=== PATIENT | male | born 1950 | race Caucasian/White ===

== ENCOUNTER 2020-07-28 11:19 | Outpatient (REF) | payer MEDICARE, MEDICAID, SELFPAY ==
[2020-07-29 11:12] LABS: Free Prostate Spec Ag 1.1 ng/mL; Percent Free Prostate Spec Ag 19 % (calc) (>25); Prostate Specific Ag Total 5.9 ng/mL (< OR = 4.0)
== END 2020-07-28 11:20 | disposition home or self-care (01) ==
LOC: HO.HMGCX 11:19
PROVIDERS: PCP Internal Medicine; Visit Provider Urology
DX: N40.1 Benign prostatic hyperplasia with lower urinary tract symptoms (principal); R35.1 Nocturia; Z87.898 Personal history of other specified conditions; Z12.5 Encounter for screening for malignant neoplasm of prostate
CPT/HCPCS: 84153; 84154

== ENCOUNTER → 2020-08-05 14:20 | Outpatient (BNVA) | payer MEDICARE, MEDICAID, SELFPAY | PROVIDERS: PCP Internal Medicine; Visit Provider Urology | DX: N40.1 Benign prostatic hyperplasia with lower urinary tract symptoms (principal); N13.8 Other obstructive and reflux uropathy; R35.1 Nocturia; R97.20 Elevated prostate specific antigen [PSA]; Z79.899 Other long term (current) drug therapy | CPT/HCPCS: 51798; 81002; 99212 ==

== ENCOUNTER 2020-09-27 15:08 | Outpatient (REF) | payer MEDICARE, MEDICAID, SELFPAY ==
[2020-09-27 17:28] LABS: PSA,Total (Free>4and<10) 2.94 ng/mL (0.00-4.00)
== END 2020-09-27 15:09 | disposition home or self-care (01) ==
LOC: HO.HMGCLDS 15:08
PROVIDERS: PCP Internal Medicine; Visit Provider Urology
DX: N40.1 Benign prostatic hyperplasia with lower urinary tract symptoms (principal); N13.8 Other obstructive and reflux uropathy; Z12.5 Encounter for screening for malignant neoplasm of prostate
CPT/HCPCS: 36415; 84153

== ENCOUNTER → 2020-10-06 13:09 | Outpatient (BNVA) | payer MEDICARE, MEDICAID, SELFPAY | PROVIDERS: PCP Internal Medicine; Visit Provider Urology | DX: R39.15 Urgency of urination (principal); R35.1 Nocturia | CPT/HCPCS: Q3014 ==

== ENCOUNTER → 2020-11-03 10:57 | Outpatient (BNVA) | payer MEDICARE, MEDICAID, SELFPAY | PROVIDERS: PCP Internal Medicine; Visit Provider Urology | DX: Z76.89 Persons encountering health services in other specified circumstances (principal) | CPT/HCPCS: Q3014 ==

== ENCOUNTER 2020-12-23 15:15 | Outpatient (REF) | payer MEDICARE, MEDICAID, SELFPAY ==
--- NOTE | ~2020-12-23 | XR_ITS ---
EXAMINATION: XR CHEST CLINICAL INFORMATION: Shortness of breath. Evaluate for pneumonia. COMPARISON: Chest CT February 2020. X-ray February 2020. TECHNIQUE: 2 views of the chest were obtained. FINDINGS: No significant abnormality is noted involving the heart, lungs, mediastinum, bony thorax or soft tissues. XR/XR chest 2V IMPRESSION: Unremarkable examination.
== END 2020-12-23 15:16 | disposition home or self-care (01) ==
LOC: HO.HMGCX 15:15
PROVIDERS: PCP Internal Medicine; Visit Provider Internal Medicine
DX: R06.02 Shortness of breath (principal)
CPT/HCPCS: 71046

== ENCOUNTER → 2021-05-05 15:31 | Outpatient (BNVA) | payer MEDICARE, MEDICAID, SELFPAY | PROVIDERS: PCP Internal Medicine; Visit Provider Urology | DX: R39.15 Urgency of urination (principal); R35.1 Nocturia; R97.20 Elevated prostate specific antigen [PSA] | CPT/HCPCS: 51798; 99212 ==

== ENCOUNTER → 2021-07-11 15:30 | Outpatient (BNVA) | payer MEDICARE, MEDICAID, SELFPAY | PROVIDERS: PCP Internal Medicine; Visit Provider Urology | DX: N52.9 Male erectile dysfunction, unspecified (principal); R39.15 Urgency of urination; R35.1 Nocturia; N40.1 Benign prostatic hyperplasia with lower urinary tract symptoms; N13.8 Other obstructive and reflux uropathy | CPT/HCPCS: 51798; 99212 ==

== ENCOUNTER 2021-08-14 09:21 | Outpatient (REF) | payer MEDICARE, MEDICAID, SELFPAY ==
--- NOTE | ~2021-08-14 | XR_ITS ---
EXAMINATION: XR CHEST CLINICAL INFORMATION: Fatigue. COMPARISON: Chest 12/23/2020 TECHNIQUE: 2 views of the chest were obtained. FINDINGS: The lungs are well-expanded and clear. The heart size and pulmonary vascularity is normal. No gross bony pneumonitis seen. There is cardiac monitoring hardware overlying the left upper chest Since the last study. XR/XR chest 2V IMPRESSION: No acute cardiopulmonary process seen.
[2021-08-14 11:22] LABS: MANUAL DIFF FLAG NO
[2021-08-14 11:53] LABS: Basophils Absolute Auto 0.1 X10*3/uL (0.0-0.2); Basophils Percent Auto 0.7 % (0-2); Eosinophils Absolute Auto 0.3 X10*3/uL (0.0-0.4); Eosinophils Percent Auto 4.1 % (0-4); Hematocrit 35.7 % (42.0-52.0); Hemoglobin 11.1 g/dl (14.0-18.0); Imm Gran Abs Auto 0.04 X10*3/uL (0.00-0.03); Imm Gran Pct Auto 0.5 % (0.0-0.4); Lymphocytes Absolute Auto 1.6 X10*3/uL (1.2-4.9); Lymphocytes Percent Auto 22.1 % (20-40); Mean Corpuscular HGB Conc 31.1 g/dl (31.0-36.0); Mean Corpuscular Hemoglobin 24.6 pg (27.0-33.0); Mean Platelet Volume 11.8 fL (9.4-12.4); Monocytes Absolute Auto 0.8 X10*3/uL (0.1-1.2); Monocytes Percent Auto 10.4 % (2-11); Neutrophils Absolute Auto 4.5 x10*3/uL (2.0-8.3); Neutrophils Percent Auto 62.2 % (45-73); Platelet Count 325 X10*3/uL (160-400); Red Blood Count 4.52 X10*6/uL (4.60-5.80); Red Cell Distribution Width 15.9 % (11.0-16.0); White Blood Count 7.3 X10*3/uL (4.8-10.8)
[2021-08-14 12:20] LABS: Anion Gap 12 (12-20); Blood Urea Nitrogen 18 mg/dL (9-16); Calcium 9.8 mg/dL (8.4-10.2); Carbon Dioxide 27 mmol/L (22-29); Chloride 104 mmol/L (96-108); Estimated Glomerular Filt Rate 48; Glucose Fasting 170 mg/dL (60-99); Potassium 4.3 mmol/L (3.3-5.1); Sodium 139 mmol/L (135-145)
== END 2021-08-14 09:22 | disposition home or self-care (01) ==
LOC: HO.HMGCLDS 09:21
PROVIDERS: Visit Provider Internal Medicine
DX: I50.9 Heart failure, unspecified (principal); R53.83 Other fatigue; E11.9 Type 2 diabetes mellitus without complications; Z79.4 Long term (current) use of insulin
CPT/HCPCS: 36415; 71046; 80048; 85025

== ENCOUNTER 2021-09-07 11:04 | Outpatient (REF) | payer MEDICARE, MEDICAID, SELFPAY ==
--- NOTE | ~2021-09-07 | XR_ITS ---
EXAMINATION: XR CHEST CLINICAL INFORMATION: Hypoxia COMPARISON: August 14, 2021 and December 23, 2020 TECHNIQUE: 2 views of the chest were obtained. FINDINGS: No significant abnormality is noted involving the heart, lungs, mediastinum, bony thorax or soft tissues. XR/XR chest 2V IMPRESSION: No acute disease.
== END 2021-09-07 11:05 | disposition home or self-care (01) ==
LOC: HO.HMGCX 11:04
PROVIDERS: PCP Internal Medicine; Visit Provider Internal Medicine
DX: R09.02 Hypoxemia (principal)
CPT/HCPCS: 71046

== ENCOUNTER 2021-09-28 15:00 | Outpatient (REF) | payer MEDICARE, MEDICAID, SELFPAY ==
--- NOTE | 2021-09-28 | PFT_ITS ---
INDICATION: COPD. SPIROMETRY: FEV1 to FVC of 81% with an FEV1 of 3.18 L which is 104% predicted, an FVC of 3.91 L, which is 94% predicted. No significant response to bronchodilators noted. Maximum voluntary ventilation 115% predicted. LUNG VOLUMES: Total lung capacity 90% predicted with an expiratory reserve volume of 22% predicted, likely secondary to an elevated BMI. DIFFUSION CAPACITY: DLCO 70% predicted. COMPARISONS: None. INTERPRETATION: No obstructive nor restrictive ventilatory defects identified. No significant response to bronchodilators noted. Normal maximum voluntary ventilation. Lung volumes are within normal limits except for decrease in the ERV secondary to an elevated BMI. In addition to that, the patient does have an isolated mild diffusion impairment. Clinical correlation warranted. MD MANDIE Robb/MODGayle / [id number]
== END 2021-09-28 15:01 | disposition home or self-care (01) ==
LOC: HO.RESP 15:00
PROVIDERS: PCP Internal Medicine; Visit Provider Internal Medicine
DX: J44.9 Chronic obstructive pulmonary disease, unspecified (principal); E11.9 Type 2 diabetes mellitus without complications; Z79.4 Long term (current) use of insulin
CPT/HCPCS: 94060; 94727; 94729

== ENCOUNTER → 2022-01-16 15:51 | Outpatient (BNVA) | payer OTHER, SELFPAY | PROVIDERS: PCP Internal Medicine; Visit Provider Urology | DX: N40.1 Benign prostatic hyperplasia with lower urinary tract symptoms (principal); N13.8 Other obstructive and reflux uropathy; R35.1 Nocturia; R39.15 Urgency of urination; N52.9 Male erectile dysfunction, unspecified | CPT/HCPCS: 51798; 99212 ==

== ENCOUNTER 2022-01-31 15:42 | Outpatient (REF) | payer OTHER, SELFPAY ==
--- NOTE | ~2022-01-31 | XR_ITS ---
EXAMINATION: XR FOOT, LEFT CLINICAL INFORMATION: Attention great toe COMPARISON: None TECHNIQUE: AP, lateral, and oblique views of the left foot. FINDINGS: There is hallux valgus deformity first metatarsophalangeal joint with mild periarticular spurring. No visible acute fracture or bony erosive changes. There is mild first MTP joint soft tissue swelling. Rest of the left foot appears unremarkable. The ankle mortise and subtalar joints are normal. There is a moderate size calcaneal heel enthesophyte. There is extensive vascular calcification present. XR/XR foot LT min 3V IMPRESSION: Hallux valgus deformity first MTP joint with mild soft tissue swelling. There is no bony erosive changes or gas seen in the foot or the great toe to suspect any abscess or osteomyelitis. Small calcaneal heel enthesophyte.
== END 2022-01-31 15:43 | disposition home or self-care (01) ==
LOC: HO.XRAY 15:42
PROVIDERS: PCP Internal Medicine; Visit Provider Internal Medicine
DX: M79.672 Pain in left foot (principal)
CPT/HCPCS: 73630

== ENCOUNTER 2022-03-05 09:44 | Outpatient (REF) | payer MEDICARE, SELFPAY ==
--- NOTE | ~2022-03-05 | XR_ITS ---
EXAMINATION: XR FOOT, LEFT CLINICAL INFORMATION: Left great toe pain and redness. COMPARISON: None TECHNIQUE: AP, lateral, and oblique views of the left foot. An indicator arrow points to the distal aspect of the first digit. FINDINGS: There is a mild hallux valgus deformity. Mild first metatarsophalangeal degenerative joint changes are seen. Mild soft tissue swelling is seen medially. The remainder the digits are intact. The tarsal bones are normally aligned. There is a small plantar calcaneal spur. Moderate to severe atherosclerosis is noted. XR/XR foot LT min 3V IMPRESSION: Mild hallux valgus deformity and and likely associated degenerative changes at the first metatarsophalangeal joint as detailed above. No definitive acute abnormality.
== END 2022-03-05 09:45 | disposition home or self-care (01) ==
LOC: HO.HMGCX 09:44
PROVIDERS: Visit Provider Internal Medicine
DX: M79.672 Pain in left foot (principal); E11.9 Type 2 diabetes mellitus without complications; Z79.4 Long term (current) use of insulin
CPT/HCPCS: 73630

== ENCOUNTER 2022-05-03 14:48 | Outpatient (REF) | payer MEDICARE, MEDICAID, SELFPAY ==
--- NOTE | ~2022-05-03 | XR_ITS ---
EXAMINATION: XR FOOT, LEFT CLINICAL INFORMATION: Evaluate for osteomyelitis, attention great toe COMPARISON: 03/05/2022 TECHNIQUE: AP, lateral, and oblique views of the left foot. 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 Mild soft tissue irregularity along the medial aspect of the interphalangeal joint. No cortical erosion or periosteal reaction to suggest osteomyelitis. No significant change. Large heel spur. Diffuse vascular calcifications. No acute osseous abnormality. XR/XR foot LT min 3V IMPRESSION: Hallux valgus and degenerative findings as described. No radiographic evidence of osteomyelitis.
== END 2022-05-03 14:49 | disposition home or self-care (01) ==
LOC: HO.HMGCX 14:48
PROVIDERS: PCP Internal Medicine; Visit Provider Internal Medicine
DX: M19.072 Primary osteoarthritis, left ankle and foot (principal); M20.12 Hallux valgus (acquired), left foot; M77.32 Calcaneal spur, left foot
CPT/HCPCS: 73630

== ENCOUNTER → 2022-06-12 10:55 | Outpatient (REF) | payer MEDICARE, MEDICAID, SELFPAY ==
--- NOTE | ~2022-06-12 | NM_ITS ---
EXAMINATION: THREE PHASE BONE SCAN CLINICAL INFORMATION: Open wound and pain involving the left great toe. Suspected osteomyelitis.. COMPARISON: Radiographs of the left foot done on 05/03/2022.. TECHNIQUE: Initial rapid sequence images were obtained over both feet during the bolus injection of 37 mCi [id number] MDP. Static images of both feet were then obtained 2.75 hours post injection. FINDINGS: On the initial flow sequences, asymmetric increased flow is identified to the region of the medial aspect of the tip of the left first toe. Subsequent blood pool images shows mild asymmetric persistent radiotracer activity overlying the medial aspect of the tip of the left first toe. Delayed images however shows no definite concordant increased radiotracer activity corresponding to the site of the increased flow and increased blood pool activity along the medial aspect of the tip of the left first toe. The findings are consistent with cellulitis. Incidental note is made of multifocal increased radiotracer activities on the delayed phase sequences seen involving bilateral feet, specifically both the first MTP joints and mid tarsal region, and to a lesser extent both knees, most consistent with degenerative and/or posttraumatic arthritic changes. NM/NM bone 3 phase IMPRESSION: 1. Abnormal study showing features most consistent with cellulitis involving the medial aspect of the tip of the left first toe. 2. Incidental note is made of arthritic changes involving first MTP joint and midtarsal regions of both feet and to a lesser extent both knees.
== END ==
LOC: HO.NUCMED 10:55
PROVIDERS: PCP Internal Medicine; Visit Provider Internal Medicine
DX: M86.9 Osteomyelitis, unspecified (principal)
CPT/HCPCS: 78315; A9503

== ENCOUNTER 2022-06-19 08:00 | Outpatient (RCR) | payer MEDICARE, MEDICAID, SELFPAY | END 2022-07-12 14:07 | disposition home or self-care (01) | LOC: HO.WCC 08:00 | PROVIDERS: PCP Internal Medicine; Visit Provider Physician Assistant | DX: E11.621 Type 2 diabetes mellitus with foot ulcer (principal); L97.522 Non-pressure chronic ulcer of other part of left foot with fat layer exposed; E11.40 Type 2 diabetes mellitus with diabetic neuropathy, unspecified; E11.22 Type 2 diabetes mellitus with diabetic chronic kidney disease; I12.9 Hypertensive chronic kidney disease with stage 1 through stage 4 chronic kidney disease, or unspecified chronic kidney disease; N18.9 Chronic kidney disease, unspecified; L84 Corns and callosities; Z86.73 Personal history of transient ischemic attack (TIA), and cerebral infarction without residual deficits; Z86.19 Personal history of other infectious and parasitic diseases | CPT/HCPCS: 97597; 99212 ==

== ENCOUNTER 2022-06-28 12:05 | Outpatient (REF) | payer MEDICARE, MEDICAID, SELFPAY ==
--- NOTE | ~2022-06-28 | XR_ITS ---
EXAMINATION: XR FINGER, LEFT CLINICAL INFORMATION: Swelling. Pain COMPARISON: None TECHNIQUE: 3 views of the left second digit. FINDINGS: Tiny osseous density seen adjacent to the terminal tuft of the second digit on one view possibly related to the volar soft tissues. It could reflect a tiny splinter or foreign body. I do not see an acute fracture. Please correlate with the mechanism of injury. The remainder of the second digit is intact. Alignment normal. Incidental note is made of a cystic or lucent focus at the base of the third metacarpal 8 mm possibly an enchondroma. XR/XR finger LT min 2V IMPRESSION: Possible splinter or radiopaque foreign body in the volar terminal tuft soft tissues
== END 2022-06-28 12:06 | disposition home or self-care (01) ==
LOC: HO.HMGCX 12:05
PROVIDERS: PCP Internal Medicine; Visit Provider Internal Medicine
DX: M79.645 Pain in left finger(s) (principal); M79.89 Other specified soft tissue disorders; Z91.81 History of falling
CPT/HCPCS: 73140

== ENCOUNTER 2022-07-08 08:36 | Emergency (ER) | payer MEDICARE, MEDICAID, SELFPAY ==
--- NOTE | ~2022-07-08 | CT_ITS ---
EXAMINATION: CT ABDOMEN AND PELVIS WITHOUT CONTRAST CLINICAL INFORMATION: Flank pain and hematuria COMPARISON: None TECHNIQUE: Multidetector volumetric imaging was performed from the superior aspect of the liver through the pubic symphysis. Sagittal and coronal reformatted images were obtained on the technologist's workstation. This CT examination was performed using dose optimization techniques as appropriate, variously including the following: *Automated exposure control *Adjustment of mA and/or kV according to patient size (this includes techniques or standardized protocols for targeted exams where dose is matched to indication/reason for exam; i.e. extremities or head) *Use of iterative reconstruction technique DLP: 858 mGy-cm FINDINGS: LUNG BASES: The visualized lung bases are unremarkable. LIVER, GALLBLADDER, AND BILIARY TREE: Liver is of low attenuation due to hepatic steatosis without intrahepatic masses or ductal dilatation seen The gallbladder is unremarkable with no evidence of radiopaque gallstones, gallbladder wall thickening, or obvious pericholecystic inflammatory changes. There is single punctate calcifications in CBD most likely choledocholithiasis. PANCREAS: Unremarkable. SPLEEN: Unremarkable. ADRENAL GLANDS: Unremarkable. KIDNEYS AND URETERS: There is mild perinephric stranding seen bilaterally without evidence of nephrolithiasis or hydroureteronephrosis. BLADDER: Urinary bladder is not completely distended with thick and irregular wall but no evidence of urolithiasis. GASTROINTESTINAL TRACT: The small and large bowel are unremarkable. The appendix is not seen. Scattered diverticula are seen through the sigmoid colon without evidence of diverticulitis. ABDOMINAL WALL: There is small fat-containing umbilical hernia. LYMPH NODES: Normal. VASCULAR: Unremarkable. PELVIC VISCERA: Unremarkable. OSSEOUS STRUCTURES: Patient is status post L3-L4 posterior fusion CT/CT abdomen pelvis wo IV con IMPRESSION: 1. No evidence of nephrolithiasis. 2. Most likely choledocholithiasis with single punctate stone. 3. Diffusely thickened wall of urinary bladder. 4. Postsurgical changes at the level of L3-L4. 5. Hepatic steatosis Fleischner guidelines were followed.
[2022-07-08 08:41] VITALS: BP 126/79; PULSE 100; RESP 19; TEMP 36.6; O2SAT 98; BMI 33.8
[2022-07-08 09:06] LABS: MANUAL DIFF FLAG NO
[2022-07-08 09:07] LABS: Basophils Absolute Auto 0.1 X10*3/uL (0.0-0.2); Basophils Percent Auto 0.4 % (0-2); Eosinophils Absolute Auto 0.3 X10*3/uL (0.0-0.4); Eosinophils Percent Auto 2.3 % (0-4); Hematocrit 42.3 % (42.0-52.0); Hemoglobin 13.8 g/dl (14.0-18.0); Imm Gran Abs Auto 0.04 X10*3/uL (0.00-0.03); Imm Gran Pct Auto 0.4 % (0.0-0.4); Lymphocytes Absolute Auto 1.4 X10*3/uL (1.2-4.9); Lymphocytes Percent Auto 12.6 % (20-40); Mean Corpuscular HGB Conc 32.6 g/dl (31.0-36.0); Mean Corpuscular Hemoglobin 26.4 pg (27.0-33.0); Mean Platelet Volume 11.5 fL (9.4-12.4); Monocytes Percent Auto 8.3 % (2-11); Neutrophils Absolute Auto 8.7 x10*3/uL (2.0-8.3); Platelet Count 247 X10*3/uL (160-400); Red Blood Count 5.22 X10*6/uL (4.60-5.80); Red Cell Distribution Width 14.7 % (11.0-16.0); White Blood Count 11.4 X10*3/uL (4.8-10.8)
[2022-07-08 09:12] LABS: INTERNATIONAL NORM RATIO 1.1 (0.9-1.1); Prothrombin Time 13.1 SEC (10.0-13.1)
[2022-07-08 09:15] LABS: Appearance Urine Turbid; Color Urine Red; Leukocyte Esterase Urine Moderate (2+) (Negative); Nitrite Urine Positive (Negative); PH 5.5 (5.0-9.0); Specific Gravity - Urine >= 1.030 (1.005-1.025); UMIC TRIGGER UACC YES; Urine Blood Large (3+) (Negative); Urine Ketones Negative (Negative); Urine Protein 300 (3+) mg/dL (Neg-Trace)
[2022-07-08 09:20] LABS: Bacteria Urine 4+ (None Seen); Hyaline Casts Urine 0-2 /LPF (0-2); RBC Urine >20 /HPF (0-2); Squamous Epithelial Cell Urine 0-2 /HPF (0-2); UACC Culture Trigger YES; WBC Urine >50 /HPF (0-5)
[2022-07-08 09:43] LABS: Anion Gap 20 (12-20); Blood Urea Nitrogen 22 mg/dL (9-16); Calcium 9.6 mg/dL (8.4-10.2); Carbon Dioxide 21 mmol/L (22-29); Chloride 102 mmol/L (96-108); Creatinine Clr Calc Pharmacy 50.1; Estimated Glomerular Filt Rate 43; Glucose Random 258 mg/dL (60-115); Potassium 4.5 mmol/L (3.3-5.1); Sodium 138 mmol/L (135-145)
--- NOTE | 2022-07-08 11:58 | ED.MALEGU ---
HPI - Male Genitourinary General Chief complaint: Urogenital-Male Stated complaint: Trouble voiding/Hematuria Time Seen by Provider: 07/08/22 11:56 Source: patient and old records reviewed Mode of arrival: ambulatory Limitations: no limitations History of Present Illness HPI Narrative: 71 yo male with hx of BPH, eliquis on DVT, CVA, HLD, DM, comes in with dysuria and urinary frequency - hematuria x 1 day. He states no recent trauma, this has never happened before. Normal routine recently, no catheterizations. No prior kidney stones. MD Complaint: other (hematuria, urinary frequency.) Onset (ago): day(s) (1) Duration: intermittent Location: penis Severity: mild Quality: burning Relieving factors: none Exacerbating factors: urination Associated symptoms: Reports blood in urine and dysuria Related Data Home Medications Medication Instructions Recorded Confirmed apixaban 5 mg tablet 5 mg PO BID 08/05/20 08/05/20 doxazosin 4 mg tablet 4 mg PO DAILY 08/05/20 08/05/20 ketorolac 0.5 % eye drops drp ophthalmic (eye) 08/05/20 08/05/20 lisinopril 2.5 mg tablet 2.5 mg PO DAILY 08/05/20 08/05/20 metoprolol tartrate 25 mg tablet 25 mg PO BID 08/05/20 08/05/20 pantoprazole 40 mg tablet,delayed 40 mg PO DAILY 08/05/20 08/05/20 release atorvastatin 40 mg tablet 40 mg PO DAILY 10/06/20 metformin 1,000 mg tablet 1,000 mg PO BID 10/06/20 insulin glargine 100 unit/mL (3 30 unit subcut BEDTIME 11/03/20 mL) subcutaneous pen empagliflozin 25 mg tablet 25 mg PO DAILY 05/05/21 (Jardiance) finasteride 5 mg tablet 5 mg PO DAILY 05/05/21 fludrocortisone 0.1 mg tablet mg PO 05/05/21 gabapentin 100 mg capsule mg PO TID PRN 05/05/21 midodrine 5 mg tablet mg PO 05/05/21 magnesium oxide 400 mg (241.3 mg 400 mg PO BID 07/11/21 magnesium) tablet empagliflozin 25 mg tablet 25 mg PO DAILY 01/16/22 (Jardiance) potassium chloride 10 mEq 10 meq PO DAILY 01/16/22 tablet,extended release Previous Rx's Medication Instructions Recorded mirabegron 25 mg tablet,extended 25 mg PO DAILY 30 days #30 tabs 05/05/21 release 24 hr (Myrbetriq) tadalafil 20 mg tablet 10 mg PO .PRN sexual activity 90 07/11/21 days #12 tabs mirabegron 25 mg tablet,extended 25 mg PO DAILY 90 days #90 tabs 01/23/22 release 24 hr (Myrbetriq) cefuroxime axetil 250 mg tablet 250 mg PO BID 10 days #20 tabs 07/08/22 Allergies Allergy/AdvReac Type Severity Reaction Status Date / Time almond [ALMONDS] Allergy Severe THROAT Verified 01/16/22 15:54 CLOSES pecan nut [PECAN] Allergy Severe THROAT Verified 01/16/22 15:54 CLOSES almonds/ pecans Allergy Unknown Unknown Uncoded 05/05/21 15:41 Review of Systems Review of Systems: Constitutional : No Weight loss, No Fever, No Chills ENT/Mouth : No sore throat, No Rhinorrhea Eyes: No Swelling, No Redness Cardiovascular : No Chest Pain, No SOB, NoEdema Respiratory : No Cough, No Sputum, No Wheezing Gastrointestinal : no Nausea, no Vomiting, no Diarrhea, no abdominal Pain, No Hematochezia, No Melena Genitourinary : pos Dysuria, pos Urinary Frequency, pos Hematuria, No Urgency Musculoskeletal : No joint pain, No Myalgias, No Joint Swelling Skin : No Skin Lesions, No rash Neuro : No Weakness, No Numbness, No Dizziness, No Headache Psych : No Anxiety/Panic, No Depression Heme/Lymph: No Bruising, No Lymphadenopathy Endocrine : No Polyuria, No Polydipsia All other systems reviewed and are negative. [facility] Past Medical History Medical History BPH (benign prostatic hyperplasia) CVA (cerebral vascular accident) DVT (deep venous thrombosis) Enlarged prostate without lower urinary tract symptoms (luts) Erectile dysfunction Frequency-urgency syndrome History of elevated PSA Subacute osteomyelitis of right foot Surgical History History of surgery Social History Social History Patient Tobacco Use Status: Tobacco use Unknown Use of substances other than those prescribed or required for medical reasons: No Advance Directives: No Advance Directives Information Provided: Yes Physical Exam Vital Signs: Vital Signs: Last Vital Signs Temp 98 F 07/08/22 08:41 Pulse 67 07/08/22 15:24 Resp 17 07/08/22 15:24 BP 120/54 L 07/08/22 13:42 Pulse Ox 99 07/08/22 15:24 O2 Del Method 07/08/22 13:42 BMI result Body Mass Index 33.8 Appearance: Alert. Oriented X3. No acute distress. Eyes: Pupils equal, round and reactive to light. ENT: Pharynx normal. Neck: Normal inspection. Neck supple. CVS: Normal heart rate and rhythm. Pulses normal. Respiratory: No respiratory distress. Breath sounds normal. Abdomen: Soft and nontender. Skin: Skin warm and dry. Normal skin color. Normal skin turgor. Extremities: No lower extremity edema. L foot in boot Neuro: Oriented X 3. No motor deficit. No sensory deficit. Course Course Course Narrative: not retaining - able to void, I am not suspecting clinical choledocholithiasis but will run by GI - he has normal labs and no RUQ pain ?incidental finding or calcification given no pain needs MRCP tomorrow per Dr. Landa - patient has no pain wants to go home no WBC count normal LFTs will order outpatient MRCP for tomorrow - trying to coordinate with MRI now patient does not want not want to stay, no issues voiding, no clots here, light tea colored urine outpatient MRI form and screening form done - faxed to MRI MDM - Male Genitourinary MDM Narrative Medical decision making narrative: 71 yo male with hx of BPH, eliquis on DVT, CVA, HLD, DM, comes in with dysuria and urinary frequency - hematuria x 1 day at this time will need basic labs, UA, CT scan for stone/mass. IV ceftriaxone for UTI. He has no systemic symptoms. May need irrigation if he is retaining. Lab Data Result diagrams: 07/08/22 09:02 07/08/22 09:02 Labs: Lab Results 07/08/22 07/08/22 07/08/22 Range/Units 09:02 09:02 09:02 WBC 11.4 H (4.8-10.8) X10*3/uL RBC 5.22 (4.60-5.80) X10*6/uL Hgb 13.8 L D (14.0-18.0) g/dl Hct 42.3 (42.0-52.0) % MCV 81.0 (80.0-98.0) fL MCH 26.4 L (27.0-33.0) pg MCHC 32.6 (31.0-36.0) g/dl RDW 14.7 (11.0-16.0) % Plt Count 247 (160-400) X10*3/uL MPV 11.5 (9.4-12.4) fL Immature Gran % (Auto) 0.4 (0.0-0.4) % Neut % (Auto) 76.0 H (45-73) % Lymph % (Auto) 12.6 L (20-40) % Pepin % (Auto) 8.3 (2-11) % Eos % (Auto) 2.3 (0-4) % Baso % (Auto) 0.4 (0-2) % Lymph # (Auto) 1.4 (1.2-4.9) X10*3/uL Pepin # (Auto) 1.0 (0.1-1.2) X10*3/uL Eos # (Auto) 0.3 (0.0-0.4) X10*3/uL Baso # (Auto) 0.1 (0.0-0.2) X10*3/uL Abs Immat Gran (auto) 0.04 H (0.00-0.03) X10*3/uL Absolute Neuts (auto) 8.7 H (2.0-8.3) x10*3/uL Absolute Nucleated RBC 0.000 (0.0-0.012) X10*3/uL Nucleated RBC % (auto) 0.0 (0.0-0.2) /100WBC PT 13.1 (10.0-13.1) SEC INR 1.1 (0.9-1.1) Sodium 138 (135-145) mmol/L Potassium 4.5 (3.3-5.1) mmol/L Chloride 102 (96-108) mmol/L Carbon Dioxide 21 L (22-29) mmol/L Anion Gap 20 (12-20) BUN 22 H (9-16) mg/dL Creatinine 1.60 H (0.5-1.4) mg/dL Estim Creat Clear Calc 50.1 Estimated GFR 43 Random Glucose 258 H (60-115) mg/dL Lactic Acid (0.5-2.0) mmol/L Calcium 9.6 (8.4-10.2) mg/dL Magnesium 1.9 (1.6-2.6) mg/dL Total Bilirubin 0.4 (0.0-1.0) mg/dL Direct Bilirubin 0.2 (0.0-0.5) mg/dL AST 27 (5-37) U/L ALT 36 (0-40) U/L Alkaline Phosphatase 103 (39-117) U/L Total Protein 7.5 (6.5-8.0) g/dL Albumin 4.3 (3.5-5.0) g/dL Urine Color Urine Appearance Urine pH (5.0-9.0) Ur Specific [place] (1.005-1.025) Urine Protein (Neg-Trace) mg/dL Urine Glucose (UA) (Negative) mg/dL Urine Ketones (Negative) mg/dL Urine Blood (Negative) Urine Nitrite (Negative) Ur Leukocyte Esterase (Negative) Urine RBC (0-2) /HPF Urine WBC (0-5) /HPF Ur Squamous Epith Cells (0-2) /HPF Urine Bacteria (None Seen) Hyaline Casts (0-2) /LPF COVID-19 (MANUEL) (Negative) COVID-19 Clin Com 07/08/22 07/08/22 07/08/22 Range/Units 09:02 12:19 15:27 WBC (4.8-10.8) X10*3/uL RBC (4.60-5.80) X10*6/uL Hgb (14.0-18.0) g/dl Hct (42.0-52.0) % MCV (80.0-98.0) fL MCH (27.0-33.0) pg MCHC (31.0-36.0) g/dl RDW (11.0-16.0) % Plt Count (160-400) X10*3/uL MPV (9.4-12.4) fL Immature Gran % (Auto) (0.0-0.4) % Neut % (Auto) (45-73) % Lymph % (Auto) (20-40) % Pepin % (Auto) (2-11) % Eos % (Auto) (0-4) % Baso % (Auto) (0-2) % Lymph # (Auto) (1.2-4.9) X10*3/uL Pepin # (Auto) (0.1-1.2) X10*3/uL Eos # (Auto) (0.0-0.4) X10*3/uL Baso # (Auto) (0.0-0.2) X10*3/uL Abs Immat Gran (auto) (0.00-0.03) X10*3/uL Absolute Neuts (auto) (2.0-8.3) x10*3/uL Absolute Nucleated RBC (0.0-0.012) X10*3/uL Nucleated RBC % (auto) (0.0-0.2) /100WBC PT (10.0-13.1) SEC INR (0.9-1.1) Sodium (135-145) mmol/L Potassium (3.3-5.1) mmol/L Chloride (96-108) mmol/L Carbon Dioxide (22-29) mmol/L Anion Gap (12-20) BUN (9-16) mg/dL Creatinine (0.5-1.4) mg/dL Estim Creat Clear Calc Estimated GFR Random Glucose (60-115) mg/dL Lactic Acid 1.2 (0.5-2.0) mmol/L Calcium (8.4-10.2) mg/dL Magnesium (1.6-2.6) mg/dL Total Bilirubin (0.0-1.0) mg/dL Direct Bilirubin (0.0-0.5) mg/dL AST (5-37) U/L ALT (0-40) U/L Alkaline Phosphatase (39-117) U/L Total Protein (6.5-8.0) g/dL Albumin (3.5-5.0) g/dL Urine Color Red A Urine Appearance Turbid Urine pH 5.5 (5.0-9.0) Ur Specific [place] >= 1.030 H (1.005-1.025) Urine Protein 300 (3+) H (Neg-Trace) mg/dL Urine Glucose (UA) See Note (Negative) mg/dL Urine Ketones Negative (Negative) mg/dL Urine Blood Large (3+) H (Negative) Urine Nitrite Positive H (Negative) Ur Leukocyte Esterase Moderate (2+) H (Negative) Urine RBC >20 H (0-2) /HPF Urine WBC >50 H (0-5) /HPF Ur Squamous Epith Cells 0-2 (0-2) /HPF Urine Bacteria 4+ (None Seen) Hyaline Casts 0-2 (0-2) /LPF COVID-19 (MANUEL) Negative (Negative) COVID-19 Clin Com See Note Discharge Plan Discharge Clinical Impression: Acute UTI Hematuria Qualifiers: Hematuria type: gross Qualified Code(s): R31.0 - Gross hematuria Patient Disposition: Home, Self-Care Additional Instructions: return to ED for any worsening symptoms or concerns hold your eliquis tonight, start antibiotic in the morning you possibly have a small stone in one of the ducts near gallbladder - outpatient MRI ordered for tomorrow expect a call around 9am if you cannot void or bleeding worsens/large clots please come back to the ED Prescriptions: New cefuroxime axetil 250 mg tablet 250 mg PO BID 10 Days Qty: 20 0RF No Action Myrbetriq 25 mg tablet extended release 24 hr 25 mg PO DAILY 90 Days Qty: 90 3RF Eliquis 5 mg tablet 5 mg PO BID metoprolol tartrate 25 mg tablet 25 mg PO BID doxazosin 4 mg tablet 4 mg PO DAILY lisinopril 2.5 mg tablet 2.5 mg PO DAILY pantoprazole 40 mg tablet,delayed release (DR/EC) 40 mg PO DAILY ketorolac 0.5 % drops ophthalmic (eye) Lantus Solostar U-100 Insulin 100 unit/mL (3 mL) insulin pen 30 unit subcut BEDTIME Jardiance 25 mg tablet 25 mg PO DAILY fludrocortisone 0.1 mg tablet PO finasteride 5 mg tablet 5 mg PO DAILY gabapentin 100 mg capsule PO TID PRN midodrine 5 mg tablet PO Myrbetriq 25 mg tablet extended release 24 hr 25 mg PO DAILY 30 Days Qty: 30 1RF magnesium oxide 400 mg (241.3 mg magnesium) tablet 400 mg PO BID tadalafil 20 mg tablet 10 mg PO .PRN 90 Days Qty: 12 0RF metformin 1,000 mg tablet 1,000 mg PO BID atorvastatin 40 mg tablet 40 mg PO DAILY potassium chloride 10 mEq tablet extended release 10 meq PO DAILY Jardiance 25 mg tablet 25 mg PO DAILY Referrals: Wilian Saunders MD [Physician] - 3 days Interventions: ED Discharge Assessment Last Done: 07/08/22 15:46 Discharge Date/Time: 07/08/22 15:47
[2022-07-08 12:08] LABS: Alanine Aminotransferase 36 U/L (0-40); Albumin Level 4.3 g/dL (3.5-5.0); Alkaline Phosphatase 103 U/L (39-117); Aspartate Amino Transferase 27 U/L (5-37); Bilirubin Direct 0.2 mg/dL (0.0-0.5); Bilirubin Total 0.4 mg/dL (0.0-1.0); Magnesium 1.9 mg/dL (1.6-2.6); Total Protein 7.5 g/dL (6.5-8.0)
--- OUTSIDE RECORDS SUMMARY | 2022-07-08 12:26 | XMS_ITS | Encounter Summary ---
:1950 Author Organization Department of [facility] rs Address [address] [place] [id number] Support Name Relationship Address Phone THANIA BERGER Rosmery Unavailable [address] [place] [address] [place] [address] AMELIA BERGER Unavailable [address] [place] [address] Insurance Providers: All historical and current Section Date Range: From patient's date of to the date document was created.This section includes the names of all active insurance providers for the patient. Insurance Type of Plan Start of End of Group Member Insurance Policy P atient's Provider Coverage Name Policy Policy Number ID Provider's Strickland's Relationship Coverage Coverage Telephone Name to Policy Number Strickland AARP INS PRESCRIPT MEDIC Sep 16, PDPIND [id number] [phone] YESSI BERGERZhane PATIENT ION ARE D 2017 [id number] IS MEDICAID MEDICAID [facility] Jul 17, MEDICAI [id number] [phone] DAYAMI BERGER PATIENT EALTH [id number] IS STAND CHRISTOPHER MEDICARE MEDICARE PART Sep 16, PART A [id number] [phone] Rosmery BERGER PATIENT (WNR) (M) A [id number] 00 IS MEDICARE MEDICARE PART Sep 16, PART B [id number] [phone] Rosmery BERGER PATIENT (WNR) (M) B 2010A 00 IS MEDICARE MEDICARE PART Sep 16, PART A [id number] Rosmery BERGER PATIENT (WNR) (M) A 2010 [id number] 2 IS MEDICARE MEDICARE PART Sep 16, PART B [id number] Rosmery BERGER PATIENT (WNR) (M) B 2010 [id number] 2 IS Selected Encounter This section includes the information on record at ME for the Encounter. Date/Time Encounter Type Encounter Reason Provider Source Description Oct 26, 2021 DIABETIC CUSTOM PODIATRY ICD-10-CM E11.9 AMI SHIN 10:00 AM MOLDED SHOE Type 2 diabetes mellitus without complications with Provider Comments: Type 2 Diabetes Mellitus without Complications [facility] Encounter Template Text not used by ME Assessments - Encounter Diagnoses This section includes the primary and secondary diagnoses documented for the Encounter. Date/Time Primary/Secondary Diagnosis Name Provider Source Diagnosis Oct 26, 2021 PRIMARY Type 2 diabetes AMI SHIN [facility] 02:22 PM mellitus without complications Plan of Treatment: Future Appointments (+ 6 months) and Future Tests (+/- 45 days) The Plan of Treatment section includes future care activities for the patient [facility] This section includes future appointments and future orders which are active, pending orscheduled.Future Appointments This section includes appointments that were scheduled to occur 6 months from the date of the Encounter, up to a maximum of 20 appointments. The data comes from all [place] treatment facilities. Appointment Date/Time Appointment Type Appointment Facili ty Name Nov 01, 2021 03:00 PM [facility] Nov 10, 2021 10:00 AM [facility] Nov 13, 2021 09:00 AM [facility] Nov 16, 2021 02:30 PM [facility] Nov 16, 2021 03:00 PM [facility] Dec 21, 2021 03:30 PM [facility] Jan 05, 2022 03:30 PM [facility] January 23, 2022 03:00 PM [facility] Feb 14, 2022 08:00 AM [facility] Mar 06, 2022 03:00 PM [facility] Mar 09, 2022 12:00 PM [facility] Mar 23, 2022 01:30 PM [facility] Mar 26, 2022 04:00 PM [facility] Apr 02, 2022 04:00 PM [facility] Apr 17, 2022 03:15 PM [facility] Lab Results: +/- 30 days of the encounter This section includes the Chemistry and Hematology Lab Results on record with ME for the patient. Radiology Reports and Pathology Reports are provided separately, in subsequent sections.Lab Results This section contains the Chemistry/Hematology Results that were resulted 30 days before or 30 daysafter the date of the Encounter. Date/Time Source Result Type Result - Unit Interpretation Reference Range Comment Nov 16, 2021 [facility] BASIC METABOLIC PANEL Specimen Type: SERUM 02:27 PM [facility] (non-fasting) No comment enter ed. Ordering Provid er: DELMER STALLINGS Report Released Date/Time: Oct 25, 2021 12:46 PM Reporting Lab: [facility] [address] [facility] [address] Performing Lab: [facility] [address] [facility] [address] UREA NITROGEN 27 H 7-25 GLUCOSE 349 H 65-100 SODIUM 135 135-145 POTASSIUM 4.4 3.5-5.0 CHLORIDE 100 100-110 CO2 26 20-30 CREATININE, Serum 1.89 H 0.50-1.40 eGFR (IDMS) 36 L >60 Oct 18, 2021 10:04 AM [facility] PSA Specimen Type: SERUM Comment: *BASIC METABOLIC PANEL (fasting) Not Performed: Oct 18, 2021@10:05 b *BRAKE LINING MAKER Reason: DUP ORDER Ordering Provid er: AMBIKA KNIGHT Report Released Date/Time: May 11, 2021 01:37 PM Reporting Lab: [facility] [address] [facility] [address] Performing Lab: [facility] [address] [facility] [address] PSA 1.68 0.00-4.00 Oct 18, 2021 10:04 AM [facility] TSH Specimen Type: SERUM Comment: *BASIC METABOLIC PANEL (fasting) Not Performed: Oct 18, 2021@10:05 b *BRAKE [employer]ING MAKER Reason: DUP ORDER Ordering Provid er: AMBIKA KNIGHT Report Released Date/Time: May 11, 2021 01:37 PM Reporting Lab: [facility] [address] [facility] [address] Performing Lab: [facility] [address] [facility] [address] TSH 2.37 0.35-5.00 Oct 18, 2021 [facility] PANEL Specimen T ype: BLOOD 10:04 AM [facility] Comment: Testin g performed by NGSP certified Stallings Enzymatic with CV <2%. The Stallings HgA1C assay should not be used to diagnose or monitor diabetes in patients with altered red cell lifespan such a s homozygous hem oglobin variants, Hb SC, HbF>5% and hemolytic anemia. Heterozygous variants do not affect this assay, HbAS, HbAC, HbAD, HbAE, AbA2 Ordering Provid er: DELMER STALLINGS Report Released Date/Time: Jul 24, 2021 04:34 PM Reporting Lab: [facility] [address] [facility] [address] Performing Lab: [facility] [address] [facility] [address] HEMOGLOBIN A1C 9.7 H 4.0-5.6 Oct 18, 2021 10:04 [facility] LIPID PANEL FASTING Specimen Type: SERUM AM [facility] No comment enter ed. Ordering Provid er: DELMER STALLINGS Report Released Date/Time: Jul 24, 2021 04:34 PM Reporting Lab: [facility] [address] [facility] [address] Performing Lab: [facility] [address] [facility] [address] CHOLESTEROL 176 <7-199 TRIGLYCERIDE 179 H 0-150 LDL calculated 108 0-129 CHOL/HDL 5.5 HDL CHOLESTEROL 32 L 40-60 Oct 18, 2021 10:04 [facility] S pecimen Type: SERUM AM [facility] No comment enter ed. Ordering Provid er: MELANIA RAMOS Report Released Date/Time: Jun 28, 2021 09:09 AM Reporting Lab: [facility] [address] [facility] [address] Performing Lab: [facility] [address] [facility] [address] ALBUMIN 4.0 3.5-5.0 Oct 18, 2021 [facility] VITAMIN D (25-[place]) Specimen Type : SERUM 10:04 AM [facility] No comment enter ed. Ordering Provid er: MELANIA RAMOS Report Released Date/Time: Jun 28, 2021 09:09 AM Reporting Lab: [facility] [address] [facility] [address] Performing Lab: [facility] [address] [facility] [address] VITAMIN D (25-[place]) 37 20-50 Oct 18, 2021 [facility] BASIC METABOLIC PANEL Specimen Type: SERUM 10:04 AM [facility] (non-fasting) No comment enter ed. Ordering Provid er: MELANIA RAMOS Report Released Date/Time: Jun 28, 2021 09:09 AM Reporting [facility] [place] [facility] [address] [facility] [address] Performing Lab: [facility] [place] [facility] [address] [facility] [address] UREA NITROGEN 21 7-25 GLUCOSE 302 H 65-100 SODIUM 136 135-145 POTASSIUM 4.7 3.5-5.0 CHLORIDE 103 100-110 CO2 24 20-30 CREATININE, Serum 1.74 H 0.50-1.40 eGFR (IDMS) 39 L >60 Oct 18, 2021 10:[address] [facility] [place] CBC Specimen Type: BLOOD [facility] No comment enter ed. Ordering Provid er: MELANIA RAMOS Report Released Date/Time: Jun 28, 2021 09:09 AM Reporting Lab: [facility] [address] [facility] [address] Performing Lab: [facility] [place] [facility] [address] [facility] [address] WBC 7.69 4.50-11.00 RBC 5.16 4.23-5.66 HGB 12.9 12.8-17 HCT 40.7 39.2-50.4 MCV 78.9 L 82-99 MCHC 31.7 30.8-35.1 PLT 320 140-360 RDW-CV 17.8 H 12.0-16.0 MCH 25.0 L 26.2-32.6 Social History: Smoking Status (Most current) and Tobacco Use (All prior to encounter date) This section includes the most current, and the historical, smoking and tobacco-related health factors from the ME facility where the Encounter took place.Current Smoking Status This section includes the most current smoking, or tobacco-related health factor, from the ME facility where the Encounter took place. Date/Time Current Smoking Status Comment Facility February 03, 2019 10:28 AM VA-TOBACCO NEVER USED [facility] Tobacco Use History This section includes a history of the smoking, or tobacco- related health factors, that were collected on or before the date of the Encounter. The data comes from the ME facility where the Encounter took place. Date/Time Smoking Status/Tobacco Use Comment [facility] Jan 13, 2018 09:49 AM LIFETIME NON-TOBACCO USER [facility] Jan 04, 2017 10:17 AM LIFETIME NON-TOBACCO USER [facility] Dec 23, 2015 08:49 AM LIFETIME NON-TOBACCO USER [facility] Nov 27, 2005 02:55 PM LIFETIME NON-TOBACCO USER [facility] patient reportssmoking only crac zaira pickett January 22, 2003 10:42 AM LIFETIME NON-SMOKER [facility] Aug 18, 2001 01:54 PM LIFETIME NON-TOBACCO USER [facility] pt states he has never smoked May 14, 2001 02:23 PM LIFETIME NON-SMOKER [facility] Encounter Notes: All associated encounter notes This section contains the clinical notes associated to the Encounter. Date/Time Encounter Note(s) Provider Source Oct 26, 2021 02:21 PM PODIATRY NOTE: AMI SHIN [facility] TITLE: PODIATRY NOTE STANDARD TITLE: PODIATRY NOTE DATE OF NOTE: OCT 26, 2021@14:21 ENTRY DATE: OCT 26, 2021@14:21:13 AUTHOR: AMI SHIN EXP COSIGNER: URGENCY: STATUS: COMPLETED S: Pt presents for pickup of new therapeutic shanda es. O: No new foot health issues at this time. A:Type 2 Diabetes Mellitus without Complications P: Dispensed r Comfort [place] Plus 7210 size 9.5 Wide. They were checked for fit by palpating the lengt h, width and height in the toebox area. They were very comfortable and he wore them from the clinic. Pt was Instructed to make a follow up appt. in t he event the shoes do not fit properly-and to bring shoes to that visit. /jamal/ AMI SHIN [employer]IO OFFICER Signed: 10/26/2021 14:22
--- OUTSIDE RECORDS SUMMARY | 2022-07-08 12:26 | XMS_ITS | Encounter Summary ---
:1950 Author Organization Department of [facility] rs Address [address] [place] [id number] Support Name Relationship Address Phone THANIA BERGER [place] [address] AMELIA BERGER Unavailable [address] [place] [address] Insurance Providers: All historical and current Section [...] AARP INS PRESCRIPT MEDIC Sep 16, PDPIND [id number] [phone] YESSI BERGERZhane PATIENT ION ARE D 2017 251 [id number] IS MEDICAID MEDICAID [facility] Jul 17, MEDICAI [id number] YESSI BERGERZhane PATIENT EALTH 2014 D [id number] IS STAND CHRISTOPHER MEDICARE MEDICARE PART Sep 16, PART A [id number] [phone] Rosmery BERGER PATIENT (WNR) (M) A 2010 00 IS MEDICARE MEDICARE PART Sep 16, PART B [id number] [phone] Rosmery BERGER PATIENT (WNR) (M) B 2010 00 IS MEDICARE MEDICARE PART Sep 16, PART B [id number] Rosmery BERGER PATIENT (WNR) (M) B 2010 [id number] 2 IS MEDICARE MEDICARE PART Sep 16, PART A [id number] Rosmery BERGER PATIENT (WNR) (M) A 2010 [id number] 2 IS Selected Encounter This section includes the information on record at [place] for the Encounter. Date/Time Encounter Type Encounter Reason Provider Source Description Nov 01, 2021 Outpatient TELEPHONE/MEDICIN ICD-10-CM I12.9 RICHARDSH IR 03:00 PM Encounter E Hypertensive JOSEPH A chronic kidney disease w stg 1-4/unsp chr kdny with Provider Comments: Hypertensive Chronic Kidney Disease with Stage 1 through Stage 4 Chronic Kidney Disease, or unspecified Chronic Kidney Disease IHE Encounter Template Text not used by [place] Assessments - Encounter Diagnoses This section includes the primary and secondary diagnoses documented for the Encounter. Date/Time Primary/Secondary Diagnosis Name Provider Source Diagnosis Nov 01, 2021 PRIMARY Hypertensive JOVI RAMOS [place] CNT WSTRN 03:00 PM chronic kidney [facility] [place] [facility] disease w stg 1-4/unsp chr kdny Nov 01, 2021 SECONDARY Anemia in chronic JOVI RAMOS [place] CNTL W[facility] 03:00 PM kidney disease [facility] [place] [facility] Nov 01, 2021 [facility] disease, stage 3a [facility] [place] [facility] Nov 01, 2021 [facility]00 PM unspecified [facility] [place] [facility] Nov 01, 2021 SECONDARY Type 2 diabetes JOVI RAMOS [facility] WS TRN 03:00 PM mellitus w [facility] [place] [facility] diabetic chronic kidney disease Plan of Treatment: Future Appointments (+ 6 months) and Future Tests (+/- 45 days) The Plan of Treatment section includes future care activities for the patient from all [place] treatmentfacilities. This section includes future appointments and future orders which are active, pending orscheduled.Future Appointments This section includes appointments that were scheduled to occur 6 months from the date of the Encounter, up to a maximum of 20 appointments. The data comes from all [place] treatment facilities. Appointment Date/Time Appointment Type Appointment Facili ty Name Nov 10, 2021 10:00 AM [facility] [place] Nov 13, 2021 09:00 AM [facility] [place] Nov 16, 2021 02:30 PM [facility] [place] Nov 16, 2021 03:00 PM [facility] [place] Dec 21, 2021 03:30 PM [facility] [place] Jan 05, 2022 03:30 PM AM[facility]ULATORY MEDIC[facility] [place] [place] [facility] January 23, 2022 03:00 PM [facility] Feb 14, 2022 08:00 AM [facility] [place] [facility] Mar 06, 2022 03:00 PM [facility] Mar 09, 2022 12:00 PM [facility] Mar 23, 2022 01:30 PM [facility] Mar 26, 2022 04:00 PM [facility] Apr 02, 2022 04:00 PM [facility] Apr 17, 2022 03:15 PM [facility] Lab Results: +/- 30 days of the encounter This section includes the Chemistry and Hematology Lab Results on record with [place] for the patient. Radiology Reports and Pathology Reports are provided separately, in subsequent sections.Lab Results This section contains the Chemistry/Hematology Results that were resulted 30 days before or 30 daysafter the date of the Encounter. Date/Time Source Result Type Result - Unit Interpretation Reference Range Comment Nov 16, 2021 [facility] BASIC METABOLIC PANEL Specimen Type: SERUM 02:27 PM [facility] (non-fasting) No comment enter ed. 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 PROJECT ENGINEER Reason: DUP ORDER Ordering Provid er: AMBIKA KNIGHT Report Released Date/Time: May 11, 2021 01:37 PM Reporting Lab: [facility] [address] [address] Performing Lab: [facility] [place] [facility] [address] [facility] [address] PSA 1.68 0.00-4.00 Oct 18, 2021 10:04 AM [place] TSH Specimen Type: SERUM Comment: *BASIC METABOLIC PANEL (fasting) Not Performed: Oct 18, 2021@10:05 b *HVAC PROJECT ENGINEER Reason: DUP ORDER Ordering Provid er: AMBIKA KNIGHT Report Released Date/Time: May 11, 2021 01:37 PM Reporting Lab: [facility] [place] [facility] [address] [facility] [address] Performing Lab: [facility] [place] [facility] [address] [facility] [address] TSH 2.37 0.35-5.00 Oct 18, 2021 [facility] HEMOGLOBIN A1C PANEL Specimen T ype: BLOOD 10:04 AM [place] [facility] Comment: Testin g performed by NGSP [...] Jul 24, 2021 04:34 PM Reporting Lab: [facility] [place] [facility] [address] [facility] [address] Performing Lab: [facility] [place] [facility] [address] [facility] [address] HEMOGLOBIN A1C 9.7 H 4.0-5.6 Oct 18, 2021 10:04 [facility] LIPID PANEL FASTING Specimen Type: SERUM AM [place] [facility] No comment enter ed. Ordering Provid er: DELMER STALLINGS Report Released Date/Time: Jul 24, 2021 04:34 PM Reporting Lab: [facility] [place] [facility] [address] [facility] [address] Performing Lab: [facility] [place] [facility] [address] [facility] [address] CHOLESTEROL 176 <7-199 TRIGLYCERIDE 179 H 0-150 LDL calculated 108 0-129 CHOL/HDL 5.5 HDL CHOLESTEROL 32 L 40-60 Oct 18, 2021 10:04 [facility] [place] ALBUMIN S pecimen Type: SERUM AM [facility] No comment enter ed. Ordering Provid er: MELANIA RAMOS Report Released Date/Time: Jun 28, 2021 09:09 AM Reporting Lab: [facility] [place] [facility] [address] [facility] [address] Performing Lab: [facility] [place] [facility] [address] [facility] [address] ALBUMIN 4.0 3.5-5.0 Oct 18, 2021 [facility] BASIC METABOLIC PANEL Specimen Type: SERUM 10:04 AM [place] [facility] (non-fasting) No comment enter ed. Ordering Provid er: MELANIA RAMOS Report Released Date/Time: Jun 28, 2021 09:09 AM Reporting Lab: [facility] [place] [facility] [address] [facility] [address] Performing Lab: [facility] [place] [facility] [address] [facility] [address] UREA NITROGEN 21 7-25 GLUCOSE 302 H 65-100 SODIUM 136 135-145 POTASSIUM 4.7 3.5-5.0 CHLORIDE 103 100-110 CO2 24 20-30 CREATININE, Serum 1.74 H 0.50-1.40 eGFR (IDMS) 39 L >60 Oct 18, 2021 [facility] VITAMIN D (25-[place]) Specimen Type : SERUM 10:04 AM [place] [facility] No comment enter ed. Ordering Provid er: MELANIA RAMOS Report Released Date/Time: Jun 28, 2021 09:09 AM Reporting Lab: [facility] [place] [facility] [address] [facility] [address] Performing Lab: [facility] [place] [facility] [address] [facility] [address] VITAMIN D (25-[place]) 37 20-50 Oct 18, 2021 10:04 AM [facility] [place] CBC Specimen Type: BLOOD [facility] No comment enter ed. Ordering Provid er: MELANIA RAMOS Report Released Date/Time: Jun 28, 2021 09:09 AM Reporting Lab: [facility] [place] [facility] [address] [facility] [address] Performing Lab: [facility] [address] [facility] [address] WBC 7.69 4.50-11.00 RBC 5.16 4.23-5.66 HGB 12.9 12.8-17 HCT 40.7 39.2-50.4 MCV 78.9 L 82-99 MCHC 31.7 30.8-35.1 PLT 320 140-360 RDW-CV 17.8 H 12.0-16.0 MCH 25.0 L 26.2-32.6 Social History: Smoking Status (Most current) and Tobacco Use (All prior to encounter date) This section includes the most current, and the historical, smoking and tobacco-related health factors from the [place] facility where the Encounter took place.Current Smoking Status This section includes the most current smoking, or tobacco-related health factor, from the [place] facility where the Encounter took place. Date/Time Current Smoking Status Comment Facility May 11, 2021 01:18 PM VA-TOBACCO NEVER USED [facility] Encounter Notes: All associated encounter notes This section contains the clinical notes associated to the Encounter. Date/Time Encounter Note(s) Provider Source Nov 01, 2021 08:57 NEPHROLOGY E & M NOTE: [facility]IA RAMOS [facility] LOCAL TITLE: NEPHROLOGY NOTE [place] [facility] STANDARD TITLE: NEPHROLOGY E & M NOTE DATE OF NOTE: NOV 01, 2021@20:57 ENTRY DATE: NOV 01, 2021@20:57:13 AUTHOR: MELANIA RAOMS EXP COSIGNER: URGENCY: STATUS: COMPLETED Nephrology Note Follow-Up Consultation Problem:Chronic Kidney Disease STag e 3 History:71 year old diabetic male with a history of hypertension, perivascular disease(Claudication), hyperlipid, obesity with diabetic retinopathy presenting for c ontinue management of his renal disease. The patient still recovering from a stroke. He reports that for the past month he has had problems with very low blood pressure in the 60- 80/40 range with standing. He says it is manageable while sitting. He says was hospitalized and no one could determine the cause and what treatment m ay be beneficial. He report he has had Covid that did not requre hospitalization. He de nies any other new problems. Medications: Active and Recently Outpatient Medicatio ns (excluding Supplies): Active Outpatient Medications Status 1) ACCU-CHEK GUIDE ME (GLUCOSE) METER USE METER TO TEST ACTIVE BLOOD SUGARS DIRECTED BY PROVIDER 2) INSULIN,ASPART 100UN/ML KELLY FLEXPEN 3ML INJE CT 8 ACTIVE UNITS SUBCUTANEOUSLY EVERY MORNING AND INJECT 9 UNITS ONCE DAILY AT LUNCH AND INJECT 9 UNITS EV IRENE EVENING BEFORE SUPPER 3) INSULIN,GLARGINE 100 UNT/ML 3ML SOLOSTAR INJE CT 55 ACTIVE UNITS SUBCUTANEOUSLY ONCE DAILY FOR DIABETES 4) TADALAFIL 10MG TAB TAKE ONE TABLET BY MOUTH O NCE ACTIVE DAILY NEEDED Active Non-VA Medications Status 1) Non-VA APIXABAN 5MG TAB 5MG BY MOUTH ONCE MEMO LY ACTIVE 2) Non-VA ASPIRIN 81MG EC TAB 81MG BY MOUTH LEONARDA Y ACTIVE 3) Non-VA ATORVASTATIN CALCIUM 80MG TAB 80MG BY MOUTH AT ACTIVE BEDTIME 4) Non-VA DOXAZOSIN MESYLATE 8MG TAB 8 MG BY CAROLYNE TH AT ACTIVE BEDTIME 5) Non-VA FEXOFENADINE HCL 60MG TAB 60MG BY MOUT H ONCE ACTIVE DAILY 6) Non-VA FLUDROCORTISONE ACETATE 0.1MG TAB 0.1M G BY ACTIVE MOUTH TWICE DAILY 7) Non-VA MAGNESIUM OXIDE TAB 400MG BY MOUTH TWI CE DAILY ACTIVE 8) Non-VA METFORMIN HCL 500MG TAB 500MG BY MOUTH ONCE ACTIVE DAILY 9) Non-VA METOPROLOL TARTRATE 25MG TAB 25MG BY M OUTH ACTIVE TWICE DAILY 10) Non-VA MIDODRINE HCL 10MG TAB 10MG BY MOUTH TWICE ACTIVE DAILY 11) Non-VA OTHER CAP/TAB CBD OIL BY MOUTH ONCE D Y ACTIVE 12) Non-VA PANTOPRAZOLE NA 40MG EC TAB 40MG BY M OUTH ACTIVE EVERY MORNING 30 MINUTES BEFORE BREAKFAST 13) Non-VA VALSARTAN 40MG TAB 40MG BY MOUTH ONCE DAILY ACTIVE 14) Non-VA VITAMIN B COMPLEX CAP,ORAL BY MOUTH O N SATURDAY ACTIVE 18 Total Medications Review Of Systems: Assessment and Plans: Areas to address in the evaluation and managemen t of the patient's CKD and to reduce renal disease progression is as fo llows: #1. Chronic Kidney Disease Stage 3a: Review of t he patient's labs from Oct 18, 2021 showed a normal bicarb(27), Potassium(4.7), His creatinine was 1.26 in june has increased to 1.7 4. The increase in his creatinine may have been due to recent episodes of dropping blood pressure fo r the month. The BP drop does not respond to midodrine. The patient GFR was 57 has dropped to 39. there was no recent urine microalb/cr ratio to review. Elicia berrios the patient's GFR has dropped <40, will discuss with Dr. Stallings about the need to consider stopping his Metformin.The patient will return in 4 month s obtaining labs for that visit. #2. Hypertension: the patient for the past month the patient blood pressure reportedly has been 120/60 with sitting and drop ping to the 60-80 range with standing which has made it difficult to mobilize. He presently is on midodrine which he says has not helped. The patien t has been on Valsartan and Metoprolol both of which can cause his blood pressure to drop. Unable to determine what the patient is presently taking. His girlfriend who is a nurse manages his medications and he was not available at this [employer] appt. There has been report of patient's having problems with hypoten roro after having Covid which this patient has had. Will try to obtain an [facility] deb list of his medications. @3. Diabetes: The patient hgbA1c was 9.7. the go al is <7.5. It was 7.4 in June 2021. He is encouraged to continue his i nsulin, metformin,along with dietary adjustments to improve his hgbA1c. The g oal is <7.5. His glucose is presently being controlled w ith insulin which he is encouraged to continure. He should adhere a diabetic diet to help keep his g lucose undercontrol. 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 #4. Hyperlipidemia: The patient's lipid studies this Oct showed a cholesterol of 176, LDL of 1 08 and HDL of 32. He will continue his Atorvastatin and a heart healthy low fat diet. #5. Nutritional state/obesity: the patient's alb umin was 4.0 Oct which is normal. weight was 230 which is higher than ritu red. He is encouraged to exercise and decrease his intake. A heart healty low fat diet may be very beneficial. #6. Anemia: the patient's H/H= 12.9/40.7 p=79 th is Oct. His H/H is normal. #7. CKD-MBD: the patient presently has no histor y of bone pain. His recent labs from oct 2021 showed a VitD of 37, PTH of 93.4 and PO4 of 2.8. will obtain alkaline Phosphatase, calcium and Mag for f/u. This was a 20 minute visit > 50% of which was sp ent in counseling and coordination of care. Medication Reconciliation: Outpatient: Has the patient been taking medications as docu mented in the EMLR? YES: The patient has been taking medications as documented in the EMLR. Essential Medication List for Review used to co mplete this medication reconciliation. INCLUDED IN THIS LIST: Alphabetical list of act joe outpatient prescriptions dispensed from this [facility] (local) an d dispensed from another VA or DoD facility (remote) as well as inpatien t orders (local, pending and active), local clinic medications, locally documented non-VA medications, and local prescriptions that have or been discontinued in the past 90 days. - All changes in medications, including all non -VA/Herbal/OTC medications were entered into CPRS. - If there were any medications the patient shanda uld no longer take, they were discontinued. - The patient/caregiver was instructed to updat e this list, discard old lists, and take this list to the next appointme nt, whether with a VA or non-VA provider. /jamal/ MELANIA RAMOS M.D. [employer] INFORMATION CLERK Signed: 11/08/2021 16:10 Oct 24, 2021 10:54 TELEPHONE ENCOUNTER NOTE: ROCKY MCCAULEY [place] [facility] AM LOCAL TITLE: TELEPHONE NOTE/[facility] STANDARD TITLE: TELEPHONE ENCOUNTER NOTE DATE OF NOTE: OCT 24, 2021@10:54 ENTRY DATE: OCT 24, 2021@10:54:18 AUTHOR: ROCKY MCCAULEY EXP COSIGNER: URGENCY: STATUS: COMPLETED Called and reminded [place] of his Nephrology te l-x visit on 11-01-21 @1500. /jamal/ ROCKY Mccauley LPN LICENSED PRACTICAL NURSE Signed: 10/24/2021 10:54
--- OUTSIDE RECORDS SUMMARY | 2022-07-08 12:26 | XMS_ITS | Continuity of Care Document ---
:1950 Author Organization [facility] Care Team Providers Name Role Phone [facility] Unavailable Unavailable Problems Combined list of problems from Department of Defense and Veterans Affairs facilities. It does not include entries that were removed or entered in error. Problem Status Onset Problem Date of Comments Source Date Type Resolution MRSA SKIN INFECTION Active Condition [place] 009 Allergy to peanuts Active Condition [place] Background diabetic Active Condition [facility] retinopathy [facility] (ICD-9-CM 362.01) [place] [facility] Cataract, Cortical Active Condition V A [facility] (Senile) [facility] [place] [facility] Cataract, PSC/Post Active Condition V A [facility] Subcapsular [facility] [place] [facility] Cerebellar stroke Active Condition May 30 [place] syndrome 2019 Entered By: AMBIKA KNIGHT Comment: 03/2020 d/c summary scanned into [facility] Cervical Active Condition Sep 23 [facility] Radiculopathy 2006 Entered WST RN By: AMBIKA CASTANEDA [facility] Comment: s/p spinal surgery c7-t1. mri 07/21 [facility] Sep 23, 2006 Entered By: AMBIKA KNIGHT Comment: osteophyte complex mild mass effect on left and minimal Sep 23, 2006 Entered By: AMBIKA KNIGHT Comment: mass effect on right. prior surgery site without recurrent Sep 23, 2006 Entered By: AMBIKA KNIGHT Comment: herniation Chronic kidney Active Condition [place] disease Claudication (SNOMED Active Condition [place] 136226637) Cocaine abuse, Active Condition [place] [facility] continuous use Colorectal Cancer Active Condition May 23 S [facility] Screening Results 2010 Entered Documented and By: Reviewed (PV) AMBIKA KNIGHT Comment: colonoscopy 04/26 tics in sigmoid, '15 dr galloway +polyps Computed tomography Active Condition February 09 [place] result abnormal 2017 Entered By: AMBIKA KNIGHT Comment: ct angiogram 12/14/17 negative for PE. R lung nodules. scanned into [facility] Corneal Abrasion Active Condition [facility] (ICD-9-CM 918.1) [facility] [place] [facility] Coronary artery Active Condition [place] disease, s/p CT HCS Cyst, ganglion Active Condition [facility] [place] [facility] Depressive disorder Active Condition [facility] [facility] Depressive Disorder Active Condition [facility] NOS [facility] [place] [facility] Diabetes mellitus Active Condition [place] (SNOMED CT 88754881) Diabetic Active Condition [facility] Neuropathies [facility] [place] [facility] DM Active [facility] Elevated Prostate Active Condition Feb 17, [place] Specific antigen 2012 Entered [psa] By: AMBIKA KNIGHT Comment: prostate biopsy negative 01/26 Essential Active Condition [place] hypertension GERD * (ICD-9-CM Active Condition [place] 530.81) HTN Active Condition [facility] hyperlipidemia [facility] [place] [facility] Hyperlipidemia Active Condition [facility] (SNOM[place] CT 59390080) [facility] [place] [facility] Hypertension (SNOMED Active Condition [facility] 62074610) [facility] [place] [facility] 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[place] of Prostate with Urinary obstruction and other lower Urinar Impotence of organic Active Condition [place] origin (ICD-9-CM 607.84) Low back pain Active Condition Aug 06, [place] 2018 Entered By: AMBIKA KNIGHT Comment: mri ls spine 06/28/19 scanned into [facility] Low Back Pain * Active Condition [place] (ICD-9-CM 724.2) 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 nuclear stress test 05/26 no new ischemia Onychomycosis * Active Condition [facility] (ICD-9-CM 110.1) [facility] [place] [facility] Osteoarthritis Active Condition [place] Overweight Active Condition [place] Overweight (SNOMED Active Condition S [place] 398785769) Postsurgical Active Condition May 09 [facility] Percutaneous 2009 Entered Transluminal By: Coronary Angioplasty BRONWYN KNIGHT Status Comment: rca bare metal stent 04/25.LVgram hypokinesis/ak inesis infero May 09, 2010 Entered By: AMBIKA KNIGHT Comment: lateral region ef 50%. pharm. myocardial scan negative for Jul 09, 2013 Entered By: AMBIKA KNIGHT Comment: significant ischemia 06/28 Postsurgical Status Active Condition Oct 14, [place] of Cataract 2009 Entered Extraction By: AMBIKA KNIGHT Comment: right 09/25 Shoulder Pain Active Condition [facility] [place] [facility] Simple upper Active Condition May 23 [facility] Gastrointestinal 2010 Entered Endoscopy By: AMBIKA KNIGHT Comment: 04/26 inflammation duodenum/ge junction c/w gerd Type II diabetes Active Condition [facility] mellitus UTI Active Condition [facility] [place] [facility] Diagnosis: ICD-10-CM Active Diagnosis [place] L89.90 Pressure ulcer of unspecified site, unspecified stagewith Provider Comments: Pressure Ulcer of unspecified site, unspecified Stage Diagnosis: ICD-10-CM Active Diagnosis [facility] E11.9 Type 2 [facility] diabetes mellitus [place] without HCS complicationswith Provider Comments: Diabetes mellitus ([facility] [id number]) Diagnosis: ICD-10-CM [facility] Chronic kidney [facility] disease, [place] unspecifiedwith HCS Provider Comments: Chronic kidney disease ([facility] [id number]) Diagnosis: ICD-10-CM Active Diagnosis [facility] E11.8 Type 2 [facility]STRN diabetes mellitus [place] with unspecified HCS complicationswith Provider Comments: Type II diabetes mellitus ([facility] [id number]) Diagnosis: ICD-10-CM Active Diagnosis [place] L84 Corns and callositieswith Provider Comments: Corns and callosities Diagnosis: ICD-10-CM Active Diagnosis [place] M79.675 Pain in left toe(s)with Provider Comments: Pain in left Toe(s) Diagnosis: ICD-10-CM Active Diagnosis [place] L02.612 Cutaneous abscess of left footwith Provider Comments: Cutaneous Abscess of left Foot Diagnosis: ICD-10-CM Active Diagnosis [place] S90.412S Abrasion, left great toe, sequelawith Provider Comments: Abrasion, left Great Toe, Sequela Diagnosis: ICD-10-CM Active Diagnosis [place] E11.51 Type 2 diabetes w diabetic peripheral angiopath w/o gangrenewith Provider Comments: Type 2 Diabetes Mellitus with Diabetic Peripheral Angiopathy without Gangrene Diagnosis: ICD-10-CM Active Diagnosis [facility] N18.31 Chronic [facility] kidney disease, [place] stage 3awith HCS Provider Comments: Chronic kidney disease, stage 3a Diagnosis: ICD-10-CM Active Diagnosis [facility] E11.65 Type 2 [facility] diabetes mellitus [place] with HCS hyperglycemiawith Provider Comments: Type 2 diabetes mellitus with hyperglycemia Diagnosis: ICD-10-CM Active Diagnosis MD CNTRL Z51.81 Encounter for WSTRN therapeutic drug [place] level monitoringwith [facility] Provider Comments: Therapeutic Drug Level Monitoring Diagnosis: ICD-10-CM Active Diagnosis [place] I95.1 Orthostatic hypotensionwith Provider Comments: Orthostatic Hypotension Diagnosis: ICD-10-CM Active Diagnosis [place] L60.0 Ingrowing nailwith Provider Comments: Ingrowing Nail Diagnosis: ICD-10-CM Active Diagnosis [facility] I12.9 Hypertensive W STRN chronic kidney [place] disease w stg HCS 1-4/unsp chr kdnywith Provider Comments: Hypertensive Chronic Kidney Disease with Stage 1 through Stage 4 Chronic Kidney Disease, or unspecified Chronic Kidney Disease Diagnosis: ICD-10-CM Active Diagnosis [place] E11.9 Type 2 diabetes mellitus without complicationswith Provider Comments: Type 2 Diabetes Mellitus without Complications Diagnosis: ICD-10-CM Active Diagnosis MD CNTRL I10 Essential [place] (primary) [place] hypertensionwith [facility] Provider Comments: Hypertension ([facility] [id number]) Diagnosis: ICD-10-CM Active Diagnosis [place] N52.8 Other male CBO C erectile dysfunctionwith Provider Comments: Other Male Erectile Dysfunction Diagnosis: ICD-10-CM Active Diagnosis [place] G46.4 Cerebellar stroke syndromewith Provider Comments: Cerebellar stroke syndrome ([facility] [id number]) Diagnosis: ICD-10-CM Active Diagnosis [facility] I12.9 Hypertensive W STRN chronic kidney [place] disease w stg HCS 1-4/unsp chr kdnywith Provider Comments: Diagnosis: ICD-10-CM Active Diagnosis [place] I63.9 Cerebral infarction, unspecifiedwith Provider Comments: Cerebral Infarction, unspecified Diagnosis: ICD-10-CM Active Diagnosis [facility] Z71.89 Other [place] specified [place] counselingwith HCS Provider Comments: Other specified counseling Medications Combined list of outpatient medications from Department of Defense and Veterans Affairs facilities. Medications provided include 1) outpatient medications from the last 15 months, and 2) patient-reported medications. Medication Details Route Status Patient Prescription Prescription Last Ordering Order Source Instructions Expires Number Dispense Provider Date Date ALCOHOL USE 1 TOPICA ACTIVE [place] 09/21/ [facility] PREP PAD PAD LLY ICE 2020 CNTR[facility] TOPICALL [place] Y FOUR [place] TIMES A SETS DAY HCS APIXABAN TAKE ONE ORAL ACTIVE [place]ALL[place],AL 09/21/ VA 5MG TAB TABLET ICE 2020 CNTRL BY MOUTH [place] ONCE [place] DAILY SETS HCS ASPIRIN TAKE ONE ORAL ACTIVE [place],AL 09/02/ [facility] 81MG TAB,EC TABLET ICE 2016 CNTRL BY MOUTH [place] DAILY [place] SETS HCS FERROUS SO4 TAKE ONE ORAL ACTIVE 07/05/2023 [id number] WHITA KER, 325MG TAB TABLET 2 MELANIA A 2021 CNTRL BY MOUTH [place] ONCE [place] DAILY TO SETS SUPPLEME HCS NT IRON FEXOFENADIN TAKE ONE ORAL ACTIVE [place],AL 03/12/ VA E HCL 60MG TABLET ICE 2018 CNTRL TAB BY MOUTH [place] ONCE [place] DAILY SETS HCS FINASTERIDE TAKE ONE ORAL ACTIVE ANTONIA,ANNM 11/13/ [place] 5MG TAB TABLET JAZMIN 2021 IELD BY MOUTH ONCE DAILY GLUCAGON INJECT 1 INTRAM 04/23/2022 [id number] [place] ,AL VA 1MG/JEY INJECTIO USCULA 2 ICE 2021 CNTRL INJ,EMERGEN N R WSTRN CY KIT INTRAMUS [place] CULARLY SETS ONE TIME HCS NEEDED FOR SEVERE LOW BLOOD SUGAR GLUCAGON INJECT 1 INTRAM 05/06/2021 [id number] [place],AL 04/11/ VA 1MG/JEY INJECTIO USCULA ICE 2020 CNTRL INJ,EMERGEN N R WSTRN CY KIT INTRAMUS [place] CULARLY SETS ONE TIME HCS NEEDED INSULIN,ASP INJECT SUBCUT ACTIVE 06/15/2023 [id number] [place] ,AL 06/15/ VA ART,HUMAN 25 UNITS ANEOUS 2 ICE 2021 CNTRL 100U/ML,NOV SUBCUTAN WSTRN OLOG,FLEXPE EOUSLY [place] N,3ML THREE SETS TIMES A HCS DAY INSULIN,ASP INJECT SUBCUT DISCONT 01/24/2023 [id number] LAMONT MADDEN MD ART,HUMAN 25 UNITS ANEOUS INUED 2 2021 CNTRL 100U/ML,NOV SUBCUTAN (EDIT) WSTR N OLOG,FLEXPE EOUSLY [place] N,3ML THREE SETS TIMES A HCS DAY INSULIN,ASP INJECT SUBCUT DISCONT 01/09/2023 [id number] LAMONT MADDEN MD ART,HUMAN 20 UNITS ANEOUS INUED 2 2021 CNTRL 100U/ML,NOV SUBCUTAN (EDIT) WSTR N OLOG,FLEXPE EOUSLY [place] N,3ML THREE SETS TIMES A HCS DAY INSULIN,ASP INJECT SUBCUT DISCONT 12/03/2022 [id number] LAMONT MADDEN MD ART,HUMAN 18 UNITS ANEOUS INUED 2 2021 CNTRL 100U/ML,NOV SUBCUTAN (EDIT) WSTR N OLOG,FLEXPE EOUSLY [place] N,3ML THREE SETS TIMES A HCS DAY INSULIN,ASP INJECT SUBCUT DISCONT 11/24/2022 [id number] LAMONT MADDEN MD ART,HUMAN 11 UNITS ANEOUS INUED 2 2021 CNTRL 100U/ML,NOV SUBCUTAN (EDIT) WSTR N OLOG,FLEXPE EOUSLY [place] N,3ML THREE SETS TIMES A HCS DAY INSULIN,ASP INJECT 8 SUBCUT DISCONT 10/26/2022 [id number] A LAMONT POWERS MD ART,HUMAN UNITS ANEOUS INUED 2 2021 CNTRL 100U/ML,NOV SUBCUTAN (EDIT) WSTR N OLOG,FLEXPE EOUSLY [place] N,3ML EVERY SETS MORNING HCS AND INJECT 9 UNITS ONCE DAILY AT LUNCH AND INJECT 9 UNITS EVERY EVENING BEFORE SUPPER INSULIN,ASP INJECT 7 SUBCUT DISCONT 01/06/2022 [id number] LAMONT HARRIS 01/06/ MD ART,HUMAN UNITS ANEOUS INUED 1 2020 CNTRL 100U/ML,NOV SUBCUTAN (EDIT) WSTR N OLOG,FLEXPE EOUSLY [place] N,3ML EVERY SETS MORNING HCS AND INJECT 5 UNITS ONCE DAILY AT LUNCH AND INJECT 5 UNITS EVERY EVENING BEFORE SUPPER INSULIN,GLA INJECT SUBCUT HOLD 06/15/2023 [id number] [place],AL 0 VA RGINE,HUMAN 75 UNITS ANEOUS ICE 2021 CNTR L 100 UNIT/ML SUBCUTAN WSTRN INJ,SOLOSTA EOUSLY [place] R,3ML ONCE SETS DAILY HCS FOR DIABETES INSULIN,GLA INJECT SUBCUT DISCONT 01/24/2023 [id number] LAMONT MADDEN RGINE,HUMAN 68 UNITS ANEOUS INUED 2 2021 CNTR L 100 UNIT/ML SUBCUTAN (EDIT) WSTR N INJ,SOLOSTA EOUSLY [place] R,3ML ONCE SETS DAILY HCS FOR DIABETES INSULIN,GLA INJECT SUBCUT DISCONT 12/03/2022 [id number] LAMONT MADDEN MD RGINE,HUMAN 60 UNITS ANEOUS INUED 2 2021 CNTR L 100 UNIT/ML SUBCUTAN (EDIT) WSTR N INJ,SOLOSTA EOUSLY [place] R,3ML ONCE SETS DAILY HCS FOR DIABETES INSULIN,GLA INJECT SUBCUT DISCONT 10/26/2022 [id number] LAMONT MADDEN MD RGINE,HUMAN 55 UNITS ANEOUS INUED 2 2021 CNTR L 100 UNIT/ML SUBCUTAN (EDIT) WSTR N INJ,SOLOSTA EOUSLY [place] R,3ML ONCE SETS DAILY HCS FOR DIABETES INSULIN,GLA INJECT SUBCUT DISCONT 01/06/2022 [id number] LAMONT MADDEN VA RGINE,HUMAN 70 UNITS ANEOUS INUED 2 2020 CNTR L 100 UNIT/ML SUBCUTAN (EDIT) WSTR N INJ,SOLOSTA EOUSLY [place] R,3ML ONCE SETS DAILY HCS FOR DIABETES MAGNESIUM TAKE ORAL ACTIVE BRONWYN KNIGHT 05/11/ SPR[facility] NGF OXIDE TAB 400MG BY 2020 IELD MOUTH TWICE DAILY MIDODRINE TAKE ONE ORAL ACTIVE BRONWYN KNIGHT 05/11/ S [place] HCL 10MG TABLET 2020 IELD TAB BY MOUTH TWICE DAILY MIRABEGRON TAKE ONE ORAL ACTIVE ANTONIA,ANNM springF 25MG TAB,SA TABLET 2021 IELD BY MOUTH ONCE DAILY PANTOPRAZOL TAKE ONE ORAL ACTIVE [place],AL 03/17/ VA E NA 40MG TABLET 2019 CNTRL TAB,EC BY MOUTH W[place] EVERY [place] MORNING SETS 30 HCS MINUTES BEFORE BREAKFAS T PANTOPRAZOL TAKE ONE ORAL ACTIVE [place],AL 09/21/ VA E NA 40MG TABLET 2020 CNTRL TAB,EC BY MOUTH WSTR[place] EVERY [place] MORNING SETS 30 HCS MINUTES BEFORE BREAKFAS T SEMAGLUTIDE INJECT SUBCUT ACTIVE 06/15/2023 [id number] [place]ALL[place] ,AL VA 0.5MG/0.375 0.25MG ANEOUS 2 2021 CNTRL ML SUBCUTAN WSTRN INJ,SOLN,PE EOUSLY [place] N,1.5ML ONCE A SETS WEEK FOR HCS 28 DAYS, THEN INJECT 0.5MG ONCE A WEEK SILDENAFIL TAKE ONE ORAL DISCONT 09/02/2021 [id number] ANTONIA ANNM 09/01/ VA CITRATE TABLET INUE 1 2019 CNTRL 100MG TAB BY MOUTH W[place] ONE TIME [place] SETS NEEDED HCS TAKE 1 HOUR PRIOR TO SEXUAL ACTIVITY TADALAFIL TAKE ONE ORAL ACTIVE 06/15/2023 [id number] [place] ,AL 06/15/ [facility] 10MG TAB TABLET 2 2021 CNTRL BY MOUTH W[place] ONCE [place] DAILY SETS NEEDED HCS TADALAFIL TAKE ONE ORAL DISCONT 01/24/2023 [id number] ABBOT T,AL VA 10MG TAB TABLET INUED 2 2021 CNTRL BY MOUTH W[place] ONCE [place] DAILY SETS NEEDED HCS TADALAFIL TAKE ONE ORAL DISCONT 07/23/2022 [id number] Rodríguez KNIGHT NNM springF 10MG TAB TABLET INUED 1 2020 IELD BY MOUTH ONCE DAILY NEEDED VALSARTAN TAKE ONE ORAL ACTIVE STALLINGSAL V A 40MG TAB TABLET ICE 2020 CNTRL BY MOUTH WSTR[place] ONCE [place] DAILY SETS HCS VITAMIN B TAKE BY ORAL ACTIVE BRONWYN KNIGHT 05/11/ [place] COMPLEX MOUTH ON 2020 IELD CAP,ORAL SATURDAY Allergies, Adverse Reactions, Alerts Combined list of allergies from Department of Defense and Veterans Affairs facilities. It does not include entries that were removed or entered in error. Substance Category Reaction Severity Reaction Status Date Comments S ource type Reported GABAPENTIN Propensity Dizziness Propensity active [facility] to adverse to adverse 4 WS TRN reactions reactions [place] to drug to drug ETS HCS (finding) (finding) PEANUTS Propensity Airway Propensity active [facility] to adverse constrictio to adverse 4 [facility] reactions n reactions [place] to to ETS HCS substance substance (finding) (finding) Immunizations Combined list of available immunizations from the Department of Defense and Veterans Affairs facilities. Immunization Series Date Administered Site Reaction Lot CVX Drug St atus Comments Source Given By Number Code Front Office Help TDAP complet [facility] 2021 ed [facility]L [facility] [place] [facility] INFLUENZA, complet [facility] UNSPECIFIED 2021 ed CN TRL FORMULATION WS TRN [place] [facility] [facility] COVID-19 3 complet VA (MODERNA), 2020 ed CNT RL MRNA, LNP-S, W STRN PF, 100 MCG [place] OR 50 MCG SETS DOSE HCS INFLUENZA, complet VA UNSPECIFIED 2020 ed CN TRL FORMULATION WS TRN [place] [facility] PNEUMOCOCCAL complet VA POLYSACCHARID 2020 ed CNTRL E PPV23 [facility] [place] [facility] COVID-19 2 complet MOD; [place] (MODERNA), 2020 ed [id number]; IELD MRNA, LNP-S, 02 PF, 100 1 MCG/0.5 ML DOSE COVID-19 1 complet MOD; [place] (MODERNA), 2020 ed [id number]; IELD MRNA, LNP-S, 02 PF, 100 1 MCG/0.5 ML DOSE INFLUENZA, complet cvs VA SEASONAL, 2019 ed CNTR L INJECTABLE WST RN [place] [facility] [facility] PNEUMOCOCCAL complet [place] CONJUGATE PCV 2018 ed IELD [address], [address] Guy kendall MD , 2017 ed CNTR L INJECTABLE WST RN [place] [facility] ZOSTER 2 complet [facility] NGF RECOMBINANT 2017 ed IE LD ZOSTER 1 complet [facility] NGF RECOMBINANT 2017 ed IE LD INFLUENZA, complet Site: , 2016 ed Left IELD INJECTABLE Deltoid FLU,3 YRS complet Site: [facility] (HISTORICAL) 2015 ed Left I ELD Deltoid ZOSTER LIVE complet 2012 ed IELD FLU,3 YRS complet Site: [place] [facility] (HISTORICAL) 2012 ed Left I ELD Deltoid FLU,3 YRS complet Site: [place] [facility] (HISTORICAL) 2010 ed Left I ELD Deltoid DTAP, complet Site: [place] UNSPECIFIED 2010 ed Left IE LD FORMULATION Deltoid FLU,3 YRS complet V A (HISTORICAL) 2009 ed C NTRL [facility]N [place] [facility] [facility] NOVEL complet [employer] [place] INFLUENZA-H1N 2009 ed IELD 1-09, ALL FORMULATIONS FLU,3 YRS complet Site: [place] [facility] (HISTORICAL) 2008 ed Right I ELD Deltoid FLU,3 YRS complet Site: [place] [facility] (HISTORICAL) 2008 ed Left I ELD Deltoid FLU,3 YRS complet Site: [facility] [facility] (HISTORICAL) 2006 ed Right I ELD Deltoid PNEUMOCOCCAL, 07/15/ PHIL DIAZ M 109 comp let UNSPECIFIED 2006 ed IE LD FORMULATION FLU,3 YRS complet S MARY JANE (HISTORICAL) 2006 ed I ELD FLU,3 YRS 07/07/ DASTGEER,GHUL 88 complet (HISTORICAL) 2002 AM M ed I ELD FLU,3 YRS 08/18/ WINIFRED MENJIVAR 88 complet (HISTORICAL) 2000 G ed I ELD FLU VACCINE complet VA (HISTORICAL) 1999 ed C NTRL [facility] [place] [facility] [facility] PNEUMOCOCCAL, 05/28/ DASTGEER,GHUL 109 com plet [place] UNSPECIFIED 1997 AM M ed IE LD FORMULATION Results Combined list of recent chemistry, hematology and other laboratory results from Department of Defense and Veterans Affairs, ranging from 15 months to all on record, depending upon the facility. Order Results Value Reference Date Interpretation Specimen Commen ts Source Name Range FERRITIN FERRITIN 20.5 20 - 300 06/08 Specimen Type : SERUM [facility] [MASS/VOLUM /2021 No comment e ntered. WSTRN E] IN SERUM Ordering Pr ovider: MELANIA RAMOSCHHUMBLE OR PLASMA Report Releas ed Date/Time: Feb 14, 2022 08:21 AM HCS Reporting Lab: [facility] [place] [facility] [address] [address] Performing Lab: [facility] [place] [facility] [address] [facility] [address] MICROALBU MICROALBUMI 316.8 0 - 29.9 06/08 H Specimen Type: URINE [facility] MIN N/CREATININ /2021 No comment e ntered. WSTRN CREATININ E [MASS Ordering Prov ider: MELANIA RAMOSCHUSE E RATIO RATIO] IN Report Releas ed Date/Time: Feb 14, 2022 08:21 AM [facility] PANEL URINE Reporting Lab: [facility] [place] [facility] [address] [facility] [address] Performing Lab: [facility] [place] [facility] [address] [address] MICROALBU MICROALBUMI 24.7 06/08 Specimen T ype: URINE [facility] MIN N /2021 No comment enter ed. WSTRN CREATININ [MASS/VOLUM Ordering Provider: MELANIA RAMOSCHUSE E RATIO E] IN URINE Report Rele ased Date/Time: Feb 14, 2022 08:21 AM HCS PANEL Reporting Lab: [facility] [place] [facility] [address] [address] Performing Lab: [facility] [place] [facility] [address] [address] MICROALBU CREATININE 77.97 06/08 Specimen Ty pe: URINE [facility] MIN [MASS/VOLUM /2021 No comment e ntered. WSTRN CREATININ E] IN URINE Ordering Provider: MELANIA RAMOSCHUSE E RATIO Report Released Date/Time: Feb 14, 2022 08:21 AM TS HCS PANEL Reporting Lab: MD CNTR [place] [facility] [address] [address] Performing Lab: MD CNTRL [place] [facility] [address] [address] IRON & IRON 381 204 - 475 06/08 Specimen Type: SERUM [facility] TIBC BINDING /2021 No comment enter ed. WSTRN PANEL CAPACITY Ordering Provi tye: MELANIA RAMOS [MASS/VOLUM Report Rele ased Date/Time: Feb 14, 2022 08:21 AM TS HCS E] IN SERUM Reporting L ab: [facility] [place] [facility] OR PLASMA [address] [facility] [address] Performing Lab: MD CNTR [place] [facility] [address] [address] IRON & IRON 64 40 - 160 06/08 Specimen Type: SERUM MD CNTRL TIBC [MASS/VOLUM /2021 No comment e ntered. WSTRN PANEL E] IN SERUM Ordering Pr ovider: MELANIA RAMOSCHHUMBLE OR PLASMA Report Releas ed Date/Time: Feb 14, 2022 08:21 AM TS HCS Reporting [facility] [place] [facility] [address] [address] Performing Lab: MD CNTRL [place] [facility] [address] [address] IRON & IRON/IRON 16.8 20.0 - 06/08 L Specimen Type: SERUM MD CNTRL TIBC BINDING 50.0 /2021 No comment enter ed. WSTRN PANEL CAPACITY.TO Ordering Pr ovider: MELANIA RAMOS RENETTA [MASS Report Releas ed Date/Time: Feb 14, 2022 08:21 AM TS HCS RATIO] IN Reporting Lab : [facility] [place] [facility] SERUM OR [address] [facility] [address] PLASMA Performing Lab: MD CNTRL [place] [facility] [address] [address] BASIC UREA 24 7 - 25 06/08 Specimen Type: S EDIE [facility] METABOLIC NITROGEN /2021 No comment en tered. WSTRN PANEL [MASS/VOLUM Ordering Pr ovider: MELANIA RAMOSUSE (non-fast E] IN SERUM Report Re leased Date/Time: Feb 14, 2022 08:21 AM TS [facility] ing) OR PLASMA Reporting Lab : [facility] [address] [address] Performing Lab: [facility] WSTRN [address] [address] BASIC GLUCOSE 230 65 - 100 0923 H Specimen Type: SERUM [facility] METABOLIC [MASS/VOLUM /2021 No comment entered. WSTRN PANEL E] IN SERUM Ordering Pr ovider: MELANIA RAMOSUSE (non-fast OR PLASMA Report Rele ased Date/Time: Feb 14, 2022 08:21 AM TS [facility] ing) Reporting Lab: [facility] [address] [address] Performing Lab: MD CNTRL TRN [address] [address] BASIC SODIUM 136 135 - 145 06/08 Specimen Type: SERUM [facility] METABOLIC [MOLES/VOLU /2021 No comment entered. WSTRN PANEL ME] IN Ordering Provid er: MELANIA RAMOS (non-fast SERUM OR Report Relea sed Date/Time: Feb 14, 2022 08:21 AM TS [facility] ing) PLASMA Reporting Lab: [facility] TRN [place] [address] Performing Lab: [facility] [address] BASIC POTASSIUM 5.2 3.5 - 5.0 06/08 H Specimen Typ e: SERUM [facility] METABOLIC [MOLES/VOLU /2021 No comment entered. WSTRN PANEL ME] IN Ordering Provid er: MELANIA RAMOS (non-fast SERUM OR Report Relea sed Date/Time: Feb 14, 2022 08:21 AM TS [facility] ing) PLASMA Reporting Lab: MD CN[facility]L WSTRN [facility] [address] [address] Performing Lab: [facility] W[facility] [address] [facility] [address] BASIC CHLORIDE 104 100 - 110 06/08 Specimen Type : SERUM [facility] METABOLIC [MOLES/VOLU /2021 No comment entered. WSTRN PANEL ME] IN Ordering Provid er: MELANIA RAMOS (non-fast SERUM OR Report Relea sed Date/Time: Feb 14, 2022 08:21 AM TS [facility] ing) PLASMA Reporting Lab: [facility] [address] [address] Performing Lab: [facility] W[facility]N [address] [address] BASIC CARBON 23 20 - 30 06/08 Specimen Type: S EDIE [facility] METABOLIC DIOXIDE, /2021 No comment en tered. WSTRN PANEL TOTAL Ordering Provid er: MELANIA RAMOS (non-fast [MOLES/VOLU Report Re leased Date/Time: Feb 14, 2022 08:21 AM TS [facility] ing) ME] IN Reporting Lab: [facility] SERUM OR [address] [place] [address] PLASMA Performing Lab: [facility] [address] [facility] [address] BASIC CREATININE 1.66 0.50 - 0923 H Specimen Type : SERUM [facility] METABOLIC [MASS/VOLUM 1.40 /2021 No comment entered. WSTRN PANEL E] IN SERUM Ordering Pr ovider: MELANIA RAMOS (non-fast OR PLASMA Report Rele ased Date/Time: Feb 14, 2022 08:21 AM TS [facility] ing) Reporting Lab: [facility] [address] [address] Performing Lab: MD CNTR WSTRN [facility] [address] [facility] [address] BASIC GLOMERULAR 44 60 09/23 L Specimen Type : SERUM [facility] METABOLIC FILTRATION /2021 No comment entered. WSTRN PANEL RATE/1.73 Ordering Prov ider: MELANIA RAMOS (non-fast SQ Report Releas ed Date/Time: Feb 14, 2022 08:21 AM TS [facility] ing) Piedad.PREDICTED Reporting L ab: [facility] [VOLUME [address] [facility] [address] RATE/AREA] Performing L ab: MD L[facility]ARL TRN [facility] IN SERUM, [address] [facility] [address] PLASMA OR BLOOD BY CREATININE- BASED FORMULA (CKD-EPI) LIPID CHOLESTEROL 146 7 - 199 06/08 Specimen Typ e: SERUM [place] PANEL [MASS/VOLUM /2021 No comment e ntered. LD FASTING E] IN SERUM Ordering Pr ovider: AMBIKA KNIGHT OR PLASMA Report Rele ed Date/Time: Jun 06, 2022 03:16 PM Reporting Lab: [facility] [address] [facility] [address] Performing Lab: [facility] [address] [facility] [address] LIPID TRIGLYCERID 238 0 - 150 09 H Specimen Typ e: SERUM [place] PANEL E /2021 No comment enter ed. LD FASTING [MASS/VOLUM Ordering Pr ovider: AMBIKA KNIGHT] IN SERUM Report Rele ased Date/Time: Jun 06, 2022 03:16 PM OR PLASMA Reporting Lab : [facility]N [facility] [address] [address] Performing Lab: [facility] [address] [facility] [facility] [address] LIPID CHOLESTEROL 67 0 - 129 06/08 Specimen Typ e: SERUM [place] PANEL IN LDL /2021 No comment enter ed. LD FASTING [MASS/VOLUM Ordering Pr ovider: AMBIKA KNIGHT] IN SERUM Report Rele ased Date/Time: Jun 06, 2022 03:16 PM OR PLASMA Reporting Lab : [facility] BY [address] [address] CALCULATION Performing Lab: [facility] [address] [address] LIPID CHOLESTEROL 4.7 06/08 Specimen Typ e: SERUM [place] PANEL .TOTAL/CHOL /2021 No comment e ntered. LD FASTING ESTEROL IN Ordering Pro vider: AMBIKA KNIGHT HDL [MASS Report Releas ed Date/Time: Jun 06, 2022 03:16 PM RATIO] IN Reporting Lab : [facility] SERUM OR [address] [address] PLASMA Performing Lab: [facility] WSTRN [address] [address] LIPID CHOLESTEROL 31 40 - 60 06/08 L Specimen Typ e: SERUM [place] PANEL IN HDL /2021 No comment enter ed. LD FASTING [MASS/VOLUM Ordering Pr ovider: AMBIKA KNIGHT] IN SERUM Report Rele ased Date/Time: Jun 06, 2022 03:16 PM OR PLASMA Reporting Lab : [facility] WSTRN [address] [address] Performing Lab: [facility] WSTRN [address] [address] HEMOGLOBI HEMOGLOBIN 9.4 4.0 - 5.6 06/08 H Specimen Type: BLOOD [facility] N A1C A1C/HEMOGLO /2021 Comment: Va lues obtained from A1C measurements can vary. For typical A1C assays, a reported value of 7.0 could actually be between 6.72 and 7.28 if measured by a reference method. A reported value of 9 LD PANEL BIN.TOTAL .0 could actua lly be between 8.73 and 9.27. Ref: http://www.ngsp.org/CAPdata.asp IN BLOOD BY Ordering Pr ovider: AMBIKA KNIGHT HPLC Report Released Date/Time: Jun 06, 2022 03:16 PM Reporting Lab: MD CNTRL WSTRN [address] [address] Performing Lab: MD CNTR WSTRN [address] [address] CBC LEUKOCYTES 7.26 4.50 - 06/08 Specimen Type : BLOOD [facility] [#/VOLUME] 11.00 No comment en tered. WSTRN IN BLOOD BY Ordering Pr ovider: MELANIA RAMOS [place] AUTOMATED Report Releas ed Date/Time: Feb 14, 2022 08:21 AM TS [facility] COUNT Reporting Lab: [facility] [place] [facility] [address] [facility] [address] Performing Lab: [facility] [place] [facility] [address] [address] CBC ERYTHROCYTE 5.31 4.23 - 09 Specimen Typ e: BLOOD [facility] S 5.66 /2021 No comment enter ed. WSTRN [#/VOLUME] Ordering Pro vider: MELANIA RAMOS [place] IN BLOOD BY Report Rele ased Date/Time: Feb 14, 2022 08:21 AM TS [facility]CS AUTOMATED Reporting Lab : [facility] [place] [facility] COUNT [address] [facility] [address] Performing Lab: [facility] [place] [facility] [address] [address] CBC HEMOGLOBIN 13.9 12.8 - 17 06/08 Specimen Ty pe: BLOOD [facility] [MASS/VOLUM /2021 No comment e ntered. WSTRN E] IN BLOOD Ordering Pr ovider: MELANIA RAMOS [place] Report Released Date/Time: Feb 14, 2022 08:21 AM TS [facility]CS Reporting Lab: [facility] [place] [facility] [address] [facility] [address] Performing Lab: [facility] [place] [facility] [address] [address] CBC HEMATOCRIT 43.1 39.2 - 06/08 Specimen Type : BLOOD [facility] [VOLUME 50.4 No comment enter ed. WSTRN FRACTION] Ordering Prov ider: MELANIA RAMOS [place] OF BLOOD BY Report Rele ased Date/Time: Feb 14, 2022 08:21 AM TS [facility]CS AUTOMATED Reporting Lab : [facility] [place] [facility] COUNT [address] [facility] [address] Performing Lab: [facility] [place] [facility] [address] [facility] [address] CBC MCV 81.2 82 - 99 / L Specimen Type: B LOOD [facility] [ENTITIC /2021 No comment ente red. WSTRN VOLUME] BY Ordering Pro vider: MELANIA RAMOS [place] AUTOMATED Report Releas ed Date/Time: Feb 14, 2022 08:21 AM TS [facility] COUNT Reporting Lab: [facility] [place] [facility] [address] [facility] [address] Performing Lab: [facility] [place] [facility] [address] [facility] [address] CBC MCHC 32.3 30.8 - 06/08 Specimen Type: B LOOD [facility] [MASS/VOLUM 35.1 /2021 No comment e ntered. WSTRN E] BY Ordering Provid er: MELANIA RAMOSCHUSE AUTOMATED Report Releas ed Date/Time: Feb 14, 2022 08:21 AM TS [facility] COUNT Reporting Lab: [facility] [place] [facility] [address] [address] Performing Lab: [facility] [place] [facility] [address] [facility] [address] CBC PLATELETS 280 140 - 360 06/08 Specimen Typ e: BLOOD [facility] [#/VOLUME] /2021 No comment en tered. WSTRN IN BLOOD BY Ordering Pr ovider: MELANIA RAMOSCHUSE AUTOMATED Report Rele ed Date/Time: Feb 14, 2022 08:21 AM TS [facility] COUNT Reporting Lab: [facility] [place] [facility] [address] [facility] [address] Performing Lab: [facility] [place] [facility] [address] [facility] [address] CBC ERYTHROCYTE 15.5 12.0 - 06/08 Specimen Typ e: BLOOD [facility] DISTRIBUTIO 16.0 No comment e ntered. WSTRN N WIDTH Ordering Provid er: MELANIA RAMOS [RATIO] BY Report Rele sed Date/Time: Feb 14, 2022 08:21 AM TS [facility]CS AUTOMATED Reporting Lab : [facility] [place] [facility] [address] [address] Performing Lab: [facility] [place] [facility] [address] [facility] [address] CBC MCH 26.2 26.2 - 06/08 Specimen Type: B LOOD [facility] [ENTITIC 32.6 /2021 No comment ente red. WSTRN MASS] BY Ordering Provi tye: MELANIA RAMOS [place] AUTOMATED Report Releas ed Date/Time: Feb 14, 2022 08:21 AM TS [facility]CS COUNT Reporting Lab: [facility] [address] [address] Performing Lab: [facility] [address] [facility] [address] BASIC UREA 24 7 - 25 06/08 Specimen Type: S EDIE [place] METABOLIC NITROGEN /2021 No comment en tered. LD PANEL [MASS/VOLUM Ordering Pr ovider: AMBIKA KNIGHT (fasting) E] IN SERUM Report Re leased Date/Time: Jun 06, 2022 03:16 PM OR PLASMA Reporting Lab : [facility]N [facility] [address] [facility] [address] Performing Lab: [facility] WSN [address] [address] BASIC GLUCOSE 230 65 - 100 09/23 H Specimen Type: SERUM [place] METABOLIC [MASS/VOLUM /2021 No comment entered. LD PANEL E] IN SERUM Ordering Pr ovider: AMBIKA KNIGHT (fasting) OR PLASMA Report Rele ased Date/Time: Jun 06, 2022 03:16 PM Reporting Lab: [facility] [address] [facility] [address] Performing Lab: [facility]N [facility] [address] BASIC SODIUM 136 135 - 145 06/08 Specimen Type: SERUM [place] METABOLIC [MOLES/VOLU /2021 No comment entered. LD PANEL ME] IN Ordering Provid er: AMBIKA KNIGHT (fasting) SERUM OR Report Relea sed Date/Time: Jun 06, 2022 03:16 PM PLASMA Reporting Lab: [facility] [address] [address] Performing Lab: [facility] [address] [address] BASIC POTASSIUM 5.2 3.5 - 5.0 09/23 H Specimen Typ e: SERUM [place] METABOLIC [MOLES/VOLU /2021 No comment entered. LD PANEL ME] IN Ordering Provid er: AMBIKA KNIGHT (fasting) SERUM OR Report Relea sed Date/Time: Jun 06, 2022 03:16 PM PLASMA Reporting Lab: [facility] [address] [address] Performing Lab: [facility] [address] [address] BASIC CHLORIDE 104 100 - 110 09/ Specimen Type : SERUM [place] METABOLIC [MOLES/VOLU /2021 No comment entered. LD PANEL ME] IN Ordering Provid er: AMBIKA KNIGHT (fasting) SERUM OR Report Relea sed Date/Time: Jun 06, 2022 03:16 PM PLASMA Reporting Lab: [address] [address] Performing Lab: [address] [address] BASIC CARBON 23 20 - 30 09/23 Specimen Type: S EDIE [place] METABOLIC DIOXIDE, /2021 No comment en tered. LD PANEL TOTAL Ordering Provid er: AMBIKA KNIGHT (fasting) [MOLES/VOLU Report Re leased Date/Time: Jun 06, 2022 03:16 PM ME] IN Reporting Lab: [facility] SERUM OR [address] [place] [address] PLASMA Performing Lab: [address] [address] BASIC CREATININE 1.66 0.50 - 09/23 H Specimen Type : SERUM [place] METABOLIC [MASS/VOLUM 1.40 /2021 No comment entered. LD PANEL E] IN SERUM Ordering Pr ovider: AMBIKA KNIGHT (fasting) OR PLASMA Report Rele ased Date/Time: Jun 06, 2022 03:16 PM Reporting Lab: [address] [address] Performing Lab: [address] [address] BASIC GLOMERULAR 44 60 09/23 L Specimen Type : SERUM [place] METABOLIC FILTRATION /2021 No comment entered. LD PANEL RATE/1.73 Ordering Prov ider: AMBIKA KNIGHT (fasting) SQ Report [facility] ed Date/Time: Jun 06, 2022 03:16 PM M.PREDICTED Reporting L ab: [facility] [place] [facility] [VOLUME [address] [address] RATE/AREA] Performing L ab: [facility] [place] [facility] IN SERUM, [address] [facility] [address] PLASMA OR BLOOD BY CREATININE- BASED FORMULA (CKD-EPI) PO4 PHOSPHATE 3.5 2.5 - 5.0 05/05 Specimen Typ e: SERUM [facility] [MASS/VOLUM /2021 No comment e ntered. WSTRN E] IN SERUM Ordering Pr ovider: MELANIA RAMOS [place] OR PLASMA Report [facility] ed Date/Time: Nov 08, 2021 04:09 PM TS HCS Reporting Lab: [facility] [place] [facility] [address] [facility] [address] Performing Lab: [facility] [place] [facility] [address] [facility] [address] PTH PARATHYRIN. 122.6 10 - 65 05/05 H Specimen Typ e: SERUM [facility] INTACT INTACT /2021 No comment enter ed. WSTRN [MASS/VOLUM Ordering Pr ovider: MELANIA RAMOS [place] E] IN SERUM Report Rele [facility] Date/Time: Nov 08, 2021 04:09 PM TS HCS OR PLASMA Reporting Lab : [facility] [place] [facility] [address] [facility] [address] Performing Lab: [facility] [place] [facility] [address] [facility] [address] Vital Signs Combined list of inpatient and outpatient Vital Signs from Department of Defense and Veterans Affairs, ranging from 12 months to all on record, depending upon the facility. Vital Sign Value Date Comments Source SYSTOLIC BLOOD PRESSURE 129 07/05/2022 [facility] 13:50:15 DIASTOLIC BLOOD PRESSURE 71 07/05/2022 [facility] 13:50:15 PULSE OXIMETRY 99% 07/05/2022 [facility] 13:50:15 WEIGHT 237 07/05/2022 [facility] 13:50:15 BMI 36kg/m2 07/05/2022 [facility] 13:50:15 PULSE 70 07/05/2022 [facility] 13:50:15 RESPIRATION 0 07/05/2022 [facility] 13:50:15 SYSTOLIC BLOOD PRESSURE 120 07/04/2022 [facility] 15:12:01 [facility] [facility] DIASTOLIC BLOOD PRESSURE 66 07/04/2022 [facility] 15:12:01 [place] PULSE OXIMETRY 98% 07/04/2022 [facility] 15:12:01 [place] [facility] WEIGHT 237 07/04/2022 [facility] 15:12:01 [facility] BMI 36kg/m2 07/04/2022 [facility] 15:12:01 [facility] TEMPERATURE 97.7 07/04/2022 [facility] 15:12:01 [facility] PULSE 90 07/04/2022 [facility] 15:12:01 [facility] RESPIRATION 24 07/04/2022 [facility] 15:12:01 [place] [facility] SYSTOLIC BLOOD PRESSURE 126 06/14/2022 [facility] 13:45:25 [facility] [facility] DIASTOLIC BLOOD PRESSURE 72 06/14/2022 [facility] 13:45:25 [facility] PULSE OXIMETRY 97% 06/14/2022 [facility] 13:45:25 [facility] WEIGHT 234.6 06/14/2022 [facility] 13:45:25 [facility] BMI 36kg/m2 06/14/2022 [facility] 13:45:25 [facility] PAIN 5 06/14/2022 [facility] 13:45:25 [facility] HEIGHT 68 06/14/2022 [facility] 13:45:25 [facility] TEMPERATURE 97.2 06/14/2022 [facility] 13:45:25 [facility] PULSE 78 06/14/2022 [facility] 13:45:25 [facility] RESPIRATION 18 06/14/2022 [facility] 13:45:25 [facility] [facility] SYSTOLIC BLOOD PRESSURE 135 05/14/2022 [facility] 14:25:11 DIASTOLIC BLOOD PRESSURE 78 05/14/2022 [facility] 14:25:11 PULSE OXIMETRY 97% 05/14/2022 [facility] 14:25:11 PULSE 82 05/14/2022 [facility] 14:25:11 SYSTOLIC BLOOD PRESSURE 135 04/17/2022 [facility] 15:48:33 DIASTOLIC BLOOD PRESSURE 72 04/17/2022 [facility] 15:48:33 PULSE OXIMETRY 97% 04/17/2022 [facility] 15:48:33 PULSE 74 04/17/2022 [facility] 15:48:33 Encounters Combined list of: 1) Encounters from Department of Veterans Affairs facilities going back up to the last 18 months. 2) Encounters from the Department of [facility] facilities going back up to 280 months. 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< br/>wit h Provide r Comment s: Type II diabete s mellitu s (SCT [id number] 6) Outpatient [id number] 01/17 [id number] [id number] 02/03 [id number] [facility]2020 [facility] [place] PRO 13116-5.63 Diagnos BOY JO 02/07 V A PHONE CALL [id number] is: IZABETH CN TRL 5-10 MIN ICD-10- WSTRN CM [place] Z71.89 SETS Other HCS specifi ed family life counselor ing<br/ >with Provide r Comment s: Other specifi ed family life counselor ing GAIT 06728-7.63 Diagnos RADHA BHATT 02/16 SP RINGF TRAINING [id number] is: Rodríguez KRISTY IELD THERAPY 10 ICD-10- CM I63.9 Cerebra l infarct ion, unspeci fied
with Provide r Comment s: Cerebra l Infarct ion, unspeci fied Outpatient [id number] Diagnos RAMOS,S 02/22 [facility] Encounter [id number] is: JOSE ALBERTO A CN TRL ICD-10- WSTRN CM [place] I12.9 SETS [facility] nsive chronic kidney disease w stg 1-4/uns p chr kdny
with Provide r Comment s: Outpatient [id number] 03/09 [facility] Encounter [id number] [facility] [place] [facility] Outpatient 61680-5.63 03/14 [facility] Encounter [id number] /2021 [facility] 83332-9.63 04/05 [facility] Encounter [id number] /2021 [facility] [place] [facility] OFFICE O/P 65470-3. 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
with Provide r Comment s: Ingrowi ng Nail Outpatient 91415-9.63 04/29 [facility] Encounter [id number] [facility] [place] [facility] OFFICE O/P 76951-2.63 Diagnos LEXIS KNIGHT 05/11 [place]ING[place] EST MOD [id number] is: SHLOMO IELD 30-39 MIN 59 ICD-10- CM G46.4 Cerebel lar stroke syndrom e
w ith Provide r Comment s: Cerebel lar stroke syndrom e (SCT [id number] 00) IMMUNIZATI 68207-5.63 LEXIS KNIGHT 05/11 [facility] ON ADMIN [id number] [facility] [place] [facility] Outpatient 85176-3.63 05/17 [facility] Encounter [id number] [facility] 69644-2.63 06/24 [facility] Encounter [id number] [facility] 20353-0.63 Diagnos RAMOS,S 06/28 [facility] Encounter [id number] is: JOSE ALBERTO CN TRL ICD-10- WSTRN CM [place] I12.9 SETS Hyperte [facility] nsive chronic kidney disease w stg 1-4/uns p chr kdny
with Provide r Comment s: Hyperte nsive Chronic Kidney Disease with Stage 1 through Stage 4 Chronic Kidney Disease , or unspeci fied Chronic Kidney Disease Outpatient 42689-7.63 07/11 [facility] Encounter [id number] [facility] 26045-7.63 07/18 [facility] Encounter [id number] [facility] [place] [facility] OFFICE O/P 98173-7.63 Diagnos ADRIANA SANTOROL 07/19 [place] EST LOW [id number] is: ES IELD 20-29 MIN 64 ICD-10- CM L60.0 Ingrowi ng nail
with Provide r Comment s: Ingrowi ng Nail Outpatient 72394-5.63 07/21 [facility] Encounter [id number] [facility] [place] [address]-8 Diagnos GRICEL BAILEY 07/24 FITCHBU DIG [id number] is: RASHAWN J RG CBOC ASSMT&MGMT 12 ICD-10- 5-10 CM N52.8 Other male erectil e dysfunc tion
with Provide r Comment s: Other Male Erectil e Dysfunc tion OFFICE O/P Diagnos RUTHIE STALLINGS 07/24 [facility] EST MOD [id number] is: CNTRL 30-39 MIN ICD-10- WSTRN CM I10 [place] [facility] (primar y) hyperte nsion<b r/>with Provide r Comment s: Hyperte nsion (SCT [id number] 3) Outpatient [id number] 07/24 [facility] Encounter [id number] /2021 [facility] 45256-6.63 09/05 [facility] Encounter [id number] /2021 [facility] 95365-7.63 09/12 [facility] Encounter [id number] /2021 [facility] Out[facility] 99412-2.63 10/23 [facility] Encounter [id number] [facility] Out[facility] [id number] Diagnos HAYLIE,ALI 10/25 [facility] Encounter [id number] is: CNTRL ICD-10- WSTRN CM [place] E11.8 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 Diagnos EMERSON SHIN 10/26 [place] [id number] is: E L IELD MOLDED 27 ICD-10- SHOE CM E11.9 Type 2 diabete s mellitu 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< br/>wit h Provide r Comment s: Type 2 Diabete s Mellitu s without Complic ations Outpatient 03926-6.63 Diagnos RICHARDS 11/01 [facility] Encounter [id number] is: JOSE ALBERTO CN TRL ICD-10- WSTRN CM [place] I12.9 SETS [facility]te [facility] nsive chronic kidney disease w stg 1-4/uns p chr kdny
with Provide r Comment s: Hyperte nsive Chronic Kidney Disease with Stage 1 through Stage 4 Chronic Kidney Disease , or unspeci fied Chronic Kidney Disease OFFICE O/P 95171-0.63 Diagnos ADRIANA SANTOROL 11/10 [place] EST LOW [id number] is: ES IELD 20-29 MIN 21 ICD-10- CM L60.0 Ingrowi ng nail
with Provide r Comment s: Ingrowi ng Nail OFFICE O/P .63 Diagnos LEXIS KNIGHT 11/13 [place]ING[place] EST MOD [id number] is: SHLOMO IELD 30-39 MIN 95 ICD-10- CM I95.1 Orthost atic hypoten roro
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< br/>wit h Provide r Comment s: Type II diabete s mellitu s (SCT [id number]) [place] [address]-1.63 Diagnos DARVIN MATTHEW 11/24 [facility] [id number] is: ABELA A [facility] ASSMT&MGMT ICD-10- [facility] 5-10 CM [place] Z51.81 SETS [facility] er for therape utic drug level monitor ing<br/ >with Provide r Comment s: Therape utic Drug Level Monitor ing Outpatient [id number] 12/01 [facility] [id number] [facility] HC PRO 93884-2.63 Diagnos ALEC ALEJANDRE 12/01 S PRINGF PHONE CALL [id number] is: N L IELD 5-10 MIN 90 ICD-10- CM 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< br/>wit h Provide r Comment s: 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 Outpatient [id number] Diagnos RUTHIE STALLINGS 12/02 [facility] [id number] is: CE [facility] ICD-10- [facility] [place] E11.8 SETS 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< br/>wit h Provide r Comment s: Type II diabete s mellitu s (SCT [id number] 6) CONT GLUC 75610-5.63 Diagnos ALEC ALEJANDRE 12/21 [facility] MNTR PT [id number] is: N L IELD PROV EQP 91 ICD-10- CM 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< br/>wit h Provide r Comment s: 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 Outpatient 72647-9.63 01/02 [facility] [id number] [facility] [place] 40985-5.63 Diagnos ALEC ALEJANDRE 01/05 V A PHONE CALL [id number] is: N L CNTR L 11-20 MIN ICD-10- [facility] [place] E11.65 SETS 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< br/>wit h Provide r Comment s: 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 Outpatient 06150-2.63 01/22 [facility] [id number] [facility] Out[facility] 22378-2.63 Diagnos STALLINGS,ALI 01/23 [facility] En[facility] [id number] is: CE [facility] ICD-10- [facility] CM [place] E11.8 SETS 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
w ith Provide r Comment s: Type 2 Diabete s Mellitu s with Diabeti c Periphe ral Angiopa thy without Gangren e POSTOP 50362-4.63 Diagnos LAUREN SANTORO 03/09 S PRINGF FOLLOW-UP [id number] is: ES IELD VISIT 38 ICD-10- CM S90.412 S Abrasio n, left great toe, sequela
wi th Provide r Comment s: Abrasio n, left Great Toe, [place] OFFICE O/P 37510-8.63 Diagnos LAUREN SANTORO 03/23 [place]ING[place] EST LOW [id number] is: ES IELD 20-29 MIN 79 ICD-10- CM L02.612 [place] abscess of left foot
with Provide r Comment s: [place] Abscess of left Foot POSTOP 98720-9.63 Diagnos LAUREN SANTORO 03/26 S PRINGF FOLLOW-UP [id number] is: ES IELD VISIT 91 ICD-10- CM L02.612 [place] abscess of left foot
with Provide r Comment s: [place] Abscess of left Foot OFFICE O/P 32006-5.63 Diagnos LAUREN SANTORO 04/02 [place]ING[place] EST LOW [id number] is: ES IELD 20-29 MIN 59 ICD-10- CM L84 [place]s and callosi ties
with Provide r Comment s: Corns and callosi ties OFFICE O/P 65802-6.63 Diagnos DOMINIQUE, 04/17 SPRING[place] EST [id number] is: RONAN IELD MINIMAL 56 ICD-10- PROB CM M79.675 Pain in left toe(s)< br/>wit h Provide r Comment s: Pain in left Toe(s) Outpatient 52785-2.63 04/17 [facility] [id number] [facility] [place] [facility] Outpatient 49497-5.63 04/17 [facility] Encounter [id number] [facility] [place] [facility] Outpatient 92048-8.63 KAI JORDANL 04/19 [facility] Encounter [id number] MARIBELL R [facility] L [facility] [place] [facility] Outpatient 65169-8.63 05/14 [facility] Encounter [id number] [facility] [place] [facility] OFFICE O/P 29437-8.63 Diagnos LEWIS,DA 05/14 SPRING[place] EST SF [id number] is: VID A IELD 10-19 MIN 96 ICD-10- CM L84 [place] and call[place] ties
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
with Provide r Comment s: Chronic kidney disease (SCT [id number]) OFFICE O/P Diagnos VIETCortez,JANEEN 07/04 [place] EST [id number] is: E CNTRL MINIMAL ICD-10- WSTRN PROB CM [place] E11.9 SETS Type 2 HCS diabete s mellitu 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< br/>wit h Provide r Comment s: Diabete s mellitu s (SCT [id number]) OFFICE O/P Diagnos LEXIS KNIGHT 07/05 [facility] EST MOD [id number] is: IELD 30-39 MIN 83 ICD-10- CM L89.90 Pressur e ulcer of unspeci fied site, unspeci fied stage<b r/>with Provide r Comment s: Pressur e Ulcer of unspeci fied site, unspeci fied Stage IMMUNIZATI 75123-8.63 LEXIS KNIGHT 07/05 MD ON ADMIN [id number] [facility] [place] Social History Combined list of available smoking, tobacco, and other social history [facility] [employer] [facility]. Social History Response Date Comment Source Type Tobacco smoking VA-TOBACCO NEVER 07/05/2022 MD CNTRL [facility] status NHIS USED [facility] History of VA-TOBACCO NEVER 05/11/2021 MD CNTRL WS TRN tobacco use USED [facility] History of VA-TOBACCO NEVER 02/03/2019 [place] tobacco use USED History of LIFETIME 01/13/2018 [place] tobacco use NON-TOBACCO USER History of LIFETIME 01/04/2017 [place] tobacco use NON-TOBACCO USER History of LIFETIME 12/23/2015 [place] tobacco use NON-TOBACCO USER History of LIFETIME 11/27/2005 patient reportssmoking [place] tobacco use NON-TOBACCO USER only crack coccaine History of LIFETIME 01/22/2003 [place] tobacco use NON-SMOKER History of LIFETIME 08/18/2001 pt states he has never [place] tobacco use NON-TOBACCO USER smoked History of LIFETIME 05/14/2001 [place] tobacco use NON-SMOKER Plan of Care List of future care activities from Department of [employer] [facility] facilities. Additional future care activities may be listed in the Assessment and Plan section. Date/Time Care Activity Care Activity Detail Facility 09/05/2022 AMBULAT[facility]
--- OUTSIDE RECORDS SUMMARY | 2022-07-08 12:27 | XMS_ITS ---
:1950 Author Organization Department of [facility] rs Address [address] [place] [address] Support Name Relationship Address Phone THANIA BERGER Rosmery [place] [address] CELINEAMELIA Unavailable [address] [place] [address] Insurance Providers: All historical and current Section [...] AARP INS PRESCRIPT MEDIC Sep 16, PDPIND [id number] [phone] YESSI BERGERZhane PATIENT ION ARE D 2017 251 [id number] IS MEDICAID MEDICAID [facility] Jul 17, MEDICAI [id number] [phone] YESSI BERGERZhane PATIENT EALTH 2014 D [id number] IS [place] MEDICARE MEDICARE PART Sep 16, PART A [id number] [phone] Rosmery BERGER PATIENT (WNR) (M) A 2010 00 IS MEDICARE MEDICARE PART Sep 16, PART B [id number] [phone] Rosmery BERGER PATIENT (WNR) (M) B 2010 00 IS MEDICARE MEDICARE PART Sep 16, PART A [id number] Rosmery BERGER PATIENT (WNR) (M) A 2010 XH29 2 IS MEDICARE MEDICARE PART Sep 16, PART B [id number] Rosmery BERGER PATIENT (WNR) (M) B 2010 XH29 2 IS Selected Encounter This section includes the information on record at [place] for the Encounter. Date/Time Encounter Type Encounter Description Reason Provider Source Jul 24, 2021 04:00 Outpatient Encounter GENERAL INTERNAL PM MEDICINE IHE Encounter Template Text not used by [place] Plan of Treatment: Future Appointments (+ 6 months) and Future Tests (+/- 45 days) The Plan of Treatment section includes future care activities for the patient from [facility] [place] [facility] This section includes future appointments and future orders which are active, pending orscheduled.Future Appointments This section includes appointments that were scheduled to occur 6 months from the date of the Encounter, up to a maximum of 20 appointments. The data comes from all [place] treatment [facility]. Appointment Date/Time Appointment Type Appointment Facili ty Name Oct 18, 2021 10:15 AM [facility] Oct 25, 2021 12:[address] [facility] [place] [facility] Oct 26, 2021 10:[address] [facility] [place] [facility] Nov 01, 2021 03:[address] [facility] [place] [facility] Nov 10, 2021 10:00 AM [facility] Nov 13, 2021 09:00 AM [facility] Nov 16, 2021 02:30 PM [facility] Nov 16, 2021 03:00 PM [facility] Dec 21, 2021 03:30 PM [facility] Jan 05, 2022 03:30 [facility] [place] [facility] Vital Signs: All taken on the encounter date This section contains inpatient and outpatient Vital Signs collected on the date of the Encounter. Date/Time Temperature Pulse Blood Respiratory SP02 Pain Height Weight Aleksander dy Source Pressure Rate Mass Index Jul 24 144/88 97 % 0 229.6 35 [place] 2020 03:54 /min mm[Hg] lb [facility] PM [place] [facility] Social History: Smoking Status (Most current) and Tobacco Use (All prior to encounter date) This section includes the most current, and the historical, smoking and tobacco-related health factors from the [place] facility where the Encounter took place.Current Smoking Status This section includes the most current smoking, or tobacco-related health factor, from the [place] facility where the Encounter took place. Date/Time Current Smoking Status Comment Facility May 11, 2021 01:18 PM VA-TOBACCO NEVER USED [facility] C [facility] [place] [facility] Encounter Notes: All associated encounter notes This section contains the clinical notes associated to the Encounter. Date/Time Encounter Note(s) Provider Source Jul 24, 2021 04:00 PM DIABETOLOGY NOTE: LEA CHRISTENSEN [facility] CNT RL [facility]STRN LOCAL TITLE: GLUCOSE PATIENT METER DATA [place] [facility] STANDARD TITLE: DIABETOLOGY NOTE DATE OF NOTE: JUL 24, 2021@16:00 ENTRY DATE: JUL 24, 2021@16:00:58 AUTHOR: LEA CHRISTENSEN EXP COSIGNER: URGENCY: STATUS: COMPLETED Name: vel berger : 1950 ID: [id number] Information from [employer] [facility] [employer] [employer] [facility] on 07/24/2021 Patient Name: vel berger Date Range: 06/25/2021 - 07/24/2021 bG values are displayed in mg/dL # of tests 10 Average 194 SD 97.3 Highest 394 Lowest 72 Avg tests/day 0.3 # HI 0 # LO 0 <80 10.0% 80-130 20.0% >130 70.0% Hypos(<70) 0 Date Range: 06/25/2021 - 07/24/2021 bG values are displayed in mg/dL 00:00- 05:30- 08:00- 11:00- 12:30- 17:00- 18:30 - :30- 05:30 08:00 11:00 12:30 17:00 18:30 21:30 00:00 06/25/2021 72 Mon 06/26/2021 121 07/01/2021 144 07/07/2021 111 07/09/2021 169 07/10/2021 198 07/11/2021 307 394 07/12/2021 239 07/16/2021 181 Date Range: 06/25/2021 - 07/24/2021 bG values are displayed in mg/dL 00:00- 05:30- 08:00- 11:00- 12:30- 17:00- 18:30 - 21:30- 05:30 08:00 11:00 12:30 17:00 18:30 21:30 00:00 # of tests 0 1 4 0 1 1 2 1 Average 0 121 151 0 307 394 219 72 SD 0 30.9 0 0 29 0 Hi/Lo 0 0 0 0 0 0 0 0 Date Range: 06/25/2021 - 07/24/2021 bG values are displayed in mg/dL 06/25/2021 10:37 PM 72 06/26/2021 6:17 AM 121 07/01/2021 10:17 AM 144 07/07/2021 8:49 AM 111 07/09/2021 8:06 AM 169 07/10/2021 7:22 PM 198 07/11/2021 2:18 PM 307 6:12 PM 394 07/12/2021 8:44 PM 239 07/16/2021 9:13 AM 181 End of information from [facility] /jamal/ LEA CHRISTENSEN LPN LICENSED PRACTICAL NURSE Signed: 07/24/2021 16:01
--- OUTSIDE RECORDS SUMMARY | 2022-07-08 12:27 | XMS_ITS | Encounter Summary ---
:1950 Author Organization Department of [facility] rs Address [address] [place] [address] Support Name Relationship Address Phone GONZÁLEZ BERGERSON Rosmery Unavailable [address] [place] [address] [place] [address] AMELIA BERGER Unavailable [address] [place] [address] Insurance Providers: All historical and current Section [...] AARP INS PRESCRIPT MEDIC Sep 16, PDPIND [id number] [phone] YESSI BERGERZhane PATIENT ION ARE D 2017 251 9 IS MEDICAID MEDICAID [facility] Jul 17, MEDICAI [id number] [phone] DAYAMI BERGER PATIENT EALTH 2014 D [id number] IS [place] MEDICARE MEDICARE PART Sep 16, PART A [id number] [phone] Rosmery BERGER PATIENT (WNR) (M) A 2010 00 IS MEDICARE MEDICARE PART Sep 16, PART B [id number] [phone] Rosmery BERGER PATIENT (WNR) (M) B 2010A 00 IS MEDICARE MEDICARE PART Sep 16, PART A [id number] Rosmery BERGER PATIENT (WNR) (M) A 2010 XH29 2 IS MEDICARE MEDICARE PART Sep 16, PART B [id number] Rosmery BERGER PATIENT (WNR) (M) B 2010 XH29 2 IS Selected Encounter This section includes the information on record at [place] for the Encounter. Date/Time Encounter Type Encounter Reason Provider Source Description Jul 24, 2021 OFFICE O/P EST ENDOCRINOLOGY ICD-10-CM I10 DELMER STALLINGS 03:30 PM MOD 30-39 MIN Essential (primary) hypertension with Provider Comments: Hypertension ([facility] [id number]) IHE Encounter Template Text not used by [place] Assessments - Encounter Diagnoses This section includes the primary and secondary diagnoses documented for the Encounter. Date/Time Primary/Secondary Diagnosis Name Provider Source Diagnosis Jul 24, 2021 PRIMARY Essential DELMER STALLINGS [place] CNTRL WSTRN 04:41 PM (primary) [facility] hypertension Jul 24, 2021 SECONDARY Hyperlipidemia, [facility]41 PM unspecified [facility] Jul 24, 2021 SECONDARY Type 2 diabetes [facility] 04:41 PM mellitus without [facility] complications Plan of Treatment: Future Appointments (+ 6 months) and Future Tests (+/- 45 days) The Plan of Treatment section includes future care activities for the patient from all [place] treatmentfacilities. This section includes future appointments and future orders which are active, pending orscheduled.Future Appointments This section includes appointments that were scheduled to occur 6 months from the date of the Encounter, up to a maximum of 20 appointments. The data comes from all [place] treatment facilities. Appointment Date/Time Appointment Type Appointment Facili ty Name Oct 18, 2021 10:15 AM [facility] Oct 25, 2021 12[facility]00 [facility] [place] [facility] Oct 26, 2021 10:00 AM [facility] [place] [facility] Nov 01, 2021 03:00 PM [facility] [place] [facility] Nov 10, 2021 10:00 AM [facility] Nov 13, 2021 09:00 AM [facility] Nov 16, 2021 02:30 PM [facility] Nov 16, 2021 03:00 PM [facility] Dec 21, 2021 03:30 PM [facility] Jan 05, 2022 03:30 PM [facility] [place] [facility] Vital Signs: All taken on the encounter date This section contains inpatient and outpatient Vital Signs collected on the date of the Encounter. Date/Time Temperature Pulse Blood Respiratory SP02 Pain Height Weight Aleksander dy Source Pressure Rate Mass Index Jul 24 144/88 97 % 0 229.6 35 [place] 2020 03:54 /min mm[Hg] lb [facility] PM [place] [facility] Social History: Smoking Status (Most current) and Tobacco Use (All prior to encounter date) This section includes the most current, and the historical, smoking and tobacco-related health factors from the [place] facility where the Encounter took place.Current Smoking Status This section includes the most current smoking, or tobacco-related health factor, from the [place] facility where the Encounter took place. Date/Time Current Smoking Status Comment Facility May 11, 2021 01:18 PM VA-TOBACCO NEVER USED [place] C NTRL [place] [facility] Encounter Notes: All associated encounter notes This section contains the clinical notes associated to the Encounter. 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 Overall doing pretty well. Able to walk a mile to two miles twice a week with rollator, not sitting with thi s. Ne still has a little lightheaded on rising, but thinks that this is i mproving. He is paying close attention. Barriers/s supports for care: Has SO. Son, gdtr, and friend of gdtr live with him. SO generally cooks dinner, son cooks b fast. Lunch is consistent. He feels well informed about CHO. Medications for diabetes: novolog and lant us 55 units daily dinner BG readings: tested only 10 times in 30 days. There is not encough data to base decisions on 06/23/2021 10:18 BLOOD 7.4 H 08/08/2020 14:19 BLOOD 8.8 H 12/10/2019 10:08 BLOOD 7.9 H 09/14/2019 09:26 BLOOD 7.4 H 06/02/2019 11:36 BLOOD 8.2 H Weight trend: gained 13 lbs back to baseline omid t, after hospital stay. Food insecurity no Physical activity: walks with walker and getting stronger. Episodes of hypoglycemia: one recorded Hypoglyce ciara unawareness:no Neuropathy pain: doing well Last eye evaluation: 12/[address] Last nephropathy screen MICROALBUMIN Feb 16, 2021@13:31 URINE mALB/Cr: 62.6 H mg/G 0 - 29.9 FindingsCREATININE-EGFR 06/23/21 10:18 1.26 02/16/21 13:31 1.31 08/08/20 14:19 1.29 Statin therapy: Jun 23 2021 10:18 CHOL 141 mg/dL 0 - 199 TRIG 83 mg/dL 0 - 150 HDL 30 L mg/dL 40 - 60 LDL 94 mg/dL 0 - 129 CAD:PVC On asa: yes emergency kit/glucose tabs: yes, up to date SO a nd Dtr know how to use kit Active problems - Computerized Problem List is t he source for the followin. Cerebellar stroke syndrome 2. Chronic kidney disease 3. Osteoarthritis 4. Computed tomography result abnormal 5. Low back pain 6. Type II diabetes mellitus 7. Essential hypertension 8. Overweight 9. Allergy to peanuts 10. UTI 11. Claudication (SNOMED CT 274562869) 12. Elevated Prostate Specific antigen [psa] 13. Overweight (SNOMED CT 629849271) 14. Low Back Pain * 15. 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 Impotence of organic origin 17. Colorectal Cancer Screening Results Document ed and Reviewed (PV) 18. Simple upper Gastrointestinal Endoscopy 19. Postsurgical Percutaneous Transluminal Coron chet Angioplasty Status 20. Postsurgical Status of Cataract Extraction 21. Diabetes mellitus (SNOMED CT 20518977) 22. MRSA SKIN INFECTION 23. Cocaine abuse, continuous use 24. GERD * 25. Corneal Abrasion 26. Hypertension (SNOMED CT 71922969) 27. Diabetic Neuropathies 28. Onychomycosis * 29. Cataract, PSC/Post Subcapsular 30. Cataract, Cortical (Senile) 31. Background diabetic retinopathy 32. Cyst, ganglion 33. Cervical Radiculopathy 34. Shoulder Pain 35. Hyperlipidemia (SNOMED CT 90301840) 36. Old Myocardial Infarction 37. Depressive Disorder NOS Active Outpatient Medications (including Supplie s): GLUCOSE 4GM CHEW TAB CHEW FOUR TABLETS BY MOUTH ONE TIME ACTIVE NEEDED FOR LOW BLOOD SUGAR INSULIN,ASPART 100UN/ML KELLY FLEXPEN 3ML INJECT 7 UNITS ACTIVE SUBCUTANEOUSLY EVERY MORNING AND INJECT 5 UNITS ONCE DAILY AT LUNCH AND INJECT 5 UNITS EVERY EVENING BEFORE SUPPER INSULIN,GLARGINE 100 UNT/ML 3ML SOLOSTAR INJECT 70 UNITS ACTIVE SUBCUTANEOUSLY ONCE DAILY FOR DIABETES LANCET,SOFTCLIX USE 1 LANCET DIRECTED THREE T IMES A DAY ACTIVE TO TEST BLOOD SUGAR NEEDLE,PEN 32G,4MM USE 1 NEEDLE SUBCUTANEOUSLY F OUR TIMES ACTIVE A DAY FOR USE WITH INSULIN PENS TADALAFIL 10MG TAB TAKE ONE TABLET BY MOUTH ONCE DAILY ACTIVE (S) NEEDED Non-VA ALCOHOL PREP PAD 1 PAD TOPICALLY FOUR TONE ES A DAY ACTIVE Non-VA APIXABAN 5MG TAB 5MG BY MOUTH ONCE DAILY ACTIVE Non-VA ASPIRIN 81MG EC TAB 81MG BY MOUTH DAILY A CTIVE Non-VA ATORVASTATIN CALCIUM 80MG TAB 40MG BY CAROLYNE TH AT ACTIVE BEDTIME Non-VA DOXAZOSIN MESYLATE 8MG TAB 8 MG BY MOUTH AT BEDTIME ACTIVE Non-VA FEXOFENADINE HCL 60MG TAB 60MG BY MOUTH O NCE DAILY ACTIVE Non-VA FLUDROCORTISONE ACETATE 0.1MG TAB 0.1MG B Y MOUTH ACTIVE TWICE DAILY Non-VA INSULIN,ASPART (NOVOLOG) INJ 7UNITS BREAK FAST, ACTIVE 8UNITS LUNCH, 8UNIT DINNER SUBCUTANEOUSLY Non-VA INSULIN,GLARGINE (LANTUS SOLOSTAR PEN) IN J 60UNITS ACTIVE SUBCUTANEOUSLY ONCE DAILY Non-VA MAGNESIUM OXIDE TAB 400MG BY MOUTH TWICE DAILY ACTIVE Non-VA METFORMIN HCL 1000MG TAB 1000MG BY MOUTH TWICE ACTIVE DAILY Non-VA METOPROLOL TARTRATE 25MG TAB 25MG BY MOUT H TWICE ACTIVE DAILY Non-VA MIDODRINE HCL 10MG TAB 10MG BY MOUTH TWIC E DAILY ACTIVE Non-VA OTHER CAP/TAB CBD OIL BY MOUTH ONCE DAILY ACTIVE Non-VA PANTOPRAZOLE NA 40MG EC TAB 40MG BY MOUTH EVERY ACTIVE MORNING 30 MINUTES BEFORE BREAKFAST Non-VA VALSARTAN 40MG TAB 40MG BY MOUTH ONCE MEMO LY ACTIVE Non-VA VITAMIN B COMPLEX CAP,ORAL BY MOUTH ON FR IDAY ACTIVE SHX:SO attends ROS: no cough no fever no SOB PE: affect pleasant appropriate speaking easily in full sentences Feet pulses modest decrease sensory to monofilamentdecreased lesions no Medical Decision Making: Diabetes: TEST TID at rotating times and schedul e nursing visit for meter upload three weeks. Insulin Dose: No change pending further informat ion. Carbohydrate targets 45 gm tid. Blood sugar targets 90-120 premeal and 140-170 after. Hemoglobin A1c Targets 7-7.5 He expresses that he understands and agrees with plan orthostatic hypotension Discussed alternative a pproaches to management with amlodipine. He and SO feel t hat after many med changes, he is doing better than at any time in the past, and do not want to cohen ge medications. Obesity States he knows what to do to lose weigh t not ready to set goal, but expresses sam t weight loss would help with mobility and that this is very important to him. Hyperlipidemia increase atorvastatin to 80 mg da lewis. Team follow up none at this time lab FLP hgba1c microalb bmp next visit. F/u three mos FTF. WHOLE HEALTH MOTIVATIONAL INTERVIEWING The following Motivational Interviewing skills w ere used in this interaction Engaged individual using OARS skills Focused the conversation by exploring ambivalen ce food and drink Medication Reconciliation: Outpatient: Has the patient been taking medications as docu mented in the EMLR? YES: The patient has been taking medications as documented in the EMLR. Essential Medication List for Review used to co mplete this medication reconciliation. INCLUDED IN THIS LIST: Alphabetical list of act joe outpatient prescriptions dispensed from this [facility] (local) an d dispensed from another [place] or DoD facility (remote) as well as [...] whether with a VA or non-VA provider. /keshawn STALLNIGS MD STAFF PHYSICIAN Signed: 07/24/2021 16:41 07/24/2021 ADDENDUM STATUS: COMPLETED He does not have a computer, and does not use [employer]. /keshawn STALLINGS MD STAFF PHYSICIAN Signed: 07/24/2021 16:45
--- OUTSIDE RECORDS SUMMARY | 2022-07-08 12:27 | XMS_ITS | Encounter Summary ---
:1950 Author Organization Department of [facility] rs Address [address] [place] [address] Support Name Relationship Address Phone THANIA BERGER Rosmery Unavailable [address] [place] [address] AMELIA BERGER Unavailable [address] [place] [address] Insurance Providers: All historical and current Section [...] AARP INS PRESCRIPT MEDIC Sep 16, PDPIND [id number] [phone] YESSI BERGERZhane PATIENT ION ARE D 2017 251 [id number] IS MEDICAID MEDICAID [facility] Jul 17, MEDICAI [id number] [id number] DAYAMI BERGER PATIENT EALTH 2014 D [id number] IS STAND CHRISTOPHER MEDICARE MEDICARE PART Sep 16, PART A [id number] [phone] Rosmery BERGER PATIENT (WNR) (M) A 2010 00 IS MEDICARE MEDICARE PART Sep 16, PART B [id number] [phone] Rosmery BERGER PATIENT (WNR) (M) B 2010A 00 IS MEDICARE MEDICARE PART Sep 16, PART A [id number] Rosmery BERGER PATIENT (WNR) (M) A 2010 XH29 2 IS MEDICARE MEDICARE PART Sep 16, PART B [id number] Rosmery BERGER PATIENT (WNR) (M) B 2010 XH29 2 IS Selected Encounter This section includes the information on record at [place] for the Encounter. Date/Time Encounter Type Encounter Description Reason Provider Source Sep 12, 2021 08:15 Outpatient Encounter TELEPHONE TRIAGE AM IHE Encounter Template Text not used by [place] Plan of Treatment: Future Appointments (+ 6 months) and Future Tests (+/- 45 days) The Plan of Treatment section includes future care activities for the [facility] [place] [facility] This section includes future appointments and future orders which are active, pending orscheduled.Future Appointments This section includes appointments that were scheduled to occur 6 months from the date of the Encounter, up to a maximum of 20 appointments. The data comes from all [place] treatment facilities. Appointment Date/Time Appointment Type Appointment Facili ty Name Oct 18, 2021 10:15 AM [facility] Oct 25, 2021 12:00 PM [place] [facility] [facility] Oct 26, 2021 10:00 AM [facility] [place] [place] [facility] Nov 01, 2021 03:00 PM [facility] [place] [facility] Nov 10, 2021 10:00 AM [facility] Nov 13, 2021 09:00 AM [facility] Nov 16, 2021 02:30 PM [facility] Nov 16, 2021 03:00 PM [facility] Dec 21, 2021 03:30 PM [facility] Jan 05, 2022 03:30 PM [facility] [place] [place] [facility] January 23, 2022 03:00 PM [place] [facility] [place] [facility] Feb 14, 2022 08:00 AM [place] [facility] [place] [facility] Mar 06, 2022 03:00 PM [facility] Mar 09, 2022 12:00 PM [facility] Social History: Smoking Status (Most current) and Tobacco Use (All prior to encounter date) This section includes the most current, and the historical, smoking and tobacco-related health factors from the [place] facility where the Encounter took place.Current Smoking Status This section includes the most current smoking, or tobacco-related health factor, from the [place] facility where the Encounter took place. Date/Time Current Smoking Status Comment Facility May 11, 2021 01:18 PM VA-TOBACCO NEVER USED [place] [facility] [place] [facility] Encounter Notes: All associated encounter notes This section contains the clinical notes associated to the Encounter. Date/Time Encounter Note(s) Provider Source Sep 12, 2021 08:15 AM TELEPHONE ENCOUNTER NOTE: ALYSSA DHILLON CNTRL [facility] LOCAL TITLE: VISN 1 CCC ACTION [facility]IRED [facility] ST[facility] TITLE: TELEPHONE ENCOUNTER NOTE DATE OF NOTE: SEP 12, 2021@08:15 ENTRY DATE: SEP 12, 2021@08:16:34 AUTHOR: ALYSSA DHILLON EXP COSIGNER: URGENCY: STATUS: COMPLETED VISN 1 CCC ACTION REQUIRED Has ADDENDA The patient, JESSICA BERGER ([id number]) Phone: called the call center. The following identifiers were used to verify th is patient: DOB. WILKERSON. Contact Type of call: PHARMACY. Caller Response: ADM CALL RESOLVED Caller Area: [facility] Provider Info: [facility] ([id number]) PACT: SO PACT 4 (Focus: Primary Care Only) Primary Care Provider: Ambika Orozco PHONE:[phone] Ginger Farmer: Dorcas Fox Clinical Associate: Joey Mcgrath PHON [phone] Watch Commander: Dorcas Rosales PHONE:[phone] PACT Clinical Pharmacist: Briana Downey Clinical POC: Ginger Farmer Lisa Fox Administrative POC: Watch Commander Dorcas Rosales PHONE:[phone] Author: ALYSSA DHILLON Comments: [place] called to request a new Glucose meter be cause he has lost his. Kindly mail upon approval. Evaluation/Management Code: HC PRO PHONE CALL 5- 10 MIN ([phone]). Starting at: 09/12/2021 @ 8:15:00 AM Ending at: 09/12/2021 @ 8:15:54 AM Length: 0 minutes. Chief Complaint: Not applicable to call. Class Code: Other specified counseling. Patient's Email Address: /keshawn DHILLON [employer] Coordinator Signed: 09/12/2021 08:16 Receipt Acknowledged By: * AWAITING SIGNATURE * DORCAS FOX 09/12/2021 08:30 /jamal/ JOEY MCGRATH LPN LICENSED PRACTICAL NURSE 09/12/2021 ADDENDUM STATUS: COMPLETED Will include PCP for order. /jamal/ JOEY MCGRATH LPN LICENSED PRACTICAL NURSE Signed: 09/12/2021 08:30 Receipt Acknowledged By: * AWAITING SIGNATURE * AMBIKA OROZCO
--- OUTSIDE RECORDS SUMMARY | 2022-07-08 12:27 | XMS_ITS | Encounter Summary ---
:1950 Author Organization Department of [facility] rs Address [address] [place] [address] Support Name Relationship Address Phone THANIA BERGER [place] [address] AMELIA BERGER Unavailable [address] [place] [address] Insurance Providers: All historical and current Section [...] AARP INS PRESCRIPT MEDIC Sep 16, PDPIND [id number] [phone] YESSI BERGERZhane PATIENT ION ARE D 2017 251 9 IS MEDICAID MEDICAID [facility] Jul 17, MEDICAI [id number] [phone] YESSI BERGERZhane PATIENT EALTH 2014 D [id number] 900 IS STAND [place]RISTOPHER MEDICARE MEDICARE PART Sep 16, PART A [id number] [phone] Rosmery BERGER PATIENT (WNR) (M) A 2010 00 IS MEDICARE MEDICARE PART Sep 16, PART B [id number] [phone] Rosmery BERGER PATIENT (WNR) (M) B 2010 00 IS MEDICARE MEDICARE PART Sep 16, PART A [id number] Rosmery BERGER PATIENT (WNR) (M) A 2010 XH29 2 IS MEDICARE MEDICARE PART Sep 16, PART B [id number] Rosmery BERGER PATIENT (WNR) (M) B 2010 XH29 2 IS Selected Encounter This section includes the information on record at [place] for the Encounter. Date/Time Encounter Type Encounter Reason Provider Source Description Oct 25, 2021 Outpatient TELEPHONE/MEDICI ICD-10-CM E11.8 DELMER STALLINGS 12:00 PM Encounter NE Type 2 diabetes mellitus with unspecified complications with Provider Comments: Type II diabetes mellitus ([facility] [id number]) IHE Encounter Template Text not used by [place] Assessments - Encounter Diagnoses This section includes the primary and secondary diagnoses documented for the Encounter. Date/Time Primary/Secondary Diagnosis Name Provider Source Diagnosis Oct 25, 2021 PRIMARY Type 2 diabetes [place] [facility] RN 12:00 PM mellitus with [place] [facility] unspecified complications Oct 25, 2021 SECONDARY Essential [place] [facility] 12:00 PM (primary) [facility] hypertension Oct 25, 2021 SECONDARY Hyperlipidemia, [facility] WST RN 12:00 PM unspecified [facility] Plan of Treatment: Future Appointments (+ 6 months) and Future Tests (+/- 45 days) The Plan of Treatment section includes future care activities for the patient from all [place] treatmentfacilities. This section includes future appointments and future orders which are active, pending orscheduled.Future Appointments This section includes appointments that were scheduled to occur 6 months from the date of the Encounter, up to a maximum of 20 appointments. The data comes from all [place] treatment facilities. Appointment Date/Time Appointment Type Appointment Facili ty Name Oct 26, 2021 10:00 AM [facility] [place] [facility] [place] [facility] Nov 01, 2021 03:00 PM [facility] [place] [place] [facility] Nov 10, 2021 10:00 AM [facility] Nov 13, 2021 09:00 AM AMBULATORY [facility] Nov 16, 2021 02:30 PM [facility] Nov 16, 2021 03:00 PM [facility] Dec 21, 2021 03:30 PM [facility] Jan 05, 2022 03:30 PM [facility]ULATORY [facility] [place] [place] [facility] January 23, 2022 03:00 PM [facility]ULATORY [facility] [place] [place] [facility] Feb 14, 2022 08:00 AM [facility] [place] [place] [facility] Mar 06, 2022 03:00 PM [facility]ORY [facility] Mar 09, 2022 12:00 PM [facility] Mar 23, 2022 01:30 PM [facility] Mar 26, 2022 04:00 PM [facility] Apr 02, 2022 04:00 PM [facility] Apr 17, 2022 03:15 PM [facility] Lab Results: +/- 30 days of the encounter This section includes the Chemistry and Hematology Lab Results on record with [place] for the patient. Radiology Reports and Pathology Reports are provided separately, in subsequent sections.Lab Results This section contains the Chemistry/Hematology Results that were resulted 30 days before or 30 daysafter the date of the Encounter. Date/Time Source Result Type Result - Unit Interpretation Reference Range Comment Nov 16, 2021 [place] [facility] BASIC METABOLIC PANEL Specimen Type: SERUM 02:27 PM [facility] (non-fasting) No comment enter ed. Ordering Provid er: DELMER STALLINGS Report Released Date/Time: Oct 25, 2021 12:46 PM Reporting Lab: [facility] [place] [facility] [address] [facility] [address] Performing Lab: [facility] [place] [facility] [address] [facility] [address] UREA NITROGEN 27 H 7-25 GLUCOSE 349 H 65-100 SODIUM 135 135-145 POTASSIUM 4.4 3.5-5.0 CHLORIDE 100 100-110 CO2 26 20-30 CREATININE, Serum 1.89 H 0.50-1.40 eGFR (IDMS) 36 L >60 Oct 18, 2021 10:04 AM [facility] PSA Specimen Type: SERUM Comment: *BASIC METABOLIC PANEL (fasting) Not Performed: Oct 18, 2021@10:05 b *ICT EDUCATOR Reason: DUP ORDER Ordering Provid er: AMBIKA KNIGHT Report Released Date/Time: May 11, 2021 01:37 PM Reporting Lab: [place] [facility] [place] [facility] [address] [facility] [address] Performing Lab: [facility] [place] [facility] [address] [facility] [address] PSA 1.68 0.00-4.00 Oct 18, 2021 10:04 AM [facility] TSH Specimen Type: SERUM Comment: *BASIC METABOLIC PANEL (fasting) Not Performed: Oct 18, 2021@10:05 b *ICT EDUCATOR Reason: DUP ORDER Ordering Provid er: AMBIKA KNIGHT Report Released Date/Time: May 11, 2021 01:37 PM Reporting Lab: [facility] [place] [facility] [address] [facility] [address] Per[facility]: [facility] [place] [facility] [address] [facility] [address] TSH 2.37 0.35-5.00 Oct 18, [facility] HEM[facility] A[facility]C PAN[facility] Specimen T ype: BLOOD 10:04 AM [place] [facility] Comment: Testin g performed by NGSP certified [...] Jul 24, 2021 04:34 PM Reporting Lab: [facility] [place] [facility] [address] [facility] [address] Performing Lab: [facility] [place] [facility] [address] [facility] [address] HEMOGLOBIN A1C 9.7 H 4.0-5.6 Oct 18, 2021 10:04 [facility] LIPID PANEL FASTING Specimen Type: SERUM [facility] No comment enter ed. Ordering Provid er: DELMER STALLINGS Report Released Date/Time: Jul 24, 2021 04:34 PM Reporting Lab: [facility] [place] [facility] [address] [facility] [address] Performing Lab[facility] [place] [facility] [address] [facility] [address] CHOLESTEROL 176 <7-199 TRIGLYCERIDE 179 H 0-150 LDL calculated 108 0-129 CHOL/HDL 5.5 HDL CHOLESTEROL 32 L 40-60 Oct 18, 2021 10:04 [facility] [place] ALBUMIN S pecimen Type: SERUM AM HCS No comment enter ed. Ordering Provid er: MELANIA VINCENT Report Released Date/Time: Jun 28, 2021 09:09 AM Reporting Lab: [facility] [place] [facility] [address] [facility] [address] Performing Lab: [facility] [place] [facility] [address] [facility] [address] ALBUMIN 4.0 3.5-5.0 Oct 18, 2021 [facility] VITAMIN D (25-[place]) Specimen Type : SERUM 10:04 AM [place] [facility] No comment enter ed. Ordering Provid er: MELANIA VINCENT Report Released Date/Time: Jun 28, 2021 09:09 AM Reporting Lab: [facility] [place] [facility] [address] [facility] [address] Performing Lab: [facility] [place] [facility] [address] [facility] [address] VITAMIN D (25-OH) 37 20-50 Oct 18, 2021 10:04 AM [facility] [place] CBC Specimen Type: BLOOD HCS No comment enter ed. Ordering Provid er: MELANIA VINCENT Report Released Date/Time: Jun 28, 2021 09:09 AM Reporting Lab: [facility] [place] [facility] [address] [facility] [address] Performing Lab: [facility] [place] [facility] [address] [facility] [address] WBC 7.69 4.50-11.00 RBC 5.16 4.23-5.66 HGB 12.9 12.8-17 HCT 40.7 39.2-50.4 MCV 78.9 L 82-99 MCHC 31.7 30.8-35.1 PLT 320 140-360 RDW-CV 17.8 H 12.0-16.0 MCH 25.0 L 26.2-32.6 Oct 18, 2021 [facility] BASIC METABOLIC PANEL Specimen Type: SERUM 10:04 AM [place] [facility] (non-fasting) No comment enter ed. Ordering Provid er: MELANIA VINCENT Report Released Date/Time: Jun 28, 2021 09:09 AM Reporting Lab: [facility] [address] [facility] [address] Performing Lab: [facility] [address] [facility] [address] UREA NITROGEN 21 7-25 GLUCOSE 302 H 65-100 SODIUM 136 135-145 POTASSIUM 4.7 3.5-5.0 CHLORIDE 103 100-110 CO2 24 20-30 CREATININE, Serum 1.74 H 0.50-1.40 eGFR (IDMS) 39 L >60 Social History: Smoking Status (Most current) and Tobacco Use (All prior to encounter date) This section includes the most current, and the historical, smoking and tobacco-related health factors from the [place] facility where the Encounter took place.Current Smoking Status This section includes the most current smoking, or tobacco-related health factor, from the [place] facility where the Encounter took place. Date/Time Current Smoking Status Comment Facility May 11, 2021 01:18 PM VA-TOBACCO NEVER USED [facility] Encounter Notes: All associated encounter notes This section contains the clinical notes associated to the Encounter. Date/Time Encounter Note(s) Provider Source Oct 25, 2021 12:15 PM PHYSICIAN NOTE: DELMER STALLINGS [facility] W STRN LOCAL TITLE: MD [facility] STANDARD TITLE: PHYSICIAN NOTE DATE OF NOTE: OCT 25, 2021@12:15 ENTRY DATE: OCT 25, 2021@12:15:40 AUTHOR: DELMER STALLINGS EXP COSIGNER: URGENCY: STATUS: COMPLETED Due to COVID 19, this visit was conducted as a t elephone encounter. 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 Walks w ith walker. Orthostatic hypotension is not making him dizzy on medicatio n. Barriers/s supports for care: Has SO Son, dtr, g dtr and friend of gdtr Live with him. Family members generally cook two meals a day. Emotional eating due to losses related to back pain and CVA. Fami ly are very supportive. No longer able to get his own groceries. Endorses e ating unhealthy choices. Medications for diabetes: and lantus 55 un its HS. BG readings: F 235 188 190 177 203 215 234 L D H Collection DT Spec HGBA1c 10/18/2021 10:04 BLOOD 9.7 H 06/23/2021 10:18 BLOOD 7.4 H 08/08/2020 14:19 BLOOD 8.8 H 12/10/2019 10:08 BLOOD 7.9 H 09/14/2019 09:26 BLOOD 7.4 H Weight trend: 230 clinic weight in July Food insecurity Pattern of eating throughout the day:three meals Physical activity: very limited by LBP and cva Carbohydrate counting: Episodes of hypoglycemia: Hypoglycemia unawarene ss: Neuropathy pain: no Last eye evaluation:12/[address] or [place] Last nephropathy screen MICROALBUMIN FindingsCREATININE-EGFR 10/18/21 10:04 1.74 H foll owed by Nephrology 06/23/21 10:18 1.26 02/16/21 13:31 1.31 Statin therapy: SERUM Oct 18 Jun 23 Reference 2021 2020 10:04 10:18 CHOL 176 141 mg/dL <7 - 199 TRIG 179 H 83 mg/dL 0 - 150 HDL 32 L 30 L mg/dL 40 - 60 LDL 108 94 mg/dL 0 - 70 CAD:PVD On asa:yes, and apixaban emergency kit/glucose tabs: SO and dtr know how to use glucagon kit Active problems - Computerized Problem List is t he source for the followin. Cerebellar stroke syndrome 2. Chronic kidney disease 3. Osteoarthritis 4. Computed tomography result abnormal 5. Low back pain 6. Type II diabetes mellitus 7. Essential hypertension 8. Overweight 9. Allergy to peanuts 10. UTI 11. Claudication (SNOMED CT 297274681) 12. Elevated Prostate Specific antigen [psa] 13. Overweight (SNOMED CT 439247276) 14. Low Back Pain * 15. 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 Impotence of organic origin 17. Colorectal Cancer Screening Results Document ed and Reviewed (PV) 18. Simple upper Gastrointestinal Endoscopy 19. Postsurgical Percutaneous Transluminal Coron chet Angioplasty Status 20. Postsurgical Status of Cataract Extraction 21. Diabetes mellitus (SNOMED CT 33943249) 22. MRSA SKIN INFECTION 23. Cocaine abuse, continuous use 24. GERD * 25. Corneal Abrasion 26. Hypertension (SNOMED CT 61455944) 27. Diabetic Neuropathies 28. Onychomycosis * 29. Cataract, PSC/Post Subcapsular 30. Cataract, Cortical (Senile) 31. Background diabetic retinopathy 32. Cyst, ganglion 33. Cervical Radiculopathy 34. Shoulder Pain 35. Hyperlipidemia (SNOMED CT 85740045) 36. Old Myocardial Infarction 37. Depressive Disorder NOS Active Outpatient Medications (including Supplie s): ACCU-CHEK GUIDE ME (GLUCOSE) METER USE METER TO TEST BLOOD ACTIVE SUGARS DIRECTED BY PROVIDER INSULIN,ASPART 100UN/ML KELLY FLEXPEN 3ML INJECT 7 [...] ONE TABLET BY MOUTH ONCE DAILY ACTIVE NEEDED Non-VA ALCOHOL PREP PAD 1 PAD TOPICALLY FOUR TONE ES A DAY ACTIVE Non-VA APIXABAN 5MG TAB 5MG BY MOUTH ONCE DAILY ACTIVE Non-VA ASPIRIN 81MG EC TAB 81MG BY MOUTH DAILY A CTIVE Non-VA ATORVASTATIN CALCIUM 80MG TAB 80MG BY CAROLYNE TH AT ACTIVE BEDTIME Non-VA DOXAZOSIN MESYLATE 8MG TAB 8 MG BY MOUTH AT BEDTIME ACTIVE Non-VA FEXOFENADINE HCL 60MG TAB 60MG BY MOUTH O NCE DAILY ACTIVE Non-VA FLUDROCORTISONE ACETATE 0.1MG TAB 0.1MG B Y MOUTH ACTIVE TWICE DAILY Non-VA INSULIN,ASPART (NOVOLOG) INJ 7UNITS BREAK FAST, ACTIVE 8UNITS LUNCH, 8UNIT DINNER SUBCUTANEOUSLY disco ntinued non va Non-VA INSULIN,GLARGINE (LANTUS SOLOSTAR PEN) IN J 60UNITS ACTIVE SUBCUTANEOUSLY ONCE DAILYdiscontinued non va Non-VA MAGNESIUM OXIDE TAB 400MG BY MOUTH [...] CAP,ORAL BY MOUTH ON FR IDAY ACTIVE Glucagon , renewed SHX:as above ROS: no cough no fever no SOB PE: affect pleasant appropriate speaking easily in full sentences Medical Decision Making: Diabetes: Decrease metformin to 500 mg daily. Em pagliflozin would be reasonable, but concerns for dehydration/ARF wit h elevated bg. Insulin Dose: novolog / and lantus 55 units . Rotate times of testing to include predinner and HS. We discussed m otivations for dietary change to havae more energy and feel better with better dm contr ol. He is now interested in exploring a sensor. Carbohydrate targets 45 gm tid Blood sugar targets 130 premeal and 150-180 aft er. Hemoglobin A1c Targets 7.5 chronic renal disease due to diabetes notify Dr. Vincent of decrease in GFR Repeat bmp two weeks Hyperlipidemia reassess, as renal function cowan ing, and we are working towards better bg control Obesity see above, has declined program Team follow up refer dm educator to discuss sens or lab flp bmp hgba1c next visit. Insulin orders updated in cprs 30 min telephone encounter. F/u three mos telex [place] nurse, please assist pt t o make appt for lab Medication Reconciliation: Outpatient: Has the patient been taking medications as docu mented in the EMLR? No: Discrepencies were identified. See below. Essential Medication List for Review used to [...] discontinued in the past 90 days. - Discrepancies were identified, addressed, and discussed with the patient/caregiver at this encounter. - All changes in medications, including all non -VA/Herbal/OTC medications were entered into CPRS. - If there were any medications the patient shanda uld no longer take, they were discontinued. - The patient/caregiver was instructed to updat e this list, discard old lists, and take this list to the next appointme nt, whether with a VA or non-VA provider. /jamal/ DELMER STALLINGS MD STAFF PHYSICIAN Signed: 10/25/2021 12:48 Receipt Acknowledged By: * AWAITING SIGNATURE * LEA CHRISTENSEN * AWAITING SIGNATURE * MELANIA VINCENT
--- OUTSIDE RECORDS SUMMARY | 2022-07-08 12:27 | XMS_ITS | Encounter Summary ---
:1950 Author Organization Department of [facility] rs Address [address] [place] [id number] Support Name Relationship Address Phone THANIA BERGER [place] [address] AMELIA BERGER Unavailable [address] [place] [address] Insurance Providers: All historical and current Section [...] AARP INS PRESCRIPT MEDIC Sep 16, PDPIND [id number] [phone] YESSI BERGERZhane PATIENT ION ARE D 2017 [id number] IS MEDICAID MEDICAID [facility] Jul 17, MEDICAI [id number] [phone] DAYAMI BERGER PATIENT EALTH 2014 D [id number] IS [place] MEDICARE MEDICARE PART Sep 16, PART A [id number] [phone] Rosmery BERGER PATIENT (WNR) (M) A 2010 00 IS MEDICARE MEDICARE PART Sep 16, PART B [id number] [phone] Rosmery BERGER PATIENT (WNR) (M) B 2010 00 IS MEDICARE MEDICARE PART Sep 16, PART A [id number] Rosmery BERGER PATIENT (WNR) (M) A 2010 [id number] 2 IS MEDICARE MEDICARE PART Sep 16, PART B [id number] Rosmery BERGER PATIENT (WNR) (M) B 2010 [id number] 2 IS Selected Encounter This section includes the information on record at [place] for the Encounter. Date/Time Encounter Type Encounter Reason Provider Source Description Jul 24, 2021 [facility] ICD-10-CM N52.8 GRICEL OROZCO ISTI 10:59 AM ASSMT&MGMT 5-10 Other male E J erectile dysfunction with Provider Comments: Other Male Erectile Dysfunction IHE Encounter Template Text not used by [place] Assessments - Encounter Diagnoses This section includes the primary and secondary diagnoses documented for the Encounter. Date/Time Primary/Secondary Diagnosis Name Provider Source Diagnosis Jul 24, 2021 PRIMARY Other male NELA OROZCO CYNTHIA CBO C 11:03 AM erectile E J dysfunction Plan of Treatment: Future Appointments (+ 6 months) and Future Tests (+/- 45 days) The Plan of Treatment section includes future care activities for the patient from all [place] treatmentfacilities. This section includes future appointments and future orders which are active, pending orscheduled.Future Appointments This section includes appointments that were scheduled to occur 6 months from the date of the Encounter, up to a maximum of 20 appointments. The data comes from all [place] treatment facilities. Appointment Date/Time Appointment Type Appointment Facili ty Name Oct 18, 2021 10:15 AM [facility] Oct 25, 2021 [facility] Oct 26, 2021 10:00 AM [facility] Nov 01, 2021 03[facility] Nov 10, 2021 10:00 AM [facility] Nov 13, 2021 09:00 AM [facility] Nov 16, 2021 02:30 PM [facility] Nov 16, 2021 03:00 PM [facility] Dec 21, 2021 03:30 PM [facility] Jan 05, 2022 03:30 PM [facility] Encounter Notes: All associated encounter notes This section contains the clinical notes associated to the Encounter. Date/Time Encounter Note(s) Provider Source Jul 24, 2021 10:59 AM PHARMACY CONSULT: TAMMY OROZCO [facility] LOCAL TITLE: CONSULT REPORT/PRIOR AUTH FACILITY PADR STANDARD TITLE: PHARMACY CONSULT DATE OF NOTE: JUL 24, 2021@10:59 ENTRY DATE: JUL 24, 2021@10:59:46 AUTHOR: TAMMY OROZCO EXP COSIGNER: URGENCY: STATUS: COMPLETED The medical record has been reviewed with regard to this restricted drug request. Medication requested: TADALAFIL 10MG TAB Medication indication: ED Medical history relevant to this request: Pt with erectile dysfunction without adequate r esponse to formulary preferred sildenafil at max recommended doses. Trial alternative PDE5 inhibitor approved. Suggested dosing: -- 10mg at least 30 minutes prior to anticipate d sexual activity as one single dose and not more than once daily. -- Dose may be adjusted based on tolerability; Dosing range: 5-20mg The request is APPROVED FOR PRN USE - A documented therapeutic failure of the prefer red formulary alternative(s) exists /jamal/ Tammy Orozco, PharmD, [facility] Clinical Instrument Repairer Signed: 07/24/2021 11:03
--- OUTSIDE RECORDS SUMMARY | 2022-07-08 12:27 | XMS_ITS ---
:1950 Author Organization Department of [facility] rs Address [address] [place] [id number] Support Name Relationship Address Phone THANIA BERGER Rosmery Unavailable [address] [place] [address] CELINEAMELIA Unavailable [address] [place] [address] Insurance Providers: All historical and current Section [...] AARP INS PRESCRIPT MEDIC Sep 16, PDPIND [id number] [phone] YESSI BERGERZhane PATIENT ION ARE D 2017 [id number] IS MEDICAID MEDICAID [facility] Jul 17, MEDICAI [id number] YESSI BERGERZhane PATIENT EALTH 2014 D [id number] IS [place] MEDICARE MEDICARE PART Sep 16, PART A [id number] [id number] Rosmery BERGER PATIENT (WNR) (M) A 2010 00 IS MEDICARE MEDICARE PART Sep 16, PART B [id number] [phone] Rosmery BERGER PATIENT (WNR) (M) B 2010 00 IS MEDICARE MEDICARE PART Sep 16, PART A [id number] Rosmery BERGER PATIENT (WNR) (M) A 2010 [id number] 2 IS MEDICARE MEDICARE PART Sep 16, PART B [id number] Rosmery BERGER PATIENT (WNR) (M) B 2010 [id number] 2 IS Selected Encounter This section includes the information on record at [place] for the Encounter. Date/Time Encounter Type Encounter Description Reason Provider Source Sep 05, 2021 12:39 Outpatient Encounter PODIATRY PM IHE Encounter Template Text not used by [place] Plan of Treatment: Future Appointments (+ 6 months) and Future Tests (+/- 45 days) The Plan of Treatment section includes future care activities for the [facility] [place] [facility] This section includes future appointments and future orders which are active, pending orscheduled.Future Appointments This section includes appointments that were scheduled to occur 6 months from the date of the Encounter, up to a maximum of 20 appointments. The data comes from all [place] treatment facilities. Appointment Date/Time Appointment Type Appointment Facili ty Name Oct 18, 2021 10:15 AM [facility] Oct 25, 2021 12:00 PM [facility] [place] [facility] [place] [facility] Oct 26, 2021 10:00 AM [facility] [place] [facility] Nov 01, 2021 03:00 PM [facility] [place] [facility] Nov 10, 2021 10:00 AM [facility] Nov 13, 2021 09:00 AM [facility] Nov 16, 2021 02:30 PM [facility] Nov 16, 2021 03:00 PM [facility] Dec 21, 2021 03:30 PM [facility] Jan 05, 2022 03:30 PM [facility] [place] [facility] January 23, 2022 03:00 PM [facility] [place] [facility] Feb 14, 2022 08:00 AM [facility] [place] [facility] [place] [facility] Mar 06, 2022 03:00 PM [facility] Social History: Smoking Status (Most current) and Tobacco Use (All prior to encounter date) This section includes the most current, and the historical, smoking and tobacco-related health factors from the [place] facility where the Encounter took place.Current Smoking Status This section includes the most current smoking, or tobacco-related health factor, from the [place] facility where the Encounter took place. Date/Time Current Smoking Status Comment Facility May 11, 2021 01:18 PM VA-TOBACCO NEVER USED [facility] Encounter Notes: All associated encounter notes This section contains the clinical notes associated to the Encounter. Date/Time Encounter Note(s) Provider Source Sep 05, 2021 12:39 PM TELEPHONE ENCOUNTER NOTE: [facility] TITLE: TELEPHONE NOTE/SPECIALTY CLINIC STANDARD TITLE: TELEPHONE ENCOUNTER NOTE DATE OF NOTE: SEP 05, 2021@12:39 ENTRY DATE: SEP 05, 2021@12:39:22 AUTHOR: VEL SINGH EXP COSIGNER: URGENCY: STATUS: COMPLETED TELEPHONE NOTE/SPECIALTY CLINIC Has ADDENDA patient call reporting not receiving his shoe th at was order for him on 07/19/2021. kindly assist. 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 /jamal/ AMI SHIN HEALTH ASSISTANT BROKER Signed: 09/06/2021 08:14
--- OUTSIDE RECORDS SUMMARY | 2022-07-08 12:28 | XMS_ITS | Encounter Summary ---
:1950 Author Organization Department of [facility] rs Address [address] [place] [id number] Support Name Relationship Address Phone THANIA BERGER Unavailable [address] [place] [address] [place] [address] AMELIA BERGER Unavailable [address] [place] [address] Insurance Providers: All historical and current Section [...] AARP INS PRESCRIPT MEDIC Sep 16, PDPIND [id number] [phone] YESSI BERGERZhane PATIENT ION ARE D 2017 [id number] IS MEDICAID MEDICAID [id number] Jul 17, MEDICAI [id number] [phone] DAYAMI BERGER PATIENT EALTH 2014 D [id number] IS STAND CHRISTOPHER MEDICARE MEDICARE PART Sep 16, PART A [id number] [phone] Rosmery BERGER PATIENT (WNR) (M) A 2010 00 IS MEDICARE MEDICARE PART Sep 16, PART B [id number] [phone] Rosmery BERGER PATIENT (WNR) (M) B 2010A 00 IS MEDICARE MEDICARE PART Sep 16, PART B [id number] [id number] Rosmery BERGER PATIENT (WNR) (M) B 2010 [id number] 2 IS MEDICARE MEDICARE PART Sep 16, PART A [id number] Rosmery BERGER PATIENT (WNR) (M) A 2010 [id number] 2 IS Selected Encounter This section includes the information on record at ME for the Encounter. Date/Time Encounter Type Encounter Reason Provider Source Description Jul 19, 2021 OFFICE O/P EST PODIATRY ICD-10-CM L60.0 GOMEZ SANTORO 03:30 PM LOW 20-29 MIN Ingrowing nail with Provider Comments: Ingrowing Nail IHE Encounter Template Text not used by ME Assessments - Encounter Diagnoses This section includes the primary and secondary diagnoses documented for the Encounter. Date/Time Primary/Secondary Diagnosis Name Provider Source Diagnosis Jul 19, 2021 PRIMARY Ingrowing nail GOMEZ SANTORO 03:51 PM Jul 19, 2021 SECONDARY Pain in left GOMEZ SANTORO RIAZ 03:51 PM toe(s) Jul 19, 2021 SECONDARY Pain in right GOMEZ SANTORO RIAZ 03:51 PM toe(s) Jul 19, 2021 SECONDARY Type 2 diabetes w GOMEZ SANTORO ELD 03:51 PM diabetic peripheral angiopath w/o gangrene Plan of Treatment: Future Appointments (+ 6 months) and Future Tests (+/- 45 days) The Plan of Treatment section includes future care activities for the patient from all [place] treatmentfacilities. This section includes future appointments and future orders which are active, pending orscheduled.Future Appointments This section includes appointments that were scheduled to occur 6 months from the date of the Encounter, up to a maximum of 20 appointments. The data comes from all [place] treatment facilities. Appointment Date/Time Appointment Type Appointment Facili ty Name Jul 24, 2021 03:30 PM [facility] Oct 18, 2021 10:15 AM [facility] Oct 25, 2021 12:00 PM [facility] Oct 26, 2021 10:00 AM [facility] Nov 01[facility] 2021 03:00 PM [facility] [place] [facility] Nov 10, 2021 10:00 AM [facility] Nov 13, 2021 09:00 AM [facility] Nov 16, 2021 02:30 PM [facility] Nov 16, 2021 03:00 PM [facility] Dec 21, 2021 03:30 PM [facility] Jan 05, 2022 03:30 [facility] Lab Results: +/- 30 days of the encounter This section includes the Chemistry and Hematology Lab Results on record with [facility] for the patient. Radiology Reports and Pathology Reports are provided separately, in subsequent sections.Lab Results This section contains the Chemistry/Hematology Results that were resulted 30 days before or 30 daysafter the date of the Encounter. Date/Time Source Result Type Result - Unit Interpretation Reference Range Comment Jun 23, 2021 10:18 AM [facility] [place] PO4 Specimen Type: SERUM [facility] Comment: *BASIC METABOLIC PANEL (non-fasting) Not Performed: Jun 23, 2021@10: *CCIE Reason: dup order Ordering Provid er: MELANIA RAMOS Report Released Date/Time: Jun 12, 2021 01:44 PM Reporting Lab: [facility] [place] [facility] [address] [facility] [address] Performing Lab: [facility] [place] [facility] [address] [facility] [address] PO4 2.8 2.5-5.0 Jun 23, 2021 10:18 [facility] PTH INTACT Specimen Typ e: SERUM AM [place] [facility] Comment: *BASIC METABOLIC PANEL (non-fasting) Not Performed: Jun 23, 2021@10: *CCIE Reason: dup order Ordering Provid er: MELANIA RAMOS Report Released Date/Time: Jun 12, 2021 01:44 PM Reporting Lab: [facility] [place] [facility] [address] [facility] [address] Performing Lab: [facility] [place] [facility] [address] [facility] [address] PTH INTACT 93.4 H 10-65 Jun 23, 2021 10:18 [facility] URIC ACID Specimen Typ e: SERUM AM [place] [facility] Comment: *BASIC METABOLIC PANEL (non-fasting) Not Performed: Jun 23, 2021@10: *CCIE Reason: dup order Ordering Provid er: MELANIA RAMOS Report Released Date/Time: Jun 12, 2021 01:44 PM Reporting Lab: [facility] [place] [facility] [address] [facility] [address] Performing Lab: [facility] [place] [facility] [address] [facility] [address] URIC ACID 2.7 L 3.5-7.2 Jun 23, 2021 [facility] VITAMIN D (25-OH) Specimen Type : SERUM 10:18 AM [place] [facility] Comment: *BASIC METABOLIC PANEL (non-fasting) Not Performed: Jun 23, 2021@10: *CCIE Reason: dup order Ordering Provid er: MELANIA RAMOS Report Released Date/Time: Jun 12, 2021 01:44 PM Reporting Lab: [facility] [place] [facility] [address] [facility] [address] Performing Lab: [facility] [address] [facility] [address] VITAMIN D (25-OH) 37 20-50 Jun 23, 2021 [facility] HEMOGLOB[facility] A1C PANEL Specimen T ype: BLOOD 10:18 AM [facility] Comment: Testin g performed by NGSP [...] Provid er: DELMER STALLINGS Report Released Date/Time: Apr 07, 2021 01:00 PM Reporting Lab: [facility] [address] [facility] [address] Performing Lab: [facility] [address] [facility] [address] HEMOGLOBIN A1C 7.4 H 4.0-5.6 Jun 23, 2021 10:18 [facility] LIPID PANEL FASTING Specimen Type: SERUM [facility] Comment: POTASS IUM result verified Ordering Provid er: DELMER STALLINGS Report Released Date/Time: Apr 07, 2021 01:00 PM Reporting Lab: [facility] [address] [facility] [address] Performing Lab: [facility] [address] [facility] [address] CHOLESTEROL 141 0-199 TRIGLYCERIDE 83 0-150 LDL calculated 94 0-129 CHOL/HDL 4.7 HDL CHOLESTEROL 30 L 40-60 Jun 23, 2021 [facility] BASIC METABOLIC PANEL Specimen Type: SERUM 10:18 AM [facility] (fasting) Comment: XAVI IUM result verified Ordering Provid er: DELMER STALLINGS Report Released Date/Time: Apr 07, 2021 01:00 PM Reporting Lab: [facility] [address] [facility] [address] Performing Lab: [facility] [address] [facility] [address] UREA NITROGEN 15 7-25 GLUCOSE 185 H 65-100 SODIUM 140 135-145 POTASSIUM 3.0 L 3.5-5.0 CHLORIDE 102 100-110 CO2 28 20-30 CREATININE, Serum 1.26 0.50-1.40 eGFR (IDMS) 57 L >60 Social History: Smoking Status (Most [...] 03, 2019 10:28 AM VA-TOBACCO NEVER USED [facility] Tobacco Use History This section includes a history of the smoking, or tobacco- related health factors, that were collected on or before the date of the Encounter. The data comes from the [place] facility where the Encounter took place. Date/Time Smoking Status/Tobacco Use Comment Debbie thao Jan 13, 2018 09:49 AM LIFETIME NON-TOBACCO USER [facility] Jan 04, 2017 10:17 AM LIFETIME NON-TOBACCO USER [facility] Dec 23, 2015 08:49 AM LIFETIME NON-TOBACCO USER [facility] Nov 27, 2005 02:55 PM LIFETIME NON-TOBACCO USER [facility] patient reportssmoking only dafne pickett January 22, 2003 10:42 AM LIFETIME NON-SMOKER [facility] Aug 18, 2001 01:54 PM LIFETIME NON-TOBACCO USER [facility] pt states he has never smoked May 14, 2001 02:23 PM LIFETIME NON-SMOKER [facility] Encounter Notes: All associated encounter notes This section contains the clinical notes associated to the Encounter. Date/Time Encounter Note(s) Provider Source Oct 05, 2021 09:54 AM LETTERS: AMI SHIN LOCAL TITLE: PATIENT LETTER (B) STANDARD TITLE: LETTERS DATE OF NOTE: OCT 05, 2021@09:54 ENTRY DATE: OCT 05, 2021@09:54:18 AUTHOR: AMI SHIN EXP COSIGNER: URGENCY: STATUS: COMPLETED [facility]PARTMENT OF [facility] OCT 05, 2021 JESSICA BERGER [address] [place] [address], [address] Dear JESSICA BERGER, This is a reminder letter that your SHOES are ready for pick at the [facility] located at [address] [place] [address]. You may order picker/assembler your shoes and or orthotics at y our convenience any day, Saturday through Saturday between 8:30am and 3:30pm. You do not need an appointment. BUT WE DO REQUEST THAT YOU CALL BEFORE ARRIVING TO MAKE SURE THE PODIATRY HEALTH OPERATOR [place] LOCATING RADAR IS AVAILABLE ON THAT DAY. Call [phone] ext [phone] for Ami if you have any questions. We hope to see you soon, Podiatry Staff [facility] [address] [id number] Jul 19, 2021 03:29 PM PODIATRY NOTE: GOMEZ SANTORO LOCAL TITLE: PODIATRY NOTE STANDARD TITLE: PODIATRY NOTE DATE OF NOTE: JUL 19, 2021@15:29 ENTRY DATE: JUL 19, 2021@15:29:45 AUTHOR: GOMEZ SANTORO EXP COSIGNER: URGENCY: STATUS: COMPLETED Coronavirus Disease 2019 (COVID-19) Screen The patient reports no COVID-19 diagnosis. The patient reports not waiting for the results of a COVID-19 lab test. The patient reports no fever. The patient reports no new or worsening cough o r shortness of breath. The patient reports no cold or flu-like symptom s. The patient reports no new onset of diarrhea, n ausea or vomiting. The patient reports no new onset of headache, l oss of taste or loss of smell. The patient reports no exposure to someone with COVID-19 within the past 2 weeks. Result: Screen is negative. HAS RECEIVED BOTH COVID VACCINE DOSES AT [facility] *PERFORMED AT CHECK-IN AND REVIEWED BY DR. SANTORO PRIOR TO TREATMENT* LAST SEEN: 04/17/2021 S: Pt. is a 70 yo alert [facility] who is se en for continued evaluation & podiatric care for treatment of painful severely incurvated nails. There has been pain for several weeks which is daily with periods of exacerbation & remission, is of an aching nature and is exacerb ated with shoes & increased activity. Pain level is 2-3/10 prior to treatment & 0/10 after and is somewhat exacerbated due to delay in care due to the COVI D-19 situation. There is no history of trauma. There have been no recent lupis nges in the patient's medical condition or medications upon questioning today. *NOTE: Pt. is at risk of injury with self-care due to the presence of TYP E II DM. *DENIES ANY RECENT CHANGES IN MEDS-SEE RECONCILI ATION OERFORMED THIS DATE BELOW DENIES TOBACCO O: Exam reveals skin color to be WNL, temp is di minished warm to cool proximal to distal, text has areas of dryness pl jed aspect heels bilat. There is absence of hair noted. Nails are incurv ated with mild pain on palpation. Affected nails are as follows: HALLUX BILATERAL. There are MILD hyperkeratosis noted at the following locations: medial 1st MPJ bilateral. There are no other gross LE changes in status no deb this date. PMH: Active problems - Computerized Problem List is t he source for the followin. Cerebellar stroke syndrome 2. Chronic kidney disease 3. Osteoarthritis 4. Computed tomography result abnormal 5. Low back pain 6. Type II diabetes mellitus 7. Essential hypertension 8. Overweight 9. Allergy to peanuts 10. UTI 11. Claudication (SNOMED CT 726715490) 12. Elevated Prostate Specific antigen [psa] 13. Overweight 14. Low Back Pain * 15. 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 Impotence of organic origin 17. Colorectal Cancer Screening Results Document ed and Reviewed (PV) 18. Simple upper Gastrointestinal Endoscopy 19. Postsurgical Percutaneous Transluminal Coron chet Angioplasty Status 20. Postsurgical Status of Cataract Extraction 21. Diabetes mellitus (SNOMED CT 49850059) 22. MRSA SKIN INFECTION 23. Cocaine abuse, continuous use 24. GERD * 25. Corneal Abrasion 26. Hypertension (SNOMED CT 60981884) 27. Diabetic Neuropathies 28. Onychomycosis * 29. Cataract, PSC/Post Subcapsular 30. Cataract, Cortical (Senile) 31. Background diabetic retinopathy 32. Cyst, ganglion 33. Cervical Radiculopathy 34. Shoulder Pain 35. Hyperlipidemia (SNOMED CT 48905147) 36. Old Myocardial Infarction 37. Depressive Disorder NOS *NOTE: REVIEWED ABOVE NOTING NO CHANGES SINCE VISIT:. Cataract, PSC/Post *NOTE: A1c= 7.4 (LAST TAKEN: 06/2021) FS= 150AM RISK= 2 HEIGHT: 68 in [172.7 cm] (08/06/2019 09:26) WEIG HT: 234.5 lb [106.6 kg] (09/17/2019 07:55) VASCULAR: DP/PT pulses absent/non-palpable bilat eral. CFT > 3 sec x 10. There is no edema and there are no varices/superficial noted. NEUROLOGICAL & MUSCULOSKELETAL: Exams are review ed and noted to be unchanged since previous visit/non-contributory to the cc . A: Clinical Impression: Painful onychocryptic na ils as noted above in the presence of PVD/DM. Class findings have been met in a high risk individual and the systemic condition has resulted in circulato ry impairment & areas of desensitization. P: Treatment consists of tri mming/reduction of all nails via manual and electric means with excision of offending nail angel rders & surgical paring/debridement of all hyperkeratosis. Applied ammonium lactate 12% lotion to dry skin. All care rendered without complications & pt. progressing well after podiatric care this date & will be schedule d for periodic care in an attempt to prevent future complications due to the underlying medical cond itions. Tx. By a non- professional could be extremely hazardous to the patient's well-being due to the underlying medical condition. RTC 16 WEEKS *DISCUSSED NEW PROTOCOLS AND SEEN BY [facility] THIS DATE FOR RESCHEDULING TODAY I DISCUSSED THE FINDINGS & P GABBY WITH PATIENT (UNCHANGED SINCE PREVIOUS VISIT) & PATIENT AGREES AND UNDERSTANDS PLAN & NOT IN NEED OF MIRROR H E HAS HOME HEALTH AIDE AND FOOT ARE EXAMINED SEVERAL TIMES A WEEK. Medication Reconciliation: PERFORMED TODAY Outpatient: Has the patient been taking medications [...] whether with a VA or non-VA provider. The following VA and Non-VA medications were rec onciled with the patient: Active Outpatient Medications (including Supplie s): GLUCOSE [...] A DAY FOR USE WITH INSULIN PENS SILDENAFIL CITRATE 100MG TAB TAKE ONE TABLET BY MOUTH ONE ACTIVE TIME NEEDED TAKE 1 HOUR PRIOR TO SEXUAL AC TIVITY Non-VA ALCOHOL PREP PAD 1 PAD TOPICALLY [...] CAP,ORAL BY MOUTH ON FR IDAY ACTIVE Take care of your diabetes. Work with your health care team to keep your blo od sugar within a good range,check your feet every day. Look at your bare feet every day for cu ts; blisters, red spots, and swelling. Use a mirror to check the bottoms of your feet o r ask a family member for help if you have trouble-seeing. Wash your feet every day. Wash your feet in warm, not hot, water every da y Dry your feet well. Be sure to dry between the t oes. Keep the skin soft and smooth. Rub a thin coat of skin lotion over the tops an d bottoms of your feet, but not between your toes. Smooth, corns and calluses gently. Use a pumice stone to-smooth corns and calluses. Wear shoes and socks at all times. Never walk barefoot. .Wear comfortable shoes that fit well and protec t your feet. Feel inside your shoes befo re putting them on each time to make sure the lining is smooth and. there are no objects inside, Protect your feet from hot and cold. Wear shoes at the beach or on hot pavement. Wear socks at night if your feet get cold, Keep the blood flowing to your feet. Put your feet-up when sitting. Wiggle your toes and move your ankles up and down for 5 minutes, 2 or 3 times a day. Don't cross your legs for long periods of time, Don't smoke, Be more active. Plan your physical activity pro gram with your 1 doctor Check with your doctor. Have your doctor check your bare feet and find out whether you are likely to have serious foot problems, Remember that you may not feel the pain of an injury . Call your doctor right away if a cut, sore, bli ster; or bruise on your foot does not begin to heal after one day. Follow your doctor's advice about foot care. Get started now. Begin taking good care of your feet today Set a time every day to check your feet- Complete the 'To Do list on the back of t his page and ... /es/ GOMEZ SANTORO DPM COAL CHEMIST Signed: 07/19/2021 15:52
--- OUTSIDE RECORDS SUMMARY | 2022-07-08 12:28 | XMS_ITS | Encounter Summary ---
:1950 Author Organization Department of [facility] rs Address [address] [place] [address] Support Name Relationship Address Phone THANIA BERGER Unavailable [address] [place] [address] AMELIA BERGER Unavailable [address] [place] [address] Insurance Providers: All historical and current Section [...] AARP INS PRESCRIPT MEDIC Sep 16, PDPIND [id number] [phone] DAYAMI BERGER PATIENT ION ARE D 2017 251 9 IS MEDICAID MEDICAID [facility] Jul 17, MEDICAI [id number] [phone] DAYAMI BERGER PATIENT EALTH 2014 D [id number] IS [place] MEDICARE MEDICARE PART Sep 16, PART A [id number] [phone] Rosmery BERGER PATIENT (WNR) (M) A 2010 00 IS MEDICARE MEDICARE PART Sep 16, PART B [id number] [phone] Rosmery BERGER PATIENT (WNR) (M) B 2010A 00 IS MEDICARE MEDICARE PART Sep 16, PART A [id number] Rosmery BERGER PATIENT (WNR) (M) A 2010 [id number] 2 IS MEDICARE MEDICARE PART Sep 16, PART B [id number] Rosmery BERGER PATIENT (WNR) (M) B 2010 [id number] 2 IS Selected Encounter This section includes the information on record at [place] for the Encounter. Date/Time Encounter Type Encounter Description Reason Provider Source Jul 21, 2021 01:18 Outpatient Encounter ENDOCRINOLOGY PM IHE Encounter Template Text not used by [place] Plan of Treatment: Future Appointments (+ 6 months) and Future Tests (+/- 45 days) The Plan of Treatment section includes future care activities for the patient [facility] [place] [facility] This section includes future appointments and future orders which are active, pending orscheduled.Future Appointments This section includes appointments that were scheduled to occur 6 months from the date of the Encounter, up to a maximum of 20 appointments. The data comes from all [place] treatment facilities. Appointment Date/Time Appointment Type Appointment Facili ty Name Jul 24, 2021 03:30 PM [facility] Oct 18, 2021 10:15 AM [facility] Oct 25, 2021 12:00 PM [facility] Oct 26, 2021 10:00 AM [facility] Nov 01, 2021 03:00 PM [facility] Nov 10, 2021 10:00 AM [facility] Nov 13, 2021 09:00 AM [facility] Nov 16, 2021 02:30 PM [facility] Nov 16, 2021 03:00 PM [facility] Dec 21, 2021 03:30 PM [facility] Jan 05, 2022 03:30 PM [facility] Lab Results: +/- 30 days of the encounter This section includes the Chemistry and Hematology Lab Results on record with [place] for the patient. Radiology Reports and Pathology Reports are provided separately, in subsequent sections.Lab Results This section contains the Chemistry/Hematology Results that were resulted 30 days before or 30 daysafter the date of the Encounter. Date/Time Source Result Type Result - Unit Interpretation Reference Range Comment Jun 23, 2021 10:18 [facility] PTH INTACT Specimen Typ e: SERUM AM [facility] Comment: *BASIC METABOLIC PANEL (non-fasting) Not Performed: Jun 23, 2021@10: *PLASTIC EXTRUDING MACHINE OPERATOR Reason: dup order Ordering Provid er: MELANIA RAMOS Report Released Date/Time: Jun 12, 2021 01:44 PM Reporting Lab: [facility] [place] [facility] [address] [facility] [address] Performing Lab: [facility] [place] [facility] [address] [facility] [address] PTH INTACT 93.4 H 10-65 Jun 23, 2021 10:18 AM [facility] [place] PO4 Specimen Type: [facility] Comment: *BASIC METABOLIC PANEL (non-fasting) Not Performed: Jun 23, 2021@10: *PLASTIC EXTRUDING MACHINE OPERATOR Reason: dup order Ordering Provid er: MELANIA RAMOS Report Released Date/Time: Jun 12, 2021 01:44 PM Reporting Lab: [facility] [place] [facility] [address] [facility] [address] Performing Lab: [facility] [place] [facility] [address] [facility] [address] PO4 2.8 2.5-5.0 Jun 23, 2021 10:18 [facility] URIC ACID Specimen Typ e: SERUM AM [place] [facility] Comment: *BASIC METABOLIC PANEL (non-fasting) Not Performed: Jun 23, 2021@10: *PLASTIC EXTRUDING MACHINE OPERATOR Reason: dup order Ordering Provid er: MELANIA RAMOS Report Released Date/Time: Jun 12, 2021 01:44 PM Reporting Lab: [facility] [place] [facility] [address] [facility] [address] Performing Lab: [facility] [place] [facility] [address] [facility] [address] URIC ACID 2.7 L 3.5-7.2 Jun 23, 2021 [facility] VITAMIN D (25-OH) Specimen Type : SERUM 10:18 AM [place] [facility] Comment: *BASIC METABOLIC PANEL (non-fasting) Not Performed: Jun 23, 2021@10: *PLASTIC EXTRUDING MACHINE OPERATOR Reason: dup order Ordering Provid er: MELANIA RAMOS Report Released Date/Time: Jun 12, 2021 01:44 PM Reporting Lab: [facility] [place] [facility] [address] [facility] [address] Performing Lab: [facility] [place] [facility] [address] [facility] [address] VITAMIN D (25-OH) 37 20-50 Jun 23, 2021 [facility] PAN[facility] Specimen T ype: BLOOD 10:18 AM [facility] Comment: Testin g performed by NGSP [...] Apr 07, 2021 01:00 PM Reporting Lab: [address] [address] Performing Lab: [address] [address] HEMOGLOBIN A1C 7.4 H 4.0-5.6 Jun 23, 2021 [facility] BASIC METABOLIC PANEL Specimen Type: SERUM 10:18 AM [facility] (fasting) Comment: POTASS IUM result verified Ordering Provid er: DELMER STALLINGS Report Released Date/Time: Apr 07, 2021 01:00 PM Reporting Lab: [address] [address] Performing Lab: [address] [address] UREA NITROGEN 15 7-25 GLUCOSE 185 H 65-100 SODIUM 140 135-145 POTASSIUM 3.0 L 3.5-5.0 CHLORIDE 102 100-110 CO2 28 20-30 CREATININE, Serum 1.26 0.50-1.40 eGFR (IDMS) 57 L >60 Jun 23, 2021 10:18 [facility] LIPID PANEL FASTING Specimen Type: SERUM AM [facility] Comment: POTASS IUM result verified Ordering Provid er: DELMER STALLINGS Report Released Date/Time: Apr 07, 2021 01:00 PM Reporting Lab: [address] [address] Performing Lab: [place] [facility] [place] [facility] [address] [facility] [place] [address] CHOLESTEROL 141 0-199 TRIGLYCERIDE 83 0-150 LDL calculated 94 0-129 CHOL/HDL 4.7 HDL CHOLESTEROL 30 L 40-60 Social History: Smoking Status (Most current) and Tobacco Use (All prior to encounter date) This section includes the most current, and the historical, smoking and tobacco-related health factors from the [place] facility where the Encounter took place.Current Smoking Status This section includes the most current smoking, or tobacco-related health factor, from the [place] facility where the Encounter took place. Date/Time Current Smoking Status Comment Facility May 11, 2021 01:18 PM VA-TOBACCO NEVER USED [place] [facility] [place] [facility] Encounter Notes: All associated encounter notes This section contains the clinical notes associated to the Encounter. Date/Time Encounter Note(s) Provider Source Jul 21, 2021 01:18 PM TELEPHONE ENCOUNTER NOTE: TRAY POOLE [place] [facility] [place] LOCAL TITLE: TELEPHONE NOTE/SPECIALTY CLINIC [facility] STANDARD TITLE: TELEPHONE ENCOUNTER NOTE DATE OF NOTE: JUL 21, 2021@13:18 ENTRY DATE: JUL 21, 2021@13:18:11 AUTHOR: TRAY POOLE EXP COSIGNER: URGENCY: STATUS: COMPLETED Spoke to patient and confirmed Endocrine appoint ment on 07/24/2021 at 15:30. /jamal/ TRAY POOLE MACHINIST 2ND SHIFT Signed: 07/21/2021 13:18
--- OUTSIDE RECORDS SUMMARY | 2022-07-08 12:29 | XMS_ITS | Encounter Summary ---
:1950 Author Organization Department of [facility] rs Address [address] [place] [address] Support Name Relationship Address Phone THANIA BERGER Rosmery [place] [address] CELINEAMELIA Unavailable [address] [place] [address] Insurance Providers: All historical and current Section [...] AARP INS PRESCRIPT MEDIC Sep 16, PDPIND [id number] [phone] YESSI BERGERZhane PATIENT ION ARE D 2017 251 9 IS MEDICAID MEDICAID [facility] Jul 17, MEDICAI [id number] [phone] YESSI BERGERZhane PATIENT EALTH 2014 D [id number] [place] MEDICARE MEDICARE PART Sep 16, PART A [id number] [phone] Rosmery BERGER PATIENT (WNR) (M) A 2010 00 IS MEDICARE MEDICARE PART Sep 16, PART B [id number] [phone] Rosmery BERGER PATIENT (WNR) (M) B 2010 00 IS MEDICARE MEDICARE PART Sep 16, PART A [id number] Rosmery BERGER PATIENT (WNR) (M) A 2010 [id number] 2 IS MEDICARE MEDICARE PART Sep 16, PART B [id number] Rosmery BERGER PATIENT (WNR) (M) B 2010 XH29 2 IS Selected Encounter This section includes the information on record at [place] for the Encounter. Date/Time Encounter Type Encounter Description Reason Provider Source Jul 18, 2021 03:54 Outpatient Encounter PODIATRY PM IHE Encounter Template Text not used by [place] Plan of Treatment: Future Appointments (+ 6 months) and Future Tests (+/- 45 days) The Plan of Treatment section includes future care activities for the patient from [facility] [place] [facility]. This section includes future appointments and future orders which are active, pending orscheduled.Future Appointments This section includes appointments that were scheduled to occur 6 months from the date of the Encounter, up to a maximum of 20 appointments. The data comes from all [place] treatment facilities. Appointment Date/Time Appointment Type Appointment Facili ty Name Jul 19, 2021 03:30 PM [facility] Jul 24, 2021 03:30 PM [facility] [place] [facility] Oct 18[facility] 2021 10:15 AM [facility] Oct 25, 2021 12:00 PM [facility] [place] [facility] Oct 26, 2021 10:00 AM [facility] [place] [facility] Nov 01, 2021 03:00 PM [facility] [place] [facility] Nov 10, 2021 10:00 AM [facility] Nov 13, 2021 09:00 AM [facility] Nov 16, 2021 02:30 PM [facility] Nov 16, 2021 03:00 PM [facility] Dec 21, 2021 03:30 PM [facility] Jan 05, 2022 03:30 PM [facility] [place] [facility] Lab Results: +/- 30 days of the encounter This section includes the Chemistry and Hematology Lab Results on record with [place] for the patient. Radiology Reports and Pathology Reports are provided separately, in subsequent sections.Lab Results This section contains the Chemistry/Hematology Results that were resulted 30 days before or 30 daysafter the date of the Encounter. Date/Time Source Result Type Result - Unit Interpretation Reference Range Comment Jun 23, 2021 10:18 AM [facility] [place] PO4 Specimen Type: SERUM [facility] Comment: *BASIC METABOLIC PANEL (non-fasting) Not Performed: Jun 23, 2021@10: *ART DISPLAY MAKER Reason: dup order Ordering Provid er: MELANIA RAMOS Report Released Date/Time: Jun 12, 2021 01:44 PM Reporting Lab: [facility] [place] [facility] [address] [facility] [address] Performing Lab: [facility] [place] [facility] [address] [facility] [address] PO4 2.8 2.5-5.0 Jun 23, 2021 10:18 [facility] PTH INTACT Specimen Typ e: SERUM AM [place] [facility] Comment: *BASIC METABOLIC PANEL (non-fasting) Not Performed: Jun 23, 2021@10: *ART DISPLAY MAKER Reason: dup order Ordering Provid er: MELANIA RAMOS Report Released Date/Time: Jun 12, 2021 01:44 PM Reporting Lab: [facility] [place] [facility] [address] [facility] [address] Performing Lab: [place] [facility] [place] [facility] [address] [facility] [address] PTH INTACT 93.4 H 10-65 Jun 23, 2021 10:18 [facility] URIC ACID Specimen Typ e: SERUM AM [place] [facility] Comment: *BASIC METABOLIC PANEL (non-fasting) Not Performed: Jun 23, 2021@10: *ART DISPLAY MAKER Reason: dup order Ordering Provid er: MELANIA RAMOS Report Released Date/Time: Jun 12, 2021 01:44 PM Reporting Lab: [facility] [place] [facility] [address] [facility] [address] Performing Lab: [facility] [place] [facility] [address] [facility] [address] URIC ACID 2.7 L 3.5-7.2 Jun 23, 2021 [facility] VITAMIN D (25-OH) Specimen Type : SERUM 10:18 AM [place] [facility] Comment: *BASIC METABOLIC PANEL (non-fasting) Not Performed: Jun 23, 2021@10: *ART DISPLAY MAKER Reason: dup order Ordering Provid er: MELANIA RAMOS Report Released Date/Time: Jun 12, 2021 01:44 PM Reporting Lab: [facility] [place] [facility] [address] [facility] [address] Performing Lab: [facility] [place] [facility] [address] [facility] [address] VITAMIN D (25-OH) 37 20-50 Jun 23, 2021 [place] [facility] HEMOGLOBIN A1C PANEL Specimen T ype: BLOOD 10:18 AM [place] [facility] Comment: Testin g performed by NGSP certified [...] Apr 07, 2021 01:00 PM Reporting Lab: [facility] [address] [facility] [address] Performing Lab: [facility] [address] [facility] [address] HEMOGLOBIN A1C 7.4 H 4.0-5.6 Jun 23, 2021 10:18 [facility] Specimen Type: [facility]UM AM [facility] Comment: POTASS IUM result verified Ordering Provid er: DELMER STALLINGS Report Released Date/Time: Apr 07, 2021 01:00 PM Reporting Lab: [facility] [place] [facility] [address] [facility] [address] Performing Lab: [facility] [address] [facility] [address] CHOLESTEROL 141 0-199 TRIGLYCERIDE 83 0-150 LDL calculated 94 0-129 CHOL/HDL 4.7 HDL CHOLESTEROL 30 L 40-60 Jun 23, 2021 [facility] BASIC METABOLIC PANEL Specimen Type: SERUM 10:18 AM [place] [facility] (fasting) Comment: POTASS IUM result verified Ordering Provid er: DELMER STALLINGS Report Released Date/Time: Apr 07, 2021 01:00 PM Reporting Lab: [facility] [address] [facility] [address] Performing Lab: [facility] [address] [facility] [place] [address] UREA NITROGEN 15 7-25 GLUCOSE 185 H 65-100 SODIUM 140 135-145 POTASSIUM 3.0 L 3.5-5.0 CHLORIDE 102 100-110 CO2 28 20-30 CREATININE, Serum 1.26 0.50-1.40 eGFR (IDMS) 57 L >60 Social History: Smoking Status (Most current) and Tobacco Use (All prior to encounter date) This section includes the most current, and the historical, smoking and tobacco-related health factors from the [place] facility where the Encounter took place.Current Smoking Status This section includes the most current smoking, or tobacco-related health factor, from the [place] facility where the Encounter took place. Date/Time Current Smoking Status Comment Facility May 11, 2021 01:18 PM [facility]-TOBACCO NEVER USED [facility] Encounter Notes: All associated encounter notes This section contains the clinical notes associated to the Encounter. Date/Time Encounter Note(s) Provider Source Jul 18, 2021 03:55 PM TELEPHONE ENCOUNTER NOTE: [facility] TITLE: TELEPHONE NOTE/SPECIALTY CLINIC STANDARD TITLE: TELEPHONE ENCOUNTER NOTE DATE OF NOTE: JUL 18, 2021@15:55 ENTRY DATE: JUL 18, 2021@15:55:02 AUTHOR: ROOSEVELT OCONNELL EXP COSIGNER: URGENCY: STATUS: COMPLETED Called pt and LM to confirm PODIATRY appointment on 07/19/2021 at 3:30AM. /jamal/ ROOSEVELT TRUONG Signed: 07/18/2021 15:55
--- OUTSIDE RECORDS SUMMARY | 2022-07-08 12:31 | XMS_ITS | Encounter Summary ---
:1950 Author Organization [facility] of [facility] rs Address [address] [place] [id number] Support Name Relationship Address Phone CELINEGONZÁLEZTHANIA Rosmery Unavailable [address] [place] [address] [place] [address] CELINEAMELIA Unavailable [address] [place] [address] Insurance Providers: All historical and current Section [...] A[employer] INS PRESCRIPT MEDIC Sep 16, PDPIND [id number] [phone] YESSI BERGERZhane PATIENT ION ARE D 2017 [id number] IS MEDICAID MEDICAID [facility] Jul 17, MEDICAI [id number] [id number] DAYAMI BERGER PATIENT EALTH 2014 D [id number] IS STAND [place]RISTOPHER MEDICARE MEDICARE PART Sep 16, PART A [id number] [phone] Rosmery BERGER PATIENT (WNR) (M) A 2010 00 IS MEDICARE MEDICARE PART Sep 16, PART B [id number] [phone] Rosmery BERGER PATIENT (WNR) (M) B 2010 00 IS MEDICARE MEDICARE PART Sep 16, PART A [id number] Rosmery BERGER PATIENT (WNR) (M) A 2010 [id number] 2 IS MEDICARE MEDICARE PART Sep 16, PART B [id number] Rosmery BERGER PATIENT (WNR) (M) B 2010 [id number] 2 IS Selected Encounter This section includes the information on record at [place] for the Encounter. Date/Time Encounter Type Encounter Description Reason Provider Source Nov 13, 2021 09:21 Outpatient Encounter PRIMARY CARE/MEDICINE AM [facility] Encounter Template Text not used by [place] Plan of Treatment: Future Appointments (+ 6 months) and Future Tests (+/- 45 days) The Plan of Treatment section includes [facility] care activities [facility] the [facility] [place] [facility] This section includes future appointments and future orders which are active, pending orscheduled.Future Appointments This section includes appointments that were scheduled to occur 6 months from the date of the Encounter, up to a maximum of 20 appointments. The data comes from all [place] treatment facilities. Appointment Date/Time Appointment Type Appointment Facili ty Name Nov 16, 2021 02:30 PM [facility] Nov 16, 2021 03:00 PM [facility] Dec 21, 2021 03:30 PM [facility] Jan 05, 2022 03:30 PM [facility] January 23[facility] 2022 03:00 PM [facility] Feb 14, 2022 08:[address] [facility] Mar 06, 2022 03:00 PM [facility] Mar 09, 2022 12:00 PM [facility] Mar 23, 2022 01:30 PM [facility] Mar 26, 2022 04:00 PM [facility] Apr 02, 2022 04:00 PM [facility] Apr 17, 2022 03:15 PM [facility] Lab Results: +/- 30 days of the encounter This section includes the Chemistry and Hematology Lab Results on record with [place] for the patient. Radiology Reports and Pathology Reports are provided separately, in subsequent sections.Lab Results This section contains the Chemistry/Hematology Results that were resulted 30 days before or 30 daysafter the date of the Encounter. Date/Time Source Result Type Result - Unit Interpretation Reference Range Comment Nov 16, 2021 [facility] BASIC METABOLIC PANEL Specimen Type: SERUM 02:27 PM [facility] (non-fasting) No comment enter ed. Ordering Provid er: DELMER STALLINGS Report Released Date/Time: Oct 25, 2021 12:46 PM Reporting Lab: [address] [address] Performing Lab: [facility] [address] [facility] [address] UREA NITROGEN 27 H 7-25 GLUCOSE 349 H 65-100 SODIUM 135 135-145 POTASSIUM 4.4 3.5-5.0 CHLORIDE 100 100-110 CO2 26 20-30 CREATININE, Serum 1.89 H 0.50-1.40 eGFR (IDMS) 36 L >60 Oct 18, 2021 10:04 AM [place] PSA Specimen Type: SERUM Comment: *BASIC METABOLIC PANEL (fasting) Not Performed: Oct 18, 2021@10:05 b *LIME TRIMMER Reason: DUP ORDER Ordering Provid er: AMBIKA KNIGHT Report Released Date/Time: May 11, 2021 01:37 PM Reporting Lab: [facility] [address] [facility] [address] Performing Lab: [facility] [address] [facility] [address] PSA 1.68 0.00-4.00 Oct 18, 2021 10:04 AM [place] TSH Specimen Type: SERUM Comment: *BASIC METABOLIC PANEL (fasting) Not Performed: Oct 18, 2021@10:05 b *LIME TRIMMER Reason: DUP ORDER Ordering Provid er: AMBIKA KNIGHT Report Released Date/Time: May 11, 2021 01:37 PM Reporting Lab: [facility] [address] [facility] [address] Performing Lab: [facility] [address] [facility] [address] TSH 2.37 0.35-5.00 Oct 18, 2021 [facility] HEMOGLOBIN A1C PANEL Specimen T ype: BLOOD 10:04 AM [facility] Comment: Testin g performed by NGSP [...] Jul 24, 2021 04:34 PM Reporting Lab: [facility] [address] [facility] [address] Performing Lab: [facility] [address] [facility] [address] HEMOGLOBIN A1C 9.7 H 4.0-5.6 Oct 18, 2021 10:04 [facility] LIPID PANEL FASTING Specimen Type: SERUM AM [place] [facility] No comment enter ed. Ordering Provid er: DELMER STALLINGS Report Released Date/Time: Jul 24, 2021 04:34 PM Reporting Lab: [facility] [address] [facility] [address] Performing Lab: [facility] [address] [facility] [address] CHOLESTEROL 176 <7-199 TRIGLYCERIDE 179 H 0-150 LDL calculated 108 0-129 CHOL/HDL 5.5 HDL CHOLESTEROL 32 L 40-60 Oct 18, 2021 10:04 [facility] [place] ALBUMIN S pecimen Type: SERUM AM [facility] No comment enter ed. Ordering Provid er: MELANIA RAMOS Report Released Date/Time: Jun 28, 2021 09:09 AM Reporting Lab: [facility] [address] [facility] [address] Performing Lab[facility] [place] [facility] [address] [facility] [address] ALBUMIN 4.0 3.5-5.0 Oct 18, 2021 [facility] VITAMIN D (25-[place]) Specimen Type : SERUM 10:04 AM [place] [facility] No comment enter ed. Ordering Provid er: MELANIA RAMOS Report Released Date/Time: Jun 28, 2021 09:09 AM Reporting Lab: [facility] [address] [facility] [address] Performing Lab: [facility] [address] [facility] [address] VITAMIN D (25-[place]) 37 20-50 Oct 18, 2021 [facility] BASIC METABOLIC PANEL Specimen Type: SERUM 10:04 AM [place] [facility] (non-fasting) No comment enter ed. Ordering Provid er: MELANIA RAMOS Report Released Date/Time: Jun 28, 2021 09:09 AM Reporting Lab: [facility] [address] [facility] [address] [place]forming [place]: [facility] [place] [facility] [address] [facility] [address] UREA NITROGEN 21 7-25 GLUCOSE 302 H 65-100 SODIUM 136 135-145 POTASSIUM 4.7 3.5-5.0 CHLORIDE 103 100-110 CO2 24 20-30 CREATININE, Serum 1.74 H 0.50-1.40 eGFR (IDMS) 39 L >60 Oct 18, 2021 10:04 AM [facility] [place] CBC Specimen Type: BLOOD [facility] No comment enter ed. Ordering Provid er: MELANIA RAMOS Report Released Date/Time: Jun 28, 2021 09:09 AM Reporting Lab: [facility] [address] [facility] [address] Performing Lab: [facility] [place] [facility] [address] [facility] [address] WBC 7.69 4.50-11.00 RBC 5.16 4.23-5.66 HGB 12.9 12.8-17 HCT 40.7 39.2-50.4 MCV 78.9 L 82-99 MCHC 31.7 30.8-35.1 PLT 320 140-360 RDW-CV 17.8 H 12.0-16.0 MCH 25.0 L 26.2-32.6 Social History: Smoking Status (Most current) and Tobacco Use (All prior to encounter date) This section includes the most current, and the historical, smoking and tobacco-related health factors from the [place] facility where the Encounter took place.Current Smoking Status This section includes the most current smoking, or tobacco-related health factor, from the [place] facility where the Encounter took place. Date/Time Current Smoking Status Comment Facility May 11, 2021 01:18 PM VA-TOBACCO NEVER USED [place] [facility] [place] [facility] Encounter Notes: All associated encounter notes This section contains the clinical notes associated to the Encounter. Date/Time Encounter Note(s) Provider Source Nov 13, 2021 09:21 AM PREVENTIVE MEDICINE NURSING NOTE: JOEY RODRIGUEZ [facility] TITLE: CLINICAL REMINDERS/NURSING STANDARD TITLE: PREVENTIVE MEDICINE NURSING NOTE DATE OF NOTE: NOV 13, 2021@09:21 ENTRY DATE: NOV 13, 2021@09:21:06 AUTHOR: JOEY RODRIGUEZ EXP COSIGNER: URGENCY: STATUS: COMPLETED and girlfriend here for Blood pressure c heck up after CVA. Advance Directive Screen:+ Communication form g iven at visit. Patient does not have an advanced directive on file. Patient is interested in completing an advanced directive. A blank copy was given to the patient and he/she will return a completed copy. The patient received education about advance di rectives as well as written notification of his/her rights. Homelessness/Food Insecurity Screen: In the past 2 months, have you been living in s table housing that you own, rent, or stay in as part of a household? Y es - Living in stable housing. Are you worried or concerned that in the next 2 months you may NOT have stable housing that you own, rent, or stay in a s part of a household? No - Not worried about housing near future [facility] reports the following: Within the past 12 months, you worried whether your food would run out before you got money to buy more. Never true Within the past 12 months, the food you bought just didn't last and you didn't have money to get more. Never true Relationship Health & Safety Screen: Screening is not completed at this time due to: Another adult is present. Influenza Immunization: The patient has received the seasonal influenza vaccine for the current season at another location. Date: May, Exact date is unknown Location: Outside Healthcare Provider Td / Tdap Immunization: Patient educated on the need for receiving Tdap immunization either at [place] or outside facility. Comment: Discussed need to update. Discussed av ailable here at [place]. COVID-19 Immunization: Moderna COVID-19 Vaccine given previously Patient received a prior dose of the Moderna [place] VID-19 Vaccine. Date: July 11, 2021 Series: Series 3 Location: [facility] /es/ JOEY RODRIGUEZ LPN LICENSED PRACTICAL NURSE Signed: 11/13/2021 09:24
--- OUTSIDE RECORDS SUMMARY | 2022-07-08 12:31 | XMS_ITS | Encounter Summary ---
:1950 Author Organization Department of [facility] rs Address [address] [place] [id number] Support Name Relationship Address Phone THANIA BERGER Rosmery Unavailable [address] [place] [address] [place] [address] AMELIA BERGER Unavailable [address] [place] [address] Insurance Providers: All historical and current Section [...] AARP INS PRESCRIPT MEDIC Sep 16, PDPIND [id number] [phone] YESSI BERGERZhane PATIENT ION ARE D 2017 [id number] IS MEDICAID MEDICAID [facility] Jul 17, MEDICAI [id number] [id number] DAYAMI BERGER PATIENT EALTH 2014 D [id number] IS STAND CHRISTOPHER MEDICARE MEDICARE PART Sep 16, PART A [id number] [phone] Rosmery BERGER PATIENT (WNR) (M) A 2010 00 IS MEDICARE MEDICARE PART Sep 16, PART B [id number] [phone] Rosmery BERGER PATIENT (WNR) (M) B 2010 00 IS MEDICARE MEDICARE PART Sep 16, PART A [id number] Rosmery BERGER PATIENT (WNR) (M) A 2010 [id number] 2 IS MEDICARE MEDICARE PART Sep 16, PART B [id number] Rosmery BERGER PATIENT (WNR) (M) B 2010 [id number] 2 IS Selected Encounter This section includes the information on record at [place] for the Encounter. Date/Time Encounter Type Encounter Reason Provider Source Description Nov 13, 2021 OFFICE O/P EST PRIMARY ICD-10-CM I95.1 AMBIKA KNIGHT 09:00 AM MOD 30-39 MIN CARE/MEDICINE Orthostatic hypotension with Provider Comments: Orthostatic Hypotension IHE Encounter Template Text not used by [place] Assessments - Encounter Diagnoses This section includes the primary and secondary diagnoses documented for the Encounter. Date/Time Primary/Secondary Diagnosis Name Provider Source Diagnosis Nov 14, 2021 PRIMARY Orthostatic AMBIKA KNIGHT [facility] 07:59 AM hypotension Nov 14, 2021 SECONDARY Type 2 diabetes AMBIKA KNIGHT [facility] 07:59 AM mellitus with unspecified complications Plan of Treatment: Future Appointments (+ 6 months) and Future Tests (+/- 45 days) The Plan of Treatment section includes future care activities for the patient from all [place] treatmentfacilities. This section includes future appointments and future orders which are active, pending orscheduled.Future Appointments This section includes appointments that were scheduled to occur 6 months from the date of the Encounter, up to a maximum of 20 appointments. The data comes from all [place] treatment facilities. Appointment Date/Time Appointment Type Appointment Facili ty Name Nov 16, 2021 02:30 PM [facility] Nov 16, 2021 03:00 PM [facility] Dec 21, 2021 03:30 PM [facility] Jan 05, 2022 03:30 PM [facility] January 23, 2022 03:00 PM [facility] Feb 14, 2022 08:00 AM [facility] Mar 06, 2022 03:00 PM [facility] Mar 09, 2022 12:00 PM [facility] Mar 23, 2022 01:30 PM [facility] Mar 26, 2022 04:00 PM [facility] Apr 02, 2022 04:00 PM [facility] Apr 17, 2022 03:15 PM [facility] Lab Results: +/- 30 days of the encounter This section includes the Chemistry and Hematology Lab Results on record with [place] for the patient. Radiology Reports and Pathology Reports are provided separately, in subsequent sections.Lab Results This section contains the Chemistry/Hematology Results that were resulted 30 days before or 30 daysafter the date of the Encounter. Date/Time Source Result Type Result - Unit Interpretation Reference Range Comment Nov 16, 2021 [facility] BASIC METABOLIC PANEL Specimen Type: SERUM 02:27 PM [facility] (non-fasting) No comment enter ed. Ordering Provid er: DELMER STALLINGS Report Released Date/Time: Oct 25, 2021 12:46 PM Reporting Lab: [facility] [address] [facility] [address] Performing Lab: [facility] [address] [facility] [address] UREA NITROGEN 27 H 7-25 GLUCOSE 349 H 65-100 SODIUM 135 135-145 POTASSIUM 4.4 3.5-5.0 CHLORIDE 100 100-110 CO2 26 20-30 CREATININE, Serum 1.89 H 0.50-1.40 eGFR (IDMS) 36 L >60 Oct 18, 2021 10:04 AM [facility] PSA Specimen Type: SERUM Comment: *BASIC METABOLIC PANEL (fasting) Not Performed: Oct 18, 2021@10:05 b *VINYL TOP INSTALLER Reason: DUP ORDER Ordering Provid er: AMBIKA KNIGHT Report Released Date/Time: May 11, 2021 01:37 PM Reporting Lab: [facility] [address] [facility] [address] Performing Lab: [facility] [address] [facility] [address] PSA 1.68 0.00-4.00 Oct 18, 2021 10:04 AM [facility] TSH Specimen Type: SERUM Comment: *BASIC METABOLIC PANEL (fasting) Not Performed: Oct 18, 2021@10:05 b *VINYL TOP INSTALLER Reason: DUP ORDER Ordering Provid er: AMBIKA KNIGHT Report Released Date/Time: May 11, 2021 01:37 PM Reporting Lab: [facility] [address] [facility] [address] Performing Lab: [facility] [address] [facility] [address] TSH 2.37 0.35-5.00 Oct 18, 2021 10:04 [facility] LIPID PANEL FASTING Specimen Type: SERUM AM [place] [facility] No comment enter ed. Ordering Provid er: DELMER STALLINGS Report Released Date/Time: Jul 24, 2021 04:34 PM Reporting Lab[facility] [place] [facility] [address] [facility] [address] Performing Lab: [facility] [place] [facility] [address] [facility] [address] CHOLESTEROL 176 <7-199 TRIGLYCERIDE 179 H 0-150 LDL calculated 108 0-129 CHOL/HDL 5.5 HDL CHOLESTEROL 32 L 40-60 Oct 18, 2021 [facility] A1C PANEL Specimen T ype: BLOOD 10:04 AM [facility] Comment: Testin g performed by NGSP [...] Jul 24, 2021 04:34 PM Reporting Lab: [facility] [place] [facility] [address] [facility] [address] Performing [facility]: [facility] [place] [facility] [address] [facility] [address] HEMOGLOBIN A1C 9.7 H 4.0-5.6 Oct 18, 2021 10:04 [facility] pecimen Type: SERUM AM [facility] No comment enter ed. Ordering Provid er: MELANIA RAMOS Report Released Date/Time: Jun 28, 2021 09:09 AM Reporting Lab: [facility] [place] [facility] [address] [facility] [address] Performing Lab: [facility] [place] [facility] [address] [facility] [address] ALBUMIN 4.0 3.5-5.0 Oct 18, 2021 [facility] VITAMIN D (25-[place]) Specimen Type : SERUM 10:04 AM [facility] No comment enter ed. Ordering Provid er: MELANIA RAMOS Report Released Date/Time: Jun 28, 2021 09:09 AM Reporting Lab: [facility] [address] [facility] [address] Performing Lab: [facility] [address] [facility] [address] [address] VITAMIN D (25-[place]) 37 20-50 Oct 18, 2021 [facility] BASIC METABOLIC PANEL Specimen Type: SERUM 10:04 AM [facility] (non-fasting) No comment enter ed. Ordering Provid er: MELANIA RAMOS Report Released Date/Time: Jun 28, 2021 09:09 AM Reporting Lab: [facility] [address] [facility] [address] Performing Lab: [facility] [place] [facility] [address] [facility] [address] UREA NITROGEN 21 7-25 GLUCOSE 302 H 65-100 SODIUM 136 135-145 POTASSIUM 4.7 3.5-5.0 CHLORIDE 103 100-110 CO2 24 20-30 CREATININE, Serum 1.74 H 0.50-1.40 eGFR (IDMS) 39 L >60 Oct 18, 2021 10:04 AM [facility] [place] CBC Specimen Type: BLOOD [facility] No comment enter ed. Ordering Provid er: MELANIA RAMOS Report Released Date/Time: Jun 28, 2021 09:09 AM Reporting Lab: [facility] [address] [facility] [address] Performing Lab: [facility] [address] [facility] [address] WBC 7.69 4.50-11.00 RBC 5.16 4.23-5.66 HGB 12.9 12.8-17 HCT 40.7 39.2-50.4 MCV 78.9 L 82-99 MCHC 31.7 30.8-35.1 PLT 320 140-360 RDW-CV 17.8 H 12.0-16.0 MCH 25.0 L 26.2-32.6 Vital Signs: All taken on the encounter date This section contains inpatient and outpatient Vital Signs collected on the date of the Encounter. Date/Time Temperature Pulse Blood Respiratory SP02 Pain Height Weight Aleksander dy Source Pressure Rate Mass Index Nov 13, 112/67 2021 09:18 mm[Hg] I[place] AM Nov 13, 97.8 F 73 148/71 20 /min 98 % 228 lb 35 2021 09:18 /min mm[Hg] IELD AM Social History: Smoking Status (Most current) and Tobacco Use (All prior to encounter date) This section includes the most current, and the historical, smoking and tobacco-related health factors from the [place] facility where the Encounter took place.Current Smoking Status This section includes the most current smoking, or tobacco-related health factor, from the [place] facility where the Encounter took place. Date/Time Current Smoking Status Comment Facility February 03, 2019 10:28 AM DE-TOBACCO NEVER USED [facility] Tobacco Use History This section includes a history of the smoking, or tobacco- related health factors, that were collected on or before the date of the Encounter. The data comes from the [place] facility where the Encounter took place. Date/Time Smoking Status/Tobacco Use Comment [facility] Jan 13, 2018 09:49 AM LIFETIME NON-TOBACCO USER [facility] Jan 04, 2017 10:17 AM LIFETIME NON-TOBACCO USER [facility] Dec 23, 2015 08:49 AM LIFETIME NON-TOBACCO USER [facility] Nov 27, 2005 02:55 PM LIFETIME NON-TOBACCO USER [facility] patient reportssmoking only azucenaabimael zaira pickett January 22, 2003 10:42 AM LIFETIME NON-SMOKER [facility] Aug 18, 2001 01:54 PM LIFETIME NON-TOBACCO USER [facility] pt states he has never smoked May 14, 2001 02:23 PM LIFETIME NON-SMOKER [facility] Encounter Notes: All associated encounter notes This section contains the clinical notes associated to the Encounter. Date/Time Encounter Note(s) Provider Source Nov 13, 2021 09:13 AM PHYSICIAN NOTE: AMBIKA KNIGHT LOCAL TITLE: NOTE STANDARD TITLE: PHYSICIAN NOTE DATE OF NOTE: NOV 13, 2021@09:13 ENTRY DATE: NOV 13, 2021@09:14:02 AUTHOR: AMBIKA KNIGHT EXP COSIGNER: URGENCY: STATUS: COMPLETED Blood Pressure: 148/71 Pain: 0 (07/24/2021 15:54) Patient Height: 68 in [172.7 cm] (08/06/2019 09: 26) Patient Weight: 229.6 lb [104.4 kg] (07/24/2021 15:54) Pulse: 73 Respiration: 20 (05/11/2021 13:17) Temperature: 98.3 F [36.8 C] (05/11/2021 13:17) Arrives w/girlfriend who is very pleasant and he lpful CC: orthostatic hypotension History of Present Illness: 1. orthostatic hypotension -started about 2-3mths ago -he was hospitalized for low b/p about a month a go -cause for orthostasis not found -every time he stands the b/p drops -he's mildly symptomatic when this occurs -systolic b/p is usually 80-90 and diastolic 50' s -symptoms/lightheadeeness seems better as the da y progresses -he wears compression stockings -the midodrine doesn't seem to help much Medications were reviewed and reconciled. Active Outpatient Medications (including Supplie s): Active Outpatient Medications Status 1) ACCU-CHEK GUIDE [...] UNITS SUBCUTANEOUSLY ONCE DAILY FOR DIABETES 4) LANCET,SOFTCLIX USE 1 LANCET DIRECTED THRE E TIMES ACTIVE A DAY TO TEST BLOOD SUGAR 5) NEEDLE,PEN 32G,4MM USE 1 NEEDLE SUBCUTANEOUSL Y FOUR ACTIVE TIMES A DAY FOR USE WITH INSULIN PENS 6) TADALAFIL 10MG TAB TAKE ONE TABLET BY MOUTH O NCE ACTIVE DAILY NEEDED Active Non-VA Medications Status 2) Non-VA APIXABAN 5MG TAB 5MG BY MOUTH ONCE MEMO LY ACTIVE 3) Non-VA ASPIRIN 81MG EC TAB 81MG BY MOUTH LEONARDA Y ACTIVE 4) Non-VA ATORVASTATIN CALCIUM 80MG TAB 80MG BY MOUTH AT ACTIVE BEDTIME 7) Non-VA FEXOFENADINE HCL 60MG TAB 60MG BY MOUT H ONCE ACTIVE DAILY 8) Non-VA FINASTERIDE 5MG TAB 5MG BY MOUTH ONCE DAILY ACTIVE 9) Non-VA FUROSEMIDE 20MG TAB 20MG BY MOUTH TWO TIMES A ACTIVE WEEK 10) Non-VA MAGNESIUM OXIDE TAB 400MG BY MOUTH TW ICE DAILY ACTIVE 11) Non-VA METOPROLOL TARTRATE 25MG TAB 25MG BY MOUTH ACTIVE TWICE DAILY 12) Non-VA MIDODRINE HCL 10MG TAB 10MG BY MOUTH TWICE ACTIVE DAILY 13) Non-VA MIRABEGRON PA-F TAB,SA ? BY MOUTH ONCE ACTIVE DAILY 14) Non-VA PANTOPRAZOLE NA 40MG EC TAB 40MG BY M OUTH ACTIVE EVERY MORNING 30 MINUTES BEFORE BREAKFAST 15) Non-VA POTASSIUM CHLORIDE 10MEQ SA TAB 10MEQ BY MOUTH ACTIVE ONCE DAILY 16) Non-VA VALSARTAN 40MG TAB 40MG BY MOUTH ONCE DAILY ACTIVE 17) Non-VA VITAMIN B COMPLEX CAP,ORAL BY MOUTH O N SATURDAY ACTIVE doxazosin 2mg daily Social Hx: SERVICE CONNECTED % - NONE FOUND He stopped all substance abuse @04/2010.+ childre n. Allergies: GABAPENTIN, PEANUTS Physical Exam: pleasant. pt ambulates with jen tance-walker. Alert and oriented X3 Lungs: Clear to auscultation bilaterally. fair a ir movement. Cor: Regular rate and rhythm. No murmur, gallop or rub. Abd: Soft. Nontender. Normal active bowel sounds . No organomegaly. Ext: No cyanosis, clubbing or edema. Neuro: Grossly intact. All labs, diagnostic tests, and medicati on changes were reviewed and discussed with patient. The patient verbalized oscari ng. ASSESSMENT AND PLAN: 1. Diabetes: not optimally controlled w/a1c 11/05 22 of 9.7 -hgba1c in 06/2021 -continue f/u w/endocrine next appt 2. Hypotension: likely due to multifact orial causes: meds, diabetic autonomic dysfunction, etc. -stop doxazosin -check b/p several times a day -cardiology appt in one week 3. 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 renal insufficiency: clinically stable with f/u scheduled w/nephrology Return to clinic 04/2022 without labs no vaccination today PTSD Screening: PC-PTSD-5 A PTSD screening test (PC-PTSD-5) was negative (score=0). Have you ever had any experience that was so fr ightening, horrible or upsetting that, IN THE PAST MONTH, you: Have you ever experienced this kind of event? NO 1. Had nightmares about the event(s) or thought about the event(s) when you did not want to? Response not required due to responses to other questions. 2. Tried hard not to think about the event(s) o r went out of your way to avoid situations that reminded you of the ev ent(s)? Response not required due to responses to other questions. 3. Been constantly on guard, watchful, or easil y startled? Response not required due to responses to other questions. 4. [place] numb or detached from people, activitie s, or your surroundings? Response not required due to responses to other questions. 5. [place] guilty or unable to stop blaming yourse lf or others for the event(s) or any problems the event(s) may have caused? Response not required due to responses to other questions. Medication Reconciliation: Outpatient: Has the patient been taking medications as docu mented in the EM? No: Discrepencies were identified. See below. Essential [...] with a VA or non-VA provider. /jamal/ Ambika Knight M.D. STAFF PHYSICIAN Signed: 11/14/2021 07:59
--- OUTSIDE RECORDS SUMMARY | 2022-07-08 12:31 | XMS_ITS | Encounter Summary ---
:1950 Author Organization Department of [facility] rs Address [address] [place] [address] Support Name Relationship Address Phone THANIA BERGER Rosmeyr Unavailable [address] [place] [address] [place] [address] AMELIA BERGER Unavailable [address] [place] [address] Insurance Providers: All historical and current Section [...] AARP INS PRESCRIPT MEDIC Sep 16, PDPIND [id number] [phone] YESSI BERGERZhane PATIENT ION ARE D 2017 [id number] [facility] Jul 17, MEDICAI [id number] [phone] DAYAMI BERGER PATIENT EALTH 2014 D [id number] 900 IS STAND [place]RISTOPHER MEDICARE MEDICARE PART Sep 16, PART A [id number] [phone] Rosmery BERGER PATIENT (WNR) (M) A 2010 00 IS MEDICARE MEDICARE PART Sep 16, PART B [id number] [phone] Rosmery BERGER PATIENT (WNR) (M) B 2010A 00 IS MEDICARE MEDICARE PART Sep 16, PART B [id number] Rosmery BERGER PATIENT (WNR) (M) B 2010 [id number] 2 IS MEDICARE MEDICARE PART Sep 16, PART A [id number] Rosmery BERGER PATIENT (WNR) (M) A 2010 [id number] 2 IS Selected Encounter This section includes the information on record at [place] for the Encounter. Date/Time Encounter Type Encounter Reason Provider Source Description Nov 10, 2021 OFFICE O/P EST PODIATRY ICD-10-CM L60.0 GOMEZ SANTORO 10:00 AM LOW 20-29 MIN Ingrowing nail with Provider Comments: Ingrowing Nail IHE Encounter Template Text not used by [place] Assessments - Encounter Diagnoses This section includes the primary and secondary diagnoses documented for the Encounter. Date/Time Primary/Secondary Diagnosis Name Provider Source Diagnosis Nov 10, 2021 PRIMARY Ingrowing nail GOMEZ SANTORO [place] 11:00 AM Nov 10, 2021 SECONDARY Type 2 diabetes w GOMEZ S[facility]OROFORMERLY [facility] 11[facility]00 AM diabetic peripheral angiopath w/o gangrene Plan of Treatment: Future Appointments (+ 6 months) and Future Tests (+/- 45 days) The Plan of Treatment section includes future care activities for the patient from all [place] treatmentfacilities. This section includes future appointments and future orders which are active, pending orscheduled.Future Appointments This section includes appointments that were scheduled to occur 6 months from the date of the Encounter, up to a maximum of 20 appointments. The data comes from all [place] treatment facilities. Appointment Date/Time Appointment Type Appointment Facili ty Name Nov 13, 2021 09:00 AM [facility] Nov 16, 2021 02:30 PM [facility] Nov 16, 2021 03:00 PM [facility] Dec 21, 2021 03:30 PM [facility] Jan 05, 2022 03:30 PM [facility] January 23, 2022 03:00 PM [facility] Feb 14, 2022 08:00 AM [facility] Mar 06, 2022 03:00 PM [facility] Mar 09, 2022 12:00 PM [facility] Mar 23, 2022 01:30 PM [facility] Mar 26, 2022 04:00 PM [facility] Apr 02, 2022 04:00 PM [facility] Apr 17, 2022 03:15 PM [facility] Lab Results: +/- 30 days of the encounter This section includes the Chemistry and Hematology Lab Results on record with [place] for the patient. Radiology Reports and Pathology Reports are provided separately, in subsequent sections.Lab Results This section contains the Chemistry/Hematology Results that were resulted 30 days before or 30 daysafter the date of the Encounter. Date/Time Source Result Type Result - Unit Interpretation Reference Range Comment Nov 16, 2021 [place] [facility] BASIC METABOLIC PANEL Specimen Type: SERUM 02:27 PM [place] [facility] (non-fasting) No comment enter ed. Ordering Provid er: DELMER STALLINGS Report Released Date/Time: Oct 25, 2021 12:46 PM Reporting Lab[facility] [place] [facility] [address] [facility] [address] Performing Lab: [facility] [place] [facility] [address] [facility] [address] UREA NITROGEN 27 H 7-25 GLUCOSE 349 H 65-100 SODIUM 135 135-145 POTASSIUM 4.4 3.5-5.0 CHLORIDE 100 100-110 CO2 26 20-30 CREATININE, Serum 1.89 H 0.50-1.40 eGFR (IDMS) 36 L >60 Oct 18, 2021 10:04 AM [place] PSA Specimen Type: SERUM Comment: *BASIC METABOLIC PANEL (fasting) Not Performed: Oct 18, 2021@10:05 b *HEAD TRIMMER Reason: DUP ORDER Ordering Provid er: AMBKIA KNIGHT Report Released Date/Time: May 11, 2021 01:37 PM Reporting Lab: [facility] [place] [facility] [address] [facility] [address] Performing Lab: [facility] [place] [facility] [address] [facility] [address] PSA 1.68 0.00-4.00 Oct 18, 2021 10:04 AM [place] TSH Specimen Type: SERUM Comment: *BASIC METABOLIC PANEL (fasting) Not Performed: Oct 18, 2021@10:05 b *HEAD TRIMMER Reason: DUP ORDER Ordering Provid er: AMBIKA KNIGHT Report Released Date/Time: May 11, 2021 01:37 PM Reporting Lab: [facility] [place] [facility] [address] [facility] [address] Performing Lab: [facility] [place] [facility] [address] [facility] [address] TSH 2.37 0.35-5.00 Oct 18, 2021 10:04 [place] [facility] LIPID PANEL FASTING Specimen Type: SERUM AM [place] [facility] No comment enter ed. Ordering Provid er: DELMER STALLINGS Report Released Date/Time: Jul 24, 2021 04:34 PM Reporting Lab: [facility] WSTRN [place] [facility] [address] [facility] [address] Performing Lab: [facility] [address] [facility] [address] CHOLESTEROL 176 <7-199 TRIGLYCERIDE 179 H 0-150 LDL calculated 108 0-129 CHOL/HDL 5.5 HDL CHOLESTEROL 32 L 40-60 Oct 18, 2021 [place] [facility] HEMOGLOBIN A1C PANEL Specimen T ype: BLOOD 10:04 AM [facility] Comment: Testin g performed by [...] Jul 24, 2021 04:34 PM Reporting Lab: [facility] [address] [facility] [phone] Performing Lab: [facility] [address] [facility] [address] HEMOGLOBIN A1C 9.7 H 4.0-5.6 Oct 18, 2021 10:04 [facility] ALBUMIN S pecimen Type: SERUM AM [facility] No comment enter ed. Ordering Provid er: MELANIA RAMOS Report Released Date/Time: Jun 28, 2021 09:09 AM Reporting Lab: [facility] [place] [facility] [address] [facility] [address] Performing Lab: [facility] [address] [facility] [address] ALBUMIN 4.0 3.5-5.0 Oct 18, 2021 [place] [facility] VITAMIN D (25-[place]) Specimen Type : SERUM 10:04 AM [place] [facility] No comment enter ed. Ordering Provid er: MELANIA RAMOS Report Released Date/Time: Jun 28, 2021 09:09 AM Reporting Lab: [facility] [place] [facility] [address] [facility] [address] Performing Lab: [facility] [place] [facility] [address] [facility] [phone] VITAMIN D (25-[place]) 37 20-50 Oct 18, 2021 [place] [facility] BASIC METABOLIC PANEL Specimen Type: SERUM 10:04 AM [place] [facility] (non-fasting) No comment enter ed. Ordering Provid er: MELANIA RAMOS Report Released Date/Time: Jun 28, 2021 09:09 AM Reporting Lab: [facility] [place] [facility] [address] [facility] [address] Performing Lab: [facility] [place] [facility] [address] [facility] [address] UREA NITROGEN 21 7-25 GLUCOSE 302 H 65-100 SODIUM 136 135-145 POTASSIUM 4.7 3.5-5.0 CHLORIDE 103 100-110 CO2 24 20-30 CREATININE, Serum 1.74 H 0.50-1.40 eGFR (IDMS) 39 L >60 Oct 18, 2021 10:04 AM [place] [facility] [place] CBC Specimen Type: BLOOD HCS No comment enter ed. Ordering Provid er: MELANIA RAMOS Report Released Date/Time: Jun 28, 2021 09:09 AM Reporting Lab: [facility] [place] [facility] [address] [facility] [address] Performing Lab: [place] [facility] [place] [facility] [address] [facility] [address] WBC 7.69 4.50-11.00 RBC 5.16 4.23-5.66 HGB 12.9 12.8-17 HCT 40.7 39.2-50.4 MCV 78.9 L 82-99 MCHC 31.7 30.8-35.1 PLT 320 140-360 RDW-CV 17.8 H 12.0-16.0 MCH 25.0 L 26.2-32.6 Social History: Smoking Status (Most current) and Tobacco Use (All prior to encounter date) This section includes the most current, and the historical, smoking and tobacco-related health factors from the [facility] where the Encounter took place.Current Smoking Status This section includes the most current smoking, or tobacco-related health factor, from the [place] facility where the Encounter took place. Date/Time Current Smoking Status Comment Facility February 03, 2019 10:28 AM VA-TOBACCO NEVER USED [facility] Tobacco Use History This section includes a history of the smoking, or tobacco- related health factors, that were collected on or before the date of the Encounter. The data comes from the [facility] where the Encounter took place. Date/Time Smoking Status/Tobacco Use Comment [facility] Jan 13, 2018 09:49 AM LIFETIME NON-TOBACCO USER [place] Jan 04, 2017 10:17 AM LIFETIME NON-TOBACCO USER [place] Dec 23, 2015 08:49 AM LIFETIME NON-TOBACCO USER [place] Nov 27, 2005 02:55 PM LIFETIME NON-TOBACCO USER [place] patient reportssmoking only crac k coccaine January 22, 2003 10:[address] NON-SMOKER [facility] Aug 18, 2001 01:54 PM LIFETIME NON-TOBACCO USER [place] pt states he has never smoked May 14, 2001 02:23 [address]IME NON-SMOKER [facility] Encounter Notes: All associated encounter notes This section contains the clinical notes associated to the Encounter. Date/Time Encounter Note(s) Provider Source Nov 10, 2021 08:20 AM PODIATRY NOTE: GOMEZ SANTORO LOCAL TITLE: PODIATRY NOTE STANDARD TITLE: PODIATRY NOTE DATE OF NOTE: NOV 10, 2021@08:20 ENTRY DATE: NOV 10, 2021@08:20:41 AUTHOR: GOMEZ SANTORO EXP COSIGNER: URGENCY: STATUS: [...] HAS RECEIVED BOTH COVID VACCINE DOSES AT [facility] *PERFORMED AT CHECK-IN AND REVIEWED BY DR. SANTORO PRIOR TO TREATMENT* LAST SEEN: 07/19/2021 S: Pt. is a 71 yo alert [facility] MALE who is se en for [...] peanuts 10. UTI 11. Claudication (SNOMED CT 484854504) 12. Elevated Prostate Specific antigen [psa] 13. [...] Cataract Extraction 21. Diabetes mellitus (SNOMED CT 25041062) 22. MRSA SKIN INFECTION 23. Cocaine abuse, continuous use 24. GERD * 25. Corneal Abrasion 26. Hypertension (SNOMED CT 41559030) 27. Diabetic Neuropathies 28. Onychomycosis * 29. Cataract, PSC/Post Subcapsular 30. Cataract, Cortical (Senile) 31. Background diabetic retinopathy 32. Cyst, ganglion 33. Cervical Radiculopathy 34. Shoulder Pain 35. Hyperlipidemia (SNOMED CT 08688036) 36. Old Myocardial Infarction 37. Depressive Disorder NOS *NOTE: REVIEWED ABOVE NOTING NO CHANGES SINCE LA ST VISIT:. Cataract, PSC/Post *NOTE: A1c= 9.7 (LAST TAKEN: 10/2021) FS= 230AM RISK= 2 HEIGHT: 68 in [172.7 cm] [...] RTC 16 WEEKS *DISCUSSED NEW PROTOCOLS AND WILL BE CALLED TODA Y FOR RESCHEDULING I DISCUSSED THE FINDINGS & P GABBY WITH PATIENT (UNCHANGED SINCE PREVIOUS VISIT) & PATIENT AGREES AND UNDERSTANDS PLAN & NOT IN N EED OF MIRROR HE HAS HOME HEALTH AIDE AND FOOT ARE EXAMINED SEVERAL TIMES A WEEK. requires wheel chair for t ransportation and is with his son to do snow plowing today as well Medication Reconciliation: PERFORMED TODAY-SEE BELOW Outpatient: Has the patient been taking medications as docu mented in the EMLR? YES: The patient has been taking medications as documented in the EMLR. Essential Medication List for Review used to co mplete this medication reconciliation. INCLUDED IN THIS LIST: Alphabetical list of act joe outpatient prescriptions [facility] ([facility]) an d dispensed from another [place] or [facility] facility (remote) as well as inpatien t [...] patient: Active Outpatient Medications (including Supplie s): ACCU-CHEK GUIDE ME (GLUCOSE) METER USE METER TO TEST BLOOD ACTIVE SUGARS DIRECTED BY PROVIDER INSULIN,ASPART 100UN/ML KELLY FLEXPEN 3ML INJECT 8 UNITS ACTIVE SUBCUTANEOUSLY EVERY MORNING AND INJECT 9 UNITS ONCE DAILY AT LUNCH AND INJECT 9 UNITS EVERY EVENING BEFORE SUPPER INSULIN,GLARGINE 100 UNT/ML 3ML SOLOSTAR INJECT 55 UNITS ACTIVE SUBCUTANEOUSLY ONCE DAILY FOR DIABETES [...] B Y MOUTH ACTIVE TWICE DAILY Non-VA MAGNESIUM OXIDE TAB 400MG BY MOUTH TWICE DAILY ACTIVE Non-VA METFORMIN HCL 500MG TAB 500MG BY MOUTH ON CE DAILY ACTIVE Non-VA METOPROLOL TARTRATE 25MG TAB 25MG BY [...] page and ... /es/ GOMEZ SANTORO DPM ROLL PLUGGER Signed: 11/10/2021 11:01
--- OUTSIDE RECORDS SUMMARY | 2022-07-08 12:32 | XMS_ITS | Encounter Summary ---
:1950 Author Organization Department of [facility] rs Address [address] [place] [address] Support Name Relationship Address Phone CELINE THANIA Rosmery Unavailable [address] [place] [address] AMELIA BERGER Unavailable [address] [place] [address] Insurance Providers: All historical and current Section [...] AARP INS PRESCRIPT MEDIC Sep 16, PDPIND [id number] [phone] CELINE DAYAMI PATIENT ION ARE D 2017 [id number] IS MEDICAID MEDICAID [facility] Jul 17, MEDICAI [id number] [phone] YESSI BERGERZhane PATIENT EALTH 2014 D [id number] 900 IS [place]AND [place] MEDICARE MEDICARE PART Sep 16, PART A [id number] [phone] Rosmery BERGER PATIENT (WNR) (M) A 2010 00 IS MEDICARE MEDICARE PART Sep 16, PART B [id number] [phone] Rosmery BERGER PATIENT (WNR) (M) B 2010 00 IS MEDICARE MEDICARE PART Sep 16, PART B [id number] Rosmery BERGER PATIENT (WNR) (M) B 2010 [id number] 2 IS MEDICARE MEDICARE PART Sep 16, PART A [id number] Rosmery BERGER PATIENT (WNR) (M) A 2010 [id number] 2 IS Selected Encounter This section includes the information on record at [place] for the Encounter. Date/Time Encounter Type Encounter Description Reason Provider Source IHE Encounter Template Text not used by [place]
--- OUTSIDE RECORDS SUMMARY | 2022-07-08 12:32 | XMS_ITS | Encounter Summary ---
:1950 Author Organization Department of [facility] rs Address [address] [place] [address] Support Name Relationship Address Phone THANIA BERGER Rosmery [place] [address] AMELIA BERGER Unavailable [address] [place] [address] Insurance Providers: All historical and current Section Date Range: From patient's date of to the date document was created.This section includes the names of all active insurance providers for the patient. Insurance Type of Plan Start of End of Group Member Insurance Policy P atient's Provider Coverage Name Policy Policy Number ID Provider's Strcikland's Relationship Coverage Coverage Telephone Name to Policy Number Strickland AARP INS PRESCRIPT MEDIC Sep 16, PDPIND [id number] [phone] YESSI BERGERZhane PATIENT ION ARE D 2017 [id number] IS MEDICAID MEDICAID [facility] Jul 17, MEDICAI [id number] [phone] YESSI BERGERZhane PATIENT EALTH 2014 D [id number] IS STAND [place] MEDICARE MEDICARE PART Sep 16, PART A [id number] [phone] Rosmery BERGER PATIENT (WNR) (M) A 2010 00 IS MEDICARE MEDICARE PART Sep 16, PART B [id number] [phone] Rosmery BERGER PATIENT (WNR) (M) B 2010 00 IS MEDICARE MEDICARE PART Sep 16, PART A [id number] Rosmery BERGER PATIENT (WNR) (M) A 2010 [id number] 2 IS MEDICARE MEDICARE PART Sep 16, PART B [id number] Rosmery BERGER PATIENT (WNR) (M) B 2010 [id number] 2 IS Selected Encounter This section includes the information on record at [place] for the Encounter. Date/Time Encounter Type Encounter Reason Provider Source Description Nov 19, 2021 Outpatient TELEPHONE/MEDICI ICD-10-CM E11.8 DELMER STALLINGS 02:15 PM Encounter NE Type 2 diabetes mellitus with unspecified complications with Provider Comments: Type II diabetes mellitus ([facility] [id number]) IHE Encounter Template Text not used by [place] Assessments - Encounter Diagnoses This section includes the primary and secondary diagnoses documented for the Encounter. Date/Time Primary/Secondary Diagnosis Name Provider Source Diagnosis Nov 19, 2021 PRIMARY Type 2 diabetes [facility] WST RN 02:15 PM mellitus with [place] [facility] unspecified complications Nov 19, 2021 SECONDARY Chronic kidney [place] [facility] WSTR N 02:15 PM disease, [facility] [facility] unspecified Nov 19, 2021 SECONDARY Hyperlipidemia, [place] [facility] WST RN 02:15 PM unspecified [place] [facility] Plan of Treatment: Future Appointments (+ 6 months) and Future Tests (+/- 45 days) The Plan of Treatment section includes future care activities for the patient from all [place] treatmentfacilities. This section includes future appointments and future orders which are active, pending orscheduled.Future Appointments This section includes appointments that were scheduled to occur 6 months from the date of the Encounter, up to a maximum of 20 appointments. The data comes from all [place] treatment facilities. Appointment Date/Time Appointment Type Appointment Facili ty Name Dec 21, 2021 03:30 PM [facility] Jan 05, 2022 03:30 PM [facility] January 23, 2022 03:00 PM [facility] Feb 14, 2022 08:00 AM [facility] Mar 06, 2022 03:00 PM [facility] Mar 09, 2022 12:00 PM [facility] Mar 23, 2022 01:30 PM [facility] Mar 26, 2022 04:00 PM [facility] Apr 02, 2022 04:00 PM [facility] Apr 17, 2022 03:15 PM [facility] May 14, 2022 02:15 PM [facility] Active, Pending, and Scheduled Orders This section includes a listing of several types of active, pending, and scheduled orders, including clinic medications orders, diagnostic test orders, procedure orders and consult orders; where the start date of the order is 45 days before the date of the Encounter or 45 days after the date of the Encounter. The data comes from all [place] treatment facilities. Test Date/Time Test Type Test Details Facility Name Dec 30, 2021 12:00 AM Laboratory - Chemistry BASIC METABOLIC [facility] PANEL (non-fasting) [facility] BLOOD (SST-SERUM) SP Dec 30, 2021 12:00 AM Laboratory - Chemistry CBC BLOOD [facility] Order (LAV-BLOOD) [facility] Lab Results: +/- 30 days of the encounter This section includes the Chemistry and Hematology Lab Results on record with [place] for the patient. Radiology Reports and Pathology Reports are provided separately, in subsequent sections.Lab Results This section contains the Chemistry/Hematology Results that were resulted 30 days before or 30 daysafter the date of the Encounter. Date/Time Source Result Type Result - Unit Interpretation Reference Range Comment Nov 16, 2021 [facility] BASIC METABOLIC PANEL Specimen Type: SERUM 02:27 PM [facility] (non-fasting) No comment enter ed. Ordering Provid er: DELMER STALLINGS Report Released Date/Time: Oct 25, 2021 12:46 PM Reporting Lab: [facility] [address] [facility] [address] Performing Lab: [facility] [address] [facility] [address] UREA NITROGEN 27 H 7-25 GLUCOSE 349 H 65-100 SODIUM 135 135-145 POTASSIUM 4.4 3.5-5.0 CHLORIDE 100 100-110 CO2 26 20-30 CREATININE, Serum 1.89 H 0.50-1.40 eGFR (IDMS) 36 L >60 Social History: Smoking Status (Most current) and Tobacco Use (All prior to encounter date) This section includes the most current, and the historical, smoking and tobacco-related health factors from the [place] facility where the Encounter took place.Current Smoking Status This section includes the most current smoking, or tobacco-related health factor, from the [place] facility where the Encounter took place. Date/Time Current Smoking Status Comment Facility May 11, 2021 01:18 PM VA-TOBACCO NEVER USED [facility] Encounter Notes: All associated encounter notes This section contains the clinical notes associated to the Encounter. Date/Time Encounter Note(s) Provider Source Nov 19, 2021 02:15 PM PHYSICIAN NOTE: DELMER STALLINGS CNTRL W STRN LOCAL TITLE: MD BLOSS[facility] POWER [facility] STANDARD TITLE: PHYSICIAN NOTE DATE OF NOTE: NOV 19, 2021@14:15 ENTRY DATE: NOV 19, 2021@14:15:25 AUTHOR: DELMER STALLINGS EXP COSIGNER: URGENCY: STATUS: COMPLETED Dx: Renal insufficiency DM Hyperlipidemia Advised of recent labs. Taking novolog 1 1 units tid and lantus 55 units daily. Decrease atorvastatin to 40 mg daily. Reminded that he cannot take metformin due to his renal function. He expresses understanding and agreement. /jamal/ DELMER STALLINGS MD STAFF PHYSICIAN Signed: 11/19/2021 14:19
--- OUTSIDE RECORDS SUMMARY | 2022-07-08 12:32 | XMS_ITS ---
:1950 Author Organization Department of [facility] rs Address [address] [place] [id number] Support Name Relationship Address Phone CELINEGONZÁLEZTHANIA Rosmery Unavailable [address] [place] [address] [place] [address] CELINE AMELIA Unavailable [address] [place] [address] Insurance Providers: All historical and current Section [...] A[employer] INS PRESCRIPT MEDIC Sep 16, PDPIND [id number] [phone] YESSI BERGERZhane PATIENT ION ARE D 2017 251 [id number] IS MEDICAID MEDICAID [facility] Jul 17, MEDICAI [id number] [phone] DAYAMI BERGER PATIENT EALTH 2014 D [id number] IS [place] MEDICARE MEDICARE PART Sep 16, PART A [id number] [phone] Rosmery BERGER PATIENT (WNR) (M) A 2010 00 IS MEDICARE MEDICARE PART Sep 16, PART B [id number] [phone] Rosmery BERGER PATIENT (WNR) (M) B 2010 00 IS MEDICARE MEDICARE PART Sep 16, PART B [id number] Rosmery BERGER PATIENT (WNR) (M) B 2010 [id number] 2 IS MEDICARE MEDICARE PART Sep 16, PART A [id number] Rosmery BERGER PATIENT (WNR) (M) A 2010 [id number] 2 IS Selected Encounter This section includes the information on record at [place] for the Encounter. Date/Time Encounter Type Encounter Description Reason Provider Source Jul 11, 2021 12:00 Outpatient Encounter EVENT (HISTORICAL) AM I[facility] Encounter Template Text not used by [place] Plan of Treatment: Future Appointments (+ 6 months) and Future Tests (+/- 45 days) The Plan of Treatment section includes future care activities for the [facility] This section includes future appointments and future orders which are active, pending orscheduled.Future Appointments This section includes appointments that were scheduled to occur 6 months from the date of the Encounter, up to a maximum of 20 appointments. The data comes from all [place] treatment facilities. Appointment Date/Time Appointment Type Appointment Facili ty Name Jul 19, 2021 03:30 PM [facility] Jul 24, 2021 03:30 PM [facility] [place] [facility] Oct 18, 2021 10:15 AM [facility] Oct 25, 2021 12:00 [facility] [place] [facility] Oct 26, 2021 10:00 AM [facility] [place] [facility] Nov 01, 2021 03:00 PM [facility] [place] [facility] Nov 10, 2021 10:00 AM [facility] Nov 13, 2021 09:00 AM [facility] Nov 16, 2021 02:30 PM [facility] Nov 16, 2021 03:00 PM [facility] Dec 21, 2021 03:30 PM [facility] Jan 05, 2022 03:30 [facility] Lab Results: +/- 30 days of the encounter This section includes the Chemistry and Hematology Lab Results on record with [place] for the patient. Radiology Reports and Pathology Reports are provided separately, in subsequent sections.Lab Results This section contains the Chemistry/Hematology Results that were resulted 30 days before or 30 daysafter the date of the Encounter. Date/Time Source Result Type Result - Unit Interpretation Reference Range Comment Jun 23, 2021 10:18 [facility] PTH INTACT Specimen Typ e: SERUM AM [place] [facility] Comment: *BASIC METABOLIC PANEL (non-fasting) Not Performed: Jun 23, 2021@10: *HYPERCIL CORE TRANSFORMER ASSEMBLER Reason: dup order Ordering Provid er: MELANIA RAMOS Report Released Date/Time: Jun 12, 2021 01:44 PM Reporting Lab: [facility] [place] [facility] [address] [facility] [address] Performing Lab: [facility] [place] [facility] [address] [facility] [address] PTH INTACT 93.4 H 10-65 Jun 23, 2021 10:18 AM [facility] [place] PO4 Specimen Type: [facility] Comment: *BASIC METABOLIC PANEL (non-fasting) Not Performed: Jun 23, 2021@10: *HYPERCIL CORE TRANSFORMER ASSEMBLER Reason: dup order Ordering Provid er: MELANIA RAMOS Report Released Date/Time: Jun 12, 2021 01:44 PM Reporting Lab: [facility] [place] [facility] [address] [facility] [address] Performing Lab: [facility] [place] [facility] [address] [facility] [address] PO4 2.8 2.5-5.0 Jun 23, 2021 10:18 [facility] URIC ACID Specimen Typ e: [facility]UM [facility] [place] [facility] Comment: *BASIC METABOLIC PANEL (non-fasting) Not Performed: Jun 23, 2021@10: *HYPERCIL CORE TRANSFORMER ASSEMBLER Reason: dup order Ordering Provid er: MELANIA RAMOS Report Released Date/Time: Jun 12, 2021 01:44 PM Reporting Lab: [facility] [place] [facility] [address] [facility] [address] Performing Lab: [facility] [place] [facility] [address] [facility] [address] URIC ACID 2.7 L 3.5-7.2 Jun 23, 2021 [facility] VITAMIN D (25-[place]) Specimen Type : SERUM 10:18 AM [place] [facility] Comment: *BASIC METABOLIC PANEL (non-fasting) Not Performed: Jun 23, 2021@10: *HYPERCIL CORE TRANSFORMER ASSEMBLER Reason: dup order Ordering Provid er: MELANIA RAMOS Report Released Date/Time: Jun 12, 2021 01:44 PM Reporting Lab: [facility] [place] [facility] [address] [facility] [address] Performing Lab: [facility] [place] [facility] [address] [facility] [address] VITAMIN D (25-[place]) 37 20-50 Jun 23, 2021 [facility] HEMOGLOBIN A1C PANEL Specimen T ype: BLOOD 10:18 AM [place] [facility] Comment: Testin g performed by [...] Apr 07, 2021 01:00 PM [facility] [address] [facility] [address] [facility]forming [facility]: [facility] [address] [facility] [address] HEMOGLOBIN A1C 7.4 H 4.0-5.6 Jun 23, 2021 10:18 [facility] LIP[facility] FAST[facility] Specimen Type: [facility] Comment: POTASS IUM result verified Ordering Provid er: DELMER STALLINGS Report Released Date/Time: Apr 07, 2021 01:00 PM Reporting [facility] [place] [facility] [address] [facility] [address] Performing [facility] [address] [facility] [address] CHOLESTEROL 141 0-199 TRIGLYCERIDE 83 0-150 LDL calculated 94 0-129 CHOL/HDL 4.7 HDL CHOLESTEROL 30 L 40-60 Jun 23, 2021 [facility] BASIC METABOLIC PANEL Specimen Type: SERUM 10:18 AM [place] [facility] (fasting) Comment: POTASS IUM result verified Ordering Provid er: DELMER STALLINGS Report Released Date/Time: Apr 07, 2021 01:00 PM Reporting [facility] [address] [facility] [address] Performing Lab: [facility] [address] [place] [address] UREA NITROGEN 15 7-25 GLUCOSE 185 H 65-100 SODIUM 140 135-145 POTASSIUM 3.0 L 3.5-5.0 CHLORIDE 102 100-110 CO2 28 20-30 CREATININE, Serum 1.26 0.50-1.40 eGFR (IDMS) 57 L >60 Immunizations: All administered on the encounter date This section contains immunizations associated to the Encounter. Immunization Series Date Issued Reaction Comments COVID-19 (MODERNA), MRNA, LNP-S, PF, 100 MCG OR 3 Jun 50 MCG DOSE Social History: Smoking Status (Most current) and Tobacco Use (All prior to encounter date) This section includes the most current, and the historical, smoking and tobacco-related health factors from the [place] facility where the Encounter took place.Current Smoking Status This section includes the most current smoking, or tobacco-related health factor, from the [place] facility where the Encounter took place. Date/Time Current Smoking Status Comment Facility May 11, 2021 01:18 PM [facility]-TOBACCO NEVER USED [facility]
--- OUTSIDE RECORDS SUMMARY | 2022-07-08 12:33 | XMS_ITS | Encounter Summary ---
:1950 Author Organization Department of [facility] rs Address [address] [place] [address] Support Name Relationship Address Phone THANIA BERGER Rosmery Unavailable [address] [place] [address] [place] [address] AMELIA BERGER Unavailable [address] [place] [address] Insurance Providers: All historical and current Section [...] AARP INS PRESCRIPT MEDIC Sep 16, PDPIND [id number] [phone] YESSI BERGERZhane PATIENT ION ARE D 2017 [id number] IS MEDICAID MEDICAID [id number] Jul 17, MEDICAI [id number] [phone] DAYAMI BERGER PATIENT EALTH 2014 D [id number] IS 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 Date/Time Encounter Type Encounter Reason Provider Source Description Nov 16, 2021 DIAB MANAGE [facility]N DIAB[facility]ES CLINIC ICD-10-CM E11.65 Deborah ALEJANDRE 03:00 PM PER INDIV Type 2 diabetes mellitus with hyperglycemia with Provider Comments: Type 2 diabetes mellitus with hyperglycemia IHE Encounter Template Text not used by [place] Assessments - Encounter Diagnoses This section includes the primary and secondary diagnoses documented for the Encounter. 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 This section includes future appointments and future orders which are active, pending orscheduled.Future Appointments This section includes appointments that were scheduled to occur 6 months from the date of the Encounter, up to a maximum of 20 appointments. The data comes from all [facility]. Appointment Date/Time Appointment Type Appointment Facili ty Name Dec 21, 2021 03:30 PM [facility] Jan 05, 2022 03:30 PM [facility] January 23, 2022 03:00 PM [facility] Feb 14, 2022 08:00 AM [facility] Mar 06, 2022 03:00 PM [facility] Mar 09, 2022 12:00 PM [facility] Mar 23, 2022 01:30 PM [facility] Mar 26, 2022 04:00 PM [facility] Apr 02, 2022 04:00 PM [facility] Apr 17, 2022 03:15 PM [facility] May 14, 2022 02:15 PM [facility] Active, Pending, and Scheduled Orders This section includes a listing of several types of active, pending, and scheduled orders, including clinic medications orders, diagnostic test orders, procedure orders and consult orders; where the start date of the order is 45 days before the date of the Encounter or 45 days after the date of the Encounter. The data comes from all [facility]. Test Date/Time Test Type Test Details Facility Name Dec 30, 2021 12:00 AM Laboratory - Chemistry BASIC METABOLIC [facility] Order PANEL (non-fasting) [facility] BLOOD (SST-SERUM) SP Dec 30, 2021 12:00 AM Laboratory - Chemistry CBC BLOOD [facility] Order (LAV-BLOOD) SP [facility] Lab Results: +/- 30 days of the encounter This section includes the Chemistry and Hematology Lab Results on record with [place] for the patient. Radiology Reports and Pathology Reports are provided separately, in subsequent sections.Lab Results This section contains the Chemistry/Hematology Results that were resulted 30 days before or 30 daysafter the date of the Encounter. Date/Time Source Result Type Result - Unit Interpretation Reference Range Comment Nov 16, 2021 [facility] BASIC METABOLIC PANEL Specimen Type: SERUM 02:27 PM [facility] (non-fasting) No comment enter ed. Ordering Provid er: DELMER FIELDS Report Released Date/Time: Oct 25, 2021 12:46 PM Reporting Lab: [facility] [place] [address] [facility] [address] Performing Lab: [facility] [place] [address] [facility] [address] UREA NITROGEN 27 H 7-25 GLUCOSE 349 H 65-100 SODIUM 135 135-145 POTASSIUM 4.4 3.5-5.0 CHLORIDE 100 100-110 CO2 26 20-30 CREATININE, Serum 1.89 H 0.50-1.40 eGFR (IDMS) 36 L >60 Oct 18, 2021 10:04 AM [facility] Specimen Type: SERUM Comment: *BASIC METABOLIC PANEL (fasting) Not Performed: Oct 18, 2021@10:05 b *LINK AND LINK KNITTING MACHINE OPERATOR Reason: DUP ORDER Ordering Provid er: AMBIKA KNIGHT Report Released Date/Time: May 11, 2021 01:37 PM Reporting Lab: [facility] [place] [address] [facility] [address] Performing Lab: [facility] [place] [address] [facility] [address] TSH 2.37 0.35-5.00 Oct 18, 2021 10:04 AM [facility] PSA Specimen Type: SERUM Comment: *BASIC METABOLIC PANEL (fasting) Not Performed: Oct 18, 2021@10:05 b *LINK AND LINK KNITTING MACHINE OPERATOR Reason: DUP ORDER Ordering Provid er: AMBIKA KNIGHT Report Released Date/Time: May 11, 2021 01:37 PM Reporting Lab: [facility] [place] [facility] [address] [facility] [address] Performing [facility] [place] [facility] [address] [facility] [address] PSA 1.68 0.00-4.00 Oct 18, 2021 [facility] HEMOGLOBIN A1C PANEL Specimen T ype: BLOOD 10:04 AM [place] [facility] Comment: Testin g performed by NGSP certified Fields Enzymatic with CV <2%. The Fields HgA1C assay should not be used to diagnose or monitor diabetes in patients with altered red cell lifespan such a s homozygous hem oglobin variants, Hb SC, HbF>5% and hemolytic anemia. Heterozygous variants do not affect this assay, HbAS, HbAC, HbAD, HbAE, AbA2 Ordering Provid er: DELMER FIELDS Report Released Date/Time: Jul 24, 2021 04:34 PM Reporting Lab: [facility] [place] [facility] [address] [facility] [address] Performing Lab: [facility] [place] [facility] [address] [facility] [address] HEMOGLOBIN A1C 9.7 H 4.0-5.6 Oct 18, 2021 10:04 [facility] LIPID [facility] FASTING Specimen Type: SERUM AM [facility] No comment enter ed. Ordering Provid er: DELMER FIELDS Report Released Date/Time: Jul 24, 2021 04:34 PM Reporting Lab: [facility] [place] [facility] [address] [facility] [address] Performing Lab[facility] [address] [facility] [address] CHOLESTEROL 176 <7-199 TRIGLYCERIDE 179 H 0-150 LDL calculated 108 0-129 CHOL/HDL 5.5 HDL CHOLESTEROL 32 L 40-60 Oct 18, 2021 10:04 [facility] [place] ALBUMIN S pecimen Type: SERUM AM [facility] No comment enter ed. Ordering Provid er: MELANIA RAMOS Report Released Date/Time: Jun 28, 2021 09:09 AM Reporting Lab: [place] [facility] [place] [facility] [address] [facility] [address] Performing Lab: [facility] [place] [facility] [address] [facility] [address] ALBUMIN 4.0 3.5-5.0 Oct 18, 2021 [facility] VITAMIN D (25-OH) Specimen Type : SERUM 10:04 AM [place] [facility] No comment enter ed. Ordering Provid er: MELANIA RAMOS Report Released Date/Time: Jun 28, 2021 09:09 AM Reporting Lab: [place] [facility] [place] [facility] [address] [facility] [address] Performing Lab: [place] [facility] [place] [facility] [address] [facility] [address] VITAMIN D (25-OH) 37 20-50 Oct 18, 2021 [facility] BASIC METABOLIC PANEL Specimen Type: SERUM 10:04 AM [place] [facility] (non-fasting) No comment enter ed. Ordering Provid er: MELANIA RAMOS Report Released Date/Time: Jun 28, 2021 09:09 AM Reporting Lab: [place] [facility] [place] [facility] [address] [facility] [address] Performing Lab: [place] [facility] [place] [facility] [address] [facility] [address] UREA NITROGEN 21 7-25 GLUCOSE 302 H [...] [facility] [place] [facility] [address] [facility] [address] Performing Lab: [place] [facility] [place] [facility] [address] [facility] [place] [address] WBC 7.69 4.50-11.00 RBC 5.16 4.23-5.66 HGB 12.9 12.8-17 HCT 40.7 39.2-50.4 MCV 78.9 L 82-99 MCHC 31.7 30.8-35.1 PLT 320 140-360 RDW-CV 17.8 H 12.0-16.0 MCH 25.0 L 26.2-32.6 Social History: Smoking Status (Most current) and Tobacco Use (All prior to encounter date) This section includes the most current, and the historical, smoking and tobacco-related health factors from the [place] facility where the Encounter took place.Current Smoking Status This section includes the most current smoking, or tobacco-related health factor, from the [place] facility where the Encounter took place. Date/Time Current Smoking Status Comment Facility February 03, 2019 10:28 AM VA-TOBACCO NEVER USED [facility] Tobacco Use History This section includes a history of the smoking, or tobacco- related health factors, that were collected on or before the date of the Encounter. The data comes from the [place] facility where the Encounter took place. Date/Time Smoking Status/Tobacco Use Comment [facility] Jan 13, 2018 09:49 AM LIFETIME NON-TOBACCO USER [facility] Jan 04, 2017 10:17 AM LIFETIME NON-TOBACCO USER [facility] Dec 23, 2015 08:49 AM LIFETIME NON-TOBACCO USER [facility] Nov 27, 2005 02:55 PM LIFETIME NON-TOBACCO USER [facility] patient reportssmoking only dafne pickett January 22, 2003 10:42 AM LIFETIME NON-SMOKER [facility] Aug 18, 2001 01:54 PM LIFETIME NON-TOBACCO USER [facility] pt states he has never smoked May 14, 2001 02:23 PM LIFETIME NON-SMOKER [facility] Encounter Notes: All associated encounter notes This section contains the clinical notes associated to the Encounter. Date/Time Encounter Note(s) Provider Source Nov 16, 2021 03:00 PM DIABETOLOGY CONSULT: RADHA ALEJANDRE LOCAL TITLE: CONSULT REPORT/DIABETES EDU STANDARD TITLE: DIABETOLOGY CONSULT DATE OF NOTE: NOV 16, 2021@15:00 ENTRY DATE: NOV 22, 2021@09:42:33 AUTHOR: RADHA ALEJANDRE COSIGNER: URGENCY: STATUS: COMPLETED CONSULT REPORT/DIABETES EDU Has ADDENDA DIABETES EDUCATION DOCUMENTATION DIABETES SELF-MANAGEMENT PROGRAM Intake Assessment Demographics: Patient Name: JESSICA BERGER Age: 71 Sex: MALE Race: WHITE MARITAL STATUS - REASON FOR EDUCATION VISIT TODAY: initial education visit for Frederic with type 2 diabetes and is here today to discuss if he is a candidate to wear a glucose s ensor. He is seen in the company of his girlfriend who is a RN. MOST RECENT LABS: HEMOGLOBIN A1C TREND Collection DT Spec HGBA1c 10/18/2021 10:04 BLOOD 9.7 H 06/23/2021 10:18 BLOOD 7.4 H 08/08/2020 14:19 BLOOD 8.8 H 12/10/2019 10:08 BLOOD 7.9 H 09/14/2019 09:26 BLOOD 7.4 H CHEM 7 TREND Collection DT Spec GLUCOSE BUN CREATIN Sodium K+ /Pot CL CO2 11/16/2021 14:27 SERUM 349 H 27 H 1.89 H 135 4.4 100 26 10/18/2021 10:04 SERUM 302 H 21 1.74 H 136 4.7 1 03 24 06/23/2021 10:18 SERUM 185 H 15 1.26 140 3.0 L 1 02 28 02/16/2021 13:31 SERUM 103 H 20 1.31 139 4.3 106 21 08/08/2020 14:19 SERUM 120 H 21 1.29 137 4.7 104 24 LIPID PANEL TREND Collection DT Spec CHOL HDL CHO/HDL LDL-d LDL-c TRIG 10/18/2021 10:04 SERUM 176 32 L 5.5 108 179 H 06/23/2021 10:18 SERUM 141 30 L 4.7 94 83 08/08/2020 14:19 SERUM 125 35 L 3.6 77 63 12/10/2019 10:08 SERUM 136 27 L 5.0 72 185 H 01/30/2019 08:10 SERUM 148 28 L 5.3 83 185 H CREATININE-EGFR 11/16/21 14:27 1.89 H 10/18/21 10:04 1.74 H 06/23/21 10:18 1.26 EGFR - NONE FOUND WEIGHT: 228 lb [103.42 kg] (11/13/2021 09:18) HEIGHT: 68 in [172.7 cm] (08/06/2019 09:26) BMI: 34.7 Source of referral/primary care provider: Inpatient (X) Outpatient Name of Referring Provider: delmer fields MD Living arrangements: Alone Spouse Family (X) Friend girlfriend Support system Possible barriers to learning: Visual Auditory Literacy Language (X) None Diabetes health history: 59 Years old at diagnosis Type of diabetes: Type 1 (X) Type 2 PRE diabetes Allergies: No Allergy Assessment Substance use/abuse: Cigarettes Alcohol Marijuana Other (X) None DIABETIC-RELATED CHRONIC COMPLICATIONS EYES: Retinopathy Maculopathy Glaucoma (X) Cataracts (X) has had surgery Blindness Blurring No concerns Comments: KIDNEYS: Difficulty emptying bladder Urinary tract infection Proteinuria (X) Nephropathy No concerns Comments: FEET/LEGS/SKIN: Dry skin Previous/current ulcer Hard/thick toenails Palpable pulses Pain on walking Charcot joint Pain at rest Gangrene/amputation (X) Tingling/Numbness: Hands (X) Feet No concerns Sees dent remover for regular visits Comments: CARDIOVASCULAR/CEREBROVASCULAR: Pain/palpitations Angina pectoris (X) Myocardial infarction 2006 (X) Hypertension (X) Hyperlipidemia TIA (X) Stroke (CVA) No concerns Comments: OTHER MEDICAL CONCERNS: DIABETES MANAGEMENT Diet In the last 12 months, were there times when the food for you just did not last and there was no money to buy more? No Current Meal Plan: breakfast: ceja,eggs,toast, 8 ounces milk lunch: salad with chicken, water dinner: protein,starch,veggie, water or milk snacks: brownies, sweets Beverages consumed: water, milk Goal weight desired: lbs Exercise/activity: Type: (X)walking biking gym other: Frequency: daily Duration: as tolerated Level: Limitations: No mobility device used DIABETES MEDICATIONS: --novolog pre meals: B/L/D --lantus 55 units at bedtime History of hypoglycemia: denies any Monitoring: [facility] did not bring meter to this appointment. Diabetes related illnesses or hospitalizations i n the past year: ER visits Hospital admissions Ketoacidosis Hyperglycemia Hypoglycemia Comments: none Services utilized during the past year x Clinic visit/primary care provider Nutrition/dietitian x Podiatry x Eye exam x Lab tests Comments: Learning limitations/special education needs:non e Cultural influences: none Health beliefs/attitudes/feelings about diabetes : my sugars are all high Will significant other participate in program? g irlfriend Prior diabetes education: yes ASSESSMENT: Frederic reports his blood sugars have been runni ng high and he has been injecting additional novolog insulin. States janet moseley was over 500 yesterday after he ate brownies. Today he consumed chicken w/salad and inject novolog 9 units pre meals and his 3 hr post meal reading i n my office is 296 mg/dL. He clearly has poor insight regarding his d iabetes and I do concur that wearing a glucose sensor could be most beneficial. His gir meeta who is RN is also willing to help him with thi s. We discussed injecting his novolog pre meals and rotation of sites. We did have a brief discussio n regarding meal planning and how to set up a plate of food. He verbalized und erstanding to increase his novolog dose at this time. We also discu ssed the importance of consuming water with a goal of at least 60 ounces per day to ass ist with lowering his blood sugars. Education plan/goals/objectives: Healthy Eating Being Active Taking Medication Monitoring Reducing Risks TEACHING MATERIALS GIVEN: CARB COUNTING AND MEAL PLANNING DIABETES MEAL PLANNING:PLAN YOUR PLATE HANDOUT INSTRUCTIONS GIVEN TO : --increase novolog pre meals: B/L/D 11 TID --lantus 55 units at bedtime --increase water intake to at least 60 ounces pe r day --limit carbs on plate of food to 1/4 of plate o r less than 1 cup portion --opt for lean proteins and more non starchy veg gies --will request [facility] in [place] [facility] SELF-CARE AREAS DURING VISIT Individual engaged in activity related to the fo llowing areas during interaction: Food and drink Patient/Family Verbalized Understanding FUTURE APPOINTMENTS: 01/02/2022 13:30 CWM/NO/NEPHROLOGY/PROV 01/23/2022 15:00 NHM/ENDOCRINE TELE 03/06/2022 15:00 CWM/SO/PODIATRY/MAUDE DM type is : type 2 diabetes with hyperglycemia req insulin Length of Visit: 60 minutes /jamal/ RADHA ALEJANDRE PUBLICITY DIRECTOR CDE REGISTERED NURSE Signed: 11/23/2021 09:01 Receipt Acknowledged By: 11/23/2021 11:54 /jamal/ Ambika Knight M.D. STAFF PHYSICIAN 11/23/2021 ADDENDUM STATUS: COMPLETED Dr.fields, I do agree, Frederic is a candidate to wear a Shellie re 2 sensor. /jamal/ RADHA ALEJANDRE PUBLICITY DIRECTOR CDE REGISTERED NURSE Signed: 11/23/2021 09:01 Receipt Acknowledged By: 11/25/2021 04:50 /keshawn FIELDS MD STAFF PHYSICIAN 11/25/2021 ADDENDUM STATUS: COMPLETED Sensors and reader ordered. /keshawn FIELDS MD STAFF PHYSICIAN Signed: 11/25/2021 14:23 Receipt Acknowledged By: * AWAITING SIGNATURE * RADHA ALEJANDRE
--- OUTSIDE RECORDS SUMMARY | 2022-07-08 12:34 | XMS_ITS | Encounter Summary ---
:1950 Author Organization Department of [facility] rs Address [address] [place] [address] Support Name Relationship Address Phone THANIA BERGER Unavailable [address] [place] [address] AMELIA BERGER Unavailable [address] [place] [address] Insurance Providers: All historical and current Section [...] AARP INS PRESCRIPT MEDIC Sep 16, PDPIND [id number] [phone] YESSI BERGERZhane PATIENT ION ARE D 2017 [id number] 9 IS MEDICAID MEDICAID [facility] Jul 17, MEDICAI [id number] [phone] DAYAMI BERGER PATIENT EALTH 2014 D [id number] IS STAND CHRISTOPHER MEDICARE MEDICARE PART Sep 16, PART A [id number] [phone] Rosmery BERGER PATIENT (WNR) (M) A 2010 00 IS MEDICARE MEDICARE PART Sep 16, PART B [id number] [phone] Rosmery BERGER PATIENT (WNR) (M) B 2010A 00 IS MEDICARE MEDICARE PART Sep 16, PART A [id number] Rosmery BERGER PATIENT (WNR) (M) A 2010 XH29 2 IS MEDICARE MEDICARE PART Sep 16, PART B [id number] Rosmery BERGER PATIENT (WNR) (M) B 2010 XH29 2 IS Selected Encounter This section includes the information on record at [place] for the Encounter. Date/Time Encounter Type Encounter Description Reason Provider Source Dec 01, 2021 02:32 Outpatient Encounter ENDOCRINOLOGY PM IHE Encounter Template Text not used by [place] Plan of Treatment: Future Appointments (+ 6 months) and Future Tests (+/- 45 days) The Plan of Treatment section includes future care activities for the patient from all [place] [facility] This section includes future appointments and future orders which are active, pending orscheduled.Future Appointments This section includes appointments that were scheduled to occur 6 months from the date of the Encounter, up to a maximum of 20 appointments. The data comes from all [facility]. Appointment Date/Time Appointment Type Appointment Facili ty Name Dec 21, 2021 03:30 PM [facility] Jan 05, 2022 03:30 PM [facility] January 23, 2022 03:00 PM [facility] Feb 14, 2022 08:00 AM [facility] Mar 06, 2022 03:00 PM [facility] Mar 09, 2022 12:00 PM [facility] Mar 23, 2022 01:30 PM [facility] Mar 26, 2022 04:00 PM [facility] Apr 02, 2022 04:00 PM [facility] Apr 17, 2022 03:15 PM [facility] May 14, 2022 02:15 PM [facility] Active, Pending, and Scheduled Orders This section includes a listing of several types of active, pending, and scheduled orders, including clinic medications orders, diagnostic test orders, procedure orders and consult orders; where the start date of the order is 45 days before the date of the Encounter or 45 days after the date of the Encounter. The data comes from all [facility]. Test Date/Time Test Type Test Details Facility Name Dec 30, 2021 12:00 AM Laboratory - Chemistry CBC BLOOD [facility] Order (LAV-BLOOD) SP [facility] Dec 30, 2021 12:00 AM Laboratory - Chemistry BASIC METABOLIC [facility] Order PANEL (non-fasting) [facility] BLOOD (SST-SERUM) SP Lab Results: +/- 30 days of the encounter This section includes the Chemistry and Hematology Lab Results on record with [place] for the patient. Radiology Reports and Pathology Reports are provided separately, in subsequent sections.Lab Results This section contains the Chemistry/Hematology Results that were resulted 30 days before or 30 daysafter the date of the Encounter. Date/Time Source Result Type Result - Unit Interpretation Reference Range Comment [facility] Specimen Type: SERUM 02:27 PM [facility] (non-fasting) No comment enter ed. Ordering Provid er: DELMER STALLINGS Report Released Date/Time: Oct 25, 2021 12:46 PM Reporting Lab: [facility] [address] [facility] [address] Performing Lab: [facility] [address] [facility] [address] UREA NITROGEN 27 H 7-25 GLUCOSE 349 H 65-100 SODIUM 135 135-145 POTASSIUM 4.4 3.5-5.0 CHLORIDE 100 100-110 CO2 26 20-30 CREATININE, Serum 1.89 H 0.50-1.40 eGFR (IDMS) 36 L >60 Social History: Smoking Status (Most current) and Tobacco Use (All prior to encounter date) This section includes the most current, and the historical, smoking and tobacco-related health factors from the [place] facility where the Encounter took place.Current Smoking Status This section includes the most current smoking, or tobacco-related health factor, from the [place] facility where the Encounter took place. Date/Time Current Smoking Status Comment Facility May 11, 2021 01:18 PM VA-TOBACCO NEVER USED [facility] Encounter Notes: All associated encounter notes This section contains the clinical notes associated to the Encounter. Date/Time Encounter Note(s) Provider Source Dec 01, 2021 02:32 PM TELEPHONE ENCOUNTER NOTE: SOFIA PRESTON [facility] LOCAL TITLE: TELEPHONE NOTE/SPECIALTY CLINIC [facility] STANDARD TITLE: TELEPHONE ENCOUNTER NOTE DATE OF NOTE: DEC 01, 2021@14:32 ENTRY DATE: DEC 01, 2021@14:32:20 AUTHOR: SOFIA PRESTON EXP COSIGNER: URGENCY: STATUS: COMPLETED vet called in requsting a call back from [facility], did not detail what about, they requested a call back on [phone] /es/ SOFIA PRESTON Signed: 12/01/2021 14:33 Receipt Acknowledged By: * AWAITING SIGNATURE * DELMER STALLINGS
--- OUTSIDE RECORDS SUMMARY | 2022-07-08 12:34 | XMS_ITS | Encounter Summary ---
:1950 Author Organization Department of [facility] rs Address [address] [place] [id number] Support Name Relationship Address Phone THANIA BERGER Rosmery Unavailable [address] [place] [address] [place] [address] AMELIA BERGER Unavailable [address] [place] [address] Insurance Providers: All historical and current Section [...] AARP INS PRESCRIPT MEDIC Sep 16, PDPIND [id number] [phone] CELINE DAYAMI PATIENT ION ARE D 2017 [id number] IS MEDICAID MEDICAID [facility] Jul 17, MEDICAI [id number] [phone] CELINE DAYAMI PATIENT EALTH 2014 D [id number] IS [place] MEDICARE MEDICARE PART Sep 16, PART A [id number] [phone] Rosmery BERGER PATIENT (WNR) (M) A 2010A 00 IS MEDICARE MEDICARE PART Sep 16, PART B [id number] [phone] Rosmery BERGER PATIENT (WNR) (M) B 2010A 00 IS MEDICARE MEDICARE PART Sep 16, PART B [id number] Rosmery BERGER PATIENT (WNR) (M) B 2010 XH29 2 IS MEDICARE MEDICARE PART Sep 16, PART A [id number] Rosmery BERGER PATIENT (WNR) (M) A 2010 [id number] 2 IS Selected Encounter This section includes the information on record at [place] for the Encounter. Date/Time Encounter Type Encounter Reason Provider Source Description Dec 01, 2021 PRO PHONE TELEPHONE PRIMARY ICD-10-CM E11.65 TYRESE ALEJANDRE 03:24 PM CALL 5-10 MIN CARE Type 2 diabetes mellitus with hyperglycemia with Provider Comments: Type 2 diabetes mellitus with hyperglycemia IHE Encounter Template Text not used by [place] Assessments - Encounter Diagnoses This section includes the primary and secondary diagnoses documented for the Encounter. Date/Time Primary/Secondary Diagnosis Name Provider Source Diagnosis Dec 01, 2021 PRIMARY Type 2 diabetes RADHA ALEJANDRE [facility] 03:24 PM mellitus with hyperglycemia Dec 01, 2021 [facility] RADHA ALEJANDRE [facility] IELD 03:24 PM use of insulin Plan of Treatment: Future Appointments (+ 6 months) and Future Tests (+/- 45 days) The Plan of Treatment section includes future care activities for the patient from all [place] [facility]. This section includes future appointments and future orders which are active, pending orscheduled.Future Appointments This section includes appointments that were scheduled to occur 6 months from the date of the Encounter, up to a maximum of 20 appointments. The data comes from all [place] treatment [facility]. Appointment Date/Time Appointment Type Appointment Facili ty Name Dec 21, 2021 03:30 PM [facility] Jan 05, 2022 03:30 PM [facility] January 23, 2022 03:00 PM [facility] Feb 14[facility] 2022 08:00 AM [facility] Mar 06, 2022 03:00 PM [facility] Mar 09, 2022 12:00 PM [facility] Mar 23, 2022 01:30 PM [facility] Mar 26, 2022 04:00 PM [facility] Apr 02, 2022 04:00 PM [facility] Apr 17, 2022 03:15 PM [facility] May 14, 2022 02:15 PM [facility] Active, Pending, and Scheduled Orders This section includes a listing of several types of active, pending, and scheduled orders, including clinic medications orders, diagnostic test orders, procedure orders and consult orders; where the start date of the order is 45 days before the date of the Encounter or 45 days after the date of the Encounter. The data comes from all [facility] treatment facilities. Test Date/Time Test Type Test Details Facility Name Dec 30, 2021 12:00 AM Laboratory - Chemistry BASIC METABOLIC [facility] Order PANEL (non-fasting) [facility] BLOOD (SST-SERUM) SP Dec 30, 2021 12:00 AM Laboratory - Chemistry CBC BLOOD [facility] Order (LAV-BLOOD) SP [facility] Lab Results: +/- 30 days of the encounter This section includes the Chemistry and Hematology Lab Results on record with [place] for the patient. Radiology Reports and Pathology Reports are provided separately, in subsequent sections.Lab Results This section contains the Chemistry/Hematology Results that were resulted 30 days before or 30 daysafter the date of the Encounter. Date/Time Source Result Type Result - Unit Interpretation Reference Range Comment Nov 16, 2021 [facility] BASIC METABOLIC PANEL Specimen Type: SERUM 02:27 PM [facility] (non-fasting) No comment enter ed. Ordering Provid er: DELMER STALLINGS Report Released Date/Time: Oct 25, 2021 12:46 PM Reporting Lab: [facility] [address] [id number] Performing Lab: [facility] [address] [facility] [id number] UREA NITROGEN 27 H 7-25 GLUCOSE 349 H 65-100 SODIUM 135 135-145 POTASSIUM 4.4 3.5-5.0 CHLORIDE 100 100-110 CO2 26 20-30 CREATININE, Serum 1.89 H 0.50-1.40 eGFR (IDMS) 36 L >60 Social History: Smoking Status (Most current) and Tobacco Use (All prior to encounter date) This section includes the most current, and the historical, smoking and tobacco-related health factors from the [place] facility where the Encounter took place.Current Smoking Status This section includes the most current smoking, or tobacco-related health factor, from the [place] facility where the Encounter took place. Date/Time Current Smoking Status Comment Facility February 03, 2019 10:28 AM [place]-TOBACCO NEVER USED [facility] Tobacco Use History This section includes a history of the smoking, or tobacco- related health factors, that were collected on or before the date of the Encounter. The data comes from the [place] facility where the Encounter took place. Date/Time Smoking Status/Tobacco Use Comment [facility] Jan 13, 2018 09:49 AM LIFETIME NON-TOBACCO USER [facility] Jan 04, 2017 10:17 AM LIFETIME NON-TOBACCO USER [facility] Dec 23, 2015 08:49 AM LIFETIME NON-TOBACCO USER [facility] Nov 27, 2005 02:55 PM LIFETIME NON-TOBACCO USER [facility] patient reportssmoking only dafne pickett January 22, 2003 10:42 AM LIFETIME NON-SMOKER [facility] Aug 18, 2001 01:54 PM LIFETIME NON-TOBACCO USER [facility] pt states he has never smoked May 14, 2001 02:23 PM LIFETIME NON-SMOKER [facility] Encounter Notes: All associated encounter notes This section contains the clinical notes associated to the Encounter. Date/Time Encounter Note(s) Provider Source Dec 01, 2021 03:24 PM DIABETOLOGY TELEPHONE ENCOUNTER NOTE: RADHA CLINTON [facility] LOCAL TITLE: DIABETES EDU TELEPHONE NOTE STANDARD TITLE: DIABETOLOGY TELEPHONE ENCOUNTER NOTE DATE OF NOTE: DEC 01, 2021@15:24 ENTRY DATE: DEC 01, 2021@15:24:56 AUTHOR: RADHA ALEJANDRE EXP COSIGNER: URGENCY: STATUS: COMPLETED called [place] to set up tra ining for Sidra 2 and he tells me that he is waiting for a callback from regarding elevated blood sugars he has had for several weeks since stopping his metformin. He reports all readings are over 300. He has self increase his nov olog dose from 11 to 14 units TID and continues with lantus 55 units PM. Appt made for sidra 2 training. Advised per protocol to increase novolog pre meals to 16 units TID and to increase lantus to 60 units at HS. He verbalized understanding time spent 6 minutes reason: type 2 diabetes /es/ RADHA ALEJANDRE, ENGINEER INTERN CDE REGISTERED NURSE Signed: 12/01/2021 15:27 Receipt Acknowledged By: * AWAITING SIGNATURE * DELMER STALLINGS
--- OUTSIDE RECORDS SUMMARY | 2022-07-08 12:34 | XMS_ITS ---
:1950 Author Organization Department of [facility] rs Address [address] [place] [address] Support Name Relationship Address Phone THANIA BERGER Rosmery Unavailable [address] [place] [address] AMELIA BERGER Unavailable [address] [place] [address] Insurance Providers: All historical and current Section [...] AARP INS PRESCRIPT MEDIC Sep 16, PDPIND [id number] [phone] YESSI BERGERZhane PATIENT ION ARE D 2017 [id number] IS MEDICAID MEDICAID [facility] Jul 17, MEDICAI [id number] [phone] DAYAMI BERGER PATIENT EALTH 2014 D [id number] IS [place] [place] MEDICARE MEDICARE PART Sep 16, PART A [id number] [phone] Rosmery BERGER PATIENT (WNR) (M) A 2010 00 IS MEDICARE MEDICARE PART Sep 16, PART B [id number] [phone] Rosmery BERGER PATIENT (WNR) (M) B 2010A 00 IS MEDICARE MEDICARE PART Sep 16, PART B [id number] Rosmery BERGER PATIENT (WNR) (M) B 2010 [id number] 2 IS MEDICARE MEDICARE PART Sep 16, PART A [id number] Rosmery BERGER PATIENT (WNR) (M) A 2010 [id number] 2 IS Selected Encounter This section includes the information on record at [place] for the Encounter. Date/Time Encounter Type Encounter Reason Provider Source Description Nov 24, 2021 [facility] ICD-10-CM Z51.81 Dm MATTHEW 08:35 AM ASSMT&MGMT 5-10 Encounter for A A therapeutic drug level monitoring with Provider Comments: Therapeutic Drug Level Monitoring IHE Encounter Template Text not used by [place] Assessments - Encounter Diagnoses This section includes the primary and secondary diagnoses documented for the Encounter. Date/Time Primary/Secondary Diagnosis Name Provider Source Diagnosis Nov 24, 2021 PRIMARY Encounter for PAMELA MATTHEW [facility] WST RN 08:36 AM therapeutic drug A A [facility] level monitoring Plan of Treatment: Future Appointments (+ 6 months) and Future Tests (+/- 45 days) The Plan of Treatment section includes future care activities for the patient from [facility] [place] [facility]. This section includes future appointments and future orders which are active, pending orscheduled.Future Appointments This section includes appointments that were scheduled to occur 6 months from the date of the Encounter, up to a maximum of 20 appointments. The data comes from all [facility]. Appointment Date/Time Appointment Type Appointment Facili ty Name Dec 21, 2021 03:30 PM [facility] Jan 05, 2022 03:30 PM [facility] January 23, 2022 03:00 PM [facility] [place] [facility] Feb 14, 2022 08:00 AM [facility] [place] [facility] Mar 06, 2022 03:00 PM [facility] Mar 09, 2022 12:00 PM [facility] Mar 23, 2022 01:30 PM [facility] Mar 26, 2022 04:00 PM [facility] Apr 02, 2022 04:00 PM [facility] Apr 17, 2022 03:15 PM [facility] May 14, 2022 02:15 PM [facility] Active, Pending, and Scheduled Orders This section [...] 12:00 AM Laboratory - Chemistry CBC BLOOD [facility] Order (LAV[facility]BLOOD) [facility] Dec 30, 2021 12:00 AM Laboratory - Chemistry [facility] Order PANEL (non-fasting) [facility] BLOOD (SST-SERUM) SP Lab Results: +/- 30 days of the encounter This section includes the Chemistry and Hematology Lab Results on record with [place] for the patient. Radiology Reports and Pathology Reports are provided separately, in subsequent sections.Lab Results This section contains the Chemistry/Hematology Results that were resulted 30 days before or 30 daysafter the date of the Encounter. Date/Time Source Result Type Result - Unit Interpretation Reference Range Comment Nov 16, 2021 [facility] BASIC METABOLIC PANEL Specimen Type: SERUM 02:27 PM [facility] (non-fasting) No comment enter ed. Ordering Provid er: DELMER STALLINGS Report Released Date/Time: Oct 25, 2021 12:46 PM Reporting Lab: [facility] [address] [address] Performing Lab: [facility] [address] [address] UREA NITROGEN 27 H 7-25 GLUCOSE 349 [...] 11, 2021 01:18 PM [place]-TO[place] NEVER USED [facility] Encounter Notes: All associated encounter notes This section contains the clinical notes associated to the Encounter. Date/Time Encounter Note(s) Provider Source Nov 24, 2021 08:35 MEDICATION MGT CONSULT: ROB MATTHEW [facility] TITLE: CONSULT REPORT/NON FORMULARY PADR [facility] STANDARD TITLE: MEDICATION MGT CONSULT DATE OF NOTE: NOV 24, 2021@08:35 ENTRY DATE: NOV 24, 2021@08:35:39 AUTHOR: ROB MATTHEW COSIGNER: URGENCY: STATUS: COMPLETED CONSULT REPORT/NON FORMULARY PADR Has ADDEN DA The medical record has been reviewed with regard to this restricted drug request. Medication requested: GLUCOSE SENSOR FREESTYLE ANTOINE 2 Medication indication: DM Medical history relevant to this request: Pt has been seen by DM education on 11/16/21: He clearly has poor insight regarding his diabetes and I do concur that wearing a glucose sensor could be most beneficial. His aleah washingtonlfriend who is RN is also willing to help him with this. Pt's current DM regimen: --novolog pre meals: B/L/D --lantus 55 units at bedtime most recent A1C: 9.7% 10/18/21 All the following criteria must be met: [X ]One of the following: -Type 1 diabetes, otherwise a candidate for use of real time CGM with alerts such as Dexcom, but has refused use -Type 2 diabetes on MDI regimen with basal-bolu s insulin OR on an insulin pump [X ] Documentation of need to perform blood gluc ose testing at least 4 times daily AND at least one of the following: [X ]Difficulty achieving glycemic targets due t o wide fluctuations in glycemic control despite continued attempts [ X]Labile glucose control with ongoing frequen t insulin adjustments requiring CGM data [ ]Documented limitation to perform minimum juliann quency of blood glucose testing (i.e. based on clinical judgement, to i nclude but not limited to those with cognitive impairment, vis ual impairment, fear of needles, Raynauds, significant neuropathy) [ ]Patient refuses self-monitoring blood glucos e (SMBG) despite repeated education and/or does not monitor ofte n enough to allow for meaningful insulin dosing recommendations t o be made [X ] Followed by [facility] diabetes management t eam (diabetes education, pharmacy, or endocrine). If followed by a Non-V A child care centre director must maintain annual follow-up with a diabetes manag ement team provider to maintain supplies [X ] Demonstrated adherence to appointments, ana atment recommendations, and SMBG recommendations Criteria for Ongoing Use - Adherence to appointments and treatment recomm endations if indicated - Improved glycemic control (by at least one bobby sure): o A1c (or average glucose if A1c is considered unreliable) o Less glycemic variability - Consider discontinuation for patients who are lost to follow-up with the diabetes management team or no longer have ongoi ng indications for CGM use - Evaluate appropriateness of continued use ligia ally at minimum The request is approved - A documented therapeutic failure of the prefer red formulary alternative(s) exists - No formulary-preferred alternative /jamal/ ROB MATTHEW CLINICAL DUMPCART DRIVER Signed: 11/24/2021 08:39 11/30/2021 ADDENDUM STATUS: COMPLETED [employer] ready for pick up man /jamal/ DELMER STALLINGS MD STAFF PHYSICIAN Signed: 11/30/2021 20:00 Receipt Acknowledged By: * AWAITING SIGNATURE * RADHA ALEJANDRE
--- OUTSIDE RECORDS SUMMARY | 2022-07-08 12:35 | XMS_ITS | Encounter Summary ---
:1950 Author Organization Department of [facility] rs Address [address] [place] [address] Support Name Relationship Address Phone THANIA BERGER Rosmery Unavailable [address] [place] [address] [place] [address] AMELIA BERGER Unavailable [address] [place] [address] Insurance Providers: All historical and current Section [...] AARP INS PRESCRIPT MEDIC Sep 16, PDPIND [id number] [phone] YESSI BERGERZhane PATIENT ION ARE D 2017 [id number] IS MEDICAID MEDICAID [facility] Jul 17, MEDICAI [id number] DAYAMI BERGER PATIENT EALTH 2014 D [id number] IS STAND CHRISTOPHER MEDICARE MEDICARE PART Sep 16, PART A [id number] [phone] Rosmery BERGER PATIENT (WNR) (M) A 2010A 00 IS MEDICARE MEDICARE PART Sep 16, PART B [id number] [phone] Rosmery BERGER PATIENT (WNR) (M) B 2010A 00 IS MEDICARE MEDICARE PART Sep 16, PART A [id number] Rosmery BERGER PATIENT (WNR) (M) A 2010 XH29 2 IS MEDICARE MEDICARE PART Sep 16, PART B [id number] Rosmery BERGER PATIENT (WNR) (M) B 2010 XH29 2 IS Selected Encounter This section includes the information on record at [place] for the Encounter. Date/Time Encounter Type Encounter Reason Provider Source Description Dec 21, 2021 CONT GLUC [facility]TR DIABETES CLINIC ICD-10-CM E11.65 TYRESE ALEJANDRE 03:30 PM PT PROV EQP Type 2 diabetes mellitus with hyperglycemia with Provider Comments: Type 2 diabetes mellitus with hyperglycemia IHE Encounter Template Text not used by [place] Assessments - Encounter Diagnoses This section includes the primary and secondary diagnoses documented for the Encounter. Date/Time Primary/Secondary Diagnosis Name Provider Source Diagnosis Dec 22, 2021 PRIMARY Type 2 diabetes RADHA ALEJANDRE [place] 10:28 AM mellitus with hyperglycemia Plan of Treatment: Future Appointments (+ 6 months) and Future Tests (+/- 45 days) The Plan of Treatment section includes future care activities for the patient from all [place] [facility] This section includes future appointments and future orders which are active, pending orscheduled.Future Appointments This section includes appointments that were scheduled to occur 6 months from the date of the Encounter, up to a maximum of 20 appointments. The data comes from all [facility]. Appointment Date/Time Appointment Type Appointment Facili ty Name Jan 05, [facility]22 03[facility] January 23, 2022 03:00 PM [facility] Feb 14, 2022 08:00 AM [facility] Mar 06, 2022 03:00 PM [facility] Mar 09, 2022 12:00 PM [facility] Mar 23, 2022 01:30 PM [facility] Mar 26, 2022 04:00 PM [facility] Apr 02, 2022 04:00 PM [facility] Apr 17, 2022 03:15 PM [facility] May 14, 2022 02:15 PM [facility] Jun 14, 2022 01:30 PM [facility] Active, Pending, and Scheduled Orders This section includes a listing of several types of active, pending, and scheduled orders, including clinic medications orders, diagnostic test orders, procedure orders and consult orders; where the start date of the order is 45 days before the date of the Encounter or 45 days after the date of the Encounter. The data comes from all [facility]. Test Date/Time Test Type Test Details Facility Name Dec 30, 2021 12:00 AM Laboratory - Chemistry [facility] PAN[facility] (non-fasting) [facility] BLOOD (SST-SERUM) SP Dec 30, 2021 12:00 AM Laboratory - Chemistry CBC BLOOD [facility] Order (LAV-BLOOD) SP [facility] Lab Results: +/- 30 days [...] Result - Unit Interpretation Reference Range Comment January 18, 2022 07:58 [facility] PTH INTACT Specimen Typ e: SERUM AM [place] [facility] No comment enter ed. Ordering Provid er: MELANIA RAMOS Report Released Date/Time: Nov 08, 2021 04:09 PM Reporting Lab: [facility] [place] [facility] [address] [facility] [address] Performing Lab: [facility] [place] [facility] [address] [facility] [address] PTH INTACT 122.6 H 10-65 January 18, 2022 07:58 [facility] MAGNESIUM Specimen Typ e: SERUM AM [place] [facility] No comment enter ed. Ordering Provid er: MELANIA RAMOS Report Released Date/Time: Nov 08, 2021 04:09 PM Reporting Lab: [facility] [place] [facility] [address] [facility] [address] Performing Lab: [facility] [place] [facility] [address] [facility] [address] MAGNESIUM 2.0 1.6-2.6 January 18, 2022 07:58 [facility] [place] CALCIUM S pecimen Type: SERUM AM [facility] No comment enter ed. Ordering Provid er: MELANIA RAMOS Report Released Date/Time: Nov 08, 2021 04:09 PM Reporting Lab: [facility] [place] [facility] [address] [facility] [address] Performing Lab: [facility] [place] [facility] [address] [facility] [address] CALCIUM 9.9 8.5-10.2 January 18, 2022 07:58 AM [facility] [place] PO4 Specimen Type: [facility]UM [facility] No comment enter ed. Ordering Provid er: MELANIA RAMOS Report Released Date/Time: Nov 08, 2021 04:09 PM Reporting Lab: [facility] [place] [facility] [address] [facility] [address] Performing Lab: [facility] [place] [facility] [address] [facility] [address] PO4 3.5 2.5-5.0 January 18, 2022 [facility] ALKALINE PHOSPHATASE Specimen T ype: SERUM 07:58 AM [place] [facility] No comment enter ed. Ordering Provid er: MELANIA RAMOS Report Released Date/Time: Nov 08, 2021 04:09 PM Reporting Lab: [facility] [place] [facility] [address] [facility] [address] Performing Lab: [facility] [place] [facility] [address] [facility] [address] ALKALINE PHOSPHATASE 83 40-150 January 18, 2022 [facility] BASIC METABOLIC PANEL Specimen Type: SERUM 07:58 AM [place] [facility] (non-fasting) No comment enter ed. Ordering Provid er: MELANIA RAMOS Report Released Date/Time: Nov 08, 2021 04:09 PM Reporting Lab: [facility] [place] [facility] [address] [facility] [address] Performing Lab: [facility] [place] [facility] [address] [facility] [address] UREA NITROGEN 22 7-25 GLUCOSE 203 H 65-100 SODIUM 138 135-145 POTASSIUM 4.4 3.5-5.0 CHLORIDE 106 100-110 CO2 25 20-30 CREATININE, Serum 1.68 H 0.50-1.40 eGFR(CKD-EPI 2020) 43 L >60 January 18, 2022 [facility] HEMOGLOBIN A1C PANEL Specimen T ype: BLOOD 07:58 AM [place] [facility] Comment: Testin g performed by [...] Provid er: DELMER STALLINGS Report Released Date/Time: Dec 29, 2021 01:34 PM Reporting Lab: [facility] [place] [facility] [address] [facility] [address] Performing Lab: [facility] [place] [facility] [address] [facility] [address] HEMOGLOBIN A1C 10.5 H 4.0-5.6 January 18, 2022 [facility] MICROALBUMIN CREATININE Specime n Type: URINE 07:58 AM [place] [facility] RATIO PANEL No comment enter ed. Ordering Provid er: DELMER STALLINGS Report Released Date/Time: Dec 29, 2021 01:34 PM Reporting Lab: [facility] [place] [facility] [address] [facility] [address] Performing Lab: [facility] [place] [facility] [address] [facility] [address] MICROALBUMIN/CREATININE RATIO 308.5 H 0-29.9 MICROALBUMIN,QUANTITATIVE 20.7 RR U NAVAIL CREATININE URINE 67.10 January 18, 2022 07:58 [facility] LIPID PANEL FASTING Specimen Type: SERUM AM [place] [facility] No comment enter ed. Ordering Provid er: DELMER STALLINGS Report Released Date/Time: Dec 29, 2021 01:34 PM Reporting Lab: [facility] [place] [facility] [address] [facility] [address] Performing Lab: [facility] [place] [facility] [address] [facility] [address] CHOLESTEROL 192 <7-199 TRIGLYCERIDE 180 H 0-150 LDL calculated 118 0-129 CHOL/HDL 5.1 HDL CHOLESTEROL 38 L 40-60 January 18, 2022 [facility] BASIC METABOLIC PANEL Specimen Type: SERUM 07:58 AM [place] [facility] (fasting) No comment enter ed. Ordering Provid er: STALLINGS,DELMER Report Released Date/Time: Dec 29, 2021 01:34 PM Reporting Lab: [facility] [address] [facility] [address] Performing Lab: [facility] [address] [facility] [address] UREA NITROGEN 22 7-25 GLUCOSE 207 H 65-100 SODIUM 138 135-145 POTASSIUM 4.5 3.5-5.0 CHLORIDE 105 100-110 CO2 27 20-30 CREATININE, Serum 1.73 H 0.50-1.40 eGFR(CKD-EPI 2020) 42 L >60 Social History: Smoking Status (Most [...] Comment Facility February 03, 2019 10:28 AM GA-TOBACCO NEVER USED [facility] Tobacco Use History This section includes a history of the smoking, or tobacco- related health factors, that were collected on or before the date of the Encounter. The data comes from the [place] facility where the Encounter took place. Date/Time Smoking Status/Tobacco Use Comment Debbie thao Jan 13, 2018 09:49 AM LIFETIME NON-TOBACCO USER [place] Jan 04, 2017 10:17 AM LIFETIME NON-TOBACCO USER [place] Dec 23, 2015 08:49 AM LIFETIME NON-TOBACCO USER [place] Nov 27, 2005 02:55 PM LIFETIME NON-TOBACCO USER [place] patient reportssmoking only dafne pickett January 22, 2003 10:42 AM LIFETIME NON-SMOKER [facility] Aug 18, 2001 01:54 PM LIFETIME NON-TOBACCO USER [place] pt states he has never smoked May 14, 2001 02:23 PM LIFETIME NON-SMOKER [facility] Encounter Notes: All associated encounter notes This section contains the clinical notes associated to the Encounter. Date/Time Encounter Note(s) Provider Source Dec 21, 2021 03:30 PM DIABETOLOGY EDUCATION NOTE: RADHA ALEJANDRE [place] LOCAL TITLE: DIABETES EDU FOLLOW UP STANDARD TITLE: DIABETOLOGY EDUCATION NOTE DATE OF NOTE: DEC 21, 2021@15:30 ENTRY DATE: DEC 22, 2021@10:21:23 AUTHOR: RADHA ALEJANDRE EXP COSIGNER: URGENCY: STATUS: COMPLETED DIABETES EDU FOLLOW UP Has ADDENDA Demographics: Patient Name: JESSICA BERGER : Aug Age: 71 Sex: MALE Race: WHITE REASON FOR VISIT: follow up for [facility] with type 2 diabetes and i s being seen today in the company of his to learn how to wear and use a Sidra 2 sensor. MOST RECENT LABS: HEMOGLOBIN A1C TREND Collection [...] 148 28 L 5.3 83 185 H WEIGHT: 228 lb [103.42 kg] (11/13/2021 09:18) HEIGHT: 68 in [172.7 cm] (08/06/2019 09:26) BMI: 34.7 CURRENT DIABETES MEDICATIONS: --novolog 16 units TID --lantus 60 units at bedtime Freestyle Sidra 2 14 day sensor training The following items were covered during this tra inin.Setting up the reader including target range o f 70 to 180 2.Applying the sensor. CODE: G02 SN: [id number] EXP.DATE: 06/15/22 3.Set up alarms: Low @ 70 High @ OFF 4.Sensor placed on back of RIGHT UPPER ARM 5.Starting the 14 day sensor 6.Checking/scanning/must scan at least once ever y 8 hours- recommendation to scan 10-15 x daily 7.Reviewing the history on the reader ASSESSMENT: reports that he continues to have elevat ed blood glucose levels. He reports all except one in the past week are over 200. Today his FBG was 220 mg/dL. He did not bring his meter and did not fo llow previous instructions to increase novolog to 18 per 's note. His had to assist him today with placement of the sensor and she did a great job. They had many wonderful questions and both are excited to be abl e to use this device. They do not have computer access and his phone does have the Cureeo olvin available. They wanted to wait on trying to use an olvin for now. His phone has a large cover on it which may prevent him from being successful in checkin g his glucose readings. given the following instructions: --Call [facility] dedicated phone number if sensor falls off before 14 days for replacement of sensor of if sensor has to be removed for a MRI, CT, xray, diathermy, or if reader has error messages or any other operating concerns regarding using the sensor * [facility] Dedicated Hotline toll free number is: (341-AN-FKBAT) *The business hours of the hotline will be: 8 am - 8 pm EST, every day including weekends, e xcluding holidays --increase novolog to 18 units TID --increase lantus to 66 units at bedtime(10% per protocol) --follow up scheduled in two weeks via phone FOLLOW UP APPTS: 01/03/2022 08:30 CWM/NO/NEPHROLOGY TEL-X 01/23/2022 15:00 NHM/ENDOCRINE TELE 03/06/2022 15:00 CWM/SO/PODIATRY/MAUDE DM type is : Type II Diabetes with hyperglycemia req insulin/sensor Length of Visit: 30 minutes /jamal/ RADHA ALEJANDRE RN BSN CDE REGISTERED NURSE Signed: 12/22/2021 10:29 12/22/2021 ADDENDUM STATUS: COMPLETED , please place order for Sidra 2 sensors for this . /jamal/ RADHA ALEJANDRE RN BSN CDE REGISTERED NURSE Signed: 12/22/2021 10:29 Receipt Acknowledged By: * AWAITING SIGNATURE * DELMER STALLINGS
--- OUTSIDE RECORDS SUMMARY | 2022-07-08 12:35 | XMS_ITS ---
:1950 Author Organization Department of [facility] rs Address [address] [place] [address] Support Name Relationship Address Phone THANIA BERGER Unavailable [address] [place] [address] [place] [address] AMELIA BERGER Unavailable [address] [place] [address] Insurance Providers: All historical and current Section [...] AARP INS PRESCRIPT MEDIC Sep 16, PDPIND [id number] [phone] DAYAMI BERGER PATIENT ION ARE D 2017 [id number] IS MEDICAID MEDICAID [facility] Jul 17, MEDICAI [id number] [phone] DAYAMI BERGER PATIENT EALTH 2014 D [id number] 900 IS STAND CHRISTOPHER MEDICARE MEDICARE PART Sep 16, PART A [id number] [phone] Rosmery BERGER PATIENT (WNR) (M) A 2010 00 IS MEDICARE MEDICARE PART Sep 16, PART B [id number] [phone] Rosmery BERGER PATIENT (WNR) (M) B 2010 00 IS MEDICARE MEDICARE PART Sep 16, PART A [id number] Rosmery BERGER PATIENT (WNR) (M) A 2010 XH29 2 IS MEDICARE MEDICARE PART Sep 16, PART B [id number] Rosmery BERGER PATIENT (WNR) (M) B 2010 XH29 2 IS Selected Encounter This section includes the information on record at [place] for the Encounter. Date/Time Encounter Type Encounter Description Reason Provider Source Jan 02, 2022 01:30 Outpatient Encounter RENAL/NEPHROL(EXCEPT PM DIALYSIS) IHE Encounter Template Text not used by [place] Plan of Treatment: Future Appointments (+ 6 months) and Future Tests (+/- 45 days) The Plan of Treatment section includes future care activities for the patient from all [place] [facility]. This section includes future appointments and future orders which are active, pending orscheduled.Future Appointments This section includes appointments that were scheduled to occur 6 months from the date of the Encounter, up to a maximum of 20 appointments. The data comes from all [place] treatment [facility]. Appointment Date/Time Appointment Type Appointment Facili ty Name Jan 05, 2022 03:30 PM [facility] January 23, 2022 03:00 PM [facility] Feb 14[facility] 2022 08:00 AM [facility] Mar 06, 2022 03:00 PM [facility] Mar 09, 2022 12:00 PM [facility] Mar 23, 2022 01:30 PM [facility] Mar 26, 2022 04:00 PM [facility] Apr 02, 2022 04:00 PM [facility] Apr 17, 2022 03:15 PM [facility] May 14, 2022 02:15 PM [facility] Jun 14, 2022 01:30 PM [facility] Jul 04, 2022 03:00 PM [facility] Jul 04, 2022 03:15 PM [facility] Active, Pending, and Scheduled Orders This section includes a listing of several types of active, pending, and scheduled orders, including clinic medications orders, diagnostic test orders, procedure orders and consult orders; where the start date of the order is 45 days before the date of the Encounter or 45 days after the date of the Encounter. The data comes from all [place] treatment [facility]. Test Date/Time Test Type Test Details Facility Name Dec 30, 2021 12:00 Laboratory - BASIC METABOLIC PANEL [facility] Chemistry Order (non-fasting) BLOOD [place] [facility] (SST-SERUM) SP Dec 30, 2021 12:00 Laboratory - CBC BLOOD (LAV-BLOOD) [facility] AM Chemistry Order SP [place] [facility] February 05, 2022 12:00 Laboratory - MICROALBUMIN CREATININE [facility] AM Chemistry Order RATIO PANEL URINE [place] [facility] (RANDOM) SP Lab Results: +/- 30 days of [...] Reference Range Comment January 18, 2022 07:58 AM [facility] [place] PO4 Specimen Type: SERUM [facility] No comment enter ed. Ordering Provid er: MELANIA RAMOS Report Released Date/Time: Nov 08, 2021 04:09 PM Reporting Lab: [facility] [place] [facility] [address] [facility] [address] Performing Lab: [facility] [place] [facility] [address] [facility] [address] PO4 3.5 2.5-5.0 January 18, 2022 07:58 [facility] PTH INTACT Specimen Typ e: SERUM AM [place] [facility] No comment enter ed. Ordering Provid er: MELANIA RAMOS Report Released Date/Time: Nov 08, 2021 04:09 PM Reporting Lab: [facility] [place] [facility] [address] [facility] [address] Performing Lab: [facility] [place] [facility] [address] [facility] [address] PTH INTACT 122.6 H 10-65 January 18, 2022 07:58 [facility] MAGNESIUM Specimen Typ e: SERUM AM [place] [facility] No comment enter ed. Ordering Provid er: MELANIA RAMOS Report Released Date/Time: Nov 08, 2021 04:09 PM Reporting Lab: [facility] [place] [facility] [address] [facility] [address] Performing Lab: [facility] [place] [facility] [address] [facility] [address] MAGNESIUM 2.0 1.6-2.6 January 18, 2022 07:58 [facility] [place] CALCIUM S pecimen Type: SERUM AM [facility] No comment enter ed. Ordering Provid er: MELANIA RAMOS Report Released Date/Time: Nov 08, 2021 04:09 PM Reporting Lab: [facility] [place] [facility] [address] [facility] [address] Performing Lab: [facility] [place] [facility] [address] [facility] [address] CALCIUM 9.9 8.5-10.2 January 18, 2022 [facility] ALKALINE PHOSPHATASE Specimen T ype: SERUM 07:58 AM [place] [facility] No comment enter ed. Ordering Provid er: MELANIA RAMOS Report Released Date/Time: Nov 08, 2021 04:09 PM Reporting Lab: [facility] [place] [facility] [address] [facility] [address] Performing Lab: [facility] [place] [facility] [address] [facility] [address] ALKALINE PHOSPHATASE 83 40-150 January 18, 2022 [facility] BASIC METABOLIC PANEL Specimen Type: SERUM 07:58 AM [place] [facility] (non-fasting) No comment enter ed. Ordering Provid er: MELANIA RAMOS Report Released Date/Time: Nov 08, 2021 04:09 PM Reporting Lab: [facility] [place] [facility] [address] [facility] [address] Performing Lab: [facility] [place] [facility] [address] [facility] [address] UREA NITROGEN 22 7-25 GLUCOSE 203 H 65-100 SODIUM 138 135-145 POTASSIUM 4.4 3.5-5.0 CHLORIDE 106 100-110 CO2 25 20-30 CREATININE, Serum 1.68 H 0.50-1.40 eGFR(CKD-EPI 2020) 43 L >60 January 18, 2022 [facility] HEMOGLOBIN A1C PANEL Specimen T ype: BLOOD 07:58 AM [place] [facility] Comment: Testin g performed by [...] Dec 29, 2021 01:34 PM Reporting Lab: [facility] [place] [facility] [address] [facility] [address] Performing Lab: [facility] [place] [facility] [address] [facility] [address] HEMOGLOBIN A1C 10.5 H 4.0-5.6 January 18, 2022 [facility] MICROALBUMIN CREATININE Specime n Type: URINE 07:58 AM [place] [facility] RATIO PANEL No comment enter ed. Ordering Provid er: DELMER STALLINGS Report Released Date/Time: Dec 29, 2021 01:34 PM Reporting Lab: [facility] [place] [facility] [address] [facility] [address] Performing Lab[facility] [place] [facility] [address] [facility] [address] MICROALBUMIN/CREATININE RATIO 308.5 H 0-29.9 MICROALBUMIN,QUANTITATIVE 20.7 RR U NAVAIL CREATININE URINE 67.10 January 18, 2022 07:58 [facility] LIPID PANEL FASTING Specimen Type: SERUM AM [place] [facility] No comment enter ed. Ordering Provid er: DELMER STALLINGS Report Released Date/Time: Dec 29, 2021 01:34 PM Reporting Lab: [facility] [place] [facility] [address] [facility] [address] Performing Lab: [facility] [place] [facility] [address] [facility] [address] CHOLESTEROL 192 <7-199 TRIGLYCERIDE 180 H 0-150 LDL calculated 118 0-129 CHOL/HDL 5.1 HDL CHOLESTEROL 38 L 40-60 January 18, 2022 [facility] BASIC METABOLIC PANEL Specimen Type: SERUM 07:58 AM [place] [facility] (fasting) No comment enter ed. Ordering Provid er: DELMER STALLINGS Report Released Date/Time: Dec 29, 2021 01:34 PM Reporting Lab: [facility] [place] [facility] [address] [facility] [address] Performing Lab: [facility] [address] [facility] [address] UREA NITROGEN 22 7-25 GLUCOSE 207 H [...] 11, 2021 01:18 PM VA-TOBACCO NEVER [facility] [place] [facility] Encounter Notes: All associated encounter notes This section contains the clinical notes associated to the Encounter. Date/Time Encounter Note(s) Provider Source Dec 18, 2021 10:02 AM TELEPHONE ENCOUNTER NOTE: ROCKY MCCAULEY [facility] LOC[facility] TITLE: TELEPHONE NOTE/SPECIALTY CLINIC [facility] STANDARD TITLE: TELEPHONE ENCOUNTER NOTE DATE OF NOTE: DEC 18, 2021@10:02 ENTRY DATE: DEC 18, 2021@10:02:51 AUTHOR: ROCKY MCCAULEY EXP COSIGNER: URGENCY: STATUS: COMPLETED TELEPHONE NOTE/SPECIALTY CLINIC Has ADDENDA Called to remind of his Nephrology visit on 01-02-22 @1330. He states that he cannot make that time frame. Please call and reschedule [facility]. Thank-you. /jamal/ ROCKY Mccauley LPN LICENSED PRACTICAL NURSE Signed: 12/18/2021 10:04 Receipt Acknowledged By: 12/18/2021 16:22 /jamal/ NASEEM [employer] 12/20/2021 08:37 /jamal/ GARIMA SNOW 12/18/2021 ADDENDUM STATUS: COMPLETED cx appt. /jamal/ NASEEM SM[employer] Signed: 12/18/2021 14:37 12/18/2021 ADDENDUM STATUS: COMPLETED left a message to call back [phone] ext [phone] opt 3 to reschedule nephrology appt. /jamal/ NASEEM SM[employer] Signed: 12/18/2021 16:21 12/20/2021 ADDENDUM STATUS: COMPLETED pt rescheduled 01/03/22 tele-x /jamal/ GARIMA SNOW Signed: 12/20/2021 08:38 Receipt Acknowledged By: 12/20/2021 08:43 /es/ ROCKY Mccauley LPN LICENSED PRACTICAL NURSE
--- OUTSIDE RECORDS SUMMARY | 2022-07-08 12:35 | XMS_ITS | Encounter Summary ---
:1950 Author Organization Department of [facility] rs Address [address] [place] [address] Support Name Relationship Address Phone THANIA BERGER Rosmery [place]available [place] [address] AMELIA BERGER Unavailable [address] [place] [address] Insurance Providers: All historical and current Section [...] AARP INS PRESCRIPT MEDIC Sep 16, PDPIND [id number] [phone] YESSI BERGERZhane PATIENT ION ARE D 2017 251 [id number] IS MEDICAID MEDICAID [id number] Jul 17, MEDICAI [id number] [phone] YESSI BERGERZhane PATIENT EALTH 2014 D [id number] IS [place] MEDICARE MEDICARE PART Sep 16, PART A [id number] [phone] Rosmery BERGER PATIENT (WNR) (M) A 2010 00 IS MEDICARE MEDICARE PART Sep 16, PART B [id number] [phone] Rosmery BERGER PATIENT (WNR) (M) B 2010 00 IS MEDICARE MEDICARE PART Sep 16, PART A [id number] Rosmery BERGER PATIENT (WNR) (M) A 2010 XH29 2 IS MEDICARE MEDICARE PART Sep 16, PART B [id number] Rosmery BERGER PATIENT (WNR) (M) B 2010 XH29 2 IS Selected Encounter This section includes the information on record at [place] for the Encounter. Date/Time Encounter Type Encounter Reason Provider Source Description Dec 02, 2021 Outpatient TELEPHONE/MEDICI ICD-10-CM E11.8 DELMER STALLINGS 12:54 PM Encounter NE Type 2 diabetes mellitus with unspecified complications with Provider Comments: Type II diabetes mellitus ([facility] [id number]) IHE Encounter Template Text not used by [place] Assessments - Encounter Diagnoses This section includes the primary and secondary diagnoses documented for the Encounter. Date/Time Primary/Secondary Diagnosis Name Provider Source Diagnosis Dec 02, 2021 PRIMARY Type 2 diabetes DELMER STALLINGS [facility] WST RN 12:54 PM mellitus with [place] unspecified complications Plan of Treatment: Future Appointments (+ 6 months) and Future Tests (+/- 45 days) The Plan of Treatment section includes future care activities for the patient from [facility] This section includes future appointments and future orders which are active, pending orscheduled.Future Appointments This section includes appointments that were scheduled to occur 6 months from the date of the Encounter, up to a maximum of 20 appointments. The data comes from all [place] treatment [facility]. Appointment Date/Time Appointment Type Appointment Facili ty Name Dec 21, 2021 03:[address] [facility] Jan 05, 2022 03:30 PM [facility] January 23, 2022 03:00 PM [facility] [place] [place] [facility] Feb 14, 2022 08:00 [facility] [place] [facility] Mar 06, 2022 03:[address] [facility] Mar 09, 2022 12:[address] [facility] Mar 23, 2022 01:[address] [facility] Mar 26, 2022 04:[address] [facility] Apr 02, 2022 04:[address] [facility] Apr 17, 2022 03:[address] [facility] May 14, 2022 02:[address] [facility] Active, Pending, and Scheduled Orders This section includes a listing of several types of active, pending, and scheduled orders, including clinic medications orders, diagnostic test orders, procedure orders and consult orders; where the start date of the order is 45 days before the date of the Encounter or 45 days after the date of the Encounter. The data comes from all [facility]. Test Date/Time Test Type Test Details Facility Name Dec 30, 2021 12:00 AM Laboratory - Chemistry [facility]IC METABOLIC [facility] Order PANEL (non-fasting) [facility] BLOOD (SST-SERUM) SP Dec 30, 2021 12:00 AM Laboratory - [facility] ([facility]V-[facility]) SP [facility] Lab Results: +/- 30 days of the encounter This section includes the Chemistry and Hematology Lab Results on record with ND for the patient. Radiology Reports and Pathology Reports are provided separately, in subsequent sections.Lab Results This section contains the Chemistry/Hematology Results that were resulted 30 days before or 30 daysafter the date of the Encounter. Date/Time Source Result Type Result - Unit Interpretation Reference Range Comment Nov 16, 2021 [facility] BASIC METABOLIC PANEL Specimen Type: SERUM 02:27 PM [facility] (non-fasting) No comment enter ed. Ordering Provid er: DELMER STALLINGS Report Released Date/Time: Oct 25, 2021 12:46 PM Reporting Lab: [facility] [address] [facility] [address] Performing Lab: [facility] [address] [facility] [address] UREA NITROGEN 27 H 7-25 GLUCOSE 349 H 65-100 SODIUM 135 135-145 POTASSIUM 4.4 3.5-5.0 CHLORIDE 100 100-110 CO2 26 20-30 CREATININE, Serum 1.89 H 0.50-1.40 eGFR (IDMS) 36 L >60 Social History: Smoking Status (Most current) and Tobacco Use (All prior to encounter date) This section includes the most current, and the historical, smoking and tobacco-related health factors from the [place] facility where the Encounter took place.Current Smoking Status This section includes the most current smoking, or tobacco-related health factor, from the [place] facility where the Encounter took place. Date/Time Current Smoking Status Comment Facility May 11, 2021 01:18 PM VA-TOBACCO NEVER USED [facility] Encounter Notes: All associated encounter notes This section contains the clinical notes associated to the Encounter. Date/Time Encounter Note(s) Provider Source Dec 02, 2021 12:54 PM PHYSICIAN NOTE: [facility]PRISE[facility] LOCAL TITLE: MD BLOSSOM Toro [facility] STANDARD TITLE: PHYSICIAN NOTE DATE OF NOTE: DEC 02, 2021@12:54 ENTRY DATE: DEC 02, 2021@12:54:37 AUTHOR: DELMER STALLINGS COSIGNER: URGENCY: STATUS: COMPLETED Dx DM 2 Pt's bg have not been under 200 since metformin stopped. Yesterday, DM educator increased lantus to 60 u nits and novolog to 16 units TID. FBG today 208. BG before lunch 278. If bg r emain elevated, increase novolog to 18 units TID. Reminded of role of CHO consistency to avoid hypoglycemia. Let me know if bg remain elevated. Used CCHT in the past. He prefers to see how he does after adjustments bef ore agreeing to restart CCHT. 8 min telephone encounter. /jamal/ DELMER STALLINGS MD STAFF PHYSICIAN Signed: 12/02/2021 13:02
--- OUTSIDE RECORDS SUMMARY | 2022-07-08 12:36 | XMS_ITS ---
:1950 Author Organization Department of [facility] rs Address [address] [place] [address] Support Name Relationship Address Phone THANIA BERGER [place]mery [place] [address] AMELIA BERGER Unavailable [address] [place] [address] Insurance Providers: All historical and current Section [...] AARP INS PRESCRIPT MEDIC Sep 16, PDPIND [id number] [phone] YESSI BERGERZhane PATIENT ION ARE D 2017 [address] [facility] Jul 17, MEDICAI [id number] [phone] YESSI BERGERZhane PATIENT EALTH 2014 D [id number] [place] MEDICARE MEDICARE PART Sep 16, PART A [id number] [phone] Rosmery BERGER PATIENT (WNR) (M) A 2010 00 IS MEDICARE MEDICARE PART Sep 16, PART B [id number] [phone] Rosmery BERGER PATIENT (WNR) (M) B 2010 00 IS MEDICARE MEDICARE PART Sep 16, PART A [id number] Rosmery BERGER PATIENT (WNR) (M) A 2010 XH29 2 IS MEDICARE MEDICARE PART Sep 16, PART B [id number] Rosmery BERGER PATIENT (WNR) (M) B 2010 XH29 2 IS Selected Encounter This section includes the information on record at [place] for the Encounter. Date/Time Encounter Type Encounter Reason Provider Source Description Jan 05, 2022 HC PRO PHONE TELEPHONE/MEDICIN ICD-10-CM E11.65 TYRESE ALEJANDRE 03:30 PM CALL 11-20 MIN E Type 2 diabetes mellitus with hyperglycemia with Provider Comments: Type 2 diabetes mellitus with hyperglycemia IHE Encounter Template Text not used by [place] Assessments - Encounter Diagnoses This section includes the primary and secondary diagnoses documented for the Encounter. Date/Time Primary/Secondary Diagnosis Name Provider Source Diagnosis Jan 05, 2022 PRIMARY Type 2 diabetes RADHA ALEJANDRE [facility] WS TRN 03:30 PM mellitus with [place] [facility] hyperglycemia Jan 05, 2022 SECONDARY intermediate RADHA ALEJANDRE [facility] WSTRN 03:30 PM (current) use of [place] [facility] insulin Plan of Treatment: Future Appointments (+ 6 months) and Future Tests (+/- 45 days) The Plan of Treatment section includes future care activities for the patient from all [place] treatmentfacilities. This section includes future appointments and future orders which are active, pending orscheduled.Future Appointments This section includes appointments that were scheduled to occur 6 months from the date of the Encounter, up to a maximum of 20 appointments. The data comes from all [place] treatment facilities. Appointment Date/Time Appointment Type Appointment Facili ty Name January 23, 2022 03:00 PM [facility] Feb 14, 2022 08:00 AM [facility] Mar 06, 2022 03:00 PM [facility] Mar 09, 2022 12:00 PM [facility] Mar 23, 2022 01:30 PM [facility] Mar 26, 2022 04:00 PM [facility]ORY [facility] Apr 02, 2022 04:00 PM [facility] Apr 17, 2022 03:15 PM [facility]ORY [facility] May 14, 2022 02:15 PM [facility] Jun 14, 2022 01:30 PM [facility]UL[facility]ORY [facility] [place] [facility] Jul 04, 2022 03:00 PM [facility] [place] [facility] Jul 04, 2022 03:15 PM [facility] Jul 05, 2022 01:30 PM AMBULATORY - [facility] Active, Pending, and Scheduled Orders This section includes a listing of several types of active, pending, and scheduled orders, including clinic medications orders, diagnostic test orders, procedure orders and consult orders; where the start date of the order is 45 days before the date of the Encounter or 45 days after the date of the Encounter. The data comes from all [place] treatment facilities. Test Date/Time Test Type Test Details Facility Name Dec 30, 2021 12:00 Laboratory - CBC BLOOD (LAV-BLOOD) [facility] AM Chemistry Order SP [facility] Dec 30, 2021 12:00 Laboratory - BASIC METABOLIC PANEL [facility] Chemistry Order (non-fasting) BLOOD [facility] (SST-SERUM) SP February 05, 2022 12:00 Laboratory - MICROALBUMIN CREATININE [facility] AM Chemistry Order RATIO PANEL URINE [place] [facility] (RANDOM) SP Lab Results: +/- 30 days of the encounter This section includes the Chemistry and Hematology Lab Results on record with [place] for the patient. Radiology Reports and Pathology [...] [facility] [facility] [address] [facility] [address] Performing Lab: [facility] [facility] [address] [facility] [address] PO4 3.5 2.5-5.0 January 18, 2022 07:58 [facility] PTH INTACT Specimen Typ e: SERUM AM [facility] [facility] No comment enter ed. Ordering Provid er: MELANIA RAMOS Report Released Date/Time: Nov 08, 2021 04:09 PM Reporting Lab: [facility] [place] [facility] [address] [facility] [address] Performing Lab: [facility] [place] [facility] [address] [facility] [address] PTH INTACT 122.6 H 10-65 January 18, 2022 07:58 [facility] MAGNESIUM Specimen Typ e: SERUM AM [facility] [facility] No comment enter ed. Ordering Provid er: MELANIA RAMOS Report Released Date/Time: Nov 08, 2021 04:09 PM Reporting Lab: [facility] [place] [facility] [address] [facility] [address] Performing Lab: [facility] [place] [facility] [address] [facility] [address] MAGNESIUM 2.0 1.6-2.6 January 18, 2022 07:58 [facility] [place] CALCIUM S pecimen Type: SERUM AM [facility] No comment enter ed. Ordering Provid er: MELANIA RAMOS Report Released Date/Time: Nov 08, 2021 04:09 PM Reporting Lab: [facility] [place] [facility] [address] [facility] [address] Performing Lab: [facility] [place] [facility] [address] [facility] [address] CALCIUM 9.9 8.5-10.2 January 18, 2022 [facility] ALKALINE PHOSPHATASE Specimen T ype: SERUM 07:58 AM [facility] [facility] No comment enter ed. Ordering Provid er: MELANIA RAMOS Report Released Date/Time: Nov 08, 2021 04:09 PM Reporting Lab: [facility] [place] [facility] [address] [facility] [address] Performing Lab: [facility] [place] [facility] [address] [facility] [address] ALKALINE PHOSPHATASE 83 40-150 January 18, 2022 [facility] BASIC METABOLIC PANEL Specimen Type: SERUM 07:58 AM [place] [facility] (non-fasting) No comment enter ed. Ordering Provid er: MELANIA RAMOS Report Released Date/Time: Nov 08, 2021 04:09 PM Reporting Lab: [facility] [place] [facility] [address] [facility] [address] Performing Lab: [facility] [place] [facility] [address] [facility] [address] UREA NITROGEN 22 7-25 GLUCOSE 203 H 65-100 SODIUM 138 135-145 POTASSIUM 4.4 3.5-5.0 CHLORIDE 106 100-110 CO2 25 20-30 CREATININE, Serum 1.68 H 0.50-1.40 eGFR(CKD-EPI 2020) 43 L >60 January 18, 2022 [facility] HEMOGLOBIN A1C PANEL Specimen T ype: BLOOD 07:58 AM [place] [facility] Comment: Testin g performed by NGSP certified [...] Dec 29, 2021 01:34 PM Reporting Lab: [facility] [place] [facility] [address] [facility] [address] Performing Lab: [facility] [place] [facility] [address] [facility] [address] HEMOGLOBIN A1C 10.5 H 4.0-5.6 January 18, 2022 [facility] MICROALBUMIN CREATININE Specime n Type: URINE 07:58 AM [place] [facility] RATIO PANEL No comment enter ed. Ordering Provid er: DELMER STALLINGS Report Released Date/Time: Dec 29, 2021 01:34 PM Reporting Lab: [facility] [place] [facility] [address] [facility] [address] Performing Lab: [facility] [place] [facility] [address] [facility] [address] MICROALBUMIN/CREATININE RATIO 308.5 H 0-29.9 MICROALBUMIN,QUANTITATIVE 20.7 RR U NAVAIL CREATININE URINE 67.10 January 18, 2022 07:58 [facility] LIPID PANEL FASTING Specimen Type: SERUM AM [place] [facility] No comment enter ed. Ordering Provid er: DELMER STALLINGS Report Released Date/Time: Dec 29, 2021 01:34 PM Reporting Lab: [facility] [place] [facility] [address] [facility] [address] Performing Lab: [facility] [place] [facility] [address] [facility] [address] CHOLESTEROL 192 <7-199 TRIGLYCERIDE 180 H 0-150 LDL calculated 118 0-129 CHOL/HDL 5.1 HDL CHOLESTEROL 38 L 40-60 January 18, 2022 [facility] BASIC METABOLIC PANEL Specimen Type: SERUM 07:58 AM [place] [facility] (fasting) No comment enter ed. Ordering Provid er: DELMER STALLINGS Report Released Date/Time: Dec 29, 2021 01:34 PM Reporting Lab: [facility] [place] [facility] [address] [facility] [address] Performing Lab: [facility] [place] [facility] [address] [facility] [address] UREA NITROGEN 22 7-25 GLUCOSE 207 H 65-100 SODIUM 138 135-145 POTASSIUM 4.5 3.5-5.0 CHLORIDE 105 100-110 CO2 27 20-30 CREATININE, Serum 1.73 H 0.50-1.40 eGFR(CKD-EPI 2020) 42 L >60 Social History: Smoking Status (Most current) and Tobacco Use (All prior to encounter date) This section includes the most current, and the historical, smoking and tobacco-related health factors from the [place] facility where the Encounter took place.Current Smoking Status This section includes the most current smoking, or tobacco-related health factor, from the [place] facility where the Encounter took place. Date/Time Current Smoking Status Comment Facility May 11, 2021 01:18 PM VA-TOBACCO NEVER USED [facility] Encounter Notes: All associated encounter notes This section contains the clinical notes associated to the Encounter. Date/Time Encounter Note(s) Provider Source Jan 05, 2022 03:30 PM DIABETOLOGY TELEPHONE ENCOUNTER NOTE: RADHA CLINTON [facility] LOCAL TITLE: DIABETES EDU TELEPHONE NOTE [place] [facility] STANDARD TITLE: DIABETOLOGY TELEPHONE ENCOUNTER NOTE DATE OF NOTE: JAN 05, 2022@15:30 ENTRY DATE: JAN 05, 2022@15:58:54 AUTHOR: RADHA ALEJANDRE EXP COSIGNER: URGENCY: STATUS: COMPLETED DIABETES EDU TELEPHONE NOTE Has ADDENDA SENSOR FOLLOW UP DIABETES EDUCATION VISIT Demographics: Patient Name: JESSICA BERGER : Aug Age: 71 Sex: MALE Race: WHITE Due to COVID-19 precautions this visit has bee n converted to a telephone encounter. REASON FOR VISIT: follow up call to [place] with type 2 diabetes w ho started wearing a antoine 2 sensor two weeks ago. He reports I love it . MOST RECENT LABS: HEMOGLOBIN A1C TREND Collection [...] in [172.7 cm] (08/06/2019 09:26) BMI: 34.7 BLOOD GLUCOSE MONITORING INFORMATION OBTAINED FROM ANTOINE 2 SENSOR 7 DAY AVERAGE = 242 12am-6am 267 6am-12pm 247 12pm-6pm 198 6pm-12am 249 7 DAY TIME IN TARGET 84% ABOVE TARGET 16% IN TARGET 0% BELOW TARGET TOTAL 7 DAY LOW GLUCOSE EVENTS = 0 14 DAY TOTAL SENSOR USAGE SENSOR USAGE 95% SCANS PER DAY 15 DIABETES MEDICATIONS: --novolog 20 units TID pre meals --lantus 66 units at bedtime HYPOGLYCEMIA CAUSES/SYMPTOMS reports understanding TREATMENT/PREVENTION reports understanding HYPERGLYCEMIA CAUSES/SYMPTOMS reports understanding TREATMENT/PREVENTION reports understanding ASSESSMENT: [place] reports being extrem faiza happy with wearing a antoine sensor and is doing a great job of checking his glucose readin gs. However, he continues to have high glucose readings and is aski ng about an insulin adjustment today which was given to him at 10% as per protocol. He now re ports he is consuming water throughout the day and watching his portions better. STRATEGIES FOR BEHAVIOR CHANGE --increase novolog to 22 units TID pre meals --increase lantus to 72 units at bedtime --continue to have water as main beverage -continue to exercise daily as tolerated --next follow up with Dr.Abb freire-- [place] is unable to upload sensor from home. WHOLE HEALTH SELF-CARE AREAS DURING VISIT Individual engaged in activity related to the fo llowing areas during interaction: Moving the body Food and drink FOLLOW UP APPTS: 01/23/2022 15:00 NHM/ENDOCRINE TELE 02/14/2022 08:00 CWM/NO/NEPHROLOGY TEL-X 03/06/2022 15:00 CWM/SO/PODIATRY/MAUDE DM type is : Type II Diabetes with hyperglycemia req insulin Length of Visit: 11 minutes /jamal/ RADHA ALEJANDRE RN BSN CDE REGISTERED NURSE Signed: 01/08/2022 08:21 Receipt Acknowledged By: * AWAITING SIGNATURE * AMBIKA KNIGHT 01/08/2022 ADDENDUM STATUS: COMPLETED , insulin doses will need to be updated in CPRS /jamal/ RADHA ALEJANDRE RN BSN CDE REGISTERED NURSE Signed: 01/08/2022 08:22 Receipt Acknowledged By: * AWAITING SIGNATURE * DELMER STALLINGS
--- OUTSIDE RECORDS SUMMARY | 2022-07-08 12:36 | XMS_ITS ---
:1950 Author Organization [facility] rs Address [address] [place] [address] Support Name Relationship Address Phone THANIA BERGER Unavailable [address] [place] [address] [place] [address] CELINEAMELIA Unavailable [address] [place] [address] Insurance Providers: All historical and current Section [...] AARP INS PRESCRIPT MEDIC Sep 16, PDPIND [id number] [phone] CELINE DAYAMI PATIENT ION ARE D 2017 [id number] IS MEDICAID MEDICAID [facility] Jul 17, MEDICAI [id number] DAYAMI BERGER PATIENT EALTH 2014 D [id number] 900 IS STAND CHRISTOPHER MEDICARE MEDICARE PART Sep 16, PART A [id number] [phone] Rosmery BERGER PATIENT (WNR) (M) A 2010 00 IS MEDICARE MEDICARE PART Sep 16, PART B [id number] [phone] Rosmery BERGER PATIENT (WNR) (M) B 2010A 00 IS MEDICARE MEDICARE PART Sep 16, PART A [id number] Rosmery BERGER PATIENT (WNR) (M) A 2010 XH29 2 IS MEDICARE MEDICARE PART Sep 16, PART B [id number] Rosmery BERGER PATIENT (WNR) (M) B 2010 XH29 2 IS Selected Encounter This section includes the information on record at [place] for the Encounter. Date/Time Encounter Type Encounter Description Reason Provider Source January 22, 2022 08:53 Outpatient Encounter ADMIN PAT ACTIVTIES AM (MASNONCT) IHE Encounter Template Text not used by [place] Plan of Treatment: Future Appointments (+ 6 months) and Future Tests (+/- 45 days) The Plan of Treatment section includes future care activities for the patient [facility] [place] [facility] This section includes future appointments and future orders which are active, pending orscheduled.Future Appointments This section includes appointments that were scheduled to occur 6 months from the date of the Encounter, up to a maximum of 20 appointments. The data comes from all [place] treatment [facility]. Appointment Date/Time Appointment Type Appointment Facili ty Name January 23, 2022 03:00 PM [facility] Feb 14, 2022 08:00 AM [facility] Mar 06, 2022 03:00 PM [facility] Mar 09, 2022 12:00 PM [facility] Mar 23, 2022 01:30 PM [facility] Mar 26, 2022 04:00 PM [facility] Apr 02, 2022 04:00 PM [facility] Apr 17, 2022 03:15 PM [facility] May 14, 2022 02:15 PM [facility] Jun 14, 2022 01:30 PM [facility] Jul 04, 2022 03:00 PM [facility] Jul 04, 2022 03:15 PM [facility] Jul 05, 2022 01:30 PM [facility] Active, Pending, and Scheduled Orders This section includes a listing of several types of active, pending, and scheduled orders, including clinic medications orders, diagnostic test orders, procedure orders and consult orders; where the start date of the order is 45 days before the date of the Encounter or 45 days after the date of the Encounter. The data comes from all [facility]. Test Date/Time Test Type Test Details Facility Name Dec 30, 2021 12:00 Laboratory - BASIC METABOLIC PANEL [facility] Chemistry Order (non-fasting) BLOOD [place] [facility] [...] and Hematology Lab Results on record with [place] for the patient. Radiology Reports and Pathology Reports are provided separately, in subsequent sections.Lab Results This section contains the Chemistry/Hematology Results that were resulted 30 days before or 30 daysafter the date of the Encounter. Date/Time Source Result Type Result - Unit Interpretation Reference Range Comment January 18, 2022 07:58 [facility] PTH INTACT Specimen Typ e: SERUM AM [facility] [facility] No comment enter ed. Ordering Provid er: MELANIA RAMOS Report Released Date/Time: Nov 08, 2021 04:09 PM Reporting Lab: [facility] [place] [facility] [address] [facility] [address] Performing Lab: [facility] [place] [facility] [address] [facility] [address] PTH INTACT 122.6 H 10-65 January 18, 2022 07:58 AM [facility] [place] PO4 Specimen Type: SERUM [facility] No comment enter ed. Ordering Provid er: MELANIA RAMOS Report Released Date/Time: Nov 08, 2021 04:09 PM Reporting Lab: [facility] [place] [facility] [address] [facility] [address] Performing Lab: [facility] [place] [facility] [address] [facility] [address] PO4 3.5 2.5-5.0 January 18, 2022 07:58 [facility] MAGNESIUM Specimen Typ e: SERUM AM [place] [facility] No comment enter ed. Ordering Provid er: MELANIA RAMOS Report Released Date/Time: Nov 08, 2021 04:09 PM Reporting Lab: [facility] [place] [facility] [address] [facility] [address] Performing Lab: [facility] [place] [facility] [address] [facility] [address] MAGNESIUM 2.0 1.6-2.6 January 18, 2022 [facility] ALKALINE PHOSPHATASE Specimen T ype: SERUM 07:58 AM [place] [facility] No comment enter ed. Ordering Provid er: MELANIA RAMOS Report Released Date/Time: Nov 08, 2021 04:09 PM Reporting Lab: [facility] [place] [facility] [address] [facility] [address] Performing Lab: [facility] [place] [facility] [address] [facility] [address] ALKALINE PHOSPHATASE 83 40-150 January 18, 2022 07:58 [facility] [place] CALCIUM S pecimen Type: SERUM AM HCS No comment enter ed. Ordering Provid er: MELANIA RAMOS Report Released Date/Time: Nov 08, 2021 04:09 PM Reporting Lab: [facility] [place] [facility] [address] [facility] [address] Performing Lab: [place] [facility] [place] [facility] [address] [facility] [address] CALCIUM 9.9 8.5-10.2 January 18, 2022 [facility] BASIC METABOLIC PANEL Specimen Type: SERUM 07:58 AM [place] [facility] (non-fasting) No comment enter ed. Ordering Provid er: MELANIA RAMOS Report Released Date/Time: Nov 08, 2021 04:09 PM Reporting Lab: [facility] [place] [facility] [address] [facility] [address] Performing Lab: [facility] [place] [facility] [address] [facility] [address] UREA NITROGEN 22 7-25 GLUCOSE 203 H 65-100 SODIUM 138 135-145 POTASSIUM 4.4 3.5-5.0 CHLORIDE 106 100-110 CO2 25 20-30 CREATININE, Serum 1.68 H 0.50-1.40 eGFR(CKD-EPI 2020) 43 L >60 January 18, 2022 [facility] HEMOGLOBIN A1C PANEL Specimen T ype: BLOOD 07:58 AM [facility] [facility] Comment: Testin g performed by NGSP certified [...] Dec 29, 2021 01:34 PM Reporting Lab: [facility] [place] [facility] [address] [facility] [address] Performing Lab: [facility] [place] [facility] [address] [facility] [address] HEMOGLOBIN A1C 10.5 H 4.0-5.6 January 18, 2022 [facility] MICROALBUMIN CREATININE Specime n Type: URINE 07:58 AM [place] [facility] RATIO PANEL No comment enter ed. Ordering Provid er: DELMER STALLINGS Report Released Date/Time: Dec 29, 2021 01:34 PM Reporting Lab: [facility] [place] [facility] [address] [facility] [address] Performing Lab: [facility]N [place] [facility] [address] [facility] [address] MICROALBUMIN/CREATININE RATIO 308.5 H 0-29.9 MICROALBUMIN,QUANTITATIVE 20.7 RR U NAVAIL CREATININE URINE 67.10 January 18, 2022 07:58 [facility] LIPID PANEL FASTING Specimen Type: SERUM AM [place] [facility] No comment enter ed. Ordering Provid er: DELMER STALLINGS Report Released Date/Time: Dec 29, 2021 01:34 PM Reporting Lab: [facility] [place] [facility] [address] [facility] [address] Performing Lab: [facility] [place] [facility] [address] [facility] [address] CHOLESTEROL 192 <7-199 TRIGLYCERIDE 180 H 0-150 LDL calculated 118 0-129 CHOL/HDL 5.1 HDL CHOLESTEROL 38 L 40-60 January 18, 2022 [place] [facility] BASIC METABOLIC PANEL Specimen Type: SERUM 07:58 AM [place] [facility] (fasting) No comment enter ed. Ordering Provid er: HAYLIEDELMER Report Released Date/Time: Dec 29, 2021 01:34 PM Reporting Lab: [place] [facility] [place] [facility] [address] [facility] [address] Performing Lab: [place] [facility] [place] [facility] [address] [facility] [address] UREA NITROGEN 22 7-25 GLUCOSE 207 H 65-100 SODIUM 138 135-145 POTASSIUM 4.5 3.5-5.0 CHLORIDE 105 100-110 CO2 27 20-30 CREATININE, Serum 1.73 H 0.50-1.40 eGFR(CKD-EPI 2020) 42 L >60 Social History: Smoking Status (Most current) and Tobacco Use (All prior to encounter date) This section includes the most current, and the historical, smoking and tobacco-related health factors from the [place] facility where the Encounter took place.Current Smoking Status This section includes the most current smoking, or tobacco-related health factor, from the [place] facility where the Encounter took place. Date/Time Current Smoking Status Comment Facility May 11, 2021 01:18 PM VA-TOBACCO NEVER USED [place] C NTRL [facility]STRN [place] [facility] Encounter Notes: All associated encounter notes This section contains the clinical notes associated to the Encounter. Date/Time Encounter Note(s) Provider Source January 22, 2022 08:53 TELEPHONE ENCOUNTER NOTE: LAZARO DEAL CNTRL WSTRN [facility] TITLE: VISN 1 CCC MED RENEWAL [place] [facility] STANDARD TITLE: TELEPHONE ENCOUNTER NOTE DATE OF NOTE: JANUARY 22, 2022@08:53:20 ENTRY DATE: JANUARY 22, 2022@08:55:50 AUTHOR: LAZARO DEAL EXP COSIGNER: URGENCY: STATUS: COMPLETED The patient, JESSICA BERGER ([id number]) Phone: called the call center. Contact Type of call: PHARMACY. Caller Response: ADM CALL RESOLVED Caller Area: [facility] Provider Info: [facility] ([id number]) PACT: SO PACT 4 (Focus: Primary Care Only) Primary Care Provider: AMBIKA KNIGHT PHONE:[phone] Crane Chaser: RONAN FOX Clinical Associate: JOEY RODRIGUEZ PHON E:[phone] Sizer Machine: RONAN STEVENS PHONE:[phone] Clinical POC: Crane Chaser LIBRADO FOX Administrative POC: Sizer Machine RONAN STEVENS PHONE:[phone] Author: LAAZRO DEAL Comments: Please renew and send via mail INSULIN/GLARGINE Evaluation/Management Code: HC PRO PHONE CALL 5- 10 MIN ([phone]). Starting at: 01/22/2022 @ 8:53:20 AM Ending at: 01/22/2022 @ 8:54:29 AM Length: 1 minutes. Chief Complaint: Not applicable to call. Class Code: Other specified counseling. Patient's Email Address: /jamal/ LAZARO dai 1 AMSA Signed: 01/22/2022 08:55 Receipt Acknowledged By: * AWAITING SIGNATURE * AMBIKA KNIGHT * AWAITING SIGNATURE * RONAN FOX
--- OUTSIDE RECORDS SUMMARY | 2022-07-08 12:36 | XMS_ITS | Encounter Summary ---
:1950 Author Organization [facility] rs Address [address] [place] [address] Support Name Relationship Address Phone CELINE THANIA Botello Unavailable [address] [place] [address] AMELIA BERGER Unavailable [address] [place] [address] Insurance Providers: All historical and current Section [...] AARP INS PRESCRIPT MEDIC Sep 16, PDPIND [id number] [phone] YESSI BERGERZhane PATIENT ION ARE D 2017 [id number] IS MEDICAID MEDICAID [facility] Jul 17, MEDICAI [id number] DAYAMI BERGER PATIENT EALTH 2014 D [id number] 900 IS STAND [place]RISTOPHER MEDICARE MEDICARE PART Sep 16, PART A [id number] [phone] Rosmery BERGER PATIENT (WNR) (M) A 2010A 00 IS MEDICARE MEDICARE PART Sep 16, PART B [id number] [phone] Rosmery BERGER PATIENT (WNR) (M) B 2010 00 IS MEDICARE MEDICARE PART Sep 16, PART A [id number] Rosmery BERGER PATIENT (WNR) (M) A 2010 XH29 2 IS MEDICARE MEDICARE PART Sep 16, PART B [id number] Rosmery BERGER PATIENT (WNR) (M) B 2010 [id number] 2 IS Selected Encounter This section includes the information on record at [place] for the Encounter. Date/Time Encounter Type Encounter Description Reason Provider Source IHE Encounter Template Text not used by [place]
--- OUTSIDE RECORDS SUMMARY | 2022-07-08 12:37 | XMS_ITS | Encounter Summary ---
:1950 Author Organization [facility] of [facility] rs Address [address] [place] [address] Support Name Relationship Address Phone THANIA BERGER Unavailable [address] [place] [address] [place] [address] AMELIA BERGER Unavailable [address] [place] [address] Insurance Providers: All historical and current Section [...] AARP INS PRESCRIPT MEDIC Sep 16, PDPIND [id number] [phone] YESSI BERGERZhane PATIENT ION ARE D 2017 [id number] IS MEDICAID MEDICAID [facility] Jul 17, MEDICAI [id number] DAYAMI BERGER PATIENT EALTH 2014 D [id number] 900 IS STAND [place]HER MEDICARE MEDICARE PART Sep 16, PART A [id number] [phone] Rosmery BERGER PATIENT (WNR) (M) A 2010 00 IS MEDICARE MEDICARE PART Sep 16, PART B [id number] [phone] Rosmery BERGER PATIENT (WNR) (M) B 2010A 00 IS MEDICARE MEDICARE PART Sep 16, PART A [id number] Rosmery BERGER PATIENT (WNR) (M) A 2010 XH29 2 IS MEDICARE MEDICARE PART Sep 16, PART B [id number] Rosmery BERGER PATIENT (WNR) (M) B 2010 XH29 2 IS Selected Encounter This section includes the information on record at [place] for the Encounter. Date/Time Encounter Type Encounter Reason Provider Source Description January 26, 2022 [facility] ICD-10-CM E11.9 ISABEL OCAMPO IST 07:31 AM ASSMT&MGMT 5-10 Type 2 diabetes INE F mellitus without complications with Provider Comments: Diabetes mellitus ([facility] [id number]) IHE Encounter Template Text not used by [place] Assessments - Encounter Diagnoses This section includes the primary and secondary diagnoses documented for the Encounter. Date/Time Primary/Secondary Diagnosis Name Provider Source Diagnosis January 26, 2022 PRIMARY Type 2 diabetes [facility] 07:33 AM mellitus without [facility] (631 GE) complications Plan of Treatment: Future Appointments (+ 6 months) and Future Tests (+/- 45 days) The Plan of Treatment section includes future care activities for the patient from all [place] treatmentfacilities. This section includes future appointments and future orders which are active, pending orscheduled.Future Appointments This section includes appointments that were scheduled to occur 6 months from the date of the Encounter, up to a maximum of 20 appointments. The data comes from all [place] treatment facilities. Appointment Date/Time Appointment Type Appointment Facili ty Name Feb 14, 2022 08:00 AM [facility] Mar 06, 2022 03:00 PM [facility] Mar 09, 2022 12:00 PM [facility] Mar 23, 2022 01:30 PM [facility] Mar 26, 2022 04:00 PM [facility] Apr 02, 2022 04:00 PM [facility] Apr 17, 2022 03:15 PM [facility] May 14, 2022 02:15 PM [facility] Jun 14, 2022 01:30 PM [facility] Jul 04[facility] 2022 03:00 PM [facility] Jul 04, 2022 03:15 PM [facility] Jul 05, 2022 01:30 PM [facility] Active, Pending, and Scheduled Orders This section includes a listing of several types of active, pending, and scheduled orders, including clinic medications orders, diagnostic test orders, procedure orders and consult orders; where the start date of the order is 45 days before the date of the Encounter or 45 days after the date of the Encounter. The data comes from all [place] treatment facilities. Test Date/Time Test Type Test [...] CNTRL [facility]N [place] [facility] [address] [facility] [address] Performing Lab: [facility] [place] [facility] [address] [facility] [address] PO4 3.5 2.5-5.0 January 18, 2022 07:58 [facility] PTH INTACT Specimen Typ e: SERUM AM [place] [facility] No comment enter ed. Ordering Provid er: MELANIA RAMOS Report Released Date/Time: Nov 08, 2021 04:09 PM Reporting Lab: [facility] [place] [facility] [address] [facility] [address] Performing Lab: [facility] [place] [facility] [address] [facility] [address] PTH INTACT 122.6 H 10-65 January 18, 2022 07:58 [facility] MAGNESIUM Specimen Typ e: SERUM AM [place] [facility] No comment enter ed. Ordering Provid er: MELANIA RAMOS Report Released Date/Time: Nov 08, 2021 04:09 PM Reporting Lab: [facility] [place] [facility] [address] [facility] [address] Performing Lab: [facility] [place] [facility] [address] [facility] [address] MAGNESIUM 2.0 1.6-2.6 January 18, 2022 07:58 [facility] [place] CALCIUM S pecimen Type: SERUM AM [facility] No comment enter ed. Ordering Provid er: MELANIA RAMOS Report Released Date/Time: Nov 08, 2021 04:09 PM Reporting Lab: [facility] [place] [facility] [address] [facility] [address] Performing Lab: [facility] [place] [facility] [address] [facility] [address] CALCIUM 9.9 8.5-10.2 January 18, 2022 [facility] ALKALINE PHOSPHATASE Specimen T ype: SERUM 07:58 AM [place] [facility] No comment enter ed. Ordering Provid er: MELANIA RAMOS Report Released Date/Time: Nov 08, 2021 04:09 PM Reporting Lab: [facility] [place] [facility] [address] [facility] [address] Performing Lab: [facility] [place] [facility] [address] [facility] [address] ALKALINE PHOSPHATASE 83 40-150 January 18, 2022 [facility] BASIC METABOLIC PANEL Specimen Type: SERUM 07:58 AM [place] [facility] (non-fasting) No comment enter ed. Ordering Provid er: MELANIA RAMOS Report Released Date/Time: Nov 08, 2021 04:09 PM Reporting Lab: [facility] [place] [facility] [address] [facility] [address] Performing Lab: [facility] [place] [facility] [address] [facility] [address] UREA NITROGEN 22 7-25 GLUCOSE 203 H 65-100 SODIUM 138 135-145 POTASSIUM 4.4 3.5-5.0 CHLORIDE 106 100-110 CO2 25 20-30 CREATININE, Serum 1.68 H 0.50-1.40 eGFR(CKD-EPI 2020) 43 L >60 January 18, 2022 [place] [facility] HEMOGLOBIN A1C PANEL Specimen T ype: BLOOD 07:58 AM [place] [facility] Comment: Testin g performed by NGSP [...] Dec 29, 2021 01:34 PM Reporting Lab: [facility]STRN [place] [facility] [address] [facility] [address] Performing Lab: [facility] [place] [facility] [address] [facility] [address] HEMOGLOBIN A1C 10.5 H 4.0-5.6 January 18, 2022 07:58 [facility] WSTRN LIPID PANEL FASTING Specimen Type: SERUM AM [place] [facility] No comment enter ed. Ordering Provid er: DELMER STALLINGS Report Released Date/Time: Dec 29, 2021 01:34 PM Reporting Lab: [facility]STRN [place] [facility] [address] [facility] [address] Performing Lab: [facility] [place] [facility] [address] [facility] [address] CHOLESTEROL 192 <7-199 TRIGLYCERIDE 180 H 0-150 LDL calculated 118 0-129 CHOL/HDL 5.1 HDL CHOLESTEROL 38 L 40-60 January 18, 2022 [place] [facility] MICROALBUMIN CREATININE Specime n Type: URINE 07:58 AM [place] [facility] RATIO PANEL No comment enter ed. Ordering Provid er: DELMER STALLINGS Report Released Date/Time: Dec 29, 2021 01:34 PM Reporting Lab: [facility]STRN [place] [facility] [address] [facility] [address] Performing [facility] [place] [facility] [address] [facility] [address] MICROALBUMIN/CREATININE RATIO 308.5 H 0-29.9 MICROALBUMIN,QUANTITATIVE 20.7 RR U NAVAIL CREATININE URINE 67.10 January 18, 2022 [facility] BASIC METABOLIC PANEL Specimen Type: SERUM 07:58 AM [facility] (fasting) No comment enter ed. Ordering Provid er: DELMER STALLINGS Report Released Date/Time: Dec 29, 2021 01:34 PM Reporting Lab: [facility] [address] [facility] [address] Performing Lab: [facility] [address] [facility] [address] UREA NITROGEN 22 7-25 GLUCOSE 207 H 65-100 SODIUM 138 135-145 POTASSIUM 4.5 3.5-5.0 CHLORIDE 105 100-110 CO2 27 20-30 CREATININE, Serum 1.73 H 0.50-1.40 eGFR(CKD-EPI 2020) 42 L >60 Encounter Notes: All associated encounter notes This section contains the clinical notes associated to the Encounter. Date/Time Encounter Note(s) Provider Source January 26, 2022 07:31 AM MEDICATION MGT CONSULT: DALE OCAMPO [facility] LOCAL TITLE: CONSULT REPORT/NON FORMULARY PADR ([id number]) STANDARD TITLE: MEDICATION MGT CONSULT DATE OF NOTE: JANUARY 26, 2022@07:31 ENTRY DATE: JANUARY 26, 2022@07:31:46 AUTHOR: DALE OCAMPO EXP COSIGNER: URGENCY: STATUS: COMPLETED The medical record has been reviewed with regard to this restricted drug request. Medication requested: SKIN BARRIER WIPE TORBOT SKIN TAC Medication indication: DM Medical history relevant to this request: Patient approved for Buz, reporting se nsor fell off despite being counseled on proper application. The request is approved - No formulary-preferred alternative Time Spent: 5 min /jamal/ DALE OCAMPO, KhadijahD, [facility] Clinical Gospel Worker Signed: 01/26/2022 07:33
--- OUTSIDE RECORDS SUMMARY | 2022-07-08 12:37 | XMS_ITS | Encounter Summary ---
:1950 Author Organization Department of [facility] rs Address [address] [place] [address] Support Name Relationship Address Phone THANIA BERGER Rosmery [place] [address] CELINEAMELIA Unavailable [address] [place] [address] Insurance Providers: All historical and current Section [...] AARP INS PRESCRIPT MEDIC Sep 16, PDPIND [id number] [phone] YESSI BERGERZhane PATIENT ION ARE D 2017 251 [id number] IS MEDICAID MEDICAID [facility] Jul 17, MEDICAI [id number] [phone] YESSI BERGERZhane PATIENT EALTH 2014 D [id number] IS STAND [place]RISTOPHER MEDICARE MEDICARE PART Sep 16, PART A [id number] [phone] Rosmery BERGER PATIENT (WNR) (M) A 2010 00 IS MEDICARE MEDICARE PART Sep 16, PART B [id number] [phone] Rosmery BERGER PATIENT (WNR) (M) B 2010A 00 IS MEDICARE MEDICARE PART Sep 16, PART B [id number] Rosmery BERGER PATIENT (WNR) (M) B 2010 [id number] 2 IS MEDICARE MEDICARE PART Sep 16, PART A [id number] Rosmery BERGER PATIENT (WNR) (M) A 2010 [id number] 2 IS Selected Encounter This section includes the information on record at [place] for the Encounter. Date/Time Encounter Type Encounter Reason Provider Source Description January 23, 2022 Outpatient TELEPHONE/MEDICI ICD-10-CM E11.8 DELMER STALLINGS 03:00 PM Encounter NE Type 2 diabetes mellitus with unspecified complications with Provider Comments: Type II diabetes mellitus ([facility] [id number]) IHE Encounter Template Text not used by [place] Assessments - Encounter Diagnoses This section includes the primary and secondary diagnoses documented for the Encounter. Date/Time Primary/Secondary Diagnosis Name Provider Source Diagnosis January 23, 2022 PRIMARY Type 2 diabetes [facility] [place] [facility] W[facility] RN 03:00 PM mellitus with [facility] unspecified complications January 23, 2022 SECONDARY Chronic kidney [facility] PM disease, [facility] unspecified January 23, 2022 SECONDARY Essential [facility] 03:00 PM (primary) [facility] hypertension January 23, 2022 SECONDARY Hyperlipidemia, [facility] 03:00 PM unspecified [facility] January 23, 2022 SECOND[facility] PM [facility] Plan of Treatment: Future Appointments (+ 6 months) and Future Tests (+/- 45 days) The Plan of Treatment section includes future care activities for the patient from all [place] treatmentforks community hospitalities. This section includes future appointments and future orders which are active, pending orscheduled.Future Appointments This section includes appointments that were scheduled to occur 6 months from the date of the Encounter, up to a maximum of 20 appointments. The data comes from all [place] treatment facilities. Appointment Date/Time Appointment Type Appointment Facili ty Name Feb 14, 2022 08:00 AM [facility] [place] [facility] Mar 06, 2022 03:00 PM [facility] Mar 09, 2022 12:00 PM [facility] Mar 23, 2022 01:30 PM [facility] Mar 26, 2022 04:00 PM [facility] Apr 02, 2022 04:00 PM [facility] Apr 17, 2022 03:15 PM [facility] May 14, 2022 02:15 PM [facility] Jun 14, 2022 01:30 PM [facility] [place] [place] [facility] Jul 04, 2022 03:00 PM AMBULATORY - MEDICINE [place] [facility] [place] [place] [facility] Jul 04, 2022 03:15 PM AMBULATORY - MEDICINE [place] [facility] [place] [facility] Jul 05, 2022 01:30 PM AMBULATORY - MEDICINE [place] Active, Pending, and Scheduled Orders This section includes a listing of several types of active, pending, and scheduled orders, including clinic medications orders, diagnostic test orders, procedure orders and consult orders; where the start date of the order is 45 days before the date of the Encounter or 45 days after the date of the Encounter. The data comes from all [place] treatment facilities. Test Date/Time Test Type Test Details Facility Name Dec 30, 2021 12:00 Laboratory - BASIC METABOLIC PANEL [place] CNTR L WSTRN AM Chemistry Order (non-fasting) BLOOD [facility] (SST-SERUM) SP Dec 30, 2021 12:00 Laboratory - CBC BLOOD (LAV-BLOOD) [place] [facility] L [facility] AM Chemistry Order SP [facility] February 05, 2022 12:00 Laboratory - MICROALBUMIN CREATININE [place] CN TRL WSTR[facility] AM Chemistry Order [facility]IO [facility]EL [facility] ([facility] SP Lab Results: +/- 30 days of the encounter This section includes the Chemistry and Hematology Lab Results on record with [place] for the patient. Radiology Reports and Pathology Reports are provided separately, in subsequent sections.Lab Results This section contains the Chemistry/Hematology Results that were resulted 30 days before or 30 daysafter the date of the Encounter. Date/Time Source Result Type Result - Unit Interpretation Reference Range Comment January 18, 2022 07:58 AM [place] [facility] [place] PO4 Specimen Type: [facility] No comment enter ed. Ordering Provid er: MELANIA RAMOS Report Released Date/Time: Nov 08, 2021 04:09 PM Reporting Lab: [facility] [place] [facility] [address] [facility] [address] Performing Lab: [facility] [place] [facility] [address] [facility] [address] PO4 3.5 2.5-5.0 January 18, 2022 07:58 [facility] PTH INTACT Specimen Typ e: SERUM AM [place] [facility] No comment enter ed. Ordering Provid er: MELANIA RAMOS Report Released Date/Time: Nov 08, 2021 04:09 PM Reporting Lab: [facility] [place] [facility] [address] [facility] [address] Performing Lab: [facility] [place] [facility] [address] [facility] [address] PTH INTACT 122.6 H 10-65 January 18, 2022 07:58 [facility] [place] CALCIUM S pecimen Type: SERUM AM HCS No comment enter ed. Ordering Provid er: MELANIA RAMOS Report Released Date/Time: Nov 08, 2021 04:09 PM Reporting Lab: [facility] [place] [facility] [address] [facility] [address] Performing Lab: [facility] [place] [facility] [address] [facility] [address] CALCIUM 9.9 8.5-10.2 January 18, 2022 07:58 [facility] MAGNESIUM Specimen Typ e: SERUM AM [facility] No comment enter ed. Ordering Provid er: MELANIA RAMOS Report Released Date/Time: Nov 08, 2021 04:09 PM Reporting Lab: [facility] [place] [facility] [address] [facility] [address] Performing Lab: [facility] [place] [facility] [address] [facility] [address] MAGNESIUM 2.0 1.6-2.6 January 18, 2022 [facility] ALKALINE PHOSPHATASE Specimen T ype: SERUM 07:58 AM [place] [facility] No comment enter ed. Ordering Provid er: MELANIA RAMOS Report Released Date/Time: Nov 08, 2021 04:09 PM Reporting Lab: [facility] [place] [facility] [address] [facility] [address] Performing Lab: [facility] [place] [facility] [address] [facility] [address] ALKALINE PHOSPHATASE 83 40-150 January 18, 2022 [facility] BASIC METABOLIC PANEL Specimen Type: SERUM 07:58 AM [facility] (non-fasting) No comment enter ed. Ordering Provid er: MELANIA RAMOS Report Released Date/Time: Nov 08, 2021 04:09 PM Reporting Lab: [facility] [place] [facility] [address] [facility] [address] Performing Lab: [facility] [place] [facility] [address] [facility] [address] UREA NITROGEN 22 7-25 GLUCOSE 203 H 65-100 SODIUM 138 135-145 POTASSIUM 4.4 3.5-5.0 CHLORIDE 106 100-110 CO2 25 20-30 CREATININE, Serum 1.68 H 0.50-1.40 eGFR(CKD-EPI 2020) 43 L >60 January 18, 2022 [facility] A1C PANEL Specimen T ype: BLOOD 07:58 AM [place] [facility] Comment: Testin g performed by NGSP certified [...] Dec 29, 2021 01:34 PM Reporting Lab: [facility] [place] [facility] [address] [facility] [address] Performing Lab: [facility] [place] [facility] [address] [facility] [address] HEMOGLOBIN A1C 10.5 H 4.0-5.6 January 18, 2022 [facility] W[facility]N MICROALBUMIN CREATININE Specime n Type: URINE 07:58 AM [place] [facility] RATIO PANEL No comment enter ed. Ordering Provid er: DELMER STALLINGS Report Released Date/Time: Dec 29, 2021 01:34 PM Reporting Lab: [facility] [place] [facility] [address] [facility] [address] Performing Lab: [facility] [place] [facility] [address] [facility] [address] MICROALBUMIN/CREATININE RATIO 308.5 H 0-29.9 MICROALBUMIN,QUANTITATIVE 20.7 RR U NAVAIL CREATININE URINE 67.10 January 18, 2022 07:58 [facility] LIPID PANEL FASTING Specimen Type: SERUM AM [facility] No comment enter ed. Ordering Provid er: DELMER STALLINGS Report Released Date/Time: Dec 29, 2021 01:34 PM Reporting Lab: [place] [facility] [place] [facility] [address] [facility] [address] Performing Lab: [place] [facility] [place] [facility] [address] [facility] [address] CHOLESTEROL 192 <7-199 TRIGLYCERIDE 180 H 0-150 LDL calculated 118 0-129 CHOL/HDL 5.1 HDL CHOLESTEROL 38 L 40-60 January 18, 2022 [facility] BASIC METABOLIC PANEL Specimen Type: SERUM 07:58 AM [facility] (fasting) No comment enter ed. Ordering Provid er: DELMER STALLINGS Report Released Date/Time: Dec 29, 2021 01:34 PM Reporting Lab: [facility] [place] [facility] [address] [facility] [address] Performing Lab: [facility] [place] [facility] [address] [facility] [address] UREA NITROGEN 22 7-25 GLUCOSE 207 H [...] NEVER USED [place] C NTRL [facility] [facility] Encounter Notes: All associated encounter notes This section contains the clinical notes associated to the Encounter. Date/Time Encounter Note(s) Provider Source January 23, 2022 03:03 PM PHYSICIAN NOTE: DELMER STALLINGS [place] CN[facility] W STRN LOCAL TITLE: MD BLOSSOM Toro [facility] STANDARD TITLE: PHYSICIAN NOTE DATE OF NOTE: JANUARY 23, 2022@15:03 ENTRY DATE: JANUARY 23, 2022@15:03:47 AUTHOR: DELMER STALLINGS COSIGNER: URGENCY: STATUS: COMPLETED NOTE Has ADDENDA STATUS: UNSIGNED Due to COVID 19, this visit was conducted as a t elephone encounter. CC: Diabetes type 2 with chronic renal disease, HTN, Hyperlipidemia, Obesity HPI: Feels well, loves sensors. One fell off. Recently started using freestyle antoine 2 sensor s. Recent bg elevations. Insulin dose recently inc reased. Son, gdtr, and great gdtr and friend of gdtr li ve with him. Memory change is a barrier. So joins v isit. Medications for diabetes: lantus 72 units daily and novolog 22 units tid. BG They do not upload reader Average 242 7 days MN to 6AM 219 6AM to noon 218 noon to 6PM 221 6 PM to MN 234 TIR above 74% in range 26% below 0% Daily patterns Widest variability are late at ni ght Collection DT Spec HGBA1c 01/18/2022 07:58 BLOOD 10.5 H 10/18/2021 10:04 BLOOD 9.7 H 06/23/2021 10:18 BLOOD 7.4 H 08/08/2020 14:19 BLOOD 8.8 H 12/10/2019 10:08 BLOOD 7.9 H Weight trend: fluctuations, but fairly steady ov er time. Food insecurity no Pattern of eating throughout the day: three and often snacks HS. Physical activity: a little walking, but fatigue d if he does this. Carbohydrate counting: Not counting, has cho est imation sheet Episodes of hypoglycemia: no Hypoglycemia unawar eness: Neuropathy pain: rare mild discomfort Last eye evaluation: Non [facility] every six months, ab out three mos ago Last nephropathy screen MICROALBUMIN January 18, 2022@07:58 URINE mALB/Cr: 308.5 H mg/G 0 - 29.9 FindingsCREATININE-EGFR 01/18/22 07:58 1.68 H foll owed by Nephrology 01/18/22 07:58 1.73 H 11/16/21 14:27 1.89 H Statin therapy: SERUM May 05 Feb 02 Reference 2021 2021 07:58 10:04 CHOL 192 176 mg/dL <7 - 199 TRIG 180 H 179 H mg/dL 0 - 150 HDL 38 L 32 L mg/dL 40 - 60 LDL 118 108 mg/dL 0- 70 CAD: yes On asa: yes and apixaban emergency kit/glucose tabs: glucagon , re newed, and SO knows how to use kit Active problems - Computerized Problem List is t he source for the followin. Cerebellar stroke syndrome 2. Chronic kidney disease 3. Osteoarthritis 4. Computed tomography result abnormal 5. Low back pain 6. Type II diabetes mellitus 7. Essential hypertension 8. Overweight 9. Allergy to peanuts 10. UTI 11. Claudication (SNOMED CT 169965000) 12. Elevated Prostate Specific antigen [psa] 13. Overweight (SNOMED CT 442520262) 14. Low Back Pain * 15. 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 Impotence of organic origin 17. Colorectal Cancer Screening Results Document ed and Reviewed (PV) 18. Simple upper Gastrointestinal Endoscopy 19. Postsurgical Percutaneous Transluminal Coron chet Angioplasty Status 20. Postsurgical Status of Cataract Extraction 21. Diabetes mellitus (SNOMED CT 96033401) 22. MRSA SKIN INFECTION 23. Cocaine abuse, continuous use 24. GERD * 25. Corneal Abrasion 26. Hypertension (SNOMED CT 12021159) 27. Diabetic Neuropathies 28. Onychomycosis * 29. Cataract, PSC/Post Subcapsular 30. Cataract, Cortical (Senile) 31. Background diabetic retinopathy 32. Cyst, ganglion 33. Cervical Radiculopathy 34. Shoulder Pain 35. Hyperlipidemia (SNOMED CT 78491515) 36. Old Myocardial Infarction 37. Depressive Disorder NOS Active Outpatient Medications (including Supplie s): GLUCOSE SENSOR FREESTYLE ANTOINE 2 USE 1 SENSOR DIRECTED ACTIVE EVERY 14 DAYS INSULIN,ASPART 100UN/ML KELLY FLEXPEN 3ML INJECT 20 UNITS ACTIVE (S) SUBCUTANEOUSLY THREE TIMES A DAY INSULIN,GLARGINE 100 UNT/ML 3ML SOLOSTAR INJECT 60 UNITS ACTIVE (S) SUBCUTANEOUSLY ONCE DAILY FOR DIABETES LANCET,SOFTCLIX USE [...] A CTIVE Non-VA ATORVASTATIN CALCIUM 80MG TAB 40 MG BY MO UTH AT ACTIVE BEDTIME Non-VA DOXAZOSIN MESYLATE 2MG TAB 2MG BY MOUTH O NCE DAILY ACTIVE Non-VA DOXAZOSIN MESYLATE 8MG TAB 8 MG BY MOUTH AT BEDTIME ACTIVE Non-VA FEXOFENADINE HCL 60MG TAB 60MG BY MOUTH O NCE DAILY ACTIVE Non-VA FINASTERIDE 5MG TAB 5MG BY MOUTH ONCE MEMO LY ACTIVE Non-VA FUROSEMIDE 20MG TAB 20MG BY MOUTH TWO TONE ES A WEEK ACTIVEverified Non-VA MAGNESIUM OXIDE TAB 400MG BY MOUTH TWICE DAILY ACTIVE Non-VA METOPROLOL TARTRATE 25MG TAB 25MG BY MOUT H TWICE ACTIVE Non-VA MIDODRINE HCL 10MG TAB 10MG BY MOUTH TWIC E DAILY ACTIVE taking 10 mg am and pm, and 5 mg noon Non-VA MIRABEGRON PA-F TAB,SA ? BY MOUTH ONC E DAILY ACTIVE Non-VA PANTOPRAZOLE NA 40MG EC TAB 40MG BY MOUTH EVERY ACTIVE MORNING 30 MINUTES BEFORE BREAKFAST Non-VA POTASSIUM CHLORIDE 10MEQ SA TAB 10MEQ BY MOUTH ONCE ACTIVE DAILY Non-VA VALSARTAN 40MG TAB 40MG BY MOUTH ONCE MEMO LY ACTIVE Non-VA VITAMIN B COMPLEX CAP,ORAL BY MOUTH ON FR IDAY ACTIVE glucagon Vitamin D 1000 units daily SHX: as above ROS: No cough or fever no DALTON PE: affect pleasant appropriate speaking easily in full sentences Medical Decision Making: Diabetes: given fax number so that eye clinic ca n fax report. Discussed that we could consider Ozempic if no DR. Insulin Dose: lantus 68 units daily and novolog 25 units tid. Call if bg remain elevated. Carbohydrate targets 15 gm CHO TID Blood sugar targets 130 premeal and 150-180 aft er meals Hemoglobin A1c Targets 7.5 Obesity He has declined MOVE programs. Due to so me memory loss, it is difficult for him to make dietary changes. ED renewed tadalafil. Reminded of serious/potent ially fatal med interaction Does not have NTG. Hypertension 110/65 Hyperlipidemia Not at goal on high intensity sta tin. Advised change to rosuvastatin, due to renal disease. He agrees. SX nurse, please call rosuvastatin 40 mg daily s cript to [facility] follow up none at this time lab BMP hgba1c next visit Insulin orders updated in cprs F/u three mos Offered FTF or CVT appt. He prefer s CVT Home Telehealth (CCHT) Referral: Patient not a candidate for CCHT Program at thi s time. Reason: sensor Medication Reconciliation: Outpatient: Has the patient been taking medications as docu mented in the EMLR? No: Discrepencies were identified. See below. Essential Medication List for Review used to co mplete this medication reconciliation. INCLUDED IN THIS LIST: Alphabetical list of act joe outpatient prescriptions dispensed from this [facility] (local) an d dispensed from another [place] or [facility] facility (remote) as well as inpatien t [...] with a VA or non-VA provider. /keshawn STALLINGS MD STAFF PHYSICIAN Signed: 01/26/2022 13:41 01/26/2022 ADDENDUM STATUS: COMPLETED 30 min telephone encounter. /keshawn STALLINGS MD STAFF PHYSICIAN Signed: 01/26/2022 13:43 01/30/2022 ADDENDUM STATUS: COMPLETED Eye clinic report received. Mild NPDR OU . Spoke with patient. TC to eye clinic Dr. Sánchez [phone]. Requested note based on this exam as to whether he would agree with treatment with Ozempic. /keshawn STALLINGS MD STAFF PHYSICIAN Signed: 01/30/2022 10:17
--- OUTSIDE RECORDS SUMMARY | 2022-07-08 12:37 | XMS_ITS | Encounter Summary ---
:1950 Author Organization Department of [facility] rs Address [address] [place] [address] Support Name Relationship Address Phone CELINE THANIA Botello Unavailable [address] [place] [address] AMELIA BERGER Unavailable [address] [place] [address] Insurance Providers: All historical and current Section [...] AARP INS PRESCRIPT MEDIC Sep 16, PDPIND [id number] [phone] YESSI BERGERZhane PATIENT ION ARE D 2017 [id number] IS MEDICAID MEDICAID [facility] Jul 17, MEDICAI [id number] [phone] DAYAMI BERGER PATIENT EALTH 2014 D [id number] IS STAND [place]RISTOPHER MEDICARE MEDICARE PART Sep 16, PART A [id number] [phone] Rosmery BERGER PATIENT (WNR) (M) A 2010A 00 IS MEDICARE MEDICARE PART Sep 16, PART B [id number] [phone] Rosmery BERGER PATIENT (WNR) (M) B 2010 00 IS MEDICARE MEDICARE PART Sep 16, PART A [id number] Rosmery BERGER PATIENT (WNR) (M) A 2010 [id number] 2 IS MEDICARE MEDICARE PART Sep 16, PART B [id number] [id number] Rosmery BERGER PATIENT (WNR) (M) B 2010 [id number] 2 IS Selected Encounter This section includes the information on record at [place] for the Encounter. Date/Time Encounter Type Encounter Description Reason Provider Source IHE Encounter Template Text not used by [place]
--- OUTSIDE RECORDS SUMMARY | 2022-07-08 12:38 | XMS_ITS | Encounter Summary ---
:1950 Author Organization Department of [facility] rs Address [address] [place] [address] Support Name Relationship Address Phone CELINEGONZÁLEZTHANIA Rosmery Unavailable [address] [place] [address] [place] [address] CELINEAMELIA Unavailable [address] [place] [address] Insurance Providers: All historical and current Section [...] AARP INS PRESCRIPT MEDIC Sep 16, PDPIND [id number] [phone] YESSI BERGERZhane PATIENT ION ARE D 2017 251 [id number] IS MEDICAID MEDICAID [facility] Jul 17, MEDICAI [id number] DAYAMI BERGER PATIENT EALTH 2014 D [id number] IS STAND CHRISTOPHER MEDICARE MEDICARE PART Sep 16, PART A [id number] [phone] Rosmery BERGER PATIENT (WNR) (M) A 2010 00 IS MEDICARE MEDICARE PART Sep 16, PART B [id number] [phone] Rosmery BERGER PATIENT (WNR) (M) B 2010 00 IS MEDICARE MEDICARE PART Sep 16, PART A [id number] Rosmery BERGER PATIENT (WNR) (M) A 2010 XH29 2 IS MEDICARE MEDICARE PART Sep 16, PART B [id number] Rosmery BERGER PATIENT (WNR) (M) B 2010 XH29 2 IS Selected Encounter This section includes the information on record at [place] for the Encounter. Date/Time Encounter Type Encounter Description Reason Provider Source Oct 23, 2021 12:00 Outpatient Encounter EVENT (HISTORICAL) AM IHE Encounter Template Text not used by [place] Plan of Treatment: Future Appointments (+ 6 months) and Future Tests (+/- 45 days) The Plan of Treatment section includes future care activities for the patient from all [place] [facility]. This section includes future appointments and future orders which are active, pending orscheduled.Future Appointments This section includes appointments that were scheduled to occur 6 months from the date of the Encounter, up to a maximum of 20 appointments. The data comes from all [place] treatment facilities. Appointment Date/Time Appointment Type Appointment Facili ty Name Oct 25, 2021 12:00 PM [facility] [place] [place] [facility] Oct 26, 2021 10:00 AM [facility] [place] [facility] Nov 01, 2021 03:00 PM [facility] Nov 10, 2021 10:00 AM [facility] Nov 13, 2021 09:00 AM [facility] Nov 16, 2021 02:30 PM [facility] Nov 16, 2021 03:00 PM [facility] Dec 21, 2021 03:30 PM [facility] Jan 05, 2022 03:30 PM [facility] [place] [facility] January 23, 2022 03:00 PM [facility] [place] [place] [facility] Feb 14, 2022 08:00 AM [facility] [place] [facility] Mar 06, 2022 03:00 PM [facility] Mar 09, 2022 12:00 PM [facility] Mar 23, 2022 01:30 PM [facility] Mar 26, 2022 04:00 PM [facility] Apr 02, 2022 04:00 PM [facility] Apr 17, 2022 03:15 PM [facility] Lab Results: +/- 30 [...] Interpretation Reference Range Comment Nov 16, 2021 [facility] BASIC METABOLIC PANEL Specimen Type: SERUM 02:27 PM [place] [facility] (non-fasting) No comment enter ed. Ordering Provid er: DELMER STALLINGS Report Released Date/Time: Oct 25, 2021 12:46 PM Reporting Lab: [place] [facility] [place] [facility] [address] [facility] [address] Performing Lab: [place] [facility] [place] [facility] [address] [facility] [address] UREA NITROGEN 27 H 7-25 GLUCOSE 349 H 65-100 SODIUM 135 135-145 POTASSIUM 4.4 3.5-5.0 CHLORIDE 100 100-110 CO2 26 20-30 CREATININE, Serum 1.89 H 0.50-1.40 eGFR (IDMS) 36 L >60 Oct 18, 2021 10:04 AM [place] PSA Specimen Type: SERUM Comment: *BASIC METABOLIC PANEL (fasting) Not Performed: Oct 18, 2021@10:05 b *RIBBON CLEANER Reason: DUP ORDER Ordering Provid er: AMBIKA KNIGHT Report Released Date/Time: May 11, 2021 01:37 PM Reporting Lab: [place] [facility] [place] [facility] [address] [facility] [address] Performing Lab: [place] [facility] [place] [facility] [address] [facility] [address] PSA 1.68 0.00-4.00 Oct 18, 2021 10:04 AM [place] TSH Specimen Type: SERUM Comment: *BASIC METABOLIC PANEL (fasting) Not Performed: Oct 18, 2021@10:05 b *RIBBON CLEANER Reason: DUP ORDER Ordering Provid er: AMBIKA KNIGHT Report Released Date/Time: May 11, 2021 01:37 PM Reporting Lab: [place] [facility] [place] [facility] [address] [facility] [address] Performing Lab: [place] [facility] [place] [facility] [address] [facility] [address] TSH 2.37 0.35-5.00 Oct 18, 2021 [place] [facility] HEMOGLOBIN A1C PANEL Specimen T ype: BLOOD 10:04 AM [facility] Comment: Testin g performed by [...] Jul 24, 2021 04:34 PM Reporting Lab: [facility] [place] [facility] [address] [facility] [address] Performing Lab: [facility] [address] [facility] [address] HEMOGLOBIN A1C 9.7 H 4.0-5.6 Oct 18, 2021 10:04 [facility] LIPID PANEL FASTING Specimen Type: SERUM AM [facility] No comment enter ed. Ordering Provid er: DELMER STALLINGS Report Released Date/Time: Jul 24, 2021 04:34 PM Reporting Lab: [facility] [place] [facility] [address] [facility] [address] Performing Lab: [facility] [address] [facility] [address] CHOLESTEROL 176 <7-199 TRIGLYCERIDE 179 H 0-150 LDL calculated 108 0-129 CHOL/HDL 5.5 HDL CHOLESTEROL 32 L 40-60 Oct 18, 2021 10:04 [facility] ALBUMIN S pecimen Type: SERUM AM [facility] No comment enter ed. Ordering Provid er: MELANIA RAMOS Report Released Date/Time: Jun 28, 2021 09:09 AM Reporting Lab: [facility] [place] [facility] [address] [facility] [address] Performing Lab: [facility] [address] [facility] [address] ALBUMIN 4.0 3.5-5.0 Oct 18, 2021 [facility] VITAMIN D (25-[place]) Specimen Type : SERUM 10:04 AM [place] [facility] No comment enter ed. Ordering Provid er: MELANIA RAMOS Report Released Date/Time: Jun 28, 2021 09:09 AM Reporting Lab: [place] [facility] [place] [facility] [address] [facility] [address] Performing Lab: [place] [facility] [place] [facility] [address] [facility] [address] VITAMIN D (25-[place]) 37 20-50 Oct 18, 2021 10:04 AM [facility] [place] CBC Specimen Type: BLOOD HCS No comment enter ed. Ordering Provid er: MELANIA RAMOS Report Released Date/Time: Jun 28, 2021 09:09 AM Reporting Lab: [place] [facility] [place] [facility] [address] [facility] [address] Performing Lab: [place] [facility] [place] [facility] [address] [facility] [address] WBC 7.69 4.50-11.00 RBC 5.16 4.23-5.66 HGB [...] Lab: [facility] [place] [facility] [address] [facility] [address] Performing Lab: [place] [facility] [place] [facility] [address] [facility] [address] UREA NITROGEN 21 7-25 GLUCOSE 302 H [...] VA-TOBACCO NEVER USED [place] C NTRL WSTRN [facility] Encounter Notes: All associated encounter notes This section contains the clinical notes associated to the Encounter. Date/Time Encounter Note(s) Provider Source Oct 23, 2021 12:00 AM NONVA NOTE: [place] [facility] STRN LOCAL TITLE: NON-VA OUTPATIENT NOTES [facility] STANDARD TITLE: NONVA NOTE DATE OF NOTE: OCT 23, 2021 ENTRY DATE: FEBRUARY 07 022@16:11:45 AUTHOR: JAYJAY VALENTE EXP COSIGNER: URGENCY: STATUS: COMPLETED VistA Imaging - Scanned Document SCANNED DOCUMENT SIGNATURE NOT REQUIRED Electronically Filed: 02/07/2022 by: JAYJAY VALENTE LPN LICENSED PRACTICAL NURSE
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
--- OUTSIDE RECORDS SUMMARY | 2022-07-08 12:39 | XMS_ITS | Encounter Summary ---
:1950 Author Organization Department of [facility] rs Address [address] [place] [id number] Support Name Relationship Address Phone THANIA BERGER Rosmery Unavailable [address] [place] [address] [place] [address] AMELIA BERGER Unavailable [address] [place] [address] Insurance Providers: All historical and current Section [...] AARP INS PRESCRIPT MEDIC Sep 16, PDPIND [id number] [phone] YESSI BERGERZhane PATIENT ION ARE D 2017 [id number] IS MEDICAID MEDICAID [facility] Jul 17, MEDICAI [id number] [phone] DAYAMI BERGER PATIENT EALTH 2014 D [id number] IS [address] [place] MEDICARE MEDICARE PART Sep 16, PART A [id number] [phone] Rosmery BERGER PATIENT (WNR) (M) A 2010 00 IS MEDICARE MEDICARE PART Sep 16, PART B [id number] [phone] Rosmery BERGER PATIENT (WNR) (M) B 2010A 00 IS MEDICARE MEDICARE PART Sep 16, PART B [id number] Rosmery BERGER PATIENT (WNR) (M) B 2010 [id number] 2 IS MEDICARE MEDICARE PART Sep 16, PART A [id number] Rosmery BERGER PATIENT (WNR) (M) A 2010 [id number] 2 IS Selected Encounter This section includes the information on record at [place] for the Encounter. Date/Time Encounter Type Encounter Reason Provider Source Description Mar 23, 2022 OFFICE O/P EST PODIATRY ICD-10-CM GOMEZ SANTORO 01:30 PM LOW 20-29 MIN L02.612 Cutaneous abscess of left foot with Provider Comments: Cutaneous Abscess of left Foot IHE Encounter Template Text not used by [place] Assessments - Encounter Diagnoses This section includes the primary and secondary diagnoses documented for the Encounter. Date/Time Primary/Secondary Diagnosis Name Provider Source Diagnosis Mar 23, 2022 PRIMARY Cutaneous abscess GOMEZ SANTORO ELD 02:35 PM of left foot Mar 23, 2022 SECONDARY Type 2 diabetes w GOMEZ SANTORO ELD 02:35 PM diabetic peripheral angiopath w/o gangrene Plan of Treatment: Future Appointments (+ 6 months) and Future Tests (+/- 45 days) The Plan of Treatment section includes future care activities for the patient from [facility] [place] [facility] This section includes future appointments and future orders which are active, pending orscheduled.Future Appointments This section includes appointments that were scheduled to occur 6 months from the date of the Encounter, up to a maximum of 20 appointments. The data comes from all [facility]. Appointment Date/Time Appointment Type Appointment Facili ty Name Mar 26, 2022 04:00 PM [facility] Apr 02, 2022 04:00 PM [facility] Apr 17, 2022 03:15 PM [facility] May 14, 2022 02:15 PM [facility] Jun 14, 2022 01:30 PM [facility] Jul 04, 2022 03:00 PM [facility] Jul 04, 2022 03:15 PM [facility] Jul 05, 2022 01:30 PM [facility] Sep 05, 2022 03:30 PM [facility] Active, Pending, and Scheduled Orders This section includes a listing of several types of active, pending, and scheduled orders, including clinic medications orders, diagnostic test orders, procedure orders and consult orders; where the start date of the order is 45 days before the date of the Encounter or 45 days after the date of the Encounter. The data comes from all [facility]. Test Date/Time Test Type Test Details Facility Name Apr 28, 2022 12:00 Laboratory - LIPID PANEL FASTING [facility] AM Chemistry Order BLOOD (SST-SERUM) [facility] Apr 28, 2022 12:00 Laboratory - MICROALBUMIN CREATININE [facility] AM Chemistry Order RATIO PANEL URINE [facility] (RANDOM) SP Apr 28, 2022 12:00 Laboratory - BASIC METABOLIC PANEL [facility] AM Chemistry Order (fasting) BLOOD [facility] (SST-SERUM) SP Apr 28, 2022 12:00 Laboratory - HEMOGLOBIN A1C PANEL [facility] AM Chemistry Order BLOOD (LAV-BLOOD) [facility] Social History: Smoking Status (Most current) and Tobacco Use (All prior to encounter date) This section includes the most current, and the historical, smoking and tobacco-related health factors from the [place] facility where the Encounter took place.Current Smoking Status This section includes the most current smoking, or tobacco-related health factor, from the [place] facility where the Encounter took place. Date/Time Current Smoking Status Comment Facility February 03, 2019 10:28 AM [place]-TOBACCO NEVER USED [facility] Tobacco Use History This section includes a history of the smoking, or tobacco- related health factors, that were collected on or before the date of the Encounter. The data comes from the [place] facility where the Encounter took place. Date/Time Smoking Status/Tobacco Use Comment [facility] Jan 13, 2018 09:49 AM LIFETIME NON-TOBACCO USER [place] Jan 04, 2017 10:17 AM LIFETIME NON-TOBACCO USER [place] Dec 23, 2015 08:49 AM LIFETIME NON-TOBACCO USER [place] Nov 27, 2005 02:55 PM LIFETIME NON-TOBACCO USER [place] patient reportssmoking only dafne pickett January 22, 2003 10:42 [address]IME NON-SMOKER [facility] Aug 18, 2001 01:54 PM LIFETIME NON-TOBACCO USER [place] pt states he has never smoked May 14, 2001 02:[address] NON-[facility]MO[facility] Encounter Notes: All associated encounter notes This section contains the clinical notes associated to the Encounter. Date/Time Encounter Note(s) Provider Source Mar 23, 2022 01:58 PM PODIATRY NOTE: GOMEZ SANTORO LOCAL TITLE: PODIATRY NOTE STANDARD TITLE: PODIATRY NOTE DATE OF NOTE: MAR 23, 2022@13:58 ENTRY DATE: MAR 23, 2022@13:58:28 AUTHOR: GOMEZ SANTORO EXP COSIGNER: URGENCY: STATUS: [...] negative. HAS RECEIVED BOTH COVID VACCINE DOSES + BOOSTER AT [facility] *PERFORMED AT CHECK-IN AND REVIEWED BY DR. SANTORO PRIOR TO TREATMENT* LAST SEEN: 03/09/2022 S: Pt. is a 71 yo alert WDWN [facility] MALE who is se en for EMERGENCY continued evaluation & podiatric care for treatment of an abscess medial plantar left hallux HE INDICATES A WHITE RING AROUND THE A NABILA WELL INCREASING DISCOMFORT. There is no history of trauma. There have been no recent changes in the patient's medical condition or medication s upon questioning today. *NOTE: Pt. is at risk of injury with self-care d ue to the presence of TYPE II DM. *DENIES ANY RECENT CHANGES IN MEDS-SEE RECONCILI ATION OERFORMED THIS DATE BELOW DENIES TOBACCO HE RELATES THAT HE HAS ONE MORE DOSE OF ANTIBI OTIC TONIGHT & I RECOMMENDED THAT HE CONTACT HIS PCP ON EO F OR AN ADDITIONAL WEEK'S RENEWAL AND EPOSSIBILITY OF HIS EVALUATION FOR REFERRAL TO [facility] HE HAS HAD HYPERBARIC OXYGEN IN THE PAST FOR OTHER PROBLEM. O: Exam reveals skin color to be WNL, temp is dimin ished warm to cool proximal to distal, text [...] List is t he source for the following: *NOTE: REVIEWED ABOVE NOTING NO CHANGES SINCE LA ST VISIT:. Cataract, PSC/Post *NOTE: SEE PROBLEM LIST TEMPLATE FOR COMPLETE LIST NEEDED. *NOTE: A1c=10.5 (LAST TAKEN: 01/2022) FS= 230AM RISK= 2 HEIGHT: 68 in [172.7 cm] (08/06/2019 09:26) WEIG HT: 234.5 lb [106.6 kg] (09/17/2019 07:55) VASCULAR: DP & PT pulses absent non-palpable nancy ateral. CFT > 3 sec x 10. There is no edema and there are no varices noted . NEUROLOGICAL & MUSCULOSKELETAL: Exams are DEFERR ED BEING non-contributory to the cc . A: Clinical Impression: LESIONPLANTAR MEDIAL LEF T HALLUX HAS RECURRED in the presence of PVD & DM. Class findings have been met in a high risk individual and the systemic condition has resulted in circulato ry impairment & areas of desensitization. P: Treatment consists of I&D OF THE ABSCESS NOTI NG MILD PURULENT EXUDATE AND SEPARATION OF SUPERFICIAL HYPERKERATOSIS WITH A RESIDUAL OPEN LESION THAT IS 1COM IN DIAMETER AND DEEP TO THE DERMIS. SUPERFI CIAL HYPERKERATOSIS WAS DEBRIDED WITH A STERILE SCAL PEL AND TISSUE NIPPER & THE APPLICATION OF POMOGRON , A FOAM APERTURE AND DSD WERE APPLIED AND WAS I NSTRUCTED TO RESUME WITH THE EVAPORATING DRESSING AND I ALSO DISPENSE D A POST OP FLAT SHOE IN AN ATTEMPT TO KEEP PRESSURE OF TH ELEFT HALLUX AND HE WAS WALKING SUCCESSFULLY WITH THE AIDE OF HIS WHILE LEAVING THE CLINIC. Tx. By a n on-professional could be extremely hazardous to the patient's well-being due to the underlying medical condition. RTC 16 WEEKS FOR REGULAR PODIATRIC CARE & 3 DAYS FOR REASSESSMENT OF THE ABSCESS LEFT HALLUX * I DISCUSSED THE FINDINGS & PLAN WITH PATIENT (UN CHANGED SINCE PREVIOUS VISIT) & PATIENT AGREES AND UNDERSTANDS PLAN & NOT IN NEED OF MIRROR HE HAS HOME HEALTH AIDE AND FOOT ARE EXAMINED SEVERAL TIMES A WEEK. Medication Reconciliation: NOT REQUIRED JUST PERFORMED 10 DAYS AGO /jamal/ GOMEZ SANTORO DPM HOMICIDE SQUAD CAPTAIN Signed: 03/23/2022 14:35
--- OUTSIDE RECORDS SUMMARY | 2022-07-08 12:39 | XMS_ITS | Encounter Summary ---
:1950 Author Organization Department of [facility] rs Address [address] [place] [id number] Support Name Relationship Address Phone THANIA BERGER Rosmery Unavailable [address] [place] [address] [place] [address] AMELIA BERGER Unavailable [address] [place] [address] Insurance Providers: All historical and current Section [...] AARP INS PRESCRIPT MEDIC Sep 16, PDPIND [id number] [phone] YESSI BERGERZhane PATIENT ION ARE D 2017 [id number] 9 IS MEDICAID MEDICAID [facility] Jul 17, MEDICAI [id number] [phone] YESSI BERGERZhane PATIENT EALTH 2014 D [id number] IS [place] [place] MEDICARE MEDICARE PART Sep 16, PART A [id number] [phone] Rosmery BERGER PATIENT (WNR) (M) A 2010A 00 IS MEDICARE MEDICARE PART Sep 16, PART B [id number] [phone] Rosmery BERGER PATIENT (WNR) (M) B 2010A 00 IS MEDICARE MEDICARE PART Sep 16, PART B [id number] [id number] Rosmery BERGER PATIENT (WNR) (M) B 2010 [id number] 2 IS MEDICARE MEDICARE PART Sep 16, PART A [id number] [id number] Rosmery BERGER PATIENT (WNR) (M) A 2010 [id number] 2 IS Selected Encounter This section includes the information on record at [place] for the Encounter. Date/Time Encounter Type Encounter Reason Provider Source Description Mar 09, 2022 POSTOP FOLLOW-UP PODIATRY ICD-10-CM GOMEZ SANTORO 12:00 PM VISIT S90.412S Abrasion, left great toe, sequela with Provider Comments: Abrasion, left Great Toe, Sequela IHE Encounter Template Text not used by [place] Assessments - Encounter Diagnoses This section includes the primary and secondary diagnoses documented for the Encounter. Date/Time Primary/Secondary Diagnosis Name Provider Source Diagnosis Mar 09, 2022 PRIMARY Abrasion, GOMEZ Caruso [place] 01:30 PM great toe, sequela Mar 09, 2022 SECONDARY Type 2 diabetes w GOMEZ SANTORO ELD 01:30 PM diabetic peripheral angiopath w/o gangrene Plan of Treatment: Future Appointments (+ 6 months) and Future Tests (+/- 45 days) The Plan of Treatment section includes future care activities for the [facility] This section includes future appointments and future orders which are active, pending orscheduled.Future Appointments This section includes appointments that were scheduled to occur 6 months from the date of the Encounter, up to a maximum of 20 appointments. The data comes from all [place] treatment [facility]. Appointment Date/Time Appointment Type Appointment Facili ty Name Mar 23, 2022 01:30 PM [facility] Mar 26, 2022 04:00 PM [facility] Apr 02, 2022 04:00 PM [facility] Apr 17, 2022 03:15 PM [facility] May 14, 2022 02:15 PM [facility] Jun 14, 2022 01:30 PM [facility] Jul 04, 2022 03:00 PM [facility] Jul 04, 2022 03:15 PM [facility] Jul 05, 2022 01:30 PM [facility] Sep 05, 2022 03:30 PM [facility] Active, Pending, and Scheduled Orders This section includes a listing of several types of active, pending, and scheduled orders, including clinic medications orders, diagnostic test orders, procedure orders and consult orders; where the start date of the order is 45 days before the date of the Encounter or 45 days after the date of the Encounter. The data comes from all [place] treatment facilities. Test Date/Time Test Type Test Details Facility Name February 05, 2022 12:00 Laboratory - MICROALBUMIN CREATININE [facility] AM Chemistry Order RATIO PANEL URINE [facility] (RANDOM) SP Social History: Smoking Status (Most current) and Tobacco Use (All prior to encounter date) This section includes the most current, and the historical, smoking and tobacco-related health factors from the [facility] where the Encounter took place.Current Smoking Status This section includes the most current smoking, or tobacco-related health factor, from the [place] facility where the Encounter took place. Date/Time Current Smoking Status Comment Facility February 03, 2019 10:28 AM [place]-TOBACCO NEVER USED [facility] Tobacco Use History This section includes a history of the smoking, or tobacco- related health factors, that were collected on or before the date of the Encounter. The data comes from the [facility] where the Encounter took place. Date/Time Smoking Status/Tobacco Use Comment [facility] Jan 13, 2018 09:49 AM LIFETIME NON-TOBACCO USER [place] Jan 04, 2017 10:17 AM LIFETIME NON-TOBACCO USER [place] Dec 23, 2015 08:49 AM LIFETIME NON-TOBACCO USER [place] Nov 27, 2005 02:55 PM LIFETIME NON-TOBACCO USER [place] patient reportssmoking only crac zaira pickett January 22, 2003 10:42 AM LIFETIME NON-SMOKER [facility] Aug 18, 2001 01:54 PM LIFETIME NON-TOBACCO USER [place] pt states he has never smoked May 14, 2001 02:23 PM LIFETIME NON-SMOKER [facility] Encounter Notes: All associated encounter notes This section contains the clinical notes associated to the Encounter. Date/Time Encounter Note(s) Provider Source Mar 09, 2022 01:23 PM PODIATRY NOTE: GOMEZ SANTORO [facility] TITLE: PODIATRY NOTE STANDARD TITLE: PODIATRY NOTE DATE OF NOTE: MAR 09, 2022@13:23 ENTRY DATE: MAR 09, 2022@13:23:53 AUTHOR: GOMEZ SANTORO EXP COSIGNER: URGENCY: STATUS: [...] BOTH COVID VACCINE DOSES + BOOSTER AT [facility] *PERFORMED AT CHECK-IN AND REVIEWED BY DR. SANTORO PRIOR TO TREATMENT* LAST SEEN: 03/07/2022 S: Pt. is a 71 yo alert WDWN [facility] MALE who is se en for continued evaluation & podiatric care for treatment of an abscess media l plantar left hallux and a small blister dorsum left hallux. There is no hi story of trauma. There have been no recent changes in the patient's medical condition or medications upon questioning today. *NOTE: Pt. is at risk of inju ry with self-care due to the presence of TYPE II DM. *DENIES ANY RECENT CHANGES IN MEDS-SEE RECONCILI ATION OERFORMED THIS DATE BELOW DENIES TOBACCO O: UPON REMOVAL OF THE DRESSING I APPLIED 3 DAYS AGO I NOTED CLOSURE OF THE ABSCESS AND A NORMAL AREA DORSUM LEFT HALLUX [facility] THAT WAS ADVISED. Exam reveals skin color to be WNL, [...] REVIEWED ABOVE NOTING NO CHANGES SINCE LA VISIT:. Cataract, PSC/Post *NOTE: SEE PROBLEM LIST [...] to the cc . A: Clinical Impression: RESOLVED LESIONS LEFT SINGH LLUX in the presence of PVD & DM. Class findings have been met in a high risk individual and the systemic condition has resulted in circulatory impairment & areas of desensitization. P: Treatment consists of THE APPLICATION OF BACI TRACIN AND A BANDAID TO BOTH AREAS OF TH ELEFT HALLUX AND THEY ARE TO BE DIANNE FREDY AT BEDTIME AND W/C IF IN NEED OF ADDITIONAL ATTENTION ON SATURDAY. HE NO LO NGER NEEDS TO APPLY EVAPORATING DRESSING. Tx. By a non-professional could be extremely hazardous to the patient's well-being due to the underlyin g medical condition. RTC 16 WEEKS FOR REGULAR PODIATROC CARE *REVIEWED HOME FOOT CARE FEET ARE IN EXCELLENT CONDITION AND I PROVIDED HIM WITH WRITTEN RECOMMENDATIONS FOR FOOT CARE TO BE REVIEWED AT HOME (FOOT CARE TIPS). I DISCUSSED THE FINDINGS & PLAN WITH PATIENT (UN CHANGED SINCE PREVIOUS VISIT) & PATIENT AGREES AND UNDERSTANDS PLAN & NOT IN NEED OF MIRROR HE HAS HOME HEALTH AIDE AND FOOT ARE EXAMINED SEVERAL TIMES A WEEK. Medication Reconciliation: NOT REQUIRED JUST PERFORMED 3 DAYS AGO /jamal/ GOMEZ SANTORO DPM MANAGER SAFE Signed: 03/09/2022 13:30
--- OUTSIDE RECORDS SUMMARY | 2022-07-08 12:39 | XMS_ITS | Encounter Summary ---
:1950 Author Organization Department of [facility] rs Address [address] [place] [id number] Support Name Relationship Address Phone THANIA BERGER Unavailable [address] [place] [address] [place] [address] AMELIA BERGER Unavailable [address] [place] [address] Insurance Providers: All historical and current Section [...] AARP INS PRESCRIPT MEDIC Sep 16, PDPIND [id number] [phone] YESSI BERGERZhane PATIENT ION ARE D 2017 [id number] IS MEDICAID MEDICAID [facility] Jul 17, MEDICAI [id number] [phone] DAYAMI BERGER PATIENT EALTH 2014 D [id number] IS [place] MEDICARE MEDICARE PART Sep 16, PART A [id number] [phone] Rosmery BERGER PATIENT (WNR) (M) A 2010 00 IS MEDICARE MEDICARE PART Sep 16, PART B [id number] [phone] Rosmery BERGER PATIENT (WNR) (M) B 2010A 00 IS MEDICARE MEDICARE PART Sep 16, PART A [id number] Rosmery BERGER PATIENT (WNR) (M) A 2010 [id number] 2 IS MEDICARE MEDICARE PART Sep 16, PART B [id number] Rosmery BERGER PATIENT (WNR) (M) B 2010 [id number] 2 IS Selected Encounter This section includes the information on record at PA for the Encounter. Date/Time Encounter Type Encounter Reason Provider Source Description Mar 06, 2022 OFFICE O/P EST PODIATRY ICD-10-CM E11.51 GOMEZ SANTORO 03:00 PM LOW 20-29 MIN Type 2 diabetes w diabetic peripheral angiopath w/o gangrene with Provider Comments: Type 2 Diabetes Mellitus with Diabetic Peripheral Angiopathy without Gangrene IHE Encounter Template Text not used by PA Assessments - Encounter Diagnoses This section includes the primary and secondary diagnoses documented for the Encounter. Date/Time Primary/Secondary Diagnosis Name Provider Source Diagnosis Apr 27, 2022 PRIMARY Type 2 diabetes w GOMEZ SANTORO ELD 10:37 AM diabetic peripheral angiopath w/o gangrene Apr 27, 2022 SECONDARY Cellulitis of left GOMEZ SANTORO IELD 10:37 AM toe Apr 27, 2022 SECONDARY Epidermal GOMEZ SANTORO 10:37 AM thickening, unspecified Apr 27, 2022 SECONDARY Ingrowing nail GOMEZ SANTORO 10:37 AM Plan of Treatment: Future Appointments (+ 6 months) and Future Tests (+/- 45 days) The Plan of Treatment section includes future care activities for the patient from all [facility] This section includes future appointments and future orders which are active, pending orscheduled.Future Appointments This section includes appointments that were scheduled to occur 6 months from the date of the Encounter, up to a maximum of 20 appointments. The data comes from all PA treatment facilities. Appointment Date/Time Appointment Type Appointment Facili ty Name Mar 09, 2022 12:[address] [facility] Mar 23, 2022 01:[address] [facility] Mar 26, 2022 04:[address] [facility] Apr 02, 2022 04:[address] [facility] Apr 17, 2022 03:[address] [facility] May 14, 2022 02:[address] [facility] Jun 14, 2022 01:30 PM [facility] Jul 04, 2022 03:00 PM [facility] Jul 04, 2022 03:15 PM [facility] Jul 05, 2022 01:[address] [facility] Sep 05, 2022 03:[address] [facility] Active, Pending, and Scheduled Orders This section includes a listing of several types of active, pending, and scheduled orders, including clinic medications orders, diagnostic test orders, procedure orders and consult orders; where the start date of the order is 45 days before the date of the Encounter or 45 days after the date of the Encounter. The data comes from all PA treatment facilities. Test Date/Time Test Type Test Details Facility Name February 05, 2022 12:00 Laboratory - MICROALBUMIN CREATININE [facility] CN TRL [facility] AM Chemistry Order RATIO PANEL URINE [facility] ([facility]) SP Social History: Smoking Status (Most current) and Tobacco Use (All prior to encounter date) This section includes the most current, and the historical, smoking and tobacco-related health factors from the PA facility where the Encounter took place.Current Smoking Status This section includes the most current smoking, or tobacco-related health factor, from the PA facility where the Encounter took place. Date/Time Current Smoking Status Comment Facility February 03, 2019 10:28 AM VA-TOBACCO NEVER USED [facility] Tobacco Use History This section includes a history of the smoking, or tobacco- related health factors, that were collected on or before the date of the Encounter. The data comes from the PA facility where the Encounter took place. Date/Time Smoking Status/Tobacco Use Comment [facility] Jan 13, 2018 09:49 AM LIFETIME NON-TOBACCO USER [place] Jan 04, 2017 10:17 AM LIFETIME NON-TOBACCO USER [facility] Dec 23, 2015 08:49 AM LIFETIME NON-TOBACCO USER [facility] Nov 27, 2005 02:55 PM LIFETIME NON-TOBACCO USER [facility] patient reportssmoking only crac zaira pickett January 22, 2003 10:42 AM LIFETIME NON-SMOKER [facility] Aug 18, 2001 01:54 PM LIFETIME NON-TOBACCO USER [place] pt states he has never smoked May 14, 2001 02:23 PM LIFETIME NON-SMOKER [facility] Encounter Notes: All associated encounter notes This section contains the clinical notes associated to the Encounter. Date/Time Encounter Note(s) Provider Source Mar 06, 2022 01:25 PM PODIATRY NOTE: GOMEZ SANTORO LOCAL TITLE: PODIATRY NOTE STANDARD TITLE: PODIATRY NOTE DATE OF NOTE: MAR 06, 2022@13:25 ENTRY DATE: MAR 06, 2022@13:25:05 AUTHOR: GOMEZ SANTORO EXP COSIGNER: URGENCY: STATUS: COMPLETED PODIATRY NOTE Has ADDENDA Coronavirus Disease 2019 (COVID-19) Screen The patient [...] BOTH COVID VACCINE DOSES + BOOSTER AT [facility] *PERFORMED AT CHECK-IN AND REVIEWED BY DR. SANTORO PRIOR TO TREATMENT* LAST SEEN: 11/10/2021 S: Pt. is a 71 yo alert [...] NO CHANGES SINCE VISIT:. Cataract, PSC/Post *NOTE: SEE PROBLEM LIST [...] and noted to be unchanged since previous visit & non-contributory to the cc . *NOTE: YEARLY COMPLETE LE EXAM PERFORMED TODAY-S EE BELOW A: Clinical Impression: Painful onychocryptic na ils as noted above in the presence of PVD & DM. Class findings have been met in a high risk individual and the systemic condition has resulted in circulato ry impairment & areas of desensitization. P: Treatment consists of trimming & reduction of all nails via manual and electric means with excision of offending nail b orders & surgical paring & debridement of all hyperkeratosis UTILIZING A ST ERILE # 10 SCALPEL. Applied ammonium lactate 12% lotion to dry skin. All care rendered without complications & pt. progressing well after podiatric care this date & will be scheduled for periodic care in an attempt to prevent future co mplications due to the underlying medical conditions. Tx. By a non-prof essional could be extremely hazardous to the patient's well-being du e to the underlying medical condition. RTC 16 WEEKS *REVIEWED HOME FOOT CARE FEET ARE IN EXCELLENT CONDITION AND I PROVIDED HIM WITH WRITTEN RECOMMENDATIONS FOR FOOT CARE TO BE REVIEWED AT HOME (FOOT CARE TIPS). *DISCUSSED NEW PROTOCOLS AND CALLED [facility] TODAY FOR RESCHEDULING I DISCUSSED THE FINDINGS & P GABBY WITH PATIENT (UNCHANGED SINCE PREVIOUS VISIT) & PATIENT AGREES AND UNDERSTANDS PLAN & NOT IN N EED OF MIRROR HE HAS HOME HEALTH AIDE AND FOOT ARE EXAMINED SEVERAL TIMES A WEEK. Medication Reconciliation: PERFORMED TODAY-SEE BELOW Outpatient: Has [...] patient: Active Outpatient Medications (including Supplie s): *NOTE: REVIEWED CURRENT MEDS NOTING NO RECEMT CHANGES-SEE MEDS RECONCILIATION TEMPLATE FOR COMPLETE LIST NEEDED. /jamal/ GOMEZ SANTORO DPM PATIENT RELATIONS LIAISON Signed: 03/06/2022 13:56 03/06/2022 ADDENDUM STATUS: COMPLETED *NOTE: DURING TREATMENT WAS CONCERNED WITH HOME CARE INSTRUCTIONS AND INADVERTENTLY SIGNED TOPDAY'S NOTE PRIOR TO THIS ADDENDUM: NOYE: ADDITIONAL DIAGNOSIS WS AN ABSCEE WITH PUR ULENT EXUDATE NOTED MEDIALPLANTAR LET HALLUX. HE STATED THAT HE WAS SEEN FOR RADIOGRAPHS AT ER AND THEY INFORMED HIM OF NO INFECTION PROBABLY IND ICATING NO OSTEOMYELITIS BUT THERE IS A PURULENT EXUDATE NOTED UPON I&D TODAY . HE WAS PLACED MAXIMO ORAL ANTIBIOTIC 4X A DAY FOR 1 WEEK ADDITIONAL CARE CONSISTED OF THE APPLICATION OF A FOAM APERTURE, BACITRACIN MEDIALLY AND XEROFORM FOR DORSUM LEFT HALLUX DUE TO BLISTER TO HOME APPLIED DRESSING AND RESULTANT BLIST ER. I ALSO PROVIDED INSTRUCTIONS FOR AN EVAPORATING DRESSING 4-5X DAILY AND MAY SHOWER BUT MUST DRY IMMEDIATELY AND RESUME SOAKS WHEN DRY. (SEE BELOW FOR INSTRUCTIONS). THEY DISCUSSED GOING TO WOUND CARE AND I SUGGESTED THAT IF THEY ARE MORE COMFORTABLE THERE THAT I HAVE NOOBJECTION BUT SHOULD BE SEEN BEFORE SATURDAY. THEY PREFER TO BE SEEN BY ME AND WILL BE SEENAS AN OVERBOOK ON SATURDAY AT [facility] AND WILL THEN DETERMINE WHETHER OR NOT WOUND CARE IS REQUIRED. ALSO DEBRIDED NAILS 1-2-3-4-5 MARVA LEMUS FOR HIS REGULAR CARE APPOINTMENT /es/ GOMEZ SANTORO DPM PATIENT RELATIONS LIAISON Signed: 03/06/2022 16:30
--- OUTSIDE RECORDS SUMMARY | 2022-07-08 12:40 | XMS_ITS | Encounter Summary ---
:1950 Author Organization Department of [facility] rs Address [address] [place] [id number] Support Name Relationship Address Phone THANIA BERGER Rosmery Unavailable [address] [place] [address] [place] [address] AMELIA BERGER Unavailable [address] [place] [address] Insurance Providers: All historical and current Section [...] AARP INS PRESCRIPT MEDIC Sep 16, PDPIND [id number] [phone] YESSI BERGERZhane PATIENT ION ARE D 2017 251 9 IS MEDICAID MEDICAID [facility] Jul 17, MEDICAI [id number] [phone] YESSI BERGERZhane PATIENT EALTH 2014 D [id number] IS [place] MEDICARE MEDICARE PART Sep 16, PART A [id number] [phone] Rosmery BERGER PATIENT (WNR) (M) A 2010A 00 IS MEDICARE MEDICARE PART Sep 16, PART B [id number] [phone] Rosmery BERGER PATIENT (WNR) (M) B 2010A 00 IS MEDICARE MEDICARE PART Sep 16, PART B [id number] Rosmery BERGER PATIENT (WNR) (M) B 2010 [id number] 2 IS MEDICARE MEDICARE PART Sep 16, PART A [id number] Rosmery BERGER PATIENT (WNR) (M) A 2010 [id number] 2 IS Selected Encounter This section includes the information on record at [place] for the Encounter. Date/Time Encounter Type Encounter Reason Provider Source Description Mar 26, 2022 POSTOP FOLLOW-UP PODIATRY ICD-10-CM GOMEZ SANTORO 04:00 PM VISIT L02.612 Cutaneous abscess of left foot with Provider Comments: Cutaneous Abscess of left Foot IHE Encounter Template Text not used by [place] Assessments - Encounter Diagnoses This section includes the primary and secondary diagnoses documented for the Encounter. Date/Time Primary/Secondary Diagnosis Name Provider Source Diagnosis Mar 26, 2022 PRIMARY Cutaneous GOMEZ SANTORO [place] 04:15 PM abscess of left foot Plan of Treatment: Future Appointments (+ 6 months) and Future Tests (+/- 45 days) The Plan of Treatment section includes future care activities for the patient from all [place] [facility]. This section includes future appointments and future orders which are active, pending orscheduled.Future Appointments This section includes appointments that were scheduled to occur 6 months from the date of the Encounter, up to a maximum of 20 appointments. The data comes from all [facility]. Appointment Date/Time Appointment Type Appointment Facili ty Name Apr 02, 2022 04:00 PM [facility] Apr 17, 2022 03:15 PM [facility] May 14, 2022 02:15 PM [facility] Jun 14, 2022 01:30 PM [facility] Jul 04, 2022 03:00 PM [facility] Jul 04, 2022 03:[address] [facility] MEDICINE [facility] Jul 05, 2022 01:30 PM [facility] Sep 05, 2022 03:30 PM [facility] Active, Pending, and Scheduled Orders This section includes a listing of several types of active, pending, and scheduled orders, including clinic medications orders, diagnostic test orders, procedure orders and consult orders; where the start date of the order is 45 days before the date of the Encounter or 45 days after the date of the Encounter. The data comes from all [facility]. Test Date/Time Test Type Test Details Facility Name Apr 28, 2022 12:00 Laboratory - [facility]IPID [facility]EL [facility] Chemistry Order BLOOD (SST-SERUM) SP [facility] Apr 28, 2022 12:00 Laboratory - BASIC METABOLIC PANEL [facility] AM Chemistry Order (fasting) BLOOD [facility] (SST-SERUM) SP Apr 28, 2022 12:00 Laboratory - MICROALBUMIN CREATININE [facility] CN TRL [facility] AM Chemistry Order RATIO PANEL URINE [facility] ([facility]) Apr 28, 2022 12:00 Laboratory - HEMOGLOBIN A1C PANEL [facility] CNTRL [facility] AM Chemistry Order BLOOD (LAV-BLOOD) [...] Comment Facility February 03, 2019 10:28 AM [place]-TOBACCO NEVER USED [facility] Tobacco Use History This section includes a history of the smoking, or tobacco- related health factors, that were collected on or before the date of the Encounter. The data comes from the [facility] where the Encounter took place. Date/Time Smoking Status/Tobacco Use Comment [facility] Jan 13, 2018 09:49 AM LIFETIME NON-TOBACCO USER [place] Jan 04, 2017 10:17 AM LIFETIME NON-TOBACCO USER [place] Dec 23, 2015 08:49 AM LIFETIME NON-TOBACCO USER [place] Nov 27, 2005 02:55 PM LIFETIME NON-TOBACCO USER [place] patient reportssmoking only dafne pickett January 22, 2003 10:42 AM LIFETIME NON-SMOKER [facility] Aug 18, 2001 01:54 PM LIFETIME NON-TOBACCO USER [place] pt states he has never smoked May 14, 2001 02:23 PM LIFETIME NON-SMOKER [facility] Encounter Notes: All associated encounter notes This section contains the clinical notes associated to the Encounter. Date/Time Encounter Note(s) Provider Source Mar 26, 2022 03:48 PM PODIATRY NOTE: GOMEZ SANTORO LOCAL TITLE: PODIATRY NOTE STANDARD TITLE: PODIATRY NOTE DATE OF NOTE: MAR 26, 2022@15:48 ENTRY DATE: MAR 26, 2022@15:48:06 AUTHOR: GOMEZ SANTORO EXP COSIGNER: URGENCY: STATUS: [...] BOTH COVID VACCINE DOSES + BOOSTER AT [facility] *PERFORMED AT CHECK-IN AND REVIEWED BY DR. SANTORO PRIOR TO TREATMENT* LAST SEEN: 03/09/2022 S: Pt. is a 71 yo alert WDWN CAUC MALE who is se en for EMERGENCY continued evaluation & podiatric care for treatment of an abscess medial plantar left hallux HE WAS SEEN 3 DAYS AGO AND IS IN NEED OF REASSESSMENT. There is no history of trauma. There have been no recent lupis nges in the patient's medical condition or medications upon questioning today. *NOTE: Pt. is at risk of injury with self-care due to the presence of TYP E II DM. *DENIES ANY RECENT CHANGES IN MEDS-SEE RECONCILI ATION OERFORMED THIS DATE BELOW DENIES TOBACCO HE RELATES THAT HE WAS ABLE TO CONTACT OUTSIDE MD WHO RENEWED HIS ORAL ANTIBIOTICS AND IS TAKING 4 DAILY AT PRESENT. O: UPON REMOVAL OF THE DRESSING LEFT HALLUX I NOTED THE WOUND TO BE CLOSED WITH NO RUBOR, EXUDATE, OR PAIN MEDIAL LEFT HALLUX. E xam reveals skin color to be WNL, temp is diminished warm to cool proximal to distal, text has areas of dryness plantar aspect heels bilat. There is abs ence of hair noted. Nails are incurvated with mild pain on palpation. There are no other gross LE changes [...] HT: 234.5 lb [106.6 kg] (09/17/2019 07:55) COMPLETE LE EXAM NOT REQUIRED AT THIS TIME THERE ARE NO CHNAGES IN 3 DAYS. A: Clinical Impression: RESOLVED OR STIL L RESOLVING LESION PLANTAR MEDIAL LEFT HALLUX THAT HAS RECURRED in the presence of PVD & DM. Class findings have been met in a high risk individual and the systemic c ondition has resulted in circulatory impairment & areas of desensitization. P: Treatment consists of THE APPLICATION OF BACI TRACIN & A BANDAID TO BE WORN DURING THE DAY AND LEFT OPEN AT NIGHT. I ALSO DI SPENSED TUBEFOMA ANAD HE IS TO CONTINUE WITH THE WALKING BOOT TO AVOID EXCES SIVE PRESSURE. THEY AR E[facility] NEXT WEEKEND ANAD WILL BESEEN IN1 WEEK AT 4 PM FOR REASSESSMENT.Tx. By a non-professional could be extremely hazardous to the patient's well-being due to the underlying medical condition. RTC 16 WEEKS FOR REGULAR PODIATRIC CARE & 3 DAYS FOR REASSESSMENT OF THE ABSCESS LE FT HALLUX * I DISCUSSED THE FINDINGS & PLAN WITH PATIENT (UN CHANGED SINCE PREVIOUS VISIT) & PATIENT AGREES AND UNDERSTANDS PLAN & NOT IN NEED OF MIRROR HE HAS HOME HEALTH AIDE AND FOOT ARE EXAMINED SEVERAL TIMES A WEEK. Medication Reconciliation: NOT REQUIRED JUST PERFORMED 13 DAYS AGO /jamal/ GOMEZ SANTORO DPM WAGON WASHER Signed: 03/26/2022 16:15
--- OUTSIDE RECORDS SUMMARY | 2022-07-08 12:40 | XMS_ITS | Encounter Summary ---
:1950 Author Organization Department of [facility] rs Address [address] [place] [id number] Support Name Relationship Address Phone CELINEGONZÁLEZTHANIA Rosmery Unavailable [address] [place] [address] [place] [address] CELINE AMELIA Unavailable [address] [place] [address] Insurance Providers: All historical and current Section [...] AARP INS PRESCRIPT MEDIC Sep 16, PDPIND [id number] [phone] YESSI BERGERZhane PATIENT ION ARE D 2017 [id number] IS MEDICAID MEDICAID [facility] Jul 17, MEDICAI [id number] [phone] DAYAMI BERGER PATIENT EALTH 2014 D [id number] IS STAND [place]RISTOPHER MEDICARE MEDICARE PART Sep 16, PART A [id number] [phone] Rosmery BERGER PATIENT (WNR) (M) A 2010 00 IS MEDICARE MEDICARE PART Sep 16, PART B [id number] [phone] Rosmery BERGER PATIENT (WNR) (M) B 2010 00 IS MEDICARE MEDICARE PART Sep 16, PART A [id number] Rosmery BERGER PATIENT (WNR) (M) A 2010 XH29 2 IS MEDICARE MEDICARE PART Sep 16, PART B [id number] Rosmery BERGER PATIENT (WNR) (M) B 2010 XH29 2 IS Selected Encounter This section includes the information on record at [place] for the Encounter. Date/Time Encounter Type Encounter Description Reason Provider Source February 06, 2022 12:00 Outpatient Encounter EVENT (HISTORICAL) AM IHE Encounter Template Text not used by [place] Plan of Treatment: Future Appointments (+ 6 months) and Future Tests (+/- 45 days) The Plan of Treatment section includes future care activities for the patient from all [place] [facility]. This section includes future appointments and future orders which are active, pending orscheduled.Future Appointments This section includes appointments that were scheduled to occur 6 months from the date of the Encounter, up to a maximum of 20 appointments. The data comes from all [facility]. Appointment Date/Time Appointment Type Appointment Facili ty Name Feb 14, 2022 08:00 AM [facility] MEDICINE [facility] Mar 06, 2022 03:00 PM [facility] Mar 09, 2022 12:00 PM [facility] Mar 23, 2022 01:30 PM [facility] Mar 26, 2022 04:00 PM [facility] Apr 02, 2022 04:00 PM [facility] Apr 17, 2022 03:15 PM [facility] May 14, 2022 02:15 PM [facility] Jun 14, 2022 01:30 PM [facility] Jul 04, 2022 03:00 PM [facility] Jul 04, 2022 03:15 PM [facility] Jul 05, 2022 01:30 PM [facility] Active, Pending, and Scheduled Orders [...] from all [facility]. Test Date/Time Test Type Test Details Facility Name Dec 30, 2021 12:00 Laboratory - BASIC METABOLIC PANEL [facility] AM Chemistry Order (non-fasting) BLOOD [facility] (SST-SERUM) Dec 30, 2021 12:00 Laboratory - CBC BLOOD (LAV-BLOOD) [facility] AM Chemistry Order SP [facility] February [...] HCS [address] [facility] [address] Performing Lab: [facility] [place] [facility] [address] [facility] [address] MAGNESIUM 2.0 1.6-2.6 January 18, 2022 07:58 [facility] PTH INTACT Specimen Typ e: SERUM AM [facility] No comment enter ed. Ordering Provid er: MELANIA RAMOS Report Released Date/Time: Nov 08, 2021 04:09 PM Reporting Lab: [facility] [place] [facility] [address] [facility] [address] Performing Lab: [facility] [place] [facility] [address] [facility] [id number] PTH INTACT 122.6 H 10-65 January 18, 2022 07:58 [facility] [place] CALCIUM S pecimen Type: SERUM AM HCS No comment enter ed. Ordering Provid er: MELANIA RAMOS Report Released Date/Time: Nov 08, 2021 04:09 PM Reporting Lab: [facility] [place] [facility] [address] [facility] [address] Performing Lab: [facility] [place] [facility] [address] [facility] [address] CALCIUM 9.9 8.5-10.2 January 18, 2022 07:58 AM [facility] [place] PO4 Specimen Type: SERUM HCS No comment enter ed. Ordering Provid er: MELANIA RAMOS Report Released Date/Time: Nov 08, 2021 04:09 PM Reporting Lab: [facility] [place] [facility] [address] [facility] [address] Performing Lab: [facility] [place] [facility] [address] [facility] [address] PO4 3.5 2.5-5.0 January 18, 2022 [facility] ALKALINE PHOSPHATASE Specimen T ype: SERUM 07:58 AM [facility] No comment enter ed. Ordering Provid er: MELANIA RAMOS Report Released Date/Time: Nov 08, 2021 04:09 PM Reporting Lab: [facility] [place] [facility] [address] [facility] [address] Performing Lab: [facility] [place] [facility] [address] [facility] [address] ALKALINE PHOSPHATASE 83 40-150 January 18, 2022 [facility] BASIC METABOLIC PANEL Specimen Type: SERUM 07:58 AM [facility] (non-fasting) No comment enter ed. Ordering Provid er: MELANIA RAMOS Report Released Date/Time: Nov 08, 2021 04:09 PM Reporting Lab: [facility] [place] [facility] [address] [facility] [address] Performing Lab: [facility] [place] [facility] [address] [facility] [address] UREA NITROGEN 22 7-25 GLUCOSE 203 H [...] Dec 29, 2021 01:34 PM Reporting Lab: [facility] [place] [facility] [address] [facility] [address] [facility]: [facility] [place] [facility] [address] [facility] [address] HEMOGLOBIN A1C 10.5 H 4.0-5.6 January 18, 2022 [facility] MICROALBUMIN CREATININE Specime n Type: URINE 07:58 AM [facility] RATIO PANEL No comment enter ed. Ordering Provid er: DELMER STALLINGS Report Released Date/Time: Dec 29, 2021 01:34 PM Reporting [facility] [place] [facility] [address] [facility] [address] Per[facility]: [facility] [place] [facility] [address] [facility] [address] MICROALBUMIN/CREATININE RATIO 308.5 H 0-29.9 MICROALBUMIN,QUANTITATIVE 20.7 RR U NAVAIL CREATININE URINE 67.10 January 18, 2022 07:58 [facility] LIPID PANEL FASTING Specimen Type: SERUM AM [facility] No comment enter ed. Ordering Provid er: DELMER STALLINGS Report Released Date/Time: Dec 29, 2021 01:34 PM Reporting [facility] [place] [facility] [address] [facility] [address] Performing Lab: [facility] [place] [facility] [address] [facility] [address] CHOLESTEROL 192 <7-199 TRIGLYCERIDE 180 H 0-150 LDL calculated 118 0-129 CHOL/HDL 5.1 HDL CHOLESTEROL 38 L 40-60 January 18, 2022 [facility] BASIC METABOLIC PANEL Specimen Type: SERUM 07:58 AM [facility] [facility] (fasting) No comment enter ed. Ordering Provid er: DELMER STALLINGS Report Released Date/Time: Dec 29, 2021 01:34 PM Reporting Lab: [place] [facility] [facility] [address] [facility] [address] Performing Lab: [place] [facility] [address] [facility] [address] UREA NITROGEN 22 7-25 GLUCOSE 207 H 65-100 SODIUM 138 135-145 POTASSIUM 4.5 3.5-5.0 CHLORIDE 105 100-110 CO2 27 20-30 CREATININE, Serum 1.73 H 0.50-1.40 eGFR(CKD-EPI 2020) 42 L >60 Social History: Smoking Status (Most current) and Tobacco Use (All prior to encounter date) This section includes the most current, and the historical, smoking and tobacco-related health factors from the [place] facility where the Encounter took place.Current Smoking Status This section includes the most current smoking, or tobacco-related health factor, from the [place] facility where the Encounter took place. Date/Time Current Smoking Status Comment Facility May 11, 2021 01:18 PM VA-TOBACCO NEVER USED [facility] NTRL [facility] Encounter Notes: All associated encounter notes This section contains the clinical notes associated to the Encounter. Date/Time Encounter Note(s) Provider Source February 06, 2022 12:00 AM NONVA NOTE: [facility] LOCAL TITLE: NON-VA OUTPATIENT NOTES [facility] STANDARD TITLE: NONVA NOTE DATE OF NOTE: FEBRUARY 06, 2022 ENTRY DATE: APR 02 022@10:13:23 AUTHOR: VIANEY OTOOLE COSIGNER: URGENCY: STATUS: COMPLETED VistA Imaging - Scanned Document SCANNED DOCUMENT SIGNATURE NOT REQUIRED Electronically Filed: 04/02/2022 by: ENA OTOOLE Parachute Cushion Installer
[2022-07-08 12:41] LABS: Lactic Acid 1.2 mmol/L (0.5-2.0)
--- OUTSIDE RECORDS SUMMARY | 2022-07-08 12:41 | XMS_ITS | Encounter Summary ---
:1950 Author Organization Department of [facility] rs Address [address] [place] [address] Support Name Relationship Address Phone THANIA BERGER Unavailable [address] [place] [address] [place] [address] AMELIA BERGER Unavailable [address] [place] [address] Insurance Providers: All historical and current Section [...] AARP INS PRESCRIPT MEDIC Sep 16, PDPIND [id number] [phone] YESSI BERGERZhane PATIENT ION ARE D 2017 251 9 IS MEDICAID MEDICAID [facility] Jul 17, MEDICAI [id number] [phone] DAYAMI BERGER PATIENT EALTH 2014 D [id number] 900 IS STAND [place]RISTOPHER MEDICARE MEDICARE PART Sep 16, PART A [id number] [phone] Rosmery BERGER PATIENT (WNR) (M) A 2010 00 IS MEDICARE MEDICARE PART Sep 16, PART B [id number] [phone] Rosmery BERGER PATIENT (WNR) (M) B 2010A 00 IS MEDICARE MEDICARE PART Sep 16, PART A [id number] Rosmery BERGER PATIENT (WNR) (M) A 2010 XH29 2 IS MEDICARE MEDICARE PART Sep 16, PART B [id number] [id number] Rosmery BERGER PATIENT (WNR) (M) B 2010 XH29 2 IS Selected Encounter This section includes the information on record at [place] for the Encounter. Date/Time Encounter Type Encounter Reason Provider Source Description Apr 02, 2022 OFFICE O/P EST PODIATRY ICD-10-CM L84 GOMEZ SANTORO 04:00 PM LOW 20-29 MIN Corns and callosities with Provider Comments: Corns and callosities IHE Encounter Template Text not used by [place] Assessments - Encounter Diagnoses This section includes the primary and secondary diagnoses documented for the Encounter. Date/Time Primary/Secondary Diagnosis Name Provider Source Diagnosis Apr 02, 2022 PRIMARY Enmanuel and GOMEZ SANTORO LEJUNIOR 04:22 PM callosities Apr 02, 2022 SECONDARY Type 2 diabetes w GOMEZ SANTORO ELD 04:22 PM diabetic peripheral angiopath w/o gangrene Plan of Treatment: Future Appointments (+ 6 months) and Future Tests (+/- 45 days) The Plan of Treatment section includes future care activities for the patient from all [place] [facility] This section includes future appointments and future orders which are active, pending orscheduled.Future Appointments This section includes appointments that were scheduled to occur 6 months from the date of the Encounter, up to a maximum of 20 appointments. The data comes from all [place] [facility]. Appointment Date/Time Appointment Type Appointment Facili ty Name Apr 17, 2022 03:15 PM [facility] May 14, 2022 02:15 PM [facility] Jun 14, 2022 01:30 PM [facility] Jul 04, 2022 03[facility] Jul 04, 2022 03:15 [facility] Jul 05, 2022 01:30 PM [facility] Sep 05, 2022 03:30 PM [facility] Oct 03, 2022 03:00 PM [facility] Active, Pending, and Scheduled Orders This section includes a listing of several types of active, pending, and scheduled orders, including clinic medications orders, diagnostic test orders, procedure orders and consult orders; where the start date of the order is 45 days before the date of the Encounter or 45 days after the date of the Encounter. The data comes from all [place] treatment [facility]. Test Date/Time Test Type Test Details Facility Name Apr 28, 2022 12:00 Laboratory - LIPID PANEL FASTING [facility] AM Chemistry Order BLOOD (SST-SERUM) [facility] Apr 28, 2022 12:00 Laboratory - MICROALBUMIN CREATININE [facility] AM Chemistry Order RATIO PANEL URINE [facility] [facility] (RANDOM) SP Apr 28, 2022 12:00 Laboratory - BASIC METABOLIC PANEL [facility] AM Chemistry Order (fasting) BLOOD [facility] (SST-SERUM) SP Apr 28, 2022 12:00 Laboratory - HEMOGLOBIN A1C PANEL [facility] AM Chemistry Order BLOOD (LAV-BLOOD) [facility] Social History: Smoking Status (Most current) and Tobacco Use (All prior to encounter date) This section includes the most current, and the historical, smoking and tobacco-related health factors from the [place] facility where the Encounter took place.Current Smoking Status This section includes the most current smoking, or tobacco-related health factor, from the [place] facility where the Encounter took place. Date/Time Current Smoking Status Comment Facility February 03, 2019 10:28 AM [place]-TOBACCO NEVER USED [facility] Tobacco Use History This section includes a history of the smoking, or tobacco- related health factors, that were collected on or before the date of the Encounter. The data comes from the [place] facility where the Encounter took place. Date/Time Smoking Status/Tobacco Use Comment [facility] Jan 13, 2018 09:49 AM LIFETIME NON-TOBACCO USER [facility] Jan 04, 2017 10:17 AM LIFETIME NON-TOBACCO USER [facility] Dec 23, 2015 08:49 AM LIFETIME NON-TOBACCO USER [facility] Nov 27, 2005 02:55 PM LIFETIME NON-TOBACCO USER [facility] patient reportssmoking only dafne pickett January 22, 2003 10:42 AM LIFETIME NON-SMOKER [facility] Aug 18, 2001 01:54 PM LIFETIME NON-TOBACCO USER LEJUNIOR pt states he has never smoked May 14, 2001 02:23 PM LIFETIME NON-SMOKER [facility] Encounter Notes: All associated encounter notes This section contains the clinical notes associated to the Encounter. Date/Time Encounter Note(s) Provider Source Apr 02, 2022 04:16 PM PODIATRY NOTE: GOMEZ SANTORO LOCAL TITLE: PODIATRY NOTE STANDARD TITLE: PODIATRY NOTE DATE OF NOTE: APR 02, 2022@16:16 ENTRY DATE: APR 02, 2022@16:16:54 AUTHOR: GOMEZ SANTORO EXP COSIGNER: URGENCY: STATUS: [...] BOTH COVID VACCINE DOSES + BOOSTER AT [facility] *PERFORMED AT CHECK-IN AND REVIEWED BY DR. SANTORO PRIOR TO TREATMENT* LAST SEEN: 03/26/2022 S: Pt. is a 71 yo alert WDWN CAUC MALE who is se en for EMERGENCY continued evaluation & podiatric care for treatment of an abscess medial plantar left hallux HE WAS SEEN 7 DAYS AGO AND IS IN NEED OF [...] CLOSED WITH NO RUBOR, EXUDATE, OR PAIN M EDIAL LEFT HALLUX AND SUFFICIENT SUPERFICIAL TISSUE TO REMAIN CLOSED. HE HAS BEEN UTILIZNG THE POST- OP WALKING SHOE & TUBEFOAM WELL. Exam reveals skin color to be WNL, temp is diminished warm to cool proximal to distal, text has areas of dryness plantar aspect heels bilat. There is absence of hair noted. Nails are incurvated w ith mild pain on palpation. There are no [...] THIS TIME THERE ARE NO CHNAGES IN 7 DAYS. A: Clinical Impression: RESOLVED LESION PLANTAR MEDIAL LEFT HALLUX THAT HAS RECURRED in the presence of PVD & DM. Class find ings have been met in a high risk individual and the systemic condition has r esulted in circulatory impairment & areas of desensitization. P: Treatment consists of MIL D DEBRIDEMENT OF THE SUPERFICIAL HYPERKERATOSIS AND NOTING MORE NORMAL SKIN WITH NO EVIDENCE OF ABSCESS OR OPEN LESION AT THIS TIME. Tx. By a non-professional could be extremely haz ardous to the patient's well- being due to the underlying medical condition. R TC 16 WEEKS FOR REGULAR PODIATRIC CARE & W/C I FIN NEED OF URGENT CARE P RIOR TO NEXT REGULAR VISIT, I HAVE SUGGESTED THAT HE CONTINUE TO MINIMIZE WEIG HT BEARIUNG, TO CONTINUE WITH THE POST-OP SHYANN AND DISPENSED ADDITIONAL TUBEFOA M AND DISPLAYED HOW TO CUT IN ORDER TO PROVIDE MAXIMUM COMFORT AT THE SITE. * I DISCUSSED THE FINDINGS & PLAN WITH PATIENT (UN CHANGED SINCE PREVIOUS VISIT) & PATIENT AGREES AND UNDERSTANDS PLAN & NOT IN NEED OF MIRROR HE HAS HOME HEALTH AIDE AND FOOT ARE EXAMINED SEVERAL TIMES A WEEK. Medication Reconciliation: NOT REQUIRED JUST PERFORMED 13 DAYS AGO /jamal/ GOMEZ SANTORO DPM JUNIOR ACCOUNT MANAGER Signed: 04/02/2022 16:22
--- OUTSIDE RECORDS SUMMARY | 2022-07-08 12:41 | XMS_ITS ---
:1950 Author Organization Department of [facility] rs Address [address] [place] [address] Support Name Relationship Address Phone CELINEGONZÁLEZTHANIA Rosmery Unavailable [address] [place] [address] [place] [address] CELINEAMELIA Unavailable [address] [place] [address] Insurance Providers: All historical and current Section [...] AARP INS PRESCRIPT MEDIC Sep 16, PDPIND [id number] [phone] YESSI BERGERZhane PATIENT ION ARE D 2017 [id number] 9 IS MEDICAID MEDICAID [facility] Jul 17, MEDICAI [id number] [phone] DAYAMI BERGER PATIENT EALTH 2014 D [id number] IS STAND [place]RISTOPHER MEDICARE MEDICARE PART Sep 16, PART A [id number] [phone] Rosmery BERGER PATIENT (WNR) (M) A 2010 00 IS MEDICARE MEDICARE PART Sep 16, PART B [id number] [phone] Rosmery BERGER PATIENT (WNR) (M) B 2010 00 IS MEDICARE MEDICARE PART Sep 16, PART A [id number] Rosmery BERGER PATIENT (WNR) (M) A 2010 XH29 2 IS MEDICARE MEDICARE PART Sep 16, PART B [id number] Rosmery BERGER PATIENT (WNR) (M) B 2010 XH29 2 IS Selected Encounter This section includes the information on record at [place] for the Encounter. Date/Time Encounter Type Encounter Description Reason Provider Source Apr 17, 2022 03:18 Outpatient Encounter PRIMARY CARE/MEDICINE PM IHE Encounter Template Text not used by [place] Plan of Treatment: Future Appointments (+ 6 months) and Future Tests (+/- 45 days) The Plan of Treatment section includes future care activities for the patient from all [place] [facility]. This section includes future appointments and future orders which are active, pending orscheduled.Future Appointments This section includes appointments that were scheduled to occur 6 months from the date of the Encounter, up to a maximum of 20 appointments. The data comes from all [facility]. Appointment Date/Time Appointment Type Appointment Facili ty Name May 14, 2022 02:15 PM AMBULATORY [facility] Jun 14, 2022 01:30 PM [facility] Jul 04, 2022 03:00 PM [facility] Jul 04, 2022 03:15 PM [facility] Jul 05, 2022 01:30 PM [facility] Sep 05, 2022 03:30 PM [facility] Oct 03, 2022 03:00 PM [facility] Oct 10, 2022 03:00 PM [facility] Active, Pending, and Scheduled Orders This section includes a listing of several types of active, pending, and scheduled orders, including clinic medications orders, diagnostic test orders, procedure orders and consult orders; where the start date of the order is 45 days before the date of the Encounter or 45 days after the date of the Encounter. The data comes from all [facility]. Test Date/Time Test Type Test Details Facility Name Apr 28, 2022 12:00 Laboratory - LIPID PANEL FASTING [place] [facility] AM Chemistry Order BLOOD (SST-SERUM) [place] [facility] Apr 28, 2022 12:00 Laboratory - MICROALBUMIN CREATININE [facility] TRL [facility] AM Chemistry Order RATIO PANEL URINE [place] S (RANDOM) SP Apr 28, 2022 12:00 Laboratory - BASIC METABOLIC PANEL [place] [facility] AM Chemistry Order (fasting) BLOOD [facility] (SST-SERUM) Apr 28, 2022 12:00 Laboratory - HEMOGLOBIN A1C PANEL [place] [facility] AM Chemistry Order BLOOD (LAV-BLOOD) [place] [facility] Social History: Smoking Status (Most [...] NEVER USED [facility] [place] [facility] Encounter Notes: All associated encounter notes This section contains the clinical notes associated to the Encounter. Date/Time Encounter Note(s) Provider Source Apr 17, 2022 03:18 PM PRIMARY CARE NOTE: RIGOBERTO PANTOJA LOCAL TITLE: WALK-IN NOTE PRIMARY CARE (T) STANDARD TITLE: PRIMARY CARE NOTE DATE OF NOTE: APR 17, 2022@15:18 ENTRY DATE: APR 17, 2022@15:18:32 AUTHOR: RIGOBERTO PANTOJA EXP COSIGNER: URGENCY: STATUS: COMPLETED <====Click to Start Advanced Medical Support presents to the Primary Care clinic with the following request: [ ]Medication Renewal/Refill [ ]Consultation with Team RN [ ]Symptoms [ X ]Other exam for toe on left foot The [facility] states they are: [ X ]Waiting [ ]Not Waiting Yes Walk in visit scheduled with PACT Nurse [ X ] At this encounter the [facility]'s demographi cs were verified. [ X ] At this encounter the 's Insurance information was verified. [ X ] At this encounter the below scheduled visi ts for the were discussed and appointment reminder card wa s offered. 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 Let Pact rn and sick rn know. /jamal/ RIGOBERTO TRUONG Signed: 04/17/2022 15:20 Receipt Acknowledged By: * AWAITING SIGNATURE * JOSÉ HARRISON * AWAITING SIGNATURE * RONAN FOX
--- OUTSIDE RECORDS SUMMARY | 2022-07-08 12:42 | XMS_ITS | Encounter Summary ---
:1950 Author Organization Department of [facility] rs Address [address] [place] [address] Support Name Relationship Address Phone THANIA BERGER Rosmery Unavailable [address] [place] [address] [place] [address] AMELIA BERGER Unavailable [address] [place] [address] Insurance Providers: All historical and current Section [...] AARP INS PRESCRIPT MEDIC Sep 16, PDPIND [id number] [phone] CELINE DAYAMI PATIENT ION ARE D 2017 [id number] IS MEDICAID MEDICAID [facility] Jul 17, MEDICAI [id number] [phone] CELINE DAYAMI PATIENT EALTH 2014 D [id number] IS STAND [place]RISTOPHER MEDICARE MEDICARE PART Sep 16, PART A [id number] [phone] Rosmery BERGER PATIENT (WNR) (M) A 2010 00 IS MEDICARE MEDICARE PART Sep 16, PART B [id number] [phone] Rosmery BERGER PATIENT (WNR) (M) B 2010 00 IS MEDICARE MEDICARE PART Sep 16, PART A [id number] Rosmery BERGER PATIENT (WNR) (M) A 2010 [id number] 2 IS MEDICARE MEDICARE PART Sep 16, PART B [id number] Rosmery BERGER PATIENT (WNR) (M) B 2010 [id number] 2 IS Selected Encounter This section includes the information on record at [place] for the Encounter. Date/Time Encounter Type Encounter Reason Provider Source Description Apr 17, 2022 OFFICE O/P EST PRIMARY ICD-10-CM BIGG FOX 03:15 PM MINIMAL [facility]/MEDICINE M79.675 Pain WONG in left toe(s) with Provider Comments: Pain in left Toe(s) IHE Encounter Template Text not used by [place] Assessments - Encounter Diagnoses This section includes the primary and secondary diagnoses documented for the Encounter. Date/Time Primary/Secondary Diagnosis Name Provider Source Diagnosis Apr 19, 2022 PRIMARY Pain in left LISA FOX [place] 03:01 PM toe(s) LLE Plan of Treatment: Future Appointments (+ 6 months) and Future Tests (+/- 45 days) The Plan of Treatment section includes future care activities for the patient from all [place] [facility]. This section includes future appointments and future orders which are active, pending orscheduled.Future Appointments This section includes appointments that were scheduled to occur 6 months from the date of the Encounter, up to a maximum of 20 appointments. The data comes from all [facility]. Appointment Date/Time Appointment Type Appointment Facili ty Name May 14, 2022 02:15 PM [facility] MEDICINE [place] Jun 14, 2022 01:30 PM AMBULATORY MEDICINE [facility] Jul 04, 2022 03:00 PM AMBULATORY MEDICINE [facility] Jul 04, 2022 03:15 PM AMBULATORY MEDICINE [facility] Jul 05, 2022 01:30 PM [facility] Sep 05, 2022 03:30 PM [facility] Oct 03, 2022 03:00 PM [facility] Oct 10, 2022 03:00 PM AMBULATORY MEDICINE [facility] Active, Pending, and Scheduled Orders This section includes a listing of several types of active, pending, and scheduled orders, including clinic medications orders, diagnostic test orders, procedure orders and consult orders; where the start date of the order is 45 days before the date of the Encounter or 45 days after the date of the Encounter. The data comes from all [facility]. Test Date/Time Test Type Test Details Facility Name Apr 28, 2022 12:00 Laboratory - LIPID PANEL [facility] Chemistry Order BLOOD (SST-SERUM) [facility] Apr 28, 2022 12:00 Laboratory - MICROALBUMIN CREATININE [place] [facility] TRL [facility] AM Chemistry Order RATIO PANEL URINE [place] [facility] S (RANDOM) SP Apr 28, 2022 12:00 Laboratory - BASIC METABOLIC PANEL [place] [facility] L [facility] AM Chemistry Order (fasting) BLOOD [place] [facility] (SST-SERUM) SP Apr 28, 2022 12:00 Laboratory - HEMOGLOBIN A1C PANEL [place] [facility]L [facility] AM Chemistry Order BLOOD (LAV-BLOOD) [facility] [place] Vital Signs: All taken on the encounter date This section contains inpatient and outpatient Vital Signs collected on the date of the Encounter. Date/Time Temperature Pulse Blood Respiratory SP02 Pain Height Weight Aleksander dy Source Pressure Rate Mass Index Apr 17 135/72 97 % [facility] 2021 03:48 /min mm[Hg] IELD PM Social History: Smoking Status (Most current) and Tobacco Use (All prior to encounter date) This section includes the most current, and the historical, smoking and tobacco-related health factors from the [place] facility where the Encounter took place.Current Smoking Status This section includes the most current smoking, or tobacco-related health factor, from the [place] facility where the Encounter took place. Date/Time Current Smoking Status Comment Facility February 03, 2019 10:28 AM [place]-TOBACCO NEVER USED [facility] Tobacco Use History This section includes a history of the smoking, or tobacco- related health factors, that were collected on or before the date of the Encounter. The data comes from the [place] facility where the Encounter took place. Date/Time Smoking Status/Tobacco Use Comment [facility] fidelia Jan 13, 2018 09:49 AM LIFETIME NON-TOBACCO USER [place] Jan 04, 2017 10:17 AM LIFETIME NON-TOBACCO USER [place] Dec 23, 2015 08:49 AM LIFETIME NON-TOBACCO USER [place] Nov 27, 2005 02:55 PM LIFETIME NON-TOBACCO USER [place] patient reportssmoking only dafne pickett January 22, 2003 10:42 AM LIFETIME NON-SMOKER [facility] Aug 18, 2001 01:54 PM LIFETIME NON-TOBACCO USER [place] pt states he has never smoked May 14, 2001 02:23 PM LIFETIME NON-SMOKER [facility] Encounter Notes: All associated encounter notes This section contains the clinical notes associated to the Encounter. Date/Time Encounter Note(s) Provider Source Apr 17, 2022 03:15 PM PRIMARY CARE NOTE: RONAN FOX [facility] LOCAL TITLE: WALK-IN NOTE PRIMARY CARE (T) STANDARD TITLE: PRIMARY CARE NOTE DATE OF NOTE: APR 17, 2022@15:15 ENTRY DATE: APR 19, 2022@14:55:27 AUTHOR: RONAN FOX EXP COSIGNER: URGENCY: STATUS: COMPLETED <====Click to Start Nurse Data: 71year old MALE [place] reports to Primary Care clinic for Walk-In visit. 's PCP is AMBIKA KNIGHT, last visit with PCP was , next visit scheduled for . Today Vet walks in to clinic with complaint of l eft toe pain. Last recorded Vital Signs are: Temperature:97.8 F [36.6 C] (11/13/2021 09:18) Pulse:73 (11/13/2021 09:18) Blood Pressure:112/67 (11/13/2021 09:18) Respiration:20 (11/13/2021 09:18) Pain:0 (07/24/2021 15:54) Vet reports current allergies are:Remote Allergy Data No Remote Allergy/ADR Data available for this pa tient Current Medications from Active Med list include : Active Outpatient Medications (including Supplie s): Active Outpatient Medications Status 1) GLUCAGON 1MG/JEY INJ EMERGENCY KIT INJECT 1 I NJECTION ACTIVE INTRAMUSCULARLY ONE TIME NEEDED FOR SEVERE L OW BLOOD SUGAR 2) GLUCOSE SENSOR FREESTYLE ANTOINE 2 USE 1 SENSOR ACTIVE DIRECTED EVERY 14 DAYS 3) INSULIN,ASPART 100UN/ML KELLY FLEXPEN 3ML INJE CT 25 ACTIVE UNITS SUBCUTANEOUSLY THREE TIMES A DAY 4) INSULIN,GLARGINE 100 UNT/ML 3ML SOLOSTAR INJE CT 68 ACTIVE UNITS SUBCUTANEOUSLY ONCE DAILY FOR DIABETES 5) SKIN BARRIER WIPE TORBOT SKIN TAC USE 1 WIPE ACTIVE TOPICALLY EVERY 14 DAYS 6) TADALAFIL 10MG TAB TAKE ONE TABLET BY MOUTH O NCE ACTIVE DAILY NEEDED Active Non-VA Medications Status 1) Non-VA ALCOHOL PREP PAD 1 PAD TOPICALLY FOUR TIMES A ACTIVE DAY 2) Non-VA APIXABAN 5MG TAB 5MG BY MOUTH ONCE MEMO LY ACTIVE 3) Non-VA ASPIRIN 81MG EC TAB 81MG BY MOUTH LEONARDA Y ACTIVE 4) Non-VA ATORVASTATIN CALCIUM 80MG TAB 40 MG BY MOUTH ACTIVE AT BEDTIME 5) Non-VA DOXAZOSIN MESYLATE 2MG TAB 2MG BY MOUT H ONCE ACTIVE DAILY 6) Non-VA DOXAZOSIN MESYLATE 8MG TAB 8 MG BY CAROLYNE TH AT ACTIVE BEDTIME 7) Non-VA FEXOFENADINE HCL [...] CAP,ORAL BY MOUTH O N SATURDAY ACTIVE 23 Total Medications Action: comes in because he has a callous on his left big toe. [place] states it had been infected a while back and had to bi e abx. Toe does not look infected, no redness or warth felt when palpated . [place] stated it did not hurt at that moment but has sometimes felt it t o be painful . Podiatry [facility] will be alerted to call 's gf phone for possible schedule to have callous filed down by Podiatry provider. Reminders Advance Directive Screen Dec 11 Suicide Screen May 11 BMI>30/>24.99 High Risk Dec 16 Statin Use CVD/DM DUE NOW DM/PVD/ESRD Foot Exam Jan 04 Depression Screening May 11 Home Telehealth (CCHT) Referral January 23 Relationship Health & Safety Screen Aug 06 Tobacco Use Screening May 11 Medication Reconciliation DUE NOW Td / Tdap Immunization Mar 02 Alcohol Use Screen (AUDIT-C) May 11 COVID-19 Immunization Nov 11 Response: /es/ RONAN FOX RN REGISTERED NURSE Signed: 04/19/2022 15:01 Receipt Acknowledged By: * AWAITING SIGNATURE * FAIZA SAUCEDO
--- OUTSIDE RECORDS SUMMARY | 2022-07-08 12:42 | XMS_ITS | Encounter Summary ---
:1950 Author Organization Department of [facility] rs Address [address] [place] [address] Support Name Relationship Address Phone THANIA BERGER Rosmery Unavailable [address] [place] [address] AMELIA BERGER Unavailable [address] [place] [address] Insurance Providers: All historical and current Section [...] AARP INS PRESCRIPT MEDIC Sep 16, PDPIND [id number] [phone] YESSI BERGERZhane PATIENT ION ARE D 2017 [id number] IS MEDICAID MEDICAID [facility] Jul 17, MEDICAI [id number] [phone] DAYAMI BERGER PATIENT EALTH 2014 D [id number] IS STAND [place]RISTOPHER MEDICARE MEDICARE PART Sep 16, PART A [id number] [phone] Rosmery BERGER PATIENT (WNR) (M) A 2010 00 IS MEDICARE MEDICARE PART Sep 16, PART B [id number] [phone] Rosmery BERGER PATIENT (WNR) (M) B 2010A 00 IS MEDICARE MEDICARE PART Sep 16, PART B [id number] Rosmery BERGER PATIENT (WNR) (M) B 2010 XH29 2 IS MEDICARE MEDICARE PART Sep 16, PART A [id number] Rosmery BERGER PATIENT (WNR) (M) A 2010 [id number] 2 IS Selected Encounter This section includes the information on record at [place] for the Encounter. Date/Time Encounter Type Encounter Reason Provider Source Description Apr 19, 2022 02:37 Outpatient TELEPHONE TRIAGE GABRIEL JORDANN Steven PM Encounter IHE Encounter Template Text not used by [place] Plan of Treatment: Future Appointments (+ 6 months) and Future Tests (+/- 45 days) The Plan of Treatment section includes future care activities for the patient from all [place] [facility]. This section includes future appointments and future orders which are active, pending orscheduled.Future Appointments This section includes appointments that were scheduled to occur 6 months from the date of the Encounter, up to a maximum of 20 appointments. The data comes from all [facility]. Appointment Date/Time Appointment Type Appointment Facili ty Name May 14, 2022 02:15 PM AMBULATORY [facility] Jun 14, 2022 01:30 PM [facility] Jul 04, 2022 03:00 PM [facility] [place] [facility] Jul 04, 2022 03:15 PM [facility] [place] [facility] Jul 05, 2022 01:30 PM [facility] Sep 05, 2022 03:30 PM [facility] Oct 03, 2022 03:00 PM [facility] [place] [facility] Oct 10, 2022 03:00 PM [facility] Active, Pending, and Scheduled Orders This section includes a listing of several types of active, pending, and scheduled orders, including clinic medications orders, diagnostic test orders, procedure orders and consult orders; where the start date of the order is 45 days before the date of the Encounter or 45 days after the date of the Encounter. The data comes from all [facility]. Test Date/Time Test Type Test Details Facility Name Apr 28, 2022 12:00 Laboratory - LIPID PANEL FASTING [place] CN[facility]L [facility] AM Chemistry Order BLOOD (SST-SERUM) [facility] Apr 28, 2022 12:00 Laboratory - MICROALBUMIN CREATININE [facility] TRL WSTR[facility] AM Chemistry Order RATIO PANEL URINE [place] [facility] S (RANDOM) SP Apr 28, 2022 12:00 Laboratory - BASIC METABOLIC PANEL [place] CNTR L [facility] AM Chemistry Order (fasting) BLOOD [facility] [facility] (SST-SERUM) SP Apr 28, 2022 12:00 Laboratory - HEMOGLOBIN A1C PANEL [place] [facility]L [facility] AM Chemistry Order BLOOD (LAV-BLOOD) [facility] Social History: Smoking Status (Most current) and Tobacco Use (All prior to encounter date) This section includes the most current, and the historical, smoking and tobacco-related health factors from the [place] facility where the Encounter took place.Current Smoking Status This section includes the most current smoking, or tobacco-related health factor, from the [place] facility where the Encounter took place. Date/Time Current Smoking Status Comment Facility May 11, 2021 01:18 PM VA-TOBACCO NEVER USED [place] C NTRL [facility]STR[facility] Encounter Notes: All associated encounter notes This section contains the clinical notes associated to the Encounter. Date/Time Encounter Note(s) Provider Source Apr 19, 2022 02:37 PM RN PROGRESS NOTE: RYNE JORDAN [place] CNTR L [facility] LOCAL TITLE: CCC: CLINICAL TRIAGE [facility] STANDARD TITLE: RN PROGRESS NOTE DATE OF NOTE: APR 19, 2022@14:37:40 ENTRY DATE: APR 19, 2022@14:37:40 AUTHOR: RYNE JORDAN EXP COSIGNER: URGENCY: STATUS: COMPLETED CCC: CLINICAL TRIAGE Has ADDENDA Patient Demographics Patient Name: JESSICA BERGER Patient Primary [address]: [address] [place] [address] <>[place], [place] [address] Patient Primary Phone: [phone] Patient : 1950 SSN: [id number] Patient Age: 71 Caller Relationship: Caregiver Caller Name: Joycelyn Emergency Contactx: AMELIA BERGER Emergency Contact Phonex: Triage Summary Nurse Summary: Pts GF/caregiver, Joycelyn (no auth on file) called today saying she's waiting for a call lawson k from Podiatry regarding the wound on the pts left foot. Joycelyn says the pt was seen in [place] at the [facility] on 04/17/22 and was told the toe isn't infected. Joycelyn says the pt says the pain in the toe is getting worse and they are really hoping to get in to see Podiatry before the weekend. Joycelyn denies any n/v/d/feve rs and says she's hoping to get in with Podiatry so the pts symptoms don't progress to that point. [facility] RN was not able to see the [place] note from . Forwarding to the PACT for review and f/u and al erting PACT RN via Teams. Joycelyn can be reached at [phone] Summary of Actions Other course(s) of action Generated msg to PACT/Provider Provided guidance for worsening symptoms: *Johns r/Patient* advised to call facilities [place] Clinical Contact Center or seek [facility] medical attention for new or worsening symptoms Clinical Contact Center Codes Clinic/Location: V1 CWM PHONE [facility] RN /es/ RYNE JORDAN CALL CENTER REGISTERED NURSE Signed: 04/19/2022 14:37 Receipt Acknowledged By: 04/19/2022 15:33 /es/ JOEY RODRIGUEZ LPN LICENSED PRACTICAL NURSE 04/19/2022 14:54 /jamal/ RONAN FOX RN REGISTERED NURSE * AWAITING SIGNATURE * ROOSEVELT OCONNELL 04/19/2022 ADDENDUM STATUS: COMPLETED Podiatry [facility] to call and his GF to info rm them of availability. /jamal/ RONAN FOX RN REGISTERED NURSE Signed: 04/19/2022 14:53 04/19/2022 ADDENDUM STATUS: COMPLETED Called and spoke to 's girlfriend, Joycelyn . Forwarded Podiatry's recommendation of soaking foot in warm water for several minutes to soften callous then using a pumice stone to gently scrub the callous to remove it. Can be done a few times over several days. Urged gir hernánriend to make sure not to scrub vigorously. Joycelyn understands information . /jamal/ RONAN FOX RN REGISTERED NURSE Signed: 04/19/2022 15:47 04/19/2022 ADDENDUM STATUS: COMPLETED Joycelyn was advised the next availability for a P odiatry appt is in August. /jamal/ RONAN FOX RN REGISTERED NURSE Signed: 04/19/2022 15:48
--- OUTSIDE RECORDS SUMMARY | 2022-07-08 12:42 | XMS_ITS ---
:1950 Author Organization Department of [facility] rs Address [address] [place] [address] Support Name Relationship Address Phone CELINEGONZÁLEZTHANIA Rosmery Unavailable [address] [place] [address] [place] [address] CELINEAMELIA Unavailable [address] [place] [address] Insurance Providers: All historical and current Section [...] AARP INS PRESCRIPT MEDIC Sep 16, PDPIND [id number] [phone] YESSI BERGERZhane PATIENT ION ARE D 2017 [id number] IS MEDICAID MEDICAID [facility] Jul 17, MEDICAI [id number] [phone] DAYAMI BERGER PATIENT EALTH 2014 D [id number] IS STAND [place]RISTOPHER MEDICARE MEDICARE PART Sep 16, PART A [id number] [phone] Rosmery BERGER PATIENT (WNR) (M) A 2010 00 IS MEDICARE MEDICARE PART Sep 16, PART B [id number] [phone] Rosmery BERGER PATIENT (WNR) (M) B 2010 00 IS MEDICARE MEDICARE PART Sep 16, PART A [id number] Rosmery BERGER PATIENT (WNR) (M) A 2010 XH29 2 IS MEDICARE MEDICARE PART Sep 16, PART B [id number] Rosmery BERGER PATIENT (WNR) (M) B 2010 [id number] 2 IS Selected Encounter This section includes the information on record at [place] for the Encounter. Date/Time Encounter Type Encounter Description Reason Provider Source Apr 17, 2022 04:00 Outpatient Encounter PRIMARY CARE/MEDICINE PM IHE Encounter Template Text not used by [place] Plan of Treatment: Future Appointments (+ 6 months) and Future Tests (+/- 45 days) The Plan of Treatment section includes future care activities for the patient from all [place] [facility]. This section includes future appointments and future orders which are active, pending orscheduled.Future Appointments This section includes appointments that were scheduled to occur 6 months from the date of the Encounter, up to a maximum of 20 appointments. The data comes from all [facility]. Appointment Date/Time Appointment Type Appointment Facili ty Name May 14, 2022 02:15 PM AMBULATORY [facility] Jun 14, 2022 01:30 PM [facility] Jul 04, 2022 03:00 PM [facility] Jul 04, 2022 03:15 PM [facility] Jul 05, 2022 01:30 PM [facility] Sep 05, 2022 03:30 PM [facility] Oct 03, 2022 03:00 PM [facility] Oct 10, 2022 03:00 PM [facility] Active, Pending, and Scheduled Orders This section includes a listing of several types of active, pending, and scheduled orders, including clinic medications orders, diagnostic test orders, procedure orders and consult orders; where the start date of the order is 45 days before the date of the Encounter or 45 days after the date of the Encounter. The data comes from all [facility]. Test Date/Time Test Type Test Details Facility Name Apr 28, 2022 12:00 Laboratory - LIPID PANEL FASTING [place] CN[facility]L [facility] AM Chemistry Order BLOOD (SST-SERUM) [place] [facility] Apr 28, 2022 12:00 Laboratory - MICROALBUMIN CREATININE [facility] TRL WSTRN AM Chemistry Order RATIO PANEL URINE [place] S (RANDOM) SP Apr 28, 2022 12:00 Laboratory - BASIC METABOLIC PANEL [place] CN[facility] L [facility] AM Chemistry Order (fasting) [facility]LOOD [place] [facility] (SST-SERUM) Apr 28, 2022 12:00 Laboratory - HEMOGLOBIN A1C PANEL [place] [facility]L [facility] AM Chemistry Order BLOOD (LAV-BLOOD) [facility] [place] [facility] Social History: Smoking Status (Most current) and Tobacco Use (All prior to encounter date) This section includes the most current, and the historical, smoking and tobacco-related health factors from the [place] facility where the Encounter took place.Current Smoking Status This section includes the most current smoking, or tobacco-related health factor, from the [place] facility where the Encounter took place. Date/Time Current Smoking Status Comment Facility May 11, 2021 01:18 PM VA-TOBACCO NEVER USED [place] C NTRL [place] [facility] Encounter Notes: All associated encounter notes This section contains the clinical notes associated to the Encounter. Date/Time Encounter Note(s) Provider Source Apr 17, 2022 04:00 PM ADMINISTRATIVE NOTE: RONAN FOX [facility] TITLE: ADMINISTRATIVE NOTE STANDARD TITLE: ADMINISTRATIVE NOTE DATE OF NOTE: APR 17, 2022@16:00 ENTRY DATE: APR 17, 2022@16:00:32 AUTHOR: RONAN FOX EXP COSIGNER: URGENCY: STATUS: COMPLETED would like to make an appt with Podiatry . Best number to call is . /jamal/ RONAN FOX RN REGISTERED NURSE Signed: 04/17/2022 16:01 Receipt Acknowledged By: * AWAITING SIGNATURE * ROOSEVELT OCONNELL
--- OUTSIDE RECORDS SUMMARY | 2022-07-08 12:43 | XMS_ITS ---
:1950 Author Organization Department of [facility] rs Address [address] [place] [id number] Support Name Relationship Address Phone GONZÁLEZ BERGERSON Rosmery Unavailable [address] [place] [address] [place] [address] AMELIA BERGER Unavailable [address] [place] [address] Insurance Providers: All historical and current Section Date Range: From patient's date of to the date document was created.This section includes the names of all active insurance providers for the patient. Insurance Type of Plan Start of End of Group Member Insurance Policy P atient's Provider Coverage Name Policy Policy Number ID Provider's Strickland's Relationship Coverage Coverage Telephone Name to Policy Number Strikcland AARP INS PRESCRIPT MEDIC Sep 16, PDPIND [id number] [phone] YESSI BERGERZhane PATIENT ION ARE D 2017 [id number] IS MEDICAID MEDICAID [facility] Jul 17, MEDICAI [id number] [id number] DAYAMI BERGER PATIENT EALTH 2014 [id number] IS STAND CHRISTOPHER MEDICARE MEDICARE PART Sep 16, PART A [id number] Rosmery BERGER PATIENT (WNR) (M) A 2010 00 IS MEDICARE MEDICARE PART Sep 16, PART B [id number] Rosmery BERGER PATIENT (WNR) (M) B 2010A 00 IS MEDICARE MEDICARE PART Sep 16, PART A [id number] Rosmery BERGER PATIENT (WNR) (M) A 2010 [id number] 2 IS MEDICARE MEDICARE PART Sep 16, PART B [id number] Rosmery BERGER PATIENT (WNR) (M) B 2010 [id number] 2 IS Selected Encounter This section includes the information on record at [place] for the Encounter. Date/Time Encounter Type Encounter Reason Provider Source Description Jun 14, 2022 OFFICE O/P EST ENDOCRINOLOGY ICD-10-CM E11.8 AMIRA STALLINGS 01:30 PM MOD 30-39 MIN Type 2 diabetes mellitus with unspecified complications with Provider Comments: Type II diabetes mellitus ([facility] [id number]) IHE Encounter Template Text not used by [place] Assessments - Encounter Diagnoses This section includes the primary and secondary diagnoses documented for the Encounter. Date/Time Primary/Secondary Diagnosis Name Provider Source Diagnosis Jun 14, 2022 PRIMARY Type 2 diabetes DELMER STALLINGS [place] [facility] WST RN 07:34 PM mellitus with [facility] unspecified complications Jun 14, 2022 SECONDARY Chronic kidney DELMER STALLINGS [place] [facility]STR N 07:34 PM disease, [facility] unspecified Jun 14, 2022 SECONDARY Essential DELMER STALLINGS [place] [facility] 07:34 PM (primary) [facility] hypertension Jun 14, 2022 SECONDARY Hyperlipidemia, STALLINGSDELMER [place] [facility] WST RN 07:34 PM unspecified [place] [facility] Plan of Treatment: Future Appointments (+ 6 months) and Future Tests (+/- 45 days) The Plan of Treatment section includes future care activities for the patient from all [place] treatmentfacilities. This section includes future appointments and future orders which are active, pending orscheduled.Future Appointments This section includes appointments that were scheduled to occur 6 months from the date of the Encounter, up to a maximum of 20 appointments. The data comes from all [place] treatment facilities. Appointment Date/Time Appointment Type Appointment Facili ty Name Jul 04, 2022 03:00 PM [facility] [place] [facility] [place] [facility] Jul 04, 2022 03:15 PM [facility] [place] [facility] Jul 05, 2022 01:30 PM [facility] [place] Sep 05, 2022 03:30 PM [facility] Oct 03, 2022 03:00 PM AMBULATORY [facility] [place] [facility] Oct 10, 2022 03:00 PM [facility] [place] [facility] Dec 06, 2022 03:30 PM [facility] Lab Results: +/- 30 days of [...] - Unit Interpretation Reference Range Comment Jun 08, 2022 07:39 [facility] [place] FERRITIN S pecimen Type: SERUM AM HCS No comment enter ed. Ordering Provid er: MELANIA VINCENT Report Released Date/Time: Feb 14, 2022 08:21 AM Reporting Lab: [place] [facility] [place] [facility] [address] [facility] [address] Performing Lab: [place] [facility] [place] [facility] [address] [facility] [address] FERRITIN 20.5 20-300 Jun 08, 2022 [facility] MICROALBUMIN Specimen Type: URINE 07:39 AM [place] [facility] CREATININE RATIO PANEL No commen t entered. Ordering Provid er: MELANIA VINCENT Report Released Date/Time: Feb 14, 2022 08:21 AM Reporting Lab: [place] [facility] [place] [facility] [address] [facility] [address] Performing Lab: [place] [facility] [place] [facility] [address] [facility] [address] MICROALBUMIN/CREATININE RATIO 316.8 H 0-29.9 MICROALBUMIN,QUANTITATIVE 24.7 RR U NAVAIL CREATININE URINE 77.97 Jun 08, 2022 [facility] IRON & TIBC PANEL Specimen Type : SERUM 07:39 AM [facility] [facility] No comment enter ed. Ordering Provid er: MELANIA VINCENT Report Released Date/Time: Feb 14, 2022 08:21 AM Reporting Lab: [facility] [place] [facility] [address] [facility] [address] Performing Lab: [facility] [place] [facility] [address] [facility] [address] TIBC 381 204-475 IRON 64 40-160 Transferrin Saturation 16.8 L 20.0-50 .0 Jun 08, 2022 07:39 AM [place] LIPID PANEL FASTING Speci men Type: SERUM No comment enter ed. Ordering Provid er: AMBIKA KNIGHT Report Released Date/Time: Jun 06, 2022 03:16 PM Reporting Lab: [place] [facility] [place] [facility] [address] [facility] [address] Performing Lab: [facility] [place] [facility] [address] [facility] [address] CHOLESTEROL 146 <7-199 TRIGLYCERIDE 238 H 0-150 LDL calculated 67 0-129 CHOL/HDL 4.7 HDL CHOLESTEROL 31 L 40-60 Jun 08, 2022 [place] HEMOGLOBIN A1C Specimen Type: BLOOD 07:39 AM PANEL Comment: Values obtained from A1C measurements can vary. For typical A1C assays, a reported value of 7.0 could actually be between 6.72 and 7.28 if measured by a reference method. A reported value of 9 .0 could actuall y be between 8.73 and 9.27. Ref: http://www.ngsp.org/CAPdata.asp Ordering Provid er: AMBIKA KNIGHT Report Released Date/Time: Jun 06, 2022 03:16 PM Reporting Lab: [facility] [place] [facility] [address] [facility] [address] Performing Lab: [facility] [place] [facility] [address] [facility] [address] HEMOGLOBIN A1C 9.4 H 4.0-5.6 Jun 08, 2022 07:39 AM [place] [facility] [place] CBC Specimen Type: BLOOD HCS No comment enter ed. Ordering Provid er: MELANIA VINCENT Report Released Date/Time: Feb 14, 2022 08:21 AM Reporting Lab: [place] [facility] [place] [facility] [address] [facility] [address] Performing Lab: [place] [facility] [place] [facility] [address] [facility] [address] WBC 7.26 4.50-11.00 RBC 5.31 4.23-5.66 HGB 13.9 12.8-17 HCT 43.1 39.2-50.4 MCV 81.2 L 82-99 MCHC 32.3 30.8-35.1 PLT 280 140-360 RDW-CV 15.5 12.0-16.0 MCH 26.2 26.2-32.6 Jun 08, 2022 07:39 AM [place] BASIC METABOLIC PANEL Spe cimen Type: SERUM (fasting) No comment enter ed. Ordering Provid er: AMBIKA KNIGHT Report Released Date/Time: Jun 06, 2022 03:16 PM Reporting Lab: [facility] [place] [facility] [address] [facility] [address] Performing Lab: [facility] [place] [facility] [address] [facility] [address] UREA NITROGEN 24 7-25 GLUCOSE 230 H 65-100 SODIUM 136 135-145 POTASSIUM 5.2 H 3.5-5.0 CHLORIDE 104 100-110 CO2 23 20-30 CREATININE, Serum 1.66 H 0.50-1.40 eGFR(CKD-EPI 2020) 44 L >60 Jun 08, 2022 [facility]N BASIC METABOLIC PANEL Specimen Type: SERUM 07:39 AM [place] [facility] (non-fasting) No comment enter ed. Ordering Provid er: MELANIA VINCENT Report Released Date/Time: Feb 14, 2022 08:21 AM Reporting Lab: [facility] [place] [facility] [address] [facility] [address] Performing Lab: [facility] [place] [facility] [address] [facility] [address] UREA NITROGEN 24 7-25 GLUCOSE 230 H 65-100 SODIUM 136 135-145 POTASSIUM 5.2 H 3.5-5.0 CHLORIDE 104 100-110 CO2 23 20-30 CREATININE, Serum 1.66 H 0.50-1.40 eGFR(CKD-EPI 2020) 44 L >60 Vital Signs: All taken on the encounter date This section contains inpatient and outpatient Vital Signs collected on the date of the Encounter. Date/Time Temperature Pulse Blood Respiratory SP02 Pain Height Weight Aleksander dy Source Pressure Rate Mass Index Jun 14, 97.2 F 78 126/72 18 /min 97 % 5 68 in 234.6 36 2021 01:45 /min mm[Hg] lb CNTRL PM [facility] [place] [facility] [facility] Social History: Smoking Status (Most current) [...] NEVER USED [facility] [place] [facility] Encounter Notes: All associated encounter notes This section contains the clinical notes associated to the Encounter. Date/Time Encounter Note(s) Provider Source Jun 14, 2022 07:24 AM PHYSICIAN NOTE: DELMER STALLINGS CNTRL W STRN LOCAL TITLE: NOTE SHARITACHUSERyan S [facility] STANDARD TITLE: PHYSICIAN NOTE DATE OF NOTE: JUN 14, 2022@07:24 ENTRY DATE: JUN 14, 2022@07:24:42 AUTHOR: DELMER STALLINGS EXP COSIGNER: URGENCY: STATUS: COMPLETED CC: Diabetes Type 2 with renal insufficiency, HT N, Hyperlipidemia, Obesity HPI: He has a L great toe callous with an open area. Will be seeing wound center at [facility]. Wearing antoine 2 sensors. Date on reader is Pogoseatect. Upload is from today. I have received a note from his retinal special ist (in [place] [facility]), confirming agreement with us ing Ozempic. No pancreatitis. No familyl hx thyroid CA. All endocrine labs were reviewed with the tyson rey. Barriers/s supports for care: He has a S O. Son, DTR, GDTR, Friend of GDTR, and GGDTR live with pt.m Some memory loss. H e endorses eating sweets. Taking three meals a day He states that he would like to lose weight so that he would have less back pain and to be able to heal his food. Medications for diabetes: lantus 69 units daily and novolog 25 units TID. BG readings: Please see CGM report Collection DT Spec HGBA1c 06/08/2022 07:39 BLOOD 9.4 H 01/18/2022 07:58 BLOOD 10.5 H 10/18/2021 10:04 BLOOD 9.7 H 06/23/2021 10:18 BLOOD 7.4 H 08/08/2020 14:19 BLOOD 8.8 H Weight trend: up from last visit. Food insecurity no Physical activity: walks with walker Carbohydrate counting: feels adequately informed . Episodes of hypoglycemia: no Hypoglycemia unawar eness: Neuropathy pain: minimal Last eye evaluation: Mild NPDR, followed by reti nal specialist. Last nephropathy screen MICROALBUMIN Jun 08, 2022@07:39 URINE mALB/Cr: 316.8 H mg/G 0 - 29.9 FindingsCREATININE-EGFR 06/08/22 07:39 1.66 H F/u by Dr. Vincent 01/18/22 07:58 1.68 H 01/18/22 07:58 1.73 H Statin therapy: Jun 08 2022 07:39 CHOL 146 mg/dL <7 - 199 TRIG 238 H mg/dL 0 - 150 HDL 31 L mg/dL 40 - 60 LDL 67 mg/dL 0 - 55 CAD: Yes, and PVD On asa: yes, and apixaban emergency kit/glucose tabs: Has glucagon kit, SO knows how to use this. Active problems - Computerized Problem List is t he source for the followin. Cerebellar stroke syndrome 2. Chronic kidney disease 3. Osteoarthritis 4. Computed tomography result abnormal 5. Low back pain 6. Type II diabetes mellitus 7. Essential hypertension 8. Overweight 9. Allergy to peanuts 10. UTI 11. Claudication (SNOMED CT 114375680) 12. Elevated Prostate Specific antigen [psa] 13. Overweight (SNOMED CT 862306582) 14. Low Back Pain * 15. 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 Impotence of organic origin 17. Colorectal Cancer Screening Results Document ed and Reviewed (PV) 18. Simple upper Gastrointestinal Endoscopy 19. Postsurgical Percutaneous Transluminal Coron chet Angioplasty Status 20. Postsurgical Status of Cataract Extraction 21. Diabetes mellitus (SNOMED CT 73198409) 22. MRSA SKIN INFECTION 23. Cocaine abuse, continuous use 24. GERD * 25. Corneal Abrasion 26. Hypertension (SNOMED CT 15824293) 27. Diabetic Neuropathies 28. Onychomycosis * 29. Cataract, PSC/Post Subcapsular 30. Cataract, Cortical (Senile) 31. Background diabetic retinopathy 32. Cyst, ganglion 33. Cervical Radiculopathy 34. Shoulder Pain 35. Hyperlipidemia (SNOMED CT 22233230) 36. Old Myocardial Infarction 37. Depressive Disorder NOS Active Outpatient Medications (including Supplie s): GLUCOSE SENSOR FREESTYLE ANTOINE 2 USE 1 SENSOR DIRECTED ACTIVE EVERY 14 DAYS INSULIN,ASPART 100UN/ML KELLY FLEXPEN 3ML INJECT 25 UNITS ACTIVE SUBCUTANEOUSLY THREE TIMES A DAY INSULIN,GLARGINE 100 UNT/ML 3ML SOLOSTAR INJECT 68 UNITS ACTIVE SUBCUTANEOUSLY ONCE DAILY FOR DIABETES SKIN BARRIER WIPE TORBOT SKIN TAC USE 1 WIPE TOP ICALLY ACTIVE EVERY 14 DAYS TADALAFIL 10MG TAB TAKE ONE TABLET BY MOUTH ONCE DAILY ACTIVE NEEDED Non-VA ALCOHOL PREP PAD 1 PAD TOPICALLY FOUR TONE ES A DAY ACTIVE Non-VA APIXABAN 5MG TAB 5MG BY MOUTH ONCE DAILY ACTIVE Non-VA ASPIRIN 81MG EC TAB 81MG BY MOUTH DAILY A CTIVE Non-VA ATORVASTATIN CALCIUM 80MG TAB 40 MG BY MO UTH AT ACTIVE discontinued BEDTIME Non-VA DOXAZOSIN MESYLATE 2MG TAB 2MG BY MOUTH O NCE DAILY ACTIVE discontinued Non-VA DOXAZOSIN MESYLATE 8MG TAB 8 MG B Y MOUTH AT BEDTIME ACTIVE discontinued Non-VA FEXOFENADINE HCL 60MG TAB 60MG BY MOUTH O NCE DAILY ACTIVE Non-VA FINASTERIDE 5MG TAB 5MG BY MOUTH ONCE MEMO LY ACTIVE Non-VA FUROSEMIDE 20MG TAB 20MG BY MOUTH TWO TONE ES A WEEK ACTIVE discontinued Non-VA MAGNESIUM OXIDE TAB 400MG BY MOUTH TWICE DAILY ACTIVE Non-VA METOPROLOL TARTRATE 25MG TAB 25MG BY MOUT H TWICE ACTIVE DAILY Non-VA MIDODRINE HCL 10MG TAB 10MG BY MOUTH TWIC E DAILY ACTIVE Non-VA MIRABEGRON PA-F TAB,SA ? BY MOUTH ONC E DAILY ACTIVE Non-VA PANTOPRAZOLE NA 40MG EC TAB 40MG BY MOUTH EVERY ACTIVE MORNING 30 MINUTES BEFORE BREAKFAST Non-VA POTASSIUM CHLORIDE 10MEQ SA TAB 10MEQ BY MOUTH ONCE ACTIVE discontinued DAILY Non-VA VALSARTAN 40MG TAB 40MG BY MOUTH ONCE MEMO LY ACTIVE discontinued Non-VA VITAMIN B COMPLEX CAP,ORAL BY MOUTH ON FR IDAY ACTIVE Rosuvastatin 40 mg daily. Keflex 500 mg qid for 10 days SHX: as above ROS: no cough or fever PE: affect pleasant appropriate speaking easily in full sentences Feet pulses marked decrease sensory to monofilament marked decrease lesions L great toe callous with open area. Medical Decision Making: Diabetes: Defer empagliflozin due to elevated bg and risk of dehydration Insulin Dose: lantus 75 units daily and novlog 2 5 units TID. Carbohydrate targets 45 gm tid Blood sugar targets 130 premeal and 150-180 aft er Hemoglobin A1c Targets Obesity He reports that it feels 7/10 important to him to lose weight. Confidence in achieving 5-10 lb weight loss in s ix mos is 7/10, because he is already making some changes. Hypertension well controlled Hyperlipidemia LDL <70, but not at a goal of < 55, which would be ideal in this patient with diabetes and peripheral vascular di sease. Improved glycemic control would likely markedly improve lipid prof ile. Team follow up none desired at this time lab bmp hgba1c next visit Insulin orders updated in cprs Copy of med list not desired by pt F/u three mos FTF [employer] MOTIVATIONAL INTERVIEWING The following Motivational Interviewing skills w ere used in this interaction Engaged individual using OARS skills Focused the conversation by exploring ambivalen ce Strengthened and reinforced change talk Food and drink DM/PVD/ESRD Foot Exam: Diabetic/Peripheral Vascular Disease Foot Exam: Patient had a complete visual examination of th e feet at this encounter. Result of Exam: Abnormal Patient's feet were examined for presence of do rsalis pedis and posterior tibial pulses. Results of Exam: Severely Diminished/Absent Patient had a monofilament examination of sensa tion in feet at this encounter. Results of Exam: Severely Diminished/Absent The patient's foot risk was calculated, and the patient was educated on proper footwear and foot care. Please calculate the patient's Foot Risk Score (FRS) - 1 Required: (RATE the foot with the HIGHEST risk!) 3 = HIGH RISK [facility] Home Telehealth (CCHT) Referral: Patient declines participation in CCHT Program at this time. Previously declined Medication Reconciliation: Outpatient: Has the patient been [...] whether with a VA or non-VA provider. Allergies/ADRs (Tool #5) FACILITY ALLERGY/ADR -------- [facility] [place] [facility] GABAPENTIN [facility] [place] [facility] NO KNOWN ALLERGIES Med Recon NoGlossary (Tool #1) INCLUDED IN THIS LIST: Alphabetical list of act joe outpatient prescriptions dispensed from this VA (local) an d dispensed from another VA or DoD facility (remote) as well as inpatien t orders (local pending and active), local clinic medications, locally docu mented non-VA medications, and local prescriptions that have or be en discontinued in the past 90 days. Non-VA Meds Last Documented On: Nov 19, 2021 NOTE The display of VA prescriptions disp ensed from another VA or DoD facility (remote) is limited to active outp atient prescription entries matched to National Drug File at the [facility] site and may not include some items such as investigational drugs, compo unds, etc. NOT INCLUDED IN THIS LIST: Medications self-ent ered by the patient into personal health records (i.e. [facility]) ar e NOT included in this list. Non-VA medications documented outside [facility], remote inpatient orders (regardless of status) and remote clinic medications are NOT included in this list. The patient and provider must always discuss medications the patient is taking, regardless o f where the medication was dispensed or obtained. Non-VA APIXABAN 5MG TAB TAKE ONE TABLET BY MOUTH ONCE DAILY Non-VA ASPIRIN 81MG EC TAB TAKE ONE TABLET BY MOUTH DAILY Non-VA FEXOFENADINE HCL 60MG TAB TAKE ONE TABLET BY MOUTH ONCE DAILY Non-VA FINASTERIDE 5MG TAB TAKE ONE TABLET BY MOUTH ONCE DAILY OUTPT GLUCAGON 1MG/JEY INJ EMERGENCY KIT (Statu s = ) INJECT 1 INJECTION INTRAMUSCULARLY ONE TIME NEEDED FOR SEVERE LOW BLOOD SUGAR Rx# [id number] Last Released: 01/26/22 Qty/Days Sup ply: Rx Expiration Date: 04/23/22 Refills Remainin OUTPT INSULIN,ASPART (NOVOLOG PEN) INJ (Status = Pending) INJECT 25 UNITS 100UNIT/ML SUBCUTANEOUSLY THREE TIMES A DAY Login Date: 06/14/22 Qty/Days Supply: Refills Ordered: 2 OUTPT INSULIN,ASPART 100UN/ML KELLY FLEXPEN 3ML (Status = Discontinued) INJECT 25 UNITS SUBCUTANEOUSLY THREE TIMES A DA Y Rx# [id number] Last Released: 01/25/22 Qty/Days Sup ply: Rx Expiration Date: 01/24/23 Refills Remainin OUTPT INSULIN,GLARGINE 100 UNT/ML 3ML SOLOSTAR (Status = Discontinued) INJECT 68 UNITS SUBCUTANEOUSLY ONCE DAILY FOR D IABETES Rx# [id number] Last Released: 01/25/22 Qty/Days Sup ply: Rx Expiration Date: 01/24/23 Refills Remainin OUTPT INSULIN,GLARGINE 100 UNT/ML 3ML SOLOSTAR (Status = Pending) INJECT 75 UNITS SUBCUTANEOUSLY ONCE DAILY FOR D IABETES please hold until requested Login Date: 06/14/22 Qty/Days Supply: Refills Ordered: 3 Non-VA MAGNESIUM OXIDE TAB TAKE 400MG BY MOUTH TWICE DAILY Non-VA METOPROLOL TARTRATE 25MG TAB TAKE ONE TABLET BY MOUTH TWICE DAILY Non-VA MIDODRINE HCL 10MG TAB TAKE ONE TABLET BY MOUTH TWICE DAILY Non-VA MIRABEGRON PA-F TAB,SA TAKE ? BY MOUTH ONCE DAILY Non-VA PANTOPRAZOLE NA 40MG EC TAB TAKE ONE TABLET BY MOUTH EVERY MORNING 30 MINUT ES BEFORE BREAKFAST Non-VA PANTOPRAZOLE NA 40MG EC TAB TAKE ONE TABLET BY MOUTH EVERY MORNING 30 MINUT ES BEFORE BREAKFAST OUTPT SEMAGLUTIDE 0.5MG/0.375ML INJ PEN 1.5ML ( Status = Pending) INJECT 0.25MG SUBCUTANEOUSLY ONCE A WEEK FOR 28 DAYS THEN INJECT 0.5MG SUBCUTANEOUSLY ONCE A WEEK SC nurs e will pharmacy picking tech Login Date: 06/14/22 Qty/Days Supply: Refills Ordered: 0 OUTPT TADALAFIL 10MG TAB (Status = Active) TAKE ONE TABLET BY MOUTH ONCE DAILY NEEDED Rx# [id number] Last Released: 01/25/22 Qty/Days Mcconnell pply: 01/13 Rx Expiration Date: 01/24/23 Refills Remainin OUTPT TADALAFIL 10MG TAB (Status = Pending) TAKE ONE TABLET BY MOUTH ONCE DAILY NEEDED Renewed from Rx# [id number] Qty/Days Supply: 01/13 Login Date: 06/14/22 Refills Ordered: 5 Non-VA VALSARTAN 40MG TAB TAKE ONE TABLET BY MOUTH ONCE DAILY Non-VA VITAMIN B COMPLEX CAP,ORAL TAKE BY MOUTH ON SATURDAY SUPPLIES Non-VA ALCOHOL PREP PAD USE 1 PAD TOPICALLY FOUR TIMES A DAY OUTPT GLUCOSE SENSOR FREESTYLE ANTOINE 2 (Status = Active) USE 1 SENSOR DIRECTED EVERY 14 DAYS Rx# [id number] Last Released: 06/02/22 Qty/Days Sup ply: 11/13 Rx Expiration Date: 01/24/23 Refills Remainin OUTPT GLUCOSE SENSOR FREESTYLE ANTOINE 2 (Status = Pending) USE 1 SENSOR DIRECTED EVERY 14 DAYS Renewed from Rx# [id number] Qty/Days Supply: 11/13 Login Date: 06/14/22 Refills Ordered: 11 OUTPT LANCET,SOFTCLIX (Status = ) USE 1 LANCET DIRECTED THREE TIMES A DAY TO T EST BLOOD SUGAR Rx# [id number] Last Released: 04/10/21 Qty/Days Mcconnell pply: 300/90 Rx Expiration Date: 04/07/22 Refills Remainin OUTPT NEEDLE,PEN 32G,4MM (Status = ) USE 1 NEEDLE SUBCUTANEOUSLY FOUR TIMES A DAY FO R USE WITH INSULIN PENS Rx# [id number] Last Released: 04/11/21 Qty/Days Mcconnell pply: 400/90 Rx Expiration Date: 04/07/22 Refills Remainin OUTPT NEEDLE,PEN 32G,4MM (Status = Pending) USE 1 NEEDLE SUBCUTANEOUSLY EVERY 7 DAYS FOR US E WITH PEN DEVICE SC nurse will pharmacy picking tech Login Date: 06/14/22 Qty/Days Supply: 100/90 Refills Ordered: 0 OUTPT SKIN BARRIER WIPE TORBOT SKIN TAC (Status = Active) USE 1 WIPE TOPICALLY EVERY 14 DAYS Rx# [id number] Last Released: 01/30/22 Qty/Days Sup ply: 50/90 Rx Expiration Date: 01/27/23 Refills Remainin /jamal/ DELMER STALLINGS MD STAFF PHYSICIAN Signed: 06/14/2022 19:34
--- OUTSIDE RECORDS SUMMARY | 2022-07-08 12:43 | XMS_ITS ---
:1950 Author Organization Department of [facility] rs Address [address] [place] [id number] Support Name Relationship Address Phone THANIA BERGER Rosmery [place] [address] AMELIA BERGER Unavailable [address] [place] [address] Insurance Providers: All historical and current Section [...] AARP INS PRESCRIPT MEDIC Sep 16, PDPIND [id number] [phone] YESSI BERGERZhane PATIENT ION ARE D 2017 251 [id number] IS MEDICAID MEDICAID [facility] Jul 17, MEDICAI [id number] [phone] YESSI BERGERZhane PATIENT EALTH 2014 D [id number] IS [place] MEDICARE MEDICARE PART Sep 16, PART A [id number] [phone] Rosmery BERGER PATIENT (WNR) (M) A 2010 00 IS MEDICARE MEDICARE PART Sep 16, PART B [id number] [phone] Rosmery BERGER PATIENT (WNR) (M) B 2010 00 IS MEDICARE MEDICARE PART Sep 16, PART A [id number] Rosmery BERGER PATIENT (WNR) (M) A 2010 XH29 2 IS MEDICARE MEDICARE PART Sep 16, PART B [id number] Rosmery BERGER PATIENT (WNR) (M) B 2010 XH29 2 IS Selected Encounter This section includes the information on record at [place] for the Encounter. Date/Time Encounter Type Encounter Description Reason Provider Source Jun 14, 2022 01:53 Outpatient Encounter GENERAL INTERNAL PM MEDICINE IHE Encounter Template Text not used by [place] Plan of Treatment: Future Appointments (+ 6 months) and Future Tests (+/- 45 days) The Plan of Treatment section includes future care activities for the patient from all [place] treatmentfacritical access hospitalities. This section includes future appointments and future orders which are active, pending orscheduled.Future Appointments This section includes appointments that were scheduled to occur 6 months from the date of the Encounter, up to a maximum of 20 appointments. The data comes from all [place] treatment facilities. Appointment Date/Time Appointment Type Appointment Facili ty Name Jul 04, 2022 03:00 PM AMBULATORY - MEDICINE [place] [facility] [place] [facility] Jul 04, 2022 03:15 PM AMBULATORY MEDICINE [place] [facility] [place] [facility] Jul 05, 2022 01:30 PM AMBULATORY MEDICINE [place] Sep 05, 2022 03:30 PM AMBULATORY [facility] Oct 03, 2022 03:00 PM AMBULATORY MEDICINE [place] [facility] [place] [facility] Oct 10, 2022 03:00 PM AMBULATORY - MEDICINE [place] [facility] [place] [facility] Dec 06, 2022 03:30 PM AMBULATORY - MEDICINE [place] [facility] [place] [facility] Lab Results: +/- 30 days of the encounter This section includes the Chemistry and Hematology Lab Results on record with [place] for the patient. Radiology Reports and Pathology Reports are provided separately, in subsequent sections.Lab Results This section contains the Chemistry/Hematology Results that were resulted 30 days before or 30 daysafter the date of the Encounter. Date/Time Source Result Type Result - Unit Interpretation Reference Range Comment Jun 08, 2022 07:39 [place] [facility] [place] FERR[place] S pecimen Type: SERUM AM [facility] No comment enter ed. Ordering Provid er: MELANIA RAMOS Report Released Date/Time: Feb 14, 2022 08:21 AM Reporting Lab: [place] [facility] [place] [facility] [address] [facility] [address] Performing Lab: [facility] [place] [facility] [address] [facility] [address] FERRITIN 20.5 20-300 Jun 08, 2022 [place] [facility] IRON & TIBC PANEL Specimen Type : SERUM 07:39 AM [place] [facility] No comment enter ed. Ordering Provid er: MELANIA RAMOS Report Released Date/Time: Feb 14, 2022 08:21 AM Reporting Lab: [facility] [place] [facility] [address] [facility] [address] Performing Lab: [facility] [place] [facility] [address] [facility] [address] TIBC 381 204-475 IRON 64 40-160 Transferrin Saturation 16.8 L 20.0-50 .0 Jun 08, 2022 [facility] MICROALBUMIN Specimen Type: URINE 07:39 AM [place] [facility] CREATININE RATIO PANEL No commen t entered. Ordering Provid er: MELANIA RAMOS Report Released Date/Time: Feb 14, 2022 08:21 AM Reporting Lab: [facility] [place] [facility] [address] [facility] [address] Performing Lab: [place] [facility] [place] [facility] [address] [facility] [address] MICROALBUMIN/CREATININE RATIO 316.8 H 0-29.9 MICROALBUMIN,QUANTITATIVE 24.7 RR U NAVAIL CREATININE URINE 77.97 Jun 08, 2022 [place] HEMOGLOBIN A1C Specimen Type: BLOOD 07:39 AM [...] Jun 06, 2022 03:16 PM Reporting Lab: [facility] [place] [facility] [address] [facility] [address] Performing Lab: [facility] [place] [facility] [address] [facility] [address] HEMOGLOBIN A1C 9.4 H 4.0-5.6 Jun 08, 2022 [facility] BASIC METABOLIC PANEL Specimen Type: SERUM 07:39 AM [place] [facility] (non-fasting) No comment enter ed. Ordering Provid er: MELANIA RAMOS Report Released Date/Time: Feb 14, 2022 08:21 AM Reporting Lab: [place] [facility] [place] [facility] [address] [facility] [address] Performing Lab: [facility] [place] [facility] [address] [facility] [address] UREA NITROGEN 24 7-25 GLUCOSE 230 H 65-100 SODIUM 136 135-145 POTASSIUM 5.2 H 3.5-5.0 CHLORIDE 104 100-110 CO2 23 20-30 CREATININE, Serum 1.66 H 0.50-1.40 eGFR(CKD-EPI 2020) 44 L >60 Jun 08, 2022 07:39 AM [place] LIPID PANEL FASTING Speci men Type: SERUM No comment enter ed. Ordering Provid er: AMBIKA KNIGHT Report Released Date/Time: Jun 06, 2022 03:16 PM Reporting Lab: [place] [facility] [place] [facility] [address] [facility] [address] Performing Lab: [place] [facility] [place] [facility] [address] [facility] [address] CHOLESTEROL 146 <7-199 TRIGLYCERIDE 238 H 0-150 LDL calculated 67 0-129 CHOL/HDL 4.7 HDL CHOLESTEROL 31 L 40-60 Jun 08, 2022 07:39 AM [place] [facility] [place] CBC Specimen Type: BLOOD HCS No comment enter ed. Ordering Provid er: MELANIA RAMOS Report Released Date/Time: Feb 14, 2022 08:21 AM Reporting Lab: [facility] [place] [facility] [address] [facility] [address] Performing Lab: [place] [facility] [place] [facility] [address] [facility] [address] WBC 7.26 4.50-11.00 RBC 5.31 4.23-5.66 HGB 13.9 12.8-17 HCT 43.1 39.2-50.4 MCV 81.2 L 82-99 MCHC 32.3 30.8-35.1 PLT 280 140-360 RDW-CV 15.5 12.0-16.0 MCH 26.2 26.2-32.6 Jun 08, 2022 07:39 AM [place] BASIC METABOLIC PANEL Spe cimen Type: SERUM (fasting) No comment enter ed. Ordering Provid er: AMBIKA KNIGHT Report Released Date/Time: Jun 06, 2022 03:16 PM Reporting Lab: [facility] [address] [facility] [address] Performing Lab: [facility] [address] [facility] [address] UREA NITROGEN 24 7-25 GLUCOSE 230 H [...] 97 % 5 68 in 234.6 36 [place] 2021 01:45 /min mm[Hg] lb [facility] PM [facility] Social History: Smoking Status (Most current) and Tobacco Use (All prior to encounter date) This section includes the most current, and the historical, smoking and tobacco-related health factors from the [place] facility where the Encounter took place.Current Smoking Status This section includes the most current smoking, or tobacco-related health factor, from the [place] facility where the Encounter took place. Date/Time Current Smoking Status Comment Facility May 11, 2021 01:18 PM WA-TOBACCO NEVER USED [place] C NTRL WSN [facility] Encounter Notes: All associated encounter notes This section contains the clinical notes associated to the Encounter. Date/Time Encounter Note(s) Provider Source Jun 14, 2022 01:53 PM DIABETOLOGY NOTE: STONE CASTRO [place] [facility] LOCAL TITLE: INSULIN PUMP/CGM DOWNLOAD (T) [facility] STANDARD TITLE: DIABETOLOGY NOTE DATE OF NOTE: JUN 14, 2022@13:53 ENTRY DATE: JUN 14, 2022@13:53:52 AUTHOR: STONE CASTRO EXP COSIGNER: URGENCY: STATUS: COMPLETED Please select: Personal Continuous Glucose Monitor Date of Documentation:May Please see attached scanned document in [facility]. liat 2 Dx: Type 2 diabetes Date on reader was wrong, [place] nurse updated date and time /es/ STONE CASTRO RN Signed: 06/14/2022 13:55
--- OUTSIDE RECORDS SUMMARY | 2022-07-08 12:43 | XMS_ITS ---
:1950 Author Organization Department of [facility] rs Address [address] [place] [address] Support Name Relationship Address Phone CELINE THANIA Rosmery Unavailable [address] [place] [address] [place] [address] CELINEAMELIA Unavailable [address] [place] [address] Insurance Providers: All historical and current Section [...] AARP INS PRESCRIPT MEDIC Sep 16, PDPIND [id number] [phone] YESSI BERGERZhane PATIENT ION ARE D 2017 [id number] IS MEDICAID MEDICAID [facility] Jul 17, MEDICAI [id number] [phone] DAYAMI BERGER PATIENT EALTH 2014 D [id number] 900 IS [place] MEDICARE MEDICARE PART Sep 16, PART A [id number] [phone] Rosmery BERGER PATIENT (WNR) (M) A 2010 00 IS MEDICARE MEDICARE PART Sep 16, PART B [id number] [phone] Rosmery BERGER PATIENT (WNR) (M) B 2010 00 IS MEDICARE MEDICARE PART Sep 16, PART A [id number] Rosmery BERGER PATIENT (WNR) (M) A 2010 XH29 2 IS MEDICARE MEDICARE PART Sep 16, PART B [id number] Rosmery BERGER PATIENT (WNR) (M) B 2010 XH29 2 IS Selected Encounter This section includes the information on record at [place] for the Encounter. Date/Time Encounter Type Encounter Description Reason Provider Source May 14, 2022 01:58 Outpatient Encounter PRIMARY CARE/MEDICINE PM IHE Encounter Template Text not used by [place] Plan of Treatment: Future Appointments (+ 6 months) and Future Tests (+/- 45 days) The Plan of Treatment section includes future care activities for the patient from all [place] [facility]. This section includes future appointments and future orders which are active, pending orscheduled.Future Appointments This section includes appointments that were scheduled to occur 6 months from the date of the Encounter, up to a maximum of 20 appointments. The data comes from all [facility]. Appointment Date/Time Appointment Type Appointment Facili ty Name Jun 14, 2022 01:30 PM AMBULATORY MEDICINE [place] [facility] Jul 04, 2022 03:00 [facility] Jul 04, 2022 03:15 PM [facility] Jul 05, 2022 01:30 PM [facility] Sep 05, 2022 03:30 PM AMBULATORY [facility] Oct 03, 2022 03:00 PM [facility] [place] [facility] Oct 10, 2022 03:00 PM [facility] Active, Pending, and Scheduled Orders This section includes a listing of several types of active, pending, and scheduled orders, including clinic medications orders, diagnostic test orders, procedure orders and consult orders; where the start date of the order is 45 days before the date of the Encounter or 45 days after the date of the Encounter. The data comes from all [facility]. Test Date/Time Test Type Test Details Facility Name Apr 28, 2022 12:00 Laboratory - LIPID PANEL FASTING [place] CN[facility]L [facility] AM Chemistry Order BLOOD (SST-SERUM) SP [place] [facility] Apr 28, 2022 12:00 Laboratory - MICROALBUMIN CREATININE [place] CN TRL W[facility] AM Chemistry Order RATIO PANEL URINE [place] [facility] (RANDOM) SP Apr 28, 2022 12:00 Laboratory - BASIC METABOLIC PANEL [place] CNTR L W[facility] AM Chemistry Order (fasting) BLOOD [place] [facility] (SST-SERUM) Apr 28, 2022 12:00 Laboratory - HEMOGLOBIN A1C PANEL [place] [facility] AM Chemistry Order BLOOD (LAV-BLOOD) [place] [facility] Lab Results: +/- 30 days [...] Feb 14, 2022 08:21 AM Reporting Lab: [place] [facility] [place] [facility] [address] [address] Performing Lab: [place] [facility] [place] [facility] [address] [address] FERRITIN 20.5 20-300 Jun 08, 2022 [place] [facility] IRON & TIBC PANEL Specimen Type : SERUM 07:39 AM [place] [facility] No comment enter ed. Ordering Provid er: MELANIA RAMOS Report Released Date/Time: Feb 14, 2022 08:21 AM Reporting Lab: [place] [facility] [place] [facility] [address] [address] Performing Lab: [place] [facility] [facility] [address] [address] TIBC 381 204-475 IRON 64 40-160 Transferrin Saturation 16.8 L 20.0-50 .0 Jun 08, 2022 [place] [facility] MICROALBUMIN Specimen Type: URINE 07:39 AM [facility] CREATININE RATIO PANEL No commen t entered. Ordering Provid er: MELANIA RAMOS Report Released Date/Time: Feb 14, 2022 08:21 AM Reporting Lab: [place] [facility] [place] [facility] [address] [address] Performing Lab: [place] [facility] [facility] [address] [address] MICROALBUMIN/CREATININE RATIO 316.8 H 0-29.9 MICROALBUMIN,QUANTITATIVE 24.7 RR U NAVAIL CREATININE URINE 77.97 Jun 08, 2022 [facility] WSTRN BASIC METABOLIC PANEL Specimen Type: SERUM 07:39 AM [place] [facility] (non-fasting) No comment enter ed. Ordering Provid er: MELANIA RAMOS Report Released Date/Time: Feb 14, 2022 08:21 AM Reporting Lab: [facility] [place] [facility] [address] [address] Performing Lab: [facility] [place] [facility] [address] [address] UREA NITROGEN 24 7-25 GLUCOSE 230 H 65-100 SODIUM 136 135-145 POTASSIUM 5.2 H 3.5-5.0 CHLORIDE 104 100-110 CO2 23 20-30 CREATININE, Serum 1.66 H 0.50-1.40 eGFR(CKD-EPI 2020) 44 L >60 Jun 08, 2022 [place] HEMOGLOBIN A1C Specimen Type: BLOOD 07:39 AM [...] Jun 06, 2022 03:16 PM Reporting Lab: [facility] [place] [facility] [address] [address] Performing Lab: [facility] [place] [facility] [address] [address] HEMOGLOBIN A1C 9.4 H 4.0-5.6 Jun 08, 2022 07:39 AM [place] LIPID PANEL FASTING Speci men Type: SERUM No comment enter ed. Ordering Provid er: AMBIKA KNIGHT Report Released Date/Time: Jun 06, 2022 03:16 PM Reporting Lab: [facility] [place] [facility] [address] [address] Performing Lab: [facility] [place] [facility] [address] [address] CHOLESTEROL 146 <7-199 TRIGLYCERIDE 238 H 0-150 LDL calculated 67 0-129 CHOL/HDL 4.7 HDL CHOLESTEROL 31 L 40-60 Jun 08, 2022 07:39 AM [facility] CBC Specimen Type: BLOOD HCS No comment enter ed. Ordering Provid er: MELANIA RAMOS Report Released Date/Time: Feb 14, 2022 08:21 AM Reporting Lab: [facility] [address] [address] Performing Lab: [facility] [address] [address] WBC 7.26 4.50-11.00 RBC 5.31 4.23-5.66 HGB 13.9 12.8-17 HCT 43.1 39.2-50.4 MCV 81.2 L 82-99 MCHC 32.3 30.8-35.1 PLT 280 140-360 RDW-CV 15.5 12.0-16.0 MCH 26.2 26.2-32.6 Jun 08, 2022 07:39 AM [place] BASIC METABOLIC PANEL Spe cimen Type: SERUM (fasting) No comment enter ed. Ordering Provid er: AMBIKA KNIGHT Report Released Date/Time: Jun 06, 2022 03:16 PM Reporting Lab: [facility] [address] [address] Performing Lab: [facility] [address] [address] UREA NITROGEN 24 7-25 GLUCOSE 230 H 65-100 SODIUM 136 135-145 POTASSIUM 5.2 H 3.5-5.0 CHLORIDE 104 100-110 CO2 23 20-30 CREATININE, Serum 1.66 H 0.50-1.40 eGFR(CKD-EPI 2020) 44 L >60 Social History: Smoking Status (Most [...] NEVER USED [facility] [place] [facility] Encounter Notes: All associated encounter notes This section contains the clinical notes associated to the Encounter. Date/Time Encounter Note(s) Provider Source May 14, 2022 01:58 PM PRIMARY CARE NOTE: ODIN MORLEY [place] LOCAL TITLE: WALK-IN NOTE PRIMARY CARE (T) STANDARD TITLE: PRIMARY CARE NOTE DATE OF NOTE: MAY 14, 2022@13:58 ENTRY DATE: MAY 14, 2022@13:58:31 AUTHOR: ODIN MORLEY EXP COSIGNER: URGENCY: STATUS: COMPLETED <====Click to Start Advanced Medical Support Champlin presents to the Primary Care clinic with the following request: [ ]Medication Renewal/Refill [ ]Consultation with Team RN [ X ]Symptoms [ ]Other The states they are: [ X ]Waiting [ ]Not Waiting Yes Walk in visit scheduled with PACT Nurse [ X ] At this encounter the 's demographi cs were verified. [ X ] At this encounter the Champlin's Insurance information was verified. [ X ] At this encounter the below scheduled visi ts for the were discussed and appointment reminder card wa s offered. Future appointments: 06/14/2022 13:30 NHM/ENDOCR INE 07/04/2022 08:00 CWM/NO/NEPHROLOGY TEL-X 09/05/2022 15:30 CWM/SO/PODIATRY/MAUDE 12/06/2022 15:30 CWM/NO/OPTOMETRY/IVANNA Vet would like to be seen fo r his left big toe, has a wound he would like looked at. /jamal/ ODIN MORLEY [employer] Signed: 05/14/2022 13:59 Receipt Acknowledged By: * AWAITING SIGNATURE * FAIZA SAUCEDO * AWAITING SIGNATURE * SABRA VAUGHN * AWAITING SIGNATURE * RONAN FOX
--- OUTSIDE RECORDS SUMMARY | 2022-07-08 12:43 | XMS_ITS | Encounter Summary ---
:1950 Author Organization [facility] rs Address [address] [place] [id number] Support Name Relationship Address Phone THANIA BERGER Unavailable [address] [place] [address] [place] [address] AMELIA BERGER Unavailable [address] [place] [address] Insurance Providers: All historical and current Section [...] AARP INS PRESCRIPT MEDIC Sep 16, PDPIND [id number] [phone] YESSI BERGERZhane PATIENT ION ARE D 2017 [id number] IS MEDICAID MEDICAID [facility] Jul 17, MEDICAI [id number] [phone] DAYAMI BERGER PATIENT EALTH 2014 D [id number] IS STAND CHRISTOPHER MEDICARE MEDICARE PART Sep 16, PART A [id number] [phone] Rosmery BERGER PATIENT (WNR) (M) A 2010 00 IS MEDICARE MEDICARE PART Sep 16, PART B [id number] [phone] Rosmery BERGER PATIENT (WNR) (M) B 2010A 00 IS MEDICARE MEDICARE PART Sep 16, PART A [id number] Rosmery BERGER PATIENT (WNR) (M) A 2010 XH29 2 IS MEDICARE MEDICARE PART Sep 16, PART B [id number] Rosmery BERGER PATIENT (WNR) (M) B 2010 XH29 2 IS Selected Encounter This section includes the information on record at [place] for the Encounter. Date/Time Encounter Type Encounter Reason Provider Source Description May 14, 2022 OFFICE O/P EST PRIMARY ICD-10-CM L84 FAIZA SAUCEDO 02:15 PM SF 10-19 MIN CARE/MEDICINE Hawk pickard with Provider Comments: Marcin IHE Encounter Template Text not used by [place] Assessments - Encounter Diagnoses This section includes the primary and secondary diagnoses documented for the Encounter. Date/Time Primary/Secondary Diagnosis Name Provider Source Diagnosis May 15, 2022 PRIMARY FAIZA Nascimento [place] 08:48 AM callosities Plan of Treatment: Future Appointments (+ 6 months) and Future Tests (+/- 45 days) The Plan of Treatment section includes future care activities for the patient [facility] [place] [facility] This section includes future appointments and future orders which are active, pending orscheduled.Future Appointments This section includes appointments that were scheduled to occur 6 months from the date of the Encounter, up to a maximum of 20 appointments. The data comes from all [facility]. Appointment Date/Time Appointment Type Appointment Facili ty Name Jun 14, 2022 01:30 PM AMBULATORY - MEDICINE [facility] Jul 04, 2022 03:00 PM [facility]ORY [facility] Jul 04, 2022 03:15 PM [facility] Jul 05, 2022 01:30 PM [facility] Sep 05, 2022 03:30 PM [facility] Oct 03, 2022 03:00 PM [facility] Oct 10, 2022 03:00 PM [facility] Active, Pending, and Scheduled Orders This section includes a listing of several types of active, pending, and scheduled orders, including clinic medications orders, diagnostic test orders, procedure orders and consult orders; where the start date of the order is 45 days before the date of the Encounter or 45 days after the date of the Encounter. The data comes from all [facility]. Test Date/Time Test Type Test Details Facility Name Apr 28, 2022 12:00 Laboratory - LIPID PANEL FASTING [facility] AM Chemistry Order BLOOD (SST-SERUM) SP [facility] Apr 28, 2022 12:00 Laboratory - MICROALBUMIN CREATININE [facility] AM Chemistry Order RATIO PANEL URINE [place] [facility] (RANDOM) SP Apr 28, 2022 12:00 Laboratory - HEMOGLOBIN A1C PANEL [facility] AM Chemistry Order BLOOD (LAV-BLOOD) SP [facility] Apr 28, 2022 12:00 Laboratory - BASIC METABOLIC PANEL [facility] L [facility] AM Chemistry [facility] (fasting[facility] (SST-[facility]ERUM[facility] SP Lab Results: +/- 30 days [...] Reference Range Comment Jun 08, 2022 07:39 [facility] [place] FERRITIN S pecimen Type: SERUM AM H[facility] No comment enter ed. Ordering Provid er: MELANIA RAMOS Report Released Date/Time: Feb 14, 2022 08:21 AM Reporting Lab: [facility] [place] [facility] [address] [facility] [address] Performing Lab: [facility] [place] [facility] [address] [facility] [address] FERRITIN 20.5 20-300 Jun 08, 2022 [facility] IRON & TIBC PANEL Specimen Type : SERUM 07:39 AM [place] [facility] No comment enter ed. Ordering Provid er: MELANIA RAMOS Report Released Date/Time: Feb 14, 2022 08:21 AM Reporting Lab: [facility] [place] [facility] [address] [facility] [address] Performing Lab: [facility] [place] [facility] [address] [facility] [address] TIBC 381 204-475 IRON 64 40-160 Transferrin Saturation 16.8 L 20.0-50 .0 Jun 08, 2022 [facility] MICROALBUMIN Specimen Type: URINE 07:39 AM [facility] CREATININE RATIO PANEL No commen t entered. Ordering Provid er: MELANIA RAMOS Report Released Date/Time: Feb 14, 2022 08:21 AM Reporting Lab: [facility] [place] [facility] [address] [facility] [address] Performing Lab: [facility] [place] [facility] [address] [facility] [address] MICROALBUMIN/CREATININE RATIO 316.8 H 0-29.9 MICROALBUMIN,QUANTITATIVE 24.7 RR U NAVAIL CREATININE URINE 77.97 Jun 08, 2022 07:39 AM [place] LIPID PANEL FASTING Speci men Type: SERUM No comment enter ed. Ordering Provid er: AMBIKA KNIGHT Report Released Date/Time: Jun 06, 2022 03:16 PM Reporting Lab[facility] [place] [facility] [address] [facility] [address] Performing Lab: [facility] [place] [facility] [address] [facility] [address] CHOLESTEROL 146 <7-199 TRIGLYCERIDE 238 H 0-150 LDL calculated 67 0-129 CHOL/HDL 4.7 HDL CHOLESTEROL 31 L 40-60 Jun 08, 2022 [place] HEMOGLOBIN A1C Specimen Type: BLOOD 07:39 AM [...] 06, 2022 03:16 PM Reporting Lab: [facility] [place] [facility] [address] [facility] [address] Performing Lab: [facility] [place] [facility] [address] [facility] [address] HEMOGLOBIN A1C 9.4 H 4.0-5.6 Jun 08, 2022 [facility] BASIC METABOLIC PANEL Specimen Type: SERUM 07:39 AM [place] [facility] (non-fasting) No comment enter ed. Ordering Provid er: MELANIA RAMOS Report Released Date/Time: Feb 14, 2022 08:21 AM Reporting Lab: [facility] [place] [facility] [address] [facility] [address] Performing Lab: [facility] [place] [facility] [address] [facility] [address] UREA NITROGEN 24 7-25 GLUCOSE 230 H 65-100 SODIUM 136 135-145 POTASSIUM 5.2 H 3.5-5.0 CHLORIDE 104 100-110 CO2 23 20-30 CREATININE, Serum 1.66 H 0.50-1.40 eGFR(CKD-EPI 2020) 44 L >60 Jun 08, 2022 07:39 AM [facility] [place] CBC Specimen Type: BLOOD HCS No comment enter ed. Ordering Provid er: MELANIA RAMOS Report Released Date/Time: Feb 14, 2022 08:21 AM Reporting Lab: [facility] [place] [facility] [address] [facility] [address] Performing Lab: [facility] [place] [facility] [address] [facility] [address] WBC 7.26 4.50-11.00 RBC 5.31 4.23-5.66 HGB 13.9 12.8-17 HCT 43.1 39.2-50.4 MCV 81.2 L 82-99 MCHC 32.3 30.8-35.1 PLT 280 140-360 RDW-CV 15.5 12.0-16.0 MCH 26.2 26.2-32.6 Jun 08, 2022 07:39 AM [place] BASIC METABOLIC PANEL Spe cimen Type: SERUM (fasting) No comment enter ed. Ordering Provid er: AMBIKA KNIGHT Report Released Date/Time: Jun 06, 2022 03:16 PM Reporting Lab: [facility] [place] [facility] [address] [facility] [address] Performing Lab: [place] [facility] [place] [facility] [address] [facility] [address] UREA NITROGEN 24 7-25 GLUCOSE 230 H [...] Aleksander dy Source Pressure Rate Mass Index May 14 135/78 97 % 2021 02:25 /min mm[Hg] IELD PM Social History: Smoking [...] 03, 2019 10:28 AM [place]-TOBACCO NEVER USED [facility] Tobacco Use History This section includes a history of the smoking, or tobacco- related health factors, that were collected on or before the date of the Encounter. The data comes from the [facility] where the Encounter took place. Date/Time Smoking Status/Tobacco Use Comment [facility] Jan 13, 2018 09:49 AM LIFETIME NON-TOBACCO USER [place] Jan 04, 2017 10:17 AM LIFETIME NON-TOBACCO USER [place] Dec 23, 2015 08:49 AM LIFETIME NON-TOBACCO USER [place] Nov 27, 2005 02:55 PM LIFETIME NON-TOBACCO USER [place] patient reportssmoking only dafne pickett January 22, 2003 10:42 AM LIFETIME NON-SMOKER [facility] Aug 18, 2001 01:54 PM LIFETIME NON-TOBACCO USER [place] pt states he has never smoked May 14, 2001 02:23 PM LIFETIME NON-SMOKER [facility] Encounter Notes: All associated encounter notes This section contains the clinical notes associated to the Encounter. Date/Time Encounter Note(s) Provider Source May 15, 2022 08:43 AM NURSE PRACTITIONER NOTE: FAIZA SAUCEDOMEHRDAD LOCAL TITLE: NURSE PRACTIONER/SICK VISIT STANDARD TITLE: NURSE PRACTITIONER NOTE DATE OF NOTE: MAY 15, 2022@08:43 ENTRY DATE: MAY 15, 2022@08:43:19 AUTHOR: FAIZA SAUCEDO COSIGNER: URGENCY: STATUS: COMPLETED SICK CALL VISIT JESSICA BERGER, is a 71 yo WHITE MALE Phelan who presents at [facility] sick call with: Callus on left great toe. He is concerned about infection. No fevers or chills. No pain. Callus has been there for some time. He recently saw podiatry who advised soaking of the foot and use of a pumice stone. The patient reports soaking his foot one time and us e of the pumice stone afterwards but the callus remains. On exam, there is a large callus noted o n the lateral aspect of the left great toe. It is very dry and hard with a surrounding area of induration. There is also a small dried blood blister noted. No eryth ruthie, swelling, tenderness. [facility] PCP: AMBIKA KNIGHT VITAL SIGNS: Temperature 97.8 F [36.6 C] (11/13/2021 09:18) Blood Pressure 135/78 (05/14/2022 14:25) Pulse 82 (05/14/2022 14:25) Respiration 20 (11/13/2021 09:18) Pain 0 (07/24/2021 15:54) BMI BMI: 34.7 Weight 228 lb [103.42 kg] (11/13/2021 09:18) Pulse Oximetry 97% (05/14/2022 14:25) Review of Systems: A 10 point review of systems is negative except as noted in the HPI. EXAMINATION General: Well-appearing in no obvious di stress; accompanies. Mental Status: Alert and oriented x4. Head: Normocephalic. Neuro: CN II through XII grossly intact. Normal speech. Normal gait. Integument: Callus left great toe without eviden ce of infection as noted in HPI. Skin is warm and dry; fair turgor. Psych: Normal mood and affect. Normal judgment. ASSESSMENT/PLAN Callus left great toe: No evidence of infection. I took a scalpel and shaved off the upper portion of the callus. Tolerated w ell. Advised the patient to soak the foot and use pumice stone gently afterw ards daily. They voiced understanding of instructions. >> MEDICATIONS Reviewed with >> CLINICAL REMINDERS NOT ADDRESSED d/t SICK FLO L Defer to PCP/PACT Team FOLLOW UP: RTC Below & sooner PRN UPCOMING APPOINTMENTS: 06/12/2022 14:00 CWM/SO/PACT 4 06/14/2022 13:30 NHM/ENDOCRINE 07/04/2022 08:00 CWM/NO/NEPHROLOGY TEL-X 09/05/2022 15:30 CWM/SO/PODIATRY/ROSS 12/06/2022 15:30 CWM/NO/OPTOMETRY/MERHAR 17 minutes spent in patient evaluation, data rev iew, patient education, and care coordination. /jamal/ FAIZA SAUCEDO NP NURSE PRACTITIONER Signed: 05/15/2022 08:48
--- OUTSIDE RECORDS SUMMARY | 2022-07-08 12:44 | XMS_ITS ---
:1950 Author Organization [facility] of [facility] rs Address [address] [place] [address] Support Name Relationship Address Phone THANIA CHRISTIANSON Unavailable [address] [place] [address] AMELIA CHRISTIANSON Unavailable [address] [place] [address] Insurance Providers: All historical and current Section [...] AARP INS PRESCRIPT MEDIC Sep 16, PDPIND [id number] [phone] DAYAMI CHRISTIANSON PATIENT ION ARE D 2017 [id number] IS MEDICAID MEDICAID [facility] Jul 17, MEDICAI [id number] [phone] DAYAMI CHRISTIANSON PATIENT EALTH 2014 D [id number] IS STAND CHRISTOPHER MEDICARE MEDICARE PART Sep 16, PART A [id number] [phone] Rosmery CHRISTIANSON PATIENT (WNR) (M) A 2010 00 IS MEDICARE MEDICARE PART Sep 16, PART B [id number] [phone] Rosmery CHRISTIANSON PATIENT (WNR) (M) B 2010A 00 IS MEDICARE MEDICARE PART Sep 16, PART B [id number] Rosmery CHRISTIANSON PATIENT (WNR) (M) B 2010 XH29 2 IS MEDICARE MEDICARE PART Sep 16, PART A [id number] Rosmery CHRISTIANSON PATIENT (WNR) (M) A 2010 [id number] 2 IS Selected Encounter This section includes the information on record at [place] for the Encounter. Date/Time Encounter Type Encounter Reason Provider Source Description Jun 19, 2022 CONT GLUC [facility]TR ENDOCRINOLOGY ICD-10-CM E11.8 AMIRA STALLINGS E 08:23 AM ANALYSIS I&R Type 2 diabetes mellitus with unspecified complications with Provider Comments: Type II diabetes mellitus ([facility] [id number]) IHE Encounter Template Text not used by [place] Assessments - Encounter Diagnoses This section includes the primary and secondary diagnoses documented for the Encounter. Date/Time Primary/Secondary Diagnosis Name Provider Source Diagnosis Jun 19, 2022 PRIMARY Type 2 diabetes DELMER STALLINGS [facility] WST RN 08:30 AM mellitus with [place] [facility] unspecified complications Plan [...] Name Jul 04, 2022 03:00 PM [facility] Jul 04, 2022 03:15 PM [facility] Jul 05, 2022 01:30 PM [facility] Sep 05, 2022 03:30 PM [facility] Oct 03, 2022 03:00 PM [facility] Oct 10, 2022 03:00 PM [facility] Dec 06, 2022 03:30 PM [facility] Lab Results: +/- 30 days of the encounter This section includes the Chemistry and Hematology Lab Results on record with [place] for the patient. Radiology Reports and Pathology Reports are provided separately, in subsequent sections.Lab Results This section contains the Chemistry/Hematology Results that were resulted 30 days before or 30 daysafter the date of the Encounter. Date/Time Source Result Type Result - Unit Interpretation Reference Range Comment Jun 08, 2022 [facility] IRON & TIBC PANEL Specimen Type : SERUM 07:39 AM [facility] No comment enter ed. Ordering Provid er: MELANIA RAMOS Report Released Date/Time: Feb 14, 2022 08:21 AM Reporting Lab: [facility] [place] [facility] [address] [facility] [address] Performing Lab: [facility] [place] [facility] [address] [facility] [address] TIBC 381 204-475 IRON 64 40-160 Transferrin Saturation 16.8 L 20.0-50 .0 Jun 08, 2022 07:39 [facility] [place] FERRITIN S pecimen Type: SERUM AM HCS No comment enter ed. Ordering Provid er: MELANIA RAMOS Report Released Date/Time: Feb 14, 2022 08:21 AM Reporting Lab: [facility] [place] [facility] [address] [facility] [address] Performing Lab: [facility] [place] [facility] [address] [facility] [address] FERRITIN 20.5 20-300 Jun 08, 2022 [facility] MICROALBUMIN Specimen Type: URINE 07:39 AM [place] [facility] CREATININE RATIO PANEL No commen t entered. Ordering Provid er: MELANIA RAMOS Report Released Date/Time: Feb 14, 2022 08:21 AM Reporting Lab: [facility] [place] [facility] [address] [facility] [address] Performing Lab: [facility] [place] [facility] [address] [facility] [address] MICROALBUMIN/CREATININE RATIO 316.8 H 0-29.9 MICROALBUMIN,QUANTITATIVE 24.7 RR U NAVAIL CREATININE URINE 77.97 Jun 08, 2022 [facility] BASIC METABOLIC PANEL Specimen Type: SERUM 07:39 AM [place] [facility] (non-fasting) No comment enter ed. Ordering Provid er: MELANIA RAMOS Report Released Date/Time: Feb 14, 2022 08:21 AM Reporting Lab: [facility] [place] [facility] [address] [facility] [address] Performing Lab: [facility] [place] [facility] [address] [facility] [address] UREA NITROGEN 24 7-25 GLUCOSE 230 H 65-100 SODIUM 136 135-145 POTASSIUM 5.2 H 3.5-5.0 CHLORIDE 104 100-110 CO2 23 20-30 CREATININE, Serum 1.66 H 0.50-1.40 eGFR(CKD-EPI 2020) 44 L >60 Jun 08, 2022 07:39 AM [place] LIPID PANEL FASTING Speci men Type: SERUM No comment enter ed. Ordering Provid er: AMBIKA KNIGHT Report Released Date/Time: Jun 06, 2022 03:16 PM Reporting Lab: [place] [facility] [place] [facility] [address] [facility] [address] Performing Lab: [facility] [place] [facility] [address] [facility] [address] CHOLESTEROL 146 <7-199 TRIGLYCERIDE 238 H 0-150 LDL calculated 67 0-129 CHOL/HDL 4.7 HDL CHOLESTEROL 31 L 40-60 Jun 08, 2022 [place] HEMOGLOBIN A1C Specimen Type: BLOOD 07:39 AM [...] Jun 06, 2022 03:16 PM Reporting Lab: [facility] [place] [facility] [address] [facility] [address] Performing Lab: [facility] [place] [facility] [address] [facility] [address] HEMOGLOBIN A1C 9.4 H 4.0-5.6 Jun 08, 2022 07:39 AM [facility] [place] CBC Specimen Type: BLOOD HCS No comment enter ed. Ordering Provid er: MELANIA RAMOS Report Released Date/Time: Feb 14, 2022 08:21 AM Reporting Lab: [place] [facility] [facility] [address] [facility] [address] Performing Lab: [place] [facility] [place] [facility] [address] [facility] [address] WBC 7.26 4.50-11.00 RBC 5.31 4.23-5.66 HGB 13.9 12.8-17 HCT 43.1 39.2-50.4 MCV 81.2 L 82-99 MCHC 32.3 30.8-35.1 PLT 280 140-360 RDW-CV 15.5 12.0-16.0 MCH 26.2 26.2-32.6 Jun 08, 2022 07:39 AM [place] BASIC METABOLIC PANEL Spe cimen Type: SERUM (fasting) No comment enter ed. Ordering Provid er: AMBIKA KNIGHT Report Released Date/Time: Jun 06, 2022 03:16 PM Reporting Lab: [address] [address] Performing Lab: [facility] [address] [address] UREA NITROGEN 24 7-25 GLUCOSE 230 H 65-100 SODIUM 136 135-145 POTASSIUM 5.2 H 3.5-5.0 CHLORIDE 104 100-110 CO2 23 20-30 CREATININE, Serum 1.66 H 0.50-1.40 eGFR(CKD-EPI 2020) 44 L >60 Social History: Smoking Status (Most current) and Tobacco Use (All prior to encounter date) This section includes the most current, and the historical, smoking and tobacco-related health factors from the [place] facility where the Encounter took place.Current Smoking Status This section includes the most current smoking, or tobacco-related health factor, from the [place] facility where the Encounter took place. Date/Time Current Smoking Status Comment Facility May 11, 2021 01:18 PM VA-TOBACCO NEVER USED [place] C NTRL [facility] Encounter Notes: All associated encounter notes This section contains the clinical notes associated to the Encounter. Date/Time Encounter Note(s) Provider Source Jun 19, 2022 08:23 AM PHYSICIAN NOTE: DELMER STALLINGS CNTRL W [facility] LOCAL TITLE: MD [facility] STANDARD TITLE: PHYSICIAN NOTE DATE OF NOTE: JUN 19, 2022@08:23 ENTRY DATE: JUN 19, 2022@08:23:47 AUTHOR: DELMER STALLINGS EXP COSIGNER: URGENCY: STATUS: COMPLETED Dx:DM 2 Pt Name : Kirby Christianson Pt : 1950 MR# [id number] Indication for device placement Date placed: May 03 2022 Date removed (date to which the CPT code is link ed): May 16 2022 Date/time reset on reader Name of device placed: Freestyle liat 2 sensors date of printout of data: Date of interpretation: Jun 14 2022 Analysis of data (72 hours or more of monitoring required): Capture 55% Average 215 GMI 8.5% %CV 26.55 Very high 24% High 49% in range 27% low 0% very low 0% MN 192, 4AM 215, 8AM 240, noon 214, 4PM 201, 8PM 219 Variability moderate MN to n oon, and somewhat larger in the afternoon, moderate later evening. Some wide excursions, particularl y high late in the evening. Interpretation of data He would likely benefit from an increase in jim tus insulin. CPT code for interpretation [id number] /es/ DELMER STALLINGS MD STAFF PHYSICIAN Signed: 06/19/2022 08:30
--- OUTSIDE RECORDS SUMMARY | 2022-07-08 12:45 | XMS_ITS | Encounter Summary ---
:1950 Author Organization [facility] rs Address [address] [place] [id number] Support Name Relationship Address Phone THANIA BERGER Unavailable [address] [place] [address] [place] [address] CELINEAMELIA Unavailable [address] [place] [address] Insurance Providers: All historical and current Section [...] A[employer] INS PRESCRIPT MEDIC Sep 16, PDPIND [id number] [phone] DAYAMI BERGER PATIENT ION ARE D 2017 [id number] IS MEDICAID MEDICAID [facility] Jul 17, MEDICAI [id number] [id number] DAYAMI BERGER PATIENT EALTH 2014 D [id number] IS [place] MEDICARE MEDICARE PART Sep 16, PART A [id number] [phone] Rosmery BERGER PATIENT (WNR) (M) A 2010 00 IS MEDICARE MEDICARE PART Sep 16, PART B [id number] [phone] Rosmery BERGER PATIENT (WNR) (M) B 2010 00 IS MEDICARE MEDICARE PART Sep 16, PART B [id number] Rosmery BERGER PATIENT (WNR) (M) B 2010 [id number] 2 IS MEDICARE MEDICARE PART Sep 16, PART A [id number] Rosmery BERGER PATIENT (WNR) (M) A 2010 [id number] 2 IS Selected Encounter This section includes the information on record at [place] for the Encounter. Date/Time Encounter Type Encounter Reason Provider Source Description Jul 04, 2022 OFFICE O/P EST GENERAL INTERNAL ICD-10-CM E11.9 MILEY CASTRO 03:15 PM [facility] MEDICINE Type 2 diabetes mellitus without complications with Provider Comments: Diabetes mellitus ([facility] [id number]) IHE Encounter Template Text not used by [place] Assessments - Encounter Diagnoses This section includes the primary and secondary diagnoses documented for the Encounter. Date/Time Primary/Secondary Diagnosis Name Provider Source Diagnosis Jul 04, 2022 PRIMARY Type [address] [facility] TRN 03:44 PM mellitus without [facility] complications Plan of Treatment: Future Appointments (+ 6 months) and Future Tests (+/- 45 days) The Plan of Treatment section includes future care activities for the patient from all [place] treatmentfacilities. This section includes future appointments and future orders which are active, pending orscheduled.Future Appointments This section includes appointments that were scheduled to occur 6 months from the date of the Encounter, up to a maximum of 20 appointments. The data comes from all [place] treatment facilities. Appointment Date/Time Appointment Type Appointment Facili ty Name Jul 05, 2022 01:30 PM AM[facility]UL[facility]ORY [facility] Sep 05, 2022 03:30 PM [facility] Oct 03, 2022 03:00 PM [facility] Oct 10, 2022 03:00 PM AMBULATORY MEDICINE [facility] Dec 06, 2022 03:[address] [facility] Lab Results: +/- 30 days of [...] Range Comment Jun 08, 2022 07:39 [place] [facility] [place] FERRITIN S pecimen Type: SERUM AM [facility] No comment enter ed. Ordering Provid er: MELANIA RAMOS Report Released Date/Time: Feb 14, 2022 08:21 AM Reporting [facility]: [facility] [address] [address] Performing Lab: [facility] [place] [facility] [address] [facility] [address] FERRITIN 20.5 20-300 Jun 08, 2022 [facility] IRON & TIBC PANEL Specimen Type : SERUM 07:39 AM [place] [facility] No comment enter ed. Ordering Provid er: MELANIA RAMOS Report Released Date/Time: Feb 14, 2022 08:21 AM Reporting Lab: [facility] [address] [facility] [address] Performing Lab: [facility] [address] [facility] [address] TIBC 381 204-475 IRON 64 40-160 Transferrin Saturation 16.8 L 20.0-50 .0 Jun 08, 2022 [facility] MICROALBUMIN Specimen Type: URINE 07:39 [facility] CREATININE RATIO PANEL No commen t entered. Ordering Provid er: MELANIA RAMOS Report Released Date/Time: Feb 14, 2022 08:21 AM Reporting Lab: [facility] [address] [facility] [address] Performing Lab: [place] [facility] [address] [facility] [address] MICROALBUMIN/CREATININE RATIO 316.8 H 0-29.9 MICROALBUMIN,QUANTITATIVE 24.7 RR U NAVAIL CREATININE URINE 77.97 Jun 08, 2022 [facility] HEMOGLOBIN A1C Specimen Type: BLOOD 07:39 AM [...] [facility] [address] [facility] [address] Performing Lab: [facility] [address] [facility] [address] HEMOGLOBIN A1C 9.4 H 4.0-5.6 Jun 08, 2022 [place] [facility] BASIC METABOLIC PANEL Specimen Type: SERUM 07:39 AM [facility] (non-fasting) No comment enter ed. Ordering Provid er: MELANIA RAMOS Report Released Date/Time: Feb 14, 2022 08:21 AM Reporting Lab: [place] [facility] [address] [facility] [address] Performing Lab: [place] [facility] [place] [facility] [address] [facility] [address] UREA NITROGEN 24 7-25 GLUCOSE 230 H 65-100 SODIUM 136 135-145 POTASSIUM 5.2 H 3.5-5.0 CHLORIDE 104 100-110 CO2 23 20-30 CREATININE, Serum 1.66 H 0.50-1.40 eGFR(CKD-EPI 2020) 44 L >60 Jun 08, 2022 07:39 AM [facility] [place] CBC Specimen Type: BLOOD HCS No comment enter ed. Ordering Provid er: MELANIA RAMOS Report Released Date/Time: Feb 14, 2022 08:21 AM Reporting Lab: [place] [facility] [place] [facility] [address] [facility] [address] Performing Lab: [place] [facility] [place] [facility] [address] [facility] [address] WBC 7.26 4.50-11.00 RBC 5.31 4.23-5.66 HGB 13.9 12.8-17 HCT 43.1 39.2-50.4 MCV 81.2 L 82-99 MCHC 32.3 30.8-35.1 PLT 280 140-360 RDW-CV 15.5 12.0-16.0 MCH 26.2 26.2-32.6 Jun 08, 2022 07:39 AM [facility] LIPID PANEL FASTING Speci men Type: SERUM No comment enter ed. Ordering Provid er: AMBIKA KNIGHT Report Released Date/Time: Jun 06, 2022 03:16 PM Reporting Lab: [place] [facility] [place] [facility] [address] [facility] [address] Performing Lab: [place] [facility] [address] [facility] [address] CHOLESTEROL 146 <7-199 TRIGLYCERIDE 238 H 0-150 LDL calculated 67 0-129 CHOL/HDL 4.7 HDL CHOLESTEROL 31 L 40-60 Jun 08, 2022 07:39 AM [facility] BASIC METABOLIC PANEL Spe cimen Type: SERUM (fasting) No comment enter ed. Ordering Provid er: AMBIKA KNIGHT Report Released Date/Time: Jun 06, 2022 03:16 PM Reporting Lab[facility] [address] [facility] [address] Performing Lab: [facility] [address] [facility] [address] UREA NITROGEN 24 7-25 GLUCOSE 230 H [...] dy Source Pressure Rate Mass Index Jul 04, 97.7 F 90 120/66 24 /min 98 % 237 lb 36 [place] 2021 03:12 /min mm[Hg] [facility] Social History: Smoking Status (Most current) [...] 11, 2021 01:18 PM VA-TOBACCO NEVER USED [place] [facility] Encounter Notes: All associated encounter notes This section contains the clinical notes associated to the Encounter. Date/Time Encounter Note(s) Provider Source Jul 04, 2022 03:38 PM NURSING OUTPATIENT NOTE[facility]: NURSING/SPECIALTY CLINIC NOTE [facility] STANDARD TITLE: NURSING OUTPATIENT NOTE DATE OF NOTE: JUL 04, 2022@15:38 ENTRY DATE: JUL 04, 2022@15:38:17 AUTHOR: STONE CASTRO EXP COSIGNER: URGENCY: STATUS: COMPLETED Patient visit with spouse on education for Ozemp ic injections. Demonstration given and return demonstration given by spouse. Both patient and spouse understand the process and the reason behind him taking Ozempic. Patient sent home with Ozempic injection schedule for the nex t 6 weeks for initial start. Spouse injected 0.25mg of O zempic SQ to abdomen. Pt. tolerated procedure well. /es/ STONE CASTRO RN Signed: 07/04/2022 15:49
--- OUTSIDE RECORDS SUMMARY | 2022-07-08 12:45 | XMS_ITS | Encounter Summary ---
:1950 Author Organization Department of [facility] rs Address [address] [place] [id number] Support Name Relationship Address Phone THANIA BERGER Unavailable [address] [place] [address] [place] [address] AMELIA BERGER Unavailable [address] [place] [address] Insurance Providers: All historical and current Section [...] AARP INS PRESCRIPT MEDIC Sep 16, PDPIND [id number] [phone] YESSI BERGERZhane PATIENT ION ARE D 2017 [address] [facility] Jul 17, MEDICAI [id number] [id number] DAYAMI BERGER PATIENT EALTH 2014 D [id number] IS STAND CHRISTOPHER MEDICARE MEDICARE PART Sep 16, PART A [id number] [phone] Rosmery BERGER PATIENT (WNR) (M) A 2010 00 IS MEDICARE MEDICARE PART Sep 16, PART B [id number] [phone] Rosmery BERGER PATIENT (WNR) (M) B 2010A 00 IS MEDICARE MEDICARE PART Sep 16, PART A [id number] Rosmery BERGER PATIENT (WNR) (M) A 2010 XH29 2 IS MEDICARE MEDICARE PART Sep 16, PART B [id number] Rosmery BERGER PATIENT (WNR) (M) B 2010 [id number] 2 IS Selected Encounter This section includes the information on record at [place] for the Encounter. Date/Time Encounter Type Encounter Reason Provider Source Description Jul 05, 2022 OFFICE O/P EST PRIMARY ICD-10-CM L89.90 AMBIKA KNIGHT 01:30 PM MOD 30-39 MIN CARE/MEDICINE Pressure ulcer of unspecified site, unspecified stage with Provider Comments: Pressure Ulcer of unspecified site, unspecified Stage IHE Encounter Template Text not used by [facility] Assessments - Encounter Diagnoses This section includes the primary and secondary diagnoses documented for the Encounter. Date/Time Primary/Secondary Diagnosis Name Provider Source Diagnosis Jul 05, 2022 PRIMARY Pressure ulcer of AMBIKA KNIGHT 02:17 PM unspecified site, unspecified stage Jul 05, 2022 SECONDARY Cerebellar stroke AMBIKA KNIGHT 02:17 PM syndrome Jul 05, 2022 SECONDARY Type 2 diabetes AMBIKA KNIGHTFIELD 02:17 PM mellitus with unspecified complications Plan of Treatment: Future Appointments (+ 6 months) and Future Tests (+/- 45 days) The Plan of Treatment section includes future care activities for the patient from all [place] treatmentfacilities. This section includes future appointments and future orders which are active, pending orscheduled.Future Appointments This section includes appointments that were scheduled to occur 6 months from the date of the Encounter, up to a maximum of 20 appointments. The data comes from all [place] treatment facilities. Appointment Date/Time Appointment Type Appointment Facili ty Name Sep 05, 2022 03:30 PM [facility] - [facility] [place] Oct 03, 2022 03:00 PM [facility] Oct 10, 2022 03:00 PM [facility] Dec 06, 2022 03:30 PM AMBULATORY MEDICINE [facility] Lab Results: +/- 30 days [...] Reference Range Comment Jun 08, 2022 07:39 [facility] [place] FERRITIN S pecimen Type: SERUM AM [facility] No comment enter ed. Ordering Provid er: RAMOS,MELANIA A Report Released Date/Time: Feb 14, 2022 08:21 AM Reporting Lab: [facility] [place] [facility] [address] [facility] [address] Performing Lab: [facility] [place] [facility] [address] [facility] [address] FERRITIN 20.5 20-300 Jun 08, 2022 [facility] IRON & TIBC PANEL Specimen Type : SERUM 07:39 AM [place] [facility] No comment enter ed. Ordering Provid er: MELANIA RAMOS Report Released Date/Time: Feb 14, 2022 08:21 AM Reporting Lab: [facility] [place] [facility] [address] [facility] [address] Performing Lab: [facility] [place] [facility] [address] [facility] [address] TIBC 381 204-475 IRON 64 40-160 Transferrin Saturation 16.8 L 20.0-50 .0 Jun 08, 2022 [facility] MICROALBUMIN Specimen Type: URINE 07:39 AM [facility] CREATININE RATIO PANEL No commen t entered. Ordering Provid er: MELANIA RAMOS Report Released Date/Time: Feb 14, 2022 08:21 AM Reporting Lab: [facility] [place] [facility] [address] [facility] [address] Performing Lab: [facility] [place] [facility] [address] [facility] [address] MICROALBUMIN/CREATININE RATIO 316.8 H 0-29.9 MICROALBUMIN,QUANTITATIVE 24.7 RR U NAVAIL CREATININE URINE 77.97 Jun 08, 2022 [facility] HEMOGLOBIN A1C Specimen Type: BLOOD 07:39 AM [...] Jun 06, 2022 03:16 PM Reporting Lab: [facility] [place] [facility] [address] [facility] [address] Performing Lab: [facility] [place] [facility] [address] [facility] [address] HEMOGLOBIN A1C 9.4 H 4.0-5.6 Jun 08, 2022 [facility] BASIC METABOLIC PANEL Specimen Type: SERUM 07:39 AM [place] [facility] (non-fasting) No comment enter ed. Ordering Provid er: MELANIA RAMOS Report Released Date/Time: Feb 14, 2022 08:21 AM Reporting Lab: [facility] [place] [facility] [address] [facility] [address] Performing Lab: [facility] [place] [facility] [address] [facility] [address] UREA NITROGEN 24 7-25 GLUCOSE 230 H [...] Feb 14, 2022 08:21 AM Reporting Lab: [facility] [place] [facility] [address] [facility] [address] Performing Lab: [facility] [place] [facility] [address] [facility] [address] WBC 7.26 4.50-11.00 RBC 5.31 4.23-5.66 HGB 13.9 12.8-17 HCT 43.1 39.2-50.4 MCV 81.2 L 82-99 MCHC 32.3 30.8-35.1 PLT 280 140-360 RDW-CV 15.5 12.0-16.0 MCH 26.2 26.2-32.6 Jun 08, 2022 07:39 AM [facility] LIPID PANEL FASTING Speci men Type: SERUM No comment enter ed. Ordering Provid er: AMBIKA KNIGHT Report Released Date/Time: Jun 06, 2022 03:16 PM Reporting Lab: [facility] [address] [facility] [address] Performing Lab: [address] [address] CHOLESTEROL 146 <7-199 TRIGLYCERIDE 238 H 0-150 LDL calculated 67 0-129 CHOL/HDL 4.7 HDL CHOLESTEROL 31 L 40-60 Jun 08, 2022 07:39 AM [facility] BASIC METABOLIC PANEL Spe cimen Type: SERUM (fasting) No comment enter ed. Ordering Provid er: AMBIKA KNIGHT Report Released Date/Time: Jun 06, 2022 03:16 PM Reporting Lab: [address] [address] Performing Lab: [address] [address] UREA NITROGEN 24 7-25 GLUCOSE 230 H [...] dy Source Pressure Rate Mass Index Jul 05 129/71 0 /min 99 % 237 lb 36 2021 01:50 /min mm[Hg] IELD PM Social History: Smoking [...] Comment Facility February 03, 2019 10:28 AM [place]-TOBACCO NEVER USED [facility] Tobacco Use History This section includes a history of the smoking, or tobacco- related health factors, that were collected on or before the date of the Encounter. The data comes from the [place] facility where the Encounter took place. Date/Time Smoking Status/Tobacco Use Comment [facility] Jan 13, 2018 09:49 AM LIFETIME NON-TOBACCO USER [facility] Jan 04, 2017 10:17 AM LIFETIME NON-TOBACCO USER [facility] Dec 23, 2015 08:49 AM LIFETIME NON-TOBACCO USER [facility] Nov 27, 2005 02:55 PM LIFETIME NON-TOBACCO USER [facility] patient reportssmoking only crac zaira pickett January 22, 2003 10:42 AM LIFETIME NON-SMOKER [facility] Aug 18, 2001 01:54 PM LIFETIME NON-TOBACCO USER [facility] pt states he has never smoked May 14, 2001 02:23 PM LIFETIME NON-SMOKER [facility] Encounter Notes: All associated encounter notes This section contains the clinical notes associated to the Encounter. Date/Time Encounter Note(s) Provider Source Jul 05, 2022 01:48 PM PHYSICIAN NOTE: AMBIKA KNIGHT LOCAL TITLE: MD NOTE STANDARD TITLE: PHYSICIAN NOTE DATE OF NOTE: JUL 05, 2022@13:48 ENTRY DATE: JUL 05, 2022@13:49:01 AUTHOR: AMBIKA KNIGHT EXP COSIGNER: URGENCY: STATUS: COMPLETED Blood Pressure: 129/71 Pain: 5 (06/14/2022 13:45) Patient Height: 68 in [172.7 cm] (06/14/2022 13: 45) Patient Weight: 237 lb [107.50 kg] (07/04/2022 1 5:12) Pulse: 90 (07/04/2022 15:12) Respiration: 24 (07/04/2022 15:12) Temperature: 97.7 F [36.5 C] (07/04/2022 15:12) Pt arrives with girlfriend who is pleasant and h elpful CC: diabetic/pressure ulcer History of Present Illness: 1. left great wound -improving w/wound care -he went to wound care for two weeks -the wound started drainage a scant about today Medications were reviewed and reconciled. Active Outpatient Medications (including Supplie s): Active Outpatient Medications Status 1) FERROUS SULFATE 325MG TAB TAKE ONE TABLET BY MOUTH ACTIVE (S) ONCE DAILY TO SUPPLEMENT IRON 2) 3) INSULIN,ASPART 100UN/ML KELLY FLEXPEN 3ML INJE CT 25 ACTIVE UNITS SUBCUTANEOUSLY THREE TIMES A DAY 4) INSULIN,GLARGINE 100 UNT/ML 3ML SOLOSTAR INJE CT 75 HOLD UNITS SUBCUTANEOUSLY ONCE DAILY FOR DIABETES 5) NEEDLE,PEN 32G,4MM USE 1 NEEDLE SUBCUTANEOUSL Y EVERY ACTIVE 7 DAYS FOR USE WITH PEN DEVICE 6) SEMAGLUTIDE 0.5MG/0.375ML INJ PEN 1.5ML INJEC T 0.25MG ACTIVE SUBCUTANEOUSLY ONCE A WEEK FOR 28 DAYS, THEN IN JECT 0.5MG ONCE A WEEK 8) TADALAFIL 10MG TAB TAKE ONE TABLET BY MOUTH O NCE ACTIVE DAILY NEEDED Active Non-VA Medications Status 1) Non-VA ALCOHOL PREP PAD 1 PAD TOPICALLY FOUR TIMES A ACTIVE DAY 2) Non-VA APIXABAN 5MG TAB 5MG BY MOUTH ONCE MEMO LY ACTIVE 3) Non-VA ASPIRIN 81MG EC TAB 81MG BY MOUTH LEONARDA Y ACTIVE 4) Non-VA FEXOFENADINE HCL 60MG TAB 60MG BY MOUT H ONCE ACTIVE DAILY 5) Non-VA FINASTERIDE 5MG TAB 5MG BY MOUTH ONCE DAILY ACTIVE 6) Non-VA MAGNESIUM OXIDE TAB 400MG BY MOUTH TWI CE DAILY ACTIVE 7) Non-VA METOPROLOL TARTRATE 12.5MG TAB G BY MO UTH ACTIVE TWICE DAILY 8) Non-VA MIDODRINE HCL 10MG TAB 10MG BY MOUTH T WICE ACTIVE DAILY 9) Non-VA MIRABEGRON PA-F TAB,SA 25 BY MOUTH ONCE ACTIVE DAILY 10) Non-VA PANTOPRAZOLE NA 40MG EC TAB 40MG BY M OUTH ACTIVE EVERY MORNING 30 MINUTES BEFORE BREAKFAST 12) Non-VA VITAMIN B COMPLEX CAP,ORAL BY MOUTH O N SATURDAY ACTIVE rosuvastatin 40mg daily Review of Systems: chest pain no dyspnea no hematuria no hematochezia no Social Hx: SERVICE CONNECTED % - NONE FOUND he has a girlfriend. He stopped all substance ab use @04/2010.+ children and grandchildren. Allergies: GABAPENTIN, PEANUTS Physical Exam: pleasant. pt ambulates with jen tance-cane. Alert and oriented X3 HEENT: No cervical adenopathy or thyromegaly. Lungs: Clear to auscultation bilaterally. Good a ir movement. Cor: Regular rate and rhythm. No murmur, gallop or rub. Abd: Soft. Nontender. Normal active bowel sounds . No organomegaly. plantar surface of left great toe w/calloused sh allow ulcer. area of denuded blister distal to ulcer w/dried clear yellowish exudate on bandage Neuro: +ataxic gait. +dysarthria All labs, diagnostic tests, and medicati on changes were reviewed and discussed with patient. The patient verbalized oscari priscilla. ASSESSMENT AND PLAN: 1. Diabetes: not optimally controlled but impro ving down to 9.4 from >10 6 +months ago -continue f/u w/endocrine next appt 2. Hypotension: resolved when stopped doxazosin last visit 3. 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 renal insufficiency: clinically stable with f/u scheduled w/nephrology 5. chronic wound: he was d/ c'ed from wound care. he has f/u w/podiatry 08/2022 Return to clinic 01/2023 without labs Depression Screening: Perform PHQ-2 A PHQ-2 screen was performed. The score was 0 w hich is a negative screen for depression. Over the past two weeks, how often have you bee n bothered by the following problems? 1. Little interest or pleasure in doing things Not at all 2. Feeling down, depressed, or hopeless Not at all Suicide Screen: C-SSRS Screening [place]-Suicide Severity Rating Scale (C-SSRS Screener) 1. Over the past month, have you wished you wer e or wished you could go to sleep and not wake up? No 2. Over the past month, have you had any actual thoughts of killing yourself? No 3. Over the past month, have you been thinking about how you might do this? Response not required due to responses to other questions. 4. Over the past month, have you had these thou ghts and had some intention of acting on them? Response not required due to responses to other questions. 5. Over the past month, have you started to wor k out or worked out the details of how to kill yourself? Response not required due to responses to other questions. 6. If yes, at any time in the past month did yo u intend to carry out this plan? Response not required due to responses to other questions. 7. In your lifetime, have you ever done anythin g, started to do anything, or prepared to do anything to end you r life (for example, collected pills, obtained a gun, gave away valu jeancarlos, went to the roof but didn't jump)? No 8. If YES, was this within the past 3 months? Response not required due to responses to other questions. Medication Reconciliation: Outpatient: Has the patient been taking medications as docu mented in the EMLR? No: Discrepencies were identified. See below. Essential Medication List for Review used to co mplete this medication reconciliation. INCLUDED IN THIS LIST: Alphabetical list of act joe outpatient prescriptions dispensed from this [place] (local) an d dispensed from another [place] or [facility] facility (remote) as well as inpatien [...] provider. Allergies/ADRs (Tool #5) FACILITY ALLERGY/ADR -------- [facility] [place] [facility] GABAPENTIN [facility] [place] [facility] NO KNOWN ALLERGIES Med Recon NoGlossary (Tool #1) INCLUDED IN THIS LIST: Alphabetical list of act joe outpatient prescriptions dispensed from this [place] (local) an d dispensed from another [place] or [facility] facility (remote) as well as inpatien t orders (local pending and active), local clinic medications, locally docu mented non-VA medications, and local prescriptions that have or be en discontinued in the past 90 days. Non-VA Meds Last Documented On: Jul 05, 2022 NOTE The display of VA prescriptions disp ensed from another [place] or [facility] facility (remote) is limited to active outp atient prescription entries matched to National Drug File at the [facility] and may not include some items such as investigational drugs, compo unds, etc. NOT INCLUDED IN THIS LIST: Medications self-ent ered by the patient into personal health records (i.e. Selleration) ar e NOT included in this list. Non-VA medications documented outside [facility], remote inpatient orders (regardless of status) and remote clinic medications are NOT included in this list. The patient and provider must always discuss medications the patient is taking, regardless o f where the medication was dispensed or obtained. Non-VA APIXABAN 5MG TAB TAKE ONE TABLET BY MOUTH ONCE DAILY Non-VA ASPIRIN 81MG EC TAB TAKE ONE TABLET BY MOUTH DAILY OUTPT FERROUS SULFATE 325MG TAB (Status = Activ e/Suspended) TAKE ONE TABLET BY MOUTH ONCE DAILY TO SUPPLEME NT IRON Rx# [id number] Last Released: / Supply: Rx Expiration Date: 07/05/23 Refills Remainin Non-VA FEXOFENADINE HCL 60MG TAB TAKE ONE TABLET BY MOUTH ONCE DAILY Non-VA FINASTERIDE 5MG TAB TAKE ONE TABLET BY MOUTH ONCE DAILY OUTPT GLUCAGON 1MG/JEY INJ EMERGENCY KIT (Statu s = ) INJECT 1 INJECTION INTRAMUSCULARLY ONE TIME NEEDED FOR SEVERE LOW BLOOD SUGAR Rx# [id number] Last Released: 01/26/22 Qty/Days Sup ply: Rx Expiration Date: 04/23/22 Refills Remainin OUTPT INSULIN,ASPART 100UN/ML KELLY FLEXPEN 3ML (Status = Discontinued) INJECT 25 UNITS SUBCUTANEOUSLY THREE TIMES A DA Y Rx# [id number] Last Released: 01/25/22 Qty/Days Sup ply: Rx Expiration Date: 01/24/23 Refills Remainin OUTPT INSULIN,ASPART 100UN/ML KELLY FLEXPEN 3ML (Status = Active) INJECT 25 UNITS SUBCUTANEOUSLY THREE TIMES A DA Y Rx# [id number] Last Released: 06/18/22 Qty/Days Sup ply: Rx Expiration Date: 06/15/23 Refills Remainin OUTPT INSULIN,GLARGINE 100 UNT/ML 3ML SOLOSTAR (Status = Discontinued) INJECT 68 UNITS SUBCUTANEOUSLY ONCE DAILY FOR D IABETES Rx# [id number] Last Released: 01/25/22 Qty/Days Sup ply: Rx Expiration Date: 01/24/23 Refills Remainin OUTPT INSULIN,GLARGINE 100 UNT/ML 3ML SOLOSTAR (Status = On Hold) INJECT 75 UNITS SUBCUTANEOUSLY ONCE DAILY FOR D IABETES Rx# [id number] Last Released: Qt Supply: Rx Expiration Date: 06/15/23 Refills Remainin Non-VA MAGNESIUM OXIDE TAB TAKE 400MG BY MOUTH TWICE DAILY Non-VA MIDODRINE HCL 10MG TAB TAKE ONE TABLET BY MOUTH TWICE DAILY Non-VA MIRABEGRON 25MG SA TAB TAKE ONE TABLET BY MOUTH ONCE DAILY Non-VA PANTOPRAZOLE NA 40MG EC TAB TAKE ONE TABLET BY MOUTH EVERY MORNING 30 MINUT ES BEFORE BREAKFAST Non-VA PANTOPRAZOLE NA 40MG EC TAB TAKE ONE TABLET BY MOUTH EVERY MORNING 30 MINUT ES BEFORE BREAKFAST OUTPT SEMAGLUTIDE 0.5MG/0.375ML INJ PEN 1.5ML ( Status = Active) INJECT 0.25MG SUBCUTANEOUSLY ONCE A WEEK FOR 28 DAYS, THEN INJECT 0.5MG ONCE A WEEK Rx# [id number] Last Released: 07/02/22 Qty/Days Mcconnell pply: 10/13 Rx Expiration Date: 06/15/23 Refills Remainin OUTPT TADALAFIL 10MG TAB (Status = Discontinued ) TAKE ONE TABLET BY MOUTH ONCE DAILY NEEDED Rx# [id number] Last Released: 01/25/22 Qty/Days Mcconnell pply: 01/13 Rx Expiration Date: 01/24/23 Refills Remainin OUTPT TADALAFIL 10MG TAB (Status = Active) TAKE ONE TABLET BY MOUTH ONCE DAILY NEEDED Rx# [id number] Last Released: 06/16/22 Qty/Days Mcconnell pply: 01/13 Rx Expiration Date: 06/15/23 Refills Remainin Non-VA VALSARTAN 40MG TAB TAKE ONE TABLET BY MOUTH ONCE DAILY Non-VA VITAMIN B COMPLEX CAP,ORAL TAKE BY MOUTH ON SATURDAY SUPPLIES Non-VA ALCOHOL PREP PAD USE 1 PAD TOPICALLY FOUR TIMES A DAY OUTPT GLUCOSE SENSOR FREESTYLE ANTOINE 2 (Status = Discontinued) USE 1 SENSOR DIRECTED EVERY 14 DAYS Rx# [id number] Last Released: 06/16/22 Qty/Days Sup ply: 11/13 Rx Expiration Date: 01/24/23 Refills Remainin OUTPT GLUCOSE SENSOR FREESTYLE ANTOINE 2 (Status = Active/Suspended) USE 1 SENSOR DIRECTED EVERY 14 DAYS Rx# [id number] Last Released: 06/27/22 Qty/Days S upply: 11/13 Rx Expiration Date: 06/15/23 Refills Remainin OUTPT LANCET,SOFTCLIX (Status = ) USE 1 LANCET DIRECTED THREE TIMES A DAY TO T EST BLOOD SUGAR Rx# [id number] Last Released: 04/10/21 Qty/Days Mcconnell pply: / Rx Expiration Date: 04/07/22 Refills Remainin OUTPT NEEDLE,PEN 32G,4MM (Status = ) USE 1 NEEDLE SUBCUTANEOUSLY FOUR TIMES A DAY FO R USE WITH INSULIN PENS Rx# [id number] Last Released: 04/11/21 Qty/Days Mcconnell pply: 400/90 Rx Expiration Date: 04/07/22 Refills Remainin OUTPT NEEDLE,PEN 32G,4MM (Status = Active) USE 1 NEEDLE SUBCUTANEOUSLY EVERY 7 DAYS FOR US E WITH PEN DEVICE Rx# [id number] Last Released: 07/02/22 Qty/Days Mcconnell pply: 100/90 Rx Expiration Date: 09/12/22 Refills Remainin OUTPT SKIN BARRIER WIPE TORBOT SKIN TAC (Status = Active) USE 1 WIPE TOPICALLY EVERY 14 DAYS Rx# [id number] Last Released: 01/30/22 Qty/Days Sup ply: 50/90 Rx Expiration Date: 01/27/23 Refills Remainin /jamal/ Ambika Knight M.D. STAFF PHYSICIAN Signed: 07/05/2022 14:17
--- OUTSIDE RECORDS SUMMARY | 2022-07-08 12:45 | XMS_ITS ---
:1950 Author Organization Department of [facility] rs Address [address] [place] [id number] Support Name Relationship Address Phone GONZÁLEZ BERGERSON Rosmery Unavailable [address] [place] [address] [place] [address] CELINEAMELIA Unavailable [address] [place] [address] Insurance Providers: All historical and current Section [...] AARP INS PRESCRIPT MEDIC Sep 16, PDPIND [id number] [phone] YESSI BERGERZhane PATIENT ION ARE D 2017 [id number] IS MEDICAID MEDICAID [facility] Jul 17, MEDICAI [id number] [id number] DAYAMI BERGER PATIENT EALTH 2014 D [id number] IS STAND CHRISTOPHER MEDICARE MEDICARE PART Sep 16, PART A [id number] [phone] Rosmery BERGER PATIENT (WNR) (M) A 2010 00 IS MEDICARE MEDICARE PART Sep 16, PART B [id number] [phone] Rosmery BERGER PATIENT (WNR) (M) B [id number] 00 IS MEDICARE MEDICARE PART Sep 16, PART A [id number] Rosmery BERGER PATIENT (WNR) (M) A 2010 [id number] 2 IS MEDICARE MEDICARE PART Sep 16, PART B [id number] Rosmery BERGER PATIENT (WNR) (M) B 2010 [id number] 2 IS Selected Encounter This section includes the information on record at DC for the Encounter. Date/Time Encounter Type Encounter Reason Provider Source Description Jul 04, 2022 OFFICE O/P EST RENAL/NEPHROL(EXC ICD-10-CM N18.9 LISA VELARDE 03:00 PM HI 40-54 MIN EPT DIALYSIS) Chronic kidney EY A disease, unspecified with Provider Comments: Chronic kidney disease ([facility] [id number]) IHE Encounter Template Text not used by DC Assessments - Encounter Diagnoses This section includes the primary and secondary diagnoses documented for the Encounter. Date/Time Primary/Secondary Diagnosis Name Provider Source Diagnosis Jul 04, 2022 PRIMARY [facility]36 PM disease, [facility] unspecified Jul 04, 2022 SECONDARY Essential [facility] PM (primary) [facility] hypertension Jul 04, 2022 SECONDARY Hyperlipidemia, [facility] TRN 03:36 PM unspecified [facility] Jul 04, 2022 SECONDARY Overweight [facility] 03:36 PM [facility] Jul 04, 2022 SECONDARY Type 2 diabetes [facility] 03:36 PM mellitus with [facility] unspecified complications Plan of Treatment: Future Appointments (+ 6 months) and Future Tests (+/- 45 days) The Plan of Treatment section includes future care activities for the patient from all DC treatmentfacilities. This section includes future appointments and future orders which are active, pending orscheduled.Future Appointments This section includes appointments that were scheduled to occur 6 months from the date of the Encounter, up to a maximum of 20 appointments. The data comes from all DC treatment facilities. Appointment Date/Time Appointment Type Appointment Facili ty Name Jul 05, 2022 01:30 PM AMBULATORY - [facility]ICINE [facility] Sep 05, 2022 03:30 PM [facility]ULATORY MEDICINE [facility] Oct 03, 2022 03:00 PM AMBULATORY MEDICINE [facility] Oct 10, 2022 03:00 PM AMBULATORY MEDICINE [facility] Dec 06, 2022 03:30 PM [facility] Lab Results: +/- 30 days of [...] Feb 14, 2022 08:21 AM Reporting Lab: [facility] [address] [facility] [address] Performing Lab: [facility] [address] [facility] [address] FERRITIN 20.5 20-300 Jun 08, 2022 [facility] IRON & TIBC PANEL Specimen Type : SERUM 07:39 AM [facility] No comment enter ed. Ordering Provid er: MELANIA RAMOS Report Released Date/Time: Feb 14, 2022 08:21 AM Reporting Lab: [facility] [address] [facility] [address] Performing Lab: [facility] [address] [facility] [address] TIBC 381 204-475 IRON 64 40-160 Transferrin Saturation 16.8 L 20.0-50 .0 Jun 08, 2022 [facility] MICROALBUMIN Specimen Type: URINE 07:39 AM [facility] CREATININE RATIO PANEL No commen t entered. Ordering Provid er: MELANIA RAMOS Report Released Date/Time: Feb 14, 2022 08:21 AM Reporting Lab: [facility] [address] [facility] [address] Performing Lab: [facility] [address] [facility] [address] MICROALBUMIN/CREATININE RATIO 316.8 H 0-29.9 MICROALBUMIN,QUANTITATIVE 24.7 RR U [facility] CREATININE URINE 77.97 Jun 08, 2022 [facility] BASIC METABOLIC PANEL Specimen Type: [facility] 07:39 [facility] (non-fasting[facility] No comment enter ed. Ordering Provid er: MELANIA RAMOS Report Released Date/Time: Feb 14, 2022 08:21 AM Reporting Lab: [facility] [place] [facility] [address] [facility] [address] Per[facility] [address] [facility] [address] UREA NITROGEN 24 7-25 GLUCOSE 230 H 65-100 SODIUM 136 135-145 POTASSIUM 5.2 H 3.5-5.0 CHLORIDE 104 100-110 CO2 23 20-30 CREATININE, Serum 1.66 H 0.50-1.40 eGFR(CKD-EPI 2020) 44 L >60 Jun 08, 2022 [facility] HEMOGLOBIN A1C Specimen Type: BLOOD 07:39 AM [...] Jun 06, 2022 03:16 PM Reporting Lab: [facility] [address] [facility] [address] Performing Lab: [facility] [address] [facility] [address] HEMOGLOBIN A1C 9.4 H 4.0-5.6 Jun 08, 2022 07:39 AM [facility] LIPID PANEL FASTING Speci men Type: SERUM No comment enter ed. Ordering Provid er: AMBIKA KNIGHT Report Released Date/Time: Jun 06, 2022 03:16 PM Reporting Lab: [facility] [address] [facility] [address] Performing Lab[facility] [address] [facility] [address] CHOLESTEROL 146 <7-199 TRIGLYCERIDE 238 H 0-150 LDL calculated 67 0-129 CHOL/HDL 4.7 HDL CHOLESTEROL 31 L 40-60 Jun 08, 2022 07:39 AM [facility] [place] CBC Specimen Type: BLOOD HCS No comment enter ed. Ordering Provid er: MELANIA RAMOS Report Released Date/Time: Feb 14, 2022 08:21 AM Reporting Lab: [facility] [place] [facility] [address] [facility] [address] Performing Lab: [facility] [address] [facility] [address] WBC 7.26 4.50-11.00 RBC 5.31 4.23-5.66 HGB 13.9 12.8-17 HCT 43.1 39.2-50.4 MCV 81.2 L 82-99 MCHC 32.3 30.8-35.1 PLT 280 140-360 RDW-CV 15.5 12.0-16.0 MCH 26.2 26.2-32.6 Jun 08, 2022 07:39 AM [facility] BASIC METABOLIC PANEL Spe cimen Type: SERUM (fasting) No comment enter ed. Ordering Provid er: AMBIKA KNIGHT Report Released Date/Time: Jun 06, 2022 03:16 PM Reporting Lab: [facility] [place] [facility] [address] [facility] [address] Performing Lab: [facility] [place] [facility] [address] [facility] [address] UREA NITROGEN 24 7-25 GLUCOSE 230 H [...] 24 /min 98 % 237 lb 36 DC 2021 03:12 /min mm[Hg] [facility] PM [facility] Social History: Smoking Status (Most [...] [facility] USED [facility] [place] [facility] Encounter Notes: All associated encounter notes This section contains the clinical notes associated to the Encounter. Date/Time Encounter Note(s) Provider Source Jul 04, 2022 11:47 NEPHROLOGY E & M NOTE: MELANIA RAMOS [facility] AM LOCAL TITLE: NEPHROLOGY NOTE [facility] [facility] STANDARD TITLE: NEPHROLOGY E & M NOTE DATE OF NOTE: JUL 04, 2022@11:47 ENTRY DATE: JUL 04, 2022@11:47:55 AUTHOR: MELANIA RAMOS EXP COSIGNER: URGENCY: STATUS: COMPLETED Nephrology Note [...] the adjustment of h is diabetes meds. He is scheduled to start a new hypo-glycemic med today . Medications: Active and Recently Outpatient Medicatio ns (excluding Supplies): Active Outpatient Medications Status 1) INSULIN,ASPART 100UN/ML KELLY FLEXPEN 3ML INJE CT 25 ACTIVE UNITS SUBCUTANEOUSLY THREE TIMES A DAY 2) INSULIN,GLARGINE 100 UNT/ML 3ML SOLOSTAR INJE CT 75 HOLD UNITS SUBCUTANEOUSLY ONCE DAILY FOR DIABETES 3) SEMAGLUTIDE 0.5MG/0.375ML INJ PEN 1.5ML INJEC T 0.25MG ACTIVE SUBCUTANEOUSLY ONCE A WEEK FOR 28 DAYS, THEN IN JECT 0.5MG ONCE A WEEK 4) TADALAFIL 10MG TAB TAKE ONE TABLET BY MOUTH O NCE ACTIVE DAILY NEEDED Active Non-VA Medications Status 1) Non-VA APIXABAN 5MG TAB 5MG BY MOUTH ONCE MEMO LY ACTIVE 2) Non-VA ASPIRIN 81MG EC TAB 81MG BY MOUTH LEONARDA Y ACTIVE 3) Non-VA FEXOFENADINE HCL 60MG TAB 60MG BY MOUT H ONCE ACTIVE DAILY 4) Non-VA FINASTERIDE 5MG TAB 5MG BY MOUTH ONCE DAILY ACTIVE 5) Non-VA MAGNESIUM OXIDE TAB 400MG BY MOUTH TWI CE DAILY ACTIVE 6) Non-VA METOPROLOL TARTRATE 25MG TAB 25MG BY M [facility] ACTIVE TWICE DAILY 7) Non-VA MIDODRINE HCL 10MG TAB 10MG BY MOUTH T WICE ACTIVE DAILY 8) Non-VA MIRABEGRON PA-F TAB,SA ? BY MOUTH ONCE ACTIVE DAILY 9) Non-VA PANTOPRAZOLE NA 40MG EC TAB 40MG BY MO UTH ACTIVE EVERY MORNING 30 MINUTES BEFORE BREAKFAST 10) Non-VA VALSARTAN 40MG TAB 40MG BY MOUTH ONCE DAILY ACTIVE 11) Non-VA VITAMIN B COMPLEX CAP,ORAL BY MOUTH O N SATURDAY ACTIVE 15 Total Medications Vital Signs: As above General:Obese male alert, cooperative in NAD HEENT: NECK:supple; no JVD LUNGS:few rales on the post right lung field; no wheezing noted. Heart:RRR; no murmur/gallop ABD:Increased abdominal girth; +BS; soft; Ext:no lower leg edema; SKIN: Assessment and Plans: Areas to address in the evaluation and managemen t of the patient's CKD and to reduce renal disease progression is as fo [place]: #1. Chronic Kidney Disease S tage 3a: Review of the patient's labs from Jun 08, 2022 showed a normal bicarb( 23), Potassium(5.2), His creatinine was 1.74 has now dropped to 1.66. Because of his low GFR, the pat jazz's Metformin has been stopped. The patient's urine microalb/cr ratio w as 63 in February, 308 in January and 317 now. He will be starting new hypoglycemic ag ent which may inpact his proteinuria. Will reassess on return. The patien t will return in 3 months obtaining labs for that visit. #2. Hypotension: The patient blood press ure reportedly has been staying in the 120/60 range since taking midodrine and Metropro lol. today it was 120/66. THe patient's blood pressure is much better. @3. Diabetes: The patient hg bA1c was 9.4. The goal is <7.5. He is encouraged to continue his insulin along with dietary adjustments to improve his hgbA1c. His glucose is presently being controlled with insul in which he is encouraged to continure. The patient is to start Ozempic today for better glucose control. He should adhere a diabetic diet to help keep his glucose under better control. 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 #4. Hyperlipidemia: The patient's lipid studies this may showed a cholesterol of 146, and HDL of 31. He will dena nue his Atorvastatin and a heart healthy low fat diet. #5. Nutritional state/obesity: the patient's alb umin was 4.0 Oct which is normal. weight was 237= which is higher than john ired. He is encouraged to exercise and decrease his intake. A heart health y low fat diet may be very beneficial. #6. Anemia: the patient's H/ H= 13.9/43.1 p=81 this may. His H/H is normal. His H/H is normal but his mcv is low which might sug gest iron stores are low. His iron profile showed an iron of 64, jj tin of 20.5, TSAT of 16.8 aand TIBC of 381. Will start FESO4 325mg/day #7. CKD-MBD: the patient presently has no [...] VA (local) an d dispensed from another DC or DoD facility (remote) as well as [...] or non-VA provider. /jamal/ MELANIA RAMOS M.D. CV TECH DUMBWAITER OPERATOR Signed: 07/04/2022 15:36
--- OUTSIDE RECORDS SUMMARY | 2022-07-08 12:46 | XMS_ITS | Continuity of Care Document ---
:1950 Author Organization [facility] Address [address] [place] [address]- Care Team Providers Name Role Phone Arleth COLLINS, Manan Radford Primary Care Physician Encounter [facility] Date(s): 02/21/20 - 04/01/[address] [address]- [facility] Attending Physician: Jessica Tom MD Referring Physician: Jessica Tom MD Allergies, Adverse Reactions, Alerts Substance Reaction Severity Status Nuts Active Immunizations Given and Recorded Vaccine Date Status Refusal Reason pneumococcal 23-valent vaccine 05/08/10 Given Medications aspirin 325 mg oral delayed release tablet 650 mg, By Mouth, 3 times a day, Refills 0, Maintenance, 03/01/20 15:39:00 EDT Start Date: 03/01/20 Stop Date: 03/08/20 Status: Orderedcolchicine 0.6 mg oral tablet 0.6 mg, 1, tablet, By Mouth, 2 times a day, # 14 tablet, Refills 0, Tot. Refills 0, Maintenance, 03/01/20 15:40:00 EDT, Route to Pharmacy Electronically, [facility], 174, cm, 03/01/20 12:20:00 EDT, Height, 104.5, kg, 02/29/20 23:31:00 ED... Start Date: 03/01/20 Status: Orderedinsulin glargine 100 u/ml subcutaneous solution 0.3 mL = 30 units, Subcutaneous Injection, Daily at bedtime, 0 Refills, Maintenance, Injection Start Date: 07/07/13 Status: Orderedinsulin lispro 100 u/ml subcutaneous injection 2-10 units, Subcutaneous Injection, 3 times a day with meals and bedtime, << Sliding Scale Comments >> 150 - 199 2 units Call if less than 100 200 - 249 4 units 250 - 299 6 units 300 - 349 8 units 350 - 399 10 units Call if greater t... Start Date: 07/07/13 Status: OrderedmetFORMIN 500 mg oral tablet 2 tablet = 1,000 mg, By Mouth, 2 times a day, 0 Refills, Maintenance, 02/20/19 7:47:21 EDT Start Date: 02/20/19 Status: OrderedMetoprolol Tartrate 25 mg oral tablet 1 tablet = 25 mg, By Mouth, 2 times a day, # 180 tablet, 0 Refills, Maintenance, Tablet Start Date: 05/07/12 Status: Orderedpantoprazole 40 mg oral delayed release tablet = 40 mg, By Mouth, Every 12 hours, Protonix 40 mg twice daily for 1 week then Protonix 40 mg daily.,# 60 tablet, 0 Refills, Maintenance, 03/01/20 15:41:00 EDT, EC Tablet, 174, cm, 03/01/20 12:20:00 EDT, Height, 104.5, kg, 02/29/20 23:31:00 EDT, Dry W... Start Date: 03/01/20 Status: OrderedSildenafil See Instructions, PRN Other, 100 mg, 0 Refills, Maintenance, 02/20/19 7:51:53 EDT Start Date: 02/20/19 Status: Orderedsimvastatin 80 mg oral tablet 1 tablet = 80 mg, By Mouth, Daily at bedtime, # 30 tablet, 0 Refills, Maintenance, Tablet Start Date: 07/07/13 Status: Orderedterazosin 5 mg oral capsule 5 mg, 1, capsule, By Mouth, Daily at bedtime, Refills 0, Maintenance, 02/20/19 7:49:53 EDT Start Date: 02/20/19 Status: Ordered Problem List Condition Effective Dates Status Health Status Informant Acute Myocardial Infarction(Confirmed) 05/08/10 Active Social History Social History Type Response Smoking Status Never (less than 100 in life time) entered on: 01/26/20 Sex
--- OUTSIDE RECORDS SUMMARY | 2022-07-08 12:46 | XMS_ITS ---
:1950 Author Organization Department of [facility] rs Address [address] [place] [id number] Support Name Relationship Address Phone CELINE THANIA Rosmery Unavailable [address] [place] [address] [place] [address] CELINEAMELIA Unavailable [address] [place] [address] Insurance Providers: All historical and current Section [...] AARP INS PRESCRIPT MEDIC Sep 16, PDPIND [id number] [phone] YESSI BERGERZhane PATIENT ION ARE D 2017 [id number] IS MEDICAID MEDICAID [facility] Jul 17, MEDICAI [id number] [id number] DAYAMI BERGER PATIENT EALTH 2014 D [id number] IS STAND CHRISTOPHER MEDICARE MEDICARE PART Sep 16, PART A [id number] [phone] Rosmery BERGER PATIENT (WNR) (M) A 2010 00 IS MEDICARE MEDICARE PART Sep 16, PART B [id number] [phone] Rosmery BERGER PATIENT (WNR) (M) B 2010 00 IS MEDICARE MEDICARE PART Sep 16, PART A [id number] Rosmery BERGER PATIENT (WNR) (M) A 2010 [id number] 2 IS MEDICARE MEDICARE PART Sep 16, PART B [id number] Rosmery BERGER PATIENT (WNR) (M) B 2010 [id number] 2 IS Selected Encounter This section includes the information on record at [place] for the Encounter. Date/Time Encounter Type Encounter Reason Provider Source Description Jul 05, 2022 01:51 IMMUNIZATION ADMIN PRIMARY BRONWYN KNIGHT PM CARE/MEDICINE IHE Encounter Template Text not used by [place] Plan of Treatment: Future Appointments (+ 6 months) and Future Tests (+/- 45 days) The Plan of Treatment section includes future care activities for the patient from all [place] treatmentfacilities. This section includes future appointments and future orders which are active, pending orscheduled.Future Appointments This section includes appointments that were scheduled to occur 6 months from the date of the Encounter, up to a maximum of 20 appointments. The data comes from all [place] treatment facilities. Appointment Date/Time Appointment Type Appointment Facili ty Name Sep 05, 2022 03:30 PM AMBULATORY MEDICINE [facility] Oct 03, 2022 03:00 PM [facility]ULATORY MEDICINE [facility] [place] [facility] Oct 10, 2022 03:00 PM [facility]UL[facility] MED[facility]INE [facility] [place] [facility] Dec 06, 2022 03:30 PM [facility] Lab Results: +/- 30 days of the encounter This section includes the Chemistry and Hematology Lab Results on record with [facility] for the patient. Radiology Reports and Pathology Reports are provided separately, in subsequent sections.Lab Results This section contains the Chemistry/Hematology Results that were resulted 30 days before or 30 daysafter the date of the Encounter. Date/Time Source Result Type Result - Unit Interpretation Reference Range Comment Jun 08, 2022 07:39 [facility] [place] FERRITIN S pecimen Type: SERUM AM H[facility] No comment enter ed. Ordering Provid er: MELANIA RAMOS Report Released Date/Time: Feb 14, 2022 08:21 AM Reporting Lab: [facility] [place] [facility] [address] [facility] [address] Performing Lab: [facility] [place] [facility] [address] [facility] [address] FERRITIN 20.5 20-300 Jun 08, 2022 [facility] IRON & TIBC PANEL Specimen Type : SERUM 07:39 AM [place] [facility] No comment enter ed. Ordering Provid er: MELANIA RAMOS Report Released Date/Time: Feb 14, 2022 08:21 AM Reporting Lab: [facility] [place] [facility] [address] [facility] [address] Performing Lab: [facility] [place] [facility] [address] [facility] [address] TIBC 381 204-475 IRON 64 40-160 Transferrin Saturation 16.8 L 20.0-50 .0 Jun 08, 2022 [facility] MICROALBUMIN Specimen Type: URINE 07:39 AM [facility] CREATININE RATIO PANEL No commen t entered. Ordering Provid er: MELANIA RAMOS Report Released Date/Time: Feb 14, 2022 08:21 AM Reporting Lab: [facility] [place] [facility] [address] [facility] [address] Performing [facility] [address] [facility] [address] MICROALBUMIN/CREATININE RATIO 316.8 H 0-29.9 MICROALBUMIN,QUANTITATIVE 24.7 RR U NAVAIL CREATININE URINE 77.97 Jun 08, 2022 07:39 AM [place] [facility] LIPID PANEL FASTING Speci men Type: SERUM No comment enter ed. Ordering Provid er: AMBIKA KNIGHT Report Released Date/Time: Jun 06, 2022 03:16 PM Reporting Lab: [facility] [place] [facility] [address] [facility] [address] Performing Lab: [facility] [address] [facility] [address] CHOLESTEROL 146 <7-199 TRIGLYCERIDE 238 H 0-150 LDL calculated 67 0-129 CHOL/HDL 4.7 HDL CHOLESTEROL 31 L 40-60 Jun 08, 2022 [facility] HEMOGLOBIN A1C Specimen Type: BLOOD 07:39 AM [...] Jun 06, 2022 03:16 PM Reporting Lab: [facility] [place] [facility] [address] [facility] [address] Performing Lab: [facility] [place] [facility] [address] [facility] [address] HEMOGLOBIN A1C 9.4 H 4.0-5.6 Jun 08, 2022 07:39 AM [facility] [place] CBC Specimen Type: BLOOD HCS No comment enter ed. Ordering Provid er: MELANIA RAMOS Report Released Date/Time: Feb 14, 2022 08:21 AM Reporting Lab: [facility] [place] [facility] [address] [facility] [address] Performing Lab: [facility] [place] [facility] [address] [facility] [address] WBC 7.26 4.50-11.00 RBC 5.31 4.23-5.66 HGB 13.9 12.8-17 HCT 43.1 39.2-50.4 MCV 81.2 L 82-99 MCHC 32.3 30.8-35.1 PLT 280 140-360 RDW-CV 15.5 12.0-16.0 MCH 26.2 26.2-32.6 Jun 08, 2022 [facility] BASIC METABOLIC PANEL Specimen Type: SERUM 07:39 AM [place] [facility] (non-fasting) No comment enter ed. Ordering Provid er: MELANIA RAMOS Report Released Date/Time: Feb 14, 2022 08:21 AM Reporting Lab: [facility] [place] [facility] [address] [facility] [address] Performing Lab: [facility] [place] [facility] [address] [facility] [address] UREA NITROGEN 24 7-25 GLUCOSE 230 H 65-100 SODIUM 136 135-145 POTASSIUM 5.2 H 3.5-5.0 CHLORIDE 104 100-110 CO2 23 20-30 CREATININE, Serum 1.66 H 0.50-1.40 eGFR(CKD-EPI 2020) 44 L >60 Jun 08, 2022 07:39 AM [place] [facility] BASIC METABOLIC PANEL Spe cimen Type: SERUM (fasting) No comment enter ed. Ordering Provid er: AMBIKA KNIGHT Report Released Date/Time: Jun 06, 2022 03:16 PM Reporting Lab: [facility] [address] [facility] [address] Performing Lab: [facility] [address] [facility] [address] UREA NITROGEN 24 7-25 GLUCOSE 230 H 65-100 SODIUM 136 135-145 POTASSIUM 5.2 H 3.5-5.0 CHLORIDE 104 100-110 CO2 23 20-30 CREATININE, Serum 1.66 H 0.50-1.40 eGFR(CKD-EPI 2020) 44 L >60 Immunizations: All administered on the encounter date This section contains immunizations associated to the Encounter. Immunization Series Date Issued Reaction Comments TDAP Jul 05, 2022 Social History: Smoking Status (Most current) and Tobacco Use (All prior to encounter date) This section includes the most current, and the historical, smoking and tobacco-related health factors from the [place] facility where the Encounter took place.Current Smoking Status This section includes the most current smoking, or tobacco-related health factor, from the [place] facility where the Encounter took place. Date/Time Current Smoking Status Comment Facility Jul 05, 2022 01:51 PM VA-TOBACCO NEVER USED [facility] Tobacco Use History This section includes a history of the smoking, or tobacco- related health factors, that were collected on or before the date of the Encounter. The data comes from the [place] facility where the Encounter took place. Date/Time Smoking Status/Tobacco Use Comment [facility] May 11, 2021 01:18 PM VA-TOBACCO NEVER USED [facility] Encounter Notes: All associated encounter notes This section contains the clinical notes associated to the Encounter. Date/Time Encounter Note(s) Provider Source Jul 05, 2022 01:51 PM PREVENTIVE MEDICINE NURSING NOTE: JOEY RODRIGUEZ [facility] TITLE: CLINICAL REMINDERS/NURSING STANDARD TITLE: PREVENTIVE MEDICINE NURSING NOTE DATE OF NOTE: JUL 05, 2022@13:51 ENTRY DATE: JUL 05, 2022@13:51:14 AUTHOR: JOEY RODRIGUEZ EXP COSIGNER: URGENCY: STATUS: COMPLETED CLINICAL REMINDERS/NURSING Has ADDENDA here for 6 month DM check up after labs. Advance Directive Screen: Patient has an up-to-date Advance Directive at an outside, non-ny facility and was asked to forward a copy to his /her clinician. Comment: Given + communication form both with i nstructions. Relationship Health & Safety Screen: Screening is not completed at this time due to: Another adult is present. Tobacco Use Screening: The patient has never used tobacco. Influenza Immunization: The patient has received the seasonal influenza vaccine for the current season at another location. Date: July 02, 2022 Location: Outside Healthcare Provider Alcohol Use Screen (AUDIT-C): Alcohol Screen: SCREEN FOR ALCOHOL (AUDIT-C) An alcohol screening test (AUDIT-C) was negativ e (score=0). 1. How often did you have a drink containing al cohol in the past year? Never 2. How many drinks containing alcohol did you h ave on a typical day when you were drinking in the past year? Response not required due to responses to other questions. 3. How often did you have six or more drinks on one occasion in the past year? Response not required due to responses to other questions. COVID-19 Immunization Booster: Patient educated on the need for receiving COVID-19 (SARS-CoV-2) booster either at [facility] or [facility] facility. Comment: Made aware available here at [place] by olvin ointment. /keshawn RODRIGUEZ LPN LICENSED PRACTICAL NURSE Signed: 07/05/2022 13:54 07/05/2022 ADDENDUM STATUS: COMPLETED VIS dicussed and given for review re: Tdap. /keshawn RODRIGUEZ LPN LICENSED PRACTICAL NURSE Signed: 07/05/2022 13:55 07/05/2022 ADDENDUM STATUS: COMPLETED Td / Tdap Immunization: The patient received Tetanus/Diphtheria/Pertuss is (Tdap) 0.5ml IM today in Left Deltoid. Pulmonary Function Technologist: Accord Lot # and Expiration Date: 34FR4(E)06/08/24 Administered by protocol/policy Complications: None The Tetanus, Diphtheria/Pertussis Vaccine (Tdap ) Immunization Sheet (VIS) was given to the patient today. VIS version date Apr. /keshawn RODRIGUEZ LPN LICENSED PRACTICAL NURSE Signed: 07/05/2022 14:46
--- OUTSIDE RECORDS SUMMARY | 2022-07-08 12:46 | XMS_ITS | Continuity of Care Document ---
:1950 Author Organization [facility] Address [address] [place] [address]- Care Team Providers Name Role Phone Arleth COLLINS, Manan Radford Primary Care Physician Encounter [facility] Date(s): 01/09/21 - 01/13/[address] [address] Discharge Disposition: Disch/Trans to IP Rehab or unit w/in Hos Attending Physician: Christal Fuentes MD Admitting Physician: Kirby Tom MD Referring Physician: Kirby Tom MD Allergies, Adverse Reactions, Alerts Substance Reaction Severity Status Nuts almonds and pecans; throat closes Severe Active Immunizations Given and Recorded Vaccine Date Status Refusal Reason pneumococcal 23-valent vaccine 05/08/10 Given Medications acetaminophen 325 mg oral tablet 650 mg, 2, tablet, By Mouth, Every 4 hours, not to exceed 4000 mg/day, Refills 0, Maintenance, 01/09/21 14:07:00 EDT, Partial fill upon patient request if the prescription is for a schedule II opioid drug. Start Date: 01/09/21 Status: Orderedaspirin 81 mg oral delayed release tablet 81 mg, By Mouth, Daily, Refills 0, Maintenance, 01/13/21 11:31:00 EDT, Partial fill upon patient request if the prescription is for a schedule II opioid drug. Start Date: 01/13/21 Status: Orderedatorvastatin 40 mg oral tablet 1 tablet = 40 mg, By Mouth, Daily, 0 Refills, Maintenance, 04/13/20 16:46:00 EDT, Tablet Start Date: 04/13/20 Status: Orderedbisacodyl 10 mg rectal suppository 1 supp = 10 mg, Rectally, Daily, PRN Constipation, 0 Refills, Maintenance, 04/25/20 8:25:00 EDT, Suppository Start Date: 04/25/20 Status: OrderedDocusate/Senna Tablet 1 tablet, By Mouth, Daily at bedtime, 0 Refills, Maintenance, 04/25/20 8:25:00 EDT, Tablet Start Date: 04/25/20 Status: OrderedEliquis 5 mg oral tablet 1 tablet = 5 mg, By Mouth, 2 times a day, Start from 01/16/2021, # 60 tablet, 0 Refills, Maintenance, 01/16/21 11:58:00 EDT, Tablet, Partial fill upon patient request if the prescription is for a schedule II opioid drug. Start Date: 01/16/21 Stop Date: 02/15/21 Status: OrderedFlomax 0.4 mg oral capsule 0.4 mg, 1, capsule, By Mouth, Daily, Refills 0, Maintenance, 01/13/21 11:31:00 EDT, Partial fill upon patient request if the prescription is for a schedule II opioid drug. Start Date: 01/13/21 Status: Orderedgabapentin 100 mg oral capsule 100 mg, 1, capsule, By Mouth, 3 times a day, PRN, Maintenance, Pain , Moderate, 12/30/20 14:57:00 EDT Start Date: 12/30/20 Status: OrderedInsulin Lispro 2-10 units, Subcutaneous Injection, 3 times a day before meals, << Sliding Scale Comments >> 150 - 199 2 units Call if less than 100 200 - 249 4 units 250 - 299 6 units 300 - 349 8 units 350 - 399 10 units Call if greater than 400 <... Start Date: 01/13/21 Status: OrderedLantus Inj 0.6 mL = 60 units, Subcutaneous Injection, Daily at bedtime, 0 Refills, Maintenance, 01/13/21 11:31:00 EDT, Injection, Partial fill upon patient request if the prescription is for a schedule II opioid drug. Start Date: 01/13/21 Status: Orderedmagnesium oxide 400 mg (240 mg elemental magnesium) oral tablet 1 tablet = 400 mg, By Mouth, Daily in AM, 0 Refills, Maintenance, 04/13/20 16:45:00 EDT, Tablet Start Date: 04/13/20 Status: OrderedmetFORMIN 1000 mg oral tablet 1 tablet = 1,000 mg, By Mouth, 2 times a day, 0 Refills, Maintenance, 04/18/20 14:15:00 EDT, Tablet Start Date: 04/18/20 Status: OrderedMetoprolol Tartrate 25 mg oral tablet 0.5 tablet = 12.5 mg, By Mouth, 2 times a day, 0 Refills, Maintenance, 05/07/12 11:13:26 EDT, Tablet Start Date: 05/07/12 Status: OrderedoxyCODONE 5 mg oral tablet 5 mg, Tablet, By Mouth, Every 4 hours, pain scale 1-5, Hold for: sedation and/or hypotension, PRN for Pain , Moderate, Routine, 01/09/21 11:14:00 EDT Start Date: 01/09/21 Stop Date: 01/13/21 Status: DiscontinuedoxyCODONE 5 mg oral tablet 10 mg, 2, tablet, By Mouth, Every 4 hours, PRN, for 3 days, # 18 tablet, Refills 0, Tot. Refills 0, Acute 01/16/21 11:32:00 EDT, for pain, 01/13/21 11:32:00 EDT, Print Requisition, Partial fill upon patient request if the prescription is for a schedul... Start Date: 01/13/21 Stop Date: 01/16/21 Status: Orderedpantoprazole 40 mg oral delayed release tablet 1 tablet = 40 mg, By Mouth, Daily in AM, Maintenance, 12/30/20 14:33:00 EDT Start Date: 12/30/20 Status: Orderedterazosin 5 mg oral capsule 5 mg, 1, capsule, By Mouth, Daily at bedtime, Refills 0, Maintenance, 04/25/20 8:25:00 EDT Start Date: 04/25/20 Status: OrderedtiZANidine 4 mg oral tablet 2 mg, 0.5, tablet, By Mouth, 3 times a day, PRN, not to exceed 3 doses/day, # 6 tablet, Refills 0, Tot. Refills 0, Maintenance, Spasm, 01/13/21 11:33:00 EDT, Print Requisition, Partial fill upon patient request if the prescription is for a schedule II... Start Date: 01/13/21 Stop Date: 01/17/21 Status: OrderedVit B Complex Tablet 1 tablet, By Mouth, Daily in AM, Maintenance, 12/30/20 14:36:00 EDT Start Date: 12/30/20 Status: OrderedVitamin D3 1000 intl units oral capsule 1 capsule = 1,000 International_Units, By Mouth, Daily in AM, Maintenance, 12/30/20 14:35:00 EDT Start Date: 12/30/20 Status: Ordered Problem List Condition Effective Dates Status Health Status Informant Acute Myocardial Infarction(Confirmed) 05/08/10 Active Results Radiology Reports Exam Date Time Procedure Performing Provider Status 01/09/21 9:17 AM C-Arm > 1 Hour Maria Isabel Pompa; Auth (Verified) Notes:(C-Arm > 1 Hour) Reason For Exam: TLIF L3-L4 for spondylolisthesis; tt 1hr 10min ft 40sec 6 images saved and dose summaryRESULT: C-Arm > 1 Hour Lumbar Spine 2 or 3 Views, C-Arm > 1 Hour INDICATION: TLIF L3-L4 for spondylolisthesis COMPARISONS: None TECHNIQUE: Fluoroscopy support was provided. There was no radiologist in attendance. Fluoroscopy time: 40.3 seconds Technologist time: 1 hour 10 minutes Exposure: 30.5 mGy FINDINGS: 6 images were submitted showing TLIF at L3-L4. Please refer to operative note for full details. IMPRESSION: See above. WSN: [id number] Ordering Physician: Kirby Tom Dictated By: Mustapha Ochoa MD Dictated Date/Time: 01/09/21 9:19 am Reviewed By: Mustapha Ochoa MD Signed By: Mustapha Ochoa MD Signed Date/Time: 01/09/21 9:19 am Transcribed By: MARJORIE Transcribed Date/Time: 01/09/21 9:18 am Exam Date Time Procedure Performing Provider Status 01/09/21 9:17 AM Lumbar Spine 2 or 3 Views Maria Isabel Pompa; Auth (Verified) Notes:(Lumbar Spine 2 or 3 Views) Reason For Exam: TLIF L3-L4 for spondylolisthesis; tt 1hr 10min ft 40sec6 images saved and dose summaryRESULT: Lumbar Spine 2 or 3 Views Lumbar Spine 2 or 3 Views, C-Arm > 1 Hour INDICATION: TLIF L3-L4 for spondylolisthesis COMPARISONS: None TECHNIQUE: Fluoroscopy support was provided. There was no radiologist in attendance. Fluoroscopy time: 40.3 seconds Technologist time: 1 hour 10 minutes Exposure: 30.5 mGy FINDINGS: 6 images were submitted showing TLIF at L3-L4. Please refer to operative note for full details. IMPRESSION: See above. WSN: [id number] Ordering Physician: Kirby Tom Dictated By: Mustapha Ochoa MD Dictated Date/Time: 01/09/21 9:19 am Reviewed By: Mustapha Ochoa MD Signed By: Mustapha Ochoa MD Signed Date/Time: 01/09/21 9:19 am Transcribed By: MARJORIE Transcribed Date/Time: 01/09/21 9:18 am Vital Signs Most recent to oldest 1 2 3 [Reference Range]: Height 172.7 cm 172.7 cm 172.7 cm (01/13/21 11:44 AM) (01/13/21 7:50 AM) (01/12/21 11 :01 PM) Weight 100 kg 100 kg (01/09/21 6:06 AM) (12/30/20 3:54 PM) Oxygen Saturation [94-100 95 % 97 % 94 % %] (01/13/21 11:44 AM) (01/13/21 7:50 AM) (01/12/21 11 :01 PM) Pulse Rate [55-90 bpm] 83 bpm 71 bpm 76 bpm (01/13/21 11:44 AM) (01/13/21 7:50 AM) (01/12/21 11 :01 PM) Body Mass Index 33.53 33.53 [18.5-24.99] *>HHI* *>HHI* (01/09/21 6:06 AM) (12/30/20 3:54 PM) Blood Pressure 146/84 mm Hg 137/75 mm Hg 138/83 mm Hg [90-138/55-84 mm Hg] *H* (01/13/21 7:50 AM) (01/12/21 11:01 PM) (01/13/21 11:44 AM) Respiratory Rate [16-30 18 br/min 18 br/min 18 br/mi n br/min] (01/13/21 12:23 PM) (01/13/21 11:44 AM) (01/13/21 8 :18 AM) Temperature [96.8-100.4 97.6 DegF 97.1 DegF 97.0 Deg F DegF] (01/13/21 11:44 AM) (01/13/21 7:50 AM) (01/12/21 11 :01 PM) Liters per Minute 2 L/min 2 L/min 2 L/min (01/09/21 4:30 PM) (01/09/21 12:30 PM) (01/09/21 11 :00 AM) Mode of Delivery (Oxygen) Room air Room air Room a ir (01/13/21 11:44 AM) (01/13/21 7:50 AM) (01/12/21 11 :01 PM) Blood pressure sites Arm, right Arm, left Arm, left (01/13/21 11:44 AM) (01/13/21 7:50 AM) (01/12/21 11 :01 PM) Temperature Route Temporal Rectal Temporal (01/13/21 11:44 AM) (01/13/21 7:50 AM) (01/12/21 11 :01 PM) Dry Weight 103.7 kg 100 kg (01/09/21 6:06 AM) (12/30/20 3:54 PM) Weight Obtained Via Patient/family stated (12/30/20 3:54 PM) Dry Weight Obtained Via Standing scale Patient/family stated (01/09/21 6:06 AM) (12/30/20 3:54 PM) Social History Social History Type Response Smoking Status Never (less than 100 in life time) entered on: 01/26/20 Sex Male
--- OUTSIDE RECORDS SUMMARY | 2022-07-08 12:46 | XMS_ITS ---
:1950 Author Organization Department of [facility] rs Address [address] [place] [address] Support Name Relationship Address Phone CELINE THANIA Rosmery Unavailable [address] [place] [address] [place] [address] CELINEAMELIA Unavailable [address] [place] [address] Insurance Providers: All historical and current Section [...] AARP INS PRESCRIPT MEDIC Sep 16, PDPIND [id number] [phone] YESSI BERGERZhane PATIENT ION ARE D 2017 [id number] IS MEDICAID MEDICAID [facility] Jul 17, MEDICAI [id number] [id number] DAYAMI BERGER PATIENT EALTH 2014 D [id number] IS STAND CHRISTOPHER MEDICARE MEDICARE PART Sep 16, PART A [id number] [phone] Rosmery BERGER PATIENT (WNR) (M) A 2010 00 IS MEDICARE MEDICARE PART Sep 16, PART B [id number] [phone] Rosmery BERGER PATIENT (WNR) (M) B 2010 00 IS MEDICARE MEDICARE PART Sep 16, PART A [id number] Rosmery BERGER PATIENT (WNR) (M) A 2010 XH29 2 IS MEDICARE MEDICARE PART Sep 16, PART B [id number] Rosmery BERGER PATIENT (WNR) (M) B 2010 XH29 2 IS Selected Encounter This section includes the information on record at [place] for the Encounter. Date/Time Encounter Type Encounter Description Reason Provider Source Jul 02, 2022 12:00 Outpatient Encounter EVENT (HISTORICAL) AM [facility] Encounter Template Text not used by [facility] Plan of Treatment: Future Appointments (+ 6 months) and Future Tests (+/- 45 days) The Plan of Treatment section includes future care activities for the [facility] [place] [facility]. This section includes future appointments and future orders which are active, pending orscheduled.Future Appointments This section includes appointments that were scheduled to occur 6 months from the date of the Encounter, up to a maximum of 20 appointments. The data comes from all [place] treatment facilities. Appointment Date/Time Appointment Type Appointment Facili ty Name Jul 04, 2022 03:00 PM AMBULATORY [place] [facility] [place] [facility] Jul 04, 2022 03:15 PM [facility]UL[facility] [place] [facility] [facility] [place] [facility] Jul 05, 2022 01:30 PM AMBULATORY - MEDICINE [place] Sep 05, 2022 03:30 PM AMBULATORY [facility] Oct 03, 2022 03:00 PM [facility]BULATORY - [facility]IC[facility] [place] [facility] [place] [facility] Oct 10, 2022 03:00 PM [facility]UL[facility] [place] [facility] [facility] [place] [facility] Dec 06, 2022 03:30 PM [facility]BULATORY - [place]IC[place] [facility] [place] [facility] Lab Results: +/- 30 days of the [...] Reference Range Comment Jun 08, 2022 07:39 [place] [facility] [place] FERR[place]IN S pecimen Type: SERUM AM HCS No comment enter ed. Ordering Provid er: MELANIA RAMOS Report Released Date/Time: Feb 14, 2022 08:21 AM Reporting Lab: [place] [facility] [place] [facility] [address] [address] Performing Lab: [facility] [place] [facility] [address] [address] FERRITIN 20.5 20-300 Jun 08, 2022 [facility] IRON & TIBC PANEL Specimen Type : SERUM 07:39 AM [place] [facility] No comment enter ed. Ordering Provid er: MELANIA RAMOS Report Released Date/Time: Feb 14, 2022 08:21 AM Reporting Lab: [facility] [place] [facility] [address] [address] Performing Lab: [facility] [place] [facility] [address] [address] TIBC 381 204-475 IRON 64 40-160 Transferrin Saturation 16.8 L 20.0-50 .0 Jun 08, 2022 [facility] MICROALBUMIN Specimen Type: URINE 07:39 AM [place] [facility] CREATININE RATIO PANEL No commen t entered. Ordering Provid er: MELANIA RAMOS Report Released Date/Time: Feb 14, 2022 08:21 AM Reporting Lab: [facility] [place] [facility] [address] [address] Performing Lab: [facility] [place] [facility] [address] [address] MICROALBUMIN/CREATININE RATIO 316.8 H 0-29.9 MICROALBUMIN,QUANTITATIVE 24.7 RR U NAVAIL CREATININE URINE 77.97 Jun 08, 2022 [place] HEMOGLOBIN A1C Specimen Type: BLOOD 07:39 AM [...] Jun 06, 2022 03:16 PM Reporting Lab: [facility] [place] [facility] [address] [address] Performing Lab: [facility] [place] [facility] [address] [address] HEMOGLOBIN A1C 9.4 H 4.0-5.6 Jun 08, 2022 [facility] BASIC METABOLIC PANEL Specimen Type: SERUM 07:39 AM [place] [facility] (non-fasting) No comment enter ed. Ordering Provid er: MELANIA RAMOS Report Released Date/Time: Feb 14, 2022 08:21 AM Reporting Lab: [facility] [place] [facility] [address] [address] Performing Lab: [place] [facility] [place] [facility] [address] [address] UREA NITROGEN 24 7-25 GLUCOSE 230 H [...] AM Reporting Lab: [facility] [place] [facility] [address] [address] Performing Lab: [facility] [place] [facility] [address] [address] WBC 7.26 4.50-11.00 RBC 5.31 4.23-5.66 HGB 13.9 12.8-17 HCT 43.1 39.2-50.4 MCV 81.2 L 82-99 MCHC 32.3 30.8-35.1 PLT 280 140-360 RDW-CV 15.5 12.0-16.0 MCH 26.2 26.2-32.6 Jun 08, 2022 07:39 AM [place] BASIC METABOLIC PANEL Spe cimen Type: SERUM (fasting) No comment enter ed. Ordering Provid er: AMBIKA KNIGHT Report Released Date/Time: Jun 06, 2022 03:16 PM Reporting Lab: [facility] [place] [facility] [address] [address] Performing Lab: [facility] [place] [facility] [address] [address] UREA NITROGEN 24 7-25 GLUCOSE 230 H 65-100 SODIUM 136 135-145 POTASSIUM 5.2 H 3.5-5.0 CHLORIDE 104 100-110 CO2 23 20-30 CREATININE, Serum 1.66 H 0.50-1.40 eGFR(CKD-EPI 2020) 44 L >60 Jun 08, 2022 07:39 AM [place] LIPID PANEL FASTING Speci men Type: SERUM No comment enter ed. Ordering Provid er: AMBIKA KNIGHT Report Released Date/Time: Jun 06, 2022 03:16 PM Reporting Lab: [facility] [address] [address] Performing Lab: [facility] [address] [address] CHOLESTEROL 146 <7-199 TRIGLYCERIDE 238 H 0-150 LDL calculated 67 0-129 CHOL/HDL 4.7 HDL CHOLESTEROL 31 L 40-60 Immunizations: All administered on the encounter date This section contains immunizations associated to the Encounter. Immunization Series Date Issued Reaction Comments INFLUENZA, UNSPECIFIED FORMULATION Jul 02, 2022 Social History: Smoking Status (Most current) [...] 11, 2021 01:18 PM VA-TOBACCO NEVER USED [facility]
--- OUTSIDE RECORDS SUMMARY | 2022-07-08 12:46 | XMS_ITS | Continuity of Care Document ---
:1950 Author Organization [facility] Address [address] [place] [address]- Care Team Providers Name Role Phone Arleth COLLINS, Manan Radford Primary Care Physician Encounter [facility] Date(s): 06/02/20 - 07/02/20 [facility] [address] [address]- [facility] Attending Physician: Kuldeep Guo Admitting Physician: Kuldeep Guo Referring Physician: AdmKuldeep enriquez Allergies, Adverse Reactions, Alerts Substance Reaction Severity Status Nuts Active Immunizations Given and Recorded Vaccine Date Status Refusal Reason pneumococcal 23-valent vaccine 05/08/10 Given Medications apixaban 5 mg oral tablet 1 tablet = 5 mg, By Mouth, 2 times a day, # 180 tablet, 1 Refills, Maintenance, 04/21/20 10:40:00 EDT, Tablet, [facility] 3, 172.72, cm, 04/21/20 7:47:00 EDT, Height, 102.2, kg, 04/15/20 13:50:00 EDT, Dry Weight Start Date: 04/21/20 Status: Orderedaspirin 81 mg oral delayed release tablet 81 mg, By Mouth, Daily, Refills 0, Maintenance, 04/25/20 8:25:00 EDT Start Date: 04/25/20 Status: Orderedatorvastatin 40 mg oral tablet 1 tablet = 40 mg, By Mouth, Daily, # 30 tablet, 0 Refills, Maintenance, 04/13/20 16:46:00 EDT, Tablet Start Date: 04/13/20 Status: OrderedBenadryl Tablet = 25 mg, By Mouth, Every 4 hours, PRN Itch, 0 Refills, Maintenance, 04/25/20 8:25:00 EDT, Tablet Start Date: 04/25/20 Status: Orderedbisacodyl 10 mg rectal suppository 1 supp = 10 mg, Rectally, Daily, PRN Constipation, 0 Refills, Maintenance, 04/25/20 8:25:00 EDT, Suppository Start Date: 04/25/20 Status: Orderedcolchicine 0.6 mg oral tablet 0.6 mg, 1, tablet, By Mouth, 2 times a day, Refills 0, Maintenance, 04/21/20 10:41:00 EDT Start Date: 04/21/20 Stop Date: 05/31/20 Status: Orderedcyclobenzaprine 10 mg oral tablet 10 mg, 1, tablet, By Mouth, 3 times a day, PRN, # 30 tablet, Refills 0, Maintenance, for spasm, 04/13/20 16:46:00 EDT Start Date: 04/13/20 Status: OrderedDocusate/Senna Tablet 2 tablet, By Mouth, Daily in AM, 0 Refills, Maintenance, 04/25/20 8:25:00 EDT, Tablet Start Date: 04/25/20 Status: Orderedinsulin glargine 100 u/ml subcutaneous solution = 55 units, Subcutaneous Injection, Daily, # 4.5 mL, 0 Refills, Maintenance, 04/21/20 10:33:00 EDT, Solution Start Date: 04/21/20 Status: Orderedinsulin lispro 100 u/ml subcutaneous injection = 14 units, Subcutaneous Injection, 3 times a day with meals, # 10 mL, 0 Refills, Maintenance, 04/21/20 10:33:00 EDT, Solution Start Date: 04/21/20 Status: Orderedmagnesium oxide 400 mg (240 mg elemental magnesium) oral tablet 1 tablet = 400 mg, By Mouth, Daily, # 100 tablet, 0 Refills, Maintenance, 04/13/20 16:45:00 EDT, Tablet Start Date: 04/13/20 Status: Orderedmeclizine 12.5 mg oral tablet 1 tablet = 12.5 mg, By Mouth, 3 times a day, PRN Dizziness, 0 Refills, Maintenance, 04/25/20 8:25:00EDT, Tablet Start Date: 04/25/20 Status: OrderedmetFORMIN 1000 mg oral tablet 1 tablet = 1,000 mg, By Mouth, 2 times a day, # 180 tablet, 0 Refills, Maintenance, 04/18/20 14:15:00 EDT, Tablet Start Date: 04/18/20 Status: OrderedMetoprolol Tartrate 25 mg oral tablet 1 tablet = 25 mg, By Mouth, 2 times a day, # 180 tablet, 0 Refills, Maintenance, Tablet Start Date: 05/07/12 Status: OrderedMilk of Magnesia Liquid 30 mL, By Mouth, 2 times a day, PRN Constipation, 0 Refills, Maintenance, 04/25/20 8:25:00 EDT, Suspension Start Date: 04/25/20 Status: OrderedMiraLax Powder 1 pack/packet = 17 Gm, By Mouth, Daily, 0 Refills, Maintenance, 04/25/20 8:25:00 EDT, Powder Start Date: 04/25/20 Status: Orderedpantoprazole 40 mg oral delayed release tablet = 40 mg, By Mouth, Every 12 hours, Protonix 40 mg twice daily for 1 week then Protonix 40 mg daily.,# 60 tablet, 0 Refills, Maintenance, 03/01/20 15:41:00 EDT, EC Tablet, 174, cm, 03/01/20 12:20:00 EDT, Height, 104.5, kg, 02/29/20 23:31:00 EDT, Dry W... Start Date: 03/01/20 Status: Orderedterazosin 5 mg oral capsule 5 mg, 1, capsule, By Mouth, Daily at bedtime, Refills 0, Maintenance, 04/25/20 8:25:00 EDT Start Date: 04/25/20 Status: OrderedTums 500 mg oral tablet, chewable 500 mg, 1, tablet, Chew, Every 4 hours, PRN, Refills 0, Maintenance, Dyspepsia, 04/25/20 8:25:00 EDT Start Date: 04/25/20 Status: OrderedTylenol 325 mg oral tablet 975 mg, 3, tablet, By Mouth, 3 times a day, PRN, # 270 tablet, Refills 1, Tot. Refills 1, Maintenance, Pain , Moderate, 04/21/20 10:40:00 EDT, Route to Pharmacy Electronically, [facility] 3, 172.72, cm, 04/21/20 7:47:00 EDT, Height, 102.2,... Start Date: 04/21/20 Status: OrderedVentolin HFA 108 mcg/inh inhalation aerosol with adapter 2 puffs, Inhalation, Every 4 hours, PRN for wheezing, # 8 Gm, 0 Refills, Maintenance, 04/13/20 16:45:00 EDT, Aerosol Start Date: 04/13/20 Status: OrderedVictoza 18 mg/3 mL subcutaneous solution = 1.8 mg, Subcutaneous Injection, Daily, # 9 mL, 0 Refills, Maintenance, 04/19/20 11:25:00 EDT, Solution Start Date: 04/19/20 Status: OrderedJude Dx:I63.50 Jude Dx:I63.50, See Instructions, # 1 each, Refills 0, Tot. Refills 0, Maintenance, Jude Dx:I63.50, 04/21/20 10:31:00 EDT, Supply Start Date: 04/21/20 Status: Ordered Problem List Condition Effective Dates Status Health Status Informant Acute Myocardial Infarction(Confirmed) 05/08/10 Active Social History Social History Type Response Smoking Status Never (less than 100 in life time) entered on: 01/26/20 Sex Male
--- OUTSIDE RECORDS SUMMARY | 2022-07-08 12:46 | XMS_ITS | Continuity of Care Document ---
:1950 Author Organization [address], [address] [place] [address]- Care Team Providers Name Role Phone Arleth COLLINS, Manan Radford Primary Care Physician Encounter [facility] Date(s): 01/26/20 - 02/02/[address], [address] [place] [address]- [facility] Attending Physician: Kirby Tom MD Referring Physician: Sofy CALDWELL, Eliecer Estrada Allergies, Adverse Reactions, Alerts Substance Reaction Severity Status Nuts Active Immunizations Given and Recorded Vaccine Date Status Refusal Reason pneumococcal 23-valent vaccine 05/08/10 Given Medications aspirin 81 mg oral tablet 1 tablet, By Mouth, Daily, # 30 tablet, 0 Refills, Maintenance, Tablet Start Date: 05/07/10 Status: OrderedIbuprofen See Instructions, 800 mg By Mouth, Refills 0, Maintenance, 02/20/19 7:50:41 EDT, Instructions Replace Required Details Start Date: 02/20/19 Status: Orderedinsulin glargine 100 u/ml subcutaneous solution [...] if greater t... Start Date: 07/07/13 Status: Orderedlisinopril 2.5 mg oral tablet 2.5 mg, 1, tablet, By Mouth, Daily, Refills 0, Maintenance, 02/20/19 7:49:00 EDT Start Date: 02/20/19 Status: OrderedmetFORMIN 500 mg oral tablet 2 tablet = 1,000 mg, By Mouth, 2 times a day, 0 Refills, Maintenance, 02/20/19 7:47:21 EDT Start Date: 02/20/19 Status: OrderedMetoprolol Tartrate 25 mg oral tablet 1 tablet = 25 mg, By Mouth, 2 times a day, # 180 tablet, 0 Refills, Maintenance, Tablet Start Date: 05/07/12 Status: Orderedomeprazole 20 mg oral enteric coated capsule 1 capsule = 20 mg, By Mouth, Daily, before a meal, # 30 capsule, 0 Refills, Maintenance, EC Tablet Start Date: 07/07/13 Stop Date: 08/06/13 Status: OrderedSildenafil See Instructions, PRN Other, 100 [...] Status Informant Acute Myocardial Infarction(Confirmed) 05/08/10 Active Vital Signs Most recent to oldest [Reference Range]: 1 Height 172.72 cm (01/26/20 10:52 AM) Weight 106.4 kg (01/26/20 10:52 AM) Pulse Rate [55-90 bpm] 68 bpm (01/26/20 10:52 AM) Body Mass Index [18.5-24.99] 35.67 *>HHI* (01/26/20 10:52 AM) Social History Social History Type Response Smoking Status Never (less than 100 in life time) entered on: 01/26/20 Sex
--- OUTSIDE RECORDS SUMMARY | 2022-07-08 12:46 | XMS_ITS | Continuity of Care Document ---
:1950 Author Organization [facility] Address [address] [facility], 3rd Floor, [address] [place] [address]- Care Team Providers Name Role Phone Arleth COLLINS, Manan Radford Primary Care Physician Encounter [facility] Date(s): 02/03/21 - 03/05/21 [facility] [address] [facility], [address] [facility], [address] [place] [address] Attending Physician: Kuldeep Guo Admitting Physician: Kuldeep Guo Referring Physician: AdmtrKuldeep Allergies, Adverse Reactions, Alerts Substance Reaction Severity [...] Maintenance, 04/25/20 8:25:00 EDT, Suppository Start Date: 8/10/20 Status: OrderedDocusate/Senna Tablet 1 tablet, By Mouth, Daily at bedtime, 0 Refills, Maintenance, 04/25/20 8:25:00 EDT, Tablet Start Date: 04/25/20 Status: Ordereddoxazosin 8 mg oral tablet 1 tablet = 8 mg, By Mouth, Daily, # 30 tablet, 0 Refills, Maintenance, 02/25/21 11:40:00 EDT, Tablet, Partial fill upon patient request if the prescription is for a schedule II opioid drug. Start Date: 02/25/21 Status: OrderedEliquis 5 mg oral tablet 1 tablet = 5 mg, By Mouth, 2 times a day, Start from 01/16/2021, # 60 tablet, 0 Refills, Maintenance, 01/16/21 11:58:00 EDT, Tablet, Partial fill upon patient request if the prescription is for a schedule II opioid drug. Start Date: 01/16/21 Stop Date: 02/15/21 Status: Orderedfinasteride 5 mg oral tablet 1 tablet = 5 mg, By Mouth, Daily, # 30 tablet, 0 Refills, Maintenance, 02/25/21 11:40:00 EDT, Tablet, Partial fill upon patient request if the prescription is for a schedule II opioid drug. Start Date: 02/25/21 Status: Orderedgabapentin 100 mg oral capsule 100 [...] than 400 <... Start Date: 01/13/21 Status: OrderedJardiance 25 mg oral tablet 1 tablet = 25 mg, By Mouth, Daily in AM, # 30 tablet, 0 Refills, Maintenance, 02/25/21 11:39:00 EDT,Tablet, Partial fill upon patient request if the prescription is for a schedule II opioid drug. 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
--- OUTSIDE RECORDS SUMMARY | 2022-07-08 12:47 | XMS_ITS | Continuity of Care Document ---
:1950 Author Organization [facility] Address Unavailable , Care Team Providers Name Role Phone Arleth COLLINS, Manan Radford Primary Care Physician Encounter [facility] R [id number] Date(s): 04/27/21 - 05/04/21 [facility] Attending Physician: Ayala COLLINS, Tyson Referring Physician: Manan Reinoso MD Allergies, Adverse Reactions, Alerts Substance Reaction [...] 16:46:00 EDT, Tablet Start Date: 04/13/20 Status: Ordereddoxazosin 8 mg oral tablet 1 [...] II opioid drug. Start Date: 01/13/21 Status: OrderedmetFORMIN 1000 mg oral tablet 1 tablet = 1,000 mg, By Mouth, 2 times a day, 0 Refills, Maintenance, 04/18/20 14:15:00 EDT, Tablet Start Date: 04/18/20 Status: OrderedMetoprolol Tartrate 25 mg oral tablet 0.5 tablet = 12.5 mg, By Mouth, 2 times a day, 0 Refills, Maintenance, 05/07/12 11:13:26 EDT, Tablet Start Date: 05/07/12 Status: Orderedmidodrine 5 mg oral tablet 5 mg, 1, tablet, By Mouth, 3 times a day, # 90 tablet, Refills 0, Tot. Refills 0, Maintenance, 03/07/21 15:30:00 EDT, Route to Pharmacy Electronically, [facility], Partial fill upon patient request if the prescription is for a schedule I... Start Date: 03/07/21 Stop Date: 04/06/21 Status: Orderedpantoprazole 40 mg oral delayed release tablet 1 tablet = 40 mg, By Mouth, Daily in AM, Maintenance, 12/30/20 14:33:00 EDT Start Date: 12/30/20 Status: OrderedVit B Complex Tablet 1 tablet, [...]
--- OUTSIDE RECORDS SUMMARY | 2022-07-08 12:47 | XMS_ITS | Continuity of Care Document ---
:1950 Author Organization [facility] Address [address] [place] [address]- Care Team Providers Name Role Phone Arleth COLLINS, Manan Radford Primary Care Physician Encounter [facility] Date(s): 03/12/20 - 05/27/[address] [address]- [facility] Attending Physician: Kiryb Tom MD Referring Physician: Kirby Tom MD Allergies, Adverse Reactions, Alerts Substance Reaction Severity Status Nuts Active Immunizations Given and Recorded Vaccine Date Status Refusal Reason pneumococcal 23-valent vaccine 05/08/10 Given Medications apixaban 5 mg oral tablet 1 tablet = 5 mg, By Mouth, 2 times a day, # 180 tablet, 1 Refills, Maintenance, 04/21/20 10:40:00 EDT, Tablet, [facility], 172.72, cm, 04/21/20 7:47:00 EDT, Height, [...] 04/21/20 10:40:00 EDT, Route to Pharmacy Electronically, [facility] 3, 172.72, cm, 04/21/20 7:47:00 EDT, Height, [...]
--- OUTSIDE RECORDS SUMMARY | 2022-07-08 12:47 | XMS_ITS | Continuity of Care Document ---
:1950 Author Organization [facility] Address [address], [address], [address] [place] [address]- Care Team Providers Name Role Phone Arleth COLLINS, Manan Radford Primary Care Physician Encounter [facility] Date(s): 02/03/21 - 02/10/21 [facility] [address], [address], [address] [place] [id number] Attending Physician: Tyson Cai MD Allergies, Adverse Reactions, Alerts Substance Reaction [...] II opioid drug. Start Date: 01/09/21 Status: Orderedacetaminophen-HYDROcodone 325 mg-5 mg oral tablet 1 tablet, By Mouth, Every 6 hours, PRN for pain, for 7 days, # 28 tablet, 0 Refills, Acute 02/14/21 12:53:00 EDT, 02/07/21 12:53:00 EDT, Tablet, [id number], Partial fill upon patient request ifthe prescription is for a schedule II opioid drug... Start Date: 02/07/21 Stop Date: 02/14/21 Status: Orderedaspirin 81 mg oral delayed release [...]
--- OUTSIDE RECORDS SUMMARY | 2022-07-08 12:47 | XMS_ITS | Continuity of Care Document ---
:1950 Author Organization [facility] Address [address] [place] [address]- Care Team Providers Name Role Phone Arleth COLLINS, Manan Radford Primary Care Physician [place] [facility] [place] - 03/10/[address] [address] Encounter Diagnosis Acute hypotension (Final) - 03/09/20 Acute chest pain (Final) - 03/09/20 Discharge Disposition: A-D/C Home Attending Physician: Rosendo Yousif MD Admitting Physician: Rosendo Yousif MD Referring Physician: Not on Staff, Referring MD Allergies, Adverse Reactions, Alerts Substance Reaction [...] 03/01/20 15:40:00 EDT, Route to Pharmacy Electronically, [facility], 174, cm, 03/01/20 12:20:00 EDT, [...] if greater t... Start Date: 07/07/13 Status: Orderedmagnesium oxide 400 mg oral tablet 1 tablet = 400 mg, By Mouth, Daily, for 14 days, # 14 tablet, 0 Refills, Acute 03/24/20 10:53:00 EDT, 03/10/20 10:53:00 EDT, Tablet, [facility], 173, cm, 03/10/20 7:36:00 EDT, Height, 102.5, kg, 03/10/20 4:10:00 EDT, Dry Weight Start Date: 03/10/20 Stop Date: 03/24/20 Status: OrderedmetFORMIN 500 mg oral tablet 2 [...] Active Vital Signs Most recent to oldest 1 2 3 [Reference Range]: Height 173 cm 173 cm (03/10/20 7:36 AM) (03/10/20 4:10 AM) Weight 102.5 kg 102.5 kg (03/10/20 6:41 AM) (03/10/20 4:10 AM) Oxygen Saturation [94-100 %] 95 % 98 % 95 % (03/10/20 7:36 AM) (03/10/20 4:10 AM) (03/10/20 2:3 2 AM) Pulse Rate [55-90 bpm] 76 bpm 80 bpm 78 bpm (03/10/20 7:36 AM) (03/10/20 4:10 AM) (03/10/20 2:3 2 AM) Body Mass Index [18.5-24.99] 34.25 *>HHI* (03/10/20 4:10 AM) Blood Pressure [90-138/55-84 mm 126/64 mm Hg 140/66 mm Hg 115/50 mm Hg Hg] (03/10/20 7:36 AM) *H* (03/10/20 3:13 AM) (03/10/20 4:10 AM) Respiratory Rate [16-30 br/min] 18 br/min 20 br/min 20 br/min (03/10/20 7:36 AM) (03/10/20 4:10 AM) (03/10/20 2:3 2 AM) Temperature [96.8-100.4 DegF] 97.8 DegF 97.6 DegF 97 .6 DegF (03/10/20 7:36 AM) (03/10/20 4:10 AM) (03/10/20 2:3 2 AM) Mode of Delivery (Oxygen) Room air Room air Room a ir (03/10/20 7:36 AM) (03/10/20 4:10 AM) (6/25/20 2:3 2 AM) Blood pressure sites Arm, left Arm, right Arm, right (03/10/20 7:36 AM) (03/10/20 4:10 AM) (03/10/20 2:3 2 AM) Temperature Route Temporal Temporal Oral (03/10/20 7:36 AM) (03/10/20 4:10 AM) (03/10/20 2:3 2 AM) Dry Weight 102.5 kg (03/10/20 4:10 AM) Weight Obtained Via Bed scale (03/10/20 6:41 AM) Social History Social History Type Response Smoking Status Never (less than 100 in life time) entered on: 01/26/20 Sex
--- OUTSIDE RECORDS SUMMARY | 2022-07-08 12:47 | XMS_ITS | Continuity of Care Document ---
:1950 Author Organization [address], [address] [place] [address]- Care Team Providers Name Role Phone Arleth COLLINS, Manan Radford Primary Care Physician [place] [facility] [place] 02/19/20 - 05/05/[address], [address] [place] [address]- [facility] Attending Physician: Kirby Tom MD Allergies, Adverse Reactions, Alerts Substance Reaction Severity Status Nuts Active Immunizations Given and Recorded Vaccine Date Status Refusal Reason pneumococcal 23-valent vaccine 05/08/10 Given Medications apixaban 5 mg oral tablet 1 tablet = 5 mg, By Mouth, 2 times a day, # 180 tablet, 1 Refills, Maintenance, 04/21/20 10:40:00 EDT, Tablet, [facility], 172.72, cm, 04/21/20 7:47:00 EDT, [...] 04/21/20 10:40:00 EDT, Route to Pharmacy Electronically, [facility], 172.72, cm, 04/21/20 7:47:00 EDT, [...]
--- OUTSIDE RECORDS SUMMARY | 2022-07-08 12:47 | XMS_ITS | Continuity of Care Document ---
:1950 Author Organization [facility] Address Unavailable , Care Team Providers Name Role Phone Arleth COLLINS, Manan Radford Primary Care Physician En[place] [facility] [place](s[place] 10/27/21 - 11/26/21 [facility] Attending Physician: Kuldeep Guo Admitting Physician: Kuldeep Guo Referring Physician: Kuldeep Guo Allergies, Adverse Reactions, Alerts Substance Reaction Severity [...] II opioid drug. Start Date: 01/13/21 Status: OrderedLidoderm 5% film 1 patch, Topically, Daily, PRN severe back pain, remove patches after 12 hours, # 30 patch, 0 Refills, Maintenance, 10/27/21 9:43:00 EST, [id number], Partial fill upon patient request if the prescription is for a schedule II opioid drug., 1 pa... Start Date: 10/27/21 Stop Date: 11/26/21 Status: OrderedmetFORMIN 1000 mg oral tablet 1 [...] 03/07/21 15:30:00 EDT, Route to Pharmacy Electronically, [facility], Partial fill upon patient request if [...]
--- OUTSIDE RECORDS SUMMARY | 2022-07-08 12:47 | XMS_ITS | Continuity of Care Document ---
:1950 Author Organization [address], [address] [place] [address]- Care Team Providers Name Role Phone Manan Reinoso MD Primary Care Physician [place] [facility] [place] 02/07/21 - 02/14/[address], [address] [place], [place] [address] Attending Physician: Jessica Tom MD Referring Physician: Manan Reinoso MD Allergies, Adverse [...]
--- OUTSIDE RECORDS SUMMARY | 2022-07-08 12:47 | XMS_ITS | Continuity of Care Document ---
:1950 Author Organization [facility] Address [address] [facility], 3rd Floor, [address] [place] [address]- Care Team Providers Name Role Phone Arleth COLLINS, Manan Radford Primary Care Physician En[place] [facility] [place] Date(s): 09/22/20 - 09/29/20 [facility] [address] [facility], 3rd Floor, [address] [place] [address] Attending Physician: Tyson Cai MD Allergies, Adverse Reactions, Alerts Substance Reaction Severity Status Nuts Active Immunizations Given and Recorded Vaccine Date Status Refusal Reason pneumococcal 23-valent vaccine 05/08/10 Given Medications apixaban 5 mg oral tablet 1 tablet = 5 mg, By Mouth, 2 times a day, # 180 tablet, 1 Refills, Maintenance, 04/21/20 10:40:00 EDT, Tablet, [facility], 172.72, cm, 04/21/20 7:47:00 [...] 04/21/20 10:40:00 EDT, Route to Pharmacy Electronically, [facility], 172.72, cm, 04/21/20 7:47:00 [...]
--- OUTSIDE RECORDS SUMMARY | 2022-07-08 12:47 | XMS_ITS | Continuity of Care Document ---
:1950 Author Organization [facility] Address [address] [facility], 3rd Floor, [address] [place] [address]- Care Team Providers Name Role Phone Arleth COLLINS, Manan Radford Primary Care Physician En[place] [facility] [place](s): 09/22/20 - 10/22/20 [facility] [address] [place] [address], [address] [facility], [address] [place] [address] Attending Physician: Kuldeep Guo Admitting Physician: Kuldeep Guo Referring Physician: AdmtrKuldeep Allergies, Adverse Reactions, Alerts Substance Reaction Severity Status Nuts Active Immunizations Given and Recorded Vaccine Date Status Refusal Reason pneumococcal 23-valent vaccine 05/08/10 Given Medications apixaban 5 mg oral tablet 1 tablet = 5 mg, By Mouth, 2 times a day, # 180 tablet, 1 Refills, Maintenance, 04/21/20 10:40:00 EDT, Tablet, [facility], 172.72, cm, 04/21/20 7:47:00 [...] 04/21/20 10:40:00 EDT, Route to Pharmacy Electronically, [facility], 172.72, cm, 04/21/20 7:47:00 EDT, Height, [...]
--- OUTSIDE RECORDS SUMMARY | 2022-07-08 12:47 | XMS_ITS | Continuity of Care Document ---
:1950 Author Organization [facility] Address Unavailable , Care Team Providers Name Role Phone Arleth COLLINS, Manan Radford Primary Care Physician Encounter [facility] [place] Date(s): 10/27/21 - 11/03/21 [facility] Attending Physician: Ayala COLLINS, Tyson Referring [...] patch, 0 Refills, Maintenance, 10/27/21 9:43:00 EST, [id number], Partial fill upon patient request if the [...] 03/07/21 15:30:00 EDT, Route to Pharmacy Electronically, [facility], Partial fill upon patient request if [...]
--- OUTSIDE RECORDS SUMMARY | 2022-07-08 12:47 | XMS_ITS | Continuity of Care Document ---
:1950 Author Organization [address], [address] [place] [address]- Care Team Providers Name Role Phone Arleth COLLINS, Manan Radford Primary Care Physician [place] [facility] [place] - 03/22/[address], [address] [place], [place] [email or web address] Allergies, Adverse Reactions, Alerts Substance Reaction Severity [...] II opioid drug. Start Date: 02/25/21 Status: Orderedfludrocortisone 0.1 mg oral tablet 1 tablet = 0.1 mg, By Mouth, Daily, for 30 days, # 30 tablet, 0 Refills, Acute 04/06/21 15:32:00 EDT, 03/07/21 15:32:00 EDT, Tablet, [facility], Partial fill upon patient request if the prescription is for a schedule II opioid drug., 172... Start Date: 03/07/21 Stop Date: 04/06/21 Status: Orderedgabapentin 100 mg oral capsule 100 [...] 03/07/21 15:30:00 EDT, Route to Pharmacy Electronically, [facility], Partial fill upon patient request if [...]
--- OUTSIDE RECORDS SUMMARY | 2022-07-08 12:47 | XMS_ITS | Continuity of Care Document ---
:1950 Author Organization [facility] Address [address] [place] [address]- Care Team Providers Name Role Phone Arleth COLLINS, Manan Radford Primary Care Physician Encounter [facility] [place] Date(s): 02/25/21 - 03/07/[address] [address] Encounter Diagnosis Near syncope (Final) - 02/25/21 Discharge Disposition: A-Transfer VNA/Home Health Attending Physician: Vimal Garcia MD Admitting Physician: Agapito Swartz MD Referring Physician: Not on Staff, Referring [...] 04/06/21 15:32:00 EDT, 03/07/21 15:32:00 EDT, Tablet, [facility], Partial fill upon [...] Orderedmidodrine 5 mg oral tablet 5 mg, Tablet, By Mouth, 03/07/21 16:00:00 EDT Start Date: 03/07/21 Stop Date: 03/07/21 Status: Completedmidodrine 5 mg oral tablet 5 mg, 1, tablet, By Mouth, 3 times a day, # 90 tablet, Refills 0, Tot. Refills 0, Maintenance, 03/07/21 15:30:00 EDT, Route to Pharmacy Electronically, [facility], Partial fill upon patient request if the prescription is for a schedule I... Start Date: 03/07/21 Stop Date: 04/06/21 Status: Orderedmidodrine 5 mg oral tablet 5 mg, Tablet, By Mouth, 03/07/21 12:00:00 EDT Start Date: 03/07/21 Stop Date: 03/07/21 Status: Completedpantoprazole 40 mg oral delayed release tablet 1 [...] Active cerebellar artery(Confirmed) Coronary artery disease(Confirmed) Active Procedures Procedure Date Related Diagnosis Body Site Status Decompression of lumbar spine[address] Tom Vital Signs Most recent to oldest 1 2 3 [Reference Range]: Weight 93.3 kg 93.9 kg 94.7 kg (03/06/21 5:45 AM) (03/05/21 5:14 AM) (03/04/21 6:0 5 AM) Oxygen Saturation [94-100 %] 99 % 98 % 100 % (03/07/21 5:27 PM) (03/07/21 11:00 AM) (03/07/21 6: 19 AM) Pulse Rate [55-90 bpm] 88 bpm 85 bpm 88 bpm (03/07/21 6:02 PM) (03/07/21 5:27 PM) (03/07/21 12: 20 PM) Blood Pressure [90-138/55-84 154/94 mm Hg 173/89 mm Hg 154 /87 mm Hg mm Hg] *H* *H* *H* (03/07/21 6:02 PM) (03/07/21 5:27 PM) (03/07/21 12: 20 PM) Respiratory Rate [16-30 18 br/min 18 br/min 20 br/mi n br/min] (03/07/21 5:27 PM) (03/07/21 11:00 AM) (03/07/21 6: 19 AM) Temperature [96.8-100.4 DegF] 98.3 DegF 97.5 DegF 97 .5 DegF (03/07/21 5:27 PM) (03/07/21 11:00 AM) (03/07/21 6: 19 AM) Mode of Delivery (Oxygen) Room air Room air Room a ir (03/07/21 5:27 PM) (03/07/21 11:00 AM) (03/07/21 6: 19 AM) Blood pressure sites Arm, right Arm, right Arm, left (03/07/21 5:27 PM) (03/07/21 11:00 AM) (03/07/21 6: 19 AM) Temperature Route Oral Oral Oral (03/07/21 5:27 PM) (03/07/21 11:00 AM) (03/07/21 6: 19 AM) Weight Obtained Via Bed scale Bed scale Bed scale (03/06/21 5:45 AM) (03/05/21 5:14 AM) (03/04/21 6:0 5 AM) Social History Social History Type Response Smoking Status Never (less than 100 in life time) entered on: 02/25/21 Sex
--- OUTSIDE RECORDS SUMMARY | 2022-07-08 12:47 | XMS_ITS | Continuity of Care Document ---
:1950 Author Organization [facility] Address [address] [place] [address]- Care Team Providers Name Role Phone Arleth COLLINS, Manan Rdaford Primary Care Physician Encounter [facility] [place] Date(s): 02/29/20 - 03/01/[address] [address]- [facility] Encounter Diagnosis Precordial chest pain (Final) - 02/29/20 Discharge Disposition: A-D/C Home Attending Physician: Chris COLLINS, Ariela Herbert Admitting Physician: Isidro COLLINS, Hyun Arreguin Referring Physician: Not on Staff, Referring MD [...] 03/01/20 15:40:00 EDT, Route to Pharmacy Electronically, [facility], 174, cm, 03/01/20 12:20:00 EDT, Height, 104.5, kg, 02/29/20 23:31:00 ED... Start Date: 03/01/20 Status: Ordereddoxycycline hyclate 100 mg oral tablet = 100 mg, By Mouth, Every 12 hours, for 7 days, # 14 tablet, 0 Refills, Acute 03/08/20 15:40:00 EDT,03/01/20 15:40:00 EDT, Tablet, [facility], 174, cm, 03/01/20 12:20:00 EDT, Height, 104.5, kg, 02/29/20 23:31:00 EDT, Dry Weight Start Date: 03/01/20 Stop Date: 03/08/20 Status: Orderedinsulin glargine 100 u/ml subcutaneous solution [...] = 400 mg, By Mouth, Daily, # 30 tablet, 0 Refills, Acute 03/31/20 12:00:00 EDT, 03/01/20 15:41:00 EDT, Tablet, [facility], 174, cm, 03/01/20 12:20:00 EDT, Height, 104.5, kg, 02/29/20 23:31:00 EDT, Dry Weight Start Date: 03/01/20 Stop Date: 03/31/20 Status: OrderedmetFORMIN 500 mg oral tablet 2 [...] Exam Date Time Procedure Performing Provider Status 02/29/20 7:32 PM Chest Portable Naomi Triana; Auth (Verified) Notes:(Chest Portable) Reason For Exam: Chest Pain;Other:RESULT: Chest Portable Chest Portable INDICATION: Refer to EMR; Reason: Other:; Chest Pain; Clinical Question(s): CHF; Hx of Present Illness: CP and SOB at started at 4:30am. Went to [place] [facility] and sent home. Still having chest pain and SOB; Other Objective Findings: A+Ox3. Increased work of breathing. Midsternal chest pain and SOB non productive cough. COMPARISON: 07/05/2013. FINDINGS: LINES AND TUBES: None. LUNGS AND PLEURA: There are low lung volumes. There is mild increased opacity in the bases and fullness of the centralvasculature probably related to low lung volumes. There is no confluent opacity or jair edema. No effusion or pneumothorax. HEART, MEDIASTINUM AND ISABELLE: Normal. BONES AND SOFT TISSUES: No acute abnormality. IMPRESSION: Low lung volumes. No definite consolidation or edema. WSN: [id number] Ordering Physician: Shahnaz Wick Dictated By: Diana Tucker MD Dictated Date/Time: 02/29/20 7:40 pm Reviewed By: Diana Tucker MD Signed By: Diana Tucker MD Signed Date/Time: 02/29/20 7:40 pm Transcribed By: MARJORIE Transcribed Date/Time: 02/29/20 7:39 pm Vital Signs Most recent to oldest 1 2 3 [Reference Range]: Height 174 cm 174 cm 174 cm (03/01/20 12:20 PM) (03/01/20 8:21 AM) (03/01/20 4: 05 AM) Weight 104.5 kg 106.3 kg (02/29/20 11:31 PM) (02/29/20 11:22 PM) Oxygen Saturation [94-100 %] 97 % 95 % 95 % (03/01/20 12:20 PM) (03/01/20 8:21 AM) (03/01/20 4: 05 AM) Pulse Rate [55-90 bpm] 85 bpm 82 bpm 98 bpm (03/01/20 12:20 PM) (03/01/20 9:59 AM) *H* (03/01/20 8:21 AM ) Body Mass Index [18.5-24.99] 34.52 *>HHI* (02/29/20 11:31 PM) Blood Pressure [90-138/55-84 117/64 mm Hg 122/52 mm Hg 122 /52 mm Hg mm Hg] (03/01/20 12:20 PM) (03/01/20 9:59 AM) (03/01/20 9: 59 AM) Respiratory Rate [16-30 18 br/min 25 br/min 18 br/mi n br/min] (03/01/20 2:48 PM) (03/01/20 12:20 PM) (03/01/20 11 :53 AM) Temperature [96.8-100.4 98.0 DegF 98.7 DegF 98.8 Deg F DegF] (03/01/20 12:20 PM) (03/01/20 8:21 AM) (03/01/20 4: 05 AM) Mode of Delivery (Oxygen) Room air Room air Room a ir (03/01/20 12:20 PM) (03/01/20 8:21 AM) (03/01/20 4: 05 AM) Blood pressure sites Arm, right Arm, right Arm, right (03/01/20 12:20 PM) (03/01/20 8:21 AM) (03/01/20 4: 05 AM) Temperature Route Oral Oral Oral (03/01/20 12:20 PM) (03/01/20 8:21 AM) (03/01/20 4: 05 AM) Dry Weight 104.5 kg (02/29/20 11:31 PM) Weight Obtained Via Bed scale (02/29/20 11:22 PM) Social History Social History Type Response Smoking Status Never (less than 100 in life time) entered on: 01/26/20 Sex
--- OUTSIDE RECORDS SUMMARY | 2022-07-08 12:47 | XMS_ITS | Continuity of Care Document ---
:1950 Author Organization [facility] Address [address] [facility], 3rd Floor, [address] [place] [address]- Care Team Providers Name Role Phone Arleth COLLINS, Manan Radford Primary Care Physician Encounter [facility] Date(s): 01/18/21 - 02/17/21 [facility] [address], [address] Floor, [address] [place] [address] Allergies, Adverse Reactions, Alerts Substance Reaction Severity [...]
--- OUTSIDE RECORDS SUMMARY | 2022-07-08 12:47 | XMS_ITS | Continuity of Care Document ---
:1950 Author Organization [facility] Address [address] [place] [address], [address] [place] [address]- Care Team Providers Name Role Phone Arleth COLLINS, Manan Radford Primary Care Physician Encounter [facility] [place] Date(s): 05/09/21 - 05/16/[address], [address] [place], [place] [address] Attending Physician: Not on Staff, Attending MD Allergies, Adverse Reactions, Alerts Substance Reaction [...] 03/07/21 15:30:00 EDT, Route to Pharmacy Electronically, [facility], Partial fill upon patient request if [...] Active cerebellar artery(Confirmed) Coronary artery disease(Confirmed) Active Vital Signs Most recent to oldest [Reference Range]: 1 Height 172.7 cm (05/09/21 3:18 PM) Weight 93.3 kg (05/09/21 3:18 PM) Body Mass Index [18.5-24.99] 31.28 *>HHI* (05/09/21 3:18 PM) Social History Social History Type Response Smoking Status Never (less than 100 in life time) entered on: 02/25/21 Sex
--- OUTSIDE RECORDS SUMMARY | 2022-07-08 12:47 | XMS_ITS | Continuity of Care Document ---
:1950 Author Organization [facility] Address Unavailable , Care Team Providers Name Role Phone Arleth COLLINS, Manan Radford Primary Care Physician En[place] [facility] [place] Date(s): 04/27/21 - 05/27/21 [facility] Attending Physician: Kuldeep Guo [...] 03/07/21 15:30:00 EDT, Route to Pharmacy Electronically, [facility], Partial fill upon patient request if [...]
--- OUTSIDE RECORDS SUMMARY | 2022-07-08 12:47 | XMS_ITS | Continuity of Care Document ---
:1950 Author Organization [facility] Address [address] [place] [address]- Care Team Providers Name Role Phone Arleth COLLINS, Manan Radford Primary Care Physician En[place] [facility] [place] Date(s): 06/02/20 - 09/21/20 [facility] [address] [address] Discharge Disposition: A-D/C Home Attending Physician: Lance COLLINS(Hem/Onc), Lorenzo Jaimes Admitting Physician: Lance COLLINS(Hem/Onc), Lorenzo Jaimes Referring Physician: Tyson Cai MD Allergies, Adverse Reactions, [...] Route to Pharmacy Electronically, [facility], 172.72, cm, 08/06/20 7:47:00 EDT, Height, 102.2,... Start Date: 04/21/20 [...] 11:25:00 EDT, Solution Start Date: 04/19/20 Status: OrderedWalker Dx:I63.50 Walker Dx:I63.50, See Instructions, # 1 each, Refills 0, Tot. Refills 0, Maintenance, Walker Dx:I63.50, 04/21/20 10:31:00 EDT, Supply Start Date: 04/21/20 Status: Ordered Problem List Condition Effective Dates Status Health Status Informant Acute Myocardial Infarction(Confirmed) 05/08/10 Active Vital Signs Most recent to oldest [Reference Range]: 1 Height 170.2 cm (07/22/20 12:09 PM) Weight 97.6 kg (07/22/20 12:09 PM) Pulse Rate [55-90 bpm] 80 bpm (07/22/20 12:09 PM) Body Mass Index [18.5-24.99] 33.69 *>HHI* (07/22/20 12:09 PM) Blood Pressure [90-138/55-84 mm Hg] 123/72 mm Hg (07/22/20 12:09 PM) Temperature [96.8-100.4 DegF] 98.2 DegF (07/22/20 12:09 PM) Blood pressure sites Arm, right (07/22/20 12:09 PM) Temperature Route Oral (07/22/20 12:09 PM) Dry Weight 97.6 kg (07/22/20 12:09 PM) Weight Obtained Via Standing scale (07/22/20 12:09 PM) Dry Weight Obtained Via Standing scale (07/22/20 12:09 PM) Social History Social History Type Response Smoking Status Never (less than 100 in life time) entered on: 01/26/20 Sex Male
--- OUTSIDE RECORDS SUMMARY | 2022-07-08 12:47 | XMS_ITS | Continuity of Care Document ---
:1950 Author Organization [facility] Address [address] [place] [address]- Care Team Providers Name Role Phone Arleth COLLINS, Manan Radford Primary Care Physician Encounter [facility] [place] Date(s): 04/20/20 - 05/20/[address] [address]- [facility] Attending Physician: Not on Staff, Attending MD Admitting Physician: Not on Staff, Admitting MD Referring Physician: Not on Staff, Referring MD Allergies, Adverse Reactions, Alerts Substance Reaction Severity Status Nuts Active Immunizations Given and Recorded Vaccine Date Status Refusal Reason pneumococcal 23-valent vaccine 05/08/10 Given Medications apixaban 5 mg oral tablet 1 tablet = 5 mg, By Mouth, 2 times a day, # 180 tablet, 1 Refills, Maintenance, 04/21/20 10:40:00 EDT, Tablet, [facility], 172.72, cm, 04/21/20 7:47:00 [...] 04/21/20 10:40:00 EDT, Route to Pharmacy Electronically, [facility], 172.72, cm, [...]
--- OUTSIDE RECORDS SUMMARY | 2022-07-08 12:47 | XMS_ITS | Continuity of Care Document ---
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/13/20 Acute severe vertigo (Final) - 04/13/20 Discharge Disposition: Disch/Trans to IP Rehab or unit w/in Hos Attending Physician: Son Sam MD Admitting Physician: Janny Purcell MD Referring Physician: Not on Staff, Referring MD Allergies, Adverse Reactions, Alerts Substance Reaction Severity Status Nuts Active Immunizations Given and Recorded Vaccine Date Status Refusal Reason pneumococcal 23-valent vaccine 05/08/10 Given Medications apixaban 5 mg oral tablet 1 tablet = 5 mg, By Mouth, 2 times a day, # 180 tablet, 1 Refills, Maintenance, 04/21/20 10:40:00 EDT, Tablet, [facility], 172.72, cm, 04/21/20 7:47:00 [...] 04/21/20 10:40:00 EDT, Route to Pharmacy Electronically, [facility], 172.72, cm, 04/21/20 7:47:00 EDT, Height, [...] Exam Date Time Procedure Performing Provider Status 04/13/20 11:25 AM Chest Portable Molly De La Cruz (Verif ied) Notes:(Chest Portable) Reason For Exam: Shortness of BreathRESULT: Chest Portable Chest Portable INDICATION: Shortness of Breath. COMPARISON: February 29, 2020 FINDINGS: LINES AND TUBES: None. LUNGS AND PLEURA: Lung volumes remain low. Atelectasis at the left lateral lung base. No confluent pulmonary opacities. No definite effusion. No pneumothorax. HEART, MEDIASTINUM AND ISABELLE: Heart is normal in size. Normal mediastinal and hilar contour. BONES AND SOFT TISSUES: No acute abnormality. IMPRESSION: Low lung volumes. No definite acute abnormality. WSN: [id number] Ordering Physician: Candis Varela Dictated By: Lawrence Nunez MD Dictated Date/Time: 04/13/20 11:44 a Reviewed By: Lawrence Nunez MD Signed By: Lawrence Nunez MD Signed Date/Time: 04/13/20 11:44 am Transcribed By: MARJORIE Transcribed Date/Time: 04/13/20 11:38 am Vital Signs Most recent to oldest 1 2 3 [Reference Range]: Height 172.72 cm 172.72 cm 172.72 cm (04/25/20 1:03 AM) (04/24/20 8:55 PM) (04/24/20 4:39 AM) Weight 102.2 kg 102.2 kg (04/15/20 2:14 PM) (04/15/20 1:40 PM) Oxygen Saturation [94-100 98 % 97 % 100 % %] (04/25/20 8:00 AM) (04/25/20 1:03 AM) (04/24/20 8:55 PM) Pulse Rate [55-90 bpm] 74 bpm 74 bpm 70 bpm (04/25/20 8:17 AM) (04/25/20 8:00 AM) (04/25/20 1:0 3 AM) Body Mass Index 34.26 [18.5-24.99] *>HHI* (04/15/20 1:40 PM) Blood Pressure 122/62 mm Hg 122/62 mm Hg 128/67 mm Hg [90-138/55-84 mm Hg] (04/25/20 8:17 AM) (04/25/20 8:00 AM) ( 0 1:03 AM) Respiratory Rate [16-30 17 br/min 20 br/min 18 br/mi n br/min] (04/25/20 8:00 AM) (04/25/20 1:03 AM) (04/24/20 10:3 0 PM) Temperature [96.8-100.4 97.7 DegF 97.9 DegF 98.8 Deg F DegF] (04/25/20 8:00 AM) (04/25/20 1:03 AM) (04/24/20 8:55 PM) Liters per Minute 0 L/min 0 L/min 0 L/min (04/24/20 4:02 PM) (04/24/20 11:10 AM) (04/24/20 8:17 AM) Mode of Delivery (Oxygen) Room air Room air Room a ir (04/25/20 8:00 AM) (04/25/20 1:03 AM) (04/24/20 8:55 PM) Blood pressure sites Arm, right Arm, right Arm, right (04/25/20 8:00 AM) (04/25/20 1:03 AM) (04/24/20 8:55 PM) Temperature Route Oral Oral Oral (04/25/20 8:00 AM) (04/25/20 1:03 AM) (04/24/20 8:55 PM) Dry Weight 102.2 kg (04/15/20 1:40 PM) Weight Obtained Via Bed scale Bed scale (04/15/20 2:14 PM) (04/15/20 1:40 PM) Mobility assistance Independent Partial assistance, Ambulate , assist of 1 (04/18/20 8:00 AM) Transfer, assist of 1, (04/17/20 4:00 PM) Ambulate, assist of 1 (04/17/20 7:50 PM) Social History Social History Type Response Smoking Status Never (less than 100 in life time) entered on: 01/26/20 Sex Male
--- OUTSIDE RECORDS SUMMARY | 2022-07-08 12:47 | XMS_ITS | Continuity of Care Document ---
:1950 Author Organization [facility] Address [address], 3rd Floor, [address] [place] [address]- Care Team Providers Name Role Phone Arleth COLLINS, Manan Radford Primary Care Physician [place] [facility] [place] 06[place]/20 [facility] [address], [address] Floor, [address] [place] [address]- [facility] Attending Physician: Kuldeep Guo Admitting Physician: Kuldeep Guo Referring Physician: AdmtrKuldeep Allergies, Adverse Reactions, Alerts Substance Reaction Severity Status Nuts Active Immunizations Given and Recorded Vaccine Date Status Refusal Reason pneumococcal 23-valent vaccine 05/08/10 Given Medications apixaban 5 mg oral tablet 1 tablet = 5 mg, By Mouth, 2 times a day, # 180 tablet, 1 Refills, Maintenance, 04/21/20 10:40:00 EDT, Tablet, [facility], 172.72, cm, 04/21/20 [...] 04/21/20 10:40:00 EDT, Route to Pharmacy Electronically, [facility], 172.72, cm, 04/21/20 7:47:00 EDT, Height, [...]
--- OUTSIDE RECORDS SUMMARY | 2022-07-08 12:47 | XMS_ITS | Continuity of Care Document ---
:1950 Author Organization [address], [address] [place] [address]- Care Team Providers Name Role Phone Arleth COLLINS, Manan Radford Primary Care Physician [place] [facility] [place](s): 11/15/20 - 12/15/[address], [address] [place], [place] [address] Allergies, Adverse Reactions, Alerts Substance Reaction Severity Status Nuts Active Immunizations Given and Recorded Vaccine Date Status Refusal Reason pneumococcal 23-valent vaccine 05/08/10 Given Medications apixaban 5 mg oral tablet 1 tablet = 5 mg, By Mouth, 2 times a day, # 180 tablet, 1 Refills, Maintenance, 04/21/20 10:40:00 EDT, Tablet, [facility], 172.72, cm, 04/21/20 7:47:00 EDT, [...] 04/21/20 10:40:00 EDT, Route to Pharmacy Electronically, [facility], 172.72, cm, 04/21/20 7:47:00 EDT, [...]
--- OUTSIDE RECORDS SUMMARY | 2022-07-08 12:47 | XMS_ITS | Continuity of Care Document ---
:1950 Author Organization [facility] Address [address] [place] [address], [address] [place] [address]- Care Team Providers Name Role Phone Arleth COLLINS, Manan Radford Primary Care Physician [place] [facility] [place] 05/09/21 - 06/08/[address], [address] [place], [place] [address] Attending Physician: Kuldeep Guo Admitting Physician: AdmKuldeep enriquez Referring Physician: Admtr, Ar8 Allergies, Adverse Reactions, Alerts Substance Reaction Severity [...] 03/07/21 15:30:00 EDT, Route to Pharmacy Electronically, [facility], Partial fill upon patient request [...]
[2022-07-08] MEDS: 0.9 % Sodium Chloride 500 ML IV (13:37)
[2022-07-08] MEDS: cefTRIAXone sodium 1 GM in 0.9 % Sodium Chloride 50 ML IV (13:37)
[2022-07-08] MEDS: Lidocaine HCl 2 % Urojet 10 ML JEL.PF.APP TOPICAL (13:38)
[2022-07-08 13:42] VITALS: BP 120/54; PULSE 67; RESP 18; O2SAT 98
--- NOTE | 2022-07-08 13:43 | PC.NURSE ---
Pt voiding blood, states difficulty with voiding. No pain when not voiding, appears comfortable. Speaking full sentences. ABX started and fluids infusing. Awaiting CT scan results. Urojet at bedside in prep for use if needed
[2022-07-08 15:24] VITALS: PULSE 67; RESP 17; O2SAT 99
[2022-07-08 15:51] LABS: COVID-19 Test Negative (Negative); IDNOW Serial# 16C4AD1C
== END 2022-07-08 15:47 | disposition home or self-care (01) ==
PROVIDERS: Emergency Provider Emergency Medicine; PCP Internal Medicine
DX: N39.0 Urinary tract infection, site not specified (principal); R31.0 Gross hematuria; R30.0 Dysuria; R35.0 Frequency of micturition; R10.9 Unspecified abdominal pain; Z20.822 Contact with and (suspected) exposure to COVID-19; Z79.899 Other long term (current) drug therapy
CPT/HCPCS: 36415; 51702; 74176; 80048; 80076; 81001; 83605; 83735; 85025; 85610; 87040; 87086; 87088; 87186; 87635; 96374; 99284; J0696

== ENCOUNTER 2022-07-09 14:16 | Outpatient (REF) | payer MEDICARE, MEDICAID, SELFPAY ==
--- NOTE | ~2022-07-09 | MR_ITS ---
EXAMINATION: MR ABDOMEN WITHOUT CONTRAST CLINICAL INFORMATION: Abdominal pain. Questionable choledocholithiasis on a prior CT from 07/08/2022. COMPARISON: CT abdomen/pelvis 07/08/2022. TECHNIQUE: MR abdomen is performed without gadolinium contrast. 3-D MRCP images were obtained. FINDINGS: LUNG BASES: The visualized lung bases are unremarkable. LIVER, GALLBLADDER, AND BILIARY TREE: There is signal loss in the opposed phase dual-echo images suggesting the presence of hepatic steatosis. The liver is otherwise normal in size and shape. No focal liver lesions are noted in this limited noncontrast examination. Normal appearance of the gallbladder. No biliary duct dilatation, the common bile duct measures 0.4 cm in diameter. No evidence of choledocholithiasis on MRI. PANCREAS: The proximal main pancreatic duct at the level of the head is mildly dilated measuring up to 0.5 cm in diameter. The remainder of the pancreatic duct is normal in caliber. No discrete focal pancreatic lesions are noted in this limited noncontrast examination. SPLEEN: Unremarkable. ADRENAL GLANDS: Unremarkable. KIDNEYS AND URETERS: There is a 1.1 cm simple T2 bright cyst in the upper right kidney. No hydronephrosis. Mild fairly symmetric bilateral perinephric fat stranding. GASTROINTESTINAL TRACT: No bowel obstruction. No ascites or fluid collection. ABDOMINAL WALL: No significant hernia is appreciated. LYMPH NODES: No lymphadenopathy by size criteria. VASCULAR: Limited noncontrast examination. The abdominal aorta is normal in caliber. OSSEOUS STRUCTURES: Marrow signal normal. Susceptibility artifacts from posterior instrumentation at L3-L4. MR/MR abdomen wo con IMPRESSION: 1. No biliary duct dilatation. No evidence of choledocholithiasis. 2. Nonspecific mild dilatation of the proximal main pancreatic duct. Further evaluation with ERCP could be obtained if clinically deemed appropriate. 3. Hepatic steatosis.
== END 2022-07-09 14:17 | disposition home or self-care (01) ==
LOC: HO.MRI 14:16
PROVIDERS: PCP Internal Medicine; Visit Provider Internal Medicine
DX: R10.9 Unspecified abdominal pain (principal)
CPT/HCPCS: 74181

== ENCOUNTER 2022-07-18 15:24 | Outpatient (RCR) | payer MEDICARE, MEDICAID, SELFPAY ==
--- NOTE | ~2022-07-18 | XR_ITS ---
EXAMINATION: XR FOOT, LEFT CLINICAL INFORMATION: Chronic ulcer COMPARISON: 05/03/2022 TECHNIQUE: 3 views of the left foot. FINDINGS: There is soft tissue irregularity/ulceration distal, medial to the distal phalanx of the great toe. The underlying phalanx is intact. No erosions or periostitis. Bones have normal alignment. There are osteophytes of the mildly degenerated great toe metatarsophalangeal joint. 25 degrees of hallux valgus. Plantar calcaneal enthesophyte is present. Peripheral vessels are calcified. XR/XR foot LT min 3V IMPRESSION: * Soft tissue irregularity/ulceration of the great toe. No radiographic evidence of osteomyelitis. 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 * Peripheral vascular disease.
[2022-07-18 15:36] LABS: MANUAL DIFF FLAG NO
[2022-07-18 15:43] LABS: Basophils Absolute Auto 0.1 X10*3/uL (0.0-0.2); Basophils Percent Auto 0.7 % (0-2); Eosinophils Absolute Auto 0.3 X10*3/uL (0.0-0.4); Hemoglobin 13.3 g/dl (14.0-18.0); Imm Gran Abs Auto 0.02 X10*3/uL (0.00-0.03); Imm Gran Pct Auto 0.2 % (0.0-0.4); Lymphocytes Absolute Auto 2.3 X10*3/uL (1.2-4.9); Lymphocytes Percent Auto 28.5 % (20-40); Mean Corpuscular HGB Conc 32.4 g/dl (31.0-36.0); Mean Corpuscular Hemoglobin 26.5 pg (27.0-33.0); Mean Corpuscular Volume 81.8 fL (80.0-98.0); Mean Platelet Volume 11.3 fL (9.4-12.4); Monocytes Absolute Auto 0.9 X10*3/uL (0.1-1.2); Monocytes Percent Auto 11.1 % (2-11); Neutrophils Absolute Auto 4.5 x10*3/uL (2.0-8.3); Neutrophils Percent Auto 55.5 % (45-73); Platelet Count 291 X10*3/uL (160-400); Red Blood Count 5.01 X10*6/uL (4.60-5.80); White Blood Count 8.2 X10*3/uL (4.8-10.8)
[2022-07-18 16:00] LABS: Estimated Average Glucose 212 mg/dL
[2022-07-18 16:12] LABS: Anion Gap 13 (12-20); Blood Urea Nitrogen 23 mg/dL (9-16); C Reactive Protein 0.23 mg/dL (< or = 0.50); Calcium 9.6 mg/dL (8.4-10.2); Carbon Dioxide 25 mmol/L (22-29); Chloride 106 mmol/L (96-108); Estimated Glomerular Filt Rate 31; Glucose Random 151 mg/dL (60-115); Potassium 4.7 mmol/L (3.3-5.1); Sodium 139 mmol/L (135-145)
[2022-07-18 16:37] LABS: Erythrocyte Sedimentation Rate 12 MM/HR (0-15)
== END 2022-07-25 13:30 | disposition home or self-care (01) ==
LOC: HO.WCC 15:24
PROVIDERS: PCP Internal Medicine; Visit Provider Physician Assistant
DX: E11.621 Type 2 diabetes mellitus with foot ulcer (principal); L97.521 Non-pressure chronic ulcer of other part of left foot limited to breakdown of skin; L84 Corns and callosities; I12.9 Hypertensive chronic kidney disease with stage 1 through stage 4 chronic kidney disease, or unspecified chronic kidney disease; N18.9 Chronic kidney disease, unspecified; I25.10 Atherosclerotic heart disease of native coronary artery without angina pectoris; I25.2 Old myocardial infarction; Z86.73 Personal history of transient ischemic attack (TIA), and cerebral infarction without residual deficits; Z79.899 Other long term (current) drug therapy; Z79.52 Long term (current) use of systemic steroids
CPT/HCPCS: 11042; 36415; 73630; 80048; 83036; 84134; 85025; 85652; 86140; 99212

== ENCOUNTER → 2022-07-24 15:38 | Outpatient (BNVA) | payer MEDICARE, SELFPAY | PROVIDERS: PCP Internal Medicine; Visit Provider Urology | DX: R39.15 Urgency of urination (principal); R35.1 Nocturia; R31.0 Gross hematuria | CPT/HCPCS: 51798; 99212 ==

== ENCOUNTER 2022-08-22 14:42 | Outpatient (RCR) | payer MEDICARE, MEDICAID, SELFPAY | END 2022-09-04 11:52 | disposition home or self-care (01) | LOC: HO.WCC 14:42 | PROVIDERS: PCP Internal Medicine; Visit Provider Surgery | DX: E11.621 Type 2 diabetes mellitus with foot ulcer (principal); L97.522 Non-pressure chronic ulcer of other part of left foot with fat layer exposed; E11.42 Type 2 diabetes mellitus with diabetic polyneuropathy; E11.22 Type 2 diabetes mellitus with diabetic chronic kidney disease; I12.9 Hypertensive chronic kidney disease with stage 1 through stage 4 chronic kidney disease, or unspecified chronic kidney disease; N18.9 Chronic kidney disease, unspecified; L84 Corns and callosities; Z86.19 Personal history of other infectious and parasitic diseases | CPT/HCPCS: 11042; 99212 ==

== ENCOUNTER 2022-08-25 08:13 | Emergency (ER) | payer OTHER, MEDICARE, SELFPAY ==
--- NOTE | ~2022-08-25 | MR_ITS ---
EXAMINATION: MR BRAIN WITHOUT CONTRAST CLINICAL INFORMATION: L eye floaters/blurry vision COMPARISON: Same day CT head without contrast TECHNIQUE: Multiplanar multisequence MR imaging of the brain was obtained without intravenous contrast. FINDINGS: There is no acute infarct on diffusion-weighted imaging. There is no intracranial hemorrhage on iron-sensitive imaging. No extra-axial collection or mass effect/herniation. Scattered periventricular and deep white matter T2 FLAIR hyperintensities consistent with mild underlying microangiopathy. There are multiple chronic infarcts involving the bilateral cerebellar hemispheres, largest involving the inferior left cerebellum. There is associated gliosis of the deep cerebellar white matter, ex vacuo dilatation of the fourth ventricle, and atrophy of the meli and cerebellar peduncles. Chronic infarct involving the medial left occipital lobe. No hydrocephalus. Mild supratentorial volume loss with commensurate sulcal and ventricular prominence. The major flow voids at the skull base are preserved. The cerebellar tonsils are normally positioned. The craniocervical junction is normal. Facet arthropathy of the upper cervical spine. Marrow signal is within normal limits. The visualized soft tissues are without significant abnormality. Right mastoid effusion and small left mastoid fluid. MR/MR head/brain wo con IMPRESSION: 1. No acute intracranial abnormality. 2. Chronic infarcts involving the left occipital lobe and left greater than right cerebellar hemispheres
--- NOTE | ~2022-08-25 | CT_ITS ---
EXAMINATION: CT HEAD WITHOUT CONTRAST CLINICAL INFORMATION: Blurry vision. Floaters. COMPARISON: None TECHNIQUE: Contiguous axial imaging was performed from the skull base to vertex without intravenous administration of contrast. This CT examination was performed using dose optimization techniques as appropriate, variously including the following: *Automated exposure control *Adjustment of mA and/or kV according to patient size (this includes techniques or standardized protocols for targeted exams where dose is matched to indication/reason for exam; i.e. extremities or head) *Use of iterative reconstruction technique DLP: 759 mGy-cm FINDINGS: There is no evidence of an extra-axial collection. There is no evidence of intra-axial or extra-axial hemorrhage. There are prominent extra-axial CSF spaces in the posterior fossa, left greater than right. The ventricles and extra-axial CSF spaces are otherwise appropriate. There are bilateral cerebellar infarcts, left greater than right. No previous exams are available for comparison however these appear old. There is is low-attenuation in the left occipital lobe suggestive of infarct as well. This is of uncertain age. There is nonspecific periventricular white matter disease. Review of bone windows is normal. No skull fracture. Visualized paranasal sinuses, mastoid air cells and middle ears are clear. CT/CT head/brain wo IV con IMPRESSION: Bilateral cerebellar infarcts, left greater than right and left occipital infarct. Findings could be better evaluated with MRI if clinically indicated.
[2022-08-25 08:17] VITALS: BP 169/89; PULSE 72; RESP 18; TEMP 36.6; O2SAT 98; BMI 34.9
--- OUTSIDE RECORDS SUMMARY | 2022-08-25 08:27 | XMS_ITS | Encounter Summary ---
:1950 Author Organization [facility] Address [address] [place] [address] Support Name Relationship Address Phone THANIA BERGER Rosmery [place] [address] AMELIA BERGER Unavailable [address] [place] [address] Insurance Providers: All historical and current Section [...] A[employer] INS PRESCRIPT MEDIC Sep 16, PDPIND [id number] [phone] YESSI BERGERZhane PATIENT ION ARE D 2017 [id number] IS MEDICAID MEDICAID [facility] Jul 17, MEDICAI [id number] YESSI BERGERZhane PATIENT EALTH 2014 D [id number] IS STAND CHRISTOPHER MEDICARE MEDICARE PART Sep 16, PART A [id number] [phone] Rosmery BERGER PATIENT (WNR) (M) A 2010 00 IS MEDICARE MEDICARE PART Sep 16, PART B [id number] [phone] Rosmery BERGER PATIENT (WNR) (M) B 2010 00 IS MEDICARE MEDICARE PART Sep 16, PART B [id number] Rosmery BERGER PATIENT (WNR) (M) B 2010 [id number] IS MEDICARE MEDICARE PART Sep 16, PART A [id number] Rosmery BERGER PATIENT (WNR) (M) A 2010 [...] Encounter Template Text not used by [place] Assessments - Encounter Diagnoses This section includes the primary and secondary diagnoses documented for the Encounter. Date/Time Primary/Secondary Diagnosis Name Provider Source Diagnosis Nov 01, 2021 PRIMARY Hypertensive JOVI RAMOS [place] CNT WSTRN 03:00 PM chronic kidney [facility] [place] [facility] disease w stg 1-4/unsp chr kdny Nov 01, 2021 SECONDARY Anemia in chronic JOVI RAMOS [place] CNTL W[place] 03:00 PM kidney disease [facility] [place] [facility] Nov 01, 2021 [facility]OND[facility]00 PM disease, stage 3a [facility] [place] [facility] Nov 01, 2021 [facility]OND[facility]00 PM unspecified [facility] [place] [facility] Nov 01, 2021 SECONDARY Type 2 diabetes JOVI RAMOS [facility] WS TRN 03:00 PM mellitus w [facility] [place] [facility] diabetic chronic kidney disease Plan of Treatment: Future Appointments (+ 6 months) and Future Tests (+/- 45 days) The Plan of Treatment section includes future care activities for the patient from all [place] treatmentfacilities. This section includes future appointments and future orders which are active, pending orscheduled.Future Appointments This section includes appointments that were scheduled to occur 6 months from the date of the Encounter, up to a maximum of 20 appointments. The data comes from all [place] treatment facilities. Appointment Date/Time Appointment Type Appointment Facili ty Name Nov 10, 2021 10:00 AM [facility] - [facility] Nov 13, 2021 09:00 AM [facility] - [facility] Nov 16, 2021 02:30 PM [facility] - [facility] Nov 16, 2021 03:00 PM [facility] Dec 21, 2021 03:30 PM [facility] - [facility] Jan 05, 2022 03:30 PM [facility]ORY MEDICINE [facility] [place] [place] [facility] January 23, 2022 03:00 PM [facility] Feb 14, 2022 08:00 AM [facility] Mar 06, 2022 03:00 PM [facility] Mar 09, 2022 12:00 PM [facility] Mar 23, 2022 01:30 PM [facility] Mar 26, 2022 04:00 PM [facility] Apr 02, 2022 04:00 PM [facility] Apr 17, 2022 03:15 PM [facility] Lab Results: +/- 30 days of the encounter This section includes the Chemistry and Hematology Lab Results on record with [place] for the patient. Radiology Reports and Pathology Reports are provided separately, in subsequent sections.Lab Results This section contains the Chemistry/Hematology Results that were resulted 30 days before or 30 daysafter the date of the Encounter. Date/Time Source Result Type Result - Unit Interpretation Reference Range Comment Nov 16, 2021 [facility] BASIC METABOLIC PANEL Specimen Type: SERUM 02:27 PM [facility] (non-fasting) No comment enter ed. Ordering Provid er: DELMER STALLINGS Report Released Date/Time: Oct 25, 2021 12:46 PM Reporting Lab: [facility] [address] Performing Lab: [facility] [address] UREA NITROGEN 27 H 7-25 GLUCOSE 349 H 65-100 SODIUM 135 135-145 POTASSIUM 4.4 3.5-5.0 CHLORIDE 100 100-110 CO2 26 20-30 CREATININE, Serum 1.89 H 0.50-1.40 eGFR (IDMS) 36 L >60 Oct 18, 2021 10:04 AM [facility] PSA Specimen Type: SERUM Comment: *BASIC METABOLIC PANEL (fasting) Not Performed: Oct 18, 2021@10:05 b *CONTINUOUS STILL OPERATOR Reason: DUP ORDER Ordering Provid er: AMBIKA KNIGHT Report Released Date/Time: May 11, 2021 01:37 PM Reporting [facility] [address] [address] Performing Lab: [facility] [place] [facility] [address] [facility] [address] PSA 1.68 0.00-4.00 Oct 18, 2021 10:04 AM [facility] TSH Specimen Type: SERUM Comment: *BASIC METABOLIC PANEL (fasting) Not Performed: Oct 18, 2021@10:05 b *CONTINUOUS STILL OPERATOR Reason: DUP ORDER Ordering Provid er: AMBIKA KNIGHT Report Released Date/Time: May 11, 2021 01:37 PM Reporting Lab: [facility] [place] [facility] [address] [facility] [address] Performing Lab: [facility] [address] [facility] [address] TSH 2.37 0.35-5.00 Oct 18, 2021 10:04 [facility] LIPID PANEL FASTING Specimen Type: SERUM AM [facility] No comment enter ed. Ordering Provid er: DELMER STALLINGS Report Released Date/Time: Jul 24, 2021 04:34 PM Reporting Lab: [facility] [address] [facility] [address] Performing Lab: [facility] [address] [facility] [address] CHOLESTEROL 176 <7-199 TRIGLYCERIDE 179 H 0-150 LDL calculated 108 0-129 CHOL/HDL 5.5 HDL CHOLESTEROL 32 L 40-60 Oct 18, 2021 [facility] HEMO[facility] A1C PANEL Specimen T ype: BLOOD 10:04 AM [facility] Comment: Testin g performed by NGSP [...] Jul 24, 2021 04:34 PM Reporting Lab: [facility] [place] [facility] [address] [facility] [address] Performing Lab: [facility] [place] [facility] [address] [facility] [address] HEMOGLOBIN A1C 9.7 H 4.0-5.6 Oct 18, 2021 10:04 [facility] [place] ALBUMIN S pecimen Type: SERUM AM [facility] No comment enter ed. Ordering Provid er: MELANIA RAMOS Report Released Date/Time: Jun 28, 2021 09:09 AM Reporting Lab: [facility] [place] [facility] [address] [address] Performing Lab: [facility] [place] [facility] [address] [facility] [address] ALBUMIN 4.0 3.5-5.0 Oct 18, 2021 [facility] VITAMIN D (25-[place]) Specimen Type : SERUM 10:04 AM [place] [facility] No comment enter ed. Ordering Provid er: MELANIA RAMOS Report Released Date/Time: Jun 28, 2021 09:09 AM Reporting Lab: [facility] [place] [facility] [address] [facility] [address] Performing Lab: [facility] [place] [facility] [address] [address] VITAMIN D (25-[place]) 37 20-50 Oct 18, 2021 [facility] BASIC METABOLIC PANEL Specimen Type: SERUM 10:04 AM [place] [facility] (non-fasting) No comment enter ed. Ordering Provid er: MELANIA RAMOS Report Released Date/Time: Jun 28, 2021 09:09 AM Reporting Lab: [facility] [place] [facility] [address] [facility] [address] Performing Lab: [facility] [place] [facility] [address] [address] UREA NITROGEN 21 7-25 GLUCOSE 302 H 65-100 SODIUM 136 135-145 POTASSIUM 4.7 3.5-5.0 CHLORIDE 103 100-110 CO2 24 20-30 CREATININE, Serum 1.74 H 0.50-1.40 eGFR (IDMS) 39 L >60 Oct 18, 2021 10:04 AM [facility] [place] CBC Specimen Type: BLOOD [facility] No comment enter ed. Ordering Provid er: MELANIA RAMOS Report Released Date/Time: Jun 28, 2021 09:09 AM Reporting Lab: [facility] [place] [facility] [address] [facility] [address] Performing Lab: [facility]N [facility] [address] [facility] [address] WBC 7.69 4.50-11.00 RBC 5.16 4.23-5.66 HGB [...] 11, 2021 01:18 PM VA-TOBACCO NEVER USED [facility] NTRL TRN [facility] Encounter Notes: All associated encounter notes This section contains the clinical notes associated to the Encounter. Date/Time Encounter Note(s) Provider Source Nov 01, 2021 08:57 NEPHROLOGY E & M NOTE: MELANIA RAMOS [facility] LOCAL TITLE: NEPHROLOGY NOTE [place] [facility] STANDARD TITLE: NEPHROLOGY E & M NOTE DATE OF NOTE: NOV 01, 2021@20:57 ENTRY DATE: NOV 01, 2021@20:57:13 AUTHOR: MELANIA RAMOS EXP COSIGNER: URGENCY: STATUS: [...] and he was not available at this [facility] appt. There has been report of patient's having problems with hypoten roro after having Covid which this patient has had. Will try to obtain an [facility] deb list of his medications. @3. Diabetes: [...] His diabetes is being managed but his faculty support coordinator. #4. Hyperlipidemia: The patient's lipid studies this [...] or non-VA provider. /jamal/ MELANIA RAMOS M.D. GOVERNOR ASSEMBLER MAIL HANDLER ASSISTANT Signed: 11/08/2021 16:10 Oct 24, 2021 10:54 TELEPHONE ENCOUNTER NOTE: ROCKY MCCAULEY [place] CN[facility] W[place] AM LOCAL TITLE: TELEPHONE NOTE/SPECIALTY CLINIC [facility] STANDARD TITLE: TELEPHONE ENCOUNTER NOTE DATE OF NOTE: OCT 24, 2021@10:54 ENTRY DATE: OCT 24, 2021@10:54:18 AUTHOR: ROCKY MCCAULEY EXP COSIGNER: URGENCY: STATUS: COMPLETED Called and reminded [place] of his Nephrology te l-x visit on 11-01-21 @1500. /jamal/ ROCKY Mccauley LPN LICENSED PRACTICAL NURSE Signed: 10/24/2021 10:54
--- OUTSIDE RECORDS SUMMARY | 2022-08-25 08:27 | XMS_ITS | Continuity of Care Document ---
:1950 Author Organization [facility] Care Team Providers Name Role Phone [facility] Unavailable Unavailable Problems Combined list of problems from Department of Defense and Veterans Affairs facilities. It does not include entries that were removed or entered in error. Problem Status Onset Problem Date of Comments Source Date Type Resolution MRSA SKIN INFECTION Active Condition [place] 009 Allergy to peanuts Active Condition S [...] KNIGHT Comment: 03/2020 d/c summary scanned into [employer] imaging Cervical Active Condition Sep 23 [facility] Radiculopathy 2006 Entered WST RN By: AMBIKA CASTANEDA [facility] Comment: s/p spinal surgery c7-t1. mri 07/21 [...] [place] disease Claudication (SNOMED Active Condition [place] 521873489) Cocaine abuse, Active Condition [facility] continuous use Colorectal Cancer Active Condition May 23 S [facility] Screening Results 2010 Entered Documented and By: Reviewed (PV) AMBIKA KNIGHT Comment: colonoscopy 04/26 tics in sigmoid, '15 dr galloway +polyps Computed tomography Active Condition February 09 [place] result abnormal 2017 Entered By: AMBIKA KNIGHT Comment: ct angiogram 12/14/17 negative for PE. R lung nodules. scanned into vista imaging Corneal Abrasion Active Condition [facility] (ICD-9-CM 918.1) [facility] [place] [facility] Coronary artery Active Condition [place] disease, [place]p [place] [facility] Cyst, ganglion Active Condition [facility] [place] [facility] Depressive disorder Active Condition [facility] Depressive Disorder Active Condition [facility] NOS [facility] [place] [facility] Diabetes mellitus Active Condition [place] (SNOMED CT 83658917) Diabetic Active Condition [facility] Neuropathies [facility] [place] [facility] DM Active [facility] Elevated Prostate Active Condition Feb 17, [place] Specific antigen 2012 Entered [psa] By: AMBIKA KNIGHT Comment: prostate biopsy negative 01/26 Erectile dysfunction Active Condition [facility] [place] [facility] Essential Active Condition [place] hypertension GERD * (ICD-9-CM Active Condition [place] 530.81) HTN Active Condition [facility] hyperlipidemia [place] [facility] Hyperlipidemia Active Condition [facility] (SNOMED CT 03346626) [facility] [place] [facility] Hypertension (SNOMED Active Condition [facility] 07018313) [facility] [place] [facility] 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[place] of Prostate with Urinary obstruction and other lower Urinar Impotence of organic Active Condition [place] origin (ICD-9-CM 607.84) Low back pain Active Condition Aug 06, [place] 2018 Entered By: AMBIKA KNIGHT Comment: mri ls spine 06/28/19 scanned into vista imaging Low Back Pain * Active Condition [place] (ICD-9-CM 724.2) 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 nuclear stress test 05/26 no new ischemia Onychomycosis * Active Condition [facility] (ICD-9-CM 110.1) [facility] [place] [facility] Osteoarthritis Active Condition [place] Overweight Active Condition [place] Overweight (SNOMED Active Condition S [facility] CT 056495805) Postsurgical Active Condition May 09 [facility] Percutaneous 2009 Entered Transluminal By: Coronary Angioplasty BRONWYN KNIGHT Status Comment: rca bare metal stent 04/25.LVgram hypokinesis/ak inesis infero May 09, 2010 Entered By: AMBIKA KNIGHT Comment: lateral region ef 50%. pharm. myocardial scan negative for Jul 09, 2013 Entered By: AMBIKA KNIGHT Comment: significant ischemia 06/28 Postsurgical Status Active Condition Oct 14, [place] of Cataract 2009 Entered Extraction By: AMBIKA KNIGHT Comment: right 09/25 Shoulder Pain Active Condition [facility] [place] [facility] Simple upper Active Condition May 23, [facility] Gastrointestinal 2010 Entered Endoscopy By: AMBIKA KNIGHT Comment: 04/26 inflammation duodenum/ge junction c/w gerd Type II diabetes Active Condition [facility] [place] mellitus UTI Active Condition [facility] [place] [facility] Diagnosis: ICD-10-CM Active Diagnosis [facility] E11.9 Type 2 WSTRN diabetes mellitus [place] without HCS complicationswith Provider Comments: Diabetes mellitus ([facility] [id number]) Diagnosis: ICD-10-CM Active Diagnosis [facility] N52.9 Male erectile [place] dysfunction, [place] unspecifiedwith HCS Provider Comments: Erectile dysfunction (SNOMED CT 500926525) Diagnosis: ICD-10-CM Active Diagnosis [place] L89.90 Pressure ulcer of unspecified site, unspecified stagewith Provider Comments: Pressure Ulcer of unspecified site, unspecified Stage Diagnosis: ICD-10-CM Active Diagnosis [facility] N18.31 Chronic [place]N kidney disease, [place] stage 3awith HCS Provider Comments: Chronic kidney disease, stage 3a Diagnosis: ICD-10-CM Active Diagnosis [facility] E11.8 Type 2 WSTRN diabetes mellitus [place] with unspecified HCS complicationswith Provider Comments: Type II diabetes mellitus ([facility] [id number]) Diagnosis: ICD-10-CM Active Diagnosis [place] L84 Corns and callositieswith Provider Comments: Corns and callosities Diagnosis: ICD-10-CM Active Diagnosis [place] M79.675 Pain in left toe(s)with Provider Comments: Pain in left Toe(s) Diagnosis: ICD-10-CM Active Diagnosis [place] L02.612 Cutaneous abscess of left footwith Provider Comments: Cutaneous Abscess of left Foot Diagnosis: ICD-10-CM Active Diagnosis [place] S90.412S Abrasion, left great toe, sequelawith Provider Comments: Abrasion, left Great Toe, [place]ela Diagnosis: ICD-10-CM Active Diagnosis [place] E11.51 Type 2 diabetes w diabetic peripheral angiopath w/o gangrenewith Provider Comments: Type 2 Diabetes Mellitus with Diabetic Peripheral Angiopathy without Gangrene Diagnosis: ICD-10-CM Active Diagnosis [facility] E11.65 Type 2 WSTRN diabetes mellitus [place] with HCS hyperglycemiawith Provider Comments: Type 2 diabetes mellitus with hyperglycemia Diagnosis: ICD-10-CM Active Diagnosis [facility] Z51.81 Encounter for WSTRN therapeutic drug [place] level monitoringwith [facility] Provider Comments: Therapeutic Drug Level Monitoring Diagnosis: ICD-10-CM Active Diagnosis [place] I95.1 Orthostatic hypotensionwith Provider Comments: Orthostatic Hypotension Diagnosis: ICD-10-CM Active Diagnosis [place] L60.0 Ingrowing nailwith Provider Comments: Ingrowing Nail Diagnosis: ICD-10-CM [facility] I12.9 Hypertensive W STRN chronic kidney [place] disease w stg HCS 1-4/unsp chr kdnywith Provider Comments: Hypertensive Chronic Kidney Disease with Stage 1 through Stage 4 Chronic Kidney Disease, or unspecified Chronic Kidney Disease Diagnosis: ICD-10-CM Active Diagnosis [place] E11.9 Type 2 diabetes mellitus without complicationswith Provider Comments: Type 2 Diabetes Mellitus without Complications Diagnosis: ICD-10-CM Active Diagnosis [facility] I10 Essential W[facility] (primary) [place] hypertensionwith [facility] Provider Comments: Hypertension ([facility] [id number]) Diagnosis: ICD-10-CM Active Diagnosis [place] N52.8 Other male CBO C erectile dysfunctionwith Provider Comments: Other Male Erectile Dysfunction Diagnosis: ICD-10-CM Active Diagnosis [place] G46.4 Cerebellar stroke syndromewith Provider Comments: Cerebellar stroke syndrome ([facility] [id number]) Medications Combined list of outpatient medications from Department of Defense and Veterans Affairs facilities. Medications provided include 1) outpatient medications from the last 15 months, and 2) patient-reported medications. Medication Details Route Status Patient Prescription Prescription Last Ordering Order Source Instructions Expires Number Dispense Provider Date Date ALCOHOL USE 1 TOPICA ACTIVE LAMONT STALLINGS VA PREP PAD PAD LLY 2020 CNTRL TOPICALL WSTRN Y FOUR [place] TIMES A SETS DAY HCS APIXABAN TAKE ONE ORAL ACTIVE [place],AL VA 5MG TAB TABLET ICE 2020 CNTRL BY MOUTH WSTRN ONCE [place] DAILY SETS HCS ASPIRIN TAKE ONE ORAL ACTIVE [place],AL 81MG TAB,EC TABLET 2016 CNTRL BY MOUTH [place] DAILY [place] HCS DULAGLUTIDE INJECT SUBCUT ACTIVE 08/17/2023 [id number] STALL[place] ,AL VA 0.75MG/0.5M 0.75MG ANEOUS 2 2021 CNTRL L SUBCUTAN WSTRN INJ,SOLN,PE EOUSLY [place] ONCE A SETS WEEK HCS FERROUS SO4 TAKE ONE ORAL ACTIVE 07/05/2023 [id number] WHITA KER, 325MG TAB TABLET 2 MELANIA A 2021 CNTRL BY MOUTH WSTR[place] ONCE [place] DAILY TO SETS SUPPLEME HCS NT IRON FEXOFENADIN TAKE ONE ORAL ACTIVE [place],AL VA E HCL 60MG TABLET 2018 CNTRL TAB BY MOUTH WSTRN ONCE [place] DAILY SETS HCS FINASTERIDE TAKE ONE ORAL ACTIVE BRONWYN KNIGHT springF 5MG TAB TABLET JAZMIN 2021 IELD BY MOUTH ONCE DAILY GLUCAGON INJECT 1 INTRAM 04/23/2022 [id number] [place] ,AL VA 1MG/JEY INJECTIO USCULA 2 2021 CNTRL INJ,EMERGEN N R WSTRN CY KIT INTRAMUS [place] CULARLY SETS ONE TIME HCS NEEDED FOR SEVERE LOW BLOOD SUGAR INSULIN,ASP INJECT SUBCUT ACTIVE 06/15/2023 [id number] [place] ,AL VA ART,HUMAN 25 UNITS ANEOUS 2 2021 CNTRL 100U/ML,NOV SUBCUTAN WSTRN OLOG,FLEXPE EOUSLY [place] N,3ML THREE SETS TIMES A HCS DAY INSULIN,ASP INJECT SUBCUT DISCONT 01/24/2023 [id number] ABB DAGMAR,AL VA ART,HUMAN 25 UNITS ANEOUS INUED 2 2021 CNTRL 100U/ML,NOV SUBCUTAN (EDIT) WSTR N OLOG,FLEXPE EOUSLY [place] N,3ML THREE SETS TIMES A HCS DAY INSULIN,ASP INJECT SUBCUT DISCONT 01/09/2023 [id number] ABB LAMONT LEAVITT 03/25/ MS ART,HUMAN 20 UNITS ANEOUS INUED 2 2021 CNTRL 100U/ML,NOV SUBCUTAN (EDIT) WSTR N OLOG,FLEXPE EOUSLY [place],3ML THREE SETS TIMES A HCS DAY INSULIN,ASP INJECT SUBCUT DISCONT 12/03/2022 [id number] ABB LAMONT LEAVITT 12/29/ MS ART,HUMAN 18 UNITS ANEOUS INUED 2 2021 CNTRL 100U/ML,NOV SUBCUTAN (EDIT) WSTR N OLOG,FLEXPE EOUSLY [place],3ML THREE SETS TIMES A HCS DAY INSULIN,ASP INJECT SUBCUT DISCONT 11/24/2022 [id number] ABB LAMONT LEAVITT 01/14/ MS ART,HUMAN 11 UNITS ANEOUS INUED 2 2021 CNTRL 100U/ML,NOV SUBCUTAN (EDIT) WSTR N OLOG,FLEXPE EOUSLY [place],3ML THREE SETS TIMES A HCS DAY INSULIN,ASP INJECT 8 SUBCUT DISCONT 10/26/2022 [id number] A BBDAGMAR,AL 10/25/ MS ART,HUMAN UNITS ANEOUS INUED 2 2021 CNTRL 100U/ML,NOV SUBCUTAN (EDIT) WSTR N OLOG,FLEXPE EOUSLY [place],3ML EVERY SETS MORNING HCS AND INJECT 9 UNITS ONCE DAILY AT LUNCH AND INJECT 9 UNITS EVERY EVENING BEFORE SUPPER INSULIN,ASP INJECT 7 SUBCUT DISCONT 01/06/2022 [id number] A BBOTT,AL 01/06/ MS ART,HUMAN UNITS ANEOUS INUED 1 2020 CNTRL 100U/ML,NOV SUBCUTAN (EDIT) WSTR N OLOG,FLEXPE EOUSLY [place],3ML EVERY SETS MORNING HCS AND INJECT 5 UNITS ONCE DAILY AT LUNCH AND INJECT 5 UNITS EVERY EVENING BEFORE SUPPER INSULIN,GLA INJECT SUBCUT HOLD 06/15/2023 [id number] [place]ALL[place],AL 0 06/15/ VA RGINE,HUMAN 75 UNITS ANEOUS 2021 CNTR L 100 UNIT/ML SUBCUTAN WSTRN INJ,SOLOSTA EOUSLY [place] R,3ML ONCE SETS DAILY HCS FOR DIABETES INSULIN,GLA INJECT SUBCUT DISCONT 01/24/2023 [id number] LAMONT MADDEN VA RGINE,HUMAN 68 UNITS ANEOUS INUED 2 2021 CNTR L 100 UNIT/ML SUBCUTAN (EDIT) WSTR N INJ,SOLOSTA EOUSLY [place],3ML ONCE SETS DAILY HCS FOR DIABETES INSULIN,GLA INJECT SUBCUT DISCONT 12/03/2022 [id number] LAMONT MADDEN 12/29/ VA RGINE,HUMAN 60 UNITS ANEOUS INUED 2 2021 CNTR L 100 UNIT/ML SUBCUTAN (EDIT) WSTR N INJ,SOLOSTA EOUSLY [place],3ML ONCE SETS DAILY HCS FOR DIABETES INSULIN,GLA INJECT SUBCUT DISCONT 10/26/2022 [id number] LAMONT MADDEN VA RGINE,HUMAN 55 UNITS ANEOUS INUED 2 2021 CNTR L 100 UNIT/ML SUBCUTAN (EDIT) WSTR N INJ,SOLOSTA EOUSLY [place],3ML ONCE SETS DAILY HCS FOR DIABETES INSULIN,GLA INJECT SUBCUT DISCONT 01/06/2022 [id number] LAMONT MADDEN 01/06/ VA RGINE,HUMAN 70 UNITS ANEOUS INUED 2 [...] TWICE DAILY MIRABEGRON TAKE ONE ORAL ACTIVE BRONWYN KNIGHT 07/05/ [place] 25MG TAB,SA TABLET 2021 IELD BY MOUTH [...] MINUTES BEFORE BREAKFAS T SEMAGLUTIDE INJECT SUBCUT DISCONT 06/15/2023 [id number] ABB DAGMAR,AL 07/02/ VA 0.5MG/0.375 0.25MG ANEOUS INUED 2 2021 CNTRL ML SUBCUTAN WSTRN INJ,SOLN,PE EOUSLY [place],1.5ML ONCE A SETS WEEK FOR HCS 28 DAYS, THEN INJECT 0.5MG ONCE A WEEK SILDENAFIL TAKE ONE ORAL DISCONT 09/02/2021 [id number] BRONWYN KNIGHT 09/01/ VA CITRATE TABLET INUE 1 2019 CNTRL 100MG TAB BY MOUTH WSTRN ONE TIME [place]S NEEDED HCS TAKE 1 HOUR PRIOR TO SEXUAL ACTIVITY TADALAFIL TAKE ONE ORAL ACTIVE 07/31/2023 [id number] [place], AL 07/31/ VA 10MG TAB TABLET 2 2021 CNTRL BY MOUTH WSTRN ONE TIME [place] NEEDED HCS FOR SEXUAL ACTIVITY TADALAFIL TAKE ONE ORAL DISCONT 07/14/2023 [id number] ABBOT T,AL VA 10MG TAB TABLET INUED 2 2021 CNTRL BY MOUTH (EDIT) WSTRN ONCE [place] DAILY SETS NEEDED HCS TADALAFIL TAKE ONE ORAL DISCONT 06/15/2023 [id number] ABBOT T,AL 06/15/ VA 10MG TAB TABLET INUED 2 2021 CNTRL BY MOUTH WSTRN ONCE [place] DAILY SETS NEEDED HCS TADALAFIL TAKE ONE ORAL DISCONT 01/24/2023 [id number] ABBOT T,AL VA 10MG TAB TABLET INUED 2 2021 CNTRL BY MOUTH WSTR[place] ONCE [place] DAILY SETS NEEDED HCS TADALAFIL TAKE ONE ORAL DISCONT 07/23/2022 [id number] ANTONIA,A NNM springF 10MG TAB TABLET INUED 1 2020 IELD BY MOUTH ONCE DAILY NEEDED VALSARTAN TAKE ONE ORAL ACTIVE [place]ALL[place],AL A 40MG TAB TABLET ICE 2020 CNTRL [...] atus Comments Source Given By 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 Guy kendall VA SEASONAL, 2017 ed CNTR L INJECTABLE WST RN [place] [facility] ZOSTER 2 complet SPRI NGF RECOMBINANT 2017 ed IE LD ZOSTER 1 complet SPRI NGF RECOMBINANT 2017 ed IE LD INFLUENZA, complet Site: [facility], 2016 ed Left IELD INJECTABLE Deltoid FLU,3 YRS complet Site: [facility] (HISTORICAL) 2015 ed Left I ELD Deltoid ZOSTER LIVE complet 2012 ed IELD FLU,3 YRS complet Site: [place] (HISTORICAL) 2012 ed Left I ELD Deltoid FLU,3 YRS complet Site: S MARY J[place] (HISTORICAL) 2010 ed Left I ELD Deltoid DTAP, complet Site: [place] UNSPECIFIED 2010 ed Left IE LD FORMULATION Deltoid FLU,3 YRS complet V A (HISTORICAL) 2009 ed C NTRL [facility] [place] [facility] NOVEL complet [employer] SP [place] INFLUENZA-H1N 2009 ed IELD 1-09, ALL FORMULATIONS FLU,3 YRS complet Site: S [place] (HISTORICAL) 2008 ed Right I ELD Deltoid FLU,3 YRS complet Site: S [place] (HISTORICAL) 2008 ed Left I ELD Deltoid FLU,3 YRS complet Site: [place] [facility] (HISTORICAL) 2006 ed Right I ELD [place] PNEUMOCOCCAL, 07/15/ PHIL DIAZ 109 comp let UNSPECIFIED 2006 ed IE LD FORMULATION FLU,3 YRS complet S MARY JANE (HISTORICAL) 2006 ed I ELD FLU,3 YRS 07/07/ EPHRAIM NINA 88 complet [place] (HISTORICAL) 2002 AM M ed I ELD FLU,3 YRS 08/18/ WINIFRED MENJIVAR 88 complet [place] (HISTORICAL) 2000 G ed I ELD FLU VACCINE complet VA (HISTORICAL) 1999 ed C NTRL [facility] [place] [facility] PNEUMOCOCCAL, 05/28/ EPHRAIM NINA 109 com plet UNSPECIFIED 1996 AM M ed IE LD FORMULATION Results [...] 2022 08:21 AM TS HCS Reporting Lab: [place] [facility] [place] [facility] [address] [facility] [facility] [address] Performing Lab: [facility] [place] [facility] [address] [facility] [address] IRON & IRON 381 204 - 475 06/08 Specimen Type: SERUM [place] CNTRL TIBC /2021 No comment enter ed. WSTRN PANEL CAPACITY Ordering Provi tye: MELANIA RAMOSUSE [MASS/VOLUM Report Rele ased Date/Time: Feb 14, 2022 08:21 AM TS HCS E] IN SERUM Reporting L ab: [facility] [place] [facility] OR PLASMA [address] [facility] [address] Performing Lab: [facility] [place] [facility] [address] [facility] [address] IRON & IRON 64 40 - 160 06/08 Specimen Type: SERUM [facility] TIBC [MASS/VOLUM /2021 No comment e ntered. WSTRN PANEL E] IN SERUM Ordering Pr ovider: MELANIA RAMOSCHUSE OR PLASMA Report Releas ed Date/Time: Feb 14, 2022 08:21 AM TS HCS Reporting Lab: [facility] [place] [facility] [address] [facility] [address] Performing Lab: [facility] [place] [facility] [address] [facility] [address] IRON & IRON/IRON 16.8 20.0 - 09/ L Specimen Type: SERUM [facility] TIBC BINDING 50.0 /2021 No comment enter ed. WSTRN PANEL CAPACITY.TO Ordering Pr ovider: MELANIA RAMOS RENETTA [MASS Report Rele ed Date/Time: Feb 14, 2022 08:21 AM TS HCS RATIO] IN Reporting Lab : [facility] [place] [facility] SERUM OR [address] [facility] [address] PLASMA Performing Lab: [facility] [place] [facility] [address] [facility] [address] MICROALBU MICROALBUMI 316.8 0 - 29.9 06/08 H Specimen Type: URINE [facility] MIN N/CREATININ /2021 No comment e ntered. WSTRN CREATININ E [MASS Ordering Prov ider: MELANIA RAMOS E RATIO RATIO] IN Report [facility] ed Date/Time: Feb 14, 2022 08:21 AM TS HCS PANEL URINE Reporting Lab: [facility] [place] [facility] [address] [facility] [address] Performing Lab: [place] [facility] [place] [facility] [address] [facility] [address] MICROALBU MICROALBUMI 24.7 06/08 Specimen T ype: URINE [facility] MIN N /2021 No comment enter ed. WSTRN CREATININ [MASS/VOLUM Ordering Provider: MELANIA RAMOS RATIO E] IN URINE Report Rele ased Date/Time: Feb 14, 2022 08:21 AM TS HCS PANEL Reporting Lab: [facility] [place] [facility] [address] [facility] [address] Performing Lab: [facility] [place] [facility] [address] [facility] [address] MICROALBU CREATININE 77.97 06/08 Specimen Ty pe: URINE [facility] MIN [MASS/VOLUM /2021 No comment e ntered. WSTRN CREATININ E] IN URINE Ordering Provider: MELANIA RAMOS E RATIO Report Released Date/Time: Feb 14, 2022 08:21 AM TS HCS PANEL Reporting Lab: [facility] [place] [facility] [address] [facility] [address] Performing Lab: [address] [address] LIPID CHOLESTEROL 146 7 - 199 06/08 Specimen Typ e: SERUM [place] PANEL [MASS/VOLUM /2021 No comment e ntered. LD FASTING E] IN SERUM Ordering Pr ovider: AMBIKA KNIGHT OR PLASMA Report Releas ed Date/Time: Jun 06, 2022 03:16 PM Reporting Lab: [facility] [address] [facility] [facility] [address] Performing Lab: [address] [address] LIPID TRIGLYCERID 238 0 - 150 06/08 H Specimen Typ e: SERUM [place] PANEL E /2021 No comment enter ed. LD FASTING [MASS/VOLUM Ordering Pr ovider: AMBIKA KNIGHT] IN SERUM Report Rele ased Date/Time: Jun 06, 2022 03:16 PM OR PLASMA Reporting Lab : [address] [address] Performing Lab: [address] [address] LIPID CHOLESTEROL 67 0 - 129 06/08 Specimen Typ e: SERUM [place] PANEL IN LDL /2021 No comment enter ed. LD FASTING [MASS/VOLUM Ordering Pr ovider: AMBIKA KNIGHT E] IN SERUM Report Rele ased Date/Time: Jun 06, 2022 03:16 PM OR PLASMA Reporting Lab : [facility] BY [address] [place] [phone] CALCULATION Performing Lab: [address] [address] LIPID CHOLESTEROL 4.7 06/08 Specimen Typ e: SERUM [place] PANEL .TOTAL/CHOL /2021 No comment e ntered. LD FASTING ESTEROL IN Ordering Pro vider: AMBIKA KNIGHT HDL [MASS Report Releas ed Date/Time: Jun 06, 2022 03:16 PM RATIO] IN Reporting Lab : [facility] SERUM OR [address] [facility] [address] PLASMA Performing Lab: [facility] WSTRN [facility] [address] [facility] [address] LIPID CHOLESTEROL 31 40 - 60 09/23 L Specimen Typ e: SERUM [place] PANEL IN HDL /2021 No comment enter ed. LD FASTING [MASS/VOLUM Ordering Pr ovider: AMBIKA KNIGHT] IN SERUM Report Rele ased Date/Time: Jun 06, 2022 03:16 PM OR PLASMA Reporting Lab : [facility] WSTRN [facility] [address] [facility] [address] Performing Lab: [facility] [address] [address] BASIC UREA 24 7 - 25 06/08 Specimen Type: S [facility]OGEN /2021 No comment en tered. WSTRN PANEL [MASS/VOLUM Ordering Pr ovider: MELANIA RAMOS (non-fast E] IN SERUM Report Re leased Date/Time: Feb 14, 2022 08:21 AM [facility] ing) OR PLASMA Reporting Lab : [facility] [address] [facility] [address] Performing Lab: [facility] [address] [address] BASIC GLUCOSE 230 65 - 100 09/ H Specimen Type: [facility]UM [facility] [MASS/VOLUM /2021 No comment entered. WSTRN PANEL E] IN SERUM Ordering Pr ovider: MELANIA RAMOS (non-fast OR PLASMA Report Rele ased Date/Time: Feb 14, 2022 08:21 AM [facility] ing) Reporting Lab: [facility] WSTRN [facility] [address] [facility] [address] Performing Lab: [facility] [address] [address] BASIC SODIUM 136 135 - 145 06/08 Specimen Type: SERUM [facility] [MOLES/VOLU /2021 No comment entered. WSTRN PANEL ME] IN Ordering Provid er: MELANIA RAMOS (non-fast SERUM OR Report Relea sed Date/Time: Feb 14, 2022 08:21 AM TS [facility] ing) PLASMA Reporting Lab: [facility] [address] [facility] [address] Performing Lab: [facility] [address] BASIC POTASSIUM 5.2 3.5 - 5.0 09/23 H Specimen Typ e: SERUM [facility] METABOLIC [MOLES/VOLU /2021 No comment entered. WSTRN PANEL ME] IN Ordering Provid er: MELANIA RAMOS (non-fast SERUM OR Report Relea sed Date/Time: Feb 14, 2022 08:21 AM TS [facility] ing) PLASMA Reporting Lab: [facility] [place] [address] [address] Performing Lab: [facility]N [facility] [address] BASIC CHLORIDE 104 100 - 110 06/08 Specimen Type : SERUM [facility] METABOLIC [MOLES/VOLU /2021 No comment entered. WSTRN PANEL ME] IN Ordering Provid er: MELANIA RAMOS SHARITAJW (non-fast SERUM OR Report Relea sed Date/Time: Feb 14, 2022 08:21 AM TS [facility] ing) PLASMA Reporting Lab: MS CNTRL TRN [address] [address] Performing Lab: [facility] CN[facility] TRN [address] [address] BASIC CARBON 23 20 - 30 06/08 Specimen Type: S EDIE [facility] METABOLIC DIOXIDE, /2021 No comment en tered. WSTRN PANEL TOTAL Ordering Provid er: MELANIA RAMOS (non-fast [MOLES/VOLU Report Re leased Date/Time: Feb 14, 2022 08:21 AM TS [facility] ing) ME] IN Reporting Lab: [facility] SERUM OR [address] [place] [address] PLASMA Performing Lab: MS CNTRL TRN [address] [address] BASIC CREATININE 1.66 0.50 - 09/23 H Specimen Type : SERUM [facility] METABOLIC [MASS/VOLUM 1.40 /2021 No comment entered. WSTRN PANEL E] IN SERUM Ordering Pr ovider: MELANIA RAMOS (non-fast OR PLASMA Report Rele ased Date/Time: Feb 14, 2022 08:21 AM [facility] ing) Reporting Lab: [place] [facility] [place] [facility] [address] [facility] [phone] Performing Lab: [facility] [place] [facility] [address] [facility] [address] BASIC GLOMERULAR 44 60 06/08 L Specimen Type : [facility] /2021 No comment entered. WSTRN PANEL RATE/1.73 Ordering Prov ider: MELANIA RAMOS (non-fast SQ Report Releas ed Date/Time: Feb 14, 2022 08:21 AM TS [facility] ing) [place] Reporting L ab: [facility] [VOLUME [address] [facility] [address] RATE/AREA] Performing L ab: [facility] [place] [facility] [place], [address] [facility] [address] PLASMA OR BLOOD BY CREATININE- BASED FORMULA (CKD-EPI) HEMOGLOBI HEMOGLOBIN 9.4 4.0 - 5.6 06/08 H Specimen Type: BLOOD [place] N A1C A1C/HEMOGLO /2021 Comment: Va lues [...] Jun 06, 2022 03:16 PM Reporting Lab: [facility] [place] [facility] [address] [facility] [address] Performing Lab: [facility]ENTERTRN [facility]ITALUSE[facility] [address] [facility] [address] CBC LEUKOCYTES 7.26 4.50 - 06/08 Specimen Type : BLOOD [facility] [#/VOLUME] 11.00 No comment en tered. WSTRN IN BLOOD BY Ordering Pr ovider: MELANIA RAMOS AUTOMATED Report Releas ed Date/Time: Feb 14, 2022 08:21 AM TS [facility]CS COUNT Reporting Lab: [facility] [place] [facility] [address] [facility] [address] Performing Lab: [facility] [place] [facility] [address] [facility] [address] CBC ERYTHROCYTE 5.31 4.23 - 06/08 Specimen Typ e: BLOOD [facility] S 5.66 No comment enter ed. WSTRN [#/VOLUME] Ordering Pro vider: MELANIA RAMOSCHUSE IN BLOOD BY Report Rele ased Date/Time: Feb 14, 2022 08:21 AM TS HCS AUTOMATED Reporting Lab : [facility] [place] [facility] COUNT [address] [facility] [address] Performing Lab: [facility] [place] [facility] [address] [facility] [address] CBC HEMOGLOBIN 13.9 12.8 - 17 06/08 Specimen Ty pe: BLOOD [facility] [MASS/VOLUM /2021 No comment e ntered. WSTRN E] IN BLOOD Ordering Pr ovider: MELANIA RAMOS Report Released Date/Time: Feb 14, 2022 08:21 AM TS HCS Reporting Lab: [facility] [place] [facility] [address] [facility] [address] Performing Lab: [facility] [place] [facility] [address] [facility] [address] CBC HEMATOCRIT 43.1 39.2 - 06/08 Specimen Type : BLOOD [facility] [VOLUME 50.4 /2021 No comment enter ed. WSTRN FRACTION] Ordering Prov ider: MELANIA RAMOSCHUSE OF BLOOD BY Report Rele ased Date/Time: Feb 14, 2022 08:21 AM TS HCS AUTOMATED Reporting Lab : [facility] [place] [facility] COUNT [address] [facility] [address] Performing Lab: [facility] [place] [facility] [address] [facility] [address] CBC MCV 81.2 82 - 99 06/08 L Specimen Type: B LOOD [facility] [ENTITIC /2021 No comment ente red. WSTRN VOLUME] BY Ordering Pro vider: MELANIA RAMOSCHUSE AUTOMATED Report Rele ed Date/Time: Feb 14, 2022 08:21 AM TS HCS COUNT Reporting Lab: [facility] [place] [facility] [address] [facility] [address] Performing Lab: [facility] [place] [facility] [address] [facility] [address] CBC MCHC 32.3 30.8 - 06/08 Specimen Type: B LOOD [facility] [MASS/VOLUM 35.1 No comment e ntered. WSTRN E] BY Ordering Provid er: MELANIA RAMOSCHHUMBLE AUTOMATED Report Rele ed Date/Time: Feb 14, 2022 08:21 AM TS HCS COUNT Reporting Lab: [facility] [place] [facility] [address] [facility] [address] Performing Lab: [facility] [place] [facility] [address] [facility] [address] CBC PLATELETS 280 140 - 360 06/08 Specimen Typ e: BLOOD [facility] [#/VOLUME] /2021 No comment en tered. WSTRN IN BLOOD BY Ordering Pr ovider: MELANIA RAMOSCHHUMBLE AUTOMATED Report Rele ed Date/Time: Feb 14, 2022 08:21 AM TS HCS COUNT Reporting Lab: [facility] [place] [facility] [address] [facility] [address] Performing Lab: [facility] [place] [facility] [address] [facility] [address] CBC ERYTHROCYTE 15.5 12.0 - 06/08 Specimen Typ e: BLOOD [facility] DISTRIBUTIO 16.0 No comment e ntered. WSTRN N WIDTH Ordering Provid er: MELANIA RAMOS [RATIO] BY Report Relea sed Date/Time: Feb 14, 2022 08:21 AM TS HCS AUTOMATED Reporting Lab : [facility] [place] [facility] COUNT [address] [facility] [address] Performing Lab: [facility] [place] [facility] [address] [facility] [address] CBC MCH 26.2 26.2 - 06/08 Specimen Type: B LOOD [facility] [ENTITIC 32.6 No comment ente red. WSTRN MASS] BY Ordering Provi tye: MELANIA RAMOS [place] AUTOMATED Report Releas ed Date/Time: Feb 14, 2022 08:21 AM TS HCS COUNT Reporting Lab: [facility] [place] [facility] [address] [facility] [address] Performing Lab: [facility] [place] [facility] [address] [facility] [address] BASIC UREA 24 7 - 25 06/08 Specimen Type: S EDIE [place] METABOLIC NITROGEN /2021 No comment en tered. LD PANEL [MASS/VOLUM Ordering Pr ovider: AMBIKA KNIGHT (fasting) Casa] IN SERUM Report Re leased Date/Time: Jun 06, 2022 03:16 PM OR PLASMA Reporting Lab : [facility] [place] [facility] [address] [facility] [address] Performing Lab: [facility] [place] [facility] [address] [facility] [address] BASIC GLUCOSE 230 65 - 100 06/08 H Specimen Type: SERUM [place] METABOLIC [MASS/VOLUM /2021 No comment entered. LD PANEL E] IN SERUM Ordering Pr ovider: AMBIKA KNIGHT (fasting) OR PLASMA Report Rele ased Date/Time: Jun 06, 2022 03:16 PM Reporting Lab: [facility] [place] [facility] [address] [facility] [address] Performing Lab: [facility] [place] [facility] [address] [facility] [address] BASIC SODIUM 136 135 - 145 06/08 Specimen Type: SERUM [place] METABOLIC [MOLES/VOLU /2021 No comment entered. LD PANEL ME] IN Ordering Provid er: AMBIKA KNIGHT (fasting) SERUM OR Report Relea sed Date/Time: Jun 06, 2022 03:16 PM PLASMA Reporting Lab: [facility] [place] [facility] [address] [facility] [address] Performing Lab: [facility] [address] [facility] [address] BASIC POTASSIUM 5.2 3.5 - 5.0 09/ H Specimen Typ e: SERUM [place] METABOLIC [MOLES/VOLU /2021 No comment entered. LD PANEL ME] IN Ordering Provid er: AMBIKA KNIGHT (fasting) SERUM OR Report Relea sed Date/Time: Jun 06, 2022 03:16 PM PLASMA Reporting Lab: [facility] [address] [facility] [address] Performing Lab: [facility] [address] [facility] [address] BASIC CHLORIDE 104 100 - 110 06/08 Specimen Type : SERUM [place] METABOLIC [MOLES/VOLU /2021 No comment entered. LD PANEL ME] IN Ordering Provid er: AMBIKA KNIGHT (fasting) SERUM OR Report Relea sed Date/Time: Jun 06, 2022 03:16 PM PLASMA Reporting Lab: [facility] [address] [facility] [address] Performing Lab: [facility] [address] [facility] [address] BASIC CARBON 23 20 - 30 06/08 Specimen Type: S EDIE [place] METABOLIC DIOXIDE, No comment en tered. LD PANEL TOTAL Ordering Provid er: AMBIKA KNIGHT (fasting) [MOLES/VOLU Report Re leased Date/Time: Jun 06, 2022 03:16 PM ME] IN Reporting Lab: [facility] SERUM OR [address] [facility] [address] PLASMA Performing Lab: [facility] [address] [facility] [address] BASIC CREATININE 1.66 0.50 - 09 H Specimen Type : SERUM [place] METABOLIC [MASS/VOLUM 1.40 No comment entered. LD PANEL E] IN SERUM Ordering Pr ovider: AMBIKA KNIGHT (fasting) OR PLASMA Report Rele ased Date/Time: Jun 06, 2022 03:16 PM Reporting Lab: [address] [place] [place] [address] Performing Lab: [facility] [place] [facility] [address] [facility] [address] BASIC GLOMERULAR 44 60 06/08 L Specimen Type : SERUM [place] METABOLIC FILTRATION /2021 No comment entered. LD PANEL RATE/1.73 Ordering Prov ider: AMBIKA KNIGHT (fasting) SQ Report Releas ed Date/Time: Jun 06, 2022 03:16 PM M.PREDICTED Reporting L ab: [facility] [place] [facility] [VOLUME [address] [facility] [address] RATE/AREA] Performing L ab: [facility] [place] [facility] [place], [address] [facility] [address] PLASMA OR BLOOD BY CREATININE- BASED FORMULA (CKD-EPI) PO4 PHOSPHATE 3.5 2.5 - 5.0 05/05 Specimen Typ e: SERUM [facility] [MASS/VOLUM /2021 No comment e ntered. WSTRN E] IN SERUM Ordering Pr ovider: MELANIA RAMOS [place] OR PLASMA Report Releas ed Date/Time: Nov 08, 2021 04:09 PM TS HCS Reporting Lab: [facility] [place] [facility] [address] [facility] [address] Performing Lab: [facility] [place] [facility] [address] [facility] [address] PTH PARATHYRIN. 122.6 10 - 65 05/05 H Specimen Typ e: SERUM [facility] INTACT INTACT /2021 No comment enter ed. WSTRN [MASS/VOLUM Ordering Pr ovider: MELANIA RAMOS [place] E] IN SERUM Report Rele ased Date/Time: Nov 08, 2021 04:09 PM TS HCS OR PLASMA Reporting Lab : [facility] [place] [facility] [address] [facility] [address] Performing Lab: [facility] [place] [facility] [address] [facility] [address] Vital Signs Combined list of inpatient and outpatient Vital Signs from Department of Defense and Veterans Affairs, ranging from 12 months to all on record, depending upon the facility. Vital Sign Value Date Comments Source SYSTOLIC BLOOD PRESSURE 129 07/05/2022 [facility] 13:50:15 DIASTOLIC BLOOD PRESSURE 71 07/05/2022 [facility] 13:50:15 PULSE OXIMETRY 99% 07/05/2022 [facility] 13:50:15 WEIGHT 237 07/05/2022 [facility] 13:50:15 BMI 36kg/m2 07/05/2022 [facility] 13:50:15 PULSE 70 07/05/2022 [facility] 13:50:15 RESPIRATION 0 07/05/2022 [facility] 13:50:15 SYSTOLIC BLOOD PRESSURE 120 07/04/2022 [facility] [...] [facility] 13:45:25 [place] [facility] RESPIRATION 18 06/14/2022 [facility]45:[facility] [place] [facility] SYSTOLIC BLOOD PRESSURE 135 05/14/2022 [facility] 14:25:11 DIASTOLIC BLOOD PRESSURE 78 05/14/2022 [facility] 14:25:11 PULSE OXIMETRY 97% 05/14/2022 [facility] 14:25:11 PULSE 82 05/14/2022 [facility] 14:25:11 SYSTOLIC BLOOD PRESSURE 135 04/17/2022 [facility] 15:48:33 DIASTOLIC BLOOD PRESSURE 72 04/17/2022 [facility] 15:48:33 PULSE OXIMETRY 97% 04/17/2022 [facility] 15:48:33 PULSE 74 04/17/2022 [facility] 15:48:33 Encounters Combined list of: 1) Encounters from Department of Veterans Affairs facilities going back up to the last 18 months. 2) Encounters from the Department of Defense facilities going back up to 280 months. 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
with Provide r Comment s: Ingrowi ng Nail Outpatient 69930-9.63 04/29 [facility] Encounter [id number] [facility] [place] [facility] OFFICE O/P 43400-2.63 Diagnos LEXIS KNIGHT 05/11 [place] EST MOD [id number] is: SHLOMO IELD 30-39 MIN 59 ICD-10- CM G46.4 Cerebel lar stroke syndrom e
w ith Provide r Comment s: Cerebel lar stroke syndrom e (SCT [id number] 00) IMMUNIZATI 96536-2.63 [place] KNIGHT 05/11 [facility] ON ADMIN [id number] SH[place]O [facility] [facility] Outpatient 90808-0.63 05/17 [facility] Encounter [id number] [facility] [place] [facility] [facility] Out[facility] 77962-8.63 06/24 [facility] Encounter [id number] [facility] [place] [facility] [facility] Out[facility] 67524-5.63 Diagnos RAMOS,S 06/28 [facility] Encounter [id number] is: JOSE ALBERTO CN TRL ICD-10- WSTRN CM [place] I12.9 SETS Hyperte HCS nsive chronic kidney disease w stg 1-4/uns p chr kdny
with Provide r Comment s: Hyperte nsive Chronic Kidney Disease with Stage 1 through Stage 4 Chronic Kidney Disease , or unspeci fied Chronic Kidney Disease Outpatient 99990-4.63 07/11 [facility] Encounter [id number] [facility] [place] [facility] [facility] Out[facility] 26795-5.63 07/18 [facility] Encounter [id number] /2021 [facility] [place] [facility] [facility] OFFICE O/P 03953-3.63 Diagnos LAUREN SANTORO 07/19 [place] EST LOW [id number].[id number] is: ES F IELD 20-29 MIN 64 ICD-10- CM L60.0 Ingrowi ng nail
with Provide r Comment s: Ingrowi ng Nail Outpatient 46666-2.63 07/21 [facility] Encounter [id number] [facility] [address]-1.63 Diagnos GRICEL BAILEY 07/24 [place] DIG [id number] is: ISLV J RG CBOC ASSMT&MGMT 12 ICD-10- 5-10 CM N52.8 Other male erectil e dysfunc tion
with Provide r Comment s: Other Male Erectil e Dysfunc tion OFFICE O/P 89566-0.63 Diagnos RUTHIE STALLINGS 07/24 [facility] EST MOD [id number] is: CE CNTRL 30-39 MIN ICD-10- WSTRN CM I10 [place] Essenti SETS al HCS (primar y) hyperte nsion<b r/>with Provide r Comment s: Hyperte nsion (SCT [id number] 3) Outpatient 66890-3.63 07/24 [facility] Encounter [id number] /2021 [facility] [place] [facility] [facility] Out[facility] 36290-1.63 09/05 [facility] Encounter [id number] /2021 [facility] [place] [facility] [facility] Outpatient 45357-3.63 09/12 [facility] Encounter [id number] /2021 [facility] [place] [facility] [facility] Outpatient 05429-8.63 10/23 [facility] Encounter [id number] [facility] [place] [facility] Outpatient 86776-2.63 Diagnos RUTHIE STALLINGS 10/25 [facility] Encounter [id number] is: CE CNTRL ICD-10- WSTRN CM [place] E11.8 SETS 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
with Provide r Comment s: Hyperte nsive Chronic Kidney Disease with Stage 1 through Stage 4 Chronic Kidney Disease , or unspeci fied Chronic Kidney Disease OFFICE O/P 31238-463 Diagnos LAUREN SANTORO 11/10 [place] EST LOW [id number].[id number] is: ES IELD 20-29 MIN 21 ICD-10- CM L60.0 Ingrowi ng nail
with Provide r Comment s: Ingrowi ng Nail OFFICE O/P 63 Diagnos LEXIS KNIGHT 11/13 [place] EST MOD [id number] is: SHL[place] IELD 30-39 MIN 95 ICD-10- CM I95.1 Orthost atic hypoten roro
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< br/>wit h Provide r Comment s: Type II diabete s mellitu s (SCT [id number] 6) [place] [address]-8.63 Diagnos DARVIN MATTHEW 11/24 [facility] DIG [id number] is: ABELA CNTRL ASSMT&MGMT ICD-10- WSTRN 5-10 CM [place] Z51.81 SETS Encount HCS er for therape utic drug level monitor ing<br/ >with Provide r Comment s: Therape utic Drug Level Monitor ing Outpatient 27130-7.63 12/01 [facility] Encounter [id number] /2022 [facility] [place] [facility] HC PRO 98260-9.63 Diagnos ALEC ALEJANDRE 12/01 S PRINGF PHONE CALL [id number].[id number] is: N L IELD 5-10 MIN 90 ICD-10- CM 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< br/>wit h Provide r Comment s: 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 Outpatient 14782-8.63 Diagnos RUTHIE STALLINGS 12/02 [facility] Encounter [id number] is: CNTRL ICD-10- WSTRN CM [place] E11.8 SETS 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< br/>wit h Provide r Comment s: Type II diabete s mellitu s (SCT [id number] 6) CONT GLUC 70012-5.63 Diagnos ALEC ALEJANDRE 12/21 SPR[place] MNTR PT [id number].[id number] is: N L IELD PROV EQP 91 ICD-10- CM 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< br/>wit h Provide r Comment s: 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 Outpatient 84301-4.63 01/02 [facility] Encounter [id number] [facility] [place] [facility] HC PRO 08704-2.63 Diagnos АННА ALEJANDREE 01/05 V A PHONE CALL [id number] is: N L CNTR L 11-20 MIN ICD-10- WSTRN CM [place] E11.65 SETS 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< br/>wit h Provide r Comment s: 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 Outpatient 06222-6.63 01/22 [facility] Encounter [id number] /2022 [facility] [place] [facility] [facility] Outpatient 64250-7.63 Diagnos RUTHIE STALLINGS 01/23 [facility] Encounter [id number] is: CE CNTRL ICD-10- WSTRN CM [place] E11.8 SETS 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
w ith Provide r Comment s: Type 2 Diabete s Mellitu s with Diabeti c Periphe ral Angiopa thy without Gangren e POSTOP 86025-0.63 Diagnos LAUREN SANTORO 03/09 S PRINGF FOLLOW-UP 1BY.[id number] is: IELD VISIT 38 ICD-10- CM S90.412 S Abrasio n, left great toe, sequela
wi th Provide r Comment s: Abrasio n, left Great Toe, Sequela OFFICE O/P 88378-8.63 Diagnos MAUDELAUREN 03/23 [place] EST LOW 1BY.[id number] is: IELD 20-29 MIN 79 ICD-10- CM L02.612 [place] abscess of left foot
with Provide r Comment s: [place] Abscess of left Foot POSTOP 11000-6.63 Diagnos LAUREN SANTORO 03/26 S PRINGF FOLLOW-UP [id number].[id number] is: IELD VISIT 91 ICD-10- CM L02.612 [place] abscess of left foot
with Provide r Comment s: [place] Abscess of left Foot OFFICE O/P 64339-2.63 Diagnos MAUDELAUREN 04/02 [place] EST LOW 1BY.[id number] is: IELD 20-29 MIN 59 ICD-10- CM L84 Corns and callosi ties
with Provide r Comment s: Corns and callosi ties OFFICE O/P 88449-8.63 Diagnos DOMINIQUE, 04/17 [place] EST [id number].[id number] is: RONAN IELD MINIMAL 56 ICD-10- PROB CM M79.675 Pain in left toe(s)< br/>wit h Provide r Comment s: Pain in left Toe(s) Outpatient 85139-9.63 04/17 [facility] Encounter [id number] /2022 [facility] [place] [facility] Out[place] 90491-9.63 04/17 [facility] Encounter [id number] [facility] [place] [facility] [facility] Outpatient 33337-6.63 NIKKINUNU 04/19 [facility] Encounter [id number] MARIBELL R [facility] [place] [facility] [facility] Outpatient 71916-2.63 05/14 [facility] Encounter [id number] [facility] [place] [facility] [facility] OFFICE O/P 87187-1.63 Diagnos SAUCEDO,DA 05/14 [facility] EST SF [id number].[id number] is: VID IELD 10- MIN 96 ICD-10- CM L84 Corns and callosi ties
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
with Provide r Comment s: Chronic kidney disease , stage 3a OFFICE O/P Diagnos ABIGAILSUNI ToroN 07/04 [facility] EST [id number] is: E CNTRL MINIMAL ICD-10- WSTRN PROB CM [place] E11.9 SETS Type 2 HCS diabete s mellitu 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< br/>wit h Provide r Comment s: Diabete s mellitu s (SCT [id number] 9) OFFICE O/P Diagnos LEXIS KNIGHT 07/05 SPR[place] EST MOD 1BY.[id number] is: SHLOMO IELD 30-39 MIN 83 ICD-10- CM L89.90 Pressur e ulcer of unspeci fied site, unspeci fied stage<b r/>with Provide r Comment s: Pressur e Ulcer of unspeci fied site, unspeci fied Stage IMMUNIZATI LEXIS KNIGHT 07/05 [facility] [id number] [facility] [id number] 07/13 [id number] /2022 [facility] [id number] Diagnos RUTHIE STALLINGS 07/13 [facility] Encounter [id number] is: [facility] ICD-10- [facility] CM [facility] N52.9 [facility] erectil e dysfunc tion, unspeci fied
with Provide r Comment s: Erectil e dysfunc tion (SNOMED CT [id number] 02) Outpatient [id number] 07/30 [facility] [id number] [facility] [place] [address]-4.63 Diagnos DAMARIS,CHR 08/08 [facility] [id number] is: ISTINE ER [facility] ASSMT&MGMT 75 ICD-10- CLINIC 5-10 CM (631GE) E11.9 Type 2 diabete s mellitu 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< br/>wit h Provide r Comment s: Diabete s mellitu s (SCT [id number]) [place] [address]-3.63 Diagnos TIKER 08/13 [facility] DIG [id number] is: RY [facility] ASSMT&MGMT ICD-10- [facility]N 5-10 CM [place] E11.9 SETS Type 2 HCS diabete s mellitu 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< br/>wit h Provide r Comment s: Diabete s mellitu s (SCT [id number]) Outpatient [id number] 08/16 [facility] [id number] /2022 [facility] Social History Combined list of available smoking, tobacco, and other social history from [facility]. Social History Response Date Comment Source Type Tobacco smoking VA-TOBACCO NEVER 07/05/2022 [facility] status [facility] History of VA-TOBACCO NEVER 05/11/2021 [facility] tobacco use [facility] [place] [facility] History of VA-TOBACCO NEVER 02/03/2019 [facility] tobacco use USED History of LIFETIME 01/13/2018 [facility] tobacco use NON-TOBACCO USER History of LIFETIME 01/04/2017 [facility] tobacco use NON-TOBACCO USER History of LIFETIME 12/23/2015 [facility] tobacco use NON-TOBACCO USER History of LIFETIME 11/27/2005 patient reportssmoking [place] tobacco use NON-TOBACCO USER only crack coccaine History of LIFETIME 01/22/2003 [facility] tobacco use NON-SMOKER History of LIFETIME 08/18/2001 pt states he has never [place] tobacco use NON-TOBACCO USER smoked History of LIFETIME 05/14/2001 [facility] tobacco use NON-SMOKER Plan of Care List of future care activities from [facility] facilities. Additional future care activities may be listed in the Assessment and Plan section. Date/Time Care Activity Care Activity Detail Facility 09/05/2022 AMBULATORY - MEDICINE AMBULATORY - MEDICINE [facility]
--- OUTSIDE RECORDS SUMMARY | 2022-08-25 08:28 | XMS_ITS | Encounter Summary ---
:1950 Author Organization Department of [facility] rs Address [address] [place] [address] Support Name Relationship Address Phone THANIA BERGER Rosmery Unavailable [address] [place] [address] [place] [address] AMELIA BERGER Unavailable [address] [place] [address] Insurance Providers: All historical and current Section [...] AARP INS PRESCRIPT MEDIC Sep 16, PDPIND [id number] [phone] YESSI BERGERZhane PATIENT ION ARE D 2017 251 [id number] IS MEDICAID MEDICAID [facility] Jul 17, MEDICAI [id number] [id number] DAYAMI BERGER PATIENT EALTH 2014 D [id number] IS STAND CHRISTOPHER MEDICARE MEDICARE PART Sep 16, PART A [id number] [phone] Rosmery BERGER PATIENT (WNR) (M) A 2010A 00 IS MEDICARE MEDICARE PART Sep 16, PART B [id number] [phone] Rosmery BERGER PATIENT (WNR) (M) B 2010A 00 IS MEDICARE MEDICARE PART Sep 16, PART A [id number] Rosmery BERGER PATIENT (WNR) (M) A 2010 XH29 2 IS MEDICARE MEDICARE PART Sep 16, PART B [id number] Rosmery BERGER PATIENT (WNR) (M) B 2010 XH29 2 IS Selected Encounter This section includes the information on record at NH for the Encounter. Date/Time Encounter Type Encounter Reason Provider Source Description Oct 26, 2021 DIABETIC CUSTOM PODIATRY ICD-10-CM E11.9 AMI SHIN 10:00 AM MOLDED SHOE Type 2 diabetes mellitus without complications with Provider Comments: Type 2 Diabetes Mellitus without Complications [facility] Encounter Template Text not used by NH Assessments - Encounter Diagnoses This section includes the primary and secondary diagnoses documented for the Encounter. Date/Time Primary/Secondary Diagnosis Name Provider Source Diagnosis Oct 26, 2021 PRIMARY Type 2 diabetes AMI SHIN [place] 02:22 PM mellitus without complications Plan of Treatment: Future Appointments (+ 6 months) and Future Tests (+/- 45 days) The Plan of Treatment section includes future care activities for the patient [facility]. This section includes future appointments and future orders which are active, pending orscheduled.Future Appointments This section includes appointments that were scheduled to occur 6 months from the date of the Encounter, up to a maximum of 20 appointments. The data comes from all NH treatment facilities. Appointment Date/Time Appointment Type Appointment Facili ty Name Nov 01, 2021 03:00 PM [facility] Nov 10, 2021 10:00 AM [facility] Nov 13, 2021 09:00 AM [facility] Nov 16, 2021 02:30 PM [facility] Nov 16, 2021 03:00 PM [facility] Dec 21, 2021 03:30 PM [facility] Jan 05, 2022 03:30 PM [facility] January 23, 2022 03:00 PM [facility] Feb 14, 2022 08:00 AM [facility] Mar 06, 2022 03:00 PM [facility] Mar 09, 2022 12:00 PM [facility] Mar 23, 2022 01:30 PM [facility] Mar 26, 2022 04:00 PM [facility] Apr 02, 2022 04:00 PM [facility] Apr 17, 2022 03:15 PM [facility] Lab Results: +/- 30 days of the encounter This section includes the Chemistry and Hematology Lab Results on record with NH for the patient. Radiology Reports and Pathology Reports are provided separately, in subsequent sections.Lab Results This section contains the Chemistry/Hematology Results that were resulted 30 days before or 30 daysafter the date of the Encounter. Date/Time Source Result Type Result - Unit Interpretation Reference Range Comment Nov 16, 2021 [facility] BASIC METABOLIC PANEL Specimen Type: SERUM 02:27 PM [place] [facility] (non-fasting) No comment enter ed. Ordering Provid er: DELMER STALLINGS Report Released Date/Time: Oct 25, 2021 12:46 PM Reporting Lab: [facility] [place] [facility] [address] [facility] [address] Performing Lab: [facility] [place] [facility] [address] [facility] [address] UREA NITROGEN 27 H 7-25 GLUCOSE 349 H 65-100 SODIUM 135 135-145 POTASSIUM 4.4 3.5-5.0 CHLORIDE 100 100-110 CO2 26 20-30 CREATININE, Serum 1.89 H 0.50-1.40 eGFR (IDMS) 36 L >60 Oct 18, 2021 10:04 AM [place] PSA Specimen Type: SERUM Comment: *BASIC METABOLIC PANEL (fasting) Not Performed: Oct 18, 2021@10:05 b *ADVENTURE EDUCATION TEACHER Reason: DUP ORDER Ordering Provid er: AMBIKA KNIGHT Report Released Date/Time: May 11, 2021 01:37 PM Reporting Lab: [facility] [place] [facility] [address] [facility] [address] Performing Lab: [facility] [place] [facility] [address] [facility] [address] PSA 1.68 0.00-4.00 Oct 18, 2021 10:04 AM [place] TSH Specimen Type: SERUM Comment: *BASIC METABOLIC PANEL (fasting) Not Performed: Oct 18, 2021@10:05 b *ADVENTURE EDUCATION TEACHER Reason: DUP ORDER Ordering Provid er: AMBIKA KNIGHT Report Released Date/Time: May 11, 2021 01:37 PM Reporting Lab: [facility] [place] [facility] [address] [facility] [address] Performing Lab: [facility] [place] [facility] [address] [facility] [address] TSH 2.37 0.35-5.00 Oct 18, 2021 [facility] PANEL Specimen T ype: BLOOD 10:04 AM [facility] Comment: Testin g performed by NGSP [...] Jul 24, 2021 04:34 PM Reporting Lab[facility] [address] [facility] [address] Performing Lab: [facility] [address] [facility] [address] HEMOGLOBIN A1C 9.7 H 4.0-5.6 Oct 18, 2021 10:04 [facility] LIPID PANEL FASTING Specimen Type: SERUM AM [facility] No comment enter ed. Ordering Provid er: DELMER STALLINGS Report Released Date/Time: Jul 24, 2021 04:34 PM Reporting [facility]: [facility] [address] [facility] [address] Performing Lab: [facility] [address] [facility] [address] CHOLESTEROL 176 <7-199 TRIGLYCERIDE 179 H 0-150 LDL calculated 108 0-129 CHOL/HDL 5.5 HDL CHOLESTEROL 32 L 40-60 Oct 18, 2021 10:04 [facility] pecimen Type: SERUM AM [facility] No comment enter ed. Ordering Provid er: MELANIA RAMOS Report Released Date/Time: Jun 28, 2021 09:09 AM Reporting Lab: [facility] [address] [facility] [address] Performing Lab: [facility] [address] [facility] [address] ALBUMIN 4.0 3.5-5.0 Oct 18, 2021 [facility] VITAMIN D (25-[place]) Specimen Type : SERUM 10:04 AM [place] [facility] No comment enter ed. Ordering Provid er: MELANIA RAMOS Report Released Date/Time: Jun 28, 2021 09:09 AM Reporting Lab: [facility] [place] [facility] [address] [facility] [address] Performing Lab: [facility] [place] [facility] [address] [facility] [address] VITAMIN D (25-OH) 37 20-50 Oct 18, 2021 [facility] BASIC METABOLIC PANEL Specimen Type: SERUM 10:04 AM [place] [facility] (non-fasting) No comment enter ed. Ordering Provid er: MELANIA RAMOS Report Released Date/Time: Jun 28, 2021 09:09 AM Reporting Lab: [facility] [place] [facility] [address] [facility] [address] Performing Lab: [facility] [place] [facility] [address] [facility] [address] UREA NITROGEN 21 7-25 GLUCOSE 302 H 65-100 SODIUM 136 135-145 POTASSIUM 4.7 3.5-5.0 CHLORIDE 103 100-110 CO2 24 20-30 CREATININE, Serum 1.74 H 0.50-1.40 eGFR (IDMS) 39 L >60 Oct 18, 2021 10:04 AM [facility] [place] CBC Specimen Type: BLOOD HCS No comment enter ed. Ordering Provid er: MELANIA RAMOS Report Released Date/Time: Jun 28, 2021 09:09 AM Reporting Lab: [facility] [place] [facility] [address] [facility] [address] Performing Lab: [facility] [place] [facility] [address] [facility] [address] WBC 7.69 4.50-11.00 RBC 5.16 4.23-5.66 HGB 12.9 12.8-17 HCT 40.7 39.2-50.4 MCV 78.9 L 82-99 MCHC 31.7 30.8-35.1 PLT 320 140-360 RDW-CV 17.8 H 12.0-16.0 MCH 25.0 L 26.2-32.6 Social History: Smoking Status (Most current) and Tobacco Use (All prior to encounter date) This section includes the most current, and the historical, smoking and tobacco-related health factors from the NH facility where the Encounter took place.Current Smoking Status This section includes the most current smoking, or tobacco-related health factor, from the NH facility where the Encounter took place. Date/Time Current Smoking Status Comment Facility February 03, 2019 10:28 AM VA-TOBACCO NEVER USED [facility] Tobacco Use History This section includes a history of the smoking, or tobacco- related health factors, that were collected on or before the date of the Encounter. The data comes from the [place] facility where the Encounter took place. Date/Time Smoking Status/Tobacco Use Comment [facility] Jan 13, 2018 09:49 AM LIFETIME NON-TOBACCO USER [place] Jan 04, 2017 10:17 AM LIFETIME NON-TOBACCO USER [place] Dec 23, 2015 08:49 AM LIFETIME NON-TOBACCO USER [place] Nov 27, 2005 02:55 PM LIFETIME NON-TOBACCO USER [place] patient reportssmoking only crac zaira pickett January 22, 2003 10:42 AM LIFETIME NON-SMOKER [facility] Aug 18, 2001 01:54 PM LIFETIME NON-TOBACCO USER [place] pt states he has never smoked May 14, 2001 02:23 PM LIFETIME NON-SMOKER [facility] Encounter Notes: All associated encounter notes This section contains the clinical notes associated to the Encounter. Date/Time Encounter Note(s) Provider Source Oct 26, 2021 02:21 PM PODIATRY NOTE: AMI SHIN [facility] TITLE: PODIATRY NOTE STANDARD TITLE: PODIATRY NOTE DATE OF NOTE: OCT 26, 2021@14:21 ENTRY DATE: OCT 26, 2021@14:21:13 AUTHOR: AMI SHIN EXP COSIGNER: URGENCY: STATUS: COMPLETED S: Pt presents for pickup of new therapeutic shanda es. O: No new foot health issues at this time. A:Type 2 Diabetes Mellitus without Complications P: Dispensed r Comfort [place] Plus 7210 size 9.5 Wide. They were checked for fit by palpating the lengt h, width and height in the toebox area. They were very comfortable and he wore them from the clinic. Pt was Instructed to make a follow up appt. in t he event the shoes do not fit properly-and to bring shoes to that visit. /jamal/ AMI SHIN [employer] Signed: 10/26/2021 14:22
--- OUTSIDE RECORDS SUMMARY | 2022-08-25 08:28 | XMS_ITS | Encounter Summary ---
:1950 Author Organization Department of [facility] rs Address [address] [place] [address] Support Name Relationship Address Phone THANIA BERGER Rosmery Unavailable [address] [place] [address] AMELIA BERGER Unavailable [address] [place] [address] Insurance Providers: All historical and current Section [...] AARP INS PRESCRIPT MEDIC Sep 16, PDPIND [id number] [phone] YESSI BERGERZhane PATIENT ION ARE D 2017 251 9 IS MEDICAID MEDICAID [facility] Jul 17, MEDICAI [id number] [phone] DAYAMI BERGER PATIENT EALTH 2014 D [id number] 900 IS STAND [place]RISTOPHER MEDICARE MEDICARE PART Sep 16, PART A [id number] [phone] Rosmery BERGER PATIENT (WNR) (M) A 2010 00 IS MEDICARE MEDICARE PART Sep 16, PART B [id number] [phone] Rosmery BEGRER PATIENT (WNR) (M) B 2010A 00 IS MEDICARE MEDICARE PART Sep 16, PART A [id number] Rosmery BERGER PATIENT (WNR) (M) A 2010 [id number] 2 IS MEDICARE MEDICARE PART Sep 16, PART B [id number] Rosmery BERGER PATIENT (WNR) (M) B 2010 [...] activities for the patient from all [place] [facility]. This section includes future appointments and future orders which are active, pending orscheduled.Future Appointments This section includes appointments that were scheduled to occur 6 months from the date of the Encounter, up to a maximum of 20 appointments. The data comes from all [place] treatment facilities. Appointment Date/Time Appointment Type Appointment Facili ty Name Oct 18, 2021 10:15 AM [facility] Oct 25, 2021 12:00 PM [facility]IC[facility] [place] [facility] [place] [facility] Oct 26, 2021 10:00 AM [facility] [place] [facility] Nov 01, 2021 03:00 PM [facility] [place] [facility] Nov 10, 2021 10:00 AM [facility] Nov 13, 2021 09:00 AM [facility] Nov 16, 2021 02:30 PM [facility] Nov 16, 2021 03:00 PM [facility] Dec 21, 2021 03:30 PM [facility] Jan 05, 2022 03:30 PM [facility] [place] [facility] January 23, 2022 03:00 PM [facility]ATORY MEDICINE [place] [facility] [place] [facility] Feb 14, 2022 08:00 AM [facility]UL[facility]ORY MEDICINE [place] [facility] [place] [facility] Mar 06, 2022 03:00 PM [facility] Mar 09, 2022 12:00 PM [facility] Social History: Smoking Status (Most current) [...] 11, 2021 01:18 PM VA-TOBACCO NEVER USED [facility] [place] [facility] Encounter Notes: All associated encounter notes This section contains the clinical notes associated to the Encounter. Date/Time Encounter Note(s) Provider Source Sep 12, 2021 08:15 AM TELEPHONE ENCOUNTER NOTE: ALYSSA DHILLON [facility] LOCAL TITLE: VISN 1 CCC ACTION REQUIRED [facility] STANDARD TITLE: TELEPHONE ENCOUNTER NOTE DATE OF NOTE: SEP 12, 2021@08:15 ENTRY DATE: SEP 12, 2021@08:16:34 AUTHOR: ALYSSA DHILLON EXP COSIGNER: URGENCY: STATUS: COMPLETED VISN 1 CCC ACTION REQUIRED Has ADDENDA The patient, JESSICA BERGER ([id number]) Phone: called the call center. The following identifiers were used to verify th is patient: DOB. WILKERSON. Contact Type of call: PHARMACY. Caller Response: ADM CALL RESOLVED Caller Area: [facility] Provider Info: [facility] ([id number]) PACT: SO PACT 4 (Focus: Primary Care Only) Primary Care Provider: Ambika Orozco PHONE:[phone] Marine Electronics Technician: Dorcas Fox Clinical Associate: Joey Mcgrath PHON [phone] Bilingual Trainer: Dorcas Rosales PHONE:[phone] PACT Clinical Pharmacist: Briana Downey Clinical POC: Marine Electronics Technician Lisa Fox Administrative POC: Bilingual Trainer Dorcas Rosales PHONE:[phone] Author: ALYSSA DHILLON Comments: Hollis called to request a new Glucose meter be cause he has lost his. Kindly mail upon approval. Evaluation/Management Code: HC PRO PHONE CALL 5- 10 MIN ([id number]). Starting at: 09/12/2021 @ 8:15:00 AM Ending at: 09/12/2021 @ 8:15:54 AM Length: 0 minutes. Chief Complaint: Not applicable to call. Class Code: Other specified counseling. Patient's Email Address: /keshawn DHILLON Advanced Recycling Operator Signed: 09/12/2021 08:16 Receipt Acknowledged By: * AWAITING SIGNATURE * DORCAS FOX 09/12/2021 08:30 /jamal/ JOEY MCGRATH LPN LICENSED PRACTICAL NURSE 09/12/2021 ADDENDUM STATUS: COMPLETED Will include PCP for order. /jamal/ JOEY MCGRATH LPN LICENSED PRACTICAL NURSE Signed: 09/12/2021 08:30 Receipt Acknowledged By: * AWAITING SIGNATURE * AMBIKA OROZCO
--- OUTSIDE RECORDS SUMMARY | 2022-08-25 08:28 | XMS_ITS | Encounter Summary ---
:1950 Author Organization Department of [facility] rs Address [address] [place] [address] Support Name Relationship Address Phone THANIA BERGER [place] [address] CELINEAMELIA Unavailable [address] [place] [address] Insurance Providers: All historical and current Section [...] AARP INS PRESCRIPT MEDIC Sep 16, PDPIND [id number] [phone] CELINE DAAYMI PATIENT ION ARE D 2017 251 9 IS MEDICAID MEDICAID [facility] Jul 17, MEDICAI [id number] [phone] YESSI BERGERZhane PATIENT EALTH 2014 D [id number] 900 IS STAND CHRISTOPHER MEDICARE MEDICARE PART Sep 16, PART A [id number] [phone] Rosmery BERGER PATIENT (WNR) (M) A 2010 00 IS MEDICARE MEDICARE PART Sep 16, PART B [id number] [phone] Rosmery BERGER PATIENT (WNR) (M) B 2010 00 IS MEDICARE MEDICARE PART Sep 16, PART B [id number] Rosmery BERGER PATIENT (WNR) (M) B 2010 XH29 2 IS MEDICARE MEDICARE PART Sep 16, PART A [id number] Rosmery BERGER PATIENT (WNR) (M) A 2010 XH29 2 IS Selected Encounter This section includes the information on record at [place] for the Encounter. Date/Time Encounter Type Encounter Reason Provider Source Description Oct 25, 2021 Outpatient TELEPHONE/MEDICI ICD-10-CM E11.8 DELMER STALLINGS 12:00 PM Encounter NE Type 2 diabetes mellitus with unspecified complications with Provider Comments: Type II diabetes mellitus ([facility] [id number]) IHE Encounter Template Text not used by [place] Assessments - Encounter Diagnoses This section includes the primary and secondary diagnoses documented for the Encounter. Date/Time Primary/Secondary Diagnosis Name Provider Source Diagnosis Oct 25, 2021 PRIMARY Type 2 diabetes [place] [facility] RN 12:00 PM mellitus with [facility] [facility] unspecified complications Oct 25, 2021 SECONDARY Essential [place] [facility] 12:00 PM (primary) [facility] hypertension Oct 25, 2021 SECONDARY Hyperlipidemia, [facility] WST RN 12:00 PM unspecified [facility] Plan of Treatment: Future Appointments (+ 6 months) and Future Tests (+/- 45 days) The Plan of Treatment section includes future care activities for the patient from all [place] treatmentfacilities. This section includes future appointments and future orders which are active, pending orscheduled.Future Appointments This section includes appointments that were scheduled to occur 6 months from the date of the Encounter, up to a maximum of 20 appointments. The data comes from all [place] treatment facilities. Appointment Date/Time Appointment Type Appointment Facili ty Name Oct 26, 2021 10:00 AM [facility] [place] [facility] [facility] Nov 01, 2021 03:00 PM [facility] [place] [facility] Nov 10, 2021 10:00 AM [facility] Nov 13, 2021 09:00 AM AM[facility]ULATORY [facility] Nov 16, 2021 02:30 PM [facility] Nov 16, 2021 03:00 PM [facility] Dec 21, 2021 03:30 PM [facility] Jan 05, 2022 03:30 PM AMBULATORY [facility] [place] [place] [facility] January 23, 2022 03:00 PM AMBULATORY [facility] [place] [place] [facility] Feb 14, 2022 08:00 AM [facility] [place] [facility] Mar 06, 2022 03:00 PM AMBULATORY - MEDICINE [facility] Mar 09, 2022 12:00 PM [facility] Mar 23, 2022 01:30 PM [facility] Mar 26, 2022 04:00 PM [facility] Apr 02, 2022 04:00 PM [facility] Apr 17, 2022 03:15 PM [facility] Lab Results: +/- 30 days of the encounter This section includes the Chemistry and Hematology Lab Results on record with [place] for the patient. Radiology Reports and Pathology Reports are provided separately, in subsequent sections.Lab Results This section contains the Chemistry/Hematology Results that were resulted 30 days before or 30 daysafter the date of the Encounter. Date/Time Source Result Type Result - Unit Interpretation Reference Range Comment Nov 16, 2021 [place] [facility] [facility] BASIC METABOLIC PANEL Specimen Type: SERUM 02:27 PM [facility] (non-fasting) No comment enter ed. Ordering Provid er: DELMER STALLINGS Report Released Date/Time: Oct 25, 2021 12:46 PM Reporting [facility] [place] [facility] [address] [facility] [address] Performing Lab: [facility] [place] [facility] [address] [facility] [address] UREA NITROGEN 27 H 7-25 GLUCOSE 349 H 65-100 SODIUM 135 135-145 POTASSIUM 4.4 3.5-5.0 CHLORIDE 100 100-110 CO2 26 20-30 CREATININE, Serum 1.89 H 0.50-1.40 eGFR (IDMS) 36 L >60 Oct 18, 2021 10:04 AM [facility] PSA Specimen Type: SERUM Comment: *BASIC METABOLIC PANEL (fasting) Not Performed: Oct 18, 2021@10:05 b *STREET LIGHT SERVICER Reason: DUP ORDER Ordering Provid er: AMBIKA KNIGHT Report Released Date/Time: May 11, 2021 01:37 PM Reporting Lab: [place] [facility] [place] [facility] [address] [facility] [address] Performing Lab: [facility]N [place] [facility] [address] [facility] [address] PSA 1.68 0.00-4.00 Oct 18, 2021 10:04 AM [facility] TSH Specimen Type: SERUM Comment: *BASIC METABOLIC PANEL (fasting) Not Performed: Oct 18, 2021@10:05 b *STREET LIGHT SERVICER Reason: DUP ORDER Ordering Provid er: AMBIKA KNIGHT Report Released Date/Time: May 11, 2021 01:37 PM Reporting Lab: [facility] [place] [facility] [address] [facility] [address] [facility] [place] [facility] [address] [facility] [address] TSH 2.37 0.35-5.00 Oct 18, 2021 [facility] HEMOGLOBIN A1C PANEL Specimen T ype: BLOOD 10:04 AM [place] [facility] Comment: Testin g performed by [...] Jul 24, 2021 04:34 PM Reporting Lab: [facility] [place] [facility] [address] [facility] [address] Per[facility]: [facility] [place] [facility] [address] [facility] [address] HEMOGLOBIN A1C 9.7 H 4.0-5.6 Oct 18, 2021 10:04 [facility] LIPID [facility]EL FASTING Specimen Type: SERUM AM [facility] No comment enter ed. Ordering Provid er: DELMER STALLINGS Report Released Date/Time: Jul 24, 2021 04:34 PM Reporting Lab: [facility] [place] [facility] [address] [facility] [address] Performing Lab: [facility] [place] [facility] [address] [facility] [address] CHOLESTEROL 176 <7-199 TRIGLYCERIDE 179 H 0-150 LDL calculated 108 0-129 CHOL/HDL 5.5 HDL CHOLESTEROL 32 L 40-60 Oct 18, 2021 10:04 [facility] [place] ALBUMIN S pecimen Type: SERUM AM HCS No comment enter ed. Ordering Provid er: MELANIA VINCENT Report Released Date/Time: Jun 28, 2021 09:09 AM Reporting Lab: [facility] [place] [facility] [address] [facility] [address] Performing Lab: [facility] [place] [facility] [address] [facility] [address] ALBUMIN 4.0 3.5-5.0 Oct 18, 2021 [facility] VITAMIN D (25-[place]) Specimen Type : SERUM 10:04 AM [place] [facility] No comment enter ed. Ordering Provid er: MELANIA VINCENT Report Released Date/Time: Jun 28, 2021 09:09 AM Reporting Lab: [facility] [place] [facility] [address] [facility] [address] Performing Lab: [place] [facility] [place] [facility] [address] [facility] [address] VITAMIN D (25-[place]) 37 20-50 Oct 18, 2021 [facility] BASIC METABOLIC PANEL Specimen Type: SERUM 10:04 AM [place] [facility] (non-fasting) No comment enter ed. Ordering Provid er: MELANIA VINCENT Report Released Date/Time: Jun 28, 2021 09:09 AM Reporting Lab: [facility] [place] [facility] [address] [facility] [address] Performing Lab: [place] [facility] [place] [facility] [address] [facility] [address] UREA NITROGEN 21 7-25 GLUCOSE 302 H [...] W[facility]N [place] [facility] [address] [facility] [address] Performing Lab: [place] [facility] [place] [facility] [address] [place] [address] WBC 7.69 4.50-11.00 RBC 5.16 4.23-5.66 HGB 12.9 12.8-17 HCT 40.7 39.2-50.4 MCV 78.9 L 82-99 MCHC 31.7 30.8-35.1 PLT 320 140-360 RDW-CV 17.8 H 12.0-16.0 MCH 25.0 L 26.2-32.6 Social History: Smoking Status (Most current) and Tobacco Use (All prior to encounter date) This section includes the most current, and the historical, smoking and tobacco-related health factors from the [place] facility where the Encounter took place.Current Smoking Status This section includes the most current smoking, or tobacco-related health factor, from the [place] facility where the Encounter took place. Date/Time Current Smoking Status Comment Facility May 11, 2021 01:18 PM [facility]CO [facility] Encounter Notes: All associated encounter notes This section contains the clinical notes associated to the Encounter. Date/Time Encounter Note(s) Provider Source Oct 25, 2021 12:15 PM PHYSICIAN NOTE: DELMER STALLINGS [facility] W STRN LOCAL TITLE: MD [facility] STANDARD TITLE: PHYSICIAN NOTE DATE OF [...] peanuts 10. UTI 11. Claudication (SNOMED CT 248633802) 12. Elevated Prostate Specific antigen [psa] 13. Overweight (SNOMED CT 991564207) 14. Low Back Pain * 15. 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 Impotence of organic origin 17. Colorectal Cancer Screening Results Document ed and Reviewed (PV) 18. Simple upper Gastrointestinal Endoscopy 19. Postsurgical Percutaneous Transluminal Coron chet Angioplasty Status 20. Postsurgical Status of Cataract Extraction 21. Diabetes mellitus (SNOMED CT 08067824) 22. MRSA SKIN INFECTION 23. Cocaine abuse, continuous use 24. GERD * 25. Corneal Abrasion 26. Hypertension (SNOMED CT 09528129) 27. Diabetic Neuropathies 28. Onychomycosis * 29. Cataract, PSC/Post Subcapsular 30. Cataract, Cortical (Senile) 31. Background diabetic retinopathy 32. Cyst, ganglion 33. Cervical Radiculopathy 34. Shoulder Pain 35. Hyperlipidemia (SNOMED CT 59017668) 36. Old Myocardial Infarction 37. Depressive Disorder [...]
--- OUTSIDE RECORDS SUMMARY | 2022-08-25 08:28 | XMS_ITS ---
:1950 Author Organization Department of [facility] rs Address [address] [place] [address] Support Name Relationship Address Phone THANIA BERGER Rosmery Unavailable [address] [place] [address] CELINEAMELIA Unavailable [address] [place] [address] Insurance Providers: All historical and current Section [...] AARP INS PRESCRIPT MEDIC Sep 16, PDPIND [id number] [phone] YESSI BERGERZhane PATIENT ION ARE D 2017 251 [id number] IS MEDICAID MEDICAID [facility] Jul 17, MEDICAI [id number] YESSI BERGERZhane PATIENT EALTH 2014 D [id number] 900 IS STAND [place]RISTOPHER MEDICARE MEDICARE PART Sep 16, PART A [id number] [phone] Rosmery BERGER PATIENT (WNR) (M) A 2010 00 IS MEDICARE MEDICARE PART Sep 16, PART B [id number] [phone] Rosmery BERGER PATIENT (WNR) (M) B 2010 00 IS MEDICARE MEDICARE PART Sep 16, PART A [id number] Rosmery BERGER PATIENT (WNR) (M) A 2010 [id number] 2 IS MEDICARE MEDICARE PART Sep 16, PART B [id number] Rosmery BERGER PATIENT (WNR) (M) B 2010 [...] activities for the patient from all [place] [facility]. This section includes future appointments and future orders which are active, pending orscheduled.Future Appointments This section includes appointments that were scheduled to occur 6 months from the date of the Encounter, up to a maximum of 20 appointments. The data comes from all [place] treatment facilities. Appointment Date/Time Appointment Type Appointment Facili ty Name Oct 18, 2021 10:15 AM [facility] Oct 25, 2021 12:00 PM [facility] [place] [facility] Oct 26, 2021 10:00 AM [facility] [place] [place] [facility] Nov 01, 2021 03:00 PM [facility] [place] [facility] Nov 10, 2021 10:00 AM [facility] Nov 13, 2021 09:00 AM [facility] Nov 16, 2021 02:30 PM [facility] Nov 16, 2021 03:00 PM [facility] Dec 21, 2021 03:30 PM [facility] Jan 05, 2022 03:30 PM [facility] [place] [facility] January 23, 2022 03:00 PM [facility] [place] [facility] Feb 14, 2022 08:00 AM AM[place]UL[place] [facility] [facility] Mar 06, 2022 03:00 PM [facility] Social History: Smoking Status (Most current) and [...] 11, 2021 01:18 PM [facility]-TOBACCO NEVER US[facility] Encounter Notes: All associated encounter notes This section contains the clinical notes associated to the Encounter. Date/Time Encounter Note(s) Provider Source Sep 05, 2021 12:39 PM TELEPHONE ENCOUNTER NOTE: VEL SINGH [facility] TITLE: TELEPHONE NOTE/SPECIALTY CLINIC STANDARD TITLE: TELEPHONE ENCOUNTER NOTE DATE OF NOTE: SEP 05, 2021@12:39 ENTRY DATE: SEP 05, 2021@12:39:22 AUTHOR: VEL SINGH EXP COSIGNER: URGENCY: STATUS: COMPLETED TELEPHONE NOTE/SPECIALTY CLINIC Has ADDENDA patient call reporting not receiving his shoe th at was order for him on 07/19/2021. kindly assist. 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 /jamal/ [facility]M LABORATORY TECHNICIAN Signed: 09/06/2021 08:14
--- NOTE | 2022-08-25 08:29 | ED.EYEPROB ---
HPI - Eye Problem General Chief complaint: Eye Problems Stated complaint: l eye floaters Time Seen by Provider: 08/25/22 08:25 Source: patient Mode of arrival: ambulatory History of Present Illness HPI Narrative: 71-year-old male with a past medical history of BPH, CVA with residual right-sided deficits, DVT, osteomyelitis, on Eliquis, presenting to the ED complaining of left eye floaters and blurry vision since 21:00 last night. Admits to recent eye procedure 3 months ago, has follow-up on Saturday, with history of eye hemorrhage. States symptoms began suddenly while watching a band. Denies associated symptoms including pain, headache, nausea/vomiting, vision loss, head injury/trauma. Admits to taking his Eliquis today chief complaint: vision change Onset (ago): day(s) Related Data Home Medications Medication Instructions Recorded Confirmed apixaban 5 mg tablet 5 mg PO BID 08/05/20 08/05/20 ketorolac 0.5 % eye drops drp ophthalmic (eye) 08/05/20 08/05/20 lisinopril 2.5 mg tablet 2.5 mg PO DAILY 08/05/20 08/05/20 metoprolol tartrate 25 mg tablet 25 mg PO BID 08/05/20 08/05/20 pantoprazole 40 mg tablet,delayed 40 mg PO DAILY 08/05/20 08/05/20 release atorvastatin 40 mg tablet 40 mg PO DAILY 10/06/20 metformin 1,000 mg tablet 1,000 mg PO BID 10/06/20 insulin glargine 100 unit/mL (3 30 unit subcut BEDTIME 11/03/20 mL) subcutaneous pen empagliflozin 25 mg tablet 25 mg PO DAILY 05/05/21 (Jardiance) fludrocortisone 0.1 mg tablet mg PO 05/05/21 gabapentin 100 mg capsule mg PO TID PRN 05/05/21 midodrine 5 mg tablet mg PO 05/05/21 magnesium oxide 400 mg (241.3 mg 400 mg PO BID 07/11/21 magnesium) tablet empagliflozin 25 mg tablet 25 mg PO DAILY 01/16/22 (Jardiance) potassium chloride 10 mEq 10 meq PO DAILY 01/16/22 tablet,extended release Previous Rx's Medication Instructions Recorded tadalafil 20 mg tablet 10 mg PO .PRN sexual activity 90 07/11/21 days #12 tabs cefuroxime axetil 250 mg tablet 250 mg PO BID 10 days #20 tabs 07/08/22 sulfamethoxazole 800 1 tab PO Q12H 10 days #20 tabs 07/12/22 mg-trimethoprim 160 mg tablet (Bactrim DS) finasteride 5 mg tablet 5 mg PO DAILY 90 days #90 tabs 07/24/22 tadalafil 5 mg tablet 5 mg PO DAILY sexual activity 90 07/24/22 days #90 tabs Allergies Allergy/AdvReac Type Severity Reaction Status Date / Time almond [ALMONDS] Allergy Severe THROAT Verified 07/24/22 15:45 CLOSES pecan nut [PECAN] Allergy Severe THROAT Verified 07/24/22 15:45 CLOSES almonds/ pecans Allergy Unknown Unknown Uncoded 07/23/22 10:58 Review of Systems Review of Systems: Constitutional: No Fever, No Chills, No Night Sweats, No Fatigue, No Malaise ENT/Mouth: No Ear Pain, No Nasal Congestion, No Sinus Pain, No Hoarseness, No sore throat, No Rhinorrhea, No Swallowing Difficulty Eyes: No Eye Pain, No Swelling, No Redness, No Foreign Body, No Discharge, + Vision Changes, +floaters Cardiovascular: No Chest Pain, No SOB, No Edema, No Palpitations Respiratory: No Cough, No Sputum, No Dyspnea Gastrointestinal: No Nausea, No Vomiting, No Abdominal pain Genitourinary: No Dysuria, No Urinary Frequency, No Hematuria, No Flank Pain Musculoskeletal: No joint pain, No Myalgias, No Joint Swelling Skin: No Skin Lesions, No rash Neuro: No Weakness, No Dizziness, No Headache Yes all other systems are reviewed and are negative Constitutional: Constitutional: Reports as per [facility] Past Medical History Attestation statement: The following information was validated with the patient. Medical History BPH (benign prostatic hyperplasia) CVA (cerebral vascular accident) DVT (deep venous thrombosis) Enlarged prostate without lower urinary tract symptoms (luts) Erectile dysfunction Frequency-urgency syndrome History of elevated PSA Subacute osteomyelitis of right foot Surgical History History of surgery Social History Social History Patient Tobacco Use Status: Tobacco use Unknown Advance Directives: No Advance Directives Information Provided: Yes Physical Exam Vital Signs: Vital Signs: Last Vital Signs Temp 97.8 F 08/25/22 08:17 Pulse 72 08/25/22 08:17 Resp 18 08/25/22 08:17 BP 169/89 H 08/25/22 08:17 Pulse Ox 98 08/25/22 08:17 O2 Del Method 08/25/22 08:17 BMI result Body Mass Index 34.9 Const: General: cooperative and no acute distress Orientation/consciousness: patient oriented x3 Limitations: no limitations HEENT: Head: Yes normal to inspection and Yes atraumatic Ears: hearing grossly normal bilaterally General nose exam: Normal external nose present Face and sinus: Yes normal facial exam Eyes: Other: +L eye blurry vision, can make out colors/silhouette's General: appearance normal, both eyes and all related structures Periorbital: periorbital findings normal Eyelids: Yes eyelids normal Corneas: corneas normal Pupils: Equal, round and reactive pupils present EOM: EOMs intact bilaterally and no movement deficit Direct Ophthalmoscopy: normal light reflex Neck: Neck: Yes normal visual inspection and Yes no meningeal signs Resp: Effort & Inspection: normal respiratory effort and no respiratory distress Auscultation: clear to auscultation bilaterally Cardio: Rate: regular rate Heart sounds: S1 normal heart sound present and S2 normal heart sound present Skin: Rashes: no rashes Wounds: no wounds Neuro: Other: Baseline right-sided residual deficits and slurred speech. Baseline ambulates with walker General: patient oriented x3, tone normal, moves all extremities, no meningeal signs, no focal motor deficits and CN's II-XI intact bilaterally Cranial nerves: Yes Equal, round and reactive pupils present Extrem: General: Yes normal to inspection Course Course Course Narrative: -09--spoke with Dr. Birmingham, patient's retinal specialist reported patient has peripheral diabetic retinopathy with hemorrhage, instructed me to have patient call the office on Saturday to schedule follow-up appointment next week. Patient already has appointment on Saturday--CT head/brain wo IV con IMPRESSION: Bilateral cerebellar infarcts, left greater than right and left occipital infarct. Findings could be better evaluated with MRI if clinically indicated. >> clarified with radiologist Dr. Jb cerebellar infarcts appear old, occipital infarct does not appear acute either, however ? Subacute on chronic, no available priors to compare. Patient admits his most recent stroke was in December, seen at [facility], will request records. Has had 4 prior CVAs in the past -received records from [facility] neuro tele health visit, noted old cerebellar infarcts, no documentation of occipital infarct. Still suspect subacute, case discussed with Dr. Baig will obtain brain MRI for further evaluation MR head/brain wo con IMPRESSION: 1.? No acute intracranial abnormality. ? 2.? Chronic infarcts involving the left occipital lobe and left greater than right cerebellar hemispheres ? >> results discussed with patient. Stressed importance of close follow-up with Ophthalmology on Saturday as scheduled Medical Decision Making Medical Decision Making MDM Narrative: 71-year-old male with a past medical history of BPH, CVA with residual right-sided deficits, DVT, osteomyelitis, on Eliquis, presenting to the ED complaining of left eye floaters and blurry vision since 21:00 last night. On exam vital signs stable, in the ED, left eye a with notable blurry vision. No other focal deficits. Concern for posterior eye hemorrhage vs retinal detachment vs uveitis Plan: Labs, head CT, consult Dr. Birmingham Differential Diagnoses: Differential diagnosis Lab Attestation: I reviewed the patient's lab results. Discharge Plan Discharge Clinical Impression: Floaters, Blurred vision Patient Disposition: Home, Self-Care Instructions: Blurred Vision (ED), Visual Floaters (ED) Additional Instructions: Your blood work is reassuring. Your MRI shows old infarcts, nothing new. We spoke with your clinical associate, you need to follow-up on Saturday for very close follow-up If symptoms persist or worsen, you have persistent or worsening vision changes, headache, weakness please return to the emergency department Prescriptions: No Action cefuroxime axetil 250 mg tablet 250 mg PO BID 10 Days Qty: 20 0RF sulfamethoxazole-trimethoprim [Bactrim DS] 800-160 mg tablet 1 tab PO Q12H 10 Days Qty: 20 0RF Eliquis 5 mg tablet 5 mg PO BID metoprolol tartrate 25 mg tablet 25 mg PO BID lisinopril 2.5 mg tablet 2.5 mg PO DAILY pantoprazole 40 mg tablet,delayed release (DR/EC) 40 mg PO DAILY ketorolac 0.5 % drops ophthalmic (eye) Lantus Solostar U-100 Insulin 100 unit/mL (3 mL) insulin pen 30 unit subcut BEDTIME Jardiance 25 mg tablet 25 mg PO DAILY fludrocortisone 0.1 mg tablet PO gabapentin 100 mg capsule PO TID PRN midodrine 5 mg tablet PO finasteride 5 mg tablet 5 mg PO DAILY 90 Days Qty: 90 1RF magnesium oxide 400 mg (241.3 mg magnesium) tablet 400 mg PO BID tadalafil 20 mg tablet 10 mg PO .PRN 90 Days Qty: 12 0RF metformin 1,000 mg tablet 1,000 mg PO BID atorvastatin 40 mg tablet 40 mg PO DAILY tadalafil 5 mg tablet 5 mg PO DAILY 90 Days Qty: 90 1RF potassium chloride 10 mEq tablet extended release 10 meq PO DAILY Jardiance 25 mg tablet 25 mg PO DAILY Referrals: Manan Reinoso MD [Primary Care Provider] - Interventions: ED Discharge Assessment Last Done: 08/25/22 13:50 Discharge Date/Time: 08/25/22 13:51
--- OUTSIDE RECORDS SUMMARY | 2022-08-25 08:29 | XMS_ITS | Encounter Summary ---
:1950 Author Organization Department of [facility] rs Address [address] [place] [address] Support Name Relationship Address Phone CELINEGONZÁLEZTHANIA Rosmery Unavailable [address] [place] [address] [place] [address] CELINEAMELIA Unavailable [address] [place] [address] Insurance Providers: All historical and current Section [...] AARP INS PRESCRIPT MEDIC Sep 16, PDPIND [id number] [phone] YESSI BERGERZhane PATIENT ION ARE D 2017 251 9 IS MEDICAID MEDICAID [facility] Jul 17, MEDICAI [id number] DAYAMI BERGER PATIENT EALTH 2014 D [id number] 900 IS STAND [place]RISTOPHER MEDICARE MEDICARE PART Sep 16, PART A [id number] [phone] Rosmery BERGER PATIENT (WNR) (M) A 2010 00 IS MEDICARE MEDICARE PART Sep 16, PART B [id number] [phone] Rosmery BERGER PATIENT (WNR) (M) B 2010 00 IS MEDICARE MEDICARE PART Sep 16, PART A [id number] Rosmery BERGER PATIENT (WNR) (M) A 2010 XH29 2 IS MEDICARE MEDICARE PART Sep 16, PART B [id number] Rosmery BERGER PATIENT (WNR) (M) B 2010 XH29 2 IS Selected Encounter This section includes the information on record [place] for the Encounter. Date/Time Encounter Type Encounter Description Reason Provider Source Nov 13, 2021 09:21 Outpatient Encounter PRIMARY CARE/MEDICINE AM IHE Encounter Template Text not used by [place] Plan of Treatment: Future Appointments (+ 6 months) and Future Tests (+/- 45 days) The Plan of Treatment section includes future care activities for the patient from [facility] [place] [facility] This section includes future appointments and future orders which are active, pending orscheduled.Future Appointments This section includes appointments that were scheduled to occur 6 months from the date of the Encounter, up to a maximum of 20 appointments. The data comes from all [place] treatment facilities. Appointment Date/Time Appointment Type Appointment Facili ty Name Nov 16, 2021 02:30 PM [facility] Nov 16, 2021 03:00 PM [facility] Dec 21, 2021 03:30 PM [facility] Jan 05, 2022 03:30 PM [facility] January 23, 2022 03:00 PM [facility] Feb 14, 2022 08:[address] [facility] Mar 06, 2022 03:00 PM [facility] Mar 09, 2022 12:00 PM [facility] Mar 23, 2022 01:30 PM [facility] Mar 26, 2022 04:00 PM [facility] Apr 02, 2022 04:00 PM [facility] Apr 17, 2022 03:15 PM [facility] Lab Results: +/- 30 days of the encounter This section includes the Chemistry and Hematology Lab Results on record with [place] for the patient. Radiology Reports and Pathology Reports are provided separately, in subsequent sections.Lab Results This section contains the Chemistry/Hematology Results that were resulted 30 days before or 30 daysafter the date of the Encounter. Date/Time Source Result Type Result - Unit Interpretation Reference Range Comment Nov 16, 2021 [facility] BASIC METABOLIC PANEL Specimen Type: SERUM 02:27 PM [facility] (non-fasting) No comment enter ed. Ordering Provid er: DELMER STALLINGS Report Released Date/Time: Oct 25, 2021 12:46 PM Reporting Lab: [address] [address] Performing Lab: [facility] [address] [facility] [address] UREA NITROGEN 27 H 7-25 GLUCOSE 349 H 65-100 SODIUM 135 135-145 POTASSIUM 4.4 3.5-5.0 CHLORIDE 100 100-110 CO2 26 20-30 CREATININE, Serum 1.89 H 0.50-1.40 eGFR (IDMS) 36 L >60 Oct 18, 2021 10:04 AM [place] PSA Specimen Type: SERUM Comment: *BASIC METABOLIC PANEL (fasting) Not Performed: Oct 18, 2021@10:05 b *DIRECTOR OF COMPLIANCE Reason: DUP ORDER Ordering Provid er: AMBIKA KNIGHT Report Released Date/Time: May 11, 2021 01:37 PM Reporting Lab: [facility] [address] [facility] [address] Performing Lab: [facility] [address] [facility] [address] PSA 1.68 0.00-4.00 Oct 18, 2021 10:04 AM [place] TSH Specimen Type: SERUM Comment: *BASIC METABOLIC PANEL (fasting) Not Performed: Oct 18, 2021@10:05 b *DIRECTOR OF COMPLIANCE Reason: DUP ORDER Ordering Provid er: AMBIKA KNIGHT Report Released Date/Time: May 11, 2021 01:37 PM Reporting Lab: [facility] [address] [facility] [address] Performing Lab: [facility] [address] [facility] [address] TSH 2.37 0.35-5.00 Oct 18, 2021 [facility] HEMOGLOBIN A1C PANEL Specimen T ype: BLOOD 10:04 AM [facility] Comment: Testin g performed by NGSP [...] [facility] [place] [facility] [address] [facility] [address] Performing Lab: [facility] [place] [facility] [address] [facility] [address] HEMOGLOBIN A1C 9.7 H 4.0-5.6 Oct 18, 2021 10:04 [facility] LIPID PANEL FASTING Specimen Type: SERUM AM [place] [facility] No comment enter ed. Ordering Provid er: DELMER STALLINGS Report Released Date/Time: Jul 24, 2021 04:34 PM Reporting Lab: [facility] [place] [facility] [address] [facility] [address] Performing Lab: [facility] [place] [facility] [address] [facility] [address] CHOLESTEROL 176 <7-199 TRIGLYCERIDE 179 H 0-150 LDL calculated 108 0-129 CHOL/HDL 5.5 HDL CHOLESTEROL 32 L 40-60 Oct 18, 2021 10:04 [facility] [place] ALBUMIN S pecimen Type: SERUM AM HCS No comment enter ed. Ordering Provid er: MELANIA RAMOS Report Released Date/Time: Jun 28, 2021 09:09 AM Reporting Lab: [facility] [place] [facility] [address] [facility] [address] Performing Lab: [facility] [place] [facility] [address] [facility] [address] ALBUMIN 4.0 3.5-5.0 Oct 18, 2021 [facility] VITAMIN D (25-[place]) Specimen Type : SERUM 10:04 AM [place] [facility] No comment enter ed. Ordering Provid er: MELANIA RAMOS Report Released Date/Time: Jun 28, 2021 09:09 AM Reporting Lab: [facility] [place] [facility] [address] [facility] [address] Performing Lab: [facility] [place] [facility] [address] [facility] [address] VITAMIN D (25-[place]) 37 20-50 Oct 18, 2021 10:04 AM [facility] [place] CBC Specimen Type: BLOOD HCS No comment enter ed. Ordering Provid er: MELANIA RAMOS Report Released Date/Time: Jun 28, 2021 09:09 AM Reporting Lab: [place] [facility] [place] [facility] [address] [facility] [address] Performing Lab: [place] [facility] [place] [facility] [address] [facility] [address] WBC 7.69 4.50-11.00 RBC 5.16 4.23-5.66 HGB 12.9 12.8-17 HCT 40.7 39.2-50.4 MCV 78.9 L 82-99 MCHC 31.7 30.8-35.1 PLT 320 140-360 RDW-CV 17.8 H 12.0-16.0 MCH 25.0 L 26.2-32.6 Oct 18, 2021 [place] [facility] BASIC METABOLIC PANEL Specimen Type: SERUM 10:04 AM [place] [facility] (non-fasting) No comment enter ed. Ordering Provid er: MELANIA RAMOS Report Released Date/Time: Jun 28, 2021 09:09 AM Reporting Lab: [place] [facility] [place] [facility] [address] [facility] [address] Performing Lab: [place] [facility] [place] [facility] [address] [facility] [address] UREA NITROGEN 21 7-25 GLUCOSE 302 H 65-100 SODIUM 136 135-145 POTASSIUM 4.7 3.5-5.0 CHLORIDE 103 100-110 CO2 24 20-30 CREATININE, Serum 1.74 H 0.50-1.40 eGFR (IDMS) 39 L >60 Social History: Smoking Status (Most current) and Tobacco Use (All prior to encounter date) This section includes the most current, and the historical, smoking and tobacco-related health factors from the [place] facility where the Encounter took place.Current Smoking Status This section includes the most current smoking, or tobacco-related health factor, from the [place] facility where the Encounter took place. Date/Time Current Smoking Status Comment Facility May 11, 2021 01:18 PM VA-TOBACCO NEVER USED [facility] NTRL [facility] [place] [facility] Encounter Notes: All associated encounter notes This section contains the clinical notes associated to the Encounter. Date/Time Encounter Note(s) Provider Source Nov 13, 2021 09:21 AM PREVENT[facility] MEDICINE NURSING NOTE: JOEY RODRIGUEZ [facility] TITLE: CLINICAL REMINDERS/NURSING STANDARD TITLE: PREVENTIVE MEDICINE [...] Not worried about housing near future [facility] [place] reports the following: Within the past 12 [...] need for receiving Tdap immunization either at [place] or outside facility. Comment: Discussed need to update. Discussed av ailable here at [place]. COVID-19 Immunization: Moderna COVID-19 Vaccine given previously Patient received a prior dose of the Moderna [place] VID-19 Vaccine. Date: July 11, 2021 Series: Series 3 Location: [facility] #50 /es/ JOEY RODRIGUEZ LPN LICENSED PRACTICAL NURSE Signed: 11/13/2021 09:24
--- OUTSIDE RECORDS SUMMARY | 2022-08-25 08:29 | XMS_ITS | Encounter Summary ---
:1950 Author Organization Department of [facility] rs Address [address] [place] [address] Support Name Relationship Address Phone CELINE THANIA Rosmery Unavailable [address] [place] [address] AMELIA BERGER Unavailable [address] [place] [address] Insurance Providers: All historical and current Section [...] AARP INS PRESCRIPT MEDIC Sep 16, PDPIND [id number] [phone] YESSI BERGERZhane PATIENT ION ARE D 2017 [id number] IS MEDICAID MEDICAID [facility] Jul 17, MEDICAI [id number] [phone] DAYAMI BERGER PATIENT EALTH 2014 D [id number] IS [place] MEDICARE MEDICARE PART Sep 16, PART A [id number] [phone] Rosmery BERGER PATIENT (WNR) (M) A 2010A 00 IS MEDICARE MEDICARE PART Sep 16, PART B [id number] [phone] Rosmery BERGER PATIENT (WNR) (M) B 2010 00 IS MEDICARE MEDICARE PART Sep 16, PART A [id number] Rosmery BERGER PATIENT (WNR) (M) A 2010 XH29 2 IS MEDICARE MEDICARE PART Sep 16, PART B [id number] Rosmery BERGER PATIENT (WNR) (M) B 2010 [id number] 2 IS Selected Encounter This section includes the information on record at OR for the Encounter. Date/Time Encounter Type Encounter Description Reason Provider Source IHE Encounter Template Text not used by [place]
--- OUTSIDE RECORDS SUMMARY | 2022-08-25 08:29 | XMS_ITS | Encounter Summary ---
:1950 Author Organization Department of [facility] rs Address [address] [place] [address] Support Name Relationship Address Phone THANIA BERGER Rosmery Unavailable [address] [place] [address] [place] [address] AMELIA BERGER Unavailable [address] [place] [address] Insurance Providers: All historical and current Section Date Range: From patient's date of to the date document was created.This section includes the names of all active insurance providers for the patient. Insurance Type of Plan Start of End of Group Member Insurance Policy P atient's Provider Coverage Name Policy Policy Number ID Provider's Strickalnd's Relationship Coverage Coverage Telephone Name to Policy Number Strickland AARP INS PRESCRIPT MEDIC Sep 16, PDPIND [id number] [phone] YESSI BERGERZhane PATIENT ION ARE D 2017 [id number] IS MEDICAID MEDICAID [facility] Jul 17, MEDICAI [id number] [phone] DAYAMI BERGER PATIENT EALTH 2014 D [id number] IS [place] MEDICARE MEDICARE PART Sep 16, PART A [id number] [phone] Rosmery BERGER PATIENT (WNR) (M) A 2010 00 IS MEDICARE MEDICARE PART Sep 16, PART B [id number] [phone] Rosmery BERGER PATIENT (WNR) (M) B 2010A 00 IS MEDICARE MEDICARE PART Sep 16, PART A [id number] Rosmery BERGER PATIENT (WNR) (M) A 2010 [id number] 2 IS MEDICARE MEDICARE PART Sep 16, PART B [id number] Rosmery BERGER PATIENT (WNR) (M) B 2010 [id number] 2 IS Selected Encounter This section includes the information on record at [place] for the Encounter. Date/Time Encounter Type Encounter Reason Provider Source Description Nov 10, 2021 OFFICE O/P EST PODIATRY ICD-10-CM L60.0 GOMEZ SANTORO 10:00 AM LOW 20-29 MIN Ingrowing nail with Provider Comments: Ingrowing Nail IHE Encounter Template Text not used by [place] Assessments - Encounter Diagnoses This section includes the primary and secondary diagnoses documented for the Encounter. Date/Time Primary/Secondary Diagnosis Name Provider Source Diagnosis Nov 10, 2021 PRIMARY Ingrowing nail GOMEZ SANTORO [facility] 11:00 AM Nov 10, 2021 SECONDARY Type 2 [facility] diabetic peripheral angiopath w/o gangrene Plan of Treatment: Future Appointments (+ 6 months) and Future Tests (+/- 45 days) The Plan of Treatment section includes future care activities for the patient from all [place] treatmentfacilities. This section includes future appointments and future orders which are active, pending orscheduled.Future Appointments This section includes appointments that were scheduled to occur 6 months from the date of the Encounter, up to a maximum of 20 appointments. The data comes from all [place] treatment facilities. Appointment Date/Time Appointment Type Appointment Facili ty Name Nov 13, 2021 09:00 AM [facility] Nov 16, 2021 02:30 PM [facility] Nov 16, 2021 03:00 PM [facility] Dec 21, 2021 03:30 PM [facility] Jan 05, 2022 03:30 PM [facility] January 23, 2022 03:00 PM [facility] Feb 14, 2022 08:00 AM [facility] Mar 06, 2022 03:00 PM [facility] Mar 09, 2022 12:00 PM [facility] Mar 23, 2022 01:30 PM [facility] Mar 26, 2022 04:00 PM [facility] Apr 02, 2022 04:00 PM [facility] Apr 17, 2022 03:15 PM [facility] Lab Results: +/- 30 days of the encounter This section includes the Chemistry and Hematology Lab Results on record with [place] for the patient. Radiology Reports and Pathology Reports are provided separately, in subsequent sections.Lab Results This section contains the Chemistry/Hematology Results that were resulted 30 days before or 30 daysafter the date of the Encounter. Date/Time Source Result Type Result - Unit Interpretation Reference Range Comment Nov 16, 2021 [place] [facility] BASIC METABOLIC PANEL Specimen Type: SERUM 02:27 PM [place] [facility] (non-fasting) No comment enter ed. Ordering Provid er: DELMER STALLINGS Report Released Date/Time: Oct 25, 2021 12:46 PM Reporting [facility] [place] [facility] [address] [address] Performing Lab: [facility] [place] [facility] [address] [address] UREA NITROGEN 27 H 7-25 GLUCOSE 349 H 65-100 SODIUM 135 135-145 POTASSIUM 4.4 3.5-5.0 CHLORIDE 100 100-110 CO2 26 20-30 CREATININE, Serum 1.89 H 0.50-1.40 eGFR (IDMS) 36 L >60 Oct 18, 2021 10:04 AM [facility] PSA Specimen Type: SERUM Comment: *BASIC METABOLIC PANEL (fasting) Not Performed: Oct 18, 2021@10:05 b *TENANT COORDINATOR Reason: DUP ORDER Ordering Provid er: AMBIKA KNIGHT Report Released Date/Time: May 11, 2021 01:37 PM Reporting Lab: [facility] [place] [facility] [address] [address] Performing Lab: [facility] [place] [facility] [address] [address] PSA 1.68 0.00-4.00 Oct 18, 2021 10:04 AM [facility] TSH Specimen Type: SERUM Comment: *BASIC METABOLIC PANEL (fasting) Not Performed: Oct 18, 2021@10:05 b *TENANT COORDINATOR Reason: DUP ORDER Ordering Provid er: AMBIKA KNIGHT Report Released Date/Time: May 11, 2021 01:37 PM Reporting Lab: [facility] [place] [facility] [address] [address] Performing Lab: [facility] [place] [facility] [address] [address] TSH 2.37 0.35-5.00 Oct 18, 2021 10:04 [place] [facility] LIPID PANEL FASTING Specimen Type: SERUM AM [place] [facility] No comment enter ed. Ordering Provid er: DELMER STALLINGS Report Released Date/Time: Jul 24, 2021 04:34 PM Reporting Lab: [facility] [place] [facility] [address] [address] Performing Lab: [facility] [address] [address] CHOLESTEROL 176 <7-199 TRIGLYCERIDE 179 H 0-150 LDL calculated 108 0-129 CHOL/HDL 5.5 HDL CHOLESTEROL 32 L 40-60 Oct 18, 2021 [place] [facility] HEMOGLOBIN A1C PANEL Specimen T ype: BLOOD 10:04 AM [facility] Comment: Testin g performed by NGSP [...] Jul 24, 2021 04:34 PM Reporting Lab: [facility] [address] [address] Performing Lab: [facility] [address] [address] HEMOGLOBIN A1C 9.7 H 4.0-5.6 Oct 18, 2021 10:04 [facility] ALBUMIN S pecimen Type: SERUM AM [facility] No comment enter ed. Ordering Provid er: MELANIA RAMOS Report Released Date/Time: Jun 28, 2021 09:09 AM Reporting Lab: [facility] [place] [facility] [address] [address] Performing Lab: [facility] [address] [address] ALBUMIN 4.0 3.5-5.0 Oct 18, 2021 [place] [facility] VITAMIN D (25-[place]) Specimen Type : SERUM 10:04 AM [place] [facility] No comment enter ed. Ordering Provid er: MELANIA RAMOS Report Released Date/Time: Jun 28, 2021 09:09 AM Reporting Lab: [facility] [place] [facility] [address] [address] Performing Lab: [facility] [place] [facility] [address] [address] VITAMIN D (25-[place]) 37 20-50 Oct 18, 2021 [place] [facility] BASIC METABOLIC PANEL Specimen Type: SERUM 10:04 AM [place] [facility] (non-fasting) No comment enter ed. Ordering Provid er: MELANIA RAMOS Report Released Date/Time: Jun 28, 2021 09:09 AM Reporting Lab: [facility] [place] [facility] [address] [address] Performing Lab: [facility] [place] [facility] [address] [address] UREA NITROGEN 21 7-25 GLUCOSE 302 H 65-100 SODIUM 136 135-145 POTASSIUM 4.7 3.5-5.0 CHLORIDE 103 100-110 CO2 24 20-30 CREATININE, Serum 1.74 H 0.50-1.40 eGFR (IDMS) 39 L >60 Oct 18, 2021 10:04 AM [place] [facility] CBC Specimen Type: BLOOD [facility] No comment enter ed. Ordering Provid er: MELANIA RAMOS Report Released Date/Time: Jun 28, 2021 09:09 AM Reporting Lab: [facility] [place] [facility] [address] [address] Performing Lab: [place] [facility] [place] [facility] [address] [address] WBC 7.69 4.50-11.00 RBC 5.16 4.23-5.66 HGB 12.9 12.8-17 HCT 40.7 39.2-50.4 MCV 78.9 L 82-99 MCHC 31.7 30.8-35.1 PLT 320 140-360 RDW-CV 17.8 H 12.0-16.0 MCH 25.0 L 26.2-32.6 Social History: Smoking Status (Most current) and Tobacco Use (All prior to encounter date) This section includes the most current, and the historical, smoking and tobacco-related health factors from the [facility] where the Encounter took place.Current Smoking Status This section includes the most current smoking, or tobacco-related health factor, from the [place] facility where the Encounter took place. Date/Time Current Smoking Status Comment Facility February 03, 2019 10:28 AM [place]-TOBACCO NEVER USED [facility] Tobacco Use History This section includes a history of the smoking, or tobacco- related health factors, that were collected on or before the date of the Encounter. The data comes from the [facility] where the Encounter took place. Date/Time Smoking Status/Tobacco Use Comment [facility] Jan 13, 2018 09:49 AM LIFETIME NON-TOBACCO USER [facility] Jan 04, 2017 10:17 AM LIFETIME NON-TOBACCO USER [facility] Dec 23, 2015 08:49 AM LIFETIME NON-TOBACCO USER [facility] Nov 27, 2005 02:55 PM LIFETIME NON-TOBACCO USER [facility] patient reportssmoking only crac k coccaine January 22, 2003 10:42 AM LIFETIME NON-SMOKER [facility] Aug 18, 2001 01:54 PM LIFETIME NON-TOBACCO USER [facility] pt states he has never smoked May [...] HAS RECEIVED BOTH COVID VACCINE DOSES AT [facility] *PERFORMED AT CHECK-IN AND REVIEWED BY DR. SANTORO PRIOR TO TREATMENT* LAST SEEN: 07/19/2021 S: Pt. is a 71 yo alert WDWN [facility] MALE who is se en for [...] peanuts 10. UTI 11. Claudication (SNOMED CT 546781166) 12. Elevated Prostate Specific antigen [psa] 13. [...] Cataract Extraction 21. Diabetes mellitus (SNOMED CT 42335869) 22. MRSA SKIN INFECTION 23. Cocaine abuse, continuous use 24. GERD * 25. Corneal Abrasion 26. Hypertension (SNOMED CT 29299419) 27. Diabetic Neuropathies 28. Onychomycosis * 29. Cataract, PSC/Post Subcapsular 30. Cataract, Cortical (Senile) 31. Background diabetic retinopathy 32. Cyst, ganglion 33. Cervical Radiculopathy 34. Shoulder Pain 35. Hyperlipidemia (SNOMED CT 12295351) 36. Old Myocardial Infarction 37. Depressive Disorder [...] [facility] (local) an d dispensed from another [place] or [facility] facility (remote) as well as inpatien t [...] page and ... /es/ GOMEZ SANTORO DPM HOSPICE OFFICE COORDINATOR Signed: 11/10/2021 11:01
--- OUTSIDE RECORDS SUMMARY | 2022-08-25 08:29 | XMS_ITS | Encounter Summary ---
:1950 Author Organization Department of [facility] rs Address [address] [place] [address] Support Name Relationship Address Phone THANIA BERGER Rosmery Unavailable [address] [place] [address] [place] [address] AMELIA BERGER Unavailable [address] [place] [address] Insurance Providers: All historical and current Section [...] AARP INS PRESCRIPT MEDIC Sep 16, PDPIND [id number] [phone] YESSI BERGERZhane PATIENT ION ARE D 2017 [id number] IS MEDICAID MEDICAID [facility] Jul 17, MEDICAI [id number] [phone] DAYAMI BERGER PATIENT EALTH 2014 D [id number] 900 IS [place] MEDICARE MEDICARE PART Sep 16, PART A [id number] [id number] Rosmery BERGER PATIENT (WNR) (M) A 2010 00 IS MEDICARE MEDICARE PART Sep 16, PART B [id number] [phone] Rosmery BERGER PATIENT (WNR) (M) B 2010 00 IS MEDICARE MEDICARE PART Sep 16, PART A [id number] Rosmery BERGER PATIENT (WNR) (M) A 2010 [id number] 2 IS MEDICARE MEDICARE PART Sep 16, PART B [id number] Rosmery BERGER PATIENT (WNR) (M) B 2010 [...] Nov 14, 2021 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:59 AM hypotension Nov 14, 2021 SECONDARY Type 2 diabetes AMBIKA KNIGHT [place] 07:59 AM mellitus with unspecified complications Plan [...] ty Name Nov 16, 2021 02:30 PM [facility] Nov 16, 2021 03:00 PM [facility] Dec 21, 2021 03:30 PM [facility] Jan 05, 2022 03:30 PM [facility] January 23, 2022 03:00 PM [facility] Feb 14, 2022 08:00 AM [facility] Mar 06, 2022 03:00 PM [facility] Mar 09, 2022 12:00 PM [facility] Mar 23, 2022 01:30 PM [facility] Mar 26, 2022 04:00 PM [facility] Apr 02, 2022 04:00 PM [facility] Apr 17, 2022 03:15 PM [facility] Lab Results: +/- 30 [...] [place] [facility] [place] [facility] [address] [facility] [address] Performing Lab: [facility] [place] [facility] [address] [facility] [address] UREA NITROGEN 27 H 7-25 GLUCOSE 349 H 65-100 SODIUM 135 135-145 POTASSIUM 4.4 3.5-5.0 CHLORIDE 100 100-110 CO2 26 20-30 CREATININE, Serum 1.89 H 0.50-1.40 eGFR (IDMS) 36 L >60 Oct 18, 2021 10:04 AM [place] PSA Specimen Type: SERUM Comment: *BASIC METABOLIC PANEL (fasting) Not Performed: Oct 18, 2021@10:05 b *CITY DRIVER Reason: DUP ORDER Ordering Provid er: AMBIKA KNIGHT Report Released Date/Time: May 11, 2021 01:37 PM Reporting Lab: [facility] [place] [facility] [address] [facility] [address] Performing Lab: [facility] [place] [facility] [address] [facility] [address] PSA 1.68 0.00-4.00 Oct 18, 2021 10:04 AM [place] TSH Specimen Type: SERUM Comment: *BASIC METABOLIC PANEL (fasting) Not Performed: Oct 18, 2021@10:05 b *CITY DRIVER Reason: DUP ORDER Ordering Provid er: AMBIKA KNIGHT Report Released Date/Time: May 11, 2021 01:37 PM Reporting Lab: [facility] [place] [facility] [address] [facility] [address] Performing Lab: [facility] [place] [facility] [address] [facility] [address] TSH 2.37 0.35-5.00 Oct 18, 2021 10:04 [place] [facility] LIPID PANEL FASTING Specimen Type: SERUM AM [place] [facility] No comment enter ed. Ordering Provid er: DELMER STALLINGS Report Released Date/Time: Jul 24, 2021 04:34 PM Reporting Lab[facility] [place] [facility] [address] [facility] [address] Performing Lab: [facility] [place] [facility] [address] [facility] [address] CHOLESTEROL 176 <7-199 TRIGLYCERIDE 179 H 0-150 LDL calculated 108 0-129 CHOL/HDL 5.5 HDL CHOLESTEROL 32 L 40-60 Oct 18, 2021 [facility] HEMOGLOBIN A1C PANEL Specimen T ype: BLOOD 10:04 AM [facility] Comment: Testin g performed by [...] Jul 24, 2021 04:34 PM Reporting Lab: [facility] [place] [facility] [address] [facility] [address] Performing Lab: [facility] [place] [facility] [address] [facility] [address] HEMOGLOBIN A1C 9.7 H 4.0-5.6 Oct 18, 2021 10:04 [facility] ALBUMIN S pecimen Type: SERUM AM [facility] No comment enter ed. Ordering Provid er: MELANIA RAMOS Report Released Date/Time: Jun 28, 2021 09:09 AM Reporting Lab: [facility] [place] [facility] [address] [facility] [address] Performing Lab: [facility] [place] [facility] [address] [facility] [address] ALBUMIN 4.0 3.5-5.0 Oct 18, 2021 [facility] VITAMIN D (25-[place]) Specimen Type : SERUM 10:04 AM [place] [facility] No comment enter ed. Ordering Provid er: MELANIA RAMOS Report Released Date/Time: Jun 28, 2021 09:09 AM Reporting Lab: [facility] [place] [facility] [address] [facility] [address] Performing Lab: [facility] [place] [facility] [address] [facility] [address] VITAMIN D (25-[place]) 37 20-50 Oct 18, 2021 [facility] BASIC METABOLIC PANEL Specimen Type: SERUM 10:04 AM [place] [facility] (non-fasting) No comment enter ed. Ordering Provid er: MELANIA RAMOS Report Released Date/Time: Jun 28, 2021 09:09 AM Reporting Lab: [facility] [place] [facility] [address] [facility] [address] Performing Lab: [facility] [place] [facility] [address] [facility] [address] UREA NITROGEN 21 7-25 GLUCOSE 302 H [...] [facility] [place] [facility] [address] [facility] [address] Performing Lab: [facility] [place] [facility] [address] [facility] [address] WBC 7.69 4.50-11.00 RBC 5.16 4.23-5.66 HGB [...] Comment Facility February 03, 2019 10:28 AM [place]-TOBACCO NEVER USED [facility] Tobacco Use History This section includes a history of the smoking, or tobacco- related health factors, that were collected on or before the date of the Encounter. The data comes from the [place] facility where the Encounter took place. Date/Time Smoking Status/Tobacco Use Comment [facility] Jan 13, 2018 09:49 AM LIFETIME NON-TOBACCO USER [place] Jan 04, 2017 10:17 AM LIFETIME NON-TOBACCO USER [place] Dec 23, 2015 08:49 AM LIFETIME NON-TOBACCO USER [place] Nov 27, 2005 02:55 PM LIFETIME NON-TOBACCO USER [place] patient reportssmoking only azucenaabimael zaira pickett January 22, 2003 10:42 AM LIFETIME NON-SMOKER [facility] Aug 18, 2001 01:54 PM LIFETIME NON-TOBACCO USER [place] pt states he has never smoked May [...] due to responses to other questions. 4. Wayan numb or detached from people, activitie s, or your surroundings? Response not required due to responses to other questions. 5. Wayan guilty or unable to stop blaming yourse [...]
--- OUTSIDE RECORDS SUMMARY | 2022-08-25 08:30 | XMS_ITS | Encounter Summary ---
:1950 Author Organization Department of [facility] rs Address [address] [place] [id number] Support Name Relationship Address Phone THANIA BERGER Rosmery [place] [address] AMELIA BERGER Unavailable [address] [place] [address] Insurance Providers: All historical and current Section [...] AARP INS PRESCRIPT MEDIC Sep 16, PDPIND [id number] [phone] YESSI BERGERZhane PATIENT ION ARE D 2017 [id number] IS MEDICAID MEDICAID [id number] Jul 17, MEDICAI [id number] [phone] YESSI BERGERZhane PATIENT EALTH 2014 D [id number] IS STAND CHRISTOPHER MEDICARE MEDICARE PART Sep 16, PART A [id number] [phone] Rosmery BERGER PATIENT (WNR) (M) A 2010 00 IS MEDICARE MEDICARE PART Sep 16, PART B [id number] [phone] Rosmery BERGER PATIENT (WNR) (M) B 2010 00 IS MEDICARE MEDICARE PART Sep 16, PART A [id number] Rosmery BERGER PATIENT (WNR) (M) A 2010 [id number] 2 IS MEDICARE MEDICARE PART Sep 16, PART B [id number] Rosmery BERGER PATIENT (WNR) (M) B 2010 [id number] 2 IS Selected Encounter This section includes the information on record at [place] for the Encounter. Date/Time Encounter Type Encounter Reason Provider Source Description Nov 19, 2021 Outpatient TELEPHONE/MEDICI ICD-10-CM E11.8 DELMER STALLINGS 02:15 PM Encounter NE Type 2 diabetes mellitus with unspecified complications with Provider Comments: Type II diabetes mellitus ([facility] [id number]) IHE Encounter Template Text not used by [place] Assessments - Encounter Diagnoses This section includes the primary and secondary diagnoses documented for the Encounter. Date/Time Primary/Secondary Diagnosis Name Provider Source Diagnosis Nov 19, 2021 PRIMARY Type 2 diabetes [facility]ALL[facility]LM[facility] RN 02:15 PM mellitus with [facility] unspecified complications Nov 19, 2021 SECONDARY Chronic kidney [facility]LMER [facility] N 02:15 PM disease, [facility] unspecified Nov 19, 2021 SECONDARY Hyperlipidemia, [facility]LMER [facility] RN 02:15 PM unspecified [facility] Plan of Treatment: Future Appointments (+ 6 months) and Future Tests (+/- 45 days) The Plan of Treatment section includes future care activities for the patient from all [place] treatmentfacilities. This section includes future appointments and future orders which are active, pending orscheduled.Future Appointments This section includes appointments that were scheduled to occur 6 months from the date of the Encounter, up to a maximum of 20 appointments. The data comes from all [place] treatment facilities. Appointment Date/Time Appointment Type Appointment Facili ty Name Dec 21, 2021 03:30 PM [facility] Jan 05[facility] 2022 03[facility] January 23, 2022 03:00 [facility] Feb 14, 2022 08:00 [facility] Mar 06, 2022 03:00 PM [facility] Mar 09, 2022 12:00 PM [facility] Mar 23, 2022 01:30 PM [facility] Mar 26, 2022 04:00 PM [facility] Apr 02, 2022 04:00 PM [facility] Apr 17, 2022 03:15 PM [facility] May 14, 2022 02:15 PM [facility] Active, Pending, and Scheduled [...] the Encounter. The data comes from all [place] treatment facilities. Test Date/Time Test Type Test Details Facility Name Dec 30, 2021 12:00 AM Laboratory - Chemistry [facility]IC [facility] (non-fasting[facility] (SST-SERUM) SP Dec 30, 2021 12:00 AM Laboratory - Chemistry CBC [facility]LOOD [facility] Order (LAV-BLOOD) [facility] Lab Results: +/- 30 days of the encounter This section includes the Chemistry and Hematology Lab Results on record with [place] for the patient. Radiology Reports and Pathology Reports are provided separately, in subsequent sections.Lab Results This section contains the Chemistry/Hematology Results that were resulted 30 days before or 30 daysafter the date of the Encounter. Date/Time Source Result Type Result - Unit Interpretation Reference Range Comment Nov 16, 2021 [facility] MET[facility]OLIC PANEL Specimen Type: SERUM 02:27 PM [facility] (non-fasting) No comment enter ed. Ordering Provid er: DELMER STALLINGS Report Released Date/Time: Oct 25, 2021 12:46 PM Reporting Lab: [facility] [employer] [facility] [address] [facility] [id number] Performing Lab: [facility] [address] [facility] [id number] UREA NITROGEN 27 H 7-25 GLUCOSE 349 H 65-100 SODIUM 135 135-145 POTASSIUM 4.4 3.5-5.0 CHLORIDE 100 100-110 CO2 26 20-30 CREATININE, Serum 1.89 H 0.50-1.40 eGFR (IDMS) 36 L >60 Social History: Smoking Status (Most current) and Tobacco Use (All prior to encounter date) This section includes the most current, and the historical, smoking and tobacco-related health factors from the [place] facility where the Encounter took place.Current Smoking Status This section includes the most current smoking, or tobacco-related health factor, from the [place] facility where the Encounter took place. Date/Time Current Smoking Status Comment Facility May 11, 2021 01:18 PM VA-TOBACCO NEVER USED [facility] Encounter Notes: All associated encounter notes This section contains the clinical notes associated to the Encounter. Date/Time Encounter Note(s) Provider Source Nov 19, 2021 02:15 PM PHYSICIAN NOTE: DELMER STALLINGS CNTRL W STRN LOCAL TITLE: MD [facility] STANDARD TITLE: PHYSICIAN NOTE DATE OF [...]
--- OUTSIDE RECORDS SUMMARY | 2022-08-25 08:30 | XMS_ITS | Encounter Summary ---
:1950 Author Organization Department of [facility] rs Address [address] [place] [address] Support Name Relationship Address Phone THANIA BERGER Rosmery Unavailable [address] [place] [address] [place] [address] AMELIA BERGER Unavailable [address] [place] [address] Insurance Providers: All historical and current Section [...] AARP INS PRESCRIPT MEDIC Sep 16, PDPIND [id number] [phone] YESSI BERGERZhane PATIENT ION ARE D 2017 251 9 IS MEDICAID [facility] Jul 17, MEDICAI [id number] [phone] DAYAMI BERGER PATIENT EALTH 2014 D [id number] 900 IS [place]AND [place]RISTOPHER MEDICARE MEDICARE PART Sep 16, PART A [id number] [phone] Rosmery BERGER PATIENT (WNR) (M) A 2010A 00 IS MEDICARE MEDICARE PART Sep 16, PART B [id number] [phone] Rosmery BERGER PATIENT (WNR) (M) B 2010A 00 IS MEDICARE MEDICARE PART Sep 16, PART A [id number] Rosmery BERGER PATIENT (WNR) (M) A 2010 [id number] 2 IS MEDICARE MEDICARE PART Sep 16, PART B [id number] Rosmery BERGER PATIENT (WNR) (M) B 2010 [...] 2021 PRIMARY Type 2 diabetes RADHA ALEJANDRE [place] 09:01 AM mellitus with hyperglycemia Nov 23, 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 This section includes future appointments and future orders which are active, pending orscheduled.Future Appointments This section includes appointments that were scheduled to occur 6 months from the date of the Encounter, up to a maximum of 20 appointments. The data comes from all [facility]. Appointment Date/Time Appointment Type Appointment Facili ty Name Dec 21, 2021 03:[address] [facility] Jan 05, 2022 03:30 PM [facility] January 23, 2022 03:00 PM [facility] Feb 14, 2022 08:00 AM [facility] Mar 06, 2022 03:[address] [facility] Mar 09, 2022 12:[address] [facility] Mar 23[facility] 2022 01:[address] [facility] Mar 26, 2022 04:[address] [facility] Apr 02, 2022 04:[address] [facility] Apr 17, 2022 03:[address] [facility] May 14, 2022 02:[address] [facility] Active, Pending, and Scheduled Orders This section includes a listing of several types of active, pending, and scheduled orders, including clinic medications orders, diagnostic test orders, procedure orders and consult orders; where the start date of the order is 45 days before the date of the Encounter or 45 days after the date of the Encounter. The data comes from all [facility]. Test Date/Time Test Type Test Details Facility Name Dec 30, 2021 12:00 AM Laboratory - Chemistry CBC BLOOD [facility] Order (LAV-BLOOD) SP [facility] Dec 30, 2021 12:00 AM Laboratory - Chemistry BASIC METABOLIC [facility] Order PANEL (non-fasting) [facility] BLOOD (SST-SERUM) SP Lab Results: +/- 30 days of the encounter This section includes the Chemistry and Hematology Lab Results on record with [place] for the patient. Radiology Reports and Pathology Reports are provided separately, in subsequent sections.Lab Results This section contains the Chemistry/Hematology Results that were resulted 30 days before or 30 daysafter the date of the Encounter. Date/Time Source Result Type Result - Unit Interpretation Reference Range Comment Nov 16, 2021 [facility] BASIC METABOLIC PANEL Specimen Type: SERUM 02:27 PM [facility] (non-fasting) No comment enter ed. Ordering Provid er: DELMER FIELDS Report Released Date/Time: Oct 25, 2021 12:46 PM Reporting Lab: [facility] [address] [facility] [address] Performing Lab: [facility] [address] [facility] [address] UREA NITROGEN 27 H 7-25 GLUCOSE 349 H 65-100 SODIUM 135 135-145 POTASSIUM 4.4 3.5-5.0 CHLORIDE 100 100-110 CO2 26 20-30 CREATININE, Serum 1.89 H 0.50-1.40 eGFR (IDMS) 36 L >60 Oct 18, 2021 10:04 AM [place] PSA Specimen Type: SERUM Comment: *BASIC METABOLIC PANEL (fasting) Not Performed: Oct 18, 2021@10:05 b *PROCUREMENT REPRESENTATIVE Reason: DUP ORDER Ordering Provid er: AMBIKA KNIGHT Report Released Date/Time: May 11, 2021 01:37 PM Reporting Lab: [facility] [address] [facility] [address] Performing Lab: [facility] [address] [facility] [address] PSA 1.68 0.00-4.00 Oct 18, 2021 10:04 AM [place] TSH Specimen Type: SERUM Comment: *BASIC METABOLIC PANEL (fasting) Not Performed: Oct 18, 2021@10:05 b *PROCUREMENT REPRESENTATIVE Reason: DUP ORDER Ordering Provid er: AMBIKA KNIGHT Report Released Date/Time: May 11, 2021 01:37 PM Reporting Lab: [facility] [place] [facility] [address] [facility] [address] Performing Lab: [facility] [address] [facility] [address] TSH 2.37 0.35-5.00 Oct 18, 2021 10:04 [facility] LIPID PANEL FASTING Specimen Type: SERUM AM [place] [facility] No comment enter ed. Ordering Provid er: DELEMR FIELDS Report Released Date/Time: Jul 24, 2021 04:34 PM Reporting Lab: [facility] [place] [facility] [address] [facility] [address] Performing Lab: [facility] [address] [facility] [address] CHOLESTEROL 176 <7-199 TRIGLYCERIDE 179 H 0-150 LDL calculated 108 0-129 CHOL/HDL 5.5 HDL CHOLESTEROL 32 L 40-60 Oct 18, 2021 [facility] HEMOGLOB[facility] A1C PANEL Specimen T ype: BLOOD 10:04 AM [facility] Comment: Testin g performed by NGSP [...] Jul 24, 2021 04:34 PM Reporting Lab: [facility] [place] [facility] [address] [facility] [address] Performing Lab: [facility] [place] [facility] [address] [facility] [address] HEMOGLOBIN A1C 9.7 H 4.0-5.6 Oct 18, 2021 10:04 [facility] ALBUMIN S pecimen Type: SERUM AM [facility] No comment enter ed. Ordering Provid er: MELANIA RAMOS Report Released Date/Time: Jun 28, 2021 09:09 AM Reporting Lab: [facility] [place] [facility] [address] [facility] [address] Performing Lab: [facility] [place] [facility] [address] [facility] [address] ALBUMIN 4.0 3.5-5.0 Oct 18, 2021 [facility] VITAMIN D (25-OH) Specimen Type : SERUM 10:04 AM [place] [facility] No comment enter ed. Ordering Provid er: MELANIA RAMOS Report Released Date/Time: Jun 28, 2021 09:09 AM Reporting Lab: [facility] [place] [facility] [address] [facility] [address] Performing Lab: [facility] [place] [facility] [address] [facility] [address] VITAMIN D (25-OH) 37 20-50 Oct 18, 2021 [facility] BASIC METABOLIC PANEL Specimen Type: SERUM 10:04 AM [place] [facility] (non-fasting) No comment enter ed. Ordering Provid er: MELANIA RAMOS Report Released Date/Time: Jun 28, 2021 09:09 AM Reporting Lab: [facility] [place] [facility] [address] [facility] [address] Performing Lab: [facility] [place] [facility] [address] [facility] [address] UREA NITROGEN 21 7-25 GLUCOSE 302 H [...] Lab: [facility] [place] [facility] [address] [facility] [address] Performing Lab: [facility] [place] [facility] [address] [facility] [place] [address] WBC 7.69 4.50-11.00 RBC 5.16 4.23-5.66 HGB [...] took place. Date/Time Smoking Status/Tobacco Use Comment [facility] Jan 13, 2018 09:49 AM LIFETIME NON-TOBACCO USER [place] Jan 04, 2017 10:17 AM LIFETIME NON-TOBACCO USER [place] Dec 23, 2015 08:49 AM LIFETIME NON-TOBACCO USER [place] Nov 27, 2005 02:55 PM LIFETIME NON-TOBACCO USER [place] patient reportssmoking only dafne pickett January 22, 2003 10:42 AM LIFETIME NON-SMOKER [facility] Aug 18, 2001 01:54 PM LIFETIME NON-TOBACCO USER [place] pt states he has never smoked May [...] EDUCATION VISIT TODAY: initial education visit for [place] with type 2 diabetes and is here [...] Tingling/Numbness: Hands (X) Feet No concerns 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 Comments: CARDIOVASCULAR/CEREBROVASCULAR: Pain/palpitations Angina [...] g irlfriend Prior diabetes education: yes ASSESSMENT: [place] reports his blood sugars have been runni [...] non starchy veg gies --will request liat Gen One Cigvickie [facility] SELF-CARE AREAS DURING VISIT Individual engaged in activity related to the fo llowing areas during interaction: Food and drink Patient/Family Verbalized Understanding FUTURE APPOINTMENTS: 01/02/2022 13:30 CWM/NO/NEPHROLOGY/PROV 01/23/2022 15:00 NHM/ENDOCRINE TELE 03/06/2022 15:00 CWM/SO/PODIATRY/MAUDE DM type is : type 2 diabetes with hyperglycemia req insulin Length of Visit: 60 minutes /jamal/ RADHA ALEJANDRE [employer]OBE [employer]IXER CDE REGISTERED NURSE Signed: 11/23/2021 09:01 Receipt Acknowledged By: 11/23/2021 11:54 /jamal/ Ambika Knight M.D. STAFF PHYSICIAN 11/23/2021 ADDENDUM STATUS: COMPLETED Dr.fields, I do agree, [place] is a candidate to wear a Shellie re 2 sensor. /jamal/ RADHA ALEJANDRE [employer]OBE BALL MIXER CDE REGISTERED NURSE Signed: 11/23/2021 09:01 Receipt Acknowledged By: 11/25/2021 04:50 /keshawn FIELDS MD STAFF PHYSICIAN 11/25/2021 ADDENDUM STATUS: COMPLETED Sensors and reader ordered. /keshawn FIELDS MD STAFF PHYSICIAN Signed: 11/25/2021 14:23 Receipt Acknowledged By: * AWAITING SIGNATURE * RADHA ALEJANDRE
--- OUTSIDE RECORDS SUMMARY | 2022-08-25 08:31 | XMS_ITS ---
:1950 Author Organization Department of [facility] rs Address [address] [place] [address] Support Name Relationship Address Phone THANIA BERGER Rosmery Unavailable [address] [place] [address] AMELIA BERGER Unavailable [address] [place] [address] Insurance Providers: All historical and current Section [...] AARP INS PRESCRIPT MEDIC Sep 16, PDPIND [id number] [phone] YESSI BERGERZhane PATIENT ION ARE D 2017 [id number] IS MEDICAID MEDICAID [facility] Jul 17, MEDICAI [id number] [phone] DAYAMI BERGER PATIENT EALTH 2014 D [id number] 900 IS [place] MEDICARE MEDICARE PART Sep 16, PART A [id number] [phone] Rosmery BERGER PATIENT (WNR) (M) A 2010 00 IS MEDICARE MEDICARE PART Sep 16, PART B [id number] [phone] Rosmery BERGER PATIENT (WNR) (M) B 2010A 00 IS MEDICARE MEDICARE PART Sep 16, PART A [id number] Rosmery BERGER PATIENT (WNR) (M) A 2010 [id number] 2 IS MEDICARE MEDICARE PART Sep 16, PART B [id number] Rosmery BERGER PATIENT (WNR) (M) B 2010 [id number] 2 IS Selected Encounter This section includes the information on record at [place] for the Encounter. Date/Time Encounter Type Encounter Reason Provider Source Description Nov 24, 2021 [facility] ICD-10-CM Z51.81 Dm [...] 24, 2021 PRIMARY Encounter for PAMELA MATTHEW [facility] WST RN 08:36 AM therapeutic drug A A [place] [facility] level monitoring Plan of Treatment: Future Appointments (+ 6 months) and Future Tests (+/- 45 days) The Plan of Treatment section includes future care activities for the patient from all [place] [facility]. This section includes future appointments and future orders which are active, pending orscheduled.Future Appointments This section includes appointments that were scheduled to occur 6 months from the date of the Encounter, up to a maximum of 20 appointments. The data comes from all [facility]. Appointment Date/Time Appointment Type Appointment Facili ty Name Dec 21, 2021 03:30 PM [facility] Jan 05, 2022 03:[facility] [place] [facility] January 23, 2022 03:00 PM [facility] [place] [facility] Feb 14[facility] 2022 08:00 AM [facility] [place] [facility] Mar 06, 2022 03:00 PM [facility] Mar 09, 2022 12:00 PM [facility] Mar 23, 2022 01:30 PM [facility] Mar 26, 2022 04:00 PM [facility] Apr 02, 2022 04:00 PM [facility] Apr 17, 2022 03:15 PM [facility] May 14, 2022 02:15 PM [facility] Active, Pending, and Scheduled Orders [...] 12:00 AM Laboratory - Chemistry CBC BLOOD [facility] Order (LAV-BLOOD) SP [facility] Dec 30, 2021 12:00 AM Laboratory - Chemistry BASIC METABOLIC [facility] Order PANEL (non-fasting) [facility] BLOOD (SST-SERUM) SP Lab Results: +/- [...] Interpretation Reference Range Comment Nov 16, 2021 [facility] BASIC METABOLIC PANEL Specimen Type: SERUM 02:27 PM [facility] (non-fasting) No comment enter ed. Ordering Provid er: DELMER STALLINGS Report Released Date/Time: Oct 25, 2021 12:46 PM Reporting Lab: [facility] [address] [facility] [address] Performing Lab: [facility] [address] [facility] [address] UREA NITROGEN 27 H 7-25 GLUCOSE 349 [...] 11, 2021 01:18 PM VA-TOBACCO NEVER USED [facility] Encounter Notes: All associated encounter notes This section contains the clinical notes associated to the Encounter. Date/Time Encounter Note(s) Provider Source Nov 24, 2021 08:35 MEDICATION MGT CONSULT: ROB MATTHEW [facility] AM [facility] TITLE: CONSULT REPORT/NON FORMULARY PADR [facility] STANDARD TITLE: MEDICATION MGT CONSULT DATE [...] o be made [X ] Followed by [facility] diabetes management t eam (diabetes education, pharmacy, or endocrine). 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
--- OUTSIDE RECORDS SUMMARY | 2022-08-25 08:31 | XMS_ITS ---
:1950 Author Organization Department of [facility] rs Address [address] [place] [address] Support Name Relationship Address Phone THANIA BERGER [place] [address] [place] [address] AMELIA BERGER Unavailable [address] [place] [address] Insurance Providers: All historical and current Section [...] AARP INS PRESCRIPT MEDIC Sep 16, PDPIND [id number] [phone] YESSI BERGERZhane PATIENT ION ARE D 2017 [id number] IS MEDICAID MEDICAID [facility] Jul 17, MEDICAI [id number] YESSI BERGERZhane PATIENT EALTH 2014 D [id number] 900 IS [place] MEDICARE MEDICARE PART Sep 16, PART A [id number] [phone] Rosmery BERGER PATIENT (WNR) (M) A 2010 00 IS MEDICARE MEDICARE PART Sep 16, PART B [id number] [phone] Rosmery BERGER PATIENT (WNR) (M) B 2010 00 IS MEDICARE MEDICARE PART Sep 16, PART A [id number] Rosmery BERGER PATIENT (WNR) (M) A 2010 XH29 2 IS MEDICARE MEDICARE PART Sep 16, PART B [id number] Rosmery BERGER PATIENT (WNR) (M) B 2010 XH29 2 IS Selected Encounter This section includes the information on record at [place] for the Encounter. Date/Time Encounter Type Encounter Reason Provider Source Description Dec 02, 2021 Outpatient TELEPHONE/MEDICI ICD-10-CM E11.8 DELMER STALLINGS 12:54 PM Encounter [place] Type 2 diabetes mellitus with unspecified complications with Provider Comments: Type II diabetes mellitus ([facility] [id number]) IHE Encounter Template Text not used by [place] Assessments - Encounter Diagnoses This section includes the primary and secondary diagnoses documented for the Encounter. Date/Time Primary/Secondary Diagnosis Name Provider Source Diagnosis Dec 02, 2021 PRIMARY Type 2 diabetes DELMER STALLINGS [facility] WST RN 12:54 PM mellitus with [place] unspecified complications Plan of Treatment: Future Appointments (+ 6 months) and Future Tests (+/- 45 days) The Plan of Treatment section includes future care activities for the patient from all [place] [facility]. This section includes future appointments and future orders which are active, pending orscheduled.Future Appointments This section includes appointments that were scheduled to occur 6 months from the date of the Encounter, up to a maximum of 20 appointments. The data comes from all [place] [facility]. Appointment Date/Time Appointment Type Appointment Facili ty Name Dec 21, 2021 03:30 PM [facility] Jan 05, 2022 03:30 PM [facility] January 23, 2022 03:00 PM [facility] [place] [facility] Feb 14, 2022 08:00 AM [facility] [place] [facility] Mar 06, 2022 03:00 PM [facility] Mar 09, 2022 12:00 PM [facility] Mar 23, 2022 01:30 PM [facility] Mar 26, 2022 04:00 PM [facility] Apr 02, 2022 04:00 PM [facility] Apr 17, 2022 03:15 PM [facility] May 14, 2022 02:15 PM [facility] Active, Pending, and Scheduled Orders This section includes a listing of several types of active, pending, and scheduled orders, including clinic medications orders, diagnostic test orders, procedure orders and consult orders; where the start date of the order is 45 days before the date of the Encounter or 45 days after the date of the Encounter. The data comes from all [facility]. Test Date/Time Test Type Test Details Facility Name Dec 30, 2021 12:00 AM Laboratory - [facility] (non-fasting[facility] BLOOD (SST-SERUM) SP Dec 30, 2021 12:00 AM Laboratory - Chemistry [facility]OD [facility] (LAV-BLOOD) SP [facility] Lab Results: +/- 30 days [...] Interpretation Reference Range Comment Nov 16, 2021 [facility] BASIC METABOLIC PANEL Specimen Type: SERUM 02:27 PM [facility] (non-fasting) No comment enter ed. Ordering Provid er: DELMER STALLINGS Report Released Date/Time: Oct 25, 2021 12:46 PM Reporting Lab: [facility] [address] [facility] [address] Performing Lab: [facility] [address] [facility] [address] UREA NITROGEN 27 H 7-25 GLUCOSE 349 [...] 11, 2021 01:18 PM VA-TOBACCO NEVER USED [facility] Encounter Notes: All associated encounter notes This section contains the clinical notes associated to the Encounter. Date/Time Encounter Note(s) Provider Source Dec 02, 2021 12:54 PM PHYSICIAN NOTE: DELMER STALLINGS [facility] LOCAL TITLE: MD BLOSSOM Toro [facility] STANDARD TITLE: PHYSICIAN NOTE DATE [...]
--- OUTSIDE RECORDS SUMMARY | 2022-08-25 08:31 | XMS_ITS | Encounter Summary ---
:1950 Author Organization Department of [facility] rs Address [address] [place] [address] Support Name Relationship Address Phone THANIA BERGER Unavailable [address] [place] [address] AMELIA BERGER Unavailable [address] [place] [address] Insurance Providers: All historical and current Section [...] AARP INS PRESCRIPT MEDIC Sep 16, PDPIND [id number] [phone] YESSI BERGERZhane PATIENT ION ARE D 2017 [id number] IS MEDICAID MEDICAID [facility] Jul 17, MEDICAI [id number] [phone] DAYAMI BERGER PATIENT EALTH 2014 D [id number] 900 IS [place]AND [place]HER MEDICARE MEDICARE PART Sep 16, PART A [id number] [phone] Rosmery BERGER PATIENT (WNR) (M) A 2010 00 IS MEDICARE MEDICARE PART Sep 16, PART B [id number] [phone] Rosmery BERGER PATIENT (WNR) (M) B 2010A 00 IS MEDICARE MEDICARE PART Sep 16, PART B [id number] Rosmery BERGER PATIENT (WNR) (M) B 2010 XH29 2 IS MEDICARE MEDICARE PART Sep 16, PART A [id number] Rosmery BERGER PATIENT (WNR) (M) A 2010 [id number] 2 IS Selected Encounter This section includes the information on record at [place] for the Encounter. Date/Time Encounter Type Encounter Description Reason Provider Source Dec 01, 2021 02:32 Outpatient Encounter ENDOCRINOLOGY PM IHE Encounter Template Text not used by [place] Plan of Treatment: Future Appointments (+ 6 months) and Future Tests (+/- 45 days) The Plan of Treatment section includes future care activities for the patient from all [place] [facility] This section includes future appointments and future orders which are active, pending orscheduled.Future Appointments This section includes appointments that were scheduled to occur 6 months from the date of the Encounter, up to a maximum of 20 appointments. The data comes from all [facility]. Appointment Date/Time Appointment Type Appointment Facili ty Name Dec 21, 2021 03:30 PM [facility] Jan 05, 2022 03:30 PM [facility] January 23, 2022 03:00 PM [facility] Feb 14, 2022 08:00 AM [facility] Mar 06, 2022 03:00 PM [facility] Mar 09, 2022 12:00 PM [facility] Mar 23, 2022 01:30 PM [facility] Mar 26, 2022 04:00 PM [facility] Apr 02, 2022 04:00 PM [facility] Apr 17, 2022 03:15 PM [facility] May 14, 2022 02:15 PM [facility] Active, Pending, and Scheduled Orders This section includes a listing of several types of active, pending, and scheduled orders, including clinic medications orders, diagnostic test orders, procedure orders and consult orders; where the start date of the order is 45 days before the date of the Encounter or 45 days after the date of the Encounter. The data comes from all [facility]. Test Date/Time Test Type Test Details Facility Name Dec 30, 2021 12:00 AM Laboratory - Chemistry BASIC METABOLIC [facility] Order PANEL (non-fasting) [facility] BLOOD (SST-SERUM) SP Dec 30, 2021 12:00 AM Laboratory - Chemistry CBC BLOOD [facility] Order (LAV-BLOOD) SP [facility] Lab Results: +/- 30 days [...] Interpretation Reference Range Comment Nov [facility] Specimen Type: SERUM 02:27 PM [facility] (non-fasting) No comment enter ed. Ordering Provid er: DELMER STALLINGS Report Released Date/Time: Oct 25, 2021 12:46 PM Reporting Lab: [facility] [address] [facility] [address] Performing Lab: [facility] [address] [facility] [address] UREA NITROGEN 27 H 7-25 GLUCOSE 349 [...] 11, 2021 01:18 PM [place]-TO[place]ACCO NEVER USED [facility] Encounter Notes: All associated encounter notes This section contains the clinical notes associated to the Encounter. Date/Time Encounter Note(s) Provider Source Dec 01, 2021 02:32 PM TELEPHONE ENCOUNTER NOTE: SOFIA PRESTON [facility] LOCAL TITLE: TELEPHONE NOTE/SPECIALTY CLINIC [facility] STANDARD TITLE: TELEPHONE ENCOUNTER NOTE DATE OF NOTE: DEC 01, 2021@14:32 ENTRY DATE: DEC 01, 2021@14:32:20 AUTHOR: SOFIA PRESTON EXP COSIGNER: URGENCY: STATUS: COMPLETED vet called in requsting a call back from [facility], did not detail what about, they requested a call back on [phone] /es/ SOFIA PRESTON Signed: 12/01/2021 14:33 Receipt Acknowledged By: * AWAITING SIGNATURE * DELMER STALLINGS
--- OUTSIDE RECORDS SUMMARY | 2022-08-25 08:31 | XMS_ITS | Encounter Summary ---
:1950 Author Organization Department of [facility] rs Address [address] [place] [address] Support Name Relationship Address Phone THANIA BERGER Rosmery Unavailable [address] [place] [address] [place] [address] AMELIA BERGER Unavailable [address] [place] [address] Insurance Providers: All historical and current Section [...] AARP INS PRESCRIPT MEDIC Sep 16, PDPIND [id number] [phone] CELINE DAYAMI PATIENT ION ARE D 2017 [id number] 9 IS MEDICAID MEDICAID [facility] Jul 17, MEDICAI [id number] YESSI BERGERZhane PATIENT EALTH 2014 D [id number] 900 IS [place] MEDICARE MEDICARE PART Sep 16, PART A [id number] [phone] Rosmery BERGER PATIENT (WNR) (M) A 2010A 00 IS MEDICARE MEDICARE PART Sep 16, PART B [id number] [phone] Rosmery BERGER PATIENT (WNR) (M) B 2010A 00 IS MEDICARE MEDICARE PART Sep 16, PART A [id number] Rosmery BERGER PATIENT (WNR) (M) A 2010 XH29 2 IS MEDICARE MEDICARE PART Sep 16, PART B [id number] Rosmery BERGER PATIENT (WNR) (M) B 2010 [...] Encounter Template Text not used by [place] Assessments - Encounter Diagnoses This section includes the primary and secondary diagnoses documented for the Encounter. Date/Time Primary/Secondary Diagnosis Name Provider Source Diagnosis Dec 01, 2021 PRIMARY Type 2 diabetes RADHA ALEJANDRE [place] 03:24 PM mellitus with hyperglycemia Dec 01, 2021 [facility] senior care (current) RADHA ALEJANDRE [facility] 03:24 PM use of insulin Plan of Treatment: Future Appointments (+ 6 months) and Future Tests (+/- 45 days) The Plan of Treatment section includes future care activities for the patient from all [place] [facility]. This section includes future appointments and future orders which are active, pending orscheduled.Future Appointments This section includes appointments that were scheduled to occur 6 months from the date of the Encounter, up to a maximum of 20 appointments. The data comes from all [place] treatment [facility]. Appointment Date/Time Appointment Type Appointment Facili ty Name Dec 21, 2021 03:30 PM [facility] Jan 05, 2022 03:30 [facility] January 23, 2022 03:00 [facility] Feb 14[facility] 2022 08:00 AM [facility] Mar 06, 2022 03:00 PM [facility] Mar 09, 2022 12:00 PM [facility] Mar 23, 2022 01:30 PM [facility] Mar 26, 2022 04:00 PM [facility] Apr 02, 2022 04:00 PM [facility] Apr 17, 2022 03:15 PM [facility] May 14, 2022 02:15 PM [facility] Active, Pending, and Scheduled Orders [...] 12:00 AM Laboratory - Chemistry BASIC METABOLIC [facility] Order PANEL (non-fasting) [facility] BLOOD (SST-SERUM) SP Dec 30, 2021 12:00 AM Laboratory - Chemistry CBC BLOOD [facility] Order (LAV-BLOOD) SP [facility] Lab Results: +/- 30 days [...] Interpretation Reference Range Comment Nov 16, 2021 [facility] BASIC METABOLIC PANEL Specimen Type: SERUM 02:27 PM [facility] (non-fasting) No comment enter ed. Ordering Provid er: DELMER STALLINGS Report Released Date/Time: Oct 25, 2021 12:46 PM Reporting Lab: [facility] [address] [facility] [address] Performing Lab: [facility] [address] [facility] [address] UREA NITROGEN 27 H 7-25 GLUCOSE 349 [...] Comment Facility February 03, 2019 10:28 AM [place]-TO[place]AC[place] NEVER USED [facility] Tobacco Use History This section includes a history of the smoking, or tobacco- related health factors, that were collected on or before the date of the Encounter. The data comes from the [place] facility where the Encounter took place. Date/Time Smoking Status/Tobacco Use Comment [facility] Jan 13, 2018 09:49 AM LIFETIME NON-TOBACCO USER [place] Jan 04, 2017 10:17 AM LIFETIME NON-TOBACCO USER [place] Dec 23, 2015 08:49 AM LIFETIME NON-TOBACCO USER [place] Nov 27, 2005 02:55 PM LIFETIME NON-TOBACCO USER [facility] patient reportssmoking only dafne pickett January 22, 2003 10:42 AM LIFETIME NON-SMOKER [facility] Aug 18, 2001 01:54 PM LIFETIME NON-TOBACCO USER [place] pt states he has never smoked May 14, 2001 02:23 PM LIFETIME NON-SMOKER [facility] Encounter Notes: All associated encounter notes This section contains the clinical notes associated to the Encounter. Date/Time Encounter Note(s) Provider Source Dec 01, 2021 03:24 PM DIABETOLOGY TELEPHONE ENCOUNTER NOTE: RADHA [facility] [place] LOCAL TITLE: DIABETES EDU TELEPHONE NOTE STANDARD TITLE: DIABETOLOGY TELEPHONE ENCOUNTER NOTE DATE OF NOTE: DEC 01, 2021@15:24 ENTRY DATE: DEC 01, 2021@15:24:56 AUTHOR: RADHA ALEJANDRE EXP COSIGNER: URGENCY: STATUS: COMPLETED called [place] to set up tra ining for Sidra [...] reason: type 2 diabetes /es/ RADHA ALEJANDRE, MEDICAL CLERK CDE REGISTERED NURSE Signed: 12/01/2021 15:27 Receipt Acknowledged By: * AWAITING SIGNATURE * DELMER STALLINGS
--- OUTSIDE RECORDS SUMMARY | 2022-08-25 08:32 | XMS_ITS ---
:1950 Author Organization Department of [facility] rs Address [address] [place] [address] Support Name Relationship Address Phone THANIA BERGER Unavailable [address] [place] [address] [place] [address] AMELIA BERGER Unavailable [address] [place] [address] Insurance Providers: All historical and current Section [...] AARP INS PRESCRIPT MEDIC Sep 16, PDPIND [id number] [phone] DAYAMI BERGER PATIENT ION ARE D 2017 [id number] IS MEDICAID MEDICAID [facility] Jul 17, MEDICAI [id number] DAYAMI BERGER PATIENT EALTH 2014 D [id number] 900 IS [place] MEDICARE MEDICARE PART Sep 16, PART A [id number] [phone] Rosmery BERGER PATIENT (WNR) (M) A 2010 00 IS MEDICARE MEDICARE PART Sep 16, PART B [id number] [phone] Rosmery BERGER PATIENT (WNR) (M) B 2010 00 IS MEDICARE MEDICARE PART Sep 16, PART A [id number] Rosmery BERGER PATIENT (WNR) (M) A 2010 XH29 2 IS MEDICARE MEDICARE PART Sep 16, PART B [id number] Rosmery BERGER PATIENT (WNR) (M) B 2010 XH29 2 IS Selected Encounter This section includes the information on record at [place] for the Encounter. Date/Time Encounter Type Encounter Description Reason Provider Source Jan 02, 2022 01:30 Outpatient Encounter RENAL/NEPHROL(EXCEPT PM DIALYSIS) IHE Encounter Template Text not used by [place] Plan of Treatment: Future Appointments (+ 6 months) and Future Tests (+/- 45 days) The Plan of Treatment section includes future care activities for the patient from all [place] [facility] This section includes future appointments and future orders which are active, pending orscheduled.Future Appointments This section includes appointments that were scheduled to occur 6 months from the date of the Encounter, up to a maximum of 20 appointments. The data comes from all [place] treatment [facility]. Appointment Date/Time Appointment Type Appointment Facili ty Name Jan 05, 2022 03:[address] [facility] January 23, 2022 03:00 PM [facility] Feb 14, 2022 08:00 AM [facility] Mar 06, 2022 03:00 PM [facility] Mar 09, 2022 12:00 PM [facility] Mar 23, 2022 01:30 PM [facility] Mar 26, 2022 04:00 PM [facility] Apr 02, 2022 04:00 PM [facility] Apr 17, 2022 03:15 PM [facility] May 14, 2022 02:15 PM [facility] Jun 14, 2022 01:30 PM [facility] Jul 04, 2022 03:00 PM [facility] Jul 04, 2022 03:15 PM [facility] Active, Pending, and Scheduled Orders This section includes a listing of several types of active, pending, and scheduled orders, including clinic medications orders, diagnostic test orders, procedure orders and consult orders; where the start date of the order is 45 days before the date of the Encounter or 45 days after the date of the Encounter. The data comes from all [place] treatment [facility]. Test Date/Time Test Type Test Details Facility Name Dec 30, 2021 12:00 Laboratory - BASIC METABOLIC PANEL [facility] Chemistry Order (non-fasting) [place]LOOD [place] [facility] [facility] [address] [facility] [address] Performing Lab: [facility] [address] [facility] [address] PO4 3.5 2.5-5.0 January 18, 2022 07:58 [facility] PTH INTACT Specimen Typ e: SERUM AM [facility] No comment enter ed. Ordering Provid er: MELANIA RAMOS Report Released Date/Time: Nov 08, 2021 04:09 PM Reporting Lab: [facility] [address] [facility] [address] Performing Lab: [facility] [address] [facility] [address] PTH INTACT 122.6 H 10-65 January 18, 2022 07:58 [facility] MAGNESIUM Specimen Typ e: SERUM AM [facility] No comment enter ed. Ordering Provid er: MELANIA RAMOS Report Released Date/Time: Nov 08, 2021 04:09 PM Reporting Lab: [facility] [address] [facility] [address] Performing Lab: [facility] [address] [facility] [address] MAGNESIUM 2.0 1.6-2.6 January 18, 2022 07:58 [facility] [place] CALCIUM S pecimen Type: SERUM AM [facility] No comment enter ed. Ordering Provid er: MELANIA RAMOS Report Released Date/Time: Nov 08, 2021 04:09 PM Reporting Lab: [facility] [address] [facility] [address] Performing Lab: [place] [facility] [address] [facility] [address] CALCIUM 9.9 8.5-10.2 January 18, 2022 [facility] ALKALINE PHOSPHATASE Specimen T ype: SERUM 07:58 AM [facility] No comment enter ed. Ordering Provid er: MELANIA RAMOS Report Released Date/Time: Nov 08, 2021 04:09 PM Reporting Lab: [facility] [address] [facility] [address] Performing Lab: [facility] [facility] [address] [facility] [address] ALKALINE PHOSPHATASE 83 40-150 January 18, 2022 [facility] BASIC METABOLIC PANEL Specimen Type: SERUM 07:58 AM [facility] [facility] (non-fasting) No comment enter ed. Ordering Provid er: MELANIA RAMOS Report Released Date/Time: Nov 08, 2021 04:09 PM Reporting Lab: [facility] [address] [facility] [address] Performing Lab: [facility] [address] [facility] [address] UREA NITROGEN 22 7-25 GLUCOSE 203 H 65-100 SODIUM 138 135-145 POTASSIUM 4.4 3.5-5.0 CHLORIDE 106 100-110 CO2 25 20-30 CREATININE, Serum 1.68 H 0.50-1.40 eGFR(CKD-EPI 2020) 43 L >60 January 18, 2022 [facility] HEMOGLOBIN A1C PANEL Specimen T ype: BLOOD 07:58 AM [place] [facility] Comment: Testin g performed by NGSP certified Stallings Enzymatic with CV <2%. The Stallings HgA1C assay should not be used to diagnose or monitor diabetes in patients with altered red cell lifespan such a s homozygous hem oglobin variants, Hb SC, HbF>5% and hemolytic anemia. Heterozygous variants do not affect this assay, HbAS, HbAC, HbAD, HbAE, AbA2 Ordering Provid er: DLEMER STALLINGS Report Released Date/Time: Dec 29, 2021 01:34 PM Reporting Lab: [facility] [address] [facility] [address] Performing Lab: [facility] [place] [facility] [address] [facility] [address] HEMOGLOBIN A1C 10.5 H 4.0-5.6 January 18, 2022 [facility] MICROALBUMIN CREATININE Specime n Type: URINE 07:58 AM [facility] [facility] RATIO PANEL No comment enter ed. Ordering Provid er: DELMER STALLINGS Report Released Date/Time: Dec 29, 2021 01:34 PM Reporting Lab: [place] [facility] [address] [facility] [address] Performing Lab: [facility] [place] [facility] [address] [facility] [address] MICROALBUMIN/CREATININE RATIO 308.5 H 0-29.9 MICROALBUMIN,QUANTITATIVE 20.7 RR U NAVAIL CREATININE URINE 67.10 January 18, 2022 [facility] BASIC METABOLIC PANEL Specimen Type: SERUM 07:58 AM [place] [facility] (fasting) No comment enter ed. Ordering Provid er: DELMER STALLINGS Report Released Date/Time: Dec 29, 2021 01:34 PM Reporting Lab: [facility] [address] [facility] [address] Performing Lab: [place] [facility] [address] [facility] [address] UREA NITROGEN 22 7-25 GLUCOSE 207 H 65-100 SODIUM 138 135-145 POTASSIUM 4.5 3.5-5.0 CHLORIDE 105 100-110 CO2 27 20-30 CREATININE, Serum 1.73 H 0.50-1.40 eGFR(CKD-EPI 2020) 42 L >60 January 18, 2022 07:58 [facility] LIPID [facility]EL FASTING Specimen Type: SERUM AM [facility] No comment enter ed. Ordering Provid er: DELMER STALLINGS Report Released Date/Time: Dec 29, 2021 01:34 PM Reporting Lab: [facility] [address] [facility] [address] Performing Lab: [facility] [address] [facility] [address] CHOLESTEROL 192 <7-199 TRIGLYCERIDE 180 H 0-150 LDL calculated 118 0-129 CHOL/HDL 5.1 HDL CHOLESTEROL 38 L 40-60 Social History: Smoking Status (Most [...] 11, 2021 01:18 PM [place]-TOBACCO NEVER USED [facility] Encounter Notes: All associated encounter notes This section contains the clinical notes associated to the Encounter. Date/Time Encounter Note(s) Provider Source Dec 18, 2021 10:02 AM TELEPHONE ENCOUNTER NOTE: ROCKY MCCAULEY [facility] LOCAL TITLE: TELEPHONE NOTE/SPECIALTY CLINIC [facility] STANDARD TITLE: TELEPHONE ENCOUNTER NOTE DATE [...] By: 12/18/2021 16:22 /jamal/ NASEEM SMART ADVANCED CLINICAL RESEARCH TECHNICIAN 12/20/2021 08:37 /jamal/ GARIMA SNOW 12/18/2021 ADDENDUM STATUS: COMPLETED cx appt. /jamal/ NASEEM SMART ADVANCED CLINICAL RESEARCH TECHNICIAN Signed: 12/18/2021 14:37 12/18/2021 ADDENDUM STATUS: COMPLETED left a message to call back [phone] ext [phone] opt 3 to reschedule nephrology appt. /jamal/ NASEEM SMART ADVANCED CLINICAL RESEARCH TECHNICIAN Signed: 12/18/2021 16:21 12/20/2021 ADDENDUM STATUS: COMPLETED pt rescheduled 01/03/22 tele-x /jamal/ GARIMA SNOW Signed: 12/20/2021 08:38 Receipt Acknowledged By: 12/20/2021 08:43 /es/ ROCKY Mccauley LPN LICENSED PRACTICAL NURSE
--- OUTSIDE RECORDS SUMMARY | 2022-08-25 08:32 | XMS_ITS | Encounter Summary ---
:1950 Author Organization Department of [facility] rs Address [address] [place] [address] Support Name Relationship Address Phone THANIA BERGER [place] [address] AMELIA BERGER Unavailable [address] [place] [address] Insurance Providers: All historical and current Section [...] AARP INS PRESCRIPT MEDIC Sep 16, PDPIND [id number] [phone] YESSI BERGERZhane PATIENT ION ARE D 2017 251 [id number] IS MEDICAID MEDICAID [facility] Jul 17, MEDICAI [id number] YESSI BERGERZhane PATIENT EALTH 2014 D [id number] IS [place] MEDICARE MEDICARE PART Sep 16, PART A [id number] [phone] Rosmery BERGER PATIENT (WNR) (M) A 2010 00 IS MEDICARE MEDICARE PART Sep 16, PART B [id number] [phone] Rosmery BERGER PATIENT (WNR) (M) B 2010 00 IS MEDICARE MEDICARE PART Sep 16, PART A [id number] Rosmery BERGER PATIENT (WNR) (M) A 2010 [id number] 2 IS MEDICARE MEDICARE PART Sep 16, PART B [id number] Rosmery BERGER PATIENT (WNR) (M) B 2010 [...] 2022 PRIMARY Type 2 diabetes RADHA ALEJANDRE [facility] WS TRN 03:30 PM mellitus with [place] [facility] hyperglycemia Jan 05, 2022 SECONDARY custodial RADHA ALEJANDRE [facility] WSTRN 03:30 PM (current) use of [place] [facility] insulin Plan of Treatment: Future Appointments (+ [...] January 23, 2022 03:00 PM [facility] Feb 14, 2022 08:00 AM [facility] Mar 06, 2022 03:00 PM [facility] Mar 09, 2022 12:00 PM [facility] Mar 23, 2022 01:30 PM [facility] Mar 26, 2022 04:00 PM AMBULATORY [facility] Apr 02, 2022 04:00 PM AMBULATORY [facility] Apr 17, 2022 03:15 PM AMBULATORY [facility] May 14, 2022 02:15 PM [facility] Jun 14, 2022 01:30 PM [facility] [place] [facility] Jul 04, 2022 03:00 PM [facility] [place] [facility] Jul 04, 2022 03:15 PM [facility] Jul 05, 2022 01:30 PM AMBULATORY - [...] the Encounter. The data comes from all [place] treatment facilities. Test Date/Time Test Type Test Details Facility Name Dec 30, 2021 12:00 Laboratory - CBC BLOOD (LAV-BLOOD) [facility] AM Chemistry Order SP [facility] [facility] Dec 30, 2021 12:00 Laboratory - BASIC METABOLIC PANEL [facility] AM Chemistry Order (non-fasting) BLOOD [facility] (SST-SERUM) SP February 05, 2022 12:00 Laboratory - MICROALBUMIN CREATININE [place] [facility] AM Chemistry Order RATIO [...] CNTRL WSTRN [facility] [address] [facility] [address] Performing Lab: [facility] [address] [facility] [address] PO4 3.5 2.5-5.0 January 18, 2022 07:58 [facility] PTH INTACT Specimen Typ e: SERUM AM [facility] No comment enter ed. Ordering Provid er: MELANIA RAMOS Report Released Date/Time: Nov 08, 2021 04:09 PM Reporting Lab: [facility] [facility] [address] [facility] [address] Performing Lab: [facility] [address] [facility] [address] PTH INTACT 122.6 H 10-65 January 18, 2022 07:58 [facility] MAGNESIUM Specimen Typ e: SERUM AM [facility] No comment enter ed. Ordering Provid er: MELANIA RAMOS Report Released Date/Time: Nov 08, 2021 04:09 PM Reporting Lab: [facility] [place] [facility] [address] [facility] [address] Performing Lab: [facility] [place] [facility] [address] [facility] [address] MAGNESIUM 2.0 1.6-2.6 January 18, 2022 07:58 [facility] [place] CALCIUM S pecimen Type: SERUM AM [facility] No comment enter ed. Ordering Provid er: MELANIA RAMOS Report Released Date/Time: Nov 08, 2021 04:09 PM Reporting Lab: [facility] [facility] [address] [facility] [address] Performing Lab: [facility] [facility] [address] [facility] [address] CALCIUM 9.9 8.5-10.2 January 18, 2022 [facility] ALKALINE PHOSPHATASE Specimen T ype: SERUM 07:58 AM [facility] No comment enter ed. Ordering Provid er: MELANIA RAMOS Report Released Date/Time: Nov 08, 2021 04:09 PM Reporting Lab: [facility] [place] [facility] [address] [facility] [address] Performing Lab: [facility] [place] [facility] [address] [facility] [address] ALKALINE PHOSPHATASE 83 40-150 January 18, 2022 [facility] BASIC METABOLIC PANEL Specimen Type: SERUM 07:58 AM [facility] (non-fasting) No comment enter ed. Ordering Provid er: MELANIA RAMOS Report Released Date/Time: Nov 08, 2021 04:09 PM Reporting Lab: [facility] [place] [facility] [address] [facility] [address] Performing Lab: [facility] [place] [facility] [address] [facility] [address] UREA NITROGEN 22 7-25 GLUCOSE 203 H 65-100 SODIUM 138 135-145 POTASSIUM 4.4 3.5-5.0 CHLORIDE 106 100-110 CO2 25 20-30 CREATININE, Serum 1.68 H 0.50-1.40 eGFR(CKD-EPI 2020) 43 L >60 January 18, 2022 [facility] HEMOGLOBIN A1C PANEL Specimen T ype: BLOOD 07:58 AM [place] [facility] Comment: Testin g performed by [...] 29, 2021 01:34 PM Reporting Lab: [facility] [place] [facility] [address] [facility] [address] Performing Lab: [facility] [place] [facility] [address] [facility] [address] HEMOGLOBIN A1C 10.5 H 4.0-5.6 January 18, 2022 [facility] MICROALBUMIN CREATININE Specime n Type: URINE 07:58 AM [place] [facility] RATIO PANEL No comment enter ed. Ordering Provid er: DELMER STALLINGS Report Released Date/Time: Dec 29, 2021 01:34 PM Reporting Lab: [facility] [place] [facility] [address] [facility] [address] Performing Lab: [facility] [place] [facility] [address] [facility] [address] MICROALBUMIN/CREATININE RATIO 308.5 H 0-29.9 MICROALBUMIN,QUANTITATIVE 20.7 RR U NAVAIL CREATININE URINE 67.10 January 18, 2022 07:58 [facility] LIPID PANEL FASTING Specimen Type: SERUM AM [place] [facility] No comment enter ed. Ordering Provid er: DELMER STALLINGS Report Released Date/Time: Dec 29, 2021 01:34 PM Reporting Lab: [place] [facility] [place] [facility] [address] [facility] [address] Performing Lab: [place] [facility] [place] [facility] [address] [facility] [address] CHOLESTEROL 192 <7-199 TRIGLYCERIDE 180 H 0-150 LDL calculated 118 0-129 CHOL/HDL 5.1 HDL CHOLESTEROL 38 L 40-60 January 18, 2022 [place] [facility] BASIC METABOLIC PANEL Specimen Type: SERUM 07:58 AM [place] [facility] (fasting) No comment enter ed. Ordering Provid er: DELMER STALLINGS Report Released Date/Time: Dec 29, 2021 01:34 PM Reporting Lab: [place] [facility] [place] [facility] [address] [facility] [address] Performing Lab: [place] [facility] [place] [facility] [address] [facility] [address] UREA NITROGEN 22 7-25 GLUCOSE 207 H [...] VA-TOBACCO NEVER USED [place] C NTRL [facility] Encounter Notes: All associated encounter notes This section contains the clinical notes associated to the Encounter. Date/Time Encounter Note(s) Provider Source Jan 05, 2022 03:30 PM DIABETOLOGY TELEPHONE ENCOUNTER NOTE: RADHA CLINTON [place] [facility] LOCAL TITLE: DIABETES EDU TELEPHONE NOTE [place] [facility] STANDARD TITLE: DIABETOLOGY TELEPHONE ENCOUNTER NOTE DATE OF NOTE: JAN 05, 2022@15:30 ENTRY DATE: JAN 05, 2022@15:58:54 AUTHOR: RADHA ALEJNADRE EXP COSIGNER: URGENCY: STATUS: COMPLETED DIABETES EDU TELEPHONE NOTE Has ADDENDA SENSOR FOLLOW UP DIABETES EDUCATION VISIT Demographics: Patient Name: JESSICA BERGER : Aug Age: 71 Sex: MALE Race: WHITE Due to COVID-19 precautions this visit has bee n converted to a telephone encounter. REASON FOR VISIT: follow up call to [facility] with type 2 diabetes w ho started [...] CAUSES/SYMPTOMS reports understanding TREATMENT/PREVENTION reports understanding ASSESSMENT: [facility] reports being extrem faiza happy with wearing [...] tolerated --next follow up with Dr.Abb freire-- [facility] is unable to upload sensor from home. [...]
--- OUTSIDE RECORDS SUMMARY | 2022-08-25 08:32 | XMS_ITS | Encounter Summary ---
:1950 Author Organization Department of [facility] rs Address [address] [place] [address] Support Name Relationship Address Phone THANIA BERGER Rosmery Unavailable [address] [place] [address] [place] [address] AMELIA BERGER Unavailable [address] [place] [address] Insurance Providers: All historical and current Section [...] AARP INS PRESCRIPT MEDIC Sep 16, PDPIND [id number] [phone] YESSI BERGERZhane PATIENT ION ARE D 2017 251 [id number] IS MEDICAID MEDICAID [facility] Jul 17, MEDICAI [id number] [phone] DAYAMI BERGER PATIENT EALTH 2014 D [id number] 900 IS [place] MEDICARE MEDICARE PART Sep 16, PART A [id number] [phone] Rosmery BERGER PATIENT (WNR) (M) A 2010A 00 IS MEDICARE MEDICARE PART Sep 16, PART B [id number] [phone] Rosmery BERGER PATIENT (WNR) (M) B 2010A 00 IS MEDICARE MEDICARE PART Sep 16, PART A [id number] Rosmery BERGER PATIENT (WNR) (M) A 2010 [id number] 2 IS MEDICARE MEDICARE PART Sep 16, PART B [id number] Rosmery BERGER PATIENT (WNR) (M) B 2010 [...] Encounter Template Text not used by [place] Assessments - Encounter Diagnoses This section includes the primary and secondary diagnoses documented for the Encounter. Date/Time Primary/Secondary Diagnosis Name Provider Source Diagnosis Dec 22, 2021 PRIMARY Type 2 diabetes RADHA ALEJANDRE [place] 10:28 AM mellitus with hyperglycemia Plan of Treatment: Future Appointments (+ 6 months) and Future Tests (+/- 45 days) The Plan of Treatment section includes future care activities for the patient from [facility] [place] [facility] This section includes future appointments and future orders which are active, pending orscheduled.Future Appointments This section includes appointments that were scheduled to occur 6 months from the date of the Encounter, up to a maximum of 20 appointments. The data comes from all [facility]. Appointment Date/Time Appointment Type Appointment Facili ty Name Jan 05, 2022 03:30 PM [facility] January 23, 2022 03:00 PM [facility] Feb 14, 2022 08:00 AM [facility] Mar 06, 2022 03:00 PM [facility] Mar 09, 2022 12:00 PM [facility] Mar 23, 2022 01:30 PM [facility] Mar 26, 2022 04:00 PM [facility] Apr 02, 2022 04:00 PM [facility] Apr 17, 2022 03:15 PM [facility] May 14, 2022 02:15 PM [facility] Jun 14, 2022 01:30 PM [facility] Active, Pending, and Scheduled Orders This section includes a listing of several types of active, pending, and scheduled orders, including clinic medications orders, diagnostic test orders, procedure orders and consult orders; where the start date of the order is 45 days before the date of the Encounter or 45 days after the date of the Encounter. The data comes from all [facility]. Test Date/Time Test Type Test Details Facility Name Dec 30, 2021 12:00 AM Laboratory - Chemistry CBC BLOOD [place] [facility] Order (LAV-BLOOD) SP [place] [facility] Dec 30, 2021 12:00 AM Laboratory - Chemistry BASIC METABOLIC [facility] Order PANEL (non-fasting[facility] B[facility] (SST-SERUM) SP Lab Results: +/- [...] Reference Range Comment January 18, 2022 07:58 [place] [facility] PTH INTACT Specimen Typ e: SERUM AM [place] [facility] No comment enter ed. Ordering Provid er: MELANIA RAMOS Report Released Date/Time: Nov 08, 2021 04:09 PM Reporting Lab: [place] [facility] [facility] [address] [facility] [address] Performing Lab: [place] [facility] [place] [facility] [address] [facility] [address] PTH INTACT 122.6 H 10-65 January 18, 2022 07:58 [place] [facility] MAGNESIUM Specimen Typ e: SERUM AM [place] [facility] No comment enter ed. Ordering Provid er: MELANIA RAMOS Report Released Date/Time: Nov 08, 2021 04:09 PM Reporting Lab: [place] [facility] [place] [facility] [address] [facility] [address] Performing Lab: [place] [facility] [place] [facility] [address] [facility] [address] MAGNESIUM 2.0 1.6-2.6 January 18, 2022 07:58 [facility] [place] CALCIUM S pecimen Type: SERUM AM [facility] No comment enter ed. Ordering Provid er: MELANIA RAMOS Report Released Date/Time: Nov 08, 2021 04:09 PM Reporting Lab: [place] [facility] [place] [facility] [address] [facility] [address] Performing Lab: [facility] [place] [facility] [address] [facility] [address] CALCIUM 9.9 8.5-10.2 January 18, 2022 07:58 AM [facility] [place] [facility] Specimen Type: [facility] No comment enter ed. Ordering Provid er: MELANIA RAMOS Report Released Date/Time: Nov 08, 2021 04:09 PM Reporting Lab: [facility] [place] [facility] [address] [facility] [address] Performing Lab: [facility] [place] [facility] [address] [facility] [address] PO4 3.5 2.5-5.0 January 18, 2022 [facility] ALKALINE PHOSPHATASE Specimen T ype: SERUM 07:58 AM [facility] [facility] No comment enter ed. Ordering Provid er: MELANIA RAMOS Report Released Date/Time: Nov 08, 2021 04:09 PM Reporting Lab: [facility] [place] [facility] [address] [facility] [address] Performing Lab: [facility] [place] [facility] [address] [facility] [address] ALKALINE PHOSPHATASE 83 40-150 January 18, 2022 [facility] BASIC METABOLIC PANEL Specimen Type: SERUM 07:58 AM [place] [facility] (non-fasting) No comment enter ed. Ordering Provid er: MELANIA RAMOS Report Released Date/Time: Nov 08, 2021 04:09 PM Reporting Lab: [facility] [place] [facility] [address] [facility] [address] Performing Lab: [facility] [place] [facility] [address] [facility] [address] UREA NITROGEN 22 7-25 GLUCOSE 203 H 65-100 SODIUM 138 135-145 POTASSIUM 4.4 3.5-5.0 CHLORIDE 106 100-110 CO2 25 20-30 CREATININE, Serum 1.68 H 0.50-1.40 eGFR(CKD-EPI 2020) 43 L >60 January 18, 2022 [facility] HEMOGLOBIN A1C PANEL Specimen T ype: BLOOD 07:58 AM [place] [facility] Comment: Testin g performed by NG[facility] certified [...] Dec 29, 2021 01:34 PM Reporting Lab: [facility] [place] [facility] [address] [facility] [address] Performing Lab: [facility] [place] [facility] [address] [facility] [address] HEMOGLOBIN A1C 10.5 H 4.0-5.6 January 18, 2022 [facility] MICROALBUMIN CREATININE Specime n Type: URINE 07:58 AM [place] [facility] RATIO PANEL No comment enter ed. Ordering Provid er: DELMER STALLINGS Report Released Date/Time: Dec 29, 2021 01:34 PM Reporting Lab: [facility] [place] [facility] [address] [facility] [address] Performing Lab: [facility] [place] [facility] [address] [facility] [address] MICROALBUMIN/CREATININE RATIO 308.5 H 0-29.9 MICROALBUMIN,QUANTITATIVE 20.7 RR U NAVAIL CREATININE URINE 67.10 January 18, 2022 07:58 [facility] LIPID PANEL FASTING Specimen Type: SERUM AM [place] [facility] No comment enter ed. Ordering Provid er: DELMER STALLINGS Report Released Date/Time: Dec 29, 2021 01:34 PM Reporting Lab: [facility] [place] [facility] [address] [facility] [address] Performing Lab: [facility] [place] [facility] [address] [facility] [address] CHOLESTEROL 192 <7-199 TRIGLYCERIDE 180 H 0-150 LDL calculated 118 0-129 CHOL/HDL 5.1 HDL CHOLESTEROL 38 L 40-60 January 18, 2022 [facility] BASIC METABOLIC PANEL Specimen Type: SERUM 07:58 AM [place] [facility] (fasting) No comment enter ed. Ordering Provid er: STALLINGS,DELMER Report Released Date/Time: Dec 29, 2021 01:34 PM Reporting Lab: [facility] [address] [facility] [address] Performing Lab: [facility] [address] [facility] [address] UREA NITROGEN 22 7-25 GLUCOSE 207 H [...] 03, 2019 10:28 AM [place]-TOBACCO NEVER USED [facility] Tobacco Use History This section includes a history of the smoking, or tobacco- related health factors, that were collected on or before the date of the Encounter. The data comes from the [place] facility where the Encounter took place. Date/Time Smoking Status/Tobacco Use Comment Debbie thao Jan 13, 2018 09:49 AM LIFETIME NON-TOBACCO USER [place] Jan 04, 2017 10:17 AM LIFETIME NON-TOBACCO USER [place] Dec 23, 2015 08:49 AM LIFETIME NON-TOBACCO USER [place] Nov 27, 2005 02:55 PM LIFETIME NON-TOBACCO USER [place] patient reportssmoking only dafne pickett January 22, 2003 10:42 AM LIFETIME NON-SMOKER [facility] Aug 18, 2001 01:54 PM LIFETIME NON-TOBACCO USER [place] pt states he has never smoked May 14, 2001 02:23 PM LIFETIME NON-SMOKER [facility] Encounter Notes: All associated encounter notes This section contains the clinical notes associated to the Encounter. Date/Time Encounter Note(s) Provider Source Dec 21, 2021 03:30 PM DIABETOLOGY EDUCATION NOTE: RADHA ALEJANDRE [place] LOCAL TITLE: DIABETES EDU FOLLOW UP STANDARD TITLE: DIABETOLOGY EDUCATION NOTE DATE OF NOTE: DEC 21, 2021@15:30 ENTRY DATE: DEC 22, 2021@10:21:23 AUTHOR: RADHA ALEJANDRE EXP COSIGNER: URGENCY: STATUS: COMPLETED DIABETES EDU FOLLOW UP Has ADDENDA Demographics: Patient Name: JESSICA BERGER : Aug Age: 71 Sex: MALE Race: WHITE REASON FOR VISIT: follow up for [place] with type 2 diabetes and i s [...] 180 2.Applying the sensor. CODE: G02 SN: [id number] EXP.DATE: 06/15/22 3.Set up alarms: Low @ [...] access and his phone does have the RoboEd olvin available. They wanted to wait on trying to use an olvin for now. His phone has a large cover on it which may prevent him from being successful in checkin g his glucose readings. given the following instructions: --Call [employer] dedicated phone number if sensor falls off before 14 days for replacement of sensor of if sensor has to be removed for a MRI, CT, xray, diathermy, or if reader has error messages or any other operating concerns regarding using the sensor * [place] Dedicated Hotline toll free number is: (117-EQ-QDZVT) *The business hours of the hotline will [...]
--- OUTSIDE RECORDS SUMMARY | 2022-08-25 08:32 | XMS_ITS | Encounter Summary ---
:1950 Author Organization Department of [facility] rs Address [address] [place] [address] Support Name Relationship Address Phone CELINE THANIA Botello Unavailable [address] [place] [address] AMELIA BERGER Unavailable [address] [place] [address] Insurance Providers: All historical and current Section [...] AARP INS PRESCRIPT MEDIC Sep 16, PDPIND [id number] [phone] YESSI BERGERZhane PATIENT ION ARE D 2017 [id number] [facility] Jul 17, MEDICAI [id number] DAYAMI BERGER PATIENT EALTH 2014 D [id number] 900 IS [place] MEDICARE MEDICARE PART Sep 16, PART A [id number] [phone] Rosmery BERGER PATIENT (WNR) (M) A 2010A 00 IS MEDICARE MEDICARE PART Sep 16, PART B [id number] [phone] Rosmery BERGER PATIENT (WNR) (M) B 2010 00 IS MEDICARE MEDICARE PART Sep 16, PART A [id number] Romsery BERGER PATIENT (WNR) (M) A 2010 [id number] 2 IS MEDICARE MEDICARE PART Sep 16, PART B [id number] Rosmery BERGER PATIENT (WNR) (M) B 2010 XH29 2 IS Selected Encounter This section includes the information on record at [place] for the Encounter. Date/Time Encounter Type Encounter Description Reason Provider Source IHE Encounter Template Text not used by [place]
--- OUTSIDE RECORDS SUMMARY | 2022-08-25 08:33 | XMS_ITS ---
:1950 Author Organization Department of [facility] rs Address [address] [place] [address] Support Name Relationship Address Phone THANIA BERGER Unavailable [address] [place] [address] [place] [address] CELINEAMELIA Unavailable [address] [place] [address] Insurance Providers: All historical and current Section [...] AARP INS PRESCRIPT MEDIC Sep 16, PDPIND [id number] [phone] CELINE DAYAMI PATIENT ION ARE D 2017 [id number] IS MEDICAID MEDICAID [facility] Jul 17, MEDICAI [id number] [phone] DAYAMI BERGER PATIENT EALTH 2014 D [id number] IS STAND CHRISTOPHER MEDICARE MEDICARE PART Sep 16, PART A [id number] [phone] Rosmery BERGER PATIENT (WNR) (M) A 2010 00 IS MEDICARE MEDICARE PART Sep 16, PART B [id number] [phone] Rosmery BERGER PATIENT (WNR) (M) B 2010A 00 IS MEDICARE MEDICARE PART Sep 16, PART A [id number] Rosmery BERGER PATIENT (WNR) (M) A 2010 XH29 2 IS MEDICARE MEDICARE PART Sep 16, PART B [id number] Rosmery BERGER PATIENT (WNR) (M) B 2010 XH29 2 IS Selected Encounter This section includes the information on record at [place] for the Encounter. Date/Time Encounter Type Encounter Description Reason Provider Source January 22, 2022 08:53 Outpatient Encounter ADMIN PAT ACTIVTIES AM (MASNONCT) IHE Encounter Template Text not used by PA Plan of Treatment: Future Appointments (+ 6 months) and Future Tests (+/- 45 days) The Plan of Treatment section includes future care activities for the patient from all [facility] This section includes future appointments and future orders which are active, pending orscheduled.Future Appointments This section includes appointments that were scheduled to occur 6 months from the date of the Encounter, up to a maximum of 20 appointments. The data comes from all PA treatment [facility]. Appointment Date/Time Appointment Type Appointment Facili ty Name January 23, 2022 03:00 PM [facility] Feb 14, 2022 08:00 AM [facility] Mar 06, 2022 03:00 PM [facility] Mar 09, 2022 12:00 PM [facility] Mar 23, 2022 01:30 PM [facility] Mar 26, 2022 04:00 PM [facility] Apr 02, 2022 04:00 PM [facility] Apr 17, 2022 03:15 PM [facility] May 14, 2022 02:15 PM [facility] Jun 14, 2022 01:30 PM [facility] Jul 04, 2022 03:00 PM [facility] Jul 04, 2022 03:15 PM [facility] Jul 05, 2022 01:30 PM [facility] Active, Pending, and [...] the Encounter. The data comes from all [facility]. Test Date/Time Test Type Test Details Facility Name Dec 30, 2021 12:00 Laboratory - [facility]IC [facility]ABOLIC [facility]EL [facility] Chemistry Order (non-fasting) BLOOD [facility] [...] Lab: [facility] [place] [facility] [address] [facility] [address] Performing Lab: [facility] [facility] [address] [facility] [address] PO4 3.5 2.5-5.0 January 18, 2022 07:58 [facility] PTH INTACT Specimen Typ e: SERUM AM [facility] No comment enter ed. Ordering Provid er: MELANIA RAMOS Report Released Date/Time: Nov 08, 2021 04:09 PM Reporting Lab: [facility] [facility] [address] [facility] [address] Performing Lab: [facility] [facility] [address] [facility] [address] PTH INTACT 122.6 H 10-65 January 18, 2022 07:58 [facility] MAGNESIUM Specimen Typ e: SERUM AM [facility] No comment enter ed. Ordering Provid er: MELANIA RAMOS Report Released Date/Time: Nov 08, 2021 04:09 PM Reporting Lab: [facility] [place] [facility] [address] [facility] [address] Performing Lab: [facility] [place] [facility] [address] [facility] [address] MAGNESIUM 2.0 1.6-2.6 January 18, 2022 07:58 [facility] [place] CALCIUM S pecimen Type: SERUM AM HCS No comment enter ed. Ordering Provid er: MELANIA RAMOS Report Released Date/Time: Nov 08, 2021 04:09 PM Reporting Lab: [facility] [place] [facility] [address] [facility] [address] Performing Lab: [facility] [place] [facility] [address] [facility] [address] CALCIUM 9.9 8.5-10.2 January 18, 2022 [facility] ALKALINE PHOSPHATASE Specimen T ype: SERUM 07:58 AM [facility] No comment enter ed. Ordering Provid er: MELANIA RAMOS Report Released Date/Time: Nov 08, 2021 04:09 PM Reporting Lab: [facility] [place] [facility] [address] [facility] [address] Performing Lab: [facility] [place] [facility] [address] [facility] [address] ALKALINE PHOSPHATASE 83 40-150 January 18, 2022 [facility] BASIC METABOLIC PANEL Specimen Type: SERUM 07:58 AM [facility] (non-fasting) No comment enter ed. Ordering Provid er: MELANIA ARMOS Report Released Date/Time: Nov 08, 2021 04:09 PM Reporting Lab: [facility] [place] [facility] [address] [facility] [address] Performing Lab: [facility] [place] [facility] [address] [facility] [address] UREA NITROGEN 22 7-25 GLUCOSE 203 H [...] Dec 29, 2021 01:34 PM Reporting Lab: [facility] [place] [facility] [address] [facility] [address] Performing Lab: [facility] [place] [facility] [address] [facility] [address] HEMOGLOBIN A1C 10.5 H 4.0-5.6 January 18, 2022 [facility] MICROALBUMIN CREATININE Specime n Type: URINE 07:58 AM [place] [facility] RATIO PANEL No comment enter ed. Ordering Provid er: DELMER STALLINGS Report Released Date/Time: Dec 29, 2021 01:34 PM Reporting Lab: [facility] [place] [facility] [address] [facility] [address] Performing Lab: [facility] [place] [facility] [address] [facility] [address] MICROALBUMIN/CREATININE RATIO 308.5 H 0-29.9 MICROALBUMIN,QUANTITATIVE 20.7 RR U NAVAIL CREATININE URINE 67.10 January 18, 2022 [facility] W[facility]N BASIC METABOLIC PANEL Specimen Type: SERUM 07:58 AM [place] [facility] (fasting) No comment enter ed. Ordering Provid er: DELMER STALLINGS Report Released Date/Time: Dec 29, 2021 01:34 PM Reporting Lab: [facility] [place] [facility] [address] [facility] [address] Performing Lab: [facility]N [place] [facility] [address] [facility] [address] UREA NITROGEN 22 7-25 GLUCOSE 207 H 65-100 SODIUM 138 135-145 POTASSIUM 4.5 3.5-5.0 CHLORIDE 105 100-110 CO2 27 20-30 CREATININE, Serum 1.73 H 0.50-1.40 eGFR(CKD-EPI 2020) 42 L >60 January 18, 2022 07:58 [facility] LIPID PANEL FASTING Specimen Type: SERUM AM [place] [facility] No comment enter ed. Ordering Provid er: DELMER STALLINGS Report Released Date/Time: Dec 29, 2021 01:34 PM Reporting Lab: [facility]TR [facility] [address] [facility] [address] Performing Lab: [facility] [address] [facility] [address] CHOLESTEROL 192 <7-199 TRIGLYCERIDE 180 H 0-150 [...] 11, 2021 01:18 PM VA-TOBACCO NEVER USED PA C NTRL WSTRN [facility] Encounter Notes: All associated encounter notes This section contains the clinical notes associated to the Encounter. Date/Time Encounter Note(s) Provider Source January 22, 2022 08:53 TELEPHONE ENCOUNTER NOTE: LAZARO DEAL CNTRL WSTRN [facility] TITLE: VISN 1 CCC MED RENEWAL [place] [facility] STANDARD TITLE: TELEPHONE ENCOUNTER NOTE DATE OF NOTE: JANUARY 22, 2022@08:53:20 ENTRY DATE: JANUARY 22, 2022@08:55:50 AUTHOR: LAZARO DEAL EXP COSIGNER: URGENCY: STATUS: COMPLETED The patient, JESSICA BERGER ([id number]) Phone: called the call center. Contact Type of call: PHARMACY. Caller Response: ADM CALL RESOLVED Caller Area: [facility] Provider Info: [facility] ([id number]) PACT: SO PACT 4 (Focus: Primary Care Only) Primary Care Provider: AMBIKA KNIGHT PHONE:[phone] Sergeant At Arms: RONAN FOX Clinical Associate: JOEY RODRIGUEZ PHON E:[phone] Kitchen And Bath Designer: RONAN STEVENS PHONE:[phone] Clinical POC: Sergeant At Arms LIBRADO FOX Administrative POC: Kitchen And Bath Designer RONAN STEVENS PHONE:[phone] Author: LAZARO DEAL Comments: Please renew and send via mail INSULIN/GLARGINE Evaluation/Management Code: HC PRO PHONE CALL [phone]- [phone] MIN ([phone]). Starting at: 01/22/2022 @ 8:53:20 AM Ending at: 01/22/2022 @ 8:54:29 AM Length: 1 minutes. Chief Complaint: Not applicable to call. Class Code: Other specified counseling. Patient's Email Address: /jamal/ LAZARO dai 1 AMSA Signed: 01/22/2022 08:55 Receipt Acknowledged By: * AWAITING SIGNATURE * AMBIKA KNIGHT * AWAITING SIGNATURE * RONAN FOX
--- OUTSIDE RECORDS SUMMARY | 2022-08-25 08:33 | XMS_ITS | Encounter Summary ---
:1950 Author Organization Department of [facility] rs Address [address] [place] [address] Support Name Relationship Address Phone CELINE THANIA Botello Unavailable [address] [place] [address] AMELIA BERGER Unavailable [address] [place] [address] Insurance Providers: All historical and current Section [...] AARP INS PRESCRIPT MEDIC Sep 16, PDPIND [id number] [phone] YESSI BERGERZhane PATIENT ION ARE D 2017 251 9 IS MEDICAID MEDICAID [facility] Jul 17, MEDICAI [id number] [phone] DAYAMI BERGER PATIENT EALTH 2014 D [id number] 900 IS STAND [place]RISTOPHER MEDICARE MEDICARE PART Sep 16, PART A [id number] [phone] Rosmery BERGER PATIENT (WNR) (M) A 2010A 00 IS MEDICARE MEDICARE PART Sep 16, PART B [id number] [phone] Rosmery BERGER PATIENT (WNR) (M) B 2010 00 IS MEDICARE MEDICARE PART Sep 16, PART A [id number] Rosmery BERGER PATIENT (WNR) (M) A 2010 XH29 2 IS MEDICARE MEDICARE PART Sep 16, PART B [id number] Rosmery BERGER PATIENT (WNR) (M) B 2010 XH29 2 IS Selected Encounter This section includes the information on record at [place] for the Encounter. Date/Time Encounter Type Encounter Description Reason Provider Source IHE Encounter Template Text not used by [place]
--- OUTSIDE RECORDS SUMMARY | 2022-08-25 08:34 | XMS_ITS | Encounter Summary ---
:1950 Author Organization Department of [facility] rs Address [address] [place] [address] Support Name Relationship Address Phone THANIA BERGER Rosmery [place] [address] CELINEAMELIA Unavailable [address] [place] [address] Insurance Providers: All historical and current Section [...] AARP INS PRESCRIPT MEDIC Sep 16, PDPIND [id number] YESSI BERGERZhane PATIENT ION ARE D 2017 251 9 IS MEDICAID MEDICAID [facility] Jul 17, MEDICAI [id number] YESSI BERGERZhane PATIENT EALTH 2014 D [id number] 900 IS STAND [place]RISTOPHER MEDICARE MEDICARE PART Sep 16, PART A [id number] [phone] Rosmery BERGER PATIENT (WNR) (M) A 2010 00 IS MEDICARE MEDICARE PART Sep 16, PART B [id number] [phone] Rosmery BERGER PATIENT (WNR) (M) B 2010 00 IS MEDICARE MEDICARE PART Sep 16, PART A [id number] Rosmery BERGER PATIENT (WNR) (M) A 2010 XH29 2 IS MEDICARE MEDICARE PART Sep 16, PART B [id number] Rosmery BERGER PATIENT (WNR) (M) B 2010 XH29 2 IS Selected Encounter This section includes the information on record at [place] for the Encounter. Date/Time Encounter Type Encounter Reason Provider Source Description January 23, 2022 Outpatient TELEPHONE/MEDICI ICD-10-CM E11.8 DELMER STALLINGS 03:00 PM Encounter NE Type 2 diabetes mellitus with unspecified complications with Provider Comments: Type II diabetes mellitus ([facility] [id number]) IHE Encounter Template Text not used by [place] Assessments - Encounter Diagnoses This section includes the primary and secondary diagnoses documented for the Encounter. Date/Time Primary/Secondary Diagnosis Name Provider Source Diagnosis January 23, 2022 PRIMARY Type 2 diabetes BRUNO[facility] [place] CNT WST RN 03:00 PM mellitus with [place] [facility] unspecified complications January 23, 2022 SECONDARY Chronic kidney [facility]00 PM disease, [facility] unspecified January 23, 2022 SECONDARY [facility]ential [facility] 03:00 PM (primary) [facility] hypertension January 23, 2022 SECONDARY Hyperlipidemia, [facility] 03[facility]00 PM unspecified [facility] January 23, 2022 SECONDARY Overweight [facility] 03[facility] PM [facility] [facility] Plan of Treatment: Future Appointments (+ 6 months) and Future Tests (+/- 45 days) The Plan of Treatment section includes future care activities for the patient from all [place] treatmentnavos healthities. This section includes future appointments and future orders which are active, pending orscheduled.Future Appointments This section includes appointments that were scheduled to occur 6 months from the date of the Encounter, up to a maximum of 20 appointments. The data comes from all [place] treatment facilities. Appointment Date/Time Appointment Type Appointment Facili ty Name Feb 14, 2022 08:00 AM [facility]L [facility] [place] [facility] Mar 06, 2022 03:00 PM [facility] Mar 09, 2022 12:00 PM [facility] Mar 23, 2022 01:30 PM [facility] Mar 26, 2022 04:00 PM [facility] Apr 02, 2022 04:00 PM [facility] Apr 17, 2022 03:15 PM [facility] May 14, 2022 02:15 PM [facility] Jun 14, 2022 01:30 PM [facility]L [place] [facility] Jul 04, 2022 03:00 PM AMBULATORY - MEDICINE [place] [facility]L [place] [facility] Jul 04, 2022 03:15 PM AMBULATORY - MEDICINE [place] [facility] [place] [facility] Jul 05, 2022 01:30 PM AMBULATORY - MEDICINE [place] Active, Pending, and Scheduled Orders This section includes a listing of several types of active, pending, and scheduled orders, including clinic medications orders, diagnostic test orders, procedure orders and consult orders; where the start date of the order is 45 days before the date of the Encounter or 45 days after the date of the Encounter. The data comes from all [place] treatment facilities. Test Date/Time Test Type Test Details Facility Name Dec 30, 2021 12:00 Laboratory - BASIC METABOLIC PANEL [place] CNTR L WSTRN AM Chemistry Order (non-fasting) BLOOD [facility] (SST-SERUM) SP Dec 30, 2021 12:00 Laboratory - CBC BLOOD (LAV-BLOOD) [place] CNTR L WSTRN AM Chemistry Order SP [facility] [facility] February 05, 2022 12:00 Laboratory - MICROALBUMIN CREATININE [facility] CN TRL WSTRN AM Chemistry Order RATIO PANEL [facility] ([facility] SP Lab Results: +/- 30 days of the encounter This section includes the Chemistry and Hematology Lab Results on record with [place] for the patient. Radiology Reports and Pathology Reports are provided separately, in subsequent sections.Lab Results This section contains the Chemistry/Hematology Results that were resulted 30 days before or 30 daysafter the date of the Encounter. Date/Time Source Result Type Result - Unit Interpretation Reference Range Comment January 18, 2022 07:58 AM [place] CNTRL W[facility] [place] PO4 Specimen Type: [facility]UM [facility] No comment enter ed. Ordering Provid er: MELANIA RAMOS Report Released Date/Time: Nov 08, 2021 04:09 PM Reporting Lab: [facility] [place] [facility] [address] [facility] [address] Performing Lab: [facility] [place] [facility] [address] [facility] [address] PO4 3.5 2.5-5.0 January 18, 2022 07:58 [facility] PTH INTACT Specimen Typ e: SERUM AM [place] [facility] No comment enter ed. Ordering Provid er: MELANIA RAMOS Report Released Date/Time: Nov 08, 2021 04:09 PM Reporting Lab: [facility] [place] [facility] [address] [facility] [address] Performing Lab: [facility] [place] [facility] [address] [facility] [address] PTH INTACT 122.6 H 10-65 January 18, 2022 07:58 [facility] MAGNESIUM Specimen Typ e: SERUM AM [place] [facility] No comment enter ed. Ordering Provid er: MELANIA RAMOS Report Released Date/Time: Nov 08, 2021 04:09 PM Reporting Lab: [facility] [place] [facility] [address] [facility] [address] Performing Lab: [facility] [place] [facility] [address] [facility] [address] MAGNESIUM 2.0 1.6-2.6 January 18, 2022 07:58 [facility] [place] CALCIUM S pecimen Type: SERUM AM HCS No comment enter ed. Ordering Provid er: MELANIA RAMOS Report Released Date/Time: Nov 08, 2021 04:09 PM Reporting Lab: [facility] [place] [facility] [address] [facility] [address] Performing Lab: [facility] [place] [facility] [address] [facility] [address] CALCIUM 9.9 8.5-10.2 January 18, 2022 [facility] ALKALINE PHOSPHATASE Specimen T ype: SERUM 07:58 AM [place] [facility] No comment enter ed. Ordering Provid er: MELANIA RAMOS Report Released Date/Time: Nov 08, 2021 04:09 PM Reporting Lab: [facility] [place] [facility] [address] [facility] [address] Performing Lab: [facility] [place] [facility] [address] [facility] [address] ALKALINE PHOSPHATASE 83 40-150 January 18, 2022 [facility] BASIC METABOLIC PANEL Specimen Type: SERUM 07:58 AM [place] [facility] (non-fasting) No comment enter ed. Ordering Provid er: MELANIA RAMOS Report Released Date/Time: Nov 08, 2021 04:09 PM Reporting Lab: [facility] [place] [facility] [address] [facility] [address] Performing Lab: [facility] [place] [facility] [address] [facility] [address] UREA NITROGEN 22 7-25 GLUCOSE 203 H 65-100 SODIUM 138 135-145 POTASSIUM 4.4 3.5-5.0 CHLORIDE 106 100-110 CO2 25 20-30 CREATININE, Serum 1.68 H 0.50-1.40 eGFR(CKD-EPI 2020) 43 L >60 January 18, 2022 [facility] HEMOGLOBIN A1C PANEL Specimen T ype: BLOOD 07:58 AM [place] [facility] Comment: Testin g performed by [...] Dec 29, 2021 01:34 PM Reporting Lab: [facility] [place] [facility] [address] [facility] [address] Performing Lab: [facility]N [place] [facility] [address] [facility] [address] HEMOGLOBIN A1C 10.5 H 4.0-5.6 January 18, 2022 [facility] WSTRN MICROALBUMIN CREATININE Specime n Type: URINE 07:58 AM [place] [facility] RATIO PANEL No comment enter ed. Ordering Provid er: DELMER STALLINGS Report Released Date/Time: Dec 29, 2021 01:34 PM Reporting Lab: [facility] [place] [facility] [address] [facility] [address] Performing Lab: [facility] [place] [facility] [address] [facility] [address] MICROALBUMIN/CREATININE RATIO 308.5 H 0-29.9 MICROALBUMIN,QUANTITATIVE 20.7 RR U NAVAIL CREATININE URINE 67.10 January 18, 2022 [place] CNTRL WSTRN BASIC METABOLIC PANEL Specimen Type: SERUM 07:58 AM [place] [facility] (fasting) No comment enter ed. Ordering Provid er: DELMER STALLINGS Report Released Date/Time: Dec 29, 2021 01:34 PM Reporting Lab: [place] [facility]L [facility] [place] [facility] [address] [facility] [address] Performing Lab: [place] [facility]L [facility] [place] [facility] [address] [facility] [address] UREA NITROGEN 22 7-25 GLUCOSE 207 H 65-100 SODIUM 138 135-145 POTASSIUM 4.5 3.5-5.0 CHLORIDE 105 100-110 CO2 27 20-30 CREATININE, Serum 1.73 H 0.50-1.40 eGFR(CKD-EPI 2020) 42 L >60 January 18, 2022 07:58 [place] CNTRL WSTRN LIPID PANEL FASTING Specimen Type: SERUM AM [place] [facility] No comment enter ed. Ordering Provid er: DELMER STALLINGS Report Released Date/Time: Dec 29, 2021 01:34 PM Reporting Lab: [place] [facility] [place] [facility] [address] [facility] [address] Performing Lab: [place] [facility] [place] [facility] [address] [facility] [address] CHOLESTEROL 192 <7-199 TRIGLYCERIDE 180 H 0-150 LDL calculated 118 0-129 CHOL/HDL 5.1 HDL CHOLESTEROL 38 L 40-60 Social History: Smoking Status (Most current) and Tobacco Use (All prior to encounter date) This section includes the most current, and the historical, smoking and tobacco-related health factors from the [place] facility where the Encounter took place.Current Smoking Status This section includes the most current smoking, or tobacco-related health factor, from the [place] facility where the Encounter took place. Date/Time Current Smoking Status Comment Facility May 11, 2021 01:18 PM VA-TOBACCO NEVER USED SD C NTRL WSTRN [place] [facility] Encounter Notes: All associated encounter notes This section contains the clinical notes associated to the Encounter. Date/Time Encounter Note(s) Provider Source January 23, 2022 03:03 PM PHYSICIAN NOTE: DELMER STALLINGS [place] CNTRL W STRN LOCAL TITLE: MD BLOSSOM Toro [facility] STANDARD TITLE: PHYSICIAN NOTE DATE [...] peanuts 10. UTI 11. Claudication (SNOMED CT 718559658) 12. Elevated Prostate Specific antigen [psa] 13. Overweight (SNOMED CT 692375062) 14. Low Back Pain * 15. 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 Impotence of organic origin 17. Colorectal Cancer Screening Results Document ed and Reviewed (PV) 18. Simple upper Gastrointestinal Endoscopy 19. Postsurgical Percutaneous Transluminal Coron chet Angioplasty Status 20. Postsurgical Status of Cataract Extraction 21. Diabetes mellitus (SNOMED CT 25803091) 22. MRSA SKIN INFECTION 23. Cocaine abuse, continuous use 24. GERD * 25. Corneal Abrasion 26. Hypertension (SNOMED CT 09100078) 27. Diabetic Neuropathies 28. Onychomycosis * 29. Cataract, PSC/Post Subcapsular 30. Cataract, Cortical (Senile) 31. Background diabetic retinopathy 32. Cyst, ganglion 33. Cervical Radiculopathy 34. Shoulder Pain 35. Hyperlipidemia (SNOMED CT 18084371) 36. Old Myocardial Infarction 37. Depressive Disorder [...] [place] (local) an d dispensed from another [place] or [facility] facility (remote) as well as [...] patient. TC to eye clinic Dr. Sánchez [phone]. Requested note based on this exam as to whether he would agree with treatment with Ozempic. /keshawn STALLINGS MD STAFF PHYSICIAN Signed: 01/30/2022 10:17
--- OUTSIDE RECORDS SUMMARY | 2022-08-25 08:34 | XMS_ITS | Encounter Summary ---
:1950 Author Organization Department of [facility] rs Address [address] [place] [address] Support Name Relationship Address Phone CELINEGONZÁLEZTHANIA Rosmery Unavailable [address] [place] [address] [place] [address] CELINEAMELIA Unavailable [address] [place] [address] Insurance Providers: All historical and current Section [...] AARP INS PRESCRIPT MEDIC Sep 16, PDPIND [id number] [phone] YESSI BERGERZhane PATIENT ION ARE D 2017 251 [id number] IS MEDICAID MEDICAID [facility] Jul 17, MEDICAI [id number] DAYAMI BERGER PATIENT EALTH 2014 D [id number] IS [place] MEDICARE MEDICARE PART Sep 16, PART A [id number] [phone] Rosmery BERGER PATIENT (WNR) (M) A 2010 00 IS MEDICARE MEDICARE PART Sep 16, PART B [id number] [phone] Rosmery BERGER PATIENT (WNR) (M) B 2010 00 IS MEDICARE MEDICARE PART Sep 16, PART A [id number] Rosmery BERGER PATIENT (WNR) (M) A 2010 XH29 2 IS MEDICARE MEDICARE PART Sep 16, PART B [id number] Rosmery BERGER PATIENT (WNR) (M) B 2010 XH29 2 IS Selected Encounter This section includes the information on record at [place] for the Encounter. Date/Time Encounter Type Encounter Description Reason Provider Source Oct 23, 2021 12:00 Outpatient Encounter EVENT (HISTORICAL) AM IHE Encounter Template Text not used by [place] Plan of Treatment: Future Appointments (+ 6 months) and Future Tests (+/- 45 days) The Plan of Treatment section includes future care activities for the [facility] This section includes future appointments and future orders which are active, pending orscheduled.Future Appointments This section includes appointments that were scheduled to occur 6 months from the date of the Encounter, up to a maximum of 20 appointments. The data comes from all [place] treatment facilities. Appointment Date/Time Appointment Type Appointment Facili ty Name Oct 25, 2021 12:00 PM [facility] [place] [facility] Oct 26, 2021 10:00 [facility] [place] [facility] Nov 01, 2021 03:00 [facility] Nov 10, 2021 10:00 AM [facility] Nov 13, 2021 09:00 AM [facility] Nov 16, 2021 02:30 PM [facility] Nov 16, 2021 03:00 PM [facility] Dec 21, 2021 03:30 PM [facility] Jan 05, 2022 03:30 PM [facility] [place] [facility] January 23, 2022 03:00 PM [facility] [place] [facility] Feb 14, 2022 08:00 AM [facility] [place] [facility] Mar 06, 2022 03:00 PM [facility] Mar 09, 2022 12:00 PM [facility] Mar 23, 2022 01:30 PM [facility] Mar 26, 2022 04:00 PM [facility] Apr 02, 2022 04:00 PM [facility] Apr 17, 2022 03:15 PM [facility] Lab Results: +/- 30 days of the encounter This section includes the Chemistry and Hematology Lab Results on record with [place] for the patient. Radiology Reports and Pathology [...] Oct 25, 2021 12:46 PM Reporting Lab: [place] [facility] [place] [facility] [address] [facility] [address] Performing Lab: [place] [facility] [place] [facility] [address] [facility] [address] UREA NITROGEN 27 H 7-25 GLUCOSE 349 H 65-100 SODIUM 135 135-145 POTASSIUM 4.4 3.5-5.0 CHLORIDE 100 100-110 CO2 26 20-30 CREATININE, Serum 1.89 H 0.50-1.40 eGFR (IDMS) 36 L >60 Oct 18, 2021 10:04 AM [facility] PSA Specimen Type: SERUM Comment: *BASIC METABOLIC PANEL (fasting) Not Performed: Oct 18, 2021@10:05 b *CAMERA ENGINEER Reason: DUP ORDER Ordering Provid er: AMBIKA KNIGHT Report Released Date/Time: May 11, 2021 01:37 PM Reporting Lab: [place] [facility] [place] [facility] [address] [facility] [address] Performing Lab: [place] [facility] [place] [facility] [address] [facility] [address] PSA 1.68 0.00-4.00 Oct 18, 2021 10:04 AM [facility] TSH Specimen Type: SERUM Comment: *BASIC METABOLIC PANEL (fasting) Not Performed: Oct 18, 2021@10:05 b *CAMERA ENGINEER Reason: DUP ORDER Ordering Provid er: AMBIKA KNIGHT Report Released Date/Time: May 11, 2021 01:37 PM Reporting Lab: [place] [facility] [place] [facility] [address] [facility] [address] Performing Lab: [place] [facility] [place] [facility] [address] [facility] [address] TSH 2.37 0.35-5.00 Oct 18, 2021 [place] [facility] HEMOGLOBIN A1C PANEL Specimen T ype: BLOOD 10:04 AM [facility] Comment: Testin g performed by [...] 2021 04:34 PM Reporting Lab: [facility] [place] [facility] [address] [facility] [address] Performing Lab: [facility] [address] [facility] [address] HEMOGLOBIN A1C 9.7 H 4.0-5.6 Oct 18, 2021 10:04 [facility] LIPID PANEL FASTING Specimen Type: SERUM AM [facility] No comment enter ed. Ordering Provid er: DELMER STALLINGS Report Released Date/Time: Jul 24, 2021 04:34 PM Reporting [facility] [place] [facility] [address] [facility] [address] [facility]: [facility] [address] [facility] [address] CHOLESTEROL 176 <7-199 TRIGLYCERIDE 179 H 0-150 LDL calculated 108 0-129 CHOL/HDL 5.5 HDL CHOLESTEROL 32 L 40-60 Oct 18, 2021 10:04 [facility] ALBUMIN S pecimen Type: SERUM AM [facility] No comment enter ed. Ordering Provid er: MELANIA RAMOS Report Released Date/Time: Jun 28, 2021 09:09 AM Reporting Lab: [facility] [place] [facility] [address] [facility] [address] Per[facility]: [facility] [address] [facility] [address] ALBUMIN 4.0 3.5-5.0 Oct 18, 2021 [facility] VITAMIN D (25-[place]) Specimen Type : SERUM 10:04 AM [place] [facility] No comment enter ed. Ordering Provid er: MELANIA RAMOS Report Released Date/Time: Jun 28, 2021 09:09 AM Reporting Lab: [place] [facility] [place] [facility] [address] [facility] [address] Performing Lab: [facility] [place] [facility] [address] [facility] [address] VITAMIN D (25-[place]) 37 20-50 Oct 18, 2021 [facility] BASIC METABOLIC PANEL Specimen Type: SERUM 10:04 AM [place] [facility] (non-fasting) No comment enter ed. Ordering Provid er: MELANIA RAMOS Report Released Date/Time: Jun 28, 2021 09:09 AM Reporting Lab: [place] [facility] [place] [facility] [address] [facility] [address] Performing Lab: [place] [facility] [place] [facility] [address] [facility] [address] UREA NITROGEN 21 7-25 GLUCOSE 302 H 65-100 SODIUM 136 135-145 POTASSIUM 4.7 3.5-5.0 CHLORIDE 103 100-110 CO2 24 20-30 CREATININE, Serum 1.74 H 0.50-1.40 eGFR (IDMS) 39 L >60 Oct 18, 2021 10:04 AM [facility] [place] CBC Specimen Type: BLOOD HCS No comment enter ed. Ordering Provid er: MELANIA RAMOS Report Released Date/Time: Jun 28, 2021 09:09 AM Reporting Lab: [place] [facility] [place] [facility] [address] [facility] [address] Performing Lab: [place] [facility] [place] [facility] [address] [facility] [address] WBC 7.69 4.50-11.00 RBC 5.16 4.23-5.66 HGB 12.9 12.8-17 HCT 40.7 39.2-50.4 MCV 78.9 L 82-99 MCHC 31.7 30.8-35.1 PLT 320 140-360 RDW-CV 17.8 H 12.0-16.0 MCH 25.0 L 26.2-32.6 Social History: Smoking Status (Most current) and Tobacco Use (All prior to encounter date) This section includes the most current, and the historical, smoking and tobacco-related health factors from the [place] facility where the Encounter took place.Current Smoking Status This section includes the most current smoking, or tobacco-related health factor, from the [place] facility where the Encounter took place. Date/Time Current Smoking Status Comment Facility May 11, 2021 01:18 PM VA-TOBACCO NEVER USED [place] C NTRL W[facility] Encounter Notes: All associated encounter notes This section contains the clinical notes associated to the Encounter. Date/Time Encounter Note(s) Provider Source Oct 23, 2021 12:00 AM NONVA NOTE: [place] CN[facility] STR[facility] LOCAL TITLE: NON-VA OUTPATIENT NOTES [facility] STANDARD TITLE: NONVA NOTE DATE OF NOTE: OCT 23, 2021 ENTRY DATE: FEBRUARY 07 022@16:11:45 AUTHOR: JAYJAY VALENTE EXP COSIGNER: URGENCY: STATUS: COMPLETED VistA Imaging - Scanned Document SCANNED DOCUMENT SIGNATURE NOT REQUIRED Electronically Filed: 02/07/2022 by: JAYJAY VALENTE LPN LICENSED PRACTICAL NURSE
--- OUTSIDE RECORDS SUMMARY | 2022-08-25 08:34 | XMS_ITS | Encounter Summary ---
:1950 Author Organization Department of [facility] rs Address [address] [place] [address] Support Name Relationship Address Phone THNAIA BERGER Unavailable [address] [place] [address] [place] [address] AMELIA BERGER Unavailable [address] [place] [address] Insurance Providers: All historical and current Section [...] AARP INS PRESCRIPT MEDIC Sep 16, PDPIND [id number] [phone] YESSI BERGERZhane PATIENT ION ARE D 2017 251 9 IS MEDICAID MEDICAID [facility] Jul 17, MEDICAI [id number] DAYAMI BERGER PATIENT EALTH 2014 D [id number] 900 [place] MEDICARE MEDICARE PART Sep 16, PART A [id number] [id number] Rosmery BERGER PATIENT (WNR) (M) A 2010 00 IS MEDICARE MEDICARE PART Sep 16, PART B [id number] [phone] Rosmery BERGER PATIENT (WNR) (M) B 2010A 00 IS MEDICARE MEDICARE PART Sep 16, PART A [id number] Rosmery BERGER PATIENT (WNR) (M) A 2010 XH29 2 IS MEDICARE MEDICARE PART Sep 16, PART B [id number] Rosmery BERGER PATIENT (WNR) (M) B 2010 XH29 2 IS Selected Encounter This section includes the information on record at [place] for the Encounter. Date/Time Encounter Type Encounter Reason Provider Source Description January 26, 2022 [facility] ICD-10-CM E11.9 ISABEL OCAMPO IST 07:31 AM ASSMT&MGMT 5-10 Type 2 diabetes INE F mellitus without complications with Provider Comments: Diabetes mellitus ([facility] [id number]) IHE Encounter Template Text not used by [place] Assessments - Encounter Diagnoses This section includes the primary and secondary diagnoses documented for the Encounter. Date/Time Primary/Secondary Diagnosis Name Provider Source Diagnosis January 26, 2022 PRIMARY Type 2 diabetes [facility] 07:33 AM mellitus without NE F [...] ty Name Feb 14, 2022 08:00 [facility] Mar 06, 2022 03:[address] [facility] Mar 09, 2022 12:[address] [facility] Mar 23, 2022 01:[address] [facility] Mar 26, 2022 04:[address] [facility] Apr 02, 2022 04:[address] [facility] Apr 17, 2022 03:[address] [facility] May 14, 2022 02:[address] [facility] Jun 14, 2022 01:30 PM [facility] Jul 04, 2022 03:00 [facility] Jul 04, 2022 03:15 PM [facility] Jul 05, 2022 01:[address] [facility] Active, Pending, and Scheduled Orders This section [...] Range Comment January 18, 2022 07:58 AM [place] [facility] [place] [facility]4 Specimen Type: SERUM HCS No comment enter ed. Ordering Provid er: MELANIA RAMOS Report Released Date/Time: Nov 08, 2021 04:09 PM Reporting Lab: [facility] [place] [facility] [address] [facility] [address] Performing Lab: [place] [facility] [place] [facility] [address] [facility] [address] PO4 3.5 2.5-5.0 January 18, 2022 07:58 [facility] MAGNESIUM Specimen Typ e: SERUM AM [place] [facility] No comment enter ed. Ordering Provid er: MELANIA RAMOS Report Released Date/Time: Nov 08, 2021 04:09 PM Reporting Lab: [facility] [place] [facility] [address] [facility] [address] Performing Lab: [facility] [place] [facility] [address] [facility] [address] MAGNESIUM 2.0 1.6-2.6 January 18, 2022 07:58 [facility] PTH INTACT Specimen Typ e: SERUM AM [place] [facility] No comment enter ed. Ordering Provid er: MELANIA RAMOS Report Released Date/Time: Nov 08, 2021 04:09 PM Reporting Lab: [facility] [place] [facility] [address] [facility] [address] Performing Lab: [facility] [place] [facility] [address] [facility] [address] PTH INTACT 122.6 H 10-65 January 18, 2022 07:58 [facility] [place] CALCIUM S pecimen Type: SERUM AM HCS No comment enter ed. Ordering Provid er: MELANIA RAMOS Report Released Date/Time: Nov 08, 2021 04:09 PM Reporting Lab: [facility] [place] [facility] [address] [facility] [address] Performing Lab: [facility] [place] [facility] [address] [facility] [address] CALCIUM 9.9 8.5-10.2 January 18, 2022 [facility] ALKALINE PHOSPHATASE Specimen T ype: SERUM 07:58 AM [place] [facility] No comment enter ed. Ordering Provid er: MELANIA RAMOS Report Released Date/Time: Nov 08, 2021 04:09 PM Reporting Lab: [facility] [place] [facility] [address] [facility] [address] Performing Lab: [facility] [place] [facility] [address] [facility] [address] ALKALINE PHOSPHATASE 83 40-150 January 18, 2022 [facility] BASIC METABOLIC PANEL Specimen Type: SERUM 07:58 AM [place] [facility] (non-fasting) No comment enter ed. Ordering Provid er: MELANIA RAMOS Report Released Date/Time: Nov 08, 2021 04:09 PM Reporting Lab: [facility] [place] [facility] [address] [facility] [address] Performing Lab: [facility] [place] [facility] [address] [facility] [address] UREA NITROGEN 22 7-25 GLUCOSE 203 H 65-100 SODIUM 138 135-145 POTASSIUM 4.4 3.5-5.0 CHLORIDE 106 100-110 CO2 25 20-30 CREATININE, Serum 1.68 H 0.50-1.40 eGFR(CKD-EPI 2020) 43 L >60 January 18, 2022 [facility] HEMOGLOBIN A1C PANEL Specimen T ype: BLOOD 07:58 AM [place] [facility] Comment: Testin g performed by NGSP certified [...] Dec 29, 2021 01:34 PM Reporting Lab: [facility] [facility] [address] [facility] [address] Performing Lab: [facility]N [place] [facility] [address] [facility] [address] HEMOGLOBIN A1C 10.5 H 4.0-5.6 January 18, 2022 [facility] MICROALBUMIN CREATININE Specime n Type: URINE 07:58 AM [place] [facility] RATIO PANEL No comment enter ed. Ordering Provid er: DELMER STALLINGS Report Released Date/Time: Dec 29, 2021 01:34 PM Reporting [facility] [place] [facility] [address] [facility] [address] Performing Lab: [place] CNTR [place] [facility] [address] [facility] [address] MICROALBUMIN/CREATININE RATIO 308.5 H 0-29.9 MICROALBUMIN,QUANTITATIVE 20.7 RR U NAVAIL CREATININE URINE 67.10 January 18, 2022 07:58 [facility] LIPID PANEL FASTING Specimen Type: SERUM AM [place] [facility] No comment enter ed. Ordering Provid er: DELMER STALLINGS Report Released Date/Time: Dec 29, 2021 01:34 PM Reporting [facility] [place] [facility] [address] [facility] [address] Per[facility]: [facility] [place] [facility] [address] [facility] [address] CHOLESTEROL 192 <7-199 TRIGLYCERIDE 180 H 0-150 LDL calculated 118 0-129 CHOL/HDL 5.1 HDL CHOLESTEROL 38 L 40-60 January 18, 2022 [facility] BASIC METABOLIC PANEL Specimen Type: SERUM 07:58 AM [facility] (fasting) No comment enter ed. Ordering Provid er: DELMER STALLINGS Report Released Date/Time: Dec 29, 2021 01:34 PM Reporting Lab: [facility] [address] [facility] [address] Performing Lab: [facility] [address] [facility] [address] UREA NITROGEN 22 7-25 GLUCOSE 207 H 65-100 SODIUM 138 135-145 POTASSIUM 4.5 3.5-5.0 CHLORIDE 105 100-110 CO2 27 20-30 CREATININE, Serum 1.73 H 0.50-1.40 eGFR(CKD-EPI 2020) 42 L >60 Encounter Notes: All associated encounter notes This section contains the clinical notes associated to the Encounter. Date/Time Encounter Note(s) Provider Source January 26, 2022 07:31 AM MEDICATION MGT CONSULT: DALE OCAMPO [facility] LOCAL TITLE: CONSULT REPORT/NON FORMULARY PADR ([id number]) [...] relevant to this request: Patient approved for [employer], reporting se nsor fell off despite being counseled on proper application. The request is approved - No formulary-preferred alternative Time Spent: 5 min /jamal/ DALE OCAMPO, PharmD, [facility] Clinical Customer Relationship Specialist Signed: 01/26/2022 07:33
--- OUTSIDE RECORDS SUMMARY | 2022-08-25 08:34 | XMS_ITS | Encounter Summary ---
:1950 Author Organization Department of [facility] rs Address [address] [place] [address] Support Name Relationship Address Phone THANIA BERGER Rosmery [place] [address] AMELIA BERGER Unavailable [address] [place] [address] Insurance Providers: All historical and current Section [...] AARP INS PRESCRIPT MEDIC Sep 16, PDPIND [id number] [phone] YESSI BERGERZhane PATIENT ION ARE D 2017 251 9 IS MEDICAID MEDICAID [facility] Jul 17, MEDICAI [id number] [phone] YESSI BERGERZhane PATIENT EALTH 2014 D [id number] 900 IS [place] MEDICARE MEDICARE PART Sep 16, PART A [id number] [phone] Rosmery BERGER PATIENT (WNR) (M) A 2010 00 IS MEDICARE MEDICARE PART Sep 16, PART B [id number] [phone] Rosmery BERGER PATIENT (WNR) (M) B 2010 00 IS MEDICARE MEDICARE PART Sep 16, PART A [id number] Rosmery BERGER PATIENT (WNR) (M) A 2010 [id number] 2 IS MEDICARE MEDICARE PART Sep 16, PART B [id number] Rosmery BERGER PATIENT (WNR) (M) B 2010 [...] 14, 2022 PRIMARY Chronic kidney LISA RAMOS [place] [facility] TRN 08:00 AM disease, stage 3a [place] [facility] Feb 14, 2022 SECONDARY Anemia in chronic [place] RAM[place] [facility] 08:00 AM kidney disease [place] Feb 14, 2022 SECONDARY Hyperlipidemia, LISA RAMOS [place] [facility] 08:00 AM unspecified [place] [facility] Feb 14, 2022 SECONDARY Hypotension, LISA RAMOS [place] [facility] 08:00 AM unspecified E[place] [facility] Feb 14, 2022 SECONDARY Obesity, LISA RAMOS [place] [facility] 08:00 AM unspecified EY [place] [facility] Feb 14, 2022 SECONDARY Type 2 diabetes LISA RAMOS [place] [facility] 08:00 AM mellitus w [place]Y [place] [facility] diabetic chronic kidney disease Plan of Treatment: Future Appointments (+ 6 months) and Future Tests (+/- 45 days) The Plan of Treatment section includes future care activities for the patient from all [place] [facility]. This section includes future appointments and future orders which are active, pending orscheduled.Future Appointments This section includes appointments that were scheduled to occur 6 months from the date of the Encounter, up to a maximum of 20 appointments. The data comes from all [place] treatment facilities. Appointment Date/Time Appointment Type Appointment Facili ty Name Mar 06, 2022 03:00 PM [facility]ORY - [facility] [place] Mar 09, 2022 12:00 PM AMBULATORY [facility] Mar 23, 2022 01:30 PM [facility]ULATORY [facility] Mar 26, 2022 04:00 PM [facility]BULATORY [facility] Apr 02, 2022 04:00 PM [facility]BULATORY [facility] Apr 17, 2022 03:15 PM [facility] May 14, 2022 02:15 PM [facility]ORY [facility] [place] Jun 14, 2022 01:30 PM AM[place]ULATORY - MEDICINE [place] [facility] [facility] Jul 04, 2022 03:00 PM AMBULATORY - MEDICINE [place] [facility] [facility] Jul 04, 2022 03:15 PM AM[place]ULATORY - MEDIC[place] [facility] [facility] Jul 05, 2022 01:30 PM [facility] [place] Active, Pending, and Scheduled Orders This section includes a listing of several types of active, pending, and scheduled orders, including clinic medications orders, diagnostic test orders, procedure orders and consult orders; where the start date of the order is 45 days before the date of the Encounter or 45 days after the date of the Encounter. The data comes from all [place] treatment facilities. Test Date/Time Test Type Test Details Facility Name February 05, 2022 12:00 Laboratory - MICROALBUMIN CREATININE [place] [facility] AM Chemistry Order RATIO [...] [place] [facility] [address] [facility] [address] Performing Lab: [facility] [place] [facility] [address] [facility] [address] PO4 3.5 2.5-5.0 January 18, 2022 07:58 [facility] PTH INTACT Specimen Typ e: SERUM AM [place] [facility] No comment enter ed. Ordering Provid er: MELANIA RAMOS Report Released Date/Time: Nov 08, 2021 04:09 PM Reporting Lab: [place] [facility] [place] [facility] [address] [facility] [address] Performing Lab: [facility] [place] [facility] [address] [facility] [address] PTH INTACT 122.6 H 10-65 January 18, 2022 07:58 [facility] MAGNESIUM Specimen Typ e: SERUM AM [place] [facility] No comment enter ed. Ordering Provid er: MELANIA RAMOS Report Released Date/Time: Nov 08, 2021 04:09 PM Reporting Lab: [facility] [place] [facility] [address] [facility] [address] Performing Lab: [facility] [place] [facility] [address] [facility] [address] MAGNESIUM 2.0 1.6-2.6 January 18, 2022 07:58 [facility] [place] CALCIUM S pecimen Type: SERUM AM [facility] No comment enter ed. Ordering Provid er: MELANIA RAMOS Report Released Date/Time: Nov 08, 2021 04:09 PM Reporting Lab: [facility] [place] [facility] [address] [facility] [address] Performing Lab: [facility] [place] [facility] [address] [facility] [address] CALCIUM 9.9 8.5-10.2 January 18, 2022 [facility] ALKALINE PHOSPHATASE Specimen T ype: SERUM 07:58 AM [place] [facility] No comment enter ed. Ordering Provid er: MELANIA RAMOS Report Released Date/Time: Nov 08, 2021 04:09 PM Reporting Lab: [facility] [place] [facility] [address] [facility] [address] Performing Lab: [facility] [place] [facility] [address] [facility] [address] ALKALINE PHOSPHATASE 83 40-150 January 18, 2022 [facility] BASIC METABOLIC PANEL Specimen Type: SERUM 07:58 AM [place] [facility] (non-fasting) No comment enter ed. Ordering Provid er: MELANIA RAMOS Report Released Date/Time: Nov 08, 2021 04:09 PM Reporting Lab: [facility] [place] [facility] [address] [facility] [address] Performing Lab[facility] [place] [facility] [address] [facility] [address] UREA NITROGEN 22 7-25 GLUCOSE 203 H 65-100 SODIUM 138 135-145 POTASSIUM 4.4 3.5-5.0 CHLORIDE 106 100-110 CO2 25 20-30 CREATININE, Serum 1.68 H 0.50-1.40 eGFR(CKD-EPI 2020) 43 L >60 January 18, 2022 [facility] HEMOGLOBIN A1C PANEL Specimen T ype: BLOOD 07:58 AM [place] [facility] Comment: Testin g performed by NGSP [...] 29, 2021 01:34 PM Reporting Lab[facility] [place] [facility] [address] [facility] [address] Performing Lab: [facility] [place] [facility] [address] [facility] [address] HEMOGLOBIN A1C 10.5 H 4.0-5.6 January 18, 2022 [place] [facility] MICROALBUMIN CREATININE Specime n Type: URINE 07:58 AM [place] [facility] RATIO PANEL No comment enter ed. Ordering Provid er: DELMER STALLINGS Report Released Date/Time: Dec 29, 2021 01:34 PM Reporting Lab: [facility] [place] [facility] [address] [facility] [address] Performing Lab: [place] [facility] [facility] [address] [facility] [address] MICROALBUMIN/CREATININE RATIO 308.5 H 0-29.9 MICROALBUMIN,QUANTITATIVE 20.7 RR U NAVAIL CREATININE URINE 67.10 January 18, 2022 07:58 [place] CNT WSTRN LIPID PANEL FASTING Specimen Type: SERUM AM [place] [facility] No comment enter ed. Ordering Provid er: DELMER STALLINGS Report Released Date/Time: Dec 29, 2021 01:34 PM Reporting Lab: [place] [facility] [place] [facility] [address] [facility] [address] Performing Lab: [place] [facility] [place] [facility] [address] [facility] [address] CHOLESTEROL 192 <7-199 TRIGLYCERIDE 180 H 0-150 LDL calculated 118 0-129 CHOL/HDL 5.1 HDL CHOLESTEROL 38 L 40-60 January 18, 2022 [place] [facility] BASIC METABOLIC PANEL Specimen Type: SERUM 07:58 AM [place] [facility] (fasting) No comment enter ed. Ordering Provid er: DELMER STALLINGS Report Released Date/Time: Dec 29, 2021 01:34 PM Reporting Lab: [place] [facility] [place] [facility] [address] [facility] [address] Performing Lab: [place] [facility] [facility] [address] [facility] [address] UREA NITROGEN 22 7-25 GLUCOSE 207 H [...] NEVER USED [facility] [place] [facility] Encounter Notes: All associated encounter notes This section contains the clinical notes associated to the Encounter. Date/Time Encounter Note(s) Provider Source Feb 14, 2022 07:43 NEPHROLOGY E & M NOTE: MELANIA RAMOS [place] [facility] LOCAL TITLE: NEPHROLOGY NOTE [place] [facility] STANDARD TITLE: NEPHROLOGY E & M [...] 1.68. Because of his low GFR, the [facility]'s Metformin has been stopped. The patient will return in 4 months obt [facility] labs for that visit. #2. 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 #4. Hyperlipidemia: The patient's lipid studies this [...] or non-VA provider. /jamal/ MELANIA RAMOS M.D. STRUCTURAL METAL WORKER ENDORSEMENT CLERK Signed: 02/14/2022 08:27 February 06, 2022 12:01 TELEPHONE ENCOUNTER NOTE: ROCKY MCCAULEY CNTRL WSTRN PM LOCAL TITLE: TELEPHONE NOTE/SPECIALTY CLINIC [facility] STANDARD TITLE: TELEPHONE ENCOUNTER NOTE DATE OF NOTE: FEBRUARY 06, 2022@12:01 ENTRY DATE: FEBRUARY 06, 2022@12:01:07 AUTHOR: ROCKY MCCAULEY EXP COSIGNER: URGENCY: STATUS: COMPLETED Called and confirmed with his Nephrology tel-x visit on 02-14-22 @0800. /jamal/ ROCKY Mccauley LPN LICENSED PRACTICAL NURSE Signed: 02/06/2022 12:01
--- OUTSIDE RECORDS SUMMARY | 2022-08-25 08:35 | XMS_ITS | Encounter Summary ---
:1950 Author Organization Department of [facility] rs Address [address] [place] [address] Support Name Relationship Address Phone THANIA BERGER Rosmery Unavailable [address] [place] [address] [place] [address] AMELIA BERGER Unavailable [address] [place] [address] Insurance Providers: All historical and current Section [...] AARP INS PRESCRIPT MEDIC Sep 16, PDPIND [id number] [phone] YESSI BERGERZhane PATIENT ION ARE D 2017 251 9 IS MEDICAID MEDICAID [facility] Jul 17, MEDICAI [id number] [phone] DAYAMI BERGER PATIENT EALTH 2014 D [id number] 900 IS [place] MEDICARE MEDICARE PART Sep 16, PART A [id number] [phone] Rosmery BERGER PATIENT (WNR) (M) A 2010A 00 IS MEDICARE MEDICARE PART Sep 16, PART B [id number] [phone] Rosmery BERGER PATIENT (WNR) (M) B 2010A 00 IS MEDICARE MEDICARE PART Sep 16, PART A [id number] Rosmery BERGER PATIENT (WNR) (M) A 2010 XH29 2 IS MEDICARE MEDICARE PART Sep 16, PART B [id number] Rosmery BERGER PATIENT (WNR) (M) B 2010 XH29 2 IS Selected Encounter This section includes the information on record at [place] for the Encounter. Date/Time Encounter Type Encounter Reason Provider Source Description Mar 09, 2022 POSTOP FOLLOW-UP PODIATRY ICD-10-CM GOMEZ SANTORO 12:00 PM VISIT S90.412S Abrasion, left great toe, sequela with Provider Comments: Abrasion, left Great Toe, Sequela IHE Encounter Template Text not used by [place] Assessments - Encounter Diagnoses This section includes the primary and secondary diagnoses documented for the Encounter. Date/Time Primary/Secondary Diagnosis Name Provider Source Diagnosis Mar 09, 2022 PRIMARY Abrasion, GOMEZ Caruso [place] 01:30 PM great toe, sequela Mar 09, 2022 SECONDARY Type 2 diabetes w GOMEZ SANTORO [place] 01:30 PM diabetic peripheral angiopath w/o gangrene Plan of Treatment: Future Appointments (+ 6 months) and Future Tests (+/- 45 days) The Plan of Treatment section includes future care activities for the patient from all [place] [facility] This section includes future appointments and future orders which are active, pending orscheduled.Future Appointments This section includes appointments that were scheduled to occur 6 months from the date of the Encounter, up to a maximum of 20 appointments. The data comes from all [place] treatment [facility]. Appointment Date/Time Appointment Type Appointment Facili ty Name Mar 23, 2022 01:30 PM [facility] Mar 26, 2022 04:00 PM [facility] Apr 02, 2022 04:00 PM [facility] Apr 17, 2022 03:15 PM [facility] May 14, 2022 02:15 PM [facility] Jun 14, 2022 01:30 PM [facility] Jul 04, 2022 03:00 PM [facility] Jul 04, 2022 03:15 PM [facility] Jul 05, 2022 01:30 PM [facility] Sep 05, 2022 03:30 PM [facility] Active, Pending, and Scheduled Orders This section includes a listing of several types of active, pending, and scheduled orders, including clinic medications orders, diagnostic test orders, procedure orders and consult orders; where the start date of the order is 45 days before the date of the Encounter or 45 days after the date of the Encounter. The data comes from all [place] treatment facilities. Test Date/Time Test Type Test Details Facility Name February 05, 2022 12:00 Laboratory - MICROALBUMIN CREATININE [place] CN TRL WSTRN AM Chemistry Order RATIO [...] smoking, or tobacco-related health factor, from the [place] facility where the Encounter took place. Date/Time Current Smoking Status Comment Facility February 03, 2019 10:28 AM NE-TOBACCO NEVER USED [facility] Tobacco Use History This section includes a history of the smoking, or tobacco- related health factors, that were collected on or before the date of the Encounter. The data comes from the [facility] where the Encounter took place. Date/Time Smoking Status/Tobacco Use Comment [facility] Jan 13, 2018 09:49 AM LIFETIME NON-TOBACCO USER [place] Jan 04, 2017 10:17 AM LIFETIME NON-TOBACCO USER [place] Dec 23, 2015 08:49 AM LIFETIME NON-TOBACCO USER [place] Nov 27, 2005 02:55 PM LIFETIME NON-TOBACCO USER [place] patient reportssmoking only crac zaira pickett January 22, 2003 10:42 AM LIFETIME NON-SMOKER [facility] Aug 18, 2001 01:54 PM LIFETIME NON-TOBACCO USER [place] pt states he has never smoked May 14, 2001 02:23 PM LIFETIME NON-SMOKER [facility] Encounter Notes: All associated encounter notes This section contains the clinical notes associated to the Encounter. Date/Time Encounter Note(s) Provider Source Mar 09, 2022 01:23 PM PODIATRY NOTE: GOMEZ SANTORO [facility] TITLE: PODIATRY NOTE STANDARD TITLE: PODIATRY NOTE [...] BOTH COVID VACCINE DOSES + BOOSTER AT [facility] *PERFORMED AT CHECK-IN AND REVIEWED BY [...] 3 DAYS AGO /jamal/ GOMEZ SANTORO DPM GOGGLES ASSEMBLER Signed: 03/09/2022 13:30
--- OUTSIDE RECORDS SUMMARY | 2022-08-25 08:35 | XMS_ITS | Encounter Summary ---
:1950 Author Organization Department of [facility] rs Address [address] [place] [address] Support Name Relationship Address Phone THANIA BERGER Rosmery Unavailable [address] [place] [address] [place] [address] AMELIA BERGER Unavailable [address] [place] [address] Insurance Providers: All historical and current Section [...] AARP INS PRESCRIPT MEDIC Sep 16, PDPIND [id number] [phone] YESSI BERGERZhane PATIENT ION ARE D 2017 251 9 IS MEDICAID MEDICAID [facility] Jul 17, MEDICAI [id number] [phone] DAYAMI BERGER PATIENT EALTH 2014 D [id number] 900 IS [place] MEDICARE MEDICARE PART Sep 16, PART A [id number] [phone] Rosmery BERGER PATIENT (WNR) (M) A 2010A 00 IS MEDICARE MEDICARE PART Sep 16, PART B [id number] [phone] Rosmery BERGER PATIENT (WNR) (M) B 2010A 00 IS MEDICARE MEDICARE PART Sep 16, PART A [id number] Rosmery BERGER PATIENT (WNR) (M) A 2010 XH29 2 IS MEDICARE MEDICARE PART Sep 16, PART B [id number] Rosmery BERGER PATIENT (WNR) (M) B 2010 [...] Diagnosis Mar 26, 2022 PRIMARY Cutaneous GOMEZ SANTROO [place] 04:15 PM abscess of left foot Plan of Treatment: Future Appointments (+ 6 months) and Future Tests (+/- 45 days) The Plan of Treatment section includes future care activities for the patient from all [place] [facility]. This section includes future appointments and future orders which are active, pending orscheduled.Future Appointments This section includes appointments that were scheduled to occur 6 months from the date of the Encounter, up to a maximum of 20 appointments. The data comes from all [facility]. Appointment Date/Time Appointment Type Appointment Facili ty Name Apr 02, 2022 04:00 PM [facility] Apr 17, 2022 03:15 PM [facility] May 14, 2022 02:15 PM [facility] Jun 14, 2022 01:30 PM AMBULATORY MEDICINE [facility] Jul 04, 2022 03:00 PM AMBULATORY MEDICINE [facility] Jul 04, 2022 03:[address] [facility] MEDICINE [facility] Jul 05, 2022 01:30 PM [facility] Sep 05, 2022 03:30 PM [facility] Active, Pending, and Scheduled Orders This section includes a listing of several types of active, pending, and scheduled orders, including clinic medications orders, diagnostic test orders, procedure orders and consult orders; where the start date of the order is 45 days before the date of the Encounter or 45 days after the date of the Encounter. The data comes from all [facility]. Test Date/Time Test Type Test Details Facility Name Apr 28, 2022 12:00 [facility]LOOD (SST-SERUM) SP [facility] Apr 28, 2022 12:00 Laboratory - BASIC METABOLIC PANEL [facility] WSTRN AM Chemistry Order (fasting) BLOOD [place] [facility] (SST-SERUM) SP Apr 28, 2022 12:00 Laboratory - MICROALBUMIN CREATININE [place] CN TRL WSTR[place] AM Chemistry Order RATIO PANEL URINE [place] [facility] S ([facility]) Apr 28, 2022 12:00 Laboratory - HEMOGLOBIN A1C PANEL [place] CNTRL W[facility] AM Chemistry Order BLOOD (LAV-BLOOD) [...] Comment Facility February 03, 2019 10:28 AM DC-TOBACCO NEVER USED [facility] Tobacco Use History This section includes a history of the smoking, or tobacco- related health factors, that were collected on or before the date of the Encounter. The data comes from the [facility] where the Encounter took place. Date/Time Smoking Status/Tobacco Use Comment [facility] Jan 13, 2018 09:49 AM LIFETIME NON-TOBACCO USER [place] Jan 04, 2017 10:17 AM LIFETIME NON-TOBACCO USER [place] Dec 23, 2015 08:49 AM LIFETIME NON-TOBACCO USER [place] Nov 27, 2005 02:55 PM LIFETIME NON-TOBACCO USER [place] patient reportssmoking only dafne pickett January 22, 2003 10:42 AM LIFETIME NON-SMOKER [facility] Aug 18, 2001 01:54 PM LIFETIME NON-TOBACCO USER [place] pt states he has never smoked May 14, 2001 02:23 PM LIFETIME NON-SMOKER [facility] Encounter Notes: All associated encounter notes [...] BOTH COVID VACCINE DOSES + BOOSTER AT [facility] *PERFORMED AT CHECK-IN AND REVIEWED [...] 13 DAYS AGO /jamal/ GOMEZ SANTORO DPM LIFE SKILLS CONSULTANT Signed: 03/26/2022 16:15
--- OUTSIDE RECORDS SUMMARY | 2022-08-25 08:35 | XMS_ITS | Encounter Summary ---
:1950 Author Organization Department of [facility] rs Address [address] [place] [address] Support Name Relationship Address Phone THANIA BERGER Rosmery Unavailable [address] [place] [address] [place] [address] AMELIA BERGER Unavailable [address] [place] [address] Insurance Providers: All historical and current Section [...] AARP INS PRESCRIPT MEDIC Sep 16, PDPIND [id number] [phone] YESSI BERGERZhane PATIENT ION ARE D 2017 251 9 IS MEDICAID MEDICAID [facility] Jul 17, MEDICAI [id number] [phone] DAYAMI BERGER PATIENT EALTH 2014 D [id number] 900 IS [place] MEDICARE MEDICARE PART Sep 16, PART A [id number] [phone] Rosmery BERGER PATIENT (WNR) (M) A 2010 00 IS MEDICARE MEDICARE PART Sep 16, PART B [id number] [phone] Rosmery BERGER PATIENT (WNR) (M) B 2010A 00 IS MEDICARE MEDICARE PART Sep 16, PART A [id number] Rosmery BERGER PATIENT (WNR) (M) A 2010 XH29 2 IS MEDICARE MEDICARE PART Sep 16, PART B [id number] Rosmery BERGER PATIENT (WNR) (M) B 2010 [...] Encounter Template Text not used by [place] Assessments - Encounter Diagnoses This section includes [...] activities for the patient from all [place] [facility]. This section includes future appointments and future orders which are active, pending orscheduled.Future Appointments This section includes appointments that were scheduled to occur 6 months from the date of the Encounter, up to a maximum of 20 appointments. The data comes from all [facility]. Appointment Date/Time Appointment Type Appointment Facili ty Name Mar 26, 2022 04:00 PM [facility] Apr 02, 2022 04:00 PM [facility] Apr 17, 2022 03:15 PM [facility] May 14, 2022 02:15 PM [facility] Jun 14, 2022 01:30 PM [facility] Jul 04, 2022 03:00 PM [facility] Jul 04, 2022 03:15 PM [facility] Jul 05, 2022 01:30 PM [facility] Sep 05, 2022 03:30 PM [facility] Active, Pending, and Scheduled Orders This section includes a listing of several types of active, pending, and scheduled orders, including clinic medications orders, diagnostic test orders, procedure orders and consult orders; where the start date of the order is 45 days before the date of the Encounter or 45 days after the date of the Encounter. The data comes from all [facility]. Test Date/Time Test Type Test Details Facility Name Apr 28, 2022 12:00 Laboratory - LIPID PANEL FASTING IN CNTRL WSTRN AM Chemistry Order BLOOD (SST-SERUM) SP [facility] Apr 28, 2022 12:00 Laboratory - MICROALBUMIN CREATININE IN CN TRL WSTRN AM Chemistry Order RATIO PANEL URINE [place] [facility] S ([facility]) SP Apr 28, 2022 12:00 Laboratory - BASIC METABOLIC PANEL IN CNTR L WSTRN AM Chemistry Order (fasting) BLOOD [place] [facility] (SST-SERUM) SP Apr 28, 2022 12:00 Laboratory - HEMOGLOBIN A1C PANEL IN CNTRL WSTRN AM Chemistry Order BLOOD (LAV-BLOOD) [...] Comment Facility February 03, 2019 10:28 AM IN-TOBACCO NEVER USED [facility] Tobacco Use History This section includes a history of the smoking, or tobacco- related health factors, that were collected on or before the date of the Encounter. The data comes from the [place] facility where the Encounter took place. Date/Time Smoking Status/Tobacco Use Comment [facility] Jan 13, 2018 09:49 AM LIFETIME NON-TOBACCO USER [place] Jan 04, 2017 10:17 AM LIFETIME NON-TOBACCO USER [place] Dec 23, 2015 08:49 AM LIFETIME NON-TOBACCO USER [place] Nov 27, 2005 02:55 PM LIFETIME NON-TOBACCO USER [place] patient reportssmoking only dafne pickett January 22, 2003 10:42 AM LIFETIME NON-SMOKER [facility] Aug 18, 2001 01:54 PM LIFETIME NON-TOBACCO USER [place] pt states he has never smoked May 14, 2001 02:23 PM LIFETIME NON-SMOKER [facility] Encounter Notes: All associated encounter [...] BOTH COVID VACCINE DOSES + BOOSTER AT [facility] *PERFORMED AT CHECK-IN AND REVIEWED BY DR. SANTORO PRIOR TO TREATMENT* LAST SEEN: 03/09/2022 S: Pt. is a 71 yo alert W[facility] MALE who is se en for EMERGENCY [...] 10 DAYS AGO /jamal/ GOMEZ SANTORO DPM BRICKLAYER APPRENTICE Signed: 03/23/2022 14:35
--- OUTSIDE RECORDS SUMMARY | 2022-08-25 08:35 | XMS_ITS | Encounter Summary ---
:1950 Author Organization Department of [facility] rs Address [address] [place] [id number] Support Name Relationship Address Phone THANIA BERGER Unavailable [address] [place] [address] [place] [address] AMELIA BERGER Unavailable [address] [place] [address] Insurance Providers: All historical and current Section [...] AARP INS PRESCRIPT MEDIC Sep 16, PDPIND [id number] [phone] YESSI BERGERZhane PATIENT ION ARE D 2017 [id number] IS MEDICAID MEDICAID [facility] Jul 17, MEDICAI [id number] DAYAMI BERGER PATIENT EALTH 2014 D [id number] 900 IS [place]AND [place]RISTOPHER MEDICARE MEDICARE PART Sep 16, PART A [id number] [phone] Rosmery BERGER PATIENT (WNR) (M) A 2010 00 IS MEDICARE MEDICARE PART Sep 16, PART B [id number] [id number] Rosmery BERGER PATIENT (WNR) (M) B 2010A 00 IS MEDICARE MEDICARE PART Sep 16, PART A [id number] Rosmery BERGER PATIENT (WNR) (M) A 2010 [id number] 2 IS MEDICARE MEDICARE PART Sep 16, PART B [id number] Rosmery BERGER PATIENT (WNR) (M) B 2010 [...] activities for the patient from all [facility] This section includes future appointments and future orders which are active, pending orscheduled.Future Appointments This section includes appointments that were scheduled to occur 6 months from the date of the Encounter, up to a maximum of 20 appointments. The data comes from all SD treatment facilities. Appointment Date/Time Appointment Type Appointment Facili ty Name Mar 09, 2022 12:00 PM [facility] Mar 23, 2022 01:30 PM [facility] Mar 26, 2022 04:00 PM [facility] Apr 02, 2022 04:00 PM [facility] Apr 17, 2022 03:15 PM [facility] May 14, 2022 02:15 PM [facility] Jun 14, 2022 01:30 PM [facility] Jul 04, 2022 03:00 PM [facility] Jul 04, 2022 03:15 PM [facility] Jul 05, 2022 01:30 PM [facility] Sep 05, 2022 03:30 PM [facility] Active, Pending, and Scheduled Orders [...] the Encounter. The data comes from the SD facility where the Encounter took place. Date/Time Smoking Status/Tobacco Use Comment [facility] Jan 13, 2018 09:49 AM LIFETIME NON-TOBACCO USER [place] Jan 04, 2017 10:17 AM LIFETIME NON-TOBACCO USER [place] Dec 23, 2015 08:49 AM LIFETIME NON-TOBACCO USER [place] Nov 27, 2005 02:55 PM LIFETIME NON-TOBACCO USER [place] patient reportssmoking only crac zaira pickett January 22, 2003 10:42 AM LIFETIME NON-SMOKER [facility] Aug 18, 2001 01:54 PM LIFETIME NON-TOBACCO USER [place] pt states he has never smoked May 14, 2001 02:23 PM LIFETIME NON-SMOKER [facility] Encounter Notes: All associated encounter notes [...] BOTH COVID VACCINE DOSES + BOOSTER AT [facility] *PERFORMED AT CHECK-IN AND REVIEWED BY [...] COMPLETE LIST NEEDED. /jamal/ GOMEZ SANTORO DPM ZOO DIRECTOR Signed: 03/06/2022 13:56 03/06/2022 ADDENDUM STATUS: COMPLETED [...] BE SEENAS AN OVERBOOK ON SATURDAY AT [facility] AND WILL THEN DETERMINE WHETHER OR NOT WOUND CARE IS REQUIRED. ALSO DEBRIDED NAILS 1-2-3-4-5 MARVA LEMUS FOR HIS REGULAR CARE APPOINTMENT /es/ GOMEZ SANTORO DPM ZOO DIRECTOR Signed: 03/06/2022 16:30
--- OUTSIDE RECORDS SUMMARY | 2022-08-25 08:36 | XMS_ITS | Encounter Summary ---
:1950 Author Organization Department of [facility] rs Address [address] [place] [address] Support Name Relationship Address Phone THANIA BERGER Unavailable [address] [place] [address] [place] [address] AMELIA BERGER Unavailable [address] [place] [address] Insurance Providers: All historical and current Section [...] AARP INS PRESCRIPT MEDIC Sep 16, PDPIND [id number] [phone] YESSI BERGERZhane PATIENT ION ARE D 2017 251 9 IS MEDICAID MEDICAID [facility] Jul 17, MEDICAI [id number] [phone] DAYAMI BERGER PATIENT EALTH 2014 D [id number] 900 IS [place] MEDICARE MEDICARE PART Sep 16, PART A [id number] [phone] Rosmery BERGER PATIENT (WNR) (M) A 2010 00 IS MEDICARE MEDICARE PART Sep 16, PART B [id number] [phone] Rosmery BERGER PATIENT (WNR) (M) B 2010A 00 IS MEDICARE MEDICARE PART Sep 16, PART B [id number] Rosmery BERGER PATIENT (WNR) (M) B 2010 XH29 2 IS MEDICARE MEDICARE PART Sep 16, PART A [id number] Rosmery BERGER PATIENT (WNR) (M) A 2010 [...] 02, 2022 PRIMARY Enmanuel and GOMEZ SANTORO [place] 04:22 PM callosities Apr 02, 2022 SECONDARY Type 2 diabetes w GOMEZ SANTORO [place] 04:22 PM diabetic peripheral angiopath w/o gangrene Plan of Treatment: Future Appointments (+ 6 months) and Future Tests (+/- 45 days) The Plan of Treatment section includes future care activities for the patient [facility] This section includes future appointments and future orders which are active, pending orscheduled.Future Appointments This section includes appointments that were scheduled to occur 6 months from the date of the Encounter, up to a maximum of 20 appointments. The data comes from all [facility] treatment [facility]. Appointment Date/Time Appointment Type Appointment Facili ty Name Apr 17, 2022 03:15 PM [facility] May 14, 2022 02:15 PM [facility] Jun 14, 2022 01:[address] [facility] Jul 04, 2022 03:00 PM [facility] Jul 04, 2022 03:15 PM [facility] Jul 05, 2022 01:30 PM [facility] Sep 05, 2022 03:30 PM [facility] Oct 03, 2022 03:00 PM [facility] Active, Pending, and Scheduled Orders This [...] The data comes from all SD treatment [facility]. Test Date/Time Test Type Test Details Facility Name Apr 28, 2022 12:00 Laboratory - LIPID PANEL FASTING [facility] AM Chemistry Order BLOOD (SST-SERUM) SP [facility] Apr 28, 2022 12:00 Laboratory - MICROALBUMIN CREATININE [facility] AM Chemistry Order RATIO PANEL URINE [place] [facility] (RANDOM) SP Apr 28, 2022 12:00 Laboratory - HEMOGLOBIN A1C PANEL [facility] AM Chemistry Order BLOOD (LAV-BLOOD) SP [facility] Apr 28, 2022 12:00 Laboratory - BASIC METABOLIC PANEL [facility] L [facility] AM Chemistry Order (fasting) BLOOD [facility] (SST-SERUM) SP Social History: Smoking Status (Most current) [...] Comment Facility February 03, 2019 10:28 AM SD-TOBACCO NEVER USED [facility] Tobacco Use History This section includes a history of the smoking, or tobacco- related health factors, that were collected on or before the date of the Encounter. The data comes from the SD facility where the Encounter took place. Date/Time Smoking Status/Tobacco Use Comment [facility] Jan 13, 2018 09:49 AM LIFETIME NON-TOBACCO USER [place] Jan 04, 2017 10:17 AM LIFETIME NON-TOBACCO USER [place] Dec 23, 2015 08:49 AM LIFETIME NON-TOBACCO USER [place] Nov 27, 2005 02:55 PM LIFETIME NON-TOBACCO USER [place] patient reportssmoking only dafne pickett January 22, 2003 10:42 AM LIFETIME NON-SMOKER [facility] Aug 18, 2001 01:54 PM LIFETIME NON-TOBACCO USER [place] pt states he has never smoked May [...] BOTH COVID VACCINE DOSES + BOOSTER AT [facility] *PERFORMED AT CHECK-IN AND REVIEWED BY DR. [...] 13 DAYS AGO /jamal/ GOMEZ SANTORO DPM CRM CONSULTANT Signed: 04/02/2022 16:22
--- OUTSIDE RECORDS SUMMARY | 2022-08-25 08:36 | XMS_ITS ---
:1950 Author Organization Department of [facility] rs Address [address] [place] [address] Support Name Relationship Address Phone CELINEGONZÁLEZTHANIA Rosmery Unavailable [address] [place] [address] [place] [address] CELINEAMELIA Unavailable [address] [place] [address] Insurance Providers: All historical and current Section [...] AARP INS PRESCRIPT MEDIC Sep 16, PDPIND [id number] [phone] YESSI BERGERZhane PATIENT ION ARE D 2017 251 9 IS MEDICAID MEDICAID [facility] Jul 17, MEDICAI [id number] [phone] DAYAMI BERGER PATIENT EALTH 2014 D [id number] 900 IS [place] MEDICARE MEDICARE PART Sep 16, PART A [id number] [id number] Rosmery BERGER PATIENT (WNR) (M) A 2010 00 IS MEDICARE MEDICARE PART Sep 16, PART B [id number] [phone] Rosmery BERGER PATIENT (WNR) (M) B 2010 00 IS MEDICARE MEDICARE PART Sep 16, PART A [id number] Rosmery BERGER PATIENT (WNR) (M) A 2010 XH29 2 IS MEDICARE MEDICARE PART Sep 16, PART B [id number] Rosmery BERGER PATIENT (WNR) (M) B 2010 XH29 2 IS Selected Encounter This section includes the information on record at SD for the Encounter. Date/Time Encounter Type Encounter Description Reason Provider Source Apr 17, 2022 03:18 Outpatient Encounter PRIMARY CARE/MEDICINE PM [facility] Encounter Template Text not used by SD Plan of Treatment: Future Appointments (+ 6 months) and Future Tests (+/- 45 days) The Plan of Treatment section includes future care activities for the patient from all [facility] This section includes future appointments and future orders which are active, pending orscheduled.Future Appointments This section includes appointments that were scheduled to occur 6 months from the date of the Encounter, up to a maximum of 20 appointments. The data comes from all [facility]. Appointment Date/Time Appointment Type Appointment Facili ty Name May 14, 2022 02:15 PM AMBULATORY [facility] Jun 14, 2022 01:30 PM AMBULATORY MEDICINE [facility] Jul 04, 2022 03:00 PM AMBULATORY MEDICINE [facility] Jul 04, 2022 03:15 PM [facility] Jul 05, 2022 01:30 PM [facility] Sep 05, 2022 03:30 PM AMBULATORY [facility] Oct 03, 2022 03:00 PM AMBULATORY MEDICINE [facility] Active, Pending, and Scheduled Orders This section includes a listing of several types of active, pending, and scheduled orders, including clinic medications orders, diagnostic test orders, procedure orders and consult orders; where the start date of the order is 45 days before the date of the Encounter or 45 days after the date of the Encounter. The data comes from all [facility]. Test Date/Time Test Type Test Details Facility Name Apr 28, 2022 12:00 Laboratory - LIPID PANEL FASTING [facility] W[facility]N AM Chemistry Order BLOOD (SST-SERUM) SP [facility] Apr 28, 2022 12:00 Laboratory - MICROALBUMIN CREATININE [facility] TR WSTRN AM Chemistry Order RATIO PANEL URINE [facility] S (RANDOM) SP Apr 28, 2022 12:00 Laboratory - HEMOGLOBIN A1C PANEL [facility] AM Chemistry Order BLOOD (LAV-BLOOD) [facility] Apr 28, 2022 12:00 Laboratory - BASIC METABOLIC PANEL [facility] WSTRN AM Chemistry Order (fasting) BLOOD [facility] (SST-SERUM) SP Social History: Smoking Status (Most [...] VA-TOBACCO NEVER USED [facility] Encounter Notes: All associated [...] exam for toe on left foot The [facility] states they are: [ X ]Waiting [ ]Not Waiting Yes Walk in visit scheduled with PACT Nurse [ X ] At this encounter the 's demographi cs were verified. [ X ] At this encounter the 's Insurance information was verified. [ X ] At this encounter the below scheduled visi ts for the [facility] were discussed and appointment reminder card wa s offered. Future appointments: 04/17/2022 15:30 CWM/SO/SIC K CALL BRICK SETTER 07/04/2022 08:00 CWM/NO/NEPHROLOGY TEL-X 09/05/2022 15:30 CWM/SO/PODIATRY/MAUDE 12/06/2022 15:30 CWM/NO/OPTOMETRY/IVANNA [facility] came in to see Podiatry to exam toe on l eft foot, not healing. Let Pact rn and sick rn know. /jamal/ RIGOBRETO TRUONG Signed: 04/17/2022 15:20 Receipt Acknowledged By: * AWAITING SIGNATURE * BOISCLAIR,JOSÉ O * AWAITING SIGNATURE * RONAN FOX
--- OUTSIDE RECORDS SUMMARY | 2022-08-25 08:36 | XMS_ITS | Encounter Summary ---
:1950 Author Organization Department of [facility] rs Address [address] [place] [address] Support Name Relationship Address Phone CELINEGONZÁLEZTHANIA Rosmery Unavailable [address] [place] [address] [place] [address] CELINE AMELIA Unavailable [address] [place] [address] Insurance Providers: All historical and current Section [...] AARP INS PRESCRIPT MEDIC Sep 16, PDPIND [id number] [phone] YESSI BERGERZhane PATIENT ION ARE D 2017 [id number] 9 IS MEDICAID MEDICAID [facility] Jul 17, MEDICAI [id number] [phone] DAYAMI BERGER PATIENT EALTH 2014 D [id number] 900 IS [place] MEDICARE MEDICARE PART Sep 16, PART A [id number] [phone] Rosmery BERGER PATIENT (WNR) (M) A 2010 00 IS MEDICARE MEDICARE PART Sep 16, PART B [id number] [phone] Rosmery BERGER PATIENT (WNR) (M) B 2010 00 IS MEDICARE MEDICARE PART Sep 16, PART A [id number] Rosmery BERGER PATIENT (WNR) (M) A 2010 [id number] 2 IS MEDICARE MEDICARE PART Sep 16, PART B [id number] Rosmery BERGER PATIENT (WNR) (M) B 2010 [...] activities for the patient from all [facility]. This section includes future appointments and future orders which are active, pending orscheduled.Future Appointments This section includes appointments that were scheduled to occur 6 months from the date of the Encounter, up to a maximum of 20 appointments. The data comes from all [facility]. Appointment Date/Time Appointment Type Appointment Facili ty Name Feb 14, 2022 08:00 AM [facility] Mar 06, 2022 03:00 PM [facility] Mar 09, 2022 12:00 PM [facility] Mar 23, 2022 01:30 PM [facility] Mar 26, 2022 04:00 PM [facility] Apr 02, 2022 04:00 PM [facility] Apr 17, 2022 03:15 PM [facility] May 14, 2022 02:15 PM [facility] Jun 14, 2022 01:30 PM [facility] Jul 04, 2022 03:00 PM [facility]ICINE [facility] Jul 04, 2022 03:15 PM [facility] Jul 05, 2022 01:30 PM [place] [...] the Encounter. The data comes from all [facility]. Test Date/Time Test Type Test Details Facility Name Dec 30, 2021 12:00 Laboratory - CBC BLOOD (LAV-BLOOD) [facility] WSTRN AM Chemistry Order SP [facility] Dec 30, 2021 12:00 Laboratory - BASIC METABOLIC PANEL [facility] WSTRN AM Chemistry Order (non-fasting) BLOOD [place] [...] Nov 08, 2021 04:09 PM Reporting Lab: [facility] [address] [facility] [address] Performing Lab: [facility] [address] [facility] [address] PO4 3.5 2.5-5.0 January 18, 2022 07:58 [facility] PTH INTACT Specimen Typ e: SERUM AM [facility] No comment enter ed. Ordering Provid er: MELANIA RAMOS Report Released Date/Time: Nov 08, 2021 04:09 PM Reporting Lab: [facility] [address] [facility] [address] Performing Lab: [facility] [address] [facility] [address] PTH INTACT 122.6 H 10-65 January 18, 2022 07:58 [facility] MAGNESIUM Specimen Typ e: SERUM AM [facility] No comment enter ed. Ordering Provid er: MELANIA RAMOS Report Released Date/Time: Nov 08, 2021 04:09 PM Reporting Lab: [facility] [address] [facility] [address] Performing Lab: [facility] [address] [facility] [address] MAGNESIUM 2.0 1.6-2.6 January 18, 2022 07:58 [facility] [place] CALCIUM S pecimen Type: SERUM AM [facility]CS No comment enter ed. Ordering Provid er: MELANIA RAMOS Report Released Date/Time: Nov 08, 2021 04:09 PM Reporting Lab: [facility] [address] [facility] [address] Performing Lab: [facility] [address] [facility] [address] CALCIUM 9.9 8.5-10.2 January 18, 2022 [facility] ALKALINE PHOSPHATASE Specimen T ype: SERUM 07:58 AM [facility] No comment enter ed. Ordering Provid er: MELANIA RAMOS Report Released Date/Time: Nov 08, 2021 04:09 PM Reporting Lab: [facility] [address] [facility] [address] Performing Lab: [facility] [address] [facility] [address] ALKALINE PHOSPHATASE 83 40-150 January 18, 2022 [facility] BASIC METABOLIC PANEL Specimen Type: SERUM 07:58 AM [place] [facility] (non-fasting) No comment enter ed. Ordering Provid er: MELANIA RAMOS Report Released Date/Time: Nov 08, 2021 04:09 PM Reporting Lab: [facility] [address] [facility] [address] Performing Lab: [facility] [address] [facility] [address] UREA NITROGEN 22 7-25 GLUCOSE 203 H 65-100 SODIUM 138 135-145 POTASSIUM 4.4 3.5-5.0 CHLORIDE 106 100-110 CO2 25 20-30 CREATININE, Serum 1.68 H 0.50-1.40 eGFR(CKD-EPI 2020) 43 L >60 January 18, 2022 [facility] HEMOGLOBIN A1C PANEL Specimen T ype: BLOOD 07:58 AM [place] [facility] Comment: Testin g performed by NGSP [...] 2021 01:34 PM Reporting Lab: [facility]N [facility] [facility] [address] [facility] [address] Performing Lab: [facility] [address] [facility] [address] HEMOGLOBIN A1C 10.5 H 4.0-5.6 January 18, 2022 [facility] MICROALBUMIN CREATININE Specime n Type: URINE 07:58 AM [facility] RATIO PANEL No comment enter ed. Ordering Provid er: DELMER STALLINGS Report Released Date/Time: Dec 29, 2021 01:34 PM Reporting Lab: [facility] [address] [facility] [address] Performing Lab: [facility] [address] [facility] [address] MICROALBUMIN/CREATININE RATIO 308.5 H 0-29.9 MICROALBUMIN,QUANTITATIVE 20.7 RR U NAVAIL CREATININE URINE 67.10 January 18, 2022 07:58 [facility] LIPID PANEL FASTING Specimen Type: SERUM AM [facility] No comment enter ed. Ordering Provid er: DELMER STALLINGS Report Released Date/Time: Dec 29, 2021 01:34 PM Reporting Lab: [facility] [address] [facility] [address] Performing Lab: [facility] [address] [facility] [address] CHOLESTEROL 192 <7-199 TRIGLYCERIDE 180 H 0-150 LDL calculated 118 0-129 CHOL/HDL 5.1 HDL CHOLESTEROL 38 L 40-60 January 18, 2022 [facility] BASIC METABOLIC PANEL Specimen Type: SERUM 07:58 AM [facility] [facility] (fasting) No comment enter ed. Ordering Provid er: DELMER STALLINGS Report Released Date/Time: Dec 29, 2021 01:34 PM Reporting Lab: [facility] [place] [facility] [address] [facility] [address] Performing Lab: [facility] [address] [facility] [address] UREA NITROGEN 22 7-25 GLUCOSE 207 H [...] 11, 2021 01:18 PM VA-TOBACCO NEVER USED [facility] NTRL [facility] Encounter Notes: All associated encounter notes This section contains the clinical notes associated to the Encounter. Date/Time Encounter Note(s) Provider Source February 06, 2022 12:00 AM NONVA NOTE: [facility] LOCAL TITLE: NON-VA OUTPATIENT NOTES [facility] STANDARD TITLE: NONVA NOTE DATE OF NOTE: FEBRUARY 06, 2022 ENTRY DATE: APR 02 022@10:13:23 AUTHOR: VIANEY OTOOLE COSIGNER: URGENCY: STATUS: COMPLETED VistA Imaging - Scanned Document SCANNED DOCUMENT SIGNATURE NOT REQUIRED Electronically Filed: 04/02/2022 by: ENA OTOOLE Supervisor Microfilm Duplicating Unit
--- OUTSIDE RECORDS SUMMARY | 2022-08-25 08:37 | XMS_ITS | Encounter Summary ---
:1950 Author Organization Department of [facility] rs Address [address] [place] [id number] Support Name Relationship Address Phone THANIA BERGER Rosmery Unavailable [address] [place] [address] [place] [address] AMELIA BERGER Unavailable [address] [place] [address] Insurance Providers: All historical and current Section [...] AARP INS PRESCRIPT MEDIC Sep 16, PDPIND [id number] CELINE DAYAMI PATIENT ION ARE D 2017 251 [id number] IS MEDICAID MEDICAID [facility] Jul 17, MEDICAI [id number] [phone] CELINE DAYAMI PATIENT EALTH 2014 D [id number] IS [place]AND [place]STOPHER MEDICARE MEDICARE PART Sep 16, PART A [id number] [phone] Rosmery BERGER PATIENT (WNR) (M) A 2010 00 IS MEDICARE MEDICARE PART Sep 16, PART B [id number] [phone] Rosmery BERGER PATIENT (WNR) (M) B 2010 00 IS MEDICARE MEDICARE PART Sep 16, PART A [id number] Rosmery BERGER PATIENT (WNR) (M) A 2010 [id number] 2 IS MEDICARE MEDICARE PART Sep 16, PART B [id number] Rosmery BERGER PATIENT (WNR) (M) B 2010 XH29 2 IS Selected Encounter This section includes the information on record at [place] for the Encounter. Date/Time Encounter Type Encounter Reason Provider Source Description Apr 17, 2022 OFFICE O/P EST PRIMARY ICD-10-CM BIGG FOX 03:15 PM MINIMAL [facility] CARE/MEDICINE M79.675 Pain WONG in left toe(s) with Provider Comments: Pain in left Toe(s) IHE Encounter Template Text not used by [place] Assessments - Encounter Diagnoses This section includes the primary and secondary diagnoses documented for the Encounter. Date/Time Primary/Secondary Diagnosis Name Provider Source Diagnosis Apr 19, 2022 PRIMARY Pain in left LISA FOX [place] 03:01 PM toe(s) LLE Plan of Treatment: Future Appointments (+ 6 months) and Future Tests (+/- 45 days) The Plan of Treatment section includes future care activities for the patient from all [place] [facility]. This section includes future appointments and future orders which are active, pending orscheduled.Future Appointments This section includes appointments that were scheduled to occur 6 months from the date of the Encounter, up to a maximum of 20 appointments. The data comes from all [facility]. Appointment Date/Time Appointment Type Appointment Facili ty Name May 14, 2022 02:15 PM AMBULATORY MEDICINE [place] Jun 14, 2022 01:30 PM AMBULATORY MEDICINE [facility] Jul 04, 2022 03:00 PM [facility] Jul 04, 2022 03:15 PM AMBULATORY MEDICINE [facility] Jul 05, 2022 01:30 PM [facility] MEDICINE [place] Sep 05, 2022 03:30 PM [facility] MEDIC[facility] [place] Oct 03, 2022 03:00 PM AMBULATORY MEDICINE [facility] Active, Pending, and Scheduled Orders This section includes a listing of several types of active, pending, and scheduled orders, including clinic medications orders, diagnostic test orders, procedure orders and consult orders; where the start date of the order is 45 days before the date of the Encounter or 45 days after the date of the Encounter. The data comes from all [facility]. Test Date/Time Test Type Test Details Facility Name Apr 28, 2022 12:00 Laboratory - LIPID PANEL FASTING [facility] AM Chemistry Order BLOOD (SST-SERUM) SP [facility] Apr 28, 2022 12:00 Laboratory - [...] Mass Index Apr 17 135/72 97 % [facility] 2021 03:48 /min mm[Hg] IELD PM Social [...] 03, 2019 10:28 AM [place]-TOBACCO NEVER USED DANIEL IRVIN Tobacco Use History This section includes a history of the smoking, or tobacco- related health factors, that were collected on or before the date of the Encounter. The data comes from the [place] facility where the Encounter took place. Date/Time Smoking Status/Tobacco Use Comment [facility] Jan 13, 2018 09:49 AM LIFETIME NON-TOBACCO USER [place] Jan 04, 2017 10:17 AM LIFETIME NON-TOBACCO USER [place] Dec 23, 2015 08:49 AM LIFETIME NON-TOBACCO USER [place] Nov 27, 2005 02:55 PM LIFETIME NON-TOBACCO USER [place] patient reportssmoking only crac zaira pickett January 22, 2003 10:42 AM LIFETIME NON-SMOKER [facility] Aug 18, 2001 01:54 PM LIFETIME NON-TOBACCO USER [place] pt states he has never smoked May 14, 2001 02:23 PM LIFETIME NON-SMOKER [facility] Encounter Notes: All associated encounter notes This section contains the clinical notes associated to the Encounter. Date/Time Encounter Note(s) Provider Source Apr 17, 2022 03:15 PM PRIMARY CARE NOTE: RONAN FOX LOCAL TITLE: WALK-IN NOTE PRIMARY CARE (T) STANDARD TITLE: PRIMARY CARE NOTE DATE OF NOTE: APR 17, 2022@15:15 ENTRY DATE: APR 19, 2022@14:55:27 AUTHOR: RONAN FOX EXP COSIGNER: URGENCY: STATUS: COMPLETED <====Click to Start Nurse Data: 71year old MALE reports to Primary Care clinic for Walk-In [...] N SATURDAY ACTIVE 23 Total Medications Action: [place] comes in because he has a callous on his left big toe. states it had been infected a while back and had to bi e abx. Toe does not look infected, no redness or warth felt when palpated . [place] stated it did not hurt at that [...]
--- OUTSIDE RECORDS SUMMARY | 2022-08-25 08:37 | XMS_ITS ---
:1950 Author Organization Department of [facility] rs Address [address] [place] [address] Support Name Relationship Address Phone CELINEGONZÁLEZTHANIA Rosmery Unavailable [address] [place] [address] [place] [address] CELINEAMELIA Unavailable [address] [place] [address] Insurance Providers: All historical and current Section [...] AARP INS PRESCRIPT MEDIC Sep 16, PDPIND [id number] [phone] YESSI BERGERZhane PATIENT ION ARE D 2017 251 9 IS MEDICAID MEDICAID [facility] Jul 17, MEDICAI [id number] [phone] DAYAMI BERGER PATIENT EALTH 2014 D [id number] IS [place]AND [place]HER MEDICARE MEDICARE PART Sep 16, PART A [id number] [phone] Rosmery BERGER PATIENT (WNR) (M) A 2010 00 IS MEDICARE MEDICARE PART Sep 16, PART B [id number] [phone] Rosmery BERGER PATIENT (WNR) (M) B 2010 00 IS MEDICARE MEDICARE PART Sep 16, PART A [id number] Rosmery BERGER PATIENT (WNR) (M) A 2010 XH29 2 IS MEDICARE MEDICARE PART Sep 16, PART B [id number] Rosmery BERGER PATIENT (WNR) (M) B 2010 XH29 2 IS Selected Encounter This section includes the information on record at [place] for the Encounter. Date/Time Encounter Type Encounter Description Reason Provider Source Apr 17, 2022 04:00 Outpatient Encounter PRIMARY CARE/MEDICINE PM IHE Encounter Template Text not used by [place] Plan of Treatment: Future Appointments (+ 6 months) and Future Tests (+/- 45 days) The Plan of Treatment section includes future care activities for the patient from all [place] [facility]. This section includes future appointments and future orders which are active, pending orscheduled.Future Appointments This section includes appointments that were scheduled to occur 6 months from the date of the Encounter, up to a maximum of 20 appointments. The data comes from all [facility]. Appointment Date/Time Appointment Type Appointment Facili ty Name May 14, 2022 02:15 PM AMBULATORY [facility] Jun 14, 2022 01:30 PM AMBULATORY MEDICINE [facility] Jul 04, 2022 03:00 PM [facility] Jul 04, 2022 03:15 PM [facility] Jul 05, 2022 01:30 PM [facility] Sep 05, 2022 03:30 PM AMBULATORY [facility] Oct 03, 2022 03:00 PM AMBULATORY MEDICINE [facility] Active, Pending, and Scheduled Orders This section includes a listing of several types of active, pending, and scheduled orders, including clinic medications orders, diagnostic test orders, procedure orders and consult orders; where the start date of the order is 45 days before the date of the Encounter or 45 days after the date of the Encounter. The data comes from all [facility]. Test Date/Time Test Type Test Details Facility Name Apr 28, 2022 12:00 [facility] AM Chemistry Order BLOOD [facility] Apr 28, 2022 12:00 Laboratory - MICROALBUMIN CREATININE [place] [facility] AM Chemistry Order RATIO PANEL URINE [place] [facility] ([facility]) Apr 28, 2022 12:00 Laboratory - BASIC METABOLIC PANEL [place] [facility] L [facility] AM Chemistry Order (fasting) BLOOD [place] [facility] (SST-SERUM) Apr 28, 2022 12:00 Laboratory - HEMOGLOBIN A1C PANEL [facility] AM Chemistry Order [facility]LOOD [facility] Social History: Smoking Status (Most current) and [...] [place]-TOBACCO NEVER USED [place] [facility] N[facility]L [facility] Encounter Notes: All associated encounter notes This section contains the clinical notes associated to the Encounter. Date/Time Encounter Note(s) Provider Source Apr 17, 2022 04:00 PM ADMINISTRATIVE NOTE: RONAN FOX [facility] TITLE: ADMINISTRATIVE NOTE STANDARD TITLE: ADMINISTRATIVE NOTE DATE OF NOTE: APR 17, 2022@16:00 ENTRY DATE: APR 17, 2022@16:00:32 AUTHOR: RONAN FOX EXP COSIGNER: URGENCY: STATUS: COMPLETED [place] would like to make an appt with Podiatry . Best number to call is [phone]. /jamal/ RONAN FOX RN REGISTERED NURSE Signed: 04/17/2022 16:01 Receipt Acknowledged By: * AWAITING SIGNATURE * ROOSEVELT OCONNELL
--- OUTSIDE RECORDS SUMMARY | 2022-08-25 08:37 | XMS_ITS | Encounter Summary ---
:1950 Author Organization Department of [facility] rs Address [address] [place] [address] Support Name Relationship Address Phone THANIA BERGER Rosmery Unavailable [address] [place] [address] AMELIA BERGER Unavailable [address] [place] [address] Insurance Providers: All historical and current Section [...] AARP INS PRESCRIPT MEDIC Sep 16, PDPIND [id number] [phone] YESSI BERGERZhane PATIENT ION ARE D 2017 251 9 IS MEDICAID MEDICAID [facility] Jul 17, MEDICAI [id number] [phone] DAYAMI BERGER PATIENT EALTH 2014 D [id number] 900 IS [place] MEDICARE MEDICARE PART Sep 16, PART A [id number] [phone] Rosmery BERGER PATIENT (WNR) (M) A 2010 00 IS MEDICARE MEDICARE PART Sep 16, PART B [id number] [phone] Rosmery BERGER PATIENT (WNR) (M) B 2010A 00 IS MEDICARE MEDICARE PART Sep 16, PART A [id number] Rosmery BERGER PATIENT (WNR) (M) A 2010 [id number] 2 IS MEDICARE MEDICARE PART Sep 16, PART B [id number] Rosmery BERGER PATIENT (WNR) (M) B 2010 [...] activities for the patient from all [place] [facility]. This section includes future appointments and future orders which are active, pending orscheduled.Future Appointments This section includes appointments that were scheduled to occur 6 months from the date of the Encounter, up to a maximum of 20 appointments. The data comes from all [facility]. Appointment Date/Time Appointment Type Appointment Facili ty Name May 14, 2022 02:15 PM AMBULATORY MEDICINE [facility] Jun 14, 2022 01:30 PM [facility] Jul 04, 2022 03:00 PM [facility] Jul 04, 2022 03:15 PM [facility] Jul 05, 2022 01:30 PM [facility] Sep 05, 2022 03:30 PM AM[facility]UL[facility]ORY [facility] Oct 03, 2022 03:00 PM [facility] Active, Pending, and Scheduled Orders This [...] comes from all [facility]. Test Date/Time Test Type Test Details Facility Name Apr 28, 2022 12:00 Laboratory - LIPID PANEL FASTING [place] [facility] AM Chemistry Order BLOOD (SST-SERUM) [place] [facility] Apr 28, 2022 12:00 Laboratory - MICROALBUMIN CREATININE [facility] TRL [facility] AM Chemistry Order RATIO PANEL URINE [place] [facility] ([facility]) Apr 28, 2022 12:00 Laboratory - BASIC METABOLIC PANEL [place] [facility] L [facility] AM Chemistry Order [facility]fasting[facility] ([facility] Apr 28, 2022 12:00 Laboratory - HEMOGLOBIN A1C PANEL [place] CN[facility]L [facility] AM Chemistry Order BLOOD (LAV-BLOOD) SP [facility] Social History: Smoking Status (Most current) [...] [facility]-TOBACCO NEVER USED [facility] C N[facility]L [facility] Encounter Notes: All associated encounter notes This section contains the clinical notes associated to the Encounter. Date/Time Encounter Note(s) Provider Source Apr 19, 2022 02:37 PM RN PROGRESS NOTE: RYNE JORDAN [place] CN[facility] LOCAL TITLE: CCC: CLINICAL TRIAGE [facility] STANDARD TITLE: RN PROGRESS NOTE DATE OF NOTE: APR 19, 2022@14:37:40 ENTRY DATE: APR 19, 2022@14:37:40 AUTHOR: RYNE JORDAN EXP COSIGNER: URGENCY: STATUS: COMPLETED CCC: CLINICAL TRIAGE Has ADDENDA Patient Demographics Patient Name: JESSICA BERGER Patient Primary Address: [address] [place] [address] <>[place] [address] Patient Primary Phone: [phone] Patient : 1950 SSN: [id number] Patient Age: 71 Caller Relationship: Caregiver Caller Name: Joycelyn Emergency Contactx: AMELIA BERGER Emergency Contact Phonex: Triage Summary Nurse Summary: Pts GF/caregiver, Joycelyn (no auth on file) called today saying she's waiting for a call lawson k from Podiatry regarding the wound on the pts left foot. Joycelyn says the pt was seen in [place] at the [facility] on 04/17/22 and was told the toe isn't infected. Joycelyn says the pt says the pain in the toe is getting worse and they are really hoping to get in to see Podiatry before the weekend. Joycelyn denies any n/v/d/feve rs and says she's hoping to get in with Podiatry so the pts symptoms don't progress to that point. CCC RN was not able to see the [place] note from . Forwarding to the PACT for review and f/u and al erting PACT RN via Teams. Joycelyn can be reached at [phone] Summary of Actions Other course(s) of action Generated msg to PACT/Provider Provided guidance for worsening symptoms: *Johns r/Patient* advised to call facilities [place] Clinical Contact [facility] or seek [facility] medical attention for new or worsening symptoms Clinical Contact Center Codes Clinic/Location: V1 CWM PHONE CCC RN /jamal/ RYNE JORDAN CALL CENTER REGISTERED NURSE Signed: 04/19/2022 14:37 Receipt Acknowledged By: 04/19/2022 15:33 /es/ JOEY RODRIGUEZ LPN LICENSED PRACTICAL NURSE 04/19/2022 14:54 /jamal/ RONAN FOX RN REGISTERED NURSE * AWAITING SIGNATURE * ANISHROOSEVELT A 04/19/2022 ADDENDUM STATUS: COMPLETED Podiatry AMSA to [...] few times over several days. Urged gir lfriend to make sure not to scrub vigorously. Joycelyn understands information . /jamal/ RONAN FOX RN REGISTERED NURSE Signed: 04/19/2022 15:47 04/19/2022 ADDENDUM STATUS: COMPLETED Joyc[place] was advised the next availability for a P odiatry appt is in August. /jamal/ RONAN FOX RN REGISTERED NURSE Signed: 04/19/2022 15:48
--- OUTSIDE RECORDS SUMMARY | 2022-08-25 08:38 | XMS_ITS | Encounter Summary ---
:1950 Author Organization Department of [facility] rs Address [address] [place] [address] Support Name Relationship Address Phone THANIA BERGER Unavailable [address] [place] [address] [place] [address] AMELIA BERGER Unavailable [address] [place] [address] Insurance Providers: All historical and current Section [...] AARP INS PRESCRIPT MEDIC Sep 16, PDPIND [id number] [phone] YESSI BERGERZhane PATIENT ION ARE D 2017 251 9 IS MEDICAID MEDICAID [facility] Jul 17, MEDICAI [id number] [phone] DAYAMI BERGER PATIENT EALTH 2014 D [id number] IS [place]STOPHER MEDICARE MEDICARE PART Sep 16, PART A [id number] [phone] Rosmery BERGER PATIENT (WNR) (M) A 2010 00 IS MEDICARE MEDICARE PART Sep 16, PART B [id number] [phone] Rosmery BERGER PATIENT (WNR) (M) B 2010A 00 IS MEDICARE MEDICARE PART Sep 16, PART A [id number] Rosmery BERGER PATIENT (WNR) (M) A 2010 XH29 2 IS MEDICARE MEDICARE PART Sep 16, PART B [id number] Rosmery BERGER PATIENT (WNR) (M) B 2010 [...] Diagnosis May 15, 2022 PRIMARY FAIZA Nascimento [place] 08:48 AM callosities Plan of Treatment: Future Appointments (+ 6 months) and Future Tests (+/- 45 days) The Plan of Treatment section includes future care activities for the [facility] [place] [facility] This section includes future appointments and future orders which are active, pending orscheduled.Future Appointments This section includes appointments that were scheduled to occur 6 months from the date of the Encounter, up to a maximum of 20 appointments. The data comes from all [facility]. Appointment Date/Time Appointment Type Appointment Facili ty Name Jun 14, 2022 01:30 PM AMBULATORY MEDICINE [facility] Jul 04, 2022 03:00 PM [facility] Jul 04, 2022 03:15 PM AM[facility]ULATORY [facility] Jul 05, 2022 01:30 PM [facility] Sep 05, 2022 03:30 PM [facility] Oct 03, 2022 03:00 PM [facility] Oct 30, 2022 03:00 PM [facility] Active, Pending, and Scheduled Orders This section includes a listing of several types of active, pending, and scheduled orders, including clinic medications orders, diagnostic test orders, procedure orders and consult orders; where the start date of the order is 45 days before the date of the Encounter or 45 days after the date of the Encounter. The data comes from all [facility]. Test Date/Time Test Type Test Details Facility Name Apr 28, 2022 12:00 [facility] Order BLOOD (SST-SERUM) [facility] Apr 28, 2022 12:00 Laboratory - BASIC METABOLIC PANEL [facility] AM Chemistry Order (fasting) BLOOD [facility] (SST-SERUM) SP Apr 28, 2022 12:00 Laboratory - MICROALBUMIN CREATININE [facility] AM Chemistry Order RATIO PANEL URINE [place] [facility] (RANDOM) SP Apr 28, 2022 12:00 Laboratory - HEMOGLOBIN A1C PANEL [facility] AM Chemistry Order BLOOD (LAV-BLOOD) [facility] Lab Results: +/- 30 days of the [...] Feb 14, 2022 08:21 AM Reporting Lab: [facility] [facility] [address] [facility] [address] Performing Lab: [facility] [facility] [address] [facility] [address] FERRITIN 20.5 20-300 Jun 08, 2022 [facility] MICROALBUMIN Specimen Type: URINE 07:39 AM [place] [facility] CREATININE RATIO PANEL No commen t entered. Ordering Provid er: MELANIA RAMOS Report Released Date/Time: Feb 14, 2022 08:21 AM Reporting Lab: [facility] [place] [facility] [address] [facility] [address] Performing Lab: [facility] [place] [facility] [address] [facility] [address] MICROALBUMIN/CREATININE RATIO 316.8 H 0-29.9 MICROALBUMIN,QUANTITATIVE 24.7 RR U NAVAIL CREATININE URINE 77.97 Jun 08, 2022 [facility] IRON & TIBC PANEL Specimen Type : SERUM 07:39 AM [facility] [facility] No comment enter ed. Ordering Provid er: MELANIA RAMOS Report Released Date/Time: Feb 14, 2022 08:21 AM Reporting Lab: [facility] [place] [facility] [address] [facility] [address] Performing Lab: [facility] [address] [facility] [address] TIBC 381 204-475 IRON 64 40-160 Transferrin Saturation 16.8 L 20.0-50 .0 Jun 08, 2022 [facility] BASIC METABOLIC PANEL Specimen Type: SERUM 07:39 AM [facility] (non-fasting) No comment enter ed. Ordering Provid er: MELANIA RAMOS Report Released Date/Time: Feb 14, 2022 08:21 AM Reporting Lab: [facility] [address] [facility] [address] Performing Lab: [facility] [address] [facility] [address] UREA NITROGEN 24 7-25 GLUCOSE 230 H 65-100 SODIUM 136 135-145 POTASSIUM 5.2 H 3.5-5.0 CHLORIDE 104 100-110 CO2 23 20-30 CREATININE, Serum 1.66 H 0.50-1.40 eGFR(CKD-EPI 2020) 44 L >60 Jun 08, 2022 07:39 AM [place] LIPID PANEL FASTING Speci men Type: SERUM No comment enter ed. Ordering Provid er: AMBIKA KNIGHT Report Released Date/Time: Jun 06, 2022 03:16 PM Reporting Lab: [facility] [address] [facility] [address] Performing Lab: [facility] [address] [facility] [address] CHOLESTEROL 146 <7-199 TRIGLYCERIDE 238 H 0-150 LDL calculated 67 0-129 CHOL/HDL 4.7 HDL CHOLESTEROL 31 L 40-60 Jun 08, 2022 [place] [facility] HEMOGLOBIN A1C Specimen Type: BLOOD 07:39 AM [...] Jun 06, 2022 03:16 PM Reporting Lab: [facility] [place] [facility] [address] [facility] [address] Performing Lab: [facility] [place] [facility] [address] [facility] [address] HEMOGLOBIN A1C 9.4 H 4.0-5.6 Jun 08, 2022 07:39 AM [facility] [place] [facility] Specimen Type: BLOOD HCS No comment enter ed. Ordering Provid er: MELANIA RAMOS Report Released Date/Time: Feb 14, 2022 08:21 AM Reporting Lab: [facility] [place] [facility] [address] [facility] [address] Performing Lab: [facility] [place] [facility] [address] [facility] [address] WBC 7.26 4.50-11.00 RBC 5.31 4.23-5.66 HGB 13.9 12.8-17 HCT 43.1 39.2-50.4 MCV 81.2 L 82-99 MCHC 32.3 30.8-35.1 PLT 280 140-360 RDW-CV 15.5 12.0-16.0 MCH 26.2 26.2-32.6 Jun 08, 2022 07:39 AM [place] BASIC METABOLIC PANEL Spe cimen Type: SERUM (fasting) No comment enter ed. Ordering Provid er: AMBIKA KNIGHT Report Released Date/Time: Jun 06, 2022 03:16 PM Reporting Lab: [facility] [place] [facility] [address] [facility] [address] Performing Lab: [facility] [place] [facility] [address] [facility] [address] UREA NITROGEN 24 7-25 GLUCOSE 230 H [...] Mass Index May 14 135/78 97 % [facility] 2021 02:25 /min mm[Hg] IELD PM Social [...] 03, 2019 10:28 AM [place]-TOBACCO NEVER USED [facility] Tobacco Use History This section includes a history of the smoking, or tobacco- related health factors, that were collected on or before the date of the Encounter. The data comes from the [facility] where the Encounter took place. Date/Time Smoking Status/Tobacco Use Comment [facility] Jan 13, 2018 09:49 AM LIFETIME NON-TOBACCO USER [place] [facility] Jan 04, 2017 10:17 AM LIFETIME NON-TOBACCO USER [place] [facility] Dec 23, 2015 08:49 AM LIFETIME NON-TOBACCO USER [place] [facility] Nov 27, 2005 02:55 PM LIFETIME NON-TOBACCO USER [place] [facility] patient reportssmoking only dafne meneses jasielbaron January 22, 2003 10:[address] NON-SMOKER [facility] Aug 18, 2001 01:54 PM LIFETIME NON-TOBACCO USER [place] pt states he has never smoked May 14, 2001 02:[address]IME NON-SMOKER [facility] Encounter Notes: All associated encounter notes This section contains the clinical notes associated to the Encounter. Date/Time Encounter Note(s) Provider Source May 15, 2022 08:43 AM NURSE PRACTITIONER NOTE: FAIZA SAUCEDOFORMERLY [facility] LOCAL TITLE: NURSE PRACTIONER/SICK VISIT STANDARD TITLE: NURSE PRACTITIONER NOTE DATE OF NOTE: MAY 15, 2022@08:43 ENTRY DATE: MAY 15, 2022@08:43:19 AUTHOR: FAIZA SAUCEDO COSIGNER: URGENCY: STATUS: COMPLETED SICK CALL VISIT JESSICATANGELA BERGER, is a 71 yo WHITE MALE Lynden who presents at [facility] sick call with: Callus on left great [...] patient education, and care coordination. /jamal/ FAIZA SAUCDEO NP NURSE PRACTITIONER Signed: 05/15/2022 08:48
--- OUTSIDE RECORDS SUMMARY | 2022-08-25 08:38 | XMS_ITS ---
:1950 Author Organization Department of [facility] rs Address [address] [place] [address] Support Name Relationship Address Phone GONZÁLEZ BERGERSON Rosmery Unavailable [address] [place] [address] [place] [address] AMELIA BERGER Unavailable [address] [place] [address] Insurance Providers: All historical and current Section [...] AARP INS PRESCRIPT MEDIC Sep 16, PDPIND [id number] [phone] YESSI BERGERZhane PATIENT ION ARE D 2017 [id number] IS MEDICAID MEDICAID [facility] Jul 17, MEDICAI [id number] [phone] DAYAMI BERGER PATIENT EALTH 2014 D [id number] 900 IS [place] MEDICARE MEDICARE PART Sep 16, PART A [id number] Rosmery BERGER PATIENT (WNR) (M) A 2010 00 IS MEDICARE MEDICARE PART Sep 16, PART B [id number] [phone] Rosmery BERGER PATIENT (WNR) (M) B 2010A 00 IS MEDICARE MEDICARE PART Sep 16, PART A [id number] Rosmery BERGER PATIENT (WNR) (M) A 2010 XH29 2 IS MEDICARE MEDICARE PART Sep 16, PART B [id number] Rosmery BERGER PATIENT (WNR) (M) B 2010 XH29 2 IS Selected Encounter This section includes the information on record at [place] for the Encounter. Date/Time Encounter Type Encounter Reason Provider Source Description Jun 14, 2022 OFFICE O/P EST ENDOCRINOLOGY ICD-10-CM E11.8 AMIRA STALLINGS 01:30 PM MOD 30-39 MIN Type 2 diabetes mellitus with unspecified complications with Provider Comments: Type II diabetes mellitus ([facility] [id number]) IHE Encounter Template Text not used by [place] Assessments - Encounter Diagnoses This section includes the primary and secondary diagnoses documented for the Encounter. Date/Time Primary/Secondary Diagnosis Name Provider Source Diagnosis Jun 14, 2022 PRIMARY Type 2 diabetes DELMER STALLINGS [place] [facility] RN 07:34 PM mellitus with [place] [facility] unspecified complications Jun 14, 2022 SECONDARY Chronic kidney DELMER STALLINGS [place] [facility] [place] 07:34 PM disease, [facility] unspecified Jun 14, 2022 SECONDARY Essential DELMER STALLINGS [place] [facility] 07:34 PM (primary) [facility] hypertension Jun 14, 2022 SECONDARY Hyperlipidemia, STALLINGSDELMER [place] [facility] RN 07:34 PM unspecified [place] [facility] Plan of Treatment: Future Appointments (+ 6 [...] ty Name Jul 04, 2022 03:00 PM [facility] [place] [facility] [place] [facility] Jul 04, 2022 03:15 PM [facility] [place] [facility] Jul 05, 2022 01:30 PM AMBULATORY MEDICINE [place] Sep 05, 2022 03:30 PM [facility] Oct 03, 2022 03:00 PM AMBULATORY [facility] [place] [facility] Oct 30, 2022 03:00 PM AMBULATORY [facility] [place] [facility] Dec 06, 2022 03:30 PM [facility] Lab Results: +/- 30 days of [...] Feb 14, 2022 08:21 AM Reporting Lab: [place] [facility] [place] [facility] [address] [facility] [address] Performing Lab: [place] [facility] [place] [facility] [address] [facility] [address] FERRITIN 20.5 20-300 Jun 08, 2022 [facility] IRON & TIBC PANEL Specimen Type : SERUM 07:39 AM [place] [facility] No comment enter ed. Ordering Provid er: MELANIA VINCENT Report Released Date/Time: Feb 14, 2022 08:21 AM Reporting Lab: [facility] [place] [facility] [address] [facility] [address] Performing Lab: [facility] [place] [facility] [address] [facility] [address] TIBC 381 204-475 IRON 64 40-160 Transferrin Saturation 16.8 L 20.0-50 .0 Jun 08, 2022 [facility] MICROALBUMIN Specimen Type: URINE 07:39 AM [place] [facility] CREATININE RATIO PANEL No commen t entered. Ordering Provid er: MELANIA VINCENT Report Released Date/Time: Feb 14, 2022 08:21 AM Reporting Lab: [facility] [place] [facility] [address] [facility] [address] Performing Lab: [facility] [place] [facility] [address] [facility] [address] MICROALBUMIN/CREATININE RATIO 316.8 H 0-29.9 MICROALBUMIN,QUANTITATIVE 24.7 RR U NAVAIL CREATININE URINE 77.97 Jun 08, 2022 [place] HEMOGLOBIN A1C Specimen Type: BLOOD 07:39 AM [...] Jun 06, 2022 03:16 PM Reporting Lab: [facility] M[place]ETRN [place] [facility] [address] [facility] [address] Per[facility]: [facility] [place] [facility] [address] [facility] [address] HEMOGLOBIN A1C 9.4 H 4.0-5.6 Jun 08, 2022 07:39 AM [place] [facility] [place] CBC Specimen Type: BLOOD HCS No comment enter ed. Ordering Provid er: MELANIA VINCENT Report Released Date/Time: Feb 14, 2022 08:21 AM Reporting Lab: [facility] [place] [facility] [address] [facility] [address] Performing Lab: [facility] [place] [facility] [address] [facility] [address] WBC 7.26 4.50-11.00 RBC 5.31 4.23-5.66 HGB 13.9 12.8-17 HCT 43.1 39.2-50.4 MCV 81.2 L 82-99 MCHC 32.3 30.8-35.1 PLT 280 140-360 RDW-CV 15.5 12.0-16.0 MCH 26.2 26.2-32.6 Jun 08, 2022 07:39 AM [place] LIPID PANEL FASTING Speci men Type: SERUM No comment enter ed. Ordering Provid er: AMBIKA KNIGHT Report Released Date/Time: Jun 06, 2022 03:16 PM Reporting Lab: [facility] [place] [facility] [address] [facility] [address] Performing [facility]: [facility] [address] [facility] [address] CHOLESTEROL 146 <7-199 TRIGLYCERIDE 238 H 0-150 LDL calculated 67 0-129 CHOL/HDL 4.7 HDL CHOLESTEROL 31 L 40-60 Jun 08, 2022 07:39 AM [place] BASIC METABOLIC PANEL Spe cimen Type: SERUM (fasting) No comment enter ed. Ordering Provid er: AMBIKA KNIGHT Report Released Date/Time: Jun 06, 2022 03:16 PM Reporting Lab: [facility] WSTRN [place] [facility] [address] [facility] [address] Performing Lab: [facility] WSTRN [place] [facility] [address] [facility] [address] UREA NITROGEN 24 7-25 GLUCOSE 230 H 65-100 SODIUM 136 135-145 POTASSIUM 5.2 H 3.5-5.0 CHLORIDE 104 100-110 CO2 23 20-30 CREATININE, Serum 1.66 H 0.50-1.40 eGFR(CKD-EPI 2020) 44 L >60 Jun 08, 2022 [facility] WSTRN BASIC METABOLIC PANEL Specimen Type: SERUM 07:39 AM [place] [facility] (non-fasting) No comment enter ed. Ordering Provid er: MELANIA VINCENT Report Released Date/Time: Feb 14, 2022 08:21 AM Reporting Lab: [facility] WSTRN [place] [facility] [address] [facility] [address] Performing Lab: [facility] WSTRN [place] [facility] [address] [facility] [address] UREA NITROGEN 24 7-25 GLUCOSE 230 H [...] VA-TOBACCO NEVER USED [facility] [place] [facility] Encounter Notes: All associated encounter notes This section contains the clinical notes associated to the Encounter. Date/Time Encounter Note(s) Provider Source Jun 14, 2022 07:24 AM PHYSICIAN NOTE: DELMER STALLINGS CNTRL W STRN LOCAL TITLE: NOTE [place] [facility] STANDARD TITLE: PHYSICIAN NOTE DATE OF NOTE: JUN 14, 2022@07:24 ENTRY DATE: JUN 14, 2022@07:24:42 AUTHOR: DELMER STALLINGS EXP COSIGNER: URGENCY: STATUS: COMPLETED CC: Diabetes Type 2 with renal insufficiency, HT N, Hyperlipidemia, Obesity HPI: He has a L great toe callous with an open area. Will be seeing wound center at [facility]. Wearing antoine 2 sensors. Date on reader is [email or web address]. Upload is from today. I have received a note from his retinal special ist (in [place] [facility]), confirming agreement with us ing Sun. No pancreatitis. No familyl hx thyroid CA. [...] peanuts 10. UTI 11. Claudication (SNOMED CT 958950107) 12. Elevated Prostate Specific antigen [psa] 13. Overweight (SNOMED CT 115293282) 14. Low Back Pain * 15. 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 Impotence of organic origin 17. Colorectal Cancer Screening Results Document ed and Reviewed (PV) 18. Simple upper Gastrointestinal Endoscopy 19. Postsurgical Percutaneous Transluminal Coron chet Angioplasty Status 20. Postsurgical Status of Cataract Extraction 21. Diabetes mellitus (SNOMED CT 84518731) 22. MRSA SKIN INFECTION 23. Cocaine abuse, continuous use 24. GERD * 25. Corneal Abrasion 26. Hypertension (SNOMED CT 12701780) 27. Diabetic Neuropathies 28. Onychomycosis * 29. Cataract, PSC/Post Subcapsular 30. Cataract, Cortical (Senile) 31. Background diabetic retinopathy 32. Cyst, ganglion 33. Cervical Radiculopathy 34. Shoulder Pain 35. Hyperlipidemia (SNOMED CT 72015815) 36. Old Myocardial Infarction 37. Depressive Disorder [...] RISK Patient is currently being followed by [place] [facility] cl[facility]. Home Telehealth ([facility]) Referral: Patient [...] -------- [facility] [place] [facility] GABAP[facility]IN [facility] [place] [facility] NO KNOWN ALLERGIES [...] matched to National Drug File at the [facility] and may not include some items such as investigational drugs, compo unds, etc. NOT INCLUDED IN THIS LIST: Medications self-ent ered by the patient into personal health records (i.e. [employer]) ar e NOT included in this list. Non-VA medications documented outside [facility], remote inpatient orders (regardless of status) and [...] NEEDED FOR SEVERE LOW BLOOD SUGAR Rx# [id number] Last Released: 01/26/22 Qty/Days Sup ply: Rx Expiration Date: 04/23/22 Refills Remainin OUTPT INSULIN,ASPART (NOVOLOG PEN) INJ (Status = Pending) INJECT 25 UNITS 100UNIT/ML SUBCUTANEOUSLY THREE TIMES A DAY Login Date: 06/14/22 Qty/Days Supply: Refills Ordered: 2 OUTPT INSULIN,ASPART 100UN/ML KELLY FLEXPEN 3ML (Status = Discontinued) INJECT 25 UNITS SUBCUTANEOUSLY THREE TIMES A DA Y Rx# [id number] Last Released: 01/25/22 Qty/Days Sup ply: Rx Expiration Date: 01/24/23 Refills Remainin OUTPT INSULIN,GLARGINE 100 UNT/ML 3ML SOLOSTAR (Status = Discontinued) INJECT 68 UNITS SUBCUTANEOUSLY ONCE DAILY FOR D IABETES Rx# [id number] Last Released: 01/25/22 Qty/Days Sup ply: Rx [...] ONCE A WEEK SC nurs e will pepper picker Login Date: 06/14/22 Qty/Days Supply: Refills Ordered: 0 OUTPT TADALAFIL 10MG TAB (Status = Active) TAKE ONE TABLET BY MOUTH ONCE DAILY NEEDED Rx# [id number] Last Released: 01/25/22 Qty/Days M[place]onnell pply: 01/13 Rx Expiration Date: 01/24/23 Refills Remainin OUTPT TADALAFIL 10MG TAB (Status = Pending) TAKE ONE TABLET BY MOUTH ONCE DAILY NEEDED Renewed from Rx# [id number] Qty/Days Supply: 01/13 Login Date: 06/14/22 Refills Ordered: 5 Non-VA VALSARTAN 40MG TAB TAKE ONE TABLET BY MOUTH ONCE DAILY Non-VA VITAMIN B COMPLEX CAP,ORAL TAKE BY MOUTH ON SATURDAY SUPPLIES Non-VA ALCOHOL PREP PAD USE 1 PAD TOPICALLY FOUR TIMES A DAY OUTPT GLUCOSE SENSOR FREESTYLE ANTOINE 2 (Status = Active) USE 1 SENSOR DIRECTED EVERY 14 DAYS Rx# [id number] Last Released: 06/02/22 Qty/Days Sup ply: 11/13 Rx Expiration Date: 01/24/23 Refills Remainin OUTPT GLUCOSE SENSOR FREESTYLE ANTOINE 2 (Status = Pending) USE 1 SENSOR DIRECTED EVERY 14 DAYS Renewed from Rx# [id number] Qty/Days Supply: 11/13 Login Date: 06/14/22 Refills Ordered: 11 OUTPT LANCET,SOFTCLIX (Status = ) USE 1 LANCET DIRECTED THREE TIMES A DAY TO T EST BLOOD SUGAR Rx# [id number] Last Released: 04/10/21 Qty/Days Mcconnell pply: 300/90 Rx Expiration Date: 04/07/22 Refills Remainin OUTPT NEEDLE,PEN 32G,4MM (Status = ) USE 1 NEEDLE SUBCUTANEOUSLY FOUR TIMES A DAY FO R USE WITH INSULIN PENS Rx# [id number] Last Released: 04/11/21 Qty/Days Mcconnell pply: 400/90 Rx Expiration Date: 04/07/22 Refills Remainin OUTPT NEEDLE,PEN 32G,4MM (Status = Pending) USE 1 NEEDLE SUBCUTANEOUSLY EVERY 7 DAYS FOR US E WITH PEN DEVICE SC nurse will pepper picker Login Date: 06/14/22 Qty/Days Supply: 100/90 Refills Ordered: 0 OUTPT SKIN BARRIER WIPE TORBOT SKIN TAC (Status = Active) USE 1 WIPE TOPICALLY EVERY 14 DAYS Rx# [id number] Last Released: 01/30/22 Qty/Days Sup ply: 50/90 Rx Expiration Date: 01/27/23 Refills Remainin /jamal/ DELMER STALLINGS MD STAFF PHYSICIAN Signed: 06/14/2022 19:34
--- OUTSIDE RECORDS SUMMARY | 2022-08-25 08:38 | XMS_ITS ---
:1950 Author Organization Department of [facility] rs Address [address] [place] [address] Support Name Relationship Address Phone THANIA BERGER [place] [address] AMELIA BERGER Unavailable [address] [place] [address] Insurance Providers: All historical and current Section [...] AARP INS PRESCRIPT MEDIC Sep 16, PDPIND [id number] [phone] YESSI BERGERZhane PATIENT ION ARE D 2017 [id number] [facility] Jul 17, MEDICAI [id number] [phone] YESSI BERGERZhane PATIENT EALTH 2014 D [id number] 900 IS [place] [place] MEDICARE MEDICARE PART Sep 16, PART A [id number] [phone] Rosmery BERGER PATIENT (WNR) (M) A 2010 00 IS MEDICARE MEDICARE PART Sep 16, PART B [id number] [phone] Rosmery BERGER PATIENT (WNR) (M) B 2010 00 IS MEDICARE MEDICARE PART Sep 16, PART A [id number] Rosmery BERGER PATIENT (WNR) (M) A 2010 XH29 2 IS MEDICARE MEDICARE PART Sep 16, PART B [id number] Rosmery BERGER PATIENT (WNR) (M) B 2010 XH29 2 IS Selected Encounter This section includes the information on record at PR for the Encounter. Date/Time Encounter Type Encounter Description Reason Provider Source Jun 14, 2022 01:53 Outpatient Encounter GENERAL INTERNAL PM MEDICINE IHE Encounter Template Text not used by PR Plan of Treatment: Future Appointments (+ 6 months) and Future Tests (+/- 45 days) The Plan of Treatment section includes future care activities for the patient from all [place] [facility]. This section includes future appointments and future orders which are active, pending orscheduled.Future Appointments This section includes appointments that were scheduled to occur 6 months from the date of the Encounter, up to a maximum of 20 appointments. The data comes from all PR treatment facilities. Appointment Date/Time Appointment Type Appointment Facili ty Name Jul 04, 2022 03:00 PM AMBULATORY - MEDICINE [place] [facility] [place] [facility] Jul 04, 2022 03:15 PM AMBULATORY - MEDICINE [place] [facility] [place] [facility] Jul 05, 2022 01:30 PM AMBULATORY MEDICINE [place] Sep 05, 2022 03:30 PM AMBULATORY [facility] Oct 03, 2022 03:00 PM AMBULATORY - MEDICINE [place] [facility] Oct 30, 2022 03:00 PM AMBULATORY - MEDICINE [place] [facility] [place] [facility] Dec 06, 2022 03:30 PM AMBULATORY - MEDICINE [place] [facility] [place] [facility] Lab Results: +/- 30 days of the encounter This section includes the Chemistry and Hematology Lab Results on record with PR for the patient. Radiology Reports and Pathology Reports are provided separately, in subsequent sections.Lab Results This section contains the Chemistry/Hematology Results that were resulted 30 days before or 30 daysafter the date of the Encounter. Date/Time Source Result Type Result - Unit Interpretation Reference Range Comment Jun 08, 2022 07:39 [place] [facility]L [place] FERRITIN S pecimen Type: SERUM AM HCS No comment enter ed. Ordering Provid er: MELANIA RAMOS Report Released Date/Time: Feb 14, 2022 08:21 AM Reporting Lab: [place] [facility] [place] [facility] [address] [address] Performing Lab: [place] CNTR [place] [facility] [address] [address] FERRITIN 20.5 20-300 Jun 08, 2022 [place] [facility]L W[facility]N IRON & TIBC PANEL Specimen Type : SERUM 07:39 AM [place] [facility] No comment enter ed. Ordering Provid er: MELANIA RAMOS Report Released Date/Time: Feb 14, 2022 08:21 AM Reporting Lab: [place] [facility] [place] [facility] [address] [address] Performing Lab: [place] CNTR [place] [facility] [address] [address] TIBC 381 204-475 IRON 64 40-160 Transferrin Saturation 16.8 L 20.0-50 .0 Jun 08, 2022 [place] CN[facility]L [facility] MICROALBUMIN Specimen Type: URINE 07:39 AM [facility] CREATININE RATIO PANEL No commen t entered. Ordering Provid er: MELANIA RAMOS Report Released Date/Time: Feb 14, 2022 08:21 AM Reporting Lab: [facility] [place] [facility] [address] [address] Performing Lab: [facility] [place] [facility] [address] [address] MICROALBUMIN/CREATININE RATIO 316.8 H 0-29.9 MICROALBUMIN,QUANTITATIVE 24.7 RR U NAVAIL CREATININE URINE 77.97 Jun 08, 2022 07:39 AM [place] LIPID PANEL FASTING Speci men Type: SERUM No comment enter ed. Ordering Provid er: AMBIKA KNIGHT Report Released Date/Time: Jun 06, 2022 03:16 PM Reporting Lab: [facility] [place] [facility] [address] [address] Performing Lab: [place] CNTR [place] [facility] [address] [address] CHOLESTEROL 146 <7-199 TRIGLYCERIDE 238 H 0-150 LDL calculated 67 0-129 CHOL/HDL 4.7 HDL CHOLESTEROL 31 L 40-60 Jun 08, 2022 [place] HEMOGLOBIN A1C Specimen Type: BLOOD 07:39 AM [...] Jun 06, 2022 03:16 PM Reporting Lab: [place] [facility] [place] [facility] [address] [address] Performing Lab: [facility] [place] [facility] [address] [address] HEMOGLOBIN A1C 9.4 H 4.0-5.6 Jun 08, 2022 07:39 AM [place] [facility] CBC Specimen Type: BLOOD HCS No comment enter ed. Ordering Provid er: MELANIA RAMOS Report Released Date/Time: Feb 14, 2022 08:21 AM Reporting Lab: [facility] [place] [facility] [address] [address] Performing Lab: [place] [facility] [place] [facility] [address] [address] WBC 7.26 4.50-11.00 RBC 5.31 4.23-5.66 HGB 13.9 12.8-17 HCT 43.1 39.2-50.4 MCV 81.2 L 82-99 MCHC 32.3 30.8-35.1 PLT 280 140-360 RDW-CV 15.5 12.0-16.0 MCH 26.2 26.2-32.6 Jun 08, 2022 [facility] BASIC METABOLIC PANEL Specimen Type: SERUM 07:39 AM [place] [facility] (non-fasting) No comment enter ed. Ordering Provid er: MELANIA RAMOS Report Released Date/Time: Feb 14, 2022 08:21 AM Reporting Lab: [facility] [place] [facility] [address] [address] Performing Lab: [place] CNTRL [place] [facility] [address] [address] UREA NITROGEN 24 7-25 GLUCOSE 230 H 65-100 SODIUM 136 135-145 POTASSIUM 5.2 H 3.5-5.0 CHLORIDE 104 100-110 CO2 23 20-30 CREATININE, Serum 1.66 H 0.50-1.40 eGFR(CKD-EPI 2020) 44 L >60 Jun 08, 2022 07:39 AM [place] BASIC METABOLIC PANEL Spe cimen Type: SERUM (fasting) No comment enter ed. Ordering Provid er: AMBIKA KNIGHT Report Released Date/Time: Jun 06, 2022 03:16 PM Reporting Lab: [facility] [address] [address] Performing Lab: [facility] [address] [address] UREA NITROGEN 24 7-25 GLUCOSE 230 H [...] dy Source Pressure Rate Mass Index Jun 14 97.2 F 78 126/72 18 /min 97 % 5 68 in 234.6 36 PR 2021 01:45 /min mm[Hg] lb CNTRL PM [facility] [place] [facility] Social History: Smoking Status (Most current) and Tobacco Use (All prior to encounter date) This section includes the most current, and the historical, smoking and tobacco-related health factors from the PR facility where the Encounter took place.Current Smoking Status This section includes the most current smoking, or tobacco-related health factor, from the PR facility where the Encounter took place. Date/Time Current Smoking Status Comment Facility May 11, 2021 01:18 PM VA-TOBACCO NEVER USED PR C NTRL WSTRN [facility] Encounter Notes: All associated encounter notes This section contains the clinical notes associated to the Encounter. Date/Time Encounter Note(s) Provider Source Jun 14, 2022 01:53 PM DIABETOLOGY NOTE: STONE CASTRO PR CNTRL WSTRN LOCAL TITLE: INSULIN PUMP/CGM DOWNLOAD (T) [facility] STANDARD TITLE: DIABETOLOGY NOTE DATE OF [...]
--- OUTSIDE RECORDS SUMMARY | 2022-08-25 08:38 | XMS_ITS ---
:1950 Author Organization Department of [facility] rs Address [address] [place] [address] Support Name Relationship Address Phone CELINE THANIA Rosmery Unavailable [address] [place] [address] [place] [address] CELINEAMELIA Unavailable [address] [place] [address] Insurance Providers: All historical and current Section [...] AARP INS PRESCRIPT MEDIC Sep 16, PDPIND [id number] [phone] YESSI BERGERZhane PATIENT ION ARE D 2017 [id number] IS MEDICAID MEDICAID [facility] Jul 17, MEDICAI [id number] [phone] DAYAMI BERGER PATIENT EALTH 2014 D [id number] 900 IS [place] MEDICARE MEDICARE PART Sep 16, PART A [id number] [phone] Rosmery BERGER PATIENT (WNR) (M) A 2010 00 IS MEDICARE MEDICARE PART Sep 16, PART B [id number] [phone] Rosmery BERGER PATIENT (WNR) (M) B 2010 00 IS MEDICARE MEDICARE PART Sep 16, PART A [id number] Rosmery BERGER PATIENT (WNR) (M) A 2010 XH29 2 IS MEDICARE MEDICARE PART Sep 16, PART B [id number] Rosmery BERGER PATIENT (WNR) (M) B 2010 [...] activities for the patient from all [place] [facility] This section includes future appointments and future orders which are active, pending orscheduled.Future Appointments This section includes appointments that were scheduled to occur 6 months from the date of the Encounter, up to a maximum of 20 appointments. The data comes from all [facility]. Appointment Date/Time Appointment Type Appointment Facili ty Name Jun 14, 2022 01:30 PM [facility]UL[place] [place] [place] [facility] Jul 04, 2022 03:00 PM [facility] [place] [facility] Jul 04, 2022 03:15 PM [facility] [place] [facility] Jul 05, 2022 01:30 PM [facility] Sep 05, 2022 03:30 PM AMBULATORY MEDICINE [place] Oct 03, 2022 03:00 PM AMBULATORY [place]ICINE [place] [facility] Oct 30, 2022 03:00 PM [facility] Active, Pending, and Scheduled Orders This section includes a listing of several types of active, pending, and scheduled orders, including clinic medications orders, diagnostic test orders, procedure orders and consult orders; where the start date of the order is 45 days before the date of the Encounter or 45 days after the date of the Encounter. The data comes from all [facility]. Test Date/Time Test Type Test Details Facility Name Apr 28, 2022 12:00 Laboratory - LIPID PANEL FASTING [place] CNTRL [place] AM Chemistry Order BLOOD (SST-SERUM) SP [place] [facility] Apr 28, 2022 12:00 Laboratory - MICROALBUMIN CREATININE [place] CN TRL WSTR[place] AM Chemistry Order RATIO PANEL URINE [place] [facility] (RANDOM) SP Apr 28, 2022 12:00 Laboratory - BASIC METABOLIC PANEL [place] CNTR L [place] AM Chemistry Order (fasting) BLOOD [place] [facility] (SST-SERUM) Apr 28, 2022 12:00 Laboratory - HEMOGLOBIN A1C PANEL [place] CN[facility]L [place] AM Chemistry Order BLOOD (LAV[facility]BLOOD) [facility] Lab Results: +/- 30 days of [...] Reference Range Comment Jun 08, 2022 07:39 [place] CN[facility] FERRITIN S pecimen Type: SERUM AM HCS No comment enter ed. Ordering Provid er: MELANIA RAMOS Report Released Date/Time: Feb 14, 2022 08:21 AM Reporting Lab: [place] CNTR [place] [facility] [address] [address] Performing Lab: [place] [facility] [address] [address] [address] FERRITIN 20.5 20-300 Jun 08, 2022 [facility] MICROALBUMIN Specimen Type: URINE 07:39 AM [facility] CREATININE RATIO PANEL No commen t entered. Ordering Provid er: MELANIA RAMOS Report Released Date/Time: Feb 14, 2022 08:21 AM Reporting Lab: [place] [facility] [facility] [address] [facility] [address] Performing Lab: [place] [facility] [facility] [address] [facility] [address] MICROALBUMIN/CREATININE RATIO 316.8 H 0-29.9 MICROALBUMIN,QUANTITATIVE 24.7 RR U [place]AIL CREATININE URINE 77.97 Jun 08, 2022 [place] CN[facility] IRON & TIBC PANEL Specimen Type : SERUM 07:39 AM [place] [facility] No comment enter ed. Ordering Provid er: MELANIA RAMOS Report Released Date/Time: Feb 14, 2022 08:21 AM Reporting Lab: [place] [facility] [facility] [address] [facility] [address] Performing Lab: [place] CNTR [place] [facility] [address] [facility] [address] TIBC 381 204-475 IRON 64 40-160 Transferrin Saturation 16.8 L 20.0-50 .0 Jun 08, 2022 [facility] BASIC METABOLIC PANEL Specimen Type: SERUM 07:39 AM [facility] (non-fasting) No comment enter ed. Ordering Provid er: MELANIA RAMOS Report Released Date/Time: Feb 14, 2022 08:21 AM Reporting Lab: [facility] [address] [facility] [address] Performing Lab: [facility] [address] [address] UREA NITROGEN 24 7-25 GLUCOSE 230 H 65-100 SODIUM 136 135-145 POTASSIUM 5.2 H 3.5-5.0 CHLORIDE 104 100-110 CO2 23 20-30 CREATININE, Serum 1.66 H 0.50-1.40 eGFR(CKD-EPI 2020) 44 L >60 Jun 08, 2022 07:39 AM [place] LIPID PANEL FASTING Speci men Type: SERUM No comment enter ed. Ordering Provid er: AMBIKA KNIGHT Report Released Date/Time: Jun 06, 2022 03:16 PM Reporting Lab: [facility] [address] [address] [facility] [address] Performing Lab: [facility] [address] [address] CHOLESTEROL 146 <7-199 TRIGLYCERIDE 238 H 0-150 LDL calculated 67 0-129 CHOL/HDL 4.7 HDL CHOLESTEROL 31 L 40-60 Jun 08, 2022 [place] HEMOGLOBIN A1C Specimen Type: BLOOD 07:39 AM [...] Jun 06, 2022 03:16 PM Reporting Lab: [facility] [address] [address] Performing Lab: [address] [place] [address] HEMOGLOBIN A1C 9.4 H 4.0-5.6 Jun 08, 2022 07:[address] [facility] WSTRN [place] CBC Specimen Type: BLOOD HCS No comment enter ed. Ordering Provid er: MELANIA RAMOS Report Released Date/Time: Feb 14, 2022 08:21 AM Reporting Lab: [facility] [place] [facility] [address] [address] Performing Lab: [facility] [place] [facility] [address] [address] WBC 7.26 4.50-11.00 RBC 5.31 4.23-5.66 HGB 13.9 12.8-17 HCT 43.1 39.2-50.4 MCV 81.2 L 82-99 MCHC 32.3 30.8-35.1 PLT 280 140-360 RDW-CV 15.5 12.0-16.0 MCH 26.2 26.2-32.6 Jun 08, 2022 07:39 AM [place] BASIC METABOLIC PANEL Spe cimen Type: SERUM (fasting) No comment enter ed. Ordering Provid er: AMBIAK KNIGHT Report Released Date/Time: Jun 06, 2022 03:16 PM Reporting Lab: [facility] [place] [facility] [address] [facility] [address] Performing Lab: [facility] [place] [facility] [address] [facility] [address] UREA NITROGEN 24 7-25 GLUCOSE 230 H [...] COMPLETED <====Click to Start Advanced Medical Support [place] presents to the Primary Care clinic with the following request: [ ]Medication Renewal/Refill [ ]Consultation with Team RN [ X ]Symptoms [ ]Other The states they are: [ X ]Waiting [ ]Not Waiting Yes Walk in visit scheduled with PACT Nurse [ X ] At this encounter the 's demographi cs were verified. [ X ] At this encounter the [place]'s Insurance information was verified. [ X ] [...] like looked at. /jamal/ ODIN MORLEY [employer] Signed: 05/14/2022 13:59 Receipt Acknowledged By: * AWAITING SIGNATURE * FAIZA SAUCEDO * AWAITING SIGNATURE * SABRA VAUGHN * AWAITING SIGNATURE * RONAN FOX
--- OUTSIDE RECORDS SUMMARY | 2022-08-25 08:39 | XMS_ITS ---
:1950 Author Organization Department of [facility] rs Address [address] [place] [address] Support Name Relationship Address Phone THANIA BERGER Unavailable [address] [place] [address] [place] [address] CELINEAMELIA Unavailable [address] [place] [address] Insurance Providers: All historical and current Section [...] AARP INS PRESCRIPT MEDIC Sep 16, PDPIND [id number] [phone] DAYAMI BERGER PATIENT ION ARE D 2017 [id number] 9 IS MEDICAID MEDICAID [facility] Jul 17, MEDICAI [id number] [phone] DAYAMI BERGER PATIENT EALTH 2014 D [id number] 900 IS [place] MEDICARE MEDICARE PART Sep 16, PART A [id number] [phone] Rosmery BERGER PATIENT (WNR) (M) A 2010 00 IS MEDICARE MEDICARE PART Sep 16, PART B [id number] [phone] Rosmery BERGER PATIENT (WNR) (M) B 2010 00 IS MEDICARE MEDICARE PART Sep 16, PART A [id number] Rosmery BERGER PATIENT (WNR) (M) A 2010 XH29 2 IS MEDICARE MEDICARE PART Sep 16, PART B [id number] Rosmery BERGER PATIENT (WNR) (M) B 2010 XH29 2 IS Selected Encounter This section includes the information on record at OR for the Encounter. Date/Time Encounter Type Encounter Reason Provider Source Description Jul 04, 2022 OFFICE O/P EST GENERAL INTERNAL ICD-10-CM E11.9 MILEY CASTRO 03:15 PM [facility] MEDICINE Type 2 diabetes mellitus without complications with Provider Comments: Diabetes mellitus ([facility] [id number]) IHE Encounter Template Text not used by [place] Assessments - Encounter Diagnoses This section includes the primary and secondary diagnoses documented for the Encounter. Date/Time Primary/Secondary Diagnosis Name Provider Source Diagnosis Jul 04, 2022 PRIMARY Type 2 diabetes [facility]44 PM mellitus without [place] [facility] complications Plan of Treatment: Future Appointments (+ 6 months) and Future Tests (+/- 45 days) The Plan of Treatment section includes future care activities for the patient from all [place] treatmentfacilities. This section includes future appointments and future orders which are active, pending orscheduled.Future Appointments This section includes appointments that were scheduled to occur 6 months from the date of the Encounter, up to a maximum of 20 appointments. The data comes from all [place] treatment facilities. Appointment Date/Time Appointment Type Appointment Facili ty Name Jul 05, 2022 01:30 PM AMBULATORY - MEDICINE [place] Sep 05, 2022 03:[address] [facility] MEDICINE [place] Oct 03, 2022 03:00 PM [facility] Oct 30, 2022 03:00 PM [facility] Dec 06, 2022 03:30 PM [facility] Lab Results: +/- 30 days [...] Reference Range Comment Jun 08, 2022 07:39 [place] CNTR WSTR[place] FERRITIN S pecimen Type: SERUM AM [facility] No comment enter ed. Ordering Provid er: MELANIA RAMOS Report Released Date/Time: Feb 14, 2022 08:21 AM Reporting Lab: [facility] [address] Performing Lab: [facility] [place] [facility] [address] [facility] [address] FERRITIN 20.5 20-300 Jun 08, 2022 [place] [facility] MICROALBUMIN Specimen Type: URINE 07:39 AM [place] [facility] CREATININE RATIO PANEL No commen t entered. Ordering Provid er: MELANIA RAMOS Report Released Date/Time: Feb 14, 2022 08:21 AM Reporting Lab: [facility] [place] [facility] [address] [facility] [address] Performing Lab: [facility] [place] [facility] [address] [facility] [address] MICROALBUMIN/CREATININE RATIO 316.8 H 0-29.9 MICROALBUMIN,QUANTITATIVE 24.7 RR U NAVAIL CREATININE URINE 77.97 Jun 08, 2022 [facility] IRON & TIBC PANEL Specimen Type : SERUM 07:39 AM [place] [facility] No comment enter ed. Ordering Provid er: MELANIA RAMOS Report Released Date/Time: Feb 14, 2022 08:21 AM Reporting Lab: [facility] [place] [facility] [address] [facility] [address] Performing Lab: [facility] [place] [facility] [address] [facility] [address] TIBC 381 204-475 IRON 64 40-160 Transferrin Saturation 16.8 L 20.0-50 .0 Jun 08, 2022 [place] [facility] BASIC METABOLIC PANEL Specimen Type: SERUM 07:39 AM [place] [facility] (non-fasting) No comment enter ed. Ordering Provid er: MELANIA RAMOS Report Released Date/Time: Feb 14, 2022 08:21 AM Reporting Lab: [facility] [place] [facility] [address] [facility] [address] Performing Lab: [facility] [place] [facility] [address] [facility] [address] UREA NITROGEN 24 7-25 GLUCOSE 230 H 65-100 SODIUM 136 135-145 POTASSIUM 5.2 H 3.5-5.0 CHLORIDE 104 100-110 CO2 23 20-30 CREATININE, Serum 1.66 H 0.50-1.40 eGFR(CKD-EPI 2020) 44 L >60 Jun 08, 2022 07:39 AM [place] LIPID PANEL FASTING Speci men Type: SERUM No comment enter ed. Ordering Provid er: AMBIKA KNIGHT Report Released Date/Time: Jun 06, 2022 03:16 PM Reporting Lab: [facility] [place] [facility] [address] [facility] [address] Performing Lab: [facility] [place] [facility] [address] [facility] [address] CHOLESTEROL 146 <7-199 TRIGLYCERIDE 238 H 0-150 LDL calculated 67 0-129 CHOL/HDL 4.7 HDL CHOLESTEROL 31 L 40-60 Jun 08, 2022 [place] HEMOGLOBIN A1C Specimen Type: BLOOD 07:39 AM [...] Jun 06, 2022 03:16 PM Reporting Lab: [facility] [place] [facility] [address] [facility] [address] Performing Lab: [facility] [place] [facility] [address] [facility] [address] HEMOGLOBIN A1C 9.4 H 4.0-5.6 Jun 08, 2022 07:39 AM [facility] [place] CBC Specimen Type: BLOOD HCS No comment enter ed. Ordering Provid er: MELANIA RAMOS Report Released Date/Time: Feb 14, 2022 08:21 AM Reporting Lab: [facility] [place] [facility] [address] [facility] [address] Performing Lab: [facility] [place] [facility] [address] [facility] [address] WBC 7.26 4.50-11.00 RBC 5.31 4.23-5.66 HGB 13.9 12.8-17 HCT 43.1 39.2-50.4 MCV 81.2 L 82-99 MCHC 32.3 30.8-35.1 PLT 280 140-360 RDW-CV 15.5 12.0-16.0 MCH 26.2 26.2-32.6 Jun 08, 2022 07:39 AM [place] BASIC METABOLIC PANEL Spe cimen Type: SERUM (fasting) No comment enter ed. Ordering Provid er: AMBIKA KNIGHT Report Released Date/Time: Jun 06, 2022 03:16 PM Reporting Lab: [facility] [address] [facility] [address] Performing Lab: [facility] [address] [facility] [address] UREA NITROGEN 24 7-25 GLUCOSE 230 H [...] 24 /min 98 % 237 lb 36 OR 2021 03:12 /min mm[Hg] CNTRL WSTRN [facility] Social History: Smoking Status (Most current) [...] 11, 2021 01:18 PM VA-TOBACCO NEVER USED OR C NTRL WSTRN [facility] Encounter Notes: All associated encounter notes This section contains the clinical notes associated to the Encounter. Date/Time Encounter Note(s) Provider Source Jul 04, 2022 03:38 PM NURSING OUTPATIENT NOTE: [facility] TITLE: NURSING/SPECIALTY CLINIC NOTE [facility] STANDARD TITLE: NURSING OUTPATIENT NOTE DATE OF [...]
--- OUTSIDE RECORDS SUMMARY | 2022-08-25 08:39 | XMS_ITS ---
:1950 Author Organization Department of [facility] rs Address [address] [place] [address] Support Name Relationship Address Phone THANIA CHRISTIANSON Unavailable [address] [place] [address] AMELIA CHRISTIANSON Unavailable [address] [place] [address] Insurance Providers: All historical and current Section [...] AARP INS PRESCRIPT MEDIC Sep 16, PDPIND [id number] [phone] DAYAMI CHRISTIANSON PATIENT ION ARE D 2017 [id number] IS MEDICAID MEDICAID [facility] Jul 17, MEDICAI [id number] [phone] DAYAMI CHRISTIANSON PATIENT EALTH 2014 D [id number] IS STAND CHRISTOPHER MEDICARE MEDICARE PART Sep 16, PART A [id number] [phone] Rosmery CHRISTIANSON PATIENT (WNR) (M) A 2010 00 IS MEDICARE MEDICARE PART Sep 16, PART B [id number] [phone] Rosmery CHRISTIANSON PATIENT (WNR) (M) B 2010A 00 IS MEDICARE MEDICARE PART Sep 16, PART A [id number] Rosmery CHRISTIANSON PATIENT (WNR) (M) A 2010 XH29 2 IS MEDICARE MEDICARE PART Sep 16, PART B [id number] Rosmery CHRISTIANSON PATIENT (WNR) (M) B 2010 XH29 2 IS Selected Encounter This section includes the information on record at [place] for the Encounter. Date/Time Encounter Type Encounter Reason Provider Source Description Jun 19, 2022 CONT GLUC MNTR ENDOCRINOLOGY ICD-10-CM E11.8 AMIRA STALLINGS E 08:23 AM ANALYSIS I&R Type 2 diabetes mellitus with unspecified complications with Provider Comments: Type II diabetes mellitus ([facility] [id number]) IHE Encounter Template Text not used by [facility] Assessments - Encounter Diagnoses This section includes the primary and secondary diagnoses documented for the Encounter. Date/Time Primary/Secondary Diagnosis Name Provider Source Diagnosis Jun 19, 2022 PRIMARY Type 2 diabetes DELMER STALLINGS [facility] RN 08:30 AM mellitus with [facility] unspecified complications Plan of [...] - MEDICINE [place] [facility] [place] [facility] Jul 04, 2022 03:15 PM AMBULATORY MEDICINE [place] [facility] [place] [facility] Jul 05, 2022 01:30 PM AMBULATORY [facility] Sep 05, 2022 03:30 PM [facility] Oct 03, 2022 03:00 PM [facility]UL[facility]ORY [facility] [place] [facility] Oct 30, 2022 03:00 PM AMBULATORY MEDICINE [place] [facility] [place] [facility] Dec 06, 2022 03:30 PM [facility] [place] [facility] Lab Results: +/- 30 days [...] Reference Range Comment Jun 08, 2022 07:39 [place] [facility] [place] FERRITIN S pecimen Type: SERUM AM [facility] No comment enter ed. Ordering Provid er: MELANIA RAMOS Report Released Date/Time: Feb 14, 2022 08:21 AM Reporting Lab: [facility] [place] [facility] [address] [facility] [address] Performing Lab: [facility] [place] [facility] [address] [facility] [address] FERRITIN 20.5 20-300 Jun 08, 2022 [facility] IRON & TIBC PANEL Specimen Type : SERUM 07:39 AM [facility] No comment enter ed. Ordering Provid er: MELANIA RAMOS Report Released Date/Time: Feb 14, 2022 08:21 AM Reporting Lab: [facility] [place] [facility] [address] [facility] [address] Performing Lab: [facility] [place] [facility] [address] [facility] [address] TIBC 381 204-475 IRON 64 40-160 Transferrin Saturation 16.8 L 20.0-50 .0 Jun 08, 2022 [facility] MICROALBUMIN Specimen Type: URINE 07:39 AM [facility] [facility] CREATININE RATIO PANEL No commen t entered. Ordering Provid er: MELANIA RAMOS Report Released Date/Time: Feb 14, 2022 08:21 AM Reporting Lab: [facility] [place] [facility] [address] [facility] [address] Performing Lab: [facility] [place] [facility] [address] [facility] [address] MICROALBUMIN/CREATININE RATIO 316.8 H 0-29.9 MICROALBUMIN,QUANTITATIVE 24.7 RR U [place] CREATININE URINE 77.97 Jun 08, 2022 [facility] BASIC METABOLIC PANEL Specimen Type: SERUM 07:39 AM [facility] (non-fasting) No comment enter ed. Ordering Provid er: MELANIA RAMOS Report Released Date/Time: Feb 14, 2022 08:21 AM Reporting Lab: [facility] [place] [facility] [address] [facility] [address] Performing Lab: [facility] [place] [facility] [address] [facility] [address] UREA NITROGEN 24 7-25 GLUCOSE 230 H 65-100 SODIUM 136 135-145 POTASSIUM 5.2 H 3.5-5.0 CHLORIDE 104 100-110 CO2 23 20-30 CREATININE, Serum 1.66 H 0.50-1.40 eGFR(CKD-EPI 2020) 44 L >60 Jun 08, 2022 07:39 AM [place] LIPID PANEL FASTING Speci men Type: SERUM No comment enter ed. Ordering Provid er: AMBIKA KNIGHT Report Released Date/Time: Jun 06, 2022 03:16 PM Reporting Lab: [place] CNTR [facility] [place] [facility] [address] [facility] [address] Performing Lab: [facility]N [place] [facility] [address] [facility] [address] CHOLESTEROL 146 <7-199 TRIGLYCERIDE 238 H 0-150 LDL calculated 67 0-129 CHOL/HDL 4.7 HDL CHOLESTEROL 31 L 40-60 Jun 08, 2022 [place] HEMOGLOBIN A1C Specimen Type: BLOOD 07:39 AM [...] 2022 03:16 PM Reporting Lab: [facility] [place] [facility] [address] [facility] [address] Performing Lab: [facility] [place] [facility] [address] [facility] [address] HEMOGLOBIN A1C 9.4 H 4.0-5.6 Jun 08, 2022 07:39 AM [facility] [place] CBC Specimen Type: BLOOD HCS No comment enter ed. Ordering Provid er: MELANIA RAMOS Report Released Date/Time: Feb 14, 2022 08:21 AM Reporting Lab: [place] [facility] [facility] [address] [facility] [address] Performing Lab: [place] [facility] [facility] [address] [facility] [address] WBC 7.26 4.50-11.00 RBC 5.31 4.23-5.66 HGB 13.9 12.8-17 HCT 43.1 39.2-50.4 MCV 81.2 L 82-99 MCHC 32.3 30.8-35.1 PLT 280 140-360 RDW-CV 15.5 12.0-16.0 MCH 26.2 26.2-32.6 Jun 08, 2022 07:39 AM [place] BASIC METABOLIC PANEL Spe cimen Type: SERUM (fasting) No comment enter ed. Ordering Provid er: AMBIKA KNIGHT Report Released Date/Time: Jun 06, 2022 03:16 PM Reporting Lab: [address] [address] [facility]: [facility] [address] [address] UREA NITROGEN 24 7-25 GLUCOSE 230 H [...] PM VA-TOBACCO NEVER USED [place] C NTRL [facility] Encounter Notes: All associated encounter notes This section contains the clinical notes associated to the Encounter. Date/Time Encounter Note(s) Provider Source Jun 19, 2022 08:23 AM PHYSICIAN NOTE: DELMER STALLINGS CNTRL W STRN LOCAL TITLE: MD [facility] STANDARD TITLE: PHYSICIAN NOTE DATE OF [...] jim tus insulin. CPT code for interpretation 55593 /es/ DELMER STALLINGS MD STAFF PHYSICIAN Signed: 06/19/2022 08:30
--- OUTSIDE RECORDS SUMMARY | 2022-08-25 08:39 | XMS_ITS ---
:1950 Author Organization Department of [facility] rs Address [address] [place] [address] Support Name Relationship Address Phone GONZÁLEZ BERGERSON Rosmery Unavailable [address] [place] [address] [place] [address] AMELIA BERGER Unavailable [address] [place] [address] Insurance Providers: All historical and current Section [...] AARP INS PRESCRIPT MEDIC Sep 16, PDPIND [id number] [phone] YESSI BERGERZhane PATIENT ION ARE D 2017 251 9 IS MEDICAID MEDICAID [facility] Jul 17, MEDICAI [id number] [phone] DAYAMI BERGER PATIENT EALTH 2014 D [id number] IS STAND CHRISTOPHER MEDICARE MEDICARE PART Sep 16, PART A [id number] [phone] Rosmery BERGER PATIENT (WNR) (M) A 2010 00 IS MEDICARE MEDICARE PART Sep 16, PART B [id number] [phone] Rosmery BERGER PATIENT (WNR) (M) B 2010A 00 IS MEDICARE MEDICARE PART Sep 16, PART A [id number] Rosmery BERGER PATIENT (WNR) (M) A 2010 XH29 2 IS MEDICARE MEDICARE PART Sep 16, PART B [id number] Rosmery BERGER PATIENT (WNR) (M) B 2010 XH29 2 IS Selected Encounter This section includes the information on record at MD for the Encounter. Date/Time Encounter Type Encounter Reason Provider Source Description Jul 04, 2022 OFFICE O/P EST RENAL/NEPHROL(EXCE ICD-10-CM JESSICA RAMOS IRL 03:00 PM MOD 30-39 MIN PT DIALYSIS) N18.31 Chronic EY A kidney disease, stage 3a with Provider Comments: Chronic kidney disease, stage 3a IHE Encounter Template Text not used by [facility] Assessments - Encounter Diagnoses This section includes the primary and secondary diagnoses documented for the Encounter. Date/Time Primary/Secondary Diagnosis Name Provider Source Diagnosis Jul 04, 2022 PRIMARY Chronic kidney LISA RAMOS MD CNTRL WS TRN 03:36 PM disease, stage 3a [facility] [facility] Jul 04, 2022 SECONDARY Anemia in chronic LISA RAMOS MD CNTRL WSTRN 03:36 PM kidney disease EY A [place] [facility] Jul 04, 2022 SECONDARY Hyperlipidemia, LISA RAMOS MD CNTRL W STRN 03:36 PM unspecified EY A [facility] Jul 04, 2022 SECONDARY Hypotension, LISA RAMOS MD CNTRL WSTR N 03:36 PM unspecified EY A [facility] Jul 04, 2022 SECONDARY long term care pharmacist LISA RAMOS MD CNTRL WSTR N 03:36 PM (current) use of EY A [facility] insulin Jul 04, 2022 SECONDARY Obesity, LISA RAMOS MD CNTRL WSTR N 03:36 PM unspecified EY A [facility] Jul 04, 2022 SECONDARY Type 2 diabetes LISA RAMOS MD CNTRL W STRN 03:36 PM mellitus w EY A [place] [facility] diabetic chronic kidney disease Plan of Treatment: Future Appointments (+ 6 months) and Future Tests (+/- 45 days) The Plan of Treatment section includes future care activities for the patient from all MD treatmentfacilities. This section includes future appointments and future orders which are active, pending orscheduled.Future Appointments This section includes appointments that were scheduled to occur 6 months from the date of the Encounter, up to a maximum of 20 appointments. The data comes from all MD treatment facilities. Appointment Date/Time Appointment Type Appointment Facili ty Name Jul 05, 2022 01:30 PM [facility] - MEDICINE [place] Sep 05, 2022 03:30 PM AMBULATORY MEDICINE [place] Oct 03, 2022 03:00 PM AMBULATORY - MEDICINE [place] [facility] [place] [facility] Oct 30, 2022 03:00 PM AMBULATORY - MEDICINE MD [facility] [facility] Dec 06, 2022 03:30 PM AMBULATORY - MEDICINE MD [facility] [place] [facility] Lab Results: +/- 30 days of [...] Feb 14, 2022 08:21 AM Reporting Lab: MD [facility] [place] [facility] [address] [facility] [address] Performing Lab: MD CNTRL [facility] [place] [facility] [address] [facility] [address] FERRITIN 20.5 20-300 Jun 08, 2022 MD CNTRL WSTRN IRON & TIBC PANEL Specimen Type : SERUM 07:39 AM [place] [facility] No comment enter ed. Ordering Provid er: MELANIA RAMOS Report Released Date/Time: Feb 14, 2022 08:21 AM Reporting Lab: MD [facility] [place] [facility] [address] [facility] [address] Performing Lab: MD CN[facility]L [facility] [place] [facility] [address] [facility] [address] TIBC 381 204-475 IRON 64 40-160 Transferrin Saturation 16.8 L 20.0-50 .0 Jun 08, 2022 [facility] MICROALBUMIN Specimen Type: URINE 07:39 AM [place] [facility] CREATININE RATIO PANEL No commen t entered. Ordering Provid er: MELANIA RAMOS Report Released Date/Time: Feb 14, 2022 08:21 AM Reporting Lab: MD [facility] [place] [facility] [address] [facility] [address] Per[facility] [place] [facility] [address] [facility] [address] MICROALBUMIN/CREATININE RATIO 316.8 H 0-29.9 MICROALBUMIN,QUANTITATIVE 24.7 RR U [place] CREATININE URINE 77.97 Jun 08, 2022 [facility] BASIC METABOLIC PANEL Specimen Type: SERUM 07:39 [facility] No comment enter ed. Ordering Provid er: MELANIA RAMOS Report Released Date/Time: Feb 14, 2022 08:21 AM Reporting Lab: [facility] [place] [facility] [address] [facility] [address] Performing Lab: [facility] [address] [facility] [address] UREA NITROGEN 24 7-25 GLUCOSE 230 H 65-100 SODIUM 136 135-145 POTASSIUM 5.2 H 3.5-5.0 CHLORIDE 104 100-110 CO2 23 20-30 CREATININE, Serum 1.66 H 0.50-1.40 eGFR(CKD-EPI 2020) 44 L >60 Jun 08, 2022 [place] HEMOGLOBIN A1C Specimen Type: BLOOD 07:39 AM [...] Jun 06, 2022 03:16 PM Reporting Lab: [facility] [address] [facility] [address] Performing Lab: [facility] [address] [facility] [address] HEMOGLOBIN A1C 9.4 H 4.0-5.6 Jun 08, 2022 07:39 AM [place] LIPID PANEL FASTING Speci men Type: SERUM No comment enter ed. Ordering Provid er: AMBIKA KNIGHT Report Released Date/Time: Jun 06, 2022 03:16 PM Reporting Lab: [facility] [address] [facility] [address] Performing Lab: MD CNTRL [facility] [facility] [address] [facility] [address] CHOLESTEROL 146 <7-199 TRIGLYCERIDE 238 H 0-150 LDL calculated 67 0-129 CHOL/HDL 4.7 HDL CHOLESTEROL 31 L 40-60 Jun 08, 2022 07:39 AM [place] [facility] [place] [facility] Specimen Type: BLOOD HCS No comment enter ed. Ordering Provid er: MELANIA RAMOS Report Released Date/Time: Feb 14, 2022 08:21 AM Reporting Lab: [place] [facility] [facility] [address] [facility] [address] Performing Lab[facility] [place] [facility] [address] [facility] [address] WBC 7.26 4.50-11.00 RBC 5.31 4.23-5.66 HGB 13.9 12.8-17 HCT 43.1 39.2-50.4 MCV 81.2 L 82-99 MCHC 32.3 30.8-35.1 PLT 280 140-360 RDW-CV 15.5 12.0-16.0 MCH 26.2 26.2-32.6 Jun 08, 2022 07:39 AM [place] BASIC METABOLIC PANEL Spe cimen Type: SERUM (fasting) No comment enter ed. Ordering Provid er: AMBIKA KNIGHT Report Released Date/Time: Jun 06, 2022 03:16 PM Reporting Lab: [facility] [place] [facility] [address] [facility] [address] Performing Lab: [place] CNTRL [facility] [place] [facility] [address] [facility] [address] UREA NITROGEN 24 7-25 GLUCOSE 230 H [...] Aleksander dy Source Pressure Rate Mass Index Oct 19, 97.7 F 90 120/66 24 /min 98 % 237 lb 36 MD 2021 03:12 /min mm[Hg] CN[facility] PM [place] [facility] Social History: Smoking Status (Most current) and Tobacco Use (All prior to encounter date) This section includes the most current, and the historical, smoking and tobacco-related health factors from the MD facility where the Encounter took place.Current Smoking Status This section includes the most current smoking, or tobacco-related health factor, from the MD facility where the Encounter took place. Date/Time Current Smoking Status Comment Facility May 11, 2021 01:18 PM VA-TOBACCO NEVER USED MD C NTRL [place] [facility] Encounter Notes: All associated encounter notes This section contains the clinical notes associated to the Encounter. Date/Time Encounter Note(s) Provider Source Jul 04, 2022 11:47 NEPHROLOGY E & M NOTE: MELANIA RAMOS MD CNTRL WSTRN LOCAL TITLE: [facility] T[facility]: NEPHROLOGY E & M [...] 25MG BY M OUTH ACTIVE TWICE DAILY 7) Non-VA [facility] HCL [...] Because of his low GFR, the pat ient's Metformin has been stopped. The patient's urine [...] diabetes is be ing managed but his learning consultant. #4. Hyperlipidemia: The patient's lipid studies this [...] available test results were reviewed with fredy ruizan. Medication Reconciliation: Outpatient: Has the patient been taking medications as docu mented in the EMLR? YES: The patient has been taking medications as documented in the EMLR. Essential Medication List for Review used to co mplete this medication reconciliation. INCLUDED IN THIS LIST: Alphabetical list of act joe outpatient prescriptions dispensed from this [facility] (local) an d dispensed from another MD or DoD facility (remote) as well as [...] or non-VA provider. /jamal/ MELANIA RAMOS M.D. BUSINESS CONTINUITY COORDINATOR VEHICLE CONTROLS ENGINEER Signed: 07/04/2022 15:36
--- OUTSIDE RECORDS SUMMARY | 2022-08-25 08:40 | XMS_ITS | Encounter Summary ---
:1950 Author Organization Department of [facility] rs Address [address] [place] [id number] Support Name Relationship Address Phone THANIA BERGER Unavailable [address] [place] [address] [place] [address] AMELIA BERGER Unavailable [address] [place] [address] Insurance Providers: All historical and current Section [...] AARP INS PRESCRIPT MEDIC Sep 16, PDPIND [id number] [phone] YESSI BERGERZhane PATIENT ION ARE D 2017 [id number] IS MEDICAID MEDICAID [facility] Jul 17, MEDICAI [id number] [id number] DAYAMI BERGER PATIENT EALTH 2014 D [id number] IS [place]AND [place] MEDICARE MEDICARE PART Sep 16, PART A [id number] [phone] Rosmery BERGER PATIENT (WNR) (M) A 2010 00 IS MEDICARE MEDICARE PART Sep 16, PART B [id number] [phone] Rosmery BERGER PATIENT (WNR) (M) B 2010A 00 IS MEDICARE MEDICARE PART Sep 16, PART A [id number] Rosmery BERGER PATIENT (WNR) (M) A 2010 XH29 2 IS MEDICARE MEDICARE PART Sep 16, PART B [id number] Rosmery BERGER PATIENT (WNR) (M) B 2010 XH29 2 IS Selected Encounter This section includes the information on record at [facility] for the Encounter. Date/Time Encounter Type Encounter [...] care activities for the patient from all [facility] treatmentfacilities. This section includes future appointments and future orders which are active, pending orscheduled.Future Appointments This section includes appointments that were scheduled to occur 6 months from the date of the Encounter, up to a maximum of 20 appointments. The data comes from all [facility] treatment facilities. Appointment Date/Time Appointment Type Appointment Facili ty Name Sep 05, 2022 03:30 PM AMBULATORY - MEDICINE [facility] Oct 03, 2022 03:00 PM [facility] Oct 30, 2022 03:00 PM [facility] Dec 06, 2022 03:30 PM AMBULATORY MEDICINE [facility] Lab Results: +/- 30 days of the encounter This section includes the Chemistry and Hematology Lab Results on record with [facility] for the patient. Radiology Reports and Pathology Reports are provided separately, in subsequent sections.Lab Results This section contains the Chemistry/Hematology Results that were resulted 30 days before or 30 daysafter the date of the Encounter. Date/Time Source Result Type Result - Unit Interpretation Reference Range Comment Jun 08, 2022 07:39 [facility] [place] FERRITIN S pecimen Type: SERUM AM [facility] No comment enter ed. Ordering Provid er: MELANIA RAMOS Report Released Date/Time: Feb 14, 2022 08:21 AM Reporting Lab: [facility] [place] [facility] [address] [facility] [address] Performing Lab: [facility] [place] [facility] [address] [facility] [address] FERRITIN 20.5 20-300 Jun 08, 2022 [facility] IRON & TIBC PANEL Specimen Type : SERUM 07:39 AM [place] [facility] No comment enter ed. Ordering Provid er: MELANIA RAMOS Report Released Date/Time: Feb 14, 2022 08:21 AM Reporting Lab: [facility] [place] [facility] [address] [facility] [address] Performing Lab: [facility] [place] [facility] [address] [facility] [address] TIBC 381 204-475 IRON 64 40-160 Transferrin Saturation 16.8 L 20.0-50 .0 Jun 08, 2022 [facility] MICROALBUMIN Specimen Type: URINE 07:39 AM [place] [facility] CREATININE RATIO PANEL No commen t entered. Ordering Provid er: MELANIA RAMOS Report Released Date/Time: Feb 14, 2022 08:21 AM Reporting Lab: [facility] [place] [facility] [address] [facility] [address] Performing Lab: [facility] [place] [facility] [address] [facility] [address] MICROALBUMIN/CREATININE RATIO 316.8 H 0-29.9 MICROALBUMIN,QUANTITATIVE 24.7 RR U NAVAIL CREATININE URINE 77.97 Jun 08, 2022 [facility] BASIC METABOLIC PANEL Specimen Type: SERUM 07:39 [facility] [place] [facility] (non-fasting) No comment enter ed. Ordering Provid er: MELANIA RAMOS Report Released Date/Time: Feb 14, 2022 08:21 AM Reporting Lab: [facility] [place] [facility] [address] [facility] [address] Performing Lab: [facility] [place] [facility] [address] [facility] [address] UREA NITROGEN 24 7-25 GLUCOSE 230 H 65-100 SODIUM 136 135-145 POTASSIUM 5.2 H 3.5-5.0 CHLORIDE 104 100-110 CO2 23 20-30 CREATININE, Serum 1.66 H 0.50-1.40 eGFR(CKD-EPI 2020) 44 L >60 Jun 08, 2022 [facility] HEMOGLOBIN A1C Specimen Type: BLOOD 07:39 AM [...] 2022 03:16 PM Reporting Lab: [facility] [place] [facility] [address] [facility] [address] Performing Lab[facility] [place] [facility] [address] [facility] [address] HEMOGLOBIN A1C 9.4 H 4.0-5.6 Jun 08, 2022 07:39 AM [facility] LIPID PANEL FASTING Speci men Type: SERUM No comment enter ed. Ordering Provid er: AMBIKA KNIGHT Report Released Date/Time: Jun 06, 2022 03:16 PM Reporting Lab: [facility] [place] [facility] [address] [facility] [address] Performing Lab[facility] [place] [facility] [address] [facility] [address] CHOLESTEROL 146 <7-199 TRIGLYCERIDE 238 H 0-150 LDL calculated 67 0-129 CHOL/HDL 4.7 HDL CHOLESTEROL 31 L 40-60 Jun 08, 2022 07:39 AM [facility] [place] CBC Specimen Type: BLOOD HCS No comment enter ed. Ordering Provid er: MELANIA RAMOS Report Released Date/Time: Feb 14, 2022 08:21 AM Reporting Lab: [facility] [place] [facility] [address] [facility] [address] Performing Lab: [facility] [place] [facility] [address] [facility] [address] WBC 7.26 4.50-11.00 RBC 5.31 4.23-5.66 HGB 13.9 12.8-17 HCT 43.1 39.2-50.4 MCV 81.2 L 82-99 MCHC 32.3 30.8-35.1 PLT 280 140-360 RDW-CV 15.5 12.0-16.0 MCH 26.2 26.2-32.6 Jun 08, 2022 07:39 AM [facility] BASIC METABOLIC PANEL Spe cimen Type: SERUM (fasting) No comment enter ed. Ordering Provid er: AMBIKA KNIGHT Report Released Date/Time: Jun 06, 2022 03:16 PM Reporting Lab: [facility] [address] [facility] [address] Performing Lab: [address] [address] UREA NITROGEN 24 7-25 GLUCOSE 230 H [...] smoking and tobacco-related health factors from the [facility] facility where the Encounter took place.Current Smoking Status This section includes the most current smoking, or tobacco-related health factor, from the [facility] facility where the Encounter took place. Date/Time Current Smoking Status Comment Facility February 03, 2019 10:28 AM UT-TOBACCO NEVER USED [facility] Tobacco Use History This section includes a history of the smoking, or tobacco- related health factors, that were collected on or before the date of the Encounter. The data comes from the [facility] facility where the Encounter took place. Date/Time Smoking Status/Tobacco Use Comment [facility] Jan 13, 2018 09:49 AM LIFETIME NON-TOBACCO USER [facility] Jan 04, 2017 10:17 AM LIFETIME NON-TOBACCO USER [facility] Dec 23, 2015 08:49 AM LIFETIME NON-TOBACCO USER [facility] Nov 27, 2005 02:55 PM LIFETIME NON-TOBACCO USER [facility] patient reportssmoking only crac zaira pickett January 22, 2003 10:42 AM LIFETIME NON-SMOKER [facility] Aug 18, 2001 01:54 PM LIFETIME NON-TOBACCO USER [facility] pt states he has never smoked May 14, 2001 02:23 PM LIFETIME NON-SMOKER [facility] Encounter Notes: All associated [...] and discussed with patient. The patient verbalized rodrigo wells. ASSESSMENT AND PLAN: 1. Diabetes: not optimally [...] Not at all Suicide Screen: C-SSRS Screening [place]-Suicide Severity Rating Scale (C-SSRS Screener) 1. Over [...] act joe outpatient prescriptions dispensed from this [facility] (local) an d dispensed from another [facility] or [facility] facility (remote) as well as inpatien t [...] -------- [facility] [place] [facility] GABAPENTIN [facility] [place] [facility] NO KNOWN ALLERGIES Med Recon NoGlossary (Tool #1) INCLUDED IN THIS LIST: Alphabetical list of act joe outpatient prescriptions dispensed from this [facility] (local) an d dispensed from another [facility] or [facility] facility (remote) as well as inpatien t orders (local pending and active), local clinic medications, locally docu mented non-VA medications, and local prescriptions that have or be en discontinued in the past 90 days. Non-VA Meds Last Documented On: Jul 05, 2022 NOTE The display of VA prescriptions disp ensed from another UT or [facility] facility (remote) is limited to active outp atient prescription entries matched to National Drug File at the [facility] [place] site and may not include some items such as investigational drugs, compo unds, etc. NOT INCLUDED IN THIS LIST: Medications self-ent ered by the patient into personal health records (i.e. [facility]) ar e NOT included in this list. Non-VA medications documented outside [facility], remote inpatient orders (regardless of status) [...] ONCE DAILY TO SUPPLEME NT IRON Rx# [id number] Last Released: / Supply: Rx Expiration Date: 07/05/23 Refills Remainin Non-VA FEXOFENADINE HCL 60MG TAB TAKE ONE TABLET BY MOUTH ONCE DAILY Non-VA FINASTERIDE 5MG TAB TAKE ONE TABLET BY MOUTH ONCE DAILY OUTPT GLUCAGON 1MG/JEY INJ EMERGENCY KIT (Statu s = ) INJECT 1 INJECTION INTRAMUSCULARLY ONE TIME NEEDED FOR SEVERE LOW BLOOD SUGAR Rx# [id number] Last Released: 01/26/22 Qty/Days Sup ply: Rx Expiration Date: 04/23/22 Refills Remainin OUTPT INSULIN,ASPART 100UN/ML KELLY FLEXPEN 3ML (Status = Discontinued) INJECT 25 UNITS SUBCUTANEOUSLY THREE TIMES A DA Y Rx# [id number] Last Released: 01/25/22 Qty/Days Sup ply: Rx Expiration Date: 01/24/23 Refills Remainin OUTPT INSULIN,ASPART 100UN/ML KELLY FLEXPEN 3ML (Status = Active) INJECT 25 UNITS SUBCUTANEOUSLY THREE TIMES A DA Y Rx# [id number] Last Released: 06/18/22 Qty/Days Sup ply: Rx Expiration Date: 06/15/23 Refills Remainin OUTPT INSULIN,GLARGINE 100 UNT/ML 3ML SOLOSTAR (Status = Discontinued) INJECT 68 UNITS SUBCUTANEOUSLY ONCE DAILY FOR D IABETES Rx# [id number] Last Released: 01/25/22 Qty/Days Sup ply: Rx Expiration Date: 01/24/23 Refills Remainin OUTPT INSULIN,GLARGINE 100 UNT/ML 3ML SOLOSTAR (Status = On Hold) INJECT 75 UNITS SUBCUTANEOUSLY ONCE DAILY FOR D IABETES Rx# [id number] Last Released: Qt Supply: Rx Expiration Date: [...] THEN INJECT 0.5MG ONCE A WEEK Rx# [id number] Last Released: 07/02/22 Qty/Days Mcconnell pply: 10/13 Rx Expiration Date: 06/15/23 Refills Remainin OUTPT TADALAFIL 10MG TAB (Status = Discontinued ) TAKE ONE TABLET BY MOUTH ONCE DAILY NEEDED Rx# [id number] Last Released: 01/25/22 Qty/Days Mcconnell pply: 01/13 Rx Expiration Date: 01/24/23 Refills Remainin OUTPT TADALAFIL 10MG TAB (Status = Active) TAKE ONE TABLET BY MOUTH ONCE DAILY NEEDED Rx# [id number] Last Released: 06/16/22 Qty/Days Mcconnell pply: 01/13 [...] 1 SENSOR DIRECTED EVERY 14 DAYS Rx# [id number] Last Released: 06/16/22 Qty/Days Sup ply: 11/13 Rx Expiration Date: 01/24/23 Refills Remainin OUTPT GLUCOSE SENSOR FREESTYLE ANTOINE 2 (Status = Active/Suspended) USE 1 SENSOR DIRECTED EVERY 14 DAYS Rx# [id number] Last Released: 06/27/22 Qty/Days S upply: 11/13 Rx Expiration Date: 06/15/23 Refills Remainin OUTPT LANCET,SOFTCLIX (Status = ) USE 1 LANCET DIRECTED THREE TIMES A DAY TO T EST BLOOD SUGAR Rx# [id number] Last Released: 04/10/21 Qty/Days Mcconnell pply: /90 Rx Expiration Date: 04/07/22 Refills Remainin OUTPT NEEDLE,PEN 32G,4MM (Status = ) USE 1 NEEDLE SUBCUTANEOUSLY FOUR TIMES A DAY FO R USE WITH INSULIN PENS Rx# [id number] Last Released: 04/11/21 Qty/Days Mcconnell pply: 400/90 Rx Expiration Date: 04/07/22 Refills Remainin OUTPT NEEDLE,PEN 32G,4MM (Status = Active) USE 1 NEEDLE SUBCUTANEOUSLY EVERY 7 DAYS FOR US E WITH PEN DEVICE Rx# [id number] Last Released: 07/02/22 Qty/Days Mcconnell pply: 100/90 Rx Expiration Date: 09/12/22 Refills Remainin OUTPT SKIN BARRIER WIPE TORBOT SKIN TAC (Status = Active) USE 1 WIPE TOPICALLY EVERY 14 DAYS Rx# [id number] Last Released: 01/30/22 Qty/Days Sup ply: 50/90 Rx Expiration Date: 01/27/23 Refills Remainin /jamal/ Ambika Knight M.D. STAFF PHYSICIAN Signed: 07/05/2022 14:17
--- OUTSIDE RECORDS SUMMARY | 2022-08-25 08:40 | XMS_ITS | Encounter Summary ---
:1950 Author Organization Department of [facility] rs Address [address] [place] [address] Support Name Relationship Address Phone THANIA BERGER Unavailable [address] [place] [address] AMELIA BERGER Unavailable [address] [place] [address] Insurance Providers: All historical and current Section [...] AARP INS PRESCRIPT MEDIC Sep 16, PDPIND [id number] [phone] DAYAMI BERGER PATIENT ION ARE D 2017 [id number] IS MEDICAID MEDICAID [facility] Jul 17, MEDICAI [id number] [phone] DAYAMI BERGER PATIENT EALTH 2014 D [id number] 900 IS STAND [place]HER MEDICARE MEDICARE PART Sep 16, PART A [id number] [phone] Rosmery BERGER PATIENT (WNR) (M) A 2010 00 IS MEDICARE MEDICARE PART Sep 16, PART B [id number] [phone] Rosmery BERGER PATIENT (WNR) (M) B 2010A 00 IS MEDICARE MEDICARE PART Sep 16, PART A [id number] Rosmery BERGER PATIENT (WNR) (M) A 2010 [id number] 2 IS MEDICARE MEDICARE PART Sep 16, PART B [id number] Rosmery BERGER PATIENT (WNR) (M) B 2010 [id number] 2 IS Selected Encounter This section includes the information on record at [place] for the Encounter. Date/Time Encounter Type Encounter Description Reason Provider Source Jul 13, 2022 01:32 Outpatient Encounter ENDOCRINOLOGY PM [facility] Encounter Template Text not used by [place] Plan of Treatment: Future Appointments (+ 6 months) and Future Tests (+/- 45 days) The Plan of Treatment section includes future care activities for the [facility] This section includes future appointments [...] 05, 2022 03:30 PM AMBULATORY - MEDICINE [facility] Oct 03, 2022 03:00 [facility] Oct 30, 2022 03:00 PM [facility] Dec 06, 2022 03:30 PM AMBULATORY MEDICINE [facility] Social History: Smoking Status (Most current) [...] Comment Facility Jul 05, 2022 01:51 PM [place]-TOBACCO NEVER USED [facility] Tobacco Use History This section includes a history of the smoking, or tobacco- related health factors, that were collected on or before the date of the Encounter. The data comes from the [place] facility where the Encounter took place. Date/Time Smoking Status/Tobacco Use Comment [facility] May 11, 2021 01:18 PM [place]-TOBACCO NEVER USED [facility] Encounter Notes: All associated encounter notes This section contains the clinical notes associated to the Encounter. Date/Time Encounter Note(s) Provider Source Jul 13, 2022 01:33 PM TELEPHONE ENCOUNTER NOTE: [facility]I DRAKE [facility] LOCAL TITLE: TELEPHONE NOTE/SPE[facility]TY CLINIC [facility] STANDARD TITLE: TELEPHONE ENCOUNTER NOTE DATE OF NOTE: JUL 13, 2022@13:33 ENTRY DATE: JUL 13, 2022@13:33:02 AUTHOR: JUNI DRAKE EXP COSIGNER: URGENCY: STATUS: COMPLETED TELEPHONE NOTE/SPECIALTY CLINIC Has ADDENDA states that he spoke with his Endocrine Provider and requested this med, but still has not received it. Please renew and mail. Thank you. SILDENAFIL CITRATE 100MG TAB [id number] DISCONTINUED 4 09/01/2020 07/17/2021 (1 ) SIG: TAKE ONE TABLET BY MOUTH ONE TIME NEEDE D TAKE 1 HOUR PRIOR TO SEXUAL ACTIVITY Provider: AMBIKA KNIGHT Cost/Fill: $ 0.63 /jamal/ JUNI DRAKE [employer] TECHNICIAN Signed: 07/13/2022 13:35 Receipt Acknowledged By: * AWAITING SIGNATURE * DELMER STALLINGS 07/13/2022 13:42 /jamal/ STONE CASTRO RN 07/13/2022 ADDENDUM STATUS: COMPLETED T/C L/M (noted that pt has a tadalafil order) /jamal/ DELMER STALLINGS MD STAFF PHYSICIAN Signed: 07/13/2022 13:54
--- OUTSIDE RECORDS SUMMARY | 2022-08-25 08:40 | XMS_ITS ---
:1950 Author Organization Department of [facility] rs Address [address] [place] [address] Support Name Relationship Address Phone CELINE THANIA Rosmery Unavailable [address] [place] [address] [place] [address] CELINEAMELIA Unavailable [address] [place] [address] Insurance Providers: All historical and current Section [...] AARP INS PRESCRIPT MEDIC Sep 16, PDPIND [id number] [phone] YESSI BERGERZhane PATIENT ION ARE D 2017 251 9 IS MEDICAID MEDICAID [facility] Jul 17, MEDICAI [id number] [phone] DAYAMI BERGER PATIENT EALTH 2014 D [id number] 900 IS [place] [place] MEDICARE MEDICARE PART Sep 16, PART A [id number] [phone] Rosmery BERGER PATIENT (WNR) (M) A 2010 00 IS MEDICARE MEDICARE PART Sep 16, PART B [id number] [phone] Rosmery BERGER PATIENT (WNR) (M) B 2010 00 IS MEDICARE MEDICARE PART Sep 16, PART B [id number] Rosmery BERGER PATIENT (WNR) (M) B 2010 XH29 2 IS MEDICARE MEDICARE PART Sep 16, PART A [id number] Rosmery BERGER PATIENT (WNR) (M) A 2010 XH29 2 IS Selected Encounter This section includes the information on record at [place] for the Encounter. Date/Time Encounter Type Encounter Reason Provider Source Description Jul 05, 2022 01:51 IMMUNIZATION ADMIN PRIMARY BRONWYN KNIGHT PM CARE/MEDICINE IHE Encounter Template Text not used by [place] Plan of Treatment: Future Appointments (+ 6 months) and Future Tests (+/- 45 days) The Plan of Treatment section includes future care activities for the patient from all [place] treatmentfacilities. This section includes future appointments and future orders which are active, pending orscheduled.Future Appointments This section includes appointments that were scheduled to occur 6 months from the date of the Encounter, up to a maximum of 20 appointments. The data comes from all [place] treatment facilities. Appointment Date/Time Appointment Type Appointment Facili ty Name Sep 05, 2022 03:30 PM AMBULATORY - MEDICINE [place] Oct 03, 2022 03:00 PM AMBULATORY MEDICINE [place] [facility] [place] [facility] Oct 30, 2022 03:00 PM AMBULATORY MEDICINE [place] [facility] [place] [facility] Dec 06, 2022 03:30 PM [facility] Lab Results: +/- 30 days of the encounter This section includes the Chemistry and Hematology Lab Results on record with [place] for the patient. Radiology Reports and Pathology [...] Feb 14, 2022 08:21 AM Reporting Lab: [place] [facility] [place] [facility] [address] [facility] [address] Performing Lab: [place] [facility] [place] [facility] [address] [facility] [address] FERRITIN 20.5 20-300 Jun 08, 2022 [place] [facility] IRON & TIBC PANEL Specimen Type : SERUM 07:39 AM [place] [facility] No comment enter ed. Ordering Provid er: MELANIA RAMOS Report Released Date/Time: Feb 14, 2022 08:21 AM Reporting Lab: [facility] [place] [facility] [address] [facility] [address] Performing Lab: [facility] [place] [facility] [address] [facility] [address] TIBC 381 204-475 IRON 64 40-160 Transferrin Saturation 16.8 L 20.0-50 .0 Jun 08, 2022 [facility] MICROALBUMIN Specimen Type: URINE 07:39 AM [place] [facility] CREATININE RATIO PANEL No commen t entered. Ordering Provid er: MELANIA RAMOS Report Released Date/Time: Feb 14, 2022 08:21 AM Reporting Lab: [facility] [place] [facility] [address] [facility] [address] Performing Lab: [place] [facility] [place] [facility] [address] [facility] [address] MICROALBUMIN/CREATININE RATIO 316.8 H 0-29.9 MICROALBUMIN,QUANTITATIVE 24.7 RR U [place] CREATININE URINE 77.97 Jun 08, 2022 [place] [facility] BASIC METABOLIC PANEL Specimen Type: SERUM 07:39 AM [place] [facility] (non-fasting) No comment enter ed. Ordering Provid er: MELANIA RAMOS Report Released Date/Time: Feb 14, 2022 08:21 AM Reporting Lab: [place] [facility] [place] [facility] [address] [facility] [address] Performing Lab: [place] [facility] [place] [facility] [address] [facility] [address] UREA NITROGEN 24 7-25 GLUCOSE 230 H 65-100 SODIUM 136 135-145 POTASSIUM 5.2 H 3.5-5.0 CHLORIDE 104 100-110 CO2 23 20-30 CREATININE, Serum 1.66 H 0.50-1.40 eGFR(CKD-EPI 2020) 44 L >60 Jun 08, 2022 07:39 AM [place] LIPID PANEL FASTING Speci men Type: SERUM No comment enter ed. Ordering Provid er: AMBIKA KNIGHT Report Released Date/Time: Jun 06, 2022 03:16 PM Reporting Lab: [place] [facility] [place] [facility] [address] [facility] [address] Performing Lab: [facility] [address] [facility] [address] CHOLESTEROL 146 <7-199 TRIGLYCERIDE 238 H 0-150 LDL calculated 67 0-129 CHOL/HDL 4.7 HDL CHOLESTEROL 31 L 40-60 Jun 08, 2022 [place] HEMOGLOBIN A1C Specimen Type: BLOOD 07:39 AM [...] Jun 06, 2022 03:16 PM Reporting Lab: [address] [address] Performing Lab: [address] [address] HEMOGLOBIN A1C 9.4 H 4.0-5.6 Jun 08, 2022 07:39 AM [place] BASIC METABOLIC PANEL Spe cimen Type: SERUM (fasting) No comment enter ed. Ordering Provid er: AMBIKA KNIGHT Report Released Date/Time: Jun 06, 2022 03:16 PM Reporting Lab: [address] [address] Performing Lab: [address] [address] UREA NITROGEN 24 7-25 GLUCOSE 230 H 65-100 SODIUM 136 135-145 POTASSIUM 5.2 H 3.5-5.0 CHLORIDE 104 100-110 CO2 23 20-30 CREATININE, Serum 1.66 H 0.50-1.40 eGFR(CKD-EPI 2020) 44 L >60 Jun 08, 2022 07:[address] [facility] Specimen Type: BLOOD HCS No comment enter ed. Ordering Provid er: MELANIA RAMOS Report Released Date/Time: Feb 14, 2022 08:21 AM Reporting Lab: [facility] [address] [address] Performing Lab: [place] [facility] [facility] [address] [facility] [place] [address] WBC 7.26 4.50-11.00 RBC 5.31 4.23-5.66 HGB 13.9 12.8-17 HCT 43.1 39.2-50.4 MCV 81.2 L 82-99 MCHC 32.3 30.8-35.1 PLT 280 140-360 RDW-CV 15.5 12.0-16.0 MCH 26.2 26.2-32.6 Immunizations: All administered on the encounter date This section contains immunizations associated to the Encounter. Immunization Series Date Issued Reaction Comments TDAP Jul 05, 2022 Social History: Smoking Status (Most current) and Tobacco Use (All prior to encounter date) This section includes the most current, and the historical, smoking and tobacco-related health factors from the [place] facility where the Encounter took place.Current Smoking Status This section includes the most current smoking, or tobacco-related health factor, from the [place] facility where the Encounter took place. Date/Time Current Smoking Status Comment Facility Jul 05, 2022 01:51 PM VA-TOBACCO NEVER USED [facility] Tobacco Use History This section includes a history of the smoking, or tobacco- related health factors, that were collected on or before the date of the Encounter. The data comes from the [place] facility where the Encounter took place. Date/Time Smoking Status/Tobacco Use Comment [facility] May 11, 2021 01:18 PM VA-TOBACCO NEVER USED [place] [facility] Encounter Notes: All associated encounter notes This section contains the clinical notes associated to the Encounter. Date/Time Encounter Note(s) Provider Source Jul 05, 2022 01:51 PM PREVENTIVE MEDICINE NURSING NOTE: JOEY RODRIGUEZ [facility] TITLE: CLINICAL REMINDERS/NURSING STANDARD TITLE: PREVENTIVE MEDICINE NURSING NOTE DATE OF NOTE: JUL 05, 2022@13:51 ENTRY DATE: JUL 05, 2022@13:51:14 AUTHOR: JOEY RODRIGUEZ EXP COSIGNER: URGENCY: STATUS: COMPLETED CLINICAL REMINDERS/NURSING Has ADDENDA here for 6 month DM check up after labs. Advance Directive Screen: Patient has an up-to-date Advance Directive at an outside, non-pr facility and was asked to forward a [...] for receiving COVID-19 (SARS-CoV-2) booster either at [place] or [facility]. Comment: Made aware available here at [place] by olvin ointment. /jamal/ JOEY RODRIGUEZ LPN LICENSED PRACTICAL NURSE Signed: 07/05/2022 13:54 07/05/2022 ADDENDUM STATUS: COMPLETED VIS dicussed and given for review re: Tdap. /keshawn RODRIGUEZ LPN LICENSED PRACTICAL NURSE Signed: 07/05/2022 13:55 07/05/2022 ADDENDUM STATUS: COMPLETED Td / Tdap Immunization: The patient received Tetanus/Diphtheria/Pertuss is (Tdap) 0.5ml IM today in Left Deltoid. Cat Swamper: [facility] Lot # and Expiration Date: 34FR4(E)06/08/24 Administered by protocol/policy Complications: None The Tetanus, Diphtheria/Pertussis Vaccine (Tdap ) Immunization Sheet (VIS) was given to the patient today. VIS version date Apr. /keshawn RODRIGUEZ LPN LICENSED PRACTICAL NURSE Signed: 07/05/2022 14:46
--- OUTSIDE RECORDS SUMMARY | 2022-08-25 08:40 | XMS_ITS | Encounter Summary ---
:1950 Author Organization Department of [facility] rs Address [address] [place] [address] Support Name Relationship Address Phone CELINE THANIA Rosmery Unavailable [address] [place] [address] [place] [address] CELINEAMELIA Unavailable [address] [place] [address] Insurance Providers: All historical and current Section [...] AARP INS PRESCRIPT MEDIC Sep 16, PDPIND [id number] [phone] YESSI BERGERZhane PATIENT ION ARE D 2017 251 9 IS MEDICAID MEDICAID [facility] Jul 17, MEDICAI [id number] [phone] DAYAMI BERGER PATIENT EALTH 2014 D [id number] 900 IS [place] [place] MEDICARE MEDICARE PART Sep 16, PART A [id number] [phone] Rosmery BERGER PATIENT (WNR) (M) A 2010 00 IS MEDICARE MEDICARE PART Sep 16, PART B [id number] [phone] Rosmery BERGER PATIENT (WNR) (M) B 2010 00 IS MEDICARE MEDICARE PART Sep 16, PART B [id number] Rosmery BERGER PATIENT (WNR) (M) B 2010 XH29 2 IS MEDICARE MEDICARE PART Sep 16, PART A [id number] Rosmery BERGER PATIENT (WNR) (M) A 2010 [...] activities for the patient from all [facility]. This section includes future appointments and future orders which are active, pending orscheduled.Future Appointments This section includes appointments that were scheduled to occur 6 months from the date of the Encounter, up to a maximum of 20 appointments. The data comes from all [place] treatment facilities. Appointment Date/Time Appointment Type Appointment Facili ty Name Jul 04, 2022 03:00 PM AMBULATORY - MEDICINE [place] [facility] [place] [facility] Jul 04, 2022 03:15 PM AMBULATORY - MEDICINE [place] [facility] [place] [facility] Jul 05, 2022 01:30 PM AMBULATORY - MEDICINE [place] Sep 05, 2022 03:30 PM AMBULATORY MEDICINE [place] Oct 03, 2022 03:00 PM AMBULATORY - MEDICINE [place] [facility] [place] [facility] Oct 30, 2022 03:00 PM AMBULATORY - MEDICINE [place] [facility] [place] [facility] Dec 06, 2022 03:30 PM AMBULATORY - MEDICINE [place] [facility] [place] [facility] Lab Results: +/- 30 days of [...] Reference Range Comment Jun 08, 2022 07:39 [place] [facility] FERRITIN S pecimen Type: SERUM AM HCS No comment enter ed. Ordering Provid er: MELANIA RAMOS Report Released Date/Time: Feb 14, 2022 08:21 AM Reporting Lab: [place] [facility] [place] [facility] [address] [facility] [address] Performing Lab: [facility] [place] [facility] [address] [facility] [address] FERRITIN 20.5 20-300 Jun 08, 2022 [facility] IRON & TIBC PANEL Specimen Type : SERUM 07:39 AM [place] [facility] No comment enter ed. Ordering Provid er: MELANIA RAMOS Report Released Date/Time: Feb 14, 2022 08:21 AM Reporting Lab: [facility] [place] [facility] [address] [facility] [address] Performing Lab: [facility] [place] [facility] [address] [facility] [address] TIBC 381 204-475 IRON 64 40-160 Transferrin Saturation 16.8 L 20.0-50 .0 Jun 08, 2022 [facility] MICROALBUMIN Specimen Type: URINE 07:39 AM [place] [facility] CREATININE RATIO PANEL No commen t entered. Ordering Provid er: MELANIA RAMOS Report Released Date/Time: Feb 14, 2022 08:21 AM Reporting Lab: [facility] [place] [facility] [address] [facility] [address] Performing Lab: [facility] [place] [facility] [address] [facility] [address] MICROALBUMIN/CREATININE RATIO 316.8 H 0-29.9 MICROALBUMIN,QUANTITATIVE 24.7 RR U NAVAIL CREATININE URINE 77.97 Jun 08, 2022 07:39 AM [place] LIPID PANEL FASTING Speci men Type: SERUM No comment enter ed. Ordering Provid er: AMBIKA KNIGHT Report Released Date/Time: Jun 06, 2022 03:16 PM Reporting Lab: [facility] [place] [facility] [address] [facility] [address] Performing Lab: [facility] [place] [facility] [address] [facility] [address] CHOLESTEROL 146 <7-199 TRIGLYCERIDE 238 H 0-150 LDL calculated 67 0-129 CHOL/HDL 4.7 HDL CHOLESTEROL 31 L 40-60 Jun 08, 2022 [facility] BASIC METABOLIC PANEL Specimen Type: SERUM 07:39 AM [place] [facility] (non-fasting) No comment enter ed. Ordering Provid er: MELANIA RAMOS Report Released Date/Time: Feb 14, 2022 08:21 AM Reporting Lab: [facility] [place] [facility] [address] [facility] [address] Performing Lab: [facility] [place] [facility] [address] [facility] [address] UREA NITROGEN 24 7-25 GLUCOSE 230 H 65-100 SODIUM 136 135-145 POTASSIUM 5.2 H 3.5-5.0 CHLORIDE 104 100-110 CO2 23 20-30 CREATININE, Serum 1.66 H 0.50-1.40 eGFR(CKD-EPI 2020) 44 L >60 Jun 08, 2022 [place] HEMOGLOBIN A1C Specimen Type: BLOOD 07:39 AM [...] 06, 2022 03:16 PM Reporting Lab: [facility] [address] [facility] [address] Performing Lab: [facility] [address] [facility] [address] HEMOGLOBIN A1C 9.4 H 4.0-5.6 Jun 08, 2022 07:39 AM [place] [facility] [place] CBC Specimen Type: BLOOD [facility] No comment enter ed. Ordering Provid er: MELANIA RAMOS Report Released Date/Time: Feb 14, 2022 08:21 AM Reporting Lab: [facility] [place] [facility] [address] [facility] [address] Performing Lab: [facility] [place] [facility] [address] [facility] [address] WBC 7.26 4.50-11.00 RBC 5.31 4.23-5.66 HGB 13.9 12.8-17 HCT 43.1 39.2-50.4 MCV 81.2 L 82-99 MCHC 32.3 30.8-35.1 PLT 280 140-360 RDW-CV 15.5 12.0-16.0 MCH 26.2 26.2-32.6 Jun 08, 2022 07:39 AM [place] BASIC METABOLIC PANEL Spe cimen Type: SERUM (fasting) No comment enter ed. Ordering Provid er: AMBIKA KNIGHT Report Released Date/Time: Jun 06, 2022 03:16 PM Reporting Lab: [facility] [address] [facility] [address] Performing Lab: [facility] [address] [facility] [address] UREA NITROGEN 24 7-25 GLUCOSE 230 H [...] 11, 2021 01:18 PM VA-TOBACCO NEVER USED [place] C NTRL WSN [facility]
--- OUTSIDE RECORDS SUMMARY | 2022-08-25 08:41 | XMS_ITS | Encounter Summary ---
:1950 Author Organization Department of [facility] rs Address [address] [place] [address] Support Name Relationship Address Phone THANIA BERGER Unavailable [address] [place] [address] AMELIA BERGER Unavailable [address] [place] [address] Insurance Providers: All historical and current Section [...] AARP INS PRESCRIPT MEDIC Sep 16, PDPIND [id number] [phone] DAYAMI BERGER PATIENT ION ARE D 2017 [id number] 9 IS MEDICAID MEDICAID [facility] Jul 17, MEDICAI [id number] [phone] DAYAMI BERGER PATIENT EALTH 2014 D [id number] 900 IS [place] [place] MEDICARE MEDICARE PART Sep 16, PART A [id number] [phone] Rosmery BERGER PATIENT (WNR) (M) A 2010 00 IS MEDICARE MEDICARE PART Sep 16, PART B [id number] [phone] Rosmery BERGER PATIENT (WNR) (M) B 2010A 00 IS MEDICARE MEDICARE PART Sep 16, PART A [id number] Rosmery BERGER PATIENT (WNR) (M) A 2010 XH29 2 IS MEDICARE MEDICARE PART Sep 16, PART B [id number] Rosmery BERGER PATIENT (WNR) (M) B 2010 XH29 2 IS Selected Encounter This section includes the information on record at [place] for the Encounter. Date/Time Encounter Type Encounter Description Reason Provider Source Jul 30, 2022 10:11 Outpatient Encounter ENDOCRINOLOGY AM IHE Encounter Template Text not used by [place] Plan of Treatment: Future Appointments (+ 6 months) and Future Tests (+/- 45 days) The Plan of Treatment section includes future care activities for the patient from all [place] [facility]. This section includes future appointments [...] 05, 2022 03:30 PM AMBULATORY - MEDICINE [place] Oct 03, 2022 03:00 PM [facility] Oct 30, 2022 03:00 PM [facility] Dec 06, 2022 03:30 PM AMBULATORY MEDICINE [facility] Social History: Smoking Status (Most current) [...] Comment Facility Jul 05, 2022 01:51 PM ME-TOBACCO NEVER USED [facility] Tobacco Use History This section includes a history of the smoking, or tobacco- related health factors, that were collected on or before the date of the Encounter. The data comes from the [place] facility where the Encounter took place. Date/Time Smoking Status/Tobacco Use Comment [facility] May 11, 2021 01:18 PM ME-TOBACCO NEVER USED [facility] Encounter Notes: All associated encounter notes This section contains the clinical notes associated to the Encounter. Date/Time Encounter Note(s) Provider Source Jul 30, 2022 10:11 AM TELEPHONE ENCOUNTER NOTE: SOFIA PRESTON [facility] WSN LOCAL TITLE: TELEPHONE NOTE/[facility] STANDARD TITLE: TELEPHONE ENCOUNTER NOTE DATE OF NOTE: JUL 30, 2022@10:11 ENTRY DATE: JUL 30, 2022@10:11:07 AUTHOR: SOFIA PRESTON EXP COSIGNER: URGENCY: STATUS: COMPLETED TELEPHONE NOTE/SPECIALTY CLINIC Has ADDENDA calling in asking for call from Endocrine to speak about prescriptions as he has not received any confirmed number in f ile /jamal/ SOFIA PRESTON Signed: 07/30/2022 10:13 Receipt Acknowledged By: 07/30/2022 12:11 /jamal/ DELMER STALLINGS MD STAFF PHYSICIAN * AWAITING SIGNATURE * DAYNE SIMONS 07/30/2022 10:58 /es/ STONE CASTRO RN 07/30/2022 ADDENDUM STATUS: COMPLETED SC nurse, please let pt know that I have reorder ed med, that dose cannot be compared between sildenafil and tadalafil, and t hat the instructions are one time PRN sexual activity. Thank you. /jamal/ DELMER STALLINGS MD STAFF PHYSICIAN Signed: 07/30/2022 12:12 Receipt Acknowledged By: * AWAITING SIGNATURE * STONE CASTRO
--- OUTSIDE RECORDS SUMMARY | 2022-08-25 08:41 | XMS_ITS | Encounter Summary ---
:1950 Author Organization Department of [facility] rs Address [address] [place] [phone] Support Name Relationship Address Phone THANIA BERGER Unavailable [address] [place] [address] [place] [address] AMELIA BERGER Unavailable [address] [place] [address] Insurance Providers: All historical and current Section [...] AARP INS PRESCRIPT MEDIC Sep 16, PDPIND [id number] [phone] YESSI BERGERZhane PATIENT ION ARE D 2017 [id number] 9 IS MEDICAID MEDICAID [facility] Jul 17, MEDICAI [id number] [phone] DAYAMI BERGER PATIENT EALTH 2014 D [id number] 900 IS [place] MEDICARE MEDICARE PART Sep 16, PART A [id number] [phone] Rosmery BERGER PATIENT (WNR) (M) A 2010 00 IS MEDICARE MEDICARE PART Sep 16, PART B [id number] [phone] Rosmery BERGER PATIENT (WNR) (M) B 2010A 00 IS MEDICARE MEDICARE PART Sep 16, PART A [id number] Rosmery BERGER PATIENT (WNR) (M) A 2010 XH29 2 IS MEDICARE MEDICARE PART Sep 16, PART B [id number] Rosmery BERGER PATIENT (WNR) (M) B 2010 XH29 2 IS Selected Encounter This section includes the information on record at [place] for the Encounter. Date/Time Encounter Type Encounter Reason Provider Source Description Aug 08, 2022 QNHP [facility] ICD-10-CM E11.9 ISABEL OCAMPO IST 11:06 AM ASSMT&MGMT 5-10 Type 2 diabetes INE F mellitus without complications with Provider Comments: Diabetes mellitus ([facility] [id number]) IHE Encounter Template Text not used by [place] Assessments - Encounter Diagnoses This section includes the primary and secondary diagnoses documented for the Encounter. Date/Time Primary/Secondary Diagnosis Name Provider Source Diagnosis Aug 08, 2022 PRIMARY Type 2 diabetes OLLIE OCAMPO [facility] 11:11 AM mellitus without NE F CLINIC (631 [...] 05, 2022 03:30 PM AMBULATORY - MEDICINE [place] Oct 03, 2022 03:00 PM [facility] [place] [facility] Oct 30, 2022 03:00 PM [facility] [place] [facility] Dec 06, 2022 03:30 PM [facility] [place] [facility] February 04, 2023 02:30 PM [facility] Encounter Notes: All associated encounter notes This section contains the clinical notes associated to the Encounter. Date/Time Encounter Note(s) Provider Source Aug 08, 2022 11:06 AM PHARMACY OUTPATIENT MEDICATION MGT NOT E: DALE OCAMPO [facility] LOCAL TITLE: PHARMACY OUTPATIENT MEDICATION NOT E ([id number]) STANDARD TITLE: PHARMACY OUTPATIENT MEDICATION M GT NOTE DATE OF NOTE: AUG 08, 2022@11:06 ENTRY DATE: AUG 08, 2022@11:06:57 AUTHOR: DALE OCAMPO EXP COSIGNER: URGENCY: STATUS: COMPLETED NOTIFICATION OF MEDICATION BACKORDER Semaglutide inj is currently on national backord er with restock expected in 2 months. Patient with current refill request for semaglut maria victoria, note this was never approved through consult system. Patient was approved for liraglutide in 2019, appears to have gotten benef it, unclear why this was stopped in 2019, there was mention of pt being followed by non-VA endo, unclear if he received non-VA RXs. A1c now increased. Pt has been on semagl utide for ~1 month (order accidentally processed by pharmacy w/o consult), unclear if B G improved. Will alert provider to review patient, semagluti de order d/c'd as pharmacy cannot fill order and never approved. Wi ll ask provider to please enter RX for liraglutide if appropriate, and re-evaluate in 1 -2 months. If pt has had improvement in BG, new PA-F for semaglutide will be required. Time Spent: 5 min /jamal/ DALE OCAMPO, KhadijahD, [facility] Clinical Director Of Corporate Responsibility Signed: 08/08/2022 11:11 Receipt Acknowledged By: * AWAITING SIGNATURE * DELMER STALLINGS
--- OUTSIDE RECORDS SUMMARY | 2022-08-25 08:41 | XMS_ITS | Encounter Summary ---
:1950 Author Organization Department of [facility] rs Address [address] [place] [address] Support Name Relationship Address Phone THANIA BERGER Rosmery [place]available [place] [address] CELINEAMELIA Unavailable [address] [place] [address] Insurance Providers: All historical and current Section [...] AARP INS PRESCRIPT MEDIC Sep 16, PDPIND [id number] [phone] YESSI BERGERZhane PATIENT ION ARE D 2017 [id number] IS MEDICAID MEDICAID [facility] Jul 17, MEDICAI [id number] YESSI BERGERZhane PATIENT EALTH 2014 D [id number] IS STAND [place]RISTOPHER MEDICARE MEDICARE PART Sep 16, PART A [id number] [phone] Rosmery BERGER PATIENT (WNR) (M) A 2010 00 IS MEDICARE MEDICARE PART Sep 16, PART B [id number] [phone] Rosmery BERGER PATIENT (WNR) (M) B 2010 00 IS MEDICARE MEDICARE PART Sep 16, PART B [id number] [id number] Rosmery BERGER PATIENT (WNR) (M) B 2010 XH29 2 IS MEDICARE MEDICARE PART Sep 16, PART A [id number] Rosmery BERGER PATIENT (WNR) (M) A 2010 XH29 2 IS Selected Encounter This section includes the information on record at [place] for the Encounter. Date/Time Encounter Type Encounter Reason Provider Source Description Jul 13, 2022 Outpatient TELEPHONE/MEDICIN ICD-10-CM N52.9 AMIRA STALLINGS E 03:43 PM Encounter E Male erectile dysfunction, unspecified with Provider Comments: Erectile dysfunction (SNOMED CT [id number]) IHE Encounter Template Text not used by [place] Assessments - Encounter Diagnoses This section includes the primary and secondary diagnoses documented for the Encounter. Date/Time Primary/Secondary Diagnosis Name Provider Source Diagnosis Jul 13, 2022 PRIMARY Male erectile [facility]ALLINGS [facility] dysfunction, [place] [facility] unspecified Plan of Treatment: Future Appointments (+ 6 months) and Future Tests (+/- 45 days) The Plan of Treatment section includes future care activities for the patient from all [place] [facility] This section includes future appointments [...] 05, 2022 03:30 PM AMBULATORY - MEDICINE [place] Oct 03, 2022 03:00 PM [facility] Oct 30, 2022 03:00 PM [facility] Dec 06, 2022 03:30 PM AMBULATORY MEDICINE [facility] Social History: Smoking Status (Most current) and [...] 05, 2022 01:51 PM VA-TOBACCO [facility] USED [facility] Tobacco Use History This section includes a history of the smoking, or tobacco- related health factors, that were collected on or before the date of the Encounter. The data comes from the [place] facility where the Encounter took place. Date/Time Smoking Status/Tobacco Use Comment [facility] May 11, 2021 01:18 PM VA-TOBACCO NEVER USED [facility] Encounter Notes: All associated encounter notes This section contains the clinical notes associated to the Encounter. Date/Time Encounter Note(s) Provider Source Jul 13, 2022 03:43 PM PHYSICIAN NOTE: DELMER STALLINGS CNTRL W STRN LOCAL TITLE: MD [place] S [facility] STANDARD TITLE: PHYSICIAN NOTE DATE OF NOTE: JUL 13, 2022@15:43 ENTRY DATE: JUL 13, 2022@15:43:13 AUTHOR: DELMER STALLINGS EXP COSIGNER: URGENCY: STATUS: COMPLETED Erectile dysfunction Advised pt that Tadalafil was sent 06/16. Reviewed timing of administration. He states that he did not receive this. [facility] Tadalafil renewed. 5 min telephone encounter. /jamal/ DELMER STALLINGS MD STAFF PHYSICIAN Signed: 07/13/2022 15:49
--- OUTSIDE RECORDS SUMMARY | 2022-08-25 08:42 | XMS_ITS ---
:1950 Author Organization Department of [facility] rs Address [address] [place] [address] Support Name Relationship Address Phone THANIA CHRISTIANSON Rosmery Unavailable [address] [place] [address] AMELIA CHRISTIANSON Unavailable [address] [place] [address] Insurance Providers: All historical and current Section [...] AARP INS PRESCRIPT MEDIC Sep 16, PDPIND [id number] [phone] YESSI CHRISTIANSONZhane PATIENT ION ARE D 2017 251 9 IS MEDICAID MEDICAID [facility] Jul 17, MEDICAI [id number] DAYAMI CHRISTIANSON PATIENT EALTH 2014 D [id number] IS STAND [place]HER MEDICARE MEDICARE PART Sep 16, PART A [id number] [phone] Rosmery CHRISTIANSON PATIENT (WNR) (M) A 2010 00 IS MEDICARE MEDICARE PART Sep 16, PART B [id number] [phone] Rosmery CHRISTIANSON PATIENT (WNR) (M) B 2010A 00 IS MEDICARE MEDICARE PART Sep 16, PART A [id number] Rosmery CHRISTIANSON PATIENT (WNR) (M) A 2010 XH29 2 IS MEDICARE MEDICARE PART Sep 16, PART B [id number] [id number] Rosmery CHRISTIANSON PATIENT (WNR) (M) B 2010 XH29 2 IS Selected Encounter This section includes the information on record at [place] for the Encounter. Date/Time Encounter Type Encounter Reason Provider Source Description Aug 13, 2022 [facility] ICD-10-CM E11.9 CAMILLE LUKE RY 11:46 AM ASSMT&MGMT 5-10 Type 2 diabetes mellitus without complications with Provider Comments: Diabetes mellitus ([facility] [id number]) IHE Encounter Template Text not used by [place] Assessments - Encounter Diagnoses This section includes the primary and secondary diagnoses documented for the Encounter. Date/Time Primary/Secondary Diagnosis Name Provider Source Diagnosis Aug 13, 2022 PRIMARY Type 2 diabetes [facility]ARLEEN LUKE [facility] 11:50 AM mellitus without [place] [facility] complications Plan of Treatment: Future Appointments (+ 6 months) and Future Tests (+/- 45 days) The Plan of Treatment section includes future care activities for the patient from all [place] [facility]. This section includes future appointments and future orders which are active, pending orscheduled.Future Appointments This section includes appointments that were scheduled to occur 6 months from the date of the Encounter, up to a maximum of 20 appointments. The data comes from all [place] treatment facilities. Appointment Date/Time Appointment Type Appointment Facili ty Name Sep 05, 2022 03:30 PM AMBULATORY MEDICINE [place] Oct 03, 2022 03:00 PM [facility] Oct 30, 2022 03:00 PM [facility] Dec 06, 2022 03:30 PM [facility] February 04, 2023 02:30 PM [facility] Social History: Smoking Status (Most current) [...] 05, 2022 01:51 PM [place]-TOBACCO NEVER USED [facility] Tobacco Use History This section includes a history of the smoking, or tobacco- related health factors, that were collected on or before the date of the Encounter. The data comes from the [place] facility where the Encounter took place. Date/Time Smoking Status/Tobacco Use Comment Facil ity May 11, 2021 01:18 PM VA-TOBACCO NEVER USED [facility] [place] [facility] Encounter Notes: All associated encounter notes This section contains the clinical notes associated to the Encounter. Date/Time Encounter Note(s) Provider Source Aug 13, 2022 11:46 AM MEDICATION MGT CONSULT: DARLEEN LUKE [place] CNTRL WSTRN LOCAL TITLE: CONSULT REPORT/NON FORMULARY PADR [place] [facility] STANDARD TITLE: MEDICATION MGT CONSULT DATE OF NOTE: AUG 13, 2022@11:46 ENTRY DATE: AUG 13, 2022@11:47:06 AUTHOR: DARLEEN LUKE EXP COSIGNER: URGENCY: STATUS: COMPLETED The medical record has been reviewed with regard to this restricted drug request. Medication requested: DULAGLUTIDE 0.75MG/0.5ML INJ PEN Medication indication: T2DM Medical history relevant to this request: Mr. Christianson is a 71 yo male with a PMH sign ificant for T2DM, CKD, HTN, HLD, cerebellar stroke syndr ome, and h/o [place]. He is currently on insulin glargine 75 units daily and insulin apart 25 units TID fo r diabetes management. He was previously on semaglutide which was recently dis continued d/t mfg backorder. Dulaglutide is requested at this time as a repla cement for semaglutide. Per chart review, Mr. Christianson has no h/o pa ncreatitis or gastroparesis. No family h/o thyroid cancer. Non-VA retinal specialist pr eviously confirmed agreement w/treatment w/semaglutide. He is not a good cand idate for metformin d/t CKD (eGFR 44 ml/min on 06/08/22). Per 06/14/22 endocri ne note, Defer empagliflozin due to elevated bg and risk of dehydration. The request is approved - A documented contraindication exists to the pr eferred formulary alternative(s) Time Spent = 10 minutes /jamal/ Darleen Luke, PharmD, [facility] PROVIDER Signed: 08/13/2022 11:50
--- OUTSIDE RECORDS SUMMARY | 2022-08-25 08:43 | XMS_ITS ---
:1950 Author Organization Department of [facility] rs Address [address] [place] [address] Support Name Relationship Address Phone THANIA BERGER Unavailable [address] [place] [address] AMELIA BERGER Unavailable [address] [place] [address] Insurance Providers: All historical and current Section [...] AARP INS PRESCRIPT MEDIC Sep 16, PDPIND [id number] [phone] YESSI BERGERZhane PATIENT ION ARE D 2017 [id number] IS MEDICAID MEDICAID [facility] Jul 17, MEDICAI [id number] [phone] DAYAMI BERGER PATIENT EALTH 2014 D [id number] IS STAND [place]HER MEDICARE MEDICARE PART Sep 16, PART A [id number] [phone] Rosmery BERGER PATIENT (WNR) (M) A 2010 00 IS MEDICARE MEDICARE PART Sep 16, PART B [id number] [phone] Rosmery BERGER PATIENT (WNR) (M) B 2010A 00 IS MEDICARE MEDICARE PART Sep 16, PART A [id number] [phone] Rosmery BERGER PATIENT (WNR) (M) A 2010 XH29 2 IS MEDICARE MEDICARE PART Sep 16, PART B [id number] Rosmery BERGER PATIENT (WNR) (M) B 2010 XH29 2 IS Selected Encounter This section includes the information on record at [place] for the Encounter. Date/Time Encounter Type Encounter Description Reason Provider Source Aug 16, 2022 08:29 Outpatient Encounter ENDOCRINOLOGY AM IHE Encounter Template Text not used by [place] Plan of Treatment: Future Appointments (+ 6 months) and Future Tests (+/- 45 days) The Plan of Treatment section includes future care activities for the patient from all [place] [facility]. This section includes future appointments and future orders which are active, pending orscheduled.Future Appointments This section includes appointments that were scheduled to occur 6 months from the date of the Encounter, up to a maximum of 20 appointments. The data comes from all [place] treatment facilities. Appointment Date/Time Appointment Type Appointment Facili ty Name Sep 05, 2022 03:30 PM AMBULATORY [facility] Oct 03, 2022 03:00 PM AMBULATORY MEDICINE [facility] Oct 30, 2022 03:00 PM [facility] Dec 06, 2022 03:30 PM AMBULATORY MEDICINE [facility] February 04, 2023 02:30 PM AMBULATORY MEDICINE [place] Social History: Smoking Status (Most current) and Tobacco Use (All prior to encounter date) This section includes the most current, and the historical, smoking and tobacco-related health factors from the [place] facility where the Encounter took place.Current Smoking Status This section includes the most current smoking, or tobacco-related health factor, from the [place] facility where the Encounter took place. Date/Time Current Smoking Status Comment Facility Jul 05, 2022 01:51 PM [place]-TOBACCO NEVER USED [facility] Tobacco Use History This section includes a history of the smoking, or tobacco- related health factors, that were collected on or before the date of the Encounter. The data comes from the [place] facility where the Encounter took place. Date/Time Smoking Status/Tobacco Use Comment [facility] May 11, 2021 01:18 PM [place]-TOBACCO NEVER USED [facility] Encounter Notes: All associated encounter notes This section contains the clinical notes associated to the Encounter. Date/Time Encounter Note(s) Provider Source Aug 16, 2022 08:29 AM TELEPHONE ENCOUNTER NOTE: GARIMA SNOW [facility] LOCAL TITLE: TELEPHONE NOTE/SPECIALTY CLINIC [facility] STANDARD TITLE: TELEPHONE ENCOUNTER NOTE DATE OF NOTE: AUG 16, 2022@08:29 ENTRY DATE: AUG 16, 2022@08:29:58 AUTHOR: GARIMA SNOW EXP COSIGNER: URGENCY: STATUS: COMPLETED TELEPHONE NOTE/SPECIALTY CLINIC Has ADDENDA vet called for refills for ozempic and t rulicity. There are four prescriptions in system that have not been released. Please call vet vet would like mailed to him to mailing address Confirmed phone/address /es/ GARIMA SNOW [employer]IST[employer] Signed: 08/16/2022 08:31 Receipt Acknowledged By: 08/16/2022 18:14 /jamal/ DELMER STALLINGS MD STAFF PHYSICIAN 08/16/2022 08:47 /es/ STONE CASTRO RN 08/16/2022 ADDENDUM STATUS: COMPLETED Spoke with pt. /jamal/ DELMER STALLINGS MD STAFF PHYSICIAN Signed: 08/16/2022 18:15
[2022-08-25 10:11] LABS: MANUAL DIFF FLAG NO
[2022-08-25 10:33] LABS: Alanine Aminotransferase 27 U/L (0-40); Albumin Level 4.1 g/dL (3.5-5.0); Alkaline Phosphatase 78 U/L (39-117); Anion Gap 13 (12-20); Aspartate Amino Transferase 21 U/L (5-37); Bilirubin Direct 0.2 mg/dL (0.0-0.5); Blood Urea Nitrogen 25 mg/dL (9-16); Carbon Dioxide 22 mmol/L (22-29); Chloride 107 mmol/L (96-108); Estimated Glomerular Filt Rate 52; Glucose Random 173 mg/dL (60-115); Potassium 4.1 mmol/L (3.3-5.1); Sodium 138 mmol/L (135-145); Total Protein 6.9 g/dL (6.5-8.0)
[2022-08-25 10:35] LABS: Basophils Absolute Auto 0.1 X10*3/uL (0.0-0.2); Basophils Percent Auto 0.5 % (0-2); Eosinophils Absolute Auto 0.4 X10*3/uL (0.0-0.4); Eosinophils Percent Auto 3.4 % (0-4); Hematocrit 40.5 % (42.0-52.0); Hemoglobin 13.6 g/dl (14.0-18.0); Imm Gran Abs Auto 0.05 X10*3/uL (0.00-0.03); Imm Gran Pct Auto 0.5 % (0.0-0.4); Lymphocytes Absolute Auto 1.5 X10*3/uL (1.2-4.9); Lymphocytes Percent Auto 14.8 % (20-40); Mean Corpuscular HGB Conc 33.6 g/dl (31.0-36.0); Mean Corpuscular Hemoglobin 28.1 pg (27.0-33.0); Mean Corpuscular Volume 83.7 fL (80.0-98.0); Mean Platelet Volume 11.4 fL (9.4-12.4); Monocytes Absolute Auto 0.9 X10*3/uL (0.1-1.2); Monocytes Percent Auto 8.8 % (2-11); Neutrophils Absolute Auto 7.3 x10*3/uL (2.0-8.3); Platelet Count 210 X10*3/uL (160-400); Red Blood Count 4.84 X10*6/uL (4.60-5.80); Red Cell Distribution Width 15.5 % (11.0-16.0); White Blood Count 10.2 X10*3/uL (4.8-10.8)
[2022-08-25 10:41] LABS: INTERNATIONAL NORM RATIO 1.3 (0.9-1.1); Prothrombin Time 14.8 SEC (10.0-13.1)
[2022-08-25 10:44] LABS: Partial Thromboplastin Time 34.2 SEC (26.0-36.4)
[2022-08-25 10:48] LABS: Bilirubin Total 0.3 mg/dL (0.0-1.0)
--- NOTE | 2022-08-25 10:58 | PC.NURSE ---
mri screening completed
[2022-08-25 11:03] LABS: Magnesium 1.9 mg/dL (1.6-2.6)
--- NOTE | 2022-08-25 11:16 | PC.NURSE ---
to mri at this time
== END 2022-08-25 13:51 | disposition home or self-care (01) ==
PROVIDERS: Physician Assistant; Emergency Provider Emergency Medicine; PCP Internal Medicine
DX: H43.392 Other vitreous opacities, left eye (principal); H53.8 Other visual disturbances; E11.9 Type 2 diabetes mellitus without complications; I69.351 Hemiplegia and hemiparesis following cerebral infarction affecting right dominant side; Z86.718 Personal history of other venous thrombosis and embolism; Z79.01 Long term (current) use of anticoagulants; Z79.4 Long term (current) use of insulin; Z79.899 Other long term (current) drug therapy
CPT/HCPCS: 36415; 70450; 70551; 80048; 80076; 83735; 85025; 85610; 85730; 99283; 99285

== ENCOUNTER → 2022-08-31 13:54 | Outpatient (BNVA) | payer MEDICARE, MEDICAID, SELFPAY | PROVIDERS: PCP Internal Medicine; Visit Provider Urology | DX: N40.1 Benign prostatic hyperplasia with lower urinary tract symptoms (principal); N13.8 Other obstructive and reflux uropathy; R35.1 Nocturia; R39.15 Urgency of urination | CPT/HCPCS: 52000; 99212 ==

== ENCOUNTER 2022-10-09 12:45 | Outpatient (RCR) | payer MEDICARE, MEDICAID, SELFPAY | END 2023-01-15 13:36 | disposition home or self-care (01) | LOC: HO.WCC 12:45 | PROVIDERS: PCP Internal Medicine; Visit Provider Physician Assistant | DX: E11.621 Type 2 diabetes mellitus with foot ulcer (principal); L97.522 Non-pressure chronic ulcer of other part of left foot with fat layer exposed; L84 Corns and callosities; E11.69 Type 2 diabetes mellitus with other specified complication; M86.9 Osteomyelitis, unspecified; E11.40 Type 2 diabetes mellitus with diabetic neuropathy, unspecified; E11.22 Type 2 diabetes mellitus with diabetic chronic kidney disease; I12.9 Hypertensive chronic kidney disease with stage 1 through stage 4 chronic kidney disease, or unspecified chronic kidney disease; N18.9 Chronic kidney disease, unspecified; I25.10 Atherosclerotic heart disease of native coronary artery without angina pectoris; I25.2 Old myocardial infarction; Z86.19 Personal history of other infectious and parasitic diseases; Z86.73 Personal history of transient ischemic attack (TIA), and cerebral infarction without residual deficits | CPT/HCPCS: 11042; 11055; 97597; 99212 ==

== ENCOUNTER 2022-11-15 15:51 | Outpatient (REF) | payer MEDICARE, MEDICAID, SELFPAY ==
--- NOTE | ~2022-11-15 | MR_ITS ---
EXAMINATION: MRI OF THE LEFT FOOT WITH AND WITHOUT CONTRAST. CLINICAL INFORMATION: Left great toe infection. Question osteomyelitis. COMPARISON: Radiograph dated 07/18/2022 TECHNIQUE: Multiplanar MR imaging was obtained through the left forefoot on a 1.5 Barbara magnet before and after intravenous administration of contrast material. A total of 20 mL Gadavist was administered. FINDINGS: There is skin thickening at the great toe. A small skin ulceration is suspected at the plantar aspect of the toe at the level of the distal phalanx and interphalangeal joint. No appreciable abnormal enhancement in this region. There is very subtle increased signal within the distal phalanx diffusely on T2-weighted images without significant loss of signal intensity on T1-weighted images. No abscess. No septic arthritis. There is ekhz-iw-hgecfwbq osteoarthritis at the first MTP joint with nonuniform cartilage loss, marginal osteophytes and articular surface remodeling as well as hallux valgus. There is lateral shift of the hallux sesamoids in this region. Additional mild osteoarthritis is present in multiple interphalangeal joints including the great toe IP joint. There is mild multifocal osteoarthritis in the midfoot including the tarsometatarsal and naviculocuneiform joints. No acute osseous findings in the midfoot. No joint effusions. There is fatty atrophy in the intrinsic foot musculature with associated intrinsic foot musculature edema and enhancement. The medial band of the plantar fascia demonstrates nodularity and thickening distally at the level of the first metatarsal, measuring up to 4 mm in thickness, possibly the result of an old injury or due to superimposed chronic plantar fibromatosis. MR/MR foot LT wo/w con IMPRESSION: 1. Small skin ulceration at the plantar aspect of the great toe. Subtle underlying distal cord signal abnormality in the great toe distal phalanx without abnormal enhancement is of uncertain etiology, likely reactive in nature. Very early osteomyelitis is on the differential, though felt to be less likely. Swxa-od-fwknxtzs osteoarthritis in the first MTP joint with hallux valgus. 2. Diffuse edema signal and enhancement in the intrinsic foot musculature, most consistent with denervation changes. 3. 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
== END 2022-11-15 15:52 | disposition home or self-care (01) ==
LOC: HO.MRI 15:51
PROVIDERS: PCP Internal Medicine; Visit Provider Physician Assistant
DX: L97.522 Non-pressure chronic ulcer of other part of left foot with fat layer exposed (principal)
CPT/HCPCS: 73720; A9585

== ENCOUNTER → 2022-12-05 14:27 | Outpatient (BNVA) | payer MEDICARE, MEDICAID, SELFPAY | PROVIDERS: PCP Internal Medicine; Visit Provider Internal Medicine | DX: M86.9 Osteomyelitis, unspecified (principal) | CPT/HCPCS: 99212 ==

== ENCOUNTER → 2022-12-18 13:17 | Outpatient (BNVA) | payer MEDICARE, MEDICAID, SELFPAY | PROVIDERS: PCP Internal Medicine; Visit Provider Urology | DX: S30.201A Contusion of unspecified external genital organ, male, initial encounter (principal) | CPT/HCPCS: 99212 ==

== ENCOUNTER 2022-12-25 | Outpatient (REF) | payer MEDICARE, MEDICAID, SELFPAY | END 2022-12-25 00:01 | LOC: HO.US | PROVIDERS: PCP Internal Medicine | DX: Z01.818 Encounter for other preprocedural examination (principal); M86.9 Osteomyelitis, unspecified | CPT/HCPCS: 51798 ==

== ENCOUNTER 2022-12-25 07:06 | Day surgery (SDC) | payer MEDICARE, MEDICAID, SELFPAY ==
--- NOTE | ~2022-12-25 | IR_ITS ---
PROCEDURE: IR ULTRASOUND-GUIDED VENOUS ACCESS IR INSERTION OF TUNNEL CATHETER CLINICAL INFORMATION: Osteomyelitis of the foot. Long-term IV antibiotic requirement. COMPARISON: None available. TECHNIQUE: Procedure and risks and benefits including bleeding, infection and pneumothorax were discussed with the patient and informed consent was obtained. All elements of maximal sterile barrier technique followed including use of cap, mask, sterile gown, sterile gloves, a sterile full body drape and hand hygiene. Also followed skin preparation with 2% chlorhexidine for cutaneous antisepsis, and sterile ultrasound preparation with sterile gel and probe cover when applicable. The right neck and upper chest were prepped and draped in usual sterile fashion. The skin and soft tissues were anesthetized with 1% lidocaine plain. A small incision in the lower neck was made. Using ultrasound guidance and a 5 Nicaraguan micropuncture system, right internal jugular vein access was obtained. Over an 0.018 wire, a 5 Nicaraguan dilator was positioned in the SVC. The skin and soft tissues of the right upper anterior chest were anesthetized with 1% lidocaine plain. A small incision was made. A subcutaneous tunnel from the chest to the neck incision was anesthetized with 1% lidocaine plain. Using a tunneler, a 5 Nicaraguan single-lumen Proline catheter was tunneled from the chest to the neck incision. An 0.025 guidewire was advanced through the 5 Nicaraguan dilator into the IVC. 5 Nicaraguan dilator was exchanged for a peel-away sheath. Using bent wire technique, catheter length was estimated and the catheter was cut. Catheter length is 21 cm. The catheter was fed through the peel-away sheath. The neck incision was closed using a 3-0 absorbable subcuticular suture. Chest incision was closed using 3-0 absorbable mattress suture. The catheter had good blood return, flushed easily and was instilled with 5 mL heparin 100 unit per mL solution. Real-time ultrasound guidance was used to document vein patency and for needle entry. A formal ultrasound picture was recorded. FLUOROSCOPY TIME: 1.2 minutes. FLUOROSCOPIC IMAGES SAVED: 1. DAP: 331 cGy-cm2 SEDATION/TIME: Conscious sedation was provided by registered nurse under my direct supervision with continuous hemodynamic monitoring. Patient received Versed 1 mg and fentanyl 50 mcg intravenously during the procedure. Emqw-kr-dqwe total sedation contact time was 23 minutes. FINDINGS: There is a right internal jugular 5 Nicaraguan single-lumen Proline catheter with tip projecting over the SVC. IR/IR us guide venous access IMPRESSION: Right internal jugular 5 Nicaraguan single-lumen Proline catheter placement.
[2022-12-25 07:25] VITALS: BMI 35.7
[2022-12-25 07:39] LABS: MANUAL DIFF FLAG NO
[2022-12-25 07:45] LABS: Basophils Absolute Auto 0.1 X10*3/uL (0.0-0.2); Basophils Percent Auto 0.5 % (0-2); Eosinophils Absolute Auto 0.3 X10*3/uL (0.0-0.4); Eosinophils Percent Auto 3.5 % (0-4); Hematocrit 43.2 % (42.0-52.0); Hemoglobin 14.4 g/dl (14.0-18.0); Imm Gran Abs Auto 0.06 X10*3/uL (0.00-0.03); Imm Gran Pct Auto 0.6 % (0.0-0.4); Lymphocytes Absolute Auto 1.7 X10*3/uL (1.2-4.9); Lymphocytes Percent Auto 18.7 % (20-40); Mean Corpuscular HGB Conc 33.3 g/dl (31.0-36.0); Mean Corpuscular Hemoglobin 29.3 pg (27.0-33.0); Mean Corpuscular Volume 87.8 fL (80.0-98.0); Mean Platelet Volume 10.1 fL (9.4-12.4); Monocytes Absolute Auto 0.6 X10*3/uL (0.1-1.2); Monocytes Percent Auto 6.2 % (2-11); Neutrophils Absolute Auto 6.6 x10*3/uL (2.0-8.3); Neutrophils Percent Auto 70.5 % (45-73); Platelet Count 274 X10*3/uL (160-400); Red Blood Count 4.92 X10*6/uL (4.60-5.80); Red Cell Distribution Width 12.5 % (11.0-16.0); White Blood Count 9.3 X10*3/uL (4.8-10.8)
[2022-12-25 07:49] LABS: Glucose, Whole Blood 239 mg/dL (60-115)
[2022-12-25 07:53] LABS: Partial Thromboplastin Time 30.7 SEC (26.0-36.4)
[2022-12-25 09:40] VITALS: BP 113/44; PULSE 69; RESP 14; TEMP 36.3; O2SAT 93
[2022-12-25 09:55] VITALS: BP 127/56; PULSE 63; RESP 17; O2SAT 92
[2022-12-25 10:10] VITALS: BP 120/57; PULSE 67; RESP 20; O2SAT 92
--- NOTE | 2022-12-25 10:14 | HO.RADPN ---
RADIOLOGY Narrative Narrative: RIJ 5 fr single lumen proline catheter placed. Tip in SVC. Catheter length 21 cm.
[2022-12-25 10:25] VITALS: BP 129/49; PULSE 62; RESP 18; O2SAT 94
[2022-12-25 10:40] VITALS: BP 134/74; PULSE 71; RESP 18; TEMP 36.3; O2SAT 93
== END 2022-12-25 10:54 | disposition home or self-care (01) ==
PROVIDERS: Radiology Diagnostic Radiology; PCP Preventive Medicine Preventive Medicine/Occupational Environmental Medicine; Visit Provider Radiology Diagnostic Radiology
DX: Z45.2 Encounter for adjustment and management of vascular access device (principal); M86.9 Osteomyelitis, unspecified; I69.928 Other speech and language deficits following unspecified cerebrovascular disease; Z99.89 Dependence on other enabling machines and devices
CPT/HCPCS: 36415; 36558; 76937; 82947; 85025; 85610; 85730; 99152; C1751; C1769; J0690; J1642; J2250; J3010

== ENCOUNTER 2023-01-02 12:32 | Outpatient (REF) | payer MEDICARE, MEDICAID, SELFPAY ==
[2023-01-02 12:37] LABS: MANUAL DIFF FLAG NO
[2023-01-02 12:42] LABS: Basophils Percent Auto 0.6 % (0-2); Eosinophils Absolute Auto 0.3 X10*3/uL (0.0-0.4); Eosinophils Percent Auto 4.1 % (0-4); Hematocrit 42.1 % (42.0-52.0); Hemoglobin 14.1 g/dl (14.0-18.0); Imm Gran Abs Auto 0.04 X10*3/uL (0.00-0.03); Imm Gran Pct Auto 0.6 % (0.0-0.4); Lymphocytes Absolute Auto 1.7 X10*3/uL (1.2-4.9); Lymphocytes Percent Auto 24.6 % (20-40); Mean Corpuscular HGB Conc 33.5 g/dl (31.0-36.0); Mean Corpuscular Hemoglobin 29.7 pg (27.0-33.0); Mean Corpuscular Volume 88.8 fL (80.0-98.0); Monocytes Absolute Auto 0.7 X10*3/uL (0.1-1.2); Monocytes Percent Auto 9.9 % (2-11); Neutrophils Absolute Auto 4.2 x10*3/uL (2.0-8.3); Neutrophils Percent Auto 60.2 % (45-73); Platelet Count 276 X10*3/uL (160-400); Red Blood Count 4.74 X10*6/uL (4.60-5.80); Red Cell Distribution Width 12.7 % (11.0-16.0); White Blood Count 6.9 X10*3/uL (4.8-10.8)
[2023-01-02 13:20] LABS: Erythrocyte Sedimentation Rate 11 MM/HR (0-15)
[2023-01-02 13:31] LABS: Estimated Glomerular Filt Rate 38
== END 2023-01-02 12:33 | disposition home or self-care (01) ==
LOC: HO.HVNA 12:32
PROVIDERS: Visit Provider Internal Medicine
DX: L03.032 Cellulitis of left toe (principal); Z79.2 Long term (current) use of antibiotics
CPT/HCPCS: 36415; 82565; 85025; 85652

== ENCOUNTER 2023-01-08 12:21 | Outpatient (REF) | payer MEDICARE, MEDICAID, SELFPAY ==
[2023-01-08 12:25] LABS: MANUAL DIFF FLAG NO
[2023-01-08 12:30] LABS: Basophils Percent Auto 0.6 % (0-2); Eosinophils Absolute Auto 0.3 X10*3/uL (0.0-0.4); Eosinophils Percent Auto 3.9 % (0-4); Hematocrit 44.6 % (42.0-52.0); Imm Gran Abs Auto 0.02 X10*3/uL (0.00-0.03); Imm Gran Pct Auto 0.3 % (0.0-0.4); Lymphocytes Absolute Auto 1.8 X10*3/uL (1.2-4.9); Lymphocytes Percent Auto 25.1 % (20-40); Mean Corpuscular HGB Conc 33.6 g/dl (31.0-36.0); Mean Corpuscular Hemoglobin 29.7 pg (27.0-33.0); Mean Corpuscular Volume 88.3 fL (80.0-98.0); Mean Platelet Volume 11.6 fL (9.4-12.4); Monocytes Absolute Auto 0.7 X10*3/uL (0.1-1.2); Monocytes Percent Auto 10.1 % (2-11); Neutrophils Absolute Auto 4.2 x10*3/uL (2.0-8.3); Platelet Count 238 X10*3/uL (160-400); Red Blood Count 5.05 X10*6/uL (4.60-5.80)
[2023-01-08 13:10] LABS: Erythrocyte Sedimentation Rate 9 MM/HR (0-15)
[2023-01-08 13:19] LABS: Estimated Glomerular Filt Rate 44
== END 2023-01-08 12:22 | disposition home or self-care (01) ==
LOC: HO.HVNA 12:21
PROVIDERS: Visit Provider Internal Medicine
DX: L03.032 Cellulitis of left toe (principal); Z79.2 Long term (current) use of antibiotics
CPT/HCPCS: 36415; 82565; 85025; 85652

== ENCOUNTER 2023-01-16 12:24 | Outpatient (REF) | payer MEDICARE, MEDICAID, SELFPAY ==
[2023-01-16 12:28] LABS: MANUAL DIFF FLAG NO
[2023-01-16 12:47] LABS: Basophils Absolute Auto 0.1 X10*3/uL (0.0-0.2); Basophils Percent Auto 0.9 % (0-2); Eosinophils Absolute Auto 0.3 X10*3/uL (0.0-0.4); Hematocrit 42.4 % (42.0-52.0); Hemoglobin 14.2 g/dl (14.0-18.0); Imm Gran Abs Auto 0.02 X10*3/uL (0.00-0.03); Imm Gran Pct Auto 0.3 % (0.0-0.4); Lymphocytes Absolute Auto 1.3 X10*3/uL (1.2-4.9); Lymphocytes Percent Auto 22.1 % (20-40); Mean Corpuscular HGB Conc 33.5 g/dl (31.0-36.0); Mean Corpuscular Hemoglobin 29.3 pg (27.0-33.0); Mean Corpuscular Volume 87.6 fL (80.0-98.0); Mean Platelet Volume 11.7 fL (9.4-12.4); Monocytes Absolute Auto 0.6 X10*3/uL (0.1-1.2); Monocytes Percent Auto 10.5 % (2-11); Neutrophils Absolute Auto 3.6 x10*3/uL (2.0-8.3); Neutrophils Percent Auto 61.2 % (45-73); Platelet Count 199 X10*3/uL (160-400); Red Blood Count 4.84 X10*6/uL (4.60-5.80); Red Cell Distribution Width 12.9 % (11.0-16.0); White Blood Count 5.8 X10*3/uL (4.8-10.8)
[2023-01-16 13:27] LABS: Erythrocyte Sedimentation Rate 6 MM/HR (0-15)
[2023-01-16 14:03] LABS: Estimated Glomerular Filt Rate 38
== END 2023-01-16 12:25 | disposition home or self-care (01) ==
LOC: HO.HVNA 12:24
PROVIDERS: Visit Provider Internal Medicine
DX: M86.9 Osteomyelitis, unspecified (principal)
CPT/HCPCS: 36415; 82565; 85025; 85652; 99212

== ENCOUNTER 2023-01-24 14:44 | Outpatient (REF) | payer MEDICARE, MEDICAID, SELFPAY ==
[2023-01-24 14:47] LABS: MANUAL DIFF FLAG NO
[2023-01-24 15:04] LABS: Basophils Percent Auto 0.5 % (0-2); Eosinophils Absolute Auto 0.3 X10*3/uL (0.0-0.4); Eosinophils Percent Auto 5.6 % (0-4); Hematocrit 40.6 % (42.0-52.0); Hemoglobin 13.7 g/dl (14.0-18.0); Imm Gran Abs Auto 0.02 X10*3/uL (0.00-0.03); Imm Gran Pct Auto 0.3 % (0.0-0.4); Lymphocytes Absolute Auto 1.1 X10*3/uL (1.2-4.9); Lymphocytes Percent Auto 19.9 % (20-40); Mean Corpuscular HGB Conc 33.7 g/dl (31.0-36.0); Mean Corpuscular Hemoglobin 29.1 pg (27.0-33.0); Mean Corpuscular Volume 86.2 fL (80.0-98.0); Mean Platelet Volume 11.4 fL (9.4-12.4); Monocytes Absolute Auto 0.6 X10*3/uL (0.1-1.2); Monocytes Percent Auto 10.5 % (2-11); Neutrophils Absolute Auto 3.6 x10*3/uL (2.0-8.3); Neutrophils Percent Auto 63.2 % (45-73); Platelet Count 188 X10*3/uL (160-400); Red Blood Count 4.71 X10*6/uL (4.60-5.80); White Blood Count 5.7 X10*3/uL (4.8-10.8)
[2023-01-24 15:31] LABS: Estimated Glomerular Filt Rate 42
[2023-01-24 15:59] LABS: Erythrocyte Sedimentation Rate 5 MM/HR (0-15)
== END 2023-01-24 14:45 | disposition home or self-care (01) ==
LOC: HO.LNP 14:44
PROVIDERS: Visit Provider Internal Medicine
DX: L03.032 Cellulitis of left toe (principal); Z79.2 Long term (current) use of antibiotics
CPT/HCPCS: 82565; 85025; 85652

== ENCOUNTER 2023-01-31 12:11 | Outpatient (REF) | payer MEDICARE, MEDICAID, SELFPAY ==
[2023-01-31 12:14] LABS: MANUAL DIFF FLAG NO
[2023-01-31 12:24] LABS: Basophils Percent Auto 0.7 % (0-2); Eosinophils Absolute Auto 0.3 X10*3/uL (0.0-0.4); Eosinophils Percent Auto 5.4 % (0-4); Hematocrit 45.3 % (42.0-52.0); Hemoglobin 15.2 g/dl (14.0-18.0); Imm Gran Abs Auto 0.02 X10*3/uL (0.00-0.03); Imm Gran Pct Auto 0.3 % (0.0-0.4); Lymphocytes Absolute Auto 1.4 X10*3/uL (1.2-4.9); Lymphocytes Percent Auto 23.6 % (20-40); Mean Corpuscular HGB Conc 33.6 g/dl (31.0-36.0); Mean Corpuscular Hemoglobin 29.2 pg (27.0-33.0); Mean Corpuscular Volume 87.1 fL (80.0-98.0); Mean Platelet Volume 11.2 fL (9.4-12.4); Monocytes Absolute Auto 0.6 X10*3/uL (0.1-1.2); Monocytes Percent Auto 9.8 % (2-11); Neutrophils Absolute Auto 3.6 x10*3/uL (2.0-8.3); Neutrophils Percent Auto 60.2 % (45-73); Platelet Count 225 X10*3/uL (160-400); Red Cell Distribution Width 13.2 % (11.0-16.0); White Blood Count 5.9 X10*3/uL (4.8-10.8)
[2023-01-31 12:51] LABS: Estimated Glomerular Filt Rate 42
[2023-01-31 13:25] LABS: Erythrocyte Sedimentation Rate 2 MM/HR (0-15)
== END 2023-01-31 12:12 | disposition home or self-care (01) ==
LOC: HO.HVNA 12:11
PROVIDERS: Visit Provider Internal Medicine
DX: L03.032 Cellulitis of left toe (principal)
CPT/HCPCS: 36415; 82565; 85025; 85652

== ENCOUNTER → 2023-02-07 10:34 | Day surgery (SDC) | payer MEDICARE, MEDICAID, SELFPAY ==
--- NOTE | ~2023-02-07 | IR_ITS ---
EXAMINATION: IR CVC REMOVAL OF PERMACATHETER CLINICAL INDICATION: Osteomyelitis. COMPARISON: None available. TECHNIQUE: Following explaining removal of Permacatheter procedure, benefits and risks, the patient was placed supine on fluoroscopy table. The area around the Permacatheter along the right anterior chest wall was cleaned. Incision was slightly stretched with blunt artery forceps and the catheter was gently pulled without any resistance. Simple pressure dressing was placed. There was no bleeding seen. IR/IR cvc remove any age FINDINGS/IMPRESSION: Successful removal of right anterior chest wall Permacatheter without any bleeding..
--- OUTSIDE RECORDS SUMMARY | 2023-02-07 10:38 | XMS_ITS | Patient Health Record ---
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 615458128 Problem Hallux valgus (acquired), left foot M20.12 confirmed 46621418 Problem Osteomyelitis of left foot, unspecified type M86.9 confirmed [id number] Problem Type 1 diabetes mellitus with diabetic polyneuropath y E10.42 confirmed [id number] ALLERGIES No Known Allergies ENCOUNTERS from 1950 to 2023-02-07 Encounter Location Date Provider Diagnosis [address] [address] January, Ced Hernandez Type 1 diabetes mellitus with diabetic polyneuropathy E10.42 ; Skin disease L98.9 ; 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 ; Hallux valgus (acquired), left foot M20.12 and Osteomyelitis of left foot, unspecified type M86.[address] [address] Dec, Ced Hernandez Type 1 diabetes mellitus with diabetic polyneuropathy E10.42 ; Skin disease L98.9 ; 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 ; Hallux valgus (acquired), left foot M20.12 and Osteomyelitis of left foot, unspecified type M86.9 [address] [address] [place] [address] Nov, Ced Hernandez [facility] [address] [place] [address] Nov, Ced Hernandez Type 1 diabetes mellitus with diabetic polyneuropathy E10.42 ; Skin disease L98.9 ; 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 ; Hallux valgus (acquired), left foot M20.12 and Osteomyelitis of left foot, unspecified type M86.9 [facility] [address] [place] [address] Sep, Ced Hernandez IMMUNIZATIONS Vaccine Route Administration Date Status COVID-19 Moderna Vaccine Unknown May 17, 2022 Ad ministered Influenza Unknown May 17, 2022 Administered SOCIAL HISTORY Tobacco Use: Social History Observation Description Date Details (start date - stop date) Never Smoker Sex Assigned At : Social History Observation Description Sex Assigned At Unknown Alcohol Screen Question Answer Notes Did you have a drink containing alcohol in the p ast year? No Points 0 Interpretation Negative Tobacco Use/Smoking Question Answer Notes Additional Findings: Tobacco Non-User Current no n-smoker Are you a: never smoker Tobacco use other than smoking: Question Answer Notes Are you an other tobacco user? No REASON FOR REFERRAL No Information VITAL SIGNS from 1950 to 2023-02-07 Height 5ft 8in in Dec, Weight 235 lbs Dec, BMI 35.73 kg/m2 Dec, Blood pressure systolic 120 mm Hg Dec, Blood pressure diastolic 80 mm Hg Dec, MEDICATIONS Medication SIG (Take, Route, Frequency, Duration) Notes Start Date End Date Status Extra Depth Diabetic Shoes with 3 Pair Custom heat-molded multi-density innersoles for 1 year Dx: Active RESULTS from 1950 to 2023-02-07 Component Value Reference Range Notes HEMOGLOBIN A1C (GLYCOHEMOGLO BIN) Reviewed date:12/05/2022 08:32:48 Interpretation: Performing Lab: Notes/Report: TOTAL HEMOGLOBIN (HGBA1C) HEMOGLOBIN A1C (HH) 8.8 HEMOGLOBIN A1C % (HH) ESTIMATED AVG GLUCOSE REASON FOR VISIT No Information MEDICAL (GENERAL) HISTORY Type Description Date Medical History Back,Hip,and Knee pain Medical History Diabetic type ll Medical History Poor circulation Medical History Stroke Medical History ulcer Surgical History back surgery- Spine L5 03/06 Surgical History cataract surgery Surgical History appendectomy Hospitalization History Woundcare every week to week and a half MENTAL STATUS No Information ASSESSMENTS Encounter Date Diagnosis Assessment Notes Treatment Notes Treatment Clinical Notes January, Type 1 diabetes mellitus with diabetic polyneuropathy (ICD-10 - E10.42) January, Skin disease (ICD-10 - L98.9) January, Non-pressure chronic ulcer of other part of left foot with fat layer exposed (ICD-10 - L97.522) January, Hallux valgus (acquired), left foot (ICD-10 - M20.12) January, Osteomyelitis of lef t foot, unspecified type (ICD-10 - M86.9) Dec, Type 1 diabetes mellitus with diabetic polyneuropathy (ICD-10 - E10.42) Dec, Skin disease (ICD-10 - L98.9) Dec, Non-pressure chronic ulcer of other part of left foot with fat layer exposed (ICD-10 - L97.522) Dec, Hallux valgus (acquired), left foot (ICD-10 - M20.12) Dec, Osteomyelitis of lef t foot, unspecified type (ICD-10 - M86.9) Nov, Type 1 diabetes mellitus with diabetic polyneuropathy (ICD-10 - E10.42) Nov, Skin disease (ICD-10 - L98.9) Nov, Non-pressure chronic ulcer of other part of left foot with fat layer exposed (ICD-10 - L97.522) Nov, Hallux valgus (acquired), left foot (ICD-10 - M20.12) Nov, Osteomyelitis of lef t foot, unspecified type (ICD-10 - M86.9) PLAN OF TREATMENT Medication Medication Name Sig Start Date Stop Date Extra Depth Diabetic Shoes w ith 3 Pair Custom heat-molded multi-density innersoles for 1 year Dx: Pending Tests Test Name Order Date [id number] SKIN/TISSUE 2023-01-09 X ray : Foot, left 3V 2022-12-05 [id number]-[id number] SKIN/TISSUE 2022-12-05 [id number] SKIN LESIONS, OVER 4 [id number] DYSTROPHIC NAILS ANY # 20 06-12-21 Next Appt Details 6 Weeks Reason: Provider Name:Ced Harris Hernandez, 2023-02-07 02:45:00 PM, [address] [place] [address], [phone], Insurance Providers Payer Name Payer Address Payer Phone Insured Name Patient Relationship to Insured Coverage Start Date Coverage End Date Subscriber Number Group Number [employer] PPO [address] [facility] [address] Alyssa Christianson is Self - patient is the insured [id number]
== END ==
PROVIDERS: PCP Internal Medicine; Visit Provider Internal Medicine
DX: Z45.2 Encounter for adjustment and management of vascular access device (principal); M86.9 Osteomyelitis, unspecified

== ENCOUNTER → 2023-02-15 14:45 | Outpatient (BNVA) | payer MEDICARE, MEDICAID, SELFPAY | PROVIDERS: PCP Internal Medicine; Visit Provider Internal Medicine | DX: M86.9 Osteomyelitis, unspecified (principal) | CPT/HCPCS: 99212 ==

== ENCOUNTER → 2023-03-15 15:48 | Outpatient (BNVA) | payer MEDICARE, MEDICAID, SELFPAY | PROVIDERS: Visit Provider Nurse Practitioner Family | DX: N40.1 Benign prostatic hyperplasia with lower urinary tract symptoms (principal); N13.8 Other obstructive and reflux uropathy; R35.1 Nocturia; R35.0 Frequency of micturition; R39.15 Urgency of urination; R97.20 Elevated prostate specific antigen [PSA]; N52.1 Erectile dysfunction due to diseases classified elsewhere; N50.1 Vascular disorders of male genital organs; E11.65 Type 2 diabetes mellitus with hyperglycemia; E11.69 Type 2 diabetes mellitus with other specified complication; M86.9 Osteomyelitis, unspecified; I63.9 Cerebral infarction, unspecified; Z86.718 Personal history of other venous thrombosis and embolism; Z79.01 Long term (current) use of anticoagulants; Z79.4 Long term (current) use of insulin; Z79.899 Other long term (current) drug therapy | CPT/HCPCS: 99212 ==

== ENCOUNTER 2023-03-30 09:35 | Outpatient (AMB) | payer MEDICARE, MEDICAID, SELFPAY ==
--- OUTSIDE RECORDS SUMMARY | 2023-03-30 09:37 | XMS_ITS | Patient Health Record ---
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 Name Role Phone Manan Reinoso MD Primary Care Provider Ced Velarde Unavailable [phone] ALLERGIES No Known Allergies RESULTS Component Value Reference Range Notes HEMOGLOBIN A1C (GLYCOHEMOGLO BIN) Reviewed date:12/05/2022 08:32:48 AM Interpretation: Performing Lab: Notes/Report: TOTAL HEMOGLOBIN (HGBA1C) HEMOGLOBIN A1C (HH) 8.8 HEMOGLOBIN A1C % (HH) ESTIMATED AVG GLUCOSE REASON FOR REFERRAL No Information MEDICATIONS Medication SIG (Take, Route, Frequency, Duration) Notes Start Date End Date Status Midodrine HCl Active Metoprolol Tartrate Active Extra Depth Diabetic Shoes with 3 Pair Custom heat-molded multi-density innersoles for 1 year Dx: Active Pantoprazole Sodium 40 MG 1 tablet Orall y Once a day for 30 day(s) Active Magnesium 400 MG as directed Orally Active Lantus Active HumaLOG Active Jardiance 25 MG 1 tablet Orally Once a day Active Finasteride 5 MG 1 tablet Orally Once a day for 30 day(s) Active Eliquis 5 MG 1 tablet Orally Twic e a day for 30 day(s) Active ASA Active Tadalafil 5 MG 1 tablet as needed O rally Once a day for 30 day(s) Active Antibiotic IV Active Rosuvastatin Calcium 40 MG 1 tablet Oral ly Once a day for 30 day(s) Active IMMUNIZATIONS Vaccine Route Administration Date Status Comme nts COVID-19 Moderna Vaccine Unknown 05/17/2022 Administered 2020,2020 2020 Unsure dates Influenza Unknown 05/17/2022 Administered SOCIAL HISTORY Tobacco Use: Social History Observation Description Date Details (start date - stop date) Never Smoker NA - NA Sex Assigned At : Social History Observation Description Sex Assigned At Unknown Tobacco Use/Smoking Question Answer Notes Are you a: nonsmoker Additional Findings: Tobacco Non-User Current no n-smoker Alcohol Screen Question Answer Notes Did you have a drink containing alcohol in the p ast year? No Points 0 Interpretation Negative Tobacco use other than smoking: Question Answer Notes Are you an other tobacco user? No PROBLEMS Problem Type ICD Code Onset Dates Problem Status W/U Status Risk SNOMED Code Notes Problem Hallux valgus (acquired), left foot (M20.12) Active confirmed Acquired hallu x valgus (42441646) Problem Non-pressure chronic ulcer of other part of left foot with fat layer exposed (L97.522) Active confirmed Chronic ulcer o f foot (730068534) Problem Type 1 diabetes mellitus with diabetic polyneuropathy (E10.42) Active confirmed Polyneuropathy due to diabetes mellitus type I (259285858) Problem Osteomyelitis of left foot, unspecified type (M86.9) Active confirmed [id number] PROCEDURES Procedure Date Ordered Date Performed Result Body Sit e 01080-XQJSPRX SKIN/TISSUE 12/05/2022 N/A 55443-HCLB SKIN LESIONS, OVER 4 12/05/2022 N/A K5110-RKRUWAVE DYSTROPHIC NAILS ANY # 12/05/2022 N/A 33723-[id number] SKIN/TISSUE 01/09/2023 N/A 38359-CSLM SKIN LESIONS, OVER 4 02/07/2023 N/A Z0132-UULEMBKR DYSTROPHIC NAILS ANY # 02/07/2023 N/A Encounters Encounter Location Date Provider Diagnosis [facility] [address] [address] [facility] [address] [address] [facility] [address] 12/05/[facility] Type 1 diabetes mellitus with diabetic polyneuropathy E10.42 ; Skin disease L98.9 ; 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 ; Hallux valgus (acquired), left foot M20.12 and Osteomyelitis of left foot, unspecified type M86.[address] [address] 12/05/2022 Ced Hernandez [address] [address] 01/09/2023 Ced Hernandez Type 1 diabetes mellitus with diabetic polyneuropathy E10.42 ; Skin disease L98.9 ; 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 ; Hallux valgus (acquired), left foot M20.12 and Osteomyelitis of left foot, unspecified type M86.[address] [address] 02/07/2023 Ced Hernandez Type 1 diabetes mellitus with diabetic polyneuropathy E10.42 ; Skin disease L98.9 ; Hallux valgus (acquired), left foot M20.12 and Tinea unguium B35.1 [facility] [address] [address] 02/07/2023 Ced Hernandez ASSESSMENTS Encounter Date Diagnosis Assessment Notes Treatment Notes Treatment Clinical Notes 12/05/2022 Type 1 diabetes mellitus with diabetic polyneuropathy (ICD-10 - E10.42) 01/09/2023 Type 1 diabetes mellitus with diabetic polyneuropathy (ICD-10 - E10.42) 02/07/2023 Type 1 diabetes mellitus with diabetic polyneuropathy (ICD-10 - E10.42) 02/07/2023 Skin disease (ICD-10 - L98.9) 01/09/2023 Skin disease (ICD-10 - L98.9) 02/07/2023 Hallux valgus (acquired), left foot (ICD-10 - M20.12) 12/05/2022 Skin disease (ICD-10 - L98.9) 01/09/2023 Hallux valgus (acquired), left foot (ICD-10 - M20.12) 01/09/2023 Non-pressure chronic ulcer of other part of left foot with fat layer exposed (ICD-10 - L97.522) 12/05/2022 Hallux valgus (acquired), left foot (ICD-10 - M20.12) 12/05/2022 Non-pressure chronic ulcer of other part of left foot with fat layer exposed (ICD-10 - L97.522) 02/07/2023 Tinea unguium (ICD-1 0 - B35.1) 12/05/2022 Osteomyelitis of lef t foot, unspecified type (ICD-10 - M86.9) 01/09/2023 Osteomyelitis of lef t foot, unspecified type (ICD-10 - M86.9) PLAN OF TREATMENT Pending Test Test Name Order Date X ray : Foot, left 3V 12/05/2022 [id number] SKIN/TISSUE 01/09/2023 55814-XOKHHEQ SKIN/TISSUE 12/05/2022 49837-UMPR SKIN LESIONS, OVER 4 02/08/20 39242-WUFL SKIN LESIONS, OVER 4 12/06/19 R6835-[id number] DYSTROPHIC NAILS ANY # [id number] DYSTROPHIC NAILS ANY # Next Appt Details Provider Name:Ced Hernnadez, 04/18/2023 02:00:00 PM, [address] [place], [address], Insurance Providers Payer Name Payer Address Payer Phone Subscriber Number Group Number Insured Name Patient Relationship to Insured Coverage Start Date Coverage End Date [employer] PPO [address] [place] [phone] [id number] Kirby Christianson Self - patient is the insured MEDICAL (GENERAL) HISTORY Medical History History ICD Code Back,Hip,and Knee pain Diabetic type ll Poor circulation Stroke ulcer Surgical History Surgery Date(Month/Year) back surgery- Spine L5 03/06 cataract surgery appendectomy Hospitalization History Reason Date(Month/Year)
--- NOTE | 2023-03-30 10:24 | AM.OFFWIN_ITS ---
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 ([place],disabled) Intake Note: pt is here for sore throat x7-10 days Patient Tobacco Use Status: Never used Tobacco Allergies almond [ALMONDS] Allergy (Severe, Verified 03/30/23 10:42) THROAT CLOSES pecan nut [PECAN] Allergy (Severe, Verified 03/30/23 10:42) THROAT CLOSES Medication List - Last Reconciled 03/30/23 by Vicente Hayward PA-C apixaban 5 mg PO BID atorvastatin 40 mg PO DAILY empagliflozin (Jardiance) 25 mg PO DAILY ferrous sulfate (FeroSul) 325 mg PO BEDTIME finasteride 5 mg PO BEDTIME gabapentin mg PO TID PRN insulin aspart U-100 (Novolog U-100 Insulin aspart) 20 units subcut BID insulin glargine (Lantus Solostar U-100 Insulin) 40 units subcut BID magnesium oxide 400 mg PO BID metoprolol tartrate 25 mg PO BID midodrine mg PO pantoprazole 40 mg PO DAILY pen needle, diabetic (Easy Touch) As directed rosuvastatin 40 mg PO DAILY tadalafil 5 mg PO DAILY 90 days terazosin 5 mg PO BEDTIME 90 days Do you need a note to return to daycare/school/sports/work: No HPI 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 Today strep testing negative. He denies any fevers, chills, dysphagia or vomiting. Denies any sick contacts at home. He reports most of his pain/discomfort is on the right side of his mid neck. Has not been using any aghd-clt-boratsd throat lozenges or meds. [facility] Medical History BPH (benign prostatic hyperplasia) CVA (cerebral vascular accident) DVT (deep venous thrombosis) Enlarged prostate without lower urinary tract symptoms (luts) Erectile dysfunction Frequency-urgency syndrome History of elevated PSA Osteomyelitis Subacute osteomyelitis of right foot Surgical History History of surgery Social History Patient Tobacco Use Status: Never used Tobacco Review of Systems Const Denies headache(s) Eyes Denies loss of vision ENT Denies vertigo, Denies dizziness, Denies headache(s) and Denies sore throat Card Denies chest pain, Denies leg edema and Denies lightheadedness Resp Denies cough, Denies hemoptysis and Denies wheezing GI Denies abdominal pain, Denies melena, Denies constipation, Denies diarrhea and Denies vomiting Denies dysuria, Denies urinary frequency and Denies urinary urgency Musc Denies arthralgias, Denies joint swelling, Denies numbness and Denies tingling Neuro Denies Abnormal speech present, Denies behavioral changes, Denies vertigo, Denies dizziness, Denies headache(s), Denies loss of vision, Denies memory loss, Denies numbness and Denies tingling Psych Denies anxiety, Denies behavioral changes, Denies depression, Denies memory loss and Denies panic attacks Sky/Lymph Denies easy bleeding and Denies easy bruising Aller/Immun Denies wheezing Physical Exam Vital Signs: Last Vital Signs Temp 97.7 F 03/30/23 10:29 Pulse 72 03/30/23 10:29 BP 120/74 03/30/23 10:29 Pulse Ox 96 03/30/23 10:29 Oxygen Delivery Method Room Air 03/30/23 10:29 Const General: healthy appearing, no acute distress, alert and awake Nutritional Appearance: well nourished Orientation/consciousness: oriented to person, oriented to place and oriented to time HEENT Other: PHARYNX WITHOUT ANY ERYTHEMA OR WHITE PATCHY LESIONS. Ears: TM's normal bilaterally General nose exam: Normal nasal mucous membranes and turbinates present Eyes Conjunctivae: conjunctivae normal Sclerae: sclerae normal Pupils: Equal, round and reactive pupils present Neck Neck: Yes no lymphadenopathy and Yes no JVD Thyroid: Thyroid normal Carotids: no bruits Resp Effort & Inspection: normal respiratory effort and not tachypneic Auscultation: no crackles, no rales, no rhonchi and no wheezes Cardio Rate: regular rate Rhythm: regular rhythm Heart sounds: no murmurs and normal S1 and S2 GI Palpation (GI): Soft to palpation, nontender, no hepatomegaly and no splenomegaly Auscultation: normal bowel sounds Skin General skin exam: no rashes or lesions noted and dry skin Neuro General: oriented to person, oriented to place and oriented to time Cranial nerves: Yes Equal, round and reactive pupils present Speech: No Abnormal speech present Gait exam (Neuro): Normal gait present Motor exam (neuro): no tremor noted Extrem Right upper extremity: full ROM Left upper extremity: full ROM Right lower extremity: full ROM; no edema Left lower extremity: full ROM; no edema Psych Mental Status: mental status grossly normal Speech and movement: Normal speech and movement present Affect: normal affect Attitude: cooperative Thought process: Normal thought process present Assessment & Plan Assessment & Plan (1) Pharyngitis: Code(s): J02.9 - Acute pharyngitis, unspecified Qualifiers: Pharyngitis/tonsillitis etiology: other specified organisms Qualified Code(s): J02.8 - Acute pharyngitis due to other specified organisms Plan: Patient's signs and symptoms most consistent with an acute pharyngitis. Strep testing today negative. Will impair clear treat with amoxicillin and prednisone due to right-sided throat pain. Advised to follow-up with PCP for possible ultrasound of the right-sided neck to evaluate for lymphadenopathy. Orders: Orders AMB Rapid Strep Screen Today Z13.9 - Encounter for screening, unspecified Medications: New amoxicillin 500 mg PO Q8H 7 days 21 tabs 0RF J02.8 - Acute pharyngitis due to other specified organisms prednisone 20 mg PO DAILY 4 days 4 tabs 0RF J02.8 - Acute pharyngitis due to other specified organisms Discontinued finasteride 5 mg PO DAILY 90 days 90 tabs 1RF R39.15 - Urgency of urination Coding Level of Care Code New Pt Level 3 (84497) Diagnoses Pharyngitis J02.8 Pharyngitis/tonsillitis etiology: other specified organisms
[2023-03-30 10:29] VITALS: BP 120/74; PULSE 72; TEMP 36.5; O2SAT 96
== END 2023-03-30 10:58 | disposition home or self-care (01) ==
PROVIDERS: PCP Internal Medicine; Visit Provider Physician Assistant
DX: J02.8 Acute pharyngitis due to other specified organisms (principal); Z13.9 Encounter for screening, unspecified
CPT/HCPCS: 87880; 99051; 99203

== ENCOUNTER 2023-06-21 08:56 | Outpatient (AMB) | payer MEDICARE, MEDICAID, SELFPAY ==
[2023-06-21 09:57] VITALS: BP 122/76; PULSE 76; TEMP 36.4; O2SAT 96; BMI 37.6
--- NOTE | 2023-06-21 09:57 | MHC.OFFWIV ---
Intake Vital Signs 06/21/23 09:57 Height 5 ft 8 in Weight 247 lb BMI 37.6 BP 122/76 Blood Pressure Location Rt brachial Position Sitting Pulse 76 Pulse Source Pulse Oximeter Temp 97.6 F Temp Source Temporal Artery Scan Pulse Oximetry (%) 96 Oxygen Delivery Method Room Air Intake Visit Reasons: EP, right ear pain Intake Note: pt is here for c/o right ear pain, pcp gave him amoxicillin but states it is getting worse Patient Tobacco Use Status: Never used Tobacco Allergies almond [ALMONDS] Allergy (Severe, Verified 06/21/23 09:58) THROAT CLOSES pecan nut [PECAN] Allergy (Severe, Verified 06/21/23 09:58) THROAT CLOSES Do you need a note to return to daycare/school/sports/work: Yes HPI HPI Comments History of Present Illness Details This is a 72-year-old male who presents to the office today for sick visit. Patient complaining of persistent/ worsening right ear pain x1 week. Patient states he developed right ear pain approximately 1 week ago and he was started on oral Augmentin by his PCP, which he has been taking for 4 days. Patient states ear pain is not improving and is even slightly worsening. He denies any fevers or chills. He is otherwise feeling well without chest pain, shortness of breath, abdominal pain, nausea/vomiting/diarrhea, or other URI symptoms. [facility] Medical History BPH (benign prostatic hyperplasia) CVA (cerebral vascular accident) DVT (deep venous thrombosis) Enlarged prostate without lower urinary tract symptoms (luts) Erectile dysfunction Frequency-urgency syndrome History of elevated PSA Osteomyelitis Subacute osteomyelitis of right foot Surgical History History of surgery Social History Patient Tobacco Use Status: Never used Tobacco Review of Systems Const All systems reviewed & are unremarkable except as noted in HPI and below Reports no additional complaints Eyes Reports no additional complaints ENT Reports no additional complaints Card Reports no additional complaints Resp Reports no additional complaints GI Reports no additional complaints Reports no additional complaints Musc Reports no additional complaints Skin/Breast Reports system reviewed and no additional complaints, except as documented Neuro Reports no additional complaints Psych Reports no additional complaints Endo Reports no additional complaints Sky/Lymph Reports no additional complaints Aller/Immun Reports no additional complaints Physical Exam Vital Signs: Last Vital Signs Temp 97.6 F 06/21/23 09:57 Pulse 76 06/21/23 09:57 BP 122/76 06/21/23 09:57 Pulse Ox 96 06/21/23 09:57 Oxygen Delivery Method Room Air 06/21/23 09:57 BMI result Body Mass Index 37.6 Const Other: Vital signs reviewed. Constitutional: Non-toxic appearing. No acute distress. Well-developed and well-nourished. HEENT: Normocephalic and atraumatic. Right external auditory canal is erythematous and edematous, unable to visualize tympanic membrane entirely due to edema. Moist mucous membranes. No pharyngeal erythema or exudates. Skin: Warm and dry. No rashes or lesions noted. Neck: Full and painless range of motion. No cervical lymphadenopathy. Cardio: Regular rate. No lower extremity edema. No JVD. Pulmonary: No respiratory distress. No accessory muscle usage. Gastrointestinal: Soft, nontender, and nondistended. Musculoskeletal: Normal range of motion in joints throughout the body. No deformity or other signs of injury. Neuro: Alert and oriented x4. Cranial nerves 2-12 grossly intact. No focal deficits appreciated. Psych: Normal mood and affect. Assessment & Plan Assessment & Plan (1) Otitis externa: Code(s): H60.90 - Unspecified otitis externa, unspecified ear Qualifiers: Otitis externa type: unspecified type Chronicity: acute Laterality: right Qualified Code(s): H60.501 - Unspecified acute noninfective otitis externa, right ear Plan This is a 72-year-old male presenting to the office complaining of persistent / worsening right ear pain in the setting of recent diagnosis of acute otitis media currently being treated with p.o. amoxicillin clavulanate 875-125 mg twice daily. Patient has completed 4 of 7 days of his antibiotic course but continues to have persistent / worsening pain of his right ear. On physical examination, there is significant erythema and edema of his right external auditory canal consistent with acute otitis externa. Patient was given a prescription for p.o. amoxicillin-clavulanate for an additional 3 days (to complete a 10 day course) as well as fsvyabzw-lowuvgzzw-eaxjmyxvugsviw ear drops for 10 days. Patient's vital signs are stable, his physical exam is otherwise benign, and he is overall nontoxic appearing. Patient feels comfortable with going home. He was advised to follow-up here or go to the emergency room for persistent/ worsening symptoms or if he were to develop fever/chills, pain/swelling behind his ear, or other systemic symptoms. Patient verbalized understanding and is agreeable with the plan. Medications: New amoxicillin-pot clavulanate 875-125 mg 1 tab PO BID 6 tabs 0RF igfntrui-zywykigal-WY 3.5-10,000-1 mg/mL-unit/mL-% 4 drps otic (ear) right Q8H 10 days 10 mL 0RF Coding Level of Care Code Est Pt Level 3 (60840) Diagnoses Acute otitis externa of right ear, unspecified type H60.501 Otitis externa type: unspecified type Chronicity: acute Laterality: right
== END 2023-06-21 11:19 | disposition home or self-care (01) ==
PROVIDERS: PCP Internal Medicine; Visit Provider Physician Assistant Medical
DX: H60.501 Unspecified acute noninfective otitis externa, right ear (principal)
CPT/HCPCS: 99213

== ENCOUNTER 2023-08-06 10:05 | Emergency (ER) | payer MEDICARE, MEDICAID, SELFPAY ==
[2023-08-06 10:07] VITALS: BP 150/91; PULSE 77; RESP 19; TEMP 36.6; O2SAT 98; BMI 38.0
[2023-08-06 11:29] LABS: MANUAL DIFF FLAG NO
[2023-08-06 11:31] LABS: Basophils Percent Auto 0.4 % (0-2); Eosinophils Absolute Auto 0.4 X10*3/uL (0.0-0.4); Eosinophils Percent Auto 5.5 % (0-4); Hematocrit 41.9 % (42.0-52.0); Hemoglobin 13.9 g/dl (14.0-18.0); Imm Gran Abs Auto 0.02 X10*3/uL (0.00-0.03); Imm Gran Pct Auto 0.3 % (0.0-0.4); Lymphocytes Absolute Auto 1.5 X10*3/uL (1.2-4.9); Lymphocytes Percent Auto 21.1 % (20-40); Mean Corpuscular HGB Conc 33.2 g/dl (31.0-36.0); Mean Corpuscular Hemoglobin 29.2 pg (27.0-33.0); Mean Platelet Volume 11.2 fL (9.4-12.4); Monocytes Absolute Auto 0.9 X10*3/uL (0.1-1.2); Monocytes Percent Auto 12.6 % (2-11); Neutrophils Absolute Auto 4.2 x10*3/uL (2.0-8.3); Neutrophils Percent Auto 60.1 % (45-73); Platelet Count 180 X10*3/uL (160-400); Red Blood Count 4.76 X10*6/uL (4.60-5.80); Red Cell Distribution Width 13.4 % (11.0-16.0); White Blood Count 6.9 X10*3/uL (4.8-10.8)
[2023-08-06 11:36] LABS: INTERNATIONAL NORM RATIO 1.1 (0.9-1.1); Prothrombin Time 13.3 SEC (11.1-13.3)
[2023-08-06 11:47] LABS: Alanine Aminotransferase 35 U/L (0-40); Alkaline Phosphatase 71 U/L (39-117); Anion Gap 9 (12-20); Aspartate Amino Transferase 32 U/L (5-37); Bilirubin Direct 0.2 mg/dL (0.0-0.5); Bilirubin Total 0.4 mg/dL (0.0-1.0); Blood Urea Nitrogen 24 mg/dL (9-16); Calcium 9.4 mg/dL (8.4-10.2); Carbon Dioxide 25 mmol/L (22-29); Chloride 107 mmol/L (96-108); Creatinine Clr Calc Pharmacy 53.5; Estimated Glomerular Filt Rate 44; Glucose Random 240 mg/dL (60-115); Lipase 27 U/L (8-78); Potassium 4.6 mmol/L (3.3-5.1); Sodium 136 mmol/L (135-145); Total Protein 7.1 g/dL (6.5-8.0)
== END 2023-08-06 16:14 | disposition left against medical advice (07) ==
PROVIDERS: Emergency Provider Emergency Medicine; PCP Internal Medicine
DX: R19.7 Diarrhea, unspecified (principal); R11.2 Nausea with vomiting, unspecified; Z79.899 Other long term (current) drug therapy
CPT/HCPCS: 36415; 80048; 80076; 83690; 85025; 85610; 99281; 99283

== ENCOUNTER 2023-08-15 11:40 | Outpatient (REF) | payer MEDICARE, MEDICAID, SELFPAY ==
[2023-08-15 13:18] LABS: MANUAL DIFF FLAG NO
[2023-08-15 13:28] LABS: Basophils Absolute Auto 0.1 X10*3/uL (0.0-0.2); Basophils Percent Auto 0.7 % (0-2); Eosinophils Absolute Auto 0.5 X10*3/uL (0.0-0.4); Eosinophils Percent Auto 6.3 % (0-4); Hematocrit 43.8 % (42.0-52.0); Hemoglobin 14.6 g/dl (14.0-18.0); Imm Gran Abs Auto 0.01 X10*3/uL (0.00-0.03); Imm Gran Pct Auto 0.1 % (0.0-0.4); Lymphocytes Absolute Auto 2.2 X10*3/uL (1.2-4.9); Mean Corpuscular HGB Conc 33.3 g/dl (31.0-36.0); Mean Corpuscular Hemoglobin 29.6 pg (27.0-33.0); Mean Corpuscular Volume 88.7 fL (80.0-98.0); Mean Platelet Volume 11.9 fL (9.4-12.4); Monocytes Absolute Auto 0.8 X10*3/uL (0.1-1.2); Monocytes Percent Auto 10.4 % (2-11); Neutrophils Absolute Auto 3.7 x10*3/uL (2.0-8.3); Neutrophils Percent Auto 51.5 % (45-73); Platelet Count 231 X10*3/uL (160-400); Red Blood Count 4.94 X10*6/uL (4.60-5.80); Red Cell Distribution Width 13.2 % (11.0-16.0); White Blood Count 7.2 X10*3/uL (4.8-10.8)
[2023-08-15 14:00] LABS: Lipase 22 U/L (8-78)
[2023-08-15 15:06] LABS: Amylase 82 U/L (28-100)
== END 2023-08-15 11:41 | disposition home or self-care (01) ==
LOC: HO.HMGCLDS 11:40
PROVIDERS: PCP Internal Medicine; Visit Provider Internal Medicine
DX: R53.83 Other fatigue (principal); R14.0 Abdominal distension (gaseous); R10.9 Unspecified abdominal pain
CPT/HCPCS: 36415; 82150; 83690; 85025

== ENCOUNTER 2023-08-20 11:09 | Outpatient (AMB) | payer MEDICARE, MEDICAID, SELFPAY ==
--- NOTE | 2023-08-20 11:18 | A.OFFVIS_ITS ---
Intake Vital Signs 08/20/23 11:21 08/20/23 12:03 Height 5 ft 8 in Weight 250 lb BMI 38.0 BP 96/50 L 120/60 Blood Pressure Location Lt brachial Position Sitting Pulse 76 75 Intake Visit Reasons: Diarrhea Intake Note: Patient new consult for irregular BM. Patient cc: burping, gassy, abdominal bloating, constipation with loose BM and denies any other GI issues. 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 Allergies almond [ALMONDS] Allergy (Severe, Verified 08/20/23 11:16) THROAT CLOSES pecan nut [PECAN] Allergy (Severe, Verified 08/20/23 11:16) THROAT CLOSES Medication List - Last Reconciled 08/20/23 by Joycelyn Masters PA-C apixaban 5 mg PO BID atorvastatin 40 mg PO DAILY empagliflozin (Jardiance) 25 mg PO DAILY ferrous sulfate (FeroSul) 325 mg PO BEDTIME finasteride 5 mg PO BEDTIME gabapentin mg PO TID PRN insulin aspart U-100 (Novolog U-100 Insulin aspart) 20 units subcut BID insulin glargine (Lantus Solostar U-100 Insulin) 40 units subcut BID magnesium oxide 400 mg PO BID metoprolol tartrate 25 mg PO BID midodrine mg PO ivcxxcko-kgctigysk-SL 3.5-10,000-1 mg/mL-unit/mL-% 4 drps otic (ear) right Q8H 10 days pantoprazole 40 mg PO DAILY pen needle, diabetic (Easy Touch) As directed rosuvastatin 40 mg PO DAILY tadalafil 5 mg PO DAILY 90 days terazosin 5 mg PO BEDTIME 90 days HPI HPI Comments History of Present Illness Details A 72-year-old male referred with diarrhea his adult son accompanies him He says his diarrhea incontinent at night-lomotil- not helpful- over all he has 5- 8 stools a day- urgency x few months His sleep in interrupted He took amox/clav in June\Taking magnesium Glucose not well controlled. Colonoscopy 2009- apixaban- for CVA-however he had discontinued for 7 days due to an orthopedic surgery and had a 2nd stroke No N/V/abdominal pain PFSH Medical History BPH (benign prostatic hyperplasia) CVA (cerebral vascular accident) DVT (deep venous thrombosis) Enlarged prostate without lower urinary tract symptoms (luts) Erectile dysfunction Frequency-urgency syndrome History of elevated PSA Osteomyelitis Subacute osteomyelitis of right foot Surgical History History of surgery Social History Household Members: Family Alcohol intake: never Patient Tobacco Use Status: Never used Tobacco Use of substances other than those prescribed or required for medical reasons: No Review of Systems Const All systems reviewed & are unremarkable except as noted in HPI and below Card Denies chest pain Physical Exam Vital Signs: Last Vital Signs Pulse 75 08/20/23 12:03 BP 120/60 08/20/23 12:03 BMI result Body Mass Index 38.0 Const General: cooperative and comfortable Orientation/consciousness: patient oriented x3 Limitations: physical limitations and ambulation with walker Eyes Sclerae: sclerae normal Resp Effort & Inspection: normal respiratory effort and able to speak in complete sentences Auscultation: clear to auscultation bilaterally, no rhonchi, no wheezes and breath sounds present Cardio Rate: regular rate Rhythm: regular rhythm Heart sounds: S1 normal heart sound present and S2 normal heart sound present GI Palpation (GI): Soft to palpation and nontender Auscultation: normal bowel sounds Skin General skin exam: no rashes or lesions noted Neuro General: patient oriented x3 Psych Mental Status: mental status grossly normal Speech and movement: Slurred speech present Affect: normal affect Attitude: cooperative Thought process: Normal thought process present Thought content: Normal thought content present Assessment & Plan Assessment & Plan (1) Change in bowel function: Code(s): R19.8 - Other specified symptoms and signs involving the digestive system and abdomen (2) Anticoagulated: Code(s): Z79.01 - joint terminal attack controller (current) use of anticoagulants (3) Chronic diarrhea: Comment: EGD colonoscopy however patient very reluctant to discontinue apixaban for 2 days as he had a repeated event previously Diabetes not well controlled, magnesium supplement may as well play role- Code(s): K52.9 - Noninfective gastroenteritis and colitis, unspecified Plan: Better control diabetes Discuss magnesium supplement with prescriber However will get a C diff as well as GI panel to rule out other cause Colonoscopy when able to DC apixaban for 2 days (4) History of colon polyps: Comment: History colon polyps 2014, overdue for polyp surveillance Code(s): Z86.010 - Personal history of colonic polyps Plan: Colonoscopy with time appropriate Plan EGD colonoscopy if authorized - stop apixaban x 2 days ( previous CVA after d/c for back surgery)_ 1/2 dose insulin alicia before Orders: Orders GI Panel 08/20/23 R19.7 - Diarrhea, unspecified CDiff Gene PCR 08/20/23 R19.7 - Diarrhea, unspecified EGD/Rogers Combo - GI Use Only 08/20/23 K52.9 - Noninfective gastroenteritis and colitis, unspecified, R19.8 - Other specified symptoms and signs involving the digestive system and abdomen, Z79.01 - [facility] (current) use of anticoagulants, Z86.010 - Personal history of colonic polyps Medications: New polyethylene glycol 3350 (Miralax) Take as directed by mouth the day before your procedure. 238 grams PO ONCE 1 day PRN 238 grams 0RF laxative effect bisacodyl (Dulcolax (bisacodyl)) Day before procedure, prep day Take 4 tablets by mouth upon awakening followed by large glass of water 20 mg (4 x 5 mg) PO ONCE 1 day 4 tabs 0RF colonoscopy prep Z12.11 - Encounter for screening for malignant neoplasm of colon Patient Instructions: Pleasant 72-year-old Gent s/p CVA-anticoagulation therapy, with diarrhea Coding Level of Care Code New Pt Level 4 (51369) Diagnoses Change in bowel function R19.8 Anticoagulated Z79.01 Chronic diarrhea K52.9 History of colon polyps Z86.010
[2023-08-20 11:21] VITALS: BP 96/50; PULSE 76; BMI 38.0
[2023-08-20 12:03] VITALS: BP 120/60; PULSE 75
== END 2023-08-20 14:50 | disposition home or self-care (01) ==
PROVIDERS: PCP Internal Medicine; Visit Provider Physician Assistant
DX: R19.8 Other specified symptoms and signs involving the digestive system and abdomen (principal); Z79.01 Long term (current) use of anticoagulants; K52.9 Noninfective gastroenteritis and colitis, unspecified; Z86.010 Personal history of colon polyps
CPT/HCPCS: 99204

== ENCOUNTER → 2023-08-20 11:09 | Outpatient (BNVA) | payer MEDICARE, MEDICAID, SELFPAY | PROVIDERS: PCP Internal Medicine; Visit Provider Physician Assistant | DX: R19.8 Other specified symptoms and signs involving the digestive system and abdomen (principal); K52.9 Noninfective gastroenteritis and colitis, unspecified; Z79.01 Long term (current) use of anticoagulants; Z86.010 Personal history of colon polyps | CPT/HCPCS: 99202 ==

== ENCOUNTER 2023-08-22 | Outpatient (REF) | payer MEDICARE, MEDICAID, SELFPAY ==
[2023-08-24 09:33] LABS: Adenovirus F 40/41 Not Detected (Not Detect.); Astrovirus Not Detected (Not Detect.); Campylobacter Not Detected (Not Detect.); Cryptosporidium Not Detected (Not Detect.); Cyclospora cayetanensis Not Detected (Not Detect.); E. coli EAEC Not Detected (Not Detect.); E. coli EPEC Not Detected (Not Detect.); E. coli ETEC Not Detected (Not Detect.); E. coli STEC Not Detected (Not Detect.); Entamoeba histolytica Not Detected (Not Detect.); Giardia lamblia Not Detected (Not Detect.); Norovirus GI/GII Not Detected (Not Detect.); Plesiomonas shigelloides Not Detected (Not Detect.); Rotavirus A Not Detected (Not Detect.); Salmonella Not Detected (Not Detect.); Sapovirus Not Detected (Not Detect.); Shigella sp./EIEC Not Detected (Not Detect.); Vibrio Not Detected (Not Detect.); Vibrio Cholerae Not Detected (Not Detect.); Yersinia enterocolitica Not Detected (Not Detect.)
== END 2023-08-22 00:01 | disposition home or self-care (01) ==
LOC: HO.LNP
PROVIDERS: Visit Provider Physician Assistant
DX: R19.7 Diarrhea, unspecified (principal)
CPT/HCPCS: 87493; 87507

== ENCOUNTER 2023-08-26 09:32 | Outpatient (REF) | payer MEDICARE, MEDICAID, SELFPAY ==
--- NOTE | ~2023-08-26 | CT_ITS ---
EXAMINATION: CT ABDOMEN AND PELVIS WITH CONTRAST CLINICAL INFORMATION: Diarrhea. COMPARISON: 07/08/2022 TECHNIQUE: Multidetector volumetric images were obtained from the superior aspect of the liver through the pubic symphysis following administration 85 mL of Omnipaque 350 intravenous contrast. Sagittal and coronal reformatted images were obtained on the technologist's workstation. Oral contrast: No This CT examination was performed using dose optimization techniques as appropriate, variously including the following: *Automated exposure control *Adjustment of mA and/or kV according to patient size (this includes techniques or standardized protocols for targeted exams where dose is matched to indication/reason for exam; i.e. extremities or head) *Use of iterative reconstruction technique DLP: 674 mGy-cm FINDINGS: LUNG BASES: The visualized lung bases are unremarkable. LIVER, GALLBLADDER, AND BILIARY TREE: The liver is decreased in attenuation. No focal hepatic lesion or biliary ductal dilatation is present. The gallbladder is unremarkable with no evidence of radiopaque gallstones, gallbladder wall thickening, or obvious pericholecystic inflammatory changes. PANCREAS: Unremarkable. SPLEEN: Unremarkable. ADRENAL GLANDS: Unremarkable. KIDNEYS AND URETERS: The kidneys are symmetric in size and enhancement. 1.4 cm upper pole right renal cyst. No further imaging follow-up is needed. No hydronephrosis or perinephric fluid collection. BLADDER: Unremarkable. GASTROINTESTINAL TRACT: Focal wall thickening of the sigmoid colon with pericolonic inflammatory change. There is evidence of underlying diverticular disease. No small bowel obstruction. ABDOMINAL WALL: No significant hernia is appreciated. LYMPH NODES: No bulky lymphadenopathy. VASCULAR: Normal caliber abdominal aorta. PELVIC VISCERA: Enlarged heterogeneous prostate gland. OSSEOUS STRUCTURES: No destructive bone lesions. CT/CT abdomen pelvis w IV con IMPRESSION: Acute diverticulitis of the sigmoid colon. Follow-up imaging after treatment is advised.
[2023-08-26] MEDS: iohexoL 350 MG/ML 100 ML INFUS..BTL 85 ML IV (12:14)
[2023-08-26] MEDS: Barium Sulfate Oral (Vanilla) 450 ML ORAL.SUSP 900 ML PO (12:15)
== END 2023-08-26 09:33 | disposition home or self-care (01) ==
LOC: HO.CT 09:32
PROVIDERS: PCP Internal Medicine; Visit Provider Internal Medicine
DX: R19.7 Diarrhea, unspecified (principal)
CPT/HCPCS: 74177; Q9967

== ENCOUNTER 2023-09-06 08:03 | Outpatient (REF) | payer MEDICARE, MEDICAID, SELFPAY ==
[2023-09-06 12:01] LABS: Estimated Average Glucose 163 mg/dL; Hemoglobin A1c % 7.3 % (<6.0)
[2023-09-06 12:03] LABS: Prostate Specific Antigen 1.21 ng/mL (<0.05-4.0)
[2023-09-06 12:12] LABS: Vitamin D 25-OH Total 36.4 ng/mL (>30)
[2023-09-06 12:17] LABS: Folate 8.6 ng/mL (> or = 4.0); Vitamin B12 1303 pg/mL (200-900)
== END 2023-09-06 08:04 | disposition home or self-care (01) ==
LOC: HO.HMGCLDS 08:03
PROVIDERS: PCP Internal Medicine; Referring Provider Nurse Practitioner Family; Visit Provider Internal Medicine
DX: N40.1 Benign prostatic hyperplasia with lower urinary tract symptoms (principal); N13.8 Other obstructive and reflux uropathy; D64.9 Anemia, unspecified; R53.83 Other fatigue; E11.9 Type 2 diabetes mellitus without complications; Z12.5 Encounter for screening for malignant neoplasm of prostate
CPT/HCPCS: 36415; 82306; 82607; 82746; 83036; 84153

== ENCOUNTER 2023-09-11 15:27 | Outpatient (AMB) | payer MEDICAID, SELFPAY ==
--- NOTE | 2023-09-11 15:34 | A.OFFVIS_ITS ---
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 Required: No Accompanied by: Spouse Allergies almond [ALMONDS] Allergy (Severe, Verified 09/11/23 16:33) THROAT CLOSES pecan nut [PECAN] Allergy (Severe, Verified 09/11/23 16:33) THROAT CLOSES Medication List - Last Reconciled 09/11/23 by NAKITA Ortiz- apixaban 5 mg PO BID atorvastatin 40 mg PO DAILY bisacodyl (Dulcolax (bisacodyl)) 20 mg (4 x 5 mg) PO ONCE 1 day empagliflozin (Jardiance) 25 mg PO DAILY ferrous sulfate (FeroSul) 325 mg PO BEDTIME finasteride 5 mg PO BEDTIME gabapentin mg PO TID PRN insulin aspart U-100 (Novolog U-100 Insulin aspart) 20 units subcut BID insulin glargine (Lantus Solostar U-100 Insulin) 40 units subcut BID magnesium oxide 400 mg PO BID metoprolol tartrate 25 mg PO BID midodrine mg PO rjgwaete-bcgojqdnk-HF 3.5-10,000-1 mg/mL-unit/mL-% 4 drps otic (ear) right Q8H 10 days pantoprazole 40 mg PO DAILY pen needle, diabetic (Easy Touch) As directed polyethylene glycol 3350 (Miralax) 238 grams PO ONCE PRN 1 day rosuvastatin 40 mg PO DAILY tadalafil 5 mg PO DAILY 90 days terazosin 5 mg PO BEDTIME 90 days HPI HPI Comments History of Present Illness Details Kirby is a very pleasant 73 year old male patient of Dr. Reinoso who is accompanied by his at today's visit. He has a past medical history of BPH, CVA, DVT, enlarged prostate with LUTS, ED, frequency urgency syndrome, history of elevated PSA, and osteomyelitis. He presents to the office today for follow-up of his lower urinary tract symptoms, erectile dysfunction associated with diabetes, and elevated PSA. When asked patient reports to be doing and feeling well. Recent PSA results reviewed with the patient today and trended below. Of note, patient with a previous trauma to his right testicle as he was attempting to have a seat in his shower and accidentally sat firmly on his right testicle. He reports testicle to be healing well. He reports significant improvement in swelling and pain. When asked patient reports to be doing well on terazosin 5 mg daily, tadalafil 5md daily, and Finasteride 5mg daily. He reports to be happy with current voiding parameters. He otherwise denies urinary urgency, urinary frequency, incontinence, hematuria, dysuria, foul smelling urine, changes to urinary stream, flank pain, fever, and or chills. He reports noting himself to have some erections with 5mg of Cialis daily however does not feel they are adequate for penetrations. Discussed at length patients comorbidities in relation to erectile dysfunction. Discussed lifestyle modifications to assist with ED. Patient will call bread wrapper to further assess if PRN on demand Cialis or Viagra. He otherwise offers no issues or concerns at this time. In office urinalysis results reviewed with the patient today. PVR 19 mL PREVIOUS OFFICE NOTE Lower urinary tract symptoms with elevated PSA Followed for BPH symptoms Prior medication includes doxazosin which he ceased secondary to blood pressure issues - had been on Myrbetriq but had recurren t stroke with high residual - prior laser prostatectomy Baseline suffered stroke in February 2020 PSA - May 2019 3.0 - May 2020 4.7, 10/06 2.9 -August 2023--1.2 Office cystoscopy - 09/06 right lateral prostatic regrowth Prostatic regrowth source of microscopic hematuria Good response to combination finasteride and tadalafil with urinary control Therapeutic plan - continue with medication and PSA surve illance Erectile dysfunction diabetic Good response to daily tadalafil PFSH Medical History Osteomyelitis CVA (cerebral vascular accident) DVT (deep venous thrombosis) BPH (benign prostatic hyperplasia) Frequency-urgency syndrome Subacute osteomyelitis of right foot Erectile dysfunction Enlarged prostate without lower urinary tract symptoms (luts) History of elevated PSA Surgical History History of surgery Social History Household Members: Family Alcohol intake: never Patient Tobacco Use Status: Never used Tobacco Review of Systems Const Reports as per [facility] Eyes Reports no additional complaints ENT Reports no additional complaints Card Reports as per [facility] Resp Reports no additional complaints GI Reports no additional complaints Reports as per [facility] Musc Reports as per [facility] Neuro Reports as per [facility] Psych Reports as per [facility] Endo Reports as per HPI Physical Exam Const General: cooperative, comfortable, no acute distress, well developed, alert and awake Nutritional Appearance: overweight Orientation/consciousness: patient oriented x3 Limitations: ambulation with walker HEENT Head: Yes normal to inspection, Yes normocephalic and Yes atraumatic Ears: hearing grossly normal bilaterally Eyes General: appearance normal, both eyes and all related structures Neck Neck: Yes normal visual inspection and Yes trachea midline Chest Chest palpation & inspection: normal inspection of the chest Resp Effort & Inspection: normal respiratory effort and able to speak in complete sentences Cardio Rate: regular rate GI Inspection: Yes normal to inspection General: Yes no CVA tenderness Back/Spine/Pelvis Back: no CVA tenderness Skin General skin exam: no rashes or lesions noted Neuro General: patient oriented x3 Extrem General: Yes normal to inspection Psych Appearance: grossly normal and well kempt Mental Status: mental status grossly normal Speech and movement: Normal speech and movement present and Clear speech present Affect: normal affect Attitude: cooperative Thought process: Normal thought process present Thought content: Normal thought content present Insight: Fair insight present (Psych) Judgement: Fair judgement present (Psych) Office Procedures Post Void Residual Post Residual Void Post Void Residual (PVR): 19 [id number]-[id number] Void Residual by ultrasound Results AMB Urinalysis, Automated UA Leukoctes 0 Isac/uL Last Edit by Wilda Michael on 09/11/23 16:02 UA Nitrite Negative Last Edit by Wilda Michael on 09/11/23 16:02 UA Urobilinogen 0.2 mg/dL Last Edit by Wilda Michael on 09/11/23 16:02 UA Protein 15 mg/dL Last Edit by Wilda Michael on 09/11/23 16:02 UA pH 5.5 Last Edit by Wilda Michael on 09/11/23 16:02 UA Blood 0 Roshan/uL Last Edit by Wilda Michael on 09/11/23 16:02 UA Specific [place] 1.015 Last Edit by Wilda Ayersnicki on 09/11/23 16:02 UA Ketone Negative Last Edit by Draganlissettejose Ayersnicki on 09/11/23 16:02 UA Bilirubin 0 mg/dL Last Edit by Draganronny Andrianicki on 09/11/23 16:02 UA Glucose 1000 mg/dL Last Edit by Draganronny Andrianicki on 09/11/23 16:02 Results Reviewed Results Reviewed: Laboratory Last Values Urine pH (Auto) 5.5 09/11/23 15:36 Specific [place] (Auto) 1.015 09/11/23 15:36 Urine Protein (Auto) 15 mg/dL 09/11/23 15:36 Glucose (UA)(Auto) 1000 mg/dL 09/11/23 15:36 Urine Ketones (Auto) Negative 09/11/23 15:36 Urine Blood (Auto) 0 Roshan/uL 09/11/23 15:36 Urine Nitrite (Auto) Negative 09/11/23 15:36 Urine Bilirubin (Auto) 0 mg/dL 09/11/23 15:36 Urine Urobilinogen (Auto) 0.2 mg/dL 09/11/23 15:36 Leukocyte Esterase (Auto) 0 Isac/uL 09/11/23 15:36 Assessment & Plan Assessment & Plan (1) Elevated PSA: Code(s): R97.20 - Elevated prostate specific antigen [PSA] (2) Urinary urgency: Code(s): R39.15 - Urgency of urination (3) Erectile dysfunction: Code(s): N52.9 - Male erectile dysfunction, unspecified (4) Nocturia more than twice per night: Code(s): R35.1 - Nocturia (5) BPH w urinary obs/LUTS: Code(s): N40.1 - Benign prostatic hyperplasia with lower urinary tract symptoms; N13.8 - Other obstructive and reflux uropathy Plan In office urinalysis results reviewed with the patient today; as noted above PVR; 19ml's Patient denies any bothersome urinary issues at this time He reports to be happy with current voiding parmaters Recent PSA results reviewed with the patient today; as noted above Continue Finasteride, Cialis, and terazosin as prescribed. Patient will follow up with Cardiology and call office if PRN on demand dosing is appropriate Discussed lifestyle modifications to assist with ED Discussed importance of managing diabetes for improvement in ED and for improvement in urinary symptoms as well as for overall health and well being. PSA in 6 months Follow up in 6 months with PVR; or sooner with any issues, concerns, or questions. Orders: Orders AMB Post Void Residual by ultrasound Today R35.1 - Nocturia AMB Urinalysis Automated Today Z13.9 - Encounter for screening, unspecified Prostate Specific Antigen 6 Months R97.20 - Elevated prostate specific antigen [PSA] Medications: Changed From finasteride 5 mg PO BEDTIME To finasteride 5 mg PO BEDTIME 90 days 90 tabs 3RF Refilled terazosin 5 mg PO BEDTIME 90 days 90 caps 3RF N13.8 - Other obstructive and reflux uropathy, N40.1 - Benign prostatic hyperplasia with lower urinary tract symptoms tadalafil 5 mg PO DAILY 90 days 90 tabs 3RF sexual activity R39.15 - Urgency of urination Patient Instructions: The patient had an opportunity to ask questions regarding the treatment plan. All questions were answered. Physical exam, labs, and imaging were discussed and reviewed in detail. As well as risks, benefits, and discussion of treatment choices. No major barriers to understanding were identified. The patient expressed understanding and agreement with the above treatment plan. The patient was made aware they should contact our office by phone for worsening of their current condition, the appearance of new symptoms, or with any questions or concerns. Compliance is encouraged with any medications and follow up testing that is ordered. It is a privilege to be allowed the opportunity to participate in? your urological care.? Again, if you have any questions or concerns If you have any questions or concerns please do not hesitate to contact me. The office is [phone]. This note is constructed using voice recognition software. While every effort has been made to ensure accuracy sandfill operator errors may have been included. Yours sincerely, ANGEL Ortiz Coding Level of Care Code Est Pt Level 3 (36093) Diagnoses Elevated PSA R97.20 Urinary urgency R39.15 Erectile dysfunction N52.9 Nocturia more than twice per night R35.1 BPH w urinary obs/LUTS N40.1; N13.8 CPT Codes Post Residual Void - PVR CPT Code: 75679-[id number] Void Residual by ultrasound ([id number])
== END 2023-09-11 16:06 | disposition home or self-care (01) ==
PROVIDERS: PCP Internal Medicine; Visit Provider Nurse Practitioner Family
DX: R97.20 Elevated prostate specific antigen [PSA] (principal); R39.15 Urgency of urination; N52.9 Male erectile dysfunction, unspecified; R35.1 Nocturia; N40.1 Benign prostatic hyperplasia with lower urinary tract symptoms; N13.8 Other obstructive and reflux uropathy; Z13.9 Encounter for screening, unspecified
CPT/HCPCS: 99213

== ENCOUNTER → 2023-09-11 15:27 | Outpatient (BNVA) | payer MEDICARE, MEDICAID, SELFPAY | PROVIDERS: PCP Internal Medicine; Visit Provider Nurse Practitioner Family | DX: N40.1 Benign prostatic hyperplasia with lower urinary tract symptoms (principal); N13.8 Other obstructive and reflux uropathy; R39.15 Urgency of urination; R35.1 Nocturia; N52.9 Male erectile dysfunction, unspecified; R97.20 Elevated prostate specific antigen [PSA] | CPT/HCPCS: 51798; 81003; 99212 ==

== ENCOUNTER 2024-02-26 09:29 | Emergency (ER) | payer MEDICARE, MEDICAID, SELFPAY ==
--- NOTE | ~2024-02-26 | XR_ITS ---
EXAMINATION: Right ankle and right foot x-ray. CLINICAL INFORMATION: Twisting injury on 02/24/2024, complains of lateral right foot and right ankle pain COMPARISON: Right foot x-ray on 03/30/2019 TECHNIQUE: 3 view X-rays of right ankle and right foot FINDINGS: BONES: Bony structures are intact. A tiny plantar calcaneal spur is present. Marginal osteophyte is seen at the medial base of right great toe proximal phalanx There is no focal bone destruction or periosteal reaction seen. JOINTS: Alignment of joints is normal. SOFT TISSUE: Soft tissue is normal. No radiopaque foreign body or abnormal air collection is seen. XR/XR foot RT min 3V IMPRESSION: 1. Interval resolution of right great toe distal phalangeal tip osteomyelitis. No evidence of acute fracture or dislocation. 2. Unchanged Tiny plantar calcaneal spur. 3. 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
--- NOTE | ~2024-02-26 | XR_ITS ---
EXAMINATION: Right ankle and right foot x-ray. CLINICAL INFORMATION: Twisting injury on 02/24/2024, complains of lateral right foot and right ankle pain COMPARISON: Right foot x-ray on 03/30/2019 TECHNIQUE: 3 view X-rays of right ankle and right foot FINDINGS: BONES: Bony structures are intact. A tiny plantar calcaneal spur is present. Marginal osteophyte is seen at the medial base of right great toe proximal phalanx There is no focal bone destruction or periosteal reaction seen. JOINTS: Alignment of joints is normal. SOFT TISSUE: Soft tissue is normal. No radiopaque foreign body or abnormal air collection is seen. XR/XR ankle RT min 3V IMPRESSION: 1. Interval resolution of right great toe distal phalangeal tip osteomyelitis. No evidence of acute fracture or dislocation. 2. Unchanged Tiny plantar calcaneal spur. 3. 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
[2024-02-26 09:41] VITALS: BP 118/58; BP 156/72; PULSE 71; PULSE 74; RESP 16; TEMP 36.5; O2SAT 95; O2SAT 98; BMI 38.0
[2024-02-26 10:57] VITALS: RESP 16
--- NOTE | 2024-02-26 11:02 | PC.NURSE ---
patient BIBA for c/o right lower leg pain extending from below knee and into right foot since saturday. patient denies injury. swelling to right foot. erythema noted to top of right foot extending up right leg., erythema marked w/ skin marker. area on right lower lateral leg that looks like a possible insect bite. patient aware of plan of care
[2024-02-26 11:16] LABS: MANUAL DIFF FLAG NO
[2024-02-26 11:17] LABS: Basophils Percent Auto 0.3 % (0-2); Eosinophils Absolute Auto 0.1 X10*3/uL (0.0-0.4); Eosinophils Percent Auto 0.4 % (0-4); Hematocrit 40.2 % (42.0-52.0); Hemoglobin 13.9 g/dl (14.0-18.0); Imm Gran Abs Auto 0.06 X10*3/uL (0.00-0.03); Imm Gran Pct Auto 0.5 % (0.0-0.4); Lymphocytes Absolute Auto 1.4 X10*3/uL (1.2-4.9); Lymphocytes Percent Auto 10.5 % (20-40); Mean Corpuscular HGB Conc 34.6 g/dl (31.0-36.0); Mean Corpuscular Hemoglobin 30.8 pg (27.0-33.0); Mean Corpuscular Volume 88.9 fL (80.0-98.0); Mean Platelet Volume 11.4 fL (9.4-12.4); Monocytes Absolute Auto 1.5 X10*3/uL (0.1-1.2); Monocytes Percent Auto 11.4 % (2-11); Neutrophils Absolute Auto 10.1 x10*3/uL (2.0-8.3); Neutrophils Percent Auto 76.9 % (45-73); Platelet Count 174 X10*3/uL (160-400); Red Blood Count 4.52 X10*6/uL (4.60-5.80); Red Cell Distribution Width 13.2 % (11.0-16.0); White Blood Count 13.2 X10*3/uL (4.8-10.8)
[2024-02-26 11:29] LABS: Anion Gap 11 (12-20); Blood Urea Nitrogen 30 mg/dL (9-16); C Reactive Protein 17.11 mg/dL (< or = 0.50); Calcium 9.4 mg/dL (8.4-10.2); Carbon Dioxide 24 mmol/L (22-29); Chloride 104 mmol/L (96-108); Estimated Glomerular Filt Rate 36; Glucose Random 204 mg/dL (60-115); Potassium 4.1 mmol/L (3.3-5.1); Sodium 135 mmol/L (135-145)
[2024-02-26 12:05] LABS: Erythrocyte Sedimentation Rate 11 MM/HR (0-15)
[2024-02-26 12:23] VITALS: BP 105/58; PULSE 68; RESP 18; TEMP 36.6; O2SAT 95
--- NOTE | 2024-02-26 12:44 | ED_ITS ---
HPI - Extremity Problem General Chief complaint: Extremity Problem Stated complaint: R FOOT PAIN PER EMS Time Seen by Provider: 02/26/24 10:46 Source: patient, RN notes reviewed and old records reviewed Mode of arrival: ambulatory History of Present Illness ED Provider: Caridad Valverde PA-C HPI Narrative: 73-year-old male with a past medical history of DVT, CVA, osteomyelitis, presenting to the ED via EMS complaining of right foot/ankle pain, swelling, and erythema since yesterday. Unable to ambulate secondary to pain. States went on a hike yesterday and may have twisted ankle. Denies known injury, tick/insect bite, fever/chills, drainage from area, gout history, numbness/tingling MD Complaint: extremity pain and extremity swelling Related Data Home Medications ?Medication ?Instructions ?Recorded ?Confirmed apixaban 5 mg tablet 5 mg PO BID 08/05/20 09/11/23 metoprolol tartrate 25 mg tablet 25 mg PO BID 08/05/20 09/11/23 pantoprazole 40 mg tablet,delayed 40 mg PO DAILY 08/05/20 09/11/23 release atorvastatin 40 mg tablet 40 mg PO DAILY 10/06/20 09/11/23 empagliflozin 25 mg tablet 25 mg PO DAILY 05/05/21 09/11/23 (Jardiance) gabapentin 100 mg capsule mg PO TID PRN 05/05/21 09/11/23 magnesium oxide 400 mg (241.3 mg 400 mg PO BID 07/11/21 09/11/23 magnesium) tablet ferrous sulfate 325 mg (65 mg 325 mg PO BEDTIME 08/31/22 09/11/23 iron) tablet (FeroSul) midodrine 10 mg tablet mg PO 08/31/22 09/11/23 pen needle, diabetic 31 gauge x #50 ea 08/31/22 09/11/2311/29 (Easy Touch) rosuvastatin 40 mg tablet 40 mg PO DAILY 08/31/22 09/11/23 insulin aspart U-100 100 unit/mL 20 unit subcut BID 12/05/22 09/11/23 subcutaneous solution (Novolog U-100 Insulin aspart) insulin glargine 100 unit/mL (3 40 unit subcut BID 12/05/22 09/11/23 mL) subcutaneous pen (Lantus Solostar U-100 Insulin) Previous Rx's ?Medication ?Instructions ?Recorded [id number] 3.5 4 drp otic (ear) right Q8H 10 days 06/21/23 mg-10,000 unit/mL-1 % ear #10 mL drops,susp bisacodyl 5 mg tablet,delayed 20 mg (4 x 5 mg) PO ONCE 08/20/23 release (Dulcolax (bisacodyl)) colonoscopy prep 1 day #4 tabs polyethylene glycol 3350 17 238 g PO ONCE PRN laxative effect 08/20/23 gram/dose oral powder (Miralax) 1 day #238 grams finasteride 5 mg tablet 5 mg PO BEDTIME 90 days #90 tabs 09/11/23 tadalafil 5 mg tablet 5 mg PO DAILY sexual activity 90 09/11/23 days #90 tabs terazosin 5 mg capsule 5 mg PO BEDTIME 90 days #90 caps 09/11/23 doxycycline hyclate 100 mg tablet 100 mg PO BID 7 days #14 tabs 02/26/24 Allergies Allergy/AdvReac Type Severity Reaction Status Date / Time almond [ALMONDS] Allergy Severe THROAT Verified 02/26/24 09:46 CLOSES pecan nut [PECAN] Allergy Severe THROAT Verified 02/26/24 09:46 CLOSES Review of Systems 2 Review of Systems: Constitutional: No Fever, No Chills ENT/Mouth: No Ear Pain, No Nasal Congestion, No sore throat, No Rhinorrhea, No Swallowing Difficulty Cardiovascular: No Chest Pain, No SOB Respiratory: No Cough Gastrointestinal: No Nausea, No Vomiting, No Diarrhea, No Constipation, No Abdominal pain Musculoskeletal: + joint pain, No Myalgias, + Joint Swelling Skin: + Skin Lesions, No rash Neuro: No Weakness, No Numbness, No Paresthesias Yes all other systems are reviewed and are negative Constitutional: Constitutional: Reports as per [facility] Past Medical History Attestation statement: The following information was validated with the patient. Source: old records reviewed Medical History Osteomyelitis CVA (cerebral vascular accident) DVT (deep venous thrombosis) BPH (benign prostatic hyperplasia) Frequency-urgency syndrome Subacute osteomyelitis of right foot Erectile dysfunction Enlarged prostate without lower urinary tract symptoms (luts) History of elevated PSA Surgical History History of surgery Social History Social History Household Members: Family Alcohol intake: never Patient Tobacco Use Status: Never used Tobacco Advance Directives: No Advance Directives Information Provided: Yes Physical Exam 2 Vital Signs: Vital Signs: Last Vital Signs Temp 97.8 F 02/26/24 12:23 Pulse 62 02/26/24 13:17 Resp 16 02/26/24 13:17 BP 122/71 02/26/24 13:17 Pulse Ox 94 02/26/24 13:17 O2 Del Method Room Air 02/26/24 12:23 BMI result Body Mass Index 38.0 Const: General: cooperative, healthy appearing and no acute distress O rientation/consciousness: patient oriented x3 Limitations: no limitations HEENT: Head: Yes normal to inspection and Yes atraumatic Ears: hearing grossly normal bilaterally General nose exam: Normal external nose present Face and sinus: Yes normal facial exam Eyes: General: appearance normal, both eyes and all related structures EOM: EOMs intact bilaterally Neck: Neck: Yes normal visual inspection and Yes no meningeal signs Resp: Effort & Inspection: normal respiratory effort and no respiratory distress Cardio: Rate: regular rate Peripheral pulses: Peripheral pulses 2+ throughout GI: Inspection: Yes normal to inspection Palpation (GI): Soft to palpation, nontender, no guarding and not rigid Neuro: General: patient oriented x3, tone normal and no meningeal signs C ranial nerves: Yes CN's II-XII intact bilaterally Gait exam (Neuro): Normal gait present Extrem: Other: Please refer to image above. Left ankle with ? Insect bite with surrounding/extending erythema, slight warmth, and streaking to mid tibia. No fluctuance/induration. Neurovascularly intact. Full range of motion intact. Course Course Course Narrative: -1250--leukocytosis of 13.2. Chronic CKD. CRP elevated. ESR WNL XR ankle RT min 3V/XR foot RT min 3V IMPRESSION: 1. Interval resolution of right great toe distal phalangeal tip osteomyelitis. No evidence of acute fracture or dislocation. 2. Unchanged Tiny plantar calcaneal spur. 3. 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 > streaking marked off on leg. will give dose of PO doxycycline in the ED & pain control for ambulation trial -1429--patient able to stand and pivot after pain medication. Offered PT eval/STR/case management however patient declined. States he has wheelchair and multiple walkers at home as well as lives with son/another person and has help, would like to be discharged. States at baseline ambulates with assistive devices/holding onto things from prior CVAs. Results discussed with patient including worrisome signs and symptoms and strict return precautions, and when to return to the emergency department. They verbalized understanding and feel safe for discharge at this time. Medications Administered Discontinued Medications Generic Name Dose Route Start Last Admin Trade Name Glo PRN Reason Stop Dose Admin Acetaminophen 650 mg 02/26/24 12:58 02/26/24 13:16 Acetaminophen 325 Mg Tablet PO 02/26/24 12:59 650 mg ONCE ONE Administration Doxycycline Monohydrate 100 mg 02/26/24 12:53 02/26/24 13:16 Doxycycline Monohydrate 100 Mg Capsule PO 02/26/24 12:54 100 mg ONCE ONE Administration Morphine Sulfate 15 mg 02/26/24 12:58 02/26/24 13:16 Morphine Sulfate Immed Release 15 Mg Tablet PO 02/26/24 12:59 15 mg ONCE ONE Administration Medical Decision Making Medical Decision Making [facility] Narrative: 73-year-old male with a past medical history of DVT, CVA, osteomyelitis, presenting to the ED via EMS complaining of right foot/ankle pain, swelling, and erythema since yesterday. On exam vital signs stable, NAD, nontoxic appearing, physical exam as noted above. Concern for ankle sprain vs fracture vs tick or insect bite with cellulitis/lymphangitis vs ?gout. Low suspicion for septic joint/arthritis or osteomyelitis at this time. Low suspicion for severe sepsis Plan: Labs, blood culture, x-ray Please refer to course for remaining clinical decision making, interpretation of labs/imaging results, and discussions with consultants and/or family members. Differential Diagnosis Differential Diagnoses: The differential diagnosis associated with the presentation includes As above Admission/Observation Consideration of admission/observation: Escalation of care including admission/observation considered Lab Data [facility] Lab Attestation statement: I reviewed the patient's lab results. 02/26/24 11:10 02/26/24 11:10 Labs: Lab Results 06/12/24 06/12/24 Range/Units 11:10 11:20 WBC 13.2 H (4.8-10.8) X10*3/uL RBC 4.52 L (4.60-5.80) X10*6/uL Hgb 13.9 L (14.0-18.0) g/dl Hct 40.2 L (42.0-52.0) % MCV 88.9 (80.0-98.0) fL MCH 30.8 (27.0-33.0) pg MCHC 34.6 (31.0-36.0) g/dl RDW 13.2 (11.0-16.0) % Plt Count 174 (160-400) X10*3/uL MPV 11.4 (9.4-12.4) fL Immature Gran % (Auto) 0.5 H (0.0-0.4) % Neut % (Auto) 76.9 H (45-73) % Lymph % (Auto) 10.5 L (20-40) % [place] % (Auto) 11.4 H (2-11) % Eos % (Auto) 0.4 (0-4) % Baso % (Auto) 0.3 (0-2) % Lymph # (Auto) 1.4 (1.2-4.9) X10*3/uL [place] # (Auto) 1.5 H (0.1-1.2) X10*3/uL Eos # (Auto) 0.1 (0.0-0.4) X10*3/uL Baso # (Auto) 0.0 (0.0-0.2) X10*3/uL Abs Immat Gran (auto) 0.06 H (0.00-0.03) X10*3/uL Absolute Neuts (auto) 10.1 H (2.0-8.3) x10*3/uL Absolute Nucleated RBC 0.000 (0.0-0.012) X10*3/uL Nucleated RBC % (auto) 0.0 (0.0-0.2) /100WBC ESR 11 (0-15) MM/HR Sodium 135 (135-145) mmol/L Potassium 4.1 (3.3-5.1) mmol/L Chloride 104 (96-108) mmol/L Carbon Dioxide 24 (22-29) mmol/L Anion Gap 11 L (12-20) BUN 30 H (9-16) mg/dL Creatinine 1.88 H (0.5-1.4) mg/dL Estim Creat Clear Calc 44.0 Estimated GFR 36 Random Glucose 204 H (60-115) mg/dL Calcium 9.4 (8.4-10.2) mg/dL C-Reactive Protein 17.11 H (< or = 0.50) mg/dL Independent Interpretation I performed an independent interpretation of an: Plain X-Ray Radiology Impression Discussion of test interpretation with radiology: I have reviewed the radiologist's reading. External Record Review External record reviewed: Inpatient record, Office record, Outpatient record, Prior outpatient labs, Prior outpatient radiology, Primary care record and Outside ED record Tests considered The following testing was considered but not selected: As above Prescription Management I considered prescription management with: Pain Medication and Antibiotic Chronic Conditions Patient?s care impacted by: Other (Osteomyelitis) Discharge Plan Discharge Clinical Impression: Cellulitis Patient Disposition: Home, Self-Care Instructions: Cellulitis (DC) Additional Instructions: We suspect you were bit or stung by something which is causing cellulitis, skin infection. Your x-ray shows resolution of her previous osteomyelitis as well as some osteoarthritis Doxycycline as an antibiotic please take as prescribed We marked off your redness if this is spreading passive lines, you have fever, increasing redness/swelling or unbearable pain return to the ED YOU SHOULD BE RE-EVALUATED IN 2 DAYS Prescriptions: New doxycycline hyclate 100 mg tablet 100 mg PO BID 7 Days Qty: 14 0RF No Action [id number] 3.5-10,000-1 mg/mL-unit/mL-% drops,suspension 4 drp otic (ear) right Q8H 10 Days Qty: 10 0RF Eliquis 5 mg tablet 5 mg PO BID metoprolol tartrate 25 mg tablet 25 mg PO BID pantoprazole 40 mg tablet,delayed release (DR/EC) 40 mg PO DAILY Jardiance 25 mg tablet 25 mg PO DAILY gabapentin 100 mg capsule PO TID PRN magnesium oxide 400 mg (241.3 mg magnesium) tablet 400 mg PO BID atorvastatin 40 mg tablet 40 mg PO DAILY rosuvastatin 40 mg tablet 40 mg PO DAILY midodrine 10 mg tablet PO (DME) pen needle, diabetic [Easy Touch] 31 gauge x 3/16 needle See Rx Instructions .ROUTE .MEDSUPPLY Qty: 50 Rx Instructions: As directed ferrous sulfate [FeroSul] 325 mg (65 mg iron) tablet 325 mg PO BEDTIME insulin glargine [Lantus Solostar U-100 Insulin] 100 unit/mL (3 mL) insulin pen 40 unit subcut BID insulin aspart U-100 [Novolog U-100 Insulin aspart] 100 unit/mL solution 20 unit subcut BID bisacodyl [Dulcolax (bisacodyl)] 5 mg tablet,delayed release (DR/EC) 20 mg PO ONCE 1 Days Qty: 4 0RF Rx Instructions: Day before procedure, prep day Take 4 tablets by mouth upon awakening followed by large glass of water polyethylene glycol 3350 [Miralax] 17 gram/dose powder 238 g PO ONCE PRN (Reason: laxative effect) 1 Days Qty: 238 0RF Rx Instructions: Take as directed by mouth the day before your procedure. terazosin 5 mg capsule 5 mg PO BEDTIME 90 Days Qty: 90 3RF tadalafil 5 mg tablet 5 mg PO DAILY 90 Days Qty: 90 3RF finasteride 5 mg tablet 5 mg PO BEDTIME 90 Days Qty: 90 3RF Referrals: Manan Reinoso MD [Primary Care Provider] - 2 days Print Language: Slovak
[2024-02-26] MEDS: Morphine Sulfate Immed Release 15 MG TABLET PO (13:16)
[2024-02-26] MEDS: Acetaminophen 325 MG TABLET 650 MG PO (13:16)
[2024-02-26] MEDS: Doxycycline Monohydrate 100 MG CAPSULE PO (13:16)
[2024-02-26 13:17] VITALS: BP 122/71; PULSE 62; RESP 16; O2SAT 94
[2024-02-26 14:48] VITALS: BP 138/60; PULSE 66; RESP 16; TEMP 36.2; O2SAT 96
== END 2024-02-26 14:49 | disposition home or self-care (01) ==
PROVIDERS: Physician Assistant; Emergency Provider Emergency Medicine Emergency Medical Services; PCP Internal Medicine
DX: L03.115 Cellulitis of right lower limb (principal); M25.571 Pain in right ankle and joints of right foot
CPT/HCPCS: 36415; 73610; 73630; 80048; 85025; 85652; 86140; 87040; 99283; 99284

== ENCOUNTER 2024-03-01 10:05 | Inpatient (IN) | payer MEDICARE, MEDICAID, SELFPAY ==
--- NOTE | ~2024-03-01 | US_ITS ---
EXAMINATION: US VENOUS ULTRASOUND WITH DOPPLER LOWER EXTREMITY, RIGHT CLINICAL INFORMATION: Right calf pain and swelling COMPARISON: None available. TECHNIQUE: Ultrasound of the deep veins is performed from the hip to the calf with compression sonography and color and pulse Doppler assessment. Spectral analysis with color-flow imaging is performed. FINDINGS: There is normal venous compression and respiratory variation and augmented flow. The visualized common femoral vein, superficial femoral vein, profunda femoral vein, popliteal vein, and the trifurcation region shows no evidence of deep venous thrombosis. There is no significant popliteal fossa cyst. Multiple prominent inguinal lymph nodes. If the patient's symptoms persist, followup ultrasound in 5 days 7 days might be of value to exclude proximal propagation from a non-visualized calf vein. US/US venous duplex LE RT IMPRESSION: No DVT demonstrated in the right lower extremity.
--- NOTE | ~2024-03-01 | MR_ITS ---
EXAMINATION: MR ANKLE WITHOUT AND WITH CONTRAST, RIGHT CLINICAL INFORMATION: Ankle infection. Elevated ESR and CRP. Concern for osteomyelitis. COMPARISON: MRI of the right foot March 2019. X-rays of the right ankle and right foot 02/26/2024. TECHNIQUE: MRI of the ankle was performed before and after the intravenous administration of 10 mL gadolinium on a high-field scanner. FINDINGS: SUBCUTANEOUS SOFT TISSUES: There is generalized fluid-like signal circumferentially about the ankle and visualized foot with partial enhancement compatible with a combination of edema and cellulitis. MUSCLES/TENDONS: There is some mild increased T2 signal with concomitant enhancement within the peroneal muscles, a portion of the flexor hallucis longus muscle and the extensor hallucis longus muscle. This could reflect muscle strain, muscle contusion, or myositis. The tendons are intact. PLANTAR FASCIA: Normal. NEUROVASCULAR STRUCTURES: Normal. MR/MR ankle RT wo/w con IMPRESSION: 1. No evidence for osteomyelitis. 2. Generalized abnormality of the subcutaneous soft tissues compatible with a combination of edema and cellulitis. 3. Mild abnormality of the peroneal muscles, flexor hallucis longus, and extensor hallucis longus muscles. This could reflect muscle strain, muscle contusion, or myositis.
[2024-03-01 10:07] VITALS: BP 141/71; PULSE 82; RESP 18; TEMP 36.6; O2SAT 97; BMI 38.0
[2024-03-01 10:27] VITALS: BP 138/61; PULSE 78; RESP 19; TEMP 37; O2SAT 93
--- NOTE | 2024-03-01 10:32 | ED_ITS ---
HPI - General Adult General Chief complaint: General Medical Stated complaint: cellultis Time Seen by Provider: 03/01/24 10:23 Source: patient Mode of arrival: ambulatory Limitations: no limitations History of Present Illness ED Provider: Angelica Willett PA-C HPI narrative: This is a 73 yo male pmh DVT, CVA, BPH, osteomyelitis presents to ED with concerns of worsening cellulitis to right foot and leg since saturday. Patient reports he was here Saturday and prescribed doxycyline for cellulits to right foot/leg. Told to return if spreading erythema/pain and he reports it has worsened and extending into the toes. Patient reports difficulty ambulating due to pain. Also reports pain and small blisters to right foot and leg. Originally reported he went on a hike and may have twisted his ankle. Denies fever, chills, chest pain, SOB, headache, dizziness, fatigue, tingling, drainage from area. Patient states he has been taking his antibiotics as prescribed. Related Data Home Medications ?Medication ?Instructions ?Recorded ?Confirmed apixaban 5 mg tablet 5 mg PO BID 08/05/20 09/11/23 metoprolol tartrate 25 mg tablet 25 mg PO BID 08/05/20 09/11/23 pantoprazole 40 mg tablet,delayed 40 mg PO DAILY 08/05/20 09/11/23 release atorvastatin 40 mg tablet 40 mg PO DAILY 10/06/20 09/11/23 empagliflozin 25 mg tablet 25 mg PO DAILY 05/05/21 09/11/23 (Jardiance) gabapentin 100 mg capsule mg PO TID PRN 05/05/21 09/11/23 magnesium oxide 400 mg (241.3 mg 400 mg PO BID 07/11/21 09/11/23 magnesium) tablet ferrous sulfate 325 mg (65 mg 325 mg PO BEDTIME 08/31/22 09/11/23 iron) tablet (FeroSul) midodrine 10 mg tablet mg PO 08/31/22 09/11/23 pen needle, diabetic 31 gauge x #50 ea 08/31/22 09/11/2311/29 (Easy Touch) rosuvastatin 40 mg tablet 40 mg PO DAILY 08/31/22 09/11/23 insulin aspart U-100 100 unit/mL 20 unit subcut BID 12/05/22 09/11/23 subcutaneous solution (Novolog U-100 Insulin aspart) insulin glargine 100 unit/mL (3 40 unit subcut BID 12/05/22 09/11/23 mL) subcutaneous pen (Lantus Solostar U-100 Insulin) Previous Rx's ?Medication ?Instructions ?Recorded yhzarovt-browwspxx-davchqnzt 3.5 4 drp otic (ear) right Q8H 10 days 06/21/23 mg-10,000 unit/mL-1 % ear #10 mL drops,susp bisacodyl 5 mg tablet,delayed 20 mg (4 x 5 mg) PO ONCE 08/20/23 release (Dulcolax (bisacodyl)) colonoscopy prep 1 day #4 tabs polyethylene glycol 3350 17 238 g PO ONCE PRN laxative effect 08/20/23 gram/dose oral powder (Miralax) 1 day #238 grams finasteride 5 mg tablet 5 mg PO BEDTIME 90 days #90 tabs 09/11/23 tadalafil 5 mg tablet 5 mg PO DAILY sexual activity 90 09/11/23 days #90 tabs terazosin 5 mg capsule 5 mg PO BEDTIME 90 days #90 caps 09/11/23 doxycycline hyclate 100 mg tablet 100 mg PO BID 7 days #14 tabs 02/26/24 Allergies Allergy/AdvReac Type Severity Reaction Status Date / Time almond [ALMONDS] Allergy Severe THROAT Verified 03/01/24 10:10 CLOSES pecan nut [PECAN] Allergy Severe THROAT Verified 03/01/24 10:10 CLOSES Review of Systems 2 Review of Systems: Yes all other systems are reviewed and are negative PMFSH Past Medical History Attestation statement: The following information was validated with the patient. Source: old records reviewed and nursing notes reviewed Medical History Osteomyelitis CVA (cerebral vascular accident) DVT (deep venous thrombosis) BPH (benign prostatic hyperplasia) Frequency-urgency syndrome Subacute osteomyelitis of right foot Erectile dysfunction Enlarged prostate without lower urinary tract symptoms (luts) History of elevated PSA Surgical History History of surgery Social History Social History Household Members: Family Alcohol intake: never Patient Tobacco Use Status: Never used Tobacco Smoked in Last 30 Days: No Use of substances other than those prescribed or required for medical reasons: No Advance Directives: No Advance Directives Information Provided: Yes Physical Exam ED Vital Signs: Vital Signs - 24 hr 03/01/24 10:07 03/01/24 10:27 Temperature 98 F 98.6 F Pulse Rate 82 78 Respiratory Rate 18 19 Blood Pressure 141/71 H 138/61 Pulse Oximetry 97 93 Oxygen Delivery Method Room Air Room Air BMI result Body Mass Index 38.0 vss. Appearance: Alert.? Oriented X3.? No acute distress.? Head: Normocephalic, atraumatic, no step-offs or deformities Eyes: Pupils equal, round and reactive to light.? Neck: Normal inspection.? Neck supple.? CVS: Normal heart rate and rhythm.? Pulses normal.? Respiratory: No respiratory distress.? Breath sounds normal.? Abdomen: Soft and nontender.? Skin: Skin warm and dry.? Normal skin color.? Normal skin turgor.? Extremities: +Erytrhema and warm to right top of foot and spreading up right lower extremity and into the toes. Small, white blisters ovlerying erythema throughout. 5/5 strength and ROM to bilateral upper and lower extremities, discomfort secondary to pain. 2+ DP and PT pulses to bilateral lower extremities equal and symmetric. Numbness reported to top of right holley. Normal sensation everywhere else on exam to bilateral feet and lower extremities. Pain to palpation of right calf and right foot. Neuro: Oriented X 3.? No motor deficit.? No sensory deficit. CN 2-12 intact Course Reevaluation(s) Reevaluation #1: CBC with leukocytosis, no left shift. However, there is neutrophil predominance. Chemistry no acute electrolyte abnormalities requiring intervention. Patient with elevated BUN and creatinine fluids ordered. There are previous labs from a few days ago which also show an elevated BUN and creatinine,. ESR and CRP both markedly elevated worse than last visit. Time: 12:21 Reevaluation #2: US negative- > hospital admission plan. Time: 12:22 Medications Administered Discontinued Medications Generic Name Dose Route Start Last Admin Trade Name Freq PRN Reason Stop Dose Admin Piperacillin Sod/Tazobactam 50 mls @ 100 mls/hr 03/01/24 11:07 03/01/24 11:57 Sod 3.375 gm/ Sodium Chloride IV 03/01/24 11:36 100 mls/hr ONCE ONE Administration Medical Decision Making Medical Decision Making [facility] Narrative: 1053 73 yo male pmh osteomyelitis presenting with worsening cellulitis of right foot/leg. Seen on Saturday, prescribed Doxy, erytehma spreading. PE: Extremities: +Erytrhema and warm to right top of foot and spreading up right lower extremity and into the toes. Small, white blisters ovlerying erythema throughout. 5/5 strength and ROM to bilateral upper and lower extremities, discomfort secondary to pain. 2+ DP and PT pulses to bilateral lower extremities equal and symmetric. Numbness reported to top of right holley. Normal sensation everywhere else on exam to bilateral feet and lower extremities. Pain to palpation of right calf and right foot. Differential: Cellulitis vs allergic vs contact dermatits. Will rule out DVT due to history and pain. Unlikely necrotizing infection, SJS, TEN, acute threat to limb, neurovascular compromise, compartment syndrome, gout, osteomyelitis. Plan: Labs, venous duplex US, blood cultures, lactic Differential Diagnosis Differential Diagnoses: The differential diagnosis associated with the presentation includes Cellulitis vs allergic vs contact dermatits. Will rule out DVT due to history and pain. Unlikely necrotizing infection, SJS, TEN, acute threat to limb, neurovascular compromise, compartment syndrome, gout, osteomyelitis. Lab Data [facility] Lab Attestation statement: I reviewed the patient's lab results. 03/01/24 10:37 03/01/24 10:37 Labs: Lab Results 03/01/24 Range/Units 10:37 WBC 11.8 H (4.8-10.8) X10*3/uL RBC 4.64 (4.60-5.80) X10*6/uL Hgb 13.9 L (14.0-18.0) g/dl Hct 41.4 L (42.0-52.0) % MCV 89.2 (80.0-98.0) fL MCH 30.0 (27.0-33.0) pg MCHC 33.6 (31.0-36.0) g/dl RDW 12.8 (11.0-16.0) % Plt Count 263 D (160-400) X10*3/uL MPV 10.4 (9.4-12.4) fL Immature Gran % (Auto) 0.5 H (0.0-0.4) % Neut % (Auto) 75.0 H (45-73) % Lymph % (Auto) 11.7 L (20-40) % [place] % (Auto) 11.1 H (2-11) % Eos % (Auto) 1.4 (0-4) % Baso % (Auto) 0.3 (0-2) % Lymph # (Auto) 1.4 (1.2-4.9) X10*3/uL [place] # (Auto) 1.3 H (0.1-1.2) X10*3/uL Eos # (Auto) 0.2 (0.0-0.4) X10*3/uL Baso # (Auto) 0.0 (0.0-0.2) X10*3/uL Abs Immat Gran (auto) 0.06 H (0.00-0.03) X10*3/uL Absolute Neuts (auto) 8.8 H (2.0-8.3) x10*3/uL Absolute Nucleated RBC 0.000 (0.0-0.012) X10*3/uL Nucleated RBC % (auto) 0.0 (0.0-0.2) /100WBC ESR 67 H (0-15) MM/HR Hold Purple Top SEE NOTE Sodium 136 (135-145) mmol/L Potassium 4.7 (3.3-5.1) mmol/L Chloride 103 (96-108) mmol/L Carbon Dioxide 24 (22-29) mmol/L Anion Gap 14 (12-20) BUN 26 H (9-16) mg/dL Creatinine 1.71 H (0.5-1.4) mg/dL Estim Creat Clear Calc 48.4 Estimated GFR 40 Random Glucose 238 H (60-115) mg/dL Lactic Acid 1.5 (0.5-2.0) mmol/L Calcium 9.5 (8.4-10.2) mg/dL Total Bilirubin 0.5 (0.0-1.0) mg/dL AST 27 (5-37) U/L ALT 30 (0-40) U/L Alkaline Phosphatase 78 (39-117) U/L C-Reactive Protein 21.78 H (< or = 0.50) mg/dL Total Protein 7.6 (6.5-8.0) g/dL Albumin 3.8 (3.5-5.0) g/dL Independent Interpretation I performed an independent interpretation of an: Ultrasound Radiology Impression Discussion of test interpretation with radiology: I have reviewed the radiologist's reading. External Record Review External record reviewed: Outpatient record, Prior outpatient labs and Prior outpatient radiology Chronic Conditions Patient?s care impacted by: Other (BPH, erectile dysfunction) Critical Care Time Critical Care Time Critical Care Time: Yes Total Critical Care Time: 35 Attestation: I attest to this time spent taking care of the patient, obtaining history, physical, reviewing labs, imaging, speaking to my attending, specialist or hospitalist. Discharge Plan Discharge Clinical Impression: Cellulitis of right leg Patient Disposition: Admitted As Inpatient Prescriptions: No Action doxycycline hyclate 100 mg tablet 100 mg PO BID 7 Days Qty: 14 0RF spiqkdcb-[id number]-WD 3.5-10,000-1 mg/mL-unit/mL-% drops,suspension 4 drp otic (ear) right Q8H 10 Days Qty: 10 0RF Eliquis 5 mg tablet 5 mg PO BID metoprolol tartrate 25 mg tablet 25 mg PO BID pantoprazole 40 mg tablet,delayed release (DR/EC) 40 mg PO DAILY Jardiance 25 mg tablet 25 mg PO DAILY gabapentin 100 mg capsule PO TID PRN magnesium oxide 400 mg (241.3 mg magnesium) tablet 400 mg PO BID atorvastatin 40 mg tablet 40 mg PO DAILY rosuvastatin 40 mg tablet 40 mg PO DAILY midodrine 10 mg tablet PO (DME) pen needle, diabetic [Easy Touch] 31 gauge x 3/16 needle See Rx Instructions .ROUTE .MEDSUPPLY Qty: 50 Rx Instructions: As directed ferrous sulfate [FeroSul] 325 mg (65 mg iron) tablet 325 mg PO BEDTIME insulin glargine [Lantus Solostar U-100 Insulin] 100 unit/mL (3 mL) insulin pen 40 unit subcut BID insulin aspart U-100 [Novolog U-100 Insulin aspart] 100 unit/mL solution 20 unit subcut BID bisacodyl [Dulcolax (bisacodyl)] 5 mg tablet,delayed release (DR/EC) 20 mg PO ONCE 1 Days Qty: 4 0RF Rx Instructions: Day before procedure, prep day Take 4 tablets by mouth upon awakening followed by large glass of water polyethylene glycol 3350 [Miralax] 17 gram/dose powder 238 g PO ONCE PRN (Reason: laxative effect) 1 Days Qty: 238 0RF Rx Instructions: Take as directed by mouth the day before your procedure. terazosin 5 mg capsule 5 mg PO BEDTIME 90 Days Qty: 90 3RF tadalafil 5 mg tablet 5 mg PO DAILY 90 Days Qty: 90 3RF finasteride 5 mg tablet 5 mg PO BEDTIME 90 Days Qty: 90 3RF Print Language: Bangladeshi
[2024-03-01 10:44] LABS: MANUAL DIFF FLAG NO
[2024-03-01 10:49] LABS: Basophils Percent Auto 0.3 % (0-2); Eosinophils Absolute Auto 0.2 X10*3/uL (0.0-0.4); Eosinophils Percent Auto 1.4 % (0-4); Hematocrit 41.4 % (42.0-52.0); Hemoglobin 13.9 g/dl (14.0-18.0); Imm Gran Abs Auto 0.06 X10*3/uL (0.00-0.03); Imm Gran Pct Auto 0.5 % (0.0-0.4); Lymphocytes Absolute Auto 1.4 X10*3/uL (1.2-4.9); Lymphocytes Percent Auto 11.7 % (20-40); Mean Corpuscular HGB Conc 33.6 g/dl (31.0-36.0); Mean Corpuscular Volume 89.2 fL (80.0-98.0); Mean Platelet Volume 10.4 fL (9.4-12.4); Monocytes Absolute Auto 1.3 X10*3/uL (0.1-1.2); Monocytes Percent Auto 11.1 % (2-11); Neutrophils Absolute Auto 8.8 x10*3/uL (2.0-8.3); Platelet Count 263 X10*3/uL (160-400); Red Blood Count 4.64 X10*6/uL (4.60-5.80); Red Cell Distribution Width 12.8 % (11.0-16.0); White Blood Count 11.8 X10*3/uL (4.8-10.8)
[2024-03-01 10:58] LABS: Lactic Acid 1.5 mmol/L (0.5-2.0)
[2024-03-01 11:03] LABS: Alanine Aminotransferase 30 U/L (0-40); Albumin Level 3.8 g/dL (3.5-5.0); Alkaline Phosphatase 78 U/L (39-117); Anion Gap 14 (12-20); Aspartate Amino Transferase 27 U/L (5-37); Bilirubin Total 0.5 mg/dL (0.0-1.0); Blood Urea Nitrogen 26 mg/dL (9-16); C Reactive Protein 21.78 mg/dL (< or = 0.50); Calcium 9.5 mg/dL (8.4-10.2); Carbon Dioxide 24 mmol/L (22-29); Chloride 103 mmol/L (96-108); Creatinine Clr Calc Pharmacy 48.4; Estimated Glomerular Filt Rate 40; Glucose Random 238 mg/dL (60-115); Potassium 4.7 mmol/L (3.3-5.1); Sodium 136 mmol/L (135-145); Total Protein 7.6 g/dL (6.5-8.0)
[2024-03-01] MEDS: Piperacillin Sodium/Tazobactam 3.375 GM in 0.9 % Sodium Chloride 50 ML IV ×3 (11:57→23:42)
[2024-03-01 12:01] LABS: Erythrocyte Sedimentation Rate 67 MM/HR (0-15)
--- NOTE | 2024-03-01 12:07 | PC.NURSE ---
alert and oriented. slightly muffled voice which pt attributes to a previous stroke. reports deficits to right side. erythema to right lower leg. purple markings with rash extending outside of line - pt says that he has been taking his ABX for a few days and noticed the rash extending past the purple line and came back into ED. labs, US complete. 20g IV left wrist. Zosyn infusing per orders.
--- NOTE | 2024-03-01 12:08 | P.HPHOSP_ITS ---
History of Present Illness Date of Service: 03/01/24 Chief Complaint: Left lower leg cellulitis A 73-year-old male with chronic kidney disease stage 3, insulin-dependent diabetes, h/o dvt, CVA and a history of osteomyelitis of the left great toe, presented to the emergency department (ED) on 02/25 with cellulitis in the ankle area. He was prescribed oral doxycycline and advised to return if the condition did not improve. The redness has since enlarged, prompting him to return to the ED. Below are before and after pictures for reference. 02/26/24 03/01/24 The pictures show worsening of the condition over the past 4 days, with the redness extending from the ankle to the lower leg. The patient reports no fever. There is mild leukocytosis with a WBC count of 11, while CRP (21) and ESR (67) levels are elevated. In the ED, he has been prescribed Zosyn. Review of Systems 2 Review of Systems: Gen: no fever Resp: no sob, no cough CV: no chest, no DALTON, no leg edema GI: No n/v, no abd pain Neuro: No confusion SKin: redness of right lower leg as in the picture Yes all other systems are reviewed and are negative [facility] Medical History Osteomyelitis CVA (cerebral vascular accident) DVT (deep venous thrombosis) BPH (benign prostatic hyperplasia) Frequency-urgency syndrome Subacute osteomyelitis of right foot Erectile dysfunction Enlarged prostate without lower urinary tract symptoms (luts) History of elevated PSA Surgical History History of surgery Social History Household Members: Significant Other and Family Housing: House Do you presently have visiting nurse or other home services: No Alcohol intake: never Patient Tobacco Use Status: Never used Tobacco Smoked in Last 30 Days: No Patient Interested in Nicotine Replacement: No Patient Given Instructions on How to Stop Smoking: No Second Hand Smoke Exposure: No Use of substances other than those prescribed or required for medical reasons: No Currently Displaying Signs/Symptoms of Drug Intoxication Withdrawal: No Any prior treatment program specific to substance use: No Have you been hit, kicked, punched, or otherwise hurt by someone within the past year? If so, by whom?: No Do you feel safe in your current relationship?: No Is there a partner from a previous relationship who is making you feel unsafe now?: No Are you made to feel afraid or neglected: No Advance Directives: No Advance Directives Information Provided: Yes Do you have a plan to hurt others: No Plan Recently lost weight without trying: No Eating poorly because of decreased appetite: No Poor oral hygiene: No Meds Allergies Allergy/AdvReac Type Severity Reaction Status Date / Time almond [ALMONDS] Allergy Severe THROAT Verified 03/01/24 10:10 CLOSES pecan nut [PECAN] Allergy Severe THROAT Verified 03/01/24 10:10 CLOSES Home Medications ?Medication ?Instructions ?Recorded ?Confirmed ?Last Taken ?Type apixaban 5 mg tablet 5 mg PO BID 08/05/20 03/01/24 03/01/24 09:00 History metoprolol tartrate 25 mg tablet 12.5 mg PO BID 08/05/20 03/01/24 03/01/24 09:00 History pantoprazole 40 mg tablet,delayed 40 mg PO DAILY@0630 08/05/20 03/01/24 03/01/24 07:00 History release empagliflozin 25 mg tablet 25 mg PO DAILY 05/05/21 03/01/24 03/01/24 09:00 History (Jardiance) gabapentin 100 mg capsule 100 mg PO TID PRN NEUROPATHY 05/05/21 03/01/24 Unknown History magnesium oxide 400 mg (241.3 mg 400 mg PO BID@0900,1700 07/11/21 03/01/24 03/01/24 09:00 History magnesium) tablet ferrous sulfate 325 mg (65 mg 325 mg PO DAILY 08/31/22 03/01/24 03/01/24 09:00 History iron) tablet (FeroSul) midodrine 10 mg tablet 10 mg PO BID@0900,1700 08/31/22 03/01/24 03/01/24 09:00 History pen needle, diabetic 31 gauge x #50 ea 08/31/22 03/01/24 Unknown History 11/29 (Easy Touch) rosuvastatin 40 mg tablet 40 mg PO BEDTIME 08/31/22 03/01/24 Unknown History insulin aspart U-100 100 unit/mL 15 unit subcut DAILY@0800 12/05/22 03/01/24 Unknown History subcutaneous solution (Novolog U-100 Insulin aspart) insulin glargine 100 unit/mL (3 20 unit subcut BID 12/05/22 03/01/24 Unknown History mL) subcutaneous pen (Lantus Solostar U-100 Insulin) cholecalciferol (vitamin D3) 25 25 mcg PO DAILY 03/01/24 03/01/24 03/01/24 09:00 History mcg (1,000 unit) tablet (Vitamin D3) cyanocobalamin (vitamin B-12) 500 500 mcg PO DAILY 03/01/24 03/01/24 03/01/24 09:00 History mcg tablet diphenoxylate-atropine 2.5 2 tab PO TID PRN Diarrhea 03/01/24 03/01/24 Unknown History mg-0.025 mg tablet finasteride 5 mg tablet 5 mg PO DAILY 03/01/24 03/01/24 03/01/24 09:00 History hydrocodone 5 mg-acetaminophen 300 1 tab PO BID PRN Pain 03/01/24 03/01/24 Unknown History mg tablet insulin aspart U-100 100 unit/mL 11 unit subcut DAILY@1700 03/01/24 03/01/24 Unknown History subcutaneous solution (Novolog U-100 Insulin aspart) insulin aspart U-100 100 unit/mL 12 unit subcut DAILY@1200 03/01/24 03/01/24 Unknown History subcutaneous solution (Novolog U-100 Insulin aspart) polyethylene glycol 3350 17 gram 17 g PO DAILY PRN Constipation 03/01/24 03/01/24 Unknown History oral powder packet Physical Exam 2 Vital Signs and Narrative: Vital Signs: Last Vital Signs Temp 98.6 F 03/01/24 10:27 Pulse 78 03/01/24 10:27 Resp 19 03/01/24 10:27 BP 138/61 03/01/24 10:27 Pulse Ox 93 03/01/24 10:27 O2 Del Method Room Air 03/01/24 10:27 BMI result Body Mass Index 38.0 Constitutional: Alert, in no distress, Mental Status: Oriented to person, place and time. Eyes: Pupils are equal, round and reactive to light. Ear, Nose and Throat: Oropharynx clear, mucous membranes moist. Ears and nose without deformities. Trachea midline. Respiratory: Clear to auscultation. No wheezing, rales or rhonchi. Cardiovascular: S1 S2 regular. No murmurs, rubs or gallops. Gastrointestinal: Abdomen soft, non-tender, non-distended. Normal bowel sounds.? Neurologic: Cranial nerves II-XII grossly intact. No focal neurological deficits. Moves all extremities spontaneously.? Skin: rendess of the right lower leg, ankle as above picture Musculoskeletal: No cyanosis or clubbing. Psychiatric: Normal mood and affect? Results Labs 03/02/24 05:52 03/02/24 05:52 Labs: Laboratory Results - last 24 hr 03/01/24 10:37 MCV 89.2 MCH 30.0 MCHC 33.6 RDW 12.8 Plt Count 263 D MPV 10.4 Immature Gran % (Auto) 0.5 H Neut % (Auto) 75.0 H Lymph % (Auto) 11.7 L [place] % (Auto) 11.1 H Eos % (Auto) 1.4 Baso % (Auto) 0.3 Lymph # (Auto) 1.4 [place] # (Auto) 1.3 H Eos # (Auto) 0.2 Baso # (Auto) 0.0 Abs Immat Gran (auto) 0.06 H Absolute Neuts (auto) 8.8 H Absolute Nucleated RBC 0.000 Nucleated RBC % (auto) 0.0 ESR 67 H Hold Purple Top SEE NOTE Anion Gap 14 Estim Creat Clear Calc 48.4 Estimated GFR 40 Random Glucose 238 H Lactic Acid 1.5 Calcium 9.5 Total Bilirubin 0.5 AST 27 ALT 30 Alkaline Phosphatase 78 C-Reactive Protein 21.78 H Total Protein 7.6 Albumin 3.8 Assessment and Plan (1) Cellulitis of right leg: Status: Acute Plan 73 year old male with CKD3, insulin dependent diabetes, h/o of left great toe osteomylitis (OM) who was seen in the ED on 02/25 with right ankle area cellulitis and was prescribed oral Doxycyline and returns due to worsening of the cellulitis Right ankle area Cellulitis, failed outpatient oral Abx, associated with high CRP and ESR -Zosyn and Vanco -ID consult -MR to rule OM -Follow Blood culture CKD 3--stable, adjust meds renally Insulin dependent diabetes--takes Lantus 20 bid, Humalog 15 in am, 12 at noon and 11 at dinner type. -Adjust Lantus to 15 bid, humalog 5 tid, SSI.. He has dexcom to check his own sugar. Diabetic diet as h/o DVT--continue Eliquis HLD--statin GERD--PPI BPH--Finesteride HTN DVT prophylaxis--Eliquis Full code at least 2 midnights inpatient stay for IV antibiotics for cellulitis that failied outpatient Abx, and at risk for sepsis and OM Quality Stroke Does the patient have a stroke diagnosis?: No VTE Prior VTE?: Yes VTE Risk Level:: Medical - moderate - high VTE Device Contraindication: Treatment Not Indicated VTE Drug Contraindication: N/A - Med Ordered
[2024-03-01] MEDS: 0.9 % Sodium Chloride 500 ML IV (12:42)
[2024-03-01] MEDS: vancomycin/NS 2,000 MG/500 ML PLAST..BAG 250 MG IV (13:03)
--- NOTE | 2024-03-01 13:12 | PHA.MEDREC ---
Pharmacy Consult ? Medication Reconciliation Pharmacy has completed the medication reconciliation.
--- NOTE | 2024-03-01 13:54 | PHA.PROG ---
Admission Date/Time: March 01, 2024 12:36 Indication:SKIN Weight in k.398 kg Adjusted body weight in K.4 [place] body weight in K.4 Obesity Dosing Indication % IBW: 38.0 Serum Creatinine - Last 168 Hours 03/01/24 10:37 Creatinine 1.71 H Estimated CrCl and GFR - Last 168 Hours 03/01/24 10:37 Estim Creat Clear Calc 48.4 Estimated GFR 40 Vancomycin Loading Dose: 2000 MG Current Vancomycin Dosing Regimen: 1250 MG Q24 Vancomycin Monitoring using AUC goal of 400 - 600 range with trough as surrogate marker: 458 Date and Time for next Vancomycin Level to be drawn: 03/03 @1100 Pharmacist Comments on Vancomycin Plan: Will be drawing level before 3rd dose and monitoring renal function carefully due to concerning patient factors. Patient is older, obese, and has poor renal function. Also is being given concurrent zosyn leading to concerns for ADRIANA and supratherapeutic levels. Vancomycin dosing will take advantage of [employer] as a clinical decision support tool that uses Bayesian modeling to calculate individual patient's pharmacokinetic parameters and forecast the patient's drug concentration time course with the target goal AUC 24 range of 400 - 600 mg/L/hr.
[2024-03-01 14:42] VITALS: BMI 38.1
[2024-03-01 15:20] VITALS: BP 143/67; PULSE 78; RESP 16; TEMP 36.1; O2SAT 97
[2024-03-01] MEDS: Midodrine HCl 10 MG TABLET PO (16:07)
[2024-03-01] MEDS: Magnesium Oxide 400 MG TABLET PO (16:07)
[2024-03-01 16:11] LABS: Glucose, Whole Blood 141 mg/dL (60-115)
[2024-03-01] MEDS: Gabapentin 100 MG CAPSULE PO (16:15)
[2024-03-01] MEDS: polyethylene glycoL 3350 17 GM POWD.PACK PO (16:15)
[2024-03-01] MEDS: Insulin Lispro 100 UNIT/ML 3 ML VIAL SUBCUT ×2 (17:10→21:09)
[2024-03-01 19:56] VITALS: BP 131/59; PULSE 73; RESP 18; TEMP 36.4; O2SAT 94
[2024-03-01 20:31] LABS: Glucose, Whole Blood 176 mg/dL (60-115)
[2024-03-01] MEDS: Metoprolol Tartrate 12.5 MG HALFTAB PO (21:08)
[2024-03-01] MEDS: Apixaban 5 MG TABLET PO (21:09)
[2024-03-01] MEDS: Doxazosin Mesylate 2 MG TABLET 4 MG PO (21:09)
[2024-03-01] MEDS: Atorvastatin Calcium 80 MG TABLET PO (21:09)
[2024-03-01] MEDS: Insulin Glargine,Hum.rec.anlog 100 UNIT/ML 10 ML VIAL 15 UNIT SUBCUT (21:09)
[2024-03-01] MEDS: 0.9 % Sodium Chloride Flush 3 ML SYRINGE IVFLUSH (23:43)
[2024-03-02] MEDS: Gabapentin 100 MG CAPSULE PO ×2 (01:40→17:29)
[2024-03-02 03:27] VITALS: BP 149/65; PULSE 68; RESP 16; TEMP 36.1; O2SAT 93
[2024-03-02] MEDS: Omeprazole 20 MG CAPSULE.DR PO (05:53)
[2024-03-02] MEDS: Piperacillin Sodium/Tazobactam 3.375 GM in 0.9 % Sodium Chloride 50 ML IV ×4 (05:53→23:30)
[2024-03-02 06:29] LABS: MANUAL DIFF FLAG NO
[2024-03-02 06:33] LABS: Basophils Percent Auto 0.4 % (0-2); Eosinophils Absolute Auto 0.2 X10*3/uL (0.0-0.4); Eosinophils Percent Auto 2.6 % (0-4); Hematocrit 39.6 % (42.0-52.0); Hemoglobin 13.5 g/dl (14.0-18.0); Imm Gran Abs Auto 0.03 X10*3/uL (0.00-0.03); Imm Gran Pct Auto 0.3 % (0.0-0.4); Lymphocytes Absolute Auto 1.4 X10*3/uL (1.2-4.9); Lymphocytes Percent Auto 15.5 % (20-40); Mean Corpuscular HGB Conc 34.1 g/dl (31.0-36.0); Mean Corpuscular Hemoglobin 30.3 pg (27.0-33.0); Mean Platelet Volume 10.7 fL (9.4-12.4); Monocytes Percent Auto 11.3 % (2-11); Neutrophils Absolute Auto 6.5 x10*3/uL (2.0-8.3); Neutrophils Percent Auto 69.9 % (45-73); Platelet Count 225 X10*3/uL (160-400); Red Blood Count 4.45 X10*6/uL (4.60-5.80); Red Cell Distribution Width 12.8 % (11.0-16.0); White Blood Count 9.2 X10*3/uL (4.8-10.8)
[2024-03-02 06:55] VITALS: BP 136/60; PULSE 72; RESP 17; TEMP 36.6; O2SAT 94
[2024-03-02 06:57] LABS: Anion Gap 13 (12-20); Blood Urea Nitrogen 24 mg/dL (9-16); Calcium 9.2 mg/dL (8.4-10.2); Carbon Dioxide 19 mmol/L (22-29); Chloride 108 mmol/L (96-108); Estimated Glomerular Filt Rate 47; Glucose Random 153 mg/dL (60-115); Potassium 4.2 mmol/L (3.3-5.1); Sodium 136 mmol/L (135-145)
[2024-03-02 07:12] LABS: Glucose, Whole Blood 166 mg/dL (60-115)
[2024-03-02] MEDS: Insulin Lispro 100 UNIT/ML 3 ML VIAL SUBCUT ×7 (07:36→21:17)
[2024-03-02] MEDS: 0.9 % Sodium Chloride Flush 3 ML SYRINGE IVFLUSH ×3 (07:38→21:20)
[2024-03-02] MEDS: Cyanocobalamin (Vitamin B-12) 500 MCG TABLET PO (07:38)
[2024-03-02] MEDS: Ferrous Sulfate 324 MG TABLET.DR PO (07:39)
[2024-03-02] MEDS: Empagliflozin 25 MG TABLET PO (07:39)
[2024-03-02] MEDS: Apixaban 5 MG TABLET PO ×2 (07:39→21:16)
[2024-03-02] MEDS: Magnesium Oxide 400 MG TABLET PO ×2 (07:39→17:23)
[2024-03-02] MEDS: Cholecalciferol (Vitamin D3) 25 MCG TABLET PO (07:39)
[2024-03-02] MEDS: Metoprolol Tartrate 12.5 MG HALFTAB PO ×2 (07:39→21:14)
[2024-03-02] MEDS: Midodrine HCl 10 MG TABLET PO ×2 (07:39→17:23)
[2024-03-02] MEDS: Finasteride 5 MG TABLET PO (07:39)
[2024-03-02] MEDS: Acetaminophen 325 MG TABLET 650 MG PO (07:51)
[2024-03-02] MEDS: Insulin Glargine,Hum.rec.anlog 100 UNIT/ML 10 ML VIAL 15 UNIT SUBCUT ×2 (08:54→21:18)
[2024-03-02 11:05] LABS: Glucose, Whole Blood 178 mg/dL (60-115)
--- NOTE | 2024-03-02 11:07 | P.PNIM_ITS ---
Subjective Subjective Date of Service: 03/02/24 Interval History: f/u on on severe cellulitis and concern for OM or right ankle/lower leg Physical Exam 2 Vital Signs: Vital Signs: Last Vital Signs Temp 97.9 F 03/02/24 06:55 Pulse 72 03/02/24 06:55 Resp 17 03/02/24 06:55 BP 136/60 03/02/24 06:55 Pulse Ox 94 03/02/24 06:55 O2 Del Method Room Air 03/02/24 06:55 BMI result Body Mass Index 38.1 General: AO X 3, no acute distress Resp: CTA bilateral CVS: S1,S2,RRR GI: +BS, NT, no distention Skin: Neuro: motor grossly intact Psych: appropriate affect Objective Data Active Medications Acetaminophen (Acetaminophen 325 Mg Tablet) 650 mg PO Q6H PRN PRN Reason: Pain, Mild (Pain Scale 1-3) Last Admin: 03/02/24 07:51 Dose: 650 mg Documented By: PETEY Al Hydroxide/Mg Hydroxide (Magnesium Hydrox/Alum Hydrox 30 Ml Oral.Susp) 30 ml PO Q4H PRN PRN Reason: Heartburn/Nausea Apixaban (Apixaban 5 Mg Tablet) 5 mg PO BID [facility] Last Admin: 03/02/24 07:39 Dose: 5 mg Documented By: PETEY Atorvastatin Calcium (Atorvastatin Calcium 80 Mg Tablet) 80 mg PO BEDTIME [facility] Last Admin: 03/01/24 21:09 Dose: 80 mg Documented By: REID Cyanocobalamin (Cyanocobalamin (Vitamin B-12) 500 Mcg Tablet) 500 mcg PO DAILY [facility] Last Admin: 03/02/24 07:38 Dose: 500 mcg Documented By: PETEY Diphenoxylate HCl/Atropine (Diphenoxylate/Atrop 2.5/0.025 Tablet) 2 tab PO TID PRN PRN Reason: Diarrhea Doxazosin Mesylate (Doxazosin Mesylate 2 Mg Tablet) 4 mg PO BEDTIME [facility] Last Admin: 03/01/24 21:09 Dose: 4 mg Documented By: REID Empagliflozin (Empagliflozin 25 Mg Tablet) 25 mg PO DAILY [facility] Last Admin: 03/02/24 07:39 Dose: 25 mg Documented By: PETEY Ferrous Sulfate (Ferrous Sulfate 324 Mg Tablet.) 324 mg PO DAILY [facility] Last Admin: 03/02/24 07:39 Dose: 324 mg Documented By: PETEY Finasteride (Finasteride 5 Mg Tablet) 5 mg PO DAILY [facility] Last Admin: 03/02/24 07:39 Dose: 5 mg Documented By: PETEY Gabapentin (Gabapentin 100 Mg Capsule) 100 mg PO TID PRN PRN Reason: NEUROPATHY Last Admin: 03/02/24 01:40 Dose: 100 mg Documented By: REID Glucose (Glucose Gel 15 Gm Gel..Gram.) 15 gm PO Q15M PRN; Protocol PRN Reason: per Hypoglycemia Standing Ord. Dextrose (D10) 250 mls @ 750 mls/hr IV Q15M PRN; Protocol PRN Reason: per Hypoglycemia Standing Ord. Piperacillin Sod/Tazobactam (Sod 3.375 gm/ Sodium Chloride) 50 mls @ 100 mls/hr IV Q6H [facility] Last Infusion: 03/02/24 06:28 Dose: Infused Documented By: REID Vancomycin HCl 1,250 mg/ (Sodium Chloride) 250 mls @ 166.667 mls/hr IV Q24H [facility] Insulin Glargine (Insulin Glargine,Hum.Rec.Anlog 100 Unit/Ml 10 Ml Vial) 15 unit SUBCUT BID [facility] Last Admin: 03/02/24 08:54 Dose: 15 unit Documented By: PETEY Insulin Human Lispro (Insulin Lispro 100 Unit/Ml 3 Ml Vial) 0 unit SUBCUT QIDACHS [facility]; Protocol Last Admin: 03/02/24 07:36 Dose: 2 unit Documented By: PETEY Insulin Human Lispro (Insulin Lispro 100 Unit/Ml 3 Ml Vial) 5 unit SUBCUT TIDAC [facility] Last Admin: 03/02/24 07:36 Dose: 5 unit Documented By: PETEY Magnesium Hydroxide (Milk Of Magnesia 30 Ml Oral.Susp) 30 ml PO DAILY PRN PRN Reason: Constipation Magnesium Oxide (Magnesium Oxide 400 Mg Tablet) 400 mg PO BID@0900,1700 [facility] Last Admin: 03/02/24 07:39 Dose: 400 mg Documented By: PETEY Melatonin (Melatonin 3 Mg Tablet) 6 mg PO BEDTIME PRN PRN Reason: Insomnia Metoprolol Tartrate (Metoprolol Tartrate 12.5 Mg Halftab) 12.5 mg PO BID [facility]; Protocol Last Admin: 03/02/24 07:39 Dose: 12.5 mg Documented By: PETEY Midodrine (Midodrine Hcl 10 Mg Tablet) 10 mg PO BID@0900,1700 [facility] Last Admin: 03/02/24 07:39 Dose: 10 mg Documented By: PETEY Morphine Sulfate (Morphine Sulfate 4 Mg/Ml Cartridge) 2 mg IVPUSH Q6H PRN; Protocol PRN Reason: Pain, Severe (Pain Scale 7-10) Omeprazole (Omeprazole 20 Mg Capsule.Dr) 20 mg PO DAILY@0630 [facility] Last Admin: 03/02/24 05:53 Dose: 20 mg Documented By: REID Ondansetron HCl (Ondansetron Hcl 4 Mg/2 Ml Vial) 4 mg IVPUSH Q8H PRN PRN Reason: Nausea and Vomiting Pharmacy Consult (Consult Rx Vancomycin Dosing) 1 each MISCELLANE DAILY PRN PRN Reason: Consult order Polyethylene Glycol (Polyethylene Glycol 3350 17 Gm Powd.Pack) 17 gm PO DAILY PRN PRN Reason: Constipation Last Admin: 03/01/24 16:15 Dose: 17 gm Documented By: SRINIVASAN Sodium Chloride (0.9 % Sodium Chloride Flush 3 Ml Syringe) 3 ml IVFLUSH QSHIFT [facility] Last Admin: 03/02/24 07:38 Dose: 3 ml Documented By: PETEY Vitamin D (Cholecalciferol (Vitamin D3) 25 Mcg Tablet) 25 mcg PO DAILY [facility] Last Admin: 03/02/24 07:39 Dose: 25 mcg Documented By: PETEY Labs 03/02/24 05:52 03/02/24 05:52 Labs: Laboratory Results - last 24 hr 03/01/24 03/01/24 03/01/24 10:37 16:07 20:23 MCV MCH MCHC RDW Plt Count MPV Immature Gran % (Auto) Neut % (Auto) Lymph % (Auto) [place] % (Auto) Eos % (Auto) Baso % (Auto) Lymph # (Auto) [place] # (Auto) Eos # (Auto) Baso # (Auto) Abs Immat Gran (auto) Absolute Neuts (auto) Absolute Nucleated RBC Nucleated RBC % (auto) ESR 67 H Anion Gap Estim Creat Clear Calc Estimated GFR POC Glucose 141 H 176 H Random Glucose Calcium 03/02/24 03/02/24 03/02/24 05:52 07:04 10:58 MCV 89.0 MCH 30.3 MCHC 34.1 RDW 12.8 Plt Count 225 MPV 10.7 Immature Gran % (Auto) 0.3 Neut % (Auto) 69.9 Lymph % (Auto) 15.5 L [place] % (Auto) 11.3 H Eos % (Auto) 2.6 Baso % (Auto) 0.4 Lymph # (Auto) 1.4 [place] # (Auto) 1.0 Eos # (Auto) 0.2 Baso # (Auto) 0.0 Abs Immat Gran (auto) 0.03 Absolute Neuts (auto) 6.5 Absolute Nucleated RBC 0.000 Nucleated RBC % (auto) 0.0 ESR Anion Gap 13 Estim Creat Clear Calc 56.0 Estimated GFR 47 POC Glucose 166 H 178 H Random Glucose 153 H Calcium 9.2 Assessment and Plan (1) Cellulitis of right leg: Status: Acute Plan 73 year old male with CKD3, insulin dependent diabetes, h/o of left great toe osteomylitis (OM) who was seen in the ED on 02/25 with right ankle area cellulitis and was prescribed oral Doxycyline and returns due to worsening of the cellulitis Right ankle area Cellulitis, failed outpatient oral Abx, associated with high CRP and ESR -Zosyn and Vanco started 03/01 -ID consult -MR to rule OM -Follow Blood culture CKD 3--stable, adjust meds renally Insulin dependent diabetes--takes Lantus 20 bid, Humalog 15 in am, 12 at noon and 11 at dinner type. -Adjusted Lantus to 15 bid, humalog 5 tid, SSI.. He has dexcom to check his own sugar. Diabetic diet as h/o DVT--continue Eliquis HLD--statin GERD--PPI BPH--Finesteride HTN, controlled continue metoprolol DVT prophylaxis--Eliquis Full code need for inpatient: IV antibiotics for cellulitis that failied outpatient Abx, and at risk for sepsis and OM Quality Stroke Does the patient have a stroke diagnosis?: No VTE Prior VTE?: Yes VTE Risk Level:: Medical - moderate - high VTE Device Contraindication: Treatment Not Indicated VTE Drug Contraindication: N/A - Med Ordered
[2024-03-02] MEDS: gadobutroL 10 ML VIAL IVPUSH (13:12)
[2024-03-02] MEDS: vancomycin HCL 1,250 MG in 0.9 % Sodium Chloride 250 ML 166.67 MG IV (13:43)
[2024-03-02 15:18] VITALS: BP 131/65; PULSE 70; RESP 12; TEMP 36.1; O2SAT 94
--- NOTE | 2024-03-02 16:25 | MHC.CM.PN ---
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
--- NOTE | 2024-03-02 16:55 | P.CNID_ITS ---
History of Present Illness Data of Consult Service Date: 03/02/24 Requesting physician: Leeroy Doe Primary Care Provider: Manan Reinoso MD [facility] Reason for consult: cellulitis right ankle He presents with right ankle discomfort with redness moving up leg for five days. He was initially given po Doxycycline but no better. He is on Vancomycin and Zosyn He has no injury. [facility] Past Medical History Medical History Osteomyelitis CVA (cerebral vascular accident) DVT (deep venous thrombosis) BPH (benign prostatic hyperplasia) Frequency-urgency syndrome Subacute osteomyelitis of right foot Erectile dysfunction Enlarged prostate without lower urinary tract symptoms (luts) History of elevated PSA Surgical History Surgical History History of surgery Social History Social History Household Members: Significant Other and Family Housing: House Do you presently have visiting nurse or other home services: No Alcohol intake: never Patient Tobacco Use Status: Never used Tobacco Smoked in Last 30 Days: No Patient Interested in Nicotine Replacement: No Patient Given Instructions on How to Stop Smoking: No Second Hand Smoke Exposure: No Use of substances other than those prescribed or required for medical reasons: No Currently Displaying Signs/Symptoms of Drug Intoxication Withdrawal: No Any prior treatment program specific to substance use: No Have you been hit, kicked, punched, or otherwise hurt by someone within the past year? If so, by whom?: No Do you feel safe in your current relationship?: No Is there a partner from a previous relationship who is making you feel unsafe now?: No Are you made to feel afraid or neglected: No Advance Directives: No Advance Directives Information Provided: Yes Do you have a plan to hurt others: No Plan Recently lost weight without trying: No Eating poorly because of decreased appetite: No Poor oral hygiene: No service: Yes Meds Allergies Allergy/AdvReac Type Severity Reaction Status Date / Time almond [ALMONDS] Allergy Severe THROAT Verified 03/01/24 10:10 CLOSES pecan nut [PECAN] Allergy Severe THROAT Verified 03/01/24 10:10 CLOSES Active Medications: Current Medications Acetaminophen (Acetaminophen 325 Mg Tablet) 650 mg PO Q6H PRN PRN Reason: Pain, Mild (Pain Scale 1-3) Last Admin: 03/02/24 07:51 Dose: 650 mg Al Hydroxide/Mg Hydroxide (Magnesium Hydrox/Alum Hydrox 30 Ml Oral.Susp) 30 ml PO Q4H PRN PRN Reason: Heartburn/Nausea Apixaban (Apixaban 5 Mg Tablet) 5 mg PO BID [facility] Last Admin: 03/02/24 07:39 Dose: 5 mg Atorvastatin Calcium (Atorvastatin Calcium 80 Mg Tablet) 80 mg PO BEDTIME [facility] Last Admin: 03/01/24 21:09 Dose: 80 mg Cyanocobalamin (Cyanocobalamin (Vitamin B-12) 500 Mcg Tablet) 500 mcg PO DAILY [facility] Last Admin: 03/02/24 07:38 Dose: 500 mcg Diphenoxylate HCl/Atropine (Diphenoxylate/Atrop 2.5/0.025 Tablet) 2 tab PO TID PRN PRN Reason: Diarrhea Doxazosin Mesylate (Doxazosin Mesylate 2 Mg Tablet) 4 mg PO BEDTIME [facility] Last Admin: 03/01/24 21:09 Dose: 4 mg Empagliflozin (Empagliflozin 25 Mg Tablet) 25 mg PO DAILY [facility] Last Admin: 03/02/24 07:39 Dose: 25 mg Ferrous Sulfate (Ferrous Sulfate 324 Mg Tablet.Dr) 324 mg PO DAILY [facility] Last Admin: 03/02/24 07:39 Dose: 324 mg Finasteride (Finasteride 5 Mg Tablet) 5 mg PO DAILY [facility] Last Admin: 03/02/24 07:39 Dose: 5 mg Gabapentin (Gabapentin 100 Mg Capsule) 100 mg PO TID PRN PRN Reason: NEUROPATHY Last Admin: 03/02/24 01:40 Dose: 100 mg Glucose (Glucose Gel 15 Gm Gel..Gram.) 15 gm PO Q15M PRN; Protocol PRN Reason: per Hypoglycemia Standing Ord. Dextrose (D10) 250 mls @ 750 mls/hr IV Q15M PRN; Protocol PRN Reason: per Hypoglycemia Standing Ord. Piperacillin Sod/Tazobactam (Sod 3.375 gm/ Sodium Chloride) 50 mls @ 100 mls/hr IV Q6H [facility] Last Infusion: 03/02/24 12:03 Dose: Infused Vancomycin HCl 1,250 mg/ (Sodium Chloride) 250 mls @ 166.667 mls/hr IV Q24H [facility] Last Infusion: 03/02/24 15:20 Dose: Infused Insulin Glargine (Insulin Glargine,Hum.Rec.Anlog 100 Unit/Ml 10 Ml Vial) 15 unit SUBCUT BID [facility] Last Admin: 03/02/24 08:54 Dose: 15 unit Insulin Human Lispro (Insulin Lispro 100 Unit/Ml 3 Ml Vial) 0 unit SUBCUT QIDACHS [facility]; Protocol Last Admin: 03/02/24 11:27 Dose: 2 unit Insulin Human Lispro (Insulin Lispro 100 Unit/Ml 3 Ml Vial) 5 unit SUBCUT TIDAC [facility] Last Admin: 03/02/24 11:28 Dose: 5 unit Magnesium Hydroxide (Milk Of Magnesia 30 Ml Oral.Susp) 30 ml PO DAILY PRN PRN Reason: Constipation Magnesium Oxide (Magnesium Oxide 400 Mg Tablet) 400 mg PO BID@0900,1700 [facility] Last Admin: 03/02/24 07:39 Dose: 400 mg Melatonin (Melatonin 3 Mg Tablet) 6 mg PO BEDTIME PRN PRN Reason: Insomnia Metoprolol Tartrate (Metoprolol Tartrate 12.5 Mg Halftab) 12.5 mg PO BID [facility]; Protocol Last Admin: 03/02/24 07:39 Dose: 12.5 mg Midodrine (Midodrine Hcl 10 Mg Tablet) 10 mg PO BID@0900,1700 [facility] Last Admin: 03/02/24 07:39 Dose: 10 mg Morphine Sulfate (Morphine Sulfate 4 Mg/Ml Cartridge) 2 mg IVPUSH Q6H PRN; Protocol PRN Reason: Pain, Severe (Pain Scale 7-10) Omeprazole (Omeprazole 20 Mg Capsule.Dr) 20 mg PO DAILY@0630 [facility] Last Admin: 03/02/24 05:53 Dose: 20 mg Ondansetron HCl (Ondansetron Hcl 4 Mg/2 Ml Vial) 4 mg IVPUSH Q8H PRN PRN Reason: Nausea and Vomiting Pharmacy Consult (Consult Rx Vancomycin Dosing) 1 each MISCELLANE DAILY PRN PRN Reason: Consult order Polyethylene Glycol (Polyethylene Glycol 3350 17 Gm Powd.Pack) 17 gm PO DAILY PRN PRN Reason: Constipation Last Admin: 03/01/24 16:15 Dose: 17 gm Sodium Chloride (0.9 % Sodium Chloride Flush 3 Ml Syringe) 3 ml IVFLUSH QSHIFT [facility] Last Admin: 03/02/24 07:38 Dose: 3 ml Vitamin D (Cholecalciferol (Vitamin D3) 25 Mcg Tablet) 25 mcg PO DAILY [facility] Last Admin: 03/02/24 07:39 Dose: 25 mcg Home Medications ?Medication ?Instructions ?Recorded ?Confirmed ?Last Taken ?Type apixaban 5 mg tablet 5 mg PO BID 08/05/20 03/01/24 03/01/24 09:00 History metoprolol tartrate 25 mg tablet 12.5 mg PO BID 08/05/20 03/01/24 03/01/24 09:00 History pantoprazole 40 mg tablet,delayed 40 mg PO DAILY@0630 08/05/20 03/01/24 03/01/24 07:00 History release empagliflozin 25 mg tablet 25 mg PO DAILY 05/05/21 03/01/24 03/01/24 09:00 History (Jardiance) gabapentin 100 mg capsule 100 mg PO TID PRN NEUROPATHY 05/05/21 03/01/24 Unknown History magnesium oxide 400 mg (241.3 mg 400 mg PO BID@0900,1700 07/11/21 03/01/24 03/01/24 09:00 History magnesium) tablet ferrous sulfate 325 mg (65 mg 325 mg PO DAILY 08/31/22 03/01/24 03/01/24 09:00 History iron) tablet (FeroSul) midodrine 10 mg tablet 10 mg PO BID@0900,1700 08/31/22 03/01/24 03/01/24 09:00 History pen needle, diabetic 31 gauge x #50 ea 08/31/22 03/01/24 Unknown History 11/29 (Easy Touch) rosuvastatin 40 mg tablet 40 mg PO BEDTIME 08/31/22 03/01/24 Unknown History insulin aspart U-100 100 unit/mL 15 unit subcut DAILY@0800 12/05/22 03/01/24 Unknown History subcutaneous solution (Novolog U-100 Insulin aspart) insulin glargine 100 unit/mL (3 20 unit subcut BID 12/05/22 03/01/24 Unknown History mL) subcutaneous pen (Lantus Solostar U-100 Insulin) cholecalciferol (vitamin D3) 25 25 mcg PO DAILY 03/01/24 03/01/24 03/01/24 09:00 History mcg (1,000 unit) tablet (Vitamin D3) cyanocobalamin (vitamin B-12) 500 500 mcg PO DAILY 03/01/24 03/01/24 03/01/24 09:00 History mcg tablet diphenoxylate-atropine 2.5 2 tab PO TID PRN Diarrhea 03/01/24 03/01/24 Unknown History mg-0.025 mg tablet finasteride 5 mg tablet 5 mg PO DAILY 03/01/24 03/01/24 03/01/24 09:00 History hydrocodone 5 mg-acetaminophen 300 1 tab PO BID PRN Pain 03/01/24 03/01/24 Unknown History mg tablet insulin aspart U-100 100 unit/mL 11 unit subcut DAILY@1700 03/01/24 03/01/24 Unknown History subcutaneous solution (Novolog U-100 Insulin aspart) insulin aspart U-100 100 unit/mL 12 unit subcut DAILY@1200 03/01/24 03/01/24 Unknown History subcutaneous solution (Novolog U-100 Insulin aspart) polyethylene glycol 3350 17 gram 17 g PO DAILY PRN Constipation 03/01/24 03/01/24 Unknown History oral powder packet Physical Exam 2 Vital Signs: Vital Signs: Last Vital Signs Temp 97 F 03/02/24 15:18 Pulse 70 03/02/24 15:18 Resp 12 03/02/24 15:18 BP 131/65 03/02/24 15:18 Pulse Ox 94 03/02/24 15:18 O2 Del Method Room Air 03/02/24 15:18 BMI result Body Mass Index 38.1 Const: General: cooperative HEENT: Head: Yes normal to inspection Face and sinus: Yes normal facial exam Mouth: Normal oral and palatal mucosa present Teeth and gingiva: d entition normal Eyes: General: appearance normal, both eyes and all related structures P upils: Equal, round and reactive pupils present Resp: Effort & Inspection: normal respiratory effort Cardio: Rate: regular rate Rhythm: regular rhythm GI: Palpation (GI): Soft to palpation and nontender : General: Yes no CVA tenderness Back/Spine/Pelvis: Back: no CVA tenderness Skin: General skin exam: no rashes or lesions noted Neuro: General: moves all extremities Cranial nerves: Yes Equal, round and reactive pupils present Extrem: Other: redness right ankle Psych: Appearance: grossly normal Results Labs 03/02/24 05:52 03/03/24 05:48 Labs: Short CBC 03/02/24 Range/Units 05:52 WBC 9.2 (4.8-10.8) X10*3/uL Hgb 13.5 L (14.0-18.0) g/dl Hct 39.6 L (42.0-52.0) % Plt Count 225 (160-400) X10*3/uL BMP 03/02/24 05:52 Sodium 136 Potassium 4.2 Chloride 108 Carbon Dioxide 19 L BUN 24 H Creatinine 1.48 H Calcium 9.2 Microbiology Microbiology Results: Microbiology 03/01/24 10:53 Blood - Venous Blood Culture - Preliminary No growth after 24 hours. 03/01/24 10:37 Blood - Venous Blood Culture - Preliminary No growth after 24 hours. Assessment and Plan (1) Cellulitis of right leg: Status: Acute He has possible staph or strep He has high CRP and ESR (2) Cellulitis of right leg: Status: Acute Plan Would continue Vancomycin. Can switch to po Doxycycline for a week when improved.
[2024-03-02 17:04] LABS: Glucose, Whole Blood 161 mg/dL (60-115)
[2024-03-02] MEDS: polyethylene glycoL 3350 17 GM POWD.PACK PO (18:16)
[2024-03-02 19:44] VITALS: BP 133/63; PULSE 66; RESP 18; TEMP 36.2; O2SAT 97
[2024-03-02 20:51] LABS: Glucose, Whole Blood 218 mg/dL (60-115)
[2024-03-02 21:15] VITALS: BP 133/63
[2024-03-02] MEDS: Atorvastatin Calcium 80 MG TABLET PO (21:15)
[2024-03-02] MEDS: Doxazosin Mesylate 2 MG TABLET 4 MG PO (21:15)
[2024-03-03] MEDS: Gabapentin 100 MG CAPSULE PO ×3 (00:08→20:37)
[2024-03-03 04:00] VITALS: BP 154/69; PULSE 70; RESP 18; TEMP 36.3; O2SAT 96
[2024-03-03] MEDS: Acetaminophen 325 MG TABLET 650 MG PO ×2 (05:30→18:25)
[2024-03-03] MEDS: Omeprazole 20 MG CAPSULE.DR PO (05:30)
[2024-03-03] MEDS: Piperacillin Sodium/Tazobactam 3.375 GM in 0.9 % Sodium Chloride 50 ML IV ×4 (05:31→23:26)
[2024-03-03 06:34] LABS: Creatinine Clr Calc Pharmacy 54.9; Estimated Glomerular Filt Rate 46
[2024-03-03 07:15] LABS: Glucose, Whole Blood 159 mg/dL (60-115)
[2024-03-03 07:31] VITALS: BP 126/61; PULSE 67; RESP 18; TEMP 36.1; O2SAT 95
[2024-03-03] MEDS: Insulin Lispro 100 UNIT/ML 3 ML VIAL SUBCUT ×5 (08:21→20:37)
[2024-03-03] MEDS: Insulin Glargine,Hum.rec.anlog 100 UNIT/ML 10 ML VIAL 15 UNIT SUBCUT ×2 (08:22→20:38)
[2024-03-03] MEDS: Cyanocobalamin (Vitamin B-12) 500 MCG TABLET PO (08:23)
[2024-03-03] MEDS: Metoprolol Tartrate 12.5 MG HALFTAB PO ×2 (08:23→20:37)
[2024-03-03] MEDS: Magnesium Oxide 400 MG TABLET PO ×2 (08:23→17:01)
[2024-03-03] MEDS: Midodrine HCl 10 MG TABLET PO ×2 (08:23→17:01)
[2024-03-03] MEDS: Apixaban 5 MG TABLET PO ×2 (08:24→20:37)
[2024-03-03] MEDS: Ferrous Sulfate 324 MG TABLET.DR PO (08:24)
[2024-03-03] MEDS: Finasteride 5 MG TABLET PO (08:24)
[2024-03-03] MEDS: Empagliflozin 25 MG TABLET PO (08:24)
[2024-03-03] MEDS: Cholecalciferol (Vitamin D3) 25 MCG TABLET PO (08:24)
[2024-03-03] MEDS: 0.9 % Sodium Chloride Flush 3 ML SYRINGE IVFLUSH ×3 (08:25→20:38)
--- NOTE | 2024-03-03 09:47 | P.PNIM_ITS ---
Subjective Subjective Date of Service: 03/03/24 Interval History: f/u on on severe cellulitis and right ankle/lower leg there remain redness at the ankle and lower leg but better Physical Exam 2 Vital Signs: Vital Signs: Last Vital Signs Temp 96.9 F 03/03/24 07:31 Pulse 67 03/03/24 07:31 Resp 18 03/03/24 07:31 BP 126/61 03/03/24 07:31 Pulse Ox 95 03/03/24 07:31 O2 Del Method Room Air 03/03/24 07:31 BMI result Body Mass Index 38.1 General: AO X 3, no acute distress Resp: CTA bilateral CVS: S1,S2,RRR GI: +BS, NT, no distention Skin: redness on the foot, leg is slightly better than yesterday Neuro: motor grossly intact, 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 Psych: appropriate affect Objective Data Active Medications Acetaminophen (Acetaminophen 325 Mg Tablet) 650 mg PO Q6H PRN PRN Reason: Pain, Mild (Pain Scale 1-3) Last Admin: 03/03/24 05:30 Dose: 650 mg Documented By: REGIS Al Hydroxide/Mg Hydroxide (Magnesium Hydrox/Alum Hydrox 30 Ml Oral.Susp) 30 ml PO Q4H PRN PRN Reason: Heartburn/Nausea Apixaban (Apixaban 5 Mg Tablet) 5 mg PO BID [facility] Last Admin: 03/03/24 08:24 Dose: 5 mg Documented By: JEFF Atorvastatin Calcium (Atorvastatin Calcium 80 Mg Tablet) 80 mg PO BEDTIME [facility] Last Admin: 03/02/24 21:15 Dose: 80 mg Documented By: REGIS Cyanocobalamin (Cyanocobalamin (Vitamin B-12) 500 Mcg Tablet) 500 mcg PO DAILY [facility] Last Admin: 03/03/24 08:23 Dose: 500 mcg Documented By: JEFF Diphenoxylate HCl/Atropine (Diphenoxylate/Atrop 2.5/0.025 Tablet) 2 tab PO TID PRN PRN Reason: Diarrhea Doxazosin Mesylate (Doxazosin Mesylate 2 Mg Tablet) 4 mg PO BEDTIME [facility] Last Admin: 03/02/24 21:15 Dose: 4 mg Documented By: REGIS Empagliflozin (Empagliflozin 25 Mg Tablet) 25 mg PO DAILY [facility] Last Admin: 03/03/24 08:24 Dose: 25 mg Documented By: JEFF Ferrous Sulfate (Ferrous Sulfate 324 Mg Tablet.) 324 mg PO DAILY [facility] Last Admin: 03/03/24 08:24 Dose: 324 mg Documented By: JEFF Finasteride (Finasteride 5 Mg Tablet) 5 mg PO DAILY [facility] Last Admin: 03/03/24 08:24 Dose: 5 mg Documented By: JEFF Gabapentin (Gabapentin 100 Mg Capsule) 100 mg PO TID PRN PRN Reason: NEUROPATHY Last Admin: 03/03/24 00:08 Dose: 100 mg Documented By: REGIS Glucose (Glucose Gel 15 Gm Gel..Gram.) 15 gm PO Q15M PRN; Protocol PRN Reason: per Hypoglycemia Standing Ord. Dextrose (D10) 250 mls @ 750 mls/hr IV Q15M PRN; Protocol PRN Reason: per Hypoglycemia Standing Ord. Piperacillin Sod/Tazobactam (Sod 3.375 gm/ Sodium Chloride) 50 mls @ 100 mls/hr IV Q6H [facility] Last Infusion: 03/03/24 06:38 Dose: Infused Documented By: REID Vancomycin HCl 1,250 mg/ (Sodium Chloride) 250 mls @ 166.667 mls/hr IV Q24H [facility] Last Infusion: 03/02/24 15:20 Dose: Infused Documented By: PETEY Insulin Glargine (Insulin Glargine,Hum.Rec.Anlog 100 Unit/Ml 10 Ml Vial) 15 unit SUBCUT BID [facility] Last Admin: 03/03/24 08:22 Dose: 15 unit Documented By: JEFF Insulin Human Lispro (Insulin Lispro 100 Unit/Ml 3 Ml Vial) 0 unit SUBCUT QIDACHS [facility]; Protocol Last Admin: 03/03/24 08:21 Dose: 2 unit Documented By: JEFF Insulin Human Lispro (Insulin Lispro 100 Unit/Ml 3 Ml Vial) 5 unit SUBCUT TIDAC [facility] Last Admin: 03/03/24 08:23 Dose: Not Given Documented By: JEFF Non-Admin Reason: BS159 Magnesium Hydroxide (Milk Of Magnesia 30 Ml Oral.Susp) 30 ml PO DAILY PRN PRN Reason: Constipation Magnesium Oxide (Magnesium Oxide 400 Mg Tablet) 400 mg PO BID@0900,1700 [facility] Last Admin: 03/03/24 08:23 Dose: 400 mg Documented By: JEFF Melatonin (Melatonin 3 Mg Tablet) 6 mg PO BEDTIME PRN PRN Reason: Insomnia Metoprolol Tartrate (Metoprolol Tartrate 12.5 Mg Halftab) 12.5 mg PO BID [facility]; Protocol Last Admin: 03/03/24 08:23 Dose: 12.5 mg Documented By: JEFF Midodrine (Midodrine Hcl 10 Mg Tablet) 10 mg PO BID@0900,1700 [facility] Last Admin: 03/03/24 08:23 Dose: 10 mg Documented By: JEFF Morphine Sulfate (Morphine Sulfate 4 Mg/Ml Cartridge) 2 mg IVPUSH Q6H PRN; Protocol PRN Reason: Pain, Severe (Pain Scale 7-10) Omeprazole (Omeprazole 20 Mg Capsule.Dr) 20 mg PO DAILY@0630 [facility] Last Admin: 03/03/24 05:30 Dose: 20 mg Documented By: REGIS Ondansetron HCl (Ondansetron Hcl 4 Mg/2 Ml Vial) 4 mg IVPUSH Q8H PRN PRN Reason: Nausea and Vomiting Pharmacy Consult (Consult Rx Vancomycin Dosing) 1 each MISCELLANE DAILY PRN PRN Reason: Consult order Polyethylene Glycol (Polyethylene Glycol 3350 17 Gm Powd.Pack) 17 gm PO DAILY PRN PRN Reason: Constipation Last Admin: 03/02/24 18:16 Dose: 17 gm Documented By: PETEY Sodium Chloride (0.9 % Sodium Chloride Flush 3 Ml Syringe) 3 ml IVFLUSH QSHIFT [facility] Last Admin: 03/03/24 08:25 Dose: 3 ml Documented By: JEFF Vitamin D (Cholecalciferol (Vitamin D3) 25 Mcg Tablet) 25 mcg PO DAILY [facility] Last Admin: 03/03/24 08:24 Dose: 25 mcg Documented By: JEFF Labs 03/02/24 05:52 03/03/24 05:48 Labs: Laboratory Results - last 24 hr 03/02/24 03/02/24 03/02/24 10:58 17:00 20:46 Hold Purple Top Estim Creat Clear Calc Estimated GFR POC Glucose 178 H 161 H 218 H 03/03/24 03/03/24 05:48 07:07 Hold Purple Top SEE NOTE Estim Creat Clear Calc 54.9 Estimated GFR 46 POC Glucose 159 H Microbiology Microbiology Results: Microbiology 03/01/24 10:53 Blood Culture - Preliminary Blood - Venous No growth after 24 hours. 03/01/24 10:37 Blood Culture - Preliminary Blood - Venous No growth after 24 hours. Assessment and Plan (1) Cellulitis of right leg: Status: Acute Plan 73 year old male with CKD3, insulin dependent diabetes, h/o of left great toe osteomylitis (OM) who was seen in the ED on 02/25 with right ankle area cellulitis and was prescribed oral Doxycyline and returns due to worsening of the cellulitis Right ankle area Cellulitis, failed outpatient oral Abx, associated with high CRP and ESR, no OM on MR -Continue Zosyn and Vanco started 03/01 -ID consult pending -Blood cultures negative CKD 3--stable, adjust meds renally Insulin dependent diabetes--takes Lantus 20 bid, Humalog 15 in am, 12 at noon and 11 at dinner type. -Adjusted Lantus to 15 bid, humalog 5 tid, SSI. His Dexcom is reading aproximately 40 points less than hospital machines h/o DVT--continue Eliquis HLD--statin GERD--PPI BPH--Finesteride HTN, controlled continue metoprolol DVT prophylaxis--Eliquis Full code need for inpatient: IV antibiotics for cellulitis that failied outpatient Abx, and at risk for sepsis and OM Quality Stroke Does the patient have a stroke diagnosis?: No VTE Prior VTE?: Yes VTE Risk Level:: Medical - moderate - high VTE Device Contraindication: Treatment Not Indicated VTE Drug Contraindication: N/A - Med Ordered
[2024-03-03 11:10] LABS: Glucose, Whole Blood 158 mg/dL (60-115)
[2024-03-03 11:36] LABS: Vancomycin Random 10.3 mcg/mL (15-20)
--- NOTE | 2024-03-03 12:01 | HE.PHANOTE ---
RE [facility] Patients level came back this mornign at 10.3. Will continue with 1500 mg Q24H, dose increased. Next level 03/04 @1100 to ensure safety vs efficacy
[2024-03-03] MEDS: vancomycin HCL 1,500 MG in 0.9 % Sodium Chloride 500 ML 333.33 MG IV (12:53)
[2024-03-03 15:29] VITALS: BP 140/63; PULSE 68; RESP 18; TEMP 36; O2SAT 97
[2024-03-03 16:26] LABS: Glucose, Whole Blood 142 mg/dL (60-115)
[2024-03-03 19:21] VITALS: BP 140/62; PULSE 68; RESP 18; TEMP 36.4; O2SAT 94
[2024-03-03 20:15] LABS: Glucose, Whole Blood 194 mg/dL (60-115)
[2024-03-03] MEDS: Doxazosin Mesylate 2 MG TABLET 4 MG PO (20:37)
[2024-03-03] MEDS: Atorvastatin Calcium 80 MG TABLET PO (20:37)
[2024-03-03 21:37] VITALS: RESP 18
[2024-03-04 03:19] VITALS: BP 133/59; PULSE 62; RESP 18; TEMP 36.3; O2SAT 94
[2024-03-04] MEDS: Omeprazole 20 MG CAPSULE.DR PO (05:33)
[2024-03-04] MEDS: Piperacillin Sodium/Tazobactam 3.375 GM in 0.9 % Sodium Chloride 50 ML IV ×2 (05:33→12:05)
[2024-03-04 06:38] LABS: Creatinine Clr Calc Pharmacy 58.4; Estimated Glomerular Filt Rate 49
--- NOTE | 2024-03-04 07:37 | PM.DS ---
DS: Providers Provider Date of Service: 03/04/24 Date of admission: 03/01/24 12:36 Primary care physician: Manan Reinoso MD Consults: 03/01/24 12:33 Consult to Infectious Diseases Routine Consulting Provider: [facility] [place] [facility] Reason for consultation: cellulitis of left ankle, high CRP and ESR Has provider been notified: No DS: Diagnosis Discharge Diagnosis (1) Cellulitis of right leg: Status: Acute DS: Summary Hospital Course Hospital Course: [facility] Complaint: Left lower leg cellulitis A 73-year-old male with chronic kidney disease stage 3, insulin-dependent diabetes, h/o dvt, CVA and a history of osteomyelitis of the left great toe, presented to the emergency department (ED) on 02/25 with cellulitis in the ankle area. He was prescribed oral doxycycline and advised to return if the condition did not improve. The redness has since enlarged, prompting him to return to the ED. Below are before and after pictures for reference. see pic in h and p The pictures show worsening of the condition over the past 4 days, with the redness extending from the ankle to the lower leg. The patient reports no fever. There is mild leukocytosis with a WBC count of 11, while CRP (21) and ESR (67) levels are elevated. In the ED, he has been prescribed Zosyn. hospital course: He presented with left lower leg and ankle cellulitis that worsened with oral doxycyline. WBC increased, ESR and CRP were elevated. He was treated with vAnco and Zosyn while in the hospital with improvment. MRI of the area showed no osteomylitis. ID recommend changing to oral Doxycyline for a week. Time Attestation Discharge Coordination Time (in mins): 35 Quality: Safe Use of Opioids Does Pt have an Active Cancer Diagnosis on the Problem List?: No Quality: Stroke Does the patient have a stroke diagnosis?: No Physical Exam Vital Signs: Vital Signs: Last Vital Signs Temp 97.3 F 03/04/24 03:19 Pulse 62 03/04/24 03:19 Resp 18 03/04/24 03:19 BP 133/59 L 03/04/24 03:19 Pulse Ox 94 03/04/24 03:19 O2 Del Method Room Air 03/04/24 03:19 BMI result Body Mass Index 38.1 DS: Data Data Completed and Pending Labs on day of discharge: Laboratory Results - last 24 hr 03/03/24 03/03/24 03/03/24 11:06 16:19 19:57 Creatinine Estim Creat Clear Calc Estimated GFR POC Glucose 158 H 142 H 194 H Random Vancomycin 10.3 L 03/04/24 05:55 Creatinine 1.42 H Estim Creat Clear Calc 58.4 Estimated GFR 49 POC Glucose Random Vancomycin Preliminary micro results at discharge 03/01/24 10:53 Blood Culture - Preliminary Blood - Venous No growth after 48 hours. 03/01/24 10:37 Blood Culture - Preliminary Blood - Venous No growth after 48 hours. Discharge Plan Discharge Anticipated Discharge Date/Time: 03/04/24 07:40 Patient Disposition: Home, Self-Care Discharge Diagnosis: Cellulitis of right lower leg and ankle Referrals: Manan Reinoso MD [Primary Care Provider] - 1 Week Discharge Medications: New amoxicillin-pot clavulanate 875-125 mg Tablet 1 tab PO Q12H Qty: 13 0RF Continued doxycycline hyclate 100 mg tablet 100 mg PO BID 7 Days Qty: 14 0RF Rx Instructions: END DATE: 03/04/24 polyethylene glycol 3350 17 gram powder in packet 17 g PO DAILY PRN (Reason: Constipation) diphenoxylate-atropine 2.5-0.025 mg tablet 2 tab PO TID PRN (Reason: Diarrhea) hydrocodone-acetaminophen 5-300 mg tablet 1 tab PO BID PRN (Reason: Pain) insulin aspart U-100 [Novolog U-100 Insulin aspart] 100 unit/mL Solution 12 unit SUBCUT DAILY@1200 insulin aspart U-100 [Novolog U-100 Insulin aspart] 100 unit/mL Solution 11 unit SUBCUT DAILY@1700 cyanocobalamin (vitamin B-12) 500 mcg Tablet 500 mcg PO DAILY cholecalciferol (vitamin D3) [Vitamin D3] 25 mcg (1,000 unit) Tablet 25 mcg PO DAILY finasteride 5 mg tablet 5 mg PO DAILY apixaban 5 mg tablet 5 mg PO BID metoprolol tartrate 25 mg tablet 12.5 mg PO BID pantoprazole 40 mg tablet,delayed release (DR/EC) 40 mg PO DAILY@0630 Jardiance 25 mg tablet 25 mg PO DAILY gabapentin 100 mg capsule 100 mg PO TID PRN (Reason: NEUROPATHY) magnesium oxide 400 mg (241.3 mg magnesium) tablet 400 mg PO BID@0900,1700 rosuvastatin 40 mg tablet 40 mg PO BEDTIME midodrine 10 mg tablet 10 mg PO BID@0900,1700 (DME) pen needle, diabetic [Easy Touch] 31 gauge x 3/16 needle See Rx Instructions .ROUTE .MEDSUPPLY Qty: 50 Rx Instructions: As directed ferrous sulfate [FeroSul] 325 mg (65 mg iron) tablet 325 mg PO DAILY insulin glargine [Lantus Solostar U-100 Insulin] 100 unit/mL (3 mL) insulin pen 20 unit subcut BID insulin aspart U-100 [Novolog U-100 Insulin aspart] 100 unit/mL solution 15 unit subcut DAILY@0800 terazosin 5 mg capsule 5 mg PO BEDTIME 90 Days Qty: 90 3RF tadalafil 5 mg tablet 5 mg PO DAILY 90 Days Qty: 90 3RF Discharge Orders: Discharge Order (Routine); Ordered 03/04/24 Ordered By: Leeroy Doe Diet: Advance to usual diet Activity on Discharge: As tolerated Stand Alone Forms: Patient Portal Discharge page Print Language: Bulgarian Care Plan Goals: resolution of the cellulitis and return to full functioning of the leg Health Concerns: cellulitis of the right lower leg and ankle area Plan of Treatment: take Doxycyline and Augmentin as recomended and follow up with your Doctor in a week, call for appointment Please use a regular glucometer to check your sugars as Dexcom has been reading much lower than hospital meters. Please have you Dexom recalibrated Assessment: see Discharge Date/Time: 03/04/24 14:43
[2024-03-04 07:38] VITALS: BP 142/65; PULSE 70; RESP 18; TEMP 36.1; O2SAT 96
[2024-03-04 07:44] LABS: Glucose, Whole Blood 131 mg/dL (60-115)
[2024-03-04 07:53] LABS: Anion Gap 14 (12-20); Carbon Dioxide 21 mmol/L (22-29); Chloride 108 mmol/L (96-108); Potassium 4.4 mmol/L (3.3-5.1); Sodium 139 mmol/L (135-145)
[2024-03-04] MEDS: Cholecalciferol (Vitamin D3) 25 MCG TABLET PO (08:14)
[2024-03-04] MEDS: Metoprolol Tartrate 12.5 MG HALFTAB PO (08:14)
[2024-03-04] MEDS: Empagliflozin 25 MG TABLET PO (08:14)
[2024-03-04] MEDS: Midodrine HCl 10 MG TABLET PO (08:14)
[2024-03-04] MEDS: Apixaban 5 MG TABLET PO (08:14)
[2024-03-04] MEDS: Insulin Glargine,Hum.rec.anlog 100 UNIT/ML 10 ML VIAL 15 UNIT SUBCUT (08:14)
[2024-03-04] MEDS: Ferrous Sulfate 324 MG TABLET.DR PO (08:14)
[2024-03-04] MEDS: Magnesium Oxide 400 MG TABLET PO (08:14)
[2024-03-04] MEDS: Finasteride 5 MG TABLET PO (08:14)
[2024-03-04] MEDS: Cyanocobalamin (Vitamin B-12) 500 MCG TABLET PO (08:14)
[2024-03-04] MEDS: 0.9 % Sodium Chloride Flush 3 ML SYRINGE IVFLUSH (08:15)
[2024-03-04] MEDS: Gabapentin 100 MG CAPSULE PO (08:22)
[2024-03-04 11:32] LABS: Glucose, Whole Blood 235 mg/dL (60-115)
[2024-03-04 11:52] LABS: Vancomycin Random 11.1 mcg/mL (15-20)
--- NOTE | 2024-03-04 12:02 | HE.PHANOTE ---
RE: VANCO DOSING Random came back as 07.17, continue with dose of 1500 mg q24h, next random is scheduled for 03/05 @1100.
[2024-03-04] MEDS: Insulin Lispro 100 UNIT/ML 3 ML VIAL SUBCUT ×2 (12:05)
--- NOTE | 2024-03-04 13:16 | MHC.CM.PN ---
Pt is medically cleared for discharge home self-care, pts family to transport him home.
[2024-03-04] MEDS: Amoxicillin/Potassium Clav 875 MG TABLET PO (13:21)
[2024-03-04] MEDS: Doxycycline Monohydrate 100 MG CAPSULE PO (13:21)
--- NOTE | 2024-03-09 07:01 | P.CDIM_ITS ---
PROVIDER RESPONSE TEXT: To clarify, the appropriate diagnosis supported by the clinical indicators: Yes, right ankle cellulitis is related to / associated with / due to IDDM QUERY TEXT: PHYSICIAN'S DOCUMENTATION REQUEST Date of Query: 03/03/2024 08:47 AM EDT Patient Name: Kirby Christianson Admit Date: 03/01/2024 Dear Leeroy Doe, A review of the medical record indicates additional documentation may be needed. Please review below and update the documentation accordingly. Documentation includes the conditions of right ankle area cellulitis and Insulin dependent Diabetes eli pace. Clinical Indicators: Per Hospitalist Progress Note 03/02/24: Cellulitis treated with IV Zosyn and Vancomycin IDDM treated with Insulin and diabetic diet Please clarify the relationship between these conditions: Yes, right ankle cellulitis is related to / associated with / due to IDDM No, right ankle cellulitis is not related to / associated with / due to IDDM Other (explain) Clinically unable to determine (explain) Thank you, Anabell Maya RN Use of terms such as suspected, likely, concern for, or probable (associated with a specific diagnosi s that is being evaluated, monitored, or treated as if it exists) are acceptable and can be coded in the inpatient se tting, when documented at the time of discharge. Please use your independent medical judgment in providing your response. THIS QUERY IS PART OF THE PERMANENT MEDICAL RECORD
== END 2024-03-04 14:43 | disposition home or self-care (01) | DRG 638 ==
LOC: HO.ED 12:23 → HO.EDOVER 13:04 → HO.S3 13:27
PROVIDERS: Physician Assistant; Admitting Provider Internal Medicine; Emergency Provider Emergency Medicine Emergency Medical Services; PCP Internal Medicine; Visit Provider Internal Medicine
DX: E11.628 Type 2 diabetes mellitus with other skin complications (principal); L03.115 Cellulitis of right lower limb; I12.9 Hypertensive chronic kidney disease with stage 1 through stage 4 chronic kidney disease, or unspecified chronic kidney disease; N40.0 Benign prostatic hyperplasia without lower urinary tract symptoms; K21.9 Gastro-esophageal reflux disease without esophagitis; E78.5 Hyperlipidemia, unspecified; N18.30 Chronic kidney disease, stage 3 unspecified; E11.22 Type 2 diabetes mellitus with diabetic chronic kidney disease; Z86.73 Personal history of transient ischemic attack (TIA), and cerebral infarction without residual deficits; Z86.718 Personal history of other venous thrombosis and embolism; Z79.01 Long term (current) use of anticoagulants; Z79.4 Long term (current) use of insulin; Z79.899 Other long term (current) drug therapy
CPT/HCPCS: 36415; 73723; 80048; 80051; 80053; 80202; 82565; 82947; 83605; 85025; 85652; 86140; 87040; 93971; 99285; A9585; J2543; J3370; J3371

== ENCOUNTER → 2024-03-01 12:36 | Outpatient (BNV) | payer MEDICARE, MEDICAID, SELFPAY | PROVIDERS: Admitting Provider Internal Medicine; Emergency Provider Emergency Medicine Emergency Medical Services; PCP Internal Medicine; Visit Provider Internal Medicine | DX: L03.115 Cellulitis of right lower limb (principal) | CPT/HCPCS: 99222 ==

== ENCOUNTER → 2024-03-01 12:36 | Outpatient (BNV) | payer MEDICARE, MEDICAID, SELFPAY | PROVIDERS: Admitting Provider Internal Medicine; Emergency Provider Emergency Medicine Emergency Medical Services; PCP Internal Medicine; Visit Provider Internal Medicine | DX: L03.115 Cellulitis of right lower limb (principal) | CPT/HCPCS: 99223; 99232; 99239 ==

== ENCOUNTER 2024-03-09 08:47 | Outpatient (REF) | payer MEDICARE, MEDICAID, SELFPAY ==
[2024-03-09 13:14] LABS: Prostate Specific Antigen 2.53 ng/mL (<0.05-4.0)
== END 2024-03-09 08:48 | disposition home or self-care (01) ==
LOC: HO.HMGCLDS 08:47
PROVIDERS: PCP Internal Medicine; Visit Provider Nurse Practitioner Family
DX: R97.20 Elevated prostate specific antigen [PSA] (principal); Z12.5 Encounter for screening for malignant neoplasm of prostate
CPT/HCPCS: 36415; 84153

== ENCOUNTER 2024-03-11 15:49 | Outpatient (AMB) | payer MEDICARE, MEDICAID, SELFPAY ==
--- NOTE | 2024-03-11 15:49 | A.OFFVIS_ITS ---
Intake Visit Reasons: 6 months f/up/PVR Intake Note: Patient is present for follow up BPH/Nocturia Urology Medications: tadalafil, terazosin, finasteride Blood Thinner: Apixaban PVR: 55ml's [employer] Messenger Required: No Accompanied by: Spouse Allergies almond [ALMONDS] Allergy (Severe, Verified 03/11/24 16:20) THROAT CLOSES pecan nut [PECAN] Allergy (Severe, Verified 03/11/24 16:20) THROAT CLOSES Medication List - Last Reconciled 03/11/24 by NAKITA Ortiz- amoxicillin-pot clavulanate 875-125 mg 1 tab PO Q12H apixaban 5 mg PO BID cholecalciferol (vitamin D3) (Vitamin D3) 25 mcg PO DAILY cyanocobalamin (vitamin B-12) 500 mcg PO DAILY diphenoxylate-atropine 2.5-0.025 mg 2 tabs PO TID PRN doxycycline hyclate 100 mg PO BID 7 days empagliflozin (Jardiance) 25 mg PO DAILY ferrous sulfate (FeroSul) 325 mg PO DAILY finasteride 5 mg PO DAILY gabapentin 100 mg PO TID PRN hydrocodone-acetaminophen 5-300 mg 1 tab PO BID PRN insulin aspart U-100 (Novolog U-100 Insulin aspart) 12 units subcut DAILY@1200 insulin aspart U-100 (Novolog U-100 Insulin aspart) 11 units subcut DAILY@1700 insulin aspart U-100 (Novolog U-100 Insulin aspart) 15 units subcut DAILY@0800 insulin glargine (Lantus Solostar U-100 Insulin) 20 units subcut BID magnesium oxide 400 mg PO BID@0900,1700 metoprolol tartrate 12.5 mg PO BID midodrine 10 mg PO BID@0900,1700 pantoprazole 40 mg PO DAILY@0630 pen needle, diabetic (Easy Touch) As directed polyethylene glycol 3350 17 grams PO DAILY PRN rosuvastatin 40 mg PO BEDTIME tadalafil (Cialis) 10 mg PO .PRN PRN 90 days tadalafil 5 mg PO DAILY 90 days terazosin 5 mg PO BEDTIME 90 days HPI Comments Details: Kirby is a very pleasant 73 year old male patient of Dr. Reinoso who is accompanied by his at today's visit. He has a past medical history of BPH, CVA, DVT, enlarged prostate with LUTS, ED, frequency urgency syndrome, history of elevated PSA, and osteomyelitis. He presents to the office today for follow- up of his lower urinary tract symptoms, erectile dysfunction associated with diabetes, and elevated PSA. When asked patient reports to be doing and feeling well. He discusses his recent hospitalization stay approximately 1-2 weeks ago for right-sided lower extremity cellulitis. He reports to be following up with wound care and is on p.o. antibiotics. When asked he currently denies any bothersome urinary issues or concerns. Reports to be doing well on terazosin 5 mg daily, tadalafil 5md daily, and Finasteride 5mg daily. He reports to be happy with current voiding parameters. He otherwise denies urinary urgency, urinary frequency, incontinence, hematuria, dysuria, foul smelling urine, changes to urinary stream, flank pain, fever, and or chills. He reports noting himself to have morning erections 5mg of Cialis daily however does not feel they are adequate for penetrations. Discussed at length patients comorbidities in relation to erectile dysfunction. Discussed lifestyle modifications to assist with ED. He otherwise offers no issues or concerns at this time. In office urinalysis results reviewed with the patient today. PVR 55 mL. PSA 03/09 2.5 PREVIOUS OFFICE NOTE Lower urinary tract symptoms with elevated PSA Followed for BPH symptoms Prior medication includes doxazosin which he ceased secondary to blood pressure issues - had been on Myrbetriq but had recurrent stroke with high residual - prior laser prostatectomy Baseline suffered stroke in February 2020 PSA - May 2019 3.0 - May 2020 4.7, 10/06 2.9 -August 2023--1.2 -February 2024 2.5 Office cystoscopy - 09/06 right lateral prostatic regrowth Prostatic regrowth source of microscopic hematuria Good response to combination finasteride and tadalafil with urinary control Therapeutic plan - continue with medication and PSA surveillance Erectile dysfunction diabetic Good response to daily tadalafil [facility] Medical History (Updated 03/12/24 @ 07:35 by ANGEL Ortiz) Osteomyelitis CVA (cerebral vascular accident) DVT (deep venous thrombosis) BPH (benign prostatic hyperplasia) Frequency-urgency syndrome Subacute osteomyelitis of right foot Enlarged prostate without lower urinary tract symptoms (luts) History of elevated PSA Surgical History History of surgery Social History Household Members: Significant Other and Family Housing: House Do you presently have visiting nurse or other home services: No Alcohol intake: never Patient Tobacco Use Status: Never used Tobacco Second Hand Smoke Exposure: No service: Yes Review of Systems Const Reports as per HPI Eyes Reports no additional complaints ENT Reports no additional complaints Card Reports as per HPI Resp Reports no additional complaints GI Reports no additional complaints Reports as per HPI Musc Reports as per HPI Neuro Reports as per HPI Psych Reports as per HPI Endo Reports as per HPI Physical Exam Const General: cooperative, comfortable, no acute distress, well developed, alert and awake Nutritional Appearance: overweight Orientation/consciousness: patient oriented x3 Limitations: ambulation with walker HEENT Head: Yes normal to inspection, Yes normocephalic and Yes atraumatic Ears: hearing grossly normal bilaterally Eyes General: appearance normal, both eyes and all related structures Neck Neck: Yes normal visual inspection and Yes trachea midline Chest Chest palpation & inspection: normal inspection of the chest Resp Effort & Inspection: normal respiratory effort and able to speak in complete sentences Cardio Rate: regular rate GI Inspection: Yes normal to inspection General: Yes no CVA tenderness Back/Spine/Pelvis Back: no CVA tenderness Skin Other: as per HPI; right sided lower leg cellulitis. Open areas to the right lateral aspect of the leg. Neuro General: patient oriented x3 Extrem General: Yes normal to inspection Psych Appearance: grossly normal and well kempt Mental Status: mental status grossly normal Speech and movement: Normal speech and movement present and Clear speech present Affect: normal affect Attitude: cooperative Thought process: Normal thought process present Thought content: Normal thought content present Insight: Fair insight present (Psych) Judgement: Fair judgement present (Psych) Office Procedures Post Void Residual Post Residual Void Post Void Residual (PVR): 55 [id number] Void Residual by ultrasound Results AMB Urinalysis, Automated UA Leukoctes 0 Isac/uL Last Edit by Wilda Michael on 03/11/24 16:08 UA Nitrite Negative Last Edit by Wilda Michael on 03/11/24 16:08 UA Urobilinogen 0.2 mg/dL Last Edit by Draganyce Bress on 03/11/24 16:08 UA Protein 30 mg/dL Last Edit by Brandyce Andriass on 03/11/24 16:08 UA pH 5.5 Last Edit by Brandyce Andriass on 03/11/24 16:08 UA Blood 10 Roshan/uL Last Edit by Draganyce Fernanda on 03/11/24 16:08 UA Specific [place] 1.105 Last Edit by Brandyce Fernanda on 03/11/24 16:08 UA Ketone Negative Last Edit by Michellee Fernanda on 03/11/24 16:08 UA Bilirubin 0 mg/dL Last Edit by Michellee Fernanda on 03/11/24 16:08 UA Glucose 1000 mg/dL Last Edit by Wilda Michael on 03/11/24 16:08 Results Reviewed Results Reviewed: Laboratory Last Values Urine pH (Auto) 5.5 03/11/24 16:05 Specific [place] (Auto) 1.105 03/11/24 16:05 Urine Protein (Auto) 30 mg/dL 03/11/24 16:05 Glucose (UA)(Auto) 1000 mg/dL 03/11/24 16:05 Urine Ketones (Auto) Negative 03/11/24 16:05 Urine Blood (Auto) 10 [place]/uL 03/11/24 16:05 Urine Nitrite (Auto) Negative 03/11/24 16:05 Urine Bilirubin (Auto) 0 mg/dL 03/11/24 16:05 Urine Urobilinogen (Auto) 0.2 mg/dL 03/11/24 16:05 Leukocyte Esterase (Auto) 0 Isac/uL 03/11/24 16:05 Assessment & Plan Assessment & Plan (1) Erectile dysfunction: Code(s): N52.9 - Male erectile dysfunction, unspecified Category: Medical (2) Urinary urgency: Code(s): R39.15 - Urgency of urination Category: Medical (3) Nocturia more than twice per night: Code(s): R35.1 - Nocturia Category: Medical (4) BPH w urinary obs/LUTS: Code(s): N40.1 - Benign prostatic hyperplasia with lower urinary tract symptoms; N13.8 - Other obstructive and reflux uropathy Category: Medical (5) Erectile dysfunction associated with type 2 diabetes mellitus: Code(s): E11.69 - Type 2 diabetes mellitus with other specified complication; N52.1 - Erectile dysfunction due to diseases classified elsewhere Category: Medical Plan In office urinalysis results reviewed with the patient today; as noted above. PVR 55 mL. Recent PSA results reviewed with the patient today; discussed slight increase Continue Cialis, finasteride, and terazosin as discussed and prescribed; refills provided. Prescription provided for p.r.n./on demand Cialis. Discussed lifestyle modifications to assist with erectile dysfunction. Patient currently denies any bothersome urinary issues or concerns. He reports be happy with current voiding parameters. Will obtain redraw of PSA in 4 months. Follow-up in 4 months with lab to be completed prior and PVR at next office visit; or sooner with any issues, concerns, and or questions. Orders: Orders AMB Urinalysis Automated 03/11/24 Z13.9 - Encounter for screening, unspecified AMB Post Void Residual by ultrasound 03/11/24 R39.15 - Urgency of urination Prostate Specific Antigen 4 Months R97.20 - Elevated prostate specific antigen [PSA] Medications: New tadalafil (Cialis) take 1-2 tablets; administer approximately 30min before sexual activity. Do not use more than 2-3 times per week [id number] [facility] [id number] Member [id number] 10 mg PO .PRN 90 days PRN 30 tabs 2RF sexual activity Patient Instructions: The patient had an opportunity to ask questions regarding the treatment plan. All questions were answered. Physical exam, labs, and imaging were discussed and reviewed in detail. As well as risks, benefits, and discussion of treatment choices. No major barriers to understanding were identified. The patient expressed understanding and agreement with the above treatment plan. The patient was made aware they should contact our office by phone for worsening of their current condition, the appearance of new symptoms, or with any questions or concerns. Compliance is encouraged with any medications and follow up testing that is ordered. It is a privilege to be allowed the opportunity to participate in? your urological care.? Again, if you have any questions or concerns If you have any questions or concerns please do not hesitate to contact me. The office is [phone]. This note is constructed using voice recognition software. While every effort has been made to ensure accuracy kitchen worker errors may have been included. Yours sincerely, NAKITA Ortiz-AKPIL Coding Level of Care Code Est Pt Level 4 (80088) Diagnoses Erectile dysfunction N52.9 Urinary urgency R39.15 Nocturia more than twice per night R35.1 BPH w urinary obs/LUTS N40.1; N13.8 Erectile dysfunction associated with type 2 diabetes mellitus E11.69; N52.1 CPT Codes Post Residual Void - PVR CPT Code: 11633-Ojrd Void Residual by ultrasound ([id number])
== END 2024-03-11 16:16 | disposition home or self-care (01) ==
LOC: HO.HUSH 15:49
PROVIDERS: PCP Internal Medicine; Visit Provider Nurse Practitioner Family
DX: N52.9 Male erectile dysfunction, unspecified (principal); N40.1 Benign prostatic hyperplasia with lower urinary tract symptoms; R39.15 Urgency of urination; R35.1 Nocturia; N13.8 Other obstructive and reflux uropathy; E11.69 Type 2 diabetes mellitus with other specified complication; N52.1 Erectile dysfunction due to diseases classified elsewhere
CPT/HCPCS: 99214

== ENCOUNTER → 2024-03-11 15:49 | Outpatient (BNVA) | payer MEDICARE, MEDICAID, SELFPAY | PROVIDERS: PCP Internal Medicine; Visit Provider Nurse Practitioner Family | DX: N40.1 Benign prostatic hyperplasia with lower urinary tract symptoms (principal); N13.8 Other obstructive and reflux uropathy; E11.69 Type 2 diabetes mellitus with other specified complication; N52.1 Erectile dysfunction due to diseases classified elsewhere; R35.1 Nocturia; R39.15 Urgency of urination; R97.20 Elevated prostate specific antigen [PSA] | CPT/HCPCS: 51798; 81003; 99212 ==

== ENCOUNTER 2024-04-05 09:27 | Inpatient (IN) | payer MEDICARE, MEDICAID, SELFPAY ==
--- NOTE | ~2024-04-05 | US_ITS ---
EXAMINATION: US VENOUS ULTRASOUND WITH DOPPLER LOWER EXTREMITY, RIGHT CLINICAL INFORMATION: Edema, swelling. COMPARISON: Right lower extremity ultrasound 03/01/2024. TECHNIQUE: Ultrasound of the deep veins is performed from the hip to the calf with compression sonography and color and pulse Doppler assessment. Spectral analysis with color-flow imaging is performed. FINDINGS: There is normal venous compression and respiratory variation and augmented flow. The visualized right common femoral vein, superficial femoral vein, profunda femoral vein, popliteal vein, and the trifurcation region shows no evidence of deep venous thrombosis. There is no significant popliteal fossa cyst. Enlarged but nonaggressive-appearing right inguinal lymph node with preserved fatty hilum, normal cortex and smooth margins measuring 4 x 0.8 x 3.4 cm, most likely reactive in nature. US/US venous duplex LE RT IMPRESSION: No DVT demonstrated in the right lower extremity. If the patient's symptoms persist, followup ultrasound in 5 days 7 days might be of value to exclude proximal propagation from a non-visualized calf vein.
--- NOTE | ~2024-04-05 | US_ITS ---
EXAMINATION: Ultrasound extremity, right CLINICAL INFORMATION: Lower right leg cellulitis/swelling COMPARISON: None available. TECHNIQUE: Linear grayscale and color Doppler imaging of the region of clinical concern in the right lower leg/ankle. FINDINGS: Targeted ultrasound in the region of clinical concern shows overlying skin thickening with a heterogeneous somewhat ill-defined fluid collection in the subcutaneous tissues measuring approximately 2.9 x 0.6 x 3.7 cm. US/US extremity nonvascular santa IMPRESSION: Heterogeneous somewhat ill-defined fluid collection in the subcutaneous tissues in the region of clinical concern measuring 2.9 x 0.6 x 3.7 cm. Differential considerations would include abscess, hematoma or other fluid collection.
--- NOTE | ~2024-04-05 | CT_ITS ---
EXAMINATION: CT LOWER EXTREMITY, WITHOUT CONTRAST, RIGHT LOWER CLINICAL INFORMATION: Cellulitis. COMPARISON: None available. TECHNIQUE: A noncontrast CT of the right lower leg is performed with sagittal and coronal reformats. This CT examination was performed using dose optimization techniques as appropriate, variously including the following: *Automated exposure control *Adjustment of mA and/or kV according to patient size (this includes techniques or standardized protocols for targeted exams where dose is matched to indication/reason for exam; i.e. extremities or head) *Use of iterative reconstruction technique Dose Length Product: 348 mGy-cm FINDINGS: There is an ill-defined subcutaneous fluid collection at the lateral aspect of the distal lower leg measuring approximately 3.7 x 1.1 x 6.0 cm although absence of intravenous contrast limits assessment. There are foci of air within the collection presumably related to the aspiration procedure performed yesterday. A portion of this collection is contiguous with the peroneal longus muscle/tendon and likely communicates with the peroneal tendon sheath where there is prominent fluid extending beyond the ankle. No cortical erosion or periosteal reaction to suggest osteomyelitis. Diffuse vascular calcifications are noted. CT/CT lower leg RT wo IV con IMPRESSION: There is a subcutaneous fluid collection at the lateral aspect of the distal lower leg which is contiguous with the peroneal longus muscle/tendon and likely communicates with the peroneal tendon sheath where there is prominent fluid extending beyond the ankle. No cortical erosion or periosteal reaction to suggest osteomyelitis.
--- NOTE | ~2024-04-05 | US_ITS ---
Ultrasound-guided aspiration of right lower extremity soft tissue fluid collection INDICATION: Right lower extremity cellulitis. Complex fluid collection seen on diagnostic imaging. PROCEDURE: Informed consent was obtained from the patient prior to the procedure. During this process, the procedure and potential alternatives were explained, along with the intended outcome and benefits. The risks of the procedure, as well as the risks of not doing the procedure, were discussed. The patient was given the opportunity to ask questions regarding the procedure and appeared competent to make medical decisions. A signed consent form which documents this discussion was placed in the medical record. A timeout was performed in the room. The patient was placed in a supine position. The right leg/ankle prepped and draped in routine sterile fashion. 1% lidocaine was used as anesthetic. Under real-time ultrasound guidance, a 5 Turkish Yueh catheter/needle was placed into the complex soft tissue fluid collection. 5 mL of purulent/bloody fluid was aspirated. A sample was sent for culture. The needle and catheter was removed and a dry dressing was applied to the access site. The patient tolerated the procedure well with no immediate complications. Permanent ultrasound images were archived to the procedure. US/US drain soft tissue w imaging IMPRESSION: Ultrasound guided aspiration of right lower extremity soft tissue fluid collection yielding 4 mL of bloody/purulent fluid. This procedure was performed by Ricky Gordon PA-C, and directly supervised by Dr. Coles
[2024-04-05 09:36] VITALS: BP 117/62; PULSE 70; RESP 16; TEMP 36.8; O2SAT 94; BMI 34.2
[2024-04-05 10:01] VITALS: BP 108/48; PULSE 66; RESP 16; TEMP 36.9; O2SAT 95
--- NOTE | 2024-04-05 10:01 | ED.GENADULT ---
HPI - General Adult General Chief complaint: General Medical Stated complaint: leg swelling Time Seen by Provider: 04/05/24 09:41 Source: patient Mode of arrival: ambulatory Limitations: no limitations History of Present Illness HPI narrative: This is 73 years old male comes in complaining of redness swelling of the right lower extremity he has been on antibiotic for cellulitis of the right leg for the last 3 Days. Patient has history of DM DVT CVA BPH he is anticoagulated with apixaban.He was hospitalized February 06 for cellulitis rt leg. Onset (ago): day(s) (3) Location: lower extremity (rt leg) Severity: moderate Quality: burning Pain Consistency: constant Relieving factors: none Exacerbating factors: none Associated symptoms: denies other symptoms Related Data Home Medications ?Medication ?Instructions ?Recorded ?Confirmed apixaban 5 mg tablet 5 mg PO BID 08/05/20 03/01/24 metoprolol tartrate 25 mg tablet 12.5 mg PO BID 08/05/20 03/01/24 pantoprazole 40 mg tablet,delayed 40 mg PO DAILY@0630 08/05/20 03/01/24 release empagliflozin 25 mg tablet 25 mg PO DAILY 05/05/21 03/01/24 (Jardiance) gabapentin 100 mg capsule 100 mg PO TID PRN NEUROPATHY 05/05/21 03/01/24 magnesium oxide 400 mg (241.3 mg 400 mg PO BID@0900,1700 07/11/21 03/01/24 magnesium) tablet ferrous sulfate 325 mg (65 mg 325 mg PO DAILY 08/31/22 03/01/24 iron) tablet (FeroSul) midodrine 10 mg tablet 10 mg PO BID@0900,1700 08/31/22 03/01/24 pen needle, diabetic 31 gauge x #50 ea 08/31/22 03/01/2411/29 (Easy Touch) rosuvastatin 40 mg tablet 40 mg PO BEDTIME 08/31/22 03/01/24 insulin aspart U-100 100 unit/mL 15 unit subcut DAILY@0800 12/05/22 03/01/24 subcutaneous solution (Novolog U-100 Insulin aspart) insulin glargine 100 unit/mL (3 20 unit subcut BID 12/05/22 03/01/24 mL) subcutaneous pen (Lantus Solostar U-100 Insulin) cholecalciferol (vitamin D3) 25 25 mcg PO DAILY 03/01/24 03/01/24 mcg (1,000 unit) tablet (Vitamin D3) cyanocobalamin (vitamin B-12) 500 500 mcg PO DAILY 03/01/24 03/01/24 mcg tablet diphenoxylate-atropine 2.5 2 tab PO TID PRN Diarrhea 03/01/24 03/01/24 mg-0.025 mg tablet finasteride 5 mg tablet 5 mg PO DAILY 03/01/24 03/01/24 hydrocodone 5 mg-acetaminophen 300 1 tab PO BID PRN Pain 03/01/24 03/01/24 mg tablet insulin aspart U-100 100 unit/mL 11 unit subcut DAILY@1700 03/01/24 03/01/24 subcutaneous solution (Novolog U-100 Insulin aspart) insulin aspart U-100 100 unit/mL 12 unit subcut DAILY@1200 03/01/24 03/01/24 subcutaneous solution (Novolog U-100 Insulin aspart) polyethylene glycol 3350 17 gram 17 g PO DAILY PRN Constipation 03/01/24 03/01/24 oral powder packet Previous Rx's ?Medication ?Instructions ?Recorded tadalafil 5 mg tablet 5 mg PO DAILY sexual activity 90 09/11/23 days #90 tabs terazosin 5 mg capsule 5 mg PO BEDTIME 90 days #90 caps 09/11/23 doxycycline hyclate 100 mg tablet 100 mg PO BID 7 days #14 tabs 02/26/24 amoxicillin 875 mg-potassium 1 tab PO Q12H #13 tabs 03/04/24 clavulanate 125 mg tablet tadalafil 10 mg tablet (Cialis) 10 mg PO .PRN PRN sexual activity 03/11/24 90 days #30 tabs Allergies Allergy/AdvReac Type Severity Reaction Status Date / Time almond [ALMONDS] Allergy Severe THROAT Verified 04/05/24 09:36 CLOSES pecan nut [PECAN] Allergy Severe THROAT Verified 04/05/24 09:36 CLOSES Review of Systems Constitutional: Constitutional: Reports no additional constitutional complaints ENT: Reports system reviewed and no additional complaints, except as documented Cardiovascular: Cardiovascular: Reports no additional cardiovascular complaints Respiratory: Respiratory: Reports no additional respiratory complaints PMFSH Past Medical History Medical History Osteomyelitis CVA (cerebral vascular accident) DVT (deep venous thrombosis) BPH (benign prostatic hyperplasia) Frequency-urgency syndrome Subacute osteomyelitis of right foot Enlarged prostate without lower urinary tract symptoms (luts) History of elevated PSA Surgical History History of surgery Social History Social History Household Members: Significant Other and Family Housing: House Do you presently have visiting nurse or other home services: No Alcohol intake: never Patient Tobacco Use Status: Never used Tobacco Smoked in Last 30 Days: No Second Hand Smoke Exposure: No Use of substances other than those prescribed or required for medical reasons: No Advance Directives: No Advance Directives Information Provided: Yes Do you have a plan to hurt others: No Plan service: Yes Physical Exam ED Vital Signs: Vital Signs - 24 hr 04/05/24 09:36 04/05/24 10:01 04/05/24 10:43 Temperature 98.3 F 98.5 F Pulse Rate 70 66 96 Respiratory Rate 16 16 16 Blood Pressure 117/62 108/48 L 111/49 L Pulse Oximetry 94 95 65 L Oxygen Delivery Method Room Air Room Air Room Air BMI result Body Mass Index 34.2 Const General: cooperative Nutritional Appearance: well nourished Orientation/consciousness: patient oriented x3 HENMT Head: Yes normal to inspection Ears: hearing grossly normal bilaterally General nose exam: Normal external nose present Neck Neck: Yes normal visual inspection and Yes full ROM Chest Chest palpation & inspection: normal inspection of the chest Resp Effort & Inspection: normal respiratory effort Auscultation: clear to auscultation bilaterally Cardio Jugular venous distension: no JVD Palpation: normal PMI Rate: regular rate Rhythm: regular rhythm GI Inspection: Yes normal to inspection Palpation (GI): Soft to palpation Skin General skin exam: no rashes or lesions noted and elasticity normal Lesions: no lesions Rashes: no rashes Neuro General: patient oriented x3 Cranial nerves: Yes CN's II-XII intact bilaterally Extrem Other: Redness is willing of the right lower extremity see picture, pedal pulses present Course Reevaluation(s) Reevaluation #1: Ultrasound negative for DVT Time: 11:42 Medications Administered Generic Name Dose Route Start Last Admin Trade Name Freq PRN Reason Stop Dose Admin Vancomycin HCl 2,000 mg in 500 mls @ 250 mls/hr 04/05/24 10:30 04/05/24 10:43 Vancomycin/Ns IV 04/05/24 12:29 250 mls/hr ONCE ONE Administration Medical Decision Making Medical Decision Making [facility] Narrative: Patient presented with redness of the right leg the 3 on Keflex will get labs ultrasound reassessed Differential Diagnosis Differential Diagnoses: The differential diagnosis associated with the presentation includes DVT/cellulitis Admission/Observation Consideration of admission/observation: Escalation of care including admission/observation considered Consult Healthcare Provider Management of the patient was discussed with: Hospitalist Lab Data [facility] Lab Attestation statement: I reviewed the patient's lab results. 04/05/24 10:13 04/05/24 10:13 Labs: Lab Results 04/05/24 Range/Units 10:13 WBC 8.6 (4.8-10.8) X10*3/uL RBC 4.43 L (4.60-5.80) X10*6/uL Hgb 13.0 L (14.0-18.0) g/dl Hct 38.7 L (42.0-52.0) % MCV 87.4 (80.0-98.0) fL MCH 29.3 (27.0-33.0) pg MCHC 33.6 (31.0-36.0) g/dl RDW 13.7 (11.0-16.0) % Plt Count 216 (160-400) X10*3/uL MPV 10.9 (9.4-12.4) fL Immature Gran % (Auto) 0.5 H (0.0-0.4) % Neut % (Auto) 70.1 (45-73) % Lymph % (Auto) 16.1 L (20-40) % [place] % (Auto) 9.9 (2-11) % Eos % (Auto) 2.9 (0-4) % Baso % (Auto) 0.5 (0-2) % Lymph # (Auto) 1.4 (1.2-4.9) X10*3/uL [place] # (Auto) 0.9 (0.1-1.2) X10*3/uL Eos # (Auto) 0.3 (0.0-0.4) X10*3/uL Baso # (Auto) 0.0 (0.0-0.2) X10*3/uL Abs Immat Gran (auto) 0.04 H (0.00-0.03) X10*3/uL Absolute Neuts (auto) 6.1 (2.0-8.3) x10*3/uL Absolute Nucleated RBC 0.000 (0.0-0.012) X10*3/uL Nucleated RBC % (auto) 0.0 (0.0-0.2) /100WBC ESR 32 H (0-15) MM/HR Sodium 138 (135-145) mmol/L Potassium 4.1 (3.3-5.1) mmol/L Chloride 108 (96-108) mmol/L Carbon Dioxide 21 L (22-29) mmol/L Anion Gap 13 (12-20) BUN 21 H (9-16) mg/dL Creatinine 1.45 H (0.5-1.4) mg/dL Estim Creat Clear Calc 54.1 Estimated GFR 48 Random Glucose 201 H (60-115) mg/dL Calcium 9.5 (8.4-10.2) mg/dL Total Bilirubin 0.3 (0.0-1.0) mg/dL AST 24 (5-37) U/L ALT 33 (0-40) U/L Alkaline Phosphatase 78 (39-117) U/L C-Reactive Protein 4.34 H (< or = 0.50) mg/dL Total Protein 7.4 (6.5-8.0) g/dL Albumin 3.8 (3.5-5.0) g/dL Independent Interpretation I performed an independent interpretation of an: Ultrasound Interpretation: At bedside reviewed interpreted the leg ultrasound as compressible vein (negative for DVT) Radiology Impression Discussion of test interpretation with radiology: I have reviewed the radiologist's reading. Radiologist Impression: I reviewed the radiology reading Independent Historian Clinical information obtained from an independent historian. History obtained from or confirmed by: Spouse at bedside Chronic Conditions Patient?s care impacted by: Diabetes Discharge Plan Discharge Clinical Impression: Cellulitis of leg, right Patient Disposition: Admitted As Inpatient Print Language: Croatian
[2024-04-05 10:21] LABS: MANUAL DIFF FLAG NO
[2024-04-05 10:22] LABS: Basophils Percent Auto 0.5 % (0-2); Eosinophils Absolute Auto 0.3 X10*3/uL (0.0-0.4); Eosinophils Percent Auto 2.9 % (0-4); Hematocrit 38.7 % (42.0-52.0); Imm Gran Abs Auto 0.04 X10*3/uL (0.00-0.03); Imm Gran Pct Auto 0.5 % (0.0-0.4); Lymphocytes Absolute Auto 1.4 X10*3/uL (1.2-4.9); Lymphocytes Percent Auto 16.1 % (20-40); Mean Corpuscular HGB Conc 33.6 g/dl (31.0-36.0); Mean Corpuscular Hemoglobin 29.3 pg (27.0-33.0); Mean Corpuscular Volume 87.4 fL (80.0-98.0); Mean Platelet Volume 10.9 fL (9.4-12.4); Monocytes Absolute Auto 0.9 X10*3/uL (0.1-1.2); Monocytes Percent Auto 9.9 % (2-11); Neutrophils Absolute Auto 6.1 x10*3/uL (2.0-8.3); Neutrophils Percent Auto 70.1 % (45-73); Platelet Count 216 X10*3/uL (160-400); Red Blood Count 4.43 X10*6/uL (4.60-5.80); Red Cell Distribution Width 13.7 % (11.0-16.0); White Blood Count 8.6 X10*3/uL (4.8-10.8)
[2024-04-05 10:37] LABS: Alanine Aminotransferase 33 U/L (0-40); Albumin Level 3.8 g/dL (3.5-5.0); Alkaline Phosphatase 78 U/L (39-117); Anion Gap 13 (12-20); Aspartate Amino Transferase 24 U/L (5-37); Bilirubin Total 0.3 mg/dL (0.0-1.0); Blood Urea Nitrogen 21 mg/dL (9-16); C Reactive Protein 4.34 mg/dL (< or = 0.50); Calcium 9.5 mg/dL (8.4-10.2); Carbon Dioxide 21 mmol/L (22-29); Chloride 108 mmol/L (96-108); Creatinine Clr Calc Pharmacy 54.1; Estimated Glomerular Filt Rate 48; Glucose Random 201 mg/dL (60-115); Potassium 4.1 mmol/L (3.3-5.1); Sodium 138 mmol/L (135-145); Total Protein 7.4 g/dL (6.5-8.0)
[2024-04-05 10:43] VITALS: BP 111/49; PULSE 96; RESP 16; O2SAT 95
[2024-04-05] MEDS: vancomycin/NS 2,000 MG/500 ML PLAST..BAG 250 MG IV (10:43)
[2024-04-05 11:01] LABS: Erythrocyte Sedimentation Rate 32 MM/HR (0-15)
--- NOTE | 2024-04-05 12:36 | P.HPHOSP_ITS ---
History of Present Illness Date of Service: 04/05/24 Attending physician on admission: Jose Martin Kenney Chief Complaint: leg infection 73-year-old male with chronic kidney disease stage 3, insulin-dependent diabetes, h/o dvt on eliquis, CVA and a history of osteomyelitis of the left great toe presented to the ED earlier today for evaluation of infection of the RLE. He was hospitalized last month for cellulitis RLE having failed outpt abx requiring IV vanc/zosyn. He was discharged to compelted course PO augmentin and doxy with full resolution. However, symptoms recurred early last week with faint erythema of the R ankle. Saw PCP who prescribed Keflex but symptoms continued to worsen with erythema covering the proximal aspect of the R foot and the distal third of the right lower leg with warmth and swelling. He is afebrile and denies any injury. No leukocytosis. Renal function baseline, lytes normal. CRP 4, ESR 32. Venous duplex RLE negative for DVT. In the ED, has received iv vanco. Given history of rapidly progressing cellulitis RLE failed outpt abx will require iv abx. Review of Systems 2 Review of Systems: Yes all other systems are reviewed and are negative [facility] Medical History Osteomyelitis CVA (cerebral vascular accident) DVT (deep venous thrombosis) BPH (benign prostatic hyperplasia) Frequency-urgency syndrome Subacute osteomyelitis of right foot Enlarged prostate without lower urinary tract symptoms (luts) History of elevated PSA Surgical History History of surgery Social History Household Members: Significant Other and Family Housing: House Do you presently have visiting nurse or other home services: No Alcohol intake: never Patient Tobacco Use Status: Never used Tobacco Smoked in Last 30 Days: No Second Hand Smoke Exposure: No Use of substances other than those prescribed or required for medical reasons: No Advance Directives: No Advance Directives Information Provided: Yes Do you have a plan to hurt others: No Plan service: Yes Meds Allergies Allergy/AdvReac Type Severity Reaction Status Date / Time almond [ALMONDS] Allergy Severe THROAT Verified 04/05/24 09:36 CLOSES pecan nut [PECAN] Allergy Severe THROAT Verified 04/05/24 09:36 CLOSES Active Medications: Current Medications Acetaminophen (Acetaminophen 325 Mg Tablet) 650 mg PO Q6H PRN PRN Reason: Pain, Mild (Pain Scale 1-3), fever or headache Calcium Carbonate (Calcium Carbonate 750 Mg Tab.Chew) 750 mg PO Q4H PRN PRN Reason: Heartburn Enoxaparin Sodium (Enoxaparin Sodium 40 Mg/0.4 Ml Syringe) 40 mg SUBCUT Q24H [place] Magnesium Hydroxide (Milk Of Magnesia 30 Ml Oral.Susp) 30 ml PO DAILY PRN PRN Reason: Constipation Melatonin (Melatonin 3 Mg Tablet) 6 mg PO BEDTIME PRN PRN Reason: Insomnia Pharmacy Consult (Consult Rx Vancomycin Dosing) 1 each MISCELLANE DAILY PRN PRN Reason: Consult order Sodium Chloride (0.9 % Sodium Chloride Flush 3 Ml Syringe) 3 ml IVFLUSH QSHIFT [facility] Home Medications ?Medication ?Instructions ?Recorded ?Confirmed ?Last Taken ?Type apixaban 5 mg tablet 5 mg PO BID 08/05/20 03/01/24 03/01/24 09:00 History metoprolol tartrate 25 mg tablet 12.5 mg PO BID 08/05/20 03/01/24 03/01/24 09:00 History pantoprazole 40 mg tablet,delayed 40 mg PO DAILY@0630 08/05/20 03/01/24 03/01/24 07:00 History release empagliflozin 25 mg tablet 25 mg PO DAILY 05/05/21 03/01/24 03/01/24 09:00 History (Jardiance) gabapentin 100 mg capsule 100 mg PO TID PRN NEUROPATHY 05/05/21 03/01/24 Unknown History magnesium oxide 400 mg (241.3 mg 400 mg PO BID@0900,1700 07/11/21 03/01/24 03/01/24 09:00 History magnesium) tablet ferrous sulfate 325 mg (65 mg 325 mg PO DAILY 08/31/22 03/01/24 03/01/24 09:00 History iron) tablet (FeroSul) midodrine 10 mg tablet 10 mg PO BID@0900,1700 08/31/22 03/01/24 03/01/24 09:00 History pen needle, diabetic 31 gauge x #50 ea 08/31/22 03/01/24 Unknown History 11/29 (Easy Touch) rosuvastatin 40 mg tablet 40 mg PO BEDTIME 08/31/22 03/01/24 Unknown History insulin aspart U-100 100 unit/mL 15 unit subcut DAILY@0800 12/05/22 03/01/24 Unknown History subcutaneous solution (Novolog U-100 Insulin aspart) insulin glargine 100 unit/mL (3 20 unit subcut BID 12/05/22 03/01/24 Unknown History mL) subcutaneous pen (Lantus Solostar U-100 Insulin) cholecalciferol (vitamin D3) 25 25 mcg PO DAILY 03/01/24 03/01/24 03/01/24 09:00 History mcg (1,000 unit) tablet (Vitamin D3) cyanocobalamin (vitamin B-12) 500 500 mcg PO DAILY 03/01/24 03/01/24 03/01/24 09:00 History mcg tablet diphenoxylate-atropine 2.5 2 tab PO TID PRN Diarrhea 03/01/24 03/01/24 Unknown History mg-0.025 mg tablet finasteride 5 mg tablet 5 mg PO DAILY 03/01/24 03/01/24 03/01/24 09:00 History hydrocodone 5 mg-acetaminophen 300 1 tab PO BID PRN Pain 03/01/24 03/01/24 Unknown History mg tablet insulin aspart U-100 100 unit/mL 11 unit subcut DAILY@1700 03/01/24 03/01/24 Unknown History subcutaneous solution (Novolog U-100 Insulin aspart) insulin aspart U-100 100 unit/mL 12 unit subcut DAILY@1200 03/01/24 03/01/24 Unknown History subcutaneous solution (Novolog U-100 Insulin aspart) polyethylene glycol 3350 17 gram 17 g PO DAILY PRN Constipation 03/01/24 03/01/24 Unknown History oral powder packet Physical Exam 2 Vital Signs and Narrative: Vital Signs: Last Vital Signs Temp 98.5 F 04/05/24 10:01 Pulse 96 04/05/24 10:43 Resp 16 04/05/24 10:43 BP 111/49 L 04/05/24 10:43 Pulse Ox 65 L 04/05/24 10:43 O2 Del Method Room Air 04/05/24 10:43 BMI result Body Mass Index 34.2 Constitutional - Awake and Alert, No apparent distress Eyes - PERRLA, EOMI Cardiovascular - S1S2, RRR, No edema Respiratory - Normal lung expansion, Normal respiratory effort, No respiratory distress, CTA bilaterally Gastrointestinal - NT / ND; +BS; No rebound or guarding Extremities - no calf tenderness bilaterally Skin - Warm/Dry. Significant warm, swelling, erythema of the proximal right foot and distal third of the right lower leg with desquamation but no open sores/ulcers or drainage Neurological - Alert & oriented x3, sensation in tact Psychological - Appropriate affect Results Labs 04/05/24 10:13 04/05/24 10:13 Labs: Laboratory Results - last 24 hr 04/05/24 10:13 MCV 87.4 MCH 29.3 MCHC 33.6 RDW 13.7 Plt Count 216 MPV 10.9 Immature Gran % (Auto) 0.5 H Neut % (Auto) 70.1 Lymph % (Auto) 16.1 L [place] % (Auto) 9.9 Eos % (Auto) 2.9 Baso % (Auto) 0.5 Lymph # (Auto) 1.4 [place] # (Auto) 0.9 Eos # (Auto) 0.3 Baso # (Auto) 0.0 Abs Immat Gran (auto) 0.04 H Absolute Neuts (auto) 6.1 Absolute Nucleated RBC 0.000 Nucleated RBC % (auto) 0.0 ESR 32 H Anion Gap 13 Estim Creat Clear Calc 54.1 Estimated GFR 48 Random Glucose 201 H Calcium 9.5 Total Bilirubin 0.3 AST 24 ALT 33 Alkaline Phosphatase 78 C-Reactive Protein 4.34 H Total Protein 7.4 Albumin 3.8 Imaging Radiologist's Impressions: Impressions Venous Duplex 04/05/24 10:33 IMPRESSION: No DVT demonstrated in the right lower extremity. If the patient's symptoms persist, followup ultrasound in 5 days 7 days might be of value to exclude proximal propagation from a non-visualized calf vein. Assessment and Plan (1) Cellulitis of leg, right: Status: Acute Plan 73-year-old male with chronic kidney disease stage 3, insulin-dependent diabetes, h/o dvt on eliquis, CVA and a history of osteomyelitis of the left great toe to be observed for cellulitis RLE #Acute cellulitis RLE -failed outpt keflex. Has hx of rapidly progressing cellulitis of same area failing outpt abx and requiring iv abx -iv vanco and xosyn (initiated 04/05) -No leukocytosis, fevers. No sepsis -esr 32, crp 4 -follow cbc #insulin dependent type 2 diabetes without hyperglycemia -hgb a1c pending -dose adjusted basal insulin -poc glucose, diabetic diet -ssi #CKD stage 3 -renal function baseline #Hx DVT -continue eliquis dvt prophylaxis- eliquis full code Quality Stroke Does the patient have a stroke diagnosis?: No VTE Prior VTE?: No VTE Risk Level:: Medical - moderate - high VTE Device Contraindication: Treatment Not Indicated VTE Drug Contraindication: N/A - Med Ordered
[2024-04-05 13:24] LABS: Estimated Average Glucose 166 mg/dL; Hemoglobin A1c % 7.4 % (<6.0)
--- NOTE | 2024-04-05 13:30 | PHA.MEDREC ---
Addendum entered by Glenn Chatterjee 04/05/24 14:29: Long [facility] Semglee. Patient verbally told me he uses Lantus. Original Note: Pharmacy Consult ? Medication Reconciliation Pharmacy has completed the medication reconciliation. Spoke with patient at bedside while his significant other was on the phone to confirm his medications. He states he last took cephalexin this AM. He reported novolog 30 units TID and Lantus 38 units BID [facility]. His S/O reported baby aspirin, triple abx ointment, and cholestyramine packets. Both patient and S/O report his lomotil and cholestyramine packets are not working for his diarrhea. Patient reports he took his morning medications today, including the eliquis.
[2024-04-05] MEDS: Piperacillin Sodium/Tazobactam 3.375 GM in 0.9 % Sodium Chloride 50 ML IV ×2 (13:55→18:03)
[2024-04-05 15:02] VITALS: BMI 34.2
[2024-04-05 15:04] VITALS: BP 148/75; PULSE 76; RESP 18; TEMP 36.6; O2SAT 97
[2024-04-05] MEDS: 0.9 % Sodium Chloride Flush 3 ML SYRINGE IVFLUSH ×2 (15:37→20:16)
[2024-04-05 16:06] LABS: Glucose, Whole Blood 101 mg/dL (60-115)
[2024-04-05] MEDS: Gabapentin 100 MG CAPSULE PO (16:54)
[2024-04-05] MEDS: Magnesium Oxide 400 MG TABLET PO (16:54)
[2024-04-05] MEDS: Midodrine HCl 10 MG TABLET PO (16:54)
[2024-04-05 20:00] VITALS: BP 119/55; PULSE 83; RESP 18; TEMP 37.2; O2SAT 94
[2024-04-05 20:13] LABS: Glucose, Whole Blood 175 mg/dL (60-115)
[2024-04-05] MEDS: Metoprolol Tartrate 12.5 MG HALFTAB PO (20:15)
[2024-04-05] MEDS: Apixaban 5 MG TABLET PO (20:15)
[2024-04-05] MEDS: Atorvastatin Calcium 80 MG TABLET PO (20:15)
[2024-04-05 20:16] VITALS: BP 119/55
[2024-04-05] MEDS: Doxazosin Mesylate 2 MG TABLET 4 MG PO (20:16)
[2024-04-05] MEDS: Insulin Glargine,Hum.rec.anlog 100 UNIT/ML 10 ML VIAL 28 UNIT SUBCUT (20:30)
[2024-04-05] MEDS: Insulin Lispro 100 UNIT/ML 3 ML VIAL SUBCUT (20:30)
[2024-04-06] MEDS: Gabapentin 100 MG CAPSULE PO ×2 (00:11→14:38)
[2024-04-06] MEDS: Piperacillin Sodium/Tazobactam 3.375 GM in 0.9 % Sodium Chloride 50 ML IV ×5 (00:12→23:25)
[2024-04-06 04:00] VITALS: BP 99/53; PULSE 75; RESP 18; TEMP 36.8; O2SAT 93
[2024-04-06] MEDS: Omeprazole 20 MG CAPSULE.DR PO (06:05)
[2024-04-06 06:50] LABS: MANUAL DIFF FLAG NO
[2024-04-06 07:11] LABS: Anion Gap 13 (12-20); Blood Urea Nitrogen 23 mg/dL (9-16); Calcium 8.4 mg/dL (8.4-10.2); Carbon Dioxide 19 mmol/L (22-29); Chloride 106 mmol/L (96-108); Creatinine Clr Calc Pharmacy 52.2; Estimated Glomerular Filt Rate 46; Glucose Random 130 mg/dL (60-115); Potassium 3.9 mmol/L (3.3-5.1); Sodium 134 mmol/L (135-145)
--- NOTE | 2024-04-06 07:28 | HO.PM.IMPN ---
Subjective Subjective Date of Service: 04/06/24 Interval History: Seen in follow-up for right lower extremity cellulitis Interval history: No complaints, reports feels less swollen, able to bear weight. Remains afebrile, no leukocytosis Review of Systems Review of Systems: Yes all other systems are reviewed and are negative Physical Exam Vital Signs: Vital Signs: Last Vital Signs Temp 98.2 F 04/06/24 04:00 Pulse 75 04/06/24 04:00 Resp 18 04/06/24 04:00 BP 99/53 L 04/06/24 04:00 Pulse Ox 93 04/06/24 04:00 O2 Del Method Room Air 04/06/24 04:00 BMI result Body Mass Index 34.2 Constitutional - Awake and Alert, No apparent distress Eyes - PERRLA, EOMI Cardiovascular - S1S2, RRR, No edema Respiratory - Normal lung expansion, Normal respiratory effort, No respiratory distress, CTA bilaterally Gastrointestinal - NT / ND; +BS; No rebound or guarding Extremities - no calf tenderness bilaterally, no swelling Skin - Warm/Dry. Proximal aspect of R foot and distal 1/3-1/2 of right lower leg remains warm and significantly erythematous. Shallow venous ulcer noted at the lateral aspect of the right lower leg without any purulent drainage without improvement compared to yesterday, but no increased erythema Neurological - Alert & oriented x3 Psychological - Appropriate affect Objective Data Active Medications Acetaminophen (Acetaminophen 325 Mg Tablet) 650 mg PO Q6H PRN PRN Reason: Pain, Mild (Pain Scale 1-3), fever or headache Hydrocodone Bitart/Acetaminophen (Hydrocodone Bit/Acetam 5/325 Tablet) 1 tab PO BID PRN PRN Reason: Pain, Severe (Pain Scale 7-10) Apixaban (Apixaban 5 Mg Tablet) 5 mg PO BID [facility] Last Admin: 04/05/24 20:15 Dose: 5 mg Documented By: GONZALO Aspirin (Aspirin Enteric Coated 81 Mg Tablet.Dr) 81 mg PO DAILY [facility] [place] Atorvastatin Calcium (Atorvastatin Calcium 80 Mg Tablet) 80 mg PO BEDTIME [facility] [place] Last Admin: 04/05/24 20:15 Dose: 80 mg Documented By: GONZALO Calcium Carbonate (Calcium Carbonate 750 Mg Tab.Chew) 750 mg PO Q4H PRN PRN Reason: Heartburn Cholestyramine Resin (Cholestyramine (With Sugar) 4 Gm Powd.Pack) 4 gm PO BID PRN PRN Reason: Diarrhea Cyanocobalamin (Cyanocobalamin (Vitamin B-12) 500 Mcg Tablet) 500 mcg PO DAILY [facility] [place] Diphenoxylate HCl/Atropine (Diphenoxylate/Atrop 2.5/0.025 Tablet) 2 tab PO TID PRN PRN Reason: Diarrhea Doxazosin Mesylate (Doxazosin Mesylate 2 Mg Tablet) 4 mg PO BEDTIME [facility] [place] Last Admin: 04/05/24 20:16 Dose: 4 mg Documented By: GONZALO Empagliflozin (Empagliflozin 25 Mg Tablet) 25 mg PO DAILY [facility] [place] Ferrous Sulfate (Ferrous Sulfate 324 Mg Tablet.Dr) 324 mg PO DAILY [facility] [place] Finasteride (Finasteride 5 Mg Tablet) 5 mg PO DAILY [facility] [place] Gabapentin (Gabapentin 100 Mg Capsule) 100 mg PO TID PRN PRN Reason: NEUROPATHY Last Admin: 04/06/24 00:11 Dose: 100 mg Documented By: GONZALO Glucose (Glucose Gel 15 Gm Gel..Gram.) 15 gm PO Q15M PRN; Protocol PRN Reason: per Hypoglycemia Standing Ord. Piperacillin Sod/Tazobactam (Sod 3.375 gm/ Sodium Chloride) 50 mls @ 100 mls/hr IV Q6H [facility] [place] Last Infusion: 04/06/24 06:38 Dose: Infused Documented By: GONZALO Dextrose (D10) 250 mls @ 750 mls/hr IV Q15M PRN; Protocol PRN Reason: per Hypoglycemia Standing Ord. Insulin Glargine (Insulin Glargine,Hum.Rec.Anlog 100 Unit/Ml 10 Ml Vial) 28 unit SUBCUT BID [facility] [place] Last Admin: 04/05/24 20:30 Dose: 28 unit Documented By: GONZALO Insulin Human Lispro (Insulin Lispro 100 Unit/Ml 3 Ml Vial) 0 unit SUBCUT QIDACHS [facility] [place]; Protocol Last Admin: 04/05/24 20:30 Dose: 2 unit Documented By: GONZALO Magnesium Hydroxide (Milk Of Magnesia 30 Ml Oral.Susp) 30 ml PO DAILY PRN PRN Reason: Constipation Magnesium Oxide (Magnesium Oxide 400 Mg Tablet) 400 mg PO BID@0900,1700 [facility] [place] Last Admin: 04/05/24 16:54 Dose: 400 mg Documented By: GRAZIC Melatonin (Melatonin 3 Mg Tablet) 6 mg PO BEDTIME PRN PRN Reason: Insomnia Metoprolol Tartrate (Metoprolol Tartrate 12.5 Mg Halftab) 12.5 mg PO BID [facility] [place]; Protocol Last Admin: 04/05/24 20:15 Dose: 12.5 mg Documented By: GONZALO Comments: 119/55 H 83 Midodrine (Midodrine Hcl 10 Mg Tablet) 10 mg PO BID@0900,1700 [facility] [place] Last Admin: 04/05/24 16:54 Dose: 10 mg Documented By: GENNA Neomycin/Polymyxin/Bacitracin (Neomy/Polymyx/Bacit/Ointment 1 Each Oint.Pack) 1 appl TOPICAL BID [facility] [place]; Protocol Last Admin: 04/05/24 20:16 Dose: 1 appl Documented By: GONZALO Omeprazole (Omeprazole 20 Mg Capsule.Dr) 20 mg PO DAILY@0630 [facility] [place] Last Admin: 04/06/24 06:05 Dose: 20 mg Documented By: GONZALO Pharmacy Consult (Consult Rx Vancomycin Dosing) 1 each MISCELLANE DAILY PRN PRN Reason: Consult order Polyethylene Glycol (Polyethylene Glycol 3350 17 Gm Powd.Pack) 17 gm PO DAILY PRN PRN Reason: Constipation Sodium Chloride (0.9 % Sodium Chloride Flush 3 Ml Syringe) 3 ml IVFLUSH QSHIFT [facility] [place] Last Admin: 04/05/24 20:16 Dose: 3 ml Documented By: GONZALO Vitamin D (Cholecalciferol (Vitamin D3) 25 Mcg Tablet) 25 mcg PO DAILY [facility] [place] Labs 04/06/24 05:21 04/06/24 05:21 Labs: Laboratory Results - last 24 hr 04/05/24 04/05/24 04/05/24 10:13 13:08 16:00 MCV 87.4 MCH 29.3 MCHC 33.6 RDW 13.7 Plt Count 216 MPV 10.9 Immature Gran % (Auto) 0.5 H Neut % (Auto) 70.1 Lymph % (Auto) 16.1 L [place] % (Auto) 9.9 Eos % (Auto) 2.9 Baso % (Auto) 0.5 Lymph # (Auto) 1.4 [place] # (Auto) 0.9 Eos # (Auto) 0.3 Baso # (Auto) 0.0 Abs Immat Gran (auto) 0.04 H Absolute Neuts (auto) 6.1 Absolute Nucleated RBC 0.000 Nucleated RBC % (auto) 0.0 ESR 32 H Anion Gap 13 Estim Creat Clear Calc 54.1 Estimated GFR 48 POC Glucose 101 Random Glucose 201 H Estimat Average Glucose 166 Hemoglobin A1c % 7.4 H Calcium 9.5 Total Bilirubin 0.3 AST 24 ALT 33 Alkaline Phosphatase 78 C-Reactive Protein 4.34 H Total Protein 7.4 Albumin 3.8 04/05/24 04/06/24 20:06 05:21 MCV MCH MCHC RDW Plt Count MPV Immature Gran % (Auto) Neut % (Auto) Lymph % (Auto) [place] % (Auto) Eos % (Auto) Baso % (Auto) Lymph # (Auto) [place] # (Auto) Eos # (Auto) Baso # (Auto) Abs Immat Gran (auto) Absolute Neuts (auto) Absolute Nucleated RBC Nucleated RBC % (auto) ESR Anion Gap 13 Estim Creat Clear Calc 52.2 Estimated GFR 46 POC Glucose 175 H Random Glucose 130 H Estimat Average Glucose Hemoglobin A1c % Calcium 8.4 D Total Bilirubin AST ALT Alkaline Phosphatase C-Reactive Protein Total Protein Albumin Assessment and Plan (1) Cellulitis of leg, right: Status: Acute Plan 73-year-old male with chronic kidney disease stage 3, insulin-dependent diabetes, h/o dvt on eliquis, CVA and a history of osteomyelitis of the left great toe to be observed for cellulitis RLE #Acute cellulitis RLE -failed outpt keflex. Has hx of rapidly progressing cellulitis of same area failing outpt abx and requiring iv abx -iv vanco and xosyn (initiated 04/05) -No leukocytosis, fevers. No sepsis -esr 32, crp 4 -follow cbc -once improving, consider change to PO augmentin and doxycycline (previously prescribed on discharge with good effect) -consider outpt follow up with vascular #insulin dependent type 2 diabetes without hyperglycemia -hgb a1c pending -dose adjusted basal insulin -poc glucose, diabetic diet -ssi #CKD stage 3 -renal function baseline #Hx DVT -continue eliquis dvt prophylaxis- eliquis full code Due to history of rapidly progressing cellulitis RLE failed multiple courses of PO antibiotics and ultiamtely requiring admission for IV abx patient will be treated empirically with IV abx for at least 2 midnights given no improvement with intial course of PO antibiotics and to prevent progression to worsening cellulitis with severe sepsis Quality Stroke Does the patient have a stroke diagnosis?: No VTE Prior VTE?: No VTE Risk Level:: Medical - moderate - high VTE Device Contraindication: Treatment Not Indicated VTE Drug Contraindication: N/A - Med Ordered
[2024-04-06 07:32] LABS: Basophils Percent Auto 0.3 % (0-2); Eosinophils Absolute Auto 0.3 X10*3/uL (0.0-0.4); Eosinophils Percent Auto 4.4 % (0-4); Hematocrit 36.8 % (42.0-52.0); Hemoglobin 12.3 g/dl (14.0-18.0); Imm Gran Abs Auto 0.03 X10*3/uL (0.00-0.03); Imm Gran Pct Auto 0.4 % (0.0-0.4); Lymphocytes Absolute Auto 0.9 X10*3/uL (1.2-4.9); Lymphocytes Percent Auto 11.7 % (20-40); Mean Corpuscular HGB Conc 33.4 g/dl (31.0-36.0); Mean Corpuscular Hemoglobin 29.4 pg (27.0-33.0); Mean Platelet Volume 11.5 fL (9.4-12.4); Monocytes Absolute Auto 0.6 X10*3/uL (0.1-1.2); Monocytes Percent Auto 8.5 % (2-11); Neutrophils Absolute Auto 5.6 x10*3/uL (2.0-8.3); Neutrophils Percent Auto 74.7 % (45-73); Platelet Count 196 X10*3/uL (160-400); Red Blood Count 4.18 X10*6/uL (4.60-5.80); Red Cell Distribution Width 13.6 % (11.0-16.0); White Blood Count 7.5 X10*3/uL (4.8-10.8)
[2024-04-06 07:39] VITALS: BP 110/54; PULSE 85; RESP 18; TEMP 36.9; O2SAT 93
[2024-04-06 07:50] LABS: Glucose, Whole Blood 122 mg/dL (60-115)
[2024-04-06] MEDS: Empagliflozin 25 MG TABLET PO (08:19)
[2024-04-06] MEDS: Apixaban 5 MG TABLET PO ×2 (08:19→20:18)
[2024-04-06] MEDS: Magnesium Oxide 400 MG TABLET PO ×2 (08:19→17:06)
[2024-04-06] MEDS: Midodrine HCl 10 MG TABLET PO (08:19)
[2024-04-06] MEDS: Ferrous Sulfate 324 MG TABLET.DR PO (08:19)
[2024-04-06] MEDS: Metoprolol Tartrate 12.5 MG HALFTAB PO ×2 (08:19→20:19)
[2024-04-06] MEDS: Finasteride 5 MG TABLET PO (08:19)
[2024-04-06] MEDS: Cholecalciferol (Vitamin D3) 25 MCG TABLET PO (08:19)
[2024-04-06] MEDS: Aspirin Enteric Coated 81 MG TABLET.DR PO (08:19)
[2024-04-06] MEDS: Cyanocobalamin (Vitamin B-12) 500 MCG TABLET PO (08:19)
[2024-04-06] MEDS: Insulin Glargine,Hum.rec.anlog 100 UNIT/ML 10 ML VIAL 28 UNIT SUBCUT ×2 (08:20→20:19)
[2024-04-06] MEDS: 0.9 % Sodium Chloride Flush 3 ML SYRINGE IVFLUSH ×3 (08:26→20:20)
[2024-04-06 11:22] LABS: Glucose, Whole Blood 184 mg/dL (60-115)
[2024-04-06] MEDS: Insulin Lispro 100 UNIT/ML 3 ML VIAL SUBCUT ×3 (11:49→20:19)
--- NOTE | 2024-04-06 13:08 | MHC.CM.PN ---
Addendum entered by Angelica Olivares RN 04/06/24 13:10: IMM delivered. Original Note: Patient lives in a home w/ his son and brother. Patient's son and son's GF are patient's HYDROGEN TREATER's, 4 hours daily. Ambulates w/ a walker. Also has CPAP/O2 through [employer]. O2 is nocturnal only, to be used w/ CPAP per [facility] No other services. PCP Manan Reinoso MD No HCP. CM provided education and offered assistance. Patient would like to speak w/ his brother first. DP: Home resume services, vs home w/ new [facility] for SN. Son will transport. CM will continue to follow.
[2024-04-06] MEDS: HYDROcodone Bit/Acetam 5/325 TABLET 1 TAB PO (14:40)
[2024-04-06 15:36] VITALS: BP 105/52; PULSE 63; RESP 18; TEMP 36.5; O2SAT 96
[2024-04-06] MEDS: polyethylene glycoL 3350 17 GM POWD.PACK PO (16:05)
[2024-04-06 16:14] LABS: Glucose, Whole Blood 184 mg/dL (60-115)
[2024-04-06 17:03] VITALS: BP 144/80; PULSE 68; RESP 18; TEMP 36.7; O2SAT 95
--- NOTE | 2024-04-06 18:20 | PHA.PROG ---
Admission Date/Time: April 05, 2024 12:28 Indication: skin Weight in k kg Adjusted body weight in Kg: [place] body weight in Kg: Obesity Dosing Indication % IBW: Serum Creatinine - Last 168 Hours 04/05/24 04/06/24 10:13 05:21 Creatinine 1.45 H 1.50 H Estimated CrCl and GFR - Last 168 Hours 04/05/24 04/06/24 10:13 05:21 Estim Creat Clear Calc 54.1 52.2 Estimated GFR 48 46 Vancomycin Loading Dose: 2000mg Current Vancomycin Dosing Regimen: 1500mg Q24H Vancomycin Monitoring using AUC goal of 400 - 600 range with trough as surrogate marker: 525mg/L Date and Time for next Vancomycin Level to be drawn: 04/07 @1700 Pharmacist Comments on Vancomycin Plan: Predicted trough of 16.2mg/L; patient BMI of 34, may want to switch to obese model depending on model fit Vancomycin dosing will take advantage of [employer] as a clinical decision support tool that uses Bayesian modeling to calculate individual patient's pharmacokinetic parameters and forecast the patient's drug concentration time course with the target goal AUC 24 range of 400 - 600 mg/L/hr.
[2024-04-06 19:33] VITALS: BP 123/61; PULSE 64; RESP 16; TEMP 36; O2SAT 95
[2024-04-06 19:40] LABS: Glucose, Whole Blood 235 mg/dL (60-115)
[2024-04-06] MEDS: vancomycin HCL 1,500 MG in 0.9 % Sodium Chloride 500 ML 333.33 MG IV (20:02)
[2024-04-06] MEDS: oxyCODONE HCl Immed Release 5 MG TABLET PO (20:18)
[2024-04-06] MEDS: Doxazosin Mesylate 2 MG TABLET 4 MG PO (20:18)
[2024-04-06] MEDS: Atorvastatin Calcium 80 MG TABLET PO (20:19)
--- NOTE | 2024-04-06 20:24 | MHC.PIE ---
p; pt c/o back pain 01/23. note; tylenol 650mg for pain 1-3 and lorcet bid for pain 7-10 last given at 1440. no pain med for 4-6 pain? i; dr gill notified. new order oxy 5mg for pain 4-6 e; will cont to [facility]
[2024-04-07 03:27] VITALS: BP 118/58; PULSE 71; RESP 18; TEMP 36.1; O2SAT 97
[2024-04-07 06:04] LABS: Anion Gap 13 (12-20); Blood Urea Nitrogen 22 mg/dL (9-16); Calcium 8.8 mg/dL (8.4-10.2); Carbon Dioxide 21 mmol/L (22-29); Chloride 108 mmol/L (96-108); Creatinine Clr Calc Pharmacy 54.4; Estimated Glomerular Filt Rate 48; Glucose Random 121 mg/dL (60-115); Potassium 3.7 mmol/L (3.3-5.1); Sodium 138 mmol/L (135-145)
[2024-04-07] MEDS: Omeprazole 20 MG CAPSULE.DR PO (06:10)
[2024-04-07] MEDS: Piperacillin Sodium/Tazobactam 3.375 GM in 0.9 % Sodium Chloride 50 ML IV ×4 (06:10→23:08)
[2024-04-07 07:39] VITALS: BP 116/54; PULSE 64; RESP 16; TEMP 36.3; O2SAT 96
[2024-04-07 07:52] LABS: Glucose, Whole Blood 109 mg/dL (60-115)
[2024-04-07] MEDS: Midodrine HCl 10 MG TABLET PO (07:59)
[2024-04-07] MEDS: Metoprolol Tartrate 12.5 MG HALFTAB PO ×2 (08:00→21:44)
[2024-04-07] MEDS: Aspirin Enteric Coated 81 MG TABLET.DR PO (08:00)
[2024-04-07] MEDS: Empagliflozin 25 MG TABLET PO (08:00)
[2024-04-07] MEDS: Cholecalciferol (Vitamin D3) 25 MCG TABLET PO (08:00)
[2024-04-07] MEDS: Cyanocobalamin (Vitamin B-12) 500 MCG TABLET PO (08:00)
[2024-04-07] MEDS: Finasteride 5 MG TABLET PO (08:00)
[2024-04-07] MEDS: Apixaban 5 MG TABLET PO ×2 (08:00→21:45)
[2024-04-07] MEDS: Ferrous Sulfate 324 MG TABLET.DR PO (08:00)
[2024-04-07] MEDS: Magnesium Oxide 400 MG TABLET PO ×2 (08:00→16:32)
[2024-04-07] MEDS: Insulin Glargine,Hum.rec.anlog 100 UNIT/ML 10 ML VIAL 28 UNIT SUBCUT ×2 (08:01→21:45)
[2024-04-07] MEDS: 0.9 % Sodium Chloride Flush 3 ML SYRINGE IVFLUSH ×3 (08:01→21:45)
[2024-04-07 11:16] LABS: Glucose, Whole Blood 137 mg/dL (60-115)
--- NOTE | 2024-04-07 14:06 | P.PNIM_ITS ---
Subjective Subjective Date of Service: 04/07/24 Interval History: right lower extremity cellulitis Review of Systems lower leg erythema similar ,has some swelling some pain Physical Exam 2 Vital Signs: Vital Signs: Last Vital Signs Temp 97.4 F 04/07/24 07:39 Pulse 64 04/07/24 07:39 Resp 16 04/07/24 07:39 BP 116/54 L 04/07/24 07:39 Pulse Ox 96 04/07/24 07:39 O2 Del Method Room Air 04/07/24 07:39 BMI result Body Mass Index 34.2 Appearance: Alert.? Oriented X3.? cvs: rrr, [id number] , no murmur res: clear to auscultation ,no rhonchii or wheezing abd: no rebound or guarding ,nt, bs present. ext pulses present , no cyanosis. right lower ext-some erythema /swelling ,some flactulace neuro: axo3 , nonfocal. Objective Data Active Medications Acetaminophen (Acetaminophen 325 Mg Tablet) 975 mg PO Q6H PRN PRN Reason: Pain, Mild (Pain Scale 1-3), fever or headache Hydrocodone Bitart/Acetaminophen (Hydrocodone Bit/Acetam 5/325 Tablet) 1 tab PO BID PRN PRN Reason: Pain, Severe (Pain Scale 7-10) Last Admin: 04/06/24 14:40 Dose: 1 tab Documented By: ANALI Apixaban (Apixaban 5 Mg Tablet) 5 mg PO BID [facility] Last Admin: 04/07/24 08:00 Dose: 5 mg Documented By: KEVIN Aspirin (Aspirin Enteric Coated 81 Mg Tablet.) 81 mg PO DAILY [facility] Last Admin: 04/07/24 08:00 Dose: 81 mg Documented By: KEVIN Atorvastatin Calcium (Atorvastatin Calcium 80 Mg Tablet) 80 mg PO BEDTIME [facility] Last Admin: 04/06/24 20:19 Dose: 80 mg Documented By: MACIEL Calcium Carbonate (Calcium Carbonate 750 Mg Tab.Chew) 750 mg PO Q4H PRN PRN Reason: Heartburn Cholestyramine Resin (Cholestyramine (With Sugar) 4 Gm Powd.Pack) 4 gm PO BID PRN PRN Reason: Diarrhea Cyanocobalamin (Cyanocobalamin (Vitamin B-12) 500 Mcg Tablet) 500 mcg PO DAILY [facility] Last Admin: 04/07/24 08:00 Dose: 500 mcg Documented By: KEVIN Diphenoxylate HCl/Atropine (Diphenoxylate/Atrop 2.5/0.025 Tablet) 2 tab PO TID PRN PRN Reason: Diarrhea Doxazosin Mesylate (Doxazosin Mesylate 2 Mg Tablet) 4 mg PO BEDTIME [facility] Last Admin: 04/06/24 20:18 Dose: 4 mg Documented By: MACIEL Empagliflozin (Empagliflozin 25 Mg Tablet) 25 mg PO DAILY [facility] Last Admin: 04/07/24 08:00 Dose: 25 mg Documented By: KEVIN Ferrous Sulfate (Ferrous Sulfate 324 Mg Tablet.Dr) 324 mg PO DAILY [facility] Last Admin: 04/07/24 08:00 Dose: 324 mg Documented By: KEVIN Finasteride (Finasteride 5 Mg Tablet) 5 mg PO DAILY [facility] Last Admin: 04/07/24 08:00 Dose: 5 mg Documented By: KEVIN Gabapentin (Gabapentin 100 Mg Capsule) 100 mg PO TID PRN PRN Reason: NEUROPATHY Last Admin: 04/06/24 14:38 Dose: 100 mg Documented By: ANALI Glucose (Glucose Gel 15 Gm Gel..Gram.) 15 gm PO Q15M PRN; Protocol PRN Reason: per Hypoglycemia Standing Ord. Piperacillin Sod/Tazobactam (Sod 3.375 gm/ Sodium Chloride) 50 mls @ 100 mls/hr IV Q6H [facility] Last Infusion: 04/07/24 13:23 Dose: Infused Documented By: KATE Dextrose (D10) 250 mls @ 750 mls/hr IV Q15M PRN; Protocol PRN Reason: per Hypoglycemia Standing Ord. Vancomycin HCl 1,500 mg/ (Sodium Chloride) 500 mls @ 333.333 mls/hr IV Q24H [facility] Last Infusion: 04/06/24 21:52 Dose: Infused Documented By: MACIEL Insulin Glargine (Insulin Glargine,Hum.Rec.Anlog 100 Unit/Ml 10 Ml Vial) 28 unit SUBCUT BID [facility] Last Admin: 04/07/24 08:01 Dose: 28 unit Documented By: KEVIN Insulin Human Lispro (Insulin Lispro 100 Unit/Ml 3 Ml Vial) 0 unit SUBCUT QIDACHS [facility]; Protocol Last Admin: 04/07/24 11:45 Dose: Not Given Documented By: KATE Non-Admin Reason: No Insulin Coverage Magnesium Hydroxide (Milk Of Magnesia 30 Ml Oral.Susp) 30 ml PO DAILY PRN PRN Reason: Constipation Magnesium Oxide (Magnesium Oxide 400 Mg Tablet) 400 mg PO BID@0900,1700 [facility] Last Admin: 04/07/24 08:00 Dose: 400 mg Documented By: KEVIN Melatonin (Melatonin 3 Mg Tablet) 6 mg PO BEDTIME PRN PRN Reason: Insomnia Metoprolol Tartrate (Metoprolol Tartrate 12.5 Mg Halftab) 12.5 mg PO BID [facility]; Protocol Last Admin: 04/07/24 08:00 Dose: 12.5 mg Documented By: KEVIN Midodrine (Midodrine Hcl 10 Mg Tablet) 10 mg PO BID@0900,1700 [facility] Last Admin: 04/07/24 07:59 Dose: 10 mg Documented By: KEVIN Neomycin/Polymyxin/Bacitracin (Neomy/Polymyx/Bacit/Ointment 1 Each Oint.Pack) 1 appl TOPICAL BID [facility]; Protocol Last Admin: 04/07/24 08:01 Dose: 1 appl Documented By: KEVIN Omeprazole (Omeprazole 20 Mg Capsule.) 20 mg PO DAILY@0630 [facility] Last Admin: 04/07/24 06:10 Dose: 20 mg Documented By: MACIEL Oxycodone HCl (Oxycodone Hcl Immed Release 5 Mg Tablet) 5 mg PO Q3H PRN PRN Reason: Pain, Moderate(Pain Scale 4-6) Last Admin: 04/06/24 20:18 Dose: 5 mg Documented By: MACIEL Pharmacy Consult (Consult Rx Vancomycin Dosing) 1 each MISCELLANE DAILY PRN PRN Reason: Consult order Polyethylene Glycol (Polyethylene Glycol 3350 17 Gm Powd.Pack) 17 gm PO DAILY PRN PRN Reason: Constipation Last Admin: 04/06/24 16:05 Dose: 17 gm Documented By: NICKI Sodium Chloride (0.9 % Sodium Chloride Flush 3 Ml Syringe) [address] [facility] Last Admin: 04/07/24 08:01 Dose: 3 ml Documented By: KEVIN Vitamin D (Cholecalciferol (Vitamin D3) 25 Mcg Tablet) 25 mcg PO DAILY [facility] Last Admin: 04/07/24 08:00 Dose: 25 mcg Documented By: KEVIN Labs 04/06/24 05:21 04/07/24 05:13 Labs: Laboratory Results - last 24 hr 04/06/24 04/06/24 04/07/24 16:04 19:35 05:13 Anion Gap 13 Estim Creat Clear Calc 54.4 Estimated GFR 48 POC Glucose 184 H 235 H Random Glucose 121 H Calcium 8.8 04/07/24 04/07/24 07:41 11:12 Anion Gap Estim Creat Clear Calc Estimated GFR POC Glucose 109 137 H Random Glucose Calcium Microbiology Microbiology Results: Microbiology 04/05/24 10:56 Blood Culture - Preliminary Blood - Venous No growth after 48 hours. 04/05/24 10:13 Blood Culture - Preliminary Blood - Venous No growth after 48 hours. Assessment and Plan (1) Cellulitis of leg, right: Status: Acute Plan 73-year-old male with chronic kidney disease stage 3, insulin-dependent diabetes, h/o dvt on eliquis, CVA and a history of osteomyelitis of the left great toe to be observed for cellulitis RLE Acute cellulitis RLE-failed outpt keflex. Has hx of rapidly progressing cellulitis of same area failing outpt abx and requiring iv abx us soft tissue - possible shows ? collection (possible abcess ) IR to drain and cultures esr 32, crp 4 No leukocytosis, fevers. No sepsis plan: continue vanco /zosyn (initiated 04/05). 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 Quality Stroke Does the patient have a stroke diagnosis?: No VTE Prior VTE?: No VTE Risk Level:: Medical - moderate - high VTE Device Contraindication: Treatment Not Indicated VTE Drug Contraindication: N/A - Med Ordered
--- NOTE | 2024-04-07 14:42 | PM.PROC ---
Brief Operative Note Date of procedure: 04/07/24 Pre-op diagnosis: RLE soft tissue fluid collection, Cellulitis Post-op diagnosis: same Procedure: US aspiration of RLE soft tissue fluid collection Complex fluid collection on lateral portion of the RLE, superior to the ankle 5 cc purulent/bloody fluid aspriated and sent for culture. No immediate complications Anesthesia: local
[2024-04-07] MEDS: Lidocaine HCl 1 % MPF 5 ML VIAL SUBCUT (14:47)
[2024-04-07 15:20] VITALS: BP 133/63; PULSE 66; RESP 18; TEMP 36.4; O2SAT 97
[2024-04-07 16:13] LABS: Glucose, Whole Blood 162 mg/dL (60-115)
[2024-04-07] MEDS: Insulin Lispro 100 UNIT/ML 3 ML VIAL SUBCUT ×2 (16:32→21:45)
[2024-04-07] MEDS: Gabapentin 100 MG CAPSULE PO (16:39)
[2024-04-07 17:36] LABS: Vancomycin Random 11.1 mcg/mL (15-20)
[2024-04-07] MEDS: polyethylene glycoL 3350 17 GM POWD.PACK PO (17:39)
[2024-04-07] MEDS: vancomycin HCL 1,500 MG in 0.9 % Sodium Chloride 500 ML 333.33 MG IV (18:16)
[2024-04-07] MEDS: HYDROcodone Bit/Acetam 5/325 TABLET 1 TAB PO (18:34)
[2024-04-07 19:35] VITALS: BP 123/59; PULSE 58; RESP 16; TEMP 36.5; O2SAT 95
[2024-04-07 20:07] LABS: Glucose, Whole Blood 156 mg/dL (60-115)
[2024-04-07] MEDS: Doxazosin Mesylate 2 MG TABLET 4 MG PO (21:44)
[2024-04-07] MEDS: Atorvastatin Calcium 80 MG TABLET PO (21:45)
[2024-04-08 03:51] VITALS: BP 156/74; PULSE 65; RESP 16; TEMP 36.3; O2SAT 96
[2024-04-08] MEDS: Omeprazole 20 MG CAPSULE.DR PO (05:17)
[2024-04-08] MEDS: Piperacillin Sodium/Tazobactam 3.375 GM in 0.9 % Sodium Chloride 50 ML IV ×4 (05:17→23:54)
[2024-04-08 06:29] LABS: Creatinine Clr Calc Pharmacy 59.4; Estimated Glomerular Filt Rate 53
[2024-04-08 07:24] VITALS: BP 129/63; PULSE 84; RESP 20; TEMP 36.3; O2SAT 95
[2024-04-08] MEDS: Finasteride 5 MG TABLET PO (07:39)
[2024-04-08] MEDS: Apixaban 5 MG TABLET PO ×2 (07:40→20:31)
[2024-04-08] MEDS: Aspirin Enteric Coated 81 MG TABLET.DR PO (07:40)
[2024-04-08] MEDS: Ferrous Sulfate 324 MG TABLET.DR PO (07:40)
[2024-04-08] MEDS: Cyanocobalamin (Vitamin B-12) 500 MCG TABLET PO (07:40)
[2024-04-08] MEDS: Cholecalciferol (Vitamin D3) 25 MCG TABLET PO (07:40)
[2024-04-08] MEDS: Metoprolol Tartrate 12.5 MG HALFTAB PO ×2 (07:40→20:31)
[2024-04-08] MEDS: Empagliflozin 25 MG TABLET PO (07:40)
[2024-04-08] MEDS: Magnesium Oxide 400 MG TABLET PO ×2 (07:40→16:19)
[2024-04-08 07:46] LABS: Glucose, Whole Blood 108 mg/dL (60-115)
[2024-04-08] MEDS: 0.9 % Sodium Chloride Flush 3 ML SYRINGE IVFLUSH ×3 (08:00→23:54)
--- NOTE | 2024-04-08 08:37 | HE.PHANOTE ---
RE Vanc Renal function is improving slightly. Current dosing still showing therapeutic trough and AUC. Will continue, next level due 04/09 @1700.
[2024-04-08] MEDS: HYDROcodone Bit/Acetam 5/325 TABLET 1 TAB PO (09:53)
--- NOTE | 2024-04-08 10:52 | MHC.CM.PN ---
EMR reviewed. Per MD rounds patient not medically cleared for dc. CM will continue to follow.
[2024-04-08 11:26] LABS: Glucose, Whole Blood 123 mg/dL (60-115)
[2024-04-08] MEDS: Gabapentin 100 MG CAPSULE PO (14:14)
[2024-04-08 15:42] VITALS: BP 117/61; PULSE 64; RESP 18; TEMP 35.9; O2SAT 96
[2024-04-08 15:59] LABS: Glucose, Whole Blood 152 mg/dL (60-115)
[2024-04-08] MEDS: Midodrine HCl 10 MG TABLET PO (16:19)
--- NOTE | 2024-04-08 17:04 | P.PNIM_ITS ---
Subjective Subjective Date of Service: 04/08/24 Interval History: right lower extremity cellulitis Review of Systems lower leg erythema similar ,has some swelling some pain Physical Exam 2 Vital Signs: Vital Signs: Last Vital Signs Temp 96.6 F L 04/08/24 15:42 Pulse 64 04/08/24 15:42 Resp 18 04/08/24 15:42 BP 117/61 04/08/24 15:42 Pulse Ox 96 04/08/24 15:42 O2 Del Method Room Air 04/08/24 15:42 BMI result Body Mass Index 34.2 Appearance: Alert.? Oriented X3.? cvs: rrr, [id number] , no murmur res: clear to auscultation ,no rhonchii or wheezing abd: no rebound or guarding ,nt, bs present. ext pulses present , no cyanosis. right lower ext-some erythema /swelling ,some flactulace neuro: axo3 , nonfocal. Objective Data Active Medications Acetaminophen (Acetaminophen 325 Mg Tablet) 975 mg PO Q6H PRN PRN Reason: Pain, Mild (Pain Scale 1-3), fever or headache Hydrocodone Bitart/Acetaminophen (Hydrocodone Bit/Acetam 5/325 Tablet) 1 tab PO BID PRN PRN Reason: Pain, Severe (Pain Scale 7-10) Last Admin: 04/08/24 09:53 Dose: 1 tab Documented By: KATE Apixaban (Apixaban 5 Mg Tablet) 5 mg PO BID [facility] Last Admin: 04/08/24 07:40 Dose: 5 mg Documented By: KATE Aspirin (Aspirin Enteric Coated 81 Mg Tablet.) 81 mg PO DAILY [facility] Last Admin: 04/08/24 07:40 Dose: 81 mg Documented By: KATE Atorvastatin Calcium (Atorvastatin Calcium 80 Mg Tablet) 80 mg PO BEDTIME [facility] Last Admin: 04/07/24 21:45 Dose: 80 mg Documented By: MACIEL Calcium Carbonate (Calcium Carbonate 750 Mg Tab.Chew) 750 mg PO Q4H PRN PRN Reason: Heartburn Cholestyramine Resin (Cholestyramine (With Sugar) 4 Gm Powd.Pack) 4 gm PO BID PRN PRN Reason: Diarrhea Cyanocobalamin (Cyanocobalamin (Vitamin B-12) 500 Mcg Tablet) 500 mcg PO DAILY [facility] Last Admin: 04/08/24 07:40 Dose: 500 mcg Documented By: KATE Diphenoxylate HCl/Atropine (Diphenoxylate/Atrop 2.5/0.025 Tablet) 2 tab PO TID PRN PRN Reason: Diarrhea Doxazosin Mesylate (Doxazosin Mesylate 2 Mg Tablet) 4 mg PO BEDTIME [facility] Last Admin: 04/07/24 21:44 Dose: 4 mg Documented By: MACIEL Empagliflozin (Empagliflozin 25 Mg Tablet) 25 mg PO DAILY [facility] Last Admin: 04/08/24 07:40 Dose: 25 mg Documented By: KATE Ferrous Sulfate (Ferrous Sulfate 324 Mg Tablet.) 324 mg PO DAILY [facility] Last Admin: 04/08/24 07:40 Dose: 324 mg Documented By: KATE Finasteride (Finasteride 5 Mg Tablet) 5 mg PO DAILY [facility] Last Admin: 04/08/24 07:39 Dose: 5 mg Documented By: KATE Gabapentin (Gabapentin 100 Mg Capsule) 100 mg PO TID PRN PRN Reason: NEUROPATHY Last Admin: 04/08/24 14:14 Dose: 100 mg Documented By: KATE Glucose (Glucose Gel 15 Gm Gel..Gram.) 15 gm PO Q15M PRN; Protocol PRN Reason: per Hypoglycemia Standing Ord. Piperacillin Sod/Tazobactam (Sod 3.375 gm/ Sodium Chloride) 50 mls @ 100 mls/hr IV Q6H [facility] Last Infusion: 04/08/24 13:10 Dose: Infused Documented By: KATE Dextrose (D10) 250 mls @ 750 mls/hr IV Q15M PRN; Protocol PRN Reason: per Hypoglycemia Standing Ord. Vancomycin HCl 1,500 mg/ (Sodium Chloride) 500 mls @ 333.333 mls/hr IV Q24H [facility] Last Infusion: 04/07/24 19:56 Dose: Infused Documented By: MACIEL Insulin Glargine (Insulin Glargine,Hum.Rec.Anlog 100 Unit/Ml 10 Ml Vial) 28 unit SUBCUT BID [facility] Last Admin: 04/08/24 08:01 Dose: Not Given Documented By: KATE Non-Admin Reason: Patient Refused Insulin Human Lispro (Insulin Lispro 100 Unit/Ml 3 Ml Vial) 0 unit SUBCUT QIDACHS [facility]; Protocol Last Admin: 04/08/24 16:14 Dose: Not Given Documented By: KATE Non-Admin Reason: Patient Refused Magnesium Hydroxide (Milk Of Magnesia 30 Ml Oral.Susp) 30 ml PO DAILY PRN PRN Reason: Constipation Magnesium Oxide (Magnesium Oxide 400 Mg Tablet) 400 mg PO BID@0900,1700 [facility] Last Admin: 04/08/24 16:19 Dose: 400 mg Documented By: KATE Melatonin (Melatonin 3 Mg Tablet) 6 mg PO BEDTIME PRN PRN Reason: Insomnia Metoprolol Tartrate (Metoprolol Tartrate 12.5 Mg Halftab) 12.5 mg PO BID [facility]; Protocol Last Admin: 04/08/24 07:40 Dose: 12.5 mg Documented By: KATE Midodrine (Midodrine Hcl 10 Mg Tablet) 10 mg PO BID@0900,1700 [facility] Last Admin: 04/08/24 16:19 Dose: 10 mg Documented By: KATE Neomycin/Polymyxin/Bacitracin (Neomy/Polymyx/Bacit/Ointment 1 Each Oint.Pack) 1 appl TOPICAL BID [facility]; Protocol Last Admin: 04/08/24 07:40 Dose: 1 appl Documented By: KATE Omeprazole (Omeprazole 20 Mg Capsule.Dr) 20 mg PO DAILY@0630 [facility] Last Admin: 04/08/24 05:17 Dose: 20 mg Documented By: MACIEL Oxycodone HCl (Oxycodone Hcl Immed Release 5 Mg Tablet) 5 mg PO Q3H PRN PRN Reason: Pain, Moderate(Pain Scale 4-6) Last Admin: 04/06/24 20:18 Dose: 5 mg Documented By: MACIEL Pharmacy Consult (Consult Rx Vancomycin Dosing) 1 each MISCELLANE DAILY PRN PRN Reason: Consult order Polyethylene Glycol (Polyethylene Glycol 3350 17 Gm Powd.Pack) 17 gm PO DAILY PRN PRN Reason: Constipation Last Admin: 04/07/24 17:39 Dose: 17 gm Documented By: KATE Sodium Chloride (0.9 % Sodium Chloride Flush 3 Ml Syringe) [facility] Last Admin: 04/08/24 14:15 Dose: 3 ml Documented By: KATE Vitamin D (Cholecalciferol (Vitamin D3) 25 Mcg Tablet) 25 mcg PO DAILY [facility] Last Admin: 04/08/24 07:40 Dose: 25 mcg Documented By: KATE Labs 04/06/24 05:21 04/08/24 05:17 Labs: Laboratory Results - last 24 hr 04/07/24 04/07/24 04/08/24 17:12 20:00 05:17 Estim Creat Clear Calc 59.4 Estimated GFR 53 POC Glucose 156 H Random Vancomycin 11.1 L 04/08/24 04/08/24 04/08/24 07:42 11:20 15:53 Estim Creat Clear Calc Estimated GFR POC Glucose 108 123 H 152 H Random Vancomycin Microbiology Microbiology Results: Microbiology 04/07/24 Unknown Gram Stain - Final Leg Right Routine Culture - Preliminary Staphylococcus aureus Anaerobic Culture - Preliminary Culture in progress. Assessment and Plan (1) Cellulitis of leg, right: Status: Acute Plan 73-year-old male with chronic kidney disease stage 3, insulin-dependent diabetes, h/o dvt on eliquis, CVA and a history of osteomyelitis of the left great toe to be observed for cellulitis RLE Acute cellulitis RLE possible associtated with dm, failed outpt keflex. Has hx of rapidly progressing cellulitis of same area failing outpt abx and requiring iv abx us soft tissue - possible shows ? collection (possible abcess ) IR to drain and cultures-grew (prelimnary-staph aureus) esr 32, crp 4 No leukocytosis, fevers. No sepsis plan: continue vanco /zosyn (initiated 04/05). moniter vanco trough 11 added surgery eval. 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 Quality Stroke Does the patient have a stroke diagnosis?: No VTE Prior VTE?: No VTE Risk Level:: Medical - moderate - high VTE Device Contraindication: Treatment Not Indicated VTE Drug Contraindication: N/A - Med Ordered
--- NOTE | 2024-04-08 17:27 | P.CDIM_ITS ---
PROVIDER RESPONSE TEXT: To clarify, the appropriate diagnosis supported by the clinical indicators: Yes, Cellulitis right leg is related to / associated with / due to Diabetes Mellitus QUERY TEXT: PHYSICIAN'S DOCUMENTATION REQUEST Date of Query: 04/08/2024 10:46 AM EDT Patient Name: Kirby Christianson Admit Date: 04/05/2024 Dear Rah Jay MD, A review of the medical record indicates additional documentation may be needed. Please review below and update the documentation accordingly. Documentation includes the conditions of Cellulitis right leg and Diabetes Mellitus. Treated with IV Vancomycin and IV Piperacillin/Tazobactam Please clarify the relationship between these conditions: Yes, Cellulitis right leg is related to / associated with / due to Diabetes Mellitus No, Cellulitis right leg is not related to / associated with / due to Diabetes Mellitus Other (explain) Clinically unable to determine (explain) Thank you, Anabell Maya RN Use of terms such as suspected, likely, concern for, or probable (associated with a specific diagnosi s that is being evaluated, monitored, or treated as if it exists) are acceptable and can be coded in the inpatient se tting, when documented at the time of discharge. Please use your independent medical judgment in providing your response. THIS QUERY IS PART OF THE PERMANENT MEDICAL RECORD
[2024-04-08] MEDS: vancomycin HCL 1,500 MG in 0.9 % Sodium Chloride 500 ML 333.33 MG IV (18:17)
[2024-04-08 19:57] VITALS: BP 140/66; PULSE 67; RESP 18; TEMP 36.2; O2SAT 98
[2024-04-08 19:57] LABS: Glucose, Whole Blood 216 mg/dL (60-115)
[2024-04-08] MEDS: Atorvastatin Calcium 80 MG TABLET PO (20:31)
[2024-04-08] MEDS: Doxazosin Mesylate 2 MG TABLET 4 MG PO (20:31)
[2024-04-08] MEDS: Insulin Lispro 100 UNIT/ML 3 ML VIAL SUBCUT (20:32)
[2024-04-08] MEDS: Insulin Glargine,Hum.rec.anlog 100 UNIT/ML 10 ML VIAL 28 UNIT SUBCUT (20:33)
[2024-04-09 03:36] VITALS: BP 127/58; PULSE 74; RESP 18; TEMP 36.2; O2SAT 94
[2024-04-09] MEDS: Omeprazole 20 MG CAPSULE.DR PO (06:09)
[2024-04-09] MEDS: Piperacillin Sodium/Tazobactam 3.375 GM in 0.9 % Sodium Chloride 50 ML IV ×3 (06:09→18:02)
[2024-04-09 06:33] LABS: Creatinine Clr Calc Pharmacy 52.2; Estimated Glomerular Filt Rate 46
[2024-04-09 07:25] VITALS: BP 107/53; PULSE 62; RESP 18; TEMP 36; O2SAT 93
[2024-04-09 07:27] LABS: Glucose, Whole Blood 201 mg/dL (60-115)
[2024-04-09] MEDS: Insulin Lispro 100 UNIT/ML 3 ML VIAL SUBCUT ×3 (07:40→21:22)
[2024-04-09] MEDS: Insulin Glargine,Hum.rec.anlog 100 UNIT/ML 10 ML VIAL 28 UNIT SUBCUT ×2 (07:40→21:21)
[2024-04-09] MEDS: Ferrous Sulfate 324 MG TABLET.DR PO (07:41)
[2024-04-09] MEDS: Magnesium Oxide 400 MG TABLET PO ×2 (07:41→16:54)
[2024-04-09] MEDS: Metoprolol Tartrate 12.5 MG HALFTAB PO ×2 (07:41→21:14)
[2024-04-09] MEDS: Finasteride 5 MG TABLET PO (07:41)
[2024-04-09] MEDS: Cholecalciferol (Vitamin D3) 25 MCG TABLET PO (07:41)
[2024-04-09] MEDS: Midodrine HCl 10 MG TABLET PO (07:42)
[2024-04-09] MEDS: Empagliflozin 25 MG TABLET PO (07:42)
[2024-04-09] MEDS: Apixaban 5 MG TABLET PO ×2 (07:42→21:15)
[2024-04-09] MEDS: Aspirin Enteric Coated 81 MG TABLET.DR PO (07:42)
[2024-04-09] MEDS: Cyanocobalamin (Vitamin B-12) 500 MCG TABLET PO (07:42)
[2024-04-09] MEDS: 0.9 % Sodium Chloride Flush 3 ML SYRINGE IVFLUSH ×3 (07:43→21:24)
[2024-04-09 09:01] LABS: Hematocrit 38.4 % (42.0-52.0); Hemoglobin 13.2 g/dl (14.0-18.0); Mean Corpuscular HGB Conc 34.4 g/dl (31.0-36.0); Mean Corpuscular Hemoglobin 29.9 pg (27.0-33.0); Mean Corpuscular Volume 86.9 fL (80.0-98.0); Mean Platelet Volume 10.6 fL (9.4-12.4); Platelet Count 235 X10*3/uL (160-400); Red Blood Count 4.42 X10*6/uL (4.60-5.80); Red Cell Distribution Width 13.2 % (11.0-16.0); White Blood Count 5.7 X10*3/uL (4.8-10.8)
[2024-04-09 09:15] LABS: C Reactive Protein 3.75 mg/dL (< or = 0.50)
[2024-04-09] MEDS: Doxycycline Hyclate 100 MG in 0.9 % Sodium Chloride 250 ML 166.67 MG IV ×2 (09:22→21:15)
[2024-04-09 09:35] LABS: Erythrocyte Sedimentation Rate 51 MM/HR (0-15)
--- NOTE | 2024-04-09 10:00 | P.CONGS_ITS ---
History of Present Illness Consult details Consult date: 04/09/24 Requesting physician: Rah Jay Narrative: 73-year-old male with chronic kidney disease stage 3, insulin-dependent diabetes, h/o dvt on eliquis, CVA and who presented to the ED for evaluation of his right lower extremity. He was hospitalized last month for cellulitis RLE requiring IV vanc/zosyn. He completed a course of PO augmentin and doxy with full resolution. His symptoms however recurred early last week with faint redness of the R ankle. He was seen by his PCP who prescribed Keflex but his redness continued to worsena long with with warmth and swelling. He was admitted to the hospitalist service for further treatment of the right lower leg cellulitis. He had an ultrasound which showed heterogeneous somewhat ill-defined fluid collection in the subcutaneous tissue and he underwent IR aspiration on 04/07. He however has not had significant improvement in the cellulitis and therefore general surgery was consulted. He denies trauma to the area, bug bites. He thinks the swelling has improved somewhat but the redness and pain persist. Review of Systems 2 Constitutional: Constitutional: Denies chills and Denies fever(s) ENT: Denies dizziness Cardiovascular: Cardiovascular: Denies chest pain and Denies dyspnea Respiratory: Respiratory: Denies cough and Denies dyspnea Musculoskeletal: Musculoskeletal: Denies numbness Integumentary/Breasts: Skin/Breast: Reports as per HPI Neurologic: Denies dizziness and Denies numbness PMFSH Past Medical History Medical History Osteomyelitis CVA (cerebral vascular accident) DVT (deep venous thrombosis) BPH (benign prostatic hyperplasia) Frequency-urgency syndrome Subacute osteomyelitis of right foot Enlarged prostate without lower urinary tract symptoms (luts) History of elevated PSA Surgical History Surgical History History of surgery Social History Social History Household Members: Family Housing: House Do you presently have visiting nurse or other home services: Yes Alcohol intake: never Patient Tobacco Use Status: Never used Tobacco Smoked in Last 30 Days: No Second Hand Smoke Exposure: No Use of substances other than those prescribed or required for medical reasons: No Currently Displaying Signs/Symptoms of Drug Intoxication Withdrawal: No Have you been hit, kicked, punched, or otherwise hurt by someone within the past year? If so, by whom?: No Do you feel safe in your current relationship?: Yes Is there a partner from a previous relationship who is making you feel unsafe now?: No Are you made to feel afraid or neglected: No Advance Directives: No Advance Directives Information Provided: Yes Do you have a plan to hurt others: No Plan Recently lost weight without trying: No Eating poorly because of decreased appetite: No Nutrition Risks: No Nutritional Risk Poor oral hygiene: No service: No Meds Allergies Allergy/AdvReac Type Severity Reaction Status Date / Time almond [ALMONDS] Allergy Severe THROAT Verified 04/05/24 09:36 CLOSES pecan nut [PECAN] Allergy Severe THROAT Verified 04/05/24 09:36 CLOSES Active Medications: Current Medications Acetaminophen (Acetaminophen 325 Mg Tablet) 975 mg PO Q6H PRN PRN Reason: Pain, Mild (Pain Scale 1-3), fever or headache Hydrocodone Bitart/Acetaminophen (Hydrocodone Bit/Acetam 5/325 Tablet) 1 tab PO BID PRN PRN Reason: Pain, Severe (Pain Scale 7-10) Last Admin: 04/08/24 09:53 Dose: 1 tab Apixaban (Apixaban 5 Mg Tablet) 5 mg PO BID [facility] Last Admin: 04/09/24 07:42 Dose: 5 mg Aspirin (Aspirin Enteric Coated 81 Mg Tablet.) 81 mg PO DAILY [facility] Last Admin: 04/09/24 07:42 Dose: 81 mg Atorvastatin Calcium (Atorvastatin Calcium 80 Mg Tablet) 80 mg PO BEDTIME [facility] Last Admin: 04/08/24 20:31 Dose: 80 mg Calcium Carbonate (Calcium Carbonate 750 Mg Tab.Chew) 750 mg PO Q4H PRN PRN Reason: Heartburn Cholestyramine Resin (Cholestyramine (With Sugar) 4 Gm Powd.Pack) 4 gm PO BID PRN PRN Reason: Diarrhea Cyanocobalamin (Cyanocobalamin (Vitamin B-12) 500 Mcg Tablet) 500 mcg PO DAILY [facility] Last Admin: 04/09/24 07:42 Dose: 500 mcg Diphenoxylate HCl/Atropine (Diphenoxylate/Atrop 2.5/0.025 Tablet) 2 tab PO TID PRN PRN Reason: Diarrhea Doxazosin Mesylate (Doxazosin Mesylate 2 Mg Tablet) 4 mg PO BEDTIME [facility] Last Admin: 04/08/24 20:31 Dose: 4 mg Empagliflozin (Empagliflozin 25 Mg Tablet) 25 mg PO DAILY [facility] Last Admin: 04/09/24 07:42 Dose: 25 mg Ferrous Sulfate (Ferrous Sulfate 324 Mg Tablet.Dr) 324 mg PO DAILY [facility] Last Admin: 04/09/24 07:41 Dose: 324 mg Finasteride (Finasteride 5 Mg Tablet) 5 mg PO DAILY [facility] Last Admin: 04/09/24 07:41 Dose: 5 mg Gabapentin (Gabapentin 100 Mg Capsule) 100 mg PO TID PRN PRN Reason: NEUROPATHY Last Admin: 04/08/24 14:14 Dose: 100 mg Glucose (Glucose Gel 15 Gm Gel..Gram.) 15 gm PO Q15M PRN; Protocol PRN Reason: per Hypoglycemia Standing Ord. Piperacillin Sod/Tazobactam (Sod 3.375 gm/ Sodium Chloride) 50 mls @ 100 mls/hr IV Q6H [facility] Last Infusion: 04/09/24 06:51 Dose: Infused Dextrose (D10) 250 mls @ 750 mls/hr IV Q15M PRN; Protocol PRN Reason: per Hypoglycemia Standing Ord. Doxycycline Hyclate 100 mg/ (Sodium Chloride) 250 mls @ 166.67 mls/hr IV BID [facility] Last Admin: 04/09/24 09:22 Dose: 166.67 mls/hr Insulin Glargine (Insulin Glargine,Hum.Rec.Anlog 100 Unit/Ml 10 Ml Vial) 28 unit SUBCUT BID [facility] Last Admin: 04/09/24 07:40 Dose: 28 unit Insulin Human Lispro (Insulin Lispro 100 Unit/Ml 3 Ml Vial) 0 unit SUBCUT QIDACHS [facility]; Protocol Last Admin: 04/09/24 07:40 Dose: 4 unit Magnesium Hydroxide (Milk Of Magnesia 30 Ml Oral.Susp) 30 ml PO DAILY PRN PRN Reason: Constipation Magnesium Oxide (Magnesium Oxide 400 Mg Tablet) 400 mg PO BID@0900,1700 [facility] Last Admin: 04/09/24 07:41 Dose: 400 mg Melatonin (Melatonin 3 Mg Tablet) 6 mg PO BEDTIME PRN PRN Reason: Insomnia Metoprolol Tartrate (Metoprolol Tartrate 12.5 Mg Halftab) 12.5 mg PO BID [facility]; Protocol Last Admin: 04/09/24 07:41 Dose: 12.5 mg Midodrine (Midodrine Hcl 10 Mg Tablet) 10 mg PO BID@0900,1700 [facility] Last Admin: 04/09/24 07:42 Dose: 10 mg Neomycin/Polymyxin/Bacitracin (Neomy/Polymyx/Bacit/Ointment 1 Each Oint.Pack) 1 appl TOPICAL BID [facility]; Protocol Last Admin: 04/09/24 07:41 Dose: 1 appl Omeprazole (Omeprazole 20 Mg Capsule.Dr) 20 mg PO DAILY@0630 [facility] Last Admin: 04/09/24 06:09 Dose: 20 mg Oxycodone HCl (Oxycodone Hcl Immed Release 5 Mg Tablet) 5 mg PO Q3H PRN PRN Reason: Pain, Moderate(Pain Scale 4-6) Last Admin: 04/06/24 20:18 Dose: 5 mg Polyethylene Glycol (Polyethylene Glycol 3350 17 Gm Powd.Pack) 17 gm PO DAILY PRN PRN Reason: Constipation Last Admin: 04/07/24 17:39 Dose: 17 gm Sodium Chloride (0.9 % Sodium Chloride Flush 3 Ml Syringe) 3 ml IVFLUSH QSHIFT [facility] Last Admin: 04/09/24 07:43 Dose: 3 ml Vitamin D (Cholecalciferol (Vitamin D3) 25 Mcg Tablet) 25 mcg PO DAILY [facility] Last Admin: 04/09/24 07:41 Dose: 25 mcg Home Medications ?Medication ?Instructions ?Recorded ?Confirmed ?Last Taken ?Type apixaban 5 mg tablet 5 mg PO BID 08/05/20 04/05/24 04/04/24 History metoprolol tartrate 25 mg tablet 12.5 mg PO BID 08/05/20 04/05/24 03/01/24 09:00 History pantoprazole 40 mg tablet,delayed 40 mg PO DAILY@0630 08/05/20 04/05/24 03/01/24 07:00 History release empagliflozin 25 mg tablet 25 mg PO DAILY 05/05/21 04/05/24 03/01/24 09:00 History (Jardiance) gabapentin 100 mg capsule 100 mg PO TID PRN NEUROPATHY 05/05/21 04/05/24 Unknown History magnesium oxide 400 mg (241.3 mg 400 mg PO BID@0900,1700 07/11/21 04/05/24 03/01/24 09:00 History magnesium) tablet ferrous sulfate 325 mg (65 mg 325 mg PO DAILY 08/31/22 04/05/24 03/01/24 09:00 History iron) tablet (FeroSul) midodrine 10 mg tablet 10 mg PO BID@0900,1700 08/31/22 04/05/24 03/01/24 09:00 History pen needle, diabetic 31 gauge x #50 ea 08/31/22 03/01/24 Unknown History 11/29 (Easy Touch) rosuvastatin 40 mg tablet 40 mg PO BEDTIME 08/31/22 04/05/24 Unknown History insulin glargine 100 unit/mL (3 38 unit subcut BID 12/05/22 04/05/24 04/05/24 History mL) subcutaneous pen (Lantus Solostar U-100 Insulin) cholecalciferol (vitamin D3) 25 25 mcg PO DAILY 03/01/24 04/05/24 03/01/24 09:00 History mcg (1,000 unit) tablet (Vitamin D3) cyanocobalamin (vitamin B-12) 500 500 mcg PO DAILY 03/01/24 04/05/24 03/01/24 09:00 History mcg tablet diphenoxylate-atropine 2.5 2 tab PO TID PRN Diarrhea 03/01/24 04/05/24 Unknown History mg-0.025 mg tablet finasteride 5 mg tablet 5 mg PO DAILY 03/01/24 04/05/24 03/01/24 09:00 History hydrocodone 5 mg-acetaminophen 300 1 tab PO BID PRN Pain 03/01/24 04/05/24 Unknown History mg tablet insulin aspart U-100 100 unit/mL 30 unit subcut TID 03/01/24 04/05/24 04/05/24 History subcutaneous solution (Novolog U-100 Insulin aspart) polyethylene glycol 3350 17 gram 17 g PO DAILY PRN Constipation 03/01/24 04/05/24 Unknown History oral powder packet aspirin 81 mg tablet,delayed 81 mg PO DAILY 04/05/24 04/05/24 Unknown History release cephalexin 500 mg capsule 500 mg PO QID 04/05/24 04/05/24 04/05/24 History cholestyramine (with sugar) 4 gram 4 g PO BID PRN Diarrhea 04/05/24 04/05/24 Unknown History powder for susp in a packet neomycin-bacitracn Zn-polymyxn 3.5 1 appl topical QD-BID 04/05/24 04/05/24 Unknown History mg-400 unit-5,000 unit top oint pkt (Triple Antibiotic) Physical Exam 2 Vital Signs: Vital Signs: Last Vital Signs Temp 96.8 F 04/09/24 07:25 Pulse 62 04/09/24 07:25 Resp 18 04/09/24 07:25 BP 107/53 L 04/09/24 07:25 Pulse Ox 93 04/09/24 07:25 O2 Del Method Room Air 04/09/24 07:25 BMI result Body Mass Index 34.2 Const: General: comfortable, no acute distress and alert O rientation/consciousness: patient oriented x3 Resp: Effort & Inspection: normal respiratory effort Cardio: Rate: regular rate Neuro: General: patient oriented x3 and moves all extremities Extrem: Other: right lower extremity, lateral aspect- deep erythema beginning at distal lower leg extending to just proximal of foot, mild edema, moderate area of fluctuance measuring 6cm x 4cm and surrounding bogginess just inferior to the lateral malleolus, small bulla noted Results Labs 04/09/24 08:39 04/09/24 05:51 Labs: Abnormal lab results 04/08/24 04/08/24 04/08/24 Range/Units 11:20 15:53 19:54 RBC (4.60-5.80) X10*6/uL Hgb (14.0-18.0) g/dl Hct (42.0-52.0) % ESR (0-15) MM/HR Creatinine (0.5-1.4) mg/dL POC Glucose 123 H 152 H 216 H (60-115) mg/dL C-Reactive Protein (< or = 0.50) mg/dL 04/09/24 04/09/24 04/09/24 Range/Units 05:51 07:19 08:39 RBC 4.42 L (4.60-5.80) X10*6/uL Hgb 13.2 L (14.0-18.0) g/dl Hct 38.4 L (42.0-52.0) % ESR 51 H (0-15) MM/HR Creatinine 1.50 H (0.5-1.4) mg/dL POC Glucose 201 H (60-115) mg/dL C-Reactive Protein 3.75 H (< or = 0.50) mg/dL Short CBC 04/09/24 Range/Units 08:39 WBC 5.7 (4.8-10.8) X10*3/uL Hgb 13.2 L (14.0-18.0) g/dl Hct 38.4 L (42.0-52.0) % Plt Count 235 (160-400) X10*3/uL BMP 04/09/24 05:51 Creatinine 1.50 H All other labs normal. Assessment and Plan (1) Cellulitis of leg, right: Status: Acute Plan 73-year-old male with chronic kidney disease stage 3, insulin-dependent diabetes, h/o dvt on eliquis, CVA and who was admitted with recurrent RLE cellulitis. Underwent US guided aspiration of the fluid collection. He however has had no significant improvement following with a moderate fluctuant collection suggestive of an abscess. Would benefit from I&D of this collection. Will return later today to perform at bedside. Cont IV abx, RLE elevation. Patient comfortable with plan. Procedures Date of Service Date of Service: 04/09/24
[2024-04-09] MEDS: Gabapentin 100 MG CAPSULE PO (10:07)
[2024-04-09 11:18] LABS: Glucose, Whole Blood 167 mg/dL (60-115)
--- NOTE | 2024-04-09 13:33 | PM.PROC ---
Brief Operative Note Date of procedure: 04/09/24 Pre-op diagnosis: Right lower leg cellulitis and fluid collection Post-op diagnosis: same Procedure: Patient was placed in left lateral position. The site of procedure was confirmed by the patient. After assuring informed consent, the skin was prepped with Betadine. 10cc 1% lidocaine was then infiltrated over the area of the fluctuance. An incision was made with an 11 blade measuring approximately 3 cm overlying the same location. This was deepened into the subcutaneous tissue. A pocket was identified and a large amount of dark sangineous fluid was evacuated suggestive of hematoma. The area was then probed with a qtip and digitally to ensure any loculations were broken up and the entire collection was drained. No further fluctuance was appreciated. Pressure was held with sterile gauze until hemostasis ensured. The area was packed with 1/2in plain packing and dressed with fluffs and kerlix wrap. The patient tolerated the procedure very well. Anesthesia: local Surgeon: Lenore Cassidy Estimated blood loss (mL): 5 Condition: stable Disposition: no change (med/surg floor)
--- NOTE | 2024-04-09 14:16 | HO.PM.IMPN ---
Subjective Subjective Date of Service: 04/09/24 Interval History: right lower ext cellulitis/fluid collection oral lesions painful Review of Systems leg area seems similar. Physical Exam Vital Signs: Vital Signs: Last Vital Signs Temp 96.8 F 04/09/24 07:25 Pulse 62 04/09/24 07:25 Resp 18 04/09/24 07:25 BP 107/53 L 04/09/24 07:25 Pulse Ox 93 04/09/24 07:25 O2 Del Method Room Air 04/09/24 07:25 BMI result Body Mass Index 34.2 Appearance: Alert.? Oriented X3.? HEENT:oral mucosa -mild small vesicular lesions inside lips . cvs: rrr, [id number] . res: clear to auscultation ,no rhonchii or wheezing abd: no rebound or guarding ,nt, bs present. ext pulses present , no cyanosis . neuro: axo3 , nonfocal. Objective Data Active Medications Acetaminophen (Acetaminophen 325 Mg Tablet) 975 mg PO Q6H PRN PRN Reason: Pain, Mild (Pain Scale 1-3), fever or headache Hydrocodone Bitart/Acetaminophen (Hydrocodone Bit/Acetam 5/325 Tablet) 1 tab PO BID PRN PRN Reason: Pain, Severe (Pain Scale 7-10) Last Admin: 04/08/24 09:53 Dose: 1 tab Documented By: KATE Apixaban (Apixaban 5 Mg Tablet) 5 mg PO BID [facility] Last Admin: 04/09/24 07:42 Dose: 5 mg Documented By: KATE Aspirin (Aspirin Enteric Coated 81 Mg Tablet.) 81 mg PO DAILY [facility] Last Admin: 04/09/24 07:42 Dose: 81 mg Documented By: KATE Atorvastatin Calcium (Atorvastatin Calcium 80 Mg Tablet) 80 mg PO BEDTIME [facility] Last Admin: 04/08/24 20:31 Dose: 80 mg Documented By: TUMASY Calcium Carbonate (Calcium Carbonate 750 Mg Tab.Chew) 750 mg PO Q4H PRN PRN Reason: Heartburn Cholestyramine Resin (Cholestyramine (With Sugar) 4 Gm Powd.Pack) 4 gm PO BID PRN PRN Reason: Diarrhea Cyanocobalamin (Cyanocobalamin (Vitamin B-12) 500 Mcg Tablet) 500 mcg PO DAILY [facility] Last Admin: 04/09/24 07:42 Dose: 500 mcg Documented By: KATE Diphenoxylate HCl/Atropine (Diphenoxylate/Atrop 2.5/0.025 Tablet) 2 tab PO TID PRN PRN Reason: Diarrhea Doxazosin Mesylate (Doxazosin Mesylate 2 Mg Tablet) 4 mg PO BEDTIME [facility] Last Admin: 04/08/24 20:31 Dose: 4 mg Documented By: MIKE Empagliflozin (Empagliflozin 25 Mg Tablet) 25 mg PO DAILY [facility] Last Admin: 04/09/24 07:42 Dose: 25 mg Documented By: KATE Ferrous Sulfate (Ferrous Sulfate 324 Mg Tablet.) 324 mg PO DAILY [facility] Last Admin: 04/09/24 07:41 Dose: 324 mg Documented By: KATE Finasteride (Finasteride 5 Mg Tablet) 5 mg PO DAILY [facility] Last Admin: 04/09/24 07:41 Dose: 5 mg Documented By: KATE Gabapentin (Gabapentin 100 Mg Capsule) 100 mg PO TID PRN PRN Reason: NEUROPATHY Last Admin: 04/09/24 10:07 Dose: 100 mg Documented By: KATE Glucose (Glucose Gel 15 Gm Gel..Gram.) 15 gm PO Q15M PRN; Protocol PRN Reason: per Hypoglycemia Standing Ord. Piperacillin Sod/Tazobactam (Sod 3.375 gm/ Sodium Chloride) 50 mls @ 100 mls/hr IV Q6H [facility] Last Infusion: 04/09/24 12:51 Dose: Infused Documented By: KATE Dextrose (D10) 250 mls @ 750 mls/hr IV Q15M PRN; Protocol PRN Reason: per Hypoglycemia Standing Ord. Doxycycline Hyclate 100 mg/ (Sodium Chloride) 250 mls @ 166.67 mls/hr IV BID [facility] Last Infusion: 04/09/24 10:56 Dose: Infused Documented By: KATE Insulin Glargine (Insulin Glargine,Hum.Rec.Anlog 100 Unit/Ml 10 Ml Vial) 28 unit SUBCUT BID [facility] Last Admin: 04/09/24 07:40 Dose: 28 unit Documented By: KATE Insulin Human Lispro (Insulin Lispro 100 Unit/Ml 3 Ml Vial) 0 unit SUBCUT QIDACHS [facility]; Protocol Last Admin: 04/09/24 11:46 Dose: 2 unit Documented By: KATE Magnesium Hydroxide (Milk Of Magnesia 30 Ml Oral.Susp) 30 ml PO DAILY PRN PRN Reason: Constipation Magnesium Oxide (Magnesium Oxide 400 Mg Tablet) 400 mg PO BID@0900,1700 [facility] Last Admin: 04/09/24 07:41 Dose: 400 mg Documented By: KATE Melatonin (Melatonin 3 Mg Tablet) 6 mg PO BEDTIME PRN PRN Reason: Insomnia Metoprolol Tartrate (Metoprolol Tartrate 12.5 Mg Halftab) 12.5 mg PO BID [facility]; Protocol Last Admin: 04/09/24 07:41 Dose: 12.5 mg Documented By: KATE Midodrine (Midodrine Hcl 10 Mg Tablet) 10 mg PO BID@0900,1700 [facility] Last Admin: 04/09/24 07:42 Dose: 10 mg Documented By: KATE Neomycin/Polymyxin/Bacitracin (Neomy/Polymyx/Bacit/Ointment 1 Each Oint.Pack) 1 appl TOPICAL BID [facility]; Protocol Last Admin: 04/09/24 07:41 Dose: 1 appl Documented By: KATE Omeprazole (Omeprazole 20 Mg Capsule.Dr) 20 mg PO DAILY@0630 [facility] Last Admin: 04/09/24 06:09 Dose: 20 mg Documented By: MIKE Oxycodone HCl (Oxycodone Hcl Immed Release 5 Mg Tablet) 5 mg PO Q3H PRN PRN Reason: Pain, Moderate(Pain Scale 4-6) Last Admin: 04/06/24 20:18 Dose: 5 mg Documented By: MACIEL Polyethylene Glycol (Polyethylene Glycol 3350 17 Gm Powd.Pack) 17 gm PO DAILY PRN PRN Reason: Constipation Last Admin: 04/07/24 17:39 Dose: 17 gm Documented By: KATE Sodium Chloride (0.9 % Sodium Chloride Flush 3 Ml Syringe) 3 ml IVFLUSH QSHIFT [facility] Last Admin: 04/09/24 07:43 Dose: 3 ml Documented By: KATE Vitamin D (Cholecalciferol (Vitamin D3) 25 Mcg Tablet) 25 mcg PO DAILY [facility] Last Admin: 04/09/24 07:41 Dose: 25 mcg Documented By: KATE Labs 04/09/24 08:39 07/25/24 05:51 Labs: Laboratory Results - last 24 hr 04/08/24 04/08/24 04/09/24 15:53 19:54 05:51 MCV MCH MCHC RDW Plt Count MPV Absolute Nucleated RBC Nucleated RBC % (auto) ESR Estim Creat Clear Calc 52.2 Estimated GFR 46 POC Glucose 152 H 216 H C-Reactive Protein 04/09/24 04/09/24 04/09/24 07:19 08:39 11:11 MCV 86.9 MCH 29.9 MCHC 34.4 RDW 13.2 Plt Count 235 MPV 10.6 Absolute Nucleated RBC 0.000 Nucleated RBC % (auto) 0.0 ESR 51 H Estim Creat Clear Calc Estimated GFR POC Glucose 201 H 167 H C-Reactive Protein 3.75 H Microbiology Microbiology Results: Microbiology 04/07/24 Unknown Gram Stain - Final Leg Right Routine Culture - Final Staphylococcus aureus Anaerobic Culture - Preliminary Culture in progress. Assessment and Plan (1) Cellulitis of leg, right: Status: Acute Plan 73-year-old male with chronic kidney disease stage 3, insulin-dependent diabetes, h/o dvt on eliquis, CVA and a history of osteomyelitis of the left great toe to be observed for cellulitis RLE Acute cellulitis RLE possible associtated with dm, failed outpt keflex. Has hx of rapidly progressing cellulitis of same area failing outpt abx and requiring iv abx us soft tissue - possible shows ? collection IR to drain and cultures-grew (prelimnary-staph [id number] to doxy/clinda /oxacillin ) ,had fluid collection evacuation by surgery today look like hematoma. esr 32-51, crp 4-to 3.75 No leukocytosis, fevers. No sepsis continue doxy /zosyn plan: continue doxy(04/09)/zosyn (initiated 04/05). moniter vanco trough 11 surgery eval-s/phad fluid collection evacuation by surgery today look like hematoma . 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 Quality Stroke Does the patient have a stroke diagnosis?: No VTE Prior VTE?: No VTE Risk Level:: Medical - moderate - high VTE Device Contraindication: Treatment Not Indicated VTE Drug Contraindication: N/A - Med Ordered
[2024-04-09 15:08] VITALS: BP 149/69; PULSE 64; RESP 18; TEMP 36.3; O2SAT 95
[2024-04-09] MEDS: Mag&Al/Sim/Diphenhyd/Lidocaine 10 ML ORAL.SUSP PO (15:41)
[2024-04-09] MEDS: valACYclovir HCL 1,000 MG TABLET 1000 MG PO (15:41)
[2024-04-09 16:07] LABS: Glucose, Whole Blood 141 mg/dL (60-115)
[2024-04-09 19:20] VITALS: BP 151/68; PULSE 59; RESP 18; TEMP 36.2; O2SAT 94
[2024-04-09 20:11] LABS: Glucose, Whole Blood 177 mg/dL (60-115)
[2024-04-09 21:15] VITALS: BP 148/70
[2024-04-09] MEDS: Atorvastatin Calcium 80 MG TABLET PO (21:15)
[2024-04-09] MEDS: Doxazosin Mesylate 2 MG TABLET 4 MG PO (21:15)
[2024-04-10] MEDS: Piperacillin Sodium/Tazobactam 3.375 GM in 0.9 % Sodium Chloride 50 ML IV ×4 (00:58→17:50)
[2024-04-10 01:45] VITALS: BP 105/53; PULSE 84; RESP 18; TEMP 36.1; O2SAT 92
[2024-04-10] MEDS: valACYclovir HCL 1,000 MG TABLET 1000 MG PO ×2 (04:32→14:32)
[2024-04-10] MEDS: Omeprazole 20 MG CAPSULE.DR PO (06:21)
[2024-04-10 07:10] VITALS: BP 114/55; PULSE 81; RESP 18; TEMP 36.2; O2SAT 93
[2024-04-10] MEDS: oxyCODONE HCl Immed Release 5 MG TABLET PO (07:12)
[2024-04-10 07:21] LABS: Glucose, Whole Blood 204 mg/dL (60-115)
[2024-04-10] MEDS: polyethylene glycoL 3350 17 GM POWD.PACK PO (08:30)
[2024-04-10] MEDS: Finasteride 5 MG TABLET PO (08:31)
[2024-04-10] MEDS: Magnesium Oxide 400 MG TABLET PO ×2 (08:32→16:39)
[2024-04-10] MEDS: Metoprolol Tartrate 12.5 MG HALFTAB PO ×2 (08:32→20:55)
[2024-04-10] MEDS: Aspirin Enteric Coated 81 MG TABLET.DR PO (08:32)
[2024-04-10] MEDS: Cyanocobalamin (Vitamin B-12) 500 MCG TABLET PO (08:32)
[2024-04-10] MEDS: Apixaban 5 MG TABLET PO ×2 (08:32→20:54)
[2024-04-10] MEDS: Ferrous Sulfate 324 MG TABLET.DR PO (08:32)
[2024-04-10] MEDS: Empagliflozin 25 MG TABLET PO (08:32)
[2024-04-10] MEDS: Insulin Lispro 100 UNIT/ML 3 ML VIAL SUBCUT ×4 (08:33→20:57)
[2024-04-10] MEDS: Cholecalciferol (Vitamin D3) 25 MCG TABLET PO (08:33)
[2024-04-10] MEDS: Insulin Glargine,Hum.rec.anlog 100 UNIT/ML 10 ML VIAL 28 UNIT SUBCUT ×2 (08:33→20:55)
[2024-04-10] MEDS: Midodrine HCl 10 MG TABLET PO (08:33)
[2024-04-10] MEDS: Doxycycline Hyclate 100 MG in 0.9 % Sodium Chloride 250 ML 166.67 MG IV ×2 (08:37→20:59)
[2024-04-10] MEDS: 0.9 % Sodium Chloride Flush 3 ML SYRINGE IVFLUSH ×3 (08:38→21:00)
[2024-04-10 09:18] LABS: Anion Gap 13 (12-20); Blood Urea Nitrogen 17 mg/dL (9-16); Calcium 9.6 mg/dL (8.4-10.2); Carbon Dioxide 22 mmol/L (22-29); Chloride 107 mmol/L (96-108); Creatinine Clr Calc Pharmacy 51.5; Estimated Glomerular Filt Rate 45; Glucose Random 191 mg/dL (60-115); Potassium 4.2 mmol/L (3.3-5.1); Sodium 138 mmol/L (135-145)
--- NOTE | 2024-04-10 10:12 | P.PNGS_ITS ---
Subjective Subjective Date of Service: 04/10/24 Interval history: No complaints. Would like VNA for wound care when he goes home. Physical Exam 2 Vital Signs: Vital Signs: Last Vital Signs Temp 97.2 F 04/10/24 07:10 Pulse 81 04/10/24 07:10 Resp 18 04/10/24 07:10 BP 114/55 L 04/10/24 07:10 Pulse Ox 93 04/10/24 07:10 O2 Del Method Room Air 04/10/24 07:10 BMI result Body Mass Index 34.2 Const: General: comfortable, no acute distress and alert O rientation/consciousness: patient oriented x3 Resp: Effort & Inspection: normal respiratory effort Neuro: General: patient oriented x3 Extrem: Other: right lower extremity- significant improvement in erythema, mild persistent induration and very mild remaining edema, half of the I&D packing removed, dressing replaced Objective Data Active Medications Acetaminophen (Acetaminophen 325 Mg Tablet) 975 mg PO Q6H PRN PRN Reason: Pain, Mild (Pain Scale 1-3), fever or headache Hydrocodone Bitart/Acetaminophen (Hydrocodone Bit/Acetam 5/325 Tablet) 1 tab PO BID PRN PRN Reason: Pain, Severe (Pain Scale 7-10) Last Admin: 04/08/24 09:53 Dose: 1 tab Documented By: KATE Apixaban (Apixaban 5 Mg Tablet) 5 mg PO BID [facility] Last Admin: 04/10/24 08:32 Dose: 5 mg Documented By: NICKI Aspirin (Aspirin Enteric Coated 81 Mg Tablet.) 81 mg PO DAILY [facility] Last Admin: 04/10/24 08:32 Dose: 81 mg Documented By: NICKI Atorvastatin Calcium (Atorvastatin Calcium 80 Mg Tablet) 80 mg PO BEDTIME [facility] Last Admin: 04/09/24 21:15 Dose: 80 mg Documented By: KASIA Calcium Carbonate (Calcium Carbonate 750 Mg Tab.Chew) 750 mg PO Q4H PRN PRN Reason: Heartburn Cholestyramine Resin (Cholestyramine (With Sugar) 4 Gm Powd.Pack) 4 gm PO BID PRN PRN Reason: Diarrhea Cyanocobalamin (Cyanocobalamin (Vitamin B-12) 500 Mcg Tablet) 500 mcg PO DAILY [facility] Last Admin: 04/10/24 08:32 Dose: 500 mcg Documented By: NICKI Diphenoxylate HCl/Atropine (Diphenoxylate/Atrop 2.5/0.025 Tablet) 2 tab PO TID PRN PRN Reason: Diarrhea Doxazosin Mesylate (Doxazosin Mesylate 2 Mg Tablet) 4 mg PO BEDTIME [facility] Last Admin: 04/09/24 21:15 Dose: 4 mg Documented By: KASIA Empagliflozin (Empagliflozin 25 Mg Tablet) 25 mg PO DAILY [facility] Last Admin: 04/10/24 08:32 Dose: 25 mg Documented By: NICKI Ferrous Sulfate (Ferrous Sulfate 324 Mg Tablet.Dr) 324 mg PO DAILY [facility] Last Admin: 04/10/24 08:32 Dose: 324 mg Documented By: NICKI Finasteride (Finasteride 5 Mg Tablet) 5 mg PO DAILY [facility] Last Admin: 04/10/24 08:31 Dose: 5 mg Documented By: NICKI Gabapentin (Gabapentin 100 Mg Capsule) 100 mg PO TID PRN PRN Reason: NEUROPATHY Last Admin: 04/09/24 10:07 Dose: 100 mg Documented By: KATE Glucose (Glucose Gel 15 Gm Gel..Gram.) 15 gm PO Q15M PRN; Protocol PRN Reason: per Hypoglycemia Standing Ord. Piperacillin Sod/Tazobactam (Sod 3.375 gm/ Sodium Chloride) 50 mls @ 100 mls/hr IV Q6H [facility] Last Infusion: 04/10/24 07:08 Dose: Infused Documented By: MENM Dextrose (D10) 250 mls @ 750 mls/hr IV Q15M PRN; Protocol PRN Reason: per Hypoglycemia Standing Ord. Doxycycline Hyclate 100 mg/ (Sodium Chloride) 250 mls @ 166.67 mls/hr IV BID [facility] Last Infusion: 04/10/24 10:10 Dose: Infused Documented By: NCIKI Insulin Glargine (Insulin Glargine,Hum.Rec.Anlog 100 Unit/Ml 10 Ml Vial) 28 unit SUBCUT BID [facility] Last Admin: 04/10/24 08:33 Dose: 28 unit Documented By: NICKI Insulin Human Lispro (Insulin Lispro 100 Unit/Ml 3 Ml Vial) 0 unit SUBCUT QIDACHS [facility]; Protocol Last Admin: 04/10/24 08:33 Dose: 4 unit Documented By: NICKI Lidocaine/Diphenhydr/Alum/Mg/Simeth (Mag&Al/Sim/Diphenhyd/Lidocaine 10 Ml Oral.Susp) 10 ml PO Q6H PRN; Protocol PRN Reason: oral pain Last Admin: 04/09/24 15:41 Dose: 10 ml Documented By: KATE Magnesium Hydroxide (Milk Of Magnesia 30 Ml Oral.Susp) 30 ml PO DAILY PRN PRN Reason: Constipation Magnesium Oxide (Magnesium Oxide 400 Mg Tablet) 400 mg PO BID@0900,1700 [facility] Last Admin: 04/10/24 08:32 Dose: 400 mg Documented By: NICKI Melatonin (Melatonin 3 Mg Tablet) 6 mg PO BEDTIME PRN PRN Reason: Insomnia Metoprolol Tartrate (Metoprolol Tartrate 12.5 Mg Halftab) 12.5 mg PO BID [facility]; Protocol Last Admin: 04/10/24 08:32 Dose: 12.5 mg Documented By: NICKI Midodrine (Midodrine Hcl 10 Mg Tablet) 10 mg PO BID@0900,1700 [facility] Last Admin: 04/10/24 08:33 Dose: 10 mg Documented By: NICKI Neomycin/Polymyxin/Bacitracin (Neomy/Polymyx/Bacit/Ointment 1 Each Oint.Pack) 1 appl TOPICAL BID [facility]; Protocol Last Admin: 04/10/24 08:32 Dose: 1 appl Documented By: NICKI Omeprazole (Omeprazole 20 Mg Capsule.Dr) 20 mg PO DAILY@0630 [facility] Last Admin: 04/10/24 06:21 Dose: 20 mg Documented By: SHERIE Oxycodone HCl (Oxycodone Hcl Immed Release 5 Mg Tablet) 5 mg PO Q3H PRN PRN Reason: Pain, Moderate(Pain Scale 4-6) Last Admin: 04/10/24 07:12 Dose: 5 mg Documented By: SHERIE Polyethylene Glycol (Polyethylene Glycol 3350 17 Gm Powd.Pack) 17 gm PO DAILY PRN PRN Reason: Constipation Last Admin: 04/10/24 08:30 Dose: 17 gm Documented By: NICKI Sodium Chloride (0.9 % Sodium Chloride Flush 3 Ml Syringe) [facility] Last Admin: 04/10/24 08:38 Dose: 3 ml Documented By: NICKI Valacyclovir HCl (Valacyclovir Hcl 1,000 Mg Tablet) 1,000 mg PO Q12H [facility] Last Admin: 04/10/24 04:32 Dose: 1,000 mg Documented By: SHERIE Vitamin D (Cholecalciferol (Vitamin D3) 25 Mcg Tablet) 25 mcg PO DAILY [facility] Last Admin: 04/10/24 08:33 Dose: 25 mcg Documented By: NICKI Labs 04/09/24 08:39 04/10/24 08:35 Labs: Laboratory Results - last 24 hr 04/09/24 04/09/24 04/09/24 11:11 16:02 20:07 Hold Purple Top Anion Gap Estim Creat Clear Calc Estimated GFR POC Glucose 167 H 141 H 177 H Random Glucose Calcium 04/10/24 04/10/24 07:12 08:35 Hold Purple Top SEE NOTE Anion Gap 13 Estim Creat Clear Calc 51.5 Estimated GFR 45 POC Glucose 204 H Random Glucose 191 H Calcium 9.6 D Microbiology Microbiology Results: Microbiology 04/07/24 Unknown Gram Stain - Final Leg Right Routine Culture - Final Staphylococcus aureus Anaerobic Culture - Preliminary Culture in progress. Procedures Date of Service Date of Service: 04/10/24 Progress Note: A&P Assessment and plan (1) Cellulitis of leg, right: Status: Acute Plan Underwent bedside I&D of RLE fluid collection yesterday with evacuation of moderate amt of dark sanguineous output suggestive of hematoma that was secondarily infected. RLE cellulitis has improved significantly, half of packing removed and I&D site redressed with fluffs, kerlix wrap. Cont leg elevation, IV abx. May be ready for home tomorrow from surgical standpoint if continues to improve. Will remove remainder of packing tomorrow. Can f/u in office in 1 week for wound check, home with VNA services for dressing change with fluffs, kerlix wrap. Time Spent With Patient Time: Total time managing care of this patient today ____ minutes. Quality Stroke Does the patient have a stroke diagnosis?: No VTE Prior VTE?: No VTE Risk Level:: Medical - moderate - high VTE Device Contraindication: Treatment Not Indicated VTE Drug Contraindication: N/A - Med Ordered
[2024-04-10] MEDS: Mag&Al/Sim/Diphenhyd/Lidocaine 10 ML ORAL.SUSP PO (10:20)
--- NOTE | 2024-04-10 11:02 | MHC.CM.PN ---
Per MD rounds patient not medically cleared for dc. DCP: Home, resume [employer] [facility], new [facility] for wound care.
[2024-04-10 11:28] LABS: Glucose, Whole Blood 173 mg/dL (60-115)
[2024-04-10 15:30] VITALS: BP 141/76; PULSE 63; RESP 18; TEMP 36.2; O2SAT 94
--- NOTE | 2024-04-10 16:02 | HO.PM.IMPN ---
Subjective Subjective Date of Service: 04/10/24 Interval History: right lower ext cellulitis/fluid collection oral lesions painful Review of Systems leg area improving no fevers Physical Exam Vital Signs: Vital Signs: Last Vital Signs Temp 97.2 F 04/10/24 15:30 Pulse 63 04/10/24 15:30 Resp 18 04/10/24 15:30 BP 141/76 H 04/10/24 15:30 Pulse Ox 94 04/10/24 15:30 O2 Del Method Room Air 04/10/24 15:30 BMI result Body Mass Index 34.2 Appearance: Alert.? Oriented X3.? HEENT:oral mucosa -mild small vesicular lesions inside lips . cvs: rrr, [id number] . res: clear to auscultation ,no rhonchii or wheezing abd: no rebound or guarding ,nt, bs present. ext pulses present , no cyanosis . neuro: axo3 , nonfocal. Objective Data Active Medications Acetaminophen (Acetaminophen 325 Mg Tablet) 975 mg PO Q6H PRN PRN Reason: Pain, Mild (Pain Scale 1-3), fever or headache Apixaban (Apixaban 5 Mg Tablet) 5 mg PO BID [facility] Last Admin: 04/10/24 08:32 Dose: 5 mg Documented By: NICKI Aspirin (Aspirin Enteric Coated 81 Mg Tablet.) 81 mg PO DAILY [facility] Last Admin: 04/10/24 08:32 Dose: 81 mg Documented By: NICKI Atorvastatin Calcium (Atorvastatin Calcium 80 Mg Tablet) 80 mg PO BEDTIME [facility] Last Admin: 04/09/24 21:15 Dose: 80 mg Documented By: KASIA Calcium Carbonate (Calcium Carbonate 750 Mg Tab.Chew) 750 mg PO Q4H PRN PRN Reason: Heartburn Cholestyramine Resin (Cholestyramine (With Sugar) 4 Gm Powd.Pack) 4 gm PO BID PRN PRN Reason: Diarrhea Cyanocobalamin (Cyanocobalamin (Vitamin B-12) 500 Mcg Tablet) 500 mcg PO DAILY [facility] Last Admin: 04/10/24 08:32 Dose: 500 mcg Documented By: NICKI Doxazosin Mesylate (Doxazosin Mesylate 2 Mg Tablet) 4 mg PO BEDTIME [facility] Last Admin: 04/09/24 21:15 Dose: 4 mg Documented By: KASIA Empagliflozin (Empagliflozin 25 Mg Tablet) 25 mg PO DAILY [facility] Last Admin: 04/10/24 08:32 Dose: 25 mg Documented By: NICKI Ferrous Sulfate (Ferrous Sulfate 324 Mg Tablet.) 324 mg PO DAILY [facility] Last Admin: 04/10/24 08:32 Dose: 324 mg Documented By: NICKI Finasteride (Finasteride 5 Mg Tablet) 5 mg PO DAILY [facility] Last Admin: 04/10/24 08:31 Dose: 5 mg Documented By: NICKI Gabapentin (Gabapentin 100 Mg Capsule) 100 mg PO TID PRN PRN Reason: NEUROPATHY Last Admin: 04/09/24 10:07 Dose: 100 mg Documented By: KATE Glucose (Glucose Gel 15 Gm Gel..Gram.) 15 gm PO Q15M PRN; Protocol PRN Reason: per Hypoglycemia Standing Ord. Piperacillin Sod/Tazobactam (Sod 3.375 gm/ Sodium Chloride) 50 mls @ 100 mls/hr IV Q6H [facility] Last Admin: 04/10/24 14:32 Dose: 100 mls/hr Documented By: NICKI Dextrose (D10) 250 mls @ 750 mls/hr IV Q15M PRN; Protocol PRN Reason: per Hypoglycemia Standing Ord. Doxycycline Hyclate 100 mg/ (Sodium Chloride) 250 mls @ 166.67 mls/hr IV BID [facility] Last Infusion: 04/10/24 10:10 Dose: Infused Documented By: NICKI Insulin Glargine (Insulin Glargine,Hum.Rec.Anlog 100 Unit/Ml 10 Ml Vial) 28 unit SUBCUT BID [facility] Last Admin: 04/10/24 08:33 Dose: 28 unit Documented By: NICKI Insulin Human Lispro (Insulin Lispro 100 Unit/Ml 3 Ml Vial) 0 unit SUBCUT QIDACHS [facility]; Protocol Last Admin: 04/10/24 12:01 Dose: 2 unit Documented By: NICKI Lidocaine/Diphenhydr/Alum/Mg/Simeth (Mag&Al/Sim/Diphenhyd/Lidocaine 10 Ml Oral.Susp) 10 ml PO Q6H PRN; Protocol PRN Reason: oral pain Last Admin: 04/10/24 10:20 Dose: 10 ml Documented By: NICKI Magnesium Hydroxide (Milk Of Magnesia 30 Ml Oral.Susp) 30 ml PO DAILY PRN PRN Reason: Constipation Magnesium Oxide (Magnesium Oxide 400 Mg Tablet) 400 mg PO BID@0900,1700 [facility] Last Admin: 04/10/24 08:32 Dose: 400 mg Documented By: NICKI Melatonin (Melatonin 3 Mg Tablet) 6 mg PO BEDTIME PRN PRN Reason: Insomnia Metoprolol Tartrate (Metoprolol Tartrate 12.5 Mg Halftab) 12.5 mg PO BID [facility]; Protocol Last Admin: 04/10/24 08:32 Dose: 12.5 mg Documented By: NICKI Midodrine (Midodrine Hcl 10 Mg Tablet) 10 mg PO BID@0900,1700 [facility] Last Admin: 04/10/24 08:33 Dose: 10 mg Documented By: NICKI Neomycin/Polymyxin/Bacitracin (Neomy/Polymyx/Bacit/Ointment 1 Each Oint.Pack) 1 appl TOPICAL BID [facility]; Protocol Last Admin: 04/10/24 08:32 Dose: 1 appl Documented By: NICKI Omeprazole (Omeprazole 20 Mg Capsule.Dr) 20 mg PO DAILY@0630 [facility] Last Admin: 04/10/24 06:21 Dose: 20 mg Documented By: SHERIE Oxycodone HCl (Oxycodone Hcl Immed Release 5 Mg Tablet) 5 mg PO Q3H PRN PRN Reason: Pain, Moderate(Pain Scale 4-6) Last Admin: 04/10/24 07:12 Dose: 5 mg Documented By: SHERIE Polyethylene Glycol (Polyethylene Glycol 3350 17 Gm Powd.Pack) 17 gm PO DAILY PRN PRN Reason: Constipation Last Admin: 04/10/24 08:30 Dose: 17 gm Documented By: NICKI Sodium Chloride (0.9 % Sodium Chloride Flush 3 Ml Syringe) 3 ml IVFLUSH QSHIFT [facility] Last Admin: 04/10/24 08:38 Dose: 3 ml Documented By: NICKI Valacyclovir HCl (Valacyclovir Hcl 1,000 Mg Tablet) 1,000 mg PO Q12H [facility] Last Admin: 04/10/24 14:32 Dose: 1,000 mg Documented By: NICKI Vitamin D (Cholecalciferol (Vitamin D3) 25 Mcg Tablet) 25 mcg PO DAILY [facility] Last Admin: 04/10/24 08:33 Dose: 25 mcg Documented By: NICKI Labs 04/09/24 08:39 04/10/24 08:35 Labs: Laboratory Results - last 24 hr 04/09/24 04/09/24 04/10/24 16:02 20:07 07:12 Hold Purple Top Anion Gap Estim Creat Clear Calc Estimated GFR POC Glucose 141 H 177 H 204 H Random Glucose Calcium 04/10/24 04/10/24 08:35 11:23 Hold Purple Top SEE NOTE Anion Gap 13 Estim Creat Clear Calc 51.5 Estimated GFR 45 POC Glucose 173 H Random Glucose 191 H Calcium 9.6 D Microbiology Microbiology Results: Microbiology 04/05/24 10:56 Blood Culture - Final Blood - Venous No growth after 5 days. 04/05/24 10:13 Blood Culture - Final Blood - Venous No growth after 5 days. 04/07/24 Unknown Gram Stain - Final Leg Right Routine Culture - Final Staphylococcus aureus Anaerobic Culture - Final Anaerobic gram positive cocci Assessment and Plan (1) Cellulitis of leg, right: Status: Acute Plan 73-year-old male with chronic kidney disease stage 3, insulin-dependent diabetes, h/o dvt on eliquis, CVA and a history of osteomyelitis of the left great toe to be observed for cellulitis RLE Acute cellulitis RLE possible associtated with dm, failed outpt keflex. Has hx of rapidly progressing cellulitis of same area failing outpt abx and requiring iv abx us soft tissue - possible shows ? collection IR to drain and cultures-grew (prelimnary-staph admrwi-bwlf-iuakumjt to doxy/clinda /oxacillin ) ,had fluid collection evacuation by surgery today look like hematoma. esr 32-51, crp 4-to 3.75 No leukocytosis, fevers. No sepsis continue doxy /zosyn plan: continue doxy(04/09)/zosyn (initiated 04/05). moniter vanco trough 11 surgery eval-s/phad fluid collection evacuation by surgery today look like hematoma . 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 Quality Stroke Does the patient have a stroke diagnosis?: No VTE Prior VTE?: No VTE Risk Level:: Medical - moderate - high VTE Device Contraindication: Treatment Not Indicated VTE Drug Contraindication: N/A - Med Ordered
[2024-04-10 16:26] LABS: Glucose, Whole Blood 159 mg/dL (60-115)
[2024-04-10 19:17] VITALS: BP 148/73; PULSE 65; RESP 18; TEMP 36.1; O2SAT 95
[2024-04-10 20:03] LABS: Glucose, Whole Blood 219 mg/dL (60-115)
[2024-04-10 20:54] VITALS: BP 146/70
[2024-04-10] MEDS: Doxazosin Mesylate 2 MG TABLET 4 MG PO (20:54)
[2024-04-10] MEDS: Atorvastatin Calcium 80 MG TABLET PO (20:54)
[2024-04-11] MEDS: oxyCODONE HCl Immed Release 5 MG TABLET PO (00:23)
[2024-04-11] MEDS: Piperacillin Sodium/Tazobactam 3.375 GM in 0.9 % Sodium Chloride 50 ML IV ×3 (00:25→12:45)
[2024-04-11] MEDS: valACYclovir HCL 1,000 MG TABLET 1000 MG PO ×2 (03:39→15:08)
[2024-04-11 04:00] VITALS: BP 133/61; PULSE 74; RESP 16; TEMP 36.1; O2SAT 93
[2024-04-11] MEDS: Omeprazole 20 MG CAPSULE.DR PO (06:20)
[2024-04-11 07:08] VITALS: BP 119/59; PULSE 86; RESP 18; TEMP 36.1; O2SAT 93
[2024-04-11 07:28] LABS: Glucose, Whole Blood 215 mg/dL (60-115)
[2024-04-11] MEDS: Metoprolol Tartrate 12.5 MG HALFTAB PO (08:02)
[2024-04-11] MEDS: Insulin Lispro 100 UNIT/ML 3 ML VIAL SUBCUT ×2 (08:02→11:56)
[2024-04-11] MEDS: Finasteride 5 MG TABLET PO (08:02)
[2024-04-11] MEDS: Cyanocobalamin (Vitamin B-12) 500 MCG TABLET PO (08:02)
[2024-04-11] MEDS: Midodrine HCl 10 MG TABLET PO (08:02)
[2024-04-11] MEDS: Magnesium Oxide 400 MG TABLET PO (08:02)
[2024-04-11] MEDS: Aspirin Enteric Coated 81 MG TABLET.DR PO (08:02)
[2024-04-11] MEDS: Insulin Glargine,Hum.rec.anlog 100 UNIT/ML 10 ML VIAL 28 UNIT SUBCUT (08:02)
[2024-04-11] MEDS: Apixaban 5 MG TABLET PO (08:02)
[2024-04-11] MEDS: Cholecalciferol (Vitamin D3) 25 MCG TABLET PO (08:02)
[2024-04-11] MEDS: Ferrous Sulfate 324 MG TABLET.DR PO (08:02)
[2024-04-11] MEDS: Empagliflozin 25 MG TABLET PO (08:02)
[2024-04-11] MEDS: Doxycycline Hyclate 100 MG in 0.9 % Sodium Chloride 250 ML 166.67 MG IV (08:03)
[2024-04-11] MEDS: 0.9 % Sodium Chloride Flush 3 ML SYRINGE IVFLUSH (08:06)
[2024-04-11] MEDS: polyethylene glycoL 3350 17 GM POWD.PACK PO (08:13)
[2024-04-11 09:19] VITALS: BP 119/59; PULSE 86; O2SAT 93
[2024-04-11 11:51] LABS: Glucose, Whole Blood 185 mg/dL (60-115)
--- NOTE | 2024-04-11 12:06 | HO.PM.IMPN ---
Subjective Subjective Date of Service: 04/11/24 Interval History: leg cellulitis vs hematoma Review of Systems seems erythema improving,has dressing Physical Exam Vital Signs: Vital Signs: Last Vital Signs Temp 97 F 04/11/24 07:08 Pulse 86 04/11/24 09:19 Resp 18 04/11/24 07:08 BP 119/59 L 04/11/24 09:19 Pulse Ox 93 04/11/24 09:19 O2 Del Method Room Air 04/11/24 07:08 BMI result Body Mass Index 34.2 Appearance: Alert.? Oriented X3.? HEENT:oral mucosa -mild small vesicular lesions inside lips-improving . cvs: rrr, [id number] . res: clear to auscultation ,no rhonchii or wheezing abd: no rebound or guarding ,nt, bs present. ext -right leg erythema somewhat improving,has dressin neuro: axo3 , nonfocal. Objective Data Active Medications Acetaminophen (Acetaminophen 325 Mg Tablet) 975 mg PO Q6H PRN PRN Reason: Pain, Mild (Pain Scale 1-3), fever or headache Apixaban (Apixaban 5 Mg Tablet) 5 mg PO BID [facility] Last Admin: 04/11/24 08:02 Dose: 5 mg Documented By: KEVIN Aspirin (Aspirin Enteric Coated 81 Mg Tablet.) 81 mg PO DAILY [facility] Last Admin: 04/11/24 08:02 Dose: 81 mg Documented By: KEVIN Atorvastatin Calcium (Atorvastatin Calcium 80 Mg Tablet) 80 mg PO BEDTIME [facility] Last Admin: 04/10/24 20:54 Dose: 80 mg Documented By: KASIA Calcium Carbonate (Calcium Carbonate 750 Mg Tab.Chew) 750 mg PO Q4H PRN PRN Reason: Heartburn Cholestyramine Resin (Cholestyramine (With Sugar) 4 Gm Powd.Pack) 4 gm PO BID PRN PRN Reason: Diarrhea Cyanocobalamin (Cyanocobalamin (Vitamin B-12) 500 Mcg Tablet) 500 mcg PO DAILY [facility] Last Admin: 04/11/24 08:02 Dose: 500 mcg Documented By: KEVIN Doxazosin Mesylate (Doxazosin Mesylate 2 Mg Tablet) 4 mg PO BEDTIME [facility] Last Admin: 04/10/24 20:54 Dose: 4 mg Documented By: KASIA Empagliflozin (Empagliflozin 25 Mg Tablet) 25 mg PO DAILY [facility] Last Admin: 04/11/24 08:02 Dose: 25 mg Documented By: KEVIN Ferrous Sulfate (Ferrous Sulfate 324 Mg Tablet.) 324 mg PO DAILY [facility] Last Admin: 04/11/24 08:02 Dose: 324 mg Documented By: KEVIN Finasteride (Finasteride 5 Mg Tablet) 5 mg PO DAILY [facility] Last Admin: 04/11/24 08:02 Dose: 5 mg Documented By: KEVIN Gabapentin (Gabapentin 100 Mg Capsule) 100 mg PO TID PRN PRN Reason: NEUROPATHY Last Admin: 04/09/24 10:07 Dose: 100 mg Documented By: KATE Glucose (Glucose Gel 15 Gm Gel..Gram.) 15 gm PO Q15M PRN; Protocol PRN Reason: per Hypoglycemia Standing Ord. Piperacillin Sod/Tazobactam (Sod 3.375 gm/ Sodium Chloride) 50 mls @ 100 mls/hr IV Q6H [facility] Last Infusion: 04/11/24 06:51 Dose: Infused Documented By: KASIA Dextrose (D10) 250 mls @ 750 mls/hr IV Q15M PRN; Protocol PRN Reason: per Hypoglycemia Standing Ord. Doxycycline Hyclate 100 mg/ (Sodium Chloride) 250 mls @ 166.67 mls/hr IV BID [facility] Last Infusion: 04/11/24 09:33 Dose: Infused Documented By: KEVIN Insulin Glargine (Insulin Glargine,Hum.Rec.Anlog 100 Unit/Ml 10 Ml Vial) 28 unit SUBCUT BID [facility] Last Admin: 04/11/24 08:02 Dose: 28 unit Documented By: KEVIN Insulin Human Lispro (Insulin Lispro 100 Unit/Ml 3 Ml Vial) 0 unit SUBCUT QIDACHS [facility]; Protocol Last Admin: 04/11/24 11:56 Dose: 2 unit Documented By: KEVIN Lidocaine/Diphenhydr/Alum/Mg/Simeth (Mag&Al/Sim/Diphenhyd/Lidocaine 10 Ml Oral.Susp) 10 ml PO Q6H PRN; Protocol PRN Reason: oral pain Last Admin: 04/10/24 10:20 Dose: 10 ml Documented By: NICKI Magnesium Hydroxide (Milk Of Magnesia 30 Ml Oral.Susp) 30 ml PO DAILY PRN PRN Reason: Constipation Magnesium Oxide (Magnesium Oxide 400 Mg Tablet) 400 mg PO BID@0900,1700 [facility] Last Admin: 04/11/24 08:02 Dose: 400 mg Documented By: KEVIN Melatonin (Melatonin 3 Mg Tablet) 6 mg PO BEDTIME PRN PRN Reason: Insomnia Metoprolol Tartrate (Metoprolol Tartrate 12.5 Mg Halftab) 12.5 mg PO BID [facility]; Protocol Last Admin: 04/11/24 08:02 Dose: 12.5 mg Documented By: KEVIN Midodrine (Midodrine Hcl 10 Mg Tablet) 10 mg PO BID@0900,1700 [facility] Last Admin: 04/11/24 08:02 Dose: 10 mg Documented By: KEVIN Neomycin/Polymyxin/Bacitracin (Neomy/Polymyx/Bacit/Ointment 1 Each Oint.Pack) 1 appl TOPICAL BID [facility]; Protocol Last Admin: 04/11/24 08:14 Dose: Not Given Documented By: KEVIN Non-Admin Reason: Patient Refused Omeprazole (Omeprazole 20 Mg Capsule.Dr) 20 mg PO DAILY@0630 [facility] Last Admin: 04/11/24 06:20 Dose: 20 mg Documented By: AKSIA Oxycodone HCl (Oxycodone Hcl Immed Release 5 Mg Tablet) 5 mg PO Q3H PRN PRN Reason: Pain, Moderate(Pain Scale 4-6) Last Admin: 04/11/24 00:23 Dose: 5 mg Documented By: KASIA Polyethylene Glycol (Polyethylene Glycol 3350 17 Gm Powd.Pack) 17 gm PO DAILY PRN PRN Reason: Constipation Last Admin: 04/11/24 08:13 Dose: 17 gm Documented By: KEVIN Sodium Chloride (0.9 % Sodium Chloride Flush 3 Ml Syringe) 3 ml IVFLUSH QSHIFT [facility] Last Admin: 04/11/24 08:06 Dose: 3 ml Documented By: KEVIN Valacyclovir HCl (Valacyclovir Hcl 1,000 Mg Tablet) 1,000 mg PO Q12H [facility] Last Admin: 04/11/24 03:39 Dose: 1,000 mg Documented By: KASIA Vitamin D (Cholecalciferol (Vitamin D3) 25 Mcg Tablet) 25 mcg PO DAILY [facility] Last Admin: 04/11/24 08:02 Dose: 25 mcg Documented By: WILFREDOBRITTANI Labs 04/09/24 08:39 04/10/24 08:35 Labs: Laboratory Results - last 24 hr 04/10/24 04/10/24 04/11/24 16:06 19:57 07:06 POC Glucose 159 H 219 H 215 H 04/11/24 11:34 POC Glucose 185 H Microbiology Microbiology Results: Microbiology 04/05/24 10:56 Blood Culture - Final Blood - Venous No growth after 5 days. 04/05/24 10:13 Blood Culture - Final Blood - Venous No growth after 5 days. 04/07/24 Unknown Gram Stain - Final Leg Right Routine Culture - Final Staphylococcus aureus Anaerobic Culture - Final Anaerobic gram positive cocci Assessment and Plan (1) Cellulitis of leg, right: Status: Acute Plan 73-year-old male with chronic kidney disease stage 3, insulin-dependent diabetes, h/o dvt on eliquis, CVA and a history of osteomyelitis of the left great toe to be observed for cellulitis RLE Acute cellulitis RLE possible associtated with dm, failed outpt keflex. Has hx of rapidly progressing cellulitis of same area failing outpt abx and requiring iv abx us soft tissue - possible shows ? collection IR to drain and cultures-grew (prelimnary-staph mapwbn-qdxc-ysywxlju to doxy/clinda /oxacillin ) ,had fluid collection evacuation by surgery today look like hematoma. esr 32-51, crp 4-to 3.75 No leukocytosis, fevers. No sepsis continue doxy /zosyn plan: continue doxy(04/09)/zosyn (initiated 04/05). moniter vanco trough 11 surgery eval-s/phad fluid collection evacuation by surgery today look like hematoma . possible oral area /herpez: valacyclovir insulin dependent type 2 diabetes without hyperglycemia -hgb a1c 7.4 -dose adjusted basal insulin -poc glucose, diabetic diet -ssi CKD stage 3 -renal function baseline Hx DVT -continue eliquis dvt prophylaxis- eliquis full code Due to history of rapidly progressing cellulitis RLE failed multiple courses of PO antibiotics and ultiamtely requiring admission for IV abx patient will be treated empirically with IV abx,moniter for improvement. Quality Stroke Does the patient have a stroke diagnosis?: No VTE Prior VTE?: No VTE Risk Level:: Medical - moderate - high VTE Device Contraindication: Treatment Not Indicated VTE Drug Contraindication: N/A - Med Ordered
[2024-04-11] MEDS: Gabapentin 100 MG CAPSULE PO (12:46)
--- NOTE | 2024-04-11 14:33 | P.PNGS_ITS ---
Subjective Subjective Date of Service: 04/11/24 Interval history: No new right lower extremity wound issues or complaints. Patient undergoing local wound care. Physical Exam 2 Vital Signs: Vital Signs: Last Vital Signs Temp 97 F 04/11/24 07:08 Pulse 86 04/11/24 09:19 Resp 18 04/11/24 07:08 BP 119/59 L 04/11/24 09:19 Pulse Ox 93 04/11/24 09:19 O2 Del Method Room Air 04/11/24 07:08 BMI result Body Mass Index 34.2 Extrem: Other: Dressing taken down, right lower extremity wound packing removed. Wound clean dry and intact. Cellulitis resolving Objective Data Active Medications Acetaminophen (Acetaminophen 325 Mg Tablet) 975 mg PO Q6H PRN PRN Reason: Pain, Mild (Pain Scale 1-3), fever or headache Apixaban (Apixaban 5 Mg Tablet) 5 mg PO BID [facility] Last Admin: 04/11/24 08:02 Dose: 5 mg Documented By: KEVIN Aspirin (Aspirin Enteric Coated 81 Mg Tablet.) 81 mg PO DAILY [facility] Last Admin: 04/11/24 08:02 Dose: 81 mg Documented By: KEVIN Atorvastatin Calcium (Atorvastatin Calcium 80 Mg Tablet) 80 mg PO BEDTIME [facility] Last Admin: 04/10/24 20:54 Dose: 80 mg Documented By: KASIA Calcium Carbonate (Calcium Carbonate 750 Mg Tab.Chew) 750 mg PO Q4H PRN PRN Reason: Heartburn Cholestyramine Resin (Cholestyramine (With Sugar) 4 Gm Powd.Pack) 4 gm PO BID PRN PRN Reason: Diarrhea Cyanocobalamin (Cyanocobalamin (Vitamin B-12) 500 Mcg Tablet) 500 mcg PO DAILY [facility] Last Admin: 04/11/24 08:02 Dose: 500 mcg Documented By: KEVIN Doxazosin Mesylate (Doxazosin Mesylate 2 Mg Tablet) 4 mg PO BEDTIME [facility] Last Admin: 04/10/24 20:54 Dose: 4 mg Documented By: KASIA Empagliflozin (Empagliflozin 25 Mg Tablet) 25 mg PO DAILY [facility] Last Admin: 04/11/24 08:02 Dose: 25 mg Documented By: KEVIN Ferrous Sulfate (Ferrous Sulfate 324 Mg Tablet.) 324 mg PO DAILY [facility] Last Admin: 04/11/24 08:02 Dose: 324 mg Documented By: KEVIN Finasteride (Finasteride 5 Mg Tablet) 5 mg PO DAILY [facility] Last Admin: 04/11/24 08:02 Dose: 5 mg Documented By: KEVIN Gabapentin (Gabapentin 100 Mg Capsule) 100 mg PO TID PRN PRN Reason: NEUROPATHY Last Admin: 04/11/24 12:46 Dose: 100 mg Documented By: KEVIN Glucose (Glucose Gel 15 Gm Gel..Gram.) 15 gm PO Q15M PRN; Protocol PRN Reason: per Hypoglycemia Standing Ord. Piperacillin Sod/Tazobactam (Sod 3.375 gm/ Sodium Chloride) 50 mls @ 100 mls/hr IV Q6H [facility] Last Infusion: 04/11/24 13:15 Dose: Infused Documented By: KEVIN Dextrose (D10) 250 mls @ 750 mls/hr IV Q15M PRN; Protocol PRN Reason: per Hypoglycemia Standing Ord. Doxycycline Hyclate 100 mg/ (Sodium Chloride) 250 mls @ 166.67 mls/hr IV BID [facility] Last Infusion: 04/11/24 09:33 Dose: Infused Documented By: KEVIN Insulin Glargine (Insulin Glargine,Hum.Rec.Anlog 100 Unit/Ml 10 Ml Vial) 28 unit SUBCUT BID [facility] Last Admin: 04/11/24 08:02 Dose: 28 unit Documented By: KEVIN Insulin Human Lispro (Insulin Lispro 100 Unit/Ml 3 Ml Vial) 0 unit SUBCUT QIDACHS [facility]; Protocol Last Admin: 04/11/24 11:56 Dose: 2 unit Documented By: KEVIN Lidocaine/Diphenhydr/Alum/Mg/Simeth (Mag&Al/Sim/Diphenhyd/Lidocaine 10 Ml Oral.Susp) 10 ml PO Q6H PRN; Protocol PRN Reason: oral pain Last Admin: 04/10/24 10:20 Dose: 10 ml Documented By: NICKI Magnesium Hydroxide (Milk Of Magnesia 30 Ml Oral.Susp) 30 ml PO DAILY PRN PRN Reason: Constipation Magnesium Oxide (Magnesium Oxide 400 Mg Tablet) 400 mg PO BID@0900,1700 [facility] Last Admin: 04/11/24 08:02 Dose: 400 mg Documented By: KEVIN Melatonin (Melatonin 3 Mg Tablet) 6 mg PO BEDTIME PRN PRN Reason: Insomnia Metoprolol Tartrate (Metoprolol Tartrate 12.5 Mg Halftab) 12.5 mg PO BID [facility]; Protocol Last Admin: 04/11/24 08:02 Dose: 12.5 mg Documented By: KEVIN Midodrine (Midodrine Hcl 10 Mg Tablet) 10 mg PO BID@0900,1700 [facility] Last Admin: 04/11/24 08:02 Dose: 10 mg Documented By: KEVIN Neomycin/Polymyxin/Bacitracin (Neomy/Polymyx/Bacit/Ointment 1 Each Oint.Pack) 1 appl TOPICAL BID [facility]; Protocol Last Admin: 04/11/24 08:14 Dose: Not Given Documented By: KEVIN Non-Admin Reason: Patient Refused Omeprazole (Omeprazole 20 Mg Capsule.Dr) 20 mg PO DAILY@0630 [facility] Last Admin: 04/11/24 06:20 Dose: 20 mg Documented By: KASIA Oxycodone HCl (Oxycodone Hcl Immed Release 5 Mg Tablet) 5 mg PO Q3H PRN PRN Reason: Pain, Moderate(Pain Scale 4-6) Last Admin: 04/11/24 00:23 Dose: 5 mg Documented By: KASIA Polyethylene Glycol (Polyethylene Glycol 3350 17 Gm Powd.Pack) 17 gm PO DAILY PRN PRN Reason: Constipation Last Admin: 04/11/24 08:13 Dose: 17 gm Documented By: KEVIN Sodium Chloride (0.9 % Sodium Chloride Flush 3 Ml Syringe) 3 ml IVFLUSH QSHIFT [facility] Last Admin: 04/11/24 08:06 Dose: 3 ml Documented By: KEVIN Valacyclovir HCl (Valacyclovir Hcl 1,000 Mg Tablet) 1,000 mg PO Q12H [facility] Last Admin: 04/11/24 03:39 Dose: 1,000 mg Documented By: KASIA Vitamin D (Cholecalciferol (Vitamin D3) 25 Mcg Tablet) 25 mcg PO DAILY [facility] Last Admin: 04/11/24 08:02 Dose: 25 mcg Documented By: KEVIN Labs 04/09/24 08:39 04/10/24 08:35 Labs: Laboratory Results - last 24 hr 0704/10/24 04/11/24 16:06 19:57 07:06 POC Glucose 159 H 219 H 215 H 04/11/24 11:34 POC Glucose 185 H Microbiology Microbiology Results: Microbiology 04/05/24 10:56 Blood Culture - Final Blood - Venous No growth after 5 days. 04/05/24 10:13 Blood Culture - Final Blood - Venous No growth after 5 days. 04/07/24 Unknown Gram Stain - Final Leg Right Routine Culture - Final Staphylococcus aureus Anaerobic Culture - Final Anaerobic gram positive cocci Procedures Date of Service Date of Service: 04/11/24 Progress Note: A&P Assessment and plan (1) Cellulitis of leg, right: Status: Acute Plan Patient clinically improving. Continue local wound care. When discharge, consider VNA and wound clinic follow-up. Time Spent With Patient Time: Total time managing care of this patient today ____ minutes. Quality Stroke Does the patient have a stroke diagnosis?: No VTE Prior VTE?: No VTE Risk Level:: Medical - moderate - high VTE Device Contraindication: Treatment Not Indicated VTE Drug Contraindication: N/A - Med Ordered
--- NOTE | 2024-04-11 14:51 | PM.DS ---
DS: Providers Provider Date of Service: 04/11/24 Date of admission: 04/05/24 12:28 Date of discharge: 04/11/24 Primary care physician: Manan Reinoso MD Consults: 04/08/24 17:02 Consult to General Surgery Routine Consulting Provider: [facility] Reason for consultation: cellulitis ,? collection/abcess right lower ext Has provider been notified: No Attending physician on discharge: Rah Jay Discharging clinician: Rah Jay DS: Diagnosis Discharge Diagnosis (1) Cellulitis of leg, right: Status: Acute DS: Summary Hospital Course Hospital Course: 73-year-old male with chronic kidney disease stage 3, insulin-dependent diabetes, h/o dvt on eliquis, CVA and a history of osteomyelitis of the left great toe presented to the ED earlier today for evaluation of infection of the RLE. He was hospitalized last month for cellulitis RLE having failed outpt abx requiring IV vanc/zosyn. He was discharged to compelted course PO augmentin and doxy with full resolution. However, symptoms recurred early last week with faint erythema of the R ankle. Saw PCP who prescribed Keflex but symptoms continued to worsen with erythema covering the proximal aspect of the R foot and the distal third of the right lower leg with warmth and swelling. He is afebrile and denies any injury. No leukocytosis. Renal function baseline, lytes normal. CRP 4, ESR 32. Venous duplex RLE negative for DVT. In the ED, has received iv vanco. Given history of rapidly progressing cellulitis RLE failed outpt abx will require iv abx. Hospital course: Patient came to the hospital because of right lower extremity cellulitis failed outpatient Rx with Keflex : CRP initially was 4 - repeated 3.75 , no leukocytosis or fever, CT of leg shows some collection in the right lower leg: initial patient was drained by IR, cultures sent ,also antibiotics vanco/zosyn continued ,Patient was also seen by surgery- patient had likely hematoma(I&D done downing surgery), initial patient was drained by IR- cultures wound area MSSA is sensitive to doxycycline and doxycycline. Patient seems to be improved significantly with IV antibiotics, I&D and patient will be going home with p.o. antibiotics. Can f/u in surgery office in 1 week for wound check, home with VNA services for dressing change with fluffs, kerlix wrap. also possible had aaron mojicaalis : started on valacyclovir plan: Complete p.o. doxycycline 100 mg p.o. b.i.d., Augmentin 875 mg p.o. b.i.d. for 1 week. continue valacyclovir 1gm po bid for 1 week Follow-up with surgery outpatient. dressing change as above Patient will be going home with VNA. Above management discussed with the patient detail length he understand and in agreement with the above plan, time spent 40 minute. Time Attestation Total time managing care of this patient today: 40 mintues. Discharge Coordination Time (in mins): 40 min Quality: Safe Use of Opioids Does Pt have an Active Cancer Diagnosis on the Problem List?: No Quality: Stroke Does the patient have a stroke diagnosis?: No Physical Exam Vital Signs: Vital Signs: Last Vital Signs Temp 97 F 04/11/24 07:08 Pulse 86 04/11/24 09:19 Resp 18 04/11/24 07:08 BP 119/59 L 04/11/24 09:19 Pulse Ox 93 04/11/24 09:19 O2 Del Method Room Air 04/11/24 07:08 BMI result Body Mass Index 34.2 Appearance: Alert.? Oriented X3.? HEENT:oral mucosa and mild small vesicular lesions inside lips -dried , no pain cvs: rrr, [id number] . res: clear to auscultation ,no rhonchii or wheezing abd: no rebound or guarding ,nt, bs present. ext pulses present , no cyanosis . neuro: axo3 , nonfocal. DS: Data Data Completed and Pending Labs on day of discharge: Laboratory Results - last 24 hr 04/10/24 04/10/24 04/11/24 16:06 19:57 07:06 POC Glucose 159 H 219 H 215 H 04/11/24 11:34 POC Glucose 185 H Imaging Chest x-ray: Radiologist's impression: ITS Impressions Venous Duplex 04/05/24 10:33 IMPRESSION: No DVT demonstrated in the right lower extremity. If the patient's symptoms persist, followup ultrasound in 5 days 7 days might be of value to exclude proximal propagation from a non-visualized calf vein. Extremity Ultrasound 04/07/24 11:04 IMPRESSION: Heterogeneous somewhat ill-defined fluid collection in the subcutaneous tissues in the region of clinical concern measuring 2.9 x 0.6 x 3.7 cm. Differential considerations would include abscess, hematoma or other fluid collection. Fluid Drainage 04/07/24 14:30 IMPRESSION: Ultrasound guided aspiration of right lower extremity soft tissue fluid collection yielding 4 mL of bloody/purulent fluid. This procedure was performed by Ricky Gordon PA-C, and directly supervised by Dr. Coles Lower Extremity CT 04/09/24 09:08 IMPRESSION: There is a subcutaneous fluid collection at the lateral aspect of the distal lower leg which is contiguous with the peroneal longus muscle/tendon and likely communicates with the peroneal tendon sheath where there is prominent fluid extending beyond the ankle. No cortical erosion or periosteal reaction to suggest osteomyelitis. Discharge Plan Discharge Anticipated Discharge Date/Time: 04/11/24 14:37 Patient Disposition: Home Health Service Discharge Diagnosis: right foot cellulitis Referrals: [facility] [Other] - 1 Week Leonidas Carpio MD [Physician] - 1 Week Manan Reinoso MD [Primary Care Provider] - 1 Week Discharge Medications: New amoxicillin-pot clavulanate 875-125 mg Tablet 875 tab PO Q12H Qty: 14 0RF doxycycline hyclate 100 mg tablet 100 mg PO BID Qty: 14 0RF valacyclovir 1 gram Tablet 1,000 mg PO Q12H Qty: 14 0RF Continued aspirin 81 mg Tablet,Delayed Release (Dr/Ec) 81 mg PO DAILY cholestyramine (with sugar) 4 gram Powder In Packet 4 g PO BID PRN (Reason: Diarrhea) Rx Instructions: administer w/meal; avoid other meds within 1hr before or 4-6hr after dose Triple Antibiotic 3.5-400-5,000 [id number]-ptec Ointment In Packet 1 appl TOPICAL QD-BID polyethylene glycol 3350 17 gram powder in packet 17 g PO DAILY PRN (Reason: Constipation) diphenoxylate-atropine 2.5-0.025 mg tablet 2 tab PO TID PRN (Reason: Diarrhea) hydrocodone-acetaminophen 5-300 mg tablet 1 tab PO BID PRN (Reason: Pain) insulin aspart U-100 [Novolog U-100 Insulin aspart] 100 unit/mL Solution 30 unit SUBCUT TID cyanocobalamin (vitamin B-12) 500 mcg Tablet 500 mcg PO DAILY cholecalciferol (vitamin D3) [Vitamin D3] 25 mcg (1,000 unit) Tablet 25 mcg PO DAILY finasteride 5 mg tablet 5 mg PO DAILY apixaban 5 mg tablet 5 mg PO BID metoprolol tartrate 25 mg tablet 12.5 mg PO BID pantoprazole 40 mg tablet,delayed release (DR/EC) 40 mg PO DAILY@0630 Jardiance 25 mg tablet 25 mg PO DAILY gabapentin 100 mg capsule 100 mg PO TID PRN (Reason: NEUROPATHY) magnesium oxide 400 mg (241.3 mg magnesium) tablet 400 mg PO BID@0900,1700 rosuvastatin 40 mg tablet 40 mg PO BEDTIME midodrine 10 mg tablet 10 mg PO BID@0900,1700 (DME) pen needle, diabetic [Easy Touch] 31 gauge x 3/16 needle See Rx Instructions .ROUTE .MEDSUPPLY Qty: 50 Rx Instructions: As directed ferrous sulfate [FeroSul] 325 mg (65 mg iron) tablet 325 mg PO DAILY insulin glargine [Lantus Solostar U-100 Insulin] 100 unit/mL (3 mL) insulin pen 38 unit subcut BID terazosin 5 mg capsule 5 mg PO BEDTIME 90 Days Qty: 90 3RF tadalafil 5 mg tablet 5 mg PO DAILY 90 Days Qty: 90 3RF tadalafil [Cialis] 10 mg tablet 10 mg PO .PRN PRN (Reason: sexual activity) 90 Days Qty: 30 2RF Rx Instructions: take 1-2 tablets; administer approximately 30min before sexual activity. Do not use more than 2-3 times per week [id number] [facility] [id number] Member [id number] Discontinued cephalexin 500 mg capsule 500 mg PO QID Discharge Orders: Discharge Order (Routine); Ordered 04/11/24 Ordered By: Rah Jay Diet: Advance to usual diet Activity on Discharge: As tolerated Stand Alone Forms: Patient Portal Discharge page Print Language: Peruvian Activity Restrictions/Additional Instructions: dry fluffs followed by demian cote to I&D site, change daily Care Plan Goals: Patient came to the hospital because of right lower extremity cellulitis failed outpatient Rx with Keflex : CRP initially was 4 - repeated 3.75 , no leukocytosis or fever, CT of leg shows some collection in the right lower leg: Patient was seen by surgery- patient had likely hematoma(I&D done downing surgery), initial patient was drained by IR- cultures wound area MSSA is sensitive to doxycycline and doxycycline. Patient seems to be improved significantly with IV antibiotics, I&D and patient will be going home with p.o. antibiotics. Can f/u in surgery office in 1 week for wound check, home with VNA services for dressing change with fluffs, kerlix wrap. also possible had aaron chavez : started on valacyclovir Health Concerns: As above. Plan of Treatment: Complete p.o. doxycycline 100 mg p.o. b.i.d., Augmentin 875 mg p.o. b.i.d. for 1 week. Follow-up with surgery outpatient. Assessment: As above.
--- NOTE | 2024-04-11 14:58 | W.MHC.F2F ---
Service Date Service Date: 04/11/24 Encounter Date of encounter: 04/11/24 Encounter: Right leg cellulitis, small hematoma Reasons for Services Signs and symptoms assessed: Monitor for fever or worsening of cellulitis or new symptoms Reason for intermediate: wound care, medication management, medication treatment and teach disease management Reason for physical therapy: home safety and mobility, therapeutic exercises, restore joint function, gait/transfer training, assess need for DME, ADL training, energy conservation and other MD Overseeing Care: Manan Reinoso Homebound: Leaving the home is medically contraindicated at this time without the asist of a device and/or another person due th the listed conditions above and below. Reason homebound: weakness related to hospital stay Homebound supporting statement: Patient is generalized weak has multiple comorbidities including right lower extremity cellulitis status post I and D-need help with the appointments, wound care and PT Certification: Based on the above findings, I certify that this patient is confined to the home and needs intermittent intermediate care, physical therapy and/or speech therapy, or continues to need occupational therapy. The patient is under my care, and I have initiated the establishment of the plan of care. The patient will be followed by a physician who will periodically review the plan of care. Time Spent With Patient Time: Total time managing care of this patient today ____ minutes.
[2024-04-11] MEDS: Amoxicillin/Potassium Clav 875 MG TABLET PO (15:08)
== END 2024-04-11 16:08 | disposition home health service (06) | DRG 581 ==
LOC: HO.ED 11:41 → HO.EDOVER 12:41 → HO.S3 13:52
PROVIDERS: Admitting Provider Physician Assistant; Emergency Provider Emergency Medicine; PCP Internal Medicine; Visit Provider Internal Medicine
DX: L02.415 Cutaneous abscess of right lower limb (principal); E11.628 Type 2 diabetes mellitus with other skin complications; E11.65 Type 2 diabetes mellitus with hyperglycemia; L03.115 Cellulitis of right lower limb; N18.30 Chronic kidney disease, stage 3 unspecified; B95.61 Methicillin susceptible Staphylococcus aureus infection as the cause of diseases classified elsewhere; B02.9 Zoster without complications; E11.22 Type 2 diabetes mellitus with diabetic chronic kidney disease; Z86.718 Personal history of other venous thrombosis and embolism; Z79.4 Long term (current) use of insulin; Z79.01 Long term (current) use of anticoagulants; Z79.82 Long term (current) use of aspirin; Z79.899 Other long term (current) drug therapy
CPT/HCPCS: 10030; 36415; 73700; 76882; 80048; 80053; 80202; 82565; 82947; 83036; 85025; 85027; 85652; 86140; 87040; 87070; 87073; 87077; 87185; 87186; 87205; 93971; 97162; 99285; J2543; J3370; J3371

== ENCOUNTER 2024-04-05 12:28 | Outpatient (BNV) | payer MEDICARE, SELFPAY | END 2024-04-07 14:00 | PROVIDERS: Admitting Provider Physician Assistant; Emergency Provider Emergency Medicine; PCP Internal Medicine; Visit Provider Physician Assistant Surgical | DX: L03.115 Cellulitis of right lower limb (principal) | CPT/HCPCS: 10030 ==

== ENCOUNTER → 2024-04-05 12:28 | Outpatient (BNV) | payer MEDICARE, SELFPAY | PROVIDERS: Admitting Provider Physician Assistant; Emergency Provider Emergency Medicine; PCP Internal Medicine; Visit Provider Physician Assistant | DX: L03.115 Cellulitis of right lower limb (principal) | CPT/HCPCS: 99223; 99231; 99232; 99239; G0180 ==

== ENCOUNTER → 2024-04-05 12:28 | Outpatient (BNV) | payer MEDICARE, SELFPAY | PROVIDERS: Admitting Provider Physician Assistant; Emergency Provider Emergency Medicine; PCP Internal Medicine; Visit Provider Physician Assistant Surgical | DX: L03.115 Cellulitis of right lower limb (principal) | CPT/HCPCS: 10060; 99024; 99222 ==

== ENCOUNTER 2024-04-20 14:11 | Outpatient (AMB) | payer MEDICARE, SELFPAY ==
--- NOTE | 2024-04-20 14:37 | A.OFFVIS_ITS ---
Vital Signs 04/20/24 14:44 Weight 238 lb BP 93/55 L Blood Pressure Location Rt brachial Position Sitting Pulse 76 Intake Visit Reasons: right leg wound Intake Note: Patient is seen in office for ER follow up visit, cellulitis of the right leg X2m Pt c/o: oozing, inflamed. Currently on doxycycline and amoxicillin. ER: 04/05/24 Electronics Supervisor Required: No Accompanied by: girlfriend Taz Allergies almond [ALMONDS] Allergy (Severe, Verified 04/20/24 14:43) THROAT CLOSES pecan nut [PECAN] Allergy (Severe, Verified 04/20/24 14:43) THROAT CLOSES HPI Comments Details: Patient presents with a significant other. For follow-up status post recent hospitalization for right lower lateral leg infection. He is undergoing local wound care with packing changes and dressing changes daily. No other new issues or complaints. I saw the patient in the hospital. FORMERLY [facility], [facility] Medical History Osteomyelitis CVA (cerebral vascular accident) DVT (deep venous thrombosis) BPH (benign prostatic hyperplasia) Frequency-urgency syndrome Subacute osteomyelitis of right foot Enlarged prostate without lower urinary tract symptoms (luts) History of elevated PSA Surgical History History of surgery Social History Household Members: Family Housing: House Do you presently have visiting nurse or other home services: Yes Alcohol intake: never Patient Tobacco Use Status: Never used Tobacco Second Hand Smoke Exposure: No service: No Physical Exam Vital Signs: Last Vital Signs Pulse 76 04/20/24 14:44 BP 93/55 L 04/20/24 14:44 Extrem Other: Right lower extremity wound is healing uneventfully. Cellulitis is nearly resolved. Patient has a small indurated area which is being packed measuring approximately 3 x 1 cm. No evidence of any purulence. Dressing was applied. Assessment & Plan Assessment & Plan (1) Cellulitis of leg, right: Code(s): L03.115 - Cellulitis of right lower limb Category: Surgical Plan Patient and significant other have been given local wound instructions including contributing packing and daily dressing changes, may shower, elevate extremity as much as possible, and in all probability this will take 2-4 more weeks to heal secondary to its location, and patient was diabetes. All questions answered. Coding Level of Care Code Est Pt Level 4 (51772) Diagnoses Cellulitis of leg, right L03.115
[2024-04-20 14:44] VITALS: BP 93/55; PULSE 76
== END 2024-04-20 14:58 | disposition home or self-care (01) ==
PROVIDERS: PCP Internal Medicine; Visit Provider Surgery
DX: L03.115 Cellulitis of right lower limb (principal)
CPT/HCPCS: 99213

== ENCOUNTER → 2024-04-20 14:11 | Outpatient (BNVA) | payer MEDICARE, SELFPAY | PROVIDERS: PCP Internal Medicine; Visit Provider Surgery | DX: S81.801A Unspecified open wound, right lower leg, initial encounter (principal); L03.115 Cellulitis of right lower limb; X58.XXXA Exposure to other specified factors, initial encounter; Y93.9 Activity, unspecified; Y92.9 Unspecified place or not applicable; Y99.9 Unspecified external cause status; Z79.2 Long term (current) use of antibiotics; Z79.899 Other long term (current) drug therapy | CPT/HCPCS: 99212 ==

== ENCOUNTER 2024-05-11 14:25 | Outpatient (AMB) | payer MEDICARE, MEDICAID, SELFPAY ==
--- NOTE | 2024-05-11 14:26 | A.OFFVIS_ITS ---
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 Cst Required: No Accompanied by: Spouse Allergies almond [ALMONDS] Allergy (Severe, Verified 04/20/24 14:43) THROAT CLOSES pecan nut [PECAN] Allergy (Severe, Verified 04/20/24 14:43) THROAT CLOSES Medication List - Last Reconciled 05/11/24 by Ander Pollack MD apixaban 5 mg PO BID aspirin 81 mg PO DAILY cholecalciferol (vitamin D3) (Vitamin D3) 25 mcg PO DAILY cholestyramine (with sugar) 4 gram 4 grams PO BID PRN cyanocobalamin (vitamin B-12) 500 mcg PO DAILY diphenoxylate-atropine 2.5-0.025 mg 2 tabs PO TID PRN empagliflozin (Jardiance) 25 mg PO DAILY ferrous sulfate (FeroSul) 325 mg PO DAILY finasteride 5 mg PO DAILY gabapentin 100 mg PO TID PRN hydrocodone-acetaminophen 5-300 mg 1 tab PO BID PRN insulin aspart U-100 (Novolog U-100 Insulin aspart) 30 units subcut TID insulin glargine (Lantus Solostar U-100 Insulin) 38 units subcut BID magnesium oxide 400 mg PO BID@0900,1700 metoprolol tartrate 12.5 mg PO BID midodrine 10 mg PO BID@0900,1700 [id number]-bwniiukbuMe-viuzmqroH 3.5-400-5,000 wp-eful-fzyv (Triple Antibiotic) 1 appl topical QD-BID pantoprazole 40 mg PO DAILY@0630 pen needle, diabetic (Easy Touch) As directed polyethylene glycol 3350 17 grams PO DAILY PRN rosuvastatin 40 mg PO BEDTIME tadalafil (Cialis) 10 mg PO .PRN PRN 90 days tadalafil 5 mg PO DAILY 90 days terazosin 5 mg PO BEDTIME 90 days valacyclovir 1,000 mg PO Q12H HPI Comments Details: Kirby is here for consultation regarding coronary artery disease. He has been seen at [facility] in the past but he would like to move to [place] for convenience. Per available records, history of coronary disease, strokes, pulmonary embolism and many comorbidities. He still has some residual effects from the stroke and comes with a walker. Within limits of his activity, does not have any clear-cut symptoms like angina or shortness of breath. Seems to be getting along mostly okay. He just would like to switch to our Cardiology group. [facility] Medical History (Updated 05/11/24 @ 15:09 by Ander Pollack MD) Atherosclerotic cardiovascular disease Osteomyelitis CVA (cerebral vascular accident) DVT (deep venous thrombosis) BPH (benign prostatic hyperplasia) Frequency-urgency syndrome Subacute osteomyelitis of right foot Enlarged prostate without lower urinary tract symptoms (luts) History of elevated PSA Surgical History History of surgery Family History Mother Heart attack Social History Household Members: Family Housing: House Do you presently have visiting nurse or other home services: Yes Alcohol intake: never Patient Tobacco Use Status: Never used Tobacco Second Hand Smoke Exposure: No service: No Review of Systems Const Denies chills, Denies daytime sleepiness, Denies fatigue, Denies fever(s), Denies poor appetite, Denies snoring, Denies stops breathing during sleep, Denies weakness, Denies weight gain and Denies weight loss Eyes Denies loss of vision ENT Denies dizziness and Denies hearing loss Card Denies chest pain, Denies irregular heart rhythm, Denies claudication, Denies leg edema, Denies lightheadedness, Denies palpitations, Denies dyspnea on exertion and Denies orthopnea Resp Denies cough, Denies excessive phlegm production, Denies dyspnea on exertion, Denies snoring and Denies wheezing GI Denies abdominal pain, Denies hematochezia, Denies change in bowel habits, Denies nausea and Denies vomiting Denies dysuria and Denies urinary frequency Musc Denies arthralgias, Denies muscle weakness, Denies numbness and Denies other Skin/Breast Denies nail changes and Denies rash Neuro Denies Abnormal speech present, Denies dizziness, Denies loss of vision, Denies memory loss, Denies numbness and Denies weakness Psych Denies depression and Denies memory loss Endo Denies fatigue and Denies palpitations Sky/Lymph Denies easy bruising Aller/Immun Denies wheezing Physical Exam Vital Signs: Last Vital Signs Pulse 68 05/11/24 14:31 BP 114/52 L 05/11/24 14:31 BMI result Body Mass Index 37.8 Const General: comfortable and no acute distress Orientation/consciousness: patient oriented x3 HEENT Other: Unremarkable Head: Yes normal to inspection Neck Neck: Yes normal visual inspection Chest Chest palpation & inspection: normal inspection of the chest Resp Auscultation: clear to auscultation bilaterally Cardio Palpation: normal PMI Heart sounds: S1 normal heart sound present, S2 normal heart sound present, no gallops, no murmurs and no rubs GI Palpation (GI): Soft to palpation Back/Spine/Pelvis Other: unremarkable Skin General skin exam: no rashes or lesions noted Neuro General: patient oriented x3 Speech: No Abnormal speech present Extrem General: Yes normal to inspection Psych Mental Status: mental status grossly normal Office Procedures EKG Details: EKG with underlying sinus rhythm at 68/Min; occasional PVCs; cannot exclude old inferior infar[place] [id number], Complete Assessment & Plan Assessment & Plan (1) Atherosclerotic cardiovascular disease: Code(s): I25.10 - Atherosclerotic heart disease of [place] coronary artery without angina pectoris Category: Medical Plan: Last cardiac catheterization in 2018; two-vessel CAD with progressive branch vessel disease of small diagonals. Heavily calcified LAD; not significantly changed from 2009. Previous stents in circumflex, RPL. He remains on aspirin statins. Check lipids. Clinically, no angina. (2) CVA (cerebral vascular accident): Code(s): I63.9 - Cerebral infarction, unspecified Category: Medical Plan: Per last [facility] discharge summary from 2020, multiple strokes x3. Lastly, recurrent stroke in left cerebral hemisphere following lumbar spine surgery in 2020. Per documentation, hypercoagulability workup was negative. 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 He was recommended to continue anticoagulation. (3) History of pulmonary embolism: Code(s): Z86.711 - Personal history of pulmonary embolism Category: Medical Plan: Subsegmental pulmonary embolism from 2020. On anticoagulation. It seems this was noted in the setting of stroke. (4) Orthostatic hypotension: Code(s): I95.1 - Orthostatic hypotension Category: Medical Plan: Described in prior records but patient states it is not a recent issue. He is listed to be on midodrine. Plan Discussed with significant other. Orders: Orders LDL Cholesterol Direct Today E78.2 - Mixed hyperlipidemia, I25.10 - Atherosclerotic heart disease of [place] coronary artery without angina pectoris Lipid Panel Today E78.5 - Hyperlipidemia, unspecified, I25.10 - Atherosclerotic heart disease of [place] coronary artery without angina pectoris CA echo transthoracic complete Today I25.10 - Atherosclerotic heart disease of [place] coronary artery without angina pectoris Coding Level of Care Code New Pt Level 4 (70871) Diagnoses Atherosclerotic cardiovascular disease I25.10 CVA (cerebral vascular accident) I63.9 History of pulmonary embolism Z86.711 Orthostatic hypotension I95.1 CPT Codes EKG - CPT: 81950-[id number], Complete ([id number])
[2024-05-11 14:31] VITALS: BP 114/52; PULSE 68; BMI 37.8
== END 2024-05-11 15:05 | disposition home or self-care (01) ==
PROVIDERS: PCP Internal Medicine; Visit Provider Internal Medicine
DX: I25.10 Atherosclerotic heart disease of native coronary artery without angina pectoris (principal); I63.9 Cerebral infarction, unspecified; Z86.711 Personal history of pulmonary embolism; I95.1 Orthostatic hypotension
CPT/HCPCS: 93010; 99204

== ENCOUNTER → 2024-05-11 14:25 | Outpatient (BNVA) | payer MEDICARE, MEDICAID, SELFPAY | PROVIDERS: PCP Internal Medicine; Visit Provider Internal Medicine | DX: I25.10 Atherosclerotic heart disease of native coronary artery without angina pectoris (principal); I10 Essential (primary) hypertension; I63.9 Cerebral infarction, unspecified; I95.1 Orthostatic hypotension; Z86.711 Personal history of pulmonary embolism; Z79.01 Long term (current) use of anticoagulants | CPT/HCPCS: 93005; 99202 ==

== ENCOUNTER → 2024-06-09 13:51 | Outpatient (REF) | payer MEDICARE, MEDICAID, SELFPAY ==
--- NOTE | 2024-06-09 13:54 | CA_ITS ---
Transthoracic Echocardiogram Patient (Last, First, Middle): Kirby Christianson C Gender: Male Date of : 1950 Age: 73 Procedure Date: 06/09/2024 Procedure Type: Transthoracic Echocardiogram Location: OP Height: 172.72 cm Weight: 111.13 kg BSA: 2.23 m2 Heart Rate: bpm BP: 130 / 70 mmHg Auto Body Technician: GULSHAN Referring MD: Ander Pollack MD Symptoms: I25.10 - Atherosclerotic heart disease of [place] coronary artery without... Study Quality: Adequate with contrast ECG Rhythm: Sinus Conclusions: - The left ventricular systolic function is normal. The calculated ejection fraction is 63% by biplane method. - No obvious valvular pathology seen on this study. Findings Procedure Information Contrast agent, definity, is being given per protocol without apparent complications. Left Ventricle Normal left ventricular cavity size. There is normal left ventricular wall thickness. The left ventricular systolic function is normal. The calculated ejection fraction is 63% by biplane method. There is no evidence of regional wall motion abnormalities. Diastolic function is normal for age. Focal hypertrophy of the basal septum. Right Ventricle Normal right ventricular cavity size and systolic function. Atria The left atrium is mildly dilated. The right atrium is normal in size. Aortic Valve There is a normal trileaflet aortic valve. There is no aortic valve stenosis. There is no aortic valve regurgitation. Mitral Valve The mitral valve appears normal. There is trace mitral valve regurgitation. There is no mitral valve stenosis. Pulmonic Valve The pulmonic valve is likely normal. Tricuspid Valve There is no tricuspid valve regurgitation. Tricuspid regurgitation envelope is inadequate for calculation of right ventricular systolic pressure. Great Vessels The asc aorta is normal in size. Venous The inferior vena cava is mildly dilated and collapses greater than 50% with inspiration. Pericardium/Pleural There is no evidence of pericardial effusion. Prior Study Comparison No significant change compared to prior study dated: 02/29/2020. Recommendations, Care & Conclusions No obvious valvular pathology seen on this study. Measurements 2D Linear Measurements IVSd: 0.96 0.6-0.9/0.6-1.0 cm LVIDd: 5.42 3.9-5.3/4.2-5.9 cm LVIDd Index: 2.43 2.4-3.2/2.2-3.1 cm/m2 LVIDs: 4.22 2.0-3.6 cm LVPWd: 0.90 0.7-1.1 cm LA Diam: 4.20 2.7-3.8/3.0-4.0 cm LAIDs Index: 1.88 1.5-2.3 cm/m2 LV Mass: 235.67 67-162/88-224 g LV Mass Index: 105.68 43-95/49-115 g/m2 LVOT Diam: 2.20 3.0+(-)1.3 cm 2D Systolic Function EF 4C: 66.00 >55% EF 2C: 58.50 >55% EF BiP: 63.30 >55% Mitral Valve MV Pk E: 0.87 MV PK A: 0.41 MV Decel Time: 230.00 E/A: 2.10 E'Lateral: 9.25 E'Medial: 6.20 E/E' Med: 14.00 E/E' Lat: 9.40 PHT: 67.00 MVA PHT: 3.28 Decel [place]ina: 3.78 Aortic Valve AoV Pk Rome: 1.05 AoV Mn [place]: 0.84 AoV VTI: 0.24 AoV Pk Grad: 4.00 Aov Mn Grad: 3.00 Cont.VTI: 3.08 LVOT LVOT Pk Rome: 0.93 LVOT Mn [place]: 0.63 LVOT VTI: 0.20 LVOT Pk Grad: 3.00 LVOT Mn Grad: 2.00 LVOT Diam: 2.20 LVOT Area: 3.80 Diastolic Function MV Pk E: 0.87 MV Pk A: 0.41 E/A: 2.10 E'Medial: 6.20 E/E' Med: 14.00 E' Laterial: 9.25 E/E' Lat: 9.40 Right Ventricle TAPSE (mm): 22.80 TVS' [place]: 11.20 Tricuspid Valve RA Press: 8.00 Great Vessels Aorta Sinus of Valsalva: 3.82 2.0-3.[address] [place]: 2.92 1.7-3.4 cm Ao Asc: 3.80 2.1-3.4 cm Updated in Other Vendor System with Status of Final Ander Pollack MD electronically signed on 06/10/2024 1:13:20 PM with status of Final
== END ==
LOC: HO.CARD 13:51
PROVIDERS: PCP Internal Medicine; Visit Provider Internal Medicine
DX: I25.10 Atherosclerotic heart disease of native coronary artery without angina pectoris (principal)
CPT/HCPCS: 93306; Q9957

== ENCOUNTER → 2024-06-09 13:54 | Outpatient (BNV) | payer MEDICARE, MEDICAID, SELFPAY | PROVIDERS: PCP Internal Medicine; Visit Provider Internal Medicine | DX: I42.2 Other hypertrophic cardiomyopathy (principal); I25.10 Atherosclerotic heart disease of native coronary artery without angina pectoris | CPT/HCPCS: 93306 ==

== ENCOUNTER 2024-08-11 15:00 | Outpatient (AMB) | payer MEDICARE, MEDICAID, SELFPAY ==
[2024-08-11 15:13] VITALS: BP 118/54; PULSE 66; BMI 37.6
--- NOTE | 2024-08-11 15:13 | A.OFFVIS_ITS ---
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 Required: No Accompanied by: Spouse Allergies almond [ALMONDS] Allergy (Severe, Verified 04/20/24 14:43) THROAT CLOSES pecan nut [PECAN] Allergy (Severe, Verified 04/20/24 14:43) THROAT CLOSES Medication List - Last Reconciled 08/11/24 by Ander Pollack MD apixaban 5 mg PO BID aspirin 81 mg PO DAILY cholecalciferol (vitamin D3) (Vitamin D3) 25 mcg PO DAILY cholestyramine (with sugar) 4 gram 4 grams PO BID PRN cyanocobalamin (vitamin B-12) 500 mcg PO DAILY diphenoxylate-atropine 2.5-0.025 mg 2 tabs PO TID PRN empagliflozin (Jardiance) 25 mg PO DAILY ferrous sulfate (FeroSul) 325 mg PO DAILY finasteride 5 mg PO DAILY gabapentin 100 mg PO TID PRN hydrocodone-acetaminophen 5-300 mg 1 tab PO BID PRN insulin aspart U-100 (Novolog U-100 Insulin aspart) 30 units subcut TID insulin glargine (Lantus Solostar U-100 Insulin) 38 units subcut BID magnesium oxide 400 mg PO BID@0900,1700 metoprolol tartrate 12.5 mg PO BID midodrine 10 mg PO BID@0900,1700 [id number]-[id number]-ojkgdlrmF 3.5-400-5,000 uy-jmhb-fxhm (Triple Antibiotic) 1 appl topical QD-BID pantoprazole 40 mg PO DAILY@0630 pen needle, diabetic (Easy Touch) As directed polyethylene glycol 3350 17 grams PO DAILY PRN rosuvastatin 40 mg PO BEDTIME tadalafil (Cialis) 10 mg PO .PRN PRN 90 days tadalafil 5 mg PO DAILY 90 days terazosin 5 mg PO BEDTIME 90 days valacyclovir 1,000 mg PO Q12H HPI Comments Details: Kirby returns for follow-up. Recently seen in consultation regarding coronary disease. Previously at [facility] but would like to switch to [facility] for convenience. Per available records, history of coronary disease, strokes, pulmonary embolism and many comorbidities. He still has some residual effects from the stroke and comes with a walker. However, it seems that he can still walk couple of miles or so with a walker. Within limits of this activity, he does not have any symptoms like angina or shortness of breath. ON LICENSE OF [facility] Medical History (Updated 08/11/24 @ 16:19 by Ander Pollack MD) Atherosclerotic cardiovascular disease Osteomyelitis CVA (cerebral vascular accident) DVT (deep venous thrombosis) BPH (benign prostatic hyperplasia) Frequency-urgency syndrome Subacute osteomyelitis of right foot Enlarged prostate without lower urinary tract symptoms (luts) History of elevated PSA Surgical History History of surgery Family History Mother Heart attack Social History Household Members: Family Housing: House Do you presently have visiting nurse or other home services: Yes Alcohol intake: never Patient Tobacco Use Status: Never used Tobacco Second Hand Smoke Exposure: No service: No Review of Systems Const Denies chills, Denies fatigue, Denies fever(s), Denies weight gain and Denies weight loss ENT Denies dizziness Card Denies chest pain, Denies leg edema, Denies lightheadedness, Denies palpitations, Denies dyspnea on exertion, Denies orthopnea and Denies other Resp Denies cough and Denies dyspnea on exertion GI Denies hematochezia and Denies change in stool character Musc Denies abnormal gait, Denies muscle weakness, Denies numbness, Denies radiating pain into limb and Denies tingling Neuro Denies abnormal gait, Denies dizziness, Denies numbness and Denies tingling Endo Denies fatigue and Denies palpitations Physical Exam Vital Signs: Last Vital Signs Pulse 66 08/11/24 15:13 BP 118/54 L 08/11/24 15:13 BMI result Body Mass Index 37.6 Const General: comfortable and no acute distress Orientation/consciousness: patient oriented x3 HEENT Other: Unremarkable Head: Yes normal to inspection Neck Neck: Yes normal visual inspection Chest Chest palpation & inspection: normal inspection of the chest Resp Auscultation: clear to auscultation bilaterally Cardio Palpation: normal PMI Heart sounds: S1 normal heart sound present, S2 normal heart sound present, no gallops, no murmurs and no rubs GI Palpation (GI): Soft to palpation Back/Spine/Pelvis Other: unremarkable Skin General skin exam: no rashes or lesions noted Neuro General: patient oriented x3 Extrem General: Yes normal to inspection Psych Mental Status: mental status grossly normal Assessment & Plan Assessment & Plan (1) Atherosclerotic cardiovascular disease: Code(s): I25.10 - Atherosclerotic heart disease of [place] coronary artery without angina pectoris Category: Medical Plan: Last cardiac catheterization in 2019; two-vessel CAD with progressive branch vessel disease of small diagonals. Heavily calcified LAD; not significantly changed from 2010. Previous stents in circumflex, RPL. In the recent echocardiogram, LVEF 63%. No significant wall motion abnormalities or valvular findings. Clinically, no angina. He remains on aspirin, statins. Patient will forward the last lipids from PCP. (2) CVA (cerebral vascular accident): Code(s): I63.9 - Cerebral infarction, unspecified Category: Medical Plan: Per last [facility] discharge summary from 2020, multiple strokes x3. Lastly, recurrent stroke in left cerebral hemisphere following lumbar spine surgery in 2020. Per documentation, hypercoagulability workup was negative. 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 He was recommended to continue anticoagulation. He is on Eliquis. (3) PAF (paroxysmal atrial fibrillation): Code(s): I48.0 - Paroxysmal atrial fibrillation Category: Medical Plan: Per cardiology notes, has had brief atrial fibrillation in the past. There is mention of 'possible' atrial fibrillation for 4 minutes in a prior Holter. (4) History of pulmonary embolism: Code(s): Z86.711 - Personal history of pulmonary embolism Category: Medical Plan: Subsegmental pulmonary embolism from 2020. On anticoagulation. It seems this was noted in the setting of stroke. (5) Orthostatic hypotension: Code(s): I95.1 - Orthostatic hypotension Category: Medical Plan: Described in prior records but patient states it is not a recent issue. He is listed to be on midodrine. Plan Discussed with significant other. They will return in 1 year. In the interim, they will call with concerns. Coding Level of Care Code Est Pt Level 4 (04593) Diagnoses Atherosclerotic cardiovascular disease I25.10 CVA (cerebral vascular accident) I63.9 PAF (paroxysmal atrial fibrillation) I48.0 History of pulmonary embolism Z86.711 Orthostatic hypotension I95.1
== END 2024-08-11 15:33 | disposition home or self-care (01) ==
PROVIDERS: PCP Internal Medicine; Visit Provider Internal Medicine
DX: I25.10 Atherosclerotic heart disease of native coronary artery without angina pectoris (principal); I63.9 Cerebral infarction, unspecified; I48.0 Paroxysmal atrial fibrillation; Z86.711 Personal history of pulmonary embolism; I95.1 Orthostatic hypotension
CPT/HCPCS: 99214

== ENCOUNTER → 2024-08-11 15:00 | Outpatient (BNVA) | payer MEDICARE, MEDICAID, SELFPAY | PROVIDERS: PCP Internal Medicine; Visit Provider Internal Medicine | DX: I25.10 Atherosclerotic heart disease of native coronary artery without angina pectoris (principal); I48.0 Paroxysmal atrial fibrillation; I95.1 Orthostatic hypotension; Z86.73 Personal history of transient ischemic attack (TIA), and cerebral infarction without residual deficits; Z86.711 Personal history of pulmonary embolism | CPT/HCPCS: 99212 ==

== ENCOUNTER 2024-08-17 08:50 | Outpatient (REF) | payer MEDICARE, MEDICAID, SELFPAY ==
[2024-08-17 11:35] LABS: Prostate Specific Antigen 0.96 ng/mL (<0.05-4.0)
== END 2024-08-17 08:51 | disposition home or self-care (01) ==
LOC: HO.HMGCLDS 08:50
PROVIDERS: PCP Internal Medicine; Visit Provider Nurse Practitioner Family
DX: R97.20 Elevated prostate specific antigen [PSA] (principal); Z12.5 Encounter for screening for malignant neoplasm of prostate
CPT/HCPCS: 36415; 84153

== ENCOUNTER 2024-08-27 15:54 | Outpatient (AMB) | payer MEDICARE, MEDICAID, SELFPAY ==
--- NOTE | 2024-08-27 16:12 | MHC.OFFVIS ---
Intake Visit Reasons: 4M/PSA(set) Intake Note: Patient is present for follow up BPH/Nocturia Urology Medications: tadalafil, terazosin, finasteride Blood Thinner: Apixaban, aspirin PVR: 30ml's Electrician Substation Supervisor Required: No Accompanied by: Spouse Allergies almond [ALMONDS] Allergy (Severe, Verified 08/27/24 16:19) THROAT CLOSES pecan nut [PECAN] Allergy (Severe, Verified 08/27/24 16:19) THROAT CLOSES Medication List - Last Reconciled 08/27/24 by NAKITA Ortiz- apixaban 5 mg PO BID aspirin 81 mg PO DAILY cholecalciferol (vitamin D3) (Vitamin D3) 25 mcg PO DAILY cholestyramine (with sugar) 4 gram 4 grams PO BID PRN cyanocobalamin (vitamin B-12) 500 mcg PO DAILY diphenoxylate-atropine 2.5-0.025 mg 2 tabs PO TID PRN empagliflozin (Jardiance) 25 mg PO DAILY ferrous sulfate (FeroSul) 325 mg PO DAILY finasteride 5 mg PO DAILY gabapentin 100 mg PO TID PRN hydrocodone-acetaminophen 5-300 mg 1 tab PO BID PRN insulin aspart U-100 (Novolog U-100 Insulin aspart) 30 units subcut TID insulin glargine (Lantus Solostar U-100 Insulin) 38 units subcut BID magnesium oxide 400 mg PO BID@0900,1700 metoprolol tartrate 12.5 mg PO BID midodrine 10 mg PO BID@0900,1700 jlyudrwy-zpglyqquyXw-zhlsrtwcK 3.5-400-5,000 ay-hdmt-upxy (Triple Antibiotic) 1 appl topical QD-BID pantoprazole 40 mg PO DAILY@0630 pen needle, diabetic (Easy Touch) As directed polyethylene glycol 3350 17 grams PO DAILY PRN rosuvastatin 40 mg PO BEDTIME tadalafil (Cialis) 10 mg PO .PRN PRN 90 days tadalafil 5 mg PO DAILY 90 days terazosin 5 mg PO BEDTIME 90 days valacyclovir 1,000 mg PO Q12H HPI Comments Details: Kirby is a very pleasant 73 year old male patient of Dr. Reinoso who is accompanied by his at today's visit. He has a past medical history of BPH, CVA, DVT, enlarged prostate with LUTS, ED, frequency urgency syndrome, history of elevated PSA, and osteomyelitis. He presents to the office today for follow-up of his lower urinary tract symptoms, erectile dysfunction associated with diabetes, and elevated PSA. When asked patient reports to be doing and feeling well. He denies having had any bothersome urinary issues or concerns since his last office visit here approximately 6 months ago. When asked he reports compliance with finasteride, terazosin, and Cialis as prescribed. When asked he currently denies any bothersome urinary issues or concerns. He reports to be happy with current voiding parameters. He otherwise denies urinary urgency, urinary frequency, incontinence, hematuria, dysuria, foul smelling urine, changes to urinary stream, flank pain, fever, and or chills. He reports noting himself to have morning erections 5mg of Cialis daily however does not feel they are adequate for penetrations. Discussed at length patients comorbidities in relation to erectile dysfunction. Discussed lifestyle modifications to assist with ED. He otherwise offers no issues or concerns at this time. In office urinalysis results reviewed with the patient today. PVR 30 mL. PSA 03/09 2.5, 09/08 1.0 PREVIOUS OFFICE NOTE Lower urinary tract symptoms with elevated PSA Followed for BPH symptoms Prior medication includes doxazosin which he ceased secondary to blood pressure issues - had been on Myrbetriq but had recurrent stroke with high residual - prior laser prostatectomy Baseline suffered stroke in February 2020 PSA - May 2019 3.0 - May 2020 4.7, 10/06 2.9 -August 2023--1.2 -February 2024 2.5 Office cystoscopy - 09/06 right lateral prostatic regrowth Prostatic regrowth source of microscopic hematuria Good response to combination finasteride and tadalafil with urinary control Therapeutic plan - continue with medication and PSA surveillance Erectile dysfunction diabetic Good response to daily tadalafil FOR[facility]LY [facility], [facility] Medical History Atherosclerotic cardiovascular disease Osteomyelitis CVA (cerebral vascular accident) DVT (deep venous thrombosis) BPH (benign prostatic hyperplasia) Frequency-urgency syndrome Subacute osteomyelitis of right foot Enlarged prostate without lower urinary tract symptoms (luts) History of elevated PSA Surgical History History of surgery Family History Mother Heart attack Social History Household Members: Family Housing: House Do you presently have visiting nurse or other home services: Yes Alcohol intake: never Patient Tobacco Use Status: Never used Tobacco Second Hand Smoke Exposure: No service: No Review of Systems Const Reports as per HPI Eyes Reports no additional complaints ENT Reports no additional complaints Card Reports as per HPI Resp Reports no additional complaints GI Reports no additional complaints Reports as per HPI Musc Reports as per [facility] Neuro Reports as per [facility] Psych Reports as per [facility] Endo Reports as per HPI Physical Exam Const General: cooperative, comfortable, no acute distress, well developed, alert and awake Nutritional Appearance: overweight Orientation/consciousness: patient oriented x3 Limitations: ambulation with walker HEENT Head: Yes normal to inspection, Yes normocephalic and Yes atraumatic Ears: hearing grossly normal bilaterally Eyes General: appearance normal, both eyes and all related structures Neck Neck: Yes normal visual inspection and Yes trachea midline Chest Chest palpation & inspection: normal inspection of the chest Resp Effort & Inspection: normal respiratory effort and able to speak in complete sentences Cardio Rate: regular rate GI Inspection: Yes normal to inspection General: Yes no CVA tenderness Back/Spine/Pelvis Back: no CVA tenderness Skin Other: as per HPI; right sided lower leg cellulitis. Open areas to the right lateral aspect of the leg. Neuro General: patient oriented x3 Extrem General: Yes normal to inspection Psych Appearance: grossly normal and well kempt Mental Status: mental status grossly normal Speech and movement: Normal speech and movement present and Clear speech present Affect: normal affect Attitude: cooperative Thought process: Normal thought process present Thought content: Normal thought content present Insight: Fair insight present (Psych) Judgement: Fair judgement present (Psych) Office Procedures Post Void Residual Post Residual Void Post Void Residual (PVR): 30 40257-Bbuf Void Residual by ultrasound Assessment & Plan Assessment & Plan (1) Erectile dysfunction: Code(s): N52.9 - Male erectile dysfunction, unspecified Category: Medical (2) Urinary urgency: Code(s): R39.15 - Urgency of urination Category: Medical (3) Nocturia more than twice per night: Code(s): R35.1 - Nocturia Category: Medical (4) BPH w urinary obs/LUTS: Code(s): N40.1 - Benign prostatic hyperplasia with lower urinary tract symptoms; N13.8 - Other obstructive and reflux uropathy Category: Medical (5) Erectile dysfunction associated with type 2 diabetes mellitus: Code(s): E11.69 - Type 2 diabetes mellitus with other specified complication; N52.1 - Erectile dysfunction due to diseases classified elsewhere Category: Medical Plan In office urinalysis results reviewed with the patient today; as noted above. PVR 30 mL. Recent PSA results reviewed with the patient today; Continue Cialis, finasteride, and terazosin as discussed and prescribed; refills provided. Discussed decreasing dose of finasteride to 3 times per week. Discussed lifestyle modifications to assist with erectile dysfunction. Patient currently denies any bothersome urinary issues or concerns. He reports be happy with current voiding parameters. Will obtain redraw of PSA in 6 months. Follow-up in 6 months with lab to be completed prior and PVR at next office visit; or sooner with any issues, concerns, and or questions. Orders: Orders AMB Post Void Residual by ultrasound Today R39.15 - Urgency of urination Prostate Specific Antigen 6 Months R97.20 - Elevated prostate specific antigen [PSA] AMB Urinalysis Automated Today Z13.9 - Encounter for screening, unspecified Patient Instructions: The patient had an opportunity to ask questions regarding the treatment plan. All questions were answered. Physical exam, labs, and imaging were discussed and reviewed in detail. As well as risks, benefits, and discussion of treatment choices. No major barriers to understanding were identified. The patient expressed understanding and agreement with the above treatment plan. The patient was made aware they should contact our office by phone for worsening of their current condition, the appearance of new symptoms, or with any questions or concerns. Compliance is encouraged with any medications and follow up testing that is ordered. It is a privilege to be allowed the opportunity to participate in? your urological care.? Again, if you have any questions or concerns If you have any questions or concerns please do not hesitate to contact me. The office is [phone]. This note is constructed using voice recognition software. While every effort has been made to ensure accuracy hazardous materials handler errors may have been included. Yours sincerely, NAKITA Ortiz-BC Coding Level of Care Code Est Pt Level 3 (50478) Complex EM visit Add On G2211 Diagnoses Erectile dysfunction N52.9 Urinary urgency R39.15 Nocturia more than twice per night R35.1 BPH w urinary obs/LUTS N40.1; N13.8 Erectile dysfunction associated with type 2 diabetes mellitus E11.69; N52.1 CPT Codes Post Residual Void - PVR CPT Code: 13523-Lfgr Void Residual by ultrasound ([id number])
== END 2024-08-27 16:36 | disposition home or self-care (01) ==
PROVIDERS: PCP Internal Medicine; Visit Provider Nurse Practitioner Family
DX: N40.1 Benign prostatic hyperplasia with lower urinary tract symptoms (principal); R39.15 Urgency of urination; R35.1 Nocturia; N52.9 Male erectile dysfunction, unspecified; N13.8 Other obstructive and reflux uropathy; E11.69 Type 2 diabetes mellitus with other specified complication; N52.1 Erectile dysfunction due to diseases classified elsewhere
CPT/HCPCS: 99213; G2211

== ENCOUNTER → 2024-08-27 15:54 | Outpatient (BNVA) | payer MEDICARE, MEDICAID, SELFPAY | PROVIDERS: PCP Internal Medicine; Visit Provider Nurse Practitioner Family | DX: N40.1 Benign prostatic hyperplasia with lower urinary tract symptoms (principal); N13.8 Other obstructive and reflux uropathy; R39.15 Urgency of urination; R35.1 Nocturia; N52.1 Erectile dysfunction due to diseases classified elsewhere; E11.69 Type 2 diabetes mellitus with other specified complication; N52.9 Male erectile dysfunction, unspecified | CPT/HCPCS: 51798; 99212 ==

== ENCOUNTER 2024-10-12 16:07 | Outpatient (AMB) | payer MEDICARE, MEDICAID, SELFPAY ==
--- NOTE | 2024-10-12 16:12 | MHC.OFFVIS ---
Vital Signs 10/12/24 16:24 Height 5 ft 7.5 in Weight 236 lb BMI 36.4 BP 134/76 Blood Pressure Location Lt brachial Position Sitting Pulse 86 Intake Visit Reasons: diarrhea/Joycelyn pt Intake Note: Patient follow up for diarrhea/ Joycelyn pt michael was 08/20/2023. Patient cc: swallowing problems with solid, denies any other GI issues. Criminalist Technician Required: No Accompanied by: Family/Other Allergies almond [ALMONDS] Allergy (Severe, Verified 10/12/24 16:12) THROAT CLOSES pecan nut [PECAN] Allergy (Severe, Verified 10/12/24 16:12) THROAT CLOSES HPI Comments Details: 74 y.o M with PMH of hx of paroxysmal PE and CVA on eliquis, T2DM, who is following up. Prev [facility] [place]. Here with . Pt reports intermittnet difficulty swallowing solid foods. Certain textures bother him more. Often has to do double swallows or drink liquids on top. Does not seem to be progressing to liquids. No unintentional weight loss. In addition, he also has chronic diarrhea. This has been going on x 1 year. No rectal bleeding noted but he does have mild anemia from labs March 2024. No recent labs available. He was also seen at [facility] in Aug 2023 for sigmoid wall thickening LIKELY diverticulitis but did not have follow up colo. Plan was for EGD/colo last year however pt was hesitant to proceed due to need for interruption in anticoagulation. Reports that last time he had stopped his anticoagulation for a surgery he ended up having a stroke on day 2 or 3 of holding blood thinner. Now his neurologist has advised him to not interrupt anticoagulation at all unless absolutely necessary. [facility] Medical History Atherosclerotic cardiovascular disease Osteomyelitis CVA (cerebral vascular accident) DVT (deep venous thrombosis) BPH (benign prostatic hyperplasia) Frequency-urgency syndrome Subacute osteomyelitis of right foot Enlarged prostate without lower urinary tract symptoms (luts) History of elevated PSA Surgical History History of surgery Family History Mother Heart attack Social History Household Members: Family Housing: House Do you presently have visiting nurse or other home services: Yes Alcohol intake: never Patient Tobacco Use Status: Never used Tobacco Second Hand Smoke Exposure: No service: No Review of Systems Const All systems reviewed & are unremarkable except as noted in HPI and below Physical Exam Vital Signs: Last Vital Signs Pulse 86 10/12/24 16:24 BP 134/76 10/12/24 16:24 BMI result Body Mass Index 36.4 Assessment & Plan Assessment & Plan (1) Dysphagia: Code(s): R13.10 - Dysphagia, unspecified Category: Medical (2) Anemia: Code(s): D64.9 - Anemia, unspecified Category: Medical (3) PAF (paroxysmal atrial fibrillation): Code(s): I48.0 - Paroxysmal atrial fibrillation Category: Medical (4) CVA (cerebral vascular accident): Code(s): I63.9 - Cerebral infarction, unspecified Category: Medical (5) Chronic diarrhea: Code(s): K52.9 - Noninfective gastroenteritis and colitis, unspecified Category: Medical (6) History of colon polyps: Code(s): Z86.010 - Personal history of colon polyps Category: Medical (7) Change in bowel function: Code(s): R19.8 - Other specified symptoms and signs involving the digestive system and abdomen Category: Medical Plan Reviewed with pt and his that an EGD and colonoscopy is strongly indicated for i) dysphagia ii) anemia iii) change in bowel habits iv) hx of diverticulitis and v) hx of polyps. He is aware that will need to hold eliquis x 2 days prior. We will obv need to get clearance from neurology before tehse procedures. PEG prep discussed and instructions handed out. In the meantime, updated labs ordered Barium swallow timing of procedures contingent on neuro records Orders: Orders Comprehensive Met. Panel 10/13/24 I48.0 - Paroxysmal atrial fibrillation, I63.9 - Cerebral infarction, unspecified, Z86.711 - Personal history of pulmonary embolism, I25.10 - Atherosclerotic heart disease of [place] coronary artery without angina pectoris, Z86.010 - Personal history of colon polyps, K52.9 - Noninfective gastroenteritis and colitis, unspecified, D64.9 - Anemia, unspecified Complete Blood Count no Diff 10/13/24 I48.0 - Paroxysmal atrial fibrillation, I63.9 - Cerebral infarction, unspecified, Z86.711 - Personal history of pulmonary embolism, I25.10 - Atherosclerotic heart disease of [place] coronary artery without angina pectoris, Z86.010 - Personal history of colon polyps, K52.9 - Noninfective gastroenteritis and colitis, unspecified, D64.9 - Anemia, unspecified Prothrombin Time INR 10/13/24 I48.0 - Paroxysmal atrial fibrillation, I63.9 - Cerebral infarction, unspecified, Z86.711 - Personal history of pulmonary embolism, I25.10 - Atherosclerotic heart disease of [place] coronary artery without angina pectoris, Z86.010 - Personal history of colon polyps, K52.9 - Noninfective gastroenteritis and colitis, unspecified, D64.9 - Anemia, unspecified IRON PROFILE 10/13/24 I48.0 - Paroxysmal atrial fibrillation, I63.9 - Cerebral infarction, unspecified, Z86.711 - Personal history of pulmonary embolism, I25.10 - Atherosclerotic heart disease of [place] coronary artery without angina pectoris, Z86.010 - Personal history of colon polyps, K52.9 - Noninfective gastroenteritis and colitis, unspecified, D64.9 - Anemia, unspecified Ferritin 10/13/24 I48.0 - Paroxysmal atrial fibrillation, I63.9 - Cerebral infarction, unspecified, Z86.711 - Personal history of pulmonary embolism, I25.10 - Atherosclerotic heart disease of [place] coronary artery without angina pectoris, Z86.010 - Personal history of colon polyps, K52.9 - Noninfective gastroenteritis and colitis, unspecified, D64.9 - Anemia, unspecified Hemoglobin A1c 10/13/24 E11.9 - Type 2 diabetes mellitus without complications [place] barium swallow 10/12/24 R13.10 - Dysphagia, unspecified Medications: New peg 3350-electrolytes 236-22.74-6.74 -5.86 gram (Golytely) as per split prep instructions, until fecal effluent is clear 240 mL PO Q10M 4,000 mL 0RF colonoscopy Coding Level of Care Code Est Pt Level 5 (06360) Diagnoses Dysphagia R13.10 Anemia D64.9 PAF (paroxysmal atrial fibrillation) I48.0 CVA (cerebral vascular accident) I63.9 Chronic diarrhea K52.9 History of colon polyps Z86.010 Change in bowel function R19.8
[2024-10-12 16:24] VITALS: BP 134/76; PULSE 86; BMI 36.4
--- OUTSIDE RECORDS SUMMARY | 2024-10-12 19:45 | XMS_ITS | Clinical Summary ---
Author Organization [employer] Address [address] [place] [address] Care Team Providers Care Treatment Plant Operator Name Role Phone Unavailable Primary Care Provider Unavailabl e Social History Tobacco Use Types Packs/Day Years Used Date Smoking Tobacco: Never Assessed Sex and Gender Information Value Date Recorded Sex Assigned at Male 07/16/2022 10:23 AM EDT Legal Sex Male 10:23 AM EDT Gender Identity Male 07/16/2022 10:23 AM EDT Sexual Orientation Straight 07/16/2022 10 :23 AM EDT Plan of Treatment Health Maintenance Due Date Last Done Comments CT Colonography 1952 Colonoscopy 1952 Colorectal Cancer Screening 1952 Depression Screening 1952 FIT DNA/Cologuard 1952 FIT 1952 FOBT 1952 Lipid Panel 1952 Sigmoidoscopy 1952 Alcohol/Substance Use Screening 1964 Tobacco Screening 1964 DTaP/Tdap/Td Vaccines (1 - Tdap) 1971 Zoster Vaccines (1 of 2) 2002 Pneumococcal Vaccine: 65+ Ye ars (1 of 1 - PCV) 2017 COVID-19 Vaccine ( - 2023-2 5 season) 2024 Influenza Vaccine (#1) 2024 RSV Patients and Pa tients Aged 60 years or older (1 - 1-dose 75+ series) 2027 HIB Vaccines Aged Out No longer eligi ble based on patient's age to complete this topic HPV Vaccines Aged Out No longer eligi ble based on patient's age to complete this topic Hepatitis A Vaccines Aged Out No long er eligible based on patient's age to complete this topic Hepatitis B Vaccines Aged Out No long er eligible based on patient's age to complete this topic IPV Vaccines Aged Out No longer eligi ble based on patient's age to complete this topic Meningococcal Vaccine Aged Out No francesca gayatri eligible based on patient's age to complete this topic RSV under 20 months Aged Out No longe r eligible based on patient's age to complete this topic Rotavirus Vaccines Aged Out No longer eligible based on patient's age to complete this topic
--- OUTSIDE RECORDS SUMMARY | 2024-10-12 19:45 | XMS_ITS | Encounter Summary ---
Author Name [facility] Organization [facility] Address [address] [place] [address] Care Team Providers Care Tassel Clipper Name Role Phone SHAW MOSCOSO Primary Care Provide r Unavailable Insurance Providers: All historical and current Section Date Range: From patient's date of to the date document was created. This section includes the names of all active insurance providers for the patient. Insurance Provider Type of Coverage Plan Name Start of Policy Coverage End of Policy Coverage Group Number Member ID Insurance Provider's Telephone Number Policy Strickland's Name Patient's Relationship to Policy Strickland [employer] INS PRESCRIPT ION MEDIC ARE D Sep 16, 2016 PDPIND [id number] DAYAMI BERGER IS PATIENT AETNA [facility] MEDICARE ADVANTAGE [facility] Feb 14, 2022 [phone] DAYAMI BERGER IS PATIENT MEDICAID MEDICAID [facility] Jul 17, 2015 MEDICAI D [id number] DAYAMI BERGER IS PATIENT MEDICARE ([facility]) MEDICARE (M) PART A Sep 16, 2010 PART A [id number] DAYAMI BERGER IS PATIENT MEDICARE ([place]) MEDICARE (M) PART B Sep 16, 2010 PART B [id number] [phone] DAYAMI BERGER IS PATIENT Selected Encounter This section includes the information on record at [place] for the Encounter. Date/Time Encounter Type Encounter Description Reason Pro vider Source Jun 17, 2024 06:11 PM Outpatient Encounter ADMIN PAT ACTIVTIES ([facility]) IHE Encounter Template Text not used by [place] Plan of Treatment: Future Appointments (+ 6 months) and Future Tests (+/- 45 days) The Plan of Treatment section includes future care activities for the [facility] [place] [facility] This section includes future appointments and future orders which are active, pending or scheduled. Future Appointments This section includes appointments that were scheduled to occur 6 months from the date of the Encounter, up to a maximum of 20 appointments. The data comes from all [place] treatment facilities. Appointment Date/Time Appointment Type Appointme nt Facility Name Jun 25, 2024 03:00 PM [facility] [place]ICINE [place] [facility] [place] [facility] Jul 09, 2024 03:00 PM [facility] [place] [facility] [place] [facility] Jul 10, 2024 03:00 PM AMBULATORY - MEDICINE [facility] Aug 27, 2024 01:00 PM [facility]AT[facility] [place]ICINE [place] [facility] [place] [facility] Oct 28, 2024 03:00 PM AM[facility]ULATORY [place]ICINE [place] [facility] [place] [facility] Nov 05, 2024 03:00 PM AM[facility]ULATORY [place]ICINE [place] [facility] [place] [facility] Nov 10, 2024 03:00 PM AM[facility]ULATORY - [place]ICINE [place] [facility] [place] [facility] Dec 15, 2024 03:00 PM AM[facility]ULATORY [place]ICINE [place] [facility] [place] [facility] Lab Results: +/- 30 days of the encounter This section includes the Chemistry and Hematology Lab Results on record with [place] for the patient. Radiology Reports and Pathology Reports are provided separately, in subsequent sections. Lab Results This section contains the Chemistry/Hematology Results that were resulted 30 days before or 30 daysafter the date of the Encounter. Date/Time Source Result Type Result - Unit Interpretation Reference Range Comment Jul 07, 2024 07:41 AM [facility] HEMOGLOBIN A1C PANEL Specimen Type: BLOOD Comment: Values obtained from A1C measurements can vary. For atypical A1C assays, a reported value of 7.0 could actually be between 6.72 and 7.28 if measured by a reference method. A reported value of 9.0 could actually be between 8.73 and 9.27. Ref: http://www.ngs p.org/CAPdata. asp Ordering Provider: AMBIKA KNIGHT Report Released Date/Time: Jul 09, 2023 03:20 PM Reporting Lab: [address] [address] Performing Lab: [address] [address] HEMOGLOBIN A1C 6.4 H 4.0-5.6 Jul 07, 2024 07:41 AM [facility] LIPID PANEL FASTING Specimen Type: SERUM No comment entered. Ordering Provider: AMBIKA KNIGHT Report Released Date/Time: Jul 09, 2023 03:20 PM Reporting Lab: [address] [address] Performing Lab: [address] [address] CHOLESTEROL 132 mg/dL TRIGLYCERIDE 110 mg/dL 0-150 LDL calculated 76 mg/dL 0-129 CHOL/HDL 3.9 HDL CHOLESTEROL 34 mg/dL L 40-60 Jul 07, 2024 07:41 AM [facility] LIVER FUNCTION Specimen Type: SERUM No comment entered. Ordering Provider: AMBIKA KNIGHT Report Released Date/Time: Jul 09, 2023 03:20 PM Reporting Lab: [address] [address] Performing Lab: [address] [address] PROTEIN,TOTAL 7.5 g/dL 6.0-8.3 ALBUMIN 4.2 g/dL 3.5-5.0 ALKALINE PHOSPHATASE 68 U/L 40-150 AST 23 U/L 5-34 ALT 29 U/L BILIRUBIN, TOTAL 0.4 mg/dL 0.2-1.2 Jul 07, 2024 07:41 AM [facility] BASIC METABOLIC PANEL (fasting) Specime n Type: SERUM No comment entered. Ordering Provider: AMBIKA KNIGHT Report Released Date/Time: Jul 09, 2023 03:20 PM Reporting Lab: [place] [address] [address] Performing Lab: [address] [address] UREA NITROGEN 24 mg/dL 7-25 GLUCOSE 200 mg/dL H 65-100 SODIUM 137 mmol/L 135-145 POTASSIUM 4.9 mmol/L 3.5-5.0 CHLORIDE 106 mmol/L 100-110 CO2 24 meq/L 20-30 CREATININE, Serum 1.59 mg/dL H 0.50-1.40 eGFR(CKD-EPI 2020) 46 mL/min L >60 Jul 07, 2024 07:41 AM [facility] TSH Specimen Type: SERUM No comment entered. Ordering Provider: AMBIKA KNIGHT Report Released Date/Time: Jul 09, 2023 03:20 PM Reporting Lab: [address] [address] Performing Lab: [address] [address] TSH 1.83 u[IU]/mL 0.35-5.00 Jul 07, 2024 07:41 AM [facility] URINALYSIS Specimen Type: URINE Comment: If Glucose = >500 and Ketones are positive, please alert the Physician. Ordering Provider: AMBIKA KNIGHT Report Released Date/Time: Jul 09, 2023 03:20 PM Reporting Lab: [address] [address] Performing Lab: [address] [address] UA COLOR Light-Yellow Yellow UA APPEARANCE Clear Clear UA GLUCOSE >1000 mg/dL Negative UA KETONES NEGATIVE mg/dL Negative UA BLOOD NEGATIVE mg/dL Negative UA PROTEIN 20 mg/dL Negative UA NITRITE NEGATIVE mg/dL Negative UA BILIRUBIN NEGATIVE mg/dL Negative UA SPECIFIC GRAVITY 1.031 H 1.016-1.022 UA pH 5.5 5.0-9.0 UA UROBILINOGEN Normal mg/dL <2.0 UA LEUKOCYTE NEGATIVE Negative Jul 07, 2024 07:41 AM [facility] CBC AND DIFF (AUTO) Specimen Type: BLOOD No comment entered. Ordering Provider: AMBIKA KNIGHT Report Released Date/Time: Jul 09, 2023 03:20 PM Reporting Lab: [facility] [address] [facility] [address] Performing Lab: [facility] [address] [facility] [address] WBC 7.74 10*3/uL 4.50-11.00 RBC 4.99 10*6/uL 4.23-5.66 HGB 14.6 g/dL 12.8-17 HCT 43.7 39.2-50.4 MCV 87.6 fL 82-99 MCHC 33.4 g/dL 30.8-35.1 PLT 241 10*3/uL 140-360 RDW-CV 13.5 12.0-16.0 MONO, ABS 0.68 10*3/uL 0.30-1.10 MCH 29.3 pg 26.2-32.6 NEUT % 65.1 43.7-75.8 LYMPH % 20.3 14.0-42.3 MONO % 8.8 5.1-13.7 EOS % 4.9 0.4-6.8 BASO % 0.6 0.1-2.0 NEUT, ABS 5.04 10*3/uL 2.20-7.60 LYMPH, ABS 1.57 10*3/uL 1.00-3.20 EOS, ABS 0.38 10*3/uL 0.03-0.44 BASO, ABS 0.05 10*3/uL 0.01-0.13 IMMATURE GRAN % 0.3 0.0-0.7 IMMATURE GRAN, ABS 0.02 10*3/uL 0.00-0.06 NRBC % 0.0 0.0-0.0 NRBC, ABS 0.00 10*3/uL 0.00-0.00 Social History: Smoking Status (Most current) and Tobacco Use (All prior to encounter date) This section includes the most current, and the historical, smoking and tobacco- related health factors from the [place] facility where the Encounter took place. Current Smoking Status This section includes the most current smoking, or tobacco-related health factor, from the [place] facility where the Encounter took place. Date/Time Current Smoking Status Comment Debbie ity Jul 09, 2023 03:03 PM [facility]ACCO FORMER USER [facility] Tobacco Use History This section includes a history of the smoking, or tobacco-related health factors, that were collected on or before the date of the Encounter. The data comes from the [place] facility where the Encounter took place. Date/Time Smoking Status/Tobacco Use Comment F acility Jul 09, 2023 03:03 PM VA-TOBACCO QUIT 15 YRS OR MORE [facility] Jul 05, 2022 01:51 PM VA-TOBACCO NEVER USED [facility] May 11, 2021 01:18 PM VA-TOBACCO NEVER USED [facility] Encounter Notes: All associated encounter notes This section contains the clinical notes associated to the Encounter. Date/Time Encounter Note(s) Provider Source Jun 17, 2024 06:11 PM PHARMACY NOTE: LOCAL TITLE: V1 PHARMACY CUSTOMER CARE MEDICATION RENEWAL STANDARD TITLE: PHARMACY NOTE DATE OF NOTE: JUN 17, 2024@18:11 ENTRY DATE: JUN 17, 2024@18:11:45 AUTHOR: SHARI JOHANSEN EXP COSIGNER: URGENCY: STATUS: COMPLETED Date: Jun Division: [facility] referred by Pharmacy Call Center for medication renewal: Non-controlled/maintenanc e medication Medications requested: [id number] GLUCAGON 1MG/JEY INJ EMERGENCY KIT Defer to specialty clinic To be mailed . Please review and renew if appropriate. *This note was generated by [facility]/[place] [facility] Customer Care. If you have any questions or need assistance, do not contact this author. Please refer all questions to your local, on-site pharmacy departments. /jamal/ SHARI JOHANSEN CPhT [employer] [place], [place]/Pharmacy Customer Care Signed: 06/17/2024 18:12 Receipt Acknowledged By: 06/18/2024 06:09 /jamal/ DELMER STALLINGS MD STAFF PHYSICIAN SHARI JOHANSEN [facility]
--- OUTSIDE RECORDS SUMMARY | 2024-10-12 19:45 | XMS_ITS | Encounter Summary ---
Author Name [facility] Organization [facility] Address [address] [place] [address] Care Team Providers Care Booking Manager Name Role Phone SHAW MOSCOSO Primary Care [...] MEDIC ARE D Sep 16, 2016 PDPIND [id number] DAYAMI BERGER IS PATIENT AETNA [facility] ([facility]) MEDICARE ADVANTAGE [facility] ([facility]) Feb 14, 2022 [id number] [phone] DAYAMI BERGER IS PATIENT MEDICAID MEDICAID [facility] Jul 17, 2015 MEDICAI D [id number] DAYAMI BERGER IS PATIENT MEDICARE ([facility]) MEDICARE (M) PART A Sep 16, 2010 PART A [id number] [phone] DAYAMI BERGER IS PATIENT MEDICARE ([facility]) MEDICARE (M) PART B Sep 16, 2010 PART B [id number] [phone] DAYAMI BERGER IS PATIENT Selected Encounter This section includes the information on record at MD for the Encounter. Date/Time Encounter Type Encounter Description Reason Provider Source Apr 16, 2024 03:00 PM OFF/OP CNSLTJ NEW/EST LOW 30 OTOLARYNGOLOGY/ENT ICD-10-CM H90.A21 Snsrnrl hear loss, uni, r ear, with rstrcd hear cntra side JANY ROBERSON E Encounter Template Text not used by MD Assessments - Encounter Diagnoses This section includes the primary and secondary diagnoses documented for the Encounter. Date/Time Primary/Secondary Diagnosis Diagnosis Name Provider Source Apr 16, 2024 05:21 PM PRIMARY Snsrnrl hear loss, uni, r ear, with rstrcd hear cntra side JANY ROBERSON [facility] [place] [facility] Apr 16, 2024 05:21 PM SECONDARY Tinnitus, bilateral JANY ROBERSON MD [facility] [place] [facility] Plan of Treatment: Future Appointments (+ 6 months) and Future Tests (+/- 45 days) The Plan of Treatment section includes future care activities for the patient [facility] This section includes future appointments and future orders which are active, pending or scheduled. Future Appointments This section includes appointments that were scheduled to occur 6 months from the date of the Encounter, up to a maximum of 20 appointments. The data comes from all MD treatment facilities. Appointment Date/Time Appointment Type Appointme nt Facility Name May 12, 2024 03:30 PM AMBULATORY - MEDICINE MD [facility] [place] [facility] May 14, 2024 08:00 AM AMBULATORY - MEDICINE [facility] [place] [facility] May 20, 2024 03:00 PM AMBULATORY - MEDICINE MD [facility] [place] [facility] Jun 25, 2024 03:00 PM AMBULATORY - MEDICINE MD [facility] [place] [facility] Jul 09, 2024 03:00 PM AMBULATORY - MEDICINE [facility] [place] [facility] Jul 10, 2024 03:00 PM [facility] Aug 27, 2024 01:00 PM AMBULATORY - MEDICINE MD [facility] [place] [facility] Lab Results: +/- 30 days of the encounter This section includes the Chemistry and Hematology Lab Results on record with MD for the patient. Radiology Reports and Pathology Reports are provided separately, in subsequent sections. Lab Results This section contains the Chemistry/Hematology Results that were resulted 30 days before or 30 daysafter the date of the Encounter. Date/Time Source Result Type Result - Unit Interpretation Reference Range Comment May 08, 2024 08:12 AM [facility] [place] [facility] MICROALBUMIN CREATININE RATIO PANEL Specimen Type: URINE No comment entered. Ordering Provider: JOVI RAMOS Report Released Date/Time: Nov 12, 2023 03:09 PM Reporting Lab: [facility] [place] [address] [address] Performing Lab: [facility] [address] [address] MICROALBUMIN/C REATININE RATIO 116.9 mg/g H 0-29.9 MICROALBUMIN,Q UANTITATIVE 11.6 mg/dL RR UNAVAIL CREATININE URINE 99.23 mg/dL May 07, 2024 10:37 AM [facility] PO4 Specimen Type: SERUM No comment entered. Ordering Provider: JOVI RAMOS Report Released Date/Time: Nov 12, 2023 03:09 PM Reporting Lab: [facility] [place] [place] [address] [address] Performing Lab: [facility] [address] [address] PO4 2.4 mg/dL L 2.5-5.0 May 07, 2024 10:37 AM [facility] PTH INTACT Specimen Type: SERUM No comment entered. Ordering Provider: JOVI RAMOS Report Released Date/Time: Nov 12, 2023 03:09 PM Reporting Lab: [facility] [place] [place] [address] [address] Performing Lab: [facility] [place] [address] [address] PTH INTACT 99.2 pg/mL H 10-65 May 07, 2024 10:37 AM [facility] VITAMIN D (25-OH) Specimen Type: SERUM No comment entered. Ordering Provider: JOVI RAMOS Report Released Date/Time: Nov 12, 2023 03:09 PM Reporting Lab: [facility] [address] [address] Performing Lab: [address] [address] VITAMIN D (25-OH) 30 ng/mL 20-50 May 07, 2024 10:37 AM [facility] MAGNESIUM Specimen Type: SERUM No comment entered. Ordering Provider: JOVI RAMOS Report Released Date/Time: Nov 12, 2023 03:09 PM Reporting Lab: [facility] [address] [address] Performing Lab: [address] [address] MAGNESIUM 1.8 mg/dL 1.6-2.6 May 07, 2024 10:37 AM [facility] CALCIUM Specimen Type: SERUM No comment entered. Ordering Provider: JOVI RAMOS Report Released Date/Time: Nov 12, 2023 03:09 PM Reporting Lab: [facility] [address] [address] Performing Lab: [address] [address] CALCIUM 9.0 mg/dL 8.5-10.2 May 07, 2024 10:37 AM [facility] ALBUMIN Specimen Type: SERUM No comment entered. Ordering Provider: JOVI RAMOS Report Released Date/Time: Nov 12, 2023 03:09 PM Reporting Lab: [facility] [address] [address] Performing Lab: [facility] [address] ALBUMIN 3.8 g/dL 3.5-5.0 May 07, 2024 10:37 AM [facility] ALKALINE PHOSPHATASE Specimen Type: SERUM No comment entered. Ordering Provider: JOVI RAMOS Report Released Date/Time: Nov 12, 2023 03:09 PM Reporting Lab: [address] [address] Performing Lab: [address] [address] ALKALINE PHOSPHATASE 72 U/L 40-150 May 07, 2024 10:37 AM [facility] FERRITIN Specimen Type: SERUM No comment entered. Ordering Provider: JOVI RAMOS Report Released Date/Time: Nov 12, 2023 03:09 PM Reporting Lab: [address] [address] Performing Lab: [address] [address] FERRITIN 157 ng/mL 20-300 May 07, 2024 10:37 AM [facility] BASIC METABOLIC PANEL (non-fasting) Specimen Type: SERUM No comment entered. Ordering Provider: JOVI RAMOS Report Released Date/Time: Nov 12, 2023 03:09 PM Reporting Lab: [address] [address] Performing Lab: [address] [address] UREA NITROGEN 20 mg/dL 7-25 GLUCOSE 168 mg/dL H 65-100 SODIUM 138 mmol/L 135-145 POTASSIUM 4.1 mmol/L 3.5-5.0 CHLORIDE 109 mmol/L 100-110 CO2 22 meq/L 20-30 CREATININE, Serum 1.38 mg/dL 0.50-1.40 eGFR(CKD-EPI 2020) 54 mL/min L >60 May 07, 2024 10:37 AM [facility] IRON & TIBC PANEL Specimen Type: SERUM No comment entered. Ordering Provider: JOVI RAMOS Report Released Date/Time: Nov 12, 2023 03:09 PM Reporting Lab: [address] [place] [address] Performing Lab: [facility] [address] [address] TIBC 267 ug/dL 204-475 IRON 64 ug/dL 40-160 Transferrin Saturation 24.0 20.0-50.0 May 07, 2024 10:37 AM [facility] CBC Specimen Type: BLOOD No comment entered. Ordering Provider: JOVI RAMOS Report Released Date/Time: Nov 12, 2023 03:09 PM Reporting Lab: [facility] [address] [address] Performing Lab: [address] [address] WBC 6.55 10*3/uL 4.50-11.00 RBC 4.65 10*6/uL 4.23-5.66 HGB 13.9 g/dL 12.8-17 HCT 41.1 39.2-50.4 MCV 88.4 fL 82-99 MCHC 33.8 g/dL 30.8-35.1 PLT 200 10*3/uL 140-360 RDW-CV 15.0 12.0-16.0 MCH 29.9 pg 26.2-32.6 Vital Signs: All taken on the encounter date This section contains inpatient and outpatient Vital Signs collected on the date of the Encounter. Date/Time Temperature Pulse Blood Pressure Respiratory Rate SP02 Pain Height Weight Body Mass Index Source Apr 16, 2024 03:29 PM 97.2 80 97/58 18 95 0 238.6 36 [facility] Social History: Smoking Status (Most current) and Tobacco Use (All prior to encounter date) This section includes the most current, and the historical, smoking and tobacco- related health factors from the MD facility where the Encounter took place. Current Smoking Status This section includes the most current smoking, or tobacco-related health factor, from the MD facility where the Encounter took place. Date/Time Current Smoking Status Comment Facil ity Jul 09, 2023 03:03 PM VA-TOBACCO FORMER USER [facility] Tobacco Use History This section includes a history of the smoking, or tobacco-related health factors, that were collected on or before the date of the Encounter. The data comes from the MD facility where the Encounter took place. Date/Time Smoking Status/Tobacco Use Comment F acility Jul 09, 2023 03:03 PM VA-TOBACCO QUIT 15 YRS OR MORE MD [facility] [place] [facility] Jul 05, 2022 01:51 PM VA-TOBACCO NEVER USED [facility] May 11, 2021 01:18 PM [facility]BACCO [facility] Encounter Notes: All associated encounter notes This section contains the clinical notes associated to the Encounter. Date/Time Encounter Note(s) Provider Source Apr 16, 2024 05:12 PM OTOLARYNGOLOGY CONSULT: LOCAL TITLE: CONSULT REPORT/OTOLARYNGOLOGY STANDARD TITLE: OTOLARYNGOLOGY CONSULT DATE OF NOTE: APR 16, 2024@17:12 ENTRY DATE: APR 16, 2024@17:12:32 AUTHOR: JANY ROBERSON COSIGNER: URGENCY: STATUS: COMPLETED CONSULT REQUESTED FROM SHAW MOSCOSO APR 16, 2024 JESSICA BERGER is a 73 y/o smoker WHITE MALE, previously in [employer] FROM Feb TO Nov from [employer], w/chief complaint of RIGHT ASYMMETRIC SENSORINEURAL HEARING LOSS 73-year-old male referred from audiology secondary to a right asymmetric sensorineural hearing loss. Patient states that for at least a year possibly longer he has noted a gradual loss of hearing in his right greater than left ear. He also has right-sided tinnitus. He has no vertigo. He has never worn hearing aids. He has no history of ear infections, no history of ear surgery. 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 Patient has had multiple CVAs. The last stroke was 3 years ago. He has had 3 prior strokes about 4 years prior to that. His strokes have impacted his speaking as well as his walking. He is unable to use his right arm. Patient also has obstructive sleep apnea. PMHx: Active problems - Computerized Problem List is the source for the followin. Proliferative retinopathy due to type 2 diabetes mellitus 2. Peripheral neuropathy due to type 2 diabetes mellitus 3. Diabetes mellitus type 2 4. Chronic kidney disease stage 3 due to type 2 diabetes mellitus 5. Obesity 6. Erectile dysfunction 7. Cerebellar stroke syndrome 8. Osteoarthritis 9. Computed tomography result abnormal 10. Low back pain 11. Allergy to peanuts 12. UTI 13. Claudication (SNOMED CT 691462545) 14. Elevated Prostate Specific antigen [psa] 15. Low Back Pain * 16. 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 Impotence of organic origin 18. Colorectal Cancer Screening Results Documented and Reviewed (PV) 19. Simple upper Gastrointestinal Endoscopy 20. Postsurgical Percutaneous Transluminal Coronary Angioplasty Status 21. Postsurgical Status of Cataract Extraction 22. MRSA SKIN INFECTION 23. Cocaine abuse, continuous use 24. GERD * 25. Corneal Abrasion 26. Hypertension (SNOMED CT 83117726) 27. Onychomycosis * 28. Cataract, PSC/Post Subcapsular 29. Cataract, Cortical (Senile) 30. Cyst, ganglion 31. Cervical Radiculopathy 32. Shoulder Pain 33. Hyperlipidemia (SNOMED CT 00042655) 34. Old Myocardial Infarction 35. Depressive Disorder NOS Service Connected Disabilities with % Eligibility: SC LESS THAN 50% VERIFIED Total S/C %: 10 TINNITUS 10% S/C IMPAIRED HEARING 0% S/C MEDS: Active Outpatient Medications (including Supplies): FLUTICASONE PROP 50MCG 120D NASAL INHL INSTILL 2 SPRAYS ACTIVE INTO EACH NOSTRIL ONCE DAILY GLUCOSE SENSOR DEXCOM G7 USE 1 SENSOR DIRECTED EVERY 10 ACTIVE (S) DAYS GLUCOSE SENSOR FREESTYLE ANTOINE 2 USE 1 SENSOR DIRECTED ACTIVE EVERY 14 DAYS INSULIN,ASPART(EQV-NOVLG)10 0UN/ML FLXPEN INJECT 30 UNITS ACTIVE SUBCUTANEOUSLY EVERY MORNING AND INJECT 27 UNITS AT NOON AND INJECT 26 UNITS EVERY EVENING FOR DIABETES INSULIN,GLARGINE-YFGN 100UNIT/ML PEN 3ML INJECT 40 UNITS HOLD SUBCUTANEOUSLY TWICE DAILY FOR DIABETES Non-VA ALCOHOL PREP PAD 1 PAD TOPICALLY FOUR TIMES A DAY ACTIVE Non-VA APIXABAN 5MG TAB 5MG BY MOUTH ONCE DAILY ACTIVE Non-VA ASPIRIN 81MG EC TAB 81MG BY MOUTH DAILY ACTIVE Non-VA CHOLECALCIF 25MCG (D3-1,000UNIT) TAB 25MCG BY MOUTH ACTIVE ONCE DAILY Non-VA EMPAGLIFLOZIN 25MG TAB 25MG BY MOUTH ONCE DAILY ACTIVE Non-VA FINASTERIDE 5MG TAB 5MG BY MOUTH ONCE DAILY ACTIVE Non-VA FLUVASTATIN NA 40MG CAP 40MG BY MOUTH ONCE DAILY ACTIVE Non-VA LORATADINE 10MG TAB 10MG BY MOUTH ONCE DAILY ACTIVE Non-VA MAGNESIUM OXIDE TAB 400MG BY MOUTH TWICE DAILY ACTIVE Non-VA METOPROLOL TARTRATE 25MG TAB 12.5MG BY MOUTH TWICE ACTIVE DAILY Non-VA MIDODRINE HCL 10MG TAB 10MG BY MOUTH TWICE DAILY ACTIVE Non-VA MIRABEGRON 25MG SA TAB 25MG BY MOUTH ONCE DAILY ACTIVE Non-VA PANTOPRAZOLE NA 40MG EC TAB 40MG BY MOUTH EVERY ACTIVE MORNING 30 MINUTES BEFORE BREAKFAST Non-VA VITAMIN B COMPLEX CAP,ORAL BY MOUTH ON SATURDAY ACTIVE ALL: GABAPENTIN, PEANUTS Fam Hx: Non - contributory ROS: Denies any other relavent ROS Vitals Enter at: Apr 16, 2024@15:29:41 BP: 97/58 P: 80 R: 18 T: 97.2 238.6 lb [108.23 kg] (04/16/2024 15:29) BMI: 36.4 CONSTITUTION: GENERAL APPEARANCE:Well developed, well nourished and groomed. No apparent acute or chronic distress. PATIENT WITH MILD DYSARTHRIA, USING A WALKER HEAD, FACE, SALIVARY GLANDS AND TMJ: Palpation of Parotid and Submandibular glands: Normal. Facial Mobility: Normal. EAR, NOSE, MOUTH AND THROAT: Pinnas - normal. Otoscopic exam: RIGHT EAR: External auditory canal normal, tympanic membrane mobile LEFT EAR: External auditory canal normal, tympanic membrane mobile Nasal Interior: Turbinates and middle meatus - Inferior turbinates normal. Normal mucosa with no swelling, polyps, active bleeding or evidence of bleeding. Lips, Teeth and Gums: Lips normal. Oral Cavity and Oropharynx: Oral mucosa with normal color and moisture. Anterior 2/3rds of tongue normal. Breath quality normal. Hard palate normal. Normal floor of mouth, Posterior pharynx normal. MALLAMPATI 4, ABSENT TONSILS NECK AND THYROID: Neck: no adenopathy; no neck masses. RESPIRATORY: Respiratory effort normal. LYMPH NODES: Neck nodes: normal. NEUROLOGIC: Higher integrative functions: Normal orientation, memory, attention span and concentration, language, and fund of knowledge. Cranial nerves: Cranial nerves II-XII grossly intact and symmetrical. RINNE +, LEVI [facility]: Mood and affect: normal and appropriate to the situation. AUDIOGRAM 03/17/2024 SECTION 1: HEARING LOSS (HL) -- 1. Objective Findings a. Puretone thresholds in decibels (air conduction): RIGHT EAR + =========+ A B C D E F G ========+========+======== +========+========+======== +========+========+ 500 1000 2000 3000 4000 6000 8000 Avg Hz Hz* Hz Hz Hz Hz Hz Hz (B-E) ========+========+======== +========+========+======== +========+======== 10 20 15 15 55 50 70 [id number] + + LEFT EAR + =========+ A B C D E F G ========+========+======== +========+========+======== +========+========+ 500 1000 2000 3000 4000 6000 8000 Avg Hz Hz* Hz Hz Hz Hz Hz Hz (B-E) ========+========+======== +========+========+======== +========+======== 10 10 0 10 35 30 35 [id number] + + * The puretone threshold at 500 Hz is not used in determining the evaluation but is used in determining whether or not a ratable hearing loss exists. The average of B, C, D, and E. CNT - Could Not Test b. Were there one or more frequency(ies) that could not be tested: No c. Validity of puretone test results: Test results are valid for rating purposes. d. Speech Discrimination Score ([facility] word list): + + RIGHT EAR 94% +========= LEFT EAR 94% + + f. Audiologic Findings Summary of Immittance (Tympanometry) Findings: + + RIGHT EAR LEFT EAR +==== +=== Acoustic immittance [ ] Normal [X] Abnormal [ ] Normal [X] Abnormal +==== +=== Ipsilateral Acoustic Reflexes [ ] Normal [X] Abnormal [ ] Normal [X] Abnormal +==== +=== Contralateral Acoustic Reflexes [ ] Normal [X] Abnormal [ ] Normal [X] Abnormal Assessment/Plan APR 16, 2024: 73-year-old male referred from audiology secondary to a right asymmetric sensorineural hearing loss. Patient states that for at least a year possibly longer he has noted a gradual loss of hearing in his right greater than left ear. He also has right-sided tinnitus. He has no vertigo. He has never worn hearing aids. He has no history of ear infections, no history of ear surgery. 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 Patient has had multiple CVAs. The last stroke was 3 years ago. He has had 3 prior strokes about 4 years prior to that. His strokes have impacted his speaking as well as his walking. He is unable to use his right arm. Patient also has obstructive sleep apnea. I reviewed the patient's audiogram with him. He has a right asymmetric sensorineural hearing loss at 4 6 and 8 kHz with asymmetric speech discrimination. His ear exam is normal. I recommended observation at this time with a repeat audiogram in 1 year. Patient is borderline for amplification. He expresses reluctance to proceed. All questions were answered. Complete encounter includes: Review of past medical records Time spent with patient including obtaining history, physical exam, shared decision making, procedures Counseling and answering questions Post visit documentation to include but not limited to medication and lab ordering. Total time = Minimum 45 min MEDICATION RECONCILIATION Outpatient: Has the patient been taking medications as documented in the EMLR? YES: The patient has been taking medications as documented in the EMLR. Essential Medication List for Review used to complete this medication reconciliation. INCLUDED IN THIS LIST: Alphabetical list of active outpatient prescriptions dispensed from this VA (local) and dispensed from another MD or DoD facility (remote) as well as inpatient orders (local, pending and active), local clinic medications, locally documented non-VA medications, and local prescriptions that have or been discontinued in the past 90 days. - All changes in medications, including all non-VA/Herbal/OTC medications were entered into CPRS. - If there were any medications the patient should no longer take, they were discontinued. - The patient/caregiver was instructed to update this list, discard old lists, and take this list to the next appointment, whether with a VA or non-VA provider. JLV Link Data on this list may not be complete. Please check JLV. Allergies/ADRs (Tool #5) FACILITY ALLERGY/ADR -------- [facility] [place] [facility] GAB[facility]IN [facility] [place] [facility] NO KNOWN ALLERGIES [facility] (Tool #1) INCLUDED IN THIS LIST: Alphabetical list of active outpatient prescriptions dispensed from this MD (local) and dispensed from another MD or [facility] facility (remote) as well as inpatient orders (local pending and active), local clinic medications, locally documented non-VA medications, and local prescriptions that have or been discontinued in the past 90 days. Non-VA Meds Last Documented On: Jan 02, 2023 NOTE The display of VA prescriptions dispensed from another VA or DoD facility (remote) is limited to active outpatient prescription entries matched to National Drug File at the originating site and may not include some items such as investigational drugs, compounds, etc. NOT INCLUDED IN THIS LIST: Medications self-entered by the patient into personal health records (i.e. [facility]) are NOT included in this list. Non-VA medications documented outside this MD, remote inpatient orders (regardless of status) and remote clinic medications are NOT included in this list. The patient and provider must always discuss medications the patient is taking, regardless of where the medication was dispensed or obtained. Non-VA APIXABAN 5MG TAB TAKE ONE TABLET BY MOUTH ONCE DAILY Non-VA ASPIRIN 81MG EC TAB TAKE ONE TABLET BY MOUTH DAILY Non-VA CHOLECALCIF 25MCG (D3-1,000UNIT) TAB TAKE ONE TABLET BY MOUTH ONCE DAILY Non-VA EMPAGLIFLOZIN 25MG TAB TAKE ONE TABLET BY MOUTH ONCE DAILY Non-VA FINASTERIDE 5MG TAB TAKE ONE TABLET BY MOUTH ONCE DAILY OUTPT FLUTICASONE PROP 50MCG 120D NASAL INHL (Status = Active) INSTILL 2 SPRAYS INTO EACH NOSTRIL ONCE DAILY Rx# [id number] Last Released: 07/09/23 Qty/Days Supply: 10/15 Rx Expiration Date: 07/09/24 Refills Remainin Indication: FOR NASAL IRRITATION/INFLAMMATION Non-VA FLUVASTATIN NA 40MG CAP TAKE 1 CAPSULE BY MOUTH ONCE DAILY OUTPT GLUCAGON 1MG/JEY INJ EMERGENCY KIT (Status = ) INJECT 1 INJECTION INTRAMUSCULARLY ONE TIME NEEDED FOR LOW BLOOD SUGAR Rx# [id number] Last Released: 02/13/24 Qty/Days Supply: 10/15 Rx Expiration Date: 03/07/24 Refills Remainin Indication: FOR LOW BLOOD SUGAR OUTPT INSULIN,ASPART(EQV-NOVLG)10 0UN/ML FLXPEN (Status = Discontinued) INJECT 30 UNITS SUBCUTANEOUSLY THREE TIMES A DAY FOR DIABETES Rx# [id number] Last Released: Supply: Rx Expiration Date: 11/07/24 Refills Remainin Indication: FOR DIABETES OUTPT INSULIN,ASPART(EQV-NOVLG)10 0UN/ML FLXPEN (Status = Active) INJECT 30 UNITS SUBCUTANEOUSLY EVERY MORNING AND INJECT 27 UNITS AT NOON AND INJECT 26 UNITS EVERY EVENING FOR DIABETES Rx# [id number] Last Released: 02/11/24 Qty/Days Supply: Rx Expiration Date: 02/06/25 Refills Remainin Indication: FOR DIABETES OUTPT INSULIN,GLARGINE-YFGN 100UNIT/ML PEN 3ML (Status = Discontinued) INJECT 44 UNITS SUBCUTANEOUSLY TWICE DAILY FOR DIABETES Rx# [id number] Last Released: 12/25/23 Qty/Days Supply: Rx Expiration Date: 12/23/24 Refills Remainin Indication: FOR DIABETES OUTPT INSULIN,GLARGINE-YFGN 100UNIT/ML PEN 3ML (Status = On Hold) INJECT 40 UNITS SUBCUTANEOUSLY TWICE DAILY FOR DIABETES Rx# [id number] Last Released: QtDays Supply: Rx Expiration Date: 02/06/25 Refills Remainin Indication: FOR DIABETES Non-VA LORATADINE 10MG TAB TAKE ONE TABLET BY MOUTH ONCE DAILY Non-VA MAGNESIUM OXIDE TAB TAKE 400MG BY MOUTH TWICE DAILY Non-VA METOPROLOL TARTRATE 25MG TAB TAKE ONE-HALF TABLET BY MOUTH TWICE DAILY Non-VA MIDODRINE HCL 10MG TAB TAKE ONE TABLET BY MOUTH TWICE DAILY Non-VA MIRABEGRON 25MG SA TAB TAKE ONE TABLET BY MOUTH ONCE DAILY Non-VA PANTOPRAZOLE NA 40MG EC TAB TAKE ONE TABLET BY MOUTH EVERY MORNING 30 MINUTES BEFORE BREAKFAST Non-VA PANTOPRAZOLE NA 40MG EC TAB TAKE ONE TABLET BY MOUTH EVERY MORNING 30 MINUTES BEFORE BREAKFAST Non-VA VITAMIN B COMPLEX CAP,ORAL TAKE BY MOUTH ON SATURDAY SUPPLIES Non-VA ALCOHOL PREP PAD USE 1 PAD TOPICALLY FOUR TIMES A DAY OUTPT GLUCOSE SENSOR DEXCOM G7 (Status = Active/Suspended) USE 1 SENSOR DIRECTED EVERY 10 DAYS Rx# [id number] Last Released: 02/14/24 Qty/Days Supply: Rx Expiration Date: 02/07/25 Refills Remainin OUTPT GLUCOSE SENSOR FREESTYLE ANTOINE 2 (Status = Active) USE 1 SENSOR DIRECTED EVERY 14 DAYS Rx# [id number] Last Released: 02/27/24 Qty/Days Supply: 11/13 Rx Expiration Date: 12/18/24 Refills Remainin OUTPT SKIN BARRIER WIPE TORBOT SKIN TAC (Status = ) USE 1 WIPE TOPICALLY EVERY 14 DAYS Rx# [id number] Last Released: 03/27/23 Qty/Days Supply: 50/90 Rx Expiration Date: 03/23/24 Refills Remainin /es/ Jany Roberson MD Otolaryngology Signed: 04/16/2024 17:21 JANY ROBERSON [facility]
--- OUTSIDE RECORDS SUMMARY | 2024-10-12 19:45 | XMS_ITS | Encounter Summary ---
Author Name [facility] [facility] [place] [facility] [place] [facility] [place] Address [address] [place] [address] Care Team Providers Care Dressage Instructor Name Role Phone SHAW MOSCOSO Primary Care [...] MEDIC ARE D Sep 16, 2016 PDPIND [id number] DAYAMI BERGER IS PATIENT AETNA [facility] (WN) MEDICARE ADVANTAGE [facility] ([facility]) Feb 14, 2022 [id number] [phone] DAYAMI BERGER IS PATIENT MEDICAID MEDICAID PERSON [facility] Jul 17, 2015 MEDICAI D [id number] DAYAMI BERGER IS PATIENT MEDICARE (WNR) MEDICARE (M) PART A Sep 16, 2010 PART A [id number] [phone] DAYAMI BERGER IS PATIENT MEDICARE (WNR) MEDICARE (M) PART B Sep 16, 2010 PART B [id number] [phone] DAYAMI BERGER IS PATIENT Selected Encounter This section includes the information on record at [place] for the Encounter. Date/Time Encounter Type Encounter Description Reason Provider Source Apr 02, 2024 03:00 PM MTMS BY RACHAEL EASTON 15 MIN CLINICAL PHARMACY ICD-10-CM E11.9 Type 2 diabetes mellitus without complications [facility] Encounter Template Text not used by [place] Assessments - Encounter Diagnoses This section includes the primary and secondary diagnoses documented for the Encounter. Date/Time Primary/Secondary Diagnosis Diagnosis Name Provider Source Apr 03, 2024 07:47 AM PRIMARY Type 2 diabetes mellitus without complications PAMELA MATTHEW [place] Plan of Treatment: Future Appointments (+ 6 months) and Future Tests (+/- 45 days) The Plan of Treatment section includes future care activities for the patient [facility] [place] [facility]. This section includes future appointments and future orders which are active, pending or scheduled. Future Appointments This section includes appointments that were scheduled to occur 6 months from the date of the Encounter, up to a maximum of 20 appointments. The data comes from all [place] treatment facilities. Appointment Date/Time Appointment Type Appointme nt Facility Name Apr 16, 2024 03:00 PM [place] [facility] [place] [facility] May 12, 2024 03:30 PM [place] [facility] [place] [facility] May 14, 2024 08:00 AM [place] [facility] [place] [facility] May 20, 2024 03:00 PM [place] [facility] [place] [facility] Jun 25, 2024 03:00 PM [place] [facility] [place] [facility] Jul 09, 2024 03:00 PM [place] [facility] [place] [facility] Jul 10, 2024 03:00 PM [facility] Aug 27, 2024 01:00 PM [facility] Social History: Smoking Status (Most current) and Tobacco Use (All prior to encounter date) This section includes the most current, and the historical, smoking and tobacco- related health factors from the [place] facility where the Encounter took place. Current Smoking Status This section includes the most current smoking, or tobacco-related health factor, from the [place] facility where the Encounter took place. Date/Time Current Smoking Status Comment Debbie thao February 03, 2019 10:28 AM VA-TOBACCO NEVER USED [place] Tobacco Use History This section includes a history of the smoking, or tobacco-related health factors, that were collected on or before the date of the Encounter. The data comes from the [place] facility where the Encounter took place. Date/Time Smoking Status/Tobacco Use Comment F acility Jan 13, 2018 09:49 AM LIFETIME NON-TOBACCO USER [place] Jan 04, 2017 10:17 AM LIFETIME NON-TOBACCO USER [place] Dec 23, 2015 08:49 AM LIFETIME NON-TOBACCO USER [place] Nov 27, 2005 02:55 PM LIFETIME NON-TOBACCO USER patient reportssmoking only crack coccaine [place] January 22, 2003 10:42 AM LIFETIME NON-SMOKER [place] Aug 18, 2001 01:54 PM LIFETIME NON-TOBACCO USER pt states he has never smoked [place] May 14, 2001 02:23 PM LIFETIME NON-SMOKER [place] Encounter Notes: All associated encounter notes This section contains the clinical notes associated to the Encounter. Date/Time Encounter Note(s) Provider Source Apr 02, 2024 03:10 PM PHARMACY OUTPATIEN T NOTE: LOCAL TITLE: PHARMACY CLINIC NOTE STANDARD TITLE: PHARMACY OUTPATIENT NOTE DATE OF NOTE: APR 02, 2024@15:10 ENTRY DATE: APR 02, 2024@15:10:48 AUTHOR: ROB MATTHEW COSIGNER: URGENCY: STATUS: COMPLETED Patient Name: JESSICA BERGER was seen via F for new visit for diabetes management treatment. : Aug Age: 73 Sex: MALE Race: WHITE Subjective: Pt came in w/ his girlfriend Irwin. Pt is using a walker. He was referred by Endocrine to be trained on Dexcom G7. Pt already picked up sensors but brought one sensor to the visit to be trained. Pt wishes to use his android phone however is not quite literate on it. Girlfriend is assisting. Pt has had DM type 2 x 40 years. He has extensive history of strokes.Strong FHx of dm. Gene girlfriend is very helpful and does a lot of things for pt. Pt was recently hospitalized for cellulitis of the leg. Per endocrine note: CC: Diabetes Mellitus type 2 with chronic kidney disease, NPDR, and peripheral neuropathy , autonomic neuropathy, Hyperlipidemia Obesity HPI: Wants to change from antoine to dexcom sensors and loves having a sensor. Congratulated on sustained improvement in hgba1c! per endocrine notes: Weight trend: 251.7 lbs, fluctuates 38.35 BMI Food insecurity no does occ use [employer] Physical activity: walks with rollator Carbohydrate counting: well informed Episodes of hypoglycemia: occ so reduced insulin Hypoglycemia unawareness: Neuropathy pain: no burning numbness present Last eye evaluation: Feb 2023 mild non proliferative diabetic retinopathy OU Had bleeding L eye getting avastin both eyes Last nephropathy screen MICROALBUMIN Oct 24, 2023@09:42 URINE mALB/Cr: 131.8 H mg/G 0 - 29. FindingsCREATININE-EGFR 01/31/24 07:48 1.75 H 10/24/23 09:42 1.50 H 06/04/23 07:35 1.70 H Statin therapy:Oct 24 2023 CHOL 111 mg/dL <7 - 199 TRIG 112 mg/dL 0 - 150 HDL 29 L mg/dL 40 - 60 LDL 60 mg/dL 0 - 55 CAD: present On asa: yes emergency kit/glucose tabs: has glucagon kit SO knows how to use [employer] Goals: A1C: 7%; FB-130 mg/dL; 2HRS PP <180mg/dL. Allergies: GABAPENTIN, PEANUTS PERTINENT INFORMATION: Active problems - Computerized Problem List is [...] peanuts 12. UTI 13. Claudication (SNOMED CT 940217440) 14. Elevated Prostate Specific antigen [psa] 15. [...] 25. Corneal Abrasion 26. Hypertension (SNOMED CT 04301329) 27. Onychomycosis * 28. Cataract, PSC/Post Subcapsular 29. Cataract, Cortical (Senile) 30. Cyst, ganglion 31. Cervical Radiculopathy 32. Shoulder Pain 33. Hyperlipidemia (SNOMED CT 49201943) 34. Old Myocardial Infarction 35. 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 after titration to 1 mg on semaglutide (ozempic) Previous DM Medications: Adherence: Oral meds: denies missed doses Insulin: denies missed doses Labs: HEMOGLOBIN A1C TREND Collection DT Spec HGBA1c 01/31/2024 07:48 BLOOD 7.2 H 10/24/2023 09:43 BLOOD 7.1 H 04/02/2023 09:09 BLOOD 9.3 H 12/18/2022 10:14 BLOOD 9.7 H 09/25/2022 07:40 BLOOD 8.6 H CBC TREND Collection DT Spec WBC RBC HGB HCT MCV MCH PLT 10/24/2023 09:42 BLOOD 8.24 5.23 14.8 45.7 87.4 28.3 216 06/04/2023 07:35 BLOOD 7.93 5.18 15.1 46.3 89.4 29.2 233 04/02/2023 09:09 BLOOD 7.64 5.10 14.9 45.0 88.2 29.2 229 09/25/2022 07:40 BLOOD 9.31 5.62 15.9 48.5 86.3 28.3 249 06/08/2022 07:39 BLOOD 7.26 5.31 13.9 43.1 81.2 L 26.2 280 CHEM 7 TREND LAB CUMULATIVE SELECTED Collection DT Spec GLUCOSE BUN CREATIN Sodium K+/Pot CL CO2 01/31/2024 07:48 SERUM 233 H 23 1.75 H 138 4.6 106 25 10/24/2023 09:42 SERUM 96 30 H 1.50 H 140 4.4 107 26 06/04/2023 07:35 SERUM 154 H 24 1.70 H 137 4.4 104 23 04/02/2023 09:09 SERUM 253 H 31 H 1.75 H 138 3.9 107 20 12/18/2022 10:14 SERUM 200 H 25 1.99 H 138 4.5 104 23 Collection DT Spec eGFR 06/02/2009 13:56 SERUM >60 09/23/2008 11:52 SERUM >60 06/25/2008 11:30 SERUM >60 12/22/2007 10:35 SERUM >60 09/23/2007 09:08 SERUM >60 LAB CUMULATIVE SELECTED 2 No selection items chosen for this component. CHEM 7 Results Collection DT Spec Sodium K+/Pot CL CO2 GLUCOSE BUN eGFR 01/31/2024 07:48 SERUM 138 4.6 106 25 233 H 23 10/24/2023 09:42 SERUM 140 4.4 107 26 96 30 H 06/04/2023 07:35 SERUM 137 4.4 104 23 154 H 24 04/02/2023 09:09 SERUM 138 3.9 107 20 253 H 31 H 12/18/2022 10:14 SERUM 138 4.5 104 23 200 H 25 11/29/2022 07:37 SERUM 135 4.6 104 24 281 H 21 09/25/2022 07:40 SERUM 136 4.8 103 24 297 H 22 06/08/2022 07:39 SERUM 136 5.2 H 104 23 230 H 24 01/18/2022 07:58 SERUM 138 4.4 106 25 203 H 22 01/18/2022 07:58 SERUM 138 4.5 105 27 207 H 22 11/16/2021 14:27 SERUM 135 4.4 100 26 349 H 27 H 10/18/2021 10:04 SERUM 136 4.7 103 24 302 H 21 06/23/2021 10:18 SERUM 140 3.0 L 102 28 185 H 15 02/16/2021 13:31 SERUM 139 4.3 106 21 103 H 20 08/08/2020 14:19 SERUM 137 4.7 104 24 120 H 21 08/08/2020 14:19 SERUM 138 4.7 103 25 120 H 20 08/08/2020 14:19 SERUM 138 4.6 104 24 121 H 20 12/10/2019 10:08 SERUM 136 5.1 H 102 24 173 H 24 09/14/2019 09:26 SERUM 139 5.0 105 26 185 H 22 08/06/2019 10:11 SERUM 138 4.9 105 26 112 H 29 H 07/22/2019 09:20 SERUM 134 L 4.6 102 22 211 H 34 H 06/02/2019 11:36 SERUM 138 4.8 103 24 162 H 25 01/30/2019 08:10 SERUM 139 4.8 105 28 162 H 33 H 10/08/2018 11:29 SERUM 139 4.5 105 25 180 H 25 07/14/2018 10:48 SERUM 136 4.5 104 24 222 H 27 H 01/06/2018 10:58 SERUM 137 4.6 103 25 261 H 26 H 09/02/2017 10:06 SERUM 135 5.0 101 26 317 H 23 03/28/2017 09:25 SERUM 137 4.6 104 27 146 H 25 01/02/2017 10:26 SERUM 139 4.9 105 24 104 H 25 10/23/2016 08:33 SERUM 137 4.6 103 25 219 H 23 08/29/2016 08:23 SERUM 136 4.2 102 25 336 H 21 04/17/2016 09:13 SERUM 138 4.8 103 27 184 H 19 12/23/2015 09:08 SERUM 139 4.7 108 25 153 H 18 12/02/2015 09:41 SERUM 139 5.4 H 108 23 110 H 35 H 11/29/2015 08:25 SERUM 137 6.1 H* 104 25 158 H 26 H 05/24/2015 12:02 SERUM 137 4.7 104 26 156 H 19 01/04/2015 13:55 SERUM 140 4.6 112 H 21 151 H 25 09/27/2014 09:04 SERUM 139 4.5 108 24 181 H 17 04/28/2014 11:48 SERUM 138 4.8 108 24 137 H 20 10/19/2013 10:52 SERUM 135 4.7 106 22 115 H 19 06/05/2013 09:03 SERUM 132 L 4.8 102 24 215 H 30 H 11/11/2012 08:07 SERUM 133 L 4.9 101 25 279 H 24 01/21/2012 10:35 SERUM 193 H 09/13/2011 09:15 SERUM 133 L 5.1 H 99 L 25 357 H 26 H 03/02/2011 10:19 SERUM 137 4.5 105 23 228 H 18 05/11/2010 08:18 SERUM 138 4.3 104 26 126 H 16 06/02/2009 13:56 SERUM 135 4.5 101 24 255 H 16 >60 09/23/2008 11:52 SERUM 137 4.0 102 27 202 H 18 >60 06/25/2008 11:30 SERUM 137 4.2 106 22 189 H 27 H >60 12/22/2007 10:35 SERUM 135 4.6 105 23 165 H 13 >60 09/23/2007 09:08 SERUM 135 4.9 104 25 459 H* 18 >60 05/06/2007 08:14 SERUM 138 4.6 107 23 150 H 22 >60 11/18/2006 11:01 SERUM 136 4.6 105 22 247 H 16 >60 09/23/2006 12:16 SERUM 135 4.3 103 23 261 H 16 >60 12/11/2005 08:28 SERUM 136 4.4 102 27 298 H 16 >60 06/29/2003 10:53 SERUM 370 H 06/29/2003 08:08 SERUM 137 4.9 104 25 280 H 12 04/23/2003 11:27 SERUM 341 H 04/23/2003 08:12 SERUM 257 H 04/20/2003 11:30 SERUM 420 H* 04/20/2003 08:05 SERUM 334 H 01/14/2003 12:07 SERUM 223 H 01/14/2003 09:37 SERUM 135 4.4 102 25 153 H 16 05/06/2002 11:25 SERUM 238 H 05/06/2002 08:33 SERUM 152 H 14 12/29/2001 12:20 SERUM 248 H 12/29/2001 10:00 SERUM 193 H 11/04/2001 11:50 SERUM 305 H 11/04/2001 09:04 SERUM 136 4.8 101 26 205 H 14 05/07/2001 11:14 SERUM 192 H 05/07/2001 08:12 SERUM 137 4.4 102 26 130 H 20 11/01/2000 11:06 SERUM 238 H 11/01/2000 08:33 SERUM 136 4.5 104 24 187 H 19 07/09/2000 11:53 SERUM 264 H 07/09/2000 09:12 SERUM 193 H 05/03/2000 11:10 SERUM 328 H 05/03/2000 08:31 SERUM 290 H 04/11/2000 11:17 SERUM 217 H 04/11/2000 08:27 SERUM 139 4.5 101 25 182 H 14 06/08/1998 08:46 SERUM 179 H 15 03/25/1998 12:58 SERUM 18 12/13/1997 12:03 SERUM 240 H 12/13/1997 08:15 SERUM 222 H 15 07/29/1997 11:59 SERUM 172 H 07/29/1997 09:13 SERUM 167 H 05/21/1997 14:52 SERUM 332 H 05/21/1997 11:37 SERUM 136 4.5 102 24 282 H 14 LIPID PANEL TREND Collection DT Spec CHOL HDL CHO/HDL LDL-d LDL-c TRIG 10/24/2023 09:42 SERUM 111 29 L 3.8 60 112 12/18/2022 10:14 SERUM 145 41 3.5 85 97 06/08/2022 07:39 SERUM 146 31 L 4.7 67 238 H 01/18/2022 07:58 SERUM 192 38 L 5.1 118 180 H 10/18/2021 10:04 SERUM 176 32 L 5.5 108 179 H THYROID PANEL Collection DT Specimen Test Name Result Units Ref Range 10/18/2021 10:04 SERUM !! TSH 2.37 uIU/mL 0.35 - 5.00 11/11/2012 08:07 SERUM Free T4 SR-REF 0.85 ng/dL 0.6 - 1.6 !! Indicates COMMENTS AVAILABLE...Refer to Interim Lab Report. VITAMIN D 25-OH Collection DT Specimen Test Name Result Units Ref Range 10/24/2023 09:42 SERUM VITAMIN D (25-OH) 39 ng/mL 20 - 50 SrCr (last 6 weeks): CREATININE-EGFR - NONE FOUND CRCL IBW: CrCl(est): 45.0 mL/min (Creat:1.75 01/31/24) CRCL ACT: 62.65 mL/min CRCL ADJ: 45.0 mL/min (01/31/24) Vitals: Weight (BMI): 251.7 lb [114.17 kg] (02/06/2024 15:03) Height: 68 in [172.7 cm] (11/07/2023 15:07) BMI: 38.4 Active and Recently Outpatient Medications (including Supplies): Active Outpatient Medications Status Active Outpatient Medications (including Supplies): FLUTICASONE PROP 50MCG 120D NASAL INHL INSTILL 2 SPRAYS ACTIVE INTO EACH NOSTRIL ONCE DAILY GLUCOSE SENSOR DEXCOM G7 USE 1 SENSOR DIRECTED EVERY 10 ACTIVE (S) DAYS GLUCOSE SENSOR FREESTYLE ANTOINE 2 USE 1 SENSOR DIRECTED ACTIVE EVERY 14 DAYS INSULIN,ASPART(EQV-NOVLG)100UN/ML FLXPEN INJECT 30 UNITS ACTIVE SUBCUTANEOUSLY EVERY [...] COMPLEX CAP,ORAL BY MOUTH ON SATURDAY ACTIVE MEDICATION RECONCILIATION:done BLOOD GLUCOSE MONITORING 04/02/24 - no BG data pt did not bring the reader for antoine 2 NUTRITION: Diet Patterns: patient eats on avg. 3x/day: B:Egg on taost L:sandwich D: meat , veggie, starch Snacks: popcorn, trail mix or sometimes a cookie Drinks: used to drink milk, now coke zero and water Exercise: right now unable to 3 weeks ago awlked 1.5-2 miles/day HYPOGLYCEMIC Events: 0 in the last 2 weeks Hypoglycemia recognition & treatment reviewed: Yes EtOH/Illicit drugs: Alcohol: denies Tobacco: denies Other: - Denies personal or fhx thyroid cancer or MENS2 - Denies hx pancreatitis Personal Goals: - Get BG under control - Lose weight goal weght: 220 lbs ASSESSMENT/PLAN: Pt was trained on dexcom sensor. Pt was unsure how to use the phone - trianing took up the entire visit. INSTRUCTIONS/CONTENT REVIEWED DURING THIS VISIT: RISKS AND BENEFITS SYTEM OVERVIEW/COMPONENTS VIDYA SET UP INSTALL VIDYA HOW TO USE VIEW HOME SCREEN SMART DEVICE SETTINGS TRAINING AND DEVELOPMENT ASSISTANT SET UP TRAINING AND DEVELOPMENT ASSISTANT SET UP HOW/WHEN TO TO USE VIEW HOME SCREEN TRAINING AND DEVELOPMENT ASSISTANT DEVICE SETTINGS VIDYA AND TRAINING AND DEVELOPMENT ASSISTANT TREND ARROWS VIDYA AND TRAINING AND DEVELOPMENT ASSISTANT TREND GRAPHS END SENSOR SESSION REMOVE SENSOR ENDING SENSOR SESSION EARLY ALARM, ALERTS, AND ADAVANCED ALERTS URGENT LOW GLUCOSE ALARM CHANGE LOW AND HIGH ALERTS SET THESE AT 80 AND 300 ADVANCED ALERTS USING DEXCOM G7 FOR TREATMENT DECISIONS THE BASICS BEYOND THE BASICS TROUBLESHOOTING SENSOR GLUCOSE READINGS TRANSMITTER ERRORS ADHESIVE TRAVEL MRI/CAT SCAN/DIATHERMY-NEED TO REMOVE HOW TO GET HELP DEXCOM TECHNICAL SUPPORT DEXCOM CARE TEAM WEB-BASED EDUCATION ENDOCRINE OFFICE STAFF HANDOUTS GIVEN: Dexcom Dedicated Phone Line For [facility] Sensor change guide--step by step instructions Transmitter change guide--step by step instructions LOCATION OF WHERE SENSOR WAS PLACED:back of left arm SENSOR NO:[id number] EMAIL INVITE SENT TO EMAIL FOR DEXCOM [facility]: code provided f/up in May DIABETES A1c is above goal of <7% - Medication management Diabetes -- insulin glargine 35 units twice daily ( 7-8 AM; 8-9 PM -- Insulin novolog 25 units TID - injects before meals - Reviewed [place] lab results - Monitor for s/sx hypoglycemia and contact clinic if BG consistently <70mg/dL - Healthy dietary and lifestyle modifications encouraged - less snacking - Repeat A1c:x 3 months HTN: recent BP wnl on 01/2024 ;metoprolol KERRI-I/ARB - defer to PCP ASCVD: apixaban (DVT 3 years ago) ; fluvastatin Microalb:Oct 24, 2023@09:42 URINE mALB/Cr: 131.8 H mg/G History of Preventive Care: Most recent visit to electrical tester battery: [facility] ; last visit 1 months ago Most recent visit [facility]: last visit 10/2023 Assessment/Plan: 1. 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 ed on today's findings. Patient educated on the imporatance of following up with PCP in recommended timed intervals for control of systemic health and diabetes. Pt. told to continue taking medications as recommended by doctor and maintaing a healthy diet along with exercise. - pt. to follow up with Retina specialist for retinal injections for history of macular edema and other complications from diabetic retinopathy Clinic's Next Scheduled Follow-up: 05/20/24 No barriers; Patient understands and agrees to current treatment plan. If he has any questions, concerns, or changes in current health status he will call or come [facility] to the [facility]. FUTURE APPOINTMENTS: 04/16/2024 15:00 CWM/NO/OTOLARYNGOLOGY 05/12/2024 15:30 CWM/NO/NEPHROLOGY/PROV 07/09/2024 15:30 CWM/SO/PACT 5 11/05/2024 15:00 CWM/NO/OPTOMETRY/[facility] DM type is :T2D Length of Visit: 60 minutes PBM PharmD Pharmacotherapy Rem V12: PHARMACIST INTERVENTIONS: TYPE 2 DIABETES MELLITUS Medication monitoring, no dosage change required, continue to monitor and assess /jamal/ ROB MATTHEW CLINICAL LEATHER PIECE INSPECTOR Signed: 04/03/2024 16:15 Receipt Acknowledged By: 04/03/2024 18:52 /jamal/ SHAW MOSCOSO MD PHYSICIAN ROB MATTHEW [place]
--- OUTSIDE RECORDS SUMMARY | 2024-10-12 19:45 | XMS_ITS | Encounter Summary ---
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 Name Role Phone SHAW MOSCOSO Primary Care [...] MEDIC ARE D Sep 16, 2016 PDPIND [id number] [phone] DAYAMI BERGER IS PATIENT AETNA [facility] ([facility]) MEDICARE ADVANTAGE [facility] ([facility]) Feb 14, 2022 [id number] [phone] DAYAMI BERGER IS PATIENT MEDICAID MEDICAID [facility] CHRISTOP[facility] Jul 17, 2015 MEDICAI D [id number] DAYAMI BERGER IS PATIENT MEDICARE ([facility]) MEDICARE (M) PART A Sep 16, 2010 PART A [id number] DAYAMI BERGER IS PATIENT MEDICARE ([facility]) MEDICARE (M) PART B Sep 16, 2010 PART B [id number] [phone] ADYAMI BERGER IS PATIENT Selected Encounter This section includes the information on record at ID for the Encounter. Date/Time Encounter Type Encounter Description Reason Provider Source Nov 12, 2023 03:00 PM OFFICE O/P EST MOD 30 MIN RENAL/NEPHROL(EXCE PT DIALYSIS) ICD-10-CM E11.22 Type 2 diabetes mellitus w diabetic chronic kidney disease LISA RAMOS [facility] Encounter Template Text not used by ID Assessments - Encounter Diagnoses This section includes the primary and secondary diagnoses documented for the Encounter. Date/Time Primary/Secondary Diagnosis Diagnosis Name Provider Source Nov 12, 2023 03:12 PM PRIMARY Type 2 diabetes mellitus w diabetic chronic kidney disease JOVI RAMOS [facility] [place] [facility] Nov 12, 2023 03:12 PM SECONDARY Chronic kidney disease, stage 3 unspecified JOVI RAMOS [facility] [place] [facility] Nov 12, 2023 03:12 PM SECONDARY Essential (primary) hypertension JOVI RAMOS [facility] [place] [facility] Nov 12, 2023 03:12 PM SECONDARY Obesity, unspecified JOVI RAMOS [facility] [place] [facility] Nov 12, 2023 03:12 PM SECONDARY Type 2 diabetes mellitus without complications JOVI RAMOS ID CNT [facility] [place] [facility] Plan of Treatment: Future Appointments (+ 6 months) and Future Tests (+/- 45 days) The Plan of Treatment section includes future care activities for the patient [facility] This section includes future appointments and future orders which are active, pending or scheduled. Future Appointments This section includes appointments that were scheduled to occur 6 months from the date of the Encounter, up to a maximum of 20 appointments. The data comes from all ID treatment facilities. Appointment Date/Time Appointment Type Appointme nt Facility Name February 06, 2024 03:00 PM AMBULATORY - MEDICINE ID C [facility] [place] [facility] Mar 17, 2024 04:00 PM AMBULATORY - MEDICINE ID C [facility] [place] [facility] Apr 02, 2024 03:00 PM AMBULATORY - MEDICINE ID C [facility] [place] [facility] Apr 16, 2024 03:00 PM [facility]UL[facility] May 12, 2024 03:30 PM AMBULATORY - MEDICINE [facility] Lab Results: +/- 30 days of the encounter This section includes the Chemistry and Hematology Lab Results on record with ID for the patient. Radiology Reports and Pathology Reports are provided separately, in subsequent sections. Lab Results This section contains the Chemistry/Hematology Results that were resulted 30 days before or 30 daysafter the date of the Encounter. Date/Time Source Result Type Result - Unit Interpretation Reference Range Comment Oct 24, 2023 09:43 AM [facility] HEMOGLOBIN A1C PANEL Specimen Type: BLOOD Comment: Values obtained from A1C measurements can vary. For atypical A1C assays, a reported value of 7.0 could actually be between 6.72 and 7.28 if measured by a reference method. A reported value of 9.0 could actually be between 8.73 and 9.27. Ref: http://www.ngs p.org/CAPdata. asp Ordering Provider: DELMER STALLINGS Report Released Date/Time: Aug 01, 2023 09:49 AM Reporting Lab: [facility] [address] [facility] [address] Performing Lab: [facility] [address] [address] HEMOGLOBIN A1C 7.1 H 4.0-5.6 Oct 24, 2023 09:42 AM [facility] MICROALBUMIN CREATININE RATIO PANEL Specimen Type: URINE No comment entered. Ordering Provider: LISA RAMOS Report Released Date/Time: Jun 11, 2023 03:29 PM Reporting Lab: [facility] [address] [address] Performing Lab: [facility] [address] [address] MICROALBUMIN/C REATININE RATIO 131.8 mg/g H 0-29.9 MICROALBUMIN,Q UANTITATIVE 11.2 mg/dL RR UNAVAIL CREATININE URINE 84.98 mg/dL Oct 24, 2023 09:42 AM [facility] FERRITIN Specimen Type: SERUM No comment entered. Ordering Provider: LISA RAMOS Report Released Date/Time: Jun 11, 2023 03:29 PM Reporting Lab: [address] [address] Performing Lab: [facility] [address] [address] FERRITIN 120 ng/mL 20-300 Oct 24, 2023 09:42 AM [facility] IRON & TIBC PANEL Specimen Type: SERUM No comment entered. Ordering Provider: LISA RAMOS A Report Released Date/Time: Jun 11, 2023 03:29 PM Reporting Lab: [address] [address] Performing Lab: [facility] [address] [address] TIBC 284 ug/dL 204-475 IRON 114 ug/dL 40-160 Transferrin Saturation 40.2 20.0-50.0 Oct 24, 2023 09:42 AM [facility] BASIC METABOLIC PANEL (non-fasting) Specimen Type: SERUM No comment entered. Ordering Provider: LISA RAMOS Report Released Date/Time: Jun 11, 2023 03:29 PM Reporting Lab: [address] [address] Performing Lab: [address] [address] UREA NITROGEN 30 mg/dL H 7-25 GLUCOSE 96 mg/dL 65-100 SODIUM 140 mmol/L 135-145 POTASSIUM 4.4 mmol/L 3.5-5.0 CHLORIDE 107 mmol/L 100-110 CO2 26 meq/L 20-30 CREATININE, Serum 1.50 mg/dL H 0.50-1.40 eGFR(CKD-EPI 2020) 49 mL/min L >60 Oct 24, 2023 09:42 AM [facility] CBC Specimen Type: BLOOD No comment entered. Ordering Provider: LISA RAMOS A Report Released Date/Time: Jun 11, 2023 03:29 PM Reporting Lab: [facility] [address] [address] Performing Lab: [facility] [address] [address] WBC 8.24 10*3/uL 4.50-11.00 RBC 5.23 10*6/uL 4.23-5.66 HGB 14.8 g/dL 12.8-17 HCT 45.7 39.2-50.4 MCV 87.4 fL 82-99 MCHC 32.4 g/dL 30.8-35.1 PLT 216 10*3/uL 140-360 RDW-CV 13.1 12.0-16.0 MCH 28.3 pg 26.2-32.6 Oct 24, 2023 09:42 AM [facility] CALCIUM Specimen Type: SERUM No comment entered. Ordering Provider: LISA RAMOS Report Released Date/Time: Jun 11, 2023 03:29 PM Reporting Lab: [address] [address] Performing Lab: [facility] [address] CALCIUM 9.0 mg/dL 8.5-10.2 Oct 24, 2023 09:42 AM [facility] VITAMIN D (25-OH) Specimen Type: SERUM No comment entered. Ordering Provider: LISA RAMOS Report Released Date/Time: Jun 11, 2023 03:29 PM Reporting Lab: [facility] [address] [address] Performing Lab: [facility] [address] VITAMIN D (25-OH) 39 ng/mL 20-50 Oct 24, 2023 09:42 AM [facility] LIPID PANEL, NON FASTING Specimen Type: SERUM No comment entered. Ordering Provider: LISA RAMOS Report Released Date/Time: Jun 11, 2023 03:29 PM Reporting Lab: [address] [address] Performing Lab: ID [facility] [place] [facility] [address] [address] CHOLESTEROL 111 mg/dL TRIGLYCERIDE 112 mg/dL 0-150 LDL calculated 60 mg/dL 0-129 CHOL/HDL 3.8 HDL CHOLESTEROL 29 mg/dL L 40-60 Vital Signs: All taken on the encounter date This section contains inpatient and outpatient Vital Signs collected on the date of the Encounter. Date/Time Temperature Pulse Blood Pressure Respiratory Rate SP02 Pain Height Weight Body Mass Index Source Nov 12, 2023 02:59 PM 97.2 89 122/66 18 96 0 [facility] Social History: Smoking Status (Most current) and Tobacco Use (All prior to encounter date) This section includes the most current, and the historical, smoking and tobacco- related health factors from the ID facility where the Encounter took place. Current Smoking Status This section includes the most current smoking, or tobacco-related health factor, from the ID facility where the Encounter took place. Date/Time Current Smoking Status Comment Debbie ity Jul 09, 2023 03:03 PM VA-TOBACCO [facility] Tobacco Use History This section includes a history of the smoking, or tobacco-related health factors, that were collected on or before the date of the Encounter. The data comes from the ID facility where the Encounter took place. Date/Time Smoking Status/Tobacco Use Comment F acibis Jul 09, 2023 03:03 PM VA-TOBACCO QUIT 15 YRS OR MORE ID [facility] [place] [facility] Jul 05, 2022 01:51 PM VA-TOBACCO NEVER USED ID [facility] [place] [facility] May 11, 2021 01:18 PM VA-TOBACCO [facility]ED [facility] [place] [facility] Encounter Notes: All associated encounter notes This section contains the clinical notes associated to the Encounter. Date/Time Encounter Note(s) Provider Source Nov 12, 2023 01:42 PM NEPHROLOGY E & M NOTE: LOCAL TITLE: NEPHROLOGY NOTE STANDARD TITLE: NEPHROLOGY E & M NOTE DATE OF NOTE: NOV 12, 2023@13:42 ENTRY DATE: NOV 12, 2023@13:42:58 AUTHOR: MELANIA RAMOS COSIGNER: URGENCY: STATUS: COMPLETED Nephrology Note Follow-Up Consultation Problem:Chronic Kidney Disease STage 3 History:73 year old diabetic male with a history of hypertension, perivascular disease(Claudication), hyperlipid, obesity with diabetic retinopathy presenting for continue management of his renal disease. He denies new problems. He has no chest pain or edema. He says he still uses his CPAP machine at night. He loves to monitor his glucose with his new apparatus. Medications: Active and Recently Outpatient Medications (excluding Supplies): Active Outpatient Medications Status 1) FLUTICASONE PROP 50MCG 120D NASAL INHL INSTILL 2 ACTIVE SPRAYS INTO EACH NOSTRIL ONCE DAILY 2) INSULIN,ASPART(EQV-NOVLG) 100UN/ML FLXPEN INJECT 30 HOLD UNITS SUBCUTANEOUSLY THREE TIMES A DAY FOR DIABETES 3) INSULIN,GLARGINE-YFGN 100UNIT/ML PEN 3ML INJECT 44 HOLD UNITS SUBCUTANEOUSLY TWICE DAILY FOR DIABETES (SAME LANTUS) Active Non-VA Medications Status 1) Non-VA APIXABAN 5MG TAB 5MG BY MOUTH ONCE DAILY ACTIVE 2) Non-VA ASPIRIN 81MG EC TAB 81MG BY MOUTH DAILY ACTIVE 3) Non-VA CHOLECALCIF 25MCG (D3-1,000UNIT) TAB 25MCG BY ACTIVE MOUTH ONCE DAILY 4) Non-VA EMPAGLIFLOZIN 25MG TAB 25MG BY MOUTH ONCE ACTIVE DAILY 5) Non-VA FINASTERIDE 5MG TAB 5MG BY MOUTH ONCE DAILY ACTIVE 6) Non-VA FLUVASTATIN NA 40MG CAP 40MG BY MOUTH ONCE ACTIVE DAILY 7) Non-VA LORATADINE 10MG TAB 10MG BY MOUTH ONCE DAILY ACTIVE 8) Non-VA MAGNESIUM OXIDE TAB 400MG BY MOUTH TWICE DAILY ACTIVE 9) Non-VA METOPROLOL TARTRATE 25MG TAB 12.5MG BY MOUTH ACTIVE TWICE DAILY 10) Non-VA MIDODRINE HCL 10MG TAB 10MG BY MOUTH TWICE ACTIVE DAILY 11) Non-VA MIRABEGRON 25MG SA TAB 25MG BY MOUTH ONCE ACTIVE DAILY 12) Non-VA PANTOPRAZOLE NA 40MG EC TAB 40MG BY MOUTH ACTIVE EVERY MORNING 30 MINUTES BEFORE BREAKFAST 13) Non-VA VITAMIN B COMPLEX CAP,ORAL BY MOUTH ON SATURDAY ACTIVE 16 Total Medications General:Obese male alert, cooperative in NAD HEENT: NECK:supple; no JVD LUNGS:few rales on the post right lung field; no wheezing noted. Heart:RRR; no murmur/gallop ABD:Increased abdominal girth; +BS; soft; Ext:no lower leg edema; SKIN: Assessment and Plans: Areas to address in the evaluation and management of the patient's CKD and to reduce renal disease progression is as follows: #1. Chronic Kidney Disease Stage 3a: Review of the patient's labs from Oct 24, 2023 showed a normal bicarb(26), Potassium(4.4), His creatinine was 1.7 is now 1.5 The patient's urine microalb/cr ratio was 166 is now 131.8. Will reassess on return. The patient will return in 5 months obtaining labs for that visit #2. Hypotension: The patient blood pressure reportedly has been staying in the 122/66 p=84 range. patient's blood pressure is much better. No med changes. encouraged exercise and take his meds as prescibed. @3. Diabetes: The patient hgbA1c was 9.4 is now 7.1. The goal is <7.5. He is encouraged to continue his insulin along with dietary adjustments help control with insulin which he is encouraged to continure. The patient was recently started on Ozempic for better glucose control. He should adhere a diabetic diet to help keep his glucose under better control. 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 #4. Hyperlipidemia: The patient's lipid studies this Oct 24 showed a cholesterol of 111, and HDL of 29. He will continue his Atorvastatin and a heart healthy low fat diet. will obtain updated lipid profile for f/u. #5. Nutritional state/obesity: the patient's albumin was 4.0 Oct which is normal. weight was 240 which is higher than desired. He is encouraged to exercise and decrease his intake. A heart healthy low fat diet may be very beneficial. #6. Anemia: the patient's H/H= 14.8/46.1 p=87 this Oct. His H/H is normal. . His iron profile showed an iron of 114, ferritin of 120, TSAT of 40.2 and TIBC of 284. His iron profile has improved. He is presently taking FESO4 325mg/day. He will continue the iron supplement. Will obtain CBC and iron profile on return. 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 His recent labs from November showed a PTH of 96, magnesium 1.9 and PO4 of 2.6. VitD was 28. Will obtain alkaline Phos and calcium on return. . This was a 20 minute visit > 50% of which was spent in counseling and coordination of care. All available test results were reviewed with the . Medication Reconciliation: Outpatient: Has the patient been taking medications as documented in the EMLR? YES: The patient has been taking medications as documented in the EMLR. Essential Medication List for Review used to complete this medication reconciliation. INCLUDED IN THIS LIST: Alphabetical list of active outpatient prescriptions dispensed from this ID (local) and dispensed from another ID or DoD facility (remote) as well as [...] or non-VA provider. /jamal/ MELANIA RAMOS M.D. INDUSTRIAL FURNACE FABRICATOR OYSTER SORTER Signed: 11/12/2023 15:12 MELANIA RAMOS ID [facility]
--- OUTSIDE RECORDS SUMMARY | 2024-10-12 19:45 | XMS_ITS | Encounter Summary ---
Author Organization [employer] Address [address] [place] [address] Care Team Providers Care Facilities Maintenance Supervisor Name Role Phone Unavailable Primary Care Provider Unavailabl e Encounter Details Date Type Department Care Team (Latest Contact Info) Description 08/10/2019 Abstract [facility] CONVERSIONS Dental, Provider, DDS Social History Tobacco Use Types Packs/Day Years Used Date Smoking Tobacco: Never Assessed Sex and Gender Information Value Date Recorded Sex Assigned at Male 07/16/2022 10:23 AM EDT Legal Sex Male 10:23 AM EDT Gender Identity Male 07/16/2022 10:23 AM EDT Sexual Orientation Straight 07/16/2022 10 :23 AM EDT documented as of this encounter Plan of Treatment Not on file documented as of this encounter Visit Diagnoses Not on filedocumented in this encounter
--- OUTSIDE RECORDS SUMMARY | 2024-10-12 19:45 | XMS_ITS | Continuity of Care Document ---
Author Name [facility] Organization [facility] Care Team Providers Care Dump Operator Name Role Phone [facility] Unavailable Unavailable Problems Combined list of problems from Department of Defense and Veterans Affairs facilities. It does not include entries that were removed or entered in error. Problem Status Onset Date Problem Type Date of Resolution Comments Source MRSA SKIN INFECTION Active 04/26/20 09 Condition [place] Allergy to peanuts Active Condition [facility] CAD - Coronary Artery Disease (SCT 58393095) Active Condition [place] Cataract, Cortical (Senile) Active Condition [facility] [place] [facility] Cataract, PSC/Post Subcapsular Active Condition [facility] [place] [facility] Cerebellar stroke syndrome Active Condition May 30, 2020 Entered By: AMBIKA KNIGHT Comment: 03/2020 d/c summary scanned into [facility] Cervical Radiculopathy Active Condition Sep 23, 2006 Entered By: AMBIKA KNIGHT Comment: s/p spinal surgery c7-t1. mri 07/21 [facility] 2006 Entered By: AMBIKA KNIGHT Comment: osteophyte complex mild mass effect on left and minimalJan 2006 Entered By: AMBIKA KNIGHT Comment: mass effect on right. prior surgery site without recurrentJan 2006 Entered By: AMBIKA KNIGHT Comment: herniation [facility] Chronic kidney disease stage 3 due to type 2 diabetes mellitus Active Condition [facility] Claudication (SNOMED CT 767414926) Active Condition [place] Cocaine abuse, continuous use Active Condition [facility] Colorectal Cancer Screening Results Documented and Reviewed (PV) Active Condition May 23, 2011 Entered By: AMBIKA KNIGHT Comment: colonoscopy 04/26 tics in sigmoid, '15 dr galloway +polyps [place] Computed tomography result abnormal Active Condition February 09, 2018 Entered By: AMBIKA KNIGHT Comment: ct angiogram 12/14/17 negative for PE. R lung nodules. scanned into [facility] Corneal Abrasion (ICD-9-CM 918.1) Active Condition [facility] Coronary artery disease, s/p VT Active Condition [facility] Cyst, ganglion Active Condition [facility] Depressive disorder Active Condition [facility] Depressive Disorder NOS Active Condition [facility] Diabetes mellitus type 2 Active Condition [facility] DM Active Condition [facility] Elevated Prostate Specific antigen [psa] Active Condition Feb 17, 2013 Entered By: AMBIKA KNIGHT Comment: prostate biopsy negative 01/26 [place] Erectile dysfunction Active Condition [facility] GERD * (ICD-9-CM 530.81) Active Condition [place] HTN Active Condition [facility] hyperlipidemia Active Condition [facility] Hyperlipidemia (SNOMED CT 83409662) Active Condition [facility] Hypertension (SNOMED CT 35918554) Active Condition [facility] 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 [place] IELD Low back pain Active Condition Jul Entered By: AMBIKA KNIGHT Comment: mri ls spine 06/28/19 scanned into [facility] Low Back Pain * (ICD-9-CM 724.2) Active Condition [facility] Obesity Active Condition [facility] Old Myocardial Infarction Active Condition Nov 27, 2005 Entered By: AMBIKA KNIGHT Comment: '04 s/p 1 stent with 60% blockage still in another vesselAug 2009 Entered By: AMBIKA KNIGHT Comment: s/p RCA stent 04/25. nuclear stress test 05/26 no new ischemia [facility] Onychomycosis * (ICD-9-CM 110.1) Active Condition [facility] Osteoarthritis Active Condition [facility] [place] IE Peripheral neuropathy due to type 2 diabetes mellitus Active Condition [facility] Postsurgical Percutaneous Transluminal Coronary Angioplasty Status Active Condition May 09 010 Entered By: AMBIKA KNIGHT Comment: rca bare metal stent 04/25.LVgram hypokinesis/ak inesis inferoAug 2009 Entered By: AMBIKA KNIGHT Comment: lateral region ef 50%. pharm. myocardial scan negative forOct 2012 Entered By: AMBIKA KNIGHT Comment: significant ischemia 06/28 [place] Postsurgical Status of Cataract Extraction Active Condition Oct 14, 2009 Entered By: AMBIKA KNIGHT Comment: right 09/25 [place] Proliferative retinopathy due to type 2 diabetes mellitus Active Condition [facility] Shoulder Pain Active Condition [facility] Simple upper Gastrointestinal Endoscopy Active Condition May 23, 2011 Entered By: AMBIKA KNIGHT Comment: 04/26 inflammation duodenum/ge junction c/w gerd [place] UTI Active Condition [facility] Diagnosis: ICD-10-CM Z02.89 Encounter for other administrative examinations Active Diagnosis [facility] Diagnosis: ICD-10-CM Z00.8 Encounter for other general examination Active Diagnosis [facility] Diagnosis: ICD-10-CM E11.9 Type 2 diabetes mellitus without complications Active Diagnosis [place] Diagnosis: ICD-10-CM Z46.0 Encounter for fit/adjst of spectacles and contact lenses Active Diagnosis [facility] Diagnosis: ICD-10-CM E11.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, r eye Active Diagnosis [facility] Diagnosis: ICD-10-CM E11.22 Type 2 diabetes mellitus w diabetic chronic kidney disease Active Diagnosis [facility] Diagnosis: ICD-10-CM H90.A21 Snsrnrl hear loss, uni, r ear, with rstrcd hear cntra side Active Diagnosis [facility] Diagnosis: ICD-10-CM H69.93 Unspecified Eustachian tube disorder, bilateral Active Diagnosis [place] Diagnosis: ICD-10-CM N18.31 Chronic kidney disease, stage 3a Active Diagnosis [facility] Medications Combined list of outpatient medications from Department of Defense and Veterans Affairs facilities.Medications provided include 1) outpatient medications from the last 15 months, and 2) patient-reported medications. Medication Details Route Status Patient Instructions Prescription Expires Prescription Number Last Dispense Date Ordering Provider Order Date Order Qty Source ALCOHOL PREP PAD USE 1 PAD TOPICALL Y FOUR TIMES A DAY TOPICA L ACTIVE [place],AL ICE 2020 [facility] APIXABAN 5MG TAB TAKE ONE TABLET BY MOUTH ONCE DAILY ORAL ACTIVE STALL[place],AL ICE 2020 [facility] [place] ASPIRIN 81MG TAB,EC TAKE ONE TABLET BY MOUTH DAILY ORAL ACTIVE STALLINGS,AL ICE 2016 [facility] [place] CARBOXYMETH YLCELLULOSE NA 0.5% SOLN,OPH INSTILL 1 DROP INTO EACH EYE FOUR TIMES A DAY FOR DRY EYE OPHTHA LMIC ACTIVE 06/26/2025 [id number] ANDRIA ALEGRIA 2023 15 [facility] CHOLECALCIF THALIA 25MCG (1,000UNIT) TAB TAKE ONE TABLET BY MOUTH ONCE DAILY ORAL ACTIVE STALLINGS,AL ICE 2022 [facility] EMPAGLIFLOZ IN 25MG TAB TAKE ONE TABLET BY MOUTH ONCE DAILY ORAL ACTIVE STALLINGS,AL ICE 2022 [facility] FERROUS GLUCONATE 324MG TAB TAKE ONE TABLET BY MOUTH THREE TIMES A WEEK ORAL ACTIVE [place] FINASTERIDE 5MG TAB TAKE ONE TABLET BY MOUTH ONCE DAILY ORAL ACTIVE BRONWYN KNIGHT [place] GABAPENTIN 100MG CAP TAKE 1 CAPSULE BY MOUTH THREE TIMES A DAY NEEDED ORAL ACTIVE [place] 2023 [place] GLUCAGON 1MG/JEY INJ,EMERGEN CY KIT INJECT 1 INJECTIO N INTRAMUS CULARLY ONE TIME NEEDED FOR LOW BLOOD SUGAR INTRAM USCULA R 07/18/2024 [id number] STALLINGS,AL ICE 2023 1 [facility] GLUCAGON 1MG/JEY INJ,EMERGEN CY KIT INJECT 1 INJECTIO N INTRAMUS CULARLY ONE TIME NEEDED FOR LOW BLOOD SUGAR INTRAM USCULA R 03/07/2024 [id number] 4 STALL[place],AL ICE 2023 1 [facility] GLUCAGON 1MG/JEY INJ,EMERGEN CY KIT INJECT 1 INJECTIO N INTRAMUS CULARLY ONE TIME NEEDED FOR LOW BLOOD SUGAR INTRAM USCULA R 08/31/2023 [id number] STALL[place],AL ICE 2022 1 [facility] HYDROCODONE 5MG/ACETAMI NOPHEN 325MG TAB TAKE ONE TABLET BY MOUTH TWICE DAILY NEEDED ORAL ACTIVE [place] 2023 [place] INSULIN,ASP ART,HUMAN (EQV-NOVOLO G) 100 UNIT/ML,FLE XPEN,3ML INJECT 25 UNITS SUBCUTAN EOUSLY THREE TIMES A DAY INJECT 15 MINUTES PRIOR TO MEALS SUBCUT ANEOUS ACTIVE 07/10/2025 [id number] Dm MATTHEW 2023 20 [place] INSULIN,ASP ART,HUMAN (EQV-NOVOLO G) 100 UNIT/ML,FLE XPEN,3ML INJECT 30 UNITS SUBCUTAN EOUSLY EVERY MORNING AND INJECT 27 UNITS AT NOON AND INJECT 26 UNITS EVERY EVENING FOR DIABETES SUBCUT ANEOUS DISCONT INUED BY PROVIDE R 02/06/2025 [id number] STALL[place],AL ICE 2023 25 [facility] INSULIN,ASP ART,HUMAN (EQV-NOVOLO G) 100 UNIT/ML,FLE XPEN,3ML INJECT 30 UNITS SUBCUTAN EOUSLY THREE TIMES A DAY FOR DIABETES SUBCUT ANEOUS DISCONT INUED 11/07/2024 [id number] 4 [place]ALL[place],AL ICE 2023 30 [facility] INSULIN,ASP ART,HUMAN (EQV-NOVOLO G) 100 UNIT/ML,FLE XPEN,3ML INJECT 30 UNITS SUBCUTAN EOUSLY EVERY MORNING AND INJECT 30 UNITS AT NOON AND INJECT 26 UNITS EVERY EVENING BEFORE SUPPER SUBCUT ANEOUS DISCONT INUED (EDIT) 08/01/2024 [id number] 3 [place]ALL[place],AL ICE 2022 30 [facility] INSULIN,GLA RGINE-YFGN 100UNIT/ML INJ PEN,3ML INJECT 40 UNITS SUBCUTAN EOUSLY TWICE DAILY FOR DIABETES SUBCUT ANEOUS ACTIVE 02/06/2025 [id number] 4 STALLINGS,AL ICE 2023 25 [facility] INSULIN,GLA RGINE-YFGN 100UNIT/ML INJ PEN,3ML INJECT 44 UNITS SUBCUTAN EOUSLY TWICE DAILY FOR DIABETES SUBCUT ANEOUS DISCONT INUED (EDIT) 12/23/2024 [id number] 4 STALL[place],AL ICE 2023 30 [facility] INSULIN,GLA RGINE-YFGN 100UNIT/ML INJ PEN,3ML INJECT 44 UNITS SUBCUTAN EOUSLY TWICE DAILY FOR DIABETES (SAME LANTUS) SUBCUT ANEOUS DISCONT INUED BY PROVIDE R 11/07/2024 [id number] 4 STALLINGS,AL ICE 2023 30 [facility] INSULIN,GLA RGINE-YFGN 100UNIT/ML INJ PEN,3ML INJECT 45 UNITS SUBCUTAN EOUSLY TWICE DAILY (SAME LANTUS) SUBCUT ANEOUS DISCONT INUED (EDIT) 08/01/2024 [id number] 3 STALLINGS,AL ICE 2022 30 [facility] METOPROLOL TARTRATE 25MG TAB TAKE ONE-HALF TABLET BY MOUTH TWICE DAILY ORAL ACTIVE STALLINGS,AL ICE 2022 [facility] MIDODRINE HCL 10MG TAB TAKE ONE TABLET BY MOUTH TWICE DAILY ORAL ACTIVE BRONWYN KNIGHT 2020 [place] PANTOPRAZOL E NA 40MG TAB,EC TAKE ONE TABLET BY MOUTH EVERY MORNING 30 MINUTES BEFORE BREAKFAS T ORAL ACTIVE [place]ALL[place],AL ICE 2019 [facility] [place] PANTOPRAZOL E NA 40MG TAB,EC TAKE ONE TABLET BY MOUTH EVERY MORNING 30 MINUTES BEFORE BREAKFAS T ORAL ACTIVE STALLINGS,AL ICE 2020 [facility] [place] ROSUVASTATI N CA 40MG TAB TAKE ONE TABLET BY MOUTH ONCE DAILY ORAL ACTIVE NADAZDIN- BOSSHALOM PUSHPADEREKKA M [address] [facility] [place] IELD TADALAFIL 5MG TAB TAKE ONE TABLET BY MOUTH ONCE DAILY ORAL ACTIVE NADAZDIN- BOSKOVIC OGNJENKA M [address] [facility] [place] [place] TERAZOSIN HCL CAP,ORAL TAKE BY MOUTH ONCE DAILY ORAL ACTIVE NADAZDIN- BOSKOVIC PUSHPAZhaneDEJUANNKA M 2023 [place] VITAMIN B COMPLEX CAP,ORAL TAKE BY MOUTH ON SATURDAY ORAL ACTIVE BRONWYN KNIGHT [place] Allergies, Adverse Reactions, Alerts Combined list of allergies from Department of Defense and Veterans Affairs facilities. It does not include entries that were removed or entered in error. Substance Category Reaction Severity Reaction type Status Date Reported Comments Source GABAPENTIN Propensity to adverse reactions to drug (finding) Dizziness active 4 [facility] PEANUTS Propensity to adverse reactions to substance (finding) Airway constrictio n active 4 [facility] Immunizations Combined list of available immunizations from the Department of Defense and Veterans Affairs facilities. 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 Plastic Worker Status Comments Source INFLUENZA, UNSPECIFIED FORMULATION 2022 88 complet ed [facility] TDAP 2021 115 complet ed [facility] INFLUENZA, UNSPECIFIED FORMULATION 2021 88 complet ed [facility] COVID-19 (MODERNA), MRNA, LNP-S, PF, 100 MCG OR 50 MCG DOSE 3 2020 207 complet ed [facility] INFLUENZA, UNSPECIFIED FORMULATION 09/01/ 2021 88 complet ed [facility] PNEUMOCOCCAL POLYSACCHARID E PPV23 2020 33 complet ed [facility] COVID-19 (MODERNA), MRNA, LNP-S, PF, 100 MCG/0.5 ML DOSE 2 2020 207 complet ed MOD; [id number]; 1 [place] COVID-19 (MODERNA), MRNA, LNP-S, PF, 100 MCG/0.5 ML DOSE 1 2020 207 complet ed MOD; [id number]; 1 [place] INFLUENZA, SEASONAL, INJECTABLE 2018 141 complet ed cvs [facility] PNEUMOCOCCAL CONJUGATE PCV 13 2018 133 complet ed [place] INFLUENZA, SEASONAL, INJECTABLE [address] Reinoso [facility] ZOSTER RECOMBINANT 2 2017 187 complet ed [place] ZOSTER RECOMBINANT 1 2017 187 complet ed [place] INFLUENZA, SEASONAL, INJECTABLE 2016 141 complet ed Site: Left Deltoid [place] FLU,3 YRS (HISTORICAL) 2015 88 complet ed Site: Left Deltoid [place] ZOSTER LIVE 2012 121 complet ed [place] FLU,3 YRS (HISTORICAL) 2012 88 complet ed Site: Left Deltoid [place] FLU,3 YRS (HISTORICAL) 2010 88 complet ed Site: Left Deltoid [place] DTAP, UNSPECIFIED FORMULATION 2010 107 complet ed Site: Left Deltoid [place] FLU,3 YRS (HISTORICAL) 2009 88 complet ed [facility] NOVEL INFLUENZA-H1N 1-09, ALL FORMULATIONS 2009 128 complet ed [employer] [place] FLU,3 YRS (HISTORICAL) 2008 88 complet ed Site: Right Deltoid [place] FLU,3 YRS (HISTORICAL) 2008 88 complet ed Site: Left Deltoid [place] FLU,3 YRS (HISTORICAL) 2006 88 complet ed Site: Right Deltoid [place] PNEUMOCOCCAL, UNSPECIFIED FORMULATION 2006 PHIL DIAZ 109 complet ed [place] FLU,3 YRS (HISTORICAL) 2006 88 complet ed [place] FLU,3 YRS (HISTORICAL) 2002 EPHRAIM NINA AM 88 complet ed [place] FLU,3 YRS (HISTORICAL) 2000 INDERCHAPARRITAWINIFRED 88 complet ed [place] FLU VACCINE (HISTORICAL) 1999 88 complet ed [facility] PNEUMOCOCCAL, UNSPECIFIED FORMULATION 1996 EPHRAIM NINA AM 109 complet ed [place] Results Combined list of recent chemistry, hematology and other laboratory results from Department of Defense and Veterans Affairs, ranging from 15 months to all on record, depending upon the facility. Order Name Results Value Reference Range Date Interpretation Specimen Comments Source BASIC METABOLI C PANEL (fasting ) UREA NITROGEN [MASS/VOLU ME] IN SERUM OR PLASMA 24 mg/dL 7 - 25 07/07 Specimen Type: SERUM No comment entered. Ordering Provider: CHINO KNIGHT IE Report Released Date/Time: Jul 09, 2023 03:20 PM Reporting Lab: [facility] [employer] [address] Performing Lab: [facility] [employer] [address] [employer] [facility] BASIC METABOLI C PANEL (fasting ) GLUCOSE [MASS/VOLU ME] IN SERUM OR PLASMA 200 mg/dL 65 - 100 07/07 H Specimen Type: SERUM No comment entered. Ordering Provider: CHINO KNIGHT IE Report Released Date/Time: Jul 09, 2023 03:20 PM Reporting Lab: [facility] [address] [address] Performing Lab: [facility] [employer] [address] [employer] [facility] BASIC METABOLI C PANEL (fasting ) SODIUM [MOLES/VOL UME] IN SERUM OR PLASMA 137 mmol/L 135 - 145 07/07 Specimen Type: SERUM No comment entered. Ordering Provider: CHINO KNIGHT IE Report Released Date/Time: Jul 09, 2023 03:20 PM Reporting Lab: [facility] [address] [address] Performing Lab: [facility] [address] [address] [place] BASIC METABOLI C PANEL (fasting ) POTASSIUM [MOLES/VOL UME] IN SERUM OR PLASMA 4.9 mmol/L 3.5 - 5.0 07/07 Specimen Type: SERUM No comment entered. Ordering Provider: CHINO KNIGHT IE Report Released Date/Time: Jul 09, 2023 03:20 PM Reporting Lab: [facility] [address] [address] Performing Lab: [facility] [address] [address] [place] BASIC METABOLI C PANEL (fasting ) CHLORIDE [MOLES/VOL UME] IN SERUM OR PLASMA 106 mmol/L 100 - 110 07/07 Specimen Type: SERUM No comment entered. Ordering Provider: CHINO KNIGHT IE Report Released Date/Time: Jul 09, 2023 03:20 PM Reporting Lab: [facility] [address] [address] Performing Lab: [facility]OMERYN [address] [address] [place] BASIC METABOLI C PANEL (fasting ) CARBON DIOXIDE, TOTAL [MOLES/VOL UME] IN SERUM OR PLASMA 24 meq/L 20 - 30 07/07 Specimen Type: SERUM No comment entered. Ordering Provider: CHINO KNIGHT IE Report Released Date/Time: Jul 09, 2023 03:20 PM Reporting Lab: [facility] [address] [address] Performing Lab: [facility] [address] [address] [place] BASIC METABOLI C PANEL (fasting ) CREATININE [MASS/VOLU ME] IN SERUM OR PLASMA 1.59 mg/dL 0.50 - 1.40 07/07 H Specimen Type: SERUM No comment entered. Ordering Provider: CHINO KNIGHT IE Report Released Date/Time: Jul 09, 2023 03:20 PM Reporting Lab: [facility]TR[facility] [address] [address] Performing Lab: [facility] [address] [address] [place] BASIC METABOLI C PANEL (fasting ) GLOMERULAR FILTRATION RATE/1.73 SQ M.PREDICTE D [VOLUME RATE/AREA] IN SERUM, PLASMA OR BLOOD BY CREATININE -BASED FORMULA (CKD-EPI 2020) 46 mL/min 60 07/07 L Specimen Type: SERUM No comment entered. Ordering Provider: CHINO KNIGHT IE Report Released Date/Time: Jul 09, 2023 03:20 PM Reporting Lab: [facility] [address] [address] Performing Lab: [facility] [address] [address] [place] CBC AND DIFF (AUTO) LEUKOCYTES [#/VOLUME] IN BLOOD BY AUTOMATED COUNT 7.74 10*3/uL 4.50 - 11.00 07/07 Specimen Type: BLOOD No comment entered. Ordering Provider: CHINO KNIGHT IE Report Released Date/Time: Jul 09, 2023 03:20 PM Reporting Lab: [facility] TR[facility] [address] [address] Performing Lab: [facility] [address] [address] [place] CBC AND DIFF (AUTO) ERYTHROCYT ES [#/VOLUME] IN BLOOD BY AUTOMATED COUNT 4.99 10*6/uL 4.23 - 5.66 07/07 Specimen Type: BLOOD No comment entered. Ordering Provider: CHINO KNIGHT IE Report Released Date/Time: Jul 09, 2023 03:20 PM Reporting Lab: [facility] [address] Performing Lab: [facility]RL [facility]N [facility]ENTERUSE[address] [address] [place] CBC AND DIFF (AUTO) HEMOGLOBIN [MASS/VOLU ME] IN BLOOD 14.6 g/dL 12.8 - 17 10/22 /2024 Specimen Type: BLOOD No comment entered. Ordering Provider: CHINO KNIGHT IE Report Released Date/Time: Jul 09, 2023 03:20 PM Reporting Lab: [facility] [address] [address] Performing Lab: [place] [facility] TRN [facility] CENTERUSETS [address] [address] [place] CBC AND DIFF (AUTO) HEMATOCRIT [VOLUME FRACTION] OF BLOOD BY AUTOMATED COUNT 43.7 39.2 - 50.4 07/07 Specimen Type: BLOOD No comment entered. Ordering Provider: CHINO KNIGHT IE Report Released Date/Time: Jul 09, 2023 03:20 PM Reporting Lab: [facility] W[facility]N [facility] CENTERUSETS [address] [address] Performing Lab: [facility]ITALTRN [facility]ENTERUSE[address] [address] [place] CBC AND DIFF (AUTO) MCV [ENTITIC VOLUME] BY AUTOMATED COUNT 87.6 fL 82 - 99 07/07 Specimen Type: BLOOD No comment entered. Ordering Provider: CHINO KNIGHT IE Report Released Date/Time: Jul 09, 2023 03:20 PM Reporting Lab: [facility]ENTERUSETS [address] [address] Performing Lab: [facility] TRN [facility]ENTERUSETS [address] [address] [place] CBC AND DIFF (AUTO) MCHC [MASS/VOLU ME] BY AUTOMATED COUNT 33.4 g/dL 30.8 - 35.1 07/07 Specimen Type: BLOOD No comment entered. Ordering Provider: CHINO KNIGHT IE Report Released Date/Time: Jul 09, 2023 03:20 PM Reporting Lab: [facility] W[facility]N [facility]ENTERUSETS [address] [address] Performing Lab: [place] [facility]ENTERUSETS [address] [address] [place] CBC AND DIFF (AUTO) PLATELETS [#/VOLUME] IN BLOOD BY AUTOMATED COUNT 241 10*3/uL 140 - 360 07/07 Specimen Type: BLOOD No comment entered. Ordering Provider: CHINO KNIGHT IE Report Released Date/Time: Jul 09, 2023 03:20 PM Reporting Lab: [facility]TRN [address] [address] Performing Lab: [facility]ITALR[facility]ERYN [address] [address] [place] CBC AND DIFF (AUTO) ERYTHROCYT E DISTRIBUTI ON WIDTH [RATIO] BY AUTOMATED COUNT 13.5 12.0 - 16.0 07/07 Specimen Type: BLOOD No comment entered. Ordering Provider: CHINO KNIGHT IE Report Released Date/Time: Jul 09, 2023 03:20 PM Reporting Lab: [facility]TR[facility] [address] [address] Performing Lab: [facility] [address] [address] [place] CBC AND DIFF (AUTO) MONOCYTES [#/VOLUME] IN BLOOD BY AUTOMATED COUNT 0.68 10*3/uL 0.30 - 1.10 07/07 Specimen Type: BLOOD No comment entered. Ordering Provider: CHINO KNIGHT IE Report Released Date/Time: Jul 09, 2023 03:20 PM Reporting Lab: [facility]ITALTRN [address] [address] Performing Lab: [facility] MON[facility]ERYN [address] [address] [place] CBC AND DIFF (AUTO) MCH [ENTITIC MASS] BY AUTOMATED COUNT 29.3 pg 26.2 - 32.6 07/07 Specimen Type: BLOOD No comment entered. Ordering Provider: CHINO KNIGHT IE Report Released Date/Time: Jul 09, 2023 03:20 PM Reporting Lab: [facility]USE[address] [id number] Performing Lab: [facility] [address] [address] [place] CBC AND DIFF (AUTO) NEUTROPHIL S/100 LEUKOCYTES IN BLOOD BY AUTOMATED COUNT 65.1 43.7 - 75.8 07/07 Specimen Type: BLOOD No comment entered. Ordering Provider: CHINO KNIGHT IE Report Released Date/Time: Jul 09, 2023 03:20 PM Reporting Lab: [facility] [address] [address] Performing Lab: [facility] [address] [address] [place] CBC AND DIFF (AUTO) LYMPHOCYTE S/100 LEUKOCYTES IN BLOOD BY AUTOMATED COUNT 20.3 14.0 - 42.3 07/07 Specimen Type: BLOOD No comment entered. Ordering Provider: CHINO KNIGHT IE Report Released Date/Time: Jul 09, 2023 03:20 PM Reporting Lab: [facility] [address] [address] Performing Lab: [facility] [address] [address] [place] CBC AND DIFF (AUTO) MONOCYTES/ 100 LEUKOCYTES IN BLOOD BY AUTOMATED COUNT 8.8 5.1 - 13.7 07/07 Specimen Type: BLOOD No comment entered. Ordering Provider: CHINO KNIGHT IE Report Released Date/Time: Jul 09, 2023 03:20 PM Reporting Lab: [facility] [address] [address] Performing Lab: [facility] [address] [address] [place] CBC AND DIFF (AUTO) EOSINOPHIL S/100 LEUKOCYTES IN BLOOD BY AUTOMATED COUNT 4.9 0.4 - 6.8 07/07 Specimen Type: BLOOD No comment entered. Ordering Provider: CHINO KNIGHT IE Report Released Date/Time: Jul 09, 2023 03:20 PM Reporting Lab: [facility] [address] [address] Performing Lab: [facility] [address] [address] [place] CBC AND DIFF (AUTO) BASOPHILS/ 100 LEUKOCYTES IN BLOOD BY AUTOMATED COUNT 0.6 0.1 - 2.0 07/07 Specimen Type: BLOOD No comment entered. Ordering Provider: CHINO KNIGHT IE Report Released Date/Time: Jul 09, 2023 03:20 PM Reporting Lab: [facility]USE[address] [address] Performing Lab: [facility] [address] [place] CBC AND DIFF (AUTO) NEUTROPHIL S [#/VOLUME] IN BLOOD BY AUTOMATED COUNT 5.04 10*3/uL 2.20 - 7.60 07/07 Specimen Type: BLOOD No comment entered. Ordering Provider: CHINO KNIGHT IE Report Released Date/Time: Jul 09, 2023 03:20 PM Reporting Lab: [facility]ITALTRN [address] [address] Performing Lab: [facility] TRN [address] [address] [place] CBC AND DIFF (AUTO) LYMPHOCYTE S [#/VOLUME] IN BLOOD BY AUTOMATED COUNT 1.57 10*3/uL 1.00 - 3.20 07/07 Specimen Type: BLOOD No comment entered. Ordering Provider: CHINO KNIGHT IE Report Released Date/Time: Jul 09, 2023 03:20 PM Reporting Lab: [facility] [address] [address] Performing Lab: [facility] [address] [address] [place] CBC AND DIFF (AUTO) EOSINOPHIL S [#/VOLUME] IN BLOOD BY AUTOMATED COUNT 0.38 10*3/uL 0.03 - 0.44 07/07 Specimen Type: BLOOD No comment entered. Ordering Provider: CHINO KNIGHT IE Report Released Date/Time: Jul 09, 2023 03:20 PM Reporting Lab: [facility] [address] [address] Performing Lab: [facility] [address] [place] CBC AND DIFF (AUTO) BASOPHILS [#/VOLUME] IN BLOOD BY AUTOMATED COUNT 0.05 10*3/uL 0.01 - 0.13 07/07 Specimen Type: BLOOD No comment entered. Ordering Provider: CHINO KNIGHT IE Report Released Date/Time: Jul 09, 2023 03:20 PM Reporting Lab: [address] [address] Performing Lab: [address] [address] [place] CBC AND DIFF (AUTO) IMMATURE GRANULOCYT ES/100 LEUKOCYTES IN BLOOD BY AUTOMATED COUNT 0.3 0.0 - 0.7 07/07 Specimen Type: BLOOD No comment entered. Ordering Provider: CHINO KNIGHT IE Report Released Date/Time: Jul 09, 2023 03:20 PM Reporting Lab: [address] [address] Performing Lab: [address] [address] [place] CBC AND DIFF (AUTO) IMMATURE GRANULOCYT ES [#/VOLUME] IN BLOOD 0.02 10*3/uL 0.00 - 0.06 07/07 Specimen Type: BLOOD No comment entered. Ordering Provider: CHINO KNIGHT IE Report Released Date/Time: Jul 09, 2023 03:20 PM Reporting Lab: [address] [address] Performing Lab: [address] [address] [place] CBC AND DIFF (AUTO) NRBC % 0.0 0.0 - 0.0 07/07 Specimen Type: BLOOD No comment entered. Ordering Provider: CHINO KNIGHT IE Report Released Date/Time: Jul 09, 2023 03:20 PM Reporting Lab: [address] [address] Performing Lab: [address] [address] [place] CBC AND DIFF (AUTO) NRBC, ABS 0.00 10*3/uL 0.00 - 0.00 07/07 Specimen Type: BLOOD No comment entered. Ordering Provider: CHINO KNIGHT IE Report Released Date/Time: Jul 09, 2023 03:20 PM Reporting Lab: [facility] [address] [address] Performing Lab: [facility] [address] [address] [place] HEMOGLOB IN A1C PANEL HEMOGLOBIN A1C/HEMOGL OBIN.TOTAL IN BLOOD BY HPLC 6.4 4.0 - 5.6 07/07 H Specimen Type: BLOOD Comment: Values obtained from A1C measurement s can vary. For atypical A1C assays, a reported value of 7.0 could actually be between 6.72 and 7.28 if measured by a reference method. A reported value of 9.0 could actually be between 8.73 and 9.27. Ref: http://www. ngsp.org/[place] Pdata.asp Ordering Provider: CHINO KNIGHT IE Report Released Date/Time: Jul 09, 2023 03:20 PM Reporting Lab: [address] [address] Performing Lab: [address] [address] [place] LIPID PANEL FASTING CHOLESTERO L [MASS/VOLU ME] IN SERUM OR PLASMA 132 mg/dL 07/07 Specimen Type: SERUM No comment entered. Ordering Provider: CHINO KNIGHT IE Report Released Date/Time: Jul 09, 2023 03:20 PM Reporting Lab: [address] [address] Performing Lab: [facility] [address] [address] [place] LIPID PANEL FASTING TRIGLYCERI DE [MASS/VOLU ME] IN SERUM OR PLASMA 110 mg/dL 0 - 150 07/07 Specimen Type: SERUM No comment entered. Ordering Provider: CHINO KNIGHT IE Report Released Date/Time: Jul 09, 2023 03:20 PM Reporting Lab: [address] [address] Performing Lab: [address] [address] [place] LIPID PANEL FASTING CHOLESTERO L IN LDL [MASS/VOLU ME] IN SERUM OR PLASMA BY BONITA Phelan 76 mg/dL 0 - 129 07/07 Specimen Type: SERUM No comment entered. Ordering Provider: CHINO KNIGHT IE Report Released Date/Time: Jul 09, 2023 03:20 PM Reporting Lab: [facility] [address] [address] Performing Lab: [facility] [address] [address] [place] LIPID PANEL FASTING CHOLESTERO L.TOTAL/CH OLESTEROL IN HDL [MASS RATIO] IN SERUM OR PLASMA 3.9 07/07 Specimen Type: SERUM No comment entered. Ordering Provider: CHINO KNIGHT IE Report Released Date/Time: Jul 09, 2023 03:20 PM Reporting Lab: [facility]ITALTRN [facility] [address] Performing Lab: [facility] [address] [address] [place] LIPID PANEL FASTING CHOLESTERO L IN HDL [MASS/VOLU ME] IN SERUM OR PLASMA 34 mg/dL 40 - 60 07/07 L Specimen Type: SERUM No comment entered. Ordering Provider: CHINO KNIGHT IE Report Released Date/Time: Jul 09, 2023 03:20 PM Reporting Lab: [facility]OSPITALTRN [facility] [address] Performing Lab: [facility] [address] [address] [place] LIVER FUNCTION PROTEIN [MASS/VOLU ME] IN SERUM OR PLASMA 7.5 g/dL 6.0 - 8.3 07/07 Specimen Type: SERUM No comment entered. Ordering Provider: CHINO KNIGHT IE Report Released Date/Time: Jul 09, 2023 03:20 PM Reporting Lab: [facility]ITALTRN [facility] [address] Performing Lab: [facility] [address] [facility]CTION ALBUMIN [MASS/VOLU ME] IN SERUM OR PLASMA 4.2 g/dL 3.5 - 5.0 07/07 Specimen Type: SERUM No comment entered. Ordering Provider: CHINO KNIGHT IE Report Released Date/Time: Jul 09, 2023 03:20 PM Reporting Lab: [facility]OSPITALTRN [facility] [address] [address] Performing Lab: [facility] TRN [facility] [address] [address] [facility] ALKALINE PHOSPHATAS E [ENZYMATIC ACTIVITY/V OLUME] IN SERUM OR PLASMA 68 U/L 40 - 150 07/07 Specimen Type: SERUM No comment entered. Ordering Provider: CHINO KNIGHT IE Report Released Date/Time: Jul 09, 2023 03:20 PM Reporting Lab: [facility]ITALRENCOM[facility]ERYN [address] [address] Performing Lab: [facility]ITALRENCOM[facility] MON[facility]OMERYN [facility]ENTERUSE[address] [address] [facility] LIVER FUNCTION ASPARTATE AMINOTRANS FERASE [ENZYMATIC ACTIVITY/V OLUME] IN SERUM OR PLASMA 23 U/L 5 - 34 07/07 Specimen Type: SERUM No comment entered. Ordering Provider: CHINO KNIGHT IE Report Released Date/Time: Jul 09, 2023 03:20 PM Reporting Lab: [facility]ERYN [address] [address] Performing Lab: [facility]ITALRENCOM[facility]ERYN [facility]ENTERUSE[address] [address] [facility] LIVER FUNCTION ALANINE AMINOTRANS FERASE [ENZYMATIC ACTIVITY/V OLUME] IN SERUM OR PLASMA 29 U/L 07/07 Specimen Type: SERUM No comment entered. Ordering Provider: CHINO KNIGHT IE Report Released Date/Time: Jul 09, 2023 03:20 PM Reporting Lab: [facility] TRN [facility] [address] [address] Performing Lab: [facility] [address] [address] [facility] FUN[facility] BILIRUBIN. TOTAL [MASS/VOLU ME] IN SERUM OR PLASMA 0.4 mg/dL 0.2 - 1.2 07/07 Specimen Type: SERUM No comment entered. Ordering Provider: CHINO KNIGHT Report Released Date/Time: Jul 09, 2023 03:20 PM Reporting Lab: [address] [address] Performing Lab: [address] [address] [place] TSH THYROTROPI N [UNITS/VOL UME] IN SERUM OR PLASMA 1.83 u[IU]/mL 0.35 - 5.00 07/07 Specimen Type: SERUM No comment entered. Ordering Provider: CHINO KNIGHT IE Report Released Date/Time: Jul 09, 2023 03:20 PM Reporting Lab: [address] [address] Performing Lab: [address] [address] [place] URINALYS IS COLOR OF URINE Light-Ye llow 07/07 Specimen Type: URINE Comment: If Glucose = >500 and Ketones are positive, please alert the Physician. Ordering Provider: CHINO KNIGHT Report Released Date/Time: Jul 09, 2023 03:20 PM Reporting Lab: [address] [address] Performing Lab: [address] [address] [place] URINALYS IS APPEARANCE OF URINE Clear 07/07 Specimen Type: URINE Comment: If Glucose = >500 and Ketones are positive, please alert the Physician. Ordering Provider: CHINO KNIGHT IE Report Released Date/Time: Jul 09, 2023 03:20 PM Reporting Lab: [facility] [address] [address] Performing Lab: [address] [address] [place] URINALYS IS GLUCOSE [MASS/VOLU ME] IN URINE >1000mg/ dL 07/07 Specimen Type: URINE Comment: If Glucose = >500 and Ketones are positive, please alert the Physician. Ordering Provider: CHINO KNIGHT Report Released Date/Time: Jul 09, 2023 03:20 PM Reporting Lab: [facility] [address] [address] Performing Lab: [facility]USE[address] [address] [place] URINALYS IS KETONES [MASS/VOLU ME] IN URINE BY TEST STRIP NEGATIVE mg/dL 07/07 Specimen Type: URINE Comment: If Glucose = >500 and Ketones are positive, please alert the Physician. Ordering Provider: CHINO KNIGHT Report Released Date/Time: Jul 09, 2023 03:20 PM Reporting Lab: [facility] [address] [address] Performing Lab: [facility]USE[address] [address] [place] URINALYS IS ERYTHROCYT ES [PRESENCE] IN URINE SEDIMENT BY LIGHT MICROSCOPY NEGATIVE mg/dL 07/07 Specimen Type: URINE Comment: If Glucose = >500 and Ketones are positive, please alert the Physician. Ordering Provider: CHINO KNIGHT Report Released Date/Time: Jul 09, 2023 03:20 PM Reporting Lab: [facility] [address] [address] Performing Lab: [facility]USE[address] [address] [place] URINALYS IS PROTEIN [MASS/VOLU ME] IN URINE BY TEST STRIP 20 mg/dL 07/07 Specimen Type: URINE Comment: If Glucose = >500 and Ketones are positive, please alert the Physician. Ordering Provider: CHINO KNIGHT Report Released Date/Time: Jul 09, 2023 03:20 PM Reporting Lab: [facility] [address] [address] Performing Lab: [facility]USE[address] [address] [place] URINALYS IS NITRITE [PRESENCE] IN URINE NEGATIVE mg/dL 07/07 Specimen Type: URINE Comment: If Glucose = >500 and Ketones are positive, please alert the Physician. Ordering Provider: CHINO KNIGHT Report Released Date/Time: Jul 09, 2023 03:20 PM Reporting Lab: [address] [address] Performing Lab: [address] [address] [place] URINALYS IS BILIRUBIN. TOTAL [PRESENCE] IN URINE NEGATIVE mg/dL 07/07 Specimen Type: URINE Comment: If Glucose = >500 and Ketones are positive, please alert the Physician. Ordering Provider: CHINO KNIGHT Report Released Date/Time: Jul 09, 2023 03:20 PM Reporting Lab: [address] [address] Performing Lab: [address] [address] [place] URINALYS IS SPECIFIC GRAVITY OF URINE BY REFRACTOME TRY 1.031 1.016 - 1.022 07/07 H Specimen Type: URINE Comment: If Glucose = >500 and Ketones are positive, please alert the Physician. Ordering Provider: CHINO KNIGHT Report Released Date/Time: Jul 09, 2023 03:20 PM Reporting Lab: [facility] [address] Performing Lab: [address] [address] [place] URINALYS IS PH OF URINE BY TEST STRIP 5.5 5.0 - 9.0 07/07 Specimen Type: URINE Comment: If Glucose = >500 and Ketones are positive, please alert the Physician. Ordering Provider: CHINO KNIGHT Report Released Date/Time: Jul 09, 2023 03:20 PM Reporting Lab: [address] [address] Performing Lab: [facility] [address] [address] [place] UR[place]ALYS IS UROBILINOG EN [MASS/VOLU ME] IN URINE BY TEST STRIP Normalmg /dL <2.0 - 2.0 07/07 Specimen Type: URINE Comment: If Glucose = >500 and Ketones are positive, please alert the Physician. Ordering Provider: CHINO KNIGHT Report Released Date/Time: Jul 09, 2023 03:20 PM Reporting Lab: [facility]ITALRENCOM[facility]ERYN [facility]ENTERUSE[address] [address] Performing Lab: [facility]ENTERUSE[address] [address] [place] URINALYS IS LEUKOCYTE ESTERASE [PRESENCE] IN URINE BY TEST STRIP NEGATIVE 07/07 Specimen Type: URINE Comment: If Glucose = >500 and Ketones are positive, please alert the Physician. Ordering Provider: CHINO KNIGHT Report Released Date/Time: Jul 09, 2023 03:20 PM Reporting Lab: [facility]ITALRSHOALS HOSPITALTRN [address] [address] Performing Lab: [facility]ALS HOSPITALTRN [facility]ENTERUSE[address] [address] [place] MICROALB UMIN CREATINI NE RATIO PANEL MICROALBUM IN/CREATIN INE [MASS RATIO] IN URINE 116.9 mg/g 0 - 29.9 05/08 H Specimen Type: URINE No comment entered. Ordering Provider: JESSICA RAMOS Report Released Date/Time: Nov 12, 2023 03:09 PM Reporting Lab: [facility]OS[facility]ITALTRN [address] [address] Performing Lab: [facility] HOS[facility]ITALTRN [facility]ENTERUSE[address] [address] [facility]ITALRENCOM[facility]N [facility] MICROALB UMIN CREATINI NE RATIO PANEL MICROALBUM IN [MASS/VOLU ME] IN URINE 11.6 mg/dL 05/08 Specimen Type: URINE No comment entered. Ordering Provider: JESSICA RAMOS Report Released Date/Time: Nov 12, 2023 03:09 PM Reporting Lab: [facility] [place] [facility] [address] [address] Performing Lab: [facility] [place] [facility] [address] [address] [facility] MICROALB UMIN CREATINI NE RATIO PANEL CREATININE [MASS/VOLU ME] IN URINE 99.23 mg/dL 05/08 Specimen Type: URINE No comment entered. Ordering Provider: JESSICA RAMOS Report Released Date/Time: Nov 12, 2023 03:09 PM Reporting Lab: [facility] [place] [facility] [address] [address] Performing Lab: [facility] [place] [facility] [address] [address] [facility] [facility] PO4 PHOSPHATE [MASS/VOLU ME] IN SERUM OR PLASMA 2.4 mg/dL 2.5 - 5.0 05/07 L Specimen Type: SERUM No comment entered. Ordering Provider: JESSICA RAMOS Report Released Date/Time: Nov 12, 2023 03:09 PM Reporting Lab: [facility] [place] [facility] [address] [address] Performing Lab: [facility] [place] [facility] [address] [address] [facility] W[facility] VITAMIN D (25-OH) 25-HYDROXY VITAMIN D3 [MASS/VOLU ME] IN SERUM OR PLASMA 30 ng/mL 20 - 50 05/07 Specimen Type: SERUM No comment entered. Ordering Provider: JESSICA RAMOS Report Released Date/Time: Nov 12, 2023 03:09 PM Reporting Lab: [facility] [place] [facility] [address] [address] Performing Lab: [facility] [place] [address] [address] [facility] W[facility] [facility] Vital Signs Combined list of inpatient and outpatient Vital Signs from Department of Defense and Veterans Affairs, ranging from 12 months to all on record, depending upon the facility. Vital Sign Value Date Comments Source SYSTOLIC BLOOD PRESSURE 134 07/10/20 15:21:28 [place] DIASTOLIC BLOOD PRESSURE 65 024 15:21:28 [place] PULSE OXIMETRY 96 07/10/2024 15:21:28 [place] WEIGHT 247.8 07/10/2024 15:21:28 [place] BMI 38kg/m2 07/10/2024 15:21:28 [place] TEMPERATURE 97.9 07/10/2024 15:21:28 [place] PULSE 66 07/10/2024 15:21:28 [place] SYSTOLIC BLOOD PRESSURE 113 05/12/20 15:44:12 [facility] [place] [facility] DIASTOLIC BLOOD PRESSURE 69 024 15:44:12 [facility] [place] [facility] PULSE OXIMETRY 96 05/12/2024 15:44:12 [facility] WEIGHT 244 05/12/2024 15:44:12 [facility] [place] BMI 37kg/m2 05/12/2024 15:44:12 [facility] [place] PAIN 0 05/12/2024 15:44:12 [facility] [place] TEMPERATURE 96.8 05/12/2024 15:44:12 [facility] PULSE 76 05/12/2024 15:44:12 [facility] RESPIRATION 16 05/12/2024 15:44:12 [facility] [place] [facility] SYSTOLIC BLOOD PRESSURE 97 04/16/20 15:29:41 [facility] [place] [facility] DIASTOLIC BLOOD PRESSURE 58 024 15:29:41 [facility] [place] [facility] PULSE OXIMETRY 95 04/16/2024 15:29:41 [facility] [place] WEIGHT 238.6 04/16/2024 15:29:41 [facility] [place] BMI 36kg/m2 04/16/2024 15:29:41 [facility] PAIN 0 04/16/2024 15:29:41 [facility] [place] TEMPERATURE 97.2 04/16/2024 15:29:41 [facility] [place] PULSE 80 04/16/2024 15:29:41 [facility] [place] RESPIRATION 18 04/16/2024 15:29:41 [facility] [place] SYSTOLIC BLOOD PRESSURE 123 02/06/20 24 15:03:12 [facility] [place] DIASTOLIC BLOOD PRESSURE 71 024 15:03:12 [facility] [place] PULSE OXIMETRY 95 02/06/2024 15:03:12 [facility] WEIGHT 251.7 02/06/2024 15:03:12 [facility] BMI 38kg/m2 02/06/2024 15:03:12 [facility] PAIN 0 02/06/2024 15:03:12 [facility] TEMPERATURE 96.9 02/06/2024 15:03:12 [facility] [place] PULSE 68 02/06/2024 15:03:12 [facility] RESPIRATION 16 02/06/2024 15:03:12 [facility] [place] SYSTOLIC BLOOD PRESSURE 122 11/12/19 24 14:59:07 [facility] [place] [facility] DIASTOLIC BLOOD PRESSURE 66 11/12/ 024 14:59:07 [facility] [place] [facility] PULSE OXIMETRY 96 11/12/2023 14:59:07 [facility] [place] PAIN 0 11/12/2023 14:59:07 [facility] [place] TEMPERATURE 97.2 11/12/2023 14:59:07 [facility] [place] [facility] PULSE 89 11/12/2023 14[facility]59:07 [facility] [place] RESPIRATION 18 11/12/2023 14:59:07 [facility] [place] [facility] Encounters Combined list of: 1) Encounters from Department of Veterans Affairs facilities going back up to thelast 18 months. 2) Encounters from the Department of Defense facilities going back up to 280 months. Location Location Details Encounter Type Encounter Number Reason For Visit Attending Provider ADM Date DC Date Status Disposition Source [facility] Encounter [id number] 06/06 [facility] OFF[facility] O/P EST MOD 30-39 MIN [id number] Diagnos is: ICD-10- CM N18.31 Chronic kidney disease , stage 3a
[place] RAMOS 06/11 [facility] En[facility] [id number] 06/20 [facility] [id number] 06/20 [facility] En[facility] [id number] 06/25 [facility] [place] OFFICE O/P EST MOD 30-39 MIN [id number] Diagnos is: ICD-10- CM H69.93 Unspeci fied E[place] susana tube disorde r, bilater al
LEXIS KNIGHT 07/09 [place] [facility] Outpatient Encounter [id number] 07/09 [facility] OFFICE O/P EST HI 40-54 MIN [id number] Diagnos is: ICD-10- CM E11.9 Type 2 diabete s mellitu 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< br/> STALLINGS,ALI CE 08/01 [facility] OFF/OP EST JANUARY X REQ PHY/QHP [id number] Diagnos is: ICD-10- CM E11.9 Type 2 diabete s mellitu 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< br/> JANEEN CASTRO 08/01 [facility] CONT GLUC MNTR ANALYSIS I&R [id number] Diagnos is: ICD-10- CM E11.9 Type 2 diabete s mellitu 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< br/> STALLINGSALI CE 08/01 [facility] Out[facility] Encounter [id number] 08/05 [facility] Out[facility] Encounter [id number] 08/15 [facility] Encounter [id number] 08/21 [facility] Out[facility] Encounter [id number] 08/29 [facility] FIT SPECTACLES BIFOCAL [id number] Diagnos is: ICD-10- CM Z46.0 Encount er for fit/adj st of spectac les and contact lenses< br/> ALLAN NOVAK 09/02 [facility] Out[facility] Encounter [id number] 10/14 [facility] INTRM OPH EXAM EST PATIENT [id number] Diagnos is: ICD-10- CM E11.9 Type 2 diabete s mellitu 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< br/> JP HUGGINS 10/31 [facility] Outpatient Encounter [id number] 11/01 [facility] OFFICE O/P EST HI 40 MIN [id number] Diagnos is: ICD-10- CM E11.9 Type 2 diabete s mellitu 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< br/> RUTHIE STALLINGS 11/07 [facility] CONT GLUC MNTR PHYS/QHP EQP [id number] Diagnos is: ICD-10- CM E11.9 Type 2 diabete s mellitu 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< br/> DAMARIS,CHR ISTINE F 12/17 [facility] (631GE) [facility] Out[facility] Encounter [id number] 12/22 [facility] Out[facility] Encounter [id number] 01/11 [facility] Out[facility] Encounter [id number] 01/30 [facility] OFF/OP EST MAY X REQ PHY/QHP [id number] Diagnos is: ICD-10- CM E11.9 Type 2 diabete s mellitu 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< br/> SIMONSVICT ORIA A 02/05 [facility] OFFICE O/P EST HI 40 MIN [id number] Diagnos is: ICD-10- CM E11.9 Type 2 diabete s mellitu 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< br/> STALLINGS,ALI CE 02/05 [facility] CONT GLUC MNTR ANALYSIS I&R [id number] Diagnos is: ICD-10- CM E11.9 Type 2 diabete s mellitu 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< br/> STALLINGS,ALI CE 02/05 [facility] [place] QNHP OL DIG ASSMT&MGMT 5-10 [id number] Diagnos is: ICD-10- CM E11.9 Type 2 diabete s mellitu 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< br/> RAULSWETHA SINCLAIR HOLCOMB 02/06 [place] [facility] Outpatient Encounter [id number] 02/16 [facility] Outpatient Encounter [id number] Diagnos is: ICD-10- CM Z02.89 Encount er for other adminis trative examina tions<b r/> SEVEN KIDD 03/17 [facility] [place] MTMS BY PHARM ADDL 15 MIN [id number] Diagnos is: ICD-10- CM E11.9 Type 2 diabete s mellitu 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< br/> DARVIN MATTHEW A 04/02 [place] [facility] OFF/OP CNSLTJ NEW/EST LOW 30 [id number] Diagnos is: ICD-10- CM H90.A21 Snsrnrl hear loss, uni, r ear, with rstrcd hear cntra side
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
[place] RAMOS 05/12 [facility] Outpatient Encounter [id number] Diagnos is: ICD-10- CM Z02.89 Encount er for other adminis trative examina tions<b r/> NICHOLAS CHANDRA 05/14 [facility] [place] Outpatient Encounter [id number] 05/20 [place] [facility] Out[facility] Encounter [id number] 1.05/20 [facility] Out[facility] Encounter [id number] [facility] Out[facility] Encounter [id number] 06/17 [facility] INTRM OPH EXAM EST PATIENT [id number] 1. 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 ([place] [place] [place] Outpatient Encounter [id number] Diagnos is: ICD-10- CM Z00.8 Encount er for other general examina tion
NADAZDIN-B OSKOVPUSHPA GARNER 07/10 [facility] ([place] [place] [place] [facility] Outpatient Encounter [id number] Diagnos is: ICD-10- CM Z02.89 Encount er for other adminis trative examina tions<b r/> NICHOLAS CHANDRA 08/27 [facility] [place] [place] [facility] Outpatient Encounter [id number] 09/11 [facility] [place] [place] [facility] Outpatient Encounter [id number] 10/09 [facility] [place] [place] [facility] Social History Combined list of available smoking, tobacco, and other social history from Department of Defense and Veterans Affairs facilities. Social History Type Response Date Comment Source Tobacco smoking status [facility] QUIT 15 YRS OR MORE 07/09[facility]2023 [facility] [place] [facility] [place] [facility]05[facility]2022 [facility] [place] [facility] History of tobacco use [place] NEVER [facility]ED 05/11/2021 [facility] [place] [facility] History of tobacco use [place] NEVER USED 02/03/2019 [place] History of tobacco use LIFETIME NON-TOBACCO USER 01/13/2018 [place] History of tobacco use LIFETIME NON-TOBACCO USER 01/04/2017 [place] History of tobacco use LIFETIME NON-TOBACCO USER 12/23/2015 [place] History of tobacco use LIFETIME NON-TOBACCO USER 11/27/2005 patient reportssmoking only crack coccaine [place] History of tobacco use LIFETIME NON-SMOKER 01/22/2003 [place] History of tobacco use LIFETIME NON-TOBACCO USER 08/18/2001 pt states he has never smoked [place] History of tobacco use LIFETIME NON-SMOKER 05/14/2001 [place] Plan of Care List of future care activities from Department of [facility] Affairs facilities. Additional future care activities may be listed in the Assessment and Plan section. Date/Time Care Activity Care Activity Detail Facili ty 10/28/2024 AMBULATORY - MEDICINE AMBULATORY - [facility]ICI [place] [facility] [facility] 11/05/2024 AMBULATORY - MEDICINE AMBULATORY - MEDICI [place] [facility] [place] [facility] 11/10/2024 AMBULATORY - MEDICINE AMBULATORY - MEDICI [place] [facility] [place] [facility] 12/15/2024 AMBULATORY - MEDICINE AMBULATORY - MEDICI [place] [facility] [place] [facility] 11/12/2024 Laboratory - Director [employer] ry Order BASIC METABOLIC PANEL (non-fasting) BLOOD (SST-SERUM) SP [facility] 11/12/2024 Laboratory - Director Corporate Security ry Order CBC BLOOD (LAV-BLOOD) SP [facility] 11/12/2024 Laboratory - Director Corporate Security ry Order FERRITIN BLOOD (SST-SERUM) SP [facility] [place] [facility] 11/12/2024 Laboratory - Director Corporate Security ry Order IRON and TIBC PANEL BLOOD (SST-SERUM) [facility] [place] [facility] 11/12/2024 Laboratory - Director Corporate Security ry Order LIPID PANEL, NON FASTING BLOOD (SST-SERUM) SP [facility] [place] [facility] 11/12/2024 Laboratory - Director Corporate Security ry Order MICROALBUMIN CREATININE RATIO PANEL URINE (RANDOM) SP [facility] [place] [facility]
--- OUTSIDE RECORDS SUMMARY | 2024-10-12 19:46 | XMS_ITS | Clinical Summary ---
Author Organization [facility] Address [address] [place] [address] Phone Care Team Providers Care Drier Tender Naphthalene Name Role Phone Manan Reinsoo MD Primary Care Provider [phone] Allergies Active Allergy Reactions Criticality Noted Date Comments Nut - Unspecified Anaphylaxis,Swelling High 01/16/20 16 States pecans or almonds allergy , closes throat up Medications Medication Sig Dispensed Refills Start Date End Date Status blood sugar diagnostic (Accu-Chek Love Plus test strp) test strip USE TO TEST BLOOD SUGAR ONCE A DAY 12/17/2018 Active apixaban (ELIQUIS) 5 mg tablet Take by mouth. Active aspirin 81 mg EC tablet TAKE ONE TABLET BY MOUTH DAILY AT 9AM 02/08/2022 Active EPINEPHrine 1 mg/mL kit injection Inject as directed See administration instructions. Active ferrous sulfate 325 mg (65 mg elemental iron) tablet TAKE ONE TABLET BY MOUTH DAILY AT 9AM 01/25/2023 Active empagliflozin (Jardiance) 25 mg tablet Take 1 tablet (25 mg total) by mouth 1 (one) time each day. 03/08/2021 Active magnesium oxide (MAG-OX) 400 mg (241.3 elemental magnesium) tablet TAKE ONE TABLET BY MOUTH TWICE DAILY @ 9AM & 5PM 02/08/2022 Active midodrine HCl (MIDODRINE ORAL) Take by mouth. Acti ve metoprolol tartrate (LOPRESSOR) 25 mg tablet Take 0.5 tablets (12.5 mg total) by mouth. Active pantoprazole (PROTONIX) 40 mg EC tablet Take 1 tablet (40 mg total) by mouth. Active rosuvastatin (CRESTOR) 40 mg tablet Take 1 tablet (40 mg total) by mouth 1 (one) time each day. Active tadalafiL (CIALIS) 5 mg tablet Take 1 tablet (5 mg total) by mouth 1 (one) time each day. 01/14/2023 Active finasteride (PROSCAR) 5 mg tablet Take 1 tablet (5 mg total) by mouth. Active insulin aspart (NovoLOG U-100 Insulin aspart) 100 unit/mL injection Inject 11 Units under the skin. Active insulin glargine (LANTUS) 100 unit/mL injection Inject 55 Units under the skin. 01/11/2020 Active gabapentin (NEURONTIN) 100 mg capsule Take 1 capsule (100 mg total) by mouth if needed. Active hydrocodone/acetam inophen (VICODIN ORAL) Take 5 mg by mouth if needed. 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 08/04/2024 Diabetes mellitus due to und erlying condition with diabetic autonomic neuropathy 08/04/2024 Corns and callosities 08/04/2024 Chronic venous hypertension (idiopathic) with ulcer and inflammation of right lower extremity 08/04/2024 History of colon polyps 11/19/2023 Overview (11/19/2023): 10/20/2015 Dyspnea on exertion 09/27/2021 Cerebrovascular accident (CVA) 04/13/2021 Overview (11/19/2023): Last Assessment & Plan: Does not appear he has had any holter monitoring, it has been mentioned in the past of a questionable irregular HR, Holter was ordered but not completed. He is already on Eliquis but I think it is reasonable to ensure there is not diagnosis of AFIb behind all of this. Will complete 14 d ROCT Orthostatic hypotension 04/13/2021 Overview (11/19/2023): Last Assessment & Plan: Much improved, doing well with Midodrine, Lasix is now Sat and also. Doxazosin was decreased as well Pulmonary embolism 04/13/2021 Osteomyelitis of toe of right foot 06/04/2019 CKD (chronic kidney disease) stage 3, GFR 30-59 ml/min 04/08/2019 Microalbuminuria 04/08/2019 Chronic back pain 11/03/2018 Coronary artery disease invo lving [place] coronary artery of [place] heart without angina pectoris 10/01/2017 Overview (11/19/2023): Last Assessment & Plan: No ischemic or heart failure symptoms. 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 10/31/2016 Osteoarthritis of spine with radiculopathy, lumb ar region 10/31/2016 Obstructive sleep apnea 01/24/2016 Overview (11/19/2023): [facility] [place]ysomnogram: Date 12/10/2017; SE 77%; SM 87%; REM 25%; RDI 21 (AHI 17), worse in REM (RDI 47 - AHI 43), Central apneas 0; Obstructive apneas 25; Mixed apneas 1; hypopneas 72; RERAs 25; average oxygen saturation 95% (lowest 87% - without saturations <88% for 5% or more of study); PLMs 3. - Obstructive Sleep Apnea - moderate overall and severe in REM; mostly hypopneas and obstructive apneas; no sleep related hypoventilation by 2018 diagnostic polysomnogram. 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 Erectile dysfunction 10/17/2015 BPH (benign prostatic hyperplasia) 10/07/2015 Overview (11/19/2023): Elevated PSA /Laser vaporization with transurethral resection of prostate/ biopsies negative / Dr De La Cruz 2014 Hypercholesteremia 10/07/2015 Overview (11/19/2023): Last Assessment & Plan: Do not see a recent lipid panel, I will order this, goal LDL is less than 70. Old IA (myocardial infarction) 10/07/2015 Overview (11/19/2023): stentsx2, one in 2003 and RCA stent 04/25 Type 2 diabetes mellitus with renal manifestatio ns 10/07/2015 Encounters Date Type Department Care Team Description 09/22/2024 3:00 PM EST Office Visit [facility] [address] [place] [phone] Sly Welch PA Chronic venous hypertension (idiopathic) with ulcer and inflammation of right lower extremity (CMS/HCC) (Primary Dx); Non-pressure chronic ulcer of other part of right lower leg with fat layer exposed (CMS/HCC); Diabetes mellitus due to underlying condition with diabetic autonomic neuropathy, with long-term current use of insulin (CMS/HCC) 09/15/2024 9:30 AM EST Office Visit [facility] [address] [place] [phone] Sergio Rodriguez MD Chronic venous hypertension (idiopathic) with ulcer and inflammation of right lower extremity (CMS/HCC) (Primary Dx); Non-pressure chronic ulcer of other part of right lower leg with fat layer exposed (CMS/HCC); Diabetes mellitus due to underlying condition with diabetic autonomic neuropathy, with long-term current use of insulin (CMS/HCC) 09/01/2024 2:45 PM EST Office Visit [facility] [address] [place] [phone] Sly Welch PA Chronic venous hypertension (idiopathic) with ulcer and inflammation of right lower extremity (CMS/HCC) (Primary Dx); Non-pressure chronic ulcer of other part of right lower leg with fat layer exposed (CMS/HCC); Diabetes mellitus due to underlying condition with diabetic autonomic neuropathy, with long-term current use of insulin (CMS/HCC) 08/18/2024 2:30 PM EST Office Visit [facility] [address] [place] [phone] Sly Welch PA Chronic venous hypertension (idiopathic) with ulcer and inflammation of right lower extremity (CMS/HCC) (Primary Dx); Non-pressure chronic ulcer of other part of right lower leg with fat layer exposed (CMS/HCC); Diabetes mellitus due to underlying condition with diabetic autonomic neuropathy, unspecified whether dry yard worker insulin use (CMS/HCC) 08/11/2024 [facility]phone [email or web address] [address] [phone] Vanessa Joy [place] DME request (Oxygen therapy SWO sent to [facility]. Fax confirmation received.) 08/04/2024 2:45 PM EST Office Visit [facility] [address] [place] [phone] Sly Welch PA Non-pressure chronic ulcer of other part of right lower leg with fat layer exposed ([facility]/HCC) (Primary Dx); Diabetes mellitus due to underlying condition with diabetic autonomic neuropathy, unspecified whether senior care insulin use ([facility]); Corns and callosities; Chronic venous hypertension (idiopathic) with ulcer and inflammation of right lower extremity ([facility]/HCC) 07/27/2024 Telephone [email or web address] [address] [phone] Khushboo Hurt NP dme request 07/14/2024 2:45 PM EDT - 07/14/2024 11:59 PM EDT Hospital Encounter [facility] [address] [place] [phone] Sly Welch PA Discharge Disposition: Home or Self Care from Last 3 Months Immunizations Name Administration Dates Next Due Influenza Quadravalent, 0.5m l (Fluzone High-dose) 65yo and older 09/10/2016 Pneumococcal polysaccharide 23 valent (Pneumovax 23) 2yo and older 07/15/2007 Tdap Tetanus diptheria acell ular pertussis (Boostrix; Adacel) 7yo and older 03/02/2011 Zoster Live 06/08/2013 Surgical History Surgery Date Site/Laterality Comments OTHER SURGICAL HISTORY PROCEDURE: ---- OTHER ----; COMMENT: laser vaporization with transurethral rescetion prostate CATARACT EXTRACTION PROCEDURE: HISTORICAL CATARACT REMOVAL BACK SURGERY 2004 PROCEDURE: HISTORICAL BACK SURGERY; COMMENT: [id number] CARDIAC CATHETERIZATION PROCEDURE: HISTORICAL CARDIAC CATH UPPER GASTROINTESTINAL ENDOSCOPY 04/2011 PROCEDURE: UPPER GI ENDOSCOPY/EXAM; COMMENT: inflamm duodenum Medical History Medical History Date Comments Coronary artery disease invo lving [place] coronary artery with other forms of angina pectoris 10/07/2015 DX:Coronary artery disease involving [place] coronary artery with other forms of angina pectoris; COMMENT: stentsx2, no details, one in 2001, another 2004 BPH (benign prostatic hyperplasia) 10/07/2015 DX:BPH (benign prostatic hyperplasia) Hypercholesteremia 10/07/2015 DX:Hyperchole steremia Erectile dysfunction 10/17/2015 DX:Erectile dysfunction HTN (hypertension) 10/20/2015 DX:HTN (hyper tension) Onychomycosis 10/20/2015 DX:Onychomycosis Background diabetic retinopa thy (CMS/HCC) 10/20/2015 DX:Background diabetic retin opathy (HCC) DM (diabetes mellitus), type 2 with ophthalmic complications (CMS/HCC) 10/20/2015 DX:DM (diabetes kory litus), type 2 with ophthalmic complications (HCC) Old IA (myocardial infarction) 10/07/2015 D X:Old IA (myocardial infarction); COMMENT: stentsx2, no details, one in 2001, another 2004 Diverticulosis 10/20/2015 DX:Diverticulosi s; COMMENT: CN 2010 Depressive disorder 10/20/2015 DX:Depressiv e disorder GERD (gastroesophageal reflux disease) 10/20/2015 DX:GERD (gastroesophageal reflux disease) History of colon polyps 10/20/2015 DX:Histo ry of colon polyps; COMMENT: Type not specified in transfer notes Type 2 diabetes mellitus wit h vascular disease ([facility]/HCC) 10/07/2015 DX:Type 2 diabetes mellitus with vascular disease (HCC) Diabetic neuropathy ([facility]) 10/20/2015 DX :Diabetic neuropathy (HCC) Type 2 diabetes mellitus wit h neurological manifestations ([facility]) 10/20/2015 DX:Type 2 diabet es mellitus with neurological manifestations (HCC) Type 2 diabetes mellitus wit h renal manifestations ([facility]) 10/07/2015 DX:Type 2 diabetes mellitus with renal manifestations (HCC) Microalbuminuria 04/08/2019 DX:Microalbumin uria CKD (chronic kidney disease) stage 3, GFR 30-59 ml/min ([facility]) 04/08/2019 DX:CKD (chronic kidney dise ase) stage 3, GFR 30-59 ml/min ([facility]) Family History Medical History Relation Name Comments Diabetes Father Heart attack Mother at age 63 Heart attack Sister 1 at age 63 with heart condition, ?not IA Diabetes Sister 2 Relation Name Status Comments Father Mother Sister 1 Sister 2 Social History Tobacco Use Types Packs/Day Years Used Date Smoking Tobacco: Never Smokeless Tobacco: Never Alcohol Use Standard Drinks/Week Comments Not Currently 0 (1 standard drink = 0.6 oz pur e alcohol) Sex and Gender Information Value Date Recorded Sex Assigned at Not on file Gender Identity Not on file Sexual Orientation Not on file Job Start Date Occupation Industry Not on file Not on file Not on file Obstetrics History Last Filed Vital Signs Vital Sign Reading Time Taken Comments Blood Pressure 132/61 09/22/2024 3:34 PM EST Pulse 64 09/22/2024 3:34 PM EST Temperature 36.2 ??C (97.1 ??F) 09/22/2024 3:34 PM ES T Respiratory Rate 19 09/22/2024 3:34 PM EST Oxygen Saturation 97% 09/22/2024 3:34 PM EST Inhaled Oxygen Concentration - - Weight 109 kg (240 lb) 08/04/2024 3:30 PM EST Height 172.7 cm (5' 8 ) 08/04/2024 3:30 PM EST Body Mass Index 36.49 08/04/2024 3:30 PM EST Plan of Treatment Health Maintenance Due Date Last Done Comments Diabetes: Annual GFR (Glomerular Filtration Rate) 1952 Diabetes: Annual Foot Exam 1962 Diabetes: Annual Retina Eye Exam 1962 RSV Immunization Patients 60+ Years Old (1 - Risk 60-74 years 1-dose series) 2012 Zoster Vaccines (2 of 3) 08/03/2013 06/08/2013 DTaP,Tdap,and Td Vaccines (2 - Td or Tdap) 03/02/2021 03/02/2011 Cholesterol Screening (Lipid Panel) 08/25/2022 Colorectal Cancer Screening: Colonoscopy 08/25/2022 Depression Screening 08/25/2022 Hepatitis C Screening 08/25/2022 Medicare Annual Wellness Visit 08/25/2022 Social Influencers of Health Screening 08/25/2022 Hypertension/CHF/CAD Annual BMP Blood Test 08/26/2022 Diabetes: Annual Urine Albumin-Creatinine Ratio (uACR) 09/01/2022 Diabetes: Blood Sugar Control Test (HGBA1C) 09/01/2022 COVID-19 Vaccine ( season) 2024 09/05/2022, 07/11/2021, 12/17/2020, Additional history exists Falls Risk Assessment 08/04/2025 08/04/2024 Pneumococcal Vaccine: 65+ Years Completed 05/11/2021, 02/03/2019, 05/08/2010, Additional history exists Influenza Vaccine Completed 07/10/2024, , 07/02/2022, Additional history exists HIB Vaccines Aged Out No longer eligi [...] on patient's age to complete this topic MMR Vaccines Aged Out No longer eligi ble based on patient's age to complete this topic Meningococcal ACWY Vaccine Aged Out N o longer eligible based on patient's age to complete this topic RSV Immunization Patients Under 20 months Aged Out No longer eligible based on patient's age to complete this topic Varicella Vaccines Aged Out No longer eligible based on patient's age to complete this topic Goals Goal Patient Goal Type Associated Problems Recent Progress Patient-Stated? Author Wound volume breakdown reduced by X% by week 4 Care Plan Impaired Tissue Mireille Dan RN Wound volume breakdown reduced by X% by week 8 Care Plan Impaired Tissue Mireille Dan RN Wound volume breakdown reduced by X% by week 12 Care Plan Impaired Tissue Mireille Dan RN Quit using tobacco (cigarettes, smokeless, etc) Care Plan Education needed on impact of smoking on wound Mireille Dan RN Reduce tobacco use (cigarettes, smokeless, etc) Care Plan Education needed on impact of smoking on wound Mireille Dan RN Decrease Wound Volume by X% by date (in notes) Care Plan Education needed on impact of smoking on wound Mireille Dan RN Patient and Caregiver Understand Wound Care Education Care Plan Education needed related to ulceration/compr omised skin integrity. No Mireille Yan RN Procedures Procedure Name Priority Date/Time Associated Diagnosis Comments DEBRIDEMENT Routine 09/01/2024 2:45 PM EST Chronic venous hypertension (idiopathic) with ulcer and inflammation of right lower extremity (CMS/HCC) Non-pressure chronic ulcer of other part of right lower leg with fat layer exposed (CMS/HCC) Diabetes mellitus due to underlying condition with diabetic autonomic neuropathy, with long-term current use of insulin (CMS/HCC) DEBRIDEMENT Routine 08/18/2024 2:30 PM EST Chronic venous hypertension (idiopathic) with ulcer and inflammation of right lower extremity (CMS/HCC) Non-pressure chronic ulcer of other part of right lower leg with fat layer exposed (CMS/HCC) Diabetes mellitus due to underlying condition with diabetic autonomic neuropathy, unspecified whether dry yard worker insulin use (CMS/HCC) DEBRIDEMENT Routine 08/04/2024 2:45 PM EST Non-pressure chronic ulcer of other part of right lower leg with fat layer exposed (CMS/HCC) Diabetes mellitus due to underlying condition with diabetic autonomic neuropathy, unspecified whether dry yard worker insulin use (CMS/HCC) from Last 3 Months Results * Debridement Venous Ulcer Right;Lower;Lateral Leg (09/01/2024 2:45 PM EST) Narrative Sergio Rodriguez MD - 09/01/2024 2:45 PM EST LAVON Moe ? 09/01/2024 ??3:31 PM Debridement Venous Ulcer Right;Lower;Lateral Leg Performed by: LAVON Moe Authorized by: LAVON Moe ?? Associated wounds: Wound Venous Ulcer 05/25/24 Leg Right;Lower;Lateral Consent: ??Consent obtained: ??Verbal ??Consent given by: ??Patient ??Risks discussed: Yes ?? Time out: Immediately prior to the procedure a time out was called ?? Debridement Details: ??Performed by: ??PA ??Type: selective ?Pain control: ??Lidocaine 4% ??Severity of Tissue Pre Debridement: ??Fat layer exposed ??Severity of Tissue Post Debridement: ??Fat layer exposed ??Time taken: ??09/01/2024 2:57 PM ??Length (cm): ??0.3 ??Width (cm): ??0.2 ??Depth (cm): ??0.5 ??Area (cm^2): ??0.06 ??Time taken: ??09/01/2024 2:58 PM ??Length (cm): ??0.3 ??Width (cm): ??0.2 ??Depth (cm): ??0.5 ??Percent Debrided (%): ??100 ??Surface Area (cm^2): ??0.06 ??Area Debrided (cm^2): ??0.06 ??Volume (cm^3): ??0.03 ??Tissue and other material debrided: subcutaneous tissue ?Devitalized tissue debrided: exudate and fibrin ?Instrument: ??Curette ??Amount of bleeding: none ?Hemostasis obtained with: ??Not applicable ??Procedural pain: ??0 ??Post-procedural pain: ??0 ??Response to treatment: ??Procedure was tolerated well Sly DOLL IN CLINIC/BEDSIDE O RDERABLES * Debridement Venous Ulcer Right;Lower;Lateral Leg (08/18/2024 2:30 PM EST) Narrative Sergio Rodriguez MD - 08/18/2024 2:30 PM EST LAVON Moe ? 08/18/2024 ??3:23 PM Debridement Venous Ulcer Right;Lower;Lateral Leg Performed by: LAVON Moe Authorized by: LAVON Moe ?? Associated wounds: Wound Venous Ulcer 05/25/24 Leg Right;Lower;Lateral Consent: ??Consent obtained: ??Verbal ??Consent given by: ??Patient ??Risks discussed: Yes ?? Time out: Immediately prior to the procedure a time out was called ?? Debridement Details: ??Performed by: ??PA ??Type: chemical ?Severity of Tissue Pre Debridement: ??Fat layer exposed ??Severity of Tissue Post Debridement: ??Fat layer exposed ??Time taken: ??08/18/2024 2:48 PM ??Length (cm): ??0.3 ??Width (cm): ??0.2 ??Depth (cm): ??0.8 ??Area (cm^2): ??0.06 ??Time taken: ??08/18/2024 2:49 PM ??Length (cm): ??0.3 ??Width (cm): ??0.2 ??Depth (cm): ??0.8 ??Percent Debrided (%): ??100 ??Surface Area (cm^2): ??0.06 ??Area Debrided (cm^2): ??0.06 ??Volume (cm^3): ??0.05 ??Tissue and other material debrided: subcutaneous tissue ?Instrument: ??Other ??Other instrument: ??Silver nitrate ??Hemostasis obtained with: ??Not applicable ??Procedural pain: ??0 ??Post-procedural pain: ??0 ??Response to treatment: ??Procedure was tolerated well Sly DOLL IN CLINIC/BEDSIDE O RDERABLES * Debridement Venous Ulcer Right;Lower;Lateral Leg (08/04/2024 2:45 PM EST) Narrative Sergio Rodriguez MD - 08/04/2024 2:45 PM EST LAVON Moe ? 08/04/2024 ??4:14 PM Debridement Venous Ulcer Right;Lower;Lateral Leg Performed by: LAVON Moe Authorized by: LAVON Moe ?? Associated wounds: Wound Venous Ulcer 05/25/24 Leg Right;Lower;Lateral Consent: ??Consent obtained: ??Verbal ??Consent given by: ??Patient ??Risks discussed: Yes ?? Time out: Immediately prior to the procedure a time out was called ?? Debridement Details: ??Performed by: ??PA ??Type: conservative sharp ?Pain control: ??Lidocaine 4% ??Severity of Tissue Pre Debridement: ??Fat layer exposed ??Severity of Tissue Post Debridement: ??Fat layer exposed ??Time taken: ??08/04/2024 3:34 PM ??Length (cm): ??0.4 ??Width (cm): ??0.3 ??Depth (cm): ??0.6 ??Area (cm^2): ??0.12 ??Time taken: ??08/04/2024 3:35 PM ??Length (cm): ??0.4 ??Width (cm): ??0.3 ??Depth (cm): ??0.6 ??Percent Debrided (%): ??100 ??Surface Area (cm^2): ??0.12 ??Area Debrided (cm^2): ??0.12 ??Volume (cm^3): ??0.07 ??Tissue and other material debrided: subcutaneous tissue ?Devitalized tissue debrided: biofilm and slough ?Instrument: ??Curette ??Amount of bleeding: none ?Hemostasis obtained with: ??Not applicable ??Procedural pain: ??0 ??Post-procedural pain: ??0 ??Response to treatment: ??Procedure was tolerated well Sly DOLL IN CLINIC/BEDSIDE O RDERAYULI from Last 3 Months Additional Health Concerns Active Problems Noted Date Diagnosed Date Impaired Tissue 08/04/2024 Education needed on impact of smoking on wound 1 10/04/2023 Education needed related to ulceration/compromised skin integrity. 08/04/2024 Advance Directives Documents on File Type Date Recorded Patient Revenue Manager Expl anation Health Care Decision (hx) 02/03/2021 AD WATKINS DIRECTIVE Health Care Decision (hx) 02/03/2021 AD WATKINS DIRECTIVE Health Care Decision (hx) 02/03/2021 AD WATKINS DIRECTIVE Health Care Decision (hx) 02/03/2021 AD WATKINS DIRECTIVE Health Care Decision (hx) 02/03/2021 AD WATKINS DIRECTIVE Health Care Decision (hx) 02/03/2021 AD WATKINS DIRECTIVE Health Care Decision (hx) 02/03/2021 AD WATKINS DIRECTIVE Health Care Decision (hx) 02/03/2021 AD WATKINS DIRECTIVE Health Care Decision (hx) 02/03/2021 AD WATKINS DIRECTIVE Health Care Decision (hx) 02/03/2021 AD WATKINS DIRECTIVE Health Care Decision (hx) 02/03/2021 AD WATKINS DIRECTIVE Health Care Decision (hx) 02/03/2021 AD WATKINS DIRECTIVE Health Care Decision (hx) 02/03/2021 AD WATKINS DIRECTIVE Health Care Decision (hx) 02/03/2021 AD WATKINS DIRECTIVE Health Care Decision (hx) 02/03/2021 AD WATKINS DIRECTIVE Health Care Decision (hx) 02/03/2021 AD WATKINS DIRECTIVE Health Care Decision (hx) 02/03/2021 AD WATKINS DIRECTIVE Health Care Decision (hx) 02/03/2021 AD WATKINS DIRECTIVE Health Care Decision (hx) 02/03/2021 AD WATKINS DIRECTIVE Health Care Decision (hx) 02/03/2021 AD WATKINS DIRECTIVE Health Care Decision (hx) 02/03/2021 AD WATKINS DIRECTIVE Health Care Decision (hx) 02/03/2021 AD WATKINS DIRECTIVE Health Care Decision (hx) 02/03/2021 AD WATKINS DIRECTIVE Health Care Decision (hx) 02/03/2021 AD WATKINS DIRECTIVE Health Care Decision (hx) 01/17/2021 AD WATKINS DIRECTIVE Health Care Decision (hx) 01/17/2021 AD WATKINS DIRECTIVE Health Care Decision (hx) 01/17/2021 AD WATKINS DIRECTIVE Health Care Decision (hx) 01/17/2021 AD WATKINS DIRECTIVE Health Care Decision (hx) 01/17/2021 AD WATKINS DIRECTIVE Health Care Decision (hx) 01/17/2021 AD WATKINS DIRECTIVE Health Care Decision (hx) 01/17/2021 AD WATKINS DIRECTIVE Health Care Decision (hx) 01/17/2021 AD WATKINS DIRECTIVE Health Care Decision (hx) 01/17/2021 AD WATKINS DIRECTIVE Health Care Decision (hx) 01/17/2021 AD WATKINS DIRECTIVE Health Care Decision (hx) 01/17/2021 AD WATKINS DIRECTIVE Health Care Decision (hx) 01/17/2021 AD WATKINS DIRECTIVE Care Teams Drier Tender Naphthalene Relationship Specialty Start Date End Date Manan Reinoso MD [address] [place] [address] PCP - General Internal Medicine 04/06/19
--- OUTSIDE RECORDS SUMMARY | 2024-10-12 19:46 | XMS_ITS | Encounter Summary ---
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 Name Role Phone SHAW MOSCOSO Primary Care [...] MEDIC ARE D Sep 16, 2016 PDPIND [id number] [phone] DAYAMI BERGER IS PATIENT AETNA [facility] ([facility] MEDICARE ADVANTAGE [facility] ([facility] Feb 14, 2022 [id number] [phone] DAYAMI BERGER IS PATIENT MEDICAID MEDICAID [facility] Jul 17, 2015 MEDICAI D [id number] DAYAMI BERGER IS PATIENT MEDICARE ([facility] MEDICARE (M) PART A Sep 16, 2010 PART A [id number] DAYAMI BERGER IS PATIENT MEDICARE ([facility] MEDICARE (M) PART B Sep 16, 2010 PART B [id number] [phone] DAYAMI BERGER IS PATIENT Selected Encounter This section includes the information on record at [place] for the Encounter. 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, r eye FRANCO FIGUEROA [facility] [place] [facility] Jul 06, 2024 08:27 AM SECONDARY Dry eye syndrome of bilateral lacrimal glands FRANCO FIGUEROA [facility] [place] [facility] Jul 06, 2024 08:27 AM SECONDARY Presence of intraocular lens FRANCO FIGUEROA [facility] [place] [facility] Jul 06, 2024 08:27 AM SECONDARY 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, l eye [facility] Plan of Treatment: Future Appointments (+ 6 months) and Future Tests (+/- 45 days) The Plan of Treatment section includes future care activities for the patient from all [place] treatmentfacilities. This section includes future appointments and future orders which are active, pending or scheduled. Future Appointments This section includes appointments that were scheduled to occur 6 months from the date of the Encounter, up to a maximum of 20 appointments. The data comes from all [place] treatment facilities. Appointment Date/Time Appointment Type Appointme nt Facility Name Jul 09, 2024 03:00 PM AMBULATORY - MEDICINE [facility] [place] [facility] Jul 10, 2024 03:00 PM AMBULATORY - MEDICINE [facility] Aug 27, 2024 01:00 PM AMBULATORY - MEDICINE [facility] [place] [facility] Oct 28, 2024 03:00 PM AMBULATORY - MEDICINE [facility] [place] [facility] Nov 05, 2024 03:00 PM AMBULATORY - MEDICINE [facility] Nov 10, 2024 03:00 PM AMBULATORY - MEDICINE [facility] Dec 15, 2024 03:00 PM AMBULATORY - MEDICINE [facility] Lab Results: +/- 30 days of the encounter This section includes the Chemistry and Hematology Lab Results on record with [place] for the patient. Radiology Reports and Pathology Reports are provided separately, in subsequent sections. Lab Results This section contains the Chemistry/Hematology Results that were resulted 30 days before or 30 daysafter the date of the Encounter. Date/Time Source Result Type Result - Unit Interpretation Reference Range Comment Jul 07, 2024 07:41 AM GRAY LIPID PANEL FASTING Specimen Type: SERUM No comment entered. Ordering Provider: AMBIKA KNIGHT Report Released Date/Time: Jul 09, 2023 03:20 PM Reporting Lab: [address] [address] Performing Lab: [address] [address] CHOLESTEROL 132 mg/dL TRIGLYCERIDE 110 mg/dL 0-150 LDL calculated 76 mg/dL 0-129 CHOL/HDL 3.9 HDL CHOLESTEROL 34 mg/dL L 40-60 Jul 07, 2024 07:41 AM GRAY BASIC METABOLIC PANEL (fasting) Specime n Type: SERUM No comment entered. Ordering Provider: AMBIKA KNIGHT Report Released Date/Time: Jul 09, 2023 03:20 PM Reporting Lab: [address] [address] Performing Lab: [address] [address] UREA NITROGEN 24 mg/dL 7-25 GLUCOSE 200 mg/dL H 65-100 SODIUM 137 mmol/L 135-145 POTASSIUM 4.9 mmol/L 3.5-5.0 CHLORIDE 106 mmol/L 100-110 CO2 24 meq/L 20-30 CREATININE, Serum 1.59 mg/dL H 0.50-1.40 eGFR(CKD-EPI 2020) 46 mL/min L >60 Jul 07, 2024 07:41 AM GRAY LIVER FUNCTION Specimen Type: SERUM No comment entered. Ordering Provider: AMBIKA KNIGHT Report Released Date/Time: Jul 09, 2023 03:20 PM Reporting Lab: [address] [address] Performing Lab: [address] [address] PROTEIN,TOTAL 7.5 g/dL 6.0-8.3 ALBUMIN 4.2 g/dL 3.5-5.0 ALKALINE PHOSPHATASE 68 U/L 40-150 AST 23 U/L 5-34 ALT 29 U/L BILIRUBIN, TOTAL 0.4 mg/dL 0.2-1.2 Jul 07, 2024 07:41 AM GRAY URINALYSIS Specimen Type: URINE Comment: If Glucose = >500 and Ketones are positive, please alert the Physician. Ordering Provider: AMBIKA KNIGHT Report Released Date/Time: Jul 09, 2023 03:20 PM Reporting Lab: [address] [address] Performing Lab: [address] [address] UA COLOR Light-Yellow Yellow UA APPEARANCE Clear Clear UA GLUCOSE >1000 mg/dL Negative UA KETONES NEGATIVE mg/dL Negative UA BLOOD NEGATIVE mg/dL Negative UA PROTEIN 20 mg/dL Negative UA NITRITE NEGATIVE mg/dL Negative UA BILIRUBIN NEGATIVE mg/dL Negative UA SPECIFIC GRAVITY 1.031 H 1.016-1.022 UA pH 5.5 5.0-9.0 UA UROBILINOGEN Normal mg/dL <2.0 UA LEUKOCYTE NEGATIVE Negative Jul 07, 2024 07:41 AM GRAY HEMOGLOBIN A1C PANEL Specimen Type: BLOOD Comment: [...] Jul 09, 2023 03:20 PM Reporting Lab: [address] [address] Performing Lab: [facility] [address] [address] HEMOGLOBIN A1C 6.4 H 4.0-5.6 Jul 07, 2024 07:41 AM GRAY TSH Specimen Type: SERUM No comment entered. Ordering Provider: AMBIKA KNIGHT Report Released Date/Time: Jul 09, 2023 03:20 PM Reporting Lab: [facility] [address] [address] Performing Lab: [facility] [address] [address] TSH 1.83 u[IU]/mL 0.35-5.00 Jul 07, 2024 07:41 AM GRAY CBC AND DIFF (AUTO) Specimen Type: BLOOD No comment entered. Ordering Provider: AMBIKA KNIGHT Report Released Date/Time: Jul 09, 2023 03:20 PM Reporting Lab: [facility] [address] [address] Performing Lab: [facility] [address] [address] WBC 7.74 10*3/uL 4.50-11.00 RBC 4.99 10*6/uL [...] and tobacco- related health factors from the [place] facility where the Encounter took place. Current Smoking Status This section includes the most current smoking, or tobacco-related health factor, from the AL facility where the Encounter took place. Date/Time Current Smoking Status Comment Debbie ity Jul 09, 2023 03:03 PM VA-TOBACCO FORMER USER [facility] Tobacco Use History This section includes a history of the smoking, or tobacco-related health factors, that were collected on or before the date of the Encounter. The data comes from the [place] facility where the Encounter took place. Date/Time Smoking Status/Tobacco Use Comment F acility Jul 09, 2023 03:03 PM VA-TOBACCO QUIT 15 YRS OR MORE [facility] Jul 05, 2022 01:51 PM VA-TOBACCO NEVER USED [facility] [place] [facility] May 11, 2021 01:18 PM VA-TOBACCO NEVER [facility]ED [facility] Encounter Notes: All associated encounter notes This section contains the clinical notes associated to the Encounter. Date/Time Encounter Note(s) Provider Source Jun 25, 2024 03:34 PM OPTOMETRY NOTE: LOCAL TITLE: OPTOMETRY NOTE STANDARD TITLE: OPTOMETRY NOTE DATE OF NOTE: JUN 25, 2024@15:34 ENTRY DATE: JUN 25, 2024@15:34:22 AUTHOR: ANDRIA FIGUEROA COSIGNER: URGENCY: STATUS: COMPLETED 73 yo MALE last examined Oct 2023 with hx of diabetic retinopathy with macular edema being seen every 6 weeks by [facility]. He has followup with them. Also hx of pseudophakia OU and ERM OD here today primarily to get new glasses. Would like to go back to PALs from bifocal. also notes his vision improves with blinking Active Problem Proliferative retinopathy due to ty 10/22/2022 DELMER STALLINGS Peripheral neuropathy due to type 2 10/04/2022 DELMER STALLINGS Diabetes mellitus type 2 E11.9 10/03/2022 DELMER STALLINGS Chronic kidney disease stage 3 due 10/03/2022 DELMER STALLINGS Obesity E66.9 10/03/2022 DELMER STALLINGS Erectile dysfunction N52.9 07/13/2022 DELMER STALLINGS Cerebellar stroke syndrome G46.4 05/30/2020 AMBIKA KNIGHT Osteoarthritis M16.9 10/16/2018 AMBIKA KNIGHT Computed tomography result abnormal 02/09/2018 AMBIKA KNIGHT Low back pain M54.5 08/06/2019 AMBIKA KNIGHT Allergy to peanuts 995.3 05/10/2014 AMBIKA KNIGHT UTI 599.9 01/28/2014 LEÓN WINTERS Claudication (SNOMED CT 124021432) 06/08/2013 AMBIKA KNIGHT Elevated Prostate Specific antigen 02/17/2013 AMBIKA KNIGHT Low Back Pain * (ICD-9-CM 724.2) 72 05/15/2012 AMBIKA KNIGHT Hypertrophy (Benign) of Prostate wi 05/15/2012 AMBIKA KNIGHT Impotence of organic origin (ICD-9- 09/19/2011 AMBIKA KNIGHT Colorectal Cancer Screening Results 05/30/2015 AMBIKA KNIGHT Simple upper Gastrointestinal Endos 05/23/2011 AMBIKA KNIGHT Postsurgical Percutaneous Translumi 07/09/2013 AMBIKA KNIGHT Postsurgical Status of Cataract Ext 03/02/2011 AMBIKA KNIGHT MRSA SKIN INFECTION 799.9, Onset 08 03/02/2011 GÉNESIS NELSON Cocaine abuse, continuous use 305.6 03/02/2011 AMBIKA KNIGHT GERD * (ICD-9-CM 530.81) 530.81 03/02/2011 AMBIKA KNIGHT Corneal Abrasion (ICD-9-CM 918.1) 9 12/12/2007 DOLLY GERMAN OD Hypertension (SNOMED CT 22483131) I 12/10/2018 DELMER STALLINGS Onychomycosis * (ICD-9-CM 110.1) 11 03/02/2011 AMBIKA KNIGHT Cataract, PSC/Post Subcapsular 366. 05/12/2007 DOLLY GERMAN OD Cataract, Cortical (Senile) 366.15 05/12/2007 DOLLY GERMAN OD Cyst, ganglion 727.43 03/02/2011 AMBIKA KNIGHT Cervical Radiculopathy 723.4 03/02/2011 AMBIKA KNIGHT Shoulder Pain 799.9 03/02/2011 AMBIKA KNIGHT Hyperlipidemia (SNOMED CT 52721514) 05/02/2017 DELMER STALLINGS Old Myocardial Infarction 412. 03/02/2011 AMBIKA KNIGHT Depressive Disorder NOS 311. 12/05/2004 ERLIN COLLINS Active Outpatient Medications (including Supplies): Active Outpatient Medications Status 1) FLUTICASONE PROP 50MCG 120D NASAL INHL INSTILL 2 ACTIVE SPRAYS INTO EACH NOSTRIL ONCE DAILY 2) GLUCAGON 1MG/JEY INJ EMERGENCY KIT INJECT 1 INJECTION ACTIVE INTRAMUSCULARLY ONE TIME NEEDED FOR LOW BLOOD SUGAR 3) GLUCOSE SENSOR DEXCOM G7 USE 1 SENSOR DIRECTED ACTIVE EVERY 10 DAYS 4) GLUCOSE SENSOR FREESTYLE ANTOINE 2 USE 1 SENSOR ACTIVE DIRECTED EVERY 14 DAYS 5) INSULIN,ASPART(EQV-NOVLG)100UN/ ML FLXPEN INJECT 30 ACTIVE UNITS SUBCUTANEOUSLY EVERY MORNING AND INJECT 27 UNITS AT NOON AND INJECT 26 UNITS EVERY EVENING FOR DIABETES 6) INSULIN,GLARGINE-YFGN 100UNIT/ML PEN 3ML INJECT 40 ACTIVE UNITS SUBCUTANEOUSLY TWICE DAILY FOR DIABETES Active Non-VA Medications Status 1) Non-VA ALCOHOL PREP PAD 1 PAD TOPICALLY FOUR TIMES A ACTIVE DAY 2) Non-VA APIXABAN 5MG TAB 5MG BY MOUTH ONCE DAILY ACTIVE 3) Non-VA ASPIRIN 81MG EC TAB 81MG BY MOUTH DAILY ACTIVE 4) Non-VA CHOLECALCIF 25MCG (D3-1,000UNIT) TAB 25MCG BY ACTIVE MOUTH ONCE DAILY 5) Non-VA EMPAGLIFLOZIN 25MG TAB 25MG BY MOUTH ONCE ACTIVE DAILY 6) Non-VA FINASTERIDE 5MG TAB 5MG BY MOUTH ONCE DAILY ACTIVE 7) Non-VA FLUVASTATIN NA 40MG CAP 40MG BY MOUTH ONCE ACTIVE DAILY 8) Non-VA LORATADINE 10MG TAB 10MG BY MOUTH ONCE DAILY ACTIVE 9) Non-VA MAGNESIUM OXIDE TAB 400MG BY MOUTH TWICE DAILY ACTIVE 10) Non-VA METOPROLOL TARTRATE 25MG TAB 12.5MG BY MOUTH ACTIVE TWICE DAILY 11) Non-VA MIDODRINE HCL 10MG TAB 10MG BY MOUTH TWICE ACTIVE DAILY 12) Non-VA MIRABEGRON 25MG SA TAB 25MG BY MOUTH ONCE ACTIVE DAILY 13) Non-VA PANTOPRAZOLE NA 40MG EC TAB 40MG BY MOUTH ACTIVE EVERY MORNING 30 MINUTES BEFORE BREAKFAST 14) Non-VA VITAMIN B COMPLEX CAP,ORAL BY MOUTH ON SATURDAY ACTIVE 20 Total Medications allergies: GABAPENTIN, PEANUTS HEMOGLOBIN A1C TREND Collection DT Spec HGBA1c 01/31/2024 07:48 BLOOD 7.2 H 10/24/2023 09:43 BLOOD 7.1 H 04/02/2023 09:09 BLOOD 9.3 H 12/18/2022 10:14 BLOOD 9.7 H 09/25/2022 07:40 BLOOD 8.6 H VA without OD 20/30-2 OS 20/25 current Rx OD OS refraction OD +0.50-1.22o043 20/20-2 OS -0.50-0.58m713 20/20-2 cornea clear OU but TBUT reduced OS AC D and Q OU lids/lashes clear OU iris blue OU, no NVI OU conj bulbar clear OU palpebral angles gr 4 IOP OD 18 OS 18 time:3:20 pm not dilated today since he is followed closely by [facility] every 6 weeks A 1) DM with hx of diabetic macular edema OU 2) pseudophakia OU 3) tear film dysfunction(dry eyes) P 1) Advised pt to see [facility] per their recommendations. He is paying for care through his own insurance and is happy. 2) order new PALs. Pt ed on use 3) Order Refresh to use qid OU RTC here in Oct 2024 for annual comprehensive eye exam med reconciliation: All Ophthalmic medications were reconciled (x ) ( ) pt is not taking any ophthalmic medications ( ) the following ophthalmic meds were discontinued: pt deferred receiving list of medications Diabetes: Patient was educated regarding diabetes and related ocular complications including retinopathy and cataract formation as well as other related systemic complications. The importance of good blood sugar control, blood sugar testing as recommended by their PCP and the importance of timely follow up were all emphasized. Medication Reconciliation: Outpatient: Has the patient been taking medications as documented in the EMLR? YES: The patient has been taking medications as documented in the EMLR. Essential Medication List for Review used to complete this medication reconciliation. INCLUDED IN THIS LIST: Alphabetical list of active outpatient prescriptions dispensed from this VA (local) and dispensed from another AL or [facility] facility (remote) as well as inpatient orders [...] whether with a VA or non-VA provider. Medication List: JLV Link Data on this list may not be complete. Please check JLPrePayMe. Allergies/ADRs (Tool #5) FACILITY ALLERGY/ADR -------- [facility] GABAP[facility]IN [facility] NO KNOWN ALLERGIES Med. Reconciliation (Tool #1) INCLUDED IN THIS LIST: Alphabetical list of active outpatient prescriptions dispensed from this VA (local) and dispensed from another AL or [facility] facility (remote) as well as inpatient orders (local pending and active), local clinic medications, locally documented non-VA medications, and local prescriptions that have or been discontinued in the past 90 days. Non-VA Meds Last Documented On: Jan 02, 2023 NOTE The display of VA prescriptions dispensed from another AL or [facility] facility (remote) is limited to active outpatient prescription entries matched to National Drug File at the originating site and may not include some items such as investigational drugs, compounds, etc. NOT INCLUDED IN THIS LIST: Medications self-entered by the patient into personal health records (i.e. Pounce) are NOT included in this list. Non-VA medications documented outside this AL, remote inpatient orders (regardless of status) and remote clinic medications are NOT included in this list. The patient and provider must always discuss medications the patient is taking, regardless of where the medication was dispensed or obtained. Non-VA APIXABAN 5MG TAB TAKE ONE TABLET BY MOUTH ONCE DAILY Non-VA ASPIRIN 81MG EC TAB TAKE ONE TABLET BY MOUTH DAILY OUTPT CARBOXYMETHYLCELLULOSE NA 0.5% OPH SOLN (Status = Pending) INSTILL ONE DROP INTO EACH EYE FOUR TIMES A DAY Login Date: 06/25/24 Qty/Days Supply: Refills Ordered: 11 Non-VA CHOLECALCIF 25MCG (D3-1,000UNIT) TAB TAKE ONE TABLET BY MOUTH ONCE DAILY Non-VA EMPAGLIFLOZIN 25MG TAB TAKE ONE TABLET BY MOUTH ONCE DAILY Non-VA FINASTERIDE 5MG TAB TAKE ONE TABLET BY MOUTH ONCE DAILY OUTPT FLUTICASONE PROP 50MCG 120D NASAL INHL (Status = Active) INSTILL 2 SPRAYS INTO EACH NOSTRIL ONCE DAILY Rx# [id number] Last Released: 07/09/23 Qty/Days Supply: 10/15 Rx Expiration Date: 07/09/24 Refills Remainin Indication: FOR NASAL IRRITATION/INFLAMMATION Non-VA FLUVASTATIN NA 40MG CAP TAKE 1 CAPSULE BY MOUTH ONCE DAILY OUTPT GLUCAGON 1MG/JEY INJ EMERGENCY KIT (Status = Active) INJECT 1 INJECTION INTRAMUSCULARLY ONE TIME NEEDED FOR LOW BLOOD SUGAR Rx# [id number] Last Released: 06/19/24 Qty/Days Supply: 10/15 Rx Expiration Date: 07/18/24 Refills Remainin Indication: FOR LOW BLOOD SUGAR OUTPT INSULIN,ASPART(EQV-NOVLG)100UN/ ML FLXPEN (Status = Active) INJECT 30 UNITS SUBCUTANEOUSLY EVERY MORNING AND INJECT 27 UNITS AT NOON AND INJECT 26 UNITS EVERY EVENING FOR DIABETES Rx# [id number] Last Released: 05/06/24 Qty/ Supply: Rx Expiration Date: 02/06/25 Refills Remainin Indication: FOR DIABETES OUTPT INSULIN,GLARGINE-YFGN 100UNIT/ML PEN 3ML (Status = Active) INJECT 40 UNITS SUBCUTANEOUSLY TWICE DAILY FOR DIABETES Rx# [id number] Last Released: 05/06/24 Qty/Days Supply: Rx Expiration Date: 02/06/25 Refills [...] OUTPT GLUCOSE SENSOR DEXCOM G7 (Status = Active) USE 1 SENSOR DIRECTED EVERY 10 DAYS Rx# [id number] Last Released: 04/27/24 Qty/Days Supply: Rx Expiration Date: 02/07/25 Refills Remainin OUTPT GLUCOSE SENSOR FREESTYLE ANTOINE 2 (Status = Active) USE 1 SENSOR DIRECTED EVERY 14 DAYS Rx# [id number] Last Released: 02/27/24 Qty/Days Supply: 11/13 Rx Expiration Date: 12/18/24 Refills Remainin PHARMACY TERMS AND POSSIBLE PATIENT ACTIONS INPT = AL inpatient order IV = VA intravenous medication OUTPT = AL outpatient prescription PHARMACY POSSIBLE PATIENT TERMS EXPLANATION ACTIONS -------- - ACTIVE A prescription that can be If you have refills, filled at the local AL pharmacy. you may request a refill of this prescription from your AL pharmacy. CLINIC A medication you received during If you have questions a visit to a AL clinic or about this medication emergency department. contact your AL healthcare team. DISCONTINUED A prescription your provider has Contact your VA stopped. It is no longer healthcare team if you available to be sent to you or need more of this picked up at the AL pharmacy medication. window. A prescription which is too old Contact your VA to fill. This does not refer to healthcare team if you the expiration date of the need more of this medication in the container. medication. NON-VA A medication that came from If this medication someplace other than a VA information is pharmacy. This may be a incorrect or out of prescription from either the VA date, please tell your or non VA providers that was VA healthcare team. filled outside the VA. Or, it may be an [id number] (OTC), herbal, dietary supplements or sample medication. ON HOLD An active prescription that will Contact your VA not be filled until pharmacy pharmacy when you need resolves the issue. more of this medication. PARKED An active prescription that will Contact your VA not be filled until the patient pharmacy when you need requests it. this medication. PENDING This prescription order has been If you have been sent to the pharmacy for review instructed to start and is not ready yet. this medication now, contact your VA pharmacy. SUSPENDED An active prescription that is Contact your AL not scheduled to be filled yet. pharmacy if you need You should receive it before this medication now. you run out. ==== /jamal/ Andria Figueroa OD Fee Basis Telephone Service Adviser Signed: 06/25/2024 15:42 ANDRIA FIGUEROA [facility]
--- OUTSIDE RECORDS SUMMARY | 2024-10-12 19:46 | XMS_ITS ---
Author Organization [facility] Address [address] [facility] [place] [address] Care Team Providers Care Level Vial Curvature Gauger Name Role Phone Manan Reinoso MD Primary Care Provider UnavailAndrzej Ann Unavailable [phone] Allergies No Known Allergies REASON FOR VISIT At Risk Footcare, Toe Irritation Medications Medication SIG (Take, Route, Frequency, Duration) Notes Start Date End Date Status Vicodin Active ASA Active Rosuvastatin Calcium 40 MG 1 tablet Oral ly Once a day for 30 day(s) Active Tadalafil 5 MG 1 tablet as needed O rally Once a day for 30 day(s) Active Extra Depth Orthopedic Shoes (1 Pair) with Customized Heat Molded Multidensity Innersoles (3 Pair) as directed Dx: IDDM/Polyneuropathy (E10.42), Hammertoe Foot Deformity (M20.41,M20.42), Preulcerative Skin Lesion(s) (L85.1) 07/28/2024 Active Lantus Active Magnesium 400 MG as directed Orally Active Metoprolol Tartrate Active Midodrine HCl Active Pantoprazole Sodium 40 MG 1 tablet Orall y Once a day for 30 day(s) Active Eliquis 5 MG 1 tablet Orally Twic e a day for 30 day(s) Active Finasteride 5 MG 1 tablet Orally Once a day for 30 day(s) Active Jardiance 25 MG 1 tablet Orally Once a day Active HumaLOG Active Social History Tobacco Use: Social History Observation Description Date Details (start date - stop date) Never Smoker NA - NA Tobacco Use/Smoking Question Answer Notes Are you a: nonsmoker Additional Findings: Tobacco Non-User Current no n-smoker Tobacco use other than smoking: Question Answer Notes Are you an other tobacco user? No Problems Problem Type SNOMED Code ICD Code Onset Dates Problem Status W/U Status Risk Notes Problem Polyneuropathy due to diabetes mellitus type I (008818521) Type 1 diabetes mellitus with diabetic polyneuropathy (E10.42) Active confirmed Problem Acquired hammer toe of right foot (9087732212694723 ) Other hammer toe(s) (acquired), right foot (M20.41) Active confirmed Problem Acquired hammer toe of left foot (3714491219641250 ) Other hammer toe(s) (acquired), left foot (M20.42) Active confirmed Vital Signs Height 5ft 8in in 07/28/2024 Weight 235 lbs 07/28/2024 BMI 35.73 kg/m2 07/28/2024 Blood pressure systolic 120 mm Hg 07/28/20 24 Blood pressure diastolic 80 mm Hg 024 Procedures Procedure Date Ordered Date Performed Result Body Sit e 97027-ZTAQDFV NAIL, 1-5 07/28/2024 N/A 99370-RTLA SKIN LESIONS, OVER 4 07/28/2024 N/A G4646-YDFPRHUX DYSTROPHIC NAILS ANY # 07/28/2024 N/A Encounters Encounter Location Date Provider Diagnosis [facility] [address] [address] 07/28/2024 Andrzej Camargo Type 1 diabetes mellitus with diabetic polyneuropathy E10.42 ; Tinea unguium B35.1 ; Other hammer toe(s) (acquired), right foot M20.41 and Other hammer toe(s) (acquired), left foot M20.42 Assessments Encounter Date Diagnosis (ICD Code) Assessment Notes Treatment Notes Treatment Clinical Notes Section Notes 07/28/2024 Type 1 diabetes mellitus with diabetic polyneuropathy (ICD-10 - E10.42) 07/28/2024 Tinea unguium (ICD-10 - B35.1) 07/28/2024 Other hammer toe(s) (acquired), right foot (ICD-10 - M20.41) Patient Educated with: DIABETIC FOOT CARE INSTRUCTIONS. pdf (DIABETIC FOOT CARE INSTRUCTIONS. pdf) 07/28/2024 Other hammer toe(s) (acquired), left foot (ICD-10 - M20.42) Plan Of Treatment Medication Medication Name Sig Start Date Stop Date Notes Extra Depth Orthopedic Shoes (1 Pair) with Customized Heat Molded Multidensity Innersoles (3 Pair) as directed Dx: IDDM/Polyneuropathy (E10.42), Hammertoe Foot Deformity (M20.41,M20.42), Preulcerative Skin Lesion(s) (L85.1) 07/28/2024 Treatment Notes Assessment Notes Other hammer toe(s) (acquired), right fo ot Patient Educated with: DIABETIC FOOT CARE INSTRUCTIONS.pdf (DIABETIC FOOT CARE INSTRUCTIONS.pdf) Pending Test Test Name Order Date 37830-NSLJOIG NAIL, 1-5 07/28/2024 33093-QPRG SKIN LESIONS, OVER 4 07/28/20 24 V8421-XYTMYAXG DYSTROPHIC NAILS ANY # Next Appt Details Follow Up: prn, Reason: Provider Name:Andrzej Camargo , 11/03/2024 03:00:00 PM, [address] [place] [address], [phone], Procedure Notes * Category Sub-Category Detail Notes Keratoma Treatment Parring or Cutting o f Benign Hyperkeratotic Lesion(s) (-57) More than 4 Lesions - Due to the at risk nature of the patients medical condition as documented in the exam findings, performance of this keratoderma treatment is medically necessary as its management by an unskilled/untrained nonprofessional would put this patients foot and overall health at risk. Therefore, the benign hyperkeratotic lesions, ( 6) in total, locations as stated and described in the exam ( Medial, IPJ, TA, Medial, IPJ, T5, SUB MTH (s), 1, B/L, Plantar Heel(s), B/L), were pared, and/or cut utilizing a sterile 15 blade, tissue nippers, and/or power dremel instrumentation by the physician of record - 44025 Debride Nails 1-5 Procedure: Due to the cli nical pathology outlined in the exam findings, performance of this nail treatment is medically necessary as its management by an unskilled/untrained nonprofessional would put this patients foot and overall health at risk. Therefore, debridement to affected nail(s), as described in exam ( TA, T5), was performed exclusively by the physician of record to reduce/remove overall nail length, girth, thickness, subungual debris, and necrotic tissue, by manual and/or electrical means through the use of a nail nipper and/or dremel stylegrinder, to a more viable healthy nail plate or bed tissue 5 nails or fewer in number. Silver nitrate was used for any petechial bleeding as necessary. Definitive antifungal treatment options, both pharmaceutical and surgical, have been reviewed and discussed with the patient. The patient solely prefers the use of intermittent/as needed professional debridement services for their nail condition and understands that additional periodic treatments may be required as necessary to maintain effective symptomatic relief - 75618 Nail Reduction Nail Reduction (-27) Trimming o f all dystrophic nails - Due to the at risk nature of the patients medical condition as documented in the exam findings, performance of this nail treatment is medically necessary as its management by an unskilled/untrained nonprofessional would put this patients foot and overall health at risk. Therefore, the dystrophic nails, in locations as stated and described in the exam ( T1, T2, T3, T4, T6, T7, T8, T9), were debrided by the phisician of record to reduce/remove overall nail length and girth, by manual and electrical means with use of a nail nipper and/or dremel, to more viable healthy nail plate or bed tissue - G0127 Progress Notes * SAMMYKirbyDOB:1950 ( 74 yo M)Acc No.[id number]:07/28/2024 Progress Note Patient:?Kirby CHRISTIANSON Provider:?Andrzej Camargo DPM :1950???Age:73 Y???Sex:Male Jason e:07/28/2024 Address: [address], [id number] Pcp:Manan Reinoso MD Subjective: * Chief Complaints: * ???At Risk FootcareToe Irrit ation * HPI: ???At Risk footcare:?Pt States Last PCP Visit:?Date?06/19/2024 ???Toe pain:?Location:?B/L feet.?Duration:?several years.?Course:?worse.?Aggravated by:?shoes, any pressure.?Treatments:?change in shoes.? * ROS:?General/Constitutional:?Nausea?denies.?Vomiting?denies.?Hunger Thirst?denies.?Loss appetite?denies.?Chills?denies.?Fatigue?denies.?Fever?denies.?Night Sweats?denies.?Unexplained weight loss?denies.?Unexplained weight gain?denies.?HEENTM:?Dentures?denies.?Dizziness?denies.?Glasses/contacts?denies.?Retinopathy?den ies.?Blurred/double vision?denies.?TMJ?denies.?Discharge/drainage?denies.?Implants?denies.?Sore throat?denies.?Dental implants?denies.?Hard of hearing ?denies.?Difficulty chewing/swallowing/speaking?denies.?Nose bleeds?denies.?Sore mouth?denies.?Respiratory:?On O xygen?denies.?Pneumonia/pleurisy?denies.?Bronchitis?denies.?Emphysema?denies.?Co ughing?denies.?Cough blood?denies.?Shortness of breath?denies.?Wheezing?denies.?Cardiovascular:?Pacemaker?denies.?MVP?denies.?WPW?denies.?CHF?denies.?Heart attack?denies.?Septal defect?denies.?Rapid beat?denies.?Chest pain ?denies.?Atrial Fib.?denies.?Murmur/Palpitations?denies.?Gastrointestinal:?Hemorrhoids?denies.?Stomach/Abdominal pain?denies.?Dark blood stool?denies.?Irritable bowel ?denies.?Constipation?denies.?Diarrhea?denies.?Hematology:?Swelling?denies.?Clots?denies.?Varicose Veins?denies.?Bruising?admits, on anticoagulants.?Bleeding problem?admits, on anticoagulants.?Genitourinary:?Blood urine?denies.?Frequent/Painfu/urination/bladder control?denies.?Kidney stones?denies.?Infection (UTI)?denies.?Nephropathy?denies.?sex trans dis (STD)?denies.?Prostate?denies.?Musculoskeletal:?Hammertoes?admits.?Bunions?denies.?Back Pain?admits.?Muscle Cramps/ Resting?denies.?Muscle cramps / walking?denies.?Generalized aches and pains?denies.?Weakness?denies.?Integ.:?Ray?denies.?Scars?denies.?Corns/calluses?admits.?Ingrown nails?admits.?Painful nails?denies.?Open Sores?admits.?Rashes?denies.?Neurologic:?Difficulty sleeping?denies.?Brain disorder?denies.?Numbness?denies.?Balance t rouble?admits.?Confusion?denies.?Fainting/blackouts?denies.?Tingling?denies.?Brian mors?denies.? * Medical History:? * Surgical History:?back surge ry- Spine L5 03/06cataract surgery appendectomy right leg infection- [facility] 03/2024 * Hospitalization/Major Diagno stic Procedure:?Denies Past Hospitalization * Family History:?Mother: dece ased, Stroke, diagnosed with Unspecified heart disease.?Father: , Stroke, diagnosed with Diabetic - NIDDM, Unspecified heart disease.?Siblings: Sister, diagnosed with Diabetic - NIDDM.? * Social History:?Tobacco Use:?Tobacco Use/Smoking?Are you a:?nonsmoker ?Additional Findings: Tobacco Non-User?Current non-smoker ?Tobacco use other than smoking?Are you an other tobacco user??No * Medications:?TakingVicodin A SA Eliquis 5 MG Tablet 1 tablet Orally Twice a day Finasteride 5 MG Tablet 1 tablet Orally Once a day Jardiance 25 MG Tablet 1 tablet Orally Once a day HumaLOG Lantus Magnesium 400 MG Tablet as directed Orally Metoprolol Tartrate Midodrine HCl Pantoprazole Sodium 40 MG Tablet Delayed Release 1 tablet Orally Once a day Rosuvastatin Calcium 40 MG Tablet 1 tablet Orally Once a day Tadalafil 5 MG Tablet 1 tablet as needed Orally Once a day Medication List reviewed and reconciled with the patientTaking Vicodin Taking ASA Taking Eliquis 5 MG Tablet 1 tablet Orally Twice a day Taking Finasteride 5 MG Tablet 1 tablet Orally Once a day Taking Jardiance 25 MG Tablet 1 tablet Orally Once a day Taking HumaLOG Taking Lantus Taking Magnesium 400 MG Tablet as directed Orally Taking Metoprolol Tartrate Taking Midodrine HCl Taking Pantoprazole Sodium 40 MG Tablet Delayed Release 1 tablet Orally Once a day Taking Rosuvastatin Calcium 40 MG Tablet 1 tablet Orally Once a day Taking Tadalafil 5 MG Tablet 1 tablet as needed Orally Once a day Medication List reviewed and reconciled with the patient * Allergies:?N.K.D.A.yes[Aller nara Verified] Objective: * Vitals:?Ht:5ft 8in, Wt:235, BMI:35.73, Shoe size:9, BP:120/80mm Hg, BS:145, Ht- cm: 172.72 cm, Wt-k.59 kg. * ???Past Orders: ???Lab:HEMOGLOBIN A1C (GLYCO HEMOGLOBIN) (Order Date - 09/17/2022) (Collection Date & Time - 09/17/2022) ? Value Reference Range ?HEMOGLOBIN A1C (HH) 8.8 * Examination: ???Neurological: ?SENSORY:? Neurological exam demonstrates, reduced light touch sensation, reduced sharp/dull discrimination , reduced vibration sensation, in a stocking fashion, B/L, 5.07 monofilament test performed at plantar aspects of 5 varied sites per foot shows sensation, reduced, B/L.?Nails: ?NAILS are:?Elongated, overgrown, dystrophic, lytic, greater than 3mm thick, discolored and friable with crumbly malodorous subungual debris, TA, T5, all other nails not described with characteristics as possessing mycosis are elongated, overgrown, and dystrophic ( T1, T2, T3, T4, T6, T7, T8, T9?).?Dermatologic: ?SKIN FINDINGS:?Skin exam reveals Keratotic lesion(s) located at, Medial, IPJ, TA, Medial, IPJ, T5, SUB MTH (s), 1, B/L, Plantar Heel(s), B/L.?Orthopedic: ?MUSCLE STRENGTH:?5/5 all groups in a symmetrical fashion, B/L.?GAIT ABNORMALITY:?apropulsive, unstable/unsteady relating occasional difficulty with balance, walker-assisted.?FOOT MORPHOLOGY:?(-) Charcot collapse/destruction noted at MTJ.?DIGITAL DEFORMITIES:?Digital contracture, PIPJ, 2-5 B/L, incompl-reducible to push-up test, no over, nor underlapping,?there is?evidence of shoe producing skin irritation.?FOOTWEAR:?worn, non-supportive, shoe gear properties exacerbate patient's foot/toe deformity.?Vascular: ?DP PULSES (B):?0/4, B/L.?PT PULSES (B):?0/4, B/L.?CAPILLARY FILL TIME:?delayed, all digits, B/L.?TROPHIC CONDITION-TEXTURE/ELASTICITY/TURGOR/HAIR GROWTH (B):?decreased, with sparse to absent hair growth, B/L.?TEMPERTURE GRADIENT (C):?decreased, cool to cool, proximal to distal, B/L.?PIGMENTATION:?rubrous, B/L.?EDEMA (C):?2/4, pitting, without aching pain, Leg(s), Ankle(s), B/L.?Ophthalmology Referral: ?DIABETES EYE EXAM?General Examination: ?GENERAL APPEARANCE:?Reveals a pleasant, alert, well nourished, well- developed, well hydrated individual, who demonstrates proper attention to hygiene/body habitus, and is in no acute distress, Pt serves as own historian for office visit today, Pt accompanied by, , and/who is physically present in exam room at time of visit.?ORIENTED:?person, place, and time.?FOOT EXAM:?Footwear Evaluation? Assessment: * Assessment: 1.?Tinea unguium - B35.1???2 .?Type 1 diabetes mellitus with diabetic polyneuropathy - E10.42 (Primary)???3.?Other hammer toe(s) (acquired), right foot - M20.41???Specify :Chronic problem, Worse (4),Rx Management (4)???4.?Other hammer toe(s) (acquired), left foot - M20.42???Specify :Chronic problem, Worse (4),Rx Management (4)??? Plan: * Treatment: 2.?Other hammer toe(s) (acqu ired), right foot? Start Extra Depth Orthopedic Shoes (1 Pair) with Customized Heat Molded Multidensity Innersoles (3 Pair), as directed, Dx: IDDM/Polyneuropathy (E10.42), Hammertoe Foot Deformity (M20.41,M20.42), Preulcerative Skin Lesion(s) (L85.1), 1, Refills 0.?? Notes: Patient Educated with: DIABETIC FOOT CARE INSTRUCTIONS.pdf (DIABETIC FOOT CARE INSTRUCTIONS.pdf)?? * Procedures:?Debride Nails 1-5:?Procedure:?Due to the clinical pathology outlined in the exam findings, performance of this nail treatment is medically necessary as its management by an unskilled/untrained nonprofessional would put this patients foot and overall health at risk. Therefore, debridement to affected nail(s), as described in exam (?TA,?T5), was performed exclusively by the physician of record to reduce/remove overall nail length, girth, thickness, subungual debris, and necrotic tissue, by manual and/or electrical means through the use of a nail nipper and/or dremel stylegrinder, to a more viable healthy nail plate or bed tissue 5 nails or fewer in number. Silver nitrate was used for any petechial bleeding as necessary. Definitive antifungal treatment options, both pharmaceutical and surgical, have been reviewed and discussed with the patient. The patient solely prefers the use of intermittent/as needed professional debridement services for their nail condition and understands that additional periodic treatments may be required as necessary to maintain effective symptomatic relief - 33391.?Keratoma Treatment:?Parring or Cutting of Benign Hyperkeratotic Lesion(s)?(-57) More than 4 Lesions - Due to the at risk nature of the patients medical condition as documented in the exam findings, performance of this keratoderma treatment is medically necessary as its management by an unskilled/untrained nonprofessional would put this patients foot and overall health at risk. Therefore, the benign hyperkeratotic lesions, ( 6) in total, locations as stated and described in the exam (?Medial,?IPJ,?TA,?Medial,?IPJ,?T5,?SUB MTH (s),?1,?B/L,?Plantar Heel(s),?B/L), were pared, and/or cut utilizing a sterile 15 blade, tissue nippers, and/or power dremel instrumentation by the physician of record - 22589.?Nail Reduction:?Nail Reduction?(-27) Trimming of all dystrophic nails - Due to the at risk nature of the patients medical condition as documented in the exam findings, performance of this nail treatment is medically necessary as its management by an unskilled/untrained nonprofessional would put this patients foot and overall health at risk. Therefore, the dystrophic nails, in locations as stated and described in the exam (??T1, T2, T3, T4, T6, T7, T8, T9), were debrided by the phisician of record to reduce/remove overall nail length and girth, by manual and electrical means with use of a nail nipper and/or dremel, to more viable healthy nail plate or bed tissue - G0127.? * Procedure Codes:?30854 TRIM SKIN LESIONS, OVER 4, Modifiers: XS 23213 DEBRIDE NAIL, 1-5, Modifiers: XS G0127 TRIMMING DYSTROPHIC NAILS ANY #, Modifiers: XS * Preventive Medicine:? ??Counseling:?Discussion:?-14: Office or other outpatient visit for the evaluation and management of an established patient, which required a medically appropriate history and/or examination and MODERATE level of DECISION MAKING for: 1 OR MORE CHRONIC PROBLEM(S) THATS WORSENING, 2 STABLE CHRONIC PROBLEMS, A NEWLY DIAGNOSED PROBLEM WITH UNCERTAIN PROGNOSIS, AN ACUTE COMPLICATED INJURY WITH MULTIPLE TREATMENT OPTIONS, OR AN ACUTE PROBLEM WITH ACCOMPANYING SYSTEMIC SYMPTOMS, THAT POSE(S) A MODERATE RISK OF MORBIDITY. THIS CONDITION MAY ALSO INCLUDE RX DRUG MANAGEMENT, OR A DECISON FOR MINOR SURGERY. The visit on the day of the encounter encompassed interpreting the data and educating the patient as to the nature of their condition, treatment options available according to their individual PMH, meds, allergies, and overall health/living conditions, as well as any potential risks or complications that may occur from a failure to adhere to, and participate in, the recommended course of therapy. The discussion included a complete verbal, and/or written explanation of the examination results, any x-rays taken, the proposed diagnosis, and outline of the treatment plan. A schedule for future care needs was also explained. The patient verbalized an understanding of the instructions at this time and agreed to be an active participant in their treatment. If the patient should think of any questions or concerns after the visit, I have encouraged the patient to call the office.?Digital Surgery:?Digital surgery was discussed with the patient, We elected to try conservative treatment at the present time, due to the patients medical history and increased asssociated post-operative risks.?Digital Treatment:?HT- I explained to the patient the possible etiologies of Hammertoes, including genetics/foot type/shoegear/activity level/exercise routine and the risks/benefits of all the different treatment options for their pain including: No treatment at all, Rest, Ice, New/supportive/wider/deeper Shoegear, Digital Padding/Strapping/Taping/Bracing/Gel protective sleeves, Foot/Ankle AFO Bracing, Stretching exercises, Deep Tissue Massage, Arch support/shoe inserts with splay metatarsal padding, and Custom orthoses. I insisted that any digital devices be removed daily and not worn overnight for safety. The patient is to carefully examine the toes daily for any skin irritation while using any splinting or padding device. The advantages and disadvantages of each option were discussed and the patients questions re: shoegear, padding, custom vs prefabricated inserts, activity level, and consistency in home treatment regimens for optimal success were answered to their verbally confirmed satisfaction.?Shoe Gear Counseling:?SHOE Rx - The patient was counseled in great detail on their muscoloskeletal foot and toe deformities which coincided with the dermatological presentations visualized on exam. We discussed how their deformities put the integrity of their feet at risk for potential pedal complications which makes the accomidative diabetic shoes and cutomizable inserts medically necessary. We discussed the different shoe and insert treatment types and options, as well as the important advantages for adhering to regularly wearing these accomidative devices daily. The patient was made aware of the fact that a failure to abide by these recommedations may be deleterious to their foot health as they are able to prevent many pedal complications such as skin irritation, skin ulceration, infection, and even loss of toe/foot/leg/or life. Time was also spent with the patient dispensing and discussing proper diabetic footcare techniques including daily skin moisturization, daily foot inspection for any interruption in skin integrity including open lesions, or sign of infection such as redness/malodor/drainage/swelling. Also discussed and recommended were procedures regarding daily shoe inspection for the presence of internal foreign bodies as well as any visualized irregular shoe or insert wear. Patient questions re: shoes, inserts, and self foot inspections were answered to their satisfaction as the patient verbally confirmed a full understanding of the above information. A Rx for Extra Depth Orthopedic Shoes with 3 pair of custom heat-molded inserts was dispensed.? ??Screening/Special Tests:?Fall Risk?Assessment:?Performed ?Screening:?No falls in the past year ?FALLS: Screening for Future Fall Risk?Have you had any falls with injury in the past year??No * Follow Up:?prn * Images: * Sign off status: Completed true * Provider:?Andrzej Camargo DPM Date:?2023 Generated for Zachary wells/Concepcion/Jasmeet on:?10/12/2024 07:45 PM EST History and Physical Notes * HPI (History of Present Illness) Category Sub-Category Detail Notes Category Not es Toe pain Location: B/L feet Duration: several years Course: worse Aggravated by: shoes, any pressure Treatments: change in shoes At Risk footcare Pt States Last PCP Visit: Date: 4 Examination Category Sub-Category Detail Notes Category Not es Neurological SENSORY: Neurological exa m demonstrates, reduced light touch sensation, reduced sharp/dull discrimination , reduced vibration sensation, in a stocking fashion, B/L, 5.07 monofilament test performed at plantar aspects of 5 varied sites per foot shows sensation, reduced, B/L Dermatologic SKIN FINDINGS: Skin exam reveal s Keratotic lesion(s) located at, Medial, IPJ, TA, Medial, IPJ, T5, SUB MTH (s), 1, B/L, Plantar Heel(s), B/L Orthopedic GAIT ABNORMALITY: apropulsive, u nstable/unsteady relating occasional difficulty with balance, walker-assisted FOOT MORPHOLOGY: (-) Charcot collapse /destruction noted at MTJ FOOTWEAR: worn, non-supportive , shoe gear properties exacerbate patient's foot/toe deformity DIGITAL DEFORMITIES: Digital contracture , PIPJ, 2-5 B/L, incompl-reducible to push-up test, no over, nor underlapping, there is evidence of shoe producing skin irritation MUSCLE STRENGTH: 5/5 all groups in a symmetrical fashion, B/L General Examination GENERAL APPEARANCE: Reveals a pleasant, alert, well nourished, well-developed, well hydrated individual, who demonstrates proper attention to hygiene/body habitus, and is in no acute distress, Pt serves as own historian for office visit today, Pt accompanied by, , and/who is physically present in exam room at time of visit FOOT EXAM: Lower Extremity Neurological Exa m performed:: Yes Visual exam of foot performed:: Yes Date: 07/28/2024 ORIENTED: person, place, and t claudia Footwear Evaluation Footwear Evaluation performe d:: Yes Ophthalmology Referral DIABETES EYE EXAM Procedure Perform ed:: Yes ?Date of Exam Performed: 07/03/2024 Diabetic Retinopathy Screening:: Yes Retinal Screening Performed:: Yes Findings of Diabetic Eye Exam:: no retin opathy Vascular DP PULSES (B): 0/4, B/L PT PULSES (B): 0/4, B/L CAPILLARY FILL TIME: delayed, all digits , B/L TEMPERTURE GRADIENT (C): decreased, cool to cool, proximal to distal, B/L TROPHIC CONDITION-TEXTURE/ELASTICITY/TURGOR/HAIR GROWTH (B): decreased, with sparse to absent hair gr owth, B/L EDEMA (C): 2/4, pitting, withou t aching pain, Leg(s), Ankle(s), B/L PIGMENTATION: rubrous, B/L Nails NAILS are: Elongated, overg rown, dystrophic, lytic, greater than 3mm thick, discolored and friable with crumbly malodorous subungual debris, TA, T5, all other nails not described with characteristics as possessing mycosis are elongated, overgrown, and dystrophic ( T1, T2, T3, T4, T6, T7, T8, T9 )
--- OUTSIDE RECORDS SUMMARY | 2024-10-12 19:46 | XMS_ITS | Encounter Summary ---
Author Name [facility] Address [address] [place] [address] Care Team Providers Care Associate Broker Name Role Phone SHAW MOSCOSO Primary Care [...] MEDIC ARE D Sep 16, 2016 PDPIND [id number] [phone] DAYAMI CHRISTIANSON IS PATIENT AETNA [facility] ([facility]) MEDICARE ADVANTAGE [facility] ([facility]) Feb 14, 2022 [id number] [phone] DAYAMI CHRISTIANSON IS PATIENT MEDICAID MEDICAID [facility] Jul 17, 2015 MEDICAI D [id number] DAYAMI CHRISTIANSON IS PATIENT MEDICARE ([facility]) MEDICARE (M) PART A Sep 16, 2010 PART A [id number] [phone] DAYAMI CHRISTIANSON IS PATIENT MEDICARE ([facility]) MEDICARE (M) PART B Sep 16, 2010 PART B [id number] DAYAMI CHRISTIANSON IS PATIENT Selected Encounter This section includes the information on record at [place] for the Encounter. Date/Time Encounter Type Encounter Description Reason Provider Source February 06, 2024 03:49 PM CONT [facility] ANALYSIS I&R ENDOCRINOLOGY ICD-10-CM E11.9 Type 2 diabetes mellitus without complications DELMER STALLINGS [facility] Encounter Template Text not used by [place] Assessments - Encounter Diagnoses This section includes the primary and secondary diagnoses documented for the Encounter. Date/Time Primary/Secondary Diagnosis Diagnosis Name Provider Source February 06, 2024 03:54 PM PRIMARY Type 2 diabetes mellitus without complications [facility] Plan of Treatment: Future Appointments (+ 6 months) and Future Tests (+/- 45 days) The Plan of Treatment section includes future care activities for the patient from all [place] treatmentfacilities. This section includes future appointments and future orders which are active, pending or scheduled. Future Appointments This section includes appointments that were scheduled to occur 6 months from the date of the Encounter, up to a maximum of 20 appointments. The data comes from all [place] treatment facilities. Appointment Date/Time Appointment Type Appointme nt Facility Name Mar 17, 2024 04:00 PM AMBULATORY - MEDICINE [facility] Apr 02, 2024 03:00 PM AMBULATORY - [facility]ICINE [facility] Apr 16, 2024 03:00 PM [facility]ULATORY - MEDICINE [facility] May 12, 2024 03:30 PM [facility]ICINE [facility] May 14, 2024 08:00 AM [facility]BULATORY - MEDICINE [facility] May 20, 2024 03:00 PM [facility]BULATORY - MEDICINE [facility] Jun 25, 2024 03:00 PM [facility]ULAT[facility] - MEDICINE [facility] Jul 09, 2024 03:00 PM AM[facility]ULATORY - MEDICINE [facility] Jul 10, 2024 03:00 PM AM[facility]ULATORY - MEDICINE [facility] Lab Results: +/- 30 days of the encounter This section includes the Chemistry and Hematology Lab Results on record with [place] for the patient. Radiology Reports and Pathology Reports are provided separately, in subsequent sections. Lab Results This section contains the Chemistry/Hematology Results that were resulted 30 days before or 30 daysafter the date of the Encounter. Date/Time Source Result Type Result - Unit Interpretation Reference Range Comment January 31, 2024 07:48 AM [facility] HEMOGLOBIN A1C PANEL Specimen Type: BLOOD Comment: Values obtained from A1C measurements can vary. For atypical A1C assays, a reported value of 7.0 could actually be between 6.72 and 7.28 if measured by a reference method. A reported value of 9.0 could actually be between 8.73 and 9.27. Ref: http://www.ngs p.org/CAPdata. asp Ordering Provider: DELMER STALLINGS Report Released Date/Time: Nov 04, 2023 09:26 AM Reporting Lab: [address] [id number] Performing Lab: [address] [id number] HEMOGLOBIN A1C 7.2 H 4.0-5.6 January 31, 2024 07:48 AM [facility] BASIC METABOLIC PANEL (non-fasting) Specimen Type: SERUM No comment entered. Ordering Provider: DELMER STALLINGS Report Released Date/Time: Nov 04, 2023 09:26 AM Reporting Lab: [address] [id number] Performing Lab: [address] [id number] UREA NITROGEN 23 mg/dL 7-25 GLUCOSE 233 mg/dL H 65-100 SODIUM 138 mmol/L 135-145 POTASSIUM 4.6 mmol/L 3.5-5.0 CHLORIDE 106 mmol/L 100-110 CO2 25 meq/L 20-30 CREATININE, Serum 1.75 mg/dL H 0.50-1.40 eGFR(CKD-EPI 2020) 41 mL/min L >60 Vital Signs: All taken on the encounter date This section contains inpatient and outpatient Vital Signs collected on the date of the Encounter. Date/Time Temperature Pulse Blood Pressure Respiratory Rate SP02 Pain Height Weight Body Mass Index Source February 06, 2024 03:03 PM 96.9 68 123/71 16 95 0 251.7 38 [facility] Social History: Smoking Status (Most current) and Tobacco Use (All prior to encounter date) This section includes the most current, and the historical, smoking and tobacco- related health factors from the [place] facility where the Encounter took place. Current Smoking Status This section includes the most current smoking, or tobacco-related health factor, from the [place] facility where the Encounter took place. Date/Time Current Smoking Status Comment Facil ity Jul 09, 2023 03:03 PM VA-TOBACCO QUIT 15 YRS OR MORE [facility] Tobacco Use History This section includes a history of the smoking, or tobacco-related health factors, that were collected on or before the date of the Encounter. The data comes from the [place] facility where the Encounter took place. Date/Time Smoking Status/Tobacco Use Comment F acility Jul 09, 2023 03:03 PM VA-TOBACCO [facility]RS OR [facility] Jul 05, 2022 01:51 PM [facility]CO [facility] May 11, 2021 01:18 PM VA-TOBACCO NEVER USED [facility] Encounter Notes: All associated encounter notes This section contains the clinical notes associated to the Encounter. Date/Time Encounter Note(s) Provider Source February 06, 2024 03:49 PM PHYSICIAN NOTE: LOCAL TITLE: MD NOTE STANDARD TITLE: PHYSICIAN NOTE DATE OF NOTE: FEBRUARY 06, 2024@15:49 ENTRY DATE: FEBRUARY 06, 2024@15:49:10 AUTHOR: DELMER STALLINGS COSIGNER: URGENCY: STATUS: COMPLETED Dx:DM 2 Pt Name: Kirby Christianson Pt :1950 MR# [id number] Indication for device placement Date placed: Jan 24 2024 Date removed (date to which the CPT code is linked): Feb 06 2024 Name of device placed: Freestyle liat 2 glucose sensor date of printout of data: Date of interpretation: Feb 06 2024 Analysis of data (72 hours or more of monitoring required): Capture 93% Average 156 GMI 7 %CV 30.5% Very high 4% High 23% In range 72% Low 1% Very Low 0% MN 153, 4AM 163, 8AM 175, noon 159, 4PM 147, 8PM 143 Variability moderate to wider. Interpretation of data He will benefit from a decrease in lunch arjun /jamal/ DELMER STALLINGS MD STAFF PHYSICIAN Signed: 02/06/2024 15:54 [facility]
--- OUTSIDE RECORDS SUMMARY | 2024-10-12 19:46 | XMS_ITS | Encounter Summary ---
Author Name [facility] Organization [facility] [place] [facility] [place] Address [address] [place] [address] Care Team Providers Care Cabin Worker Name Role Phone SHAW MOSCOSO Primary Care [...] MEDIC ARE D Sep 16, 2016 PDPIND [id number] DAYAMI BERGER IS PATIENT AETNA [facility] MEDICARE ADVANTAGE [facility] Feb 14, 2022 [id number] [phone] DAYAMI BERGER IS PATIENT MEDICAID MEDICAID [facility] Jul 17, 2015 MEDICAI D [id number] DAYAMI BERGER IS PATIENT MEDICARE ([facility]) MEDICARE (M) PART A Sep 16, 2010 PART A [id number] DAYAMI BERGER IS PATIENT MEDICARE ([facility]) MEDICARE (M) PART B Sep 16, 2010 PART B [id number] [phone] DAYAMI BERGER IS PATIENT Selected Encounter This section includes the information on record at [place] for the Encounter. Date/Time Encounter Type Encounter Description Reason Provider Source Nov 07, 2023 03:00 PM OFFICE O/P EST HI 40 MIN ENDOCRINOLOGY ICD-10-CM E11.9 Type 2 diabetes mellitus without complications RUTHIE STALLINGSCE [facility] Encounter Template Text not used by [place] Assessments - Encounter Diagnoses This section includes the primary and secondary diagnoses documented for the Encounter. Date/Time Primary/Secondary Diagnosis Diagnosis Name Provider Source Nov 07, 2023 07:16 PM PRIMARY Type 2 diabetes mellitus without complications STALLINGSDELMER [facility] [place] [facility] Nov 07, 2023 07:16 PM SECONDARY Chronic kidney disease, stage 3 unspecified POCATELLODELMER [facility] [place] [facility] Nov 07, 2023 07:16 PM SECONDARY Essential (primary) hypertension POCATELLODELMER [facility] [place] [facility] Nov 07, 2023 07:16 PM SECONDARY Hyperlipidemia, unspecified STALLINGSDELMER [facility] [place] [facility] Nov 07, 2023 07:16 PM SECONDARY Obesity, unspecified POCATELLODELMER [facility] [place] [facility] Nov 07, 2023 07:16 PM SECONDARY Type 2 diab with prolif diab rtnop without mclr edema, unsp POCATELLODELMER [facility] [place] [facility] Nov 07, 2023 07:16 PM SECONDARY Type 2 diabetes mellitus w diabetic chronic kidney disease STALLINGSDELMER [facility] [place] [facility] Nov 07, 2023 07:16 PM SECONDARY Type 2 diabetes mellitus with diabetic polyneuropathy STALLINGSDELMER [facility] [place] [facility] Plan of Treatment: Future Appointments (+ 6 months) and Future Tests (+/- 45 days) The Plan of Treatment section includes future care activities for the patient from all [place] treatmentfacilities. This section includes future appointments and future orders which are active, pending or scheduled. Future Appointments This section includes appointments that were scheduled to occur 6 months from the date of the Encounter, up to a maximum of 20 appointments. The data comes from all [place] treatment facilities. Appointment Date/Time Appointment Type Appointme nt Facility Name Nov 12, 2023 03:00 PM AMBULATORY - MEDICINE PA [facility] [place] [facility] February 06, 2024 03:00 PM AMBULATORY - MEDICINE [facility] [place] [facility] Mar 17, 2024 04:00 PM AMBULATORY - MEDICINE [facility] [place] [facility] Apr 02, 2024 03:00 PM AMBULATORY - MEDICINE PA [facility] [place] [facility] Apr 16, 2024 03:00 PM AMBULATORY - MEDICINE PA [facility] [place] [facility] Lab Results: +/- 30 days of the encounter This section includes the Chemistry and Hematology Lab Results on record with [place] for the patient. Radiology Reports and Pathology Reports are provided separately, in subsequent sections. Lab Results This section contains the Chemistry/Hematology Results that were resulted 30 days before or 30 daysafter the date of the Encounter. Date/Time Source Result Type Result - Unit Interpretation Reference Range Comment Oct 24, 2023 09:43 [facility] HEMOGLOBIN A1C PANEL Specimen Type: BLOOD Comment: [...] Aug 01, 2023 09:49 AM Reporting [facility] [place] [facility] [address] [facility] [address] Performing Lab: [facility] [place] [facility] [address] [facility] [facility] [address] HEMOGLOBIN A1C 7.1 H 4.0-5.6 Oct 24, 2023 09:42 AM [facility] FERRITIN Specimen Type: SERUM No comment entered. Ordering Provider: LISA RAMOS Report Released Date/Time: Jun 11, 2023 03:29 PM Reporting Lab: [facility] [address] Performing Lab: [facility] [address] FERRITIN 120 ng/mL 20-300 Oct 24, 2023 09:42 AM [facility] MICROALBUMIN CREATININE RATIO PANEL Specimen Type: URINE No comment entered. Ordering Provider: LISA RAMOS Report Released Date/Time: Jun 11, 2023 03:29 PM Reporting Lab: [facility] [address] [address] Performing Lab: [facility] [address] [address] MICROALBUMIN/C REATININE RATIO 131.8 mg/g H 0-29.9 MICROALBUMIN,Q UANTITATIVE 11.2 mg/dL RR UNAVAIL CREATININE URINE 84.98 mg/dL Oct 24, 2023 09:42 AM [facility] CALCIUM Specimen Type: SERUM No comment entered. Ordering Provider: LISA RAMOS Report Released Date/Time: Jun 11, 2023 03:29 PM Reporting Lab: [facility] [address] Performing Lab: [facility] [address] CALCIUM 9.0 mg/dL 8.5-10.2 Oct 24, 2023 09:42 AM [facility] BASIC METABOLIC PANEL (non-fasting) Specimen Type: SERUM No comment entered. Ordering Provider: LISA RAMOS Report Released Date/Time: Jun 11, 2023 03:29 PM Reporting Lab: [facility] [address] [address] Performing Lab: [facility] [address] [address] UREA NITROGEN 30 mg/dL H 7-25 GLUCOSE 96 mg/dL 65-100 SODIUM 140 mmol/L 135-145 POTASSIUM 4.4 mmol/L 3.5-5.0 CHLORIDE 107 mmol/L 100-110 CO2 26 meq/L 20-30 CREATININE, Serum 1.50 mg/dL H 0.50-1.40 eGFR(CKD-EPI 2020) 49 mL/min L >60 Oct 24, 2023 09:42 AM [facility] IRON & TIBC PANEL Specimen Type: SERUM No comment entered. Ordering Provider: LISA RAMOS Report Released Date/Time: Jun 11, 2023 03:29 PM Reporting Lab: [address] [address] Performing Lab: [address] [address] TIBC 284 ug/dL 204-475 IRON 114 ug/dL 40-160 Transferrin Saturation 40.2 20.0-50.0 Oct 24, 2023 09:42 AM [facility] CBC Specimen Type: BLOOD No comment entered. Ordering Provider: LISA RAMOS Report Released Date/Time: Jun 11, 2023 03:29 PM Reporting Lab: [address] [address] Performing Lab: [address] [address] WBC 8.24 10*3/uL 4.50-11.00 RBC 5.23 10*6/uL 4.23-5.66 HGB 14.8 g/dL 12.8-17 HCT 45.7 39.2-50.4 MCV 87.4 fL 82-99 MCHC 32.4 g/dL 30.8-35.1 PLT 216 10*3/uL 140-360 RDW-CV 13.1 12.0-16.0 MCH 28.3 pg 26.2-32.6 Oct 24, 2023 09:42 AM [facility] VITAMIN D (25-OH) Specimen Type: SERUM No comment entered. Ordering Provider: LISA RAMOS Report Released Date/Time: Jun 11, 2023 03:29 PM Reporting Lab: [address] [address] Performing Lab: [address] [address] VITAMIN D (25-OH) 39 ng/mL 20-50 Oct 24, 2023 09:42 AM [facility] LIPID PANEL, NON FASTING Specimen Type: SERUM No comment entered. Ordering Provider: LISA RAMOS Report Released Date/Time: Jun 11, 2023 03:29 PM Reporting Lab: [facility] [address] [facility] [address] Performing Lab: [facility] [address] [facility] [address] CHOLESTEROL 111 mg/dL TRIGLYCERIDE 112 mg/dL 0-150 LDL calculated 60 mg/dL 0-129 CHOL/HDL 3.8 HDL CHOLESTEROL 29 mg/dL L 40-60 Vital Signs: All taken on the encounter date This section contains inpatient and outpatient Vital Signs collected on the date of the Encounter. Date/Time Temperature Pulse Blood Pressure Respiratory Rate SP02 Pain Height Weight Body Mass Index Source Nov 07, 2023 03:07 PM 98.1 72 116/58 16 95 0 68 240 37 [facility] Social History: Smoking Status (Most current) and Tobacco Use (All prior to encounter date) This section includes the most current, and the historical, smoking and tobacco- related health factors from the [place] facility where the Encounter took place. Current Smoking Status This section includes the most current smoking, or tobacco-related health factor, from the [place] facility where the Encounter took place. Date/Time Current Smoking Status Comment Debbie ity Jul 09, 2023 03:03 PM [facility]CO [facility] Tobacco Use History This section includes a history of the smoking, or tobacco-related health factors, that were collected on or before the date of the Encounter. The data comes from the [place] facility where the Encounter took place. Date/Time Smoking Status/Tobacco Use Comment F acility Jul 09, 2023 03:03 PM VA-TOBACCO QUIT 15 YRS OR MORE [facility] [place] [facility] Jul 05, 2022 01:51 PM [facility]-TOBACCO [facility]ED [facility] [place] [facility] May 11, 2021 01:18 PM [facility]-TOBACCO [facility] Encounter Notes: All associated encounter notes This section contains the clinical notes associated to the Encounter. Date/Time Encounter Note(s) Provider Source Nov 04, 2023 09:14 AM PHYSICIAN NOTE: LOCAL TITLE: MD NOTE STANDARD TITLE: PHYSICIAN NOTE DATE OF NOTE: NOV 04, 2023@09:14 ENTRY DATE: NOV 04, 2023@09:14:08 AUTHOR: DELMER STALLINGS COSIGNER: URGENCY: STATUS: COMPLETED CC: Diabetes Mellitus type 2 with chronic kidney disease, NPDR, and peripheral neuropathy , autonomic neuropathy, Hyperlipidemia Obesity HPI: Congratulated on his improved hgba1c! He attributes to sensors. Midodrine for autonomic sx, and doing well on this. All endocrine labs were reviewed with the patient. Barriers/s supports for care: Lives alone SO attends. SO comes over daily for dinner. Son nearby. Pretty consistently cooking at home. Three meals a day. Medications for diabetes: empagliflozin. Aspart 30 units TID and insulin glargine 44 units TWICE daily. BG readings: CGM Collection DT Spec HGBA1c 10/24/2023 09:43 BLOOD 7.1 H 04/02/2023 09:09 BLOOD 9.3 H 12/18/2022 10:14 BLOOD 9.7 H 09/25/2022 07:40 BLOOD 8.6 H 06/08/2022 07:39 BLOOD 9.4 H Weight trend: 249 lbs, 37.94 last clinic visit Currently 240 lbs. Food insecurity no Physical activity: limited by LBP. Carbohydrate counting: feels well informed Episodes of hypoglycemia: rare. Hypoglycemia unawareness: mild sx only Neuropathy pain: no pain, some numbness Last eye evaluation: 10/[address] Last nephropathy screen MICROALBUMIN Oct 24, 2023@09:42 URINE mALB/Cr: 131.8 H mg/G 0 - 29.9 FindingsCREATININE-EGFR 10/24/23 09:42 1.50 H [facility]23 07:35 1.70 H 04/02/23 09:09 1.75 H Statin therapy:Oct 24 2023 CHOL 111 mg/dL <7 - 199 TRIG 112 mg/dL 0 - 150 HDL 29 L mg/dL 40 - 60 LDL 60 mg/dL 0 - 55 CAD: present On asa: yes emergency kit/glucose tabs: has glucagon < 1 year old. SO knows how to use. Active problems - Computerized Problem List is [...] result abnormal 10. Low back pain 11. Essential hypertension 12. Allergy to peanuts 13. UTI 14. Claudication (SNOMED CT 285938330) 15. Elevated Prostate Specific antigen [psa] 16. Overweight (SNOMED CT 966199213) 17. Low Back Pain * 18. 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 Impotence of organic origin 20. Colorectal Cancer Screening Results Documented and Reviewed (PV) 21. Simple upper Gastrointestinal Endoscopy 22. Postsurgical Percutaneous Transluminal Coronary Angioplasty Status 23. Postsurgical Status of Cataract Extraction 24. MRSA SKIN INFECTION 25. Cocaine abuse, continuous use 26. GERD * 27. Corneal Abrasion 28. Hypertension (SNOMED CT 01861630) 29. Diabetic Neuropathies 30. Onychomycosis * 31. Cataract, PSC/Post Subcapsular 32. Cataract, Cortical (Senile) 33. Background diabetic retinopathy 34. Cyst, ganglion 35. Cervical Radiculopathy 36. Shoulder Pain 37. Hyperlipidemia (SNOMED CT 87777697) 38. Old Myocardial Infarction 39. Depressive Disorder NOS Active Outpatient Medications (including Supplies): FLUTICASONE PROP 50MCG 120D NASAL INHL INSTILL 2 SPRAYS ACTIVE INTO EACH NOSTRIL ONCE DAILY GLUCOSE SENSOR FREESTYLE ANTOINE 2 USE 1 SENSOR DIRECTED ACTIVE EVERY 14 DAYS INSULIN,ASPART(EQV-NOVLG)100 UN/ML FLXPEN INJECT 30 UNITS ACTIVE taking 30 units TID SUBCUTANEOUSLY EVERY MORNING AND INJECT 30 UNITS AT NOON AND INJECT 26 UNITS EVERY EVENING BEFORE SUPPER INSULIN,GLARGINE-YFGN 100UNIT/ML PEN 3ML INJECT 45 UNITS ACTIVE raking 44 units TWICE daily SUBCUTANEOUSLY TWICE DAILY (SAME LANTUS) SKIN BARRIER WIPE TORBOT SKIN TAC USE 1 WIPE TOPICALLY ACTIVE EVERY 14 DAYS Non-VA ALCOHOL PREP PAD 1 PAD TOPICALLY [...] COMPLEX CAP,ORAL BY MOUTH ON SATURDAY ACTIVE SHX: as above ROS: No cough no fever PE: affect pleasant appropriate Speaking easily in full sentences Feet pulses unable to palpate sensory to monofilament marked decrease lesions No Medical Decision Making: Diabetes Mellitus type 2 with chronic kidney disease, NPDR, and peripheral neuropathy, autonomic neuropathy Insulin Dose: No change. Reviewed role of CHO consistency in preventing hypoglycemia. Advised that we will need to taper insulin with continued weight loss. Carbohydrate targets 45 gm TID Blood sugar targets 130 premeal and 150-180 after Hemoglobin A1c Targets 7.5. Obesity: He will continue his healthy eating plan to lose weight. Hyperlipidemia well controlled Team follow up: none at this time lab BMP Hgba1c next visit Insulin orders updated in cprs F/u three mos FTF Medication Reconciliation: Outpatient: Has the patient been taking medications as documented in the EMLR? No: Discrepencies were identified. See below. Essential Medication List for Review used to complete this medication reconciliation. INCLUDED IN THIS LIST: Alphabetical list of active outpatient prescriptions dispensed from this [facility] (local) and dispensed from another VA or DoD facility [...] whether with a VA or non-VA provider. Essential Medication List for Review used to complete this medication reconciliation. INCLUDED IN THIS LIST: Alphabetical list of active outpatient prescriptions dispensed from this VA (local) and dispensed from another VA or DoD facility [...] GABAPENTIN [facility] [place] [facility] NO KNOWN ALLERGIES Med Recon NoGlossary (Tool #1) INCLUDED IN THIS LIST: Alphabetical list of active outpatient prescriptions dispensed from this VA (local) and dispensed from another VA or DoD facility [...] the patient into personal health records (i.e. [employer]) are NOT included in this list. Non-VA medications documented outside this VA, remote inpatient orders (regardless of status) [...] SPRAYS INTO EACH NOSTRIL ONCE DAILY Rx# [id number] Last Released: 07/09/23 Qty/Days Supply: 10/15 Rx Expiration Date: 07/09/24 Refills Remainin Indication: FOR NASAL IRRITATION/INFLAMMATION Non-VA FLUVASTATIN NA 40MG CAP TAKE 1 CAPSULE BY MOUTH ONCE DAILY OUTPT GLUCAGON 1MG/JEY INJ EMERGENCY KIT (Status = ) INJECT 1 INJECTION INTRAMUSCULARLY ONE TIME NEEDED FOR LOW BLOOD SUGAR Rx# [id number] Last Released: 08/03/23 Qty/Days Supply: 10/15 Rx Expiration Date: 08/31/23 Refills Remainin Indication: FOR LOW BLOOD SUGAR OUTPT INSULIN,ASPART(EQV-NOVLG)100 UN/ML FLXPEN (Status = Discontinued) INJECT 30 UNITS SUBCUTANEOUSLY EVERY MORNING AND INJECT 30 UNITS AT NOON AND INJECT 26 UNITS EVERY EVENING BEFORE SUPPER Rx# [id number] Last Released: 08/07/23 Qty/Days Supply: Rx Expiration Date: 08/01/24 Refills Remainin Indication: FOR DIABETES OUTPT INSULIN,ASPART(EQV-NOVLG)100 UN/ML FLXPEN (Status = On Hold) INJECT 30 UNITS SUBCUTANEOUSLY THREE TIMES A DAY FOR DIABETES Rx# [id number] Last Released: Qt Supply: Rx Expiration Date: 11/07/24 Refills Remainin Indication: FOR DIABETES OUTPT INSULIN,GLARGINE-YFGN 100UNIT/ML PEN 3ML (Status = Discontinued) INJECT 45 UNITS SUBCUTANEOUSLY TWICE DAILY (SAME LANTUS) Rx# [id number] Last Released: 08/05/23 Qty/Days Supply: Rx Expiration Date: 08/01/24 Refills Remainin Indication: FOR DIABETES OUTPT INSULIN,GLARGINE-YFGN 100UNIT/ML PEN 3ML (Status = On Hold) INJECT 44 UNITS SUBCUTANEOUSLY TWICE DAILY FOR DIABETES (SAME LANTUS) Rx# [id number] Last Released: Qt Supply: Rx Expiration Date: 11/07/24 Refills Remainin Indication: FOR DIABETES Non-VA LORATADINE [...] 1 SENSOR DIRECTED EVERY 14 DAYS Rx# [id number] Last Released: 08/24/23 Qty/Days Supply: 11/13 Rx Expiration Date: 06/07/24 Refills Remainin OUTPT GLUCOSE SENSOR FREESTYLE ANTOINE 2 (Status = Active) USE 1 SENSOR DIRECTED EVERY 14 DAYS Rx# [id number] Last Released: 10/26/23 Qty/Days Supply: 11/13 Rx Expiration Date: 08/23/24 Refills Remainin OUTPT SKIN BARRIER WIPE TORBOT SKIN TAC (Status = Active) USE 1 WIPE TOPICALLY EVERY 14 DAYS Rx# [id number] Last Released: 03/27/23 Qty/Days Supply: 50/ Rx Expiration Date: 03/23/24 Refills Remainin /jamal/ DELMER STALLINGS MD STAFF PHYSICIAN Signed: 11/07/2023 19:17 DELMER STALLINGS [facility] [place] [facility]
--- OUTSIDE RECORDS SUMMARY | 2024-10-12 19:46 | XMS_ITS ---
Author Organization [facility] Address [address] [address] Care Team Providers Care Machine Brusher Name Role Phone Manan Reinoso MD Primary Care Provider Unavailab Andrzej Pacheco Unavailable [phone] Ced Hernandez Unavailable [phone] Allergies No Known Allergies REASON FOR VISIT Painful thick toenails which are aggrevated by shoes and causes difficulty standing/walking Medications Medication SIG (Take, Route, Frequency, Duration) Notes Start Date End Date Status Midodrine HCl Active Rosuvastatin Calcium 40 MG 1 tablet Oral ly Once a day for 30 day(s) Active Pantoprazole Sodium 40 MG 1 tablet Orall y Once a day for 30 day(s) Active Extra Depth Diabetic Shoes with 3 Pair Custom heat-molded multi-density innersoles for 1 year Dx: Active Tadalafil 5 MG 1 tablet as needed O rally Once a day for 30 day(s) Active Magnesium 400 MG as directed Orally Active Lantus Active Metoprolol Tartrate Active HumaLOG Active Jardiance 25 MG 1 tablet Orally Once a day Active Vicodin Active Finasteride 5 MG 1 tablet Orally Once a day for 30 day(s) Active Antibiotic IV Active Eliquis 5 MG 1 tablet Orally Twic e a day for 30 day(s) Active ASA Active Social History Tobacco Use: Social History [...] Are you an other tobacco user? No Vital Signs Height 5ft 8in in 04/27/2024 Weight 235 lbs 04/27/2024 BMI 35.73 kg/m2 04/27/2024 Encounters Encounter Location Date Provider Diagnosis [facility] [address] [place] [address] 04/27/2024 Ced Hernandez Type 1 diabetes mellitus with [...] 3 Months, Reason: Provider Name:Andrzej Camargo , 11/03/2024 03:00:00 PM, [address] [place], [address], Procedure Notes * Category Sub-Category Detail Notes Keratoma Treatment Parring or Cutting o f Benign Hyperkeratotic Lesion(s) 95476 ( >4 Lesions) - The Benign hyperkeratotic [...] as necessary. Patient chooses, no pharmaceutical tx (83469) Nail Reduction Nail Reduction Trimming of dyst rophic nails performed to reduce/remove overall nail length and girth, by manual and electrical means with use of a nail nipper and/or dremel, to more viable healthy nail plate or bed tissue 6-10 (G0127) Progress Notes * SAMMY KirbyDOB:1950 ( 73 yo M)Acc No.[id number]:04/27/2024 Progress Note Patient:?Kirby Christianson Provider:?Ced Hernandez DPM :1950???Age:73 Y???Sex:Male Jason e:04/27/2024 Address:[address] [place], [place] [id number] Pcp:Manan Reinoso MD Subjective: * Chief Complaints: * ???Painful thick toenails wh ich are aggrevated by shoes and causes difficulty standing/walking * HPI: ???At Risk footcare:?Pt States Last PCP Visit:?Date?12/16/2023 ???Skin problems:?Nature:?tender, swelling, redness, Open sore.?Location:?Right leg.?Duration:?a month.?Course:?improved.?Treatments:?[place] [facility] [place].? * ROS:?General/Constitutional:?Nausea?denies, denies.?Vomiting?denies, denies.?Hunger Thirst?denies, denies.?Loss appetite?denies, denies.?Chills?denies, denies.?Fatigue?denies, denies.?Fever?denies, denies.?Night Sweats denies, denies.?Unexplained weight loss?denies, denies.?Unexplained weight gain?denies, denies.?HEENTM:?Dentures?denies, denies.?Dizziness?denies, denies.?Glasses/contacts?denies, denies.?Retinopathy?denies, denies.?Blurred/double vision?denies, denies.?TMJ?denies, denies.?Discharge/drainage?denies, denies.?Implants?denies, denies.?Sore throat?denies, denies.?Dental implants?denies, denies.?Hard of hearing ?denies, denies.?Difficulty chewing/swallowing/speaking?denies, denies.?Nose bleeds?denies, denies.?Sore mouth?denies, denies.?Respiratory:?On Oxygen?denies, denies.?Pneumonia/pleurisy?denies, denies.?Bronchitis?denies, denies.?Emphysema?denies, denies.?Coughing?denies, denies.?Cough blood?denies, denies.?Shortness of breath?denies, denies.?Wheezing?denies, denies.?Cardiovascular:?Pacemaker?denies, denies.?MVP?denies, denies.?WPW?denies, denies.?CHF?denies, denies.?Heart attack?denies, denies.?Septal defect?denies, denies.?Rapid beat?denies, denies.?Chest pain ?denies, denies.?Atrial Fib.?denies, denies.?Murmur/Palpitations?denies, denies.?Gastrointestinal:?Hemorrhoids?denies, denies.?Stomach/Abdominal pain?denies, denies.?Dark blood stool?denies, denies.?Irritable bowel ?denies, denies.?Constipation?denies, denies.?Diarrhea?denies, denies.?Hematology:?Swelling?denies, denies.?Clots?denies, denies.?Varicose Veins?denies, denies.?Bruising?denies, denies.?Bleeding problem?denies, denies.?Genitourinary:?Blood urine?denies, denies.?Frequent/Painfu/urination/bladder control?denies, denies.?Kidney stones?denies, denies.?Infection (UTI)?denies, denies.?Nephropathy?denies, denies.?sex trans dis (STD)?denies, denies.?Prostate?denies, denies.?Musculoskeletal:?Hammertoes?denies, denies.?Bunions?denies, denies.?Back Pain?admits, admits.?Muscle Cramps/ Resting?denies, denies.?Muscle cramps / walking?denies, denies.?Generalized aches and pains?denies, denies.?Weakness?denies, denies.?Integ.:?Ray?denies, denies.?Scars?denies, denies.?Corns/calluses?denies, denies.?Ingrown nails?denies, denies.?Painful nails?denies, denies.?Open Sores?admits, admits.?Rashes?denies, denies.?Neurologic:?Difficulty sleeping?denies, denies.?Brain disorder?denies, denies.?Numbness?denies, denies.?Balance trouble?admits, admits.?Confusion?denies, denies.?Fainting/blackouts?denies, denies.?Tingling?denies, denies.?Tremors?denies, denies.? * Medical History:? * Surgical History:?back surge ry- Spine L5 03/06cataract surgery appendectomy right leg [place] [facility] [place] * Hospitalization/Major Diagno stic Procedure:?Denies Past Hospitalization * Family History:?Mother: dece ased, Stroke, diagnosed with Unspecified heart disease.?Father: , Stroke, diagnosed with Diabetic - NIDDM, Unspecified heart disease.?Siblings: Sister, diagnosed with Diabetic - NIDDM.? * Social History:?Tobacco Use:?Tobacco Use/Smoking?Are you a:?nonsmoker ?Additional Findings: Tobacco Non-User?Current non-smoker ?Tobacco use other than smoking?Are you an other tobacco user??No ???Drugs/Alcohol:?Drugs?Have you used drugs other than those for medical reasons in the past 12 months??No ?Alcohol Screen?Did you have a drink containing alcohol in the past year??No ?Points?0 ?Interpretation?Negative ???Miscellaneous:?no Caffeine, none. ?Children: yes. ?no Exercise. ?Marital status: . ?Occupation: Retired-Worked on [employer]. * Medications:?TakingExtra Dep th Diabetic Shoes with 3 Pair Custom heat-molded multi-density innersoles for 1 year Dx:Vicodin Antibiotic , Notes: IVASA Eliquis 5 MG Tablet 1 tablet Orally Twice a dayFinasteride 5 MG Tablet 1 tablet Orally Once a dayJardiance 25 MG Tablet 1 tablet Orally Once a dayHumaLOG Lantus Magnesium 400 MG Tablet as directed Orally Metoprolol Tartrate Midodrine HCl Pantoprazole Sodium 40 MG Tablet Delayed Release 1 tablet Orally Once a dayRosuvastatin Calcium 40 MG Tablet 1 tablet Orally Once a dayTadalafil 5 MG Tablet 1 tablet as needed Orally Once a dayMedication List reviewed and reconciled with the patientTaking Extra Depth Diabetic Shoes with 3 Pair Custom heat-molded multi-density innersoles for 1 year Dx:Taking Vicodin Taking Antibiotic , Notes: IVTaking ASA Taking Eliquis 5 MG Tablet 1 tablet Orally Twice a dayTaking Finasteride 5 MG Tablet 1 tablet Orally Once a dayTaking Jardiance 25 MG Tablet 1 tablet Orally Once a dayTaking HumaLOG Taking Lantus Taking Magnesium 400 MG Tablet as directed Orally Taking Metoprolol Tartrate Taking Midodrine HCl Taking Pantoprazole Sodium 40 MG Tablet Delayed Release 1 tablet Orally Once a dayTaking Rosuvastatin Calcium 40 MG Tablet 1 tablet Orally Once a dayTaking Tadalafil 5 MG Tablet 1 tablet as needed Orally Once a dayMedication List reviewed and reconciled with the patient * Allergies:?N.K.D.A.yes[Aller gies Verified] Objective: * Vitals:?Ht: 5ft 8in, Wt:235, BMI:35.73, Shoe size:9, BS:220. * ???Past Orders: ???Lab:HEMOGLOBIN A1C (GLYCO HEMOGLOBIN) (Order Date - 09/17/2022) (Collection Date - 09/17/2022) ? Value Reference Range ?HEMOGLOBIN A1C (HH) 8.8 * Examination: ???Ophthalmology Referral: ?DIABETES EYE EXAM?Neurological: ?SENSORY:? Neurological exam demonstrates, reduced vibration sensation, 5.07 monofilament test performed at plantar aspects of 5 varied sites per foot shows sensation, reduced , B/L.?Vascular: ?DP PULSES:? 09/19, B/L.?PT PULSES:? /4, B/L.?CAPILLARY FILL TIME:?3 secs. per digit. B/L.?SKIN TEMPERTURE GRADIENT OF THE LOWER EXTERMITIES:?normal, B/L.?HAIR GROWTH/TEXTURE/ELASTICITY/TURGOR:?normal, B/L.?PIGMENTATION:?normal, B/L.?EDEMA:?absent, B/L.?TELANGECTASIA:?absent, B/L.?Nails: ?NAILS are:?Elongated, overgrown, dystrophic, lytic, greater than 3mm thick, discolored and friable with crumbly malodorous subungual debris, with dull to no pain on palpation due to neuropathy, TA, T5, remaining nails are elongated, overgrown, dystrophic.?Dermatologic: ?SKIN FINDINGS:? Skin exam reveals Keratotic lesion(s) located at, Medial plantar, IPJ, TA, T5, SUB MTH (s), 1, Heel(s), B/L .?General Examination: ?GENERAL APPEARANCE:?pleasant, alert, well nourished, well developed, well hydrated, with good attention to hygene/body habitus, and in no acute distress.?ORIENTED:?person,place, and time.?FOOT EXAM:?Orthopedic: ?MUSCLE STRENGTH:?5/5 all groups in a symmetrical fashion , B/L.?BUNION:? Medially prominent 1st MPJ, B/L, Lateral tracking 1st MPJ incompletely reducable.?Ingrown Nail: ?INSPECTION:? Reveals nail incurvation, dull pain on palpation due to neuropathy, groove hypertrophy, Bilateral nail borders, T5.? Assessment: * Assessment: 1.?Type 1 diabetes mellitus with diabetic polyneuropathy - E10.42 (Primary)?2.?Skin disease - L98.9?3.?Hallux valgus (acquired), left foot - M20.12?4.?Tinea unguium - B35.1?5.?Pain in right toe(s) - M79.674?6.?Pain in left toe(s) - M79.675?7.?Ingrowing nail - L60.0? Plan: * Treatment: * Procedures:?Debride Nails 1-5:?Procedure:?Nail debridement performed extensively to reduce/remove overall nail length and girth, subungual debris, and necrotic tissue, by manual and electrical means by use of a nail nipper and/or dremel, to more viable healthy nail plate or bed tissue 1-5. Silver nitrate used for any petechial bleeding as necessary. Patient chooses, no pharmaceutical tx (59524).?Keratoma Treatment:?Parring or Cutting of Benign Hyperkeratotic Lesion(s)?88260 ( >4 Lesions) - The Benign hyperkeratotic lesions, as described above were pared, and/or cut utilizing a sterile #15 blade, tissue nippers, and/or dremel.?Nail Reduction:?Nail Reduction?Trimming of dystrophic nails performed to reduce/remove overall nail length and girth, by manual and electrical means with use of a nail nipper and/or dremel, to more viable healthy nail plate or bed tissue 6-10 (G0127).? * Procedure Codes:?29422 TRIM SKIN LESIONS, OVER 4, Modifiers: XS 68326 DEBRIDE NAIL, 1-5, Modifiers: XS G0127 TRIMMING DYSTROPHIC NAILS ANY #, Modifiers: XS * Follow Up:?3 Months * Images: * Sign off status: Completed true * Provider:Christiano Hernandez DPM Date:? 024 Generated for Zachary wells/Concepcion/Jasmeet on:?10/12/2024 07:46 PM EST History and Physical Notes * HPI (History of Present Illness) Category Sub-Category Detail Notes Category Not es Skin problems Nature: tender, swelling, redness, Open sore Location: Right leg Duration: a month Course: improved Treatments: surgery [place] [facility] [place] At Risk footcare Pt States Last PCP [...] Visual exam of foot performed:: Yes Date: 04/27/2024 Sensory testing performed:: sensations d iminished Pedal [...]
--- OUTSIDE RECORDS SUMMARY | 2024-10-12 19:46 | XMS_ITS | Encounter Summary ---
Author Name [facility] [place] [facility] Address [address] [place] [address] Care Team Providers Care Tailercpa Name Role Phone SHAW MOSCOSO Primary Care [...] MEDIC ARE D Sep 16, 2016 PDPIND [id number] DAYAMI BERGER IS PATIENT AETNA [facility] MEDICARE ADVANTAGE [facility] Feb 14, 2022 [id number] [phone] DAYAMI BERGER IS PATIENT MEDICAID MEDICAID [facility] Jul 17, 2015 MEDICAI D [id number] DAYAMI BERGER IS PATIENT MEDICARE (WNR) MEDICARE (M) PART A Sep 16, 2010 PART A [id number] [phone] DAYAMI BERGER IS PATIENT MEDICARE (WNR) MEDICARE (M) PART B Sep 16, 2010 PART B [id number] [phone] YESSI BERGERZhane IS PATIENT Selected Encounter This section includes the information on record at [place] for the Encounter. Date/Time Encounter Type Encounter Description Reason Pro vider Source May 20, 2024 03:00 PM Outpatient Encounter CLINICAL PHARMACY [facility] Encounter Template Text not used by [...] [place] treatment facilities. Appointment Date/Time Appointment Type Appointme nt Facility Name Jun 25, 2024 03:00 PM [place] [facility] [place] [facility] Jul 09, 2024 03:00 PM [place] [facility] [place] [facility] Jul 10, 2024 03:00 PM AMBULATORY - MEDICINE [facility] Aug 27, 2024 01:00 PM [place] [facility] [place] [facility] Oct 28, 2024 03:00 PM [place] [facility] [place] [facility] Nov 05, 2024 03:00 PM [place] [facility] [place] [facility] Nov 10, 2024 03:00 PM [place] [facility] [place] [facility] Lab Results: +/- 30 days of the [...] Range Comment May 08, 2024 08:12 AM [place] [facility] [place] [facility] MICROALBUMIN CREATININE RATIO PANEL Specimen Type: URINE No comment entered. Ordering Provider: JOVI RAMOS Report Released Date/Time: Nov 12, 2023 03:09 PM Reporting Lab: [facility] [address] [address] Performing Lab: [facility] [place] [facility] [address] [facility] [address] MICROALBUMIN/C REATININE RATIO 116.9 mg/g H 0-29.9 MICROALBUMIN,Q UANTITATIVE 11.6 mg/dL RR UNAVAIL CREATININE URINE 99.23 mg/dL May 07, 2024 10:37 AM [facility] [place] [facility] PO4 Specimen Type: SERUM No comment entered. Ordering Provider: JOVI RAMOS Report Released Date/Time: Nov 12, 2023 03:09 PM Reporting Lab: [facility] [place] [facility] [address] [facility] [address] Performing Lab[facility] [place] [address] [address] PO4 2.4 mg/dL L 2.5-5.0 May 07, 2024 10:[address] [facility] PTH INTACT Specimen Type: SERUM No comment entered. Ordering Provider: JOVI RAMOS Report Released Date/Time: Nov 12, 2023 03:09 PM Reporting Lab: [facility] [place] [facility] [address] [facility] [address] Performing Lab: [facility] [place] [address] [address] PTH INTACT 99.2 pg/mL H 10-65 May 07, 2024 10:[address] [facility] VITAMIN D (25-[place]) Specimen Type: SERUM No comment entered. Ordering Provider: JOVI RAMOS Report Released Date/Time: Nov 12, 2023 03:09 PM Reporting Lab: [facility] [place] [facility] [address] [facility] [address] Performing Lab: [facility] [place] [address] [address] VITAMIN D (25-[place]) 30 ng/mL 20-50 May 07, 2024 10:37 AM [facility] MAGNESIUM Specimen Type: SERUM No comment entered. Ordering Provider: JOVI RAMOS Report Released Date/Time: Nov 12, 2023 03:09 PM Reporting Lab: [facility] [place] [facility] [address] [facility] [address] Performing Lab: [place] [facility] [place] [facility] [address] [facility] [address] MAGNESIUM 1.8 mg/dL 1.6-2.6 May 07, 2024 10:37 AM [facility] CALCIUM Specimen Type: SERUM No comment entered. Ordering Provider: JOVI RAMOS Report Released Date/Time: Nov 12, 2023 03:09 PM Reporting Lab: [facility] [place] [facility] [address] [facility] [address] Performing Lab: [facility] [place] [address] [address] CALCIUM 9.0 mg/dL 8.5-10.2 May 07, 2024 10:[address] [facility] ALBUMIN Specimen Type: SERUM No comment entered. Ordering Provider: JOVI RAMOS Report Released Date/Time: Nov 12, 2023 03:09 PM Reporting Lab: [facility] [place] [facility] [address] [facility] [address] Performing Lab: [facility] [place] [address] [address] ALBUMIN 3.8 g/dL 3.5-5.0 May 07, 2024 10:[address] [facility] ALKALINE PHOSPHATASE Specimen Type: SERUM No comment entered. Ordering Provider: JOVI RAMOS Report Released Date/Time: Nov 12, 2023 03:09 PM Reporting Lab: [facility] [place] [facility] [address] [facility] [address] Performing Lab: [facility] [address] [address] ALKALINE PHOSPHATASE 72 U/L 40-150 May 07, 2024 10:37 AM [facility] FERRITIN Specimen Type: SERUM No comment entered. Ordering Provider: JOVI RAMOS Report Released Date/Time: Nov 12, 2023 03:09 PM Reporting Lab: [facility] [place] [facility] [address] [facility] [address] Performing Lab: [facility] [address] [facility] [address] FERRITIN 157 ng/mL 20-300 May 07, 2024 10:37 AM [facility] IRON & TIBC PANEL Specimen Type: SERUM No comment entered. Ordering Provider: JOVI RAMOS Report Released Date/Time: Nov 12, 2023 03:09 PM Reporting Lab: [facility] [address] [facility] [address] Performing Lab: [address] [address] TIBC 267 ug/dL 204-475 IRON 64 ug/dL 40-160 Transferrin Saturation 24.0 20.0-50.0 May 07, 2024 10:37 AM [facility] BASIC METABOLIC PANEL (non-fasting) Specimen Type: SERUM No comment entered. Ordering Provider: JOVI RAMOS Report Released Date/Time: Nov 12, 2023 03:09 PM Reporting Lab: [address] [address] Performing Lab: [facility] [address] UREA NITROGEN 20 mg/dL 7-25 GLUCOSE 168 mg/dL H 65-100 SODIUM 138 mmol/L 135-145 POTASSIUM 4.1 mmol/L 3.5-5.0 CHLORIDE 109 mmol/L 100-110 CO2 22 meq/L 20-30 CREATININE, Serum 1.38 mg/dL 0.50-1.40 eGFR(CKD-EPI 2020) 54 mL/min L >60 May 07, 2024 10:37 AM [facility] CBC Specimen Type: BLOOD No comment entered. Ordering Provider: JOVI RAMOS Report Released Date/Time: Nov 12, 2023 03:09 PM Reporting Lab: [address] [address] Performing Lab: [address] [address] WBC 6.55 10*3/uL 4.50-11.00 RBC 4.65 10*6/uL 4.23-5.66 HGB 13.9 g/dL 12.8-17 HCT 41.1 39.2-50.4 MCV 88.4 fL 82-99 MCHC 33.8 g/dL 30.8-35.1 PLT 200 10*3/uL 140-360 RDW-CV 15.0 12.0-16.0 MCH 29.9 pg 26.2-32.6 Social History: Smoking Status (Most current) and Tobacco Use (All prior to encounter date) This section includes the most current, and the historical, smoking and tobacco- related health factors from the [place] facility where the Encounter took place. Current Smoking Status This section includes the most current smoking, or tobacco-related health factor, from the [place] facility where the Encounter took place. Date/Time Current Smoking Status Comment Facil it February 03, 2019 10:28 AM VA-TOBACCO NEVER USED [facility] Tobacco Use History This section includes a history of the smoking, or tobacco-related health factors, that were collected on or before the date of the Encounter. The data comes from the [place] facility where the Encounter took place. Date/Time Smoking Status/Tobacco Use Comment F acility Jan 13, 2018 09:49 AM LIFETIME NON-TOBACCO USER [facility] Jan 04, 2017 10:17 AM LIFETIME NON-TOBACCO USER [facility] Dec 23, 2015 08:49 AM LIFETIME NON-TOBACCO USER [facility] Nov 27, 2005 02:55 PM LIFETIME NON-TOBACCO USER patient reportssmoking only crack coccaine [facility] January 22, 2003 10:42 AM LIFETIME NON-SMOKER [facility] Aug 18, 2001 01:54 PM LIFETIME NON-TOBACCO USER pt states he has never smoked [facility] May 14, 2001 02:23 PM LIFETIME NON-SMOKER [facility] Encounter Notes: All associated encounter notes This section contains the clinical notes associated to the Encounter. Date/Time Encounter Note(s) Provider Source May 20, 2024 03:46 PM CLERICAL NOTE: LOCAL TITLE: APPOINTMENT NO SHOW STANDARD TITLE: CLERICAL NOTE DATE OF NOTE: MAY 20, 2024@15:46 ENTRY DATE: MAY 20, 2024@15:46:40 AUTHOR: ROB MATTHEW COSIGNER: URGENCY: STATUS: COMPLETED APPOINTMENT NO SHOW Has ADDENDA Patient Name: JESSICA BERGER Patient SSN: [id number] Date and time of Appointment No show : 05/20/24 15:00 PATIENT PHONE - PHONE NUMBER [CELLULAR] - Patient's medical record was reviewed. 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 /jamal/ AMADA TRUONG Signed: 05/20/2024 16:20 ROB MATTHEW
--- OUTSIDE RECORDS SUMMARY | 2024-10-12 19:46 | XMS_ITS | Encounter Summary ---
Author Name [facility] [place] Address [address] [place] [address] Care Team Providers Care Monologist Name Role Phone SHAW MOSCOSO Primary Care [...] MEDIC ARE D Sep 16, 2016 PDPIND [id number] DAYAMI BERGER IS PATIENT AETNA [facility] ([facility]) MEDICARE ADVANTAGE [facility] ([facility]) Feb 14, 2022 [id number] [phone] DAYAMI BERGER IS PATIENT MEDICAID MEDICAID [facility] Jul 17, 2015 MEDICAI D [id number] DAYAMI BERGER IS PATIENT MEDICARE ([facility]) MEDICARE (M) PART A Sep 16, 2010 PART A [id number] DAYAMI BERGER IS PATIENT MEDICARE ([facility]) MEDICARE (M) PART B Sep 16, 2010 PART B [id number] DAYAMI BERGER IS PATIENT Selected Encounter This section includes the information on record at [place] for the Encounter. Date/Time Encounter Type Encounter Description Reason Pro vider Source Oct 09, 2024 11:19 AM Outpatient Encounter ADMIN PAT ACTIVTIES (MASNONCT) IHE Encounter Template Text not used by [place] Plan of Treatment: Future Appointments (+ 6 months) and Future Tests (+/- 45 days) The Plan of Treatment section includes future care activities for the [facility] [place] [facility] This section includes future appointments and future orders which are active, pending or scheduled. Future Appointments This section includes appointments that were scheduled to occur 6 months from the date of the Encounter, up to a maximum of 20 appointments. The data comes from all [facility]. Appointment Date/Time Appointment Type Appointme nt Facility Name Oct 28, 2024 03:00 PM [facility] Nov 05, 2024 03:00 PM AM[facility]UL[facility]ORY MEDICINE [place] [facility] Nov 10, 2024 03:00 PM [facility]ORY - [facility]IC[facility] [place] [facility] Dec 15, 2024 03:00 PM AMBULATORY - [facility]IC[facility] [place] [facility] Active, Pending, and Scheduled Orders This section includes a listing of several types of active, pending, and scheduled orders, including clinic medications orders, diagnostic test orders, procedure orders and consult orders; where the start date of the order is 45 days before the date of the Encounter or 45 days after the date of theEncounter. The data comes from all [facility]. Test Date/Time Test Type Test Details Facility Name Nov 12, 2024 12:00 AM Laboratory - Chemistry Order BASIC METABOLIC PANEL (non-fasting) BLOOD (SST-SERUM) [facility] [place] [facility] Nov 12, 2024 12:00 AM Laboratory - Chemistry Order FERRITIN BLOOD (SST-SERUM) [facility] Nov 12, 2024 12:00 AM Laboratory - Chemistry Order IRON & TIBC PANEL BLOOD (SST-SERUM) [facility] Nov 12, 2024 12:00 AM Laboratory - Chemistry Order CBC BLOOD (LAV-BLOOD) [facility] Nov 12, 2024 12:00 AM Laboratory - Chemistry Order LIPID PANEL, NON FASTING BLOOD (SST-SERUM) [facility] Nov 12, 2024 12:00 AM Laboratory - Chemistry Order MICROALBUMIN CREATININE RATIO PANEL URINE (RANDOM) [facility] Social History: Smoking Status (Most current) and Tobacco Use (All prior to encounter date) This section includes the most current, and the historical, smoking and tobacco- related health factors from the [place] facility where the Encounter took place. Current Smoking Status This section includes the most current smoking, or tobacco-related health factor, from the [place] facility where the Encounter took place. Date/Time Current Smoking Status Comment Facil ity Jul 09, 2023 03:03 PM VA-TOBACCO FORMER USER [facility] Tobacco Use History This section includes a history of the smoking, or tobacco-related health factors, that were collected on or before the date of the Encounter. The data comes from the [place] facility where the Encounter took place. Date/Time Smoking Status/Tobacco Use Comment F acility Jul 09, 2023 03:03 PM VA-TOBACCO QUIT 15 YRS OR MORE [facility] Jul 05, 2022 01:51 PM VA-TOBACCO NEVER USED [facility] May 11, 2021 01:18 PM VA-TOBACCO NEVER USED [facility] Encounter Notes: All associated encounter notes This section contains the clinical notes associated to the Encounter. Date/Time Encounter Note(s) Provider Source Oct 09, 2024 11:19 AM PHARMACY NOTE: LOCAL TITLE: V1 PHARMACY CUSTOMER CARE MEDICATION RENEWAL STANDARD TITLE: PHARMACY NOTE DATE OF NOTE: OCT 09, 2024@11:19 ENTRY DATE: OCT 09, 2024@11:19:49 AUTHOR: FRANCESCA ARANA COSIGNER: URGENCY: STATUS: COMPLETED V1 PHARMACY CUSTOMER CARE MEDICATION RENEWAL Has ADDENDA Date: Sep Division: [facility] referred by Pharmacy Call Center for medication renewal: Non-controlled/maintenan ce medication Medications requested: [id number] NEEDLE,PEN 32G,4MM This medication is long . It was last released 07/02/2022, but the requested to renew it. The [place] can be reached at to discuss if needed. Please review. Defer to primary care provider To be mailed . Please review and renew if appropriate. *This note was generated by [facility] Pharmacy Customer Care. If you have any questions or need assistance, do not contact this author. Please refer all questions to your local, on-site pharmacy departments. /jamal/ FRANCESCA ARANA [facility] Discovery Manager, [place]/Pharmacy Customer Care Signed: 10/09/2024 11:25 Receipt Acknowledged By: 10/09/2024 11:53 /jamal/ ROBERT MALIK RN REGISTERED NURSE for JAREN BOWSER 10/09/2024 15:08 /jamal/ SHAW MOSCOSO MD PHYSICIAN 10/09/2024 ADDENDUM STATUS: COMPLETED Will forward to Endocrinology. /jamal/ ROBERT MALIK RN REGISTERED NURSE Signed: 10/09/2024 11:53 Receipt Acknowledged By: * AWAITING SIGNATURE * DELMER STALLINGS ANDREA R [place] [facility]
--- OUTSIDE RECORDS SUMMARY | 2024-10-12 19:46 | XMS_ITS | Encounter Summary ---
Author Name [facility] Organization [facility] [place] Address [address] [place] [address] Care Team Providers Care Family Engagement Specialist Name Role Phone SHAW MOSCOSO Primary Care [...] MEDIC ARE D Sep 16, 2016 PDPIND [id number] [phone] DAYAMI BERGER IS PATIENT AETNA [facility] ([place]) MEDICARE ADVANTAGE [facility] ([facility]) Feb 14, 2022 [id number] [phone] DAYAMI BERGER IS PATIENT MEDICAID MEDICAID [facility] Jul 17, 2015 MEDICAI D [id number] DAYAMI BERGER IS PATIENT MEDICARE (WNR) MEDICARE (M) PART A Sep 16, 2010 PART A [id number] DAYAMI BERGER IS PATIENT MEDICARE (WNR) MEDICARE (M) PART B Sep 16, 2010 PART B [id number] [phone] DAYAMI BERGER IS PATIENT Selected Encounter This section includes the information on record at [place] for the Encounter. Date/Time Encounter Type Encounter Description Reason Provider Source Jul 09, 2024 03:00 PM MTMS BY RACHAEL EASTON 15 MIN CLINICAL PHARMACY ICD-10-CM E11.9 Type 2 diabetes mellitus without complications VANDANA MATTHEW [facility] Encounter Template Text not used by [place] Assessments - Encounter Diagnoses This section includes the primary and secondary diagnoses documented for the Encounter. Date/Time Primary/Secondary Diagnosis Diagnosis Name Provider Source Jul 09, 2024 04:28 PM PRIMARY Type 2 diabetes mellitus without complications PAMELA MATTHEW [facility] Plan of Treatment: Future Appointments (+ 6 [...] [place] treatment facilities. Appointment Date/Time Appointment Type Appointme nt Facility Name Jul 10, 2024 03:00 PM AMBULATORY - MEDICINE [facility] Aug 27, 2024 01:00 PM AMBULATORY - MEDICINE [place] [facility] Oct 28, 2024 03:00 PM AMBULATORY - MEDICINE [place] [facility] [facility] Nov 05, 2024 03:00 PM AMBULATORY MEDICINE [place] [facility] [place] [facility] Nov 10, 2024 03:00 PM AMBULATORY - MEDICINE [place] [facility] [place] [facility] Dec 15, 2024 03:00 PM AMBULATORY - MEDICINE [place] [facility] [place] [facility] Lab Results: +/- 30 days [...] Range Comment Jul 07, 2024 07:41 AM [facility] BASIC METABOLIC PANEL (fasting) Specime n Type: SERUM No comment entered. Ordering Provider: AMBIKA KNIGHT Report Released Date/Time: Jul 09, 2023 03:20 PM Reporting Lab: [address] [address] Performing Lab: [address] [address] UREA NITROGEN 24 mg/dL 7-25 GLUCOSE 200 mg/dL H 65-100 SODIUM 137 mmol/L 135-145 POTASSIUM 4.9 mmol/L 3.5-5.0 CHLORIDE 106 mmol/L 100-110 CO2 24 meq/L 20-30 CREATININE, Serum 1.59 mg/dL H 0.50-1.40 eGFR(CKD-EPI 2020) 46 mL/min L >60 Jul 07, 2024 07:41 AM [facility] LIPID PANEL FASTING Specimen Type: SERUM No comment entered. Ordering Provider: AMBIKA KNIGHT Report Released Date/Time: Jul 09, 2023 03:20 PM Reporting Lab: [address] [address] Performing Lab: [address] [address] CHOLESTEROL 132 mg/dL TRIGLYCERIDE 110 mg/dL 0-150 LDL calculated 76 mg/dL 0-129 CHOL/HDL 3.9 HDL CHOLESTEROL 34 mg/dL L 40-60 Jul 07, 2024 07:41 AM [facility] LIVER FUNCTION Specimen Type: SERUM No comment entered. Ordering Provider: AMBIKA KNIGHT Report Released Date/Time: Jul 09, 2023 03:20 PM Reporting Lab: [address] [address] Performing Lab: [address] [address] PROTEIN,TOTAL 7.5 g/dL 6.0-8.3 ALBUMIN 4.2 g/dL 3.5-5.0 ALKALINE PHOSPHATASE 68 U/L 40-150 AST 23 U/L 5-34 ALT 29 U/L BILIRUBIN, TOTAL 0.4 mg/dL 0.2-1.2 Jul 07, 2024 07:41 AM [facility] URINALYSIS Specimen Type: URINE Comment: If Glucose = >500 and Ketones are positive, please alert the Physician. Ordering Provider: AMBIKA KNIGHT Report Released Date/Time: Jul 09, 2023 03:20 PM Reporting Lab: [address] [address] Performing Lab: [address] [address] UA COLOR Light-Yellow Yellow UA APPEARANCE Clear Clear UA GLUCOSE >1000 mg/dL Negative UA KETONES NEGATIVE mg/dL Negative UA BLOOD NEGATIVE mg/dL Negative UA PROTEIN 20 mg/dL Negative UA NITRITE NEGATIVE mg/dL Negative UA BILIRUBIN NEGATIVE mg/dL Negative UA SPECIFIC GRAVITY 1.031 H 1.016-1.022 UA pH 5.5 5.0-9.0 UA UROBILINOGEN Normal mg/dL <2.0 UA LEUKOCYTE NEGATIVE Negative Jul 07, 2024 07:41 AM [facility] HEMOGLOBIN A1C PANEL Specimen Type: BLOOD Comment: [...] 09, 2023 03:20 PM Reporting Lab: [address] [address] Performing Lab: [address] [address] HEMOGLOBIN A1C 6.4 H 4.0-5.6 Jul 07, 2024 07:41 AM [facility] TSH Specimen Type: SERUM No comment entered. Ordering Provider: AMBIKA KNIGHT Report Released Date/Time: Jul 09, 2023 03:20 PM Reporting Lab: [address] [address] Performing Lab: [address] [address] TSH 1.83 u[IU]/mL 0.35-5.00 Jul 07, 2024 07:41 AM [facility] CBC AND DIFF (AUTO) Specimen Type: BLOOD No comment entered. Ordering Provider: AMBIKA KNIGHT Report Released Date/Time: Jul 09, 2023 03:20 PM Reporting Lab: [facility] [address] [address] Performing Lab: [facility] [address] [address] WBC 7.74 10*3/uL 4.50-11.00 RBC 4.99 10*6/uL [...] and tobacco- related health factors from the [place] facility where the Encounter took place. Current Smoking Status This section includes the most current smoking, or tobacco-related health factor, from the [place] facility where the Encounter took place. Date/Time Current Smoking Status Comment Facil ity February 03, 2019 10:28 AM VA-TOBACCO NEVER USED [facility] Tobacco Use History This section includes a history of the smoking, or tobacco-related health factors, that were collected on or before the date of the Encounter. The data comes from the [place] facility where the Encounter took place. Date/Time Smoking Status/Tobacco Use Comment F acility Jan 13, 2018 09:49 AM LIFETIME NON-TOBACCO USER [facility] Jan 04, 2017 10:17 AM LIFETIME NON-TOBACCO USER [facility] Dec 23, 2015 08:49 AM LIFETIME NON-TOBACCO USER [facility] Nov 27, 2005 02:55 PM LIFETIME NON-TOBACCO USER patient reportssmoking only crack coccaine [facility] January 22, 2003 10:42 AM LIFETIME NON-SMOKER [facility] Aug 18, 2001 01:54 PM LIFETIME NON-TOBACCO USER pt states he has never smoked [facility] May 14, 2001 02:23 PM LIFETIME NON-SMOKER [facility] Encounter Notes: All associated encounter notes This section contains the clinical notes associated to the Encounter. Date/Time Encounter Note(s) Provider Source Jul 09, 2024 03:25 PM PHARMACY OUTPATIEN T NOTE: LOCAL TITLE: PHARMACY CLINIC NOTE STANDARD TITLE: PHARMACY OUTPATIENT NOTE DATE OF NOTE: JUL 09, 2024@15:25 ENTRY DATE: JUL 09, 2024@15:25:41 AUTHOR: ROB MATTHEW COSIGNER: URGENCY: STATUS: COMPLETED Patient Name: JESSICA BERGER was seen via [facility] for follow-up for diabetes management treatment. : Aug Age: 73 Sex: MALE Race: WHITE Subjective: Pt presents to the visit w/ his girlfriend. Pt is doing well. He started to walk daily and reports increase in strength and mobility. Per prev: Pt came in w/ his girlfriend Aphria. Pt is using a walker. He was [...] BMI Food insecurity no does occ use [facility] Physical activity: walks with rollator Carbohydrate counting: [...] peanuts 12. UTI 13. Claudication (SNOMED CT 151495162) 14. Elevated Prostate Specific antigen [psa] 15. [...] 25. Corneal Abrasion 26. Hypertension (SNOMED CT 40775674) 27. Onychomycosis * 28. Cataract, PSC/Post Subcapsular 29. Cataract, Cortical (Senile) 30. Cyst, ganglion 31. Cervical Radiculopathy 32. Shoulder Pain 33. Hyperlipidemia (SNOMED CT 27550773) 34. Old Myocardial Infarction 35. 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 (ozempic) Previous DM Medications: Adherence: Oral meds: denies missed doses Insulin: denies missed doses Labs: HEMOGLOBIN A1C TREND Collection DT Spec HGBA1c 07/07/2024 07:41 BLOOD 6.4 H 01/31/2024 07:48 BLOOD 7.2 H 10/24/2023 09:43 BLOOD 7.1 H 04/02/2023 09:09 BLOOD 9.3 H 12/18/2022 10:14 BLOOD 9.7 H CBC TREND Collection DT Spec WBC RBC HGB HCT MCV MCH PLT 07/07/2024 07:41 BLOOD 7.74 4.99 14.6 43.7 87.6 29.3 241 05/07/2024 10:37 BLOOD 6.55 4.65 13.9 41.1 88.4 29.9 200 10/24/2023 09:42 BLOOD 8.24 5.23 14.8 45.7 87.4 28.3 216 06/04/2023 07:35 BLOOD 7.93 5.18 15.1 46.3 89.4 29.2 233 04/02/2023 09:09 BLOOD 7.64 5.10 14.9 45.0 88.2 29.2 229 CHEM 7 TREND LAB CUMULATIVE SELECTED Collection DT Spec GLUCOSE BUN CREATIN Sodium K+/Pot CL CO2 07/07/2024 07:41 SERUM 200 H 24 1.59 H 137 4.9 106 24 05/07/2024 10:37 SERUM 168 H 20 1.38 138 4.1 109 22 01/31/2024 07:48 SERUM 233 H 23 1.75 H 138 4.6 106 25 10/24/2023 09:42 SERUM 96 30 H 1.50 H 140 4.4 107 26 06/04/2023 07:35 SERUM 154 H 24 1.70 H 137 4.4 104 23 Collection DT Spec eGFR 06/02/2009 13:56 SERUM >60 09/23/2008 11:52 SERUM >60 06/25/2008 11:30 SERUM >60 12/22/2007 10:35 SERUM >60 09/23/2007 09:08 SERUM >60 LAB CUMULATIVE SELECTED 2 No selection items chosen for this component. CHEM 7 Results Collection DT Spec Sodium K+/Pot CL CO2 GLUCOSE BUN eGFR 07/07/2024 07:41 SERUM 137 4.9 106 24 200 H 24 05/07/2024 10:37 SERUM 138 4.1 109 22 168 H 20 01/31/2024 07:48 SERUM 138 4.6 106 25 [...] Spec CHOL HDL CHO/HDL LDL-d LDL-c TRIG 07/07/2024 07:41 SERUM 132 34 L 3.9 76 110 10/24/2023 09:42 SERUM 111 29 L 3.8 60 112 12/18/2022 10:14 SERUM 145 41 3.5 85 97 06/08/2022 07:39 SERUM 146 31 L 4.7 67 238 H 01/18/2022 07:58 SERUM 192 38 L 5.1 118 180 H THYROID PANEL Collection DT Specimen Test Name Result Units Ref Range 07/07/2024 07:41 SERUM TSH 1.83 uIU/mL 0.35 - 5.00 11/11/2012 08:07 SERUM Free T4 SR-REF 0.85 ng/dL 0.6 - 1.6 VITAMIN D 25-OH Collection DT Specimen Test Name Result Units Ref Range 05/07/2024 10:37 SERUM VITAMIN D (25-OH) 30 ng/mL 20 - 50 SrCr (last 6 weeks): CREATININE-EGFR 07/07/24 07:41 1.59 H CRCL IBW: CrCl(est): 48.9 mL/min (Creat:1.59 07/07/24) CRCL ACT: 66.85 mL/min CRCL ADJ: 48.9 mL/min (07/07/24) Vitals: Weight (BMI): 244 lb [110.68 kg] (05/12/2024 15:44) Height: 68 in [172.7 cm] (11/07/2023 15:07) BMI: 37.2 Active and Recently Outpatient Medications (including Supplies): Active Outpatient Medications Status Active Outpatient Medications (including Supplies): CARBOXYMETHYLCELLULOSE NA 0.5% OPH SOLN INSTILL 1 DROP ACTIVE INTO EACH EYE FOUR TIMES A DAY FOR DRY EYE FLUTICASONE PROP 50MCG 120D NASAL INHL INSTILL 2 SPRAYS ACTIVE INTO EACH NOSTRIL ONCE DAILY GLUCAGON 1MG/JEY INJ EMERGENCY KIT INJECT 1 INJECTION ACTIVE INTRAMUSCULARLY ONE TIME NEEDED FOR LOW BLOOD SUGAR GLUCOSE SENSOR DEXCOM G7 USE 1 SENSOR DIRECTED EVERY 10 ACTIVE DAYS GLUCOSE SENSOR FREESTYLE ANTOINE 2 USE 1 SENSOR DIRECTED ACTIVE EVERY 14 DAYS INSULIN,ASPART(EQV-NOVLG)100UN/ML FLXPEN INJECT 30 UNITS ACTIVE SUBCUTANEOUSLY EVERY MORNING AND INJECT 27 UNITS AT NOON AND INJECT 26 UNITS EVERY EVENING FOR DIABETES INSULIN,GLARGINE-YFGN 100UNIT/ML PEN 3ML INJECT 40 UNITS ACTIVE SUBCUTANEOUSLY TWICE DAILY FOR DIABETES Non-VA ALCOHOL [...] CAP,ORAL BY MOUTH ON SATURDAY ACTIVE MEDICATION RECONCILIATION: PBLOOD GLUCOSE MONITORING 04/02/24 - no BG data pt did not bring the reader for antoine 2 Date: 07/09/24 14 day avg; 135 mg/dl 9% VERY HIGH 32% HIGH 58% IN RANGE <1% LOW 0% VERY LOW NUTRITION: Diet Patterns: patient eats on avg. [...] USE VIEW HOME SCREEN SMART DEVICE SETTINGS PIERCING MACHINE OPERATOR SET UP PIERCING MACHINE OPERATOR SET UP HOW/WHEN TO TO USE VIEW HOME SCREEN PIERCING MACHINE OPERATOR DEVICE SETTINGS VIDYA AND PIERCING MACHINE OPERATOR TREND ARROWS VIDYA AND PIERCING MACHINE OPERATOR TREND GRAPHS END SENSOR SESSION REMOVE SENSOR [...] EMAIL FOR [facility]: code provided Date: 07/09/24 Reviewed the BG levels on pt's dexcom meter time in target is improving and is now at 58%. A1C improved from 7.2% to 6.4% with few lows. The lows are likely d/t pt's increased activity level. Pt admits to walk 2.5-3 miles/ day; feels great and increased in strength and mobility. Reviewed nutrition. At this time recommend to consider changing pt back to [facility]. pt to provide 7 days worth of meal /diary for next visit. Pt declined nutrition and fit vet consult. f/up in October. DIABETES A1c is above goal of <7% - Medication management Diabetes -- insulin glargine 35 units twice daily ( 7-8 AM; 8-9 PM -- Insulin novolog 25 units TID - injects before meals - Reviewed [facility] lab results - Monitor for s/sx hypoglycemia [...] of Preventive Care: Most recent visit to trial court justice: non-VA ; last visit 1 months ago [...] from diabetic retinopathy Clinic's Next Scheduled Follow-up: 10/28/24 No barriers; Patient understands and agrees to current treatment plan. If he has any questions, concerns, or changes in current health status he will call or come in to the [facility]. FUTURE APPOINTMENTS: 07/10/2024 15:00 CWM/SO/PACT 5 11/05/2024 15:00 CWM/NO/OPTOMETRY/MERHAR 11/10/2024 15:00 CWM/NO/NEPHROLOGY/PROV 12/15/2024 15:00 NHM/OPTOMETRY/JOSELUIS DM type is : T2D Length of Visit: 35 minutes PBM PharmD Pharmacotherapy Rem V12: PHARMACIST INTERVENTIONS: TYPE 2 DIABETES MELLITUS Medication Intervention(s) Medication monitoring, no dosage change required, continue to monitor and assess /jamal/ ROB MATTHEW CLINICAL RN ANESTHESIOLOGY Signed: 07/09/2024 16:33 Receipt Acknowledged By: 07/09/2024 22:19 /es/ SHAW MOSCOSO MD PHYSICIAN ROB MATTHEWFIELD
--- OUTSIDE RECORDS SUMMARY | 2024-10-12 19:47 | XMS_ITS | Encounter Summary ---
Author Name [facility] [place] Organization [place] Address [address] [place] [address] Care Team Providers Care Assistant To The Dean Name Role Phone SHAW MOSCOSO Primary Care [...] MEDIC ARE D Sep 16, 2016 PDPIND [id number] DAYAMI BERGER IS PATIENT AETNA [facility] ([facility]) MEDICARE ADVANTAGE [facility] ([facility]) Feb 14, 2022 [id number] [phone] DAYAMI BERGER IS PATIENT MEDICAID MEDICAID [facility] Jul 17, 2015 MEDICAI D [id number] DAYAMI BERGER IS PATIENT MEDICARE (WNR) MEDICARE (M) PART A Sep 16, 2010 PART A [id number] DAYAMI BERGER IS PATIENT MEDICARE (WNR) MEDICARE (M) PART B Sep 16, 2010 PART B [id number] [phone] DAYAMI LAZCANO IS PATIENT Selected Encounter This section includes the information on record at [place] for the Encounter. Date/Time Encounter Type Encounter Description Reason Provider Source Jul 10, 2024 03:00 PM Outpatient Encounter PRIMARY CARE/MEDICINE ICD-10-CM Z00.8 Encounter for other general examination SHAW MEEHAN [place] Encounter Template Text not used by [place] Assessments - Encounter Diagnoses This section includes the primary and secondary diagnoses documented for the Encounter. Date/Time Primary/Secondary Diagnosis Diagnosis Name Provider Source Jul 10, 2024 04:15 PM PRIMARY Encounter for other general examination SHAW WATKINS [place] Jul 10, 2024 04:15 PM SECONDARY Cerebellar stroke syndrome SHAW WATKINS [place] Jul 10, 2024 04:15 PM SECONDARY Chronic kidney disease, stage 3 unspecified SHAW WATKINS [place] Jul 10, 2024 04:15 PM SECONDARY Essential (primary) hypertension SHAW WATKINS [place] Jul 10, 2024 04:15 PM SECONDARY Hyperlipidemia, unspecified AMBROSIO WATKINSDEJUANLOREN Herbert [place] Jul 10, 2024 04:15 PM SECONDARY Obesity, unspecified AMBROSIO WATKINSDEJUANLOREN Herbert [place] Jul 10, 2024 04:15 PM SECONDARY Type 2 diabetes mellitus w diabetic chronic kidney disease AMBROSIO WATKINSDEJUANLOREN Herbert [place] Jul 10, 2024 04:15 PM SECONDARY Type 2 diabetes mellitus without complications SHAW WATKINS [facility] Plan of Treatment: Future Appointments (+ [...] Date/Time Appointment Type Appointme nt Facility Name Aug 27, 2024 01:00 PM [facility] Oct 28, 2024 03:00 PM AMBULATORY - MEDICINE [place] [facility] [place] [facility] Nov 05, 2024 03:00 PM AMBULATORY - MEDICINE [facility] [place] [facility] Nov 10, 2024 03:00 PM AMBULATORY - MEDICINE [place] [facility] [facility] Dec 15, 2024 03:00 PM AMBULATORY - MEDICINE [place] [facility] [facility] Lab Results: +/- 30 days of [...] Range Comment Jul 07, 2024 07:41 AM [place] HEMOGLOBIN A1C PANEL Specimen Type: BLOOD Comment: [...] Jul 09, 2023 03:20 PM Reporting Lab: [facility] [address] [facility] [address] Performing Lab: [address] [address] HEMOGLOBIN A1C 6.4 H 4.0-5.6 Jul 07, 2024 07:41 AM [place] LIPID PANEL FASTING Specimen Type: SERUM No comment entered. Ordering Provider: AMBIKA KNIGHT Report Released Date/Time: Jul 09, 2023 03:20 PM Reporting [facility]: [facility] [address] [address] Performing Lab: [address] [address] CHOLESTEROL 132 mg/dL TRIGLYCERIDE 110 mg/dL 0-150 LDL calculated 76 mg/dL 0-129 CHOL/HDL 3.9 HDL CHOLESTEROL 34 mg/dL L 40-60 Jul 07, 2024 07:41 AM [place] LIVER FUNCTION Specimen Type: SERUM No comment entered. Ordering Provider: AMBIKA KNIGHT Report Released Date/Time: Jul 09, 2023 03:20 PM Reporting Lab: [address] [address] Performing Lab: [address] [address] PROTEIN,TOTAL 7.5 g/dL 6.0-8.3 ALBUMIN 4.2 g/dL 3.5-5.0 ALKALINE PHOSPHATASE 68 U/L 40-150 AST 23 U/L 5-34 ALT 29 U/L BILIRUBIN, TOTAL 0.4 mg/dL 0.2-1.2 Jul 07, 2024 07:41 AM [place] BASIC METABOLIC PANEL (fasting) Specime n Type: SERUM No comment entered. Ordering Provider: AMBIKA KNIGHT Report Released Date/Time: Jul 09, 2023 03:20 PM Reporting Lab: [address] [address] Performing Lab: [address] [address] UREA NITROGEN 24 mg/dL 7-25 GLUCOSE 200 mg/dL H 65-100 SODIUM 137 mmol/L 135-145 POTASSIUM 4.9 mmol/L 3.5-5.0 CHLORIDE 106 mmol/L 100-110 CO2 24 meq/L 20-30 CREATININE, Serum 1.59 mg/dL H 0.50-1.40 eGFR(CKD-EPI 2020) 46 mL/min L >60 Jul 07, 2024 07:41 AM [place] TSH Specimen Type: SERUM No comment entered. Ordering Provider: AMBIKA KNIGHT Report Released Date/Time: Jul 09, 2023 03:20 PM Reporting Lab: [address] [address] Performing Lab: [address] [address] TSH 1.83 u[IU]/mL 0.35-5.00 Jul 07, 2024 07:41 AM [place] URINALYSIS Specimen Type: URINE Comment: If Glucose = >500 and Ketones are positive, please alert the Physician. Ordering Provider: AMBIKA KNIGHT Report Released Date/Time: Jul 09, 2023 03:20 PM Reporting Lab: [address] [address] Performing Lab: [address] [address] UA COLOR Light-Yellow Yellow UA APPEARANCE Clear Clear UA GLUCOSE >1000 mg/dL Negative UA KETONES NEGATIVE mg/dL Negative UA BLOOD NEGATIVE mg/dL Negative UA PROTEIN 20 mg/dL Negative UA NITRITE NEGATIVE mg/dL Negative UA BILIRUBIN NEGATIVE mg/dL Negative UA SPECIFIC GRAVITY 1.031 H 1.016-1.022 UA pH 5.5 5.0-9.0 UA UROBILINOGEN Normal mg/dL <2.0 UA LEUKOCYTE NEGATIVE Negative Jul 07, 2024 07:41 AM [place] CBC AND DIFF (AUTO) Specimen Type: BLOOD No comment entered. Ordering Provider: AMBIKA KNIGHT Report Released Date/Time: Jul 09, 2023 03:20 PM Reporting Lab: [address] [address] Performing Lab: [address] [address] WBC 7.74 10*3/uL 4.50-11.00 RBC 4.99 10*6/uL [...] 0.0 0.0-0.0 NRBC, ABS 0.00 10*3/uL 0.00-0.00 Vital Signs: All taken on the encounter date This section contains inpatient and outpatient Vital Signs collected on the date of the Encounter. Date/Time Temperature Pulse Blood Pressure Respiratory Rate SP02 Pain Height Weight Body Mass Index Source Jul 10, 2024 03:21 PM 97.9 66 134/65 96 247.8 38 [place] Social History: Smoking Status (Most current) and [...] 03, 2019 10:28 AM VA-TOBACCO NEVER USED [place] Tobacco Use History This section includes a history of the smoking, or tobacco-related health factors, that were collected on or before the date of the Encounter. The data comes from the [place] facility where the Encounter took place. Date/Time Smoking Status/Tobacco Use Comment F acility Jan 13, 2018 09:49 AM LIFETIME NON-TOBACCO USER [place] Jan 04, 2017 10:17 AM LIFETIME NON-TOBACCO USER [place] Dec 23, 2015 08:49 AM LIFETIME NON-TOBACCO USER [place] Nov 27, 2005 02:55 PM LIFETIME NON-TOBACCO USER patient reportssmoking only crack coccaine [place] January 22, 2003 10:42 AM LIFETIME NON-SMOKER [place] Aug 18, 2001 01:54 PM LIFETIME NON-TOBACCO USER pt states he has never smoked [place] May 14, 2001 02:23 PM LIFETIME NON-SMOKER [place] Encounter Notes: All associated encounter notes This section contains the clinical notes associated to the Encounter. Date/Time Encounter Note(s) Provider Source Jul 10, 2024 03:00 PM PHYSICIAN NOTE: LOCAL TITLE: MD NOTE STANDARD TITLE: PHYSICIAN NOTE DATE OF NOTE: JUL 10, 2024@15:00 ENTRY DATE: JUL 09, 2024@23:35:51 AUTHOR: Marva MOSCOSO EXP COSIGNER: URGENCY: STATUS: COMPLETED 73 y/o M with PMH of obesity, HTN, HL, IDDM2, CAD (h/o DC, multiple stents), CKD3, GERD, BPH, ED, OA Initial visit with me Last visit with PCP Dr Knight 2022 annually PCP is PA Dr Reinoso -Skyler Wolf qfewm Other providers: -- urology Dr Saunders for BPH -- wound clinic [facility] - weekly -- cardiology [facility] - Dr Grayson scheduled -- Endocrinology and pharmacy PA -- Nephrology PA -- eye PA -- ENT PA -- podiatry non PA q2m -- non PA retina service Pa accompanied by his GF today Patient denies any complaints today He was treated for diverticulitis by none PA PCP several months ago Does not remember when he had last colonoscopy Denies any bloody or black stools, change in bowel movements, weight loss Sister with history of colon cancer Patient will schedule colonoscopy through non PA PCP using private insurance #CAD/HTN/HL compliant with medications denies CP/SOB/DALTON/palpitations/dizzi ness /claudication h/o DC, PCI multiple stents #DM2 well controlled [facility] #BPH, ED sx well controlled f/w non [place] urology #GERD:well controlled Sx on PPI PAST MEDICAL HISTORY: --Allergy to peanuts --obesity --HTN --HL --DM2 with Proliferative retinopathy and Peripheral neuropathy --CAD 1. Rca bare metal stent 04/25.LVgram hypokinesis/akinesis infero 2. Lateral region ef 50%. pharm. myocardial scan negative for 3. Significant ischemia 06/28 --Old Myocardial Infarction '04 s/p 1 stent with 60% blockage still in another vessel S/p RCA stent 04/25. nuclear stress test 05/26 no new ischemia --Cerebellar stroke syndrome 03/2020 d/c summary scanned into [facility] --PVD --CKD3 --GERD EGD 04/26 inflammation duodenum/ge junction c/w gerd --BPH --Elevated PSA, prostate biopsy negative 2012 --ED --MRSA SKIN INFECTION, Onset 04/26/2009 --Onychomycosis --Cyst, ganglion --Cervical Radiculopathy 1. S/p spinal surgery c7-t1. mri 07/21 celena shows broad based 2. Osteophyte complex mild mass effect on left and minimal 3. Mass effect on right. prior surgery site without recurrent 4. Herniation --OA --LBP Mri ls spine 06/28/19 scanned into [facility] --Shoulder Pain --Depressive Disorder PAST SURGICAL HISTORY: --S/p spinal surgery c7-t1 --Cataract Extraction ALLERGIES: GABAPENTIN, PEANUTS MEDICATIONS: getting only insulin through the [facility] --Non-VA APIXABAN 5MG BID --Non-VA ASPIRIN 81MG --Non-VA ROSUVASTATIN NA 40MG --Non-VA MIDODRINE HCL 10MG BID --Non-VA METOPROLOL TARTRATE 12.5MG TWICE DAILY --INSULIN,GLARGINE-YFGN 100UNIT/ML PEN 3ML INJECT 35 ACTIVE UNITS SUBCUTANEOUSLY TWICE DAILY FOR DIABETES --INSULIN,ASPART(EQV-NOVLG)10 0UN/ML FLXPEN INJECT 21 PENDING UNITS SUBCUTANEOUSLY THREE TIMES A DAY --Non-VA EMPAGLIFLOZIN 25MG DAILY --Non-VA PANTOPRAZOLE NA 40MG --Non-VA FINASTERIDE 5MG --NON VA TADALAFIL 5mg daily --NON VA terazosine --NON GAbapentin 100mg TID prn --NON VA Vicodin 5mg BID prn --NON VA Mg 400mg daily --Non-VA CHOLECALCIF 25MCG --Non-VA VITAMIN B12 FAMILY HISTORY: --DM: father --Cancer: sister colon cancer at 74 --DC: mother d DC 63 --CVA: father SOCIAL HISTORY: --Occupation: retired --Cohabitation: lives with his 52 y/o son he has a girlfriend who works for his primary care doctor --Children: 4 --Diet: Regular --Exercise: walking 2.5 miles daily --Caffeine: no --EtOH:no --Tob: never --MJ: no --Illicits: Cocaine abuse, He stopped all substance abuse @04/2010 --Sexual activity: monogamous --Eye: UTD --Dental: UTD --Hospitalizations: 02/2024 cellulitis [facility] for 5 days ROS: Constitutional: no fever/no chills, no ns Eyes: no decreased vision/blurry vision Ears/Nose/Throat: no hearing change Respiratory: no cough/wheezing/SOB Cardiovascular: no CP /palpitations Gastrointestinal: no abdominal pain/bloody/black stools :no dysuria/hematuria/trouble voiding MSK: no joint pain/myalgia Neuro: no dizziness/H/A Skin: no pruritus/rash ambulates with a walker PHYSICAL EXAM: Vital Signs: Blood Pressure: 134/65 (07/10/2024 15:21) Patient Height: 68 in [172.7 cm] (11/07/2023 15:07) Patient Weight: BMI 37 247.8 lb [112.40 kg] (07/10/2024 15:21) Pulse: 66 (07/10/2024 15:21) Respiration: 16 Temperature: 97.9 F [36.6 C] (07/10/2024 15:21) Gen: pleasant, engaged, NAD Chest/CV: RRR Lungs: CTA B/L Abdomen: obese, Soft, NT, ND Extremities: wwp, no edema, R leg dressing on LABORATORY (Discussed with the patient):06/2024 WBC: 7.74 HGB: 14.6 HCT: 43.7 MCV: 87.6 PLT: 241 TSH (Access): 1.83 HGB A1C (WR): 6.4 H GLUCOSE: 200 H UREA NITROGEN: 24 CREATININE-EGFR: 1.59 H --> stable eGFR CKD-EPI 2020: 46 L SODIUM: 137 POTASSIUM: 4.9 CHLORIDE: 106 CO2: 24 PROTEIN,TOTAL: 7.5 ALBUMIN: 4.2 ALKALINE PHOSPHATASE: 68 BILIRUBIN,TOT.: 0.4 SGOT: 23 SGPT: 29 CHOLESTEROL: 132 TRIGLYCERIDE: 110 LDL CHOL: 76 CHOL/HDL RATIO: 3.9 HDL: 34 L U/A negative except for glucosuria, patient on Jardiance ASSESSMENT/PLAN: 73 y/o M with PMH of obesity, HTN, HL, IDDM2, CAD (h/o DC, multiple stents), CKD3, GERD, BPH, ED, OA #obesity BMI 37 -declined referral to [facility] program #HTN: well controlled on current regimen #HL: LDL 76 pt on rosuvastatin 40mg hs #DM2: Well-controlled A1c 6.4 c/w basal insulin 35 units twice daily ( 7-8 AM; 8-9 PM c/w bolus insulin 25 units TID AC eye: Proliferative retinopathy due to type 2 diabetes mellitus: continue injections and other tx for diabetic eye changes.-followed closely by [facility] every 6 weeks foot:f/w non PA podiatry #CAD: (h/o DC, multiple stents)- today normotenisve, euvolemic pt asymptomatic #Cerebellar stroke syndrome: clinically stable w/o evidence of recurrence #CKD3: clinically stable -f/u w PA nephrology Healthcare maintenance: --Lipids: LDL 76 (06/2024) --Diabetes: A1c 6.4 (06/2024) --Colon CA (45-): Colonoscopy 04/26 tics in sigmoid, '15 dr galloway +polyps pt recetnly rx for diverticulitis by non PA PCP and plan is to get referral to GI for colonoscopy- pt will need to hold doac for 2 days, in the past he had CVA while holding DOAC for 7 days for back surgery. no colonoscopy records from 2014 available for review today. pt will arrange colonoscopy through non PA PCP --Lung CA: --PSA: PSA 1.68 (2021) --AAA (smoker/65): --Influenza (yrly): --COVID: 2020 x3 --PCV13: 2019 --PCV23: 2020 --HZV (>60yrs, x1): 2013 --RZV (>50yrs, x2): 2018 --TDAP: 2021 --Hep C screen: 2011 negative --HIV screen: --DEXA: --Advanced Directives: Comanagement - prefers to have most aspects of health maintenance, chronic condition(s) and medication management to non-VA PCP. Address at next visit: Return to clinic to see me in 12___ months, sooner PRN. Virtual ( ), F2F ( x ) ( )non fasting labs ordered prior to f/u ( x)fasting labs ordered prior to f/u ( )no labs needed ( )request labs from outside provider ( )request records from outside providers Medication Reconciliation: Outpatient: Has the patient been taking medications as documented in the EMLR? No: Discrepencies were identified. See below. Essential Medication List for Review used to complete this medication reconciliation. INCLUDED IN THIS LIST: Alphabetical list of active outpatient prescriptions dispensed from this PA (local) and dispensed from another PA or [facility] facility (remote) as well as inpatient orders (local, pending and active), local clinic medications, locally documented non-VA medications, and local prescriptions that have or been discontinued in the past 90 days. - Discrepancies were identified, addressed, and discussed with the patient/caregiver at this encounter. Discrepancies: chart updated - All changes in medications, including all non-VA/Herbal/OTC medications were entered into CPRS. - If there were any medications the patient should no longer take, they were discontinued. - The patient/caregiver was instructed to update this list, discard old lists, and take this list to the next appointment, whether with a VA or non-VA provider. /jamal/ SHAW MOSCOSO MD PHYSICIAN Signed: 07/10/2024 16:15 ROLO MOSCOSO [place]
--- OUTSIDE RECORDS SUMMARY | 2024-10-12 19:47 | XMS_ITS | Encounter Summary ---
Author Name [facility] [place] Organization [place] Address [address] [place] [address] Care Team Providers Care Refinery Operator Light Ends Recovery Name Role Phone SHAW MOSCOSO Primary Care [...] MEDIC ARE D Sep 16, 2016 PDPIND [id number] [phone] DAYAMI BERGER IS PATIENT AETNA [facility] MEDICARE ADVANTAGE [facility] Feb 14, 2022 [id number] [phone] DAYAMI BERGER IS PATIENT MEDICAID MEDICAID [facility] Jul 17, 2015 MEDICAI D [id number] DAYAMI BERGER IS PATIENT MEDICARE ([place]) MEDICARE (M) PART A Sep 16, 2010 PART A [id number] DAYAMI BERGER IS PATIENT MEDICARE ([place]) MEDICARE (M) PART B Sep 16, 2010 PART B [id number] DAYAMI BERGER IS PATIENT Selected Encounter This section includes the information on record at [place] for the Encounter. Date/Time Encounter Type Encounter Description Reason Pro vider Source Dec 23, 2023 02:43 AM Outpatient Encounter ADMIN PAT ACTIVTIES (MASNONCT) IHE Encounter Template Text not used by [place] Plan of Treatment: Future Appointments (+ 6 months) and Future Tests (+/- 45 days) The Plan of Treatment section includes future care activities for the [facility] [place] [facility] This section includes future appointments and future orders which are active, pending or scheduled. Future Appointments This section includes appointments that were scheduled to occur 6 months from the date of the Encounter, up to a maximum of 20 appointments. The data comes from all [place] treatment facilities. Appointment Date/Time Appointment Type Appointme nt Facility Name February 06, 2024 03:00 PM AMBULATORY - [facility]IC[facility] [place] [facility] Mar 17, 2024 04:00 PM AMBULATORY - MEDICINE [place] [facility] [place] [facility] Apr 02, 2024 03:00 PM AMBULATORY - MEDICINE [place] [facility] [place] [facility] Apr 16, 2024 03:00 PM AMBULATORY - MEDICINE [place] [facility] [place] [facility] May 12, 2024 03:30 PM AMBULATORY - MEDICINE [place] [facility] [place] [facility] May 14, 2024 08:00 AM AMBULATORY - MEDICINE [place] [facility] [place] [facility] May 20, 2024 03:00 PM AMBULATORY - MEDICINE [facility] [place] [facility] Social History: Smoking Status (Most current) and Tobacco Use (All prior to encounter date) This section includes the most current, and the historical, smoking and tobacco- related health factors from the [place] facility where the Encounter took place. Current Smoking Status This section includes the most current smoking, or tobacco-related health factor, from the [place] facility where the Encounter took place. Date/Time Current Smoking Status Comment Facil ity Jul 09, 2023 03:03 PM VA-TOBACCO FORMER USER [place] [facility] [place] [facility] Tobacco Use History This section includes a history of the smoking, or tobacco-related health factors, that were collected on or before the date of the Encounter. The data comes from the [place] facility where the Encounter took place. Date/Time Smoking Status/Tobacco Use Comment F acility Jul 09, 2023 03:03 PM VA-TOBACCO QUIT 15 YRS OR MORE [facility] Jul 05, 2022 01:51 PM VA-TOBACCO NEVER USED [place] [facility] [place] [facility] May 11, 2021 01:18 PM [facility]-TOBACCO [facility] Encounter Notes: All associated encounter notes This section contains the clinical notes associated to the Encounter. Date/Time Encounter Note(s) Provider Source Dec 23, 2023 02:43 AM PHARMACY NOTE: LOCAL TITLE: PHARMACY CUSTOMER CARE MEDICATION RENEWAL STANDARD TITLE: PHARMACY NOTE DATE OF NOTE: DEC 23, 2023@02:43 ENTRY DATE: DEC 23, 2023@02:43:48 AUTHOR: TYRON VASQUEZ COSIGNER: URGENCY: STATUS: COMPLETED Date: Dec Division: [facility] referred by Pharmacy Call Center for medication renewal: Non-controlled/maintenan ce medication Medications requested: [id number] INSULIN,GLARGINE 100 UNT/ML 3ML SOLOSTAR This medication is discontinued per the medication profile, however the [facility] the [facility]. The [place] can be reached at to discuss further. Please review. Defer to specialty clinic To be mailed . Please review and renew if appropriate. *This note was generated by [facility]/[place] Pharmacy Customer Care. If you have any questions or need assistance, do not contact this author. Please refer all questions to your local, on-site pharmacy departments. /jamal/ TYRON VASQUEZ [facility] Occupational Therapy Assistant, [place]/Pharmacy Customer Care Signed: 12/23/2023 02:44 Receipt Acknowledged By: 12/23/2023 06:20 /jamal/ DELMER STALLINGS MD STAFF PHYSICIAN TYRON VASQUEZ [facility]
--- OUTSIDE RECORDS SUMMARY | 2024-10-12 19:47 | XMS_ITS | Encounter Summary ---
Author Name [facility] [place] Organization [facility] [place] Address [address] [place] [address] Care Team Providers Care Dryerman/Woman Name Role Phone SHAW MOSCOSO Primary Care [...] MEDIC ARE D Sep 16, 2016 PDPIND [id number] DAYAMI BERGER IS PATIENT AETNA [facility] ([facility]) MEDICARE ADVANTAGE [facility] ([facility]) Feb 14, 2022 [id number] [phone] DAYAMI BERGER IS PATIENT MEDICAID MEDICAID [facility] Jul 17, 2015 MEDICAI D [id number] DAYAMI BERGER IS PATIENT MEDICARE ([facility]) MEDICARE (M) PART A Sep 16, 2010 PART A [id number] [phone] DAYAMI BERGER IS PATIENT MEDICARE ([facility]) MEDICARE (M) PART B Sep 16, 2010 PART B [id number] DAYAMI BERGER IS PATIENT Selected Encounter This section includes the information on record at [place] for the Encounter. Date/Time Encounter Type Encounter Description Reason Pro vider Source Dec 12, 2023 08:32 PM Outpatient Encounter ADMIN PAT ACTIVTIES ([facility]ASNON[facility]) IHE Encounter Template Text not used by [place] Plan of Treatment: Future Appointments (+ 6 months) and Future Tests (+/- 45 days) The Plan of Treatment section includes future care activities for the [facility] [place] [facility] This section includes future appointments and future orders which are active, pending or scheduled. Future Appointments This section includes appointments that were scheduled to occur 6 months from the date of the Encounter, up to a maximum of 20 appointments. The data comes from all [place] treatment facilities. Appointment Date/Time Appointment Type Appointme nt Facility Name February 06, 2024 03:00 PM AM[facility]UL[facility]ORY - [facility] Mar 17, 2024 04:00 PM [facility] - [facility] Apr 02, 2024 03:00 PM [facility] [place] [facility] Apr 16, 2024 03:00 PM [facility] [place] [facility] May 12, 2024 03:30 PM [place] [place] [facility] May 14, 2024 08:00 AM [facility] [place] [facility] May 20, 2024 03:00 PM [facility] - [facility] Social History: Smoking Status (Most current) and Tobacco Use (All prior to encounter date) This section includes the most current, and the historical, smoking and tobacco- related health factors from the [place] facility where the Encounter took place. Current Smoking Status This section includes the most current smoking, or tobacco-related health factor, from the [place] facility where the Encounter took place. Date/Time Current Smoking Status Comment Facil ity Jul 09, 2023 03:03 PM VA-TOBACCO FORMER USER [place] [facility] Tobacco Use History This section includes a history of the smoking, or tobacco-related health factors, that were collected on or before the date of the Encounter. The data comes from the [place] facility where the Encounter took place. Date/Time Smoking Status/Tobacco Use Comment F acility Jul 09, 2023 03:03 PM [facility] Jul 05, 2022 01:51 PM VA-TOBACCO NEVER USED [place] [facility] May 11, 2021 01:18 PM [facility] Encounter Notes: All associated encounter notes This section contains the clinical notes associated to the Encounter. Date/Time Encounter Note(s) Provider Source Dec 12, 2023 08:32 PM PHARMACY NOTE: LOCAL TITLE: PHARMACY CUSTOMER CARE MEDICATION RENEWAL STANDARD TITLE: PHARMACY NOTE DATE OF NOTE: DEC 12, 2023@20:32 ENTRY DATE: DEC 12, 2023@20:32:34 AUTHOR: PETEY MORFIN EXP COSIGNER: URGENCY: STATUS: COMPLETED Date: Nov Division: [facility] referred by Pharmacy Call Center for medication renewal: Non-controlled/maintenanc e medication Medications requested: [id number] GLUCOSE SENSOR FREESTYLE ANTOINE 2 Defer to specialty clinic To be mailed . Please review and renew if appropriate. *This note was generated by [facility] Customer Care. If you have any questions or need assistance, do not contact this author. Please refer all questions to your local, on-site pharmacy departments. /jamal/ PETEY MORFIN CPhT SKIFF OPERATOR, MS/PHARMACY CUSTOMER CARE Signed: 12/12/2023 20:32 Receipt Acknowledged By: 12/13/2023 13:36 /jamal/ DELMER STALLINGS MD STAFF PHYSICIAN PETEY MORFIN [facility]
--- OUTSIDE RECORDS SUMMARY | 2024-10-12 19:47 | XMS_ITS | Encounter Summary ---
Author Name [facility] [facility] [place] [facility] [place] [facility] [place] Address [address] [place] [address] Care Team Providers Care Supervisor [employer] Name Role Phone SHAW MOSCOSO Primary Care [...] MEDIC ARE D Sep 16, 2016 PDPIND [id number] DAYAMI BERGER IS PATIENT AETNA [facility] ([facility]) MEDICARE ADVANTAGE [facility] ([facility]) Feb 14, 2022 [id number] [phone] DAYAMI BERGER IS PATIENT MEDICAID MEDICAID [id number] Jul 17, 2015 MEDICAI D [id number] DAYAMI BERGER IS PATIENT MEDICARE ([facility]) MEDICARE (M) PART A Sep 16, 2010 PART A [id number] [phone] DAYAMI BERGER IS PATIENT MEDICARE ([facility]) MEDICARE (M) PART B Sep 16, 2010 PART B [id number] [phone] DAYAMI BERGER IS PATIENT Selected Encounter This section includes the information on record at [place] for the Encounter. Date/Time Encounter Type Encounter Description Reason Provider Source Oct 31, 2023 03:00 PM INTRM OPH EXAM EST PATIENT OPTOMETRY ICD-10-CM E11.9 Type 2 diabetes mellitus without complications LISA HUGGINS [facility] Encounter Template Text not used by [place] Assessments - Encounter Diagnoses This section includes the primary and secondary diagnoses documented for the Encounter. Date/Time Primary/Secondary Diagnosis Diagnosis Name Provider Source Nov 03, 2023 12:13 PM PRIMARY Type 2 diabetes mellitus without complications LISA HUGGINS [place] [facility] [place] [facility] Nov 03, 2023 12:13 PM SECONDARY Presence of intraocular lens LISA HUGGINS [place] [facility] [place] [facility] Nov 03, 2023 12:13 PM SECONDARY Puckering of macula, right eye LISA HUGGINS [facility] [place] [facility] Plan of Treatment: Future Appointments (+ [...] [place] treatment facilities. Appointment Date/Time Appointment Type Appointme nt Facility Name Nov 07, 2023 03:00 PM AMBULATORY - MEDICINE [place] [facility] [place] [facility] Nov 12, 2023 03:00 PM AMBULATORY - MEDICINE [place] [facility] [place] [facility] February 06, 2024 03:00 PM AMBULATORY - MEDICINE [place] [facility] [place] [facility] Mar 17, 2024 04:00 PM AMBULATORY - MEDICINE [place] [facility] [place] [facility] Apr 02, 2024 03:00 PM AMBULATORY - MEDICINE [place] [facility] [place] [facility] Apr 16, 2024 03:00 PM AMBULATORY - MEDICINE [place] [facility] [place] [facility] Lab Results: +/- 30 days of [...] Range Comment Oct 24, 2023 09:43 AM [facility] HEMOGLOBIN A1C PANEL Specimen Type: BLOOD [...] Aug 01, 2023 09:49 AM Reporting Lab: [address] [phone] Performing Lab: [address] [address] HEMOGLOBIN A1C 7.1 H 4.0-5.6 Oct 24, 2023 09:42 AM [facility] MICROALBUMIN CREATININE RATIO PANEL Specimen Type: URINE No comment entered. Ordering Provider: LISA RAMOS Report Released Date/Time: Jun 11, 2023 03:29 PM Reporting [facility] [address] Performing Lab: [facility] [address] MICROALBUMIN/C REATININE RATIO 131.8 mg/g H 0-29.9 MICROALBUMIN,Q UANTITATIVE 11.2 mg/dL RR UNAVAIL CREATININE URINE 84.98 mg/dL Oct 24, 2023 09:42 AM [facility] FERRITIN Specimen Type: SERUM No comment entered. Ordering Provider: LISA RAMOS Report Released Date/Time: Jun 11, 2023 03:29 PM Reporting Lab: [facility] [address] Performing Lab: [place] [facility] [address] FERRITIN 120 ng/mL 20-300 Oct 24, 2023 09:42 AM [facility] BASIC METABOLIC PANEL (non-fasting) Specimen Type: SERUM No comment entered. Ordering Provider: LISA RAMOS A Report Released Date/Time: Jun 11, 2023 03:29 PM Reporting Lab: [address] [address] Performing Lab: [address] [address] UREA NITROGEN 30 mg/dL H 7-25 GLUCOSE 96 mg/dL 65-100 SODIUM 140 mmol/L 135-145 POTASSIUM 4.4 mmol/L 3.5-5.0 CHLORIDE 107 mmol/L 100-110 CO2 26 meq/L 20-30 CREATININE, Serum 1.50 mg/dL H 0.50-1.40 eGFR(CKD-EPI 2020) 49 mL/min L >60 Oct 24, 2023 09:42 AM [facility] CBC Specimen Type: BLOOD No comment entered. Ordering Provider: LISA RAMOS A Report Released Date/Time: Jun 11, 2023 03:29 PM Reporting Lab: [address] [address] Performing Lab: [place] [id number] WBC 8.24 10*3/uL 4.50-11.00 RBC 5.23 10*6/uL 4.23-5.66 HGB 14.8 g/dL 12.8-17 HCT 45.7 39.2-50.4 MCV 87.4 fL 82-99 MCHC 32.4 g/dL 30.8-35.1 PLT 216 10*3/uL 140-360 RDW-CV 13.1 12.0-16.0 MCH 28.3 pg 26.2-32.6 Oct 24, 2023 09:42 AM [facility] CALCIUM Specimen Type: SERUM No comment entered. Ordering Provider: LISA RAMOS A Report Released Date/Time: Jun 11, 2023 03:29 PM Reporting Lab: [facility]RM[facility]THTR[facility] [address] [facility] [address] Performing Lab: [facility]ITALRL TRN [facility] [address] [facility] [address] CALCIUM 9.0 mg/dL 8.5-10.2 Oct 24, 2023 09:42 AM [facility] IRON & TIBC PANEL Specimen Type: SERUM No comment entered. Ordering Provider: LISA RAMOS Report Released Date/Time: Jun 11, 2023 03:29 PM Reporting Lab: [facility]ITALRT[facility] [address] [facility] [address] Performing Lab: [facility]ITALRTAN[facility]ITAL[facility] [address] [address] TIBC 284 ug/dL 204-475 IRON 114 ug/dL 40-160 Transferrin Saturation 40.2 20.0-50.0 Oct 24, 2023 09:42 AM [facility] VITAMIN D (25-OH) Specimen Type: SERUM No comment entered. Ordering Provider: LISA RAMOS Report Released Date/Time: Jun 11, 2023 03:29 PM Reporting Lab: [facility]ITALRT[facility]ITAL[facility] [address] [facility] [address] Performing Lab: [facility]ITALRT[facility]ITALUSETS [address] [address] VITAMIN D (25-OH) 39 ng/mL 20-50 Oct 24, 2023 09:42 AM [facility] LIPID PANEL, NON FASTING Specimen Type: SERUM No comment entered. Ordering Provider: LISA RAMOS Report Released Date/Time: Jun 11, 2023 03:29 PM Reporting Lab: [facility]ITALRMARSH[facility]OUTHTRN [facility]ITALUSETS [address] [address] Performing Lab: [facility]ITALRT[facility]ITAL[facility] [address] [address] CHOLESTEROL 111 mg/dL TRIGLYCERIDE 112 mg/dL 0-150 LDL calculated 60 mg/dL 0-129 CHOL/HDL 3.8 HDL CHOLESTEROL 29 mg/dL L 40-60 Social History: Smoking Status (Most current) and Tobacco Use (All prior to encounter date) This section includes the most current, and the historical, smoking and tobacco- related health factors from the [place] facility where the Encounter took place. Current Smoking Status This section includes the most current smoking, or tobacco-related health factor, from the [place] facility where the Encounter took place. Date/Time Current Smoking Status Comment Facil ity Jul 09, 2023 03:03 PM VA-TOBACCO QUIT 15 YRS OR MORE [facility] Tobacco Use History This section includes a history of the smoking, or tobacco-related health factors, that were collected on or before the date of the Encounter. The data comes from the [place] facility where the Encounter took place. Date/Time Smoking Status/Tobacco Use Comment F acility Jul 09, 2023 03:03 PM VA-TOBACCO QUIT 15 YRS OR MORE [facility] Jul 05, 2022 01:51 PM VA-TOBACCO NEVER USED [facility] May 11, 2021 01:18 PM VA-TOBACCO NEVER USED [facility] Encounter Notes: All associated encounter notes This section contains the clinical notes associated to the Encounter. Date/Time Encounter Note(s) Provider Source Oct 31, 2023 08:38 AM OPTOMETRY NOTE: LOCAL TITLE: OPTOMETRY STUDENT NOTE STANDARD TITLE: OPTOMETRY NOTE DATE OF NOTE: OCT 31, 2023@08:38 ENTRY DATE: OCT 31, 2023@08:38:46 AUTHOR: BAUDILIO TRUJILLO EXP COSIGNER: JOSUÉ HUGGINS URGENCY: STATUS: COMPLETED OPTOMETRY STUDENT NOTE Has ADDENDA Active problems - Computerized Problem List is [...] peanuts 13. UTI 14. Claudication (SNOMED CT 440565999) 15. Elevated Prostate Specific antigen [psa] 16. Overweight (SNOMED CT 356568967) 17. Low Back Pain * 18. Hypertrophy [...] 27. Corneal Abrasion 28. Hypertension (SNOMED CT 26491527) 29. Diabetic Neuropathies 30. Onychomycosis * 31. Cataract, PSC/Post Subcapsular 32. Cataract, Cortical (Senile) 33. Background diabetic retinopathy 34. Cyst, ganglion 35. Cervical Radiculopathy 36. Shoulder Pain 37. Hyperlipidemia (SNOMED CT 43304619) 38. Old Myocardial Infarction 39. Depressive Disorder NOS Active Outpatient Medications (including Supplies): Active Outpatient Medications Status 1) FLUTICASONE PROP 50MCG 120D NASAL INHL INSTILL 2 ACTIVE SPRAYS INTO EACH NOSTRIL ONCE DAILY 2) GLUCOSE SENSOR FREESTYLE ANTOINE 2 USE 1 SENSOR ACTIVE DIRECTED EVERY 14 DAYS 3) INSULIN,ASPART(EQV-NOVLG)1 00UN/ML FLXPEN INJECT 30 ACTIVE UNITS SUBCUTANEOUSLY EVERY MORNING AND INJECT 30 UNITS AT NOON AND INJECT 26 UNITS EVERY EVENING BEFORE SUPPER 4) INSULIN,GLARGINE-YFGN 100UNIT/ML PEN 3ML INJECT 45 ACTIVE UNITS SUBCUTANEOUSLY TWICE DAILY (SAME LANTUS) 5) SKIN BARRIER WIPE TORBOT SKIN TAC USE 1 WIPE ACTIVE TOPICALLY EVERY 14 DAYS Active Non-VA Medications Status 1) Non-VA ALCOHOL [...] COMPLEX CAP,ORAL BY MOUTH ON SATURDAY ACTIVE 19 Total Medications Allergies: GABAPENTIN, PEANUTS All medications including those prescribed by outside VA's, community providers, and all OTC meds were reviewed and reconciled with patient to the best of their abilities. This 73 year old MALE is seen today for a comprehensive eye exam Chief Complaint: Pt has two pairs of broken glasses, the lenses have popped out. Pt. states that his vision is blurry, OU, at distance and near. These issues started when he started taking Ozempic about a year ago. Since then he has stopped taking ozempic. Pt. states that his visino is foggy. Pt. went to the retina doctor and got injections, he last saw them two weeks ago. Next appt is december 26. Pt. had YAG capsulotomy OS, July 24. Diabetic: YES Last A1c: 7.1, Oct 2023 Onset: about [address] Ryder manages pt's diabetic retinopathy OHx: 1. Type II diabetes 2. Mild dry eyes OU 3. Pseudophakia OU 4. refractive error OU 5. YAG capsulotomy OS, history of PCO, July 24 (-) Pain: (-) SINGH: (-) Diplopia: (-) Flashes: (+) Floaters: longstanding (-) Amaurosis Fugax/Tia's: currently no symptoms. History of Stroke x4 within the last two years (+) Eye Injury:wire in eye drilled out as a child (unsure which eye) (+) Eye Surgery: CE/PCIOL OU Focal Grid Laser OD YAG Capsulotomy OS Family Ocular History: (-) Glaucoma/ARMD/Blindness Social History: (-) Smoker/Length of Time/PPD: Current Rx with last BCVA: OD:+0.75 -1.25 90 20/20 OS:-0.75 -0.50 180 20/20 ADD:+2.50 20/20 DVA ( )sc (X)cc OD: 20/20 OS: 20/25 Pupils: PERRL (-)APD EOMs: SAFE OU, (-)Pain/Diplopia CVF (facial, peripheral): FTFC OU Subjective Refraction: OD:+0.75 -1.25 90 20/20 OS:-0.50 -0.50 180 20/25+2 ADD:+2.50 20/20 All the above performed by student, reviewed by attending Anterior segment: Performed by student, repeated by attending * Lids: trace blepharirits OU Conj: white and quiet OU Cornea: diffuse SPK OU AC: 4x4 OU Iris: flat and clear OU Lens: PCIOL OU, PCO OD superior nasal Tonometry: Performed by student, reviewed by attending * OD 18 mmHg OS 18 mmHg Time: 3:20pm Fundus exam: Dilated: 3:25pm Non dilated: Dilating Drops: 1GTT 1 % Tropicamide OU & 1GTT 2.5% Phenylephrine OU (Pt. ed. on side effects, dilation warning given and verbal consent obtained) Patient advised not to drive if they feel they have any symptoms which could affect their ability to drive safely. Patient advised not to engage in any activities which could put themselves or others at risk if they feel they have any symptoms which could affect their ability to perform those activities safely. Performed by student, repeated by attending * Vit: clear OD, PVD OS C/D: 0.40/0.40 OD, 0.40/0.40 OS Disc: Rim tissue is pink and healthy OU (-)NVD OU (-)drance hemes/notching OU Macula: ERM OD, clear OS(-)DBH/CSME OU, (-)SRF/SRH OU PPole: clear, (-)DBH/CWS/DANA/VB OU A/V: 2/3 Vessels: normal caliber OU Periph: flat and intact (-)holes, tears, detachments 360 OU, (-)NVE OU PRP Laser Scars 360 OU Assessment/Plan: 1. Type II diabetes without diabetic [...] edema and other complications from diabetic retinopathy 2.Psuedophakia OU - pt. had YAG OS jul 2023 - PCIOL clear and well centered 3. Epiretinal Membrane OD - pt. asymptomatic currently - monitor condition 4. Hyperopia with astigmatism and Presbyopia OD, Myopia with astigmatism and presbyopia OS - pt. not elligable for new frames at this time - RTC in one year for CEE and updated frames - pt. left two pairs of glasses for adjustments in office will mail the patient fixed pairs when ready. Return to Clinic 1 year or earlier PRN Patient Education: Diabetes: Patient was educated regarding diabetes and related ocular complications including retinopathy and cataract formation as well as other related systemic complications. The importance of good blood sugar control, blood sugar testing as recommended by their PCP and the importance of timely follow up were all emphasized. /jamal/ BAUDILIO TRUJILLO OPTOMETRY STUDENT Signed: 11/01/2023 07:36 /es/ Josué Huggins OD CHIEF OF OPTOMETRY Cosigned: 11/03/2023 12:13 11/03/2023 ADDENDUM STATUS: COMPLETED I saw this patient in conjunction with the student and agree with the stated findings and plan as noted below after reviewing both the history and repeating lopez elements of the physical exam now. Impression: Diabetes without retinopathy or macular edema either eye. Stressed the importance of optimize control of blood sugar, blood pressure and cholesterol with healthy lifestyle. Bilateral pseudophakia status post YAG capsulotomy left eye looks perfect. He recently received new glasses from his replaced by [facility] prescription and no change in prescription is required at this time. Trace epiretinal membrane right eye not impacting best corrected acuity at present. Plan: Patient education as noted above Reviewed exam findings now. Ordering new glasses today. Return in 12 months or sooner if need be. Ophthalmic medication reconciliation: He is currently not taking or prescribed any ocular medications. Medication Reconciliation: Outpatient: Has the patient been taking medications as documented in the EMLR? YES: The patient has been taking medications as documented in the EMLR. Essential Medication List for Review used to complete this medication reconciliation. INCLUDED IN THIS LIST: Alphabetical list of active outpatient prescriptions dispensed from this [facility] (local) and dispensed from another [place] or [facility] facility (remote) as well as [...] GABAPENTIN [facility] [place] [facility] NO KNOWN ALLERGIES Med. Reconciliation (Tool #1) INCLUDED IN THIS LIST: Alphabetical list of active outpatient prescriptions dispensed from this [place] (local) and dispensed from another [place] or [facility] facility (remote) as well as inpatient orders (local pending and active), local clinic medications, locally documented non-VA medications, and local prescriptions that have or been discontinued in the past 90 days. Non-VA Meds Last Documented On: Jan 02, 2023 NOTE The display of VA prescriptions dispensed from another [place] or [facility] facility (remote) is limited to active outpatient prescription entries matched to National Drug File at the originating site and may not include some items such as investigational drugs, compounds, etc. NOT INCLUDED IN THIS LIST: Medications self-entered by the patient into personal health records (i.e. [employer]) are NOT included in this list. Non-VA medications documented outside this [place], remote inpatient orders (regardless of status) and [...] SPRAYS INTO EACH NOSTRIL ONCE DAILY Rx# [id number] Last Released: 07/09/23 Qty/Days Supply: 10/15 Rx Expiration Date: 07/09/24 Refills Remainin Indication: FOR NASAL IRRITATION/INFLAMMATION Non-VA FLUVASTATIN NA 40MG CAP TAKE 1 CAPSULE BY MOUTH ONCE DAILY OUTPT GLUCAGON 1MG/JEY INJ EMERGENCY KIT (Status = ) INJECT 1 INJECTION INTRAMUSCULARLY ONE TIME NEEDED FOR LOW BLOOD SUGAR Rx# [id number] Last Released: 08/03/23 Qty/Days Supply: 10/15 Rx Expiration Date: 08/31/23 Refills Remainin Indication: FOR LOW BLOOD SUGAR OUTPT INSULIN,ASPART(EQV-NOVLG)1 00UN/ML FLXPEN (Status = Active) INJECT 30 UNITS SUBCUTANEOUSLY EVERY MORNING AND INJECT 30 UNITS AT NOON AND INJECT 26 UNITS EVERY EVENING BEFORE SUPPER Rx# [id number] Last Released: 08/07/23 Qty/Days Supply: Rx Expiration Date: 08/01/24 Refills Remainin Indication: FOR DIABETES OUTPT INSULIN,GLARGINE-YFGN 100UNIT/ML PEN 3ML (Status = Active) INJECT 45 UNITS SUBCUTANEOUSLY TWICE DAILY (SAME LANTUS) Rx# [id number] Last Released: 08/05/23 Qty/Days Supply: Rx Expiration Date: 08/01/24 Refills Remainin Indication: FOR DIABETES Non-VA LORATADINE [...] 1 SENSOR DIRECTED EVERY 14 DAYS Rx# [id number] Last Released: 08/24/23 Qty/Days Supply: 11/13 Rx Expiration Date: 06/07/24 Refills Remainin OUTPT GLUCOSE SENSOR FREESTYLE ANTOINE 2 (Status = Active) USE 1 SENSOR DIRECTED EVERY 14 DAYS Rx# [id number] Last Released: 10/26/23 Qty/Days Supply: 11/13 Rx Expiration Date: 08/23/24 Refills Remainin OUTPT SKIN BARRIER WIPE TORBOT SKIN TAC (Status = Active) USE 1 WIPE TOPICALLY EVERY 14 DAYS Rx# [id number] Last Released: 03/27/23 Qty/Days Supply: Rx Expiration Date: 03/23/24 Refills Remainin PHARMACY TERMS AND POSSIBLE PATIENT ACTIONS INPT = [place] inpatient order IV = [place] intravenous medication OUTPT = [place] outpatient prescription PHARMACY POSSIBLE PATIENT TERMS EXPLANATION ACTIONS -------- ------ ACTIVE A prescription that can be If you have refills, filled at the local VA pharmacy. you may request a refill of this prescription from your VA pharmacy. CLINIC A medication you received during If you have questions a visit to a VA clinic or about this medication emergency department. contact your VA healthcare team. DISCONTINUED A prescription your provider has Contact your VA stopped. It is no longer healthcare team if you available to be sent to you or need more of this picked up at the [place] pharmacy medication. window. A prescription which is [...] the VA. Or, it may be an [id number] (OTC), herbal, dietary supplements or sample medication. [...] An active prescription that is Contact your VA not scheduled to be filled yet. pharmacy if you need You should receive it before this medication now. you run out. Declines printed copy of medication list now. /jamal/ Josué Huggins OD CHIEF OF OPTOMETRY Signed: 11/03/2023 12:16 BAUDILIO TRUJILLO [place] [facility]
--- OUTSIDE RECORDS SUMMARY | 2024-10-12 19:47 | XMS_ITS ---
Author Organization [facility] Address [address] [place] [address] Care Team Providers Care Physician'S Aide Name Role Phone Manan Reinoso MD Primary Care Provider Unavailab Andrzej Pacheco Unavailable [phone] Ced Hernandez Unavailable [phone] REASON FOR VISIT Painful thick toenails which are aggrevated by shoes and causes difficulty standing/walking Medications Medication SIG (Take, Route, Frequency, Duration) Notes Start Date End Date Status Extra Depth Diabetic Shoes with 3 Pair Custom heat-molded multi-density innersoles for 1 year Dx: Active Encounters Encounter Location Date Provider Diagnosis [facility] [address] [place] [address] 04/27/2024 Ced Hernandez Type 1 diabetes mellitus [...] Provider Name:Andrzej Camargo , 11/03/2024 03:00:00 PM, [address] [place] [address], [phone], Procedure Notes * Category Sub-Category Detail Notes Keratoma Treatment Parring or Cutting o f Benign Hyperkeratotic Lesion(s) 56715 ( >4 Lesions) - The Benign hyperkeratotic [...] as necessary. Patient chooses, no pharmaceutical tx (42396) Nail Reduction Nail Reduction Trimming of dyst rophic nails performed to reduce/remove overall nail length and girth, by manual and electrical means with use of a nail nipper and/or dremel, to more viable healthy nail plate or bed tissue 6-10 (G0127) Progress Notes * Kirby CHRISTIANSONDOB:1950 ( 74 yo M)Acc No.[id number]:04/27/2024 Progress Note Patient:?Kirby CHRISTIANSON Provider:?Ced Hernandez DPM :1950???Age:73 Y???Sex:Male Jason e:04/27/2024 Address:[address] [place] [address], [facility] Pcp:Manan Reinoso MD Subjective: * Chief Complaints: * ???1. Painful thick toenails which are aggrevated by shoes and causes difficulty standing/walking. * HPI: ???At Risk footcare:?Pt States Last PCP Visit:?Date?12/16/2023 ???Skin problems:?Location:?Bottom, Left , 1st.?Duration:?several months.?Onset/Cause:?shoegear.?Course:?improved.?Aggravated by:?no aggrevating factors.?Treatments:?pt has new dm shoes and inserts from 05/08 from [facility].?Painful Nails:?Pt States Last PCP Visit:?Date:?09/18/2022 * ROS:?General/Constitutional:?Nausea?denies.?Vomiting?denies.?Hunger Thirst?denies.?Loss appetite?denies.?Chills?denies.?Fatigue?denies.?Fever?denies.?Night Sweats?denies.?Unexplained weight loss?denies.?Unexplained weight gain?denies.?HEENTM:?Dentures?denies.?Dizziness?denies.?Glasses/contacts?denies.?Retinopathy?de nies.?Blurred/double vision?denies.?TMJ?denies.?Discharge/drainage?denies.?Implants?denies.?Sore throat?denies.?Dental implants?denies.?Hard of hearing ?denies.?Difficulty chewing/swallowing/speaking?denies.?Nose bleeds?denies.?Sore mouth?denies.?Respiratory:?On Oxygen?denies.?Pneumonia/pleurisy?denies.?Bronchitis?denies.?Emphysema?denies.?C oughing?denies.?Cough blood?denies.?Shortness of breath?denies.?Wheezing?denies.?Cardiovascular:?Pacemaker?denies.?MVP?denies.?WPW?denies.?CHF?denies.?Heart attack?denies.?Septal defect?denies.?Rapid beat?denies.?Chest pain ?denies.?Atrial Fib.?denies.?Murmur/Palpitations?denies.?Gastrointestinal:?Hemorrhoids?denies.?Stomach/Abdominal pain?denies.?Dark blood stool?denies.?Irritable bowel ?denies.?Constipation?denies.?Diarrhea?denies.?Hematology:?Swelling?denies.?Clots?denies.?Varicose Veins?denies.?Bruising?denies.?Bleeding problem?denies.?Genitourinary:?Blood urine?denies.?Frequent/Painfu/urination/bladder control?denies.?Kidney stones?denies.?Infection (UTI)?denies.?Nephropathy?denies.?sex trans dis (STD)?denies.?Prostate?denies.?Musculoskeletal:?Hammertoes?denies.?Bunions?denies.?Back Pain?admits.?Muscle Cramps/ Resting?denies.?Muscle cramps / walking?denies.?Generalized aches and pains?denies.?Weakness?denies.?Integ.:?Ray?denies.?Scars?denies.?Corns/calluses?denies.?Ingrown nails?denies.?Painful nails?denies.?Open Sores?admits.?Rashes?denies.?Neurologic:?Difficulty sleeping?denies.?Brain disorder?denies.?Numbness?denies.?Balance trouble?admits.?Confusion?denies.?Fainting/blackouts?denies.?Tingling?denies.?Tr emors?denies.? * Medical History:? Objective: * Vitals:? * Examination: ???Ophthalmology Referral: ?DIABETES EYE EXAM?Neurological: ?SENSORY:? Neurological exam demonstrates, reduced vibration sensation, 5.07 monofilament test performed at plantar aspects of 5 varied sites per foot shows sensation, reduced , B/L.?Vascular: ?DP PULSES (B):? 09/19, B/L.?PT PULSES (B):? 09/19, B/L.?CAPILLARY FILL TIME:?3 secs. per digit. 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 Plan: * Treatment: * Procedures:?Debride Nails 1-5:?Procedure:?Nail debridement performed extensively to reduce/remove overall nail length and girth, subungual debris, and necrotic tissue, by manual and electrical means by use of a nail nipper and/or dremel, to more viable healthy nail plate or bed tissue 1-5. Silver nitrate used for any petechial bleeding as necessary. Patient chooses, no pharmaceutical tx (80398).?Keratoma Treatment:?Parring or Cutting of Benign Hyperkeratotic Lesion(s)?85754 ( >4 Lesions) - The Benign hyperkeratotic lesions, as described above were pared, and/or cut utilizing a sterile #15 blade, tissue nippers, and/or dremel.?Nail Reduction:?Nail Reduction?Trimming of dystrophic nails performed to reduce/remove overall nail length and girth, by manual and electrical means with use of a nail nipper and/or dremel, to more viable healthy nail plate or bed tissue 6-10 (G0127).? * Procedure Codes:?00293 TRIM SKIN LESIONS, OVER 4, Modifiers: XS , 35149 DEBRIDE NAIL, 1-5, Modifiers: XS , G0127 TRIMMING DYSTROPHIC NAILS ANY #, Modifiers: XS * Follow Up:?3 Months * Images: * The named appointment provid er may or may not be the originator of this progress note, and it is not deemed complete until electronically signed by the appointment provider. Sign off status: Pending * Provider:?Ced Hernandez DPM Date:? 024 Generated for Zachary wells/Concepcion/eTransmitting on:?10/12/2024 07:47 PM EST History and Physical Notes * [...] Screening:: Yes 10/2022 Vascular DP PULSES (B): 09/19, B/L PT PULSES (B): 09/19, B/L CAPILLARY FILL TIME: 3 secs. per [...]
--- OUTSIDE RECORDS SUMMARY | 2024-10-12 19:47 | XMS_ITS | Encounter Summary ---
Author Name [facility] Organization [facility] [place] Address [address] [place] [address] Care Team Providers Care Forming Press Operator Name Role Phone SHAW MOSCOSO Primary Care [...] MEDIC ARE D Sep 16, 2016 PDPIND [id number] DAYAMI BERGER IS PATIENT AETNA [facility] ([facility]) MEDICARE ADVANTAGE [facility] ([facility]) Feb 14, 2022 [phone] DAYAMI BERGER IS PATIENT MEDICAID MEDICAID [facility] Jul 17, 2015 MEDICAI D [id number] DAYAMI BERGER IS PATIENT MEDICARE ([facility]) MEDICARE ([place]) PART A Sep 16, 2010 PART A [id number] DAYAMI BERGER IS PATIENT MEDICARE ([facility]) MEDICARE ([place]) PART B Sep 16, 2010 PART B [id number] [phone] DAYAMI BERGER IS PATIENT Selected Encounter This section includes the information on record at [place] for the Encounter. Date/Time Encounter Type Encounter Description Reason Pro vider Source Sep 11, 2024 03:24 PM Outpatient Encounter ADMIN PAT ACTIVTIES (MASNONCT) IHE Encounter Template Text not used by [place] Plan of Treatment: Future Appointments (+ 6 months) and Future Tests (+/- 45 days) The Plan of Treatment section includes future care activities for the patient [facility] all [place] [facility] This section includes future [...] 28, 2024 03:00 PM AMBULATORY - [facility] Nov 05, 2024 03[facility]00 PM [facility] - [facility]ICINE [facility] [place] [facility] Nov 10, 2024 03:00 PM AMBULATORY - MEDICINE [facility] [place] [facility] Dec 15, 2024 03:00 PM AMBULATORY - MEDICINE [facility] [place] [facility] Social History: Smoking Status (Most [...] 09, 2023 03:03 PM [facility] [place] [facility] Tobacco Use History This section includes a history of the smoking, or tobacco-related health factors, that were collected on or before the date of the Encounter. The data comes from the [place] facility where the Encounter took place. Date/Time Smoking Status/Tobacco Use Comment F acility Jul 09, 2023 03:03 PM VA-TOBACCO QUIT 15 YRS OR MORE [facility] Jul 05, 2022 01:51 PM VA-TOBACCO NEVER USED [place] [facility] May 11, 2021 01:18 PM VA-TOBACCO NEVER USED [facility] Encounter Notes: All associated encounter notes This section contains the clinical notes associated to the Encounter. Date/Time Encounter Note(s) Provider Source Sep 11, 2024 03:24 PM PHARMACY NOTE: LOCAL TITLE: PHARMACY CUSTOMER CARE MEDICATION RENEWAL STANDARD TITLE: PHARMACY NOTE DATE OF NOTE: SEP 11, 2024@15:24 ENTRY DATE: SEP 11, 2024@15:24:10 AUTHOR: GERI BLANCO EXP COSIGNER: URGENCY: STATUS: COMPLETED Date: Aug Division: [facility] referred by Pharmacy Call Center for medication renewal: Non-controlled/maintenanc e medication Medications requested: [id number] GLUCOSE SENSOR DEXCOM G7 Defer to specialty clinic To be mailed . Please review and renew if appropriate. *This note was generated by [facility] [facility]. If you have any questions or need assistance, do not contact this author. Please refer all questions to your local, on-site pharmacy departments. /jamal/ GERI BLANCO CPhT Senior Interaction Designer, [place] Signed: 09/11/2024 15:24 Receipt Acknowledged By: 09/11/2024 15:33 /jamal/ DELMER STALLINGS MD STAFF PHYSICIAN GERI BLANCO [facility]
--- OUTSIDE RECORDS SUMMARY | 2024-10-12 19:47 | XMS_ITS ---
Author Name [facility] [place] Organization [facility] [place] [place] Address [address] [place] [address] Care Team Providers Care Shoe Designer Name Role Phone SHAW MOSCOSO Primary Care [...] MEDIC ARE D Sep 16, 2016 PDPIND [id number] DAYAMI BERGER IS PATIENT AETNA [facility] ([facility]) MEDICARE ADVANTAGE [facility] ([facility]) Feb 14, 2022 [id number] [phone] DAYAMI BERGER IS PATIENT MEDICAID MEDICAID [facility] Jul 17, 2015 MEDICAI D [id number] DAYAMI BERGER IS PATIENT MEDICARE ([facility]) MEDICARE (M) PART A Sep 16, 2010 PART A [id number] [phone] DAYAMI BERGER IS PATIENT MEDICARE ([facility]) MEDICARE (M) PART B Sep 16, 2010 PART B [id number] [phone] DAYAMI BERGER IS PATIENT Selected Encounter This section includes the information on record at [place] for the Encounter. Date/Time Encounter Type Encounter Description Reason Provider Source May 14, 2024 08:00 AM Outpatient Encounter GENERAL INTERNAL MEDICINE ICD-10-CM Z02.89 Encounter for other administrative examinations VIRGILIORENÉ HERRERA [facility] Encounter Template Text not used by [place] Assessments - Encounter Diagnoses This section includes the primary and secondary diagnoses documented for the Encounter. Date/Time Primary/Secondary Diagnosis Diagnosis Name Provider Source May 14, 2024 08:45 AM PRIMARY Encounter for other administrative examinations [facility] [place] [facility] Plan of Treatment: Future Appointments [...] [place] treatment facilities. Appointment Date/Time Appointment Type Appointme nt Facility Name May 20, 2024 03:00 PM AMBULATORY - [place]ICINE [place] [facility] [place] [facility] Jun 25, 2024 03:00 PM [place] [facility] [facility] Jul 09, 2024 03:00 PM [place] [facility] [facility] Jul 10, 2024 03:00 PM AMBULATORY - MEDICINE [facility] Aug 27, 2024 01:00 PM [place] [facility] Oct 28, 2024 03:00 PM [place] [facility] [facility] Nov 05, 2024 03:00 PM [place] [facility] [facility] Nov 10, 2024 03:00 PM [place] [facility] [facility] Lab Results: +/- 30 days [...] Range Comment May 08, 2024 08:12 AM [place] [facility] [place] [facility] MICROALBUMIN CREATININE RATIO PANEL Specimen Type: URINE No comment entered. Ordering Provider: JOVI RAMOS Report Released Date/Time: Nov 12, 2023 03:09 PM Reporting [facility] [place] [facility] [address] [facility] [address] Performing Lab: [place] [facility] [place] [facility] [address] [facility] [address] MICROALBUMIN/C REATININE RATIO 116.9 mg/g H 0-29.9 MICROALBUMIN,Q UANTITATIVE 11.6 mg/dL RR UNAVAIL CREATININE URINE 99.23 mg/dL May 07, 2024 10:37 AM [place] [facility] [place] [facility] PO4 Specimen Type: SERUM No comment entered. Ordering Provider: JOVI RAMOS Report Released Date/Time: Nov 12, 2023 03:09 PM Reporting Lab: [facility] [place] [facility] [address] [facility] [address] Performing Lab: [facility] [place] [facility] [address] [facility] [address] PO4 2.4 mg/dL L 2.5-5.0 May 07, 2024 10:37 AM [facility] [place] [facility] PTH INTACT Specimen Type: SERUM No comment entered. Ordering Provider: JOVI RAMOS Report Released Date/Time: Nov 12, 2023 03:09 PM Reporting Lab: [facility] [place] [facility] [address] [facility] [address] Performing Lab: [facility] [place] [facility] [address] [facility] [address] PTH INTACT 99.2 pg/mL H 10-65 May 07, 2024 10:37 AM [facility] [place] [facility] VITAMIN D (25-[place]) Specimen Type: SERUM No comment entered. Ordering Provider: JOVI RAMOS Report Released Date/Time: Nov 12, 2023 03:09 PM Reporting Lab: [place] [facility] [place] [facility] [address] [facility] [address] Performing Lab: [facility] [place] [facility] [address] [facility] [address] VITAMIN D (25-[place]) 30 ng/mL 20-50 May 07, 2024 10:37 AM [facility] CALCIUM Specimen Type: SERUM No comment entered. Ordering Provider: JOVI RAMOS Report Released Date/Time: Nov 12, 2023 03:09 PM Reporting Lab: [facility] [place] [facility] [address] [facility] [address] Performing Lab: [facility] [address] [address] CALCIUM 9.0 mg/dL 8.5-10.2 May 07, 2024 10:37 AM [facility] MAGNESIUM Specimen Type: SERUM No comment entered. Ordering Provider: JOVI RAMOS Report Released Date/Time: Nov 12, 2023 03:09 PM Reporting Lab: [facility] [place] [facility] [address] [facility] [address] Performing Lab: [facility] [place] [address] [address] MAGNESIUM 1.8 mg/dL 1.6-2.6 May 07, 2024 10:37 AM [facility] ALBUMIN Specimen Type: SERUM No comment entered. Ordering Provider: JOVI RAMOS Report Released Date/Time: Nov 12, 2023 03:09 PM Reporting Lab: [facility] [place] [facility] [address] [facility] [address] Performing Lab: [facility] [address] [address] ALBUMIN 3.8 g/dL 3.5-5.0 May 07, 2024 10:37 AM [facility] FERRITIN Specimen Type: SERUM No comment entered. Ordering Provider: JOVI RAMOS Report Released Date/Time: Nov 12, 2023 03:09 PM Reporting Lab: [facility] [place] [facility] [address] [facility] [address] Performing Lab: [facility] [address] [address] FERRITIN 157 ng/mL 20-300 May 07, 2024 10:37 AM [facility] ALKALINE PHOSPHATASE Specimen Type: SERUM No comment entered. Ordering Provider: JOVI RAMOS Report Released Date/Time: Nov 12, 2023 03:09 PM Reporting Lab: [facility] [address] [facility] [address] Performing Lab: [facility]N [facility]ITALUSE[address] [address] ALKALINE PHOSPHATASE 72 U/L 40-150 May 07, 2024 10:37 AM [facility] IRON & TIBC PANEL Specimen Type: SERUM No comment entered. Ordering Provider: JOVI RAMOS Report Released Date/Time: Nov 12, 2023 03:09 PM Reporting Lab: [facility]N [facility] [address] [address] Performing Lab: [facility]ITALUSE[address] [address] TIBC 267 ug/dL 204-475 IRON 64 ug/dL 40-160 Transferrin Saturation 24.0 20.0-50.0 May 07, 2024 10:37 AM [facility] CBC Specimen Type: BLOOD No comment entered. Ordering Provider: JOVI RAMOS Report Released Date/Time: Nov 12, 2023 03:09 PM Reporting Lab: [facility]TRN [facility] [address] [address] Performing Lab: [facility]N [facility]ITAL[facility]ETS [address] [address] WBC 6.55 10*3/uL 4.50-11.00 RBC 4.65 10*6/uL 4.23-5.66 HGB 13.9 g/dL 12.8-17 HCT 41.1 39.2-50.4 MCV 88.4 fL 82-99 MCHC 33.8 g/dL 30.8-35.1 PLT 200 10*3/uL 140-360 RDW-CV 15.0 12.0-16.0 MCH 29.9 pg 26.2-32.6 May 07, 2024 10:37 AM [facility] BASIC METABOLIC PANEL (non-fasting) Specimen Type: SERUM No comment entered. Ordering Provider: JOVI RAMOS Report Released Date/Time: Nov 12, 2023 03:09 PM Reporting Lab: [facility] [address] [facility] [address] Performing Lab: [facility] [address] [facility] [address] UREA NITROGEN 20 mg/dL 7-25 GLUCOSE 168 mg/dL H 65-100 SODIUM 138 mmol/L 135-145 POTASSIUM 4.1 mmol/L 3.5-5.0 CHLORIDE 109 mmol/L 100-110 CO2 22 meq/L 20-30 CREATININE, Serum 1.38 mg/dL 0.50-1.40 eGFR(CKD-EPI 2020) 54 mL/min L >60 Social History: Smoking Status (Most current) and Tobacco Use (All prior to encounter date) This section includes the most current, and the historical, smoking and tobacco- related health factors from the [place] facility where the Encounter took place. Current Smoking Status This section includes the most current smoking, or tobacco-related health factor, from the [place] facility where the Encounter took place. Date/Time Current Smoking Status Comment Facil ity Jul 09, 2023 03:03 PM VA-TOBACCO QUIT 15 YRS OR MORE [facility] Tobacco Use History This section includes a history of the smoking, or tobacco-related health factors, that were collected on or before the date of the Encounter. The data comes from the [place] facility where the Encounter took place. Date/Time Smoking Status/Tobacco Use Comment F acility Jul 09, 2023 03:03 PM VA-TOBACCO QUIT 15 YRS OR MORE [facility] Jul 05, 2022 01:51 PM VA-TOBACCO NEVER USED [facility] May 11, 2021 01:18 PM VA-TOBACCO NEVER USED [facility] Encounter Notes: All associated encounter notes This section contains the clinical notes associated to the Encounter. Date/Time Encounter Note(s) Provider Source May 14, 2024 08:00 AM C & P EXAMINATION NOTE: LOCAL TITLE: COMPENSATION AND PENSION EXAM STANDARD TITLE: C & P EXAMINATION NOTE DATE OF NOTE: MAY 14, 2024@08:00 ENTRY DATE: MAY 14, 2024@08:36:04 AUTHOR: ROXANNE LLANES COSIGNER: URGENCY: STATUS: COMPLETED Sleep Apnea Disability Benefits Questionnaire Name of patient/: JESSICA BERGER ([id number]) Is this DBQ being completed in conjunction with a [place] [id number], C&P Examination Request? [X] Yes [ ] No How was the examination completed? (check all that apply) [ ] In-person examination [X] Records reviewed [ ] Examination via approved video telehealth [ ] Other, please specify in comments box Comments: * 12/31/2023 'S CLAIM: - Sleep apnea secondary to tinnitus KERRI and Evidence Review Indicate method used to obtain medical information to complete this document: [X] Review of available records (without in-person or video telehealth examination) using the Acceptable Clinical Evidence (KERRI) process because the existing medical evidence provided sufficient information on which to prepare the questionnaire and such an examination will likely provide no additional relevant evidence. Evidence Review Evidence reviewed (check all that apply): [X] [place] e-folder [X] [place] electronic health record [X] Other, please identify other evidence reviewed. VBMS, JLV, VISTAIMAGING, CPRS Evidence Comments: * 04/06/2024 VBA RATING DECISION: - Service connection for tinnitus is granted. 1. Diagnosis Does the have or has he/she ever had sleep apnea? [X] Yes [ ] No [X] Obstructive Date of diagnosis: 11/17/2015 per polysomnogram 2. Medical history a. Describe the history (including onset and course) of the 's sleep disorder condition (brief summary): REVIEW OF AVAILABLE MEDICAL EVIDENCE: * 05/12/2024 NEPHROLOGY NOTE: He says he still uses his CPAP machine at night. EXAM: Obese male. Abdomen: increased abdominal girth. WEIGHT = 244 LBS. * 10/15/2018 WEIGHT = 237.5 LBS. * 12/10/2017 POLYSOMNOGRAM: AHI of 17 events per hour. Moderate degree of Obstructive Sleep Apnea * 10/29/2016 WEIGHT = 240.3 LBS. * 07/31/2016 Polysomnogram Treatment [place]. Study showed successful trail of nasal CPAP * 12/23/2015 WEIGHT = 232.7 LBS * 11/17/2015 PRIVATE POLYSOMNOGRAM: Dx moderate degree of obstructive sleep apnea. Weight 235 pounds. * 02/17/2013 WEIGHT = 248.1 LBS. * 01/17/2012 WEIGHT = 240.9 LBS. * 10/31/2011 WEIGHT = 227.1 LBS * 12/15/1998 WEIGHT = 231 LBS. * 12/01/1973 DATE OF RELIEF FROM ACTIVE DUTY PER DD214 * 12/01/1973 STR SEPATATION MEDICAL EXAM: Medical: tonsillectomy age [age] years old. height 68 inches weight 170 lbs. Self Assessment: no frequent trouble sleeping. * 03/04/1972 DATE ENTERED ACTIVE DUTY PER DD214 * 10/31/1971 STR PREINDUCTION EXAM: Medical: Height 66 inches. Weight 160 lbs. b. Is continuous medication required for control of a sleep disorder condition? [ ] Yes [X] No c. Does the [place] require the use of a breathing assistance device? [ ] Yes [X] No d. Does the [place] require the use of a continuous positive airway pressure (CPAP) machine? [X] Yes [ ] No 3. Findings, signs and symptoms ------- Does the [place] currently have any findings, signs or symptoms attributable to sleep apnea? [ ] Yes [X] No 4. Other pertinent physical findings, complications, conditions, signs, symptoms and scars a. Does the [place] have any other pertinent physical findings, complications, conditions, signs or symptoms related to any conditions listed in the Diagnosis Section above? [X] Yes [ ] No If yes, describe (brief summary): BMI > 30 b. Does the have any scars (surgical or otherwise) related to any conditions or to the treatment of any conditions listed in the Diagnosis Section above? [ ] Yes [X] No c. Comments, if any: N/A 5. Diagnostic testing a. Has a sleep study been performed? [X] Yes [ ] No If yes, does the [place] have documented sleep disorder breathing? [X] Yes [ ] No Date of sleep study: 11/17/2015 Facility where sleep study performed, if known: [facility] Results: AHI OF 24. Moderate obstructive sleep apnea b. Are there any other significant diagnostic test findings and/or results? [ ] Yes [X] No 6. Functional impact Does the [place]'s sleep apnea impact his or her ability to work? [ ] Yes [X] No 7. Remarks, if any: NO ADDITIONAL COMMENTS Medical Opinion Disability Benefits Questionnaire Name of patient/: JESSICA BERGER ([id number]) KERRI and Evidence Review Indicate method used to obtain medical information to complete this document: [X] Review of available records (without in-person or video telehealth examination) using the Acceptable Clinical Evidence (KERRI) process because the existing medical evidence provided sufficient information on which to prepare the questionnaire and such an examination will likely provide no additional relevant evidence. Evidence Review Evidence reviewed (check all that apply): [X] [place] [X] [place] electronic health [place] [X] Other (please identify other evidence reviewed): VBMS, JLV, VISTAIMAGING, CPRS Evidence Comments: * 04/06/2024 VBA RATING DECISION: - Service connection for tinnitus is granted. MEDICAL OPINION SUMMARY RESTATEMENT OF REQUESTED OPINION: a. Opinion from general remarks: THE 2506 DATED MAY 13, 2024 REQUESTS THE FOLLOWING SECONDARY SERVICE CONNECTION MEDICAL OPINION: IS THE 'S OBSTRUCTIVE SLEEP APNEA AT LEAST LIKELY NOT (LIKELIHOOD IS AT LEAST APPROXIMATELY BALANCED OR NEARLY EQUAL, IF NOT HIGHER) PROXIMATELY DUE TO OR RELATED TO HIS [place] TINNITUS? b. Indicate type of exam for which opinion has been requested: OBSTRUCTIVE SLEEP APNEA TYPE OF MEDICAL OPINION PROVIDED: [ SECONDARY SERVICE CONNECTION ] The claimed condition is less likely than not (likelihood is less than approximately balanced or nearly equal) proximately due to or the result of the [place]'s service connected condition. c. Rationale: REVIEW OF AVAILABLE MEDICAL EVIDENCE: * 05/12/2024 NEPHROLOGY NOTE: He says he still uses his CPAP machine at night. EXAM: Obese male. Abdomen: increased abdominal girth. WEIGHT = 244 LBS. * 10/15/2018 WEIGHT = 237.5 LBS. * 12/10/2017 POLYSOMNOGRAM: AHI of 17 events per hour. Moderate degree of Obstructive Sleep Apnea * 10/29/2016 WEIGHT = 240.3 LBS. * 07/31/2016 Polysomnogram Treatment [place]. Study showed successful trail of nasal CPAP * 12/23/2015 WEIGHT = 232.7 LBS * 11/17/2015 PRIVATE POLYSOMNOGRAM: Dx moderate degree of obstructive sleep apnea. Weight 235 pounds. * 02/17/2013 WEIGHT = 248.1 LBS. * 01/17/2012 WEIGHT = 240.9 LBS. * 10/31/2011 WEIGHT = 227.1 LBS * 12/15/1998 WEIGHT = 231 LBS. * 12/01/1973 DATE OF RELIEF FROM ACTIVE DUTY PER DD214 * 12/01/1973 STR SEPATATION MEDICAL EXAM: Medical: tonsillectomy age [age] years old. height 68 inches weight 170 lbs. Self Assessment: no frequent trouble sleeping. * 03/04/1972 DATE ENTERED ACTIVE DUTY PER DD214 * 10/31/1971 STR PREINDUCTION EXAM: Medical: Height 66 inches. Weight 160 lbs. REVIEW OF MEDICAL LITERATURE: [employer] website accessed April 2024 * NAI is the most common sleep-related breathing disorder. NAI is most common among older males. RISK FACTORS AND ASSOCIATED CONDITIONS Several clinical risk factors are associated with NAI and include the following: ?Older age The prevalence of NAI increases from young adulthood through the sixth to seventh decade, then appears to plateau. ?Male sex NAI is approximately two to three times more common in males than females, although the risk appears to be similar once females are alessio- and postmenopausal. ?Obesity The risk of NAI correlates with increasing body mass index (BMI). MEDICAL OPINION for DIRECT SERVICE CONNECTION: The [place]'s available STRS are silent for sleeping issues. 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 There is a 60+ lb. weight gain documented in the available medical evidence post active duty. The peer-reviewed medical literature notes that increased BMI is one of the strongest risk factors for the development of Obstructive Sleep Apnea. It does not list any hearing disorders to include tinnitus as risk factors. It is my medical opinion that the 's current diagnosis of Obstructive Sleep Apnea is less likely as not(likelihood is less than approximately or nearly equal) proximately due to or related to his [place] tinnitus. * /jamal/ RENÉ LLANES NURSE PRACTITIONER Signed: 05/14/2024 08:36 ROXANNE LLANES [place] [facility]
--- OUTSIDE RECORDS SUMMARY | 2024-10-12 19:47 | XMS_ITS | Encounter Summary ---
Author Organization [facility] Address [address] [place] [address] Care Team Providers Care Tray Server Name Role Phone Manan Reinoso MD Primary Care Provider [phone] Reason for Visit * Reason Comments Wound Care Encounter Details Date Type Department Care Team (Late st Contact Info) Description 09/22/2024 3:00 PM EST Office Visit 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, with long-term current use of insulin (CMS/HCC) Social History Tobacco Use Types Packs/Day Years [...] file Not on file Not on file documented as of this encounter Last Filed Vital Signs Vital Sign Reading Time Taken Comments Blood Pressure 132/61 09/22/2024 3:34 PM EST Pulse 64 09/22/2024 3:34 PM EST Temperature 36.2 ??C (97.1 ??F) 09/22/2024 3:34 PM ES T Respiratory Rate 19 09/22/2024 3:34 PM EST Oxygen Saturation 97% 09/22/2024 3:34 PM EST Inhaled Oxygen Concentration - - Weight - - Height - - Body Mass Index - - documented in this encounter Progress Notes * Mireille Yan RN - 09/22/2024 3:00 PM EST Discharge from Wound Care Services: Congratulations your wound is healed. No need for further follow up appointments. Ok to shower regularly. Continue to moisturize skin. If your wound reoccurs or you have any questions/concerns, please call the wound care center at for another appointment. * LAVON Moe - 09/22/2024 3:00 PM EST Images from the original note were not included. [facility] [place] [place] [address] Office Visit Visit Date: 09/22/2024 Patient Name: Kirby Christianson Date of : 1950 PCP: Manan Reinoso MD HPI: Kirby Christianson is a 74 y.o. male who presents to the to the wound care center for follow up forleg wound. Wound has continued to make marked improvement. Family Patient believe wound is healed at this time patient's without any complaints. Assessment and Plan: Chronic venous hypertension (idiopathic) with ulcer and inflammation of right lower extremity (CMS/HCC) (Primary) Non-pressure chronic ulcer of other part of right lower leg with fat layer exposed (CMS/HCC) Diabetes mellitus due to underlying condition with diabetic autonomic neuropathy, with long-term current use of insulin (CMS/HCC) Resolved wounds. Follow-up as needed. All questions were answered to his satisfaction. He was counseled regarding my impressions, instructions for management, and the importance of compliance with treatment. >>>>>>>>>>>>>>>>>>>>>>>>>>>>>>>>>>>>>>>>>>>>>>>>>>> Review of Systems: Review of Systems Constitutional: Negative for chills and fever. Skin: Positive for wound. Vital Signs: Visit Vitals BP 132/61 Pulse 64 Temp 36.2 ??C (97.1 ??F) (Temporal) Resp 19 PHYSICAL EXAM Physical Exam Vitals reviewed. Constitutional: Appearance: Normal appearance. HENT: Head: Normocephalic. Eyes: Extraocular Movements: Extraocular movements intact. Pulmonary: Effort: Pulmonary effort is normal. Musculoskeletal: General: Normal range of motion. Skin: Comments: Right lateral wound appears healed at this time. No areas of erythema induration externalskin is noted. Edema is well-controlled. Neurological: General: No focal deficit present. Mental Status: He is alert and oriented to person, place, and time. Psychiatric: Mood and Affect: Mood normal. WOUND ASSESSMENT If photograph of wound not visible on this note, please check under Media tab. Wound Venous Ulcer 05/25/24 Leg Right;Lower;Lateral (Active) Date First Assessed: 05/25/24 Primary Wound Type: Venous Ulcer Wound Approximate Age at First Assessment (Weeks): 8 weeks Hand Hygiene Completed: Yes Location: Leg Wound Location Orientation: Right;Lower;Lateral Assessments 08/04/2024 3:34 PM 09/22/2024 3:38 PM Wound Image Wound Bed Tissue Assessment Granulation;Darling Epithelialization Palmira-Wound Assessment Peeling;Dry Scarred;Dry;Intact Wound Length (cm) 0.4 cm 0.1 cm Wound Width (cm) 0.3 cm 0.1 cm Wound Surface Area (cm^2) 0.12 cm^2 0.01 cm^2 Wound Depth (cm) 0.6 cm 0.1 cm Wound Volume (cm^3) 0.072 cm^3 0.001 cm^3 Wound Healing % -- 99 Drainage Description Serosanguineous Serous Drainage Amount Moderate Scant Treatments Cleansed;Other (Comment) Cleansed Dressing -- Tubular stocking Dressing Status Removed Removed Wound Bed Granulation (%) 100 % 1 % Wound Bed Epithelialization (%) -- 99 % Wound Bed Slough (%) 0 % 0 % Wound Bed Eschar (%) 0 % 0 % Tunneling 1 cm -- Tunneling Clock Position of Wound 6 o'clock -- Undermining 0 cm -- Edges Well-defined edges;Not attached -- Non-staged Wound Description Full thickness -- Inactive Orders Date Order Priority Status Authorizing Provider 09/01/24 1528 Debridement Venous Ulcer Right;Lower;Lateral Leg Routine Completed LAVON Moe 08/18/24 1512 Debridement Venous Ulcer Right;Lower;Lateral Leg Routine Completed LAVON Moe 08/04/24 1555 Debridement Venous Ulcer Right;Lower;Lateral Leg Routine Completed LAVON Moe PHYSICIAN ORDERS Patient Instructions Discharge from Wound Care Services: Congratulations your wound is healed. No need for further follow up appointments. Ok to shower regularly. Continue to moisturize skin. If your wound reoccurs or you have any questions/concerns, please call the wound care center at for another appointment. 09/22/2024 3:57 PM EST LAVON Chicas * Asha Goodwin RN - 09/22/2024 3:00 PM EST Discharge Patient directed to check out at front desk manager and collect visit summary. Dressings applied: Lotion applied to leg and Tubigrip E Patient questions answered. Pt discharge from wound care center without issue or incidence. documented in this encounter Plan of Treatment Not on file documented as of this encounter Goals Goal Patient Goal Type Associated Problems Recent Progress Patient-Stated? Author Wound volume breakdown reduced by X% by week 4 Care Plan Impaired Tissue No Mireille Yan RN Wound volume breakdown reduced by X% by week 8 Care Plan Impaired Tissue No Mireille Yan RN Wound volume breakdown reduced by X% by week 12 Care Plan Impaired Tissue No Mireille Yan RN Quit using tobacco (cigarettes, smokeless, etc) Care Plan Education needed on impact of smoking on wound No Mireille Yan RN Reduce tobacco use (cigarettes, smokeless, etc) Care Plan Education needed on impact of smoking on wound No Mireille Yan RN Decrease Wound Volume by X% by date (in notes) Care Plan Education needed on impact of smoking on wound Mireille Dan RN Patient and Caregiver Understand Wound Care Education Care Plan Education needed related to ulceration/compr omised skin integrity. 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 08/04/2024 documented as of this encounter Care Teams Tray Server Relationship Specialty Start Date End Date Manan Reinoso MD [address] [place] [address] CHRIS Wolf PCP - General Internal Medicine 04/06/19 documented as of this encounter
--- OUTSIDE RECORDS SUMMARY | 2024-10-12 19:47 | XMS_ITS | Encounter Summary ---
Author Organization [facility] Address [address] [place] [address] Care Team Providers Care M48 M60 Armor Crewman Name Role Phone Manan Reinoso MD Primary Care Provider [phone] Reason for Visit * Reason Comments Wound Care Encounter Details Date Type Department Care Team (Late st Contact Info) Description 09/15/2024 9:30 AM EST Office Visit [facility] [address] [place] [phone] Sergio Rodriguez MD [address] [place] [address] Chronic venous hypertension (idiopathic) with ulcer and [...] Sign Reading Time Taken Comments Blood Pressure 92/56 09/15/2024 9:45 AM EST Pulse 63 09/15/2024 9:45 AM EST Temperature 35.9 ??C (96.6 ??F) 09/15/2024 9:45 AM ES T Respiratory Rate 17 09/15/2024 9:45 AM EST Oxygen Saturation 94% 09/15/2024 9:45 AM EST Inhaled Oxygen Concentration - - Weight - - Height - - Body Mass Index - - documented in this encounter Progress Notes * Mireille Yan RN - 09/15/2024 9:30 AM EST PHYSICIAN ORDERS Go to ER if you are presenting with fever, chills, increased redness, pain, swelling, warmth aroundwound area and/or foul smelling odor. If you have any questions or concerns, please contact the [facility] at . Follow up(s)/ Referrals: Vascular: [facility] [place]: N/A Additional Orders: Increase protein in your diet to help promote wound healing Edema Control: If your compression wrap(s) feel to tight, please elevate your leg(s) about heart level. If your wrap(s) are becoming painful and/or you loose sensation of toes/ are having toe discoloration (a change from your baseline), please remove / unwrap compression and notify [facility] at . Tubigrip to right lower extremity. Apply first thing in the morning prior to getting out of bed, OKto remove at bedtime. Ensure tubigrip extends from just behind the toes to about 2 finger widths below the knee., Elevate legs above heart level as much as possible Offloading: N/A Negative Pressure Wound Therapy: N/A Cellular/Tissue Based Products: N/A Bathing / Showering / Hygiene: May shower with protection but DO NOT get wound dressing(s) wet. Protect dressing(s) with water repellant cover ( for example- large plastic bag or cast bag) and then may take shower. Non-wound Condition/ Other Skin Care: Moisturize skin daily, avoiding wound area Wound Location(s): Wound #1 (Right lateral lower leg): Cleanser: Cleanse with normal saline Periwound: N/A Topical: Woun'dres- Apply a thin layer to wound bed Primary dressing: N/A Secondary dressinx4 woven (non-sterile) Secure with: 3 conforming gauze roll, 1 paper tape Compression Therapy: Tubigrip to right lower extremity. Apply first thing in the morning prior to getting out of bed, OK to remove at bedtime. Ensure tubigrip extends from just behind the toes to about 2 finger widths below the knee. Dressing Change Frequency: Every Other Day * Sergio Rodriguez MD - 09/15/2024 9:30 AM EST Images from the original note were not included. [facility] [place] [address] Office Visit Visit Date: 09/15/2024 Patient Name: Kirby Christianson Date of : 1950 PCP: Manan Reinoso MD HPI: 74-year-old male history diabetes, right lateral lower leg wound is here for follow-up of thiswound. Wound has been healing over the last several months. Using [place] to the wound bed most recently. No fevers or chills. No increased pain or drainage. Assessment and Plan: Right lateral lower leg venous ulcer, initially infectious, is healing and is quite small now but with some continued depth. See measurements. No evidence of infection today. He continues to have underlying and surrounding focal soft tissue swelling. This may be scar remodeling as it does not feel fluctuant. There is no expressible fluid. I do not think any imaging is indicated at this time but will monitor. No debridement indicated today. Follow-up in 2 weeks. 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 He was counseled regarding my impressions, instructions for management, and the importance of compliance with treatment. Follow up in about 2 weeks (around 09/29/2024) for Follow up. >>>>>>>>>>>>>>>>>>>>>>>>>>>>>>>>>>>>>>>>>>>>>>>>>>> Vital Signs: Visit Vitals BP 92/56 Pulse 63 Temp 35.9 ??C (96.6 ??F) (Temporal) Resp 17 Review of Systems: Review of Systems Constitutional: Negative for chills and fever. PHYSICAL EXAM Physical Exam Vitals and nursing note reviewed. Constitutional: Appearance: Normal appearance. He is not ill-appearing. Pulmonary: Effort: Pulmonary effort is normal. Skin: Comments: Right lateral lower leg ulcer is pinpoint but with depth of almost half a centimeter. Thesurrounding tissue is edematous but not fluctuant focally. There is no periwound inflammation or induration. WOUND ASSESSMENT If photograph of wound not visible on this note, please check under Media tab. Wound Venous Ulcer 05/25/24 Leg Right;Lower;Lateral (Active) Date First Assessed: 05/25/24 Primary Wound Type: Venous Ulcer Wound Approximate Age at First Assessment (Weeks): 8 weeks Hand Hygiene Completed: Yes Location: Leg Wound Location Orientation: Right;Lower;Lateral Assessments 08/04/2024 3:34 PM 09/15/2024 9:47 AM Wound Image Wound Bed Tissue Assessment Granulation;[place] Unable to assess Palmira-Wound Assessment Peeling;Dry Scarred;Dry;Intact Wound Length (cm) 0.4 cm 0.1 cm Wound Width (cm) 0.3 cm 0.1 cm Wound Surface Area (cm^2) 0.12 cm^2 0.01 cm^2 Wound Depth (cm) 0.6 cm 0.5 cm Wound Volume (cm^3) 0.072 cm^3 0.005 cm^3 Wound Healing % -- 93 Drainage Description Serosanguineous Serous Drainage Amount Moderate Scant Treatments Cleansed;Other (Comment) Cleansed;Other (Comment) Dressing Status Removed Removed Wound Bed Granulation (%) 100 % -- Wound Bed Slough (%) 0 % -- Wound Bed Eschar (%) 0 % -- Tunneling 1 cm -- Tunneling Clock Position of Wound 6 o'clock -- Undermining 0 cm -- Edges Well-defined edges;Not attached Well-defined edges Non-staged Wound Description Full thickness Full thickness Inactive Orders Date Order Priority Status Authorizing Provider 09/01/24 1528 Debridement Venous Ulcer Right;Lower;Lateral Leg Routine Completed LAVON Moe 08/18/24 1512 Debridement Venous Ulcer Right;Lower;Lateral Leg Routine Completed LAVON Moe 08/04/24 1555 Debridement Venous Ulcer Right;Lower;Lateral Leg Routine Completed LAVON Moe PROVIDER ORDERS Patient Instructions PHYSICIAN ORDERS Go to ER if you are presenting with fever, chills, increased redness, pain, swelling, warmth aroundwound area and/or foul smelling odor. If you have any questions or concerns, please contact the [facility] at . Follow up(s)/ Referrals: Vascular: [facility] [place]: N/A Additional Orders: Increase protein in your diet to help promote wound healing Edema Control: If your compression wrap(s) feel to tight, please elevate your leg(s) about heart level. If your wrap(s) are becoming painful and/or you loose sensation of toes/ are having toe discoloration (a change from your baseline), please remove / unwrap compression and notify [facility] at . Tubigrip to right lower extremity. Apply first thing in the morning prior to getting out of bed, OKto remove at bedtime. Ensure tubigrip extends from just behind the toes to about 2 finger widths below the knee., Elevate legs above heart level as much as possible Offloading: N/A Negative Pressure Wound Therapy: N/A Cellular/Tissue Based Products: N/A Bathing / Showering / Hygiene: May shower with protection but DO NOT get wound dressing(s) wet. Protect dressing(s) with water repellant cover ( for example- large plastic bag or cast bag) and then may take shower. Non-wound Condition/ Other Skin Care: Moisturize skin daily, avoiding wound area Wound Location(s): Wound #1 (Right lateral lower leg): Cleanser: Cleanse with normal saline Periwound: N/A Topical: Woun'dres- Apply a thin layer to wound bed Primary dressing: N/A Secondary dressinx4 woven (non-sterile) Secure with: 3 conforming gauze roll, 1 paper tape Compression Therapy: Tubigrip to right lower extremity. Apply first thing in the morning prior to getting out of bed, OK to remove at bedtime. Ensure tubigrip extends from just behind the toes to about 2 finger widths below the knee. Dressing Change Frequency: Every Other Day 09/15/2024 10:28 AM EST Sergio Rodriguez MD * Asha Goodwin RN - 09/15/2024 9:30 AM EST Discharge Patient directed to check out at front office agent and collect visit summary with wound care directions and book follow up as directed. Dressings applied: Wound #1 (Right lateral lower leg): Cleanser: Cleanse with normal saline Topical: Woun'dres- Apply a thin layer to wound bed Secondary dressinx4 woven (non-sterile) Secure with: 3 conforming gauze roll, 1 paper tape Compression Therapy: Tubigrip to right lower extremity. Dressing technique was demonstrated and explained. Patient questions answered. Pt declined discharge vital signs Pt discharge from wound care center without [...] on impact of smoking on wound No Wurszt, Mireille E, RN Patient and Caregiver Understand Wound Care [...] neuropathy, with long-term current use of insulin (CMS/[facility]) documented in this encounter Additional Health Concerns Active Problems Noted Date Diagnosed Date Impaired Tissue 08/04/2024 Education needed on impact of smoking on wound 1 10/04/2023 Education needed related to ulceration/compromised skin integrity. 08/04/2024 documented as of this encounter Care Teams M48 M60 Armor Crewman Relationship Specialty Start Date End Date Manan Reinoso MD [address] [place] Wolf [place] PCP - General Internal Medicine 04/06/19 documented as of this encounter
--- OUTSIDE RECORDS SUMMARY | 2024-10-12 19:47 | XMS_ITS | Patient Health Record ---
Author Organization [facility] Address [address] [place] [address] Care Team Providers Care Stone Setter Name Role Phone Manan Reinoso MD Primary Care Provider Unavailab Andrzej Pacheco Unavailable [phone] Ced Hernandez Unavailable [phone] Allergies No Known Allergies Reason For Referral No Information Medications Medication SIG (Take, Route, Frequency, Duration) Notes Start Date End Date Status Pantoprazole Sodium 40 MG 1 tablet Orall y Once a day for 30 day(s) Active Rosuvastatin Calcium 40 MG 1 tablet [...] Active Metoprolol Tartrate Active Midodrine HCl Active Eliquis 5 MG 1 tablet Orally Twic e a day for 30 day(s) Active Finasteride 5 MG 1 tablet Orally Once a day for 30 day(s) Active Jardiance 25 MG 1 tablet Orally Once a day Active HumaLOG Active Vicodin Active ASA Active Immunizations Vaccine Route Administration Date Status Comme nts COVID-19 Moderna Vaccine Unknown 05/17/2022 Administered 2020,2020 2020 Unsure dates Influenza Unknown 05/17/2022 Administered Social History Tobacco Use: Social History Observation [...] Problem Status W/U Status Risk Notes Problem Acquired hammer toe of right foot (2575235902879642 ) Other hammer toe(s) (acquired), right foot (M20.41) Active confirmed Problem Acquired hammer toe of left foot (7078912496778817 ) Other hammer toe(s) (acquired), left foot (M20.42) Active confirmed Problem Polyneuropathy due to diabetes mellitus type I (172270322) Type 1 diabetes mellitus with diabetic polyneuropathy (E10.42) Active confirmed Vital Signs Blood pressure diastolic 80 mm Hg 07/28/2024 Height 5ft 8in in 07/28/2024 Blood pressure systolic 120 mm Hg 07/28/2024 Weight 235 lbs 07/28/2024 BMI 35.73 kg/m2 07/28/2024 Procedures Procedure Date Ordered Date Performed Result Body Sit e 61954-BQMFWDD NAIL, 1-5 07/28/2024 N/A 45881-GFNH SKIN LESIONS, OVER 4 07/28/2024 N/A H8481-PNAGVXTZ DYSTROPHIC NAILS ANY # 07/28/2024 N/A Encounters Encounter Location Date Provider Diagnosis [facility] [address] [address] 10/28/2023 Ced Hernandez Type 1 diabetes mellitus with diabetic polyneuropathy E10.42 ; Skin disease L98.9 ; Hallux valgus (acquired), left foot M20.12 and Tinea unguium B35.[address] [facility] [address] 01/27/2024 Ced Hernandez Type 1 diabetes mellitus with diabetic polyneuropathy E10.42 ; Skin disease L98.9 ; Hallux valgus (acquired), left foot M20.12 ; Tinea unguium B35.1 ; Pain in right toe(s) M79.674 ; Pain in left toe(s) M79.675 and Ingrowing nail L60.[address] [facility] [address] 04/27/2024 Ced Hernandez Type 1 diabetes mellitus with diabetic polyneuropathy E10.42 ; Skin disease L98.9 ; Hallux valgus (acquired), left foot M20.12 ; Tinea unguium B35.1 ; Pain in right toe(s) M79.674 ; Pain in left toe(s) M79.675 and Ingrowing nail L60.[address] [address] 07/28/2024 Andrzej Raman Type 1 diabetes mellitus with diabetic polyneuropathy E10.42 ; Tinea unguium B35.1 ; Other hammer toe(s) (acquired), right foot M20.41 and Other hammer toe(s) (acquired), left foot M20.42 Assessments Encounter Date Diagnosis (ICD Code) Assessment Notes Treatment Notes Treatment Clinical Notes Section Notes 10/28/2023 Type 1 diabetes mellitus with diabetic polyneuropathy (ICD-10 - E10.42) 01/27/2024 Type 1 diabetes mellitus with diabetic polyneuropathy (ICD-10 - E10.42) 01/27/2024 Skin disease (ICD-10 - L98.9) 04/27/2024 Type 1 diabetes mellitus with diabetic polyneuropathy (ICD-10 - E10.42) 07/28/2024 Tinea unguium (ICD-10 - B35.1) 07/28/2024 Type 1 diabetes mellitus with diabetic polyneuropathy (ICD-10 - E10.42) 07/28/2024 Other hammer toe(s) (acquired), right foot (ICD-10 - M20.41) Patient Educated with: DIABETIC FOOT CARE INSTRUCTIONS. pdf (DIABETIC FOOT CARE INSTRUCTIONS. pdf) 04/27/2024 Skin disease (ICD-10 - L98.9) 01/27/2024 Hallux valgus (acquired), left foot (ICD-10 - M20.12) 10/28/2023 Skin disease (ICD-10 - L98.9) 10/28/2023 Hallux valgus (acquired), left foot (ICD-10 - M20.12) 01/27/2024 Tinea unguium (ICD-10 - B35.1) 04/27/2024 Hallux valgus (acquired), left foot (ICD-10 - M20.12) 07/28/2024 Other hammer toe(s) (acquired), left foot (ICD-10 - M20.42) 01/27/2024 Pain in right toe(s) (ICD-10 - M79.674) 04/27/2024 Tinea unguium (ICD-10 - B35.1) 10/28/2023 Tinea unguium (ICD-10 - B35.1) 01/27/2024 Pain in left toe(s) (ICD-10 - M79.675) 04/27/2024 Pain in right toe(s) (ICD-10 - M79.674) 04/27/2024 Pain in left toe(s) (ICD-10 - M79.675) 01/27/2024 Ingrowing nail (ICD-10 - L60.0) 04/27/2024 Ingrowing nail (ICD-10 - L60.0) Plan Of Treatment Pending Test Test Name Order Date X ray : Foot, left 3V 12/05/2022 34003-VRDANML NAIL, 1-5 07/28/2024 10218-GRPESOW SKIN/TISSUE 12/05/2022 50511-DEYXFXA SKIN/TISSUE 01/09/2023 82676-UQAR SKIN LESIONS, OVER 4 02/08/20 23 49325-WKCO SKIN LESIONS, OVER 4 12/06/19 23 32748-SIUH SKIN LESIONS, OVER 4 07/28/20 24 Q9044-CNCGOOOR DYSTROPHIC NAILS ANY # R1511-ZFIMDBCE DYSTROPHIC NAILS ANY # [id number] DYSTROPHIC NAILS ANY # Next Appt Details Provider Name:Andrzej Camargo , 11/03/2024 03:00:00 PM, [address] [place] [address], [phone], Insurance Providers Payer Name Payer Address Payer Phone Subscriber Number Group Number Insured Name Patient Relationship to Insured Coverage Start Date Coverage End Date [employer] PPO [address] [place] [phone] [id number] Kirby Christianson Self - patient is the insured Medical (General) History Medical History History ICD Code Back,Hip,and Knee pain Diabetic type ll Poor circulation Stroke ulcer Surgical History Surgery Date(Month/Year) back surgery- Spine L5 03/06 cataract surgery appendectomy right leg [place] [facility] [place] Hospitalization History Reason Date(Month/Year)
--- OUTSIDE RECORDS SUMMARY | 2024-10-12 19:47 | XMS_ITS | Encounter Summary ---
Author Name [facility] [place] [place] [facility] [place] Address [address] [place] [address] Care Team Providers Care Occupational Therapist Assistants Name Role Phone SHAW MOSCOSO Primary Care [...] MEDIC ARE D Sep 16, 2016 PDPIND [id number] [phone] DAYAMI BERGER IS PATIENT AETNA [facility] ([facility]) MEDICARE ADVANTAGE [facility] ([facility]) Feb 14, 2022 [id number] [phone] DAYAMI BERGER IS PATIENT MEDICAID MEDICAID [facility] Jul 17, 2015 MEDICAI D [id number] DAYAMI BERGER IS PATIENT MEDICARE ([facility]) MEDICARE (M) PART A Sep 16, 2010 PART A [id number] DAYAMI BERGER IS PATIENT MEDICARE ([facility]) MEDICARE (M) PART B Sep 16, 2010 PART B [id number] DAYAMI BERGER IS PATIENT Selected Encounter This section includes the information on record at [place] for the Encounter. Date/Time Encounter Type Encounter Description Reason Provider Source February 06, 2024 03:00 PM OFFICE O/P EST HI 40 MIN ENDOCRINOLOGY ICD-10-CM E11.9 Type 2 diabetes mellitus without complications RUTHIE STALLINGSCE [facility] Encounter Template Text not used by [place] Assessments - Encounter Diagnoses This section includes the primary and secondary diagnoses documented for the Encounter. Date/Time Primary/Secondary Diagnosis Diagnosis Name Provider Source February 06, 2024 03:47 PM PRIMARY Type 2 diabetes mellitus without complications STALLINGSDELMER [facility] [place] [facility] February 06, 2024 03:47 PM SECONDARY Chronic kidney disease, stage 3 unspecified GASQUETDELMER [facility] [place] [facility] February 06, 2024 03:47 PM SECONDARY Essential (primary) hypertension STALLINGSDELMER [facility] [place] [facility] February 06, 2024 03:47 PM SECONDARY Hyperlipidemia, unspecified STALLINGSDELMER [facility] [place] [facility] February 06, 2024 03:47 PM SECONDARY Obesity, unspecified STALLINGSDELMER [facility] [place] [facility] February 06, 2024 03:47 PM SECONDARY Type 2 diab with prolif diab rtnop without mclr edema, unsp STALLINGSDELMER [facility] [place] [facility] February 06, 2024 03:47 PM SECONDARY Type 2 diabetes mellitus w diabetic chronic kidney disease STALLINGSDELMER [facility] [place] [facility] February 06, 2024 03:47 PM SECONDARY Type 2 diabetes mellitus with diabetic polyneuropathy [facility]ALLINGSDELMER [facility] [place] [facility] Plan of Treatment: Future Appointments (+ 6 months) and Future Tests (+/- 45 days) The Plan of Treatment section includes future care activities for the patient from all [place] treatmentfacilities. This section includes future appointments and future orders which are active, pending or scheduled. Future Appointments This section includes appointments that were scheduled to occur 6 months from the date of the Encounter, up to a maximum of 20 appointments. The data comes from all [place] treatment facilities. Appointment Date/Time Appointment Type Appointme nt Facility Name Mar 17, 2024 04:00 PM AMBULATORY [facility] MEDICINE [facility] [place] [facility] Apr 02, 2024 03:00 PM AMBULATORY - MEDICINE [facility] [place] [facility] Apr 16, 2024 03:00 PM AMBULATORY - MEDICINE [facility] [place] [facility] May 12, 2024 03:30 PM AMBULATORY - MEDICINE [facility] [place] [facility] May 14, 2024 08:00 AM AMBULATORY - MEDICINE [facility] [place] [facility] May 20, 2024 03:00 PM AMBULATORY - MEDICINE [facility] [place] [facility] Jun 25, 2024 03:00 PM AMBULATORY - MEDICINE [facility] [place] [facility] Jul 09, 2024 03:00 PM AMBULATORY - MEDICINE [facility] [place] [facility] Jul 10, 2024 03:00 PM AMBULATORY - MEDICINE [facility] Lab Results: +/- 30 days [...] Range Comment January 31, 2024 07:48 AM [facility] HEMOGLOBIN A1C PANEL Specimen Type: BLOOD [...] Nov 04, 2023 09:26 AM Reporting Lab: [facility] [address] [facility] [address] Performing Lab: [address] [address] HEMOGLOBIN A1C 7.2 H 4.0-5.6 January 31, 2024 07:48 AM [facility] BASIC METABOLIC PANEL (non-fasting) Specimen Type: SERUM No comment entered. Ordering Provider: DELMER STALLINGS Report Released Date/Time: Nov 04, 2023 09:26 AM [facility] [address] [facility] [address] Performing [facility]: [facility] [address] [facility] [address] UREA NITROGEN 23 mg/dL 7-25 GLUCOSE 233 [...] 68 123/71 16 95 0 251.7 38 [facility] Social History: Smoking Status (Most current) [...] VA-TOBACCO QUIT 15 YRS OR MORE [facility] Tobacco Use History This section includes a history of the smoking, or tobacco-related health factors, that were collected on or before the date of the Encounter. The data comes from the [place] facility where the Encounter took place. Date/Time Smoking Status/Tobacco Use Comment F acility Jul 09, 2023 03:03 PM VA-TOBACCO QUIT 15 YRS OR MORE [facility] Jul 05, 2022 01:51 PM VA-TOBACCO NEVER USED [facility] May 11, 2021 01:18 PM VA-TOBACCO NEVER [facility]ED [facility] [place] [facility] Encounter Notes: All associated encounter notes This section contains the clinical notes associated to the Encounter. Date/Time Encounter Note(s) Provider Source February 05, 2024 07:55 PM PHYSICIAN NOTE: LOCAL TITLE: NOTE STANDARD TITLE: PHYSICIAN NOTE DATE OF NOTE: FEBRUARY 05, 2024@19:55 ENTRY DATE: FEBRUARY 05, 2024@19:55:27 AUTHOR: DELMER STALLINGS COSIGNER: URGENCY: STATUS: COMPLETED NOTE Has ADDENDA CC: Diabetes Mellitus type 2 with chronic kidney disease, NPDR, and peripheral neuropathy , autonomic neuropathy, Hyperlipidemia Obesity HPI: Wants to change from antoine to dexcom sensors and loves having a sensor. Congratulated on sustained improvement in hgba1c! All endocrine labs were reviewed with the patient. Barriers/s supports for care: Lives alone. SO visits daily. Son leves near Cooking pretty consistently at home. Medications for diabetes: glargine 40 units Twice daily and aspart BG readings: CGM Hgba1c? HEMOGLOBIN A1C TREND 01/31/2024 07:48 BLOOD 7.2 H 10/24/2023 09:43 BLOOD 7.1 H 04/02/2023 09:09 BLOOD 9.3 H 12/18/2022 10:14 BLOOD 9.7 H 09/25/2022 07:40 BLOOD 8.6 H Weight trend: 251.7 lbs, fluctuates 38.35 BMI Food insecurity no does occ use Visual Pro 360 Physical activity: walks with rollator Carbohydrate counting: [...] glucagon kit SO knows how to use Active problems - Computerized Problem List is [...] peanuts 12. UTI 13. Claudication (SNOMED CT 222660661) 14. Elevated Prostate Specific antigen [psa] 15. [...] 25. Corneal Abrasion 26. Hypertension (SNOMED CT 77308936) 27. Onychomycosis * 28. Cataract, PSC/Post Subcapsular 29. Cataract, Cortical (Senile) 30. Cyst, ganglion 31. Cervical Radiculopathy 32. Shoulder Pain 33. Hyperlipidemia (SNOMED CT 64821198) 34. Old Myocardial Infarction 35. Depressive Disorder NOS Active Outpatient Medications (including Supplies): FLUTICASONE PROP 50MCG 120D NASAL INHL INSTILL 2 SPRAYS ACTIVE INTO EACH NOSTRIL ONCE DAILY GLUCOSE SENSOR FREESTYLE ANTOINE 2 USE 1 SENSOR DIRECTED ACTIVE EVERY 14 DAYS INSULIN,ASPART(EQV-NOVLG)100 UN/ML FLXPEN INJECT 30 UNITS HOLD SUBCUTANEOUSLY THREE TIMES A DAY FOR DIABETES INSULIN,GLARGINE-YFGN 100UNIT/ML PEN 3ML INJECT 44 UNITS ACTIVE SUBCUTANEOUSLY TWICE DAILY FOR DIABETES SKIN BARRIER WIPE TORBOT [...] COMPLEX CAP,ORAL BY MOUTH ON SATURDAY ACTIVE glucagon SHX: SO attends ROS: No cough or fever PE: affect pleasant appropriate speaking easily in full sentences foot exam deferred to podiatry this week. Medical Decision Making: Diabetes Mellitus type 2 with chronic kidney disease, NPDR, and peripheral neuropathy , autonomic neuropathy: NFR for [employer] G7 sensors. Pt will use reader He feels that current midodrine dose is fine. He is careful rising from sitting or lying Insulin Dose: aspart // and glargine 40 units BID Carbohydrate targets 45 gm TID Blood sugar targets 130 premeal and 150-180 after Hemoglobin A1c Targets 7.5 Obesity Pt has difficulty identifying reasons why he would feel better with weight loss, and does not feel ready to make change at this time. Hyperlipidemia pretty well controlled Team follow up Great candidate for CPP Dr. Yonas mojica Insulin orders updated in cprs F/u three mos Assess Statin Use - Lipids (CVD/DM): The patient is still taking the NON-VA statin medication as documented. Medication Reconciliation: Outpatient: Has the patient been [...] GABAPENTIN [facility] [place] [facility] NO KNOWN ALLERGIES Med Recon Nas (Tool #1) INCLUDED IN THIS LIST: Alphabetical list of active outpatient prescriptions dispensed from this [place] (local) and dispensed from another VA or [...] the patient into personal health records (i.e. [facility]) are NOT included in this list. Non-VA medications documented outside this [place], remote inpatient orders (regardless of status) and [...] SPRAYS INTO EACH NOSTRIL ONCE DAILY Rx# [id number] Last Released: 07/09/23 Qty/ Supply: 10/15 Rx Expiration Date: 07/09/24 Refills Remainin Indication: FOR NASAL IRRITATION/INFLAMMATION Non-VA FLUVASTATIN NA 40MG CAP TAKE 1 CAPSULE BY MOUTH ONCE DAILY OUTPT GLUCAGON 1MG/JEY INJ EMERGENCY KIT (Status = Pending) INJECT 1 INJECTION INTRAMUSCULARLY ONE TIME NEEDED Login Date: 02/06/24 Qty Supply: 10/15 Refills Ordered: 0 OUTPT INSULIN,ASPART(EQV-NOVLG)100 UN/ML FLXPEN (Status = On Hold) INJECT 30 UNITS SUBCUTANEOUSLY THREE TIMES A DAY FOR DIABETES Rx# [id number] Last Released: Qt Supply: Rx Expiration Date: 11/07/24 Refills Remainin Indication: FOR DIABETES OUTPT INSULIN,GLARGINE-YFGN 100UNIT/ML PEN 3ML (Status = Discontinued) INJECT 44 UNITS SUBCUTANEOUSLY TWICE DAILY FOR DIABETES (SAME LANTUS) Rx# [id number] Last Released: Qt Supply: Rx Expiration Date: 11/07/24 Refills Remainin Indication: FOR DIABETES OUTPT INSULIN,GLARGINE-YFGN 100UNIT/ML PEN 3ML (Status = Active) INJECT 44 UNITS SUBCUTANEOUSLY TWICE DAILY FOR DIABETES Rx# [id number] Last Released: 12/25/23 Qty/Days Supply: Rx Expiration Date: 12/23/24 Refills Remainin Indication: FOR DIABETES Non-VA LORATADINE [...] 1 SENSOR DIRECTED EVERY 14 DAYS Rx# [id number] Last Released: 11/18/23 Qty/Days Supply: 11/13 Rx Expiration Date: 08/23/24 Refills Remainin OUTPT GLUCOSE SENSOR FREESTYLE ANTOINE 2 (Status = Discontinued) USE 1 SENSOR DIRECTED EVERY 14 DAYS Rx# [id number] Last Released: Qty/Days Supply: 11/13 Rx Expiration Date: 12/13/24 Refills Remainin OUTPT GLUCOSE SENSOR FREESTYLE ANTOINE 2 (Status = Active) USE 1 SENSOR DIRECTED EVERY 14 DAYS Rx# [id number] Last Released: 01/29/24 Qty/Days Supply: 11/13 Rx Expiration Date: 12/18/24 Refills Remainin OUTPT SKIN BARRIER WIPE TORBOT SKIN TAC (Status = Active) USE 1 WIPE TOPICALLY EVERY 14 DAYS Rx# [id number] Last Released: 03/27/23 Qty/Days Supply: 50/90 Rx Expiration Date: 03/23/24 Refills Remainin /jamal/ DELMER STALLINGS MD STAFF PHYSICIAN Signed: 02/06/2024 15:47 Receipt Acknowledged By: 02/18/2024 10:00 /jamal/ ROB MATTHEW CLINICAL CORONER FORENSIC TECHNICIAN 02/06/2024 ADDENDUM STATUS: COMPLETED He will use a [employer] G7 reader. /keshawn STALLINGS MD STAFF PHYSICIAN Signed: 02/06/2024 15:55 [facility]
--- OUTSIDE RECORDS SUMMARY | 2024-10-12 19:48 | XMS_ITS | Encounter Summary ---
Author Name [facility] [place] Organization [facility] [place] Address [address] [place] [address] Care Team Providers Care Glass Glazier Name Role Phone SHAW MOSCOSO Primary Care [...] MEDIC ARE D Sep 16, 2016 PDPIND [id number] [phone] DAYAMI BERGER IS PATIENT AETNA [facility] ([facility]) MEDICARE ADVANTAGE [facility] ([facility]) Feb 14, 2022 [id number] [phone] DAYAMI BERGER IS PATIENT MEDICAID MEDICAID [facility] Jul 17, 2015 MEDICAI D [id number] DAYAMI BERGER IS PATIENT MEDICARE ([facility]) MEDICARE (M) PART A Sep 16, 2010 PART A [id number] DAYAMI BERGER IS PATIENT MEDICARE ([facility]) MEDICARE (M) PART B Sep 16, 2010 PART B [id number] DAYAMI BERGER IS PATIENT Selected Encounter This section includes the information on record at [place] for the Encounter. Date/Time Encounter Type Encounter Description Reason Provider Source May 12, 2024 03:30 PM OFFICE O/P EST MOD 30 MIN RENAL/NEPHROL(EXCE PT DIALYSIS) ICD-10-CM E11.22 Type 2 diabetes mellitus w diabetic chronic kidney disease LISA RAMOS [facility] Encounter Template Text not used by [place] Assessments - Encounter Diagnoses This section includes the primary and secondary diagnoses documented for the Encounter. Date/Time Primary/Secondary Diagnosis Diagnosis Name Provider Source May 12, 2024 03:54 PM PRIMARY Type 2 diabetes mellitus w diabetic chronic kidney disease JOVI RAMOS Rodríguez [place] [facility] [place] [facility] May 12, 2024 03:54 PM SECONDARY Chronic kidney disease, stage 3 unspecified RAMOSJOVI JOSEPH A [place] [facility] [place] [facility] May 12, 2024 03:54 PM SECONDARY Essential (primary) hypertension RAMOSJOVI JOSEPH A [place] [facility] [place] [facility] May 12, 2024 03:54 PM SECONDARY Hyperlipidemia, unspecified RAMOS,JOVI JOSEPH A [place] [facility] [place] [facility] May 12, 2024 03:54 PM SECONDARY Obesity, unspecified RAMOS,JOVI JOSEPH A [place] [facility] [place] [facility] May 12, 2024 03:54 PM SECONDARY Type 2 diabetes mellitus without complications JOVI RAMOS JOSEPH A [facility] Plan of Treatment: Future Appointments (+ 6 months) and Future Tests (+/- 45 days) The Plan of Treatment section includes future care activities for the patient from all [place] [facility] This section includes future appointments and future orders which are active, pending or scheduled. Future Appointments This section includes appointments that were scheduled to occur 6 months from the date of the Encounter, up to a maximum of 20 appointments. The data comes from all [place] treatment facilities. Appointment Date/Time Appointment Type Appointme nt Facility Name May 14, 2024 08:00 AM AMBULAT[facility] - [facility] May 20, 2024 03:00 PM [facility] Jun 25, 2024 03:00 PM [facility] [place] [facility] Jul 09, 2024 03:00 PM [facility]AT[facility]INE [facility] [place] [facility] Jul 10, 2024 03:00 PM AMBULATORY - MEDICINE [facility] [place] Aug 27, 2024 01:00 PM [facility] [place] [facility] Oct 28, 2024 03:00 PM [facility] [place] [facility] Nov 05, 2024 03:00 PM [facility] [place] [facility] Nov 10, 2024 03:00 PM AMBULATORY - MEDICINE [place] [facility] [place] [facility] Lab Results: +/- 30 days of [...] Range Comment May 08, 2024 08:12 AM [place] [facility] [place] [facility] MICROALBUMIN CREATININE RATIO PANEL Specimen Type: URINE No comment entered. Ordering Provider: JOVI RAMOS Report Released Date/Time: Nov 12, 2023 03:09 PM Reporting Lab: [place] [facility] [place] [facility] [address] [facility] [address] Performing Lab: [facility] [place] [facility] [address] [facility] [address] MICROALBUMIN/C REATININE RATIO 116.9 mg/g H 0-29.9 MICROALBUMIN,Q UANTITATIVE 11.6 mg/dL RR UNAVAIL CREATININE URINE 99.23 mg/dL May 07, 2024 10:37 AM [place] [facility] [place] [facility] PO4 Specimen Type: SERUM No comment entered. Ordering Provider: JOVI RAMOS Report Released Date/Time: Nov 12, 2023 03:09 PM Reporting Lab: [facility] [place] [facility] [address] [facility] [address] Performing Lab: [facility] [place] [facility] [address] [facility] [address] PO4 2.4 mg/dL L 2.5-5.0 May 07, 2024 10:37 AM [place] [facility] [place] [facility] PTH INTACT Specimen Type: SERUM No comment entered. Ordering Provider: JOVI RAMOS Report Released Date/Time: Nov 12, 2023 03:09 PM Reporting Lab: [facility] [place] [facility] [address] [facility] [address] Performing Lab: [facility] [place] [facility] [address] [facility] [address] PTH INTACT 99.2 pg/mL H 10-65 May 07, 2024 10:37 AM [facility] [place] [facility] VITAMIN D (25-OH) Specimen Type: SERUM No comment entered. Ordering Provider: JOVI RAMOS Report Released Date/Time: Nov 12, 2023 03:09 PM Reporting Lab: [facility] [place] [address] [address] Performing Lab: [facility] [place] [address] [address] VITAMIN D (25-OH) 30 ng/mL 20-50 May 07, 2024 10:37 AM [facility] MAGNESIUM Specimen Type: SERUM No comment entered. Ordering Provider: JOVI RAMOS Report Released Date/Time: Nov 12, 2023 03:09 PM Reporting Lab: [facility] [place] [address] [address] Performing Lab: [place] [facility] [place] [address] [address] MAGNESIUM 1.8 mg/dL 1.6-2.6 May 07, 2024 10:37 AM [facility] [place] [facility] ALBUMIN Specimen Type: SERUM No comment entered. Ordering Provider: JOVI RAMOS Report Released Date/Time: Nov 12, 2023 03:09 PM Reporting Lab: [facility] [place] [address] [address] Performing Lab: [place] [facility] [place] [address] [address] ALBUMIN 3.8 g/dL 3.5-5.0 May 07, 2024 10:37 AM [facility] CALCIUM Specimen Type: SERUM No comment entered. Ordering Provider: JOVI RAMOS Report Released Date/Time: Nov 12, 2023 03:09 PM Reporting Lab: [facility] [place] [facility] [address] [facility] [address] Performing Lab: [facility] [place] [address] [address] CALCIUM 9.0 mg/dL 8.5-10.2 May 07, 2024 10:37 AM [facility]N [facility] ALKALINE PHOSPHATASE Specimen Type: SERUM No comment entered. Ordering Provider: JOVI RAMOS Report Released Date/Time: Nov 12, 2023 03:09 PM Reporting Lab: [facility]RN [facility] [address] [address] Performing Lab: [facility] TRN [facility] [address] [address] ALKALINE PHOSPHATASE 72 U/L 40-150 May 07, 2024 10:37 AM [facility] FERRITIN Specimen Type: SERUM No comment entered. Ordering Provider: JOVI RAMOS Report Released Date/Time: Nov 12, 2023 03:09 PM Reporting Lab: [facility]RN [facility] [address] [address] Performing Lab: [facility] TRN [facility] [address] [address] FERRITIN 157 ng/mL 20-300 May 07, 2024 10:37 AM [facility]ITALN [facility] IRON & TIBC PANEL Specimen Type: SERUM No comment entered. Ordering Provider: JOVI RAMOS Report Released Date/Time: Nov 12, 2023 03:09 PM Reporting Lab: [facility] [address] [address] Performing Lab: [facility]ITALR[facility]ATRN [facility]ITAL[facility]ETS [address] [address] TIBC 267 ug/dL 204-475 IRON 64 ug/dL 40-160 Transferrin Saturation 24.0 20.0-50.0 May 07, 2024 10:37 AM [facility] BASIC METABOLIC PANEL (non-fasting) Specimen Type: SERUM No comment entered. Ordering Provider: JOVI RAMOS Report Released Date/Time: Nov 12, 2023 03:09 PM Reporting Lab: [address] [address] Performing Lab: [address] [address] UREA NITROGEN 20 mg/dL 7-25 GLUCOSE 168 mg/dL H 65-100 SODIUM 138 mmol/L 135-145 POTASSIUM 4.1 mmol/L 3.5-5.0 CHLORIDE 109 mmol/L 100-110 CO2 22 meq/L 20-30 CREATININE, Serum 1.38 mg/dL 0.50-1.40 eGFR(CKD-EPI 2020) 54 mL/min L >60 May 07, 2024 10:37 AM [facility] CBC Specimen Type: BLOOD No comment entered. Ordering Provider: JOVI RAMOS Report Released Date/Time: Nov 12, 2023 03:09 PM Reporting Lab: [address] [address] Performing Lab: [address] [address] WBC 6.55 10*3/uL 4.50-11.00 RBC 4.65 10*6/uL [...] Pain Height Weight Body Mass Index Source May 12, 2024 03:44 PM 96.8 76 113/69 16 96 0 244 37 [facility] Social History: Smoking Status (Most current) and Tobacco Use (All prior to encounter date) This section includes the most current, and the historical, smoking and tobacco- related health factors from the [place] facility where the Encounter took place. Current Smoking Status This section includes the most current smoking, or tobacco-related health factor, from the [place] facility where the Encounter took place. Date/Time Current Smoking Status Comment Facil ity Jul 09, 2023 03:03 PM VA-TOBACCO QUIT 15 YRS OR MORE [facility] Tobacco Use History This section includes a history of the smoking, or tobacco-related health factors, that were collected on or before the date of the Encounter. The data comes from the [place] facility where the Encounter took place. Date/Time Smoking Status/Tobacco Use Comment F acility Jul 09, 2023 03:03 PM VA-TOBACCO QUIT 15 YRS OR MORE [facility] Jul 05, 2022 01:51 PM VA-TOBACCO NEVER USED [facility] May 11, 2021 01:18 PM VA-TOBACCO NEVER USED [facility] Encounter Notes: All associated encounter notes This section contains the clinical notes associated to the Encounter. Date/Time Encounter Note(s) Provider Source May 12, 2024 11:59 AM NEPHROLOGY E & M NOTE: LOCAL TITLE: NEPHROLOGY NOTE STANDARD TITLE: NEPHROLOGY E & M NOTE DATE OF NOTE: MAY 12, 2024@11:59 ENTRY DATE: MAY 12, 2024@11:59:19 AUTHOR: MELANIA RAMOS COSIGNER: URGENCY: STATUS: COMPLETED [...] monitor his glucose with his new apparatus. He states he was on Ozempic but his vision worsened. So it was stopped and now his vision is back. Medications: Active and Recently Outpatient Medications (excluding [...] 3a: Review of the patient's labs from May 08 2024 showed a normal bicarb(22), Potassium(4.1), His creatinine was 1.5 is now 1.38 The patient's urine microalb/cr ratio was 131.8 is now 117.. Will reassess on return. No med changes The patient will return in 6 months obtaining labs for that visit #2. [...] glucose control. He should adhere a diabetic et to help keep his glucose under better control. 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 #4. Hyperlipidemia: The patient's lipid studies this Oct 24 showed a cholesterol of 111, and HDL of 29. He will continue his Atorvastatin and a heart healthy low fat diet. will obtain updated lipid profile for f/u. #5. Nutritional state/obesity: the patient's albumin was 3.8 (05/09) which is normal. weight was 244 lbs which is higher than desired. He is encouraged to exercise and decrease his intake. A heart healthy low fat diet may be very beneficial. #6. Anemia: the patient's H/H= 13.9/46.1 p=87 this Apr. His H/H is normal. . His iron profile showed an iron of 64, ferritin of 157, TSAT of 24 and TIBC of 267. He is presently taking FESO4 325mg/day. He will continue the iron supplement. Will obtain CBC and iron profile on return. 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 His recent labs from 05/09 showed a PTH of 99, magnesium 1.8 and PO4 of 2.4. VitD was 30, alkaline Phos72 and calcium 9.0. . This was a 20 minute visit [...] of active outpatient prescriptions dispensed from this [place] (local) and dispensed from another [place] or DoD facility (remote) as well as [...] or non-VA provider. /jamal/ MELANIA RAMOS M.D. PREFLIGHT INSPECTOR STORAGE WORKER Signed: 05/12/2024 15:54 MELANIA RAMOS [place] [facility]
== END 2024-10-12 16:42 | disposition home or self-care (01) ==
PROVIDERS: PCP Internal Medicine; Visit Provider Internal Medicine
DX: R13.10 Dysphagia, unspecified (principal); D64.9 Anemia, unspecified; I48.0 Paroxysmal atrial fibrillation; I63.9 Cerebral infarction, unspecified; K52.9 Noninfective gastroenteritis and colitis, unspecified; Z86.0100 Personal history of colon polyps, unspecified; R19.8 Other specified symptoms and signs involving the digestive system and abdomen
CPT/HCPCS: 99214

== ENCOUNTER → 2024-10-12 16:07 | Outpatient (BNVA) | payer MEDICARE, MEDICAID, SELFPAY | PROVIDERS: PCP Internal Medicine; Visit Provider Internal Medicine | DX: K52.9 Noninfective gastroenteritis and colitis, unspecified (principal); D64.9 Anemia, unspecified; I48.0 Paroxysmal atrial fibrillation; R13.10 Dysphagia, unspecified; R19.8 Other specified symptoms and signs involving the digestive system and abdomen; Z79.01 Long term (current) use of anticoagulants; Z86.0100 Personal history of colon polyps, unspecified; Z86.73 Personal history of transient ischemic attack (TIA), and cerebral infarction without residual deficits; Z86.718 Personal history of other venous thrombosis and embolism | CPT/HCPCS: 99212 ==

== ENCOUNTER 2024-10-13 11:26 | Outpatient (REF) | payer MEDICARE, MEDICAID, SELFPAY ==
--- OUTSIDE RECORDS SUMMARY | 2024-10-13 12:41 | XMS_ITS | Encounter Summary ---
Author Organization [facility] Address [address] [place] [address] Care Team Providers Care Health/Safety Job Titles Name Role Phone Unavailable Primary Care Provider Unavailabl e Encounter Details Date Type Department Care Team (Latest Contact Info) Description 08/10/2019 Abstract [facility] CONVERSIONS Dental, Provider, DDS Social History [...]
--- OUTSIDE RECORDS SUMMARY | 2024-10-13 12:41 | XMS_ITS | Clinical Summary ---
Author Organization [employer] Address [address] [facility] [address] [place] [address] Care Team Providers Care Event Lighting Specialist Name Role Phone Unavailable Primary Care Provider [...]
--- OUTSIDE RECORDS SUMMARY | 2024-10-13 12:42 | XMS_ITS ---
Author Organization 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 Name Role Phone Manan Reinoso MD Primary Care Provider UnavailAndrzej Ann Unavailable [phone] Allergies No Known Allergies REASON FOR VISIT [...] Polyneuropathy due to diabetes mellitus type I (061105653) Type 1 diabetes mellitus with diabetic polyneuropathy (E10.42) Active confirmed Problem Acquired hammer toe of right foot (7431613627272938 ) Other hammer toe(s) (acquired), right foot (M20.41) Active confirmed Problem Acquired hammer toe of left foot (6278887516231772 ) Other hammer toe(s) (acquired), left foot (M20.42) Active confirmed Vital Signs Height 5ft 8in in 07/28/2024 Weight 235 lbs 07/28/2024 BMI 35.73 kg/m2 07/28/2024 Blood pressure systolic 120 mm Hg 07/28/20 24 Blood pressure diastolic 80 mm Hg 024 Procedures Procedure Date Ordered Date Performed Result Body Sit e 60078-SFVADXJ NAIL, 1-5 07/28/2024 N/A 27970-NLJN SKIN LESIONS, OVER 4 07/28/2024 N/A H5359-XPLEOAER DYSTROPHIC NAILS ANY # 07/28/2024 N/A Encounters Encounter Location Date Provider Diagnosis [facility] [address] [address] 07/28/2024 Andrzej Camargo Type 1 diabetes mellitus [...] INSTRUCTIONS.pdf) Pending Test Test Name Order Date 90489-ZFVYQEL NAIL, 1-5 07/28/2024 68880-GHPJ SKIN LESIONS, OVER 4 07/28/20 24 C6002-AGJRKUQP DYSTROPHIC NAILS ANY # Next Appt Details Follow Up: prn, Reason: Provider Name:Andrzej Camargo , 11/03/2024 03:00:00 PM, [address] [place] [address], [address], Procedure Notes * Category Sub-Category Detail Notes [...] instrumentation by the physician of record - 05081 Debride Nails 1-5 Procedure: Due to the [...] necessary to maintain effective symptomatic relief - 24110 Nail Reduction Nail Reduction (-27) Trimming o [...] Notes * SAMMYKirbyDOB:1950 ( 74 yo M)Acc No.[id number]:07/28/2024 Progress Note Patient:?Kirby CHRISTIANSON Provider:?Andrzej Camargo DPM :1950???Age:73 Y???Sex:Male Jason e:07/28/2024 Address: [address], [facility] [place], [id number] Pcp:Manan Reinoso MD Subjective: * Chief Complaints: [...] L5 03/06cataract surgery appendectomy right leg infection- [facility] 03/2024 * Hospitalization/Major Diagno stic Procedure:?Denies Past [...] necessary to maintain effective symptomatic relief - 99730.?Keratoma Treatment:?Parring or Cutting of Benign Hyperkeratotic Lesion(s)?(-57) [...] instrumentation by the physician of record - 74701.?Nail Reduction:?Nail Reduction?(-27) Trimming of all dystrophic nails [...] or bed tissue - G0127.? * Procedure Codes:?70384 TRIM SKIN LESIONS, OVER 4, Modifiers: XS 53389 DEBRIDE NAIL, 1-5, Modifiers: XS G0127 TRIMMING [...] Camargo DPM Date:?2023 Generated for Zachary wells/Concepcion/Jasmeet on:?10/13/2024 12:42 PM EST History and Physical Notes * [...]
--- OUTSIDE RECORDS SUMMARY | 2024-10-13 12:42 | XMS_ITS | Continuity of Care Document ---
Author Name [facility] Organization [facility] Care Team Providers Care Heading And Priming Operator Name Role Phone [facility] Unavailable Unavailable Problems Combined list of problems from Department of Defense and Veterans Affairs facilities. It does not include entries that were removed or entered in error. Problem Status Onset Date Problem Type Date of Resolution Comments Source MRSA SKIN INFECTION Active 04/26/20 09 Condition [place] Allergy to peanuts Active Condition [facility] CAD - Coronary Artery Disease (SCT 84349389) Active Condition [place] Cataract, Cortical (Senile) Active Condition [facility] Cataract, PSC/Post Subcapsular Active Condition [facility] Cerebellar stroke syndrome Active Condition May 30, 2020 Entered By: AMBIKA KNIGHT Comment: 03/2020 d/c summary scanned into [facility] Cervical Radiculopathy Active Condition Sep 23, [...] [facility] [place] [facility] Claudication (SNOMED CT 647517535) Active Condition [place] Cocaine abuse, continuous use Active Condition [facility] Colorectal Cancer Screening Results Documented and Reviewed (PV) Active Condition May 23, 2011 Entered By: AMBIKA KNIGHT Comment: colonoscopy 04/26 tics in sigmoid, '15 dr galloway +polyps [place] Computed tomography result abnormal Active Condition February 09, 2018 Entered By: AMBIKA KNIGHT Comment: ct angiogram 12/14/17 negative for PE. R lung nodules. scanned into [facility] Corneal Abrasion (ICD-9-CM 918.1) Active Condition [facility] Coronary artery disease, s/p [place] Active Condition [facility] Cyst, ganglion Active Condition [facility] Depressive disorder Active Condition [facility] Depressive Disorder NOS Active Condition [facility] Diabetes mellitus type 2 Active Condition [facility] DM Active Condition [facility] Elevated Prostate Specific antigen [psa] Active Condition Feb 17, 2013 Entered By: AMBIKA KNIGHT Comment: prostate biopsy negative 01/26 [place] Erectile dysfunction Active Condition [facility] GERD * (ICD-9-CM 530.81) Active Condition [place] HTN Active Condition [facility] hyperlipidemia Active Condition [facility] Hyperlipidemia (SNOMED CT 00020376) Active Condition [facility] Hypertension (SNOMED CT 16482974) Active Condition [facility] 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 Active Condition [place] Impotence of organic origin (ICD-9-CM 607.84) Active Condition [facility] IELD Low back pain Active Condition Jul Entered By: AMBIKA KNIGHT Comment: mri ls spine 06/28/19 scanned into [facility] Low Back Pain * (ICD-9-CM 724.2) Active Condition [facility] Obesity Active [facility] Osteoarthritis Active Condition [facility] IE Peripheral neuropathy due to type 2 [...] By: AMBIKA KNIGHT Comment: significant ischemia 06/28 [place] Postsurgical Status of Cataract Extraction Active Condition Oct 14, 2009 Entered By: AMBIKA KNIGHT Comment: right 09/25 [place] Proliferative retinopathy due to type 2 diabetes mellitus Active Condition [facility] Shoulder Pain Active Condition [facility] Simple upper Gastrointestinal Endoscopy Active Condition May 23, 2011 Entered By: AMBIKA KNIGHT Comment: 04/26 inflammation duodenum/ge junction c/w gerd [place] UTI Active Condition [facility] Diagnosis: ICD-10-CM Z02.89 Encounter for other administrative examinations Active Diagnosis [facility] Diagnosis: ICD-10-CM Z00.8 Encounter for other general examination Active Diagnosis [facility] Diagnosis: ICD-10-CM E11.9 Type 2 diabetes mellitus without complications Active Diagnosis [place] Diagnosis: ICD-10-CM Z46.0 Encounter for fit/adjst of [...] DAY TOPICA L ACTIVE STALLINGS,AL ICE [facility] APIXABAN 5MG TAB TAKE ONE TABLET BY MOUTH ONCE DAILY ORAL ACTIVE STALLINGS,AL ICE 2020 [facility] ASPIRIN 81MG TAB,EC TAKE ONE TABLET BY MOUTH DAILY ORAL ACTIVE STALLINGS,AL ICE 2016 [facility] CARBOXYMETH YLCELLULOSE NA 0.5% SOLN,OPH INSTILL 1 DROP INTO EACH EYE FOUR TIMES A DAY FOR DRY EYE OPHTHA LMIC ACTIVE 06/26/2025 [id number] ANDRIA ALEGRIA 2023 15 [facility] CHOLECALCIF THALIA 25MCG (1,000UNIT) TAB TAKE ONE TABLET BY MOUTH ONCE DAILY ORAL ACTIVE STALLINGS,AL ICE 2022 [facility] EMPAGLIFLOZ IN 25MG TAB TAKE ONE TABLET BY MOUTH ONCE DAILY ORAL ACTIVE STALLINGS,AL ICE 2022 [facility] FERROUS GLUCONATE 324MG TAB TAKE ONE TABLET BY MOUTH THREE TIMES A WEEK ORAL ACTIVE SHAW GARCIA spring IELD FINASTERIDE 5MG TAB TAKE ONE TABLET BY MOUTH ONCE DAILY ORAL ACTIVE BRONWYN KNIGHT spring IELD GABAPENTIN 100MG CAP TAKE 1 CAPSULE BY MOUTH THREE TIMES A DAY NEEDED ORAL ACTIVE SHWA GARCIA 2023 IELD GLUCAGON 1MG/JEY INJ,EMERGEN CY KIT INJECT 1 INJECTIO N INTRAMUS CULARLY ONE TIME NEEDED FOR LOW BLOOD SUGAR INTRAM USCULA R 07/18/2024 [id number] STALLINGS,AL ICE 2023 1 [facility] GLUCAGON 1MG/JEY INJ,EMERGEN CY KIT INJECT 1 INJECTIO N INTRAMUS CULARLY ONE TIME NEEDED FOR LOW BLOOD SUGAR INTRAM USCULA R 03/07/2024 [id number] 4 STALLINGS,AL ICE 2023 1 [facility] GLUCAGON 1MG/JEY INJ,EMERGEN CY KIT INJECT 1 INJECTIO N INTRAMUS CULARLY ONE TIME NEEDED FOR LOW BLOOD SUGAR INTRAM USCULA R 08/31/2023 [id number] 3 STALLINGS,AL ICE 2022 1 [facility] HYDROCODONE 5MG/ACETAMI NOPHEN 325MG TAB TAKE ONE TABLET BY MOUTH TWICE DAILY NEEDED ORAL ACTIVE SHAW GARCIA 2023 [place] INSULIN,ASP ART,HUMAN (EQV-NOVOLO G) 100 UNIT/ML,FLE XPEN,3ML INJECT 25 UNITS SUBCUTAN EOUSLY THREE TIMES A DAY INJECT 15 MINUTES PRIOR TO MEALS SUBCUT ANEOUS ACTIVE 07/10/2025 [id number] 4 Dm MATTHEW 2023 20 [place] INSULIN,ASP ART,HUMAN (EQV-NOVOLO G) 100 UNIT/ML,FLE XPEN,3ML INJECT 30 UNITS SUBCUTAN EOUSLY EVERY MORNING AND INJECT 27 UNITS AT NOON AND INJECT 26 UNITS EVERY EVENING FOR DIABETES SUBCUT ANEOUS DISCONT INUED BY PROVIDE R 02/06/2025 [id number] 4 STALLINGS,AL ICE 2023 25 [facility] INSULIN,ASP ART,HUMAN (EQV-NOVOLO G) 100 UNIT/ML,FLE XPEN,3ML INJECT 30 UNITS SUBCUTAN EOUSLY THREE TIMES A DAY FOR DIABETES SUBCUT ANEOUS DISCONT INUED 11/07/2024 [id number] 4 STALLINGS,AL ICE 2023 30 [facility] INSULIN,ASP ART,HUMAN (EQV-NOVOLO G) 100 UNIT/ML,FLE XPEN,3ML INJECT 30 UNITS SUBCUTAN EOUSLY EVERY MORNING AND INJECT 30 UNITS AT NOON AND INJECT 26 UNITS EVERY EVENING BEFORE SUPPER SUBCUT ANEOUS DISCONT INUED (EDIT) 08/01/2024 [id number] 3 STALLINGS,AL ICE 2022 30 [facility] INSULIN,GLA RGINE-YFGN 100UNIT/ML INJ PEN,3ML INJECT 40 UNITS SUBCUTAN EOUSLY TWICE DAILY FOR DIABETES SUBCUT ANEOUS ACTIVE 02/06/2025 [id number] 4 STALLINGS,AL ICE 2023 25 [facility] INSULIN,GLA RGINE-YFGN 100UNIT/ML INJ PEN,3ML INJECT 44 UNITS SUBCUTAN EOUSLY TWICE DAILY FOR DIABETES SUBCUT ANEOUS DISCONT INUED (EDIT) 12/23/2024 [id number] 4 STALLINGS,AL ICE 2023 30 [facility] INSULIN,GLA RGINE-YFGN 100UNIT/ML INJ PEN,3ML INJECT 44 UNITS SUBCUTAN EOUSLY TWICE DAILY FOR DIABETES (SAME LANTUS) SUBCUT ANEOUS DISCONT INUED BY PROVIDE R 11/07/2024 [id number] 4 STALLINGS,AL ICE 2023 30 [facility] INSULIN,GLA RGINE-YFGN 100UNIT/ML INJ PEN,3ML INJECT 45 UNITS SUBCUTAN EOUSLY TWICE DAILY (SAME LANTUS) SUBCUT ANEOUS DISCONT INUED (EDIT) 08/01/2024 [id number] 3 STALLINGS,AL ICE 2022 30 [facility] [...] BREAKFAS T ORAL ACTIVE STALLINGS,AL ICE 2019 [facility] PANTOPRAZOL E NA 40MG TAB,EC TAKE ONE TABLET BY MOUTH EVERY MORNING 30 MINUTES BEFORE BREAKFAS T ORAL ACTIVE STALLINGS,AL ICE 2020 [facility] ROSUVASTATI N CA 40MG TAB TAKE ONE TABLET BY MOUTH ONCE DAILY ORAL ACTIVE NADAZDIN- BOSSHALOM PUSHPADEREKKA M 2023 [facility] IELD TADALAFIL 5MG TAB TAKE ONE TABLET BY MOUTH ONCE DAILY ORAL ACTIVE NADAZDIN- BOSKOVIC OGNJENKA M 2023 [facility] IELD TERAZOSIN HCL CAP,ORAL TAKE BY MOUTH ONCE DAILY ORAL ACTIVE NADAZDIN- BOSKOVIC PUSHPAZhaneDEJUANNKA M 2023 IELD VITAMIN B COMPLEX CAP,ORAL TAKE BY MOUTH ON SATURDAY ORAL ACTIVE BRONWYN KNIHGT spring IELD Allergies, Adverse Reactions, Alerts Combined list of allergies from Department of Defense and Veterans Affairs facilities. It does not include entries that were removed or entered in error. Substance Category Reaction Severity Reaction type Status Date Reported Comments Source GABAPENTIN Propensity to adverse reactions to drug (finding) Dizziness active 4 [facility] [place]ANUTS Propensity to adverse reactions to substance (finding) Airway constrictio n active 4 [facility] Immunizations Combined list of available immunizations from the Department of Defense and Veterans Affairs facilities. 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 Crab Catcher Status Comments Source INFLUENZA, UNSPECIFIED FORMULATION 2022 [...] DOSE 2 2020 207 complet ed MOD; [id number]; 1 [place] COVID-19 (MODERNA), MRNA, LNP-S, PF, 100 MCG/0.5 ML DOSE 1 2020 207 complet ed MOD; [id number]; 1 [place] INFLUENZA, SEASONAL, INJECTABLE 2018 141 complet ed cvs [facility] PNEUMOCOCCAL CONJUGATE PCV 13 2018 133 complet ed [place] INFLUENZA, SEASONAL, INJECTABLE [address] Reinoso [facility] ZOSTER RECOMBINANT [...] FLU VACCINE (HISTORICAL) 1999 88 complet ed [facility] PNEUMOCOCCAL, UNSPECIFIED [...] Jul 09, 2023 03:20 PM Reporting Lab: [facility] [employer] [address] Performing Lab: [facility] [employer] [address] [email or web address] BASIC METABOLI C PANEL (fasting ) GLUCOSE [MASS/VOLU ME] IN SERUM OR PLASMA 200 mg/dL 65 - 100 07/07 H Specimen Type: SERUM No comment entered. Ordering Provider: CHINO KNIGHT IE Report Released Date/Time: Jul 09, 2023 03:20 PM Reporting Lab: [facility] TG PublishingUSENY[facility] [address] [facility] [address] Performing Lab: [facility] [employer] [address] [email or web address] BASIC METABOLI C PANEL (fasting ) SODIUM [MOLES/VOL UME] IN SERUM OR PLASMA 137 mmol/L 135 - 145 07/07 Specimen Type: SERUM No comment entered. Ordering Provider: CHINO KNIGHT IE Report Released Date/Time: Jul 09, 2023 03:20 PM Reporting Lab: [facility] [address] [facility] [address] Performing Lab: [facility] [address] [facility] [address] [place] BASIC METABOLI C PANEL (fasting ) POTASSIUM [MOLES/VOL UME] IN SERUM OR PLASMA 4.9 mmol/L 3.5 - 5.0 07/07 Specimen Type: SERUM No comment entered. Ordering Provider: CHINO KNIGHT IE Report Released Date/Time: Jul 09, 2023 03:20 PM Reporting Lab: [facility] [address] [facility] [address] Performing Lab: [facility] [address] [address] [place] BASIC METABOLI C PANEL (fasting ) CHLORIDE [MOLES/VOL UME] IN SERUM OR PLASMA 106 mmol/L 100 - 110 07/07 Specimen Type: SERUM No comment entered. Ordering Provider: CHINO KNIGHT IE Report Released Date/Time: Jul 09, 2023 03:20 PM Reporting Lab: [facility] [address] [facility] [address] Performing Lab: [facility] [address] [address] [place] BASIC METABOLI C PANEL (fasting ) CARBON DIOXIDE, TOTAL [MOLES/VOL UME] IN SERUM OR PLASMA 24 meq/L 20 - 30 07/07 Specimen Type: SERUM No comment entered. Ordering Provider: CHINO KNIGHT IE Report Released Date/Time: Jul 09, 2023 03:20 PM Reporting Lab: [facility] [address] [facility] [address] Performing Lab: [facility] [address] [address] [place] BASIC METABOLI C PANEL (fasting ) CREATININE [MASS/VOLU ME] IN SERUM OR PLASMA 1.59 mg/dL 0.50 - 1.40 07/07 H Specimen Type: SERUM No comment entered. Ordering Provider: CHINO KNIGHT IE Report Released Date/Time: Jul 09, 2023 03:20 PM Reporting Lab: [facility] [address] [address] Performing Lab: [facility] [address] [address] [place] BASIC METABOLI C PANEL (fasting ) GLOMERULAR FILTRATION RATE/1.73 SQ M.PREDICTE D [VOLUME RATE/AREA] IN SERUM, PLASMA OR BLOOD BY CREATININE -BASED FORMULA (CKD-EPI 2020) 46 mL/min 60 07/07 L Specimen Type: SERUM No comment entered. Ordering Provider: CHINO KNIGHT IE Report Released Date/Time: Jul 09, 2023 03:20 PM Reporting Lab: [facility] [address] [address] Performing Lab: [facility] [address] [address] [place] CBC AND DIFF (AUTO) LEUKOCYTES [#/VOLUME] IN BLOOD BY AUTOMATED COUNT 7.74 10*3/uL 4.50 - 11.00 07/07 Specimen Type: BLOOD No comment entered. Ordering Provider: CHINO KNIGHT IE Report Released Date/Time: Jul 09, 2023 03:20 PM Reporting Lab: [facility] [address] [address] Performing Lab: [facility] [address] [address] [place] CBC AND DIFF (AUTO) ERYTHROCYT ES [#/VOLUME] IN BLOOD BY AUTOMATED COUNT 4.99 10*6/uL 4.23 - 5.66 07/07 Specimen Type: BLOOD No comment entered. Ordering Provider: CHINO KNIGHT IE Report Released Date/Time: Jul 09, 2023 03:20 PM Reporting Lab: [facility] [address] Performing Lab: [facility] [address] [place] CBC AND DIFF (AUTO) HEMOGLOBIN [MASS/VOLU ME] IN BLOOD 14.6 g/dL 12.8 - 17 10/22 /2024 Specimen Type: BLOOD No comment entered. Ordering Provider: CHINO KNIGHT IE Report Released Date/Time: Jul 09, 2023 03:20 PM Reporting Lab: [facility] [address] [facility] [address] Performing Lab: [place] [facility] [address] [address] [place] CBC AND DIFF (AUTO) HEMATOCRIT [VOLUME FRACTION] OF BLOOD BY AUTOMATED COUNT 43.7 39.2 - 50.4 07/07 Specimen Type: BLOOD No comment entered. Ordering Provider: CHINO KNIGHT IE Report Released Date/Time: Jul 09, 2023 03:20 PM Reporting Lab: [facility] [address] [address] Performing Lab: [facility] [address] [place] CBC AND DIFF (AUTO) MCV [ENTITIC VOLUME] BY AUTOMATED COUNT 87.6 fL 82 - 99 07/07 Specimen Type: BLOOD No comment entered. Ordering Provider: CHINO KNIGHT IE Report Released Date/Time: Jul 09, 2023 03:20 PM Reporting Lab: [facility] [address] [address] Performing Lab: [facility] [address] [address] [place] CBC AND DIFF (AUTO) MCHC [MASS/VOLU ME] BY AUTOMATED COUNT 33.4 g/dL 30.8 - 35.1 07/07 Specimen Type: BLOOD No comment entered. Ordering Provider: CHINO KNIGHT IE Report Released Date/Time: Jul 09, 2023 03:20 PM Reporting Lab: [facility] [address] [address] Performing Lab: [place] [facility] [address] [address] [place] CBC AND DIFF (AUTO) PLATELETS [#/VOLUME] IN BLOOD BY AUTOMATED COUNT 241 10*3/uL 140 - 360 07/07 Specimen Type: BLOOD No comment entered. Ordering Provider: CHINO KNIGHT IE Report Released Date/Time: Jul 09, 2023 03:20 PM Reporting Lab: [facility] [address] [address] Performing Lab: [facility] [address] [address] [place] CBC AND DIFF (AUTO) ERYTHROCYT E DISTRIBUTI ON WIDTH [RATIO] BY AUTOMATED COUNT 13.5 12.0 - 16.0 07/07 Specimen Type: BLOOD No comment entered. Ordering Provider: CHINO KNIGHT IE Report Released Date/Time: Jul 09, 2023 03:20 PM Reporting Lab: [facility] [address] [address] Per[facility]: [facility] [address] [address] [place] CBC AND DIFF (AUTO) MONOCYTES [#/VOLUME] IN BLOOD BY AUTOMATED COUNT 0.68 10*3/uL 0.30 - 1.10 07/07 Specimen Type: BLOOD No comment entered. Ordering Provider: CHINO KNIGHT IE Report Released Date/Time: Jul 09, 2023 03:20 PM Reporting Lab: [facility] [address] [address] Performing Lab: [facility] [address] [address] [place] CBC AND DIFF (AUTO) MCH [ENTITIC MASS] BY AUTOMATED COUNT 29.3 pg 26.2 - 32.6 07/07 Specimen Type: BLOOD No comment entered. Ordering Provider: CHINO KNIGHT IE Report Released Date/Time: Jul 09, 2023 03:20 PM Reporting Lab: [facility] [address] Performing Lab: [facility] [address] [address] [place] CBC AND DIFF (AUTO) NEUTROPHIL S/100 LEUKOCYTES IN BLOOD BY AUTOMATED COUNT 65.1 43.7 - 75.8 07/07 Specimen Type: BLOOD No comment entered. Ordering Provider: CHINO KNIGHT IE Report Released Date/Time: Jul 09, 2023 03:20 PM Reporting Lab: [facility] [address] [address] Performing Lab: [place] [facility] [address] [address] [place] CBC AND DIFF (AUTO) LYMPHOCYTE S/100 LEUKOCYTES IN BLOOD BY AUTOMATED COUNT 20.3 14.0 - 42.3 07/07 Specimen Type: BLOOD No comment entered. Ordering Provider: CHINO KNIGHT IE Report Released Date/Time: Jul 09, 2023 03:20 PM Reporting Lab: [facility] [address] [address] Performing Lab: [place] [facility] [address] [address] [place] CBC AND DIFF (AUTO) MONOCYTES/ 100 LEUKOCYTES IN BLOOD BY AUTOMATED COUNT 8.8 5.1 - 13.7 07/07 Specimen Type: BLOOD No comment entered. Ordering Provider: CHINO KNIGHT IE Report Released Date/Time: Jul 09, 2023 03:20 PM Reporting Lab: [place] [facility] [address] [address] Performing Lab: [place] [facility] [address] [address] [place] CBC AND DIFF (AUTO) EOSINOPHIL S/100 LEUKOCYTES IN BLOOD BY AUTOMATED COUNT 4.9 0.4 - 6.8 07/07 Specimen Type: BLOOD No comment entered. Ordering Provider: CHINO KNIGHT IE Report Released Date/Time: Jul 09, 2023 03:20 PM Reporting Lab: [facility] [address] [address] Performing Lab: [facility] [address] [address] [place] CBC AND DIFF (AUTO) BASOPHILS/ 100 LEUKOCYTES IN BLOOD BY AUTOMATED COUNT 0.6 0.1 - 2.0 07/07 Specimen Type: BLOOD No comment entered. Ordering Provider: CHINO KNIGHT IE Report Released Date/Time: Jul 09, 2023 03:20 PM Reporting Lab: [facility] [address] Performing Lab: [place] [facility] [address] [place] CBC AND DIFF (AUTO) NEUTROPHIL S [#/VOLUME] IN BLOOD BY AUTOMATED COUNT 5.04 10*3/uL 2.20 - 7.60 07/07 Specimen Type: BLOOD No comment entered. Ordering Provider: CHINO KNIGHT IE Report Released Date/Time: Jul 09, 2023 03:20 PM Reporting Lab: [facility] [address] [address] Performing Lab: [facility] [address] [address] [place] CBC AND DIFF (AUTO) LYMPHOCYTE S [#/VOLUME] IN BLOOD BY AUTOMATED COUNT 1.57 10*3/uL 1.00 - 3.20 07/07 Specimen Type: BLOOD No comment entered. Ordering Provider: CHINO KNIGHT IE Report Released Date/Time: Jul 09, 2023 03:20 PM Reporting Lab: [facility] [address] [address] Performing Lab: [facility] [address] [address] [place] CBC AND DIFF (AUTO) EOSINOPHIL S [#/VOLUME] IN BLOOD BY AUTOMATED COUNT 0.38 10*3/uL 0.03 - 0.44 07/07 Specimen Type: BLOOD No comment entered. Ordering Provider: CHINO KNIGHT IE Report Released Date/Time: Jul 09, 2023 03:20 PM Reporting Lab: [facility] [address] [address] Performing Lab: [facility] [address] [place] CBC AND DIFF (AUTO) BASOPHILS [#/VOLUME] IN BLOOD BY AUTOMATED COUNT 0.05 10*3/uL 0.01 - 0.13 07/07 Specimen Type: BLOOD No comment entered. Ordering Provider: CHINO KNIGHT IE Report Released Date/Time: Jul 09, 2023 03:20 PM Reporting Lab: [address] [address] Performing Lab: [address] [address] [place] CBC AND DIFF (AUTO) IMMATURE GRANULOCYT ES/100 LEUKOCYTES IN BLOOD BY AUTOMATED COUNT 0.3 0.0 - 0.7 07/07 Specimen Type: BLOOD No comment entered. Ordering Provider: CHINO KNIGHT IE Report Released Date/Time: Jul 09, 2023 03:20 PM Reporting Lab: [address] [address] Performing Lab: [address] [address] [place] CBC AND DIFF (AUTO) IMMATURE GRANULOCYT ES [#/VOLUME] IN BLOOD 0.02 10*3/uL 0.00 - 0.06 07/07 Specimen Type: BLOOD No comment entered. Ordering Provider: CHINO KNIGHT IE Report Released Date/Time: Jul 09, 2023 03:20 PM Reporting Lab: [address] [address] Performing Lab: [address] [address] [place] CBC AND DIFF (AUTO) NRBC % 0.0 0.0 - 0.0 07/07 Specimen Type: BLOOD No comment entered. Ordering Provider: CHINO KNIGHT IE Report Released Date/Time: Jul 09, 2023 03:20 PM Reporting Lab: [address] [address] Performing Lab: [address] [address] [place] CBC AND DIFF (AUTO) NRBC, ABS 0.00 10*3/uL 0.00 - 0.00 07/07 Specimen Type: BLOOD No comment entered. Ordering Provider: CHINO KNIGHT IE Report Released Date/Time: Jul 09, 2023 03:20 PM Reporting [facility]: [facility] [address] [address] Performing Lab: [facility] [address] [address] [place] HEMOGLOB IN A1C PANEL HEMOGLOBIN [...] Jul 09, 2023 03:20 PM Reporting Lab: [address] [address] Performing Lab: [address] [address] [place] LIPID PANEL FASTING CHOLESTERO L [MASS/VOLU ME] IN SERUM OR PLASMA 132 mg/dL 07/07 Specimen Type: SERUM No comment entered. Ordering Provider: CHINO KNIGHT IE Report Released Date/Time: Jul 09, 2023 03:20 PM Reporting Lab: [address] [address] Performing [facility]: [facility] [address] [address] [place] LIPID PANEL FASTING TRIGLYCERI DE [MASS/VOLU ME] IN SERUM OR PLASMA 110 mg/dL 0 - 150 07/07 Specimen Type: SERUM No comment entered. Ordering Provider: CHINO KNIGHT IE Report Released Date/Time: Jul 09, 2023 03:20 PM Reporting Lab: [address] [address] Performing Lab: [address] [address] [place] LIPID PANEL FASTING CHOLESTERO L IN LDL [MASS/VOLU ME] IN SERUM OR PLASMA BY BONITA Phelan 76 mg/dL 0 - 129 07/07 Specimen Type: SERUM No comment entered. Ordering Provider: CHINO KNIGHT IE Report Released Date/Time: Jul 09, 2023 03:20 PM Reporting Lab: [facility] [address] [address] Performing Lab: [facility] [address] [address] [place] LIPID PANEL FASTING CHOLESTERO L.TOTAL/CH OLESTEROL IN HDL [MASS RATIO] IN SERUM OR PLASMA 3.9 07/07 Specimen Type: SERUM No comment entered. Ordering Provider: CHINO KNIGHT IE Report Released Date/Time: Jul 09, 2023 03:20 PM Reporting Lab: [facility] [address] Performing Lab: [facility] [address] [address] [place] LIPID PANEL FASTING CHOLESTERO L IN HDL [MASS/VOLU ME] IN SERUM OR PLASMA 34 mg/dL 40 - 60 07/07 L Specimen Type: SERUM No comment entered. Ordering Provider: CHINO KNIGHT IE Report Released Date/Time: Jul 09, 2023 03:20 PM Reporting Lab: [facility] [address] Performing Lab: [facility] [address] [address] [place] LIVER FUNCTION PROTEIN [MASS/VOLU ME] IN SERUM OR PLASMA 7.5 g/dL 6.0 - 8.3 07/07 Specimen Type: SERUM No comment entered. Ordering Provider: CHINO KNIGHT IE Report Released Date/Time: Jul 09, 2023 03:20 PM Reporting Lab: [facility] [address] Performing Lab: [facility] [address] [facility] LIVER FUNCTION ALBUMIN [MASS/VOLU ME] IN SERUM OR PLASMA 4.2 g/dL 3.5 - 5.0 07/07 Specimen Type: SERUM No comment entered. Ordering Provider: CHINO KNIGHT IE Report Released Date/Time: Jul 09, 2023 03:20 PM Reporting Lab: [facility] [address] [facility] [address] Performing Lab: [facility] [address] [facility] [address] [facility] LIVER FUNCTION ALKALINE PHOSPHATAS E [ENZYMATIC ACTIVITY/V OLUME] IN SERUM OR PLASMA 68 U/L 40 - 150 07/07 Specimen Type: SERUM No comment entered. Ordering Provider: CHINO KNIGHT IE Report Released Date/Time: Jul 09, 2023 03:20 PM Reporting Lab: [facility] [address] [address] Performing Lab: [facility] [address] [facility] LIVER FUNCTION ASPARTATE AMINOTRANS FERASE [ENZYMATIC ACTIVITY/V OLUME] IN SERUM OR PLASMA 23 U/L 5 - 34 07/07 Specimen Type: SERUM No comment entered. Ordering Provider: CHINO KNIGHT IE Report Released Date/Time: Jul 09, 2023 03:20 PM Reporting Lab: [facility] [address] [address] Performing Lab: [facility] [address] [facility] LIVER FUNCTION ALANINE AMINOTRANS FERASE [ENZYMATIC ACTIVITY/V OLUME] IN SERUM OR PLASMA 29 U/L 07/07 Specimen Type: SERUM No comment entered. Ordering Provider: CHINO KNIGHT IE Report Released Date/Time: Jul 09, 2023 03:20 PM Reporting Lab: [facility] [address] [facility] [address] Performing Lab: [facility] [address] [address] [facility] LIVER FUNCTION BILIRUBIN. TOTAL [MASS/VOLU ME] IN SERUM OR PLASMA 0.4 mg/dL 0.2 - 1.2 07/07 Specimen Type: SERUM No comment entered. Ordering Provider: CHINO KNGIHT Report Released Date/Time: Jul 09, 2023 03:20 PM Reporting Lab: [address] [address] Performing Lab: [address] [address] [place] TSH THYROTROPI N [UNITS/VOL UME] IN SERUM OR PLASMA 1.83 u[IU]/mL 0.35 - 5.00 07/07 Specimen Type: SERUM No comment entered. Ordering Provider: CHINO KNIGHT IE Report Released Date/Time: Jul 09, 2023 03:20 PM Reporting Lab: [address] [address] Performing Lab: [address] [address] [place] URINALYS IS COLOR OF URINE Light-Ye llow 07/07 Specimen Type: URINE Comment: If Glucose = >500 and Ketones are positive, please alert the Physician. Ordering Provider: CHINO KNIGHT Report Released Date/Time: Jul 09, 2023 03:20 PM Reporting Lab: [address] [address] Performing Lab: [address] [address] [place] URINALYS IS APPEARANCE OF URINE Clear 07/07 Specimen Type: URINE Comment: If Glucose = >500 and Ketones are positive, please alert the Physician. Ordering Provider: CHINO KNIGHT IE Report Released Date/Time: Jul 09, 2023 03:20 PM Reporting Lab: [facility] [address] [address] Performing Lab: [address] [address] [place] URINALYS IS GLUCOSE [MASS/VOLU ME] IN URINE >1000mg/ dL 07/07 Specimen Type: URINE Comment: If Glucose = >500 and Ketones are positive, please alert the Physician. Ordering Provider: CHINO KNIGHT Report Released Date/Time: Jul 09, 2023 03:20 PM Reporting Lab: [facility] [address] [address] Performing Lab: [facility] [address] [place] URINALYS IS KETONES [MASS/VOLU ME] IN URINE BY TEST STRIP NEGATIVE mg/dL 07/07 Specimen Type: URINE Comment: If Glucose = >500 and Ketones are positive, please alert the Physician. Ordering Provider: CHINO KNIGHT Report Released Date/Time: Jul 09, 2023 03:20 PM Reporting Lab: [facility] [address] [address] Performing Lab: [facility] [address] [place] URINALYS IS ERYTHROCYT ES [PRESENCE] IN URINE SEDIMENT BY LIGHT MICROSCOPY NEGATIVE mg/dL 07/07 Specimen Type: URINE Comment: If Glucose = >500 and Ketones are positive, please alert the Physician. Ordering Provider: CHINO KNIGHT Report Released Date/Time: Jul 09, 2023 03:20 PM Reporting Lab: [facility] [address] [address] Performing Lab: [facility] [address] [place] URINALYS IS PROTEIN [MASS/VOLU ME] IN URINE BY TEST STRIP 20 mg/dL 07/07 Specimen Type: URINE Comment: If Glucose = >500 and Ketones are positive, please alert the Physician. Ordering Provider: CHINO KNIGHT Report Released Date/Time: Jul 09, 2023 03:20 PM Reporting Lab: [facility] [address] [address] Performing Lab: [facility] [address] [place] URINALYS IS NITRITE [PRESENCE] IN URINE NEGATIVE mg/dL 07/07 Specimen Type: URINE Comment: If Glucose = >500 and Ketones are positive, please alert the Physician. Ordering Provider: CHINO KNIGHT Report Released Date/Time: Jul 09, 2023 03:20 PM Reporting Lab: [address] [address] Performing Lab: [address] [address] [place] URINALYS IS BILIRUBIN. TOTAL [PRESENCE] IN URINE NEGATIVE mg/dL 07/07 Specimen Type: URINE Comment: If Glucose = >500 and Ketones are positive, please alert the Physician. Ordering Provider: CHINO KNIGHT Report Released Date/Time: Jul 09, 2023 03:20 PM Reporting Lab: [address] [address] Performing Lab: [address] [address] [place] URINALYS IS SPECIFIC GRAVITY OF URINE BY REFRACTOME TRY 1.031 1.016 - 1.022 07/07 H Specimen Type: URINE Comment: If Glucose = >500 and Ketones are positive, please alert the Physician. Ordering Provider: CHINO KNIGHT Report Released Date/Time: Jul 09, 2023 03:20 PM Reporting Lab: [facility] [address] Performing Lab: [address] [address] [place] URINALYS IS PH OF URINE BY TEST STRIP 5.5 5.0 - 9.0 07/07 Specimen Type: URINE Comment: If Glucose = >500 and Ketones are positive, please alert the Physician. Ordering Provider: CHINO KNIGHT Report Released Date/Time: Jul 09, 2023 03:20 PM Reporting Lab: [address] [address] Performing Lab: [facility] [address] [facility] [address] [place] URINALYS IS UROBILINOG EN [MASS/VOLU ME] IN URINE BY TEST STRIP Normalmg /dL <2.0 - 2.0 07/07 Specimen Type: URINE Comment: If Glucose = >500 and Ketones are positive, please alert the Physician. Ordering Provider: CHINO KNIGHT Report Released Date/Time: Jul 09, 2023 03:20 PM Reporting Lab: [facility] [address] Performing Lab: [facility] [address] [place] URINALYS IS LEUKOCYTE ESTERASE [PRESENCE] IN URINE BY TEST STRIP NEGATIVE 07/07 Specimen Type: URINE Comment: If Glucose = >500 and Ketones are positive, please alert the Physician. Ordering Provider: CHINO KNIGHT Report Released Date/Time: Jul 09, 2023 03:20 PM Reporting Lab: [facility]SE[address] [address] Performing Lab: [facility] [address] [place] MICROALB UMIN CREATINI NE RATIO PANEL MICROALBUM IN/CREATIN INE [MASS RATIO] IN URINE 116.9 mg/g 0 - 29.9 05/08 H Specimen Type: URINE No comment entered. Ordering Provider: JESSICA RAMOS Report Released Date/Time: Nov 12, 2023 03:09 PM Reporting Lab: [facility] [address] Performing Lab: [facility] [address] [facility] MICROALB UMIN CREATINI NE RATIO PANEL MICROALBUM IN [MASS/VOLU ME] IN URINE 11.6 mg/dL 05/08 Specimen Type: URINE No comment entered. Ordering Provider: JESSICA RAMOS Report Released Date/Time: Nov 12, 2023 03:09 PM Reporting Lab: [facility] [place] [facility] [address] [facility] [address] Performing Lab: [facility] [place] [facility] [address] [facility] [address] [facility] [place] [facility] MICROALB UMIN CREATINI NE RATIO PANEL CREATININE [MASS/VOLU ME] IN URINE 99.23 mg/dL 05/08 Specimen Type: URINE No comment entered. Ordering Provider: JESSICA RAMOS Report Released Date/Time: Nov 12, 2023 03:09 PM Reporting Lab: [facility] [place] [facility] [address] [facility] [address] Performing Lab: [facility] [place] [facility] [address] [facility] [address] [facility] PO4 PHOSPHATE [MASS/VOLU ME] IN SERUM OR PLASMA 2.4 mg/dL 2.5 - 5.0 05/07 L Specimen Type: SERUM No comment entered. Ordering Provider: JESSICA RAMOS Report Released Date/Time: Nov 12, 2023 03:09 PM Reporting Lab: [facility] [place] [facility] [address] [facility] [address] Performing Lab: [facility] [place] [facility] [address] [facility] [address] [facility] VITAMIN D (25-OH) 25-HYDROXY VITAMIN D3 [MASS/VOLU ME] IN SERUM OR PLASMA 30 ng/mL 20 - 50 05/07 Specimen Type: SERUM No comment entered. Ordering Provider: JESSICA RAMOS Report Released Date/Time: Nov 12, 2023 03:09 PM Reporting Lab: [facility] [place] [facility] [address] [facility] [address] Performing Lab: [facility] [place] [address] [address] [facility] [place] [facility] Vital Signs Combined list of inpatient and outpatient Vital Signs from Department of Defense and Veterans Affairs, ranging from 12 months to all on record, depending upon the facility. Vital Sign Value Date Comments Source SYSTOLIC BLOOD PRESSURE 134 07/10/20 15:21:28 [place] DIASTOLIC BLOOD PRESSURE 65 024 15:21:28 [place] PULSE OXIMETRY 96 07/10/2024 15:21:28 [place] WEIGHT 247.8 07/10/2024 15:21:28 [place] BMI 38kg/m2 07/10/2024 15:21:28 [place] TEMPERATURE 97.9 07/10/2024 15:21:28 [place] PULSE 66 07/10/2024 15:21:28 [place] SYSTOLIC BLOOD PRESSURE 113 05/12/20 15:44:12 [facility] [id number] 06/06 [facility] OFF[facility] O/P EST MOD 30-39 MIN [id number] Diagnos is: ICD-10- CM N18.31 Chronic kidney disease , stage 3a
[place] RAMOS 06/11 [facility] En[facility] [id number] 06/20 [facility] En[facility] [id number] 06/20 [facility] En[facility] [id number] 06/25 [facility] [place] OFFICE O/P EST MOD 30-39 MIN [id number] Diagnos is: ICD-10- CM H69.93 Unspeci fied Eustach susana tube disorde r, bilater al
LEXIS KNIGHT 07/09 [place] [facility] En[facility] [id number] 07/09 [facility] OFF[facility] O/P EST HI 40-54 MIN [id number] Diagnos is: ICD-10- CM E11.9 Type 2 diabete s mellitu 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< br/> STALLINGS,ALI CE 08/01 [facility] OFF/OP EST JANUARY X REQ PHY/QHP [id number] Diagnos is: ICD-10- CM E11.9 Type 2 diabete s mellitu 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< br/> JANEEN CASTRO 08/01 [facility] CONT GLUC MNTR ANALYSIS I&R [id number] Diagnos is: ICD-10- CM E11.9 Type 2 diabete s mellitu 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< br/> STALLINGSALI CE 08/01 [facility] En[facility] [id number] 08/05 [facility] En[facility] [id number] 08/15 [facility] En[facility] [id number] 08/21 [facility] En[facility] [id number] 08/29 [facility] FIT SPECTACLES BIFOCAL [id number] Diagnos is: ICD-10- CM Z46.0 Encount er for fit/adj st of spectac les and contact lenses< br/> ALLAN NOVAK 09/02 [facility] En[facility] [id number] 10/14 [facility] INTRM OPH EXAM EST PATIENT [id number] Diagnos is: ICD-10- CM E11.9 Type 2 diabete s mellitu 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< br/> JP HUGGINS 10/31 [facility] En[facility] [id number] 11/01 [facility] OFFICE O/P [place] HI 40 MIN [id number] Diagnos is: ICD-10- CM E11.9 Type 2 diabete s mellitu 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< br/> RUTHIE STALLINGS 11/07 [facility] CONT GLUC MNTR PHYS/QHP EQP [id number] Diagnos is: ICD-10- CM E11.9 Type 2 diabete s mellitu 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< br/> JANEEN CASTRO 11/07 [facility] Outpatient Encounter [id number] 11/11 [facility] OFFICE O/P EST MOD 30 MIN [id number] Diagnos is: ICD-10- CM E11.22 Type 2 diabete s 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
[place] RAMOS 11/12 [facility] En[facility] [id number] 12/11 [facility] [place] [facility] (6[facility]GE) QNHP OL DIG ASSMT&MGMT 5-10 [id number] Diagnos is: ICD-10- CM E11.9 Type 2 diabete s mellitu 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< br/> DAMARIS,CHR ISTINE F 12/17 [facility] En[facility] [id number] 12/22 [facility] En[facility] [id number] 01/11 [facility] En[facility] [id number] 01/30 [facility] OFF/OP EST MAY X REQ PHY/QHP [id number] Diagnos is: ICD-10- CM E11.9 Type 2 diabete s mellitu 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< br/> SIMONSVICT ORIA A 02/05 [facility] [place] [facility] OFFICE O/P EST HI 40 MIN [id number] Diagnos is: ICD-10- CM E11.9 Type 2 diabete s mellitu 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< br/> STALLINGS,ALI CE 02/05 [facility] [place] [facility] CONT GLUC MNTR ANALYSIS I&R [id number] Diagnos is: ICD-10- CM E11.9 Type 2 diabete s mellitu 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< br/> STALLINGS,ALI CE 02/05 [facility] [place] [facility] [place] QNHP OL DIG ASSMT&MGMT 5-10 [id number] Diagnos is: ICD-10- CM E11.9 Type 2 diabete s mellitu 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< br/> RAULSWTEHA SINCLAIR HOLCOMB 02/06 [place] [facility] Outpatient Encounter [id number] 02/16 [facility] Outpatient Encounter [id number] Diagnos is: ICD-10- CM Z02.89 Encount er for other adminis trative examina tions<b r/> SEVEN KIDD 03/17 [facility] [place] [facility] [place] MTMS BY PHARM ADDL 15 MIN [id number] Diagnos is: ICD-10- CM E11.9 Type 2 diabete s mellitu 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< br/> DARVIN MATTHEW A 04/02 [place] [facility] OFF/OP CNSLTJ NEW/EST LOW 30 [id number] Diagnos is: ICD-10- CM H90.A21 Snsrnrl hear loss, uni, r ear, with rstrcd hear cntra side
RENETTA FR[place] 04/16 [facility] [place] [facility] OFFICE O/P EST MOD 30 MIN [id number] Diagnos is: ICD-10- CM E11.22 Type 2 diabete s 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
[place] RAMOS 05/12 [facility] [place] [facility] Outpatient Encounter [id number] Diagnos is: ICD-10- CM Z02.89 Encount er for other adminis trative examina tions<b r/> NICHOLAS CHANDRA 05/14 [facility] [place] Outpatient Encounter [id number] 05/20 [place] [facility] En[facility] [id number] 1.05/20 [facility] En[facility] [id number]/26 [facility] En[facility] [id number] 06/17 [facility] INTRM OPH EXAM EST PATIENT [id number] 1. 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, r eye<br/ > ANDRIA ALEGRIA 06/25 [facility] FIT SPECTACLES MULTIFOCAL [id number] Diagnos is: ICD-10- CM Z46.0 Encount er for fit/adj st of spectac les and contact lenses< br/> ANDRIA ALEGRIA 06/25 [facility] [place] [facility] [place] MTMS BY PHARM ADDL 15 MIN [id number] Diagnos is: ICD-10- CM E11.9 Type 2 diabete s mellitu 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< br/> DARVIN MATTHEW A 07/09 [place] En[place] [id number] 07/09 [facility] [place] Outpatient Encounter [id number] Diagnos is: ICD-10- CM Z00.8 Encount er for other general examina tion
NADAZDIN-B OSKOVPUSHPA GARNER 07/10 [facility] [place] [facility] [place] [facility] Outpatient Encounter [id number] Diagnos is: ICD-10- CM Z02.89 Encount er for other adminis trative examina tions<b r/> NICHOLAS CHANDRA 08/27 [facility] [place] [facility] Outpatient Encounter [id number] 09/11 [place] [facility] [place] [facility] Outpatient Encounter [id number] 10/09 [facility] [place] [facility] Social History Combined list of available smoking, tobacco, and other social history from Department of Defense and Veterans Affairs facilities. Social History Type Response Date Comment Source Tobacco smoking status [facility] QU[facility] 15 YRS OR MORE 07/09/2023 [facility] [place] [facility] [place] [facility] [place] [facility] History of tobacco use [facility] NEVER USED 05/11/2021 [facility] [place] [facility] History of tobacco use [facility] NEVER USED 02/03/2019 [place] History of tobacco use LIFETIME NON-TOBACCO USER 01/13/2018 [place] History of tobacco use LIFETIME NON-TOBACCO USER 01/04/2017 [place] History of tobacco use LIFETIME NON-TOBACCO USER 12/23/2015 [place] History of tobacco use LIFETIME NON-TOBACCO USER 11/27/2005 patient reportssmoking only crack coccaine [place] History of tobacco use LIFETIME NON-SMOKER 01/22/2003 [place] History of tobacco use LIFETIME NON-TOBACCO USER 08/18/2001 pt states he has never smoked [place] History of tobacco use LIFETIME NON-SMOKER 05/14/2001 [place] Plan of Care List of future care activities from Department of [facility] Affairs facilities. Additional future care activities may be listed in the Assessment and Plan section. Date/Time Care Activity Care Activity Detail Facili ty 10/28/2024 AMBULATORY - MEDICINE AMBULATORY - [facility]IC[place] [facility] [place] [facility] 11/05/2024 AMBULATORY - MEDICINE AMBULATORY - [place] [facility] [place] [facility] 11/10/2024 AMBULATORY - MEDICINE AMBULATORY - [facility] [facility] [place] [facility] 12/15/2024 AMBULATORY - MEDICINE AMBULATORY - [facility]ICI [place] [facility] [place] [facility] 11/12/2024 Laboratory - [facility] Acupuncturist ry Order BASIC METABOLIC PANEL (non-fasting) BLOOD (SST-SERUM) SP [facility] [place] [facility] 11/12/2024 Laboratory - [facility] Acup[facility]urist ry Order CBC BLOOD (LAV-BLOOD) SP [facility] [place] [facility] 11/12/2024 Laboratory - [facility] Acupuncturist ry Order FERRITIN BLOOD (SST-SERUM) SP [facility] [place] [facility] 11/12/2024 Laboratory - [facility] Acupuncturist ry Order IRON and TIBC PANEL BLOOD (SST-SERUM) [facility] 11/12/2024 Laboratory - Auricular Acupuncturist ry Order LIPID PANEL, NON FASTING BLOOD (SST-SERUM) [facility] [place] 11/12/2024 Laboratory - Auricular Acupuncturist ry Order MICROALBUMIN CREATININE RATIO PANEL URINE (RANDOM) [facility]
--- OUTSIDE RECORDS SUMMARY | 2024-10-13 12:42 | XMS_ITS | Clinical Summary ---
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 Old MD (myocardial infarction) 10/07/2015 Overview (11/19/2023): stentsx2, one in 2003 and RCA stent 04/25 Type 2 diabetes mellitus with renal manifestatio ns 10/07/2015 Encounters Date Type Department Care Team Description 09/22/2024 3:00 PM EST Office Visit [facility] [address] [place] [phone] Sly Welch PA Chronic venous hypertension (idiopathic) with ulcer and inflammation of right lower extremity (CMS/HCC) (Primary Dx); Non-pressure chronic ulcer of other part of right lower leg with fat layer exposed (CMS/HCC); Diabetes mellitus due to underlying condition with diabetic autonomic neuropathy, with long-term current use of insulin (CMS/HCC) 09/15/2024 9:30 AM EST Office Visit [facility] [address] [place] [phone] Sergio Rodriguez MD Chronic venous hypertension (idiopathic) with ulcer and inflammation of right lower extremity (CMS/HCC) (Primary Dx); Non-pressure chronic ulcer of other part of right lower leg with fat layer exposed (CMS/HCC); Diabetes mellitus due to underlying condition with diabetic autonomic neuropathy, with long-term current use of insulin (CMS/HCC) 09/01/2024 2:45 PM EST Office Visit [facility] [address] [place] [address] Sly Welch PA Chronic venous hypertension (idiopathic) with ulcer and inflammation of right lower extremity (CMS/HCC) (Primary Dx); Non-pressure chronic ulcer of other part of right lower leg with fat layer exposed (CMS/HCC); Diabetes mellitus due to underlying condition with diabetic autonomic neuropathy, with long-term current use of insulin (CMS/HCC) 08/18/2024 2:30 PM EST Office Visit [facility] [address] [place] [address] Sly Welch PA Chronic venous hypertension (idiopathic) with ulcer and inflammation of right lower extremity (CMS/HCC) (Primary Dx); Non-pressure chronic ulcer of other part of right lower leg with fat layer exposed (CMS/HCC); Diabetes mellitus due to underlying condition with diabetic autonomic neuropathy, unspecified whether intermodal dispatcher insulin use (CMS/HCC) 08/11/2024 [facility]phone [facility] [address] [phone] Vanessa Joy [place] DME request (Oxygen therapy SWO sent to [facility]. Fax confirmation received.) 08/04/2024 2:45 PM EST Office Visit [facility] [address] [place] [phone] Sly Welch PA Non-pressure chronic ulcer of other part of right lower leg with fat layer exposed ([facility]/HCC) (Primary Dx); Diabetes mellitus due to underlying condition with diabetic autonomic neuropathy, unspecified whether prison insulin use ([facility]); Corns and callosities; Chronic venous hypertension (idiopathic) with ulcer and inflammation of right lower extremity ([facility]/HCC) 07/27/2024 Telephone [facility] [address] [phone] Khushboo Hurt NP dme request 07/14/2024 2:45 PM EDT - 07/14/2024 11:59 PM EDT Hospital Encounter [facility] [address] [place] [address] Sly Welch PA Discharge Disposition: [...] Date Comments Coronary artery disease invo lving iliamna coronary artery with other forms of angina pectoris 10/07/2015 DX:Coronary artery disease involving iliamna coronary artery with other forms of angina [...] type 2 with ophthalmic complications (HCC) Old MD (myocardial infarction) 10/07/2015 D X:Old MD (myocardial infarction); COMMENT: stentsx2, no details, one in 2001, another 2004 Diverticulosis 10/20/2015 DX:Diverticulosi s; COMMENT: CN 2010 Depressive disorder 10/20/2015 DX:Depressiv e disorder GERD (gastroesophageal reflux disease) 10/20/2015 DX:GERD (gastroesophageal reflux disease) History of colon polyps 10/20/2015 DX:Histo ry of colon polyps; COMMENT: Type not specified in transfer notes Type 2 diabetes mellitus wit h vascular disease ([facility]/HCC) 10/07/2015 DX:Type 2 diabetes mellitus with vascular disease (HCC) Diabetic neuropathy ([facility]) 10/20/2015 DX :Diabetic neuropathy (HCC) Type 2 diabetes mellitus wit h neurological manifestations ([facility]) 10/20/2015 DX:Type 2 diabet es mellitus with neurological manifestations (HCC) Type 2 diabetes mellitus wit h renal manifestations ([facility]) 10/07/2015 DX:Type 2 diabetes mellitus with renal manifestations (HCC) Microalbuminuria 04/08/2019 DX:Microalbumin uria CKD (chronic kidney disease) stage 3, GFR 30-59 ml/min ([facility]) 04/08/2019 DX:CKD (chronic kidney dise ase) stage 3, GFR 30-59 ml/min ([facility]) Family History Medical History Relation Name Comments Diabetes Father Heart attack Mother at age 63 Heart attack Sister 1 at age 63 with heart condition, ?not MD Diabetes Sister 2 Relation Name Status Comments [...] condition with diabetic autonomic neuropathy, unspecified whether intermodal dispatcher insulin use (CMS/HCC) DEBRIDEMENT Routine 08/04/2024 2:45 PM EST Non-pressure chronic ulcer of other part of right lower leg with fat layer exposed (CMS/HCC) Diabetes mellitus due to underlying condition with diabetic autonomic neuropathy, unspecified whether intermodal dispatcher insulin use (CMS/HCC) from Last 3 Months [...] Documents on File Type Date Recorded Patient Clinical Research Administrator Expl anation Health Care Decision (hx) 02/03/2021 [...] (hx) 01/17/2021 AD WATKINS DIRECTIVE Care Teams Credit Union Teller Relationship Specialty Start Date End Date Manan Reinoso MD [address] [place] [address] PCP - General Internal Medicine 04/06/19
--- OUTSIDE RECORDS SUMMARY | 2024-10-13 12:42 | XMS_ITS ---
Author Organization [facility] Address [address] [facility] [place] [address] Care Team Providers Care Test Automation Architect Name Role Phone Manan Reinoso MD Primary Care Provider Unavailab Andrzej Pacheco Unavailable [phone] Ced Hernandez Unavailable [phone] Allergies No Known Allergies REASON FOR VISIT [...] 04/27/2024 Encounters Encounter Location Date Provider Diagnosis [facility] [place] [address] [place] [address] 04/27/2024 Ced Hernandez Type 1 diabetes mellitus [...] Name:Andrzej Camargo , 11/03/2024 03:00:00 PM, [address] [place], [address], Procedure Notes * Category Sub-Category Detail Notes Keratoma Treatment Parring or Cutting o f Benign Hyperkeratotic Lesion(s) 33924 ( >4 Lesions) - The Benign hyperkeratotic [...] as necessary. Patient chooses, no pharmaceutical tx (72378) Nail Reduction Nail Reduction Trimming of dyst rophic nails performed to reduce/remove overall nail length and girth, by manual and electrical means with use of a nail nipper and/or dremel, to more viable healthy nail plate or bed tissue 6-10 (G0127) Progress Notes * SAMMY KirbyDOB:1950 ( 73 yo M)Acc No.[id number]:04/27/2024 Progress Note Patient:?Kirby Christianson Provider:?Ced Hernandez DPM :1950???Age:73 Y???Sex:Male Jason e:04/27/2024 Address:[address] [place], [place] [address] Pcp:Manan Reinoso MD Subjective: * Chief Complaints: * ???Painful thick toenails wh ich are aggrevated by shoes and causes difficulty standing/walking * HPI: ???At Risk footcare:?Pt States Last PCP Visit:?Date?12/16/2023 ???Skin problems:?Nature:?tender, swelling, redness, Open sore.?Location:?Right leg.?Duration:?a month.?Course:?improved.?Treatments:?surgery at [facility] 04/08.? * ROS:?General/Constitutional:?Nausea?denies, denies.?Vomiting?denies, denies.?Hunger Thirst?denies, denies.?Loss [...] 03/06cataract surgery appendectomy right leg infection- [facility] 03/2024 * Hospitalization/Major Diagno stic Procedure:?Denies Past [...] Exercise. ?Marital status: . ?Occupation: Retired-Worked on [employer]. * Medications:?TakingExtra Dep th Diabetic Shoes with [...] as necessary. Patient chooses, no pharmaceutical tx (68076).?Keratoma Treatment:?Parring or Cutting of Benign Hyperkeratotic Lesion(s)?13891 ( >4 Lesions) - The Benign hyperkeratotic lesions, as described above were pared, and/or cut utilizing a sterile #15 blade, tissue nippers, and/or dremel.?Nail Reduction:?Nail Reduction?Trimming of dystrophic nails performed to reduce/remove overall nail length and girth, by manual and electrical means with use of a nail nipper and/or dremel, to more viable healthy nail plate or bed tissue 6-10 (G0127).? * Procedure Codes:?91525 TRIM SKIN LESIONS, OVER 4, Modifiers: XS 11977 DEBRIDE NAIL, 1-5, Modifiers: XS G0127 TRIMMING DYSTROPHIC NAILS ANY #, Modifiers: XS * Follow Up:?3 Months * Images: * Sign off status: Completed true * Provider:Christiano Hernandez DPM Date:? 024 Generated for Zachary wells/Concepcion/Jasmeet on:?10/13/2024 12:42 PM EST History and Physical Notes * HPI (History of Present Illness) Category Sub-Category Detail Notes Category Not es Skin problems Nature: tender, swelling, redness, Open sore Location: Right leg Duration: a month Course: improved Treatments: surgery at [facility] 04/08 At Risk footcare Pt States Last [...]
--- OUTSIDE RECORDS SUMMARY | 2024-10-13 12:43 | XMS_ITS | Encounter Summary ---
Author Organization [facility] Address [address] [place] [address] Care Team Providers Care Superintendent Generating Plant Name Role Phone Manan Reinoso MD Primary Care Provider [phone] Reason for Visit * Reason Comments Wound Care Encounter Details Date Type Department Care Team (Late st Contact Info) Description 09/22/2024 3:00 PM EST Office Visit [facility] [address] [place] [phone] Sly Wlech PA [address] [place] [address] Chronic venous hypertension (idiopathic) with ulcer and [...] [facility] [place] [address] Office Visit Visit Date: 09/22/2024 Patient Name: [...] PM Wound Image Wound Bed Tissue Assessment Granulation;Silvana Epithelialization Palmira-Wound Assessment Peeling;Dry Scarred;Dry;Intact Wound Length [...] Discharge Patient directed to check out at manager front and collect visit summary. Dressings applied: Lotion [...] neuropathy, with long-term current use of insulin (CMS/[facility]) documented in this encounter Additional Health Concerns Active Problems Noted Date Diagnosed Date Impaired Tissue 08/04/2024 Education needed on impact of smoking on wound 1 10/04/2023 Education needed related to ulceration/compromised skin integrity. 08/04/2024 documented as of this encounter Care Teams Superintendent Generating Plant Relationship Specialty Start Date End Date Manan Reinoso MD [address] [place] [address] CHRIS Wolf PCP - General Internal Medicine 04/06/19 documented as of this encounter
--- OUTSIDE RECORDS SUMMARY | 2024-10-13 12:43 | XMS_ITS | Encounter Summary ---
[facility] Address [address] [place] [address] Care Team Providers Care Drug Enforcement Administration Agent Name Role Phone Manan Reinoso MD Primary Care Provider [phone] Reason for Visit * Reason Comments Wound Care Encounter Details Date Type Department Care Team (Late st Contact Info) Description 09/15/2024 9:30 AM EST Office Visit [facility] [address] [place] [phone] Sergio Rodriguez MD [address] [place] [address] Chronic venous hypertension (idiopathic) with ulcer and [...] any questions or concerns, please contact the [facility] at . Follow up(s)/ Referrals: Vascular: [facility] in August Custodial: N/A Additional Orders: Increase protein in your diet to help promote wound healing Edema Control: If your compression wrap(s) feel to tight, please elevate your leg(s) about heart level. If your wrap(s) are becoming painful and/or you loose sensation of toes/ are having toe discoloration (a change from your baseline), please remove / unwrap compression and notify [facility] [place] at . Tubigrip to right lower extremity. [...] [facility] [place] [address] Office Visit Visit Date: 09/15/2024 Patient Name: [...] AM Wound Image Wound Bed Tissue Assessment Granulation;[place] Unable to assess Palmira-Wound Assessment Peeling;Dry Scarred;Dry;Intact [...] any questions or concerns, please contact the [facility] [place] at . Follow up(s)/ Referrals: Vascular: [facility] in August Custodial: N/A Additional Orders: Increase protein in your diet to help promote wound healing Edema Control: If your compression wrap(s) feel to tight, please elevate your leg(s) about heart level. If your wrap(s) are becoming painful and/or you loose sensation of toes/ are having toe discoloration (a change from your baseline), please remove / unwrap compression and notify [facility] at . Tubigrip to right [...] Discharge Patient directed to check out at tennis desk team member and collect visit summary with wound care [...] neuropathy, with long-term current use of insulin (CMS/[facility]) documented in this encounter Additional Health Concerns Active Problems Noted Date Diagnosed Date Impaired Tissue 08/04/2024 Education needed on impact of smoking on wound 1 10/04/2023 Education needed related to ulceration/compromised skin integrity. 08/04/2024 documented as of this encounter Care Teams Drug Enforcement Administration Agent Relationship Specialty Start Date End Date Manan Reinoso MD [address] [place] Wolf [place] PCP - General Internal Medicine 04/06/19 documented as of this encounter
--- OUTSIDE RECORDS SUMMARY | 2024-10-13 12:43 | XMS_ITS | Patient Health Record ---
Author Organization [facility] Address [address] [facility] [place] [address] Care Team Providers Care Veneer Clipper Name Role Phone Manan Reinoso MD Primary Care Provider Unavailab Andrzej Pacheco Unavailable [phone] Ced Hernandez Unavailable [phone] Allergies No Known Allergies Reason For Referral [...] Problem Acquired hammer toe of right foot (5069300347122587 ) Other hammer toe(s) (acquired), right foot (M20.41) Active confirmed Problem Acquired hammer toe of left foot (5775060644286027 ) Other hammer toe(s) (acquired), left foot (M20.42) Active confirmed Problem Polyneuropathy due to diabetes mellitus type I (668189040) Type 1 diabetes mellitus with diabetic polyneuropathy (E10.42) Active confirmed Vital Signs Blood pressure diastolic 80 mm Hg 07/28/2024 Height 5ft 8in in 07/28/2024 Blood pressure systolic 120 mm Hg 07/28/2024 Weight 235 lbs 07/28/2024 BMI 35.73 kg/m2 07/28/2024 Procedures Procedure Date Ordered Date Performed Result Body Sit e 67133-BGFPCRD NAIL, 1-5 07/28/2024 N/A 91125-IKYV SKIN LESIONS, OVER 4 07/28/2024 N/A K7056-DKFXYVAU DYSTROPHIC NAILS ANY # 07/28/2024 N/A Encounters Encounter Location Date Provider Diagnosis [facility] [address] [address] 10/28/2023 Ced Hernandez Type 1 diabetes mellitus with diabetic polyneuropathy E10.42 ; Skin disease L98.9 ; Hallux valgus (acquired), left foot M20.12 and [facility]guium B[facility] [address] 01/27/2024 Ced Hernandez Type 1 diabetes mellitus with diabetic polyneuropathy E10.42 ; Skin disease L98.9 ; Hallux valgus (acquired), left foot M20.12 ; Tinea unguium B35.1 ; Pain in right toe(s) M79.674 ; Pain in left toe(s) M79.675 and Ingrowing nail L60.[address] [facility] [address] 04/27/2024 Ced Hernandez Type 1 diabetes mellitus with diabetic polyneuropathy E10.42 ; Skin disease L98.9 ; Hallux valgus (acquired), left foot M20.12 ; Tinea unguium B35.1 ; Pain in right toe(s) M79.674 ; Pain in left toe(s) M79.675 and Ingrowing nail L60.[address] [address] 07/28/2024 Andrzej Raman Type 1 diabetes mellitus [...] X ray : Foot, left 3V 12/05/2022 68886-FGRZGKM NAIL, 1-5 07/28/2024 64672-YXEIIUS SKIN/TISSUE 12/05/2022 07350-ESUYMDJ SKIN/TISSUE 01/09/2023 16087-CFTE SKIN LESIONS, OVER 4 02/08/20 23 66894-ROJX SKIN LESIONS, OVER 4 12/06/19 23 90818-MEAB SKIN LESIONS, OVER 4 07/28/20 24 L1257-EUZGQGMO DYSTROPHIC NAILS ANY # L1095-CJLTAJHX DYSTROPHIC NAILS ANY # O1289-KPCWOEED DYSTROPHIC NAILS ANY # Next Appt Details Provider Name:Andrzej Camargo , 11/03/2024 03:00:00 PM, [address] [place] [address], [phone], Insurance Providers Payer Name Payer Address Payer Phone Subscriber Number Group Number Insured Name Patient Relationship to Insured Coverage Start Date Coverage End Date [employer] PPO [address] [place] [phone] [id number] Kirby Christianson Self - patient is the insured Medical (General) History Medical History History ICD Code Back,Hip,and Knee pain Diabetic type ll Poor circulation Stroke ulcer Surgical History Surgery Date(Month/Year) back surgery- Spine L5 03/06 cataract surgery appendectomy right leg infection- [facility] 03/2024 Hospitalization History Reason Date(Month/Year)
--- OUTSIDE RECORDS SUMMARY | 2024-10-13 12:43 | XMS_ITS ---
Author Organization [facility] Address [address] [place] [address] Care Team Providers Care Inker Name Role Phone Manan Reinoso MD Primary Care Provider Unavailab Andrzej Pacheco Unavailable [phone] Ced Hernandez Unavailable [phone] REASON FOR VISIT Painful thick toenails which are aggrevated by shoes and causes difficulty standing/walking Medications Medication SIG (Take, Route, Frequency, Duration) Notes Start Date End Date Status Extra Depth Diabetic Shoes with 3 Pair Custom heat-molded multi-density innersoles for 1 year Dx: Active Encounters Encounter Location Date Provider Diagnosis [facility] [address] [place] [address] 04/27/2024 Ced Hernandez Type 1 diabetes mellitus [...] Provider Name:Andrzej Camargo , 11/03/2024 03:00:00 PM, [address] [place] [address], [phone], Procedure Notes * Category Sub-Category Detail Notes Keratoma Treatment Parring or Cutting o f Benign Hyperkeratotic Lesion(s) 32163 ( >4 Lesions) - The Benign hyperkeratotic [...] as necessary. Patient chooses, no pharmaceutical tx (88650) Nail Reduction Nail Reduction Trimming of dyst rophic nails performed to reduce/remove overall nail length and girth, by manual and electrical means with use of a nail nipper and/or dremel, to more viable healthy nail plate or bed tissue 6-10 (G0127) Progress Notes * Kirby CHRISTIANSONDOB:1950 ( 74 yo M)Acc No.[id number]:04/27/2024 Progress Note Patient:?Kirby CHRISTIANSON Provider:?Ced Hernandez DPM :1950???Age:73 Y???Sex:Male Jason e:04/27/2024 Address:[address] [place] [address], [facility] Pcp:Manan Reinoso MD Subjective: * Chief Complaints: [...] as necessary. Patient chooses, no pharmaceutical tx (40849).?Keratoma Treatment:?Parring or Cutting of Benign Hyperkeratotic Lesion(s)?44035 ( >4 Lesions) - The Benign hyperkeratotic lesions, as described above were pared, and/or cut utilizing a sterile #15 blade, tissue nippers, and/or dremel.?Nail Reduction:?Nail Reduction?Trimming of dystrophic nails performed to reduce/remove overall nail length and girth, by manual and electrical means with use of a nail nipper and/or dremel, to more viable healthy nail plate or bed tissue 6-10 (G0127).? * Procedure Codes:?89932 TRIM SKIN LESIONS, OVER 4, Modifiers: XS , 78943 DEBRIDE NAIL, 1-5, Modifiers: XS , G0127 [...] DPM Date:? 024 Generated for Zachary wells/Concepcion/eTransmitting on:?10/13/2024 12:43 PM EST History and Physical Notes * [...]
[2024-10-13 13:43] LABS: Hematocrit 43.7 % (42.0-52.0); Hemoglobin 14.9 g/dl (14.0-18.0); Mean Corpuscular HGB Conc 34.1 g/dl (31.0-36.0); Mean Corpuscular Hemoglobin 29.9 pg (27.0-33.0); Mean Corpuscular Volume 87.6 fL (80.0-98.0); Mean Platelet Volume 11.7 fL (9.4-12.4); Platelet Count 258 X10*3/uL (160-400); Red Blood Count 4.99 X10*6/uL (4.60-5.80); Red Cell Distribution Width 13.5 % (11.0-16.0); White Blood Count 7.2 X10*3/uL (4.8-10.8)
[2024-10-13 13:48] LABS: INTERNATIONAL NORM RATIO 1.1 (0.9-1.1); Prothrombin Time 13.1 SEC (10.9-12.4)
[2024-10-13 13:56] LABS: Estimated Average Glucose 146 mg/dL; Hemoglobin A1C 193.4894 umol/L; Hemoglobin A1c % 6.7 % (<6.0)
[2024-10-13 14:12] LABS: Alanine Aminotransferase 38 U/L (0-40); Albumin Level 4.2 g/dL (3.5-5.0); Alkaline Phosphatase 66 U/L (39-117); Anion Gap 11 (12-20); Aspartate Amino Transferase 30 U/L (5-37); Bilirubin Total 0.4 mg/dL (0.0-1.0); Blood Urea Nitrogen 23 mg/dL (9-16); Calcium 9.3 mg/dL (8.4-10.2); Carbon Dioxide 28 mmol/L (22-29); Chloride 105 mmol/L (96-108); Estimated Glomerular Filt Rate 46; Glucose Random 184 mg/dL (60-115); Iron 96 mcg/dL (45-160); Percent Iron Saturation 39 % (15-50); Potassium 4.8 mmol/L (3.3-5.1); Sodium 139 mmol/L (135-145); Total Iron Binding Capacity 246 mcg/dL (228-428); Total Protein 7.8 g/dL (6.5-8.0); Unsaturated Iron Binding 150 ug/dL
[2024-10-13 14:32] LABS: Ferritin 117 ng/mL (20-250)
== END 2024-10-13 11:27 | disposition home or self-care (01) ==
LOC: HO.HMGCLDS 11:26
PROVIDERS: PCP Internal Medicine; Visit Provider Internal Medicine
DX: I48.0 Paroxysmal atrial fibrillation (principal); I63.9 Cerebral infarction, unspecified; Z86.711 Personal history of pulmonary embolism; I25.10 Atherosclerotic heart disease of native coronary artery without angina pectoris; K52.9 Noninfective gastroenteritis and colitis, unspecified; D64.9 Anemia, unspecified; E11.9 Type 2 diabetes mellitus without complications; Z86.0100 Personal history of colon polyps, unspecified
CPT/HCPCS: 36415; 80053; 82728; 83036; 83540; 85027; 85610

== ENCOUNTER 2024-12-30 09:11 | Outpatient (REF) | payer MEDICARE, MEDICAID, SELFPAY ==
--- NOTE | ~2024-12-30 | FL_ITS ---
EXAMINATION: XR FLUOROSCOPY ESOPHAGRAM CLINICAL INFORMATION: Dysphagia, patient complaining of episodic food getting stuck in esophagus, with regurgitation several times a week . COMPARISON: None TECHNIQUE: Fluoroscopic air contrast upper GI examination was performed utilizing standard techniques with thin and thick barium and effervescent granules. Numerous spot images were obtained. Several fluoroscopic image hold cine sequences were also obtained. FINDINGS: UPPER GI SERIES: Lateral cine images of the oropharynx and hypopharynx demonstrate normal swallow mechanism with normal epiglottic inversion and soft palate elevation. No laryngeal penetration, glottic or subglottic aspiration identified. No nasopharyngeal reflux present. Hypopharyngeal structures appear normal without evidence of mass or diverticulum. There was no significant cricopharyngeal achalasia. Dual and single contrast images of the esophagus demonstrate normal caliber, contour, and mucosal pattern. No evidence of stricture, mass, or ulcerations identified. Esophageal peristalsis was moderately to severely disordered, with corkscrew appearance of the distal esophagus. Small type I hiatus hernia. Nonobstructing Schatzki's ring at the GE junction. No significant gastroesophageal reflux was seen during the course of the examination and on reflux views. Dual contrast and single contrast images of the stomach demonstrated mildly elongated contour . Normal mucosal pattern without evidence of mass, ulceration, or other abnormality. Contrast freely passed into the gastric antrum and duodenal bulb without delay. Single and air-contrast images of the duodenal bulb demonstrate no abnormality. The duodenal sweep has a normal appearance, course, and mucosal fold appearance. FLUOROSCOPY TIME: 2 minutes, 27 seconds Number of Spot Images:8 Number of cines obtained: 12 DOSE AREA PRODUCT: [id number] uGy-m2 (microgray-meter squared) FL/FL barium swallow with air IMPRESSION: 1. Moderate to severely disordered esophageal peristalsis, with episodic corkscrew appearance of the distal one third of the esophagus. 2. Small type I hiatus hernia. 3. Nonobstructing Schatzki's ring at the GE junction. 4. No definite gastroesophageal reflux identified during the course of the examination. 5. Somewhat elongated stomach without definite mucosal abnormality. Electronically signed by: Jim Coles MD 12/30/2024 10:27 AM EDT
--- OUTSIDE RECORDS SUMMARY | 2024-12-30 10:00 | XMS_ITS | Encounter Summary ---
Author Name [facility] Organization [facility] Address [address] [place] [address] Care Team Providers Care Disability Coordinator Name Role Phone SHAW MOSCOSO Primary Care [...] Name Patient's Relationship to Policy Strickland AARP MED SUPP PRESCRIPT ION MEDIC ARE D Sep 16, 2016 PDPIND [id number] DAYAMI BERGER IS PATIENT AETNA [facility] (WNR) MEDICARE ADVANTAGE [place] INDIV IDUAL - [place] Feb 14, 2022 [id number] DAYAMI BERGER IS PATIENT MEDICAID MEDICAID [facility] Jul 17, 2015 MEDICAI D [id number] DAYAMI BERGER IS PATIENT MEDICARE (WNR) MEDICARE (M) PART A Sep 16, 2010 PART A [id number] YESSI BERGERZhane IS PATIENT MEDICARE (WNR) MEDICARE (M) PART B Sep 16, 2010 PART B [id number] [phone] DAYAMI BERGER IS PATIENT MEDICARE (WNR) MEDICARE (M) PART A Sep 16, 2010 PART A [id number] DAYAMI BERGER IS PATIENT MEDICARE (WNR) MEDICARE (M) PART B Sep 16, 2010 PART B [id number] [phone] DAYAMI BERGER IS PATIENT Selected Encounter This section includes the information on record at NH for the Encounter. Date/Time Encounter Type Encounter Description Reason Pro vider Source Jun 17, 2024 06:11 PM Outpatient Encounter ADMIN PAT ACTIVTIES (MASNONCT) IHE Encounter Template Text not used by NH Plan of Treatment: Future Appointments (+ 6 months) and Future Tests (+/- 45 days) The Plan of Treatment section includes future care activities for the patient from all NH treatmentfacilities. This section includes future appointments and future orders which are active, pending or scheduled. Future Appointments This section includes appointments that were scheduled to occur 6 months from the date of the Encounter, up to a maximum of 20 appointments. The data comes from all NH treatment facilities. Appointment Date/Time Appointment Type Appointme nt Facility Name Jun 25, 2024 03:00 PM AMBULATORY - MEDICINE [facility] [place] [facility] Jul 09, 2024 03:00 PM AMBULATORY MEDICINE [facility] [place] [facility] Jul 10, 2024 03:00 PM AMBULATORY - MEDICINE [facility] Aug 27, 2024 01:00 PM AMBULATORY - MEDICINE [facility] [place] [facility] Oct 28, 2024 03:00 PM AMBULATORY - MEDICINE [facility] [place] [facility] Nov 05, 2024 03:00 PM AMBULATORY - MEDICINE [facility] [place] [facility] Nov 10, 2024 03:00 PM AMBULATORY - MEDICINE [facility] [place] [facility] Lab Results: +/- 30 days of the [...] Type Result - Unit Interpretation Reference Range Specimen Type Comment Jul 07, 2024 07:41 AM [facility] LIPID PANEL FASTING SERUM Specimen Ty pe: SERUM No comment entered. Ordering Provider: AMBIKA KNIGHT Report Released Date/Time: Jul 09, 2023 03:20 PM Reporting Lab: [address] [address] Performing Lab: [address] [address] CHOLESTEROL 132 mg/dL TRIGLYCERIDE 110 mg/dL 0-150 LDL calculated 76 mg/dL 0-129 CHOL/HDL 3.9 HDL CHOLESTEROL 34 mg/dL L 40-60 Jul 07, 2024 07:41 AM [facility] HEMOGLOBIN A1C PANEL BLOOD Specimen T ype: BLOOD Comment: Values obtained from A1C measurements can vary. For atypical A1C assays, a reported value of 7.0 could actually be between 6.72 and 7.28 if measured by a reference method. A reported value of 9.0 could actually be between 8.73 and 9.27. Ref: http://www.ngsp.org/CAPdata.asp Ordering Provider: AMBIKA KNIGHT Report Released Date/Time: Jul 09, 2023 03:20 PM Reporting Lab: [address] [address] Performing Lab: [address] [address] HEMOGLOBIN A1C 6.4 H 4.0-5.6 Jul 07, 2024 07:41 AM [facility] BASIC METABOLIC PANEL (fasting) SERUM Specimen Type: SERUM No comment entered. Ordering Provider: AMBIKA KNIGHT Report Released Date/Time: Jul 09, 2023 03:20 PM Reporting Lab: [address] [address] Performing Lab: [address] [address] UREA NITROGEN 24 mg/dL 7-25 GLUCOSE 200 mg/dL H 65-100 SODIUM 137 mmol/L 135-145 POTASSIUM 4.9 mmol/L 3.5-5.0 CHLORIDE 106 mmol/L 100-110 CO2 24 meq/L 20-30 CREATININE, Serum 1.59 mg/dL H 0.50-1.40 eGFR(CKD-EPI 2020) 46 mL/min L >60 Jul 07, 2024 07:41 AM [facility] LIVER FUNCTION SERUM Specimen Type: SERUM No comment entered. Ordering Provider: AMBIKA KNIGHT Report Released Date/Time: Jul 09, 2023 03:20 PM Reporting Lab: [address] [address] Performing Lab: [address] [address] PROTEIN,TOTAL 7.5 g/dL 6.0-8.3 ALBUMIN 4.2 g/dL 3.5-5.0 ALKALINE PHOSPHATASE 68 U/L 40-150 AST 23 U/L 5-34 ALT 29 U/L BILIRUBIN, TOTAL 0.4 mg/dL 0.2-1.2 Jul 07, 2024 07:41 AM [facility] URINALYSIS URINE S pecimen Type: URINE Comment: If Glucose = >500 and Ketones are positive, please alert the Physician. Ordering Provider: ABMIKA KNIGHT Report Released Date/Time: Jul 09, 2023 03:20 PM Reporting Lab: [address] [address] Performing Lab: [address] [address] UA COLOR Light-Yellow Yellow UA APPEARANCE Clear Clear UA GLUCOSE >1000 mg/dL Negative UA KETONES NEGATIVE mg/dL Negative UA BLOOD NEGATIVE mg/dL Negative UA PROTEIN 20 mg/dL Negative UA NITRITE NEGATIVE mg/dL Negative UA BILIRUBIN NEGATIVE mg/dL Negative UA SPECIFIC GRAVITY 1.031 H 1.016-1.022 UA pH 5.5 5.0-9.0 UA UROBILINOGEN Normal mg/dL <2.0 UA LEUKOCYTE NEGATIVE Negative Jul 07, 2024 07:41 AM STATELINE TSH SERUM Sp ecimen Type: SERUM No comment entered. Ordering Provider: AMBIKA KNIGHT Report Released Date/Time: Jul 09, 2023 03:20 PM Reporting Lab: [address] [address] Performing Lab: [facility] [address] [address] TSH 1.83 u[IU]/mL 0.35-5.00 Jul 07, 2024 07:41 AM STATELINE CBC AND DIFF (AUTO) BLOOD Specimen Ty pe: BLOOD No comment entered. Ordering Provider: AMBIKA KNIGHT Report Released Date/Time: Jul 09, 2023 03:20 PM Reporting Lab: [facility] [address] [address] Performing Lab: [facility] [address] [address] WBC 7.74 10*3/uL 4.50-11.00 RBC 4.99 10*6/uL [...] 0.3 0.0-0.7 IMMATURE GRAN, ABS 0.02 10*3/uL 0.00-0.0 6 NRBC % 0.0 0.0-0.0 NRBC, ABS 0.00 10*3/uL 0.00-0.00 Social History: Smoking Status (Most current) and Tobacco Use (All prior to encounter date) This section includes the most current, and the historical, smoking and tobacco- related health factors from the NH facility where the Encounter took place. Current Smoking Status This section includes the most current smoking, or tobacco-related health factor, from the NH facility where the Encounter took place. Date/Time Current Smoking Status Comment Facil ity Jul 09, 2023 03:03 PM VA-TOBACCO QUIT 15 YRS OR MORE [facility] Tobacco Use History This section includes a history of the smoking, or tobacco-related health factors, that were collected on or before the date of the Encounter. The data comes from the NH facility where the Encounter took place. Date/Time Smoking Status/Tobacco Use Comment F acility Jul 09, 2023 03:03 PM VA-TOBACCO QUIT 15 [facility]RS OR [facility] Jul 05, 2022 01:51 PM VA-TOBACCO NEVER USED [facility] May 11, 2021 01:18 PM VA-TOBACCO NEVER USED [facility] Encounter Notes: All associated encounter notes This section contains the clinical notes associated to the Encounter. Date/Time Encounter Note(s) Provider Source Jun 17, 2024 06:11 PM PHARMACY NOTE: LOCAL TITLE: PHARMACY CUSTOMER CARE MEDICATION RENEWAL STANDARD TITLE: PHARMACY NOTE DATE OF NOTE: JUN 17, 2024@18:11 ENTRY DATE: JUN 17, 2024@18:11:45 AUTHOR: SHARI JOHANSEN EXP COSIGNER: URGENCY: STATUS: COMPLETED Date: Jun Division: [facility] referred by Pharmacy Call Center for medication renewal: Non-controlled/maintenanc e medication Medications requested: [id number] GLUCAGON 1MG/JEY INJ EMERGENCY KIT Defer to specialty clinic To be mailed . Please review and renew if appropriate. *This note was generated by [facility] [facility] Customer Care. If you have any questions or need assistance, do not contact this author. Please refer all questions to your local, on-site pharmacy departments. /jamal/ SHARI JOHANSEN CPhT Nutritional Chemist, [place]/Pharmacy Customer Care Signed: 06/17/2024 18:12 Receipt Acknowledged By: 06/18/2024 06:09 /jamal/ DELMER STALLINGS MD STAFF PHYSICIAN SHARI JOHANSEN [facility]
--- OUTSIDE RECORDS SUMMARY | 2024-12-30 10:01 | XMS_ITS | Clinical Summary ---
Author Organization [employer] Address [address] [place] [address] Care Team Providers Care Academic Physician Name Role Phone Unavailable Primary Care Provider [...] 1964 DTaP/Tdap/Td Vaccines (1 - Tdap) 1971 Pneumococcal Vaccine: 50+ Ye ars (1 of 1 - PCV) 2002 Zoster Vaccines (1 of 2) 2002 COVID-19 Vaccine ( - 2023-2 5 season) [...]
--- OUTSIDE RECORDS SUMMARY | 2024-12-30 10:01 | XMS_ITS | Clinical Summary ---
Author Organization [facility] Address [address] [place] [address] Phone Care Team Providers Care Utility Accounts Director Name Role Phone Manan Reinoso MD Primary Care Provider [phone] Allergies Active Allergy Reactions Criticality Noted Date Comments Nut - Unspecified Anaphylaxis,Swelling High 01/16/20 16 States pecans or almonds allergy , closes throat up Medications blood sugar diagnostic (Accu-Chek Love Plus test strp) test strip USE TO TEST BLOOD SUGAR ONCE A DAY 9 Active apixaban (ELIQUIS) 5 mg tablet Take by mouth. Activ e aspirin 81 mg EC tablet TAKE ONE TABLET BY MOUTH DAILY AT 9AM 2 Active EPINEPHrine 1 mg/mL kit injection Inject as directed See administration instructions. Active ferrous sulfate 325 mg (65 mg elemental iron) tablet TAKE ONE TABLET BY MOUTH DAILY AT 9AM 3 Active empagliflozin (Jardiance) 25 mg tablet Take 1 tablet (25 mg total) by mouth 1 (one) time each day. 1 Active magnesium oxide (MAG-OX) 400 mg (241.3 elemental magnesium) tablet TAKE ONE TABLET BY MOUTH TWICE DAILY @ 9AM & 5PM 2 Active midodrine HCl (MIDODRINE ORAL) Take by mouth. Activ e metoprolol tartrate (LOPRESSOR) 25 mg tablet Take [...] by mouth 1 (one) time each day. 3 Active finasteride (PROSCAR) 5 mg tablet Take 1 tablet (5 mg total) by mouth. Active insulin aspart (NovoLOG U-100 Insulin aspart) 100 unit/mL injection Inject 11 Units under the skin. Active insulin glargine (LANTUS) 100 unit/mL injection Inject 55 Units under the skin. 0 Active gabapentin (NEURONTIN) 100 mg capsule Take 1 capsule (100 mg total) by mouth if needed. Active hydrocodone/ac etaminophen (VICODIN ORAL) Take 5 mg by mouth if needed. 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 ([facility] V24, [facility] V28) 08/04/2024 Diabetes mellitus due to und erlying condition with diabetic autonomic neuropathy ([facility] V24, [facility] V28) 08/04/2024 Corns and callosities 08/04/2024 Chronic venous hypertension (idiopathic) with ulcer and inflammation of right lower extremity ([facility] V24, [facility] V28) 08/04/2024 History of colon polyps 11/19/2023 Overview (11/19/2023): 10/20/2015 Dyspnea on exertion 09/27/2021 Cerebrovascular accident (CVA) ([facility] V24, [facility] V28) 04/13/2021 Overview (11/19/2023): Last Assessment & Plan: [...] Doxazosin was decreased as well Pulmonary embolism ([facility] [place], [facility] V28) Osteomyelitis of toe of righ t foot ([facility] V24, [facility] V28) 06/04/2019 CKD (chronic kidney disease) stage 3, GFR 30-59 ml/min ([facility] V24, [facility] V28) 04/08/2019 Microalbuminuria 04/08/2019 Chronic back pain 11/03/2018 Coronary artery disease invo lving [place] coronary artery of [place] heart without angina pectoris 10/01/2017 Overview (11/19/2023): Last Assessment & Plan: No ischemic or heart failure symptoms. 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 ([facility] V24, [facility] V28) 10/31/2016 Osteoarthritis of spine with radiculopathy, lumb ar region 10/31/2016 Obstructive sleep apnea 01/24/2016 Overview (11/19/2023): [facility] Polysomnogram: Date 12/10/2017; SE 77%; SM 87%; [...] by 2018 diagnostic polysomnogram. Background diabetic retinopathy ([facility] V24, [facility] V28) 10/20/2015 Depressive disorder 10/20/2015 Diabetic neuropathy ([facility] V24, [facility] V28) 0 10/20/2015 DM (diabetes mellitus), type 2 with ophthalmic complications ([facility] V24, [facility] V28) 10/20/2015 Type 2 diabetes mellitus wit h neurological manifestations ([facility] V24, [facility] V28) 10/20/2015 Diverticulosis 10/20/2015 Overview (11/19/2023): CN 2010 GERD (gastroesophageal reflux disease) 6 Onychomycosis 10/20/2015 Primary hypertension 10/20/2015 Overview (11/19/2023): Last Assessment & Plan: No longer experiencing any lightheadedness, continue current regimen. Erectile dysfunction 10/17/2015 BPH (benign prostatic hyperplasia) 10/07/2015 Overview (11/19/2023): Elevated PSA /Laser vaporization with transurethral resection of prostate/ biopsies negative / Dr De La Cruz 2013 Hypercholesteremia 10/07/2015 Overview (11/19/2023): Last Assessment & Plan: Do not see a recent lipid panel, I will order this, goal LDL is less than 70. Old PR (myocardial infarction) 10/07/2015 Overview (11/19/2023): stentsx2, one in 2003 and RCA stent 04/25 Type 2 diabetes mellitus wit h renal manifestations ([facility] V24, [facility] V28) 10/07/2015 Immunizations Name Administration Dates Next Due Influenza [...] Date Comments Coronary artery disease invo lving [place] coronary artery with other forms of angina pectoris 10/07/2015 DX:Coronary artery disease involving [place] coronary artery with other forms of angina pectoris; COMMENT: stentsx2, no details, one in 2001, another 2004 BPH (benign prostatic hyperplasia) 10/07/2015 DX:BPH (benign prostatic hyperplasia) Hypercholesteremia 10/07/2015 DX:Hyperchole steremia Erectile dysfunction 10/17/2015 DX:Erectile dysfunction HTN (hypertension) 10/20/2015 DX:HTN (hyper tension) Onychomycosis 10/20/2015 DX:Onychomycosis Background diabetic retinopa thy ([facility] V24, [facility] V28) 10/20/2015 DX:Background diabetic reti nopathy (HCC) DM (diabetes mellitus), type 2 with ophthalmic complications ([facility] V24, [facility] V28) 10/20/2015 DX:DM (diabetes mellitus), t ype 2 with ophthalmic complications (HCC) Old PR (myocardial infarction) 10/07/2015 D X:Old PR (myocardial infarction); COMMENT: stentsx2, no details, one in 2001, another 2004 Diverticulosis 10/20/2015 DX:Diverticulosi s; COMMENT: CN 2010 Depressive disorder 10/20/2015 DX:Depressiv e disorder GERD (gastroesophageal reflux disease) 10/20/2015 DX:GERD (gastroesophageal reflux disease) History of colon polyps 10/20/2015 DX:Histo ry of colon polyps; COMMENT: Type not specified in transfer notes Type 2 diabetes mellitus wit h vascular disease ([facility] V24, [facility] V28) 10/07/2015 DX:Type 2 diabetes mellitus with vascular disease (HCC) Diabetic neuropathy ([facility] V24, [facility] V28) 10/20/2015 DX:Diabetic neuropathy (HCC) Type 2 diabetes mellitus wit h neurological manifestations ([facility] V24, [facility] V28) 10/20/2015 DX:Type 2 diabetes mellitus with neurological manifestations (HCC) Type 2 diabetes mellitus wit h renal manifestations ([facility] V24, [facility] V28) 10/07/2015 DX:Type 2 diabetes mellitus with renal manifestations ([facility]) Microalbuminuria 04/08/2019 DX:Microalbumin uria CKD (chronic kidney disease) stage 3, GFR 30-59 ml/min ([facility] V24, [facility] V28) 04/08/2019 DX:CKD (chronic kidney disea se) stage 3, GFR 30-59 ml/min ([facility]) Family History Medical History Relation Name Comments Diabetes Father Heart attack Mother at age 63 Heart attack Sister 1 at age 63 with heart condition, ?not PR Diabetes Sister 2 Relation Name Status Comments Father Mother Sister 1 Sister 2 Social History Tobacco Use Types Packs/Day Years Used Date Smoking Tobacco: Never Smokeless Tobacco: Never Alcohol Use Standard Drinks/Week Comments Not Currently 0 (1 standard drink = 0.6 oz pur e alcohol) Sex and Gender Information Value Date Recorded Sex Assigned at Not on file Legal Sex Male 1:14 PM EDT Gender Identity Not on file Sexual Orientation Not on file Obstetrics History Last Filed [...] Annual Retina Eye Exam 1962 RSV Immunization Adult Patients (1 - Risk 60-74 years 1-dose series) [...] Falls Risk Assessment 08/04/2025 08/04/2024 Pneumococcal Vaccine: 50+ Years Completed 05/11/2021, 02/03/2019, 05/08/2010, Additional history [...] patient's age to complete this topic Meningococcal B Vaccine Aged Out No l onger eligible based on patient's age to complete [...] week 4 Care Plan Impaired Tissue No Wurszt, Mireille E, varnish supervisor volume breakdown reduced by X% by week [...] needed related to ulceration/compr omised skin integrity. Mireille Dan RN Additional Health Concerns Active Problems Noted Date Diagnosed Date Impaired Tissue 08/04/2024 Education needed on impact of smoking on wound 1 10/04/2023 Education needed related to ulceration/compromised skin integrity. 08/04/2024 Insurance [employer] MED[employer] ADV[place] Advance Directives Documents on File Type Date Recorded Patient Blueprint Reproducer Expl anation Health Care Decision (hx) 02/03/2021 [...] (hx) 01/17/2021 AD WATKINS DIRECTIVE Care Teams Utility Accounts Director Relationship Specialty Start Date End Date Manan Reinoso MD [address], [place] PCP - General Internal Medicine 04/06/19
--- OUTSIDE RECORDS SUMMARY | 2024-12-30 10:01 | XMS_ITS | Encounter Summary ---
Author Name [facility] [place] [facility] [place] Address [address] [place] [address] Care Team Providers Care Atg Java Developer Name Role Phone SHAW MOSCOSO Primary Care [...] MEDIC ARE D Sep 16, 2016 PDPIND [id number] [phone] DAYAMI BERGER IS PATIENT AETNA [facility] (WNR) MEDICARE ADVANTAGE [place] INDIV IDUAL - [place] Feb 14, 2022 [id number] [phone] DAYAMI BERGER IS PATIENT MEDICAID MEDICAID [facility] Jul 17, 2015 MEDICAI D [id number] DAYAMI BERGER IS PATIENT MEDICARE (WNR) MEDICARE (M) PART A Sep 16, 2010 PART A [id number] [phone] DAYAMI BERGER IS PATIENT MEDICARE (WNR) MEDICARE (M) PART B Sep 16, 2010 PART B [id number] [phone] DAYAMI BERGER IS PATIENT MEDICARE (WNR) MEDICARE (M) PART A Sep 16, 2010 PART A [id number] DAYAMI BERGER IS PATIENT MEDICARE (WNR) MEDICARE (M) PART B Sep 16, 2010 PART B [id number] DAYAMI BERGER IS PATIENT Selected Encounter This section includes the information on record at [place] for the Encounter. Date/Time Encounter Type Encounter Description Reason Provider Source Apr 02, 2024 03:00 PM MTMS BY PHARM JEMMA 15 MIN CLINICAL PHARMACY ICD-10-CM E11.9 Type 2 diabetes mellitus without complications VANDANA MATTHEW [facility] Encounter Template Text not used by [place] Assessments - Encounter Diagnoses This section includes the primary and secondary diagnoses documented for the Encounter. Date/Time Primary/Secondary Diagnosis Diagnosis Name Provider Source Apr 03, 2024 07:47 AM PRIMARY Type 2 diabetes mellitus without complications PAMELA MATTHEW [facility] Plan of Treatment: Future Appointments (+ 6 months) and Future Tests (+/- 45 days) The Plan of Treatment section includes future care activities for the patient from all [place] [facility] This section includes future appointments and future orders which are active, pending or scheduled. Future Appointments This section includes appointments that were scheduled to occur 6 months from the date of the Encounter, up to a maximum of 20 appointments. The data comes from all [place] treatment facilities. Appointment Date/Time Appointment Type Appointme nt Facility Name Apr 16, 2024 03:00 PM AMBULATORY - MEDICINE [place] [facility] [place] [facility] May 12, 2024 03:30 PM AMBULATORY - MEDICINE [place] [facility] [place] [facility] May 14, 2024 08:00 AM AMBULATORY - MEDICINE [place] [facility] [place] [facility] May 20, 2024 03:00 PM AMBULATORY - MEDICINE [place] [facility] [place] [facility] Jun 25, 2024 03:00 PM AMBULATORY - MEDICINE [place] [facility] [place] [facility] Jul 09, 2024 03:00 PM AMBULATORY - MEDICINE [place] [facility] [place] [facility] Jul 10, 2024 03:00 PM AMBULATORY - MEDICINE [facility] Aug 27, 2024 01:00 PM AMBULATORY - MEDICINE [place] [facility] [place] [facility] Social History: Smoking Status (Most current) and Tobacco Use (All prior to encounter date) This section includes the most current, and the historical, smoking and tobacco- related health factors from the [place] facility where the Encounter took place. Current Smoking Status This section includes the most current smoking, or tobacco-related health factor, from the [place] facility where the Encounter took place. Date/Time Current Smoking Status Comment Debbie thao February 03, 2019 10:28 AM DC-TOBACCO NEVER USED [facility] Tobacco Use History This section includes a history of the smoking, or tobacco-related health factors, that were collected on or before the date of the Encounter. The data comes from the [place] facility where the Encounter took place. Date/Time Smoking Status/Tobacco Use Comment F acility Jan 13, 2018 09:49 AM LIFETIME NON-TOBACCO USER [facility] Jan 04, 2017 10:17 AM LIFETIME NON-TOBACCO USER [facility] Dec 23, 2015 08:49 AM LIFETIME NON-TOBACCO USER [facility] Nov 27, 2005 02:55 PM LIFETIME NON-TOBACCO USER patient reportssmoking only crack coccaine [facility] January 22, 2003 10:42 AM LIFETIME NON-SMOKER [facility] Aug 18, 2001 01:54 PM LIFETIME NON-TOBACCO USER pt states he has never smoked [facility] May 14, 2001 02:23 PM LIFETIME NON-SMOKER [facility] Encounter Notes: All associated encounter notes This section contains the clinical notes associated to the Encounter. Date/Time Encounter Note(s) Provider Source Apr 02, 2024 03:10 PM PHARMACY OUTPATIEN T NOTE: LOCAL TITLE: PHARMACY CLINIC NOTE STANDARD TITLE: PHARMACY OUTPATIENT NOTE DATE OF NOTE: APR 02, 2024@15:10 ENTRY DATE: APR 02, 2024@15:10:48 AUTHOR: ROB MATTHEW EXP COSIGNER: URGENCY: STATUS: COMPLETED Patient Name: JESSICA BERGER was seen via [facility] for new visit for diabetes management treatment. : Aug Age: 73 Sex: MALE Race: WHITE Subjective: Pt came in w/ his girlfriend Gene. Pt is using a walker. He was [...] BMI Food insecurity no does occ use [employer] Physical activity: walks with rollator Carbohydrate counting: [...] peanuts 12. UTI 13. Claudication (SNOMED CT 563598983) 14. Elevated Prostate Specific antigen [psa] 15. [...] 25. Corneal Abrasion 26. Hypertension (SNOMED CT 44569311) 27. Onychomycosis * 28. Cataract, PSC/Post Subcapsular 29. Cataract, Cortical (Senile) 30. Cyst, ganglion 31. Cervical Radiculopathy 32. Shoulder Pain 33. Hyperlipidemia (SNOMED CT 44753915) 34. Old Myocardial Infarction 35. Depressive Disorder [...] USE VIEW HOME SCREEN SMART DEVICE SETTINGS CARGO SURVEYOR SET UP CARGO SURVEYOR SET UP HOW/WHEN TO TO USE VIEW HOME SCREEN CARGO SURVEYOR DEVICE SETTINGS VIDYA AND CARGO SURVEYOR TREND ARROWS VIDYA AND CARGO SURVEYOR TREND GRAPHS END SENSOR SESSION REMOVE SENSOR [...] HANDOUTS GIVEN: Dexcom Dedicated Phone Line For [place] patients Sensor change guide--step by step instructions [...] TID - injects before meals - Reviewed [place] lab results - Monitor for s/sx hypoglycemia [...] of Preventive Care: Most recent visit to clerk cashier: non-VA ; last visit 1 months ago [...] monitor and assess /jamal/ ROB MATTHEW CLINICAL ELECTRONICS MANUFACTURER Signed: 04/03/2024 16:15 Receipt Acknowledged By: 04/03/2024 18:52 /jamal/ SHAW MOSCOSO MD PHYSICIAN ROB MATTHEWFIELD
--- OUTSIDE RECORDS SUMMARY | 2024-12-30 10:01 | XMS_ITS | Encounter Summary ---
Author Name [facility] [place] Address [address] [place] [address] Care Team Providers Care Ceramics Test Engineer Name Role Phone SHAW MOSCOSO Primary Care [...] MEDIC ARE D Sep 16, 2016 PDPIND [id number] DAYAMI BERGER IS PATIENT AETNA [facility] (WNR) MEDICARE ADVANTAGE [place] INDIV IDUAL - [place] Feb 14, 2022 [id number] [phone] DAYAMI BERGER IS PATIENT MEDICAID MEDICAID [facility] Jul 17, 2015 MEDICAI D [id number] DAYAMI BERGER IS PATIENT MEDICARE (WNR) MEDICARE (M) PART A Sep 16, 2010 PART A [id number] [phone] YESSI BERGERZhane IS PATIENT MEDICARE (WNR) MEDICARE (M) PART B Sep 16, 2010 PART B [id number] DAYAMI BERGER IS PATIENT MEDICARE (WNR) MEDICARE (M) PART A Sep 16, 2010 PART A [id number] DAYAMI BERGER IS PATIENT MEDICARE (WNR) MEDICARE (M) PART B Sep 16, 2010 PART B [id number] DAYAMI BERGER IS PATIENT Selected Encounter This section includes the information on record at [place] for the Encounter. Date/Time Encounter Type Encounter Description Reason Pro vider Source Dec 17, 2024 10:00 AM Outpatient Encounter ADMIN PAT ACTIVTIES (MASNONCT) IHE Encounter Template Text not used by [place] Plan of Treatment: Future Appointments (+ 6 months) and Future Tests (+/- 45 days) The Plan of Treatment section includes future care activities for the patient from all [place] treatmentfacilities. This section includes future appointments and future orders which are active, pending or scheduled. Future Appointments This section includes appointments that were scheduled to occur 6 months from the date of the Encounter, up to a maximum of 20 appointments. The data comes from all [place] treatment facilities. Appointment Date/Time Appointment Type Appointme nt Facility Name January 18, 2025 03:30 PM [facility] Apr 07, 2025 01:00 PM AMBULATORY - MEDICINE [facility] Social History: Smoking Status (Most current) [...] 09, 2023 03:03 PM VA-TOBACCO FORMER USER [facility] Tobacco Use History This section includes a history of the smoking, or tobacco-related health factors, that were collected on or before the date of the Encounter. The data comes from the [place] facility where the Encounter took place. Date/Time Smoking Status/Tobacco Use Comment F acility Jul 09, 2023 03:03 PM VA-TOBACCO QUIT 15 YRS OR MORE [place] [facility] [place] [facility] Jul 05, 2022 01:51 PM [facility] May 11, 2021 01:18 PM [facility]ACCO [facility] Encounter Notes: All associated encounter notes This section contains the clinical notes associated to the Encounter. Date/Time Encounter Note(s) Provider Source Dec 17, 2024 10:00 AM PHARMACY NOTE: LOCAL TITLE: PHARMACY CUSTOMER CARE MEDICATION RENEWAL STANDARD TITLE: PHARMACY NOTE DATE OF NOTE: DEC 17, 2024@10:00 ENTRY DATE: DEC 17, 2024@10:01:08 AUTHOR: CARRIE BURCH EXP COSIGNER: URGENCY: STATUS: COMPLETED Date: Dec Division: [facility] referred by Pharmacy Call Center for medication renewal: Non-controlled/maintenanc e medication Medications requested: [id number]$ GLUCAGON 1MG/JEY INJ EMERGENCY KIT Defer to primary care provider To be mailed . Please review and renew if appropriate. *This note was generated by [facility]/[place] Pharmacy Customer Care. If you have any questions or need assistance, do not contact this author. Please refer all questions to your local, on-site pharmacy departments. /jamal/ CARRIE BURCH CPhT. City Designer, [place]/Pharmacy Customer Care Signed: 12/17/2024 10:02 Receipt Acknowledged By: 12/18/2024 13:49 /jamal/ DELMER STALLINGS MD STAFF PHYSICIAN CARRIE BURCH [facility]
--- OUTSIDE RECORDS SUMMARY | 2024-12-30 10:01 | XMS_ITS | Encounter Summary ---
Author Name [facility] [place] Address [address] [place] [address] Care Team Providers Care Mid Level Developer Name Role Phone SHAW MOSCOSO Primary [...] MEDIC ARE D Sep 16, 2016 PDPIND [id number] DAYAMI CHRISTIANSON IS PATIENT AETNA [facility] (WNR) MEDICARE ADVANTAGE [place] INDIV IDUAL - [place] Feb 14, 2022 [id number] [phone] DAYAMI CHRISTIANSON IS PATIENT MEDICAID MEDICAID [facility] Jul 17, 2015 MEDICAI D [id number] DAYAMI CHRISTIANSON IS PATIENT MEDICARE (WNR) MEDICARE (M) PART A Sep 16, 2010 PART A [id number] CELINEDAYAMI IS PATIENT MEDICARE (WNR) MEDICARE (M) PART B Sep 16, 2010 PART B [id number] DAYAMI CHRISTIANSON IS PATIENT MEDICARE (WNR) MEDICARE (M) PART A Sep 16, 2010 PART A [id number] DAYAMI CHRISTIANSON IS PATIENT MEDICARE (WNR) MEDICARE (M) PART B Sep 16, 2010 PART B [id number] [phone] DAYAMI CHRISTIANSON IS PATIENT Selected Encounter This section includes the information on record at [place] for the Encounter. Date/Time Encounter Type Encounter Description Reason Provider Source February 06, 2024 03:49 PM CONT GLUC MNTR ANALYSIS I&R ENDOCRINOLOGY ICD-10-CM E11.9 Type 2 diabetes mellitus without complications DELMER STALLINGS [place] Encounter Template Text not used by [place] Assessments - Encounter Diagnoses This section includes the primary and secondary diagnoses documented for the Encounter. Date/Time Primary/Secondary Diagnosis Diagnosis Name Provider Source February 06, 2024 03:54 PM PRIMARY Type 2 diabetes mellitus without complications [facility] [place] [facility] Plan of Treatment: Future Appointments (+ 6 months) and Future Tests (+/- 45 days) The Plan of Treatment section includes future care activities for the patient from all [place] [facility]. This section includes future appointments [...] 17, 2024 04:00 PM AMBULATORY - MEDICINE [place] [facility] [place] [facility] Apr 02, 2024 03:00 PM AMBULATORY - MEDICINE [place] [facility] [place] [facility] Apr 16, 2024 03:00 PM AMBULATORY - MEDICINE [place] [facility] [place] [facility] May 12, 2024 03:30 PM AMBULATORY - MEDICINE [place] [facility] [place] [facility] May 14, 2024 08:00 AM AMBULATORY - MEDICINE [place] [facility] [place] [facility] May 20, 2024 03:00 PM AMBULATORY - MEDICINE [place] [facility] [place] [facility] Jun 25, 2024 03:00 PM AMBULATORY - MEDICINE [place] [facility] Jul 09, 2024 03:00 PM [facility] Jul 10, 2024 03:00 PM AMBULATORY - MEDICINE [facility] Lab Results: +/- 30 days [...] Unit Interpretation Reference Range Specimen Type Comment January 31, 2024 07:48 AM [facility] HEMOGLOBIN A1C PANEL BLOOD Specimen Type: BLOOD Comment: Values obtained from A1C measurements can vary. For atypical A1C assays, a reported value of 7.0 could actually be between 6.72 and 7.28 if measured by a reference method. A reported value of 9.0 could actually be between 8.73 and 9.27. Ref: http://www.ngsp .org/CAPdata.as p Ordering Provider: DELMER STALLINGS Report Released Date/Time: Nov 04, 2023 09:26 AM Reporting Lab: [address] [address] Performing Lab: [address] [address] HEMOGLOBIN A1C 7.2 H 4.0-5.6 January 31, 2024 07:48 AM [facility] BASIC METABOLIC PANEL (non-fasting) SERUM Spe cimen Type: SERUM No comment entered. Ordering Provider: DELMER STALLINGS Report Released Date/Time: Nov 04, 2023 09:26 AM Reporting Lab: [address] [address] Performing Lab: [address] [address] UREA NITROGEN 23 mg/dL 7-25 GLUCOSE 233 [...] 68 123/71 16 95 0 251.7 38 [facility] Social History: Smoking Status (Most [...] 09, 2023 03:03 PM VA-TOBACCO FORMER USER [facility] Tobacco Use History This section includes a history of the smoking, or tobacco-related health factors, that were collected on or before the date of the Encounter. The data comes from the [place] facility where the Encounter took place. Date/Time Smoking Status/Tobacco Use Comment F acility Jul 09, 2023 03:03 PM VA-TOBACCO QUIT 15 YRS OR MORE [facility] Jul 05, 2022 01:51 PM [facility]ACCO [facility] May 11, 2021 01:18 PM VA-TOBACCO NEVER USED [facility] Encounter Notes: All associated encounter [...] will benefit from a decrease in lunch insulin /jamal/ DELMER STALLINGS MD STAFF PHYSICIAN Signed: 02/06/2024 15:54 DELMER STALLINGS [facility]
--- OUTSIDE RECORDS SUMMARY | 2024-12-30 10:01 | XMS_ITS | Encounter Summary ---
Author Name [facility] [place] [facility] [facility] [place] Address [address] [place] [address] Care Team Providers Care Butcher Name Role Phone SHAW MOSCOSO Primary Care [...] MEDIC ARE D Sep 16, 2016 PDPIND [id number] DAYAMI BERGER IS PATIENT AETNA [facility] (WNR) MEDICARE ADVANTAGE [place] INDIV IDUAL - [place] Feb 14, 2022 [id number] [phone] DAYAMI BERGER IS PATIENT MEDICAID MEDICAID [facility] CHRISTOPHER Jul 17, 2015 MEDICAI D [id number] DAYAMI BERGER IS PATIENT MEDICARE (WNR) MEDICARE (M) PART A Sep 16, 2010 PART A [id number] YESSI BERGERZhane IS PATIENT MEDICARE (WNR) MEDICARE (M) PART B Sep 16, 2010 PART B [id number] [phone] DAYAMI BERGER IS PATIENT MEDICARE (WNR) MEDICARE (M) PART A Sep 16, 2010 PART A [id number] DAYAMI BERGER IS PATIENT MEDICARE (WNR) MEDICARE (M) PART B Sep 16, 2010 PART B [id number] DAYAMI BERGER IS PATIENT Selected Encounter This section includes the information on record at [place] for the Encounter. 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 Appointment Date/Time Appointment Type Appointme nt Facility Name Nov 10, 2024 03:00 PM AMBULATORY - MEDICINE [facility] [place] [facility] January 18, 2025 03:30 PM AMBULATORY - MEDICINE [facility] [place] [facility] Apr 07, 2025 01:00 PM [facility] Lab Results: +/- 30 days [...] Unit Interpretation Reference Range Specimen Type Comment Nov 04, 2024 09:54 AM [facility] FERRITIN SERUM Specimen Type: SERUM No comment entered. Ordering Provider: MELANIA RAMOS Report Released Date/Time: May 12, 2024 03:50 PM Reporting Lab: [address] [address] Performing Lab: [address] [address] FERRITIN 110 ng/mL 20-300 Nov 04, 2024 09:54 AM [facility] MICROALBUMIN CREATININE RATIO PANEL URINE Spe cimen Type: URINE No comment entered. Ordering Provider: MELANIA RAMOS Report Released Date/Time: May 12, 2024 03:50 PM Reporting Lab: [address] [address] Performing Lab: [address] [address] MICROALBUMIN/CREATININE RATIO 259.0 mg/g H 0-29.9 MICROALBUMIN,QUANTITATIVE 14.5 mg/dL RR UNAVAIL CREATININE URINE 55.99 mg/dL Nov 04, 2024 09:54 AM [facility] IRON & TIBC PANEL SERUM Specimen Type: SERUM No comment entered. Ordering Provider: MELANIA RAMOS Report Released Date/Time: May 12, 2024 03:50 PM Reporting Lab: [address] [address] Performing Lab: [address] [address] TIBC 305 ug/dL 204-475 IRON 93 ug/dL 40-160 Transferrin Saturation 30.5 20.0-50.0 Transferrin (TRF) 231 mg/dL 200-360 Nov 04, 2024 09:54 AM [facility] LIPID PANEL, NON FASTING SERUM Specimen Type: SERUM No comment entered. Ordering Provider: MELANIA RAMOS Report Released Date/Time: May 12, 2024 03:50 PM Reporting Lab: [facility] [address] [facility] [address] Performing Lab: [facility] [address] [facility] [facility] [address] CHOLESTEROL 136 mg/dL TRIGLYCERIDE 75 mg/dL 0-150 LDL calculated 82 mg/dL 0-129 CHOL/HDL 3.5 HDL CHOLESTEROL 39 mg/dL L 40-60 Nov 04, 2024 09:54 AM [facility] BASIC METABOLIC PANEL (non-fasting) SERUM Spe cimen Type: SERUM No comment entered. Ordering Provider: MELANIA RAMOS Report Released Date/Time: May 12, 2024 03:50 PM Reporting Lab: [facility] [address] [facility] [address] Performing Lab: [address] [address] UREA NITROGEN 23 mg/dL 7-25 GLUCOSE 65 mg/dL 65-100 SODIUM 138 mmol/L 135-145 POTASSIUM 4.3 mmol/L 3.5-5.0 CHLORIDE 108 mmol/L 100-110 CO2 22 meq/L 20-30 CALCIUM 9.2 mg/dL 8.5-10.2 CREATININE, Serum 1.42 mg/dL H 0.50-1.40 eGFR(CKD-EPI 2020) 52 mL/min L >60 Nov 04, 2024 09:54 AM [facility] CBC BLOOD Specimen Type: BLOOD No comment entered. Ordering Provider: MELANIA RAMOS Report Released Date/Time: May 12, 2024 03:50 PM Reporting Lab: [facility] [address] [facility] [address] Performing Lab: [address] [address] WBC 7.93 10*3/uL 4.50-11.00 RBC 5.07 10*6/uL 4.23-5.66 HGB 14.8 g/dL 12.8-17 HCT 43.4 39.2-50.4 MCV 85.6 fL 82-99 MCHC 34.1 g/dL 30.8-35.1 PLT 245 10*3/uL 140-360 RDW-CV 12.9 12.0-16.0 MCH 29.2 pg 26.2-32.6 Social History: Smoking Status (Most current) and Tobacco Use (All prior to encounter date) This section includes the most current, and the historical, smoking and tobacco- related health factors from the [place] facility where the Encounter took place. Current Smoking Status This section includes the most current smoking, or tobacco-related health factor, from the [place] facility where the Encounter took place. Date/Time Current Smoking Status Comment Facil ity Jul 09, 2023 03:03 PM VA-TOBACCO FORMER USER [facility] Tobacco Use History This section includes a history of the smoking, or tobacco-related health factors, that were collected on or before the date of the Encounter. The data comes from the [place] facility where the Encounter took place. Date/Time Smoking Status/Tobacco Use Comment F acility Jul 09, 2023 03:03 PM VA-TOBACCO QUIT 15 YRS [facility] MORE [facility] Jul 05, 2022 01:51 PM VA-TOBACCO NEVER USED [facility] May 11, 2021 01:18 PM VA-TOBACCO NEVER USED [facility] Encounter Notes: All associated encounter notes This section contains the clinical notes associated to the Encounter. Date/Time Encounter Note(s) Provider Source Nov 05, 2024 03:09 PM OPTOMETRY NOTE: LOCAL TITLE: OPTOMETRY NOTE STANDARD TITLE: OPTOMETRY NOTE DATE OF NOTE: NOV 05, 2024@15:09 ENTRY DATE: NOV 05, 2024@15:09:07 AUTHOR: RIOS GONCALVES EXP COSIGNER: URGENCY: STATUS: COMPLETED 74 WHITE MALE NOT OR Last eye exam: 06/25/24 Reason for Visit/CC: patient here for a comprehensive eye exam. Sees Dr. Herbert at [facility] [place] every 4 months, gets injections in both eyes. Next visit is next Saturday. Still having trouble reading small print. OHx: type II DM w/ retinopathy and DME OU pseudophakia OU s/p YAG OS dry eye OU (-) Pain: (-) SINGH: (-) Diplopia: (-) Flashes: (-) Floaters: (-) Amaurosis Fugax/Tia's: (+) Eye Injury: wire in eye removed as child (+) Eye Surgery: CE OU, YAG OS, focal laser OD (-) TBI (-) FOHx: MHx: Code Description I25.10 CAD - Coronary Artery Disease ([facility] [id number]) E11.3599 Proliferative retinopathy due to type 2 diabetes mellitus ([facility] [id number]) E11.42 Peripheral neuropathy due to type 2 diabetes mellitus ([facility] [id number]) E11.9 Diabetes mellitus type 2 ([facility] [id number]) E11.22 Chronic kidney disease stage 3 due to type 2 diabetes mellitus ([facility] [id number]) E66.9 Obesity ([facility] [id number]) N52.9 Erectile dysfunction ([facility] [id number]) G46.4 Cerebellar stroke syndrome ([facility] [id number]) M16.9 Osteoarthritis ([facility] [id number]) R69. Computed tomography result abnormal ([facility] [id number]) M54.5 Low back pain ([facility] [id number]) 995.3 Allergy to peanuts ([facility] [id number]) 599.9 UTI (ICD-9-CM 599.9) 443.9 Claudication (ICD-9-CM 443.9) 790.93 Elevated Prostate Specific antigen [psa] (ICD-9-CM 790.93) 724.2 Low Back Pain (ICD-9-CM 724.2) 600.01 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 (ICD-9-CM 600.01) 607.84 Impotence of organic origin (ICD-9-CM 607.84) 799.9 Colorectal Cancer Screening Results Documented and Reviewed (PV) (ICD-9-CM 799.9) 799.9 Simple upper Gastrointestinal Endoscopy (ICD-9-CM 799.9) V45.82 Postsurgical Percutaneous Transluminal Coronary Angioplasty Status (ICD-9-CM V45.82) V45.61 Postsurgical Status of Cataract Extraction (ICD-9-CM V45.61) 799.9 MRSA SKIN INFECTION (ICD-9-CM 799.9) 305.61 Cocaine abuse, continuous use (ICD-9-CM 305.61) 530.81 GERD (ICD-9-CM 530.81) 918.1 Corneal Abrasion (ICD-9-CM 918.1) I10. Hypertension ([facility] [id number]) 110.1 Onychomycosis (ICD-9-CM 110.1) 366.14 Cataract, PSC/Post Subcapsular (ICD-9-CM 366.14) 366.15 Cataract, Cortical (Senile) (ICD-9-CM 366.15) 727.43 Cyst, ganglion (ICD-9-CM 727.43) 723.4 Cervical Radiculopathy (ICD-9-CM 723.4) 799.9 Shoulder Pain (ICD-9-CM 799.9) E78.5 Hyperlipidemia ([facility] [id number]) 412. Old Myocardial Infarction (ICD-9-CM 412.) 311. Depressive Disorder NOS (ICD-9-CM 311.) Other: SYSTEMIC MEDICATIONS/OCULAR MEDICATIONS: Active and Recently Outpatient Medications (excluding Supplies): Active Outpatient Medications Status 1) CARBOXYMETHYLCELLULOSE NA 0.5% OPH SOLN INSTILL 1 DROP INTO ACTIVE EACH EYE FOUR TIMES A DAY Indication: FOR DRY EYE 2) INSULIN,ASPART(EQV-NOVLG)100UN/ ML FLXPEN INJECT 25 UNITS ACTIVE SUBCUTANEOUSLY THREE TIMES A DAY INJECT 15 MINUTES PRIOR TO MEALS Indication: FOR DIABETES 3) INSULIN,GLARGINE 100 UNT/ML 3ML SOLOSTAR INJECT 35 UNITS ACTIVE SUBCUTANEOUSLY TWICE DAILY Indication: FOR DIABETES Active Non-VA Medications Status 1) Non-VA APIXABAN 5MG TAB 5MG BY MOUTH ONCE DAILY ACTIVE 2) Non-VA ASPIRIN 81MG EC TAB 81MG BY MOUTH DAILY ACTIVE 3) Non-VA CHOLECALCIF 25MCG (D3-1,000UNIT) TAB 25MCG BY MOUTH ACTIVE ONCE DAILY 4) Non-VA EMPAGLIFLOZIN 25MG TAB 25MG BY MOUTH ONCE DAILY ACTIVE 5) Non-VA FERROUS GLUCONATE 324MG TAB 324MG BY MOUTH THREE ACTIVE TIMES A WEEK Indication: TO SUPPLEMENT IRON 6) Non-VA FINASTERIDE 5MG TAB 5MG BY MOUTH ONCE DAILY ACTIVE 7) Non-VA GABAPENTIN 100MG CAP 100MG BY MOUTH THREE TIMES DAILY ACTIVE NEEDED Indication: FOR NERVE PAIN 8) Non-VA HYDROCODONE 5MG/ACETAMINOPHEN 325MG TAB 1 TABLET BY ACTIVE MOUTH TWICE DAILY NEEDED Indication: FOR PAIN 9) Non-VA METOPROLOL TARTRATE 25MG TAB 12.5MG BY MOUTH TWICE ACTIVE DAILY 10) Non-VA MIDODRINE HCL 10MG TAB 10MG BY MOUTH TWICE DAILY ACTIVE 11) Non-VA PANTOPRAZOLE NA 40MG EC TAB 40MG BY MOUTH EVERY ACTIVE MORNING 30 MINUTES BEFORE BREAKFAST 12) Non-VA PANTOPRAZOLE NA 40MG EC TAB 40MG BY MOUTH EVERY ACTIVE MORNING 30 MINUTES BEFORE BREAKFAST 13) Non-VA ROSUVASTATIN CA 40MG TAB 40MG BY MOUTH ONCE DAILY ACTIVE Indication: FOR HIGH CHOLESTEROL 14) Non-VA TADALAFIL 5MG TAB 5MG BY MOUTH ONCE DAILY ACTIVE Indication: BPH 15) Non-VA VITAMIN B COMPLEX CAP,ORAL BY MOUTH ON SATURDAY ACTIVE 18 Total Medications ALLERGIES: GABAPENTIN, PEANUTS LAST BP: 134/65 (07/10/2024 15:21) PERTINENT LABS: HEMOGLOBIN A1C; BLOOD Maximiliano. Date: 07/07/24 07:41 01/31/24 07:48 Test Name Result Units Range HEMOGLOBIN A1C 6.4 H 7.2 H % 4.0 - 5.6 +++++++++++++++++++++++++++++++ +++++++++++++++++++++++++++++++ +++++++++++++++++ Patient history, visual acuity, entrance testing, refraction and tonometry all performed now by thermoplastic technician and reviewed by attending provider. +++++++++++++++++++++++++++++++ +++++++++++++++++++++++++++++++ +++++++++++++++++ Final Rx: OD +0.50 -1.00 x 090 OS plano -0.75 x 055 Add: +2.75 trial framed clearer SLE: Lids/Lashes: mild blepharitis OU Conjunctiva: white and quiet OU Corneas: clear OU Iris: flat and clear OU (-)NVI OU Anterior Chamber: deep and quiet OU Angles: open OU Lens: PCIOL OU undilated: pt deferred, seeing Ret[facility] next week Vitreous: Syneresis OU C/D (Size and Rim Description) OD 0.40 pink & healthy OS 0.40 pink & healthy (-)NVD OU Macula OD flat, mild ERM OS flat and clear no fluid seen undilated OU A/V: normal caliber OU Posterior Pole: few dot hemorrhages temp OD, clear OS Assessment/Plan: 1. 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 Continue follow up with Retina specialist as scheduled. 2. Pseudophakia OU - stable, monitor 3. regular astigmatism OU - order new PALs clear and sun RTC 1 year or earlier PRN Patient Education: Diabetes: Patient was educated regarding diabetes and related ocular complications including retinopathy and cataract formation as well as other related systemic complications. The importance of good blood sugar control, blood sugar testing as recommended by their PCP and the importance of timely follow up were all emphasized. patient offered and declined printed medication list Medication Reconciliation: Outpatient: Has the patient been [...] -------- [facility] [place] [facility] GABAPENTIN [facility] [place] [facility] NO KNOWN ALLERGIES Med [...] days. Non-VA Meds Last Documented On: Jul 10, 2024 NOTE The display of VA prescriptions dispensed from another VA or DoD facility (remote) is limited to active outpatient prescription entries matched to National Drug File at the originating site and may not include some items such as investigational drugs, compounds, etc. NOT INCLUDED IN THIS LIST: Medications self-entered by the patient into personal health records (i.e. [facility]) are NOT included in this list. Non-VA medications documented outside this [place], remote inpatient orders (regardless of status) and [...] CARBOXYMETHYLCELLULOSE NA 0.5% OPH SOLN (Status = Active) INSTILL 1 DROP INTO EACH EYE FOUR TIMES A DAY FOR DRY EYE Rx# [id number] Last Released: 07/02/24 Qty/Days Supply: Rx Expiration Date: 06/26/25 Refills Remainin Indication: FOR DRY EYE Non-VA CHOLECALCIF 25MCG (D3-1,000UNIT) TAB TAKE ONE TABLET BY MOUTH ONCE DAILY Non-VA EMPAGLIFLOZIN 25MG TAB TAKE ONE TABLET BY MOUTH ONCE DAILY Non-VA FERROUS GLUCONATE 324MG TAB TAKE ONE TABLET BY MOUTH THREE TIMES A WEEK Patient wants to buy from Non-VA pharmacy. Medication prescribed by Non-VA provider. Indication: TO SUPPLEMENT IRON Non-VA FINASTERIDE 5MG TAB TAKE ONE TABLET BY MOUTH ONCE DAILY Non-VA GABAPENTIN 100MG CAP TAKE 1 CAPSULE BY MOUTH THREE TIMES A DAY NEEDED Patient wants to buy from Non-VA pharmacy. Medication prescribed by Non-VA provider. Indication: FOR NERVE PAIN Non-VA HYDROCODONE 5MG/ACETAMINOPHEN 325MG TAB TAKE ONE TABLET BY MOUTH TWICE DAILY NEEDED Patient wants to buy from Non-VA pharmacy. Medication prescribed by Non-VA provider. Indication: FOR PAIN OUTPT INSULIN,ASPART(EQV-NOVLG)100UN/ ML FLXPEN (Status = Active) INJECT 25 UNITS SUBCUTANEOUSLY THREE TIMES A DAY INJECT 15 MINUTES PRIOR TO MEALS Rx# [id number] Last Released: 07/13/24 Qty/Days Supply: Rx Expiration Date: 07/10/25 Refills Remainin Indication: FOR DIABETES OUTPT INSULIN,GLARGINE 100 UNT/ML 3ML SOLOSTAR (Status = Active) INJECT 35 UNITS SUBCUTANEOUSLY TWICE DAILY FOR DIABETES Rx# [id number] Last Released: 11/02/24 Qty/Days Supply: Rx Expiration Date: 10/29/25 Refills Remainin Indication: FOR DIABETES OUTPT INSULIN,GLARGINE-YFGN 100UNIT/ML PEN 3ML (Status = Discontinued) INJECT 40 UNITS SUBCUTANEOUSLY TWICE DAILY FOR DIABETES Rx# [id number] Last Released: 08/25/24 Qty/Days Supply: Rx Expiration Date: 02/06/25 Refills Remainin Indication: FOR DIABETES Non-VA METOPROLOL TARTRATE 25MG TAB TAKE ONE-HALF TABLET BY MOUTH TWICE DAILY Non-VA MIDODRINE HCL 10MG TAB TAKE ONE TABLET BY MOUTH TWICE DAILY Non-VA PANTOPRAZOLE NA 40MG EC TAB TAKE ONE TABLET BY MOUTH EVERY MORNING 30 MINUTES BEFORE BREAKFAST Non-VA PANTOPRAZOLE NA 40MG EC TAB TAKE ONE TABLET BY MOUTH EVERY MORNING 30 MINUTES BEFORE BREAKFAST Non-VA ROSUVASTATIN CA 40MG TAB TAKE ONE TABLET BY MOUTH ONCE DAILY Patient wants to buy from Non-DE pharmacy. Medication prescribed by Non-DE provider. Indication: FOR HIGH CHOLESTEROL Non-VA TADALAFIL 5MG TAB TAKE ONE TABLET BY MOUTH ONCE DAILY Patient wants to buy from Non-DE pharmacy. Medication prescribed by Non-DE provider. Indication: BPH Non-VA TERAZOSIN HCL CAP,ORAL TAKE BY MOUTH ONCE DAILY Patient wants to buy from Non-[place] pharmacy. Medication prescribed by Non-[place] provider. Indication: FOR HIGH BLOOD PRESSURE Non-VA VITAMIN B COMPLEX CAP,ORAL TAKE BY MOUTH ON SATURDAY SUPPLIES Non-VA ALCOHOL PREP PAD USE 1 PAD TOPICALLY FOUR TIMES A DAY OUTPT GLUCOSE SENSOR Cellumen G7 (Status = Discontinued) USE 1 SENSOR DIRECTED EVERY 10 DAYS Rx# [id number] Last Released: 04/27/24 Qty/Days Supply: Rx Expiration Date: 02/07/25 Refills Remainin OUTPT GLUCOSE SENSOR DEXCOM G7 (Status = Discontinued) USE 1 SENSOR DIRECTED EVERY 10 DAYS Rx# [id number] Last Released: 09/22/24 Qty/Days Supply: Rx Expiration Date: 09/12/25 Refills Remainin OUTPT GLUCOSE SENSOR DEXCOM G7 (Status = Active/Suspended) USE 1 SENSOR DIRECTED EVERY 10 DAYS Rx# [id number] Last Released: Qty/Days Supply: Rx Expiration Date: 10/29/25 Refills Remainin OUTPT GLUCOSE SENSOR FREESTYLE ANTOINE 2 (Status = Discontinued) USE 1 SENSOR DIRECTED EVERY 14 DAYS Rx# [id number] Last Released: 02/27/24 Qty/Days Supply: 11/13 Rx Expiration Date: 12/18/24 Refills Remainin OUTPT NEEDLE,PEN 32G,4MM (Status = Discontinued) USE 1 NEEDLE SUBCUTANEOUSLY FIVE TIMES A DAY FOR USE WITH PEN DEVICE Rx# [id number] Last Released: 10/12/24 Qty/Days Supply: 300/60 Rx Expiration Date: 10/10/25 Refills Remainin Indication: DIABETES OUTPT NEEDLE,PEN 32G,4MM (Status = Active/Suspended) USE 1 NEEDLE SUBCUTANEOUSLY FIVE TIMES A DAY FOR USE WITH PEN DEVICE Rx# [id number] Last Released: Qty/Days Supply: 300/60 Rx Expiration Date: 10/24/25 Refills Remainin Indication: DIABETES /jamal/ RIOS GONCALVES OD Baker Pie Signed: 11/05/2024 16:53 RIOS GONCALVES [facility] Nov 05, 2024 11:12 AM OPTOMETRY NOTE: LOCAL TITLE: OPTOMETRY NOTE STANDARD TITLE: OPTOMETRY NOTE DATE OF NOTE: NOV 05, 2024@11:12 ENTRY DATE: NOV 05, 2024@11:12:36 AUTHOR: JOSSELYN NOVAK EXP COSIGNER: URGENCY: STATUS: COMPLETED Active problems - Computerized Problem List is the source for the followin. CAD - Coronary Artery Disease ([facility] [id number]) 2. Proliferative retinopathy due to type 2 diabetes mellitus 3. Peripheral neuropathy due to type 2 diabetes mellitus 4. Diabetes mellitus type 2 5. Chronic kidney disease stage 3 due to type 2 diabetes mellitus 6. Obesity 7. Erectile dysfunction 8. Cerebellar stroke syndrome 9. Osteoarthritis 10. Computed tomography result abnormal 11. Low back pain 12. Allergy to peanuts 13. UTI 14. Claudication (SNOMED CT [id number]) 15. Elevated Prostate Specific antigen [psa] 16. Low Back Pain * 17. Hypertrophy (Benign) of Prostate with Urinary obstruction and other lower Ur 18. Impotence of organic origin 19. Colorectal Cancer Screening Results Documented and Reviewed (PV) 20. Simple upper Gastrointestinal Endoscopy 21. Postsurgical Percutaneous Transluminal Coronary Angioplasty Status 22. Postsurgical Status of Cataract Extraction 23. MRSA SKIN INFECTION 24. Cocaine abuse, continuous use 25. GERD * 26. Corneal Abrasion 27. Hypertension (SNOMED CT 83614246) 28. Onychomycosis * 29. Cataract, PSC/Post Subcapsular 30. Cataract, Cortical (Senile) 31. Cyst, ganglion 32. Cervical Radiculopathy 33. Shoulder Pain 34. Hyperlipidemia (SNOMED CT 41774344) 35. Old Myocardial Infarction 36. Depressive Disorder NOS Active Outpatient Medications (including Supplies): Active Outpatient Medications Status 1) CARBOXYMETHYLCELLULOSE NA 0.5% OPH SOLN INSTILL 1 DROP INTO ACTIVE EACH EYE FOUR TIMES A DAY Indication: FOR DRY EYE 2) GLUCOSE SENSOR DEXCOM G7 USE 1 SENSOR DIRECTED EVERY 10 ACTIVE (S) DAYS 3) INSULIN,ASPART(EQV-NOVLG)100UN/ ML FLXPEN INJECT 25 UNITS ACTIVE SUBCUTANEOUSLY THREE TIMES A DAY INJECT 15 MINUTES PRIOR TO MEALS Indication: FOR DIABETES 4) INSULIN,GLARGINE 100 UNT/ML 3ML SOLOSTAR INJECT 35 UNITS ACTIVE SUBCUTANEOUSLY TWICE DAILY Indication: FOR DIABETES 5) NEEDLE,PEN 32G,4MM USE 1 NEEDLE SUBCUTANEOUSLY FIVE TIMES A ACTIVE (S) DAY FOR USE WITH PEN DEVICE Indication: DIABETES Active Non-VA Medications Status 1) Non-VA ALCOHOL PREP PAD 1 PAD TOPICALLY FOUR TIMES A DAY ACTIVE 2) Non-VA APIXABAN 5MG TAB 5MG BY MOUTH ONCE DAILY ACTIVE 3) Non-VA ASPIRIN 81MG EC TAB 81MG BY MOUTH DAILY ACTIVE 4) Non-VA CHOLECALCIF 25MCG (D3-1,000UNIT) TAB 25MCG BY MOUTH ACTIVE ONCE DAILY 5) Non-VA EMPAGLIFLOZIN 25MG TAB 25MG BY MOUTH ONCE DAILY ACTIVE 6) Non-VA FERROUS GLUCONATE 324MG TAB 324MG BY MOUTH THREE ACTIVE TIMES A WEEK Indication: TO SUPPLEMENT IRON 7) Non-VA FINASTERIDE 5MG TAB 5MG BY MOUTH ONCE DAILY ACTIVE 8) Non-VA GABAPENTIN 100MG CAP 100MG BY MOUTH THREE TIMES DAILY ACTIVE NEEDED Indication: FOR NERVE PAIN 9) Non-VA HYDROCODONE 5MG/ACETAMINOPHEN 325MG TAB 1 TABLET BY ACTIVE MOUTH TWICE DAILY NEEDED Indication: FOR PAIN 10) Non-VA METOPROLOL TARTRATE 25MG TAB 12.5MG BY MOUTH TWICE ACTIVE DAILY 11) Non-VA MIDODRINE HCL 10MG TAB 10MG BY MOUTH TWICE DAILY ACTIVE 12) Non-VA PANTOPRAZOLE NA 40MG EC TAB 40MG BY MOUTH EVERY ACTIVE MORNING 30 MINUTES BEFORE BREAKFAST 13) Non-VA PANTOPRAZOLE NA 40MG EC TAB 40MG BY MOUTH EVERY ACTIVE MORNING 30 MINUTES BEFORE BREAKFAST 14) Non-VA ROSUVASTATIN CA 40MG TAB 40MG BY MOUTH ONCE DAILY ACTIVE Indication: FOR HIGH CHOLESTEROL 15) Non-VA TADALAFIL 5MG TAB 5MG BY MOUTH ONCE DAILY ACTIVE Indication: BPH 16) Non-VA TERAZOSIN HCL CAP,ORAL BY MOUTH ACTIVE Indication: FOR HIGH BLOOD PRESSURE 17) Non-VA VITAMIN B COMPLEX CAP,ORAL BY MOUTH ON SATURDAY ACTIVE 22 Total Medications Allergies: GABAPENTIN, PEANUTS All medications including those prescribed by outside VA's, community providers, and all OTC meds were reviewed and reconciled with patient to the best of their abilities. This 74 year old MALE is seen today for CEE Optometry Outpatient Interviewing Clerk Attending Provider Note: Date of Last Exam: Jun 2024 Location: [facility] Chief Complaint: Patient states my vision has not improved since last visit, feels the glasses only helped a little bit, mostly for distance. Feels he is still having trouble reading. Says when he lays down to watch the TV, he see's some double but once sitting up right it's fine. No other ocular complaints today. Will see [facility] [place] next Saturday for injection. Reports he is no longer using refresh gtts. HISTORY AND REVIEW OF SYSTEMS: 1) DM with hx of diabetic macular edema OU 2) pseudophakia OU 3) tear film dysfunction(dry eyes) (-) Pain: (-) SINGH: (-) Diplopia: (-) Flashes: (-) Floaters: (-) Amaurosis Fugax/Tia's: (-) Eye Injury: (-) Eye Surgery: (-) TBI (-) FOHx: (-) Smoker/Length of Time: DIABEIC: Yes LAST A1C: Results HEMOGLOBIN A1C PANEL BLOOD (LAV-BLOOD) MARTINA #[id number] Collection time: Jul 07, 2024@07:41 Test Name Result Units Range --------- ------ ----- ----- HEMOGLOBIN A1C 6.4 H % 4.0 - 5.6 NEW ALLERGIES TO REPORT: No EYE MEDICATION(S): None CURRENT RX WITH BCVA: OD +0.50 -1.00 x090 20/20-2 OS -0.50 -0.75 x055 20/20-2 ADD: +2.75 DVA: ( )SC (x)CC w/ glasses from Jun 2024 OD: 20/25+2 slow OS: 20/25-1 slow NVA OU: 20/30-2 MANIFEST REFRACTION(MRx): OD: NI OS: PLANO -0.75 X055 20/20-1 slow ADD: +2.75 20/20 CVF: Appear FTFC OU EOMS: Appear Full OU PUPILS: Appear ERRL(-)APD INTRAOCULAR PRESSURE (IOP) METHOD: Icare Time: 3:18PM OD: 16 OS: 17 ANTERIOR CHAMBER (AC): Penlight or slit lamp (if available) exam appears unremarkable. Pupils are not dilated. Patient defers dilation, states he will be dilated Saturday and [facility] Visual Imaging Performed Today: Additional Comments: /jamal/ Josselyn Novak [facility] Outpatient Interviewing Clerk Signed: 11/05/2024 15:19 JOSSELYN NOVAK [facility]
--- OUTSIDE RECORDS SUMMARY | 2024-12-30 10:01 | XMS_ITS | Encounter Summary ---
Author Organization [employer] Address [address] [facility] 7 [place] [address] Care Team Providers Care Unloader Operator Name Role Phone Unavailable Primary Care Provider Unavailabl e Encounter Details Date Type Department Care Team (Latest Contact Info) Description 08/10/2019 Abstract [facility] CONVERSIONS Dental, Provider, DDS Social History [...]
--- OUTSIDE RECORDS SUMMARY | 2024-12-30 10:01 | XMS_ITS | Encounter Summary ---
Author Name [facility] [place] [facility] [place] Address [address] [place] [address] Care Team Providers Care Scientific Aide Name Role Phone SHAW MOSCOSO Primary Care [...] MEDIC ARE D Sep 16, 2016 PDPIND [id number] DAYAMI BERGER IS PATIENT AETNA [facility] (WNR) MEDICARE ADVANTAGE [place] INDIV IDUAL - MASS Feb 14, 2022 [id number] DAYAMI BERGER IS PATIENT MEDICAID MEDICAID [facility] Jul 17, 2015 MEDICAI D [id number] DAYAMI BERGER IS PATIENT MEDICARE (WNR) MEDICARE (M) PART A Sep 16, 2010 PART A [id number] YESSI BERGERZhane IS PATIENT MEDICARE (WNR) MEDICARE (M) PART B Sep 16, 2010 PART B [id number] DAYAMI BERGER IS PATIENT MEDICARE (WNR) MEDICARE (M) PART A Sep 16, 2010 PART A [id number] [phone] DAYAMI BERGER IS PATIENT MEDICARE (WNR) MEDICARE (M) PART B Sep 16, 2010 PART B [id number] [phone] DAYAMI BERGER IS PATIENT Selected Encounter This section includes the information on record at [place] for the Encounter. Date/Time Encounter Type Encounter Description Reason Provider Source Apr 16, 2024 03:00 PM OFF/OP CNSLTJ NEW/EST LOW 30 OTOLARYNGOLOGY/ENT ICD-10-CM H90.A21 Snsrnrl hear loss, uni, r ear, with rstrcd hear cntra side JANY ROBERSON E Encounter Template Text not used by [place] Assessments - Encounter Diagnoses This section includes the primary and secondary diagnoses documented for the Encounter. Date/Time Primary/Secondary Diagnosis Diagnosis Name Provider Source Apr 16, 2024 05:21 PM PRIMARY Snsrnrl hear loss, uni, r ear, with rstrcd hear cntra side JANY ROBERSON [place] [facility] [place] [facility] Apr 16, 2024 05:21 PM SECONDARY Tinnitus, bilateral JANY ROBERSON [place] [facility] [facility] [facility] Plan of Treatment: Future Appointments (+ [...] - MEDICINE [place] [facility] [facility] [facility] May 14, 2024 08:00 AM AMBULATORY - MEDICINE [place] [facility] [facility] May 20, 2024 03:00 PM AMBULATORY - MEDICINE [place] [facility] [facility] Jun 25, 2024 03:00 PM AMBULATORY - MEDICINE [place] [facility] [facility] Jul 09, 2024 03:00 PM AMBULATORY - MEDICINE [place] [facility] [place] [facility] Jul 10, 2024 03:00 PM [facility] Aug 27, 2024 01:00 PM AMBULATORY - MEDICINE [place] [facility] [facility] Lab Results: +/- 30 days of [...] Unit Interpretation Reference Range Specimen Type Comment May 08, 2024 08:12 AM [facility] MICROALBUMIN CREATININE RATIO PANEL URINE Spe cimen Type: URINE No comment entered. Ordering Provider: NNEKA RAMOS Report Released Date/Time: Nov 12, 2023 03:09 PM Reporting Lab: [place] [facility] [facility] [address] [address] Performing Lab: [facility] [place] [facility] [address] [address] MICROALBUMIN/CREATININE RATIO 116.9 mg/g H 0-29.9 MICROALBUMIN,QUANTITATIVE 11.6 mg/dL RR UNAVAIL CREATININE URINE 99.23 mg/dL May 07, 2024 10:37 AM [facility] PO4 SERUM Specimen Type: SERUM No comment entered. Ordering Provider: MELANIA RAMOS Report Released Date/Time: Nov 12, 2023 03:09 PM Reporting Lab: [place] [facility] [facility] [address] [address] Performing Lab: [facility] [place] [facility] [address] [address] PO4 2.4 mg/dL L 2.5-5.0 May 07, 2024 10:37 AM [facility] PTH INTACT SERUM Specimen Type: SERUM No comment entered. Ordering Provider: MELANIA RAMOS Report Released Date/Time: Nov 12, 2023 03:09 PM Reporting Lab: [facility] [place] [facility] [address] [address] Performing Lab: [place] [facility] [facility] [address] [address] PTH INTACT 99.2 pg/mL H 10-65 May 07, 2024 10:37 AM [facility] VITAMIN D (25-[place]) SERUM Specimen Type: SERUM No comment entered. Ordering Provider: MELANIA RAMOS Report Released Date/Time: Nov 12, 2023 03:09 PM Reporting Lab: [facility] [place] [facility] [address] [address] Performing Lab: [facility] [address] [address] VITAMIN D (25-[place]) 30 ng/mL 20-50 May 07, 2024 10:37 AM [facility] MAGNESIUM SERUM Specimen Type: SERUM No comment entered. Ordering Provider: MELANIA RAMOS Report Released Date/Time: Nov 12, 2023 03:09 PM Reporting Lab: [facility] [place] [facility] [address] [address] Performing Lab: [facility] [address] [address] MAGNESIUM 1.8 mg/dL 1.6-2.6 May 07, 2024 10:37 AM [facility] CALCIUM SERUM Specimen Type: SERUM No comment entered. Ordering Provider: MELANIA RAMOS Report Released Date/Time: Nov 12, 2023 03:09 PM Reporting Lab: [facility] [address] [address] Performing Lab: [facility] [address] [address] CALCIUM 9.0 mg/dL 8.5-10.2 May 07, 2024 10:37 AM [facility] ALBUMIN SERUM Specimen Type: SERUM No comment entered. Ordering Provider: MELANIA RAMOS Report Released Date/Time: Nov 12, 2023 03:09 PM Reporting Lab: [facility] [address] [address] Performing Lab: [facility] [address] [address] ALBUMIN 3.8 g/dL 3.5-5.0 May 07, 2024 10:37 AM [facility] ALKALINE PHOSPHATASE SERUM Specimen Type: SER UM No comment entered. Ordering Provider: MELANIA RAMOS Report Released Date/Time: Nov 12, 2023 03:09 PM Reporting Lab: [facility] [address] [address] Performing Lab: [address] [address] ALKALINE PHOSPHATASE 72 U/L 40-150 May 07, 2024 10:37 AM [facility] FERRITIN SERUM Specimen Type: SERUM No comment entered. Ordering Provider: MELANIA RAMOS Report Released Date/Time: Nov 12, 2023 03:09 PM Reporting Lab: [facility] [address] [address] Performing Lab: [facility] [address] [address] FERRITIN 157 ng/mL 20-300 May 07, 2024 10:37 AM [facility] IRON & TIBC PANEL SERUM Specimen Type: SERUM No comment entered. Ordering Provider: MELANIA RAMOS Report Released Date/Time: Nov 12, 2023 03:09 PM Reporting Lab: [facility] [address] [address] Performing Lab: [facility] [address] [address] TIBC 267 ug/dL 204-475 IRON 64 ug/dL 40-160 Transferrin Saturation 24.0 20.0-50.0 May 07, 2024 10:37 AM [facility] BASIC METABOLIC PANEL (non-fasting) SERUM Spe cimen Type: SERUM No comment entered. Ordering Provider: MELANIA RAMOS Report Released Date/Time: Nov 12, 2023 03:09 PM Reporting Lab: [address] [address] Performing Lab: [address] [address] UREA NITROGEN 20 mg/dL 7-25 GLUCOSE 168 mg/dL H 65-100 SODIUM 138 mmol/L 135-145 POTASSIUM 4.1 mmol/L 3.5-5.0 CHLORIDE 109 mmol/L 100-110 CO2 22 meq/L 20-30 CREATININE, Serum 1.38 mg/dL 0.50-1.40 eGFR(CKD-EPI 2020) 54 mL/min L >60 May 07, 2024 10:37 AM [facility] CBC BLOOD Specimen Type: BLOOD No comment entered. Ordering Provider: MELANIA RAMOS Report Released Date/Time: Nov 12, 2023 03:09 PM Reporting Lab: [address] [address] Performing Lab: [address] [address] WBC 6.55 10*3/uL 4.50-11.00 RBC 4.65 10*6/uL [...] 80 97/58 18 95 0 238.6 36 [facility] Social History: Smoking Status (Most current) [...] PM VA-TOBACCO QUIT 15 YRS OR MORE [facility] Tobacco Use History This section includes a history of the smoking, or tobacco-related health factors, that were collected on or before the date of the Encounter. The data comes from the [place] facility where the Encounter took place. Date/Time Smoking Status/Tobacco Use Comment F acility Jul 09, 2023 03:03 PM VA-TOBACCO QUIT 15 YRS OR MORE [place] [facility] [facility] Jul 05, 2022 01:51 PM VA-TOBACCO NEVER USED [place] [facility] [facility] May 11, 2021 01:18 PM VA-TOBACCO NEVER USED [facility] Encounter Notes: All associated encounter notes [...] peanuts 12. UTI 13. Claudication (SNOMED CT 392674113) 14. Elevated Prostate Specific antigen [psa] 15. [...] 25. Corneal Abrasion 26. Hypertension (SNOMED CT 51321189) 27. Onychomycosis * 28. Cataract, PSC/Post Subcapsular 29. Cataract, Cortical (Senile) 30. Cyst, ganglion 31. Cervical Radiculopathy 32. Shoulder Pain 33. Hyperlipidemia (SNOMED CT 90191627) 34. Old Myocardial Infarction 35. Depressive Disorder [...] 10 20 15 15 55 50 70 [id number] + + LEFT EAR + =========+ A B C D E F G ========+========+======== +========+========+======== +========+========+ 500 1000 2000 3000 4000 6000 8000 Avg Hz Hz* Hz Hz Hz Hz Hz Hz (B-E) ========+========+======== +========+========+======== +========+======== 10 10 0 10 35 30 35 [id number] + + * The puretone threshold at [...] for rating purposes. d. Speech Discrimination Score ([facility] word list): + + RIGHT EAR 94% [...] of active outpatient prescriptions dispensed from this [place] (local) and dispensed from another VA or [...] -------- [facility] [place] [facility] [place] [facility] [place] [facility] [place] NO KNOWN ALLERGIES Med [...] the patient into personal health records (i.e. [employer]) are NOT included in this list. Non-VA medications documented outside this [place], remote inpatient orders (regardless of status) and [...] SPRAYS INTO EACH NOSTRIL ONCE DAILY Rx# [id number] Last Released: 07/09/23 Qty/Days Supply: 10/15 Rx Expiration Date: 07/09/24 Refills Remainin Indication: FOR NASAL IRRITATION/INFLAMMATION Non-VA FLUVASTATIN NA 40MG CAP TAKE 1 CAPSULE BY MOUTH ONCE DAILY OUTPT GLUCAGON 1MG/JEY INJ EMERGENCY KIT (Status = ) INJECT 1 INJECTION INTRAMUSCULARLY ONE TIME NEEDED FOR LOW BLOOD SUGAR Rx# [id number] Last Released: 02/13/24 Qty/Days Supply: 10/15 Rx Expiration Date: 03/07/24 Refills Remainin Indication: FOR LOW BLOOD SUGAR OUTPT INSULIN,ASPART(EQV-NOVLG)10 0UN/ML FLXPEN (Status = Discontinued) INJECT 30 UNITS SUBCUTANEOUSLY THREE TIMES A DAY FOR DIABETES Rx# [id number] Last Released: Qt Supply: Rx Expiration Date: 11/07/24 Refills Remainin Indication: FOR DIABETES OUTPT INSULIN,ASPART(EQV-NOVLG)10 0UN/ML FLXPEN (Status = Active) INJECT 30 UNITS SUBCUTANEOUSLY EVERY MORNING AND INJECT 27 UNITS AT NOON AND INJECT 26 UNITS EVERY EVENING FOR DIABETES Rx# [id number] Last Released: 02/11/24 Qty/Days Supply: Rx Expiration Date: 02/06/25 Refills Remainin Indication: FOR DIABETES OUTPT INSULIN,GLARGINE-YFGN 100UNIT/ML PEN 3ML (Status = Discontinued) INJECT 44 UNITS SUBCUTANEOUSLY TWICE DAILY FOR DIABETES Rx# [id number] Last Released: 12/25/23 QtyDays Supply: Rx Expiration Date: 12/23/24 Refills Remainin Indication: FOR DIABETES OUTPT INSULIN,GLARGINE-YFGN 100UNIT/ML PEN 3ML (Status = On Hold) INJECT 40 UNITS SUBCUTANEOUSLY TWICE DAILY FOR DIABETES Rx# [id number] Last Released: Supply: Rx Expiration Date: 02/06/25 Refills Remainin [...] 1 SENSOR DIRECTED EVERY 10 DAYS Rx# [id number] Last Released: 02/14/24 Qty/Days Supply: Rx Expiration Date: 02/07/25 Refills Remainin OUTPT GLUCOSE SENSOR FREESTYLE ANTOINE 2 (Status = Active) USE 1 SENSOR DIRECTED EVERY 14 DAYS Rx# [id number] Last Released: 02/27/24 Qty/Days Supply: 11/13 Rx Expiration Date: 12/18/24 Refills Remainin OUTPT SKIN BARRIER WIPE TORBOT SKIN TAC (Status = ) USE 1 WIPE TOPICALLY EVERY 14 DAYS Rx# [id number] Last Released: 03/27/23 Qty/Days Supply: Rx Expiration Date: 03/23/24 Refills Remainin /es/ Jany Roberson MD Otolaryngology Signed: 04/16/2024 17:21 [facility]
--- OUTSIDE RECORDS SUMMARY | 2024-12-30 10:02 | XMS_ITS | Encounter Summary ---
Author Name [facility] [place] Organization [facility] [place] Address [address] [place] [address] Care Team Providers Care Senior Editor Name Role Phone SHAW MOSCOSO Primary Care [...] MEDIC ARE D Sep 16, 2016 PDPIND [id number] DAYAMI BERGER IS PATIENT AETNA [facility] (WNR) MEDICARE ADVANTAGE [place] INDIV IDUAL - M[place] Feb 14, 2022 [phone] DAYAMI BERGER IS PATIENT MEDICAID MEDICAID [facility] Jul 17, 2015 MEDICAI D [id number] DAYAMI BERGER IS PATIENT MEDICARE (WNR) MEDICARE (M) PART A Sep 16, 2010 PART A [id number] YESSI BERGERZhane IS PATIENT MEDICARE (WNR) MEDICARE (M) PART B Sep 16, 2010 PART B [id number] DAYAMI BERGER IS PATIENT MEDICARE (WNR) MEDICARE (M) PART A Sep 16, 2010 PART A [id number] DAYAMI BERGER IS PATIENT MEDICARE (WNR) MEDICARE (M) PART B Sep 16, 2010 PART B [id number] [phone] DAYAMI BERGER IS PATIENT Selected Encounter [...] [place] treatment facilities. Appointment Date/Time Appointment Type Appointme nt Facility Name Oct 28, 2024 03:00 PM AMBULATORY [place]ICINE [place] [facility] Nov 05, 2024 03:00 PM AMBULATORY MEDICINE [place] [facility] Nov 10, 2024 03:00 PM AMBULATORY MEDICINE [place] [facility] January 18, 2025 03:30 PM AMBULATORY - MEDICINE [place] [facility] Apr 07, 2025 01:00 PM AMBULATORY - MEDICINE [place] [facility] Lab Results: +/- 30 days of [...] Type Comment Nov 04, 2024 09:54 AM [place] [facility] [facility] FERRITIN SERUM Specimen Type: SERUM No comment entered. Ordering Provider: MELANIA RAMOS Report Released Date/Time: May 12, 2024 03:50 PM Reporting Lab: [facility] [place] [address] [address] Performing Lab: [place] [address] [address] FERRITIN 110 ng/mL 20-300 Nov 04, 2024 09:54 AM [facility] MICROALBUMIN CREATININE RATIO PANEL URINE Spe cimen Type: URINE No comment entered. Ordering Provider: MELANIA RAMOS Report Released Date/Time: May 12, 2024 03:50 PM Reporting Lab: [facility] [place] [address] [address] Performing Lab: [facility] [place] [address] [address] MICROALBUMIN/CREATININE RATIO 259.0 mg/g H 0-29.9 MICROALBUMIN,QUANTITATIVE 14.5 mg/dL RR UNAVAIL CREATININE URINE 55.99 mg/dL Nov 04, 2024 09:54 AM [facility] IRON & TIBC PANEL SERUM Specimen Type: SERUM No comment entered. Ordering Provider: MELANIA RAMOS Report Released Date/Time: May 12, 2024 03:50 PM Reporting Lab: [facility] [place] [address] [address] Performing Lab: [facility] [address] [address] TIBC 305 ug/dL 204-475 IRON 93 ug/dL 40-160 Transferrin Saturation 30.5 20.0-50.0 Transferrin (TRF) 231 mg/dL 200-360 Nov 04, 2024 09:54 AM [facility] LIPID PANEL, NON FASTING SERUM Specimen Type: SERUM No comment entered. Ordering Provider: MELANIA RAMOS Report Released Date/Time: May 12, 2024 03:50 PM Reporting Lab: [facility] [place] [address] [address] Performing Lab: [facility] [address] [address] CHOLESTEROL 136 mg/dL TRIGLYCERIDE 75 mg/dL 0-150 LDL calculated 82 mg/dL 0-129 CHOL/HDL 3.5 HDL CHOLESTEROL 39 mg/dL L 40-60 Nov 04, 2024 09:54 AM [facility] BASIC METABOLIC PANEL (non-fasting) SERUM Spe cimen Type: SERUM No comment entered. Ordering Provider: MELANIA RAMOS Report Released Date/Time: May 12, 2024 03:50 PM Reporting Lab: [facility] [address] [address] Performing Lab: [address] [address] UREA NITROGEN 23 mg/dL 7-25 GLUCOSE 65 mg/dL 65-100 SODIUM 138 mmol/L 135-145 POTASSIUM 4.3 mmol/L 3.5-5.0 CHLORIDE 108 mmol/L 100-110 CO2 22 meq/L 20-30 CALCIUM 9.2 mg/dL 8.5-10.2 CREATININE, Serum 1.42 mg/dL H 0.50-1.40 eGFR(CKD-EPI 2020) 52 mL/min L >60 Nov 04, 2024 09:54 AM [facility] CBC BLOOD Specimen Type: BLOOD No comment entered. Ordering Provider: MELANIA RAMOS Report Released Date/Time: May 12, 2024 03:50 PM Reporting Lab: [address] [address] Performing Lab: [address] [address] WBC 7.93 10*3/uL 4.50-11.00 RBC 5.07 10*6/uL [...] and tobacco- related health factors from the [place] facility where the Encounter took place. Current Smoking Status This section includes the most current smoking, or tobacco-related health factor, from the [place] facility where the Encounter took place. Date/Time Current Smoking Status Comment Facil ity Jul 09, 2023 03:03 PM VA-TOBACCO FORMER USER [facility] Tobacco Use History This section includes a history of the smoking, or tobacco-related health factors, that were collected on or before the date of the Encounter. The data comes from the [place] facility where the Encounter took place. Date/Time Smoking Status/Tobacco Use Comment F acility Jul 09, 2023 03:03 PM VA-TOBACCO QUIT 15 YRS OR MORE [facility] Jul 05, 2022 01:51 PM VA-TOBACCO NEVER USED [facility] May 11, 2021 01:18 PM VA-TOBACCO NEVER USED [facility] Encounter Notes: All associated encounter notes This section contains the clinical notes associated to the Encounter. Date/Time Encounter Note(s) Provider Source Oct 09, 2024 11:53 AM ADDENDUM: LOCAL TITLE: Addendum STANDARD TITLE: ADDENDUM DATE OF NOTE: OCT 09, 2024@11:53:22 ENTRY DATE: OCT 09, 2024@11:53:23 AUTHOR: ROBERT MLAIK EXP COSIGNER: URGENCY: STATUS: COMPLETED Will forward to Endocrinology. /jamal/ ROBERT MALIK RN REGISTERED NURSE Signed: 10/09/2024 11:53 Receipt Acknowledged By: 10/23/2024 19:14 /jamal/ DELMER STALLINGS MD STAFF PHYSICIAN ====== --- Original Document --- 10/09/24 V1 PHARMACY CUSTOMER CARE MEDICATION RENEWAL: Date: Sep Division: [facility] referred by Pharmacy Call Center for medication renewal: Non-controlled/maintenan ce medication Medications requested: [id number] NEEDLE,PEN 32G,4MM This medication is long . It was last released 07/02/2022, but the requested to renew it. The [place] can be reached at to discuss if needed. Please review. Defer to primary care provider To be mailed . Please review and renew if appropriate. *This note was generated by [facility] Pharmacy Customer Care. If you have any questions or need assistance, do not contact this author. Please refer all questions to your local, on-site pharmacy departments. /jamal/ FRANCESCA ARANA [facility] Drying [employer] Work[place], [place]/Pharmacy Customer Care Signed: 10/09/2024 11:25 Receipt Acknowledged By: 10/09/2024 11:53 /es/ ROBERT MALIK, LATRICIA REGISTERED NURSE for JAREN BOWSER 10/09/2024 15:08 /es/ SHAW MOSCOSO MD PHYSICIAN ROBERT MALIK [place] CNT [facility] Oct 09, 2024 11:19 AM PHARMACY NOTE: LOCAL TITLE: V1 PHARMACY CUSTOMER CARE MEDICATION RENEWAL STANDARD TITLE: PHARMACY NOTE DATE OF NOTE: OCT 09, 2024@11:19 ENTRY DATE: OCT 09, 2024@11:19:49 AUTHOR: FRANCESCA ARANA EXP COSIGNER: URGENCY: STATUS: COMPLETED V1 PHARMACY CUSTOMER CARE MEDICATION RENEWAL Has ADDENDA Date: Sep Division: [facility] referred by Pharmacy Call Center for medication renewal: Non-controlled/maintenan ce medication Medications requested: [id number] NEEDLE,PEN 32G,4MM This medication is long . It was last released 07/02/2022, but the [place] requested to renew it. The can be reached at to discuss if needed. Please review. Defer to primary care provider To be mailed . Please review and renew if appropriate. *This note was generated by [facility] Pharmacy Customer Care. If you have any questions or need assistance, do not contact this author. Please refer all questions to your local, on-site pharmacy departments. /jamal/ FRANCESCA ARANA senior naval parachutist [employer] Worker, [place]/Pharmacy Customer Care Signed: 10/09/2024 11:25 Receipt Acknowledged By: 10/09/2024 11:53 /jamal/ ROBERT MALIK RN REGISTERED NURSE for JAREN BOWSER 10/09/2024 15:08 /jamal/ SHAW MOSCOSO MD PHYSICIAN 10/09/2024 ADDENDUM STATUS: COMPLETED Will forward to Endocrinology. /jamal/ ROBERT MALIK RN REGISTERED NURSE Signed: 10/09/2024 11:53 Receipt Acknowledged By: * AWAITING SIGNATURE * DELMER STALLINGS ANDREA R [facility]
--- OUTSIDE RECORDS SUMMARY | 2024-12-30 10:02 | XMS_ITS | Encounter Summary ---
Author Name [facility] [facility] [place] [facility] [place] Address [address] [place] [address] Care Team Providers Care Roller Man Name Role Phone SHAW MOSCOSO Primary Care [...] MEDIC ARE D Sep 16, 2016 PDPIND [id number] DAYAMI BERGER IS PATIENT AETNA [facility] (WNR) MEDICARE ADVANTAGE CT INDIV IDUAL - [place] Feb 14, 2022 [id number] [phone] DAYAMI BERGER IS PATIENT MEDICAID MEDICAID [facility] CHRISTOPHER Jul 17, 2015 MEDICAI D [id number] DAYAMI BERGER IS PATIENT MEDICARE (WNR) MEDICARE (M) PART A Sep 16, 2010 PART A [id number] DAYAMI BERGER IS PATIENT MEDICARE (WNR) MEDICARE (M) PART B Sep 16, 2010 PART B [id number] DAYAMI BERGER IS PATIENT MEDICARE (WNR) MEDICARE (M) PART A Sep 16, 2010 PART A [id number] DAYAMI BERGER IS PATIENT MEDICARE (WNR) MEDICARE (M) PART B Sep 16, 2010 PART B [id number] [phone] DAYAMI BERGER IS PATIENT Selected Encounter This section includes the information on record at [place] for the Encounter. Date/Time Encounter Type Encounter Description Reason Provider Source Jul 09, 2024 03:00 PM MTMS BY PHARM ADDL 15 MIN CLINICAL PHARMACY ICD-10-CM E11.9 Type 2 diabetes mellitus without complications VANDANA MATTHEW [facility] Encounter Template Text not used by [place] Assessments - Encounter Diagnoses This section includes the primary and secondary diagnoses documented for the Encounter. Date/Time Primary/Secondary Diagnosis Diagnosis Name Provider Source Jul 09, 2024 04:28 PM PRIMARY Type 2 diabetes mellitus without complications PAMELA MATTHEW [place] Plan of Treatment: Future Appointments (+ 6 months) and Future Tests (+/- 45 days) The Plan of Treatment section includes future care activities for the patient from all [place] [facility]. This section includes future appointments and future orders which are active, pending or scheduled. Future Appointments This section includes appointments that were scheduled to occur 6 months from the date of the Encounter, up to a maximum of 20 appointments. The data comes from all [place] treatment facilities. Appointment Date/Time Appointment Type Appointme nt Facility Name Jul 10, 2024 03:00 PM AMBULATORY - MEDICINE [facility] Aug 27, 2024 01:00 PM [place] [facility] [place] [facility] Oct 28, 2024 03:00 PM [place] [facility] Nov 05, 2024 03:00 PM [place] [facility] Nov 10, 2024 03:00 PM [facility] Lab Results: +/- 30 days of [...] Type Comment Jul 07, 2024 07:41 AM [place] LIPID PANEL FASTING SERUM Specimen Ty pe: SERUM No comment entered. Ordering Provider: AMBIKA KNIGHT Report Released Date/Time: Jul 09, 2023 03:20 PM Reporting Lab: [address] [address] Performing Lab: [address] [address] CHOLESTEROL 132 mg/dL TRIGLYCERIDE 110 mg/dL 0-150 LDL calculated 76 mg/dL 0-129 CHOL/HDL 3.9 HDL CHOLESTEROL 34 mg/dL L 40-60 Jul 07, 2024 07:41 AM [place] BASIC METABOLIC PANEL (fasting) SERUM Specimen Type: SERUM No comment entered. Ordering Provider: AMBIKA KNIGHT Report Released Date/Time: Jul 09, 2023 03:20 PM Reporting Lab: [address] [address] Performing Lab: [address] [address] UREA NITROGEN 24 mg/dL 7-25 GLUCOSE 200 mg/dL H 65-100 SODIUM 137 mmol/L 135-145 POTASSIUM 4.9 mmol/L 3.5-5.0 CHLORIDE 106 mmol/L 100-110 CO2 24 meq/L 20-30 CREATININE, Serum 1.59 mg/dL H 0.50-1.40 eGFR(CKD-EPI 2020) 46 mL/min L >60 Jul 07, 2024 07:41 AM [place] LIVER FUNCTION SERUM Specimen Type: SERUM No comment entered. Ordering Provider: AMBIKA KNIGHT Report Released Date/Time: Jul 09, 2023 03:20 PM Reporting Lab: [address] [address] Performing Lab: [address] [address] PROTEIN,TOTAL 7.5 g/dL 6.0-8.3 ALBUMIN 4.2 g/dL 3.5-5.0 ALKALINE PHOSPHATASE 68 U/L 40-150 AST 23 U/L 5-34 ALT 29 U/L BILIRUBIN, TOTAL 0.4 mg/dL 0.2-1.2 Jul 07, 2024 07:41 AM [place] URINALYSIS URINE S pecimen Type: URINE Comment: If Glucose = >500 and Ketones are positive, please alert the Physician. Ordering Provider: AMBIKA KNIGHT Report Released Date/Time: Jul 09, 2023 03:20 PM Reporting Lab: [address] [address] Performing Lab: [address] [address] UA COLOR Light-Yellow Yellow UA APPEARANCE Clear Clear UA GLUCOSE >1000 mg/dL Negative UA KETONES NEGATIVE mg/dL Negative UA BLOOD NEGATIVE mg/dL Negative UA PROTEIN 20 mg/dL Negative UA NITRITE NEGATIVE mg/dL Negative UA BILIRUBIN NEGATIVE mg/dL Negative UA SPECIFIC GRAVITY 1.031 H 1.016-1.022 UA pH 5.5 5.0-9.0 UA UROBILINOGEN Normal mg/dL <2.0 UA LEUKOCYTE NEGATIVE Negative Jul 07, 2024 07:41 AM [place] HEMOGLOBIN A1C PANEL BLOOD Specimen T ype: [...] Jul 09, 2023 03:20 PM Reporting Lab: [address] [address] Performing Lab: [address] [address] HEMOGLOBIN A1C 6.4 H 4.0-5.6 Jul 07, 2024 07:41 AM [place] TSH SERUM Sp ecimen Type: SERUM No comment entered. Ordering Provider: AMBIKA KNIGHT Report Released Date/Time: Jul 09, 2023 03:20 PM Reporting Lab: [address] [place] [address] Performing [facility] [address] [facility] [address] TSH 1.83 u[IU]/mL 0.35-5.00 Jul 07, 2024 07:41 AM [place] CBC AND DIFF (AUTO) BLOOD Specimen Ty pe: BLOOD No comment entered. Ordering Provider: AMBIKA KNIGHT Report Released Date/Time: Jul 09, 2023 03:20 PM Reporting Lab: [facility] [address] [facility] [address] Performing Lab: [address] [address] WBC 7.74 10*3/uL 4.50-11.00 RBC 4.99 10*6/uL [...] and tobacco- related health factors from the [place] facility where the Encounter took place. Current Smoking Status This section includes the most current smoking, or tobacco-related health factor, from the [place] facility where the Encounter took place. Date/Time Current Smoking Status Comment Debbie ity February 03, 2019 10:28 AM VA-TOBACCO NEVER USED [place] Tobacco Use History This section includes a history of the smoking, or tobacco-related health factors, that were collected on or before the date of the Encounter. The data comes from the [facility] where the Encounter took place. Date/Time Smoking Status/Tobacco Use Comment F acility Jan 13, 2018 09:49 AM LIFETIME NON-TOBACCO USER [place] Jan 04, 2017 10:17 AM LIFETIME NON-TOBACCO USER [place] Dec 23, 2015 08:49 AM LIFETIME NON-TOBACCO USER [place] Nov 27, 2005 02:55 PM LIFETIME NON-TOBACCO USER patient reportssmoking only crack coccaine [place] January 22, 2003 10:42 AM LIFETIME NON-SMOKER [place] Aug 18, 2001 01:54 PM LIFETIME NON-TOBACCO USER pt states he has never smoked [place] May 14, 2001 02:23 PM LIFETIME NON-SMOKER [place] Encounter Notes: All associated encounter notes This [...] Patient Name: JESSICA BERGER [facility]-up for diabetes management treatment. : Aug Age: 73 Sex: MALE Race: WHITE Subjective: Pt presents to the visit w/ his girlfriend. Pt is doing well. He started to walk daily and reports increase in strength and mobility. Per prev: Pt came in w/ his girlfriend Gene. 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 UTI 13. Claudication (SNOMED CT 668138411) 14. Elevated Prostate Specific antigen [psa] 15. [...] 25. Corneal Abrasion 26. Hypertension (SNOMED CT 30519296) 27. Onychomycosis * 28. Cataract, PSC/Post Subcapsular 29. Cataract, Cortical (Senile) 30. Cyst, ganglion 31. Cervical Radiculopathy 32. Shoulder Pain 33. Hyperlipidemia (SNOMED CT 64445063) 34. Old Myocardial Infarction 35. Depressive Disorder [...] USE VIEW HOME SCREEN SMART DEVICE SETTINGS FINISHER WALLBOARD AND PLASTERBOARD SET UP FINISHER WALLBOARD AND PLASTERBOARD SET UP HOW/WHEN TO TO USE VIEW HOME SCREEN FINISHER WALLBOARD AND PLASTERBOARD DEVICE SETTINGS VIDYA AND FINISHER WALLBOARD AND PLASTERBOARD TREND ARROWS VIDYA AND FINISHER WALLBOARD AND PLASTERBOARD TREND GRAPHS END SENSOR SESSION REMOVE SENSOR [...] recommend to consider changing pt back to [facility]. pt to provide 7 days [...] of Preventive Care: Most recent visit to geomagnetist: non-VA ; last visit 1 months ago [...] monitor and assess /jamal/ ROB MATTHEW [facility] [employer] K[employer]PER Signed: 07/09/2024 16:33 Receipt Acknowledged By: 07/09/2024 22:19 /es/ SHAW MOSCOSO MD PHYSICIAN ROB MATTHEW [place]
--- OUTSIDE RECORDS SUMMARY | 2024-12-30 10:02 | XMS_ITS ---
Author Organization [facility] Address [address] [place] [address] Care Team Providers Care Poultry Farmer Meat Name Role Phone Manan Reinoso MD Primary Care Provider UnavailAndrzej Ann Unavailable [phone] Allergies No Known Allergies REASON FOR VISIT At Risk Footcare, Toe Irritation Medications Medication SIG (Take, Route, Frequency, Duration) Notes Start Date End Date Status Midodrine HCl Active Tadalafil 5 MG 1 tablet as needed O rally Once a day for 30 day(s) Active Extra Depth Orthopedic Shoes (1 Pair) with Customized Heat Molded Multidensity Innersoles (3 Pair) as directed Dx: IDDM/Polyneuropathy (E10.42), Hammertoe Foot Deformity (M20.41,M20.42), Preulcerative Skin Lesion(s) (L85.1) 07/28/2024 Active Pantoprazole Sodium 40 MG 1 tablet Orall y Once a day for 30 day(s) Active Rosuvastatin Calcium 40 MG 1 tablet Oral ly Once a day for 30 day(s) Active Jardiance 25 MG 1 tablet Orally Once a day Active HumaLOG Active Metoprolol Tartrate Active Lantus Active Magnesium 400 MG as directed Orally Active Finasteride 5 MG 1 tablet Orally Once a day for 30 day(s) Active ASA Active Eliquis 5 MG 1 tablet Orally Twic e a day for 30 day(s) Active Vicodin Active Social History Tobacco Use: Social History Observation Description Date Details (start date - stop date) Never Smoker NA - NA Tobacco use other than smoking: Question Answer Notes Are you an other tobacco user? No Tobacco Control (Standard) Question Answer Notes Tobacco use: Nonsmoker Additional Findings: Tobacco non-user Current no nsmoker AUDIT-C (Standard) Question Answer Notes Did you have a drink containing alcohol in the p ast year? No Points 0 Interpretation Negative Vital Signs Blood pressure systolic 130 mm Hg 11/03/19 25 Blood pressure diastolic 70 mm Hg 025 Height 5ft 8in in 11/03/2024 Weight 235 lbs 11/03/2024 BMI 35.73 kg/m2 11/03/2024 Procedures Procedure Date Ordered Date Performed Result Body Sit e 63436-UHSRIAX NAIL, 1-5 11/03/2024 N/A 76657-QQTJ SKIN LESIONS, OVER 4 11/03/2024 N/A [id number] DYSTROPHIC NAILS ANY # 11/03/2024 N/A Encounters Encounter Location Date Provider Diagnosis [facility] [address] [address] 11/03/2024 Andrzej Camargo Type 1 diabetes mellitus with diabetic polyneuropathy E10.42 ; Tinea unguium B35.1 ; Other hammer toe(s) (acquired), right foot M20.41 and Other hammer toe(s) (acquired), left foot M20.42 Assessments Encounter Date Diagnosis (ICD Code) Assessment Notes Treatment Notes Treatment Clinical Notes Section Notes 11/03/2024 Type 1 diabetes mellitus with diabetic polyneuropathy (ICD-10 - E10.42) 11/03/2024 Tinea unguium (ICD-10 - B35.1) 11/03/2024 Other hammer toe(s) (acquired), right foot (ICD-10 - M20.41) Response to treatment,Impro vement 11/03/2024 Other hammer toe(s) (acquired), left foot (ICD-10 - M20.42) Response to treatment,Impro vement Plan Of Treatment Pending Test Test Name Order Date 65316-TMQALXY NAIL, 1-5 11/03/2024 14852-YJSV SKIN LESIONS, OVER 4 11/03/19 25 [id number] DYSTROPHIC NAILS ANY # Next Appt Details Follow Up: prn, Reason: Provider Name:Andrzej Camargo , 02/09/2025 03:00:00 PM, [address] [place] [address], [phone], Procedure Notes * Category Sub-Category Detail Notes [...] risk. Therefore, the benign hyperkeratotic lesions, ( 6 ) in total, locations as stated and described in the exam ( Medial, IPJ, TA, Medial, IPJ, T5, SUB MTH (s), 1, B/L, Plantar Heel(s), B/L ), were pared, and/or cut utilizing a sterile 15 blade, tissue nippers, and/or power dremel instrumentation by the physician of record - 16428 Debride Nails 1-5 Procedure: Due to the cli nical pathology outlined in the exam findings, performance of this nail treatment is medically necessary as its management by an unskilled/untrained nonprofessional would put this patients foot and overall health at risk. Therefore, debridement to affected nail(s), as described in exam ( TA, T5 ), was performed exclusively by the physician of [...] necessary to maintain effective symptomatic relief - 20926 Nail Reduction Nail Reduction (-27) Trimming o [...] T2, T3, T4, T6, T7, T8, T9 ), were debrided by the phisician of record to reduce/remove overall nail length and girth, by manual and electrical means with use of a nail nipper and/or dremel, to more viable healthy nail plate or bed tissue - G0127 Progress Notes * Kirby CHRISTIANSONDOB:1950 ( 74 yo M)Acc No.[id number]:11/03/2024 Progress Note Patient:?Kirby CHRISTIANSON Provider:?Andrzej Camargo DPM :1950???Age:74 Y???Sex:Male Jason e:11/03/2024 Address:[address] [place] [address], [facility] Pcp:Manan Reinoso MD Subjective: * Chief Complaints: * ???At Risk FootcareToe Irrit ation * HPI: ???At Risk footcare:?Pt States Last PCP Visit:?Date?08/21/2024 ?Misc?Patient accompanied by, , ROCKY, who is physically present in exam room at time of visit.?Toe pain:?Treatments:?Rx shoes .? * ROS:?General/Constitutional:?Nausea?denies.?Vomiting?denies.?Hunger Thirst?denies.?Loss appetite?denies.?Chills?denies.?Fatigue?denies.?Fever?denies.?Night Sweats?denies.?Unexplained weight loss?denies.?Unexplained [...] L5 03/[place]cataract [place] [facility] [place] * Hospitalization/Major Diagno stic Procedure:?Denies Past Hospitalization * Family History:?Mother: dece ased, Stroke, diagnosed with Unspecified heart disease.?Father: , Stroke, diagnosed with Diabetic - NIDDM, Unspecified heart disease.?Siblings: Sister, diagnosed with Diabetic - NIDDM.? * Social History:?Tobacco Use:?Tobacco use other than smoking?Are you an other tobacco user??No ?Tobacco Control (Standard)?Tobacco use:?Nonsmoker ?Additional Findings: Tobacco non-user?Current nonsmoker ???Drugs/Alcohol:?Drugs?Have you used drugs other than those for medical reasons in the past 12 months??No ???Miscellaneous:?Caffeine: no, none. ?Children: yes. ?Exercise: no. ?Marital status: . ?Occupation: Retired-Worked on [employer]. ???Drug/Alcohol:?AUDIT-C (Standard)?Did you have a drink containing alcohol in the past year??No ?Points?0 ?Interpretation?Negative * Medications:?TakingVicodin A SA Eliquis 5 MG [...] tablet as needed Orally Once a day Extra Depth Orthopedic Shoes (1 Pair) with Customized Heat Molded Multidensity Innersoles (3 Pair) as directed Dx: IDDM/Polyneuropathy (E10.42), Hammertoe Foot Deformity (M20.41,M20.42), Preulcerative Skin Lesion(s) (L85.1) Medication List reviewed and reconciled with the [...] tablet as needed Orally Once a day Taking Extra Depth Orthopedic Shoes (1 Pair) with Customized Heat Molded Multidensity Innersoles (3 Pair) as directed Dx: IDDM/Polyneuropathy (E10.42), Hammertoe Foot Deformity (M20.41,M20.42), Preulcerative Skin Lesion(s) (L85.1) Medication List reviewed and reconciled with the patient * Allergies:?N.K.D.A.yes[Aller gies Verified] Objective: * Vitals:?Ht:5ft 8in, Wt:235, BMI:35.73, Shoe size:9, BP:130/70mm Hg, BS:125, Ht- cm: 172.72 cm, Wt-k.6 kg. * ???Past Orders: ???Lab:HEMOGLOBIN A1C (GLYCO HEMOGLOBIN) (Order Date - 10/19/2024) (Collection Date & Time - 11/03/2024 03:58 PM) ? Value Reference Range ?HEMOGLOBIN A1C % (HH) 6.7 * Examination: ???Ophthalmology Referral: ?DIABETES EYE EXAM?Procedure Performed:?Yes ?Date of Exam Performed?08/17/2024 ?Diabetic Retinopathy Screening:?Yes ?Retinal Screening Performed:?Yes ?Findings of Diabetic Eye Exam:?no retinopathy?Neurological: ?SENSORY:? Neurological exam demonstrates, reduced light touch [...] MTH (s), 1, B/L, Plantar Heel(s), B/L.?Orthopedic: ?DIGITAL DEFORMITIES:?Digital contracture, PIPJ, 2-5 B/L, incompl-reducible to push-up test, no over, nor underlapping, there is no longer, evidence of shoe producing skin irritation.?FOOTWEAR:?good condition, exhibit proper fit and accommodation for pedal deformities. OT were inspected and noted to be worn, but in good condition giving proper support at the present time.?General Examination: ?GENERAL APPEARANCE:?Reveals a pleasant, alert, well nourished, well- developed, well hydrated individual, who demonstrates proper attention to hygiene/body habitus, and is in no acute distress, Pt serves as own historian for office visit today, Pt accompanied by, , and/who is physically present in exam room at time of visit.?ORIENTED:?person, place, and time.?FOOT EXAM:?Lower Extremity Neurological Exam performed:?Yes ?Visual exam of foot performed:?Yes ?Date?11/03/2024 ?Footwear Evaluation?Footwear Evaluation performed:?Yes??? Assessment: * Assessment: 1.?Type 1 diabetes mellitus with diabetic polyneuropathy - E10.42 (Primary)???2.?Tinea unguium - B35.1???3.?Other hammer toe(s) (acquired), right foot - M20.41???Specify :Chronic problem, Stable (1=3,2=4)???Notes :Response to treatment,Improvement???4.?Other hammer toe(s) (acquired), left foot - M20.42???Specify :Chronic problem, Stable (1=3,2=4)???Notes :Response to treatment,Improvement??? Plan: * Treatment: * Procedures:?Debride Nails 1-5:?Procedure:?Due to the clinical pathology outlined in the exam findings, performance of this nail treatment is medically necessary as its management by an unskilled/untrained nonprofessional would put this patients foot and overall health at risk. Therefore, debridement to affected nail(s), as described in exam ( TA, T5 ), was performed exclusively by the physician of [...] necessary to maintain effective symptomatic relief - 45948.?Keratoma Treatment:?Parring or Cutting of Benign Hyperkeratotic Lesion(s)?(-57) More than 4 Lesions - Due to the at risk nature of the patients medical condition as documented in the exam findings, performance of this keratoderma treatment is medically necessary as its management by an unskilled/untrained nonprofessional would put this patients foot and overall health at risk. Therefore, the benign hyperkeratotic lesions, ( 6 ) in total, locations as stated and described in the exam (?Medial,?IPJ,?TA,?Medial,?IPJ,?T5,?SUB MTH (s),?1,?B/L,?Plantar Heel(s),?B/L?), were pared, and/or cut utilizing a sterile 15 blade, tissue nippers, and/or power dremel instrumentation by the physician of record - 73780.?Nail Reduction:?Nail Reduction?(-27) Trimming of all dystrophic nails - Due to the at risk nature of the patients medical condition as documented in the exam findings, performance of this nail treatment is medically necessary as its management by an unskilled/untrained nonprofessional would put this patients foot and overall health at risk. Therefore, the dystrophic nails, in locations as stated and described in the exam (?T1, T2, T3, T4, T6, T7, T8, T9?), were debrided by the phisician of record to reduce/remove overall nail length and girth, by manual and electrical means with use of a nail nipper and/or dremel, to more viable healthy nail plate or bed tissue - G0127.? * Procedure Codes:?62885 TRIM SKIN LESIONS, OVER 4, Modifiers: XS 77423 DEBRIDE NAIL, 1-5, Modifiers: XS G0127 TRIMMING DYSTROPHIC NAILS ANY #, Modifiers: XS * Preventive Medicine:? ??Counseling:?Discussion:?-13: Office or other outpatient visit for the evaluation and management of an established patient, which required a medically appropriate history and/or examination and LOW level of DECISION MAKING for: 1 STABLE ACUTE UNCOMPLICATED PROBLEM, 2 OR MORE MINOR PROBLEMS, OR 1 STABLE CHRONIC PROBLEM, THAT POSE(S) A LOW RISK FOR MORBIDITY/MORTALITY. The visit on the day of the [...] have encouraged the patient to call the office.?Shoe Gear Counseling:?A thorough inspection of the patients Rxed shoegear and inserts was performed and findings communicated. We reviewed the many important medical advantages for adhering to regularly wearing these shoe and insert accomidative devices daily as well as reviewed the fact that a failure in accepting these recommedations may be deleterious, unable to prevent, and disadvantagely result in, many pedal complications such as skin irritation, skin ulceration, infection, and even loss of toe/foot/leg/or even their life. Time was also spent reviewing the proper footcare techniques including daily skin moisturization, daily foot inspection for any interruption in skin integrity, open lesions, or sign of infection such as redness/malodor/drainage/swelling as well as daily shoe inspection for the presence of internal foreign bodies and shoe as well as insert wear. Patient questions re: shoes, inserts, and self foot inspections were answered to their satisfaction as the patient verbally confirmed a full understanding of the above information.? ??Screening/Special Tests:?Fall Risk?Screening:?No falls in the past year ?FALLS: Screening for Future Fall Risk?Have you had any falls with injury in the past year??No * Follow Up:?prn * Images: * Sign off status: Completed true * Provider:?Andrzej Camargo DPM Date:?2024 Generated for Zachary wells/Concepcion/Jasmeet on:?12/30/2024 10:01 AM EDT History and Physical Notes * HPI (History of Present Illness) Category Sub-Category Detail Notes Category Not es Toe pain Treatments: Rx shoes At Risk footcare Pt States [place] [facility] [place] by, , ROCKY, who is physically present in exam room at time of visit Examination Category Sub-Category Detail Notes Category Not [...] (s), 1, B/L, Plantar Heel(s), B/L Orthopedic FOOTWEAR EVALUATION: good condit ion, exhibit proper fit and accommodation for pedal deformities. OT were inspected and noted to be worn, but in good condition giving proper support at the present time DIGITAL DEFORMITIES: Digital contracture , PIPJ, 2-5 B/L, incompl-reducible to push-up test, no over, nor underlapping, there is no longer, evidence of shoe producing skin irritation General Examination GENERAL APPEARANCE: Reveals a pleasant, [...] Visual exam of foot performed:: Yes Date: 11/03/2024 ORIENTED: person, place, and t claudia Footwear Evaluation Footwear Evaluation performe d:: Yes Ophthalmology Referral DIABETES EYE EXAM Procedure Perform ed:: Yes ?Date of Exam Performed: 08/17/2024 Diabetic Retinopathy Screening:: Yes Retinal Screening Performed:: Yes Findings of Diabetic Eye Exam:: no retin opathy Nails NAILS are: Elongated, overg rown, dystrophic, lytic, greater than 3mm thick, discolored and friable with crumbly malodorous subungual debris, TA, T5, all other nails not described with characteristics as possessing mycosis are elongated, overgrown, and dystrophic ( T1, T2, T3, T4, T6, T7, T8, T9 )
--- OUTSIDE RECORDS SUMMARY | 2024-12-30 10:02 | XMS_ITS ---
Author Name [facility] Organization [facility] Address [address] [place] [address] Care Team Providers Care Profiling Machine Setup Operator Name Role Phone SHAW MOSCOSO Primary [...] MEDIC ARE D Sep 16, 2016 PDPIND [id number] DAYAMI BERGER IS PATIENT AETNA [facility] (WNR) MEDICARE ADVANTAGE DE INDIV IDUAL - [place] Feb 14, 2022 [id number] [phone] DAYAMI BERGER IS PATIENT MEDICAID MEDICAID [facility] CHRISTOPHER Jul 17, 2015 MEDICAI D [id number] DAYAMI BERGER IS PATIENT MEDICARE (WNR) MEDICARE (M) PART A Sep 16, 2010 PART A [id number] CELINEDAYAMI IS PATIENT MEDICARE (WNR) MEDICARE (M) PART B Sep 16, 2010 PART B [id number] DAYAMI BERGER IS PATIENT MEDICARE (WNR) MEDICARE (M) PART A Sep 16, 2010 PART A [id number] DAYAMI BERGER IS PATIENT MEDICARE (WNR) MEDICARE (M) PART B Sep 16, 2010 PART B [id number] DAYAMI BERGER IS PATIENT Selected Encounter This section includes the information on record at ME for the Encounter. 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, l eye [facility]ANCO FIGUEROA [facility] Plan of Treatment: Future Appointments (+ [...] 09, 2024 03:00 PM AMBULATORY - MEDICINE [facility] [place] [facility] Jul 10, 2024 03:00 PM AMBULATORY - MEDICINE DANIEL IRVIN Aug 27, 2024 01:00 PM AMBULATORY - MEDICINE [facility] [place] [facility] Oct 28, 2024 03:00 PM AMBULATORY - MEDICINE [facility] [place] [facility] Nov 05, 2024 03:00 PM AMBULATORY - MEDICINE [facility] [place] [facility] Nov 10, 2024 03:00 PM AMBULATORY - MEDICINE [facility] [place] [facility] Lab Results: +/- 30 days of the [...] Type Comment Jul 07, 2024 07:41 AM [facility] LIPID PANEL FASTING SERUM Specimen Ty pe: SERUM No comment entered. Ordering Provider: AMBIKA KNIGHT Report Released Date/Time: Jul 09, 2023 03:20 PM Reporting Lab: [address] [address] Performing Lab: [address] [address] CHOLESTEROL 132 mg/dL TRIGLYCERIDE 110 mg/dL 0-150 LDL calculated 76 mg/dL 0-129 CHOL/HDL 3.9 HDL CHOLESTEROL 34 mg/dL L 40-60 Jul 07, 2024 07:41 AM [facility] HEMOGLOBIN A1C PANEL BLOOD Specimen T ype: [...] Jul 09, 2023 03:20 PM Reporting Lab: [address] [address] Performing Lab: [address] [address] HEMOGLOBIN A1C 6.4 H 4.0-5.6 Jul 07, 2024 07:41 AM [facility] BASIC METABOLIC PANEL (fasting) SERUM Specimen Type: SERUM No comment entered. Ordering Provider: AMBIKA KNIGHT Report Released Date/Time: Jul 09, 2023 03:20 PM Reporting Lab: [address] [address] Performing Lab: [address] [address] UREA NITROGEN 24 mg/dL 7-25 GLUCOSE 200 mg/dL H 65-100 SODIUM 137 mmol/L 135-145 POTASSIUM 4.9 mmol/L 3.5-5.0 CHLORIDE 106 mmol/L 100-110 CO2 24 meq/L 20-30 CREATININE, Serum 1.59 mg/dL H 0.50-1.40 eGFR(CKD-EPI 2020) 46 mL/min L >60 Jul 07, 2024 07:41 AM [facility] LIVER FUNCTION SERUM Specimen Type: SERUM No comment entered. Ordering Provider: AMBIKA KNIGHT Report Released Date/Time: Jul 09, 2023 03:20 PM Reporting Lab: [address] [address] Performing Lab: [address] [address] PROTEIN,TOTAL 7.5 g/dL 6.0-8.3 ALBUMIN 4.2 g/dL 3.5-5.0 ALKALINE PHOSPHATASE 68 U/L 40-150 AST 23 U/L 5-34 ALT 29 U/L BILIRUBIN, TOTAL 0.4 mg/dL 0.2-1.2 Jul 07, 2024 07:41 AM [facility] URINALYSIS URINE S pecimen Type: URINE Comment: If Glucose = >500 and Ketones are positive, please alert the Physician. Ordering Provider: AMBIKA KNIGHT Report Released Date/Time: Jul 09, 2023 03:20 PM Reporting Lab: [address] [address] Performing Lab: [address] [address] UA COLOR Light-Yellow Yellow UA APPEARANCE Clear Clear UA GLUCOSE >1000 mg/dL Negative UA KETONES NEGATIVE mg/dL Negative UA BLOOD NEGATIVE mg/dL Negative UA PROTEIN 20 mg/dL Negative UA NITRITE NEGATIVE mg/dL Negative UA BILIRUBIN NEGATIVE mg/dL Negative UA SPECIFIC GRAVITY 1.031 H 1.016-1.022 UA pH 5.5 5.0-9.0 UA UROBILINOGEN Normal mg/dL <2.0 UA LEUKOCYTE NEGATIVE Negative Jul 07, 2024 07:41 AM [facility] TSH SERUM Sp ecimen Type: SERUM No comment entered. Ordering Provider: AMBIKA KNIGHT Report Released Date/Time: Jul 09, 2023 03:20 PM Reporting Lab: [address] [address] Performing Lab: [address] [address] TSH 1.83 u[IU]/mL 0.35-5.00 Jul 07, 2024 07:41 AM [facility] CBC AND DIFF (AUTO) BLOOD Specimen Ty pe: BLOOD No comment entered. Ordering Provider: AMBIKA KNIGHT Report Released Date/Time: Jul 09, 2023 03:20 PM Reporting Lab: [address] [address] Performing Lab: [address] [address] WBC 7.74 10*3/uL 4.50-11.00 RBC 4.99 10*6/uL [...] 09, 2023 03:03 PM VA-TOBACCO FORMER USER [facility] Tobacco Use History This section includes a history of the smoking, or tobacco-related health factors, that were collected on or before the date of the Encounter. The data comes from the [place] facility where the Encounter took place. Date/Time Smoking Status/Tobacco Use Comment F acility Jul 09, 2023 03:03 PM [facility] Jul 05, 2022 01:51 PM [facility]AC[facility] May 11, 2021 01:18 PM VA-TOBACCO NEVER USED [facility] Encounter Notes: All associated encounter notes This section contains the clinical notes associated to the Encounter. Date/Time Encounter Note(s) Provider Source Jun 25, 2024 03:34 PM OPTOMETRY NOTE: LOCAL TITLE: OPTOMETRY NOTE STANDARD TITLE: OPTOMETRY NOTE DATE OF NOTE: JUN 25, 2024@15:34 ENTRY DATE: JUN 25, 2024@15:34:22 AUTHOR: ANDRIA FIGUEROA EXP COSIGNER: URGENCY: STATUS: COMPLETED 73 yo MALE last examined Oct 2023 with hx of diabetic retinopathy with macular edema being seen every 6 weeks by [facility]. He has followup with them. Also hx of pseudophakia OU and ERM OD here today primarily to get new glasses. Would like to go back to [facility] from bifocal. also notes his vision improves [...] 599.9 01/28/2014 LEÓN WINTERS Claudication (SNOMED CT 706418669) 06/08/2013 AMBIKA KNIGHT Elevated Prostate Specific antigen [...] 12/12/2007 DOLLY GERMAN OD Hypertension (SNOMED CT 23008556) I 12/10/2018 DELMER STALLINGS Onychomycosis * (ICD-9-CM 110.1) 11 03/02/2011 AMBIKA KNIGHT Cataract, PSC/Post Subcapsular 366. 05/12/2007 DOLLY GERMAN OD Cataract, Cortical (Senile) 366.15 05/12/2007 DOLLY GERMAN OD Cyst, ganglion 727.43 03/02/2011 AMBIKA KNIGHT Cervical Radiculopathy 723.4 03/02/2011 AMBIKA KNIGHT Shoulder Pain 799.9 03/02/2011 AMBIKA KNIGHT Hyperlipidemia (SNOMED CT 57169971) 05/02/2017 DELMER STALLINGS Old Myocardial Infarction 412. [...] 07:40 BLOOD 8.6 H VA without OD 2030-2 OS 20/25 current Rx OD OS refraction OD +0.50-1.86l363 -2 OS -0.50-0.60z768 -2 cornea clear OU but TBUT reduced OS AC D and Q OU lids/lashes clear OU iris blue OU, no NVI OU conj bulbar clear OU palpebral angles gr 4 IOP OD 18 OS 18 time:3:20 pm not dilated today since he is followed closely by [facility] every 6 weeks A 1) DM with hx of diabetic macular edema OU 2) pseudophakia OU 3) tear film dysfunction(dry eyes) P 1) [facility]. He is paying for [...] (local) and dispensed from another VA or [facility] facility (remote) as well as [...] GABAPENTIN [facility] [place] [facility] NO KNOWN ALLERGIES Med. Reconciliation (Tool #1) INCLUDED IN THIS LIST: Alphabetical list of active outpatient prescriptions dispensed from this VA (local) and dispensed from another [place] or [facility] facility (remote) as well as inpatient orders (local pending and active), local clinic medications, locally documented non-VA medications, and local prescriptions that have or been discontinued in the past 90 days. Non-VA Meds Last Documented On: Jan 02, 2023 NOTE The display of VA prescriptions dispensed from another ME or [facility] facility (remote) is limited to active outpatient prescription entries matched to National Drug File at the originating site and may not include some items such as investigational drugs, compounds, etc. NOT INCLUDED IN THIS LIST: Medications self-entered by the patient into personal health records (i.e. [employer]) are NOT included in this list. Non-VA medications documented outside this ME, remote inpatient orders (regardless of status) and [...] SPRAYS INTO EACH NOSTRIL ONCE DAILY Rx# [id number] Last Released: 07/09/23 Qty/Days Supply: 10/15 Rx Expiration Date: 07/09/24 Refills Remainin Indication: FOR NASAL IRRITATION/INFLAMMATION Non-VA FLUVASTATIN NA 40MG CAP TAKE 1 CAPSULE BY MOUTH ONCE DAILY OUTPT GLUCAGON 1MG/JEY INJ EMERGENCY KIT (Status = Active) INJECT 1 INJECTION INTRAMUSCULARLY ONE TIME NEEDED FOR LOW BLOOD SUGAR Rx# [id number] Last Released: 06/19/24 Qty/Days Supply: 10/15 Rx Expiration Date: 07/18/24 Refills Remainin Indication: FOR LOW BLOOD SUGAR OUTPT INSULIN,ASPART(EQV-NOVLG)100UN/ ML FLXPEN (Status = Active) INJECT 30 UNITS SUBCUTANEOUSLY EVERY MORNING AND INJECT 27 UNITS AT NOON AND INJECT 26 UNITS EVERY EVENING FOR DIABETES Rx# [id number] Last Released: 05/06/24 Qty/Days Supply: Rx Expiration Date: 02/06/25 Refills Remainin Indication: FOR DIABETES OUTPT INSULIN,GLARGINE-YFGN 100UNIT/ML PEN 3ML (Status = Active) INJECT 40 UNITS SUBCUTANEOUSLY TWICE DAILY FOR DIABETES Rx# [id number] Last Released: 05/06/24 Qty/Days Supply: Rx Expiration [...] 1 SENSOR DIRECTED EVERY 10 DAYS Rx# [id number] Last Released: 04/27/24 Qty/Days Supply: Rx Expiration Date: 02/07/25 Refills Remainin OUTPT GLUCOSE SENSOR FREESTYLE ANTOINE 2 (Status = Active) USE 1 SENSOR DIRECTED EVERY 14 DAYS Rx# [id number] Last Released: 02/27/24 Qty/Days Supply: 11/13 Rx Expiration Date: 12/18/24 Refills Remainin PHARMACY TERMS AND POSSIBLE PATIENT ACTIONS INPT = ME inpatient order IV = ME intravenous medication OUTPT = ME outpatient prescription PHARMACY POSSIBLE PATIENT TERMS EXPLANATION ACTIONS -------- - ACTIVE A prescription that can be If you have refills, filled at the local [place] pharmacy. you may request a refill of this prescription from your [place] pharmacy. CLINIC A medication you received during If you have questions a visit to a [place] clinic or about this medication emergency department. contact your [place] healthcare team. DISCONTINUED A prescription your provider has Contact your VA stopped. It is no longer healthcare team if you available to be sent to you or need more of this picked up at the [place] pharmacy medication. window. A prescription which is [...] the VA. Or, it may be an depn-uyh-vraxloq (OTC), herbal, dietary supplements or sample medication. [...] ==== /jamal/ Andria Figueroa OD [employer] Field Technician Signed: 06/25/2024 15:42 ANDRIA FIGUEROA [facility]
--- OUTSIDE RECORDS SUMMARY | 2024-12-30 10:02 | XMS_ITS ---
Author Organization [facility] Address [address] [place] [address] CHRIS Wolf [address] Care Team Providers Care Public Health Staff Nurse Name Role Phone Manan Reinoso MD Primary Care Provider UnavailAdnrzej Ann Unavailable [phone] Allergies No Known Allergies REASON FOR VISIT [...] Polyneuropathy due to diabetes mellitus type I (624046081) Type 1 diabetes mellitus with diabetic polyneuropathy (E10.42) Active confirmed Problem Acquired hammer toe of right foot (7096822502237339 ) Other hammer toe(s) (acquired), right foot (M20.41) Active confirmed Response to treatment, Improvemen t Problem Acquired hammer toe of left foot (7792283406977263 ) Other hammer toe(s) (acquired), left foot (M20.42) Active confirmed Response to treatment, Improvemen t Vital Signs Blood pressure systolic 120 mm Hg 07/28/20 24 Blood pressure diastolic 80 mm Hg 024 Height 5ft 8in in 07/28/2024 Weight 235 lbs 07/28/2024 BMI 35.73 kg/m2 07/28/2024 Procedures Procedure Date Ordered Date Performed Result Body Sit e 26972-CYYQEDH NAIL, 1-5 07/28/2024 N/A 77833-HEKT SKIN LESIONS, OVER 4 07/28/2024 N/A W5982-AYHLSOAD DYSTROPHIC NAILS ANY # 07/28/2024 N/A Encounters Encounter Location Date Provider Diagnosis [facility] [address] [address] 07/28/2024 Andrzej Raman Type 1 diabetes mellitus [...] INSTRUCTIONS.pdf) Pending Test Test Name Order Date 28737-PSBYMQN NAIL, 1-5 07/28/2024 04177-TLPM SKIN LESIONS, OVER 4 07/28/20 24 V8786-IMAGZKCI DYSTROPHIC NAILS ANY # Next Appt Details Follow Up: prn, Reason: Provider Name:Andrzej Camargo , 02/09/2025 03:00:00 PM, [address] [place] [address], [phone], Procedure Notes * Category Sub-Category Detail Notes [...] instrumentation by the physician of record - 28116 Debride Nails 1-5 Procedure: Due to the [...] necessary to maintain effective symptomatic relief - 22208 Nail Reduction Nail Reduction (-27) Trimming o [...] * Kirby CHRISTIANSONDOB:1950 ( 74 yo M)Acc No.[id number]:07/28/2024 Progress Note Patient:Kirby GRISSOM Provider:?Andrzej Camargo DPM :1950???Age:73 Y???Sex:Male Jason e:07/28/2024 Address:[address] [place], [place] [id number] Pcp:Manan Reinoso MD Subjective: * Chief Complaints: [...] L5 03/06cataract surgery append[place] [facility] [place] * Hospitalization/Major Diagno stic Procedure:?Denies Past [...] pain, Leg(s), Ankle(s), B/L.?Ophthalmology Referral: ?DIABETES EYE EXAM?Procedure Performed:?Yes ?Date of Exam Performed?07/03/2024 ?Diabetic Retinopathy Screening:?Yes ?Retinal Screening Performed:?Yes ?Findings of Diabetic Eye Exam:?no retinopathy?General Examination: ?GENERAL APPEARANCE:?Reveals a pleasant, alert, well nourished, well- developed, well hydrated individual, who demonstrates proper attention to hygiene/body habitus, and is in no acute distress, Pt serves as own historian for office visit today, Pt accompanied by, , and/who is physically present in exam room at time of visit.?ORIENTED:?person, place, and time.?FOOT EXAM:?Lower Extremity Neurological Exam performed:?Yes ?Visual exam of foot performed:?Yes ?Date?07/28/2024 ?Footwear Evaluation?Footwear Evaluation performed:?Yes??? Assessment: * Assessment: 1.?Tinea unguium - B35.1???2 [...] necessary to maintain effective symptomatic relief - 56446.?Keratoma Treatment:?Parring or Cutting of Benign Hyperkeratotic Lesion(s)?(-57) [...] instrumentation by the physician of record - 73039.?Nail Reduction:?Nail Reduction?(-27) Trimming of all dystrophic nails [...] or bed tissue - G0127.? * Procedure Codes:?97186 TRIM SKIN LESIONS, OVER 4, Modifiers: XS 06643 DEBRIDE NAIL, 1-5, Modifiers: XS G0127 TRIMMING [...] Camargo DPM Date:?2023 Generated for Zachary wells/Concepcion/Jasmeet on:?12/30/2024 10:02 AM EDT History and Physical Notes * [...] MORPHOLOGY: (-) Charcot collapse /destruction noted at DEJ FOOTWEAR EVALUATION: worn, non-supportiv e, shoe gear properties exacerbate patient's foot/toe deformity [...]
--- OUTSIDE RECORDS SUMMARY | 2024-12-30 10:02 | XMS_ITS ---
Author Name [place] Address [address] [place] [address] Care Team Providers Care Rim Technician Name Role Phone SHAW MOSCOSO Primary Care [...] MEDIC ARE D Sep 16, 2016 PDPIND [id number] [phone] DAYAMI BERGER IS PATIENT AETNA [facility] (WNR) MEDICARE ADVANTAGE [place] INDIV IDUAL - [place] Feb 14, 2022 [id number] [phone] DAYAMI BERGER IS PATIENT MEDICAID MEDICAID [facility] Jul 17, 2015 MEDICAI D [id number] DAYAMI BERGER IS PATIENT MEDICARE (WNR) MEDICARE (M) PART A Sep 16, 2010 PART A [id number] [phone] DAYAMI BERGER IS PATIENT MEDICARE (WNR) MEDICARE (M) PART B Sep 16, 2010 PART B [id number] DAYAMI BERGER IS PATIENT MEDICARE (WNR) MEDICARE (M) PART A Sep 16, 2010 PART A [id number] DAYAMI BERGER IS PATIENT MEDICARE (WNR) MEDICARE (M) PART B Sep 16, 2010 PART B [id number] DAYAMI BERGER IS PATIENT Selected Encounter This section includes the information on record at [place] for the Encounter. Date/Time Encounter Type Encounter Description Reason Provider Source May 14, 2024 08:00 AM Outpatient Encounter GENERAL INTERNAL MEDICINE ICD-10-CM Z02.89 Encounter for other administrative examinations [facility] Encounter Template Text not used by [place] Assessments - Encounter Diagnoses This section includes the primary and secondary diagnoses documented for the Encounter. Date/Time Primary/Secondary Diagnosis Diagnosis Name Provider Source May 14, 2024 08:45 AM PRIMARY Encounter for other administrative examinations [facility] [place] [facility] [place] [place] [facility] Plan of Treatment: Future Appointments (+ 6 months) and Future Tests (+/- 45 days) The Plan of Treatment section includes future care activities for the [facility] [place] [facility] This section includes future appointments and future orders which are active, pending or scheduled. Future Appointments This section includes appointments that were scheduled to occur 6 months from the date of the Encounter, up to a maximum of 20 appointments. The data comes from all [place] treatment facilities. Appointment Date/Time Appointment Type Appointme nt Facility Name May 20, 2024 03:00 PM AMBULATORY - [place]ICINE [place] [facility] Jun 25, 2024 03:00 PM AM[place]ORY [place] [facility] Jul 09, 2024 03:00 PM AM[place]ORY [place] [facility] Jul 10, 2024 03:00 PM [facility] Aug 27, 2024 01:00 PM AM[place]UL[place]ORY [place] [facility] Oct 28, 2024 03:00 PM [place]ORY [place] [facility] Nov 05, 2024 03:00 PM AM[place]UL[place]ORY [place] [facility] Nov 10, 2024 03:00 PM AMBULATORY - MEDICINE [facility] Lab Results: +/- 30 days of [...] Type Comment May 08, 2024 08:12 AM [facility] [place] [facility] MICROALBUMIN CREATININE RATIO PANEL URINE Spe cimen Type: URINE No comment entered. Ordering Provider: NNEKA RAMOS Report Released Date/Time: Nov 12, 2023 03:09 PM Reporting Lab[facility] [address] Performing Lab: [facility]ITALUSETS [address] [address] MICROALBUMIN/CREATININE RATIO 116.9 mg/g H 0-29.9 MICROALBUMIN,QUANTITATIVE 11.6 mg/dL RR UNAVAIL CREATININE URINE 99.23 mg/dL May 07, 2024 10:[address] [address] PO4 SERUM Specimen Type: SERUM No comment entered. Ordering Provider: MELANIA RAMOS Report Released Date/Time: Nov 12, 2023 03:09 PM Reporting Lab: [facility] [address] [address] Performing Lab: [facility] [address] [address] PO4 2.4 mg/dL L 2.5-5.0 May 07, 2024 10:[address] [facility] [address] VITAMIN D (25-[place]) SERUM Specimen Type: SERUM No comment entered. Ordering Provider: MELANIA RAMOS Report Released Date/Time: Nov 12, 2023 03:09 PM Reporting Lab: [facility] [address] [address] Performing Lab: [facility] [place] [facility] [address] [facility] [address] VITAMIN D (25-[place]) 30 ng/mL 20-50 May 07, 2024 10:37 AM [facility]TRN [facility] PTH INTACT SERUM Specimen Type: SERUM No comment entered. Ordering Provider: MELANIA RAMOS Report Released Date/Time: Nov 12, 2023 03:09 PM Reporting Lab: [facility] [place] [address] [address] Performing Lab: [place] [address] [address] PTH INTACT 99.2 pg/mL H 10-65 May 07, 2024 10:[address] [address] MAGNESIUM SERUM Specimen Type: SERUM No comment entered. Ordering Provider: MELANIA RAMOS Report Released Date/Time: Nov 12, 2023 03:09 PM Reporting Lab: [facility]ENTERTRN [facility]USETS [address] [address] Performing Lab: [facility]ITAL[facility] TRN [place] [address] [address] MAGNESIUM 1.8 mg/dL 1.6-2.6 May 07, 2024 10:[address] [facility] CALCIUM SERUM Specimen Type: SERUM No comment entered. Ordering Provider: MELANIA RAMOS Report Released Date/Time: Nov 12, 2023 03:09 PM Reporting Lab: [facility]ENTERTR[facility] [place] [address] [address] Performing Lab: [facility]N [place] [address] [address] CALCIUM 9.0 mg/dL 8.5-10.2 May 07, 2024 10:[address] [facility] ALBUMIN SERUM Specimen Type: SERUM No comment entered. Ordering Provider: MELANIA RAMOS Report Released Date/Time: Nov 12, 2023 03:09 PM Reporting Lab: [facility]ENTERTRN [place] [address] [address] Performing Lab: [facility]ITALR[facility]ENTERTRN [facility]US[facility] [address] [address] ALBUMIN 3.8 g/dL 3.5-5.0 May 07, 2024 10:37 AM [facility] ALKALINE PHOSPHATASE SERUM Specimen Type: SER UM No comment entered. Ordering Provider: MELANIA RAMOS Report Released Date/Time: Nov 12, 2023 03:09 PM Reporting Lab: [address] [address] Performing Lab: [address] [address] ALKALINE PHOSPHATASE 72 U/L 40-150 May 07, 2024 10:37 AM [facility] FERRITIN SERUM Specimen Type: SERUM No comment entered. Ordering Provider: MELANIA RAMOS Report Released Date/Time: Nov 12, 2023 03:09 PM Reporting Lab: [address] [address] Performing Lab: [address] [address] FERRITIN 157 ng/mL 20-300 May 07, 2024 10:37 AM [facility] BASIC METABOLIC PANEL (non-fasting) SERUM Spe cimen Type: SERUM No comment entered. Ordering Provider: MELANIA RAMOS Report Released Date/Time: Nov 12, 2023 03:09 PM Reporting Lab: [address] [address] Performing Lab: [address] [address] UREA NITROGEN 20 mg/dL 7-25 GLUCOSE 168 mg/dL H 65-100 SODIUM 138 mmol/L 135-145 POTASSIUM 4.1 mmol/L 3.5-5.0 CHLORIDE 109 mmol/L 100-110 CO2 22 meq/L 20-30 CREATININE, Serum 1.38 mg/dL 0.50-1.40 eGFR(CKD-EPI 2020) 54 mL/min L >60 May 07, 2024 10:37 AM [facility] IRON & TIBC PANEL SERUM Specimen Type: SERUM No comment entered. Ordering Provider: MELANIA RAMOS Report Released Date/Time: Nov 12, 2023 03:09 PM Reporting Lab: [address] [address] Performing Lab: [address] [address] TIBC 267 ug/dL 204-475 IRON 64 ug/dL 40-160 Transferrin Saturation 24.0 20.0-50.0 May 07, 2024 10:37 AM [facility] CBC BLOOD Specimen Type: BLOOD No comment entered. Ordering Provider: MELANIA RAMOS Report Released Date/Time: Nov 12, 2023 03:09 PM Reporting Lab: [address] [address] Performing Lab: [address] [address] WBC 6.55 10*3/uL 4.50-11.00 RBC 4.65 10*6/uL [...] and tobacco- related health factors from the [place] facility where the Encounter took place. Current Smoking Status This section includes the most current smoking, or tobacco-related health factor, from the [place] facility where the Encounter took place. Date/Time Current Smoking Status Comment Debbie ity Jul 09, 2023 03:03 PM VA-TOBACCO FORMER USER [facility] Tobacco Use History This section includes a history of the smoking, or tobacco-related health factors, that were collected on or before the date of the Encounter. The data comes from the [place] facility where the Encounter took place. Date/Time Smoking Status/Tobacco Use Comment F acility Jul 09, 2023 03:03 PM VA-TOBACCO QUIT 15 YRS OR MORE [place] [facility] [place] [facility] Jul 05, 2022 01:51 PM VA-TOBACCO NEVER USED [place] [facility] [place] [facility] May 11, 2021 01:18 PM VA-TOBACCO NEVER USED [place] [facility] [place] [facility] Encounter Notes: All associated encounter notes This section contains the clinical notes associated to the Encounter. Date/Time Encounter Note(s) Provider Source May 14, 2024 08:00 AM C & P EXAMINATION NOTE: LOCAL TITLE: COMPENSATION AND PENSION EXAM STANDARD TITLE: C & P EXAMINATION NOTE DATE OF NOTE: MAY 14, 2024@08:00 ENTRY DATE: MAY 14, 2024@08:36:04 AUTHOR: ROXANNE LLANES EXP COSIGNER: URGENCY: STATUS: COMPLETED Sleep Apnea Disability Benefits Questionnaire Name of patient/Lima: JESSICA BERGER ([id number]) Is this DBQ being completed in conjunction with a [place] 67-2035, C&P Examination Request? [X] Yes [ ] [...] all that apply): [X] [place] [X] [place] electronic health record [X] Other, please identify other evidence reviewed. VBMS, JLV, VISTAIMAGING, CPRS Evidence Comments: * 04/06/2024 VBA RATING DECISION: - Service connection for tinnitus is granted. 1. Diagnosis Does the Lima have or has he/she ever had sleep [...] = 240.3 LBS. * 07/31/2016 Polysomnogram Treatment [place]. Study showed successful trail of nasal CPAP [...] ] Yes [X] No c. Does the require the use of a breathing assistance device? [ ] Yes [X] No d. Does the Lima require the use of a continuous positive airway pressure (CPAP) machine? [X] Yes [ ] No 3. Findings, signs and symptoms ------- Does the currently have any findings, signs or symptoms attributable to sleep apnea? [ ] Yes [X] No 4. Other pertinent physical findings, complications, conditions, signs, symptoms and scars a. Does the have any other pertinent physical findings, complications, conditions, signs or symptoms related to any conditions listed in the Diagnosis Section above? [X] Yes [ ] No If yes, describe (brief summary): BMI > 30 b. Does the Lima have any scars (surgical or otherwise) related to any conditions or to the treatment of any conditions listed in the Diagnosis Section above? [ ] Yes [X] No c. Comments, if any: N/A 5. Diagnostic testing a. Has a sleep study been performed? [X] Yes [ ] No If yes, does the have documented sleep disorder breathing? [X] Yes [ ] No Date of sleep study: 11/17/2015 Facility where sleep study performed, if known: [facility] Results: AHI OF 24. Moderate obstructive sleep apnea b. Are there any other significant diagnostic test findings and/or results? [ ] Yes [X] No 6. Functional impact Does the 's sleep apnea impact his or her ability to work? [ ] Yes [X] No 7. Remarks, if any: NO ADDITIONAL COMMENTS Medical Opinion Disability Benefits Questionnaire Name of patient/Lima: JESSICA BERGER ([id number]) KERRI and Evidence Review [...] all that apply): [X] [place] [X] [place] electronic health record [X] Other (please identify other evidence reviewed): VBMS, JLV, VISTAIMAGING, CPRS Evidence Comments: * 04/06/2024 VBA RATING DECISION: - Service connection for tinnitus is granted. MEDICAL OPINION SUMMARY RESTATEMENT OF REQUESTED OPINION: a. Opinion from general remarks: THE 2507 DATED MAY 13, 2024 REQUESTS THE FOLLOWING [...] due to or the result of the Lima's service connected condition. c. Rationale: REVIEW OF [...] = 240.3 LBS. * 07/31/2016 Polysomnogram Treatment [place]. Study showed successful trail of nasal CPAP [...] Weight 160 lbs. REVIEW OF MEDICAL LITERATURE: [employer] ??? website accessed April 2024 * NAI is [...] MEDICAL OPINION for DIRECT SERVICE CONNECTION: The Lima's available STRS are silent for sleeping issues. [...] It is my medical opinion that the Lima's current diagnosis of Obstructive Sleep Apnea is less likely as not(likelihood is less than approximately or nearly equal) proximately due to or related to his [place] tinnitus. * /jamal/ RENÉ LLANES NURSE PRACTITIONER Signed: 05/14/2024 08:36 ROXANNE LLANES CNTRL W[facility]N [facility]
--- OUTSIDE RECORDS SUMMARY | 2024-12-30 10:02 | XMS_ITS | Encounter Summary ---
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 Name Role Phone SHAW MOSCOSO Primary [...] MEDIC ARE D Sep 16, 2016 PDPIND [id number] [phone] DAYAMI BERGER IS PATIENT AETNA [facility] (WNR) MEDICARE ADVANTAGE [place] INDIV IDUAL - [place] Feb 14, 2022 [id number] [phone] DAYAMI BERGER IS PATIENT MEDICAID MEDICAID [facility] Jul 17, 2015 MEDICAI D [id number] DAYAIM BERGER IS PATIENT MEDICARE (WNR) MEDICARE (M) PART A Sep 16, 2010 PART A [id number] DAYAMI BERGER IS PATIENT MEDICARE (WNR) MEDICARE (M) PART B Sep 16, 2010 PART B [id number] DAYAMI BERGER IS PATIENT MEDICARE (WNR) MEDICARE (M) PART A Sep 16, 2010 PART A [id number] DAYAMI BERGER IS PATIENT MEDICARE (WNR) MEDICARE (M) PART B Sep 16, 2010 PART B [id number] [phone] DAYAMI BERGER IS PATIENT Selected Encounter This section includes the information on [place] for the Encounter. Date/Time Encounter Type Encounter Description Reason Pro vider Source May 20, 2024 03:00 PM Outpatient Encounter CLINICAL PHARMACY [facility] Encounter Template Text not used by [place] Plan of Treatment: Future Appointments (+ 6 [...] [place] treatment facilities. Appointment Date/Time Appointment Type Appointme nt Facility Name Jun 25, 2024 03:00 PM AMBULATORY - [place]ICINE [place] [facility] Jul 09, 2024 03:00 PM AMBULATORY MEDICINE [place] [facility] Jul 10, 2024 03:00 PM AMBULATORY - MEDICINE [facility] Aug 27, 2024 01:00 PM AMBULATORY - MEDICINE [place] [facility] Oct 28, 2024 03:00 PM AMBULATORY - MEDICINE [place] [facility] [place] [facility] Nov 05, 2024 03:00 PM AMBULATORY - MEDICINE [place] [facility] [place] [facility] Nov 10, 2024 03:00 PM AMBULATORY - MEDICINE [place] [facility] [place] [facility] Lab Results: +/- 30 days of [...] Type Comment May 08, 2024 08:12 AM [facility] [place] [facility] MICROALBUMIN CREATININE RATIO PANEL URINE Spe cimen Type: URINE No comment entered. Ordering Provider: NNEKA RAMOS Report Released Date/Time: Nov 12, 2023 03:09 PM Reporting Lab: [facility] [place] [facility] [address] [facility] [address] Performing Lab: [facility] [place] [facility] [address] [facility] [address] MICROALBUMIN/CREATININE RATIO 116.9 mg/g H 0-29.9 MICROALBUMIN,QUANTITATIVE 11.6 mg/dL RR UNAVAIL CREATININE URINE 99.23 mg/dL May 07, 2024 10:37 AM [facility] [place] [facility] PO4 SERUM Specimen Type: SERUM No comment entered. Ordering Provider: MELANIA RAMOS Report Released Date/Time: Nov 12, 2023 03:09 PM Reporting Lab: [facility] [place] [facility] [address] [facility] [address] Performing Lab: [facility] [address] [facility] [address] PO4 2.4 mg/dL L 2.5-5.0 May 07, 2024 10:37 AM [facility] PTH INTACT SERUM Specimen Type: SERUM No comment entered. Ordering Provider: MELANIA RAMOS Report Released Date/Time: Nov 12, 2023 03:09 PM Reporting Lab: [facility] [place] [facility] [address] [facility] [address] Performing Lab: [facility] [place] [facility] [address] [facility] [address] PTH INTACT 99.2 pg/mL H 10-65 May 07, 2024 10:37 AM [facility] VITAMIN D (25-[place]) SERUM Specimen Type: SERUM No comment entered. Ordering Provider: MELANIA RAMOS Report Released Date/Time: Nov 12, 2023 03:09 PM Reporting Lab: [facility] [place] [facility] [address] [facility] [address] Performing Lab: [facility] [address] [facility] [address] VITAMIN D (25-OH) 30 ng/mL 20-50 May 07, 2024 10:37 AM [facility] MAGNESIUM SERUM Specimen Type: SERUM No comment entered. Ordering Provider: MELANIA RAMOS Report Released Date/Time: Nov 12, 2023 03:09 PM Reporting Lab: [facility]ITALUSE[address] [address] Performing Lab: [facility]ITALUSETS [address] [address] MAGNESIUM 1.8 mg/dL 1.6-2.6 May 07, 2024 10:37 AM [facility] CALCIUM SERUM Specimen Type: SERUM No comment entered. Ordering Provider: MELANIA RAMOS Report Released Date/Time: Nov 12, 2023 03:09 PM Reporting Lab: [facility] [address] Performing Lab: [facility]ITALUSETS [address] [address] CALCIUM 9.0 mg/dL 8.5-10.2 May 07, 2024 10:37 AM [facility] ALBUMIN SERUM Specimen Type: SERUM No comment entered. Ordering Provider: MELANIA RAMOS Report Released Date/Time: Nov 12, 2023 03:09 PM Reporting Lab: [facility] [address] Performing Lab: [facility]ITALUSETS [address] [address] ALBUMIN 3.8 g/dL 3.5-5.0 May 07, 2024 10:37 AM [facility] ALKALINE PHOSPHATASE SERUM Specimen Type: SER UM No comment entered. Ordering Provider: MELANIA RAMOS Report Released Date/Time: Nov 12, 2023 03:09 PM Reporting Lab: [address] [address] Performing Lab: [facility] [place] [facility] [address] [facility] [address] ALKALINE PHOSPHATASE 72 U/L 40-150 May 07, 2024 10:37 AM [facility] FERRITIN SERUM Specimen Type: SERUM No comment entered. Ordering Provider: MELANIA RAMOS Report Released Date/Time: Nov 12, 2023 03:09 PM Reporting Lab: [address] [address] Performing Lab: [facility] [address] [address] FERRITIN 157 ng/mL 20-300 May 07, 2024 10:37 AM [facility] IRON & TIBC PANEL SERUM Specimen Type: SERUM No comment entered. Ordering Provider: MELANIA RAMOS Report Released Date/Time: Nov 12, 2023 03:09 PM Reporting Lab: [address] [address] Performing Lab: [address] [address] TIBC 267 ug/dL 204-475 IRON 64 ug/dL 40-160 Transferrin Saturation 24.0 20.0-50.0 May 07, 2024 10:37 AM [facility] BASIC METABOLIC PANEL (non-fasting) SERUM Spe cimen Type: SERUM No comment entered. Ordering Provider: MELANIA RAMOS Report Released Date/Time: Nov 12, 2023 03:09 PM Reporting Lab: [facility]ITALUSE[address] [address] Performing Lab: [facility]ITAL[facility] [address] UREA NITROGEN 20 mg/dL 7-25 GLUCOSE 168 mg/dL H 65-100 SODIUM 138 mmol/L 135-145 POTASSIUM 4.1 mmol/L 3.5-5.0 CHLORIDE 109 mmol/L 100-110 CO2 22 meq/L 20-30 CREATININE, Serum 1.38 mg/dL 0.50-1.40 eGFR(CKD-EPI 2020) 54 mL/min L >60 May 07, 2024 10:37 AM [facility] CBC BLOOD Specimen Type: BLOOD No comment entered. Ordering Provider: MELANIA RAMOS Report Released Date/Time: Nov 12, 2023 03:09 PM Reporting Lab: [facility] [address] [facility] [address] Performing Lab: [facility] [address] [facility] [address] WBC 6.55 10*3/uL 4.50-11.00 RBC 4.65 10*6/uL [...] and tobacco- related health factors from the [place] facility where the Encounter took place. Current Smoking Status This section includes the most current smoking, or tobacco-related health factor, from the [place] facility where the Encounter took place. Date/Time Current Smoking Status Comment Debbie thao February 03, 2019 10:28 AM VA-TOBACCO NEVER USED [place] Tobacco Use History This section includes a history of the smoking, or tobacco-related health factors, that were collected on or before the date of the Encounter. The data comes from the [place] facility where the Encounter took place. Date/Time Smoking Status/Tobacco Use Comment F acility Jan 13, 2018 09:49 AM LIFETIME NON-TOBACCO USER [place] Jan 04, 2017 10:17 AM LIFETIME NON-TOBACCO USER [place] Dec 23, 2015 08:49 AM LIFETIME NON-TOBACCO USER [place] Nov 27, 2005 02:55 PM LIFETIME NON-TOBACCO USER patient reportssmoking only crack coccaine [facility] January 22, 2003 10:42 AM LIFETIME NON-SMOKER [place] Aug 18, 2001 01:54 PM LIFETIME NON-TOBACCO USER pt states he has never smoked [facility] May 14, 2001 02:23 PM LIFETIME NON-SMOKER [place] Encounter Notes: All associated encounter notes This [...] ADDENDA Patient Name: JESSICA BERGER Patient SSN: [id number] Date and time of Appointment No show [...] 5 11/05/2024 15:00 CWM/NO/OPTOMETRY/MERHAR 11/10/2024 15:00 CWM/NO/NEPHROLOGY/PROV /jamal/ ROB MATTHEW CLINICAL GULLET SLITTER Signed: 05/20/2024 15:47 Receipt Acknowledged By: 05/20/2024 15:51 /jamal/ AMADA TRUONG 05/20/2024 ADDENDUM STATUS: COMPLETED This field underwriter scheduled appointment for 07/01/2024 at 3:00pm with cwm/so/pharm/pact 2. /jamal/ AMADA TRUONG Signed: 05/20/2024 16:20 ROB MATTHEW
--- OUTSIDE RECORDS SUMMARY | 2024-12-30 10:02 | XMS_ITS | Encounter Summary ---
Author Name [facility] [place] Organization [place] Address [address] [place] [address] Care Team Providers Care Esol Instructor Name Role Phone SHAW MOSCOSO Primary [...] MEDIC ARE D Sep 16, 2016 PDPIND [id number] [phone] DAYAMI BERGER IS PATIENT AETNA [facility] (WNR) MEDICARE ADVANTAGE [place] INDIV IDUAL - [place] Feb 14, 2022 [id number] [phone] DAYAMI BERGER IS PATIENT MEDICAID MEDICAID [facility] Jul 17, 2015 MEDICAI D [id number] DAYAMI BERGER IS PATIENT MEDICARE (WNR) MEDICARE (M) PART A Sep 16, 2010 PART A [id number] [phone] CELINEDAYAMI IS PATIENT MEDICARE (WNR) MEDICARE (M) PART B Sep 16, 2010 PART B [id number] DAYAMI BEGRER IS PATIENT MEDICARE (WNR) MEDICARE (M) PART A Sep 16, 2010 PART A [id number] DAYAMI BERGER IS PATIENT MEDICARE (WNR) MEDICARE (M) PART B Sep 16, 2010 PART B [id number] DAYAMI BERGER IS PATIENT Selected Encounter This section includes the information on record at [place] for the Encounter. Date/Time Encounter Type Encounter Description Reason Provider Source Nov 10, 2024 03:00 PM OFFICE O/P EST MOD 30 MIN RENAL/NEPHROL(EXCE PT DIALYSIS) ICD-10-CM E11.22 Type 2 diabetes mellitus w diabetic chronic kidney disease LISA RAMOS [facility] Encounter Template Text not used by [place] Assessments - Encounter Diagnoses This section includes the primary and secondary diagnoses documented for the Encounter. Date/Time Primary/Secondary Diagnosis Diagnosis Name Provider Source Nov 12, 2024 11:52 AM PRIMARY Type 2 diabetes mellitus w diabetic chronic kidney disease JOVI RAMOS [facility] [place] [facility] Nov 12, 2024 11:52 AM SECONDARY Chronic kidney disease, stage 3 unspecified JOVI RAMOS [facility] [place] [facility] Nov 12, 2024 11:52 AM SECONDARY Essential (primary) hypertension JOVI RAMOS [facility] [place] [facility] Nov 12, 2024 11:52 AM SECONDARY Hyperlipidemia, unspecified [facility] Plan of Treatment: Future Appointments (+ 6 [...] 18, 2025 03:30 PM AMBULATORY - MEDICINE [facility] Apr 07, 2025 01:00 PM AMBULATORY - MEDICINE [facility] Lab Results: +/- 30 days of the [...] Type Comment Nov 04, 2024 09:54 AM [facility] FERRITIN SERUM Specimen Type: SERUM No comment entered. Ordering Provider: MELANIA RAMOS Report Released Date/Time: May 12, 2024 03:50 PM Reporting Lab: [address] [address] Performing Lab: [address] [address] FERRITIN 110 ng/mL 20-300 Nov 04, 2024 09:54 AM [facility] IRON & TIBC PANEL SERUM Specimen Type: SERUM No comment entered. Ordering Provider: MELANIA RAMOS Report Released Date/Time: May 12, 2024 03:50 PM Reporting Lab: [address] [address] Performing Lab: [address] [address] TIBC 305 ug/dL 204-475 IRON 93 ug/dL 40-160 Transferrin Saturation 30.5 20.0-50.0 Transferrin (TRF) 231 mg/dL 200-360 Nov 04, 2024 09:54 AM [facility] MICROALBUMIN CREATININE RATIO PANEL URINE Spe cimen Type: URINE No comment entered. Ordering Provider: MELANIA RAMOS Report Released Date/Time: May 12, 2024 03:50 PM Reporting Lab: [address] [address] Performing Lab: [address] [address] MICROALBUMIN/CREATININE RATIO 259.0 mg/g H 0-29.9 MICROALBUMIN,QUANTITATIVE 14.5 mg/dL RR UNAVAIL CREATININE URINE 55.99 mg/dL Nov 04, 2024 09:54 AM [facility] BASIC METABOLIC PANEL (non-fasting) SERUM Spe cimen Type: SERUM No comment entered. Ordering Provider: MELANIA RAMOS Report Released Date/Time: May 12, 2024 03:50 PM Reporting Lab: [facility] [address] [facility] [address] Performing Lab: [address] [address] UREA NITROGEN 23 mg/dL 7-25 GLUCOSE 65 mg/dL 65-100 SODIUM 138 mmol/L 135-145 POTASSIUM 4.3 mmol/L 3.5-5.0 CHLORIDE 108 mmol/L 100-110 CO2 22 meq/L 20-30 CALCIUM 9.2 mg/dL 8.5-10.2 CREATININE, Serum 1.42 mg/dL H 0.50-1.40 eGFR(CKD-EPI 2020) 52 mL/min L >60 Nov 04, 2024 09:54 AM [facility] LIPID PANEL, NON FASTING SERUM Specimen Type: SERUM No comment entered. Ordering Provider: MELANIA RAMOS Report Released Date/Time: May 12, 2024 03:50 PM Reporting Lab: [address] [address] Performing Lab: [address] [address] CHOLESTEROL 136 mg/dL TRIGLYCERIDE 75 mg/dL 0-150 LDL calculated 82 mg/dL 0-129 CHOL/HDL 3.5 HDL CHOLESTEROL 39 mg/dL L 40-60 Nov 04, 2024 09:54 AM [facility] CBC BLOOD Specimen Type: BLOOD No comment entered. Ordering Provider: MELANIA RAMOS Report Released Date/Time: May 12, 2024 03:50 PM Reporting Lab: [address] [address] Performing Lab: [address] [place] [address] WBC 7.93 10*3/uL 4.50-11.00 RBC 5.07 10*6/uL 4.23-5.66 HGB 14.8 g/dL 12.8-17 HCT 43.4 39.2-50.4 MCV 85.6 fL 82-99 MCHC 34.1 g/dL 30.8-35.1 PLT 245 10*3/uL 140-360 RDW-CV 12.9 12.0-16.0 MCH 29.2 pg 26.2-32.6 Vital Signs: All taken on the encounter date This section contains inpatient and outpatient Vital Signs collected on the date of the Encounter. Date/Time Temperature Pulse Blood Pressure Respiratory Rate SP02 Pain Height Weight Body Mass Index Source Nov 10, 2024 03:17 PM 97.7 67 135/75 18 96 0 245 37 [facility] Social History: Smoking Status [...] 09, 2023 03:03 PM VA-TOBACCO FOR[facility] USER [facility] Tobacco Use History This section includes a history of the smoking, or tobacco-related health factors, that were collected on or before the date of the Encounter. The data comes from the [place] facility where the Encounter took place. Date/Time Smoking Status/Tobacco Use Comment F acility Jul 09, 2023 03:03 PM VA-TOBACCO QUIT 15 YRS OR MORE [place] [facility] Jul 05, 2022 01:51 PM VA-TOBACCO NEVER USED [place] [facility] May 11, 2021 01:18 PM VA-TOBACCO [facility] Encounter Notes: All associated encounter notes This section contains the clinical notes associated to the Encounter. Date/Time Encounter Note(s) Provider Source Nov 10, 2024 09:39 AM NEPHROLOGY E & M NOTE: LOCAL TITLE: NEPHROLOGY NOTE STANDARD TITLE: NEPHROLOGY E & M NOTE DATE OF NOTE: NOV 10, 2024@09:39 ENTRY DATE: NOV 10, 2024@09:39:33 AUTHOR: MELANIA RAMOS COSIGNER: URGENCY: STATUS: COMPLETED Nephrology Note Follow-Up 11/10/24 15:00 Consultation Problem:Chronic Kidney Disease STage 3 History:74 year old diabetic male with a history [...] stopped and now his vision is back. The patient states he loves to walk which he is doing 4-5 miles every day. Medications: Active and Recently Outpatient Medications (excluding [...] 3a: Review of the patient's labs from Nov 04, 2024 showed a normal bicarb(22), Potassium(4.3), His creatinine was 1.59 is now 1.42 The patient's urine microalb/cr ratio was 117 is now 259. Will reassess on return to see if increasing trend continues. No med changes The patient will return in 5 months obtaining labs for that visit #2. Hypotension: The patient blood pressure reportedly has been staying in the 135/75 p=67. patient's blood pressure is much better. 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 #4. Hyperlipidemia: The patient's lipid studies this Nov 03 showed a cholesterol of 136,LDL 82(goal <55) and HDL of 39. He will continue his Atorvastatin and a [...] very beneficial. #6. Anemia: the patient's H/H= 14.8/43 p=86 this Oct. His H/H is normal. . His iron profile showed an iron of 93, ferritin of 110, TSAT of 31 and TIBC of 305. He is presently taking FESO4 325mg/day. He [...] or non-VA provider. /jamal/ MELANIA RAMOS M.D. TEACHER RESOURCE GRAINING OPERATOR Signed: 11/10/2024 15:27 MELANIA RAMOS [facility]
--- OUTSIDE RECORDS SUMMARY | 2024-12-30 10:03 | XMS_ITS | Encounter Summary ---
Author Name [facility] [place] Organization [place] Address [address] [place] [address] Care Team Providers Care Quality Control Clerk Name Role Phone SHAW MOSCOSO Primary Care [...] MEDIC ARE D Sep 16, 2016 PDPIND [id number] [phone] DAYAMI BERGER IS PATIENT AETNA [facility] (WNR) MEDICARE ADVANTAGE CT INDIV IDUAL - [place] Feb 14, 2022 [id number] [phone] DAYAMI BERGER IS PATIENT MEDICAID MEDICAID [facility] Jul 17, 2015 MEDICAI D [id number] DAYAMI BERGER IS PATIENT MEDICARE (WNR) MEDICARE (M) PART A Sep 16, 2010 PART A [id number] CELINEDAYAMI IS PATIENT MEDICARE (WNR) MEDICARE (M) PART B Sep 16, 2010 PART B [id number] DAYAMI BERGER IS PATIENT MEDICARE (WNR) MEDICARE (M) PART A Sep 16, 2010 PART A [id number] DAYAMI BERGER IS PATIENT MEDICARE (WNR) MEDICARE (M) PART B Sep 16, 2010 PART B [id number] [phone] DAYAMI BERGER IS PATIENT Selected Encounter This section includes the information on record at CT for the Encounter. Date/Time Encounter Type Encounter Description Reason Provider Source May 12, 2024 03:30 PM OFFICE O/P EST MOD 30 MIN RENAL/NEPHROL(EXCE PT DIALYSIS) ICD-10-CM E11.22 Type 2 diabetes mellitus w diabetic chronic kidney disease LISA RAMOS [facility] Encounter Template Text not used by CT Assessments - Encounter Diagnoses This section includes the primary and secondary diagnoses documented for the Encounter. Date/Time Primary/Secondary Diagnosis Diagnosis Name Provider Source May 12, 2024 03:54 PM PRIMARY Type 2 diabetes mellitus w diabetic chronic kidney disease [facility] RAM[facility] [place] [facility] May 12, 2024 03:54 PM SECONDARY Chronic kidney disease, stage [address] [place] [facility] [place] [facility] May 12, 2024 03:54 PM SECONDARY Essential (primary) hypertension JOVI RAMOS CT CNT [facility] [place] [facility] May 12, 2024 03:54 PM SECONDARY Hyperlipidemia, unspecified JOVI RAMOS CT CNTR [facility] [place] [facility] May 12, 2024 03:54 PM SECONDARY Obesity, unspecified JOVI RAMOS CT CNT [facility]SN [place] [facility] May 12, 2024 03:54 PM SECONDARY Type 2 diabetes mellitus without complications [facility] Plan of Treatment: Future Appointments (+ 6 months) and Future Tests (+/- 45 days) The Plan of Treatment section includes future care activities for the patient from all CT treatmentfacilities. This section includes future appointments and future orders which are active, pending or scheduled. Future Appointments This section includes appointments that were scheduled to occur 6 months from the date of the Encounter, up to a maximum of 20 appointments. The data comes from all CT treatment facilities. Appointment Date/Time Appointment Type Appointme nt Facility Name May 14, 2024 08:00 AM AMBULATORY [facility]ICINE [facility] [place] [facility] May 20, 2024 03:00 PM AMBULATORY [facility] MEDICINE [facility] [place] [facility] Jun 25, 2024 03:00 PM AMBULATORY - MEDICINE [facility] [place] [facility] Jul 09, 2024 03:00 PM AMBULATORY [facility] MEDICINE [facility] [place] [facility] Jul 10, 2024 03:00 PM [facility] Aug 27, 2024 01:00 PM AMBULATORY - MEDICINE CT C NTRL [place] [place] [facility] Oct 28, 2024 03:00 PM AMBULATORY - MEDICINE [facility] [place] [facility] Nov 05, 2024 03:00 PM AMBULATORY - MEDICINE [facility] [place] [facility] Nov 10, 2024 03:00 PM AMBULATORY - MEDICINE CT C NTRL [place] [place] [facility] Lab Results: +/- 30 days of the encounter This section includes the Chemistry and Hematology Lab Results on record with CT for the patient. Radiology Reports and Pathology Reports are provided separately, in subsequent sections. Lab Results This section contains the Chemistry/Hematology Results that were resulted 30 days before or 30 daysafter the date of the Encounter. Date/Time Source Result Type Result - Unit Interpretation Reference Range Specimen Type Comment May 08, 2024 08:[address] [facility] MICROALBUMIN CREATININE RATIO PANEL URINE Spe cimen Type: URINE No comment entered. Ordering Provider: NNEKA RAMOS Report Released Date/Time: Nov 12, 2023 03:09 PM Reporting Lab: [place] [facility]TR [facility] [place] [address] [address] Performing Lab: [place] CNTR [place] [address] [address] MICROALBUMIN/CREATININE RATIO 116.9 mg/g H 0-29.9 MICROALBUMIN,QUANTITATIVE 11.6 mg/dL RR UNAVAIL CREATININE URINE 99.23 mg/dL May 07, 2024 10:37 AM [facility] [place] [facility] PO4 SERUM Specimen Type: SERUM No comment entered. Ordering Provider: MELANIA RAMOS Report Released Date/Time: Nov 12, 2023 03:09 PM Reporting Lab: [facility] [address] [facility] [address] Performing Lab: [facility] [address] PO4 2.4 mg/dL L 2.5-5.0 May 07, 2024 10:37 AM [facility] PTH INTACT SERUM Specimen Type: SERUM No comment entered. Ordering Provider: MELANIA RAMOS Report Released Date/Time: Nov 12, 2023 03:09 PM Reporting Lab: [facility] [address] [facility] [address] Performing Lab: [address] [address] PTH INTACT 99.2 pg/mL H 10-65 May 07, 2024 10:37 AM [facility] VITAMIN D (25-OH) SERUM Specimen Type: SERUM No comment entered. Ordering Provider: MELANIA RAMOS Report Released Date/Time: Nov 12, 2023 03:09 PM Reporting Lab: [facility] [address] [facility] [address] Performing Lab: [facility] [address] VITAMIN D (25-OH) 30 ng/mL 20-50 May 07, 2024 10:37 AM [facility] MAGNESIUM SERUM Specimen Type: SERUM No comment entered. Ordering Provider: MELANIA RAMOS Report Released Date/Time: Nov 12, 2023 03:09 PM Reporting Lab: [facility] [address] Performing Lab: [facility] [address] MAGNESIUM 1.8 mg/dL 1.6-2.6 May 07, 2024 10:37 AM [facility] ALBUMIN SERUM Specimen Type: SERUM No comment entered. Ordering Provider: MELANIA RAMOS Report Released Date/Time: Nov 12, 2023 03:09 PM Reporting Lab: [facility] [address] [facility] [address] Performing Lab: [address] [address] ALBUMIN 3.8 g/dL 3.5-5.0 May 07, 2024 10:37 AM [facility] ALKALINE PHOSPHATASE SERUM Specimen Type: SER UM No comment entered. Ordering Provider: MELANIA RAMOS Report Released Date/Time: Nov 12, 2023 03:09 PM Reporting Lab: [address] [address] Performing Lab: [address] [address] ALKALINE PHOSPHATASE 72 U/L 40-150 May 07, 2024 10:37 AM [facility] CALCIUM SERUM Specimen Type: SERUM No comment entered. Ordering Provider: MELANIA RAMOS Report Released Date/Time: Nov 12, 2023 03:09 PM Reporting Lab: [address] [address] Performing Lab: [address] [address] CALCIUM 9.0 mg/dL 8.5-10.2 May 07, 2024 10:37 AM [facility] BASIC METABOLIC PANEL (non-fasting) SERUM Spe cimen Type: SERUM No comment entered. Ordering Provider: MELANIA RAMOS Report Released Date/Time: Nov 12, 2023 03:09 PM Reporting Lab: [address] [address] Performing Lab: [address] [address] UREA NITROGEN 20 mg/dL 7-25 GLUCOSE 168 mg/dL H 65-100 SODIUM 138 mmol/L 135-145 POTASSIUM 4.1 mmol/L 3.5-5.0 CHLORIDE 109 mmol/L 100-110 CO2 22 meq/L 20-30 CREATININE, Serum 1.38 mg/dL 0.50-1.40 eGFR(CKD-EPI 2020) 54 mL/min L >60 May 07, 2024 10:37 AM [facility] FERRITIN SERUM Specimen Type: SERUM No comment entered. Ordering Provider: MELANIA RAMOS Report Released Date/Time: Nov 12, 2023 03:09 PM Reporting Lab: [facility] [address] Performing Lab: [facility] [address] FERRITIN 157 ng/mL 20-300 May 07, 2024 10:37 AM [facility] IRON & TIBC PANEL SERUM Specimen Type: SERUM No comment entered. Ordering Provider: MELANIA RAMOS Report Released Date/Time: Nov 12, 2023 03:09 PM Reporting Lab: [facility] [address] Performing Lab: [facility] [address] TIBC 267 ug/dL 204-475 IRON 64 ug/dL 40-160 Transferrin Saturation 24.0 20.0-50.0 May 07, 2024 10:37 AM [facility] CBC BLOOD Specimen Type: BLOOD No comment entered. Ordering Provider: MELANIA RAMOS Report Released Date/Time: Nov 12, 2023 03:09 PM Reporting Lab: [facility] [address] Performing Lab: [facility] [address] WBC 6.55 10*3/uL 4.50-11.00 RBC 4.65 10*6/uL [...] 76 113/69 16 96 0 244 37 [facility] Social History: Smoking Status (Most current) and Tobacco Use (All prior to encounter date) This section includes the most current, and the historical, smoking and tobacco- related health factors from the CT facility where the Encounter took place. Current Smoking Status This section includes the most current smoking, or tobacco-related health factor, from the CT facility where the Encounter took place. Date/Time Current Smoking Status Comment Facil ity Jul 09, 2023 03:03 PM VA-TOBACCO FORMER USER [facility] Tobacco Use History This section includes a history of the smoking, or tobacco-related health factors, that were collected on or before the date of the Encounter. The data comes from the [place] facility where the Encounter took place. Date/Time Smoking Status/Tobacco Use Comment F acility Jul 09, 2023 03:03 PM VA-TOBACCO QUIT 15 YRS OR MORE [facility] Jul 05, 2022 01:51 PM VA-TOBACCO NEVER USED [facility] May 11, 2021 01:18 PM VA-TOBACCO NEVER USED [facility] Encounter Notes: All associated encounter notes [...] His diabetes is being managed but his upsetter setter up. #4. Hyperlipidemia: The patient's lipid studies this [...] of active outpatient prescriptions dispensed from this CT (local) and dispensed from another CT or DoD facility (remote) as well as [...] or non-VA provider. /jamal/ MELANIA RAMOS M.D. CONCENTRATOR OPERATOR ASSEMBLIES AND INSTALLATIONS INSPECTOR Signed: 05/12/2024 15:[address] [facility]
--- OUTSIDE RECORDS SUMMARY | 2024-12-30 10:03 | XMS_ITS | Continuity of Care Document ---
Author Name [facility] Organization [facility] Care Team Providers Care Bilingual Case Manager Name Role Phone [facility] Unavailable Unavailable Problems Combined list of problems from Department of Defense and Veterans Affairs facilities. It does not include entries that were removed or entered in error. Problem Status Onset Date Problem Type Date of Resolution Comments Source MRSA SKIN INFECTION Active 04/26/20 09 Condition [place] Allergy to peanuts Active Condition [facility] CAD - Coronary Artery Disease (SCT 75175548) Active Condition [place] Cataract, Cortical (Senile) Active Condition [facility] Cataract, PSC/Post Subcapsular Active Condition [facility] [place] [facility] Cerebellar stroke syndrome Active Condition May 30, 2020 Entered By: AMBIKA KNIGHT Comment: 03/2020 d/c summary scanned into [facility] [place] Cervical Radiculopathy Active Condition Sep 23, 2006 [facility] [facility] Claudication (SNOMED CT 277379270) Active Condition [place] Cocaine abuse, continuous use Active Condition [facility] Colorectal Cancer Screening Results Documented and Reviewed (PV) Active Condition May 23, 2011 Entered By: AMBIKA KNIGHT Comment: colonoscopy 04/26 tics in sigmoid, '15 dr galloway +polyps [place] Computed tomography result abnormal Active Condition February 09, 2018 Entered By: AMBIKA KNIGHT Comment: ct angiogram 3/31/18 negative for PE. R lung nodules. scanned into [facility] Corneal Abrasion (ICD-9-CM 918.1) Active Condition [facility] Coronary artery disease, s/p MS Active Condition [facility] Cyst, ganglion Active Condition [facility] Depressive disorder Active Condition [facility] Depressive Disorder NOS Active Condition [facility] Diabetes mellitus type 2 Active Condition [facility] DM Active Condition [facility] Elevated Prostate Specific antigen [psa] Active Condition Feb 17, 2013 Entered By: AMBIKA KNIGHT Comment: prostate biopsy negative 01/26 [place] Erectile dysfunction Active Condition [facility] GERD * (ICD-9-CM 530.81) Active Condition [place] HTN Active Condition [facility] hyperlipidemia Active Condition [facility] Hyperlipidemia (SNOMED CT 07609338) Active Condition [facility] Hypertension (SNOMED CT 82669380) Active Condition [facility] 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 Low Back Pain * (ICD-9-CM 724.2) Active Condition [facility] Obesity Active Condition [facility] Osteoarthritis Active Condition [facility] Peripheral neuropathy due to type 2 diabetes mellitus Active Condition [facility] Postsurgical Percutaneous Transluminal Coronary Angioplasty Status Active Condition May 09 010 Entered By: AMBIKA KNIGHT Comment: rca bare metal stent 04/25.LVgram hypokinesis/ak inesis inferoAug 2009 Entered By: AMBIKA KNIGHT Comment: lateral region ef 50%. pharm. myocardial scan negative forOct 2012 Entered By: AMBIKA KNIGHT Comment: significant ischemia 06/28 [place] Postsurgical Status of Cataract Extraction Active Condition Oct 14, 2009 Entered By: AMBIKA KNIGHT Comment: right 09/25 [place] Proliferative retinopathy due to type 2 diabetes mellitus Active Condition [facility] [place] [facility] Shoulder Pain Active Condition [facility] Simple upper Gastrointestinal Endoscopy Active Condition May 23, 2011 Entered By: AMBIKA KNIGHT Comment: 04/26 inflammation duodenum/ge junction c/w gerd [place] UTI Active Condition [facility] Diagnosis: ICD-10-CM E11.22 Type 2 diabetes mellitus w diabetic chronic kidney disease Active Diagnosis [facility] [place] [facility] Diagnosis: ICD-10-CM Z46.0 Encounter for fit/adjst of spectacles and contact lenses Active Diagnosis [facility] Diagnosis: ICD-10-CM E11.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, r eye Active Diagnosis [facility] Diagnosis: ICD-10-CM E78.5 Hyperlipidemia, unspecified Active Diagnosis [place] Diagnosis: ICD-10-CM Z02.89 Encounter for other administrative examinations Active Diagnosis [facility] Diagnosis: ICD-10-CM Z00.8 Encounter for other general examination Active Diagnosis [place] Diagnosis: ICD-10-CM E11.9 Type 2 diabetes mellitus without complications Active Diagnosis [place] Diagnosis: ICD-10-CM H90.A21 Snsrnrl hear loss, uni, r ear, with rstrcd hear cntra side Active Diagnosis [facility] Diagnosis: ICD-10-CM H69.93 Unspecified Eustachian tube disorder, bilateral Active Diagnosis [place] Medications Combined list of outpatient medications from [...] DAY TOPICA L ACTIVE STALLINGS,AL ICE 2020 [facility] [place] [facility] APIXABAN 5MG TAB TAKE ONE TABLET BY MOUTH ONCE DAILY ORAL ACTIVE STALLINGS,AL ICE 2020 [facility] [place] [facility] ASPIRIN 81MG TAB,EC TAKE ONE TABLET BY MOUTH DAILY ORAL ACTIVE STALLINGS,AL ICE 2016 [facility] CARBOXYMETH YLCELLULOSE NA 0.5% SOLN,OPH INSTILL 1 DROP INTO EACH EYE FOUR TIMES A DAY FOR DRY EYE OPHTHA LMIC ACTIVE 06/26/2025 [id number] ANDRIA ALEGRIA 2023 15 [facility] CHOLECALCIF THALIA 25MCG (1,000UNIT) TAB TAKE ONE TABLET BY MOUTH ONCE DAILY ORAL ACTIVE STALLINGS,AL ICE 2022 [facility] EMPAGLIFLOZ IN 25MG TAB TAKE ONE TABLET BY MOUTH ONCE DAILY ORAL ACTIVE STALLINGS,AL ICE 2022 [facility] FERROUS GLUCONATE 324MG TAB TAKE ONE TABLET BY MOUTH THREE TIMES A WEEK ORAL ACTIVE SHAW GARCIA [place] FINASTERIDE 5MG TAB TAKE ONE TABLET BY MOUTH ONCE DAILY ORAL ACTIVE BRONWYN KNIGHT 2021 [facility] GABAPENTIN 100MG CAP TAKE 1 CAPSULE BY MOUTH THREE TIMES A DAY NEEDED ORAL ACTIVE SHAW [place]ARC[place] GLUCAGON 1MG/EJY INJ,EMERGEN CY KIT INJECT 1 INJECTIO N INTRAMUS CULARLY ONE TIME NEEDED INTRAM USCULA R ACTIVE 01/17/2025 [id number] STALLINGS,AL ICE 2024 1 [facility] [place] [facility] [facility] GLUCAGON 1MG/JEY INJ,EMERGEN CY KIT INJECT 1 INJECTIO N INTRAMUS CULARLY ONE TIME NEEDED FOR LOW BLOOD SUGAR INTRAM USCULA R 07/18/2024 [id number] 4 STALLINGS,AL ICE 2023 1 [facility] [place] GLUCAGON 1MG/JEY INJ,EMERGEN CY KIT INJECT 1 INJECTIO N INTRAMUS CULARLY ONE TIME NEEDED FOR LOW BLOOD SUGAR INTRAM USCULA R 03/07/2024 [id number] 4 STALLINGS,AL ICE 2023 1 [facility] [place] HYDROCODONE 5MG/ACETAMI NOPHEN 325MG TAB TAKE ONE TABLET BY MOUTH TWICE DAILY NEEDED ORAL ACTIVE SHAW GARCIA 2023 [place] INSULIN,ASP ART,HUMAN (EQV-NOVOLO G) 100 UNIT/ML,FLE XPEN,3ML INJECT 25 UNITS SUBCUTAN EOUSLY THREE TIMES A DAY INJECT 15 MINUTES PRIOR TO MEALS SUBCUT ANEOUS ACTIVE 07/10/2025 [id number] 5 Dm MATTHEW 2023 20 [place] INSULIN,ASP ART,HUMAN (EQV-NOVOLO G) 100 UNIT/ML,FLE XPEN,3ML INJECT 30 UNITS SUBCUTAN EOUSLY EVERY MORNING AND INJECT 27 UNITS AT NOON AND INJECT 26 UNITS EVERY EVENING FOR DIABETES SUBCUT ANEOUS DISCONT INUED BY PROVIDE R 02/06/2025 [id number] STALLINGS,AL ICE 2023 25 [facility] [place] INSULIN,ASP ART,HUMAN (EQV-NOVOLO G) 100 UNIT/ML,FLE XPEN,3ML INJECT 30 UNITS SUBCUTAN EOUSLY THREE TIMES A DAY FOR DIABETES SUBCUT ANEOUS DISCONT INUED 11/07/2024 [id number] 4 STALLINGS,AL ICE 2023 30 [facility] INSULIN,GLA RGINE,HUMAN 100 UNIT/ML INJ,SOLOSTA R,3ML INJECT 35 UNITS SUBCUTAN EOUSLY TWICE DAILY FOR DIABETES SUBCUT ANEOUS ACTIVE 10/29/2025 [id number] 5 Dm MATTHEW 2024 15 [facility] INSULIN,GLA RGINE-YFGN 100UNIT/ML INJ PEN,3ML INJECT 40 UNITS SUBCUTAN EOUSLY TWICE DAILY FOR DIABETES SUBCUT ANEOUS DISCONT INUED BY PROVIDE R 02/06/2025 [id number] 4 STALLINGS,AL ICE 2023 25 [facility] [place] INSULIN,GLA RGINE-YFGN 100UNIT/ML INJ PEN,3ML INJECT 44 UNITS SUBCUTAN EOUSLY TWICE DAILY FOR DIABETES SUBCUT ANEOUS DISCONT INUED (EDIT) 12/23/2024 [id number] 4 STALLINGS,AL ICE 2023 30 [facility] INSULIN,GLA RGINE-YFGN 100UNIT/ML INJ PEN,3ML INJECT 44 UNITS SUBCUTAN EOUSLY TWICE DAILY FOR DIABETES (SAME LANTUS) SUBCUT ANEOUS DISCONT INUED BY PROVIDE R 11/07/2024 [id number] 4 STALLINGS,AL ICE 2023 30 [facility] [place] METOPROLOL TARTRATE 25MG TAB TAKE ONE-HALF TABLET BY MOUTH TWICE DAILY ORAL ACTIVE STALLINGS,AL ICE 2022 [facility] [place] MIDODRINE HCL 10MG TAB TAKE ONE TABLET BY MOUTH TWICE DAILY ORAL ACTIVE BRONWYN KNIGHT 2020 [facility] PANTOPRAZOL E NA 40MG TAB,EC TAKE ONE TABLET BY MOUTH EVERY MORNING 30 MINUTES BEFORE BREAKFAS T ORAL ACTIVE STALLINGS,AL ICE 2019 [facility] PANTOPRAZOL E NA 40MG TAB,EC TAKE ONE TABLET BY MOUTH EVERY MORNING 30 MINUTES BEFORE BREAKFAS T ORAL ACTIVE STALLINGS,AL ICE 2020 [facility] [place] ROSUVASTATI N CA 40MG TAB TAKE ONE TABLET BY MOUTH ONCE DAILY ORAL ACTIVE SHAW GARCIA 2023 [facility] TADALAFIL 5MG TAB TAKE ONE TABLET BY MOUTH ONCE DAILY ORAL ACTIVE SHAW GARCIA 2023 [facility] TERAZOSIN HCL CAP,ORAL TAKE BY MOUTH ONCE DAILY ORAL ACTIVE SHAW GARCIA 2023 [place] VITAMIN B COMPLEX CAP,ORAL TAKE BY MOUTH ON SATURDAY ORAL ACTIVE BRONWYN KNIGHT 2020 [place] Allergies, Adverse Reactions, Alerts Combined list of allergies from Department of Defense and Veterans Affairs facilities. It does not include entries that were removed or entered in error. Substance Category Reaction Severity Reaction type Status Date Reported Comments Source GABAPENTIN Propensity to adverse reactions to drug (finding) Dizziness active 4 [facility] [place] Propensity to adverse reactions to substance (finding) Airway constrictio n active 4 [facility] Immunizations Combined list of available immunizations from the Department of Defense and Veterans Affairs facilities. 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 Tierce Filler Status Comments Source INFLUENZA, UNSPECIFIED FORMULATION 2022 88 complet ed HISTORICA L INFORMATI ON - FROM PATIENT'S RECALL, [facility] TDAP 2021 115 complet ed [facility] INFLUENZA, UNSPECIFIED FORMULATION 2021 88 complet ed [facility] COVID-19 (MODERNA), MRNA, LNP-S, PF, 100 MCG OR 50 MCG DOSE 3 2020 207 complet ed [facility] INFLUENZA, UNSPECIFIED FORMULATION 2020 88 complet ed [facility] PNEUMOCOCCAL POLYSACCHARID E PPV23 2020 33 complet ed [facility] COVID-19 (MODERNA), MRNA, LNP-S, PF, 100 MCG/0.5 ML DOSE 2 2020 207 complet ed MOD; [id number]; [place] COVID-19 (MODERNA), MRNA, LNP-S, PF, 100 MCG/0.5 ML DOSE 1 2020 207 complet ed MOD; [id number]; 1 [place] INFLUENZA, SEASONAL, INJECTABLE 2018 141 complet ed [facility] [place] [facility] PNEUMOCOCCAL CONJUGATE PCV 13 2018 133 complet ed [place] INFLUENZA, SEASONAL, INJECTABLE [address] Reinoso [facility] ZOSTER RECOMBINANT 2 2017 187 [...] YRS (HISTORICAL) 2009 88 complet ed [facility] NOVEL INFLUENZA-H1N 1-09, ALL FORMULATIONS 2009 128 [...] ed [place] FLU,3 YRS (HISTORICAL) 2000 WINIFRED MENJIVAR 88 complet ed [place] FLU VACCINE (HISTORICAL) 1999 88 complet ed [facility] PNEUMOCOCCAL, UNSPECIFIED FORMULATION 1996 EPHRAIM NINA AM 109 complet ed [facility] Results Combined list of recent chemistry, hematology and other laboratory results from Department of Defense and Veterans Affairs, ranging from 15 months to all on record, depending upon the facility. Order Name Results Value Reference Range Date Interpretation Specimen Comments Source FERRITIN FERRITIN [MASS/VOLU ME] IN SERUM OR PLASMA 110 ng/mL 20 - 300 11/04 Specimen Type: SERUM No comment entered. Ordering Provider: JESSICA RAMOS Report Released Date/Time: May 12, 2024 03:50 PM Reporting Lab: [facility] [place] [facility] [address] [facility] [address] Performing Lab: [facility] [place] [facility] [address] [facility] [address] [place] [facility] [facility] IRON & TIBC PANEL IRON BINDING CAPACITY [MASS/VOLU ME] IN SERUM OR PLASMA 305 ug/dL 204 - 475 11/04 Specimen Type: SERUM No comment entered. Ordering Provider: JESSICA RAMOS Report Released Date/Time: May 12, 2024 03:50 PM Reporting Lab: [facility] [place] [facility] [address] [facility] [address] Performing Lab: [facility] [place] [facility] [address] [facility] [address] [facility] [place] [facility] IRON & TIBC PANEL IRON [MASS/VOLU ME] IN SERUM OR PLASMA 93 ug/dL 40 - 160 11/04 Specimen Type: SERUM No comment entered. Ordering Provider: JESSICA RAMOS Report Released Date/Time: May 12, 2024 03:50 PM Reporting Lab: [facility] [place] [facility] [address] [facility] [address] Performing Lab: [facility] [place] [facility] [address] [facility] [address] [place] [facility] [place] [facility] IRON & TIBC PANEL IRON/IRON BINDING CAPACITY.T OTAL [MASS RATIO] IN SERUM OR PLASMA 30.5 20.0 - 50.0 11/04 Specimen Type: SERUM No comment entered. Ordering Provider: JESSICA RAMOS Report Released Date/Time: May 12, 2024 03:50 PM Reporting Lab: [facility] [place] [facility] [address] [facility] [address] Performing Lab: [facility] [place] [facility] [address] [facility] [address] [facility] [place] [facility] IRON & TIBC PANEL TRANSFERRI N [MASS/VOLU ME] IN SERUM OR PLASMA 231 mg/dL 200 - 360 11/04 Specimen Type: SERUM No comment entered. Ordering Provider: JESSICA RAMOS Report Released Date/Time: May 12, 2024 03:50 PM Reporting Lab: [facility] [place] [facility] [address] [facility] [address] Performing Lab: [facility] [place] [facility] [address] [facility] [address] [facility] [place] [facility] MICROALB UMIN CREATINI NE RATIO PANEL MICROALBUM IN/CREATIN INE [MASS RATIO] IN URINE 259.0 mg/g 0 - 29.9 11/04 H Specimen Type: URINE No comment entered. Ordering Provider: JESSICA RAMOS Report Released Date/Time: May 12, 2024 03:50 PM Reporting Lab: [facility] [place] [facility] [address] [facility] [address] Performing Lab: [facility] [place] [facility] [address] [facility] [address] [facility] [place] [facility] MICROALB UMIN CREATINI NE RATIO PANEL MICROALBUM IN [MASS/VOLU ME] IN URINE 14.5 mg/dL 11/04 Specimen Type: URINE No comment entered. Ordering Provider: JESSICA RAMOS Report Released Date/Time: May 12, 2024 03:50 PM Reporting Lab: [facility] [place] [facility] [address] [facility] [address] Performing Lab: [facility] [place] [address] [address] [facility] MICROALB UMIN CREATINI NE RATIO PANEL CREATININE [MASS/VOLU ME] IN URINE 55.99 mg/dL 11/04 Specimen Type: URINE No comment entered. Ordering Provider: JESSICA RAMOS Report Released Date/Time: May 12, 2024 03:50 PM Reporting Lab: [facility] BIRMINGHAMTRN [facility] [address] Performing Lab: [facility] [place] [address] [address] [facility] W[facility]N [facility]ITALUSE [facility] LIPID PANEL, NON FASTING CHOLESTERO L [MASS/VOLU ME] IN SERUM OR PLASMA 136 mg/dL 11/04 Specimen Type: SERUM No comment entered. Ordering Provider: JESSICA RAMOS Report Released Date/Time: May 12, 2024 03:50 PM Reporting Lab: [facility]RNOL[facility] BIRMINGHAMTRN [facility] [address] Performing Lab: [facility]ITALRL TRN [facility]ITALUSETS [address] [address] [facility]ITALRNOL[facility] BIRMINGHAMTRN [facility]PITALUSE [facility] LIPID PANEL, NON FASTING TRIGLYCERI DE [MASS/VOLU ME] IN SERUM OR PLASMA 75 mg/dL 0 - 150 11/04 Specimen Type: SERUM No comment entered. Ordering Provider: JESSICA RAMOS Report Released Date/Time: May 12, 2024 03:50 PM Reporting Lab: [facility]N [place] [address] [address] Performing Lab: [facility] [place] [address] [address] [facility] TRN [place] [facility] LIPID PANEL, NON FASTING CHOLESTERO L IN LDL [MASS/VOLU ME] IN SERUM OR PLASMA BY CALCULALASHELLO N 82 mg/dL 0 - 129 11/04 Specimen Type: SERUM No comment entered. Ordering Provider: JESSICA RAMOS Report Released Date/Time: May 12, 2024 03:50 PM Reporting Lab: [facility]RL W[facility]N [facility] [address] Performing Lab: [facility]ITALRL TRN [facility]USEEDGE[facility] [address] [facility] [address] [facility]ITALRL [facility]ERN [facility]ITALUSE [facility] LIPID PANEL, NON FASTING CHOLESTERO L.TOTAL/CH OLESTEROL IN HDL [MASS RATIO] IN SERUM OR PLASMA 3.5 11/04 Specimen Type: SERUM No comment entered. Ordering Provider: JESSICA RAMOS Report Released Date/Time: May 12, 2024 03:50 PM Reporting Lab: [facility]ITALRL TRN [facility]ITALUSEEDGE[facility] [address] [facility] [address] Performing Lab: [facility]ITALRL [facility] CENTERN [address] [address] [facility] LIPID PANEL, NON FASTING CHOLESTERO L IN HDL [MASS/VOLU ME] IN SERUM OR PLASMA 39 mg/dL 40 - 60 11/04 L Specimen Type: SERUM No comment entered. Ordering Provider: JESSICA RAMOS Report Released Date/Time: May 12, 2024 03:50 PM Reporting Lab: [facility]ITALRL [facility]ERN [address] [address] Performing Lab: [facility]OSPITALRL TRN [address] [address] [facility]OSPITALRUNIVERSITY OF S[facility] WOM[facility]'S H[facility]ITALN [facility] BASIC METABOLI C PANEL (non-fas ting) UREA NITROGEN [MASS/VOLU ME] IN SERUM OR PLASMA 23 mg/dL 7 - 25 11/04 Specimen Type: SERUM No comment entered. Ordering Provider: JESSICA RAMOS Report Released Date/Time: May 12, 2024 03:50 PM Reporting Lab: [facility]ITALRL TRN [facility]USE[address] [address] Performing Lab: [facility]ITALRL TRN [facility]USE[address] [address] [facility]OSPITALRUNIVERSITY OF S[facility] WOM[facility]'S HOSPITALN [facility] BASIC METABOLI C PANEL (non-fas ting) GLUCOSE [MASS/VOLU ME] IN SERUM OR PLASMA 65 mg/dL 65 - 100 11/04 Specimen Type: SERUM No comment entered. Ordering Provider: JESSICA RAMOS Report Released Date/Time: May 12, 2024 03:50 PM Reporting Lab: [facility] [place] [facility] [address] [facility] [address] Performing Lab: [facility] [place] [facility] [address] [facility] [address] [facility] [place] [facility] BASIC METABOLI C PANEL (non-fas ting) SODIUM [MOLES/VOL UME] IN SERUM OR PLASMA 138 mmol/L 135 - 145 11/04 Specimen Type: SERUM No comment entered. Ordering Provider: JESSICA RAMOS Report Released Date/Time: May 12, 2024 03:50 PM Reporting Lab: [facility] [place] [facility] [address] [facility] [address] Performing Lab: [facility] [place] [facility] [address] [facility] [address] [facility] [place] [facility] BASIC METABOLI C PANEL (non-fas ting) POTASSIUM [MOLES/VOL UME] IN SERUM OR PLASMA 4.3 mmol/L 3.5 - 5.0 11/04 Specimen Type: SERUM No comment entered. Ordering Provider: JESSICA RAMOS Report Released Date/Time: May 12, 2024 03:50 PM Reporting Lab: [facility] [place] [facility] [address] [facility] [address] Performing Lab: [facility] [place] [address] [address] [facility] [place] [facility] BASIC METABOLI C PANEL (non-fas ting) CHLORIDE [MOLES/VOL UME] IN SERUM OR PLASMA 108 mmol/L 100 - 110 11/04 Specimen Type: SERUM No comment entered. Ordering Provider: JESSICA RAMOS Report Released Date/Time: May 12, 2024 03:50 PM Reporting Lab: [facility] [place] [facility] [address] [facility] [address] Performing Lab: [facility] [place] [address] [address] [facility] [place] [facility] BASIC METABOLI C PANEL (non-fas ting) CARBON DIOXIDE, TOTAL [MOLES/VOL UME] IN SERUM OR PLASMA 22 meq/L 20 - 30 11/04 Specimen Type: SERUM No comment entered. Ordering Provider: JESSICA RAMOS Report Released Date/Time: May 12, 2024 03:50 PM Reporting Lab: [facility]PITALRUNIVERSITY OF [facility] WOMEN'S HOSPITALN [address] [address] Performing Lab: [facility]OSPITALRNOLAND HOSPITAL BIRMINGHAMTRN [address] [address] [facility] BASIC METABOLI C PANEL (non-fas ting) CALCIUM [MASS/VOLU ME] IN SERUM OR PLASMA 9.2 mg/dL 8.5 - 10.2 11/04 Specimen Type: SERUM No comment entered. Ordering Provider: JESSICA RAMOS Report Released Date/Time: May 12, 2024 03:50 PM Reporting Lab: [facility]PITALRUNIVERSITY [facility] WOM[facility]'S HOSPITALN [address] [address] Performing Lab: [facility] HOSPITALRL TRN [address] [address] [facility] BASIC METABOLI C PANEL (non-fas ting) CREATININE [MASS/VOLU ME] IN SERUM OR PLASMA 1.42 mg/dL 0.50 - 1.40 11/04 H Specimen Type: SERUM No comment entered. Ordering Provider: JESSICA RAMOS Report Released Date/Time: May 12, 2024 03:50 PM Reporting Lab: [facility]N [facility]USE[address] [address] Performing Lab: [facility] TRN [address] [address] [facility]RUN[facility] BASIC METABOLI C PANEL (non-fas ting) GLOMERULAR FILTRATION RATE/1.73 SQ M.PREDICTE D [VOLUME RATE/AREA] IN SERUM, PLASMA OR BLOOD BY CREATININE -BASED FORMULA (CKD-EPI 2020) 52 mL/min 60 11/04 L Specimen Type: SERUM No comment entered. Ordering Provider: JESSICA RAMOS Report Released Date/Time: May 12, 2024 03:50 PM Reporting Lab: [facility] [address] [facility] [address] Performing Lab: [facility] [address] [facility] [address] [facility] CBC LEUKOCYTES [#/VOLUME] IN BLOOD BY AUTOMATED COUNT 7.93 10*3/uL 4.50 - 11.00 11/04 Specimen Type: BLOOD No comment entered. Ordering Provider: JESSICA RAMOS Report Released Date/Time: May 12, 2024 03:50 PM Reporting Lab: [facility] [address] [facility] [address] Performing Lab: [facility] [address] [facility] [address] [facility] CBC ERYTHROCYT ES [#/VOLUME] IN BLOOD BY AUTOMATED COUNT 5.07 10*6/uL 4.23 - 5.66 11/04 Specimen Type: BLOOD No comment entered. Ordering Provider: JESSICA RAMOS Report Released Date/Time: May 12, 2024 03:50 PM Reporting Lab: [facility] [address] [facility] [address] Performing Lab: [facility] [address] [facility] [address] [facility] CBC HEMOGLOBIN [MASS/VOLU ME] IN BLOOD 14.8 g/dL 12.8 - 17 11/04 Specimen Type: BLOOD No comment entered. Ordering Provider: JESSICA RAMOS Report Released Date/Time: May 12, 2024 03:50 PM Reporting Lab: [facility] [address] [facility] [address] Performing Lab: [facility] [address] [facility] [address] [facility] CBC HEMATOCRIT [VOLUME FRACTION] OF BLOOD BY AUTOMATED COUNT 43.4 39.2 - 50.4 11/04 Specimen Type: BLOOD No comment entered. Ordering Provider: JESSICA RAMOS Report Released Date/Time: May 12, 2024 03:50 PM Reporting Lab: [facility] [address] [facility] [address] Performing Lab: [facility] [address] [facility] [address] [facility] CBC MCV [ENTITIC VOLUME] BY AUTOMATED COUNT 85.6 fL 82 - 99 11/04 Specimen Type: BLOOD No comment entered. Ordering Provider: JESSICA RAMOS Report Released Date/Time: May 12, 2024 03:50 PM Reporting Lab: [facility] [place] [facility] [address] [facility] [address] Performing Lab: [facility] [place] [facility] [address] [facility] [address] [facility] CBC MCHC [MASS/VOLU ME] BY AUTOMATED COUNT 34.1 g/dL 30.8 - 35.1 11/04 Specimen Type: BLOOD No comment entered. Ordering Provider: JESSICA RAMOS Report Released Date/Time: May 12, 2024 03:50 PM Reporting Lab: [facility] [place] [facility] [address] [facility] [address] Performing Lab: [facility] [place] [facility] [address] [facility] [address] [facility] CBC PLATELETS [#/VOLUME] IN BLOOD BY AUTOMATED COUNT 245 10*3/uL 140 - 360 11/04 Specimen Type: BLOOD No comment entered. Ordering Provider: JESSICA RAMOS Report Released Date/Time: May 12, 2024 03:50 PM Reporting Lab: [facility] [place] [facility] [address] [facility] [address] Performing Lab: [facility] [place] [facility] [address] [facility] [address] [facility] CBC ERYTHROCYT E DISTRIBUTI ON WIDTH [RATIO] BY AUTOMATED COUNT 12.9 12.0 - 16.0 11/04 Specimen Type: BLOOD No comment entered. Ordering Provider: JESSICA RAMOS Report Released Date/Time: May 12, 2024 03:50 PM Reporting Lab: [facility] [place] [facility] [address] [facility] [address] Performing Lab: [facility] [place] [facility] [address] [facility] [address] [facility] CBC MCH [ENTITIC MASS] BY AUTOMATED COUNT 29.2 pg 26.2 - 32.6 11/04 Specimen Type: BLOOD No comment entered. Ordering Provider: JESSICA RAMOS Report Released Date/Time: May 12, 2024 03:50 PM Reporting Lab: [facility] [address] [address] Performing Lab: [facility] [address] [address] [facility] LIPID PANEL FASTING CHOLESTERO L [MASS/VOLU ME] IN SERUM OR PLASMA 132 mg/dL 07/07 Specimen Type: SERUM No comment entered. Ordering Provider: CHINO KNIGHT Report Released Date/Time: Jul 09, 2023 03:20 PM Reporting Lab: [facility] [place] [facility] [address] [facility] [address] Performing Lab: [place] [facility]ITAL[facility] [address] [place] LIPID PANEL FASTING TRIGLYCERI DE [MASS/VOLU ME] IN SERUM OR PLASMA 110 mg/dL 0 - 150 07/07 Specimen Type: SERUM No comment entered. Ordering Provider: CHINO KNIGHT IE Report Released Date/Time: Jul 09, 2023 03:20 PM Reporting Lab: [facility] [place] [facility] [address] [facility] [address] Performing Lab: [place] [facility] [address] [address] [place] LIPID PANEL FASTING CHOLESTERO L IN LDL [MASS/VOLU ME] IN SERUM OR PLASMA BY CALCULATIO N 76 mg/dL 0 - 129 07/07 Specimen Type: SERUM No comment entered. Ordering Provider: CHINO KNIGHT IE Report Released Date/Time: Jul 09, 2023 03:20 PM Reporting Lab: [facility]ITALRL TRN [facility]USE[facility] [address] [facility] [address] Performing Lab: [facility]ITALRL TRN [facility] [address] [address] [place] LIPID PANEL FASTING CHOLESTERO L.TOTAL/CH OLESTEROL IN HDL [MASS RATIO] IN SERUM OR PLASMA 3.9 07/07 Specimen Type: SERUM No comment entered. Ordering Provider: CHINO KNIGHT IE Report Released Date/Time: Jul 09, 2023 03:20 PM Reporting Lab: [facility]ITALRL TRN [address] [address] Performing Lab: [facility]ITALRL [facility]ERN [address] [address] [place] LIPID PANEL FASTING CHOLESTERO L IN HDL [MASS/VOLU ME] IN SERUM OR PLASMA 34 mg/dL 40 - 60 07/07 L Specimen Type: SERUM No comment entered. Ordering Provider: CHINO KNIGHT IE Report Released Date/Time: Jul 09, 2023 03:20 PM Reporting Lab: [facility]ITALRL TRN [address] [address] Performing Lab: [facility]ITALRL [facility]ERN [facility]ITALUSE[address] [address] [place] LIVER FUNCTION PROTEIN [MASS/VOLU ME] IN SERUM OR PLASMA 7.5 g/dL 6.0 - 8.3 07/07 Specimen Type: SERUM No comment entered. Ordering Provider: CHINO KNIGHT IE Report Released Date/Time: Jul 09, 2023 03:20 PM Reporting Lab: [facility]ITALRL TRN [facility] [address] [address] Performing Lab: [facility]ITALRL TRN [facility] [address] [place] LIVER FUNCTION ALBUMIN [MASS/VOLU ME] IN SERUM OR PLASMA 4.2 g/dL 3.5 - 5.0 07/07 Specimen Type: SERUM No comment entered. Ordering Provider: CHINO KNIGHT IE Report Released Date/Time: Jul 09, 2023 03:20 PM Reporting Lab: [facility]OSPITALRNOLAND HOSPITAL BIRMINGHAMTRN [facility] [address] [facility] [address] Performing Lab: [facility] HOSPITALRUNIVERSITY OF S[facility] WOMEN'S HOSPITALN [facility]ITALUSEEDGE[facility] [address] [facility] [address] [place] LIVER FUNCTION ALKALINE PHOSPHATAS E [ENZYMATIC ACTIVITY/V OLUME] IN SERUM OR PLASMA 68 U/L 40 - 150 07/07 Specimen Type: SERUM No comment entered. Ordering Provider: CHINO KNIGHT IE Report Released Date/Time: Jul 09, 2023 03:20 PM Reporting Lab: [facility] HOSPITALRUNIVERSITY [facility] WOMEN'S HOSPITALN [address] [address] Performing Lab: [facility]OSPITALRUNIVERSITY [facility]'S HOSPITALN [address] [address] [place]IVER FUNCTION ASPARTATE AMINOTRANS FERASE [ENZYMATIC ACTIVITY/V OLUME] IN SERUM OR PLASMA 23 U/L 5 - 34 07/07 Specimen Type: SERUM No comment entered. Ordering Provider: CHINO KNIGHT IE Report Released Date/Time: Jul 09, 2023 03:20 PM Reporting Lab: [facility]OSPITALRUNIVERSITY [facility] WOM[facility]'S HOSPITALN [address] [address] Performing Lab: [facility]PITALRUNIVERSITY [facility] HOSPITALN [address] [address] [place]IVER FUNCTION ALANINE AMINOTRANS FERASE [ENZYMATIC ACTIVITY/V OLUME] IN SERUM OR PLASMA 29 U/L 07/07 Specimen Type: SERUM No comment entered. Ordering Provider: CHINO KNIGHT IE Report Released Date/Time: Jul 09, 2023 03:20 PM Reporting Lab: [facility]OSPITALRUNIVERSITY [facility] WOM[facility]'S HOSPITALN [address] [address] Performing Lab: [facility] [address] [address] [facility] L[facility] FUNCTION BILIRUBIN. TOTAL [MASS/VOLU ME] IN SERUM OR PLASMA 0.4 mg/dL 0.2 - 1.2 07/07 Specimen Type: SERUM No comment entered. Ordering Provider: CHINO KNIGHT IE Report Released Date/Time: Jul 09, 2023 03:20 PM Reporting Lab: [facility]PITALRUNIVERSITY [facility] WOMEN'S HOSPITALN [facility] [address] [facility] [address] Performing Lab: [facility]PITALRUNIVERSITY [facility] HOSPITALN [address] [address] [place] BASIC METABOLI C PANEL (fasting ) UREA NITROGEN [MASS/VOLU ME] IN SERUM OR PLASMA 24 mg/dL 7 - 25 07/07 Specimen Type: SERUM No comment entered. Ordering Provider: CHINO KNIGHT IE Report Released Date/Time: Jul 09, 2023 03:20 PM Reporting Lab: [facility]ERYN [address] [address] Performing Lab: [facility]N [address] [address] [place] BASIC METABOLI C PANEL (fasting ) GLUCOSE [MASS/VOLU ME] IN SERUM OR PLASMA 200 mg/dL 65 - 100 07/07 H Specimen Type: SERUM No comment entered. Ordering Provider: CHINO KNIGHT IE Report Released Date/Time: Jul 09, 2023 03:20 PM Reporting Lab: [address] [address] Performing Lab: [facility]PITALRUNIVERSITY [facility]ITALN [address] [address] [place] BASIC METABOLI C PANEL (fasting ) SODIUM [MOLES/VOL UME] IN SERUM OR PLASMA 137 mmol/L 135 - 145 07/07 Specimen Type: SERUM No comment entered. Ordering Provider: CHINO KNIGHT IE Report Released Date/Time: Jul 09, 2023 03:20 PM Reporting Lab: [facility]PITALRUNIVERSITY [facility] HOSPITALN [address] [address] Performing Lab: [facility]N [address] [address] [place] BASIC METABOLI C PANEL (fasting ) POTASSIUM [MOLES/VOL UME] IN SERUM OR PLASMA 4.9 mmol/L 3.5 - 5.0 07/07 Specimen Type: SERUM No comment entered. Ordering Provider: CHINO KNIGHT IE Report Released Date/Time: Jul 09, 2023 03:20 PM Reporting Lab: [facility]ERYN [facility] [address] [facility] [address] Performing Lab: [facility]N [address] [address] [place] BASIC METABOLI C PANEL (fasting ) CHLORIDE [MOLES/VOL UME] IN SERUM OR PLASMA 106 mmol/L 100 - 110 07/07 Specimen Type: SERUM No comment entered. Ordering Provider: CHINO KNIGHT IE Report Released Date/Time: Jul 09, 2023 03:20 PM Reporting Lab: [address] [address] Performing Lab: [address] [address] [place] BASIC METABOLI C PANEL (fasting ) CARBON DIOXIDE, TOTAL [MOLES/VOL UME] IN SERUM OR PLASMA 24 meq/L 20 - 30 07/07 Specimen Type: SERUM No comment entered. Ordering Provider: CHINO KNIGHT IE Report Released Date/Time: Jul 09, 2023 03:20 PM Reporting Lab: [address] [address] Performing Lab: [facility]N [address] [address] [place] BASIC METABOLI C PANEL (fasting ) CREATININE [MASS/VOLU ME] IN SERUM OR PLASMA 1.59 mg/dL 0.50 - 1.40 07/07 H Specimen Type: SERUM No comment entered. Ordering Provider: CHINO KNIGHT IE Report Released Date/Time: Jul 09, 2023 03:20 PM Reporting Lab: [facility]N [address] [address] Performing Lab: [facility]N [address] [address] [place] BASIC METABOLI C PANEL (fasting ) GLOMERULAR FILTRATION RATE/1.73 SQ M.PREDICTE D [VOLUME RATE/AREA] IN SERUM, PLASMA OR BLOOD BY CREATININE -BASED FORMULA (CKD-EPI 2020) 46 mL/min 60 07/07 L Specimen Type: SERUM No comment entered. Ordering Provider: CHINO KNIGHT Report Released Date/Time: Jul 09, 2023 03:20 PM Reporting Lab: [facility]N [facility] [address] [facility] [address] Performing Lab: [address] [address] [place] URINALYS IS COLOR OF URINE Light-Ye llow 07/07 Specimen Type: URINE Comment: If Glucose = >500 and Ketones are positive, please alert the Physician. Ordering Provider: CHINO KNIGHT Report Released Date/Time: Jul 09, 2023 03:20 PM Reporting Lab: [address] [address] Performing Lab: [address] [address] [place] URINALYS IS APPEARANCE OF URINE Clear 07/07 Specimen Type: URINE Comment: If Glucose = >500 and Ketones are positive, please alert the Physician. Ordering Provider: CHINO KNIGHT Report Released Date/Time: Jul 09, 2023 03:20 PM Reporting Lab: [address] [address] Performing Lab: [address] [address] [place] URINALYS IS GLUCOSE [MASS/VOLU ME] IN URINE >1000mg/ dL 07/07 Specimen Type: URINE Comment: If Glucose = >500 and Ketones are positive, please alert the Physician. Ordering Provider: CHINO KNIGHT Report Released Date/Time: Jul 09, 2023 03:20 PM Reporting Lab: [facility] [address] [address] Performing Lab: [facility]N [address] [address] [place] URINALYS IS KETONES [MASS/VOLU ME] IN URINE BY TEST STRIP NEGATIVE mg/dL 07/07 Specimen Type: URINE Comment: If Glucose = >500 and Ketones are positive, please alert the Physician. Ordering Provider: CHINO KNIGHT Report Released Date/Time: Jul 09, 2023 03:20 PM Reporting Lab: [facility]N [facility] [address] [facility] [address] Performing Lab: [address] [address] [place] URINALYS IS ERYTHROCYT ES [PRESENCE] IN URINE SEDIMENT BY LIGHT MICROSCOPY NEGATIVE mg/dL 07/07 Specimen Type: URINE Comment: If Glucose = >500 and Ketones are positive, please alert the Physician. Ordering Provider: CHINO KNIGHT Report Released Date/Time: Jul 09, 2023 03:20 PM Reporting Lab: [address] [address] Performing Lab: [address] [address] [place] URINALYS IS PROTEIN [MASS/VOLU ME] IN URINE BY TEST STRIP 20 mg/dL 07/07 Specimen Type: URINE Comment: If Glucose = >500 and Ketones are positive, please alert the Physician. Ordering Provider: CHINO KNIGHT Report Released Date/Time: Jul 09, 2023 03:20 PM Reporting Lab: [address] [address] Performing Lab: [address] [address] [place] URINALYS IS NITRITE [PRESENCE] IN URINE NEGATIVE mg/dL 07/07 Specimen Type: URINE Comment: If Glucose = >500 and Ketones are positive, please alert the Physician. Ordering Provider: CHINO KNIGHT Report Released Date/Time: Jul 09, 2023 03:20 PM Reporting Lab: [address] [address] Performing Lab: [address] [address] [place] URINALYS IS BILIRUBIN. TOTAL [PRESENCE] IN URINE NEGATIVE mg/dL 07/07 Specimen Type: URINE Comment: If Glucose = >500 and Ketones are positive, please alert the Physician. Ordering Provider: CHINO KNIGHT Report Released Date/Time: Jul 09, 2023 03:20 PM Reporting Lab: [address] [address] Performing Lab: [address] [address] [place] URINALYS IS SPECIFIC GRAVITY OF URINE BY REFRACTOME TRY 1.031 1.016 - 1.022 07/07 H Specimen Type: URINE Comment: If Glucose = >500 and Ketones are positive, please alert the Physician. Ordering Provider: CHINO KNIGHT Report Released Date/Time: Jul 09, 2023 03:20 PM Reporting Lab: [address] [address] Performing Lab: [address] [address] [place] URINALYS IS PH OF URINE BY TEST STRIP 5.5 5.0 - 9.0 07/07 Specimen Type: URINE Comment: If Glucose = >500 and Ketones are positive, please alert the Physician. Ordering Provider: CHINO KNIGHT Report Released Date/Time: Jul 09, 2023 03:20 PM Reporting Lab: [address] [address] Performing Lab: [address] [address] [place] URINALYS IS UROBILINOG EN [MASS/VOLU ME] IN URINE BY TEST STRIP Normalmg /dL <2.0 - 2.0 07/07 Specimen Type: URINE Comment: If Glucose = >500 and Ketones are positive, please alert the Physician. Ordering Provider: CHINO KNIGHT IE Report Released Date/Time: Jul 09, 2023 03:20 PM Reporting Lab: [address] [address] Performing Lab: [facility] [address] [facility] [address] [facility]AL[facility] IS LEUKOCYTE ESTERASE [PRESENCE] IN URINE BY TEST STRIP NEGATIVE 07/07 Specimen Type: URINE Comment: If Glucose = >500 and Ketones are positive, please alert the Physician. Ordering Provider: CHINO KNIGHT Report Released Date/Time: Jul 09, 2023 03:20 PM Reporting Lab: [facility] [address] [facility] [address] Performing Lab: [facility] [address] [facility] [address] [facility] Vital Signs Combined list of inpatient and outpatient Vital Signs from Department of Defense and Veterans Affairs, ranging from 12 months to all on record, depending upon the facility. Vital Sign Value Date Comments Source SYSTOLIC BLOOD PRESSURE 135 11/10/19 15:17:37 [facility] DIASTOLIC BLOOD PRESSURE 75 025 15:17:37 [facility] [place] [facility] PULSE OXIMETRY 96 11/10/2024 15:17:37 [facility] WEIGHT 245 11/10/2024 15:17:37 [facility] BMI 37 kg/m2 11/10/2024 15:17:37 [facility] PAIN 0 11/10/2024 15:17:37 [facility] [place] [facility] TEMPERATURE 97.7 11/10/2024 15:17:37 [facility] PULSE 67 11/10/2024 15:17:37 [facility] RESPIRATION 18 11/10/2024 15:17:37 [facility] [place] [facility] SYSTOLIC BLOOD PRESSURE 134 07/10/20 24 15:21:28 [place] DIASTOLIC BLOOD PRESSURE 65 024 15:21:28 [place] PULSE OXIMETRY 96 07/10/2024 15:21:28 [place] WEIGHT 247.8 07/10/2024 15:21:28 [place] BMI 38 kg/m2 07/10/2024 15:21:28 [place] TEMPERATURE 97.9 07/10/2024 15:21:28 [place] PULSE 66 07/10/2024 15:21:28 [place] SYSTOLIC BLOOD PRESSURE 113 05/12/20 15:44:12 [facility] DIASTOLIC BLOOD PRESSURE 69 05/12/ 024 15:44:12 [facility] PULSE OXIMETRY 96 05/12/2024 15:44:12 [facility] WEIGHT 244 05/12/2024 15:44:12 [facility] BMI 37 kg/m2 05/12/2024 15:44:12 [facility] [...] 15:29:41 [facility] BMI 36 kg/m2 04/16/2024 15:29:41 [facility] [...] 15:03:12 [facility] BMI 38 kg/m2 02/06/2024 15:03:12 [facility] PAIN 0 02/06/2024 15:03:12 [facility] TEMPERATURE 96.9 02/06/2024 15:03:12 [facility] PULSE 68 02/06/2024 15[facility]03:12 [facility] RESPIRATION 16 02/06/2024 15:03:12 [facility] Encounters Combined list of: 1) Encounters from Department of Veterans Affairs facilities going backup to the last 18 months, not all VA inpatient encounters are included; 2) Encounters from the Department of Defense facilities going backup to 280 months. Location Location Details Encounter Type Encounter Number Reason For Visit Attending Provider ADM Date DC Date Status Disposition Source [facility] OFFICE O/P EST MOD 30-39 MIN [id number] Diagnos is: ICD-10- CM H69.93 Unspeci fied Eustach susana tube disorde r, bilater al ANTONIAANNCHRIS SHLOMO 07/09 [place] [facility] Out[facility] Encounter [id number] 07/09 [facility] OFFICE O/P EST HI 40-54 MIN [id number] Diagnos is: ICD-10- CM E11.9 Type 2 diabete s mellitu 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 RUTHIE STALLINGS 08/01 [facility] OFF/OP EST MAY X REQ PHY/QHP [id number] Diagnos is: ICD-10- CM E11.9 Type 2 diabete s mellitu 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 JANEEN CASTRO Piedad 08/01 [facility] CONT GLUC MNTR ANALYSIS I&R [id number] Diagnos is: ICD-10- CM E11.9 Type 2 diabete s mellitu 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 RUTHIE STALLINGS 08/01 [facility] Out[facility] Encounter [id number] 08/05 [facility] Encounter [id number] 08/15 [facility] Encounter [id number] 08/21 [facility] Encounter [id number] 08/29 [facility] FIT SPECTACLES BIFOCAL [id number] Diagnos is: ICD-10- CM Z46.0 Encount er for fit/adj st of spectac les and contact lenses ALLAN NOVAK 09/02 [facility] En[facility] [id number] 10/14 [facility] INTRM OPH EXAM EST PATIENT [id number] Diagnos is: ICD-10- CM E11.9 Type 2 diabete s mellitu 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 JP HUGGINS 10/31 [facility] Outpatient Encounter [id number] 11/01 [facility] OFFICE O/P EST HI 40 MIN [id number] Diagnos is: ICD-10- CM E11.9 Type 2 diabete s mellitu 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 RUTHIE STALLINGS 11/07 [facility] CONT GLUC MNTR PHYS/QHP EQP [id number] Diagnos is: ICD-10- CM E11.9 Type 2 diabete s mellitu 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 JANEEN CASTRO 11/07 [facility] Outpatient Encounter [id number] 11/11 [facility] OFFICE O/P EST MOD 30 MIN [id number] Diagnos is: ICD-10- CM E11.22 Type 2 diabete s 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 Cortez RAMOS 11/12 [facility] Out[facility] Encounter [id number] 12/11 [facility] (6[facility] QNHP OL DIG ASSMT&MGMT 5-10 [id number] Diagnos is: ICD-10- CM E11.9 Type 2 diabete s mellitu 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 DAMARIS,CHR ISTINE F 12/17 [facility] Out[facility] Encounter [id number] 12/22 [facility] Encounter [id number] 01/11 [facility] Out[facility] Encounter [id number] 01/30 [facility] OFF/OP EST MAY X REQ PHY/QHP [id number] Diagnos is: ICD-10- CM E11.9 Type 2 diabete s mellitu 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 MELANY SIMONS ORIA A 02/05 [facility] OFFICE O/P EST HI 40 MIN [id number] Diagnos is: ICD-10- CM E11.9 Type 2 diabete s mellitu 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 RUTHIE STALLINGS CE 02/05 [facility] CONT GLUC MNTR ANALYSIS I&R [id number] Diagnos is: ICD-10- CM E11.9 Type 2 diabete s mellitu 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 RUTHIE STALLINGS CE 02/05 [facility] [place] QNHP OL DIG ASSMT&MGMT 5-10 [id number] Diagnos is: ICD-10- CM E11.9 Type 2 diabete s mellitu 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 SWETHA CARTER 02/06 [place] [facility] Out[facility] Encounter [id number] 02/16 [facility] [place] [facility] Outpatient Encounter [id number] Diagnos is: ICD-10- CM Z02.89 Encount er for other adminis trative examina tions SEVEN KIDD 03/17 [facility] [place] MTMS BY PHARM ADDL 15 MIN [id number] Diagnos is: ICD-10- CM E11.9 Type 2 diabete s mellitu 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 DARVIN MATTHEW PEÑA A 04/02 [place] [facility] OFF/OP CNSLTJ NEW/EST LOW 30 [id number] Diagnos is: ICD-10- CM H90.A21 Snsrnrl hear loss, uni, r ear, with rstrcd hear cntra side JES FRANCESHAI BRUNSONJANNETH R 04/16 [facility] [place] OFFICE O/P EST MOD 30 MIN [id number] Diagnos is: ICD-10- CM E11.22 Type 2 diabete s 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 Cortez RAMOS 05/12 [facility] [place] Outpatient Encounter [id number] Diagnos is: ICD-10- CM Z02.89 Encount er for other adminis trative examina tions NICHOLAS CHANDRA 05/14 [facility] En[facility] [id number] 05/20 [place] [facility] Out[facility] Encounter [id number] 05/20 [facility] Encounter [id number] 05/26 [facility] Out[facility] Encounter [id number] 06/17 [facility] INTRM OPH EXAM EST PATIENT [id number] 1. 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, r eye ANDRIA ALEGRIA 06/25 [facility] FIT SPECTACLES MULTIFOCAL [id number] Diagnos is: ICD-10- CM Z46.0 Encount er for fit/adj st of spectac les and contact lenses ANDRIA ALEGRIA 06/25 [facility] [place] [place] MTMS BY PHARM ADDL 15 MIN [id number] Diagnos is: ICD-10- CM E11.9 Type 2 diabete s mellitu 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 DARVIN MATTHEW A 07/09 [facility] [place] Outpatient Encounter [id number] 07/09 [facility] [place] Outpatient Encounter [id number] Diagnos is: ICD-10- CM Z00.8 Encount er for other general examina tion PUSHPA WORKMAN 07/10 [place] [facility] Out[facility] Encounter [id number] 1. Diagnos is: ICD-10- CM Z02.89 Encount er for other adminis trative examina tions NICHOLAS CHANDRA 08/27 [facility] Encounter [id number] 09/11 [facility] Outpatient Encounter [id number] 10/09 [facility] [place] [facility] [place] MTMS BY PHARM ADDL 15 MIN [id number] 1BY. 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, r eye RHIANNA GONCALVES B 11/05 [facility] FIT SPECTACLES MULTIFOCAL [id number] Diagnos is: ICD-10- CM Z46.0 Encount er for fit/adj st of spectac les and contact lenses RHIANNA GONCALVES 11/05 [facility] OFFICE O/P EST MOD 30 MIN [id number] Diagnos is: ICD-10- CM E11.22 Type 2 diabete s 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 Cortez RAMOS 11/10 [facility] Outpatient Encounter [id number] 12/06 [facility] Outpatient Encounter [id number] 12/17 [facility] [place] Social History Combined list of available smoking, tobacco, and other social history from Department of Defense and Veterans Affairs facilities. Social History Type Response Date Comment Source Tobacco smoking status NHIS [place]-TOBACCO FORMER USER 07/09/2023 [facility] of [facility]/2022 [facility] History of tobacco use [place]-TOBACCO NEVER USED 05/11/2021 [facility] History of tobacco use [place]-TOBACCO NEVER USED 02/03/2019 [place] History of tobacco use LIFETIME NON-TOBACCO USER 01/13/2018 [place] History of tobacco use LIFETIME NON-TOBACCO USER 01/04/2017 [place] History of tobacco use LIFETIME NON-TOBACCO USER 12/23/2015 [place] History of tobacco use LIFETIME NON-TOBACCO USER 11/27/2005 patient reportssmoking only crack coccaine [place] History of tobacco use LIFETIME NON-SMOKER 01/22/2003 [place] History of tobacco use LIFETIME NON-TOBACCO USER 08/18/2001 pt states he has never smoked [place] History of tobacco use LIFETIME NON-SMOKER 05/14/2001 [place] Plan of Care List of future care activities from Department of Veterans Affairs facilities. Additional future care activities may be listed in the Assessment and Plan section. Date/Time Care Activity Care Activity Detail Facili ty 01/18/2025 AMBULATORY - MEDICINE AMBULATORY - MEDICI NE [facility]
--- OUTSIDE RECORDS SUMMARY | 2024-12-30 10:03 | XMS_ITS | Encounter Summary ---
Author Name [facility] Organization [facility] [place] Address [address] [place] [address] Care Team Providers Care Log Turner Name Role Phone SHAW MOSCOSO Primary Care [...] MEDIC ARE D Sep 16, 2016 PDPIND [id number] [phone] DAYAMI BERGER IS PATIENT AETNA [facility] (WNR) MEDICARE ADVANTAGE [place] Feb 14, 2022 [id number] [phone] DAYAMI BERGER IS PATIENT MEDICAID MEDICAID [facility] Jul 17, 2015 MEDICAI D [id number] DAYAMI BERGER IS PATIENT MEDICARE (WNR) MEDICARE (M) PART A Sep 16, 2010 PART A [id number] [phone] CELINEDAYAMI IS PATIENT MEDICARE (WNR) MEDICARE (M) PART B Sep 16, 2010 PART B [id number] [phone] DAYAMI BERGER IS PATIENT MEDICARE (WNR) MEDICARE (M) PART A Sep 16, 2010 PART A [id number] DAYAMI BERGER IS PATIENT MEDICARE (WNR) MEDICARE (M) PART B Sep 16, 2010 PART B [id number] DAYAMI BERGER IS PATIENT Selected Encounter This section includes the information on record at OR for the Encounter. Date/Time Encounter Type Encounter Description Reason Provider Source February 06, 2024 03:00 PM OFFICE O/P EST HI 40 MIN ENDOCRINOLOGY ICD-10-CM E11.9 Type 2 diabetes mellitus without complications DELMER STALLINGS [facility] Encounter Template Text not used by OR Assessments - Encounter Diagnoses This section includes the primary and secondary diagnoses documented for the Encounter. Date/Time Primary/Secondary Diagnosis Diagnosis Name Provider Source February 06, 2024 03:47 PM PRIMARY Type 2 diabetes mellitus without complications [facility] [place] [facility] February 06, 2024 03:47 PM SECONDARY Chronic kidney disease, stage 3 unspecified [facility] [place] [facility] February 06, 2024 03:47 PM SECONDARY Essential (primary) hypertension [facility] [place] [facility] February 06, 2024 03:47 PM SECONDARY Hyperlipidemia, unspecified [facility] [place] [facility] February 06, 2024 03:47 PM SECONDARY Obesity, unspecified [facility] [place] [facility] February 06, 2024 03:47 PM SECONDARY Type 2 diab with prolif diab rtnop without mclr edema, unsp [facility] [place] [facility] February 06, 2024 03:47 PM SECONDARY Type 2 diabetes mellitus w diabetic chronic kidney disease [facility] [place] [facility] February 06, 2024 03:47 PM SECONDARY Type 2 diabetes mellitus with diabetic polyneuropathy [facility] [place] [facility] Plan of Treatment: Future Appointments (+ 6 months) and Future Tests (+/- 45 days) The Plan of Treatment section includes future care activities for the patient from all OR treatmentfacritical access hospitalities. This section includes future [...] 17, 2024 04:00 PM AMBULATORY - MEDICINE [place] [facility] [place] [facility] Apr 02, 2024 03:00 PM AMBULATORY - MEDICINE [place] [facility] [place] [facility] Apr 16, 2024 03:00 PM AMBULATORY - MEDICINE [place] [facility] [place] [facility] May 12, 2024 03:30 PM AMBULATORY - MEDICINE [place] [facility] [place] [facility] May 14, 2024 08:00 AM AMBULATORY - MEDICINE [place] [facility] [place] [facility] May 20, 2024 03:00 PM AMBULATORY - MEDICINE [place] [facility] [place] [facility] Jun 25, 2024 03:00 PM AMBULATORY - MEDICINE [place] [facility] [place] [facility] Jul 09, 2024 03:00 PM AMBULATORY - MEDICINE [place] [facility] [place] [facility] Jul 10, 2024 03:00 PM AMBULATORY - MEDICINE [facility] Lab Results: +/- 30 days [...] Type Comment January 31, 2024 07:48 AM [place] [facility] [place] [facility] HEMOGLOBIN A1C PANEL BLOOD Specimen Type: BLOOD [...] Nov 04, 2023 09:26 AM Reporting Lab: [facility] [address] [address] Performing Lab: [facility] [address] [address] HEMOGLOBIN A1C 7.2 H 4.0-5.6 January 31, 2024 07:48 AM [facility] BASIC METABOLIC PANEL (non-fasting) SERUM Spe cimen Type: SERUM No comment entered. Ordering Provider: DELMER STALLINGS Report Released Date/Time: Nov 04, 2023 09:26 AM Reporting Lab: [facility] [address] [address] Performing Lab: [facility] [address] [address] UREA NITROGEN 23 mg/dL 7-25 GLUCOSE 233 [...] 68 123/71 16 95 0 251.7 38 [facility] Social History: Smoking Status (Most current) [...] 09, 2023 03:03 PM VA-TOBACCO FORMER USER [facility] Tobacco Use History This section includes a history of the smoking, or tobacco-related health factors, that were collected on or before the date of the Encounter. The data comes from the OR facility where the Encounter took place. Date/Time Smoking Status/Tobacco Use Comment F acility Jul 09, 2023 03:03 PM VA-TOBACCO QUIT 15 YRS OR MORE [place] [facility] [place] [facility] Jul 05, 2022 01:51 PM VA-TOBACCO NEVER USED [place] [facility] [place] [facility] May 11, 2021 01:18 PM VA-TOBACCO NEVER USED [place] [facility] [place] [facility] Encounter Notes: All associated encounter notes This section contains the clinical notes associated to the Encounter. Date/Time Encounter Note(s) Provider Source February 05, 2024 07:55 PM PHYSICIAN NOTE: LOCAL TITLE: MD NOTE STANDARD TITLE: PHYSICIAN NOTE DATE OF NOTE: FEBRUARY 05, 2024@19:55 ENTRY DATE: FEBRUARY 05, 2024@19:55:27 AUTHOR: DELMER STALLINGS COSIGNER: URGENCY: STATUS: COMPLETED NOTE Has ADDENDA CC: Diabetes Mellitus type 2 with chronic kidney disease, NPDR, and peripheral neuropathy , autonomic neuropathy, Hyperlipidemia Obesity HPI: Wants to change from liat to dexcom sensors and loves having a sensor. Congratulated on sustained improvement in hgba1c! All endocrine labs were reviewed with the patient. Barriers/s supports for care: Lives alone. SO visits daily. Son [place] near Cooking pretty consistently at home. Medications for diabetes: glargine 40 units Twice daily and aspart BG readings: CGM Hgba1c? HEMOGLOBIN A1C TREND 01/31/2024 07:48 BLOOD 7.2 H 10/24/2023 09:43 BLOOD 7.1 H 04/02/2023 09:09 BLOOD 9.3 H 12/18/2022 10:14 BLOOD 9.7 H 09/25/2022 07:40 BLOOD 8.6 H Weight trend: 251.7 lbs, fluctuates 38.35 BMI Food insecurity no does occ use OR [employer] Physical activity: walks with rollator Carbohydrate counting: [...] peanuts 12. UTI 13. Claudication (SNOMED CT 176562047) 14. Elevated Prostate Specific antigen [psa] 15. [...] 25. Corneal Abrasion 26. Hypertension (SNOMED CT 41065346) 27. Onychomycosis * 28. Cataract, PSC/Post Subcapsular 29. Cataract, Cortical (Senile) 30. Cyst, ganglion 31. Cervical Radiculopathy 32. Shoulder Pain 33. Hyperlipidemia (SNOMED CT 55015407) 34. Old Myocardial Infarction 35. Depressive Disorder NOS Active Outpatient Medications (including Supplies): FLUTICASONE PROP 50MCG 120D NASAL INHL INSTILL 2 SPRAYS ACTIVE INTO EACH NOSTRIL ONCE DAILY GLUCOSE SENSOR FREESTYLE LIAT 2 USE 1 SENSOR DIRECTED ACTIVE EVERY [...] peripheral neuropathy , autonomic neuropathy: NFR for dexcom G7 sensors. Pt will use reader He feels that current midodrine dose is fine. He is careful rising from sitting or lying Insulin Dose: aspart 30/27/26 and glargine 40 units BID Carbohydrate targets 45 gm TID Blood sugar targets 130 premeal and 150-180 after Hemoglobin A1c Targets 7.5 Obesity Pt has difficulty identifying reasons why he would feel better with weight loss, and does not feel ready to make change at this time. Hyperlipidemia pretty well controlled Team follow up Great candidate for [facility] Dr. Matthew lab Insulin orders updated in cprs F/u three [...] this [facility] (local) and dispensed from another OR or DoD facility (remote) as well as [...] -------- [facility] [place] [facility] GABAP[facility] [place] [facility] NO KNOWN ALLERGIES Med Recon NoGlossary (Tool #1) INCLUDED IN THIS LIST: Alphabetical list of active outpatient prescriptions dispensed from this VA (local) and dispensed from another OR or DoD facility (remote) as well as [...] the patient into personal health records (i.e. Neovacs) are NOT included in this list. Non-VA medications documented outside this OR, remote inpatient orders (regardless of status) and [...] SPRAYS INTO EACH NOSTRIL ONCE DAILY Rx# [id number] Last Released: 07/09/23 Qty/Days Supply: 10/15 Rx Expiration Date: 07/09/24 Refills Remainin Indication: FOR NASAL IRRITATION/INFLAMMATION Non-VA FLUVASTATIN NA 40MG CAP TAKE 1 CAPSULE BY MOUTH ONCE DAILY OUTPT GLUCAGON 1MG/JEY INJ EMERGENCY KIT (Status = Pending) INJECT 1 INJECTION INTRAMUSCULARLY ONE TIME NEEDED Login Date: 02/06/24 Qty/Days Supply: 10/15 Refills Ordered: 0 OUTPT INSULIN,ASPART(EQV-NOVLG)100 UN/ML FLXPEN (Status = On Hold) INJECT 30 UNITS SUBCUTANEOUSLY THREE TIMES A DAY FOR DIABETES Rx# [id number] Last Released: Qt Supply: Rx Expiration Date: 11/07/24 Refills Remainin Indication: FOR DIABETES OUTPT INSULIN,GLARGINE-YFGN 100UNIT/ML PEN 3ML (Status = Discontinued) INJECT 44 UNITS SUBCUTANEOUSLY TWICE DAILY FOR DIABETES (SAME LANTUS) Rx# [id number] Last Released: Qt Supply: Rx Expiration Date: 11/07/24 Refills Remainin Indication: FOR DIABETES OUTPT INSULIN,GLARGINE-YFGN 100UNIT/ML PEN 3ML (Status = Active) INJECT 44 UNITS SUBCUTANEOUSLY TWICE DAILY FOR DIABETES Rx# [id number] Last Released: 12/25/23 Qty/Days Supply: Rx Expiration [...] TIMES A DAY OUTPT GLUCOSE SENSOR FREESTYLE LIAT 2 (Status = Discontinued) USE 1 SENSOR DIRECTED EVERY 14 DAYS Rx# [id number] Last Released: 11/18/23 Qty/Days Supply: 11/13 Rx Expiration Date: 08/23/24 Refills Remainin OUTPT GLUCOSE SENSOR FREESTYLE LIAT 2 (Status = Discontinued) USE 1 SENSOR DIRECTED EVERY 14 DAYS Rx# [id number] Last Released: Qty/Days Supply: 11/13 Rx Expiration Date: 12/13/24 Refills Remainin OUTPT GLUCOSE SENSOR FREESTYLE LIAT 2 (Status = Active) USE 1 SENSOR DIRECTED EVERY 14 DAYS Rx# [id number] Last Released: 01/29/24 Qty/Days Supply: 11/13 Rx Expiration Date: 12/18/24 Refills Remainin OUTPT SKIN BARRIER WIPE TORBOT SKIN TAC (Status = Active) USE 1 WIPE TOPICALLY EVERY 14 DAYS Rx# [id number] Last Released: 03/27/23 Qty/Days Supply: Rx Expiration Date: 03/23/24 Refills Remainin /jamal/ DELMER STALLINGS MD STAFF PHYSICIAN Signed: 02/06/2024 15:47 Receipt Acknowledged By: 02/18/2024 10:00 /jamal/ ROB MATTHEW [employer]INICAL EMPLOYMENT TRAINING SPECIALIST 02/06/2024 ADDENDUM STATUS: COMPLETED He will use a [employer] Journey G7 reader. /keshawn STALLINGS MD STAFF PHYSICIAN Signed: 02/06/2024 15:55 DELMER STALLINGS [facility] [place] [facility]
--- OUTSIDE RECORDS SUMMARY | 2024-12-30 10:03 | XMS_ITS | Encounter Summary ---
Author Name [facility] [place] Organization [place] Address [address] [place] [address] Care Team Providers Care Floorwalker Name Role Phone SHAW MOSCOSO Primary Care [...] MEDIC ARE D Sep 16, 2016 PDPIND [id number] DAYAMI BERGER IS PATIENT AETNA [facility] (WNR) MEDICARE ADVANTAGE MD INDIV IDUAL - MASS Feb 14, 2022 [id number] [phone] DAYAMI BERGER IS PATIENT MEDICAID MEDICAID [facility] Jul 17, 2015 MEDICAI D [id number] DAYAMI BERGER IS PATIENT MEDICARE (WNR) MEDICARE (M) PART A Sep 16, 2010 PART A [id number] DAYAMI BERGER IS PATIENT MEDICARE (WNR) MEDICARE (M) PART B Sep 16, 2010 PART B [id number] [phone] DAYAMI BERGER IS PATIENT MEDICARE (WNR) MEDICARE (M) PART A Sep 16, 2010 PART A [id number] [phone] DAYAMI BERGER IS PATIENT MEDICARE (WNR) MEDICARE (M) PART B Sep 16, 2010 PART B [id number] DAYAMI BERGER IS PATIENT Selected Encounter This section includes the information on record at [place] for the Encounter. Date/Time Encounter Type Encounter Description Reason Provider Source Jul 10, 2024 03:00 PM Outpatient Encounter PRIMARY CARE/MEDICINE ICD-10-CM Z00.8 Encounter for other general examination SHAW MEEHAN Casa Encounter Template Text not used by [place] Assessments - Encounter Diagnoses This section includes the primary and secondary diagnoses documented for the Encounter. Date/Time Primary/Secondary Diagnosis Diagnosis Name Provider Source Jul 10, 2024 04:15 PM PRIMARY Encounter for other general examination SHAW WATKINS [place] Jul 10, 2024 04:15 PM SECONDARY Cerebellar stroke syndrome SHAW WATKINS [place] Jul 10, 2024 04:15 PM SECONDARY Chronic kidney disease, stage 3 unspecified SHAW WATKINS [facility] Jul 10, 2024 04:15 PM SECONDARY Essential (primary) hypertension SHAW WATKINS [facility] Jul 10, 2024 04:15 PM SECONDARY Hyperlipidemia, unspecified SHAW WATKINS [place] Jul 10, 2024 04:15 PM SECONDARY Obesity, unspecified SHAW WATKINS [place] Jul 10, 2024 04:15 PM SECONDARY Type 2 diabetes mellitus w diabetic chronic kidney disease SHAW WATKINS [facility] Jul 10, 2024 04:15 PM SECONDARY Type 2 diabetes mellitus without complications SHAW WATKINS [facility] Plan of Treatment: Future Appointments (+ [...] 20 appointments. The data comes from all [facility] facilities. Appointment Date/Time Appointment Type Appointme nt Facility Name Aug 27, 2024 01:00 PM AMBULATORY - MEDICINE [facility] Oct 28, 2024 03:00 PM AMBULATORY MEDICINE [facility] [place] [facility] Nov 05, 2024 03:00 PM AMBULATORY - MEDICINE [place] [facility] [place] [facility] Nov 10, 2024 03:00 PM AMBULATORY MEDICINE [facility] Lab Results: +/- 30 days of the [...] Type Comment Jul 07, 2024 07:41 AM [place] LIPID PANEL FASTING SERUM Specimen Ty pe: SERUM No comment entered. Ordering Provider: AMBIKA KNIGHT Report Released Date/Time: Jul 09, 2023 03:20 PM Reporting Lab: [facility] [address] [facility] [address] Performing Lab: [address] [address] CHOLESTEROL 132 mg/dL TRIGLYCERIDE 110 mg/dL 0-150 LDL calculated 76 mg/dL 0-129 CHOL/HDL 3.9 HDL CHOLESTEROL 34 mg/dL L 40-60 Jul 07, 2024 07:41 AM [place] HEMOGLOBIN A1C PANEL BLOOD Specimen T ype: [...] Jul 09, 2023 03:20 PM Reporting Lab: [address] [address] Performing Lab: [address] [address] HEMOGLOBIN A1C 6.4 H 4.0-5.6 Jul 07, 2024 07:41 AM [place] BASIC METABOLIC PANEL (fasting) SERUM Specimen Type: SERUM No comment entered. Ordering Provider: AMBIKA KNIGHT Report Released Date/Time: Jul 09, 2023 03:20 PM Reporting Lab: [address] [address] Performing Lab: [address] [address] UREA NITROGEN 24 mg/dL 7-25 GLUCOSE 200 mg/dL H 65-100 SODIUM 137 mmol/L 135-145 POTASSIUM 4.9 mmol/L 3.5-5.0 CHLORIDE 106 mmol/L 100-110 CO2 24 meq/L 20-30 CREATININE, Serum 1.59 mg/dL H 0.50-1.40 eGFR(CKD-EPI 2020) 46 mL/min L >60 Jul 07, 2024 07:41 AM [place] LIVER FUNCTION SERUM Specimen Type: SERUM No comment entered. Ordering Provider: AMBIKA KNIGHT Report Released Date/Time: Jul 09, 2023 03:20 PM Reporting Lab: [address] [address] Performing Lab: [address] [address] PROTEIN,TOTAL 7.5 g/dL 6.0-8.3 ALBUMIN 4.2 g/dL 3.5-5.0 ALKALINE PHOSPHATASE 68 U/L 40-150 AST 23 U/L 5-34 ALT 29 U/L BILIRUBIN, TOTAL 0.4 mg/dL 0.2-1.2 Jul 07, 2024 07:41 AM [place] URINALYSIS URINE S pecimen Type: URINE Comment: If Glucose = >500 and Ketones are positive, please alert the Physician. Ordering Provider: AMBIKA KNIGHT Report Released Date/Time: Jul 09, 2023 03:20 PM Reporting Lab: [address] [address] Performing Lab: [address] [address] UA COLOR Light-Yellow Yellow UA APPEARANCE Clear Clear UA GLUCOSE >1000 mg/dL Negative UA KETONES NEGATIVE mg/dL Negative UA BLOOD NEGATIVE mg/dL Negative UA PROTEIN 20 mg/dL Negative UA NITRITE NEGATIVE mg/dL Negative UA BILIRUBIN NEGATIVE mg/dL Negative UA SPECIFIC GRAVITY 1.031 H 1.016-1.022 UA pH 5.5 5.0-9.0 UA UROBILINOGEN Normal mg/dL <2.0 UA LEUKOCYTE NEGATIVE Negative Jul 07, 2024 07:41 AM [place] TSH SERUM Sp ecimen Type: SERUM No comment entered. Ordering Provider: AMBIKA KNIGHT Report Released Date/Time: Jul 09, 2023 03:20 PM Reporting Lab: [address] [address] Performing Lab: [address] [address] TSH 1.83 u[IU]/mL 0.35-5.00 Jul 07, 2024 07:41 AM [place] CBC AND DIFF (AUTO) BLOOD Specimen Ty pe: BLOOD No comment entered. Ordering Provider: AMBIKA KNIGHT Report Released Date/Time: Jul 09, 2023 03:20 PM Reporting Lab: [address] [address] Performing Lab: [address] [address] WBC 7.74 10*3/uL 4.50-11.00 RBC 4.99 10*6/uL [...] PM 97.9 66 134/65 96 247.8 38 [facility] Social History: Smoking Status (Most current) and Tobacco Use (All prior to encounter date) This section includes the most current, and the historical, smoking and tobacco- related health factors from the [place] facility where the Encounter took place. Current Smoking Status This section includes the most current smoking, or tobacco-related health factor, from the [place] facility where the Encounter took place. Date/Time Current Smoking Status Comment Debbie thao February 03, 2019 10:28 AM [place]-TOBACCO NEVER USED [place] Tobacco Use History This section includes a history of the smoking, or tobacco-related health factors, that were collected on or before the date of the Encounter. The data comes from the [place] facility where the Encounter took place. Date/Time Smoking Status/Tobacco Use Comment F acility Jan 13, 2018 09:49 AM LIFETIME NON-TOBACCO USER [place] Jan 04, 2017 10:17 AM LIFETIME NON-TOBACCO USER [place] Dec 23, 2015 08:49 AM LIFETIME NON-TOBACCO USER [place] Nov 27, 2005 02:55 PM LIFETIME NON-TOBACCO USER patient reportssmoking only crack coccaine [place] January 22, 2003 10:42 AM LIFETIME NON-SMOKER [place] Aug 18, 2001 01:54 PM LIFETIME NON-TOBACCO USER pt states he has never smoked [place] May 14, 2001 02:23 PM LIFETIME NON-SMOKER [place] Encounter Notes: All associated encounter notes This [...] of obesity, HTN, HL, IDDM2, CAD (h/o MT, multiple stents), CKD3, GERD, BPH, ED, OA Initial visit with me Last visit with PCP Dr Knight 2022 annually PCP is [place] Dr Arleth Wolf qfewm Other providers: -- urology Dr Saunders for BPH -- wound clinic [facility] - weekly -- cardiology [facility] - Dr Grayson scheduled -- Endocrinology and pharmacy [place] -- Nephrology [place] -- eye [place] -- ENT [place] -- podiatry non [place] q2m -- non [place] retina [facility] accompanied by his GF today Patient denies any complaints today He was treated for diverticulitis by none [place] PCP several months ago Does not remember when he had last colonoscopy Denies any bloody or black stools, change in bowel movements, weight loss Sister with history of colon cancer Patient will schedule colonoscopy through non [place] PCP using private insurance #CAD/HTN/HL compliant with medications denies CP/SOB/DALTON/palpitations/dizzi ness /claudication h/o MT, PCI multiple stents #DM2 well controlled [facility] #BPH, ED sx well controlled f/w non [facility] #GERD:well controlled Sx on PPI PAST [...] 1. S/p spinal surgery c7-t1. mri 07/21 [facility] shows broad based 2. Osteophyte complex mild [...] father --Cancer: sister colon cancer at 74 --MT: mother d MT 63 --CVA: father SOCIAL HISTORY: --Occupation: retired --Cohabitation: lives with his 52 y/o son he has a girlfriend who works for his primary care doctor --Children: 4 --Diet: Regular --Exercise: walking 2.5 miles daily --Caffeine: no --EtOH:no --Tob: never --MJ: no --Illicits: Cocaine abuse, He stopped all substance abuse @04/2010 --Sexual activity: monogamous --Eye: UTD --Dental: UTD --Hospitalizations: 02/2024 cellulitis [facility] for 5 days ROS: Constitutional: no fever/no [...] of obesity, HTN, HL, IDDM2, CAD (h/o MT, multiple stents), CKD3, GERD, BPH, ED, OA [...] tx for diabetic eye changes.-followed closely by [facility] every 6 weeks foot:f/w non [facility] pod[facility] #CAD: (h/o MT, multiple stents)- today normotenisve, euvolemic pt asymptomatic #Cerebellar stroke syndrome: clinically stable w/o evidence of recurrence #CKD3: clinically stable -f/u w [place] nephrology Healthcare maintenance: --Lipids: LDL 76 (06/2024) --Diabetes: A1c 6.4 (06/2024) --Colon CA (45-75): Colonoscopy 04/26 tics in sigmoid, ' dr galloway +polyps pt recetnly rx for diverticulitis by non [place] PCP and plan is to get referral to GI for colonoscopy- pt will need to hold doac for 2 days, in the past he had CVA while holding DOAC for 7 days for back surgery. no colonoscopy records from 2014 available for review today. pt will arrange colonoscopy through non [place] PCP --Lung CA: --PSA: PSA 1.68 (2021) [...] this [facility] (local) and dispensed from another [place] or [facility] facility (remote) as well as [...] MD PHYSICIAN Signed: 07/10/2024 16:15 ROLO MOSCOSO [place]
--- OUTSIDE RECORDS SUMMARY | 2024-12-30 10:03 | XMS_ITS ---
Author Organization [facility] Address [address] [place] [address] Care Team Providers Care Biomedical Scientist Name Role Phone Manan Reinoso MD Primary Care Provider Unavailab Andrzej Pacheco Unavailable [phone] Ced Hernandez Unavailable [phone] REASON FOR VISIT Painful thick toenails which are aggrevated by shoes and causes difficulty standing/walking Medications Medication SIG (Take, Route, Frequency, Duration) Notes Start Date End Date Status Extra Depth Diabetic Shoes with 3 Pair Custom heat-molded multi-density innersoles for 1 year Dx: Active Encounters Encounter Location Date Provider Diagnosis [facility] [address] [place] [address] 04/27/2024 Ced Hernandez Type 1 diabetes mellitus [...] 3 Months, Reason: Provider Name:Andrzej Camargo , 02/09/2025 03:00:00 PM, [address] [place] [address], [phone], Procedure Notes * Category Sub-Category Detail Notes Keratoma Treatment Parring or Cutting o f Benign Hyperkeratotic Lesion(s) 09312 ( >4 Lesions) - The Benign hyperkeratotic [...] as necessary. Patient chooses, no pharmaceutical tx (01715) Nail Reduction Nail Reduction Trimming of dyst rophic nails performed to reduce/remove overall nail length and girth, by manual and electrical means with use of a nail nipper and/or dremel, to more viable healthy nail plate or bed tissue 6-10 (G0127) Progress Notes * Kirby CHRISTIANSONDOB:1950 ( 74 yo M)Acc No.[id number]:04/27/2024 Progress Note Patient:?Kirby CHRISTIANSON Provider:?Ced Hernandez DPM :1950???Age:73 Y???Sex:Male Jason e:04/27/2024 Address:[address] [place] [address], [facility] Pcp:Manan Reinoso MD Subjective: * Chief Complaints: [...] Vitals:? * Examination: ???Ophthalmology Referral: ?DIABETES EYE EXAM?Diabetic Retinopathy Screening:?Yes 10/2022?Neurological: ?SENSORY:? Neurological exam demonstrates, reduced vibration sensation, [...] and in no acute distress.?ORIENTED:?person,place, and time.?FOOT EXAM:?Lower Extremity Neurological Exam performed:?Yes ?Visual exam of foot performed:?Yes ?Date?10/28/2023 ?Sensory testing performed:?sensations diminished ?Pedal pulse taking performed:?1+?Orthopedic: ?MUSCLE STRENGTH:?5/5 all groups in a symmetrical [...] as necessary. Patient chooses, no pharmaceutical tx (19450).?Keratoma Treatment:?Parring or Cutting of Benign Hyperkeratotic Lesion(s)?14061 ( >4 Lesions) - The Benign hyperkeratotic lesions, as described above were pared, and/or cut utilizing a sterile #15 blade, tissue nippers, and/or dremel.?Nail Reduction:?Nail Reduction?Trimming of dystrophic nails performed to reduce/remove overall nail length and girth, by manual and electrical means with use of a nail nipper and/or dremel, to more viable healthy nail plate or bed tissue 6-10 (G0127).? * Procedure Codes:?77705 TRIM SKIN LESIONS, OVER 4, Modifiers: XS , 87474 DEBRIDE NAIL, 1-5, Modifiers: XS , G0127 TRIMMING DYSTROPHIC NAILS ANY #, Modifiers: XS * Follow Up:?3 Months * Images: * The named appointment provid er may or may not be the originator of this progress note, and it is not deemed complete until electronically signed by the appointment provider. Sign off status: Pending * Provider:Christiano Hernandez DPM Date:? 024 Generated for Zachary wells/Concepcion/Jasmeet on:?12/30/2024 10:03 AM EDT History and Physical Notes * [...] taking performed:: 1+ ORIENTED: person,place, and ti ia Ophthalmology Referral DIABETES EYE EXAM Diabeti c [...]
--- OUTSIDE RECORDS SUMMARY | 2024-12-30 10:03 | XMS_ITS | Encounter Summary ---
Author Name [facility] [place] Address [address] [place] [address] Care Team Providers Care Geographic Information Systems Engineer Name Role Phone SHAW MOSCOSO Primary [...] MEDIC ARE D Sep 16, 2016 PDPIND [id number] DAYAMI BERGER IS PATIENT AETNA [facility] (WNR) MEDICARE ADVANTAGE [place] INDIV IDUAL - [place] Feb 14, 2022 [id number] [phone] DAYAMI BERGER IS PATIENT MEDICAID MEDICAID [facility] Jul 17, 2015 MEDICAI D [id number] DAYAMI BERGER IS PATIENT MEDICARE (WNR) MEDICARE (M) PART A Sep 16, 2010 PART A [id number] [phone] YESSI BERGERZhane IS PATIENT MEDICARE (WNR) MEDICARE (M) PART B Sep 16, 2010 PART B [id number] DAYAMI BERGER IS PATIENT MEDICARE (WNR) MEDICARE (M) PART A Sep 16, 2010 PART A [id number] DAYAMI BERGER IS PATIENT MEDICARE (WNR) MEDICARE (M) PART B Sep 16, 2010 PART B [id number] DAYAMI BERGER IS PATIENT Selected Encounter [...] activities [facility] the [facility] [place] [facility] This section includes future appointments and future orders which are active, pending or scheduled. Future Appointments This section includes appointments that were scheduled to occur 6 months from the date of the Encounter, up to a maximum of 20 appointments. The data comes from all [place] treatment facilities. Appointment Date/Time Appointment Type Appointme nt Facility Name Oct 28, 2024 03:00 PM AMBULATORY [facility]INE [facility] Nov 05, 2024 03:00 PM [facility] [place] [facility] Nov 10, 2024 03:00 PM [facility] January 18, 2025 03:30 PM [facility] - [facility] Social History: Smoking Status (Most current) and Tobacco Use (All prior to encounter date) This section includes the most current, and the historical, smoking and tobacco- related health factors from the [place] facility where the Encounter took place. Current Smoking Status This section includes the most current smoking, or tobacco-related health factor, from the [place] facility where the Encounter took place. Date/Time Current Smoking Status Comment Facil master Jul 09, 2023 03:03 PM [place]-TOBAC[place] FORMER USER [facility] Tobacco Use History This section includes a history of the smoking, or tobacco-related health factors, that were collected on or before the date of the Encounter. The data comes from the [place] facility where the Encounter took place. Date/Time Smoking Status/Tobacco Use Comment F acility Jul 09, 2023 03:03 PM [place]-TO[place]ACCO QU[place] 15 YRS OR MORE [facility] Jul 05, 2022 01:51 PM [place]-TO[place]ACCO NEVER USED [facility] May 11, 2021 01:18 PM [place]-TOBACCO NEVER USED [facility] Encounter Notes: All associated encounter notes This section contains the clinical notes associated to the Encounter. Date/Time Encounter Note(s) Provider Source Sep 11, 2024 03:24 PM PHARMACY NOTE: LOCAL TITLE: PHARMACY CUSTOMER CARE MEDICATION RENEWAL STANDARD TITLE: PHARMACY NOTE DATE OF NOTE: SEP 11, 2024@15:24 ENTRY DATE: SEP 11, 2024@15:24:10 AUTHOR: GERI BLANCO EXP COSIGNER: URGENCY: STATUS: COMPLETED Date: Aug Division: [facility] referred by Pharmacy Call Center for medication renewal: Non-controlled/maintenanc e medication Medications requested: [id number] GLUCOSE SENSOR DEXCOM G7 Defer to specialty clinic To be mailed . Please review and renew if appropriate. *This note was generated by [facility]/[place] Pharmacy Customer Care. If you have any questions or need assistance, do not contact this author. Please refer all questions to your local, on-site pharmacy departments. /jamal/ GERI BLANCO CPhT [employer], [place]/Pharmacy Customer Care Signed: 09/11/2024 15:24 Receipt Acknowledged By: 09/11/2024 15:33 /jamal/ DELMER STALLINGS MD STAFF PHYSICIAN GERI BLANCO [facility]
--- OUTSIDE RECORDS SUMMARY | 2024-12-30 10:03 | XMS_ITS | Encounter Summary ---
Author Name [facility] [facility] [place] [facility] [place] Address [address] [place] [address] Care Team Providers Care Ball Warper Tender Name Role Phone SHAW MOSCOSO Primary Care [...] MEDIC ARE D Sep 16, 2016 PDPIND [id number] DAYAMI BERGER IS PATIENT AETNA [facility] (WNR) MEDICARE ADVANTAGE [place] INDIV IDUAL - [place] Feb 14, 2022 [id number] [phone] DAYAMI BERGER IS PATIENT MEDICAID MEDICAID FOR[facility]LY [facility] Jul 17, 2015 MEDICAI D [id number] DAYAMI BERGER IS PATIENT MEDICARE (WNR) MEDICARE (M) PART A Sep 16, 2010 PART A [id number] DAYAMI BERGER IS PATIENT MEDICARE (WNR) MEDICARE (M) PART B Sep 16, 2010 PART B [id number] [phone] DAYAMI BERGER IS PATIENT MEDICARE (WNR) MEDICARE (M) PART A Sep 16, 2010 PART A [id number] [phone] DAYAMI BERGER IS PATIENT MEDICARE (WNR) MEDICARE (M) PART B Sep 16, 2010 PART B [id number] DAYAMI BERGER IS PATIENT Selected Encounter This section includes the information on record at [place] for the Encounter. Date/Time Encounter Type Encounter Description Reason Provider Source Oct 28, 2024 03:00 PM MTMS BY PHARM JEMMA 15 MIN CLINICAL PHARMACY ICD-10-CM E78.5 Hyperlipidemia, unspecified PAMELA MATTHEW [facility] Encounter Template Text not used by [place] Assessments - Encounter Diagnoses This section includes the primary and secondary diagnoses documented for the Encounter. Date/Time Primary/Secondary Diagnosis Diagnosis Name Provider Source Oct 28, 2024 03:37 PM PRIMARY Hyperlipidemia, unspecified PAMELA MATTHEW RIA[facility] Oct 28, 2024 03:37 PM SECONDARY Type 2 diabetes mellitus without complications PAMELA MATTHEW [place] Plan of Treatment: Future Appointments (+ 6 months) and Future Tests (+/- 45 days) The Plan of Treatment section includes future care activities for the patient [facility] [place] [facility] This section includes future appointments and future orders which are active, pending or scheduled. Future Appointments This section includes appointments that were scheduled to occur 6 months from the date of the Encounter, up to a maximum of 20 appointments. The data comes from all [place] treatment facilities. Appointment Date/Time Appointment Type Appointme nt Facility Name Nov 05, 2024 03:00 PM AM[place]ULATORY - [place]ICINE [place] [facility] [place] [facility] Nov 10, 2024 03:00 PM AMBULATORY - MEDICINE [place] [facility] [place] [facility] January 18, 2025 03:30 PM AMBULATORY - MEDICINE [place] [facility] [place] [facility] Apr 07, 2025 01:00 PM AMBULATORY - MEDICINE [place] [facility] [place] [facility] [...] Type Comment Nov 04, 2024 09:54 AM [facility] FERRITIN SERUM Specimen Type: SERUM No comment entered. Ordering Provider: MELANIA RAMOS Report Released Date/Time: May 12, 2024 03:50 PM Reporting Lab: [facility] [address] [facility] [address] Performing Lab: [facility] [address] [address] FERRITIN 110 ng/mL 20-300 Nov 04, 2024 09:54 AM [facility] MICROALBUMIN CREATININE RATIO PANEL URINE Spe cimen Type: URINE No comment entered. Ordering Provider: MELANIA RAMOS Report Released Date/Time: May 12, 2024 03:50 PM Reporting [facility]: [facility] [address] [facility] [address] Performing Lab: [facility] [address] [facility] [address] MICROALBUMIN/CREATININE RATIO 259.0 mg/g H 0-29.9 MICROALBUMIN,QUANTITATIVE 14.5 mg/dL RR UNAVAIL CREATININE URINE 55.99 mg/dL Nov 04, 2024 09:54 AM [facility] IRON & TIBC PANEL SERUM Specimen Type: SERUM No comment entered. Ordering Provider: MELANIA RAMOS Report Released Date/Time: May 12, 2024 03:50 PM Reporting Lab: [facility] [address] [facility] [address] Performing Lab: [facility] [address] [address] TIBC 305 ug/dL 204-475 IRON 93 ug/dL 40-160 Transferrin Saturation 30.5 20.0-50.0 Transferrin (TRF) 231 mg/dL 200-360 Nov 04, 2024 09:54 AM [facility] LIPID PANEL, NON FASTING SERUM Specimen Type: SERUM No comment entered. Ordering Provider: MELANIA RAMOS Report Released Date/Time: May 12, 2024 03:50 PM Reporting Lab: [address] [address] Performing Lab: [address] [address] CHOLESTEROL 136 mg/dL TRIGLYCERIDE 75 mg/dL 0-150 LDL calculated 82 mg/dL 0-129 CHOL/HDL 3.5 HDL CHOLESTEROL 39 mg/dL L 40-60 Nov 04, 2024 09:54 AM [facility] BASIC METABOLIC PANEL (non-fasting) SERUM Spe cimen Type: SERUM No comment entered. Ordering Provider: MELANIA RAMOS Report Released Date/Time: May 12, 2024 03:50 PM Reporting Lab: [address] [address] Performing Lab: [address] [address] UREA NITROGEN 23 mg/dL 7-25 GLUCOSE 65 mg/dL 65-100 SODIUM 138 mmol/L 135-145 POTASSIUM 4.3 mmol/L 3.5-5.0 CHLORIDE 108 mmol/L 100-110 CO2 22 meq/L 20-30 CALCIUM 9.2 mg/dL 8.5-10.2 CREATININE, Serum 1.42 mg/dL H 0.50-1.40 eGFR(CKD-EPI 2020) 52 mL/min L >60 Nov 04, 2024 09:54 AM [facility] CBC BLOOD Specimen Type: BLOOD No comment entered. Ordering Provider: MELANIA RAMOS Report Released Date/Time: May 12, 2024 03:50 PM Reporting Lab: [address] [address] Performing Lab: [address] [address] WBC 7.93 10*3/uL 4.50-11.00 RBC 5.07 10*6/uL [...] Facil it February 03, 2019 10:28 AM [place]-TOBACCO NEVER USED [place] Tobacco Use History This section includes a history of the smoking, or tobacco-related health factors, that were collected on or before the date of the Encounter. The data comes from the [place] facility where the Encounter took place. Date/Time Smoking Status/Tobacco Use Comment F acility Jan 13, 2018 09:49 AM LIFETIME NON-TOBACCO USER [place] Jan 04, 2017 10:17 AM LIFETIME NON-TOBACCO USER [place] Dec 23, 2015 08:49 AM LIFETIME NON-TOBACCO USER [place] Nov 27, 2005 02:55 PM LIFETIME NON-TOBACCO USER patient reportssmoking only crack coccaine [place] January 22, 2003 10:42 AM LIFETIME NON-SMOKER [place] Aug 18, 2001 01:54 PM LIFETIME NON-TOBACCO USER pt states he has never smoked [place] May 14, 2001 02:23 PM LIFETIME NON-SMOKER [place] Encounter Notes: All associated encounter notes This section contains the clinical notes associated to the Encounter. Date/Time Encounter Note(s) Provider Source Oct 28, 2024 03:12 PM PHARMACY OUTPATIEN T NOTE: LOCAL TITLE: PHARMACY CLINIC NOTE STANDARD TITLE: PHARMACY OUTPATIENT NOTE DATE OF NOTE: OCT 28, 2024@15:12 ENTRY DATE: OCT 28, 2024@15:12:30 AUTHOR: ORB MATTHEW COSIGNER: URGENCY: STATUS: COMPLETED Patient Name: JESSICA BERGER was seen via [facility] for follow-up for diabetes management treatment. : Aug Age: 73 Sex: MALE Race: WHITE Subjective: Pt presents to the visit w/ his girlfriend; doing well. He started to walk daily - has different walker at home. He states he is getting stronger. Per prev: Pt came in w/ his girlfriend Irwin. [...] BMI Food insecurity no does occ use SGB Physical activity: walks with rollator Carbohydrate counting: [...] peanuts 12. UTI 13. Claudication (SNOMED CT 537295852) 14. Elevated Prostate Specific antigen [psa] 15. [...] 25. Corneal Abrasion 26. Hypertension (SNOMED CT 32471574) 27. Onychomycosis * 28. Cataract, PSC/Post Subcapsular 29. Cataract, Cortical (Senile) 30. Cyst, ganglion 31. Cervical Radiculopathy 32. Shoulder Pain 33. Hyperlipidemia (SNOMED CT 57509991) 34. Old Myocardial Infarction 35. 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 on semaglutide (ozempic) Previous DM Medications: Adherence: Oral meds: denies missed doses Insulin: denies missed doses Labs: HEMOGLOBIN A1C TREND Collection DT Spec HGBA1c outside [place]: 6.7% (10/13/24) [facility] 07/07/2024 07:41 BLOOD 6.4 H 01/31/2024 07:48 [...] IN RANGE <1% LOW 0% VERY LOW Date: 10/28/24 14 day avg; 182 mg/dl 12% VERY HIGH 38% HIGH 49% IN RANGE <1% LOW 0% VERY LOW [...] USE VIEW HOME SCREEN SMART DEVICE SETTINGS COOK SHIP SET UP COOK SHIP SET UP HOW/WHEN TO TO USE VIEW HOME SCREEN COOK SHIP DEVICE SETTINGS VIDYA AND COOK SHIP TREND ARROWS VIDYA AND COOK SHIP TREND GRAPHS END SENSOR SESSION REMOVE SENSOR [...] HANDOUTS GIVEN: Dexcom Dedicated Phone Line For [place] patients Sensor change guide--step by step instructions [...] recommend to consider changing pt back to [facility]. pt to provide 7 days worth of meal /diary for next visit. Pt declined nutrition and fit vet consult. f/up in October. Date: 10/28/24 Reviewed how to manage insulin novolog w/ the amount of carbs eaten. Pt's BG is highly variable likely due to not matching insulin novolog needs properly - amount of carbs and pt's incraesed physical activity contribute to that. Reviewed proper treatmnet of lows. Grld highly resistant to pt not using candies, soda, etc. Explained the rationale to prevent post prandial spikes after treatment. REcommend to reduce dose of insulin glargine. Reviewed nutritionf. Set up dexcom clarity on the phone at the visit f/u now telephone. DIABETES A1c is above goal of <7% - Medication management Diabetes --DECREASE insulin glargine to 35 units twice daily ( 7-8 AM; 8-9 PM -- Insulin novolog 27/27/25 units TID - injects before meals *if salad eaten only reduce dose by 2 units. - Reviewed [place] lab results - Monitor for s/sx hypoglycemia and contact clinic if BG consistently <70mg/dL - Healthy dietary and lifestyle modifications encouraged - less snacking - Repeat A1c: prior to nephrology appt 10/2024 HTN: recent BP wnl on 01/2024 ;metoprolol KERRI-I/ARB - defer to PCP ASCVD: apixaban (DVT 3 years ago) ; fluvastatin Microalb:Oct 24, 2023@09:42 URINE mALB/Cr: 131.8 H mg/G History of Preventive Care: Most recent visit to material damage appraiser: non-[facility] ; last visit 1 months ago [...] : T2D Length of Visit: 35 minutes Suicide Screen: C-SSRS Screening [place]-Suicide Severity Rating Scale (C-SSRS Screener) 1. Over the past month, have you wished you were or wished you could go to sleep and not wake up? No 2. Over the past month, have you had any actual thoughts of killing yourself? No 3. Over the past month, have you been thinking about how you might do this? Response not required due to responses to other questions. 4. Over the past month, have you had these thoughts and had some intention of acting on them? Response not required due to responses to other questions. 5. Over the past month, have you started to work out or worked out the details of how to kill yourself? Response not required due to responses to other questions. 6. If yes, at any time in the past month did you intend to carry out this plan? Response not required due to responses to other questions. 7. In your lifetime, have you ever done anything, started to do anything, or prepared to do anything to end your life (for example, collected pills, obtained a gun, gave away valuables, went to the roof but didn't jump)? No 8. If YES, was this within the past 3 months? Response not required due to responses to other questions. PBM PharmD Pharmacotherapy Rem V12: PHARMACIST INTERVENTIONS: TYPE 2 DIABETES MELLITUS Medication Intervention(s) Adjust dose or frequency of current medication due to hypoglycemia Plan: reduce dose of insulin glargine Adjust dose or frequency of current medication due to other reason Plan: decrease dose of novolog w/ light meals Medication monitoring, no dosage change required, continue to monitor and assess /jamal/ ROB MATTHEW CLINICAL CUT PRESS OPERATOR Signed: 10/28/2024 15:42 Receipt Acknowledged By: 11/18/2024 08:57 /jamal/ FAIZA SAUCEDO NP NURSE PRACTITIONER for ROB BLEVINS
--- OUTSIDE RECORDS SUMMARY | 2024-12-30 10:03 | XMS_ITS | Patient Health Record ---
Author Organization [facility] Address [address] [place] [address] Care Team Providers Care Human Resources Intern Name Role Phone Manan Reinoso MD Primary Care Provider Unavailab Andrzej Pacheco Unavailable [phone] Ced Hernandez Unavailable [phone] Allergies No Known Allergies Results Component Value Reference Range Notes HEMOGLOBIN A1C (GLYCOHEMOGLO BIN) Reviewed date:11/03/2024 03:56:03 PM Interpretation: Performing Lab: Notes/Report: HEMOGLOBIN A1C (GLYCOHEMOGLO BIN) Reviewed date:11/03/2024 03:59:03 PM Interpretation: Performing Lab: Notes/Report: HEMOGLOBIN A1C % (HH) 6.7 Reason For Referral No Information Medications Medication SIG (Take, Route, Frequency, Duration) Notes Start Date End Date Status Jardiance 25 MG 1 tablet Orally Once a day Active HumaLOG Active Finasteride 5 MG 1 tablet Orally Once a day for 30 day(s) Active Metoprolol Tartrate Active Midodrine HCl Active Lantus Active Magnesium 400 MG as directed Orally Active ASA Active Tadalafil 5 MG 1 tablet as needed O rally Once a day for 30 day(s) Active Eliquis 5 MG 1 tablet Orally Twic e a day for 30 day(s) Active Extra Depth Orthopedic Shoes (1 Pair) with Customized Heat Molded Multidensity Innersoles (3 Pair) as directed Dx: IDDM/Polyneuropathy (E10.42), Hammertoe Foot Deformity (M20.41,M20.42), Preulcerative Skin Lesion(s) (L85.1) 07/28/2024 Active Pantoprazole Sodium 40 MG 1 tablet Orall y Once a day for 30 day(s) Active Vicodin Active Rosuvastatin Calcium 40 MG 1 tablet Oral ly Once a day for 30 day(s) Active Immunizations Vaccine Route Administration Date Status [...] ast year? No Points 0 Interpretation Negative Problems Problem Type SNOMED Code ICD Code Onset Dates Problem Status W/U Status Risk Notes Problem Acquired hammer toe of right foot (3104934415754303 ) Other hammer toe(s) (acquired), right foot (M20.41) Active confirmed Response to treatment, Improvemen t Problem Acquired hammer toe of left foot (0540492626102933 ) Other hammer toe(s) (acquired), left foot (M20.42) Active confirmed Response to treatment, Improvemen t Problem Polyneuropathy due to diabetes mellitus type I (972136910) Type 1 diabetes mellitus with diabetic polyneuropathy (E10.42) Active confirmed Vital Signs Blood pressure diastolic 70 mm Hg 11/03/2024 Height 5ft 8in in 11/03/2024 Blood pressure systolic 130 mm Hg 11/03/2024 Weight 235 lbs 11/03/2024 BMI 35.73 kg/m2 11/03/2024 Procedures Procedure Date Ordered Date Performed Result Body Sit e 63720-YWSOWTH NAIL, 1-5 07/28/2024 N/A 16827-ADTP SKIN LESIONS, OVER 4 07/28/2024 N/A O0701-VTUWJHXS DYSTROPHIC NAILS ANY # 07/28/2024 N/A 04150-RPRXTIV NAIL, 1-5 11/03/2024 N/A 04900-SNQI SKIN LESIONS, OVER 4 11/03/2024 N/A I7806-FZVNNRAX DYSTROPHIC NAILS ANY # 11/03/2024 N/A Encounters Encounter Location Date Provider Diagnosis [address] [address] 01/27/2024 Ced Hernandez Type 1 diabetes mellitus with diabetic polyneuropathy E10.42 ; Skin disease L98.9 ; Hallux valgus (acquired), left foot M20.12 ; Tinea unguium B35.1 ; Pain in right toe(s) M79.674 ; Pain in left toe(s) M79.675 and Ingrowing nail L60.[address] [address] 04/27/2024 Ced Hernandez Type 1 diabetes mellitus with diabetic polyneuropathy E10.42 ; Skin disease L98.9 ; Hallux valgus (acquired), left foot M20.12 ; Tinea unguium B35.1 ; Pain in right toe(s) M79.674 ; Pain in left toe(s) M79.675 and Ingrowing nail L60.[address] [address] 07/28/2024 Andrzej Camargo Type 1 diabetes mellitus with diabetic polyneuropathy E10.42 ; Tinea unguium B35.1 ; Other hammer toe(s) (acquired), right foot M20.41 and Other hammer toe(s) (acquired), left foot M20.[address] [address] 11/03/2024 Andrzej Camargo Type 1 diabetes mellitus with diabetic polyneuropathy E10.42 ; Tinea unguium B35.1 ; Other hammer toe(s) (acquired), right foot M20.41 and Other hammer toe(s) (acquired), left foot M20.42 Assessments Encounter Date Diagnosis (ICD Code) Assessment Notes Treatment Notes Treatment Clinical Notes Section Notes 01/27/2024 Type 1 diabetes mellitus with diabetic polyneuropathy (ICD-10 - E10.42) 01/27/2024 Skin disease (ICD-10 - L98.9) 04/27/2024 Type 1 diabetes mellitus with diabetic polyneuropathy (ICD-10 - E10.42) 07/28/2024 Tinea unguium (ICD-10 - B35.1) 07/28/2024 Type 1 diabetes mellitus with diabetic polyneuropathy (ICD-10 - E10.42) 11/03/2024 Type 1 diabetes mellitus with diabetic polyneuropathy (ICD-10 - E10.42) 11/03/2024 Tinea unguium (ICD-10 - B35.1) 11/03/2024 Other hammer toe(s) (acquired), right foot (ICD-10 - M20.41) Response to treatment,Impro vement 07/28/2024 Other hammer toe(s) (acquired), right foot (ICD-10 - M20.41) Patient Educated with: DIABETIC FOOT CARE INSTRUCTIONS. pdf (DIABETIC FOOT CARE INSTRUCTIONS. pdf) 04/27/2024 Skin disease (ICD-10 - L98.9) 01/27/2024 Hallux valgus (acquired), left foot (ICD-10 - M20.12) 01/27/2024 Tinea unguium (ICD-10 - B35.1) 04/27/2024 Hallux valgus (acquired), left foot (ICD-10 - M20.12) 07/28/2024 Other hammer toe(s) (acquired), left foot (ICD-10 - M20.42) 11/03/2024 Other hammer toe(s) (acquired), left foot (ICD-10 - M20.42) Response to treatment,Impro vement 01/27/2024 Pain in right toe(s) (ICD-10 - M79.674) 04/27/2024 Tinea unguium (ICD-10 - B35.1) 01/27/2024 Pain in left toe(s) (ICD-10 - M79.675) 04/27/2024 Pain in right toe(s) (ICD-10 - M79.674) 04/27/2024 Pain in left toe(s) (ICD-10 - M79.675) 01/27/2024 Ingrowing nail (ICD-10 - L60.0) 04/27/2024 Ingrowing nail (ICD-10 - L60.0) Plan Of Treatment Pending Test Test Name Order Date X ray : Foot, left 3V 12/05/2022 92450-KNDNGMK NAIL, 1-5 07/28/2024 98773-TWSHHFG NAIL, 1-5 11/03/2024 11437-DZAZUVK SKIN/TISSUE 12/05/2022 94872-ZFZLKLA SKIN/TISSUE 01/09/2023 24356-CCWT SKIN LESIONS, OVER 4 02/08/20 23 21283-ULLI SKIN LESIONS, OVER 4 12/06/19 23 99291-MRTQ SKIN LESIONS, OVER 4 07/28/20 24 17688-YVQT SKIN LESIONS, OVER 4 11/03/19 25 E7313-XYTYDZGT DYSTROPHIC NAILS ANY # Q3929-VKZCEGAL DYSTROPHIC NAILS ANY # L0015-OJEUITEB DYSTROPHIC NAILS ANY # E6617-HPIRLYKL DYSTROPHIC NAILS ANY # Next Appt Details Provider Name:Andrzej Camargo , 02/09/2025 03:00:00 PM, [address] [place] [address], [phone], Insurance Providers Payer Name Payer Address Payer Phone Subscriber Number Group Number Insured Name Patient Relationship to Insured Coverage Start Date Coverage End Date [employer] PPO [address] [place] [phone] [id number] Kirby Christianson Self - patient is the insured Medical (General) History Medical History History ICD Code Back,Hip,and Knee pain Diabetic type ll Poor circulation Stroke ulcer Surgical History Surgery Date(Month/Year) back surgery- Spine L5 03/06 cataract surgery appendectomy right leg infection- [facility] 03/2024 Hospitalization History Reason Date(Month/Year)
--- OUTSIDE RECORDS SUMMARY | 2024-12-30 10:03 | XMS_ITS | Encounter Summary ---
Author Name [facility] [place] Organization [place] Address [address] [place] [address] Care Team Providers Care Machine Setter Sheet Metal Name Role Phone SHAW MOSCOSO Primary Care [...] MEDIC ARE D Sep 16, 2016 PDPIND [id number] DAYAMI BERGER IS PATIENT AETNA [facility] (WNR) MEDICARE ADVANTAGE [place] INDIV IDUAL - [place] Feb 14, 2022 [phone] DAYAMI BERGER IS PATIENT MEDICAID [facility]ICAID [facility] Jul 17, 2015 MEDICAI D [id number] DAYAMI BERGER IS PATIENT MEDICARE (WNR) MEDICARE (M) PART A Sep 16, 2010 PART A [id number] [phone] YESSI BERGERZhane IS PATIENT MEDICARE (WNR) MEDICARE (M) PART B Sep 16, 2010 PART B [id number] DAYAMI BERGER IS PATIENT MEDICARE (WNR) MEDICARE (M) PART A Sep 16, 2010 PART A [id number] DAYAMI BERGER IS PATIENT MEDICARE (WNR) MEDICARE (M) PART B Sep 16, 2010 PART B [id number] DAYAMI BERGER IS PATIENT Selected Encounter This section includes the information on record at [place] for the Encounter. Date/Time Encounter Type Encounter Description Reason Pro vider Source Dec 06, 2024 08:13 AM Outpatient Encounter ADMIN PAT ACTIVTIES (MASNONCT) IHE Encounter Template Text not used by [place] Plan of Treatment: Future Appointments (+ 6 [...] [place] treatment facilities. Appointment Date/Time Appointment Type Appointme nt Facility Name January 18, 2025 03:30 PM AMBULATORY - MEDICINE [facility] Apr 07, 2025 01:00 PM AMBULATORY - MEDICINE [facility] Social History: Smoking Status (Most current) and Tobacco Use (All prior to encounter date) This section includes the most current, and the historical, smoking and tobacco- related health factors from the [place] facility where the Encounter took place. Current Smoking Status This section includes the most current smoking, or tobacco-related health factor, from the [place] facility where the Encounter took place. Date/Time Current Smoking Status Comment Facil ity Jul 09, 2023 03:03 PM [place]-TOBACCO QUIT 15 YRS OR MORE [facility] Tobacco Use History This section includes a history of the smoking, or tobacco-related health factors, that were collected on or before the date of the Encounter. The data comes from the [place] facility where the Encounter took place. Date/Time Smoking Status/Tobacco Use Comment F acility Jul 09, 2023 03:03 PM [place]-TOBACCO QUIT 15 YRS OR MORE [place] [facility] [place] [facility] Jul 05, 2022 01:51 PM VA-TOBACCO NEVER USED [place] [facility] [place] [facility] May 11, 2021 01:18 PM [facility]ACCO [facility] Encounter Notes: All associated encounter notes This section contains the clinical notes associated to the Encounter. Date/Time Encounter Note(s) Provider Source Dec 06, 2024 08:13 AM PHARMACY NOTE: LOCAL TITLE: PHARMACY CUSTOMER CARE MEDICATION RENEWAL STANDARD TITLE: PHARMACY NOTE DATE OF NOTE: DEC 06, 2024@08:13 ENTRY DATE: DEC 06, 2024@08:13:41 AUTHOR: JANA STAPLETON EXP COSIGNER: URGENCY: STATUS: COMPLETED Date: Nov Division: [facility] referred by Pharmacy Call Center for medication renewal: Non-controlled/maintena nce medication Medications requested: [id number] NEEDLE,PEN 31G,8MM Last Release Date: 01/08/14 * This prescription is long , but the requested to renew it. He wants to go back to this size needle instead of the 4mm, he currently has. The [place] can be reached at the number on file to discuss further. Defer to specialty clinic To be mailed . Please review and renew if appropriate. *This note was generated by [facility] Pharmacy Customer Care. If you have any questions or need assistance, do not contact this author. Please refer all questions to your local, on-site pharmacy departments. /jamal/ JANA STAPLETON CPhT Psychology Lecturer, [place]/Pharmacy Customer Care Signed: 12/06/2024 08:16 Receipt Acknowledged By: 12/06/2024 11:28 /jamal/ DELMER STALLINGS MD STAFF PHYSICIAN JANA STAPLETON [facility]
== END 2024-12-30 09:12 | disposition home or self-care (01) ==
LOC: HO.XRAY 09:11
PROVIDERS: PCP Internal Medicine; Visit Provider Internal Medicine
DX: R13.10 Dysphagia, unspecified (principal)
CPT/HCPCS: 74221

== ENCOUNTER → 2024-12-30 09:13 | Outpatient (BNV) | payer MEDICARE, MEDICAID, SELFPAY | PROVIDERS: PCP Internal Medicine; Visit Provider Radiology Diagnostic Radiology | DX: K22.4 Dyskinesia of esophagus (principal) | CPT/HCPCS: 74221 ==

== ENCOUNTER 2025-02-26 14:28 | Outpatient (REF) | payer MEDICARE, MEDICAID, SELFPAY ==
--- NOTE | ~2025-02-26 | US_ITS ---
CLINICAL HISTORY: CEREBRAL INFARCTION US Bilateral Carotid Duplex Comparison: None Findings: Mild atherosclerotic plaquing of the carotid systems bilaterally. Peak systolic velocities: Right CCA: 138 cm/s. Right ICA: 144 cm/s. ICA/CCA ratio: 0.81. Right ECA: Unremarkable Right vertebral artery flow antegrade. Left CCA: 165 cm/s. Left ICA: 161 cm/s. ICA/CCA ratio: 0.6 Left ECA: Mildly elevated velocity of 210 cm/sec. Left vertebral artery flow antegrade. IMPRESSION: Normal internal carotid velocities, no significant stenosis (0-49% stenosis). Significance indeterminate elevation velocity of the left external carotid artery. This raises the possibility of stenosis. This document has been electronically signed by: Bernardino Villatoro MD on 02/28/2025 07:31:12
--- OUTSIDE RECORDS SUMMARY | 2025-02-26 14:30 | XMS_ITS | Encounter Summary ---
Author Organization [employer] Address [address] [place] [address] 7 [place] [address] Care Team Providers Care Precision Assembly Inspector Name Role Phone Unavailable Primary Care Provider Unavailabl e Encounter Details Date Type Department Care Team (Latest Contact Info) Description 08/10/2019 Abstract [facility] CONVERSIONS Dental, Provider, DDS Social History Tobacco [...]
== END 2025-02-26 14:29 | disposition home or self-care (01) ==
LOC: HO.HMGCX 14:28
PROVIDERS: PCP Internal Medicine; Visit Provider Psychiatry & Neurology Neurology
DX: I63.9 Cerebral infarction, unspecified (principal); I65.23 Occlusion and stenosis of bilateral carotid arteries
CPT/HCPCS: 93880

== ENCOUNTER → 2025-02-26 14:32 | Outpatient (BNV) | payer MEDICARE, MEDICAID, SELFPAY | PROVIDERS: PCP Internal Medicine; Visit Provider Radiology Diagnostic Radiology | DX: I63.9 Cerebral infarction, unspecified (principal) | CPT/HCPCS: 93880 ==

== ENCOUNTER 2025-04-12 14:55 | Outpatient (AMB) | payer MEDICARE, MEDICAID, SELFPAY ==
--- NOTE | 2025-04-12 14:38 | A.OFFPC_ITS ---
Vital Signs 04/12/25 14:57 04/12/25 17:05 Height 5 ft 7.52 in Weight 245 lb BMI 37.8 BP 141/65 H 138/65 Blood Pressure Location Rt brachial Lt brachial Position Sitting Sitting Respiration 20 Pulse 68 Pulse Source Pulse Oximeter Temp 97.2 F Temp Source Temporal Artery Scan Pulse Oximetry (%) 95 Oxygen Delivery Method Room Air Intake Visit Reasons: establish care [employer] Required: No Accompanied by: girlfriend Allergies almond (ALMONDS) Allergy (Severe, Verified 04/12/25 17:06) THROAT CLOSES pecan nut (PECAN) Allergy (Severe, Verified 04/12/25 17:06) THROAT CLOSES Medication List - Last Reconciled 04/12/25 by Ling Callaway PA-C apixaban 5 mg PO BID aspirin 81 mg PO DAILY cholecalciferol (vitamin D3) (Vitamin D3) 25 mcg PO DAILY cyanocobalamin (vitamin B-12) 500 mcg PO DAILY diphenoxylate-atropine 2.5-0.025 mg 2 tabs PO TID PRN finasteride 5 mg PO DAILY gabapentin 100 mg PO TID PRN hydrocodone-acetaminophen 5-300 mg 1 tab PO BID PRN insulin aspart U-100 (Novolog U-100 Insulin aspart) 30 units subcut TID insulin glargine (Lantus Solostar U-100 Insulin) 38 units subcut BID loratadine (Claritin) 10 mg PO DAILY magnesium oxide 400 mg PO BID@0900,1700 metoprolol tartrate 12.5 mg PO BID midodrine 10 mg PO BID@0900,1700 pantoprazole 40 mg PO DAILY@0630 pen needle, diabetic (Easy Touch) As directed rosuvastatin 40 mg PO BEDTIME Tobacco use date assessed: 04/12/25 Fall risk assessment: No Falls in past year Last assessed Fall Risk: 04/12/25 Dental Screening Dental Screen Date: 04/12/25 Did you have a dental visit in the last 12 months?: Yes Did you have a dental problem in the last 6 months where you did not have access to dental care?: No Was dental information given to patient?: Patient has dentist HPI establish care HPI Details The patient is a 74-year-old male presenting for a new patient appointment and preoperative clearance for dental surgery. Patient reports he already had a preop for his colonoscopy that is scheduled on Saturday. I explained to him that he should stop his Eliquis for 48 hours before the surgery and 24 hours after the surgery. Patient understands this. The patient has a history of coronary artery disease, for which he underwent stenting. He is also diagnosed with atrial fibrillation and is on anticoagulation therapy with Eliquis. Additionally, he has a history of pulmonary embolism and insulin-dependent diabetes mellitus. 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 His last stroke symptoms occurred in December 2021, and he has been on Eliquis since then without any seizure-like episodes. He is also diagnosed with chronic kidney disease, with recent lab results showing a BUN of 23, creatinine of 1.49, and GFR of 46. He is under the care of a pickup [facility] at the [facility]. The patient has vitamin D and B12 deficiencies, for which he is on supplementation. He is also on medications for hypertension, gastroesophageal reflux disease, and hyperlipidemia. He engages in regular physical activity, riding an exercise bike for 2.5 to 3 miles daily. Social History - Exercise: Rides an exercise bike for 2 .5 to 3 miles daily. FOR[facility]LY [facility], LATER [facility] Medical History (Updated 04/12/25 @ 17:24 by Ling Callaway PA-C) Hyperlipidemia GERD (gastroesophageal reflux disease) Hypertension Vitamin B12 deficiency Vitamin D deficiency CKD (chronic kidney disease) History of transient ischemic attack and cerebral infarction Insulin dependent type 2 diabetes mellitus Pulmonary embolism Coronary artery disease Pre-op exam Atherosclerotic cardiovascular disease Osteomyelitis CVA (cerebral vascular accident) DVT (deep venous thrombosis) BPH (benign prostatic hyperplasia) Frequency-urgency syndrome Subacute osteomyelitis of right foot Enlarged prostate without lower urinary tract symptoms (luts) History of elevated PSA Surgical History History of surgery Family History Mother Heart attack Father Diabetes Stroke Social History Household Members: Family Housing: House Do you presently have visiting nurse or other home services: Yes Alcohol intake: current Alcohol intake frequency: does not drink Patient Tobacco Use Status: Never used Tobacco Second Hand Smoke Exposure: No service: Yes Current occupational status: retired and disabled Cognitive needs: Yes (walker) Hearing needs: No Vision needs: Yes (reading glasses) Questionnaire PHQ-9 Over the last 2 weeks, how often have you been bothered by any of the following problems? 1. Little interest or pleasure in doing things: not at all 2. Feeling down, depressed, or hopeless: not at all 3. Trouble falling or staying asleep, or sleeping too much: not at all 4. Feeling tired or having little energy: not at all 5. Poor appetite or overeating: not at all 6. Feeling bad about yourself - or that you are a failure or have let yourself or your family down: not at all 7. Trouble concentrating on things, such as reading the newspaper or watching television: not at all 8. Moving or speaking so slowly that other people could have noticed. Or the opposite - being so fidgety or restless that you have been moving around a lot more than usual: not at all 9. Thoughts that you would be better off or of hurting yourself in some way: not at all Total score: 0 Depression Screening Interpretation: Negative Depression Screening Done: Yes 22901 - PHQ-9 Billing: Yes Source: Developed by Drs. Jose pSencer, Sobeida Baez, Reza Emerson and colleagues, with an educational shabbir from [employer]. Thrive Questionnaire Date Thrive assessed: 04/12/25 I am a: Patient What is your living situation today?: I have a steady place to live Within the past 12 months, did the food you bought not last and you didn't have the money to get more?: Never true Within the past 12 months, did you worry whether your food would run out before you got money to buy more?: Never true Do you have trouble paying for medicines?: No Do you have trouble getting transportation to medical appointments?: No Do you have trouble paying your heating and electricity bill?: No Do you have trouble taking care of your child, family member or friend?: No Do you have trouble with day-to-day activities such as bathing, preparing meals, shopping, managing finances, etc.?: No Are you currently unemployed and looking for a job?: No Are you interested in more education?: No Please select the resources that you would like help with: None Currently or been in a relationship where the following occur: No concerns reported THRIVE Score: 0 AUDIT C Alcohol Use Questionnaire (AUDIT-C) 1. How often do you have a drink containing alcohol?: Never 3. How often do you have six or more drinks on one occasion?: Never Total Score: 0 Score Reviewed/Action Taken: No LATOSHA-7 AMB Questionnaire LATOSHA-7 Date LATOSHA - 7 assessed: 04/12/25 Feeling nervous, anxious, or on edge: 0 = Not at all Not being able to stop or control worryin = Not at all Worrying too much about different things: 0 = Not at all Trouble relaxin = Not at all Being so restless that it is hard to sit still: 0 = Not at all Becoming easily annoyed or irritable: 0 = Not at all Feeling afraid as if something awful might happen: 0 = Not at all Total LATOSHA-7 score (0-4 normal; 5-9 mild; 10-14 moderate; 15-21 severe): 0 Source: Developed by Drs. Jose Spencer, Sobeida Baez, Reza Emerson and colleagues, with an educational shabbir from [employer]. LATOSHA-7 Assessment Billing LATOSHA-7 Assessment Tool: LATOSHA-7 Assessment 52846 Review of Systems Const Details: - Cardiovascular: Denies chest pain, denies dizziness. - Neurological: Denies seizure-like episodes, denies weakness on the right side from the stroke. - Gastrointestinal: Denies black or bloody stools. All systems reviewed & are unremarkable except as noted in HPI and below Physical exam (Primary Care) Vital Signs: Last Vital Signs Temp 97.2 F 04/12/25 14:57 Pulse 68 04/12/25 14:57 Resp 20 04/12/25 14:57 BP 141/65 H 04/12/25 14:57 Pulse Ox 95 04/12/25 14:57 Oxygen Delivery Method Room Air 04/12/25 14:57 Care Plan Goal for BP management: <140/90 at Goal BMI result Body Mass Index 37.8 BMI Assessment/Plan discussion: High BMI High, discussed plan: lifestyle, weight reduction, dietary, physical activity and alcohol moderation Tobacco/Smoking Status: Tobacco use Status Tobacco use date assessed 04/12/25 04/12/25 14:43 Patient Tobacco Use Status Never used Tobacco 04/12/25 15:13 PHQ-9: PHQ-9 Score PHQ-9: Total score 0 04/12/25 14:43 Depression Screening Interpretation: Negative Thrive Assessment: Date of Thrive Assessment Date Thrive assessed 04/12/25 04/12/25 14:43 Currently or been in a relationship where the following occur: No concerns reported Const Other: Appearance: Alert. Oriented X3. No acute distress. Head: Normal external exam. Normocephalic. Atraumatic. Eyes: Pupils are equal, round, and reactive to light. Extraocular movements intact. Conjunctiva and sclera normal. Eyelids normal. Throat: Pharynx normal. Uvula midline. Moist mucous membranes. Neck: Normal inspection. Neck supple. Full range of motion. Cardiovascular: Normal heart rate and rhythm. Heart sound normal. No murmurs noted. Pulses normal throughout. Blood pressure recorded at 138/60. Respiratory: No respiratory distress. Painless inspiration. Breath sounds normal. No wheezes/rales/rhonchi noted. Chest nontender. No accessory muscle usa ge noted or decreased air movement noted. Back: Full range of motion noted. Skin: Skin warm and dry. Normal skin color. Normal skin turgor. No rashes/lesions/lacerations noted. Extremities: No lower extremity edema. Extremities exhibit normal range of motion. Extremities nontender. Right side noted to be weaker due to previous stroke. Neuro: Oriented X 3. Right hemiparesis noted. Ataxia and dysmetria present. Results Reviewed Results Reviewed: - Labs: BUN 23, Creatinine 1.49, GFR 46 - Labs: Hemoglobin A1c 6.7% (measured approximately one month ago) Coding Level of Care Code New Pt Level 4 (79879) Complex EM visit Add On G2211 Diagnoses Coronary artery disease I25.10 PAF (paroxysmal atrial fibrillation) I48.0 Pulmonary embolism I26.99 Insulin dependent type 2 diabetes mellitus E11.9; Z79.4 History of transient ischemic attack and cerebral infarction Z86.73 CKD (chronic kidney disease) N18.9 Vitamin D deficiency E55.9 Vitamin B12 deficiency E53.8 Hypertension I10 GERD (gastroesophageal reflux disease) K21.9 Hyperlipidemia E78.5 Pre-op exam Z01.818 Additional Codes PHQ-9 - 91538 - PHQ-9 Billing: Yes ([id number]) LATOSHA-7 Assessment Billing - LATOSHA-7 Assessment Tool: LATOSHA-7 Assessment 10097 ([id number]) Time Spent (min) 50 Assessment & Plan Assessment & Plan (1) Coronary artery disease: Code(s): I25.10 - Atherosclerotic heart disease of [place] coronary artery without angina pectoris Category: Medical Plan: The patient has a history of coronary artery disease with prior stenting. Continued management with current medications is advised. (2) PAF (paroxysmal atrial fibrillation): Code(s): I48.0 - Paroxysmal atrial fibrillation Category: Medical Plan: The patient is on anticoagulation therapy with Eliquis for atrial fibrillation. For the upcoming colonoscopy, Eliquis should be stopped 48 hours prior and resumed one day after the procedure. Same should be done when the patient has his dental surgery/dental extractions. Patient understands agrees with this plan. (3) Pulmonary embolism: Code(s): I26.99 - Other pulmonary embolism without acute cor pulmonale Category: Medical Plan: The patient has a history of pulmonary embolism and is currently managed with anticoagulation therapy. 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 Recent A1c was 6.7%, indicating good glycemic control. (5) History of transient ischemic attack and cerebral infarction: Code(s): Z86.73 - Personal history of transient ischemic attack (TIA), and cerebral infarction without residual deficits Category: Medical Plan: The patient has a history of bilateral ischemic cerebral infarcts with residual ataxia and right hemiparesis. He has been stable on Eliquis without further episodes. (6) CKD (chronic kidney disease): Code(s): N18.9 - Chronic kidney disease, unspecified Category: Medical Plan: The patient is diagnosed with chronic kidney disease, currently under nephrology care at the [facility]. Recent labs show BUN 23, creatinine 1.49, and GFR 46. (7) Vitamin D deficiency: Code(s): E55.9 - Vitamin D deficiency, unspecified Category: Medical Plan: The patient is on vitamin D supplementation for deficiency. (8) Vitamin B12 deficiency: Code(s): E53.8 - Deficiency of other specified B group vitamins Category: Medical Plan: The patient is on B12 supplementation for deficiency. (9) Hypertension: Code(s): I10 - Essential (primary) hypertension Category: Medical Plan: The patient is on medication for hypertension management. (10) GERD (gastroesophageal reflux disease): Code(s): K21.9 - Gastro-esophageal reflux disease without esophagitis Category: Medical Plan: The patient is on pantoprazole for gastroesophageal reflux disease management. (11) Hyperlipidemia: Code(s): E78.5 - Hyperlipidemia, unspecified Category: Medical Plan: The patient is on rosuvastatin for hyperlipidemia management. (12) Pre-op exam: Code(s): Z01.818 - Encounter for other preprocedural examination Category: Medical Plan: For preop surgery for oral/dental surgery patient was instructed to rescheduled for later date to avoid prolonged discontinue of anticoagulation as patient is having a colonoscopy this Saturday and will be off of his Eliquis for 3 days. Patient will also go for outpatient blood work which include CBC, CMP, EKG before being cleared for preop surgery. Plan Plan Patient was informed and verbally consented to the use of an ambient scribe for clinic note documentation during this visit. 1. Coronary Artery Disease The patient has a history of coronary artery disease with prior stenting. Continued management with current medications is advised. 2. Atrial Fibrillation The patient is on anticoagulation therapy with Eliquis for atrial fibrillation. For the upcoming colonoscopy, Eliquis should be stopped 48 hours prior and resumed one day after the procedure. 3. Pulmonary Embolism The patient has a history of pulmonary embolism and is currently managed with anticoagulation therapy. 4. Insulin-Dependent Diabetes Mellitus The patient is managing insulin-dependent diabetes mellitus with Novolog and glargine. Recent A1c was 6.7%, indicating good glycemic control. 5. Bilateral Ischemic Cerebral Infarcts The patient has a history of bilateral ischemic cerebral infarcts with residual ataxia and right hemiparesis. He has been stable on Eliquis without further episodes. 6. Chronic Kidney Disease The patient is diagnosed with chronic kidney disease, currently under nephrology care at the [facility]. Recent labs show BUN 23, creatinine 1.49, and GFR 46. 7. Vitamin D Deficiency The patient is on vitamin D supplementation for deficiency. 8. Vitamin B12 Deficiency The patient is on B12 supplementation for deficiency. 9. Hypertension The patient is on medication for hypertension management. 10. Gastroesophageal Reflux Disease The patient is on pantoprazole for gastroesophageal reflux disease management. 11. Hyperlipidemia The patient is on rosuvastatin for hyperlipidemia management. During the visit, we discussed the management of the patient's atrial fibrillation and the need to stop Eliquis 48 hours before the colonoscopy and resume it one day after to minimize bleeding risk. We also reviewed the patient's chronic kidney disease and the importance of monitoring kidney function, with recent labs showing stable parameters. The patient was advised to reschedule the dental surgery to avoid prolonged discontinuation of Eliquis, which could increase stroke risk. When the patient does have the dental surgery he will also have to stop the Eliquis 48 hours before the procedure and resume it 1 day after the procedure to minimize bleeding risks. Patient understands agrees with this plan. Orders: Orders Liver Panel Today Z00.00 - Encounter for general adult medical examination without abnormal findings Magnesium Today Z00.00 - Encounter for general adult medical examination without abnormal findings Vitamin D 25-OH Total Today Z00.00 - Encounter for general adult medical examination without abnormal findings C Reactive Protein Today Z00.00 - Encounter for general adult medical examination without abnormal findings Complete Blood Count Auto Diff Today Z00.00 - Encounter for general adult medical examination without abnormal findings Comprehensive [place]. Panel Fast Today Z00.00 - Encounter for general adult medical examination without abnormal findings Lipid Panel Today Z00.00 - Encounter for general adult medical examination without abnormal findings Vitamin B12 and Folate Today Z00.00 - Encounter for general adult medical examination without abnormal findings Hemoglobin A1c Today Z00.00 - Encounter for general adult medical examination without abnormal findings ECG 12 lead EKG Today Z01.818 - Encounter for other preprocedural examination Patient Instructions: - Stop Eliquis 48 hours before the colonoscopy and resume one day after. - Reschedule dental surgery to avoid prolonged discontinuation of Eliquis. - Complete all prescribed blood work and EKG before the dental surgery. - Continue current medications for diabetes, hypertension, and hyperlipidemia. - Maintain regular exercise routine.
[2025-04-12 14:57] VITALS: BP 141/65; PULSE 68; RESP 20; TEMP 36.2; O2SAT 95; BMI 37.8
--- OUTSIDE RECORDS SUMMARY | 2025-04-12 15:29 | XMS_ITS ---
Care Plan Created on: April 12, 2025 Kirby Christianson : 1950 Sex: Male Author Organization [facility] Address [address] [place] [address] Phone Care Team Providers Care Dry Finisher Name Role Phone Manan Reinoso MD Primary Care Provider [phone] Active Problems Problem Noted Date Diagnosed Date Type 2 diabetes mellitus wit h foot ulcer (CODE) ([facility] V24, [facility] V28) 03/03/2025 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 right foot with fat layer exposed ([facility] V24, [facility] V28) 03/03/2025 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 right lower leg with fat layer exposed ([facility] V24, [facility] V28) 08/04/2024 Diabetes mellitus due to und erlying condition with diabetic autonomic neuropathy ([facility] V24, [facility] V28) 08/04/2024 Corns and callosities 08/04/2024 Chronic venous hypertension (idiopathic) with ulcer and inflammation of right lower extremity ([facility] V24, [facility] V28) 08/04/2024 History of colon polyps 11/19/2023 Overview (11/19/2023): 10/20/2015 Dyspnea on exertion 09/27/2021 Cerebrovascular accident (CVA) ([facility] V24, [facility] V28) 04/13/2021 Overview (11/19/2023): Last Assessment & [...] Doxazosin was decreased as well Pulmonary embolism ([facility] V24, [facility] V28) Osteomyelitis of toe of righ t foot ([facility] V24, [facility] V28) 06/04/2019 CKD (chronic kidney disease) stage 3, GFR 30-59 ml/min ([facility] V24, [facility] V28) 04/08/2019 Microalbuminuria 04/08/2019 Chronic back pain 11/03/2018 Coronary artery disease invo lving [place] coronary artery of [place] heart without angina pectoris 10/01/2017 Overview (11/19/2023): Last Assessment & Plan: No ischemic or heart failure symptoms. 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 ([facility] V24, [facility] V28) 10/31/2016 Osteoarthritis of spine with radiculopathy, lumb ar region 10/31/2016 Obstructive sleep apnea 01/24/2016 Overview (11/19/2023): [facility] Polysomnogram: Date 12/10/2017; SE 77%; SM 87%; [...] by 2018 diagnostic polysomnogram. Background diabetic retinopathy ([facility] V24, [facility] V28) 10/20/2015 Depressive disorder 10/20/2015 Diabetic neuropathy ([facility] V24, [facility] V28) 0 10/20/2015 DM (diabetes mellitus), type 2 with ophthalmic complications ([facility] V24, [facility] V28) 10/20/2015 Type 2 diabetes mellitus wit h neurological manifestations ([facility] V24, [facility] V28) 10/20/2015 Diverticulosis 10/20/2015 Overview (11/19/2023): CN [...] goal LDL is less than 70. Old CT (myocardial infarction) 10/07/2015 Overview (11/19/2023): stentsx2, one in 2003 and RCA stent 8/10 Type 2 diabetes mellitus wit h renal manifestations ([facility] V24, [facility] V28) 10/07/2015 Additional Health Concerns Active Problems Noted Date Diagnosed Date Impaired Tissue 08/04/2024 Education needed on impact of smoking on wound 1 10/04/2023 Education needed related to ulceration/compromised skin integrity. 08/04/2024 Impaired Tissue 03/03/2025 Education needed on impact of smoking on wound 0 03/03/2025 Education needed related to ulceration/compromised skin integrity. 03/03/2025 Goals Goal Patient Goal Type Associated Problems [...] ulceration/compr omised skin integrity. Mireille Dan RN Decrease Wound Volume by X% by date (in notes) Care Plan Impaired Tissue Improving( 2:17 PM EDT) Mireille Dan RN Patient and Caregiver Understand Wound Care Education Care Plan Impaired Tissue On track( 025 2:17 PM EDT) Mireille Dan RN Wound volume breakdown reduced [...] smoking on wound No Mireille Yan RN Patient and Caregiver Understand Wound Care Education Care Plan Education needed related to ulceration/compr omised skin integrity. No Mireille Yan RN Interventions Care Plan Interventions Intervention Entry Date Outcome Provide caregiver with wound care procedure information 03/03/2025 Educate caregiver on proper wound care procedures 03/03/2025 Give provider list of wound care supplies 03/03/2025 Refill wound care supplies 03/03/2025 Send Wound Care Supplies 03/03/2025 Give provider list of wound care supplies 03/03/2025 Refill wound care supplies 03/03/2025 Send Wound Care Supplies 03/03/2025 Provide caregiver with wound care procedure information 03/03/2025 Educate caregiver on proper wound care procedures 03/03/2025 Document patient eligibility for HBO 03/03/2025 Assess patient for HBO treatment 03/03/2025 Record wound depth 03/03/2025 Record total wound area 03/03/2025 Measure wound progress 03/03/2025 Create an action plan identifying patient strengths and supports 03/03/2025 Establish quit date with patient 03/03/2025 Discuss prior cessation attempts 03/03/2025 Discuss preferred method of cessation and plan 03/03/2025 Discuss barriers to smoking cessation 03/03/2025 Discuss smoking status with patient 03/03/2025 Create an action plan identifying patient strengths and supports 03/03/2025 Establish quit date with patient 03/03/2025 Discuss prior cessation attempts 03/03/2025 Discuss preferred method of cessation and plan 03/03/2025 Discuss barriers to smoking cessation 03/03/2025 Discuss smoking status with patient 03/03/2025 Provide caregiver with wound care procedure information 03/03/2025 Educate caregiver on proper wound care procedures 03/03/2025 Document patient eligibility for HBO 03/03/2025 Assess patient for HBO treatment 03/03/2025 Record wound depth 03/03/2025 Record total wound area 03/03/2025 Measure wound progress 03/03/2025 Provide caregiver with wound care procedure information 03/03/2025 Educate caregiver on proper wound care procedures 03/03/2025 Document patient eligibility for HBO 03/03/2025 Assess patient for HBO treatment 03/03/2025 Record wound depth 03/03/2025 Record total wound area 03/03/2025 Measure wound progress 03/03/2025 Provide caregiver with wound care procedure information 03/03/2025 Educate caregiver on proper wound care procedures 03/03/2025 Document patient eligibility for HBO 03/03/2025 Assess patient for HBO treatment 03/03/2025 Record wound depth 03/03/2025 Record total wound area 03/03/2025 Measure wound progress 03/03/2025 Provide caregiver with wound care procedure information 03/03/2025 Educate caregiver on proper wound care procedures 03/03/2025 Give provider list of wound care supplies 03/03/2025 Refill wound care supplies 03/03/2025 Give provider list of wound care supplies 03/03/2025 Refill wound care supplies 03/03/2025 Provide caregiver with wound care procedure information 03/03/2025 Educate caregiver on proper wound care procedures 03/03/2025 Document patient eligibility for HBO 03/03/2025 Assess patient for HBO treatment 03/03/2025 Record wound depth 03/03/2025 Record total wound area 03/03/2025 Measure wound progress 03/03/2025 Provide caregiver with wound care procedure information 08/04/2024 Educate caregiver on proper wound care procedures 08/04/2024 Give provider list of wound care supplies 08/04/2024 Refill wound care supplies 08/04/2024 Send Wound Care Supplies 08/04/2024 Give provider list of wound care supplies 08/04/2024 Refill wound care supplies 08/04/2024 Send Wound Care Supplies 08/04/2024 Provide caregiver with wound care procedure information 08/04/2024 Educate caregiver on proper wound care procedures 08/04/2024 Document patient eligibility for HBO 08/04/2024 Assess patient for HBO treatment 08/04/2024 Record wound depth 08/04/2024 Record total wound area 08/04/2024 Measure wound progress 08/04/2024 Create an action plan identifying patient strengths and supports 08/04/2024 Establish quit date with patient 08/04/2024 Discuss prior cessation attempts 08/04/2024 Discuss preferred method of cessation and plan 08/04/2024 Discuss barriers to smoking cessation 08/04/2024 Discuss smoking status with patient 08/04/2024 Create an action plan identifying patient strengths and supports 08/04/2024 Establish quit date with patient 08/04/2024 Discuss prior cessation attempts 08/04/2024 Discuss preferred method of cessation and plan 08/04/2024 Discuss barriers to smoking cessation 08/04/2024 Discuss smoking status with patient 08/04/2024 Provide caregiver with wound care procedure information 08/04/2024 Educate caregiver on proper wound care procedures 08/04/2024 Document patient eligibility for HBO 08/04/2024 Assess patient for HBO treatment 08/04/2024 Record wound depth 08/04/2024 Record total wound area 08/04/2024 Measure wound progress 08/04/2024 Provide caregiver with wound care procedure information 08/04/2024 Educate caregiver on proper wound care procedures 08/04/2024 Document patient eligibility for HBO 08/04/2024 Assess patient for HBO treatment 08/04/2024 Record wound depth 08/04/2024 Record total wound area 08/04/2024 Measure wound progress 08/04/2024 Provide caregiver with wound care procedure information 08/04/2024 Educate caregiver on proper wound care procedures 08/04/2024 Document patient eligibility for HBO 08/04/2024 Assess patient for HBO treatment 08/04/2024 Record wound depth 08/04/2024 Record total wound area 08/04/2024 Measure wound progress 08/04/2024 Related Goals and Interventions Goal Associated Intervent ions Wound volume breakdown reduc ed by X% by week 4 Provide caregiver with wound care proced ure information; Educate caregiver on proper wound care procedures; Document patient eligibility for HBO; Assess patient for HBO treatment; Record wound depth; Record total wound area; Measure wound progress Wound volume breakdown reduc ed by X% by week 8 Provide caregiver with wound care proced ure information; Educate caregiver on proper wound care procedures; Document patient eligibility for HBO; Assess patient for HBO treatment; Record wound depth; Record total wound area; Measure wound progress Wound volume breakdown reduc ed by X% by week 12 Provide caregiver with wound care proced ure information; Educate caregiver on proper wound care procedures; Document patient eligibility for HBO; Assess patient for HBO treatment; Record wound depth; Record total wound area; Measure wound progress Quit using tobacco (cigarett es, smokeless, etc) Create an action plan identifying patien t strengths and supports; Establish quit date with patient; Discuss prior cessation attempts; Discuss preferred method of cessation and plan; Discuss barriers to smoking cessation; Discuss smoking status with patient Reduce tobacco use (cigarett es, smokeless, etc) Create an action plan identifying patien t strengths and supports; Establish quit date with patient; Discuss prior cessation attempts; Discuss preferred method of cessation and plan; Discuss barriers to smoking cessation; Discuss smoking status with patient Decrease Wound Volume by X% by date (in notes) Give provider list of wound care supplie s; Refill wound care supplies; Send Wound Care Supplies; Provide caregiver with wound care procedure information; Educate caregiver on proper wound care procedures; Document patient eligibility for HBO; Assess patient for HBO treatment; Record wound depth; Record total wound area; Measure wound progress Patient and Caregiver Unders tand Wound Care Education Provide caregiver with wound care proced ure information; Educate caregiver on proper wound care procedures; Give provider list of wound care supplies; Refill wound care supplies; Send Wound Care Supplies Decrease Wound Volume by X% by date (in notes) Give provider list of wound care supplie s; Refill wound care supplies; Provide caregiver with wound care procedure information; Educate caregiver on proper wound care procedures; Document patient eligibility for HBO; Assess patient for HBO treatment; Record wound depth; Record total wound area; Measure wound progress Patient and Caregiver Unders tand Wound Care Education Provide caregiver with wound care proced ure information; Educate caregiver on proper wound care procedures; Give provider list of wound care supplies; Refill wound care supplies Wound volume breakdown reduc ed by X% by week 4 Provide caregiver with wound care proced ure information; Educate caregiver on proper wound care procedures; Document patient eligibility for HBO; Assess patient for HBO treatment; Record wound depth; Record total wound area; Measure wound progress Wound volume breakdown reduc ed by X% by week 8 Provide caregiver with wound care proced ure information; Educate caregiver on proper wound care procedures; Document patient eligibility for HBO; Assess patient for HBO treatment; Record wound depth; Record total wound area; Measure wound progress Wound volume breakdown reduc ed by X% by week 12 Provide caregiver with wound care proced ure information; Educate caregiver on proper wound care procedures; Document patient eligibility for HBO; Assess patient for HBO treatment; Record wound depth; Record total wound area; Measure wound progress Quit using tobacco (cigarett es, smokeless, etc) Create an action plan identifying patien t strengths and supports; Establish quit date with patient; Discuss prior cessation attempts; Discuss preferred method of cessation and plan; Discuss barriers to smoking cessation; Discuss smoking status with patient Reduce tobacco use (cigarett es, smokeless, etc) Create an action plan identifying patien t strengths and supports; Establish quit date with patient; Discuss prior cessation attempts; Discuss preferred method of cessation and plan; Discuss barriers to smoking cessation; Discuss smoking status with patient Decrease Wound Volume by X% by date (in notes) Give provider list of wound care supplie s; Refill wound care supplies; Send Wound Care Supplies; Provide caregiver with wound care procedure information; Educate caregiver on proper wound care procedures; Document patient eligibility for HBO; Assess patient for HBO treatment; Record wound depth; Record total wound area; Measure wound progress Patient and Caregiver Unders tand Wound Care Education Provide caregiver with wound care proced ure information; Educate caregiver on proper wound care procedures; Give provider list of wound care supplies; Refill wound care supplies; Send Wound Care Supplies
--- OUTSIDE RECORDS SUMMARY | 2025-04-12 15:29 | XMS_ITS | Encounter Summary ---
Author Organization [employer] Address [address] [place] [address] [address] [place] [address] Care Team Providers Care Auger Machine Offbearer Name Role Phone Unavailable Primary Care Provider Unavailabl e Encounter Details Date Type Department Care Team (Latest Contact Info) Description 08/10/2019 Abstract [facility] CONVERSIONS Dental, Provider, DDS Social History Tobacco Use Types Packs/Day Years Used Date Smoking Tobacco: Never Assessed Sex and Gender Information Value Date Recorded Sex Assigned at Male 07/16/2022 10:23 AM EDT Legal Sex Male 10:23 AM EDT Gender Identity Male 07/16/2022 10:23 AM EDT Sexual Orientation Straight 07/16/2022 10 :23 AM EDT documented as of this encounter Plan of Treatment Upcoming Encounters Date Type Department Care Team (Late st Contact Info) Description 04/21/2025 9:30 AM EDT Office Visit [facility] [address] [place] [address] Andrea Llanes, ANN [address] [place] [address] documented as of this encounter Visit Diagnoses Not on filedocumented in this encounter
--- OUTSIDE RECORDS SUMMARY | 2025-04-12 15:29 | XMS_ITS | Patient Health Record ---
Author Organization [facility] Address [address] [place] [address] Care Team Providers Care Torch Straightener And Heater Name Role Phone Manan Reinoso MD Primary Care Provider Unavailab Andrzej Pacheco Unavailable [phone] Ced Hernandez Unavailable [phone] Allergies No Known Allergies Results Component Value [...] Vaccine Route Administration Date Status Comme nts Influenza Unknown 05/17/2022 Administered COVID-19 Moderna Vaccine Unknown 05/17/2022 Administered 2020,2020 2020 Unsure dates Social History Tobacco Use: Social History Observation [...] Problem Acquired hammer toe of right foot (9750194183364899 ) Other hammer toe(s) (acquired), right foot (M20.41) Active confirmed Response to treatment, Improvemen t Problem Acquired hammer toe of left foot (0926236580312767 ) Other hammer toe(s) (acquired), left foot (M20.42) Active confirmed Response to treatment, Improvemen t Problem Polyneuropathy due to diabetes mellitus type I (952339991) Type 1 diabetes mellitus with diabetic polyneuropathy (E10.42) Active confirmed Vital Signs Blood pressure diastolic 65 mm Hg 02/09/2025 Height 5ft 8in in 02/09/2025 Blood pressure systolic 130 mm Hg 02/09/2025 Weight 245 lbs 02/09/2025 BMI 37.25 kg/m2 02/09/2025 Procedures Procedure Date Ordered Date Performed Result Body Sit e 07142-PMIGDEE NAIL, 1-5 07/28/2024 N/A 24712-NRIQ SKIN LESIONS, OVER 4 07/28/2024 N/A A1740-GTHNVQHA DYSTROPHIC NAILS ANY # 07/28/2024 N/A 15005-CTUZXBK NAIL, 1-5 11/03/2024 N/A 50192-GCMK SKIN LESIONS, OVER 4 11/03/2024 N/A R0712-JCSGBXRP DYSTROPHIC NAILS ANY # 11/03/2024 N/A 10627-ATXMQOK NAIL, 1-5 02/09/2025 N/A 82763-QRDU SKIN LESIONS, OVER 4 02/09/2025 N/A L5031-WKGQUSDT DYSTROPHIC NAILS ANY # 02/09/2025 N/A Encounters Encounter Location Date Provider Diagnosis [address] [address] 04/27/2024 Ced Hernandez Type 1 diabetes mellitus with diabetic polyneuropathy E10.42 ; Skin disease L98.9 ; Hallux valgus (acquired), left foot M20.12 ; Tinea unguium B35.1 ; Pain in right toe(s) M79.674 ; Pain in left toe(s) M79.675 and Ingrowing nail L60.[address] [address] 07/28/2024 Andrzej Camargo Type 1 diabetes mellitus with diabetic polyneuropathy E10.42 ; Tinea unguium B35.1 ; Other hammer toe(s) (acquired), right foot M20.41 and Other hammer toe(s) (acquired), left foot M20.[address] [address] 11/03/2024 Andrzejjuan miguel DailyRaman Type 1 diabetes mellitus with diabetic polyneuropathy E10.42 ; Tinea unguium B35.1 ; Other hammer toe(s) (acquired), right foot M20.41 and Other hammer toe(s) (acquired), left foot M20.[address] [address] 02/09/2025 Andrzej Raman Type 1 diabetes mellitus [...] X ray : Foot, left 3V 12/05/2022 86107-LKKNYIX NAIL, 1-5 11/03/2024 68139-GLEOZRD NAIL, 1-5 02/09/2025 18924-FBSLDPQ NAIL, 1-5 07/28/2024 29907-QYUVVYF SKIN/TISSUE 12/05/2022 61326-XXDCYNK SKIN/TISSUE 01/09/2023 18223-PEAK SKIN LESIONS, OVER 4 02/08/20 23 60342-GKNU SKIN LESIONS, OVER 4 12/06/19 23 14734-KTGQ SKIN LESIONS, OVER 4 07/28/20 24 01398-KSGY SKIN LESIONS, OVER 4 11/03/19 90853-QTLZ SKIN LESIONS, OVER 4 02/10/20 25 O2402-NTDKFIOB DYSTROPHIC NAILS ANY # Z3838-QQIQSPXE DYSTROPHIC NAILS ANY # L6509-IFQKDOLK DYSTROPHIC NAILS ANY # B0124-WRXCVBPG DYSTROPHIC NAILS ANY # C2961-CQTCPJIY DYSTROPHIC NAILS ANY # Next Appt Details Provider Name:Andrzej Camargo , 05/18/2025 03:15:00 PM, [address] [place] [address], [phone], Insurance Providers Payer Name Payer Address Payer Phone Subscriber Number Group Number Insured Name Patient Relationship to Insured Coverage Start Date Coverage End Date [employer] PPO [address] [place] [phone] [id number] Kirby Christianson Self - patient is the insured Medical (General) History Medical History History ICD Code Back,Hip,and Knee pain Diabetic type ll Poor circulation Stroke Surgical History Surgery Date(Month/Year) back surgery- Spine L5 03/06 cataract surgery appendectomy right [place] [facility] [place] Hospitalization History Reason Date(Month/Year)
[2025-04-12 17:05] VITALS: BP 138/65
== END 2025-04-12 15:45 | disposition home or self-care (01) ==
LOC: HO.HMCSH 14:55
PROVIDERS: PCP Physician Assistant Medical; Visit Provider Physician Assistant Medical
DX: I12.9 Hypertensive chronic kidney disease with stage 1 through stage 4 chronic kidney disease, or unspecified chronic kidney disease (principal); I26.99 Other pulmonary embolism without acute cor pulmonale; I48.0 Paroxysmal atrial fibrillation; E11.9 Type 2 diabetes mellitus without complications; Z79.4 Long term (current) use of insulin; I25.10 Atherosclerotic heart disease of native coronary artery without angina pectoris; Z86.73 Personal history of transient ischemic attack (TIA), and cerebral infarction without residual deficits; N18.9 Chronic kidney disease, unspecified; E55.9 Vitamin D deficiency, unspecified; E53.8 Deficiency of other specified B group vitamins; K21.9 Gastro-esophageal reflux disease without esophagitis; Z01.818 Encounter for other preprocedural examination

== ENCOUNTER → 2025-04-12 14:55 | Outpatient (BNVA) | payer MEDICARE, MEDICAID, SELFPAY | PROVIDERS: PCP Physician Assistant Medical; Visit Provider Physician Assistant Medical | DX: Z01.818 Encounter for other preprocedural examination (principal); E11.22 Type 2 diabetes mellitus with diabetic chronic kidney disease; I25.10 Atherosclerotic heart disease of native coronary artery without angina pectoris; I48.0 Paroxysmal atrial fibrillation; I26.99 Other pulmonary embolism without acute cor pulmonale; I12.9 Hypertensive chronic kidney disease with stage 1 through stage 4 chronic kidney disease, or unspecified chronic kidney disease; N18.9 Chronic kidney disease, unspecified; E55.9 Vitamin D deficiency, unspecified; E53.8 Deficiency of other specified B group vitamins; K21.9 Gastro-esophageal reflux disease without esophagitis; E78.5 Hyperlipidemia, unspecified; Z79.4 Long term (current) use of insulin; Z86.73 Personal history of transient ischemic attack (TIA), and cerebral infarction without residual deficits; Z86.711 Personal history of pulmonary embolism | CPT/HCPCS: 96127; 99202 ==

== ENCOUNTER 2025-04-16 07:17 | Day surgery (SDC) | payer MEDICARE, MEDICAID, SELFPAY ==
--- OUTSIDE RECORDS SUMMARY | 2025-03-23 23:59 | XMS_ITS | Continuity of Care Document ---
Author Organization [facility] raul Address [address] [place] [address] ve [address] [place] [address]- Care Team Providers Care Drapery Sewer Hand Name Role Phone Arleth COLLINS, Manan Radford Primary Care Physician Jacinda garrett Encounter [facility] Date(s): 03/16/25 - 03/23/25 [facility] [address] [place] [address] Drive [address] [place] [address]- Attending Physician: Roger Restrepo MD Referring Physician: Manan Reinoso MD Encounter Type: Office Visit Allergies, Adverse Reactions, Alerts Substance Criticality Severity Reaction Reaction Severity Status Nuts High criticality Severe almonds and pecans; throat closes Active Immunizations Given and Recorded Vaccine Date Status Refusal Reason pneumococcal 23-valent vaccine 05/08/10 Given Medications acetaminophen 325 mg oral tablet 650 mg, 2, tablet, By Mouth, Every 4 hours, not to exceed 4000 mg/day, Refills 0, Maintenance, 01/09/21 2:07:00 PM EDT, Partial fill upon patient request if the prescription is for a schedule II opioid drug. Start Date: 01/09/21 Status: Ordered Repeat number: 1 aspirin 81 mg oral delayed release tablet 81 mg, By Mouth, Daily, Refills 0, Maintenance, 01/13/21 11:31:00 AM EDT, Partial fill upon patient request if the prescription is for a schedule II opioid drug. Start Date: 01/13/21 Status: Ordered Repeat number: 1 atorvastatin 40 mg oral tablet 1 tablet = 40 mg, By Mouth, Daily, 0 Refills, Maintenance, 04/13/20 4:46:00 PM EDT, Tablet Start Date: 04/13/20 Status: Ordered Repeat number: 1 doxazosin 8 mg oral tablet 1 tablet = 8 mg, By Mouth, Daily, # 30 tablet, 0 Refills, Maintenance, 02/25/21 11:40:00 AM EDT, Tablet, Partial fill upon patient request if the prescription is for a schedule II opioid drug. Start Date: 02/25/21 Status: Ordered Quantity: 30.0 Unit: tablet Repeat number: 1 Eliquis 5 mg oral tablet 1 tablet = 5 mg, By Mouth, 2 times a day, Start from 01/16/2021, # 60 tablet, 0 Refills, Maintenance,01/16/21 11:58:00 AM EDT, Tablet, Partial fill upon patient request if the prescription is for a schedule II opioid drug. Start Date: 01/16/21 Stop Date: 02/15/21 Status: Ordered Quantity: 60.0 Unit: tablet Repeat number: 1 finasteride 5 mg oral tablet 1 tablet = 5 mg, By Mouth, Daily, # 30 tablet, 0 Refills, Maintenance, 02/25/21 11:40:00 AM EDT, Tablet, Partial fill upon patient request if the prescription is for a schedule II opioid drug. Start Date: 02/25/21 Status: Ordered Quantity: 30.0 Unit: tablet Repeat number: 1 gabapentin 100 mg oral capsule 100 mg, 1, capsule, By Mouth, 3 times a day, PRN, Maintenance, Pain , Moderate, 12/30/20 2:57:00 PM EDT Start Date: 12/30/20 Status: Ordered Repeat number: 1 Insulin Lispro 2-10 units, Subcutaneous Injection, 3 times a day before meals, << Sliding Scale Comments >> 150 - 199 2 units Call if less than 100 200 - 249 4 units 250 - 299 6 units 300 - 349 8 units 350 - 399 10 units Call if greater than 400 << Sliding Scale Comments >>, 0 Refills, Maintenance, 01/13/21 11:31:00 AM EDT, Injection, Partial fill upon patient request if the prescription is for a schedule II opioid drug. Start Date: 01/13/21 Status: Ordered Repeat number: 1 Jardiance 25 mg oral tablet 1 tablet = 25 mg, By Mouth, Daily in AM, # 30 tablet, 0 Refills, Maintenance, 02/25/21 11:39:00 AM EDT, Tablet, Partial fill upon patient request if the prescription is for a schedule II opioid drug. Start Date: 02/25/21 Status: Ordered Quantity: 30.0 Unit: tablet Repeat number: 1 Lantus Inj 0.6 mL = 60 units, Subcutaneous Injection, Daily at bedtime, 0 Refills, Maintenance, 01/13/21 11:31:00 AM EDT, Injection, Partial fill upon patient request if the prescription is for a schedule II opioid drug. Start Date: 01/13/21 Status: Ordered Repeat number: 1 Lidoderm 5% film 1 patch, Topically, Daily, PRN severe back pain, remove patches after 12 hours, # 30 patch, 0 Refills, Maintenance, 10/27/21 9:43:00 AM EST, [facility]/pharmacy #[id number], Partial fill upon patient request if the prescription is for a schedule II opioid drug., 1 patch Topically Daily,x30 days,PRN:severe back pain,Instr:remove patches after 12 hours, 172.7, cm, 05/09/21 15:18:00 EDT, Height, 103.7, kg, 01/09/21 6:06:00 EDT, Dry Weight Start Date: 10/27/21 Stop Date: 11/26/21 Status: Ordered Quantity: 30.0 Unit: patch Repeat number: 1 metFORMIN 1000 mg oral tablet 1 tablet = 1,000 mg, By Mouth, 2 times a day, 0 Refills, Maintenance, 04/18/20 2:15:00 PM EDT, Tablet Start Date: 04/18/20 Status: Ordered Repeat number: 1 Metoprolol Tartrate 25 mg oral tablet 0.5 tablet = 12.5 mg, By Mouth, 2 times a day, 0 Refills, Maintenance, 05/07/12 11:13:26 AM EDT, Tablet Start Date: 05/07/12 Status: Ordered Repeat number: 1 midodrine 5 mg oral tablet 5 mg, 1, tablet, By Mouth, 3 times a day, # 90 tablet, Refills 0, Tot. Refills 0, Maintenance, 03/07/21 3:30:00 PM EDT, Route to Pharmacy Electronically, [facility], Partial fill upon patient request if the prescription is for a schedule II opioid drug., 172.7, cm, 01/13/21 11:44:00 EDT, Height, 103.7, kg, 01/09/21 6:06:00 EDT, Dry Weight Start Date: 03/07/21 Stop Date: 04/06/21 Status: Ordered Quantity: 90.0 Unit: tablet Repeat number: 1 pantoprazole 40 mg oral delayed release tablet 1 tablet = 40 mg, By Mouth, Daily in AM, Maintenance, 12/30/20 2:33:00 PM EDT Start Date: 12/30/20 Status: Ordered Repeat number: 1 Vit B Complex Tablet 1 tablet, By Mouth, Daily in AM, Maintenance, 12/30/20 2:36:00 PM EDT Start Date: 12/30/20 Status: Ordered Repeat number: 1 Vitamin D3 1000 intl units oral capsule 1 capsule = 1,000 International_Units, By Mouth, Daily in AM, Maintenance, 12/30/20 2:35:00 PM EDT Start Date: 12/30/20 Status: Ordered Repeat number: 1 Problem List Condition Confirmation Course Effective Dates Status Health St atus Informant CVA (cerebral vascular accident) Confirmed Active 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 Visit: 03/16/2025 10:39?? Ambulatory Visit Instructions ?? Your Care Team Primary Care Provider Arleth COLLINS, Manan Radford? This Visit Provider Roger Restrepo MD Vitals Signs Pulse Rate: 72 bpm Height: 172.7 cm Systolic Blood Pressure: 122 mm Hg Weight: 111.3 kg Diastolic Blood Pressure: 68 mm Hg Body Mass Index:??37.32 kg/m2??Critical ?? Body surface area: 2.31 What to do next Follow-Up Appointments Follow Up with??Roger Restrepo MD When:??Only if needed Where: [address] [place] [address], [address] [facility] [place] [address]- Medications The list below reflects the information in our records and provided by you today along with any changes made during this visit. Please continue your medications until treatment is completed or stopped by your provider. If this is different from the information you have or there are other questions,please contact the prescribing provider. What How Much When Instructions Unchanged Acetaminophen (acetaminophen 325 mg oral tablet) 2 tab(s) Oral Every 4 hours not to exceed 4000 mg/ day ?? Unchanged apixaban (Eliquis 5 mg oral tablet) 1 tab(s) Oral Twice a day Duration: 30 Days Start from 2020 ?? Unchanged Aspirin (aspirin 81 mg oral delayed release tablet) 81 Milligram Oral Daily Unchanged Atorvastatin (atorvastatin 40 mg oral tablet) 1 tab(s) Oral Daily Unchanged Cholecalciferol (Vitamin D3 1000 intl units oral capsule) 1 capsule Oral Daily in the morning Unchanged Doxazosin (doxazosin 8 mg oral tablet) 1 tab(s) Oral Daily Unchanged empagliflozin (Jardiance 25 mg oral tablet) 1 tab(s) Oral Daily in the morning Unchanged Finasteride (finasteride 5 mg oral tablet) 1 tab(s) Oral Daily Unchanged Gabapentin (gabapentin 100 mg oral capsule) 1 capsule Oral 3 times a day as needed for Pain , Moderate Unchanged Insulin Glargine (Lantus Inj) 60 unit(s) Subcutaneous Injection Daily at Bedtime Unchanged Insulin Lispro 2-10 units Subcutaneous Injection 3 times a day before meals << Sliding Scale Comments >> 150 - 199 ?? 2 units Call if less than 100 200 - 249 ?? 4 units 250 - 299 ?? 6 units 300 - 349 ?? 8 units 350 - 399 ?? 10 units Call if greater than 400 << Sliding Scale Comments >> Unchanged Lidocaine Topical (Lidoderm 5% film) 1 patch Topically Daily as needed for severe back pain Duration: 30 Days remove patches after 12 hours ?? Unchanged Metformin (metFORMIN 1000 mg oral tablet) 1 tab(s) Oral Twice a day Unchanged Metoprolol (Metoprolol Tartrate 25 mg oral tablet) 0.5 tab(s) Oral Twice a day Unchanged Midodrine (midodrine 5 mg oral tablet) 1 tab(s) Oral 3 times a day Duration: 30 Days Unchanged Multivitamin (Vit B Complex Tablet) 1 tab(s) Oral Daily in the morning Unchanged Pantoprazole (pantoprazole 40 mg oral delayed release tablet) 1 tab(s) Oral Daily in the morning Medications and Immunizations Administered Medications Given During Visit No medications given during this visit.?? Allergies (NKA means No Known Allergies) Nuts??(almonds and pecans; throat closes) Common Emergency Awareness Tips IS IT A STROKE? Act FAST and Check for these signs: FACE Does the face look uneven? ARM Does one arm drift down? SPEECH Does their speech sound strange? TIME Call at any sign of stroke ?? Heart Attack Signs Chest discomfort: Most heart attacks involve discomfort in the center of the chest and lasts more than a few minutes, or goes away and comes back. It can feel like uncomfortable pressure, squeezing, fullness or pain. Discomfort in upper body: Symptoms can include pain or discomfort in one or both arms, back, neck, jaw or stomach. Shortness of breath: With or without discomfort. Other signs: Breaking out in a cold sweat, nausea, or lightheaded. Remember, MINUTES DO MATTER. If you experience any of these heart attack warning signs, call to get immediate medical attention! ?? Smoking can increase your chances of developing chronic health problems and can cause harmful effects to other family members in your house. If you smoke, you are strongly encouraged to quit. Please call [employer] at [phone] or 6-799-676Information Assurance (0357) or log in to [email or web address] for referrals to smoking cessation programs. ?? The National Suicide Prevention Hotline is available 08/04 if you or someone you know needs to find a reason to keep living. By calling 9-819-375-PASSNFLY (5046) you'll be connected to a skilled, trained counselor at a crisis center in your area. [facility] [employer] Portal You can view and manage your care through the patient portal or by using a health care olvin of your choosing. [employer] is a website that allows you to securely view your medical information including your hospital discharge summary, office visit summaries, medications and follow-up visits. You can also request appointments, renew medications, and request access to your medical information using a health care olvin of your choosing, or just ask a question. You can enroll at [email or web address] or register during your next office visit. [facility], in keeping with [facility] guidance, no longer requires face masks for staff, patientsor visitors in most situations. Similiar to time spent indoors at other locations, there is the chance that you were exposed to repiratory viruses during your time with us (such as flu or COVID-19). If you develop symptoms concerning for a viral respiratory infection, please seek testing (and treatment if indicated) from your medical provider or home test kit. ?? Disclaimer: The information provided is of a general nature and is intended to be used in conjunction with the recommendations and advice of your health care practitioner. Every effort has been made to ensure that the information provided is accurate and complete at the time it is provided to you however, as your needs change, or, as new information becomes available, different or additional instructions may be required. ?? If you have questions, please consult with your primary care provider or pharmacist, as appropriate. This information is not intended to serve as substitution for assessment and evaluation by a qualified health care provider. If you do not have a primary care provider, you may find a [facility] provider by calling [facility] Link at [phone]. Patient Care team information Care Team Personnel Name: Lorenzo Lutz RN Position: [facility] ED RN W/OE and Tasks Member Role: Primary Care Nurse Name: Fariha Jin RN Position: [facility] RN Member Role: Primary Care Nurse Name: Dorcas Bernstein RN Position: [facility] RN Member Role: Primary Care Nurse Name: Maria Isabel Snider RN Position: [facility] RN Member Role: Primary Care Nurse Name: Emerald Uriostegui RN Position: [facility] RN Member Role: Primary Care Nurse Name: Deedee Oviedo RN Position: [facility] RN Member Role: Primary Care Nurse Name: Yolanda Trinh RN Position: [facility] RN Member Role: Primary Care Nurse Name: Quin Moore RN Position: [facility] KADEN Nurse Member Role: Primary Care Nurse Name: Pranav Marquez RN Position: [facility] RN Member Role: Primary Care Nurse Care Team Related Persons Name: AMELIA BERGER Name: THANIA BERGER Insurance Providers Guarantor name: KATIE Health Plan Information #: 1 Payer: MEDICARE B Payer Identifier: KATIE Member Number: [id number] Group Number: NA Subscriber Identifier: [id number] Relationship to Subscriber: self Coverage Type: NA Coverage Verification Date: NA Telecom: NA Address: NA
--- OUTSIDE RECORDS SUMMARY | 2025-03-29 14:15 | XMS_ITS | Patient Health Record ---
Author Organization [facility] Address [address] [facility] [place] [address] Care Team Providers Care Dot Net Developer Name Role Phone Manan Reinoso MD Primary Care Provider Unavailab Andrzej Pacheco Unavailable [phone] Ced Hernandez Unavailable [phone] Allergies No Known Allergies Results Component Value Reference Range Notes HEMOGLOBIN A1C (GLYCOHEMOGLO BIN) Reviewed date:11/03/2024 03:56:03 PM Interpretation: Performing Lab: Notes/Report: HEMOGLOBIN A1C (GLYCOHEMOGLO BIN) Reviewed date:11/03/2024 03:59:03 PM Interpretation: Performing Lab: Notes/Report: HEMOGLOBIN A1C % (HH) 6.7 Reason For Referral No Information Medications Medication SIG (Take, Route, Frequency, Duration) Notes Start Date End Date Status Lantus Active Magnesium 400 MG as directed Orally Active Jardiance 25 MG 1 tablet Orally Once a day Active HumaLOG Active Metoprolol Tartrate Active Ammonium Lactate 12 % 1 application Exte rnally to affected areas of dry skin to feet except for between the toes Twice a day; Duration: 30 days Active Midodrine HCl Active Pantoprazole Sodium 40 MG 1 tablet Orall y Once a day; Duration: 30 day(s) Active Eliquis 5 MG 1 tablet Orally Twic e a day; Duration: 30 day(s) Active Extra Depth Orthopedic Shoes (1 Pair) with Customized Heat Molded Multidensity Innersoles (3 Pair) as directed Dx: IDDM/Polyneuropathy (E10.42), Hammertoe Foot Deformity (M20.41,M20.42), Preulcerative Skin Lesion(s) (L85.1) 07/28/2024 Active Finasteride 5 MG 1 tablet Orally Once a day; Duration: 30 day(s) Active Vicodin Active Rosuvastatin Calcium 40 MG 1 tablet Oral ly Once a day; Duration: 30 day(s) Active ASA Active Tadalafil 5 MG 1 tablet as needed O rally Once a day; Duration: 30 day(s) Active Immunizations Vaccine Route Administration [...] Problem Acquired hammer toe of right foot (0784759065357534 ) Other hammer toe(s) (acquired), right foot (M20.41) Active confirmed Response to treatment, Improvemen t Problem Acquired hammer toe of left foot (9434336426084563 ) Other hammer toe(s) (acquired), left foot (M20.42) Active confirmed Response to treatment, Improvemen t Problem Polyneuropathy due to diabetes mellitus type I (951900095) Type 1 diabetes mellitus with diabetic polyneuropathy (E10.42) Active confirmed Vital Signs Blood pressure diastolic 65 mm Hg 02/09/2025 Height 5ft 8in in 02/09/2025 Blood pressure systolic 130 mm Hg 02/09/2025 Weight 245 lbs 02/09/2025 BMI 37.25 kg/m2 02/09/2025 Procedures Procedure Date Ordered Date Performed Result Body Sit e 51754-GFVZKYP NAIL, 1-5 07/28/2024 N/A 05682-MKKT SKIN LESIONS, OVER 4 07/28/2024 N/A S6851-ISMSTVML DYSTROPHIC NAILS ANY # 07/28/2024 N/A 91440-ODGZRKT NAIL, 1-5 11/03/2024 N/A 76721-CLUA SKIN LESIONS, OVER 4 11/03/2024 N/A H9187-AZIZPNQW DYSTROPHIC NAILS ANY # 11/03/2024 N/A 44604-WQQOBSD NAIL, 1-5 02/09/2025 N/A 00154-OFBN SKIN LESIONS, OVER 4 02/09/2025 N/A S4593-WOGUCTJN DYSTROPHIC NAILS ANY # 02/09/2025 N/A Encounters Encounter Location Date Provider Diagnosis [address] [address] 04/27/2024 Ced Hernandez Type 1 diabetes mellitus with diabetic polyneuropathy E10.42 ; Skin disease L98.9 ; Hallux valgus (acquired), left foot M20.12 ; Tinea unguium B35.1 ; Pain in right toe(s) M79.674 ; Pain in left toe(s) M79.675 and Ingrowing nail L60.[address] [address] 07/28/2024 Andrzej Camargo Type 1 diabetes mellitus with diabetic polyneuropathy E10.42 ; Tinea unguium B35.1 ; Other hammer toe(s) (acquired), right foot M20.41 and Other hammer toe(s) (acquired), left foot M20.[address] [address] 11/03/2024 Andrzejjuan miguel DailyRaman Type 1 diabetes mellitus with diabetic polyneuropathy E10.42 ; Tinea unguium B35.1 ; Other hammer toe(s) (acquired), right foot M20.41 and Other hammer toe(s) (acquired), left foot M20.[address] [address] 02/09/2025 Andrzej Raman Type 1 diabetes mellitus with diabetic polyneuropathy E10.42 ; Tinea unguium B35.1 and Xerosis of skin L85.3 Assessments Encounter Date Diagnosis (ICD Code) Assessment Notes Treatment Notes Treatment Clinical Notes Section Notes 04/27/2024 Type 1 diabetes mellitus with diabetic polyneuropathy (ICD-10 - E10.42) 07/28/2024 Tinea unguium (ICD-10 - B35.1) 07/28/2024 Type 1 diabetes mellitus with diabetic polyneuropathy (ICD-10 - E10.42) 11/03/2024 Type 1 diabetes mellitus with diabetic polyneuropathy (ICD-10 - E10.42) 11/03/2024 Tinea unguium (ICD-10 - B35.1) 02/09/2025 Type 1 diabetes mellitus with diabetic polyneuropathy (ICD-10 - E10.42) 02/09/2025 Tinea unguium (ICD-10 - B35.1) 11/03/2024 Other hammer toe(s) (acquired), right foot (ICD-10 - M20.41) Response to treatment,Impro vement 07/28/2024 Other hammer toe(s) (acquired), right foot (ICD-10 - M20.41) Patient Educated with: DIABETIC FOOT CARE INSTRUCTIONS. pdf (DIABETIC FOOT CARE INSTRUCTIONS. pdf) 04/27/2024 Skin disease (ICD-10 - L98.9) 04/27/2024 Hallux valgus (acquired), left foot (ICD-10 - M20.12) 07/28/2024 Other hammer toe(s) (acquired), left foot (ICD-10 - M20.42) 11/03/2024 Other hammer toe(s) (acquired), left foot (ICD-10 - M20.42) Response to treatment,Impro vement 02/09/2025 Xerosis of skin (ICD-10 - L85.3) 04/27/2024 Tinea unguium (ICD-10 - B35.1) 04/27/2024 Pain in right toe(s) (ICD-10 - M79.674) 04/27/2024 Pain in left toe(s) (ICD-10 - M79.675) 04/27/2024 Ingrowing nail (ICD-10 - L60.0) Plan Of Treatment Pending Test Test Name Order Date X ray : Foot, left 3V 12/05/2022 80988-HJGGOUA NAIL, 1-5 11/03/2024 86044-JCJIHKK NAIL, 1-5 02/09/2025 10619-GHMDTVS NAIL, 1-5 07/28/2024 52941-YPDZEDU SKIN/TISSUE 12/05/2022 19950-HDZYCQS SKIN/TISSUE 01/09/2023 60720-BAJP SKIN LESIONS, OVER 4 02/08/20 23 77208-FJJT SKIN LESIONS, OVER 4 12/06/19 23 24351-UEMU SKIN LESIONS, OVER 4 07/28/20 24 19188-UESV SKIN LESIONS, OVER 4 11/03/19 86066-FWXW SKIN LESIONS, OVER 4 02/10/20 25 A0417-VEWXGUZA DYSTROPHIC NAILS ANY # P7397-BYHRNNUG DYSTROPHIC NAILS ANY # N6151-PJQXBWTO DYSTROPHIC NAILS ANY # N6877-BBIEXBNV DYSTROPHIC NAILS ANY # S2181-VBHOORQH DYSTROPHIC NAILS ANY # Next Appt Details Provider Name:Andrzej Camargo , 05/18/2025 03:15:00 PM, [address] [place] [address], [phone], Insurance Providers Payer Name Payer Address Payer Phone Subscriber Number Group Number Insured Name Patient Relationship to Insured Coverage Start Date Coverage End Date [employer] PPO [address] [place] [phone] [id number] Kirby Christianson Self - patient is the insured Medical (General) History Medical History History ICD Code Back,Hip,and Knee pain Diabetic type ll Poor circulation Stroke Surgical History Surgery Date(Month/Year) back surgery- Spine L5 03/06 cataract surgery appendectomy right leg infection- [facility] 03/2024 Hospitalization History Reason Date(Month/Year)
--- OUTSIDE RECORDS SUMMARY | 2025-03-29 14:15 | XMS_ITS | Encounter Summary ---
Author Organization [facility] Address [address] [place] [address] Care Team Providers Care Analysis Analyst Name Role Phone Deepthi Mayes MD Primary Care Provider [phone] [facility], Pcp Primary Care Provider Unavailabl Deepthi Licona MD Primary Care Provider [phone] Manan Reinoso Primary Care Provider Unavailab Thea Graham PA-C Unavailable Unavailab Nasir Mullins MD Unavailable Trina Dc NP Unavailable Unavailab le Reason for Visit * Reason Comments E-prescribe Rx Request Encounter Details Date Type Department Care Team Description 10/15/2018 Refill Adult Medicine [address] [id number] Lisa Beatty NP E-prescribe Rx Request Social History Tobacco Use Types Packs/Day Years Used Date Smoking Tobacco: Never Smokeless Tobacco: Never Alcohol Use Standard Drinks/Week Comments Yes 0 (1 standard drink = 0.6 oz pur e alcohol) 14 drinks per month Sex Assigned at Date Recorded Not on file Job Start Date Occupation Industry Not on file Not on file Not on file documented as of this encounter Miscellaneous Notes * Telephone Encounter - Miladys Ziegler M.A. - 10/15/2018 9:09 AM EST Lab Results Component Value Date HGBA1C 9.2 06/18/2018 MALBUR 59.7 03/13/2018 MALBCR 112.6 03/13/2018 CHOL 151 03/13/2018 LDL 81 03/13/2018 HDL 32 03/13/2018 TRIG 193 03/13/2018 GLU 301 08/30/2017 CREAT 1.2 06/18/2017 * Telephone Encounter - Nae Veroniqueciralichajoycelyn - 10/15/2018 9:01 AM EST Patient would like script to be: E-PRESCRIBED/FAXED TO PHARMACY WHEN WAS THE PATIENT'S LAST APPOINTMENT IN ADULT MEDICINE? 03/26/18 WHEN WAS THE LAST TIME THE PATIENT SAW THEIR PCP? Same as above Does patient have an upcoming appointment? Letter sent to schedule an appt (THE MEDICATION REQUESTED IS ON THE MED LIST ABOVE) All of the medications requested were on the CURRENT MEDS list Did you check the Pharmacy information above?: YES Patient wants: 30 -day supply Is this a mail order prescription request ? NO If the refill is from a FAXED refill request what is the RX # listed on the fax? N/A Patients current insurance carrier is: [place] / [place] / Product Type: MEDICARE [id number] documented in this encounter Plan of Treatment Not on file documented as of this encounter Visit Diagnoses Not on filedocumented in this encounter Care Teams Analysis Analyst Relationship Specialty Start Date End Date Deepthi Mayes MD [address] [place] [id number] PCP - General Internal Medicine 09/01/15 04/05/19 [facility] [address] [address] PCP - General Internal Medicine 04/06/19 04/14/19 Deepthi Mayes MD [address] [place] [address] PCP - General Internal Medicine 04/15/19 11/22/20 Manan Reinoso [address] [place], [place] [id number] PCP - General Internal Medicine 11/23/20 Thea Yoder PA-C [address] [place] [address] Cardiology 04/13/21 Nasir Fry MD [address] [place] [address] High Pressure Boiler Operator Cardiovascular Disease 07/21/21 Trina Dc NP [address] [place], [place] [id number] Specialist Cardiology 07/21/21 documented as of this encounter
--- OUTSIDE RECORDS SUMMARY | 2025-03-29 14:15 | XMS_ITS | Encounter Summary ---
Author Organization [employer] Address [address] [place] [address] [address] [place] [address] Care Team Providers Care Carpenters Helper Name Role Phone Unavailable Primary Care Provider Unavailabl e Encounter Details Date Type Department Care Team (Latest Contact Info) Description 08/10/2019 Abstract [facility] CONVERSIONS Dental, Provider, DDS Social History [...]
--- NOTE | 2025-04-14 14:49 | HO.ANESPROP2 ---
Documented by User: Yolanda Hudson NP 04/14/25 15:00 HPI - Anesthesia Eval Consult details Narrative: 74yo M for Upper Endoscopy and Colonoscopy Eliquis for Hx multiple CVA and PE. Coag w/u negative Some residual requiring walker for ambulation Neuro preop eval without contraindications to proceed Follows [facility] [place] Cardiology for CAD s/p stenting, hx CVA, possible PAF. Last office eval 07/2024 - stable 1 year routine visit [facility] Active Problems Active Problems: All Active Problems Pre-op exam (Acute) Dysphagia (Acute) Anemia (Acute) PAF (paroxysmal atrial fibrillation) (Acute) Orthostatic hypotension (Acute) History of pulmonary embolism (Acute) Cellulitis of leg, right (Acute) Erectile dysfunction associated with type 2 diabetes mellitus (Acute) Cellulitis of right leg (Acute) Cellulitis of right leg (Acute) History of colon polyps (Acute) Chronic diarrhea (Acute) Anticoagulated (Acute) Change in bowel function (Acute) Pharyngitis (Acute) Traumatic hematoma of testicle (Acute) Gross hematuria (Acute) Urinary urgency (Acute) Elevated PSA (Acute) Nocturia more than twice per night (Acute) BPH w urinary obs/LUTS (Acute) Hyperlipidemia (Acute) GERD (gastroesophageal reflux disease) (Acute) Hypertension (Acute) Vitamin B12 deficiency (Acute) Vitamin D deficiency (Acute) CKD (chronic kidney disease) (Acute) History of transient ischemic attack and cerebral infarction (Acute) Insulin dependent type 2 diabetes mellitus (Acute) Pulmonary embolism (Acute) Coronary artery disease (Acute) CVA (cerebral vascular accident) (Acute) Atherosclerotic cardiovascular disease (Acute) Osteomyelitis (Acute) Past Medical History Medical History (Updated 04/14/25 @ 14:10 by Shawna Do RN) Hyperlipidemia GERD (gastroesophageal reflux disease) Hypertension Vitamin B12 deficiency Vitamin D deficiency CKD (chronic kidney disease) History of transient ischemic attack and cerebral infarction Insulin dependent type 2 diabetes mellitus Pulmonary embolism Coronary artery disease Atherosclerotic cardiovascular disease CVA (cerebral vascular accident) DVT (deep venous thrombosis) BPH (benign prostatic hyperplasia) Frequency-urgency syndrome Subacute osteomyelitis of right foot Enlarged prostate without lower urinary tract symptoms (luts) History of elevated PSA Family History Family History Mother Heart attack Father Diabetes Stroke Surgical History Surgical History History of surgery Social History Social History Household Members: Family Housing: House Are you a primary critical care unit manager to a significant other at home: No Do you presently have visiting nurse or other home services: No Alcohol intake: current Alcohol intake frequency: does not drink Patient Tobacco Use Status: Never used Tobacco Second Hand Smoke Exposure: No Use of substances other than those prescribed or required for medical reasons: No Have you been hit, kicked, punched, or otherwise hurt by someone within the past year? If so, by whom?: No Are you DNR?: No Advance Directives: No Advance Directives Information Provided: Yes Advance Directives on File: No Poor oral hygiene: No service: Yes Current occupational status: retired and disabled Cognitive needs: Yes (walker) Hearing needs: No Vision needs: Yes (reading glasses) Meds Allergies Allergy/AdvReac Type Severity Reaction Status Date / Time almond (ALMONDS) Allergy Severe THROAT Verified 04/12/25 17:06 CLOSES pecan nut (PECAN) Allergy Severe THROAT Verified 04/12/25 17:06 CLOSES Home Medications ?Medication ?Instructions ?Recorded ?Confirmed ?Last Taken ?Type apixaban 5 mg tablet 5 mg PO BID 08/05/20 04/14/25 04/04/24 History metoprolol tartrate 25 mg tablet 12.5 mg PO BID 08/05/20 04/14/25 03/01/24 09:00 History pantoprazole 40 mg tablet,delayed 40 mg PO DAILY@0630 08/05/20 04/14/25 03/01/24 07:00 History release gabapentin 100 mg capsule 100 mg PO TID PRN NEUROPATHY 05/05/21 04/14/25 Unknown History magnesium oxide 400 mg (241.3 mg 400 mg PO BID@0900,1700 07/11/21 04/14/25 03/01/24 09:00 History magnesium) tablet midodrine 10 mg tablet 10 mg PO BID@0900,1700 08/31/22 04/14/25 03/01/24 09:00 History pen needle, diabetic 31 gauge x #50 ea 08/31/22 04/12/25 Unknown History 11/29 (Easy Touch) rosuvastatin 40 mg tablet 40 mg PO BEDTIME 08/31/22 04/14/25 Unknown History insulin glargine 100 unit/mL (3 38 unit subcut BID 12/05/22 04/14/25 04/05/24 History mL) subcutaneous pen (Lantus Solostar U-100 Insulin) cholecalciferol (vitamin D3) 25 25 mcg PO DAILY 03/01/24 04/14/25 03/01/24 09:00 History mcg (1,000 unit) tablet (Vitamin D3) cyanocobalamin (vitamin B-12) 500 500 mcg PO DAILY 03/01/24 04/14/25 03/01/24 09:00 History mcg tablet diphenoxylate-atropine 2.5 2 tab PO TID PRN Diarrhea 03/01/24 04/14/25 Unknown History mg-0.025 mg tablet finasteride 5 mg tablet 5 mg PO DAILY 03/01/24 04/14/25 03/01/24 09:00 History insulin aspart U-100 100 unit/mL 30 unit subcut TID 03/01/24 04/14/25 04/05/24 History subcutaneous solution (Novolog U-100 Insulin aspart) aspirin 81 mg tablet,delayed 81 mg PO DAILY 04/05/24 04/14/25 Unknown History release hydrocodone 5 mg-acetaminophen 300 1 tab PO DAILY PRN Pain 04/12/25 04/14/25 Unknown History mg tablet loratadine 10 mg tablet (Claritin) 10 mg PO DAILY 04/12/25 04/14/25 Unknown History Exam Pertinent Lab Results Pertinent Lab Results: Laboratory Tests 10/13/24 11:30 WBC 7.2 Hgb 14.9 Hct 43.7 Plt Count 258 Sodium 139 Potassium 4.8 Chloride 105 Carbon Dioxide 28 BUN 23 H Creatinine 1.49 H Narrative Narrative: Carotid Doppler 02/2025 IMPRESSION: Normal internal carotid velocities, no significant stenosis (0-49% stenosis). Significance indeterminate elevation velocity of the left external carotid artery. This raises the possibility of stenosis. ECHO 2023 Conclusions: - The left ventricular systolic function is normal. The calculated ejection fraction is 63% by biplane method. - No obvious valvular pathology seen on this study. cardiac catheterization in 2019; two-vessel CAD with progressive branch vessel disease of small diagonals. Heavily calcified LAD; not significantly changed from 2010. Previous stents in circumflex, RPL. Assessment and Plan Assessment Anesthesia Assessment: Chart Reviewed Documented by User: Jamila Babcock MD 04/16/25 08:29 [facility] Past Medical History Medical History (Updated 04/14/25 @ 14:10 by Shawna Do RN) Hyperlipidemia GERD (gastroesophageal reflux disease) Hypertension Vitamin B12 deficiency Vitamin D deficiency CKD (chronic kidney disease) History of transient ischemic attack and cerebral infarction Insulin dependent type 2 diabetes mellitus Pulmonary embolism Coronary artery disease Atherosclerotic cardiovascular disease CVA (cerebral vascular accident) DVT (deep venous thrombosis) BPH (benign prostatic hyperplasia) Frequency-urgency syndrome Subacute osteomyelitis of right foot Enlarged prostate without lower urinary tract symptoms (luts) History of elevated PSA Family History Family History Mother Heart attack Father Diabetes Stroke Family history of problems with anesthesia: No Surgical History Surgical History History of surgery History of Problems with Anesthesia: No Social History Social History Household Members: Family Housing: House Are you a primary critical care unit manager to a significant other at home: No Do you presently have visiting nurse or other home services: No Alcohol intake: current Alcohol intake frequency: does not drink Patient Tobacco Use Status: Never used Tobacco Second Hand Smoke Exposure: No Use of substances other than those prescribed or required for medical reasons: No Have you been hit, kicked, punched, or otherwise hurt by someone within the past year? If so, by whom?: No Are you DNR?: No Advance Directives: No Advance Directives Information Provided: Yes Advance Directives on File: No Poor oral hygiene: No service: Yes Current occupational status: retired and disabled Cognitive needs: Yes (walker) Hearing needs: No Vision needs: Yes (reading glasses) Meds Allergies Allergy/AdvReac Type Severity Reaction Status Date / Time almond (ALMONDS) Allergy Severe THROAT Verified 04/12/25 17:06 CLOSES pecan nut (PECAN) Allergy Severe THROAT Verified 04/12/25 17:06 CLOSES Home Medications ?Medication ?Instructions ?Recorded ?Confirmed ?Last Taken ?Type apixaban 5 mg tablet 5 mg PO BID 08/05/20 04/14/25 04/04/24 History metoprolol tartrate 25 mg tablet 12.5 mg PO BID 08/05/20 04/14/25 03/01/24 09:00 History pantoprazole 40 mg tablet,delayed 40 mg PO DAILY@0630 08/05/20 04/14/25 03/01/24 07:00 History release gabapentin 100 mg capsule 100 mg PO TID PRN NEUROPATHY 05/05/21 04/14/25 Unknown History magnesium oxide 400 mg (241.3 mg 400 mg PO BID@0900,1700 07/11/21 04/14/25 03/01/24 09:00 History magnesium) tablet midodrine 10 mg tablet 10 mg PO BID@0900,1700 08/31/22 04/14/25 03/01/24 09:00 History pen needle, diabetic 31 gauge x #50 ea 08/31/22 04/12/25 Unknown History 11/29 (Easy Touch) rosuvastatin 40 mg tablet 40 mg PO BEDTIME 08/31/22 04/14/25 Unknown History insulin glargine 100 unit/mL (3 38 unit subcut BID 12/05/22 04/14/25 04/05/24 History mL) subcutaneous pen (Lantus Solostar U-100 Insulin) cholecalciferol (vitamin D3) 25 25 mcg PO DAILY 03/01/24 04/14/25 03/01/24 09:00 History mcg (1,000 unit) tablet (Vitamin D3) cyanocobalamin (vitamin B-12) 500 500 mcg PO DAILY 03/01/24 04/14/25 03/01/24 09:00 History mcg tablet diphenoxylate-atropine 2.5 2 tab PO TID PRN Diarrhea 03/01/24 04/14/25 Unknown History mg-0.025 mg tablet finasteride 5 mg tablet 5 mg PO DAILY 03/01/24 04/14/25 03/01/24 09:00 History insulin aspart U-100 100 unit/mL 30 unit subcut TID 03/01/24 04/14/25 04/05/24 History subcutaneous solution (Novolog U-100 Insulin aspart) aspirin 81 mg tablet,delayed 81 mg PO DAILY 04/05/24 04/14/25 Unknown History release hydrocodone 5 mg-acetaminophen 300 1 tab PO DAILY PRN Pain 04/12/25 04/14/25 Unknown History mg tablet loratadine 10 mg tablet (Claritin) 10 mg PO DAILY 04/12/25 04/14/25 Unknown History Exam Airway Mallampati Class: III TM Dist: >3cm Neck ROM: Full Assessment and Plan Assessment Anesthesia Assessment: Anesthesia Plan Discussed Final Anesthetic Review Family History of Problems with Anesthesia: No History of Problems with Anesthesia: No NPO: Yes ASA Class: III Final Preanesthetic Review: No Changes in Pt Med Stat, Meds/Allgs Chart Reviewed, Consent Obtained/Reviewed and Anes Risks/Benef Reviewed Patient Risk: Intermediate Procedure Risk: Low Anesthetic Plan Anesthetic Plan: TIVA Disposition: Standard PACU
[2025-04-16 07:28] VITALS: BMI 37.8
[2025-04-16 07:40] VITALS: BP 148/71; PULSE 65; RESP 16; TEMP 36.2; O2SAT 96
[2025-04-16] MEDS: Lactated Ringers 1,000 ML 100 ML IVCONT (07:49)
--- NOTE | 2025-04-16 08:37 | MHC.SHP ---
Pre-Procedural Eval Section A - 24 Hr Update-Section A only Date of Service: 04/16/25 Section B - Complete if H&P > 30 days Chief Complaint: anemia,hx adenomatous colon,dysphagia Details of Present Illness: Atherosclerotic cardiovascular disease Osteomyelitis CVA (cerebral vascular accident) DVT (deep venous thrombosis) BPH (benign prostatic hyperplasia) Frequency-urgency syndrome Subacute osteomyelitis of right foot Enlarged prostate without lower urinary tract symptoms (luts) History of elevated PSA Present Medications: see Short Stay Collaborative assessment Allergies: Allergies Allergy/AdvReac Type Severity Reaction Status Date / Time almond (ALMONDS) Allergy Severe THROAT Verified 04/12/25 17:06 CLOSES pecan nut (PECAN) Allergy Severe THROAT Verified 04/12/25 17:06 CLOSES Review of Systems Review of Systems Comment: Ten point ROS negative Exam Exam Comment: Gen appear: No acute distress HEENT: no icterus Chest: No overt resp distress Abd: soft, nontender, nondistended Psych: Stable affect, answering questions appropriately Neuro: A/Ox3 noted to move all extremities spontaneously Ext: no peripheral edema Plan Diagnosis/Plan: Unchanged I have reviewed the history and physical and performed a pertinent physical examination on my patient. No changes have occurred unless specified. Time Spent With Patient Time: Total time managing care of this patient today ____ minutes.
--- NOTE | 2025-04-16 09:22 | P.OPN-COLO_ITS ---
Colonoscopy Operative Note Operative Note Date of Service: 04/16/25 Narrative: Procedure: Upper endoscopy and colonoscopy Indication: Dysphagia, anemia, hx of polyps Endoscopist: Izzy Biswas MD Anesthesia Provider: Dr Jamila Babcock Anesthesia type: MAC Instrument: [id number] and [id number] EGD Procedure:?? The procedure, indications, preparation and potential complications were reviewed with the patient, who indicated understanding and gave written informed consent to proceed. The endoscope was introduced through the mouth, and advanced to the 2nd part of the duodenum. The mucosa was carefully examined on slow withdrawal of the endoscope. The patient tolerated the procedure well. There were no immediate complications.? EGD Findings:? * Esophagus:? A focal patch of heterotopic mucosa was noted in the upper esophagus. Normal esophageal mucosa was noted otherwise. The Z-line was at 39 cm. There was a small hiatal hernia with the diaphragmatic hiatus at 41 cm. * Stomach:? Erythema and erosions in the body of the stomach. Retroflexion was performed in the cardia that showed Hill grade II hiatal hernia. Random cold forceps biopsies were taken from the stomach. * Duodenum:? Normal duodenal mucosa. Cold forceps biopsies were taken from the duodenal bulb and 2nd portion of the duodenum to rule out celiac sprue. Colonoscopy Procedure:? The patient was then turned for the colonoscopy. A digital rectal exam was performed which was abnormal for hemorrhoids.? A distal attachment cap was affixed to the tip of the scope and the colonoscope was then inserted through the anus and advanced through the colon and advanced to the cecum at 80 cm and terminal ileum.? Appendiceal orifice and ileocecal valve were identified. Mucosa was carefully examined under high definition white light as the instrument was slowly withdrawn in a retrograde panoramic fashion. Retroflexion was performed in rectum. The procedure was not difficult. The quality of the prep was BBPS: 2+3+2 = adequate Withdrawal time 14 minutes Limitations: No limitations Findings: Mucosa: Normal colon and terminal ileum mucosa. Protruding lesions: * One sessile polyp of size 4 mm in transverse colon. Cold snare polypectomy was performed. The polyp was completely removed and retrieved. * Medium internal hemorrhoids without stigmata of recent bleeding. Excavated lesions: * Moderate diverticulosis of whole colon L>R. Impression: 1. Inlet patch 2. Normal esophagus mucosa 3. Gastritis (biopsy) 4. Normal duodenum (biopsy) 5. Normal colon and terminal ileum mucosa 6. One polyp removed 7. Diverticulosis 8. Internal and external hemorrhoids Recommendations:?? * No obvious stricture or narrowing noted during the endoscopy today. Dysphagia likely secondary to dysmotility as indicated on the barium swallow. * Follow-up path results * Resume anticoagulation today * Avoid NSAIDs * H Pylori treatment if biopsies + * Repeat colonoscopy for CRC screening in 7-10 years if pt in good health.
[2025-04-16 09:30] VITALS: BP 114/60; PULSE 66; RESP 16; TEMP 36.4; O2SAT 97
[2025-04-16 09:46] VITALS: BP 143/74; PULSE 65; RESP 18; TEMP 36.4; O2SAT 96
== END 2025-04-16 10:14 | disposition home or self-care (01) ==
PROVIDERS: PCP Internal Medicine; Visit Provider Internal Medicine
PROC: (CPT 45385; principal; 2025-04-16 08:30)
DX: D64.9 Anemia, unspecified (principal); Z86.0101 Personal history of adenomatous and serrated colon polyps; D12.3 Benign neoplasm of transverse colon; K57.30 Diverticulosis of large intestine without perforation or abscess without bleeding; K64.8 Other hemorrhoids; K64.4 Residual hemorrhoidal skin tags; R13.10 Dysphagia, unspecified; K29.50 Unspecified chronic gastritis without bleeding; K52.9 Noninfective gastroenteritis and colitis, unspecified; K44.9 Diaphragmatic hernia without obstruction or gangrene; Q39.8 Other congenital malformations of esophagus; I48.0 Paroxysmal atrial fibrillation; E11.22 Type 2 diabetes mellitus with diabetic chronic kidney disease; I12.9 Hypertensive chronic kidney disease with stage 1 through stage 4 chronic kidney disease, or unspecified chronic kidney disease; N18.9 Chronic kidney disease, unspecified; G89.29 Other chronic pain; I25.10 Atherosclerotic heart disease of native coronary artery without angina pectoris; Z86.711 Personal history of pulmonary embolism; Z86.73 Personal history of transient ischemic attack (TIA), and cerebral infarction without residual deficits; Z79.01 Long term (current) use of anticoagulants; Z79.4 Long term (current) use of insulin; Z79.82 Long term (current) use of aspirin; Z79.899 Other long term (current) drug therapy
CPT/HCPCS: 45385; 43239; 88305; 88313; 88342; J2003; J2704

== ENCOUNTER → 2025-04-16 07:17 | Outpatient (BNV) | payer MEDICARE, MEDICAID, SELFPAY | PROVIDERS: PCP Internal Medicine; Visit Provider Internal Medicine | DX: K29.70 Gastritis, unspecified, without bleeding (principal); K63.5 Polyp of colon; K57.90 Diverticulosis of intestine, part unspecified, without perforation or abscess without bleeding; K64.8 Other hemorrhoids | CPT/HCPCS: 43239; 45385 ==

== ENCOUNTER 2025-06-29 09:07 | Outpatient (AMB) | payer MEDICARE, MEDICAID, SELFPAY ==
--- OUTSIDE RECORDS SUMMARY | 2024-04-27 09:45 | XMS_ITS ---
Author Organization [facility] Address [address] [place] [address] Care Team Providers Care Name Plate Stamping Machine Operator Name Role Phone Pollo Thurston Primary Care Provider Andrzej Ramirez Unavailable [phone] Ced Menchaca Unavailable [phone] REASON FOR VISIT Painful thick toenails which are aggrevated by shoes and causes difficulty standing/walking Medications Medication SIG (Take, Route, Frequency, Duration) Notes Start Date End Date Status Extra Depth Diabetic Shoes with 3 Pair Custom heat-molded multi-density innersoles for 1 year Dx: Active Encounters Encounter Location Date Provider Diagnosis [facility] [address] [place] [address] 04/27/2024 Ced Menchaca Type 1 diabetes mellitus [...] Provider Name:Andrzej Camargo , 2025 10:00:00 AM, [address] [place] [address], [address], Procedure Notes * Category Sub-Category Detail Notes Keratoma Treatment Parring or Cutting o f Benign Hyperkeratotic Lesion(s) 65242 ( >4 Lesions) - The Benign hyperkeratotic [...] as necessary. Patient chooses, no pharmaceutical tx (48668) Nail Reduction Nail Reduction Trimming of dyst rophic nails performed to reduce/remove overall nail length and girth, by manual and electrical means with use of a nail nipper and/or dremel, to more viable healthy nail plate or bed tissue 6-10 (G0127) Progress Notes * Kirby CHRISTIANSONDOB:1950 ( 74 yo M)Acc No.[id number]:04/27/2024 Progress Note Patient: Kirby ALVARENGA Provider: Lmaont Hernandez DPM :1950 A ge:73 Y S ex:Male Date:04/27/2024 Address: [address], [address] [facility] Pcp:Pollo Thurston Subjective: * Chief Complaints: * [...] enies. C ardiovascular: Pacemaker d enies. M WEB PORTAL DEVELOPER d enies. W PW d enies. C [...] as necessary. Patient chooses, no pharmaceutical tx (67385). K eratoma Treatment: Parring or Cutting of [...] SKIN LESIONS, OVER 4, Modifiers: XS , 36309 DEBRIDE NAIL, 1-5, Modifiers: XS , G0127 [...] 0 04/27/2024 Generated for Zachary wells/Concepcion/Jasmeet on: 09:48 AM EDT History and Physical Notes * HPI [...]
--- OUTSIDE RECORDS SUMMARY | 2025-06-24 15:30 | XMS_ITS | Encounter Summary ---
Author Organization [facility] Address [address] [place] [address] Care Team Providers Care Faculty I On Call Medical Assistant Name Role Phone Pollo Thurston MD Primary Care Provider +1- [phone] Reason for Visit * Reason Comments Wound Care Encounter Details Date Type Department Care Team (Late st Contact Info) Description 06/24/2025 3:30 PM EDT Office Visit [facility] [address] [place] [phone] Sergio Rodriguez MD [address] [place] [address] Type 2 diabetes mellitus with foot ulcer (CODE) ([facility] V24, [facility] V28) (Primary Dx); Non-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 layer exposed ([facility] V24, [facility] V28) Social History Tobacco Use Types Packs/Day [...] any questions or concerns, please contact the [facility] at . Follow up(s)/ Referrals: Infectious Disease: [facility]- pending appt [facility] [address] [place] [address] -Arterial ultrasound- Appoint 08/23/25 at 1:30P at [facility] [address], [address] [...] please remove / unwrap compression and notify [facility] at . ) [...] of right foot with fat layer exposed ([facility] V24, [facility] V28); Type 2 diabetes mellitus with foot ulcer (CODE) ([facility] V24, [facility] V28) Images from the original note were not included. [facility] [place] [address] Office Visit Visit Date: 06/24/2025 Patient Name: [...] right lower extremity which was treated by [facility] tacitly since been discharged from [...] doxycycline and levofloxacin based on recommendations from [facility] infectious disease. He has been taking these [...] should be considered if clinically warranted. Code 77322 -------- FINAL REPORT -------- Dictated By: Eddie [...] refer to ID and back to his pharmacist per diem. Patient has appt 06/02/25 Assessment and Plan: Type 2 diabetes mellitus with foot ulcer (CODE) ([facility] V24, [facility] V28) (Primary) Non-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 layer exposed ([facility] V24, [facility]) Other orders - Debridement Diabetic foot wound [...] Moderate Treatments Cleansed Cleansed;Other (Comment) Dressing Foam Alginate;[place] Offloading;Gauze Dressing Status Removed Removed Wound Bed [...] any questions or concerns, please contact the [facility] [place] at . Follow up(s)/ Referrals: Infectious Disease: [facility] Infect[facility]- pending appt [facility] [address] [place] [address] -Arterial ultrasound- Appoint 08/23/25 at 1:30P at [facility] [address], [address] [...] please remove / unwrap compression and notify [facility] [place] at . ) N/A Offloading: Orthofelt, Wear [...] Discharge Patient directed to check out at vest front presser and collect visit summary with wound care [...] Description 07/01/2025 3:15 PM EDT Clinical Support [facility] [address] [place] [address] 08/23/2025 1:30 PM EST Ancillary Procedure [facility] - [address] [address] documented as of this encounter Goals Goal [...] 2 diabetes mellitus with foot ulcer (CODE) ([facility] V24, [facility] V28) Non-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 layer exposed ([facility] V24, [facility] V28) documented in this encounter Results * [...] 2 diabetes mellitus with foot ulcer (CODE) ([facility] V24, [facility] V28)- Primary Non-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 layer exposed ([facility] V24, [facility] V28) documented in this encounter Additional Health [...] documented as of this encounter Care Teams Faculty I On Call Medical Assistant Relationship Specialty Start Date End Date Pollo Thurston MD [address] [place] [address] PCP - General Internal Medicine 06/02/25 documented as of this encounter
[2025-06-29 09:17] VITALS: BP 130/82; PULSE 62; RESP 16; TEMP 36.1; O2SAT 98; BMI 38.6
--- NOTE | 2025-06-29 09:17 | A.OFFPC_ITS ---
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 Required: No Accompanied by: Self / Same As Patient Allergies almond (ALMONDS) Allergy (Severe, Verified 06/29/25 10:20) THROAT CLOSES pecan nut (PECAN) Allergy (Severe, Verified 06/29/25 10:20) THROAT CLOSES Medication List - Last Reconciled 06/29/25 by Ling Callaway PA-C apixaban 5 mg PO BID aspirin 81 mg PO DAILY cholecalciferol (vitamin D3) (Vitamin D3) 25 mcg PO DAILY cyanocobalamin (vitamin B-12) 500 mcg PO DAILY finasteride 5 mg PO DAILY gabapentin 100 mg PO TID PRN hydrocodone-acetaminophen 5-300 mg 1 tab PO DAILY PRN insulin aspart U-100 (Novolog U-100 Insulin aspart) 30 units subcut TID insulin glargine (Lantus Solostar U-100 Insulin) 38 units subcut BID loratadine (Claritin) 10 mg PO DAILY magnesium oxide 400 mg PO BID@0900,1700 metoprolol tartrate 12.5 mg PO BID midodrine 10 mg PO BID@0900,1700 pantoprazole 40 mg PO DAILY@0630 pen needle, diabetic (Easy Touch) As directed rosuvastatin 40 mg PO BEDTIME Tobacco use date assessed: 06/29/25 Dental Screening Dental Screen Date: 06/29/25 Did you have a dental visit in the last 12 months?: Yes Did you have a dental problem in the last 6 months where you did not have access to dental care?: Yes Was dental information given to patient?: Patient has dentist HPI 3 month Follow up HPI Details The patient is a 74-year-old male presenting with a three-month follow- up for diabetes management. His last hemoglobin A1c was 6.7% in September, and he is currently on insulin therapy with Novolog and Lantus. He also takes metoprolol for hypertension and rosuvastatin for hyperlipidemia. The patient has a history of chronic kidney disease with a creatinine level of 1.49 mg/dL, BUN of 23 mg/dL, and GFR of 46 mL/min/1.73m?, which has been stable. He does not currently see a bar machine operator for this condition. The patient reports chronic back pain, for which he has undergone surgery four years ago. He is currently on hydrocodone for pain management, but there is a plan to refer him to pain management for alternative therapies. He also has benign prostatic hyperplasia and is on finasteride. Social History - Exercise: Walks three miles daily for three to four days a week. [facility], LAT[facility] Medical History (Updated 06/29/25 @ 10:26 by Ling Callaway PA-C) Chronic back pain Chronic pain syndrome Stroke due to occlusion of left anterior cerebral artery History of CVA in adulthood Hyperlipidemia GERD (gastroesophageal reflux disease) Hypertension Vitamin B12 deficiency Vitamin D deficiency CKD (chronic kidney disease) History of transient ischemic attack and cerebral infarction Insulin dependent type 2 diabetes mellitus Pulmonary embolism Coronary artery disease Atherosclerotic cardiovascular disease CVA (cerebral vascular accident) DVT (deep venous thrombosis) BPH (benign prostatic hyperplasia) Frequency-urgency syndrome Subacute osteomyelitis of right foot Enlarged prostate without lower urinary tract symptoms (luts) History of elevated PSA Surgical History History of surgery Family History Mother Heart attack Father Diabetes Stroke Social History Household Members: Family Housing: House Are you a primary direct care supervisor to a significant other at home: No Do you presently have visiting nurse or other home services: No Alcohol intake: current Alcohol intake frequency: does not drink Patient Tobacco Use Status: Never used Tobacco Second Hand Smoke Exposure: No service: Yes Current occupational status: retired and disabled Cognitive needs: Yes (walker) Hearing needs: No Vision needs: Yes (rx glasses) Questionnaire PHQ-9 Over the last 2 weeks, how often have you been bothered by any of the following problems? 1. Little interest or pleasure in doing things: not at all 2. Feeling down, depressed, or hopeless: not at all 3. Trouble falling or staying asleep, or sleeping too much: not at all 4. Feeling tired or having little energy: not at all 5. Poor appetite or overeating: not at all 6. Feeling bad about yourself - or that you are a failure or have let yourself or your family down: not at all 7. Trouble concentrating on things, such as reading the newspaper or watching television: not at all 8. Moving or speaking so slowly that other people could have noticed. Or the opposite - being so fidgety or restless that you have been moving around a lot more than usual: not at all 9. Thoughts that you would be better off or of hurting yourself in some way: not at all Total score: 0 Depression Screening Interpretation: Negative Depression Screening Done: Yes 03842 - PHQ-9 Billing: Yes Source: Developed by Drs. Jose Spencer, Sobeida Baez, Reza Emerson and colleagues, with an educational shabbir from [employer]. Thrive Questionnaire Date Thrive assessed: 06/29/25 I am a: Patient What is your living situation today?: I have a steady place to live Within the past 12 months, did the food you bought not last and you didn't have the money to get more?: Never true Within the past 12 months, did you worry whether your food would run out before you got money to buy more?: Never true Do you have trouble paying for medicines?: No Do you have trouble getting transportation to medical appointments?: No Do you have trouble paying your heating and electricity bill?: No Do you have trouble taking care of your child, family member or friend?: No Do you have trouble with day-to-day activities such as bathing, preparing meals, shopping, managing finances, etc.?: No Are you currently unemployed and looking for a job?: No Are you interested in more education?: No Please select the resources that you would like help with: None Currently or been in a relationship where the following occur: No concerns reported THRIVE Score: 0 AUDIT C Alcohol Use Questionnaire (AUDIT-C) 1. How often do you have a drink containing alcohol?: Never 3. How often do you have six or more drinks on one occasion?: Never Total Score: 0 Score Reviewed/Action Taken: No LATOSHA-7 AMB Questionnaire LATOSHA-7 Date LATOSHA - 7 assessed: 06/29/25 Feeling nervous, anxious, or on edge: 0 = Not at all Not being able to stop or control worryin = Not at all Worrying too much about different things: 0 = Not at all Trouble relaxin = Not at all Being so restless that it is hard to sit still: 0 = Not at all Becoming easily annoyed or irritable: 0 = Not at all Feeling afraid as if something awful might happen: 0 = Not at all Total LATOSHA-7 score (0-4 normal; 5-9 mild; 10-14 moderate; 15-21 severe): 0 Source: Developed by Drs. Jose Spencer, Sobeida Baez, Reza Emerson and colleagues, with an educational shabbir from [employer]. LATOSHA-7 Assessment Billing LATOSHA-7 Assessment Tool: LATOSHA-7 Assessment 32271 Review of Systems Const Details: - Musculoskeletal: Reports chronic back pain. All systems reviewed & are unremarkable except as noted in HPI and below Physical exam (Primary Care) Vital Signs: Last Vital Signs Temp 96.9 F 06/29/25 09:17 Pulse 62 06/29/25 09:17 Resp 16 06/29/25 09:17 BP 130/82 06/29/25 09:17 Pulse Ox 98 06/29/25 09:17 Oxygen Delivery Method Room Air 06/29/25 09:17 Care Plan Goal for BP management: <140/90 at Goal BMI result Body Mass Index 38.6 BMI Assessment/Plan discussion: High BMI High, discussed plan: lifestyle, weight reduction, dietary, physical activity, alcohol moderation and other Tobacco/Smoking Status: Tobacco use Status Tobacco use date assessed 06/29/25 06/29/25 09:31 Patient Tobacco Use Status Never used Tobacco 06/29/25 09:31 PHQ-9: PHQ-9 Score PHQ-9: Total score 0 06/29/25 09:56 Depression Screening Interpretation: Negative Thrive Assessment: Date of Thrive Assessment Date Thrive assessed 06/29/25 06/29/25 09:31 Currently or been in a relationship where the following occur: No concerns reported Const Other: Appearance: Alert. Oriented. No acute distress. Head: Normal external exam. Normocephalic. Atraumatic. Eyes: Pupils are equal, round, and reactive to light. Extraocular movements i ntact. Conjunctiva and sclera normal. Eyelids normal. Throat: Pharynx normal. Uvula midline. Moist mucous membranes. Neck: Normal inspection. Neck supple. Full range of motion. Cardiovascular: Normal heart rate and rhythm. Respiratory: No respiratory distress. Painless inspiration. Back: Full range of motion noted. Skin: Skin warm and dry. Normal skin color. Extremities: No lower extremity edema. Extremities exhibit normal range of motion. Neuro: Oriented Walks with a walker Office Procedures Flu Questionnaire Does the patient have a severe egg allergy?: No Does the patient have severe life threatening allergies?: No Does the patient have a fever or illness today?: No Has the patient ever had Guillain-Bernard Syndrome?: No Has the patient ever had any past reaction to a flu shot?: No Results AMB Hemoglobin A1c AMB Hemoglobin A1c 6.8 % Last Edit by VIELKA Maher on 06/29/25 09:57 Immunizations Fluarix [id number] (PF) 45 mcg (15 mcg x 3)/0.5 mL IM syringe Performing Provider: Ling Callaway PA-C [facility] Administered by: VIELKA Maher on 06/29/25 09:41 Dose Route Admin Location Dispensed Lot Number Expiration Date NDC Psychology Fellow 0.5 mL IM Left Deltoid 0.5 mL [id number] 03/15/26 [id number] [facility] VIS Given Date VIS Provided VIS Publication Date 06/29/25 Single Vaccine 24 Eligibility Eligibility Date Funding Source Not [facility] Eligible 06/29/25 Private Results Reviewed Results Reviewed: Laboratory Last Values Hgb A1c (Clinic) 6.8 % (4.0-6.0) H 06/29/25 09:54 - Labs: Hemoglobin A1c was 6.7% in September. - Labs: Creatinine 1.49 mg/dL, BUN 23 mg/dL, GFR 46 mL/min/1.73m?. Coding Level of Care Code Est Pt Level 4 (71816) Complex EM visit Add On G2211 Diagnoses Insulin dependent type 2 diabetes mellitus E11.9; Z79.4 CKD (chronic kidney disease) N18.9 Hypertension I10 BPH (benign prostatic hyperplasia) N40.0 Chronic back pain M54.9; G89.29 Hyperlipidemia E78.5 Additional Codes LATOSHA-7 Assessment Billing - LATOSHA-7 Assessment Tool: LATOSHA-7 Assessment 03675 ([id number]) PHQ-9 - 99635 - PHQ-9 Billing: Yes ([id number]) Assessment & Plan Assessment & Plan (1) Insulin dependent type 2 diabetes mellitus: Code(s): E11.9 - Type 2 diabetes mellitus without complications; Z79.4 - long-term (current) use of insulin Category: Medical Plan: The patient's diabetes management includes monitoring hemoglobin A1c levels, which was 6.7% in September. A1c today 6.8. He is on insulin therapy with Novolog and Lantus, and a follow-up A1c test is planned in three months. (2) CKD (chronic kidney disease): Code(s): N18.9 - Chronic kidney disease, unspecified Category: Medical Plan: The patient has stable chronic kidney disease with a creatinine level of 1.49 mg/dL, BUN of 23 mg/dL, and GFR of 46 mL/min/1.73m?. He does not currently see a bar machine operator, but monitoring of kidney function will continue. (3) Hypertension: Code(s): I10 - Essential (primary) hypertension Category: Medical Plan: The patient is on metoprolol for hypertension management, and his blood pressure is stable. (4) BPH (benign prostatic hyperplasia): Code(s): N40.0 - Benign prostatic hyperplasia without lower urinary tract symptoms Category: Medical Plan: The patient is on finasteride for benign prostatic hyperplasia and will continue with urology follow-ups. (5) Chronic back pain: Code(s): M54.9 - Dorsalgia, unspecified; G89.29 - Other chronic pain Category: Medical Plan: The patient reports chronic back pain managed with hydrocodone. A referral to pain management is planned for exploring alternative therapies. (6) Hyperlipidemia: Code(s): E78.5 - Hyperlipidemia, unspecified Category: Medical Plan: The patient is on rosuvastatin for hyperlipidemia management. Plan Plan Patient was informed and verbally consented to the use of an ambient scribe for clinic note documentation during this visit. 1. Diabetes Mellitus The patient's diabetes management includes monitoring hemoglobin A1c levels, which was 6.7% in September. He is on insulin therapy with Novolog and Lantus, and a follow-up A1c test is planned in three months. 2. Chronic Kidney Disease The patient has stable chronic kidney disease with a creatinine level of 1.49 mg/dL, BUN of 23 mg/dL, and GFR of 46 mL/min/1.73m?. He does not currently see a bar machine operator, but monitoring of kidney function will continue. 3. Hypertension The patient is on metoprolol for hypertension management, and his blood pressure is stable. 4. Benign Prostatic Hyperplasia The patient is on finasteride for benign prostatic hyperplasia and will continue with urology follow-ups. 5. Chronic Back Pain The patient reports chronic back pain managed with hydrocodone b.i.d.. A referral to pain management is planned for exploring alternative therapies. 6. Hyperlipidemia The patient is on rosuvastatin for hyperlipidemia management. During the visit, we discussed the patient's diabetes management, including the importance of monitoring hemoglobin A1c levels and maintaining insulin therapy. We also reviewed his chronic kidney disease status and the need for continued monitoring, despite not currently seeing a bar machine operator. The patient was informed about the plan to refer him to pain management for his chronic back pain to explore alternative therapies. 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 - Follow up with urology for PSA testing and management of benign prostatic hyperplasia. - Continue current medications as prescribed, including insulin, metoprolol, and rosuvastatin. - Complete urine drug test as part of the pain management contract. - Return for a follow-up appointment in three months for diabetes management and review of lab results.
--- OUTSIDE RECORDS SUMMARY | 2025-06-29 09:48 | XMS_ITS | Clinical Summary ---
Author Organization [employer] Address [address] [place] [address] Care Team Providers Care Slot Technician Name Role Phone Unavailable Primary Care Provider Unavailabl e Allergies Active Allergy Reactions Criticality Noted Date Comments [place] Flavoring Agent (Non-Screening) 04/05/2025 Medications gabapentin (Neurontin) 100 MG capsule Take 100 mg by mouth. 4 Active magnesium oxide (Mag-Ox) 400 (240 Mg) MG tablet TAKE ONE TABLET BY MOUTH TWICE DAILY @9AM-5PM 5 Active terazosin (Hytrin) 5 MG capsule TAKE ONE CAPSULE (5 MG) BY MOUTH DAILY AT 9PM AT BEDTIME 5 Active metoprolol tartrate (Lopressor) 25 MG tablet Take 12.5 mg by mouth. 3 Active finasteride (Proscar) 5 MG tablet Take 1 tablet by mouth Once per day. 2 Active pantoprazole (ProtoNix) 40 MG EC tablet Take 40 mg by mouth. 0 Active rosuvastatin (Crestor) 40 MG tablet Take 1 tablet by mouth Once per day. 4 Active midodrine (Proamatine) 10 MG tablet Take 1 tablet by mouth 2 times daily. 1 Active Jardiance 25 MG TAKE ONE TABLET BY MOUTH DAILY AT 9AM Active apixaban (Eliquis) 5 MG tablet Take 5 mg by mouth 2 times daily. Active ibuprofen 600 MG tablet Take 1 tablet (600 mg) by mouth every 6 (six) hours if needed for mild pain for up to 20 doses. 20 tablet 5 Active Additional Information Patient not taking.Reported on 05/12/2025 ibuprofen 400 MG tablet Take 1 tablet (400 mg) by mouth every 6 (six) hours if needed for mild pain for up to 20 doses. 20 tablet 5 Active Additional Information Patient not taking.Reported on 05/12/2025 amoxicillin (Amoxil) 500 MG capsule Take 4 tabs (2 grams) 1 hour prior to dental procedure 12 capsule 5 Active Additional Information Patient not taking.Reported on 05/12/2025 Active Problems Problem Noted Date Diagnosed Date 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 right foot with fat layer exposed 03/03/2025 Chronic venous hypertension (idiopathic) with ulcer and inflammation of right lower extremity 08/04/2024 Corns and callosities 08/04/2024 Diabetes mellitus due to und erlying condition with diabetic autonomic neuropathy 08/04/2024 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 right lower leg with fat layer exposed 08/04/2024 Dyspnea on exertion 09/27/2021 Cerebrovascular accident (CVA) ([facility]) 021 Overview (04/23/2025): Last Assessment & Plan: Does not appear he has had any holter monitoring, it has been mentioned in the past of a questionable irregular HR, Holter was ordered but not completed. He is already on Eliquis but I think it is reasonable to ensure there is not diagnosis of AFIb behind all of this. 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 ([facility]) 10/31/2016 Background diabetic retinopathy 10/20/2015 Depressive disorder 10/20/2015 DM (diabetes mellitus), type 2 with ophthalmic complications 10/20/2015 Diverticulosis 10/20/2015 Overview (04/23/2025): CN 2010 GERD (gastroesophageal reflux disease) 6 History of colon polyps 10/20/2015 Overview (04/23/2025): 10/20/2015 Erectile dysfunction 10/17/2015 BPH (benign prostatic hyperplasia) 10/07/2015 Overview (04/23/2025): Elevated PSA /Laser vaporization with transurethral resection of prostate/ biopsies negative / Dr De La Cruz 2014 Hypercholesteremia 10/07/2015 Overview (04/23/2025): Last Assessment & Plan: Do not see a recent lipid panel, I will order this, goal LDL is less than 70. Encounters Date Type Department Care Team Description 05/12/2025 9:00 AM EDT Office Visit [facility] [address] [place] [address] Anoop David DDS History of tooth extraction, unspecified edentulism class (Primary Dx) 05/11/[address] [facility] [address] [place] [address] Eliecer Romero DMD 04/23/2025 2:00 PM EDT Office Visit [facility] [address] [place] [address] Eliecer Romero DMD Necrosis of dental pulp (Primary Dx) 04/05/2025 2:30 PM EDT Office Visit [facility] [address] [place] [address] Eliecer Romero DMD Non-restorable tooth (Primary Dx); Necrosis of dental pulp from Last 3 Months Social History Tobacco Use Types Packs/Day Years Used Date Smoking Tobacco: Never Smokeless Tobacco: Never Tobacco Cessation:Counseling Given: Not Answered Alcohol Use Standard Drinks/Week Comments Not Currently 0 (1 standard drink = 0.6 oz pur e alcohol) Sex and Gender Information Value Date Recorded Sex Assigned at Male 07/16/2022 10:23 AM EDT Legal Sex Male 10:23 AM EDT Gender Identity Male 07/16/2022 10:23 AM EDT Sexual Orientation Straight 07/16/2022 10 :23 AM EDT Last Filed Vital Signs Vital Sign Reading Time Taken Comments Blood Pressure 124/80 05/12/2025 9:09 AM EDT Pulse 69 04/23/2025 2:07 PM EDT Temperature - - Respiratory Rate - - Oxygen Saturation - - Inhaled Oxygen Concentration - - Weight - - Height - - Body Mass Index - - Plan of Treatment Upcoming Encounters Date Type Department Care Team (Late st Contact Info) Description 07/26/2025 12:45 PM EST Office Visit [facility] [address] [place] [address] Lewis Maldonado Health Maintenance Due Date Last Done Comments CT Colonography 1952 Colonoscopy 1952 Colorectal Cancer Screening 1952 Depression Screening 1952 Diabetes: Hemoglobin A1C 1952 FIT DNA/Cologuard 1952 FIT 1952 FOBT 1952 Lipid Panel 1952 SDOH Screening 1952 Sigmoidoscopy 1952 Diabetes: Foot Exam 1962 Alcohol/Substance Use Screening 1964 Hepatitis C Screening 1970 Diabetes: Urine Protein Screening 1971 RSV Patients and Patients Aged 60 years or older (1 - Risk 60-74 years 1-dose series) 2012 Dental X-Ray: Full Mouth 06/11/2015 06/10/2012 Dental Oral Exam 06/27/2018 12/25/2017, , 11/08/2014, Additional history exists Dental Prophylaxis 02/09/2020 08/10/2019, 0 02/05/2019, 08/06/2018, Additional history exists COVID-19 Vaccine ( season) 2025 09/05/2022, 07/11/2021, 12/17/2020, Additional history exists Influenza Vaccine (#1) 2025 , 06/25/2023, 06/17/2023, Additional history exists Eye Exam 11/05/2025 11/05/2024, 06/25/2024 Dental X-Ray: Bitewings 04/06/2026 04/05/20, 01/08/2025, 02/05/2019, Additional history exists Tobacco Screening 05/12/2026 05/12/2025 DTaP/Tdap/Td Vaccines (4 - Td or Tdap) 07/05/2032 07/05/2022, 03/02/2011, 03/02/2011 Zoster Vaccines Completed 05/15/2018, 12/17, 06/08/2013 Pneumococcal Vaccine: 50+ Years Completed 05/11/2021, 02/03/2019, 05/08/2010, Additional history exists HIB Vaccines Aged Out [...] on patient's age to complete this topic Procedures Procedure Name Priority Date/Time Associated Diagnosis Comments CASE PRESENTATION, DETAILED AND EXTENSIVE TREATMENT PLANNING Routine 05/12/2025 9:00 AM EDT 14 EXTRACTION, ERUPTED TOOTH OR EXPOSED ROOT (ELEVATION/FORCEPS REMOVAL) Routine 05/12/2025 9:00 AM EDT 12 EXTRACTION, ERUPTED TOOTH OR EXPOSED ROOT (ELEVATION/FORCEPS REMOVAL) Routine 05/12/2025 9:00 AM EDT 15 EXTRACTION, ERUPTED TOOTH OR EXPOSED ROOT (ELEVATION/FORCEPS REMOVAL) Routine 05/12/2025 9:00 AM EDT CASE PRESENTATION, DETAILED AND EXTENSIVE TREATMENT PLANNING Routine 04/23/2025 2:00 PM EDT Necrosis of dental pulp PALLIATIVE (EMERGENCY) TREATMENT OF DENTAL PAIN - MINOR PROCEDURE Routine 04/23/2025 2:00 PM EDT Necrosis of dental pulp CASE PRESENTATION, DETAILED AND EXTENSIVE TREATMENT PLANNING Routine 04/05/2025 2:30 PM EDT Necrosis of dental pulp INTRAORAL - PERIAPICAL FIRST RADIOGRAPHIC IMAGE Routine 04/05/2025 2:30 PM EDT Necrosis of dental pulp BITEWING - SINGLE RADIOGRAPHIC IMAGE Routine 04/05/2025 2:30 PM EDT Necrosis of dental pulp PALLIATIVE (EMERGENCY) TREATMENT OF DENTAL PAIN - MINOR PROCEDURE Routine 04/05/2025 2:30 PM EDT Necrosis of dental pulp 14 CROWN - PORCELAIN/CERAMIC Routine 04/05/2025 12:00 AM EDT 14 ROOT CANAL Routine 04/05/2025 12:00 AM EDT 13 EXTRACTION Routine 04/05/2025 12:00 AM EDT PROPHYLAXIS - ADULT Routine 08/10/2019 1 2:00 AM EST PERIODIC ORAL EVALUATION - ESTABLISHED PATIENT Routine 12/25/2017 12:00 AM EDT INTRAORAL - COMPLETE SERIES OF RADIOGRAPHIC IMAGES Routine 06/10/2012 12:00 AM EDT from Last 3 Months or Most Recently Relevant to Health Maintenance Insurance [facility] MEDICAID STAND ADULT
--- OUTSIDE RECORDS SUMMARY | 2025-06-29 09:48 | XMS_ITS | Encounter Summary ---
Author Organization [employer] Address [address] [place] [address] Care Team Providers Care Dish Cloth Inspector Name Role Phone Unavailable Primary Care Provider Unavailabl e Encounter Details Date Type Department Care Team (Latest Contact Info) Description 08/10/2019 Abstract [facility] CONVERSIONS Dental, Provider, DDS Social History [...] Description 07/26/2025 12:45 PM EST Office Visit [facility] [address] [place] [address] Lewis Maldonado documented as of this encounter Visit Diagnoses Not on filedocumented in this encounter
--- OUTSIDE RECORDS SUMMARY | 2025-06-29 09:49 | XMS_ITS | Patient Health Record ---
Author Organization [facility] Address [address] [place] [address] Care Team Providers Care Exchange Teller Name Role Phone Pollo Thurston Primary Care Provider Andzrej Ramirez Unavailable [phone] Allergies No Known Allergies Results Component Value Reference Range Notes HEMOGLOBIN A1C (GLYCOHEMOGLO BIN) Reviewed date:11/03/2024 03:56:03 PM Interpretation: Performing Lab: Notes/Report: HEMOGLOBIN A1C (GLYCOHEMOGLO BIN) Reviewed date:11/03/2024 03:59:03 PM Interpretation: Performing Lab: Notes/Report: HEMOGLOBIN A1C % (HH) 6.7 Reason For Referral No Information Medications Medication SIG (Take, Route, Frequency, Duration) Notes Start Date End Date Status Midodrine HCl Active Metoprolol Tartrate Active Vicodin Active Rosuvastatin Calcium 40 MG 1 tablet Oral ly Once a day; Duration: 30 day(s) Active Pantoprazole Sodium 40 MG 1 tablet Orall y Once a day; Duration: 30 day(s) Active Eliquis 5 MG 1 tablet Orally Twic e a day; Duration: 30 day(s) Active Extra Depth Orthopedic Shoes (1 Pair) with Customized Heat Molded Multidensity Innersoles (3 Pair) as directed Dx: IDDM/Polyneuropathy (E10.42), Hammertoe Foot Deformity (M20.41,M20.42), Preulcerative Skin Lesion(s) (L85.1) 07/28/2024 Active ASA Active Tadalafil 5 MG 1 tablet as needed O rally Once a day; Duration: 30 day(s) Active Jardiance 25 MG 1 tablet Orally Once a day Active Amoxicillin 500 MG Oral; Duration: 7 Days Active Finasteride 5 MG 1 tablet Orally Once a day; Duration: 30 day(s) Active Ammonium Lactate 12 % 1 application Exte rnally to affected areas of dry skin to feet except for between the toes Twice a day; Duration: 30 days Active HumaLOG Active Magnesium 400 MG as directed Orally Active Lantus Active Immunizations Vaccine Route Administration Date Status Comme nts Influenza Unknown 05/17/2022 Administered Influenza Unknown 05/17/2024 Administered COVID-19 Moderna Vaccine Unknown 05/17/2022 Administered [...] Problem Acquired hammer toe of right foot (8606703649988351 ) Other hammer toe(s) (acquired), right foot (M20.41) Active confirmed Response to treatment, Improvemen t Problem Acquired hammer toe of left foot (5054475752616867 ) Other hammer toe(s) (acquired), left foot (M20.42) Active confirmed Response to treatment, Improvemen t Problem Polyneuropathy due to diabetes mellitus type I (778965173) Type 1 diabetes mellitus with diabetic polyneuropathy (E10.42) Active confirmed Problem Skin ulcer of toe of right foot with fat layer exposed (L97.512) Active confirmed Vital Signs Blood pressure diastolic 67 mm Hg 05/18/2025 Height 5ft8in in 05/18/2025 Blood pressure systolic 129 mm Hg 05/18/2025 Weight 240 lbs 05/18/2025 BMI 36.49 kg/m2 05/18/2025 Procedures Procedure Date Ordered Date Performed Result Body Sit e 44682-LKCBWMG NAIL, 1-5 07/28/2024 N/A 16956-ZKNY SKIN LESIONS, OVER 4 07/28/2024 N/A I5309-JRUYYQRJ DYSTROPHIC NAILS ANY # 07/28/2024 N/A 70123-EUFRCTI NAIL, 1-5 11/03/2024 N/A 05050-CQLV SKIN LESIONS, OVER 4 11/03/2024 N/A Q2280-YKEINRZN DYSTROPHIC NAILS ANY # 11/03/2024 N/A 12826-RZLNXMP NAIL, 1-5 02/09/2025 N/A 53242-LIHT SKIN LESIONS, OVER 4 02/09/2025 N/A I7336-CRXEOAGU DYSTROPHIC NAILS ANY # 02/09/2025 N/A 02468-QILTHQI NAIL, 1-5 05/18/2025 N/A 97324-SQJE SKIN LESIONS, OVER 4 05/18/2025 N/A L9293-DGIXKMRC DYSTROPHIC NAILS ANY # 05/18/2025 N/A Encounters Encounter Location Date Provider Diagnosis [address] [address] 07/28/2024 Andrzejjuan miguel Rodier Type 1 diabetes mellitus with diabetic polyneuropathy E10.42 ; Tinea unguium B35.1 ; Other hammer toe(s) (acquired), right foot M20.41 and Other hammer toe(s) (acquired), left foot M20.[address] [address] 11/03/2024 Andrzej Raman Type 1 diabetes mellitus with diabetic polyneuropathy E10.42 ; Tinea unguium B35.1 ; Other hammer toe(s) (acquired), right foot M20.41 and Other hammer toe(s) (acquired), left foot M20.[address] [address] 02/09/2025 Andrzej Raman Type 1 diabetes mellitus with diabetic polyneuropathy E10.42 ; Tinea unguium B35.1 and Xerosis of skin L85.[address] [address] 05/18/2025 Andrzej Raman Type 1 diabetes mellitus with diabetic polyneuropathy E10.42 ; Tinea unguium B35.1 ; Xerosis of skin L85.3 and Skin ulcer of toe of right foot with fat layer exposed L97.512 Assessments Encounter Date Diagnosis (ICD Code) Assessment Notes Treatment Notes Treatment Clinical Notes Section Notes 07/28/2024 Tinea unguium (ICD-10 - B35.1) 07/28/2024 Type 1 diabetes mellitus with diabetic polyneuropathy (ICD-10 - E10.42) 11/03/2024 Type 1 diabetes mellitus with diabetic polyneuropathy (ICD-10 - E10.42) 11/03/2024 Tinea unguium (ICD-10 - B35.1) 02/09/2025 Type 1 diabetes mellitus with diabetic polyneuropathy (ICD-10 - E10.42) 02/09/2025 Tinea unguium (ICD-10 - B35.1) 05/18/2025 Type 1 diabetes mellitus with diabetic polyneuropathy (ICD-10 - E10.42) 05/18/2025 Tinea unguium (ICD-10 - B35.1) 05/18/2025 Xerosis of skin (ICD-10 - L85.3) 11/03/2024 Other hammer toe(s) (acquired), right foot (ICD-10 - M20.41) Response to treatment,Impro vement 07/28/2024 Other hammer toe(s) (acquired), right foot (ICD-10 - M20.41) Patient Educated with: DIABETIC FOOT CARE INSTRUCTIONS. pdf (DIABETIC FOOT CARE INSTRUCTIONS. pdf) 07/28/2024 Other hammer toe(s) (acquired), left foot (ICD-10 - M20.42) 11/03/2024 Other hammer toe(s) (acquired), left foot (ICD-10 - M20.42) Response to treatment,Impro vement 05/18/2025 Skin ulcer of toe of right foot with fat layer exposed (ICD-10 - L97.512) 02/09/2025 Xerosis of skin (ICD-10 - L85.3) Plan Of Treatment Pending Test Test Name Order Date X ray : Foot, left 3V 12/05/2022 02355-SJJXUZS NAIL, 1-5 07/28/2024 28588-NSQYQNS NAIL, 1-5 05/18/2025 80316-FHTZDXX NAIL, 1-5 11/03/2024 36346-OIFRQVE NAIL, 1-5 02/09/2025 11160-KRBTESU SKIN/TISSUE 01/09/2023 50025-BYTGMQJ SKIN/TISSUE 12/05/2022 35349-NWPJ SKIN LESIONS, OVER 4 12/06/19 67250-OHSF SKIN LESIONS, OVER 4 05/18/20 88609-HPBS SKIN LESIONS, OVER 4 11/03/19 54722-CJMG SKIN LESIONS, OVER 4 02/08/20 46339-TFRE SKIN LESIONS, OVER 4 07/28/20 24 66515-JMCA SKIN LESIONS, OVER 4 02/10/20 T1170-DKUSUFWY DYSTROPHIC NAILS ANY # I3669-FOKGNSJF DYSTROPHIC NAILS ANY # Q1529-ACNHSBGW DYSTROPHIC NAILS ANY # P9654-ZKJRPVBG DYSTROPHIC NAILS ANY # X3351-SQEHVJYR DYSTROPHIC NAILS ANY # B6499-OZJQRAPB DYSTROPHIC NAILS ANY # Next Appt Details Provider Name:Andrzej Camargo , 2025 10:00:00 AM, [address] [place], [address], Insurance Providers Payer Name Payer Address Payer Phone Subscriber Number Group Number Insured Name Patient Relationship to Insured Coverage Start Date Coverage End Date [employer] P[employer] [address] [phone] [id number] Kirby Christianson Self - patient is the insured Medical (General) History Medical History History ICD Code Back,Hip,and Knee pain Diabetic type ll Poor circulation Stroke Surgical History Surgery Date(Month/Year) back surgery- Spine L5 03/06 cataract surgery appendectomy right leg infection- [facility] [place] 03/2024 teeth extraction 05/10 Hospitalization History Reason Date(Month/Year)
--- OUTSIDE RECORDS SUMMARY | 2025-06-29 09:49 | XMS_ITS | Clinical Summary ---
Author Organization [facility] Address [address] [place] [address] Phone Care Team Providers Care Pre Press Manager Name Role Phone Pollo Thurtson MD Primary Care Provider [phone] Allergies Active Allergy Reactions Criticality Noted Date Comments Nut - Unspecified Anaphylaxis,Swelling High 01/16/20 16 States pecans or almonds allergy , closes throat up Medications blood sugar diagnostic (Accu-Chek Love Plus test strp) test strip USE TO TEST BLOOD SUGAR ONCE A DAY 12/18/19 19 Active apixaban (ELIQUIS) 5 mg tablet Take by mouth. Activ e aspirin 81 mg EC tablet TAKE ONE TABLET BY MOUTH DAILY AT 9AM 02/09/20 22 Active EPINEPHrine 1 mg/mL kit injection Inject as directed See administration instructions. Active ferrous sulfate 325 mg (65 mg elemental iron) tablet 01/26/20 23 Active empagliflozin (Jardiance) 25 mg tablet Take 1 tablet (25 mg total) by mouth 1 (one) time each day. 03/08/20 21 Active magnesium oxide (MAG-OX) 400 mg (241.3 elemental magnesium) tablet TAKE ONE TABLET BY MOUTH TWICE DAILY @ 9AM & 5PM 02/09/20 22 Active midodrine HCl (MIDODRINE ORAL) Take by mouth. Active metoprolol tartrate (LOPRESSOR) 25 mg tablet Take [...] by mouth 1 (one) time each day. 01/15/20 Active finasteride (PROSCAR) 5 mg tablet Take 1 tablet (5 mg total) by mouth. Active insulin aspart (NovoLOG U-100 Insulin aspart) 100 unit/mL injection Inject 11 Units under the skin. Active insulin glargine (LANTUS) 100 unit/mL injection Inject 55 Units under the skin. 01/11/20 20 Active gabapentin (NEURONTIN) 100 mg capsule Take 1 capsule (100 mg total) by mouth if needed. Active hydrocodone/aceta minophen (VICODIN ORAL) Take 5 mg by mouth if needed. Active doxycycline (MONODOX) 100 mg capsuleIndication s:Type 2 diabetes mellitus with foot ulcer (CODE) ([facility] V24, [facility] V28),Non-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 layer exposed ([facility] V24, [facility] V28),Diabetic polyneuropathy associated with type 2 diabetes mellitus ([facility] V24, [facility] V28),Other chronic osteomyelitis of right foot ([facility] V24, [facility] V28) Take 1 capsule (100 mg total) by mouth 2 (two) times a day for 10 days. Take with at least 8 ounces (large glass) of water, do not lie down for 30 minutes after 20 each 06/02/20 25 025 sulfamethoxazole- trimethoprim (BACTRIM DS,SEPTRA DS) 800-160 mg per tablet Take 1 tablet by mouth 2 (two) times a day for 10 days. 20 each 06/07/20 25 025 Additional Information Patient not taking.Reported on 06/17/2025 Active Problems Problem Noted Date Diagnosed Date Osteomyelitis of right foot ([facility] V24, [facility]/ C V28) 06/02/2025 Type 2 diabetes mellitus wit h foot ulcer (CODE) ([facility] V24, [facility] V28) 03/03/2025 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 right foot with fat layer exposed ([facility] V24, [facility] V28) 03/03/2025 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 right lower leg with fat layer exposed ([facility] V24, [facility] V28) 08/04/2024 Diabetes mellitus due to und erlying condition with diabetic autonomic neuropathy ([facility] V24, [facility] V28) 08/04/2024 Corns and callosities 08/04/2024 Chronic venous hypertension (idiopathic) with ulcer and inflammation of right lower extremity ([facility] V24, [facility] V28) 08/04/2024 History of colon polyps 11/19/2023 Overview (11/19/2023): 10/20/2015 Dyspnea on exertion 09/27/2021 Cerebrovascular accident (CVA) ([facility] V24, [facility] V28) 04/13/2021 Overview (11/19/2023): Last Assessment [...] Doxazosin was decreased as well Pulmonary embolism ([facility] V24, [facility] V28) Osteomyelitis of toe of righ t foot ([facility] V24, [facility] V28) 06/04/2019 CKD (chronic kidney disease) stage 3, GFR 30-59 ml/min ([facility] V24, [facility] V28) 04/08/2019 Microalbuminuria 04/08/2019 Chronic back pain 11/03/2018 Coronary artery disease invo lving modoc coronary artery of modoc heart without angina pectoris 10/01/2017 Overview (11/19/2023): Last Assessment & Plan: No ischemic or heart failure symptoms. 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 ([facility] V24, [facility] V28) 10/31/2016 Osteoarthritis of spine with radiculopathy, lumb ar region 10/31/2016 Obstructive sleep apnea 01/24/2016 Overview (11/19/2023): [facility] Polysomnogram: Date 12/10/2017; SE 77%; SM 87%; [...] by 2018 diagnostic polysomnogram. Background diabetic retinopathy ([facility] V24, [facility] V28) 10/20/2015 Depressive disorder 10/20/2015 Diabetic neuropathy ([facility] V24, [facility] V28) 0 10/20/2015 DM (diabetes mellitus), type 2 with ophthalmic complications ([facility] V24, [facility] V28) 10/20/2015 Type 2 diabetes mellitus wit h neurological manifestations ([facility] V24, [facility] V28) 10/20/2015 Diverticulosis 10/20/2015 Overview (11/19/2023): CN [...] 2 diabetes mellitus wit h renal manifestations ([facility] V24, [facility] V28) 10/07/2015 Encounters Date Type Department Care Team Description 06/24/2025 3:30 PM EDT Office Visit [facility] [address] [place] [phone] Serigo Rodriguez MD Type 2 diabetes mellitus with foot ulcer (CODE) ([facility]/HCC V24, [facility]/HCC V28) (Primary Dx); Non-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 layer exposed ([facility] V24, [facility]/H[facility] V28) 06/17/2025 3:15 PM EDT Office Visit [facility] [address] [place] [phone] Sly Welch PA Type 2 diabetes mellitus with foot ulcer (CODE) ([facility] V24, [facility] V28) (Primary Dx); Non-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 layer exposed ([facility]/HCC V24, [facility]/HCC V28) 06/09/2025 2:45 PM EDT Office Visit [facility] [address] [place] [phone] Sly Welch PA Type 2 diabetes mellitus with foot ulcer (CODE) ([facility]/HCC V24, [facility]/HCC V28) (Primary Dx); Non-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 layer exposed ([facility]/HCC V24, [facility]/HCC V28); Diabetic polyneuropathy associated with type 2 diabetes mellitus ([facility]/HCC V24, [facility]/HCC V28); Other chronic osteomyelitis of right foot ([facility]/HCC V24, [facility]/HCC V28) 06/07/2025 Telephone [facility] [address] [place] [phone] Keena Zamora RN 06/02/2025 11:30 AM EDT Office Visit [facility] [address] [place] [address] [phone] Sly Welch PA Type 2 diabetes mellitus with foot ulcer (CODE) ([facility]/HCC V24, [facility]/HCC V28) (Primary Dx); Non-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 layer exposed ([facility]/HCC V24, [facility]/HCC V28); Diabetic polyneuropathy associated with type 2 diabetes mellitus ([facility]/HCC V24, [facility]/HCC V28); Other chronic osteomyelitis of right foot (CMS/HCC V24, [facility]/HCC V28) 05/29/2025 8:53 AM EDT - 05/29/2025 11:59 PM EDT Hospital Encounter [facility] MRI [address] [place] [phone] Type 2 diabetes mellitus with foot ulcer (CODE) ([facility]/HCC V24, [facility]/HCC V28); Non-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 layer exposed ([facility]/HCC V24, [facility]/HCC V28); Diabetic polyneuropathy associated with type 2 diabetes mellitus ([facility]/HCC V24, [facility]/HCC V28) Discharge Disposition: Home or Self Care 05/20/2025 Telephone [facility] [address] [place] [phone] Mireille Yan RN 05/19/2025 1:18 PM EDT - 05/19/2025 11:59 PM EDT Hospital Encounter [facility] Xray [address] [place] [phone] Type 2 diabetes mellitus with foot ulcer (CODE) ([facility]/HCC V24, [facility]/HCC V28); Non-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 layer exposed ([facility]/HCC V24, [facility]/HCC V28); Diabetic polyneuropathy associated with type 2 diabetes mellitus ([facility]/HCC V24, [facility]/HCC V28) Discharge Disposition: Home or Self Care 05/19/2025 12:30 PM EDT Office Visit [facility] [address] [place] [phone] Sly Welch PA Type 2 diabetes mellitus with foot ulcer (CODE) ([facility]/HCC V24, [facility]/HCC V28) (Primary Dx); Non-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 layer exposed ([facility]/HCC V24, [facility]/HCC V28); Diabetic polyneuropathy associated with type 2 diabetes mellitus ([facility]/HCC V24, [facility]/HCC V28) 05/05/2025 12:30 PM EDT Office Visit [facility] [address] [place] [phone] Sly Welch PA Type 2 diabetes mellitus with foot ulcer (CODE) ([facility]/HCC V24, [facility]/HCC V28) (Primary Dx); Non-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 layer exposed ([facility]/HCC V24, [facility]/HCC V28); Diabetic polyneuropathy associated with type 2 diabetes mellitus ([facility]/HCC V24, CMS/HCC V28) 04/21/2025 12:45 PM EDT Office Visit [facility] [address] [place] [phone] Sly Welch PA Type 2 diabetes mellitus with foot ulcer (CODE) ([facility]/HCC V24, [facility]/HCC V28) (Primary Dx); Non-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 layer exposed ([facility]/HCC V24, [facility]/HCC V28); Diabetic polyneuropathy associated with type 2 diabetes mellitus ([facility]/HCC V24, [facility] V28) 03/31/2025 1:45 PM EDT Office Visit [facility] [address] [place] [phone] Sly Welch PA Type 2 diabetes mellitus with foot ulcer (CODE) ([facility] V24, [facility] V28) (Primary Dx); Non-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 layer exposed ([facility] V24, [facility] V28); Diabetic polyneuropathy associated with type 2 diabetes mellitus ([facility] V24, [facility] V28) from Last 3 Months Immunizations Immunization Administration Dates Next Due Influenza Quadravalent, 0.5m [...] Date Comments Coronary artery disease invo lving mod[place] coronary artery with other forms of angina pectoris 10/07/2015 DX:Coronary artery disease involving modoc coronary artery with other forms of angina pectoris; COMMENT: stentsx2, no details, one in 2001, another 2004 BPH (benign prostatic hyperplasia) 10/07/2015 DX:BPH (benign prostatic hyperplasia) Hypercholesteremia 10/07/2015 DX:Hyperchole steremia Erectile dysfunction 10/17/2015 DX:Erectile dysfunction HTN (hypertension) 10/20/2015 DX:HTN (hyper tension) Onychomycosis 10/20/2015 DX:Onychomycosis Background diabetic retinopa thy ([facility] V24, [facility] V28) 10/20/2015 DX:Background diabetic reti nopathy (HCC) DM (diabetes mellitus), type 2 with ophthalmic complications ([facility] V24, [facility] V28) 10/20/2015 DX:DM (diabetes mellitus), t ype 2 with ophthalmic complications ([facility]) Old IA (myocardial infarction) 10/07/2015 D X:Old IA (myocardial infarction); COMMENT: stentsx2, no details, one in 2001, another 2004 Diverticulosis 10/20/2015 DX:Diverticulosi s; COMMENT: CN 2011 Depressive disorder 10/20/2015 DX:Depressiv e disorder GERD (gastroesophageal reflux disease) 10/20/2015 DX:GERD (gastroesophageal reflux disease) History of colon polyps 10/20/2015 DX:Histo ry of colon polyps; COMMENT: Type not specified in transfer notes Type 2 diabetes mellitus wit h vascular disease ([facility] V24, [facility] V28) 10/07/2015 DX:Type 2 diabetes mellitus with vascular disease ([facility]) Diabetic neuropathy ([facility] V24, [facility] V28) 10/20/2015 DX:Diabetic neuropathy ([facility]) Type 2 diabetes mellitus wit h neurological manifestations ([facility] V24, [facility] V28) 10/20/2015 DX:Type 2 diabetes mellitus with neurological manifestations ([facility]) Type 2 diabetes mellitus wit h renal manifestations ([facility] V24, [facility] V28) 10/07/2015 DX:Type 2 diabetes mellitus with renal manifestations ([facility]) Microalbuminuria 04/08/2019 DX:Microalbumin uria CKD (chronic kidney disease) stage 3, GFR 30-59 ml/min ([facility] V24, [facility] V28) 04/08/2019 DX:CKD (chronic kidney disea se) stage 3, GFR 30-59 ml/min ([facility]) Family History Medical History Relation [...] EDT Inhaled Oxygen Concentration - - Weight 111 kg (245 lb) 03/03/2025 8:21 AM EDT Height 172.7 cm (5' 8 ) 03/03/2025 8:21 AM EDT Body Mass Index 37.25 03/03/2025 8:21 AM EDT Plan of Treatment Upcoming Encounters Date Type Department Care Team (Late st Contact Info) Description 07/01/2025 3:15 PM EDT Clinical Support [facility] [address] [place] [phone] 08/23/2025 1:30 PM EST Ancillary Procedure [facility] [address] [place] [phone] Health Maintenance Due Date Last Done Comments Colorectal Cancer Screening: Colonoscopy 1952 Diabetes: Annual Foot Exam 1962 Diabetes: Annual Retina Eye Exam 1962 Hepatitis A Vaccines (1 of 2 - Risk 2-dose series) 1971 RSV Immunization Adult Patients (1 - Risk 50-74 years 1-dose series) 2002 Cholesterol Screening (Lipid Panel) 08/25/2022 Hepatitis C Screening 08/25/2022 Medicare Annual Wellness Visit 08/25/2022 Social Influencers of Health Screening 08/25/2022 Diabetes: Annual Urine Albumin-Creatinine Ratio (uACR) 09/01/2022 Diabetes: Blood Sugar Control Test (HGBA1C) 09/01/2022 COVID-19 Vaccine ( season) 2025 09/05/2022, 07/11/2021, 12/17/2020, Additional history exists Influenza Vaccine (#1) 2025 , 06/25/2023, 06/17/2023, Additional history exists Falls Risk Assessment 03/03/2026 03/03/2025 Diabetes: Annual GFR (Glomerular Filtration Rate) 06/02/2026 06/02/2025 Hypertension/CHF/CAD Annual BMP Blood Test 06/02/2026 06/02/2025 DTaP,Tdap,and Td Vaccines (3 - Td or Tdap) 07/05/2032 07/05/2022, 03/02/2011, 03/02/2011 Zoster Vaccines Completed 05/15/2018, 12/17, 06/08/2013 Pneumococcal Vaccine: 50+ Years Completed 05/11/2021, 02/03/2019, 05/08/2010, Additional history exists Depression Screening Completed 03/03/2025 HIB Vaccines Aged Out No longer eligi [...] Education Care Plan Impaired Tissue On track( 4:05 PM EDT) Mireille Dan RN Wound [...] 2 diabetes mellitus with foot ulcer (CODE) ([facility] V24, [facility] V28) Non-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 layer exposed ([facility] V24, [facility]/HCC V28) DEBRIDEMENT Routine 06/17/2025 3:15 PM EDT Type 2 diabetes mellitus with foot ulcer (CODE) ([facility] V24, [facility] V28) Non-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 layer exposed ([facility] V24, [facility]/HCC V28) DEBRIDEMENT Routine 06/09/2025 2:45 PM EDT Type 2 diabetes mellitus with foot ulcer (CODE) ([facility]/HCC V24, [facility]/HCC V28) Non-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 layer exposed ([facility]/HCC V24, [facility]/HCC V28) Diabetic polyneuropathy associated with type 2 diabetes mellitus ([facility]/HCC V24, [facility]/HCC V28) Other chronic osteomyelitis of right foot ([facility]/HCC V24, CMS/HCC V28) CBC WITH AUTO DIFFERENTIAL Routine 06/02/2025 12:23 PM EDT Type 2 diabetes mellitus with foot ulcer (CODE) ([facility]/HCC V24, [facility]/HCC V28) Non-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 layer exposed ([facility]/HCC V24, [facility]/HCC V28) Diabetic polyneuropathy associated with type 2 diabetes mellitus ([facility]/HCC V24, [facility]/HCC V28) Other chronic osteomyelitis of right foot ([facility]/HCC V24, CMS/HCC V28) SEDIMENTATION RATE Routine 06/02/2025 12 :23 PM EDT Type 2 diabetes mellitus with foot ulcer (CODE) ([facility]/HCC V24, [facility]/HCC V28) Non-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 layer exposed ([facility]/HCC V24, [facility]/HCC V28) Diabetic polyneuropathy associated with type 2 diabetes mellitus ([facility]/HCC V24, [facility]/HCC V28) Other chronic osteomyelitis of right foot (CMS/HCC V24, CMS/HCC V28) C-REACTIVE PROTEIN Routine 06/02/2025 12 :23 PM EDT Type 2 diabetes mellitus with foot ulcer (CODE) ([facility]/HCC V24, [facility]/HCC V28) Non-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 layer exposed ([facility]/HCC V24, CMS/HCC V28) Diabetic polyneuropathy associated with type 2 diabetes mellitus ([facility]/HCC V24, [facility]/HCC V28) Other chronic osteomyelitis of right foot ([facility]/HCC V24, CMS/HCC V28) BASIC METABOLIC PANEL Routine 06/02/2025 12:23 PM EDT Type 2 diabetes mellitus with foot ulcer (CODE) ([facility]/HCC V24, [facility]/HCC V28) Non-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 layer exposed ([facility]/HCC V24, CMS/HCC V28) Diabetic polyneuropathy associated with type 2 diabetes mellitus ([facility]/HCC V24, [facility]/HCC V28) Other chronic osteomyelitis of right foot (CMS/HCC V24, CMS/HCC V28) CBC AND DIFFERENTIAL Routine 06/02/2025 12:23 PM EDT Type 2 diabetes mellitus with foot ulcer (CODE) ([facility]/HCC V24, [facility]/HCC V28) Non-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 layer exposed ([facility]/HCC V24, CMS/HCC V28) Diabetic polyneuropathy associated with type 2 diabetes mellitus ([facility]/HCC V24, [facility]/HCC V28) Other chronic osteomyelitis of right foot ([facility]/HCC V24, [facility]/HCC V28) CULTURE WOUND WITH GRAM STAIN Routine 06/02/2025 12:05 PM EDT Type 2 diabetes mellitus with foot ulcer (CODE) ([facility]/HCC V24, [facility]/HCC V28) Non-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 layer exposed ([facility]/HCC V24, [facility]/HCC V28) Diabetic polyneuropathy associated with type 2 diabetes mellitus ([facility]/HCC V24, [facility]/HCC V28) Other chronic osteomyelitis of right foot (CMS/HCC V24, CMS/HCC V28) DEBRIDEMENT Routine 06/02/2025 11:30 AM EDT Type 2 diabetes mellitus with foot ulcer (CODE) ([facility]/HCC V24, [facility]/HCC V28) Non-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 layer exposed ([facility]/HCC V24, CMS/HCC V28) Diabetic polyneuropathy associated with type 2 diabetes mellitus ([facility]/HCC V24, CMS/HCC V28) Other chronic osteomyelitis of right foot (CMS/HCC V24, CMS/HCC V28) MR FOOT WO AND W CONTRAST RIGHT Routine 05/29/2025 9:54 AM EDT Type 2 diabetes mellitus with foot ulcer (CODE) ([facility]/HCC V24, CMS/HCC V28) Non-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 layer exposed (CMS/HCC V24, CMS/HCC V28) Diabetic polyneuropathy associated with type 2 diabetes mellitus (CMS/HCC V24, CMS/HCC V28) XR FOOT 3+ VIEWS RIGHT Routine 05/19/2025 1:27 PM EDT Type 2 diabetes mellitus with foot ulcer (CODE) ([facility]/HCC V24, CMS/HCC V28) Non-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 layer exposed ([facility]/HCC V24, CMS/HCC V28) Diabetic polyneuropathy associated with type 2 diabetes mellitus ([facility]/HCC V24, CMS/HCC V28) DEBRIDEMENT Routine 05/19/2025 12:30 PM EDT Type 2 diabetes mellitus with foot ulcer (CODE) ([facility]/HCC V24, CMS/HCC V28) Non-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 layer exposed ([facility]/HCC V24, CMS/HCC V28) Diabetic polyneuropathy associated with type 2 diabetes mellitus (CMS/HCC V24, CMS/HCC V28) DEBRIDEMENT Routine 05/05/2025 12:30 PM EDT Type 2 diabetes mellitus with foot ulcer (CODE) (CMS/HCC V24, CMS/HCC V28) Non-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 layer exposed (CMS/HCC V24, CMS/HCC V28) Diabetic polyneuropathy associated with type 2 diabetes mellitus (CMS/HCC V24, CMS/HCC V28) DEBRIDEMENT Routine 04/21/2025 12:45 PM EDT Type 2 diabetes mellitus with foot ulcer (CODE) (CMS/HCC V24, CMS/HCC V28) Non-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 layer exposed (CMS/HCC V24, CMS/HCC V28) Diabetic polyneuropathy associated with type 2 diabetes mellitus (CMS/HCC V24, CMS/HCC V28) DEBRIDEMENT Routine 03/31/2025 1:45 PM EDT Type 2 diabetes mellitus with foot ulcer (CODE) (CMS/HCC V24, CMS/HCC V28) Non-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 layer exposed ([facility] V24, [facility] V28) Diabetic polyneuropathy associated with type 2 diabetes mellitus ([facility] V24, [facility] V28) from Last 3 Months Results * Debridement Diabetic Ulcer Right Toe [...] MD IN CLINIC/BEDSIDE ORDERAB LES Final Result * Debridement Diabetic Ulcer Right Toe D1, Great (06/17/2025 3:15 PM EDT) Sergio Landin MD - 06/17/2025 3:15 PM EDT Sergio Rodriguez MD 06/24/2025 2:55 PM Debridement Diabetic Ulcer Right Toe D1, Great Performed by: LAVON Moe Authorized by: LAVON Moe Associated wounds: Wound Diabetic Ulcer 03/03/25 Toe D1, Great Right Consent: Consent obtained: Verbal Consent given by: Patient Risks discussed: Yes Time out: Immediately prior to the procedure a time out was called Debridement Details: Performed by: PA Type: surgical Level: subcutaneous tissue Pain control: Lidocaine 4% Severity of Tissue Pre Debridement: Fat layer exposed Severity of Tissue Post Debridement: Fat layer exposed Time taken: 06/17/2025 3:30 PM Length (cm): 1.8 Width (cm): 1.2 Depth (cm): 0.1 Area (cm^2): 1.7 Time taken: 06/17/2025 3:31 PM Length (cm): 1.8 Width (cm): 1.2 Depth (cm): 0.1 Percent Debrided (%): 100 Surface Area (cm^2): 2.16 Area Debrided (cm^2): 2.16 Volume (cm^3): 0.22 Tissue and other material debrided: dermis, epidermis and subcutaneous tissue Devitalized tissue debrided: biofilm and callus Instrument: Curette Amount of bleeding: none Hemostasis obtained with: Not applicable Procedural pain: 0 Post-procedural pain: 0 Response to treatment: Procedure was tolerated well us [facility]INIC/BEDSIDE ORDERABLE S Final Result * Debridement Diabetic Ulcer Right Toe D1, Great (06/09/2025 2:45 PM EDT) Sergio Landin MD - 06/09/2025 2:45 PM EDT Sergio Rodriguez MD 06/24/2025 8:36 AM Debridement Diabetic Ulcer Right Toe D1, Great Performed by: LAVON Moe Authorized by: LAVON Moe Associated wounds: Wound Diabetic Ulcer 03/03/25 Toe D1, Great Right Consent: Consent obtained: Verbal Consent given by: Patient Risks discussed: Yes Time out: Immediately prior to the procedure a time out was called Debridement Details: Performed by: PA Type: surgical Level: subcutaneous tissue Pain control: Lidocaine 4% Severity of Tissue Pre Debridement: Fat layer exposed Severity of Tissue Post Debridement: Fat layer exposed Time taken: 06/09/2025 3:03 PM Length (cm): 1.6 Width (cm): 0.9 Depth (cm): 0.1 Area (cm^2): 1.44 Time taken: 06/09/2025 3:04 PM Length (cm): 1.6 Width (cm): 0.9 Depth (cm): 0.1 Percent Debrided (%): 100 Surface Area (cm^2): 1.44 Area Debrided (cm^2): 1.44 Volume (cm^3): 0.14 Tissue and other material debrided: dermis, epidermis and subcutaneous tissue Devitalized tissue debrided: callus and slough Instrument: Curette Amount of bleeding: none Hemostasis obtained with: Not applicable Procedural pain: 0 Post-procedural pain: 0 Response to treatment: Procedure was tolerated well us [facility]IC/BEDSIDE ORDERABLE S Final Result * (ABNORMAL) CBC auto differential (06/02/2025 12:23 PM EDT) WBC 7.6 4.8 - 10.8 K/mcL LAB HEMETOLOGY METHOD 06/02/2025 2:20 PM EDT [facility] RBC 4.10(L) 4.50 - 5.50 M/mcL LAB HEMETOLOGY METHOD 06/02/2025 2:20 PM EDT [facility] Hemoglobin 12.1(L) 13.5 - 17.5 g/dL LAB HEMETOLOGY METHOD 06/02/2025 2:20 PM EDT [facility] Hematocrit 36.8(L) 42.0 - 54.0 % LAB HEMETOLOGY METHOD 06/02/2025 2:20 PM EDT [facility] MCV 88.9 79.0 - 98.0 FL LAB HEMETOLOGY METHOD 06/02/2025 2:20 PM EDT [facility] MCH 29.2 27.0 - 32.0 pcg LAB HEMETOLOGY METHOD 06/02/2025 2:20 PM EDT [facility] MCHC 32.9 32.0 - 37.0 g/dL LAB HEMETOLOGY METHOD 06/02/2025 2:20 PM EDT [facility] RDW 13.6 11.0 - 15.0 % LAB HEMETOLOGY METHOD 06/02/2025 2:20 PM EDT [facility] Platelets 229 130 - 400 K/mcL LAB HEMETOLOGY METHOD 06/02/2025 2:20 PM EDT [facility] MPV 11.4(H) 7.0 - 11.0 FL LAB HEMETOLOGY METHOD 06/02/2025 2:20 PM EDT [facility] NRBC 0.0 <1.0 % LAB HEMETOLOGY METHOD 06/02/2025 2:20 PM EDT [facility] NRBC Absolute 0.00 <0.10 K/mcL LAB HEMETOLOGY METHOD 06/02/2025 2:20 PM EDT [facility] Neutrophils Relative 60.7 % LAB HEMETOLOGY METHOD 06/02/2025 2:20 PM EDT [facility] Lymphocytes Relative 22.4 % LAB HEMETOLOGY METHOD 06/02/2025 2:20 PM EDT [facility] Monocytes Relative 10.9 % LAB HEMETOLOGY METHOD 06/02/2025 2:20 PM EDT [facility] Eosinophils Relative 5.1 % LAB HEMETOLOGY METHOD 06/02/2025 2:20 PM EDT [facility] Basophils Relative 0.4 % LAB HEMETOLOGY METHOD 06/02/2025 2:20 PM EDT [facility] Immature Granulocytes Relative 0.5 % LAB HEMETOLOGY METHOD 06/02/2025 2:20 PM EDT [facility] Neutrophils Absolute 4.61 1.50 - 7.00 K/mcL LAB HEMETOLOGY METHOD 06/02/2025 2:20 PM EDT [facility] Lymphocytes Absolute 1.70 1.00 - 5.00 K/mcL LAB HEMETOLOGY METHOD 06/02/2025 2:20 PM EDT [facility] Monocytes Absolute 0.83 0.20 - 1.00 K/mcL LAB HEMETOLOGY METHOD 06/02/2025 2:20 PM EDT [facility] Eosinophils Absolute 0.39 0.00 - 0.50 K/mcL LAB HEMETOLOGY METHOD 06/02/2025 2:20 PM EDT [facility] Basophils Absolute 0.03 0.00 - 0.20 K/[facility] LAB HEMETOLOGY METHOD 06/02/2025 2:20 PM EDT [facility] Immature Granulocytes Absolute 0.04(H) 0.00 - 0.03 K/[facility] LAB HEMETOLOGY METHOD 06/02/2025 2:20 PM EDT [facility] Blood Venous blood specimen / Unknown Venipuncture / Unknown 06/02/2025 12:23 PM EDT 06/02/2025 2:07 PM EDT [facility] BLOOD ORDERABLES Final Result Performing Organization Address [facility]/ZIP Co de Phone Number [facility] [address] [place] [address], [place] [phone] * Sedimentation rate (06/02/2025 12:23 PM EDT) Sed Rate 16 0 - 20 mm/hr LAB HEMETOLOGY METHOD 06/02/2025 2:25 PM EDT [facility] Blood Venous blood specimen / Unknown Venipuncture / Unknown 06/02/2025 12:23 PM EDT 06/02/2025 2:07 PM EDT [facility] LAB BLOOD ORDERABLES Final Result [facility] [address] [place] [address], [place] [phone] * (ABNORMAL) C-reactive protein (06/02/2025 12:23 PM EDT) [facility] C-Reactive Protein 0.84(H) <=0.50 mg/dL LAB CHEMISTRY METHOD 06/02/2025 3:49 PM EDT [facility] Blood Venous blood specimen / Unknown Venipuncture / Unknown 06/02/2025 12:23 PM EDT 06/02/2025 2:07 PM EDT [facility] BLOOD ORDERABLES Final Result [facility] [address] [place] [address], [place] [phone] * (ABNORMAL) Basic metabolic panel (06/02/2025 12:23 PM EDT) [facility] Sodium 136 133 - 145 mmol/L LAB CHEMISTRY METHOD 06/02/2025 3:48 PM EDT [facility] Potassium 4.2 3.5 - 5.5 mmol/L LAB CHEMISTRY METHOD 06/02/2025 3:48 PM T [facility] Chloride 104 96 - 110 mmol/L LAB CHEMISTRY METHOD 06/02/2025 3:48 PM EDT [facility] CO2 27 21 - 32 mmol/L LAB CHEMISTRY METHOD 06/02/2025 3:48 PM EDT [facility] Anion Gap 5 3 - 11 LAB CHEMISTRY METHOD 06/02/2025 3:48 PM EDT [facility] Glucose 174(H) 70 - 100 mg/dL LAB CHEMISTRY METHOD 06/02/2025 3:48 PM EDT [facility] BUN 24 5 - 25 mg/dL LAB CHEMISTRY METHOD 06/02/2025 3:48 PM EDT [facility] Creatinine 1.33(H) 0.70 - 1.30 mg/dL LAB CHEMISTRY METHOD 06/02/2025 3:48 PM EDT [facility] eGFR 57(L) >=60 mL/min/1. 73m2 LAB CHEMISTRY METHOD 06/02/2025 3:48 PM EDT [facility] Comment:Calculation based on the Chronic Kidney Disease Epidemiology Collaboration (CKD-EPI) equation refit without adjustment for race. BUN/Creatinine Ratio 18.0 LAB CHEMISTRY METHOD 06/02/2025 3:48 PM EDT [facility] Calcium 8.8 8.5 - 10.5 mg/dL LAB CHEMISTRY METHOD 06/02/2025 3:48 PM EDT [facility] Blood Venous blood specimen / Unknown Venipuncture / Unknown 06/02/2025 12:23 PM EDT 06/02/2025 2:07 PM EDT [facility] BLOOD ORDERABLES Final Result [facility] [address] [place] [address], * (ABNORMAL) Culture wound with gram stain (06/02/2025 12:05 PM EDT) Culture, Wound Methicillin-Resista nt Staphylococcus aureus(A) ARIANA 06/05/2025 10:52 AM EDT [facility] Comment: The organism value for this result has been updated. These results have been appended to the previously preliminary verified report. Edited result: Previously reported as Staphylococcus aureus on 06/04/2025 at 1244 EDT. Culture, Wound Morganella morganii ssp morganii(A) ARIANA 06/05/2025 10:52 AM EDT [facility] Comment: The organism value for this result has been updated. These results have been appended to the previously preliminary verified report. This is an edited result. Previous organism was Gram negative bacilli on 06/04/2025 at 1244 EDT. Culture, Wound Streptococcus beta-hemolytic Group G(A) ARIANA 06/05/2025 10:52 AM EDT [facility] Comment: Susceptibility testing is not routinely performed for Beta Streptococcus isolates since these organisms are predictably sensitive to Penicillin. If the Patient is not responding, is allergic to Penicillin, or further therapeutic information is requir ed, please consult an Infectious Disease Specialist. The organism value for this result has been updated. These results have been appended to the previously preliminary verified report. Gram Stain Result No polymorphonuclear leukocytes, No epithelial cells, and No organisms noted 06/05/2025 10:52 AM EDT [facility] Swab Structure of right foot / Unknown Non-blood Collection / Unknown 06/02/2025 12:05 PM EDT 06/02/2025 3:49 PM EDT Narrative Organism Antibiotic Method Susceptibility Methicillin-Resistant Staphylococcus aureus Benzylpenicillin ARIANA >=0.5 ug/ml: Resistant Methicillin-Resistant Staphylococcus aureus Oxacillin ARIANA >=4 ug/ml: Resistant Methicillin-Resistant Staphylococcus aureus Gentamicin ARIANA <=0.5 ug/ml: Susceptible Methicillin-Resistant Staphylococcus aureus Ciprofloxacin ARIANA >=8 ug/ml: Resistant Methicillin-Resistant Staphylococcus aureus Levofloxacin ARIANA >=8 ug/ml: Resistant Methicillin-Resistant Staphylococcus aureus Erythromycin ARIANA <=0.25 ug/ml: Susceptible Methicillin-Resistant Staphylococcus aureus Clindamycin ARIANA <=0.25 ug/ml: Susceptible Methicillin-Resistant Staphylococcus aureus Linezolid ARIANA 2 ug/ml: Susceptible Methicillin-Resistant Staphylococcus aureus Vancomycin ARIANA <=0.5 ug/ml: Susceptible Methicillin-Resistant Staphylococcus aureus Tetracycline ARIANA <=1 ug/ml: Susceptible Methicillin-Resistant Staphylococcus aureus Rifampin ARIANA <=0.5 ug/ml: Susceptible Methicillin-Resistant Staphylococcus aureus Trimethoprim/Sulfamethoxazo le ARIANA <=10 ug/ml: Susceptible Morganella morganii ssp morganii Amoxicillin/Clavulanate ARIANA >=32 ug/ml: Resistant Morganella morganii ssp morganii Ampicillin/Sulbactam ARIANA >=32 ug/ml: Resistant Morganella morganii ssp morganii Piperacillin/Tazobactam ARIANA <=4 ug/ml: Susceptible Morganella morganii ssp morganii Cefoxitin ARIANA 16 ug/ml: Intermediate Morganella morganii ssp morganii Meropenem ARIANA <=0.25 ug/ml: Susceptible Morganella morganii ssp morganii Amikacin ARIANA 4 ug/ml: Susceptible Morganella morganii ssp morganii Ciprofloxacin ARIANA <=0.06 ug/ml: Susceptible Morganella morganii ssp morganii Levofloxacin ARIANA <=0.12 ug/ml: Susceptible Morganella morganii ssp morganii Trimethoprim/Sulfamethoxazo le ARIANA <=20 ug/ml: Susceptible [facility] MICROBIOLOGY - GENERAL ORDERABLES Final Result [facility] ([facility] [address] [place] [address], * Debridement Diabetic Ulcer Right Toe D1, Great (06/02/2025 11:30 AM EDT) Sergio Landin MD - 06/02/2025 11:30 AM EDT LAVON Moe 06/02/2025 12:20 PM Debridement Diabetic Ulcer Right Toe D1, Great Performed by: LAVON Moe Authorized by: LAVON Moe Associated wounds: Wound Diabetic Ulcer 03/03/25 Toe D1, Great Right Consent: Consent obtained: Verbal Consent given by: Patient Risks discussed: Yes Time out: Immediately prior to the procedure a time out was called Debridement Details: Performed by: LAVON Type: surgical Level: subcutaneous tissue Pain control: Lidocaine 4% Severity of Tissue Pre Debridement: Fat layer exposed Severity of Tissue Post Debridement: Fat layer exposed Time taken: 06/02/2025 11:37 AM Length (cm): 1.8 Width (cm): 0.9 Depth (cm): 0.2 Area (cm^2): 1.62 Time taken: 06/02/2025 11:38 AM Length (cm): 1.8 Width (cm): 0.9 Depth (cm): 0.2 Percent Debrided (%): 100 Surface Area (cm^2): 1.62 Area Debrided (cm^2): 1.62 Volume (cm^3): 0.32 Tissue and other material debrided: dermis, epidermis and subcutaneous tissue Devitalized tissue debrided: biofilm, callus and slough Instrument: Curette, blade and forceps Amount of bleeding: small Hemostasis obtained with: Pressure and silver nitrate Procedural pain: 0 Post-procedural pain: 0 Response to treatment: Procedure was tolerated well us [facility]IC/BEDSIDE ORDERABLE S Final Result * MR Foot wo and w Contrast Right (05/29/2025 9:54 AM EDT) Anatomical Region Laterality Modality Lower Extremities, Foot Right Magnetic Resonance 05/31/2025 3:21 AM EDT Impressions 05/31/2025 3:29 AM EDT 1. Osteomyelitis of the distal phalanx of the right great toe with overlying ulcer 2. Nonspecific patchy area of abnormal bone marrow signal involving the proximal phalanx which may be reactive; underlying osteomyelitis is not entirely excluded. -------- FINAL REPORT -------- Dictated By: Tori Monteiro Dictated Date: 05/31/2025 03:21 ET Assigned Physician: Tori Monteiro Reviewed and Electronically Signed By: Tori Monteiro Signed Date: 05/31/2025 03:29 ET Workstation ID: [id number] Transcribed By: Self Edit Transcribed Date: 05/31/2025 03:21 ET Narrative 05/31/2025 3:29 AM EDT INDICATION: Non healing diabetic wound of right great toe, r/o osteomyelitis COMPARISON: Right foot radiographs 05/2025 TECHNIQUE: Multiplanar, multisequence MRI was performed of the right foot without and after the uneventful intravenous contrast administration of 20 mL Dotarem. FINDINGS: Bone: T1 marrow replacement with T2 fat-sat hyperintense signal involving the distal phalanx of the right great toe which demonstrates enhancement after intravenous contrast administration. Nonspecific area of T1 hypointense, T2 fat sat hyperintense signal along the proximal phalanx of the right great toe which demonstrates patchy enhancement after intravenous contrast administration. T1 hypointense, T2 fat sat hyperintense enhancing focus along the first metatarsal head may represent AVN or bone marrow edema/osteitis. Degenerative changes of the right great toe MTP. Soft Tissues: Negative ulcer along the medial aspect of the right great toe distally with surrounding subcutaneous soft tissue edema and overlying cellulitis. Procedure Note Tori Monteiro MD - 05/31/2025 INDICATION: Non healing diabetic wound of right great toe, r/oosteomyelitis COMPARISON: Right foot radiographs 05/2025 TECHNIQUE: Multiplanar, multisequence MRI was performed of the right footwithout and after the uneventful intravenous contrast administration of 20mL Dotarem. FINDINGS: Bone: T1 marrow replacement with T2 fat-sat hyperintense signal involvingthe distal phalanx of the right great toe which demonstrates enhancementafter intravenous contrast administration. Nonspecific area of [id number], T2 fat sat hyperintense signal along the proximal phalanx ofthe right great toe which demonstrates patchy enhancement afterintravenous contrast administration. T1 hypointense, T2 fat sat hyperintense enhancing focus along the firstmetatarsal head may represent AVN or bone marrow edema/osteitis. Degenerative changes of the right great toe MTP. Soft Tissues: Negative ulcer along the medial aspect of the right greattoe distally with surrounding subcutaneous soft tissue edema and overlyingcellulitis. IMPRESSION: 1. Osteomyelitis of the distal phalanx of the right great toe withoverlying ulcer 2. Nonspecific patchy area of abnormal bone marrow signal involving theproximal phalanx which may be reactive; underlying osteomyelitis is notentirely excluded. -------- FINAL REPORT -------- Dictated By: Tori Monteiro Dictated Date: 05/31/2025 03:21 ET Assigned Physician: Tori Monteiro Reviewed and Electronically Signed By: Tori Monteiro Signed Date: 05/31/2025 03:29 ET Workstation ID: [id number] Transcribed By: Self Edit Transcribed Date: 05/31/2025 03:21 ET [facility] IMG MRI PROCEDURES Final Re sult * XR Foot 3+ Views Right (05/19/2025 1:27 PM EDT) Anatomical Region Laterality Modality Lower Extremities, Foot Right [facility] 05/20/2025 7:57 AM EDT Impressions 05/20/2025 7:59 AM EDT No fracture or dislocation. Thinning of the cortex of the medial aspect of the first distal phalanx which could represent early osteomyelitis. More definitive evaluation with radionuclide bone scan should be considered if clinically warranted. Code 06506 -------- FINAL REPORT -------- Dictated By: Eddie Jose Dictated Date: 05/20/2025 07:57 ET Assigned Physician: Eddie Jose Reviewed and Electronically Signed By: Eddie Jose Signed Date: 05/20/2025 07:59 ET Workstation ID: [id number] Transcribed By: Self Edit Transcribed Date: 05/20/2025 07:57 ET Narrative 05/20/2025 7:59 AM EDT HISTORY: The patient is a 74-year-old diabetic male with a nonhealing ulcer of the right first toe. FINDINGS: AP, lateral, and oblique views of the right foot are obtained. The study demonstrates no fracture or dislocation. There is thinning of the medial cortex of the first distal phalanx which could represent early osteomyelitis. There is no radiographic evidence of osteomyelitis elsewhere in the foot. A small inferior calcaneal osteophyte is noted. No soft tissue gas is demonstrated. Extensive atherosclerotic arterial calcification is present. Procedure Note Eddie Jose MD - 05/20/2025 HISTORY: The patient is a 74-year-old diabetic male with a nonhealingulcer of the right first toe. FINDINGS: AP, lateral, and oblique views of the right foot are obtained.The study demonstrates no fracture or dislocation. There is thinning ofthe medial cortex of the first distal phalanx which could represent earlyosteomyelitis. There is no radiographic evidence of osteomyelitiselsewhere in the foot. A small inferior calcaneal osteophyte is noted. Nosoft tissue gas is demonstrated. Extensive atherosclerotic arterialcalcification is present. IMPRESSION: No fracture or dislocation. Thinning of the cortex of the medial aspect ofthe first distal phalanx which could represent early osteomyelitis. Moredefinitive evaluation with radionuclide bone scan should be considered ifclinically warranted. Code 70019 -------- FINAL REPORT -------- Dictated By: Eddie Jose Dictated Date: 05/20/2025 07:57 ET Assigned Physician: Eddie Jose Reviewed and Electronically Signed By: Eddie Jose Signed Date: 05/20/2025 07:59 ET Workstation ID: [id number] Transcribed By: Self Edit Transcribed Date: 05/20/2025 07:57 ET us [facility] IMG XR PROCEDURES Final Res ult * Debridement Diabetic Ulcer Right Toe D1, Great (05/19/2025 12:30 PM EDT) Sly Gaming PA - 05/19/2025 12:30 PM EDT LAVON Moe 05/19/2025 1:42 PM Debridement Diabetic Ulcer Right Toe D1, Great Performed by: LAVON Moe Authorized by: LAVON Moe Associated wounds: Wound Diabetic Ulcer 03/03/25 Toe D1, Great Right Consent: Consent obtained: Verbal Consent given by: Patient Risks discussed: Yes Time out: Immediately prior to the procedure a time out was called Debridement Details: Performed by: PA Type: surgical Level: subcutaneous tissue Pain control: Lidocaine 4% Severity of Tissue Pre Debridement: Fat layer exposed Severity of Tissue Post Debridement: Fat layer exposed Time taken: 05/19/2025 12:42 PM Length (cm): 1.9 Width (cm): 1 Depth (cm): 0.2 Area (cm^2): 1.9 Time taken: 05/19/2025 12:43 PM Length (cm): 1.9 Width (cm): 1 Depth (cm): 0.2 Percent Debrided (%): 100 Surface Area (cm^2): 1.9 Area Debrided (cm^2): 1.9 Volume (cm^3): 0.38 Tissue and other material debrided: dermis, epidermis and subcutaneous tissue Devitalized tissue debrided: biofilm, callus and slough Instrument: Curette Amount of bleeding: none Hemostasis obtained with: Not applicable Procedural pain: 0 Post-procedural pain: 0 Response to treatment: Procedure was tolerated well [facility] IN CLINIC/BEDSIDE ORDERABLE S Final Result * Debridement Diabetic Ulcer Right Toe D1, Great (05/05/2025 12:30 PM EDT) Sergio Landin MD - 05/05/2025 12:30 PM EDT LAVON Moe 05/05/2025 1:08 PM Debridement Diabetic Ulcer Right Toe D1, Great Performed by: LAVON Moe Authorized by: LAVON Moe Associated wounds: Wound Diabetic Ulcer 03/03/25 Toe D1, Great Right Consent: Consent obtained: Verbal Consent given by: Patient Risks discussed: Yes Time out: Immediately prior to the procedure a time out was called Debridement Details: Performed by: LAVON Type: surgical Level: subcutaneous tissue Pain control: Lidocaine 4% Severity of Tissue Pre Debridement: Fat layer exposed Severity of Tissue Post Debridement: Fat layer exposed Time taken: 05/05/2025 12:38 PM Length (cm): 1.7 Width (cm): 0.7 Depth (cm): 0.1 Area (cm^2): 1.19 Time taken: 05/05/2025 12:39 PM Length (cm): 1.7 Width (cm): 0.7 Depth (cm): 0.1 Percent Debrided (%): 100 Surface Area (cm^2): 1.19 Area Debrided (cm^2): 1.19 Volume (cm^3): 0.12 Tissue and other material debrided: dermis, epidermis and subcutaneous tissue Devitalized tissue debrided: biofilm, callus and slough Instrument: Curette Amount of bleeding: small Hemostasis obtained with: Pressure and silver nitrate Procedural pain: 0 Post-procedural pain: 0 Response to treatment: Procedure was tolerated well us [facility] IN CLINIC/BEDSIDE ORDERABLE S Final Result * Debridement Diabetic Ulcer Right Toe D1, Great (04/21/2025 12:45 PM EDT) Sergio Landin MD - 04/21/2025 12:45 PM EDT LAVON Moe 04/21/2025 1:22 PM Debridement Diabetic Ulcer Right Toe D1, Great Performed by: LAVON Moe Authorized by: LAVON Moe Associated wounds: Wound Diabetic Ulcer 03/03/25 Toe D1, Great Right Consent: Consent obtained: Verbal Consent given by: Patient Risks discussed: Yes Time out: Immediately prior to the procedure a time out was called Debridement Details: Performed by: LAVON Type: surgical Level: subcutaneous tissue Pain control: Lidocaine 4% Severity of Tissue Pre Debridement: Fat layer exposed Severity of Tissue Post Debridement: Fat layer exposed Time taken: 04/21/2025 12:56 PM Length (cm): 1.6 Width (cm): 0.8 Depth (cm): 0.3 Area (cm^2): 1.28 Time taken: 04/21/2025 12:57 PM Length (cm): 1.6 Width (cm): 0.8 Depth (cm): 0.3 Percent Debrided (%): 100 Surface Area (cm^2): 1.28 Area Debrided (cm^2): 1.28 Volume (cm^3): 0.38 Tissue and other material debrided: dermis, epidermis and subcutaneous tissue Devitalized tissue debrided: biofilm, callus and slough Instrument: Blade and forceps Amount of bleeding: none Hemostasis obtained with: Not applicable Procedural pain: 0 Post-procedural pain: 0 Response to treatment: Procedure was tolerated well [facility] IN CLINIC/BEDSIDE ORDERABLE S Final Result * Debridement Diabetic Ulcer Right Toe D1, Great (03/31/2025 1:45 PM EDT) Sergio Landin MD - 03/31/2025 1:45 PM EDT LAVON Moe 03/31/2025 2:38 PM Debridement Diabetic Ulcer Right Toe D1, Great Performed by: LAVON Moe Authorized by: LAVON Moe Associated wounds: Wound Diabetic Ulcer 03/03/25 Toe D1, Great Right Consent: Consent obtained: Verbal Consent given by: Patient Risks discussed: Yes Time out: Immediately prior to the procedure a time out was called Debridement Details: Performed by: LAVON Type: surgical Level: subcutaneous tissue Pain control: Lidocaine 4% Severity of Tissue Pre Debridement: Fat layer exposed Severity of Tissue Post Debridement: Fat layer exposed Time taken: 03/31/2025 1:58 PM Length (cm): 1.5 Width (cm): 0.8 Depth (cm): 0.1 Area (cm^2): 1.2 Time taken: 03/31/2025 1:59 PM Length (cm): 1.5 Width (cm): 0.8 Depth (cm): 0.1 Percent Debrided (%): 100 Surface Area (cm^2): 1.2 Area Debrided (cm^2): 1.2 Volume (cm^3): 0.12 Tissue and other material debrided: dermis, epidermis and subcutaneous tissue Devitalized tissue debrided: callus Instrument: Curette Amount of bleeding: none Hemostasis obtained with: Not applicable Procedural pain: 0 Post-procedural pain: 0 Response to treatment: Procedure was tolerated well us [facility] IN CLINIC/BEDSIDE ORDERABLE S Final Result from Last 3 Months Additional Health Concerns Active Problems Noted Date Diagnosed Date Impaired Tissue 08/04/2024 Education needed on impact of smoking on wound 1 10/04/2023 Education needed related to ulceration/compromised skin integrity. 08/04/2024 Impaired Tissue 03/03/2025 Education needed on impact of smoking on wound 0 03/03/2025 Education needed related to ulceration/compromised skin integrity. 03/03/2025 Infection Onset Date Last Indicated MRSA 06/02/2025 06/02/2025 Insurance [employer] MED[employer]ARE [employer] [place]ICAID - [place] Advance Directives Documents on File Type Date Recorded Patient Broadcast Technician Expl anation Health Care Decision (hx) 02/03/2021 AD WATKINS DIRECTIVE Health Care Decision (hx) 02/03/2021 AD WATKINS DIRECTIVE Health Care Decision (hx) 02/03/2021 AD WATKINS DIRECTIVE Health Care Decision (hx) 02/03/2021 AD WATKINS DIRECTIVE Health Care Decision (hx) 02/03/2021 AD WATKINS DIRECTIVE Health Care Decision (hx) 02/03/2021 AD WATKINS DIRECTIVE Health Care Decision (hx) 02/03/2021 AD WAKTINS DIRECTIVE Health Care Decision (hx) 02/03/2021 AD [...] (hx) 01/17/2021 AD WATKINS DIRECTIVE Care Teams Pre Press Manager Relationship Specialty Start Date End Date Pollo Thurston MD [address] [place] [id number] PCP - General Internal Medicine 06/02/25
--- OUTSIDE RECORDS SUMMARY | 2025-06-29 09:49 | XMS_ITS ---
Care Plan Created on: June 29, 2025 Kirby Christianson : 1950 Sex: Male Author Organization [facility] Address [address] [place] [address] Phone Care Team Providers Care Production Posting Clerk Name Role Phone Pollo Thurston MD Primary Care Provider [phone] Active Problems Problem Noted Date Diagnosed Date Osteomyelitis of right foot ([facility] V24, [facility] V28) 06/02/2025 Type 2 diabetes mellitus wit h foot ulcer (CODE) ([facility] V24, [facility] V28) 03/03/2025 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 right foot with fat layer exposed ([facility] V24, [facility] V28) 03/03/2025 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 right lower leg with fat layer exposed ([facility] V24, [facility] V28) 08/04/2024 Diabetes mellitus due to und erlying condition with diabetic autonomic neuropathy ([facility] V24, [facility] V28) 08/04/2024 Corns and callosities 08/04/2024 Chronic venous hypertension (idiopathic) with ulcer and inflammation of right lower extremity ([facility] V24, [facility] V28) 08/04/2024 History of colon polyps 11/19/2023 Overview (11/19/2023): 10/20/2015 Dyspnea on exertion 09/27/2021 Cerebrovascular accident (CVA) ([facility] V24, [facility] V28) 04/13/2021 Overview (11/19/2023): Last Assessment & [...] Doxazosin was decreased as well Pulmonary embolism ([facility] V24, [facility] V28[facility] Osteomyelitis of toe of righ t foot ([facility] V24, [facility] V28) 06/04/2019 CKD (chronic kidney disease) stage 3, GFR 30-59 ml/min ([facility] V24, [facility] V28) 04/08/2019 Microalbuminuria 04/08/2019 Chronic back pain 11/03/2018 Coronary artery disease invo lving [place] coronary artery of [place] heart without angina pectoris 10/01/2017 Overview (11/19/2023): Last Assessment & Plan: No ischemic or heart failure symptoms. 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 ([facility] V24, [facility] V28) 10/31/2016 Osteoarthritis of spine with radiculopathy, lumb ar region 10/31/2016 Obstructive sleep apnea 01/24/2016 Overview (11/19/2023): [facility] Polysomnogram: Date 12/10/2017; SE 77%; SM 87%; [...] by 2018 diagnostic polysomnogram. Background diabetic retinopathy ([facility] V24, [facility] V28) 10/20/2015 Depressive disorder 10/20/2015 Diabetic neuropathy ([facility] V24, [facility] V28) 0 10/20/2015 DM (diabetes mellitus), type 2 with ophthalmic complications ([facility] V24, [facility] V28) 10/20/2015 Type 2 diabetes mellitus wit h neurological manifestations ([facility] V24, [facility] V28) 10/20/2015 Diverticulosis 10/20/2015 Overview (11/19/2023): CN [...] goal LDL is less than 70. Old ME (myocardial infarction) 10/07/2015 Overview (11/19/2023): stentsx2, one in 2003 and RCA stent 04/25 Type 2 diabetes mellitus wit h renal manifestations ([facility] V24, [facility] V28) 10/07/2015 Additional Health Concerns Active Problems Noted Date Diagnosed Date Impaired Tissue 08/04/2024 Education needed on impact of smoking on wound 1 10/04/2023 Education needed related to ulceration/compromised skin integrity. 08/04/2024 Impaired Tissue 03/03/2025 Education needed on impact of smoking on wound 0 03/03/2025 Education needed related to ulceration/compromised skin integrity. 03/03/2025 Infection Onset Date Last Indicated MRSA 06/02/2025 06/02/2025 Goals Goal Patient Goal Type Associated Problems [...] caregiver on proper wound care procedures 03/03/2025 Record wound depth 03/03/2025 Record total [...] Educate caregiver on proper wound care procedures; Record wound depth; Record total wound area; [...]
== END 2025-06-29 10:09 | disposition home or self-care (01) ==
LOC: HO.HMCSH 09:07
PROVIDERS: PCP Physician Assistant Medical; Visit Provider Physician Assistant Medical
DX: E11.9 Type 2 diabetes mellitus without complications (principal); Z79.4 Long term (current) use of insulin; I12.9 Hypertensive chronic kidney disease with stage 1 through stage 4 chronic kidney disease, or unspecified chronic kidney disease; N18.9 Chronic kidney disease, unspecified; N40.0 Benign prostatic hyperplasia without lower urinary tract symptoms; M54.9 Dorsalgia, unspecified; G89.29 Other chronic pain; E78.5 Hyperlipidemia, unspecified; Z23 Encounter for immunization

== ENCOUNTER → 2025-06-29 09:07 | Outpatient (BNVA) | payer MEDICARE, SELFPAY | PROVIDERS: PCP Internal Medicine; Visit Provider Physician Assistant Medical | DX: E11.22 Type 2 diabetes mellitus with diabetic chronic kidney disease (principal); I12.9 Hypertensive chronic kidney disease with stage 1 through stage 4 chronic kidney disease, or unspecified chronic kidney disease; N18.9 Chronic kidney disease, unspecified; M54.9 Dorsalgia, unspecified; G89.4 Chronic pain syndrome; N40.0 Benign prostatic hyperplasia without lower urinary tract symptoms; E78.5 Hyperlipidemia, unspecified; Z23 Encounter for immunization; Z79.4 Long term (current) use of insulin | CPT/HCPCS: 83036; 90471; 90656; 96127; 99212 ==

== ENCOUNTER 2025-06-30 10:41 | Outpatient (REF) | payer MEDICARE, SELFPAY ==
--- OUTSIDE RECORDS SUMMARY | 2024-04-27 09:45 | XMS_ITS ---
Author Organization [facility] Address [address] [place] [address] Care Team Providers Care Qa Test Lead Name Role Phone Pollo Thurston Primary Care Provider Andrzej Ramirez Unavailable [phone] Ced Menchaca Unavailable [phone] REASON FOR VISIT Painful thick toenails which are aggrevated by shoes and causes difficulty standing/walking Medications Medication SIG (Take, Route, Frequency, Duration) Notes Start Date End Date Status Extra Depth Diabetic Shoes with 3 Pair Custom heat-molded multi-density innersoles for 1 year Dx: Active Encounters Encounter Location Date Provider Diagnosis [facility] [address] [place] [address] 04/27/2024 Ced Menchaca Type 1 diabetes mellitus [...] Provider Name:Andrzej Camargo , 2025 10:00:00 AM, [address] [place] [address], [phone], Procedure Notes * Category Sub-Category Detail Notes Keratoma Treatment Parring or Cutting o f Benign Hyperkeratotic Lesion(s) 56387 ( >4 Lesions) - The Benign hyperkeratotic [...] as necessary. Patient chooses, no pharmaceutical tx (23536) Nail Reduction Nail Reduction Trimming of dyst rophic nails performed to reduce/remove overall nail length and girth, by manual and electrical means with use of a nail nipper and/or dremel, to more viable healthy nail plate or bed tissue 6-10 (G0127) Progress Notes * Kirby CHRISTIANSONDOB:1950 ( 74 yo M)Acc No.[id number]:04/27/2024 Progress Note Patient: Kirby ALVARENGA Provider: Lamont Hernandez DPM :1950 A ge:73 Y S ex:Male Date:04/27/2024 Address: [address], [address] [facility] Pcp:Pollo Thurston Subjective: * Chief Complaints: * [...] enies. C ardiovascular: Pacemaker d enies. 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 W PW d enies. [...] as necessary. Patient chooses, no pharmaceutical tx (52277). K eratoma Treatment: Parring or Cutting of [...] SKIN LESIONS, OVER 4, Modifiers: XS , 06517 DEBRIDE NAIL, 1-5, Modifiers: XS , G0127 [...] 0 04/27/2024 Generated for Zachary wells/Concepcion/Jasmeet on: 12:47 PM EDT History and Physical Notes * [...]
--- OUTSIDE RECORDS SUMMARY | 2025-06-24 15:30 | XMS_ITS | Encounter Summary ---
Author Organization [facility] Address [address] [place] [address] Care Team Providers Care Motor Vehicle License Clerk Name Role Phone Pollo Thurston MD Primary Care Provider [phone]- [phone] Reason for Visit * Reason Comments Wound Care Encounter Details Date Type Department Care Team (Late st Contact Info) Description 06/24/2025 3:30 PM EDT Office Visit [facility] [address] [place] [id number] Sergio Rodriguez MD [address] [place] [address] Type 2 diabetes mellitus with foot ulcer (CODE) ([facility] V24, [facility] V28) (Primary Dx); Non-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 layer exposed ([facility] V24, [facility] V28) Social History Tobacco Use Types Packs/Day Years Used Date Smoking Tobacco: Never Smokeless Tobacco: Never Alcohol Use Standard Drinks/Week Comments Not Currently 0 (1 standard drink = 0.6 oz pur e alcohol) Sex and Gender Information Value Date Recorded Sex Assigned at Not on file Legal Sex Male 1:14 PM EDT Gender Identity Not on file Sexual Orientation Not on file documented as of this encounter Last Filed Vital Signs Vital Sign Reading Time Taken Comments Blood Pressure 124/57 06/24/2025 3:41 PM EDT Pulse 61 06/24/2025 3:41 PM EDT Temperature 36.1 C (96.9 F) 06/24/2025 3:41 PM EDT Respiratory Rate 17 06/24/2025 3:41 PM EDT Oxygen Saturation 95% 06/24/2025 3:41 PM EDT Inhaled Oxygen Concentration - - Weight - - Height - - Body Mass Index - - documented in this encounter Progress Notes * Asha Goodwin RN - 06/24/2025 3:30 PM EDT PROVIDER ORDERS Go to ER if you are presenting with fever, chills, increased redness, pain, swelling, warmth aroundwound area and/or foul smelling odor. If you have any questions or concerns, please contact the [facility] at . Follow up(s)/ Referrals: Infectious Disease: [facility] Infectious Disease- pending appt [facility] Infectious Disease [address] [place] [address] -Arterial ultrasound- Appoint 08/23/25 at 1:30P at [facility] [address], [address] Group Home: N/A Additional Orders: Increase protein in your diet to help promote wound healing Lidocaine Orders: Apply Lidocaine 5% Topical Ointment prior to debridements at Wound Care appointments -Continue Doxycycline and Levofloxacin per ID Edema Control: (If your compression wrap(s) feel to tight, please elevate your leg(s) about heart level. If your wrap(s) are becoming painful and/or you loose sensation of toes/ are having toe discoloration (a change from your baseline), please remove / unwrap compression and notify [facility] at . ) N/A Offloading: Orthofelt, Wear Diabetic shoes with inserts Negative Pressure Wound Therapy: (If wound vac is off/non functioning for more than 2 hours, please remove vac dressing, apply a wetto dry dressing and notify your home care agency) N/A Cellular/Tissue Based Products: Epicord- plan for next week Bathing / Showering / Hygiene: May shower with protection but DO NOT get wound dressing(s) wet. Protect dressing(s) with water repellant cover ( for example- large plastic bag or cast bag) and then may take shower. Non-wound Condition/ Other Skin Care: N/A Wound Location(s): Wound #1 (Right great toe plantar): Cleanser: Cleanse with Normal Saline Periwound: Apply Zinc Oxide to palmira wound Topical: N/A Primary dressing: Hydrofiber with silver (Aquacel AG)- cut to fit to wound bed Secondary dressinx2 woven gauze ( non-sterile), Orthofelt Secure with: 2 conforming gauze roll, Spandage size 2, 1 paper tape Compression Therapy: N/A Dressing Change Frequency: Daily (to every other day depending on drainage) * Sergio Rodriguez MD - 06/24/2025 3:30 PM EDTAssociated Order(s): Debridement Diabetic Ulcer Right Toe D1, Great Post-Procedure Diagnose(s): Non-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 layer exposed ([facility] V24, [facility] V28); Type 2 diabetes mellitus with foot ulcer (CODE) ([facility] V24, [facility] V28) Images from the original note were not included. [facility] [place] [address] Office Visit Visit Date: 06/24/2025 Patient Name: Kirby Christianson Date of : 1950 PCP: Pollo Thurston MD HPI: Kirby Christianson is a 74 y.o. male who presents to the to the wound care center for consultation of a right great toe wound. Patient states wound occurred over the past 10 days after receiving his new diabetic shoes. Patient does not believe the shoes were widened as the other ones have in the past. Patient is walking up to 3-1/2 miles daily with his standing walker. Patient has longstanding history of CVA, Nick artery disease, hypertension, and BPH. Patient also has a longstanding history ofdiabetes and history of venous reflux disease in the right lower extremity which was treated by [facility] tacitly since been discharged from that clinic. [facility] which she has 1 dose left and use topical Silvadene at that time. Patient also uses felt padding to assist in offloading. Patient denies any fever or chill 06/24/2025 Returns to the wound care center for follow-up of a right great toe wound with osteomyelitis. On doxycycline and levofloxacin based on recommendations from [facility] infectious disease. He has been taking these for the last 2 to 3 days. Has inserts that help offload the area. Reports that he still does quite a bit of walking. No fevers or chills. 05/20/2025 IMPRESSION: No fracture or dislocation. Thinning of the cortex of the medial aspect of the first distal phalanxwhich could represent early osteomyelitis. More definitive evaluation with radionuclide bone scan should be considered if clinically warranted. Code 00212 -------- FINAL REPORT -------- Dictated By: Eddie Jose 05/31/2025 MRI Right Foot IMPRESSION: 1. Osteomyelitis of the distal phalanx of the right great toe with overlying ulcer 2. Nonspecific patchy area of abnormal bone marrow signal involving the proximal phalanx which may be reactive; underlying osteomyelitis is not entirely excluded. 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 Patient has appt 06/02/25 Assessment and Plan: Type 2 diabetes mellitus with foot ulcer (CODE) ([facility] V24, [facility] V28) (Primary) Non-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 layer exposed ([facility] V24, [facility]) Other orders - Debridement Diabetic foot wound with osteomyelitis. Measuring similar to last week but has just started antibiotics and I am not sure he is offloading appropriately. Unfortunately we do not have supplies to do atotal contact cast. He is a candidate for hyperbaric oxygen therapy and has actually received this in the past with good success for healing a similar wound. Will discuss this further if there is no improvement with antibiotics, offloading and skin substitute which has been approved. Follow-up in 1week. All questions were answered to his satisfaction. He was counseled regarding my impressions, instructions for management, and the importance of compliance with treatment. Follow up in about 1 week (around 07/01/2025). >>>>>>>>>>>>>>>>>>>>>>>>>>>>>>>>>>>>>>>>>>>>>>>>>>> Vital Signs: Visit Vitals BP 124/57 Pulse 61 Temp 36.1 ??C (96.9 ??F) (Temporal) Resp 17 Review of Systems: Review of Systems Constitutional: Negative for chills and fever. Skin: Positive for wound. PHYSICAL EXAM Physical Exam Vitals and nursing note reviewed. Constitutional: Appearance: Normal appearance. He is not ill-appearing. Pulmonary: Effort: Pulmonary effort is normal. Skin: Comments: See wound details in assessment and procedure note Right hallux plantar ulceration has granulation tissue at the base. There is callus formation at the wound edges that overlies the wound prior to debridement. No periwound erythema. No tunneling or undermining. WOUND ASSESSMENT If photograph of wound not visible on this note, please check under Media tab. Wound Diabetic Ulcer 03/03/25 Toe D1, Great Right (Active) Date First Assessed: 03/03/25 Primary Wound Type: Diabetic Ulcer Wound Approximate Age at First Assessment (Weeks): 1 weeks Hand Hygiene Completed: Yes Diabetic Ulcer Grading: Grade 1 Location: Toe D1, Great Wound Location Orientation: Right Assessments 03/03/2025 8:18 AM 06/24/2025 3:43 PM Wound Image Wound Bed Tissue Assessment Granulation Granulation Palmira-Wound Assessment Callused Callused;Macerated Shape Oval -- Wound Length (cm) 1.9 cm 1.8 cm Wound Width (cm) 1.5 cm 1 cm Wound Surface Area (cm^2) 2.85 cm^2 1.41 cm^2 Wound Depth (cm) 0.1 cm 0.1 cm Wound Volume (cm^3) 0.285 cm^3 0.094 cm^3 Wound Healing % -- 67 Drainage Description Serosanguineous Serosanguineous Drainage Amount Moderate Moderate Treatments Cleansed Cleansed;Other (Comment) Dressing Foam Alginate;[place] Offloading;Gauze Dressing Status Removed Removed Wound Bed Granulation (%) 100 % 100 % Wound Bed Epithelialization (%) 0 % -- Wound Bed Slough (%) 0 % 0 % Wound Bed Eschar (%) 0 % 0 % Tunneling 0 cm 0 cm Undermining 0 cm 0 cm Edges Attached edges;Well-defined edges Well-defined edges Non-staged Wound Description Full thickness Full thickness Active Orders Date Order Priority Status Authorizing Provider 06/24/25 1614 Debridement Routine Active Sergio Rodriguez MD 06/02/25 1204 Wound Care Supplies Routine Active LAVON Moe - Wound Care Supplies: Normal saline for irrigation (sterile) - 500ml (1 paper tape) - Wound Care Supplies: Gauze 2x2 (non sterile) - Wound Care Supplies: Other - Days Supply:: 30 - Debridement Performed:: Yes - Wound Drainage:: Moderate - Dispense As Written (PELON)?: Yes - Frequency of Dressing Change: daily - Further DME Specification:: see all supplies in comment box - Face to face evaluation was performed on: 06/02/2025 - Additional providers who completed a face to face evaluation of the patient:: PAVAN GATES 04/14/25 1132 Wound Care Supplies Routine Active LAVON Moe - Wound Care Supplies: Normal saline for irrigation (sterile) - 500ml (2x2 alginate ag / 2 petra wrap / 2 hypafix tape) - Wound Care Supplies: Gauze 2x2 (non sterile) - Wound Care Supplies: Other - Days Supply:: 30 - Debridement Performed:: Yes - Wound Drainage:: Moderate - Frequency of Dressing Change: daily - Further DME Specification:: see all supplies in comment box - Face to face evaluation was performed on: 04/14/2025 - Additional providers who completed a face to face evaluation of the patient:: PAVAN GATES 03/03/25 0857 Wound Care Supplies Routine Active LAVON Moe - Wound Care Supplies: Normal saline for irrigation (sterile) - 500ml (2x2 alginate ag / 2 hypafixtape) - Wound Care Supplies: Gauze 2x2 (non sterile) - Wound Care Supplies: Roll Gauze 2 - Wound Care Supplies: Other - Days Supply:: 30 - Debridement Performed:: Yes - Wound Drainage:: Moderate - Dispense As Written (PELON)?: Yes - Frequency of Dressing Change: daily - Further DME Specification:: see all supplies in comment box - Face to face evaluation was performed on: 03/03/2025 - Additional providers who completed a face to face evaluation of the patient:: PAVAN GATES Orders Date Order Priority Status Authorizing Provider 06/17/25 1539 Debridement Diabetic Ulcer Right Toe D1, Great Routine Completed LAVON Moe 06/09/25 1515 Debridement Diabetic Ulcer Right Toe D1, Great Routine Completed LAVON Moe 06/02/25 1203 Debridement Diabetic Ulcer Right Toe D1, Great Routine Completed LAVON Moe 05/19/25 1255 Debridement Diabetic Ulcer Right Toe D1, Great Routine Completed LAVON Moe 05/05/25 1303 Debridement Diabetic Ulcer Right Toe D1, Great Routine Completed LAVON Moe 04/21/25 1312 Debridement Diabetic Ulcer Right Toe D1, Great Routine Completed LAVON Moe 03/31/25 1433 Debridement Diabetic Ulcer Right Toe D1, Great Routine Completed LAVON Moe 03/24/25 1424 Debridement Diabetic Ulcer Right Toe D1, Great Routine Completed LAVON Moe 03/17/25 1542 Debridement Diabetic Ulcer Right Toe D1, Great Routine Completed LAVON Moe 03/10/25 1619 Debridement Diabetic Ulcer Right Toe D1, Great Routine Completed LAVON Moe 03/03/25 0854 Debridement Diabetic Ulcer Right Toe D1, Great Routine Completed LAVON Moe Pertinent Labs: WBC Date Value Ref Range Status 06/02/2025 7.6 4.8 - 10.8 K/mcL Final Procedure Note: Debridement Diabetic Ulcer Right Toe D1, Great Performed by: Sergio Rodriguez MD Authorized by: Sergio Rodriguez MD Associated wounds: Wound Diabetic Ulcer 03/03/25 Toe D1, Great Right Consent: Consent obtained: Verbal Consent given by: Patient Risks discussed: Yes Time out: Immediately prior to the procedure a time out was called Debridement Details: Performed by: Physician Type: surgical Level: subcutaneous tissue Pain control: Lidocaine 4% Pain control administration: topical anesthesia Severity of Tissue Pre Debridement: Fat layer exposed Severity of Tissue Post Debridement: Fat layer exposed Time taken: 06/24/2025 3:43 PM Length (cm): 1.8 Width (cm): 1 Depth (cm): 0.1 Area (cm^2): 1.41 Time taken: 06/24/2025 3:44 PM Length (cm): 2 Width (cm): 1.2 Depth (cm): 0.2 Percent Debrided (%): 100 Surface Area (cm^2): 2.4 Area Debrided (cm^2): 2.4 Volume (cm^3): 0.48 Tissue and other material debrided: dermis, epidermis and subcutaneous tissue Devitalized tissue debrided: callus, exudate and slough Instrument: Curette Amount of bleeding: small Hemostasis obtained with: Pressure Procedural pain: 0 Post-procedural pain: 0 Response to treatment: Procedure was tolerated well PROVIDER ORDERS Patient Instructions PROVIDER ORDERS Go to ER if you are presenting with fever, chills, increased redness, pain, swelling, warmth aroundwound area and/or foul smelling odor. If you have any questions or concerns, please contact the [facility] at . Follow up(s)/ Referrals: Infectious Disease: [facility] Infectious Disease- pending appt [facility] [address] [place] [address] -Arterial ultrasound- Appoint 08/23/25 at 1:30P at [facility] [address], [address] Group Home: N/A Additional Orders: Increase protein in your diet to help promote wound healing Lidocaine Orders: Apply Lidocaine 5% Topical Ointment prior to debridements at Wound Care appointments -Continue Doxycycline and Levofloxacin per ID Edema Control: (If your compression wrap(s) feel to tight, please elevate your leg(s) about heart level. If your wrap(s) are becoming painful and/or you loose sensation of toes/ are having toe discoloration (a change from your baseline), please remove / unwrap compression and notify [facility] at . ) N/A Offloading: Orthofelt, Wear Diabetic shoes with inserts Negative Pressure Wound Therapy: (If wound vac is off/non functioning for more than 2 hours, please remove vac dressing, apply a wetto dry dressing and notify your home care agency) N/A Cellular/Tissue Based Products: Epicord- plan for next week Bathing / Showering / Hygiene: May shower with protection but DO NOT get wound dressing(s) wet. Protect dressing(s) with water repellant cover ( for example- large plastic bag or cast bag) and then may take shower. Non-wound Condition/ Other Skin Care: N/A Wound Location(s): Wound #1 (Right great toe plantar): Cleanser: Cleanse with Normal Saline Periwound: Apply Zinc Oxide to palmira wound Topical: N/A Primary dressing: Hydrofiber with silver (Aquacel AG)- cut to fit to wound bed Secondary dressinx2 woven gauze ( non-sterile), Orthofelt Secure with: 2 conforming gauze roll, Spandage size 2, 1 paper tape Compression Therapy: N/A Dressing Change Frequency: Daily (to every other day depending on drainage) 06/24/2025 4:14 PM EDT Sergio Rodriguez MD * Mireille Yan RN - 06/24/2025 3:30 PM EDT Discharge Patient directed to check out at front sight attacher and collect visit summary with wound care directions and book follow up as directed. Dressings applied: Wound Location(s): Wound #1 (Right great toe plantar): Cleanser: Cleanse with Normal Saline Periwound: Apply Zinc Oxide to palmira wound Primary dressing: Hydrofiber with silver (Aquacel AG)- cut to fit to wound bed Secondary dressinx2 woven gauze ( non-sterile), Orthofelt Secure with: 2 conforming gauze roll, Spandage size 2, 1 paper tape Dressing technique was demonstrated and explained. Patient questions answered. Pt discharge from wound care center without issue or incidence. documented in this encounter Plan of Treatment Upcoming Encounters Date Type Department Care Team (Late st Contact Info) Description 07/01/2025 3:15 PM EDT Clinical Support [facility] [address] [place] [address] 08/23/2025 1:30 PM EST Ancillary Procedure [facility] [address] [address] documented as of this encounter Goals Goal [...] date (in notes) Care Plan Impaired Tissue No change(2024 4:05 PM EDT) Mireille Dan RN Patient and Caregiver Understand Wound Care Education Care Plan Impaired Tissue On track( 025 4:05 PM EDT) Mireille Dan RN Wound volume [...] ulceration/compr omised skin integrity. Mireille Dan RN documented as of this encounter Procedures Procedure Name Priority Date/Time Associated Diagnosis Comments DEBRIDEMENT Routine 06/24/2025 3:30 PM EDT Type 2 diabetes mellitus with foot ulcer (CODE) ([facility] V24, [facility] V28) Non-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 layer exposed ([facility] V24, [facility] V28) documented in this encounter Results * Debridement Diabetic Ulcer Right Toe D1, Great (06/24/2025 3:30 PM EDT) Sergio Landin MD - 06/24/2025 3:30 PM EDT Sergio Rodriguez MD 06/24/2025 4:15 PM Debridement Diabetic Ulcer Right Toe D1, Great Performed by: Sergio Rodriguez MD Authorized by: Sergio Rodriguez MD Associated wounds: Wound Diabetic Ulcer 03/03/25 Toe D1, Great Right Consent: Consent obtained: Verbal Consent given by: Patient Risks discussed: Yes Time out: Immediately prior to the procedure a time out was called Debridement Details: Performed by: Physician Type: surgical Level: subcutaneous tissue Pain control: Lidocaine 4% Pain control administration: topical anesthesia Severity of Tissue Pre Debridement: Fat layer exposed Severity of Tissue Post Debridement: Fat layer exposed Time taken: 06/24/2025 3:43 PM Length (cm): 1.8 Width (cm): 1 Depth (cm): 0.1 Area (cm^2): 1.41 Time taken: 06/24/2025 3:44 PM Length (cm): 2 Width (cm): 1.2 Depth (cm): 0.2 Percent Debrided (%): 100 Surface Area (cm^2): 2.4 Area Debrided (cm^2): 2.4 Volume (cm^3): 0.48 Tissue and other material debrided: dermis, epidermis and subcutaneous tissue Devitalized tissue debrided: callus, exudate and slough Instrument: Curette Amount of bleeding: small Hemostasis obtained with: Pressure Procedural pain: 0 Post-procedural pain: 0 Response to treatment: Procedure was tolerated well us Sergio Rodriguez MD IN CLINIC/BEDSIDE ORDERAB LES Final Result documented in this encounter Visit Diagnoses Diagnosis Type 2 diabetes mellitus with foot ulcer (CODE) ([facility] V24, [facility] V28)- Primary Non-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 layer exposed ([facility] V24, [facility] V28) documented in this encounter Additional Health Concerns Active Problems Noted Date Diagnosed Date Impaired Tissue 08/04/2024 Education needed on impact of smoking on wound 1 10/04/2023 Education needed related to ulceration/compromised skin integrity. 08/04/2024 Impaired Tissue 03/03/2025 Education needed on impact of smoking on wound 0 03/03/2025 Education needed related to ulceration/compromised skin integrity. 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
--- OUTSIDE RECORDS SUMMARY | 2025-06-30 12:47 | XMS_ITS | Clinical Summary ---
Author Organization [facility] Address [address] [place] [address] Phone Care Team Providers Care Accountant Controller Name Role Phone Pollo Thurston MD Primary Care Provider [phone] Allergies Active Allergy Reactions Criticality Noted Date [...] 2 diabetes mellitus with foot ulcer (CODE) ([facility] V24, [facility] V28),Non-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 layer exposed ([facility] V24, [facility] V28),Diabetic polyneuropathy associated with type 2 diabetes mellitus ([facility] V24, [facility] V28),Other chronic osteomyelitis of right foot ([facility] V24, [facility] V28) Take 1 capsule (100 mg total) [...] Date Diagnosed Date Osteomyelitis of right foot ([facility] V24, [facility]/ C V28) 06/02/2025 Type 2 diabetes mellitus wit h foot ulcer (CODE) ([facility] V24, [facility] V28) 03/03/2025 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 right foot with fat layer exposed ([facility] V24, [facility] V28) 03/03/2025 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 right lower leg with fat layer exposed ([facility] V24, [facility] V28) 08/04/2024 Diabetes mellitus due to und erlying condition with diabetic autonomic neuropathy ([facility] V24, [facility] V28) 08/04/2024 Corns and callosities 08/04/2024 Chronic venous hypertension (idiopathic) with ulcer and inflammation of right lower extremity ([facility] V24, [facility] V28) 08/04/2024 History of colon polyps 11/19/2023 Overview (11/19/2023): 10/20/2015 Dyspnea on exertion 09/27/2021 Cerebrovascular accident (CVA) ([facility] V24, [facility] V28) 04/13/2021 Overview [...] Doxazosin was decreased as well Pulmonary embolism ([facility] V24, [facility] V28) Osteomyelitis of toe of righ t foot ([facility] V24, [facility] V28) 06/04/2019 CKD (chronic kidney disease) stage 3, GFR 30-59 ml/min ([facility] V24, [facility] V28) 04/08/2019 Microalbuminuria 04/08/2019 Chronic back pain 11/03/2018 Coronary artery disease invo lving [place] coronary artery of [place] heart without angina pectoris 10/01/2017 Overview (11/19/2023): Last Assessment & Plan: No ischemic or heart failure symptoms. 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 ([facility] V24, [facility] V28) 10/31/2016 Osteoarthritis of spine with radiculopathy, lumb ar region 10/31/2016 Obstructive sleep apnea 01/24/2016 Overview (11/19/2023): [facility] Polysomnogram: Date 12/10/2017; SE 77%; SM 87%; [...] by 2018 diagnostic polysomnogram. Background diabetic retinopathy ([facility] V24, [facility] V28) 10/20/2015 Depressive disorder 10/20/2015 Diabetic neuropathy ([facility] V24, [facility] V28) 0 10/20/2015 DM (diabetes mellitus), type 2 with ophthalmic complications ([facility] V24, [facility] V28) 10/20/2015 Type 2 diabetes mellitus wit h neurological manifestations ([facility] V24, [facility] V28) 10/20/2015 Diverticulosis 10/20/2015 Overview (11/19/2023): CN [...] goal LDL is less than 70. Old [place] (myocardial infarction) 10/07/2015 Overview (11/19/2023): stentsx2, one in 2003 and RCA stent 04/25 Type 2 diabetes mellitus wit h renal manifestations ([facility] V24, [facility] V28) 10/07/2015 Encounters Date Type Department Care Team Description 06/24/2025 3:30 PM EDT Office Visit [facility] [address] [place] [phone] Sergio Rodriguez MD Type 2 diabetes mellitus with foot ulcer (CODE) ([facility]/HCC V24, [facility]/HCC V28) (Primary Dx); Non-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 layer exposed ([facility] V24, [facility]/H[facility] V28) 06/17/2025 3:15 PM EDT Office Visit [facility] [address] [place] [phone] Sly Welch PA Type 2 diabetes mellitus with foot ulcer (CODE) ([facility] V24, [facility] V28) (Primary Dx); Non-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 layer exposed (CMS/HCC V24, CMS/HCC V28) 06/09/2025 2:45 PM EDT Office Visit [facility] [address] [place] [phone] Sly Welch PA Type 2 diabetes mellitus with foot ulcer (CODE) (CMS/HCC V24, CMS/HCC V28) (Primary Dx); Non-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 layer exposed ([facility]/HCC V24, CMS/HCC V28); Diabetic polyneuropathy associated with type 2 diabetes mellitus ([facility]/HCC V24, [facility]/HCC V28); Other chronic osteomyelitis of right foot (CMS/HCC V24, CMS/HCC V28) 06/07/2025 Telephone [facility] [address] [place] [phone] Keena Zamora RN 06/02/2025 11:30 AM EDT Office Visit [facility] [address] [place] [address] [phone] Sly Welch PA Type 2 diabetes mellitus [...] - 05/29/2025 11:59 PM EDT Hospital Encounter [facility] MRI [address] [place] [phone] Type 2 diabetes mellitus with foot ulcer (CODE) ([facility]/HCC V24, [facility]/HCC V28); Non-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 layer exposed (CMS/HCC V24, CMS/HCC V28); Diabetic polyneuropathy associated with type 2 diabetes mellitus (CMS/HCC V24, CMS/HCC V28) Discharge Disposition: Home or Self Care 05/20/2025 Telephone [facility] [address] [place] [phone] Mireille Yan RN 05/19/2025 1:18 PM EDT - 05/19/2025 11:59 PM EDT Hospital Encounter [facility] Xray [address] [place] [phone] Type 2 diabetes mellitus with foot ulcer (CODE) ([facility]/HCC V24, [facility]/HCC V28); Non-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 layer exposed (CMS/HCC V24, [facility]/HCC V28); Diabetic polyneuropathy associated with type 2 diabetes mellitus ([facility]/HCC V24, [facility]/HCC V28) Discharge Disposition: Home or Self Care 05/19/2025 12:30 PM EDT Office Visit [facility] [address] [place] [phone] Sly Welch PA Type 2 diabetes mellitus with foot ulcer (CODE) ([facility]/HCC V24, [facility]/HCC V28) (Primary Dx); Non-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 layer exposed (CMS/HCC V24, [facility]/HCC V28); Diabetic polyneuropathy associated with type 2 diabetes mellitus (CMS/HCC V24, CMS/HCC V28) 05/05/2025 12:30 PM EDT Office Visit [facility] [address] [place] [phone] Sly Welch PA Type 2 diabetes mellitus with foot ulcer (CODE) (CMS/HCC V24, CMS/HCC V28) (Primary Dx); Non-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 layer exposed (CMS/HCC V24, [facility]/HCC V28); Diabetic polyneuropathy associated with type 2 diabetes mellitus (CMS/HCC V24, CMS/HCC V28) 04/21/2025 12:45 PM EDT Office Visit [facility] [address] [place] [phone] Sly Welch PA Type 2 diabetes mellitus with foot ulcer (CODE) (CMS/HCC V24, CMS/HCC V28) (Primary Dx); Non-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 layer exposed (CMS/HCC V24, CMS/HCC V28); Diabetic polyneuropathy associated with type 2 diabetes mellitus (CMS/HCC V24, [facility] V28) 03/31/2025 1:45 PM EDT Office Visit [facility] [address] [place] [phone] Sly Welch PA Type 2 diabetes mellitus with foot ulcer (CODE) ([facility] V24, [facility] V28) (Primary Dx); Non-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 layer exposed ([facility] V24, [facility] V28); Diabetic polyneuropathy associated with type 2 diabetes mellitus ([facility] V24, [facility] V28) from Last 3 Months Immunizations Immunization [...] Date Comments Coronary artery disease invo lving [place] coronary artery with other forms of angina pectoris 10/07/2015 DX:Coronary artery disease involving [place] coronary artery with other forms of angina pectoris; COMMENT: stentsx2, no details, one in 2001, another 2004 BPH (benign prostatic hyperplasia) 10/07/2015 DX:BPH (benign prostatic hyperplasia) Hypercholesteremia 10/07/2015 DX:Hyperchole steremia Erectile dysfunction 10/17/2015 DX:Erectile dysfunction HTN (hypertension) 10/20/2015 DX:HTN (hyper tension) Onychomycosis 10/20/2015 DX:Onychomycosis Background diabetic retinopa thy ([facility] V24, [facility] V28) 10/20/2015 DX:Background diabetic reti nopathy (HCC) DM (diabetes mellitus), type 2 with ophthalmic complications ([facility] V24, [facility] V28) 10/20/2015 DX:DM (diabetes mellitus), t ype 2 with ophthalmic complications ([facility]) Old [place] (myocardial infarction) 10/07/2015 D X:Old [place] (myocardial infarction); COMMENT: stentsx2, no details, one in 2001, another 2004 Diverticulosis 10/20/2015 DX:Diverticulosi s; COMMENT: CN 2011 Depressive disorder 10/20/2015 DX:Depressiv e disorder GERD (gastroesophageal reflux disease) 10/20/2015 DX:GERD (gastroesophageal reflux disease) History of colon polyps 10/20/2015 DX:Histo ry of colon polyps; COMMENT: Type not specified in transfer notes Type 2 diabetes mellitus wit h vascular disease ([facility] V24, [facility] V28) 10/07/2015 DX:Type 2 diabetes mellitus with vascular disease ([facility]) Diabetic neuropathy ([facility] V24, [facility] V28) 10/20/2015 DX:Diabetic neuropathy ([facility]) Type 2 diabetes mellitus wit h neurological manifestations ([facility] V24, [facility] V28) 10/20/2015 DX:Type 2 diabetes mellitus with neurological manifestations ([facility]) Type 2 diabetes mellitus wit h renal manifestations ([facility] V24, [facility] V28) 10/07/2015 DX:Type 2 diabetes mellitus with renal manifestations ([facility]) Microalbuminuria 04/08/2019 DX:Microalbumin uria CKD (chronic kidney disease) stage 3, GFR 30-59 ml/min ([facility] V24, [facility] V28) 04/08/2019 DX:CKD (chronic kidney disea se) stage 3, GFR 30-59 ml/min ([facility]) Family History Medical History Relation Name Comments Diabetes Father Heart attack Mother at age 63 Heart attack Sister 1 at age 63 with heart condition, ?not [place] Diabetes Sister 2 Relation Name Status Comments [...] Description 07/01/2025 3:15 PM EDT Clinical Support [facility] [address] [place] [phone] 08/23/2025 1:30 PM EST Ancillary Procedure [facility] [address] [place] [phone] Health Maintenance Due Date Last Done Comments [...] 2 diabetes mellitus with foot ulcer (CODE) ([facility] V24, [facility] V28) Non-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 layer exposed ([facility] V24, CMS/HCC V28) DEBRIDEMENT Routine 06/17/2025 3:15 PM EDT Type 2 diabetes mellitus with foot ulcer (CODE) ([facility] V24, [facility] V28) Non-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 layer exposed ([facility] V24, [facility]/HCC V28) DEBRIDEMENT Routine 06/09/2025 2:45 [...] of right foot with fat layer exposed ([facility] V24, [facility] V28) Diabetic polyneuropathy associated with type 2 diabetes mellitus ([facility] V24, [facility] V28) from Last 3 Months Results * [...] LAB HEMETOLOGY METHOD 06/02/2025 2:20 PM EDT [facility] RBC 4.10(L) 4.50 - 5.50 M/mcL LAB HEMETOLOGY METHOD 06/02/2025 2:20 PM EDT [facility] Hemoglobin 12.1(L) 13.5 - 17.5 g/dL LAB HEMETOLOGY METHOD 06/02/2025 2:20 PM EDT [facility] Hematocrit 36.8(L) 42.0 - 54.0 % LAB HEMETOLOGY METHOD 06/02/2025 2:20 PM EDT [facility] MCV 88.9 79.0 - 98.0 FL LAB HEMETOLOGY METHOD 06/02/2025 2:20 PM EDT [facility] MCH 29.2 27.0 - 32.0 pcg LAB HEMETOLOGY METHOD 06/02/2025 2:20 PM EDT [facility] MCHC 32.9 32.0 - 37.0 g/dL LAB HEMETOLOGY METHOD 06/02/2025 2:20 PM EDT [facility] RDW 13.6 11.0 - 15.0 % LAB HEMETOLOGY METHOD 06/02/2025 2:20 PM EDT [facility] Platelets 229 130 - 400 K/mcL LAB HEMETOLOGY METHOD 06/02/2025 2:20 PM EDT [facility] MPV 11.4(H) 7.0 - 11.0 FL LAB HEMETOLOGY METHOD 06/02/2025 2:20 PM EDT [facility] NRBC 0.0 <1.0 % LAB HEMETOLOGY METHOD 06/02/2025 2:20 PM EDT [facility] NRBC Absolute 0.00 <0.10 K/mcL LAB HEMETOLOGY METHOD 06/02/2025 2:20 PM EDT [facility] Neutrophils Relative 60.7 % LAB HEMETOLOGY METHOD 06/02/2025 2:20 PM EDT [facility] Lymphocytes Relative 22.4 % LAB HEMETOLOGY METHOD 06/02/2025 2:20 PM EDT [facility] Monocytes Relative 10.9 % LAB HEMETOLOGY METHOD 06/02/2025 2:20 PM EDT [facility] Eosinophils Relative 5.1 % LAB HEMETOLOGY METHOD 06/02/2025 2:20 PM EDT [facility] Basophils Relative 0.4 % LAB HEMETOLOGY METHOD 06/02/2025 2:20 PM EDT [facility] Immature Granulocytes Relative 0.5 % LAB HEMETOLOGY METHOD 06/02/2025 2:20 PM EDT [facility] Neutrophils Absolute 4.61 1.50 - 7.00 K/mcL LAB HEMETOLOGY METHOD 06/02/2025 2:20 PM EDT [facility] Lymphocytes Absolute 1.70 1.00 - 5.00 K/mcL LAB HEMETOLOGY METHOD 06/02/2025 2:20 PM EDT [facility] Monocytes Absolute 0.83 0.20 - 1.00 K/mcL LAB HEMETOLOGY METHOD 06/02/2025 2:20 PM EDT [facility] Eosinophils Absolute 0.39 0.00 - 0.50 K/mcL LAB HEMETOLOGY METHOD 06/02/2025 2:20 PM EDT [facility] Basophils Absolute 0.03 0.00 - 0.20 K/[facility] LAB HEMETOLOGY METHOD 06/02/2025 2:20 PM EDT [facility] Immature Granulocytes Absolute 0.04(H) 0.00 - 0.03 K/[facility] LAB HEMETOLOGY METHOD 06/02/2025 2:20 PM EDT [facility] Blood Venous blood specimen / Unknown Venipuncture / Unknown 06/02/2025 12:23 PM EDT 06/02/2025 2:07 PM EDT [facility] LAB BLOOD ORDERABLES Final Result Performing Organization Address [facility]/ZIP Co de Phone Number [facility] [address] [place] [address], [place] [phone] * Sedimentation rate (06/02/2025 12:23 PM EDT) Sed Rate 16 0 - 20 mm/hr LAB HEMETOLOGY METHOD 06/02/2025 2:25 PM EDT [facility] Blood Venous blood specimen / Unknown Venipuncture / Unknown 06/02/2025 12:23 PM EDT 06/02/2025 2:07 PM EDT [facility] LAB BLOOD ORDERABLES Final Result [facility] [address] [place] [address], [place] [phone] * (ABNORMAL) C-reactive protein (06/02/2025 12:23 PM EDT) [facility] C-Reactive Protein 0.84(H) <=0.50 mg/dL LAB CHEMISTRY METHOD 06/02/2025 3:49 PM EDT [facility] Blood Venous blood specimen / Unknown Venipuncture / Unknown 06/02/2025 12:23 PM EDT 06/02/2025 2:07 PM EDT [facility] LAB BLOOD ORDERABLES Final Result [facility] [address] [place] [address], [place] [phone] * (ABNORMAL) Basic metabolic panel (06/02/2025 12:23 PM EDT) [facility] Sodium 136 133 - 145 mmol/L LAB CHEMISTRY METHOD 06/02/2025 3:48 PM EDT [facility] Potassium 4.2 3.5 - 5.5 mmol/L LAB CHEMISTRY METHOD 06/02/2025 3:48 PM T [facility] Chloride 104 96 - 110 mmol/L LAB CHEMISTRY METHOD 06/02/2025 3:48 PM EDT [facility] CO2 27 21 - 32 mmol/L LAB CHEMISTRY METHOD 06/02/2025 3:48 PM EDT [facility] Anion Gap 5 3 - 11 LAB CHEMISTRY METHOD 06/02/2025 3:48 PM EDT [facility] Glucose 174(H) 70 - 100 mg/dL LAB CHEMISTRY METHOD 06/02/2025 3:48 PM EDT [facility] BUN 24 5 - 25 mg/dL LAB CHEMISTRY METHOD 06/02/2025 3:48 PM EDT [facility] Creatinine 1.33(H) 0.70 - 1.30 mg/dL LAB CHEMISTRY METHOD 06/02/2025 3:48 PM EDT [facility] eGFR 57(L) >=60 mL/min/1. 73m2 LAB CHEMISTRY METHOD 06/02/2025 3:48 PM EDT [facility] Comment:Calculation based on the Chronic Kidney Disease Epidemiology Collaboration (CKD-EPI) equation refit without adjustment for race. BUN/Creatinine Ratio 18.0 LAB CHEMISTRY METHOD 06/02/2025 3:48 PM EDT [facility] Calcium 8.8 8.5 - 10.5 mg/dL LAB CHEMISTRY METHOD 06/02/2025 3:48 PM EDT [facility] Blood Venous blood specimen / Unknown Venipuncture / Unknown 06/02/2025 12:23 PM EDT 06/02/2025 2:07 PM EDT [facility] LAB BLOOD ORDERABLES Final Result [facility] [address] [place] [address], * (ABNORMAL) Culture wound with gram stain (06/02/2025 12:05 PM EDT) Culture, Wound Methicillin-Resista nt Staphylococcus aureus(A) ARIANA 06/05/2025 10:52 AM EDT [facility] Comment: The organism value for this result has been updated. These results have been appended to the previously preliminary verified report. Edited result: Previously reported as Staphylococcus aureus on 06/04/2025 at 1244 EDT. Culture, Wound Morganella morganii ssp morganii(A) ARIANA 06/05/2025 10:52 AM EDT [facility] Comment: The organism value for this result has been updated. These results have been appended to the previously preliminary verified report. This is an edited result. Previous organism was Gram negative bacilli on 06/04/2025 at 1244 EDT. Culture, Wound Streptococcus beta-hemolytic Group G(A) ARIANA 06/05/2025 10:52 AM EDT [facility] Comment: Susceptibility testing is not routinely [...] No organisms noted 06/05/2025 10:52 AM EDT [facility] Swab Structure of right foot / [...] LAB MICROBIOLOGY - GENERAL ORDERABLES Final Result [facility] ([facility]) [facility] [address] [place] [address], * Debridement Diabetic Ulcer Right Toe D1, [...] Signed Date: 05/31/2025 03:29 ET Workstation ID: [id number] Transcribed By: Self Edit Transcribed Date: 05/31/2025 [...] enhancementafter intravenous contrast administration. Nonspecific area of [id number], T2 fat sat hyperintense signal along the [...] Signed Date: 05/31/2025 03:29 ET Workstation ID: [id number] Transcribed By: Self Edit Transcribed Date: 05/31/2025 03:21 ET [facility] MRI PROCEDURES Final Re sult * XR Foot 3+ Views Right (05/19/2025 1:27 PM EDT) Anatomical Region Laterality Modality Lower Extremities, Foot Right [facility] 05/20/2025 7:57 AM EDT Impressions 05/20/2025 7:59 AM EDT No fracture or dislocation. Thinning of the cortex of the medial aspect of the first distal phalanx which could represent early osteomyelitis. More definitive evaluation with radionuclide bone scan should be considered if clinically warranted. Code 72321 -------- FINAL REPORT -------- Dictated By: Eddie Jose Dictated Date: 05/20/2025 07:57 ET Assigned Physician: Eddie Jose Reviewed and Electronically Signed By: Eddie Jose Signed Date: 05/20/2025 07:59 ET Workstation ID: [id number] Transcribed By: Self Edit Transcribed Date: 05/20/2025 [...] scan should be considered ifclinically warranted. Code 34441 -------- FINAL REPORT -------- Dictated By: Eddie Jose Dictated Date: 05/20/2025 07:57 ET Assigned Physician: Eddie Jose Reviewed and Electronically Signed By: Eddie Jose Signed Date: 05/20/2025 07:59 ET Workstation ID: [id number] Transcribed By: Self Edit Transcribed Date: 05/20/2025 07:57 ET us [facility] XR PROCEDURES Final Res ult * Debridement Diabetic Ulcer Right Toe D1, Great (05/19/2025 12:30 PM EDT) Sly Gaming PA - 05/19/2025 12:30 PM EDT LAVON Moe 05/19/2025 1:42 PM Debridement Diabetic Ulcer Right Toe D1, Great Performed by: LAVNO Moe Authorized by: LAVON Moe Associated wounds: [...] Documents on File Type Date Recorded Patient Helper Animal Laboratory Expl anation Health Care Decision (hx) 02/03/2021 [...] (hx) 01/17/2021 AD WATKINS DIRECTIVE Care Teams Accountant Controller Relationship Specialty Start Date End Date Pollo Thurston MD [address] [place] [phone] PCP - General Internal Medicine 06/02/25
--- OUTSIDE RECORDS SUMMARY | 2025-06-30 12:47 | XMS_ITS | Clinical Summary ---
Author Organization [employer] Address [address] [facility] [address] [place] [address] Care Team Providers Care Electromechanical Engineer Name Role Phone Unavailable Primary Care Provider Unavailabl e Allergies Active Allergy Reactions Criticality Noted Date Comments Black [place] Flavoring Agent (Non-Screening) 04/05/2025 Medications gabapentin (Neurontin) [...] Dyspnea on exertion 09/27/2021 Cerebrovascular accident (CVA) ([facility]) 021 Overview (04/23/2025): Last Assessment & Plan: [...] kidney disease) stage 3, GFR 30-59 ml/min ([facility]) 04/08/2019 Microalbuminuria 04/08/2019 Chronic back pain 11/03/2018 Coronary artery disease invo lving [place] coronary artery of [place] heart without angina pectoris 10/01/2017 Overview (04/23/2025): Last Assessment & Plan: No ischemic or heart failure symptoms. 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 ([facility]) 10/31/2016 Background diabetic retinopathy 10/20/2015 Depressive disorder [...] Description 05/12/2025 9:00 AM EDT Office Visit [facility] [address] [place] [address] Anoop David DDS History of tooth extraction, unspecified edentulism class (Primary Dx) 05/11/2025 Orders Only [facility] [address] [place] [address] Eliecer Romero DMD 04/23/2025 2:00 PM EDT Office Visit [facility] [address] [place] [address] Eliecer Romero DMD Necrosis of dental pulp (Primary Dx) 04/05/2025 2:30 PM EDT Office Visit [facility] [address] [place] [address] Eliecer Romero DMD Non-restorable tooth (Primary Dx); [...] Description 07/26/2025 12:45 PM EST Office Visit [facility] [address] [place] [address] Lewis Maldonado Health Maintenance Due Date Last [...] Most Recently Relevant to Health Maintenance Insurance [facility] MEDICA[facility] STAND ADULT
--- OUTSIDE RECORDS SUMMARY | 2025-06-30 12:47 | XMS_ITS | Patient Health Record ---
Author Organization [facility] Address [address] [facility] [place] [address] Care Team Providers Care Club Car Attendant Name Role Phone Pollo Thurston Primary Care Provider Andrzej Ramirez Unavailable [phone] Allergies No Known Allergies Results Component Value [...] Problem Acquired hammer toe of right foot (5747151101263661 ) Other hammer toe(s) (acquired), right foot (M20.41) Active confirmed Response to treatment, Improvemen t Problem Acquired hammer toe of left foot (5323359136444067 ) Other hammer toe(s) (acquired), left foot (M20.42) Active confirmed Response to treatment, Improvemen t Problem Polyneuropathy due to diabetes mellitus type I (799839726) Type 1 diabetes mellitus with diabetic polyneuropathy (E10.42) Active confirmed Problem Skin ulcer of toe of right foot with fat layer exposed (L97.512) Active confirmed Vital Signs Blood pressure diastolic 67 mm Hg 05/18/2025 Height 5ft8in in 05/18/2025 Blood pressure systolic 129 mm Hg 05/18/2025 Weight 240 lbs 05/18/2025 BMI 36.49 kg/m2 05/18/2025 Procedures Procedure Date Ordered Date Performed Result Body Sit e 28218-VUOIHLE NAIL, 1-5 07/28/2024 N/A 63980-HJOX SKIN LESIONS, OVER 4 07/28/2024 N/A X7984-VRQWDOQF DYSTROPHIC NAILS ANY # 07/28/2024 N/A 73672-CZUBFEL NAIL, 1-5 11/03/2024 N/A 25117-TMUM SKIN LESIONS, OVER 4 11/03/2024 N/A N9861-SJWOTBUV DYSTROPHIC NAILS ANY # 11/03/2024 N/A 32391-XQGTUJO NAIL, 1-5 02/09/2025 N/A 86190-RKVU SKIN LESIONS, OVER 4 02/09/2025 N/A T6353-IJUYMKGL DYSTROPHIC NAILS ANY # 02/09/2025 N/A 04806-NUPGVXR NAIL, 1-5 05/18/2025 N/A 86700-GZLJ SKIN LESIONS, OVER 4 05/18/2025 N/A E9079-VGPAGMBT DYSTROPHIC NAILS ANY # 05/18/2025 N/A Encounters Encounter Location Date Provider Diagnosis [address] [address] 07/28/2024 Andrzejjuan miguel Rodier Type 1 diabetes mellitus with diabetic polyneuropathy E10.42 ; Tinea unguium B35.1 ; Other hammer toe(s) (acquired), right foot M20.41 and Other hammer toe(s) (acquired), left foot M20.[address] [address] 11/03/2024 Andrzej Raman Type 1 diabetes mellitus with diabetic polyneuropathy E10.42 ; Tinea unguium B35.1 ; Other hammer toe(s) (acquired), right foot M20.41 and Other hammer toe(s) (acquired), left foot M20.[address] [address] 02/09/2025 Andrzej Raman Type 1 diabetes mellitus with diabetic polyneuropathy E10.42 ; Tinea unguium B35.1 and Xerosis of skin L85.[address] [address] 05/18/2025 Andrzej Raman Type 1 diabetes mellitus [...] 02/09/2025 Xerosis of skin (ICD-10 - L85.3) 05/18/2025 Skin ulcer of toe of right foot with fat layer exposed (ICD-10 - L97.512) Plan Of Treatment Pending Test Test Name Order Date X ray : Foot, left 3V 12/05/2022 47003-FPCJCZI NAIL, 1-5 11/03/2024 39420-IZSYGTN NAIL, 1-5 02/09/2025 35094-FISZBLZ NAIL, 1-5 07/28/2024 90958-DFWSZBD NAIL, 1-5 05/18/2025 55400-IXAUXBO SKIN/TISSUE 12/05/2022 91316-AXVPSDS SKIN/TISSUE 01/09/2023 99128-HCBA SKIN LESIONS, OVER 4 02/08/20 23 29128-OIYX SKIN LESIONS, OVER 4 12/06/19 23 48036-ACOC SKIN LESIONS, OVER 4 07/28/20 24 56408-WDAJ SKIN LESIONS, OVER 4 05/18/20 30501-VXTN SKIN LESIONS, OVER 4 11/03/19 83047-BODI SKIN LESIONS, OVER 4 02/10/20 D3698-BWEXBYLJ DYSTROPHIC NAILS ANY # C6118-LHLTOEAH DYSTROPHIC NAILS ANY # Y2470-EDWBHKSI DYSTROPHIC NAILS ANY # A0626-URUXYZWI DYSTROPHIC NAILS ANY # A8948-BLQMOHSS DYSTROPHIC NAILS ANY # O0223-HUPNUUXC DYSTROPHIC NAILS ANY # Next Appt Details Provider Name:Andrzej Camargo , 2025 10:00:00 AM, [address] [place], [address], Insurance Providers Payer Name Payer Address Payer Phone Subscriber Number Group Number Insured Name Patient Relationship to Insured Coverage Start Date Coverage End Date [employer] PPO [address] [phone] [id number] Kirby Christianson Self - patient is the insured Medical (General) History Medical History History ICD Code Back,Hip,and Knee pain Diabetic type ll Poor circulation Stroke Surgical History Surgery Date(Month/Year) back surgery- Spine L5 03/06 cataract surgery [place] [facility] [place] teeth extraction 05/10 Hospitalization History Reason Date(Month/Year)
--- OUTSIDE RECORDS SUMMARY | 2025-06-30 12:47 | XMS_ITS ---
Care Plan Created on: June 30, 2025 Kirby Christianson : 1950 Sex: Male Author Organization [facility] Address [address] [place] [address] Phone Care Team Providers Care Analytical Data Scientist Name Role Phone Pollo Thurston MD Primary Care Provider [phone]- [phone] Active Problems Problem Noted Date Diagnosed Date Osteomyelitis of right foot ([facility] V24, [facility] V28) 06/02/2025 Type 2 diabetes mellitus wit h foot ulcer (CODE) ([facility] V24, [facility] V28) 03/03/2025 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 right foot with fat layer exposed ([facility] V24, [facility] V28) 03/03/2025 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 right lower leg with fat layer exposed ([facility] V24, [facility] V28) 08/04/2024 Diabetes mellitus due to und erlying condition with diabetic autonomic neuropathy ([facility] V24, [facility] V28) 08/04/2024 Corns and callosities 08/04/2024 Chronic venous hypertension (idiopathic) with ulcer and inflammation of right lower extremity ([facility] V24, [facility] V28) 08/04/2024 History of colon polyps 11/19/2023 Overview (11/19/2023): 10/20/2015 Dyspnea on exertion 09/27/2021 Cerebrovascular accident (CVA) ([facility] V24, [facility] V28) 04/13/2021 Overview (11/19/2023): Last Assessment [...] Doxazosin was decreased as well Pulmonary embolism ([facility] V24[facility] V28) Osteomyelitis of toe of righ t foot ([facility] V24, [facility] V28) 06/04/2019 CKD (chronic kidney disease) stage 3, GFR 30-59 ml/min ([facility] V24, [facility] V28) 04/08/2019 Microalbuminuria 04/08/2019 Chronic back pain 11/03/2018 Coronary artery disease invo lving [place] coronary artery of [place] heart without angina pectoris 10/01/2017 Overview (11/19/2023): Last Assessment & Plan: No ischemic or heart failure symptoms. 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 ([facility] V24, [facility] V28) 10/31/2016 Osteoarthritis of spine with radiculopathy, lumb ar region 10/31/2016 Obstructive sleep apnea 01/24/2016 Overview (11/19/2023): [facility] Polysomnogram: Date 12/10/2017; SE 77%; SM 87%; [...] by 2018 diagnostic polysomnogram. Background diabetic retinopathy ([facility] V24, [facility] V28) 10/20/2015 Depressive disorder 10/20/2015 Diabetic neuropathy ([facility] V24, [facility] V28) 0 10/20/2015 DM (diabetes mellitus), type 2 with ophthalmic complications ([facility] V24, [facility] V28) 10/20/2015 Type 2 diabetes mellitus wit h neurological manifestations ([facility] V24, [facility] V28) 10/20/2015 Diverticulosis 10/20/2015 Overview (11/19/2023): CN [...] goal LDL is less than 70. Old DE (myocardial infarction) 10/07/2015 Overview (11/19/2023): stentsx2, one in 2003 and RCA stent 04/25 Type 2 diabetes mellitus wit h renal manifestations ([facility] V24, [facility] V28) 10/07/2015 Additional Health Concerns Active [...]
--- OUTSIDE RECORDS SUMMARY | 2025-06-30 12:47 | XMS_ITS | Encounter Summary ---
Author Organization [employer] Address [address] [facility] [address] [place] [address] Care Team Providers Care Contracting Support Specialist Name Role Phone Unavailable Primary Care Provider Unavailabl e Encounter Details Date Type Department Care Team (Latest Contact Info) Description 08/10/2019 Abstract [facility] CONVERSIONS Dental, Provider, DDS Social History [...] Description 07/26/2025 12:45 PM EST Office Visit [facility] [address] [place] [address] Lewis Maldonado documented as of this encounter Visit Diagnoses Not on filedocumented in this encounter
[2025-06-30 13:05] LABS: MANUAL DIFF FLAG NO
[2025-06-30 13:15] LABS: Hematocrit 39.7 % (42.0-52.0); Hemoglobin 12.8 g/dl (14.0-18.0); Imm Gran Abs Auto 0.03 X10*3/uL (0.00-0.03); Imm Gran Pct Auto 0.4 % (0.0-0.4); Lymphocytes Absolute Auto 1.6 X10*3/uL (1.2-4.9); Mean Corpuscular HGB Conc 32.2 g/dl (31.0-36.0); Mean Corpuscular Hemoglobin 29.3 pg (27.0-33.0); Mean Corpuscular Volume 90.8 fL (80.0-98.0); NRBC Abs Auto 0.000 X10*3/uL (0.0-0.012); NRBC Pct Auto 0.0 /100WBC (0.0-0.2); Platelet Count 190 X10*3/uL (160-400); Red Blood Count 4.37 X10*6/uL (4.60-5.80); White Blood Count 7.2 X10*3/uL (4.8-10.8)
[2025-06-30 13:56] LABS: Alanine Aminotransferase 25 U/L (0-40); Albumin Level 4.2 g/dL (3.5-5.0); Alkaline Phosphatase 63 U/L (39-117); Anion Gap 8 (12-20); Aspartate Amino Transferase 29 U/L (5-37); Blood Urea Nitrogen 17 mg/dL (9-16); Calcium 9.0 mg/dL (8.4-10.2); Carbon Dioxide 28 mmol/L (22-29); Chloride 108 mmol/L (96-108); Cholesterol 116 mg/dL (<200); Estimated Glomerular Filt Rate 57; HDL Cholesterol 38 mg/dL (>40); Magnesium 1.9 mg/dL (1.6-2.6); Potassium 4.2 mmol/L (3.3-5.1); Sodium 140 mmol/L (135-145); Total Protein 6.9 g/dL (6.5-8.0); Triglycerides 91 mg/dL (<150)
[2025-06-30 14:23] LABS: Prostate Specific Antigen 1.40 ng/mL (<0.05-4.0)
[2025-06-30 14:44] LABS: Folate 6.7 ng/mL (> or = 4.0); Vitamin B12 > 2000 pg/mL (200-900)
[2025-06-30 16:15] LABS: Appearance Urine Clear; Glucose Urine UA Negative (Negative); PH 6.0 (5.0-9.0); Specific Gravity - Urine 1.020 (1.005-1.025); UMIC TRIGGER UACC YES
== END 2025-06-30 10:42 | disposition home or self-care (01) ==
LOC: HO.HMGCLDS 10:41
PROVIDERS: Nurse Practitioner Family; PCP Physician Assistant Medical; Visit Provider Physician Assistant Medical
DX: Z00.00 Encounter for general adult medical examination without abnormal findings (principal); Z12.5 Encounter for screening for malignant neoplasm of prostate; Z13.6 Encounter for screening for cardiovascular disorders; R97.20 Elevated prostate specific antigen [PSA]
CPT/HCPCS: 36415; 80053; 80061; 80076; 81001; 81003; 82248; 82306; 82607; 82746; 83735; 84153; 85025; 86140

== ENCOUNTER 2025-07-01 10:59 | Outpatient (AMB) | payer MEDICARE, SELFPAY ==
--- OUTSIDE RECORDS SUMMARY | 2024-04-27 09:45 | XMS_ITS ---
Author Organization [facility] Address [address] [place] [address] Care Team Providers Care Electrical Line Splicer Name Role Phone Pollo Thurston Primary Care Provider Andrzej Ramirez Unavailable [phone] Ced Menchaca Unavailable [phone] REASON FOR VISIT Painful thick toenails which are aggrevated by shoes and causes difficulty standing/walking Medications Medication SIG (Take, Route, Frequency, Duration) Notes Start Date End Date Status Extra Depth Diabetic Shoes with 3 Pair Custom heat-molded multi-density innersoles for 1 year Dx: Active Encounters Encounter Location Date Provider Diagnosis [facility] [address] [place] [address] 04/27/2024 Ced Menchaca Type 1 diabetes mellitus [...] Provider Name:Andrzej Camargo , 2025 10:00:00 AM, [address] [place] [address], [phone], Procedure Notes * Category Sub-Category Detail Notes Keratoma Treatment Parring or Cutting o f Benign Hyperkeratotic Lesion(s) 49789 ( >4 Lesions) - The Benign hyperkeratotic [...] as necessary. Patient chooses, no pharmaceutical tx (07199) Nail Reduction Nail Reduction Trimming of dyst rophic nails performed to reduce/remove overall nail length and girth, by manual and electrical means with use of a nail nipper and/or dremel, to more viable healthy nail plate or bed tissue 6-10 (G0127) Progress Notes * Kirby CHRISTIANSONDOB:1950 ( 74 yo M)Acc No.[id number]:04/27/2024 Progress Note Patient: Kirby ALVARENGA Provider: Lamont Hernandez DPM :1950 A ge:73 Y S ex:Male Date:04/27/2024 Address: [address], [address] [facility] Pcp:Pollo Thurston Subjective: * Chief Complaints: * [...] enies. C ardiovascular: Pacemaker d enies. M CANVAS SHOP LABORER d enies. W PW d enies. C [...] as necessary. Patient chooses, no pharmaceutical tx (08421). K eratoma Treatment: Parring or Cutting of [...] SKIN LESIONS, OVER 4, Modifiers: XS , 07493 DEBRIDE NAIL, 1-5, Modifiers: XS , G0127 TRIMMING DYSTROPHIC NAILS ANY #, Modifiers: XS * Follow Up: 3 Months * Images: * The named appointment provid er may or may not be the originator of this progress note, and it is not deemed complete until electronically signed by the appointment provider. Sign off status: Pending * Provider: Lamont Hernandze DPM Date: 0 04/27/2024 Generated for Zachary wells/Concepcion/Jasmeet on: 01:56 PM EDT History and Physical Notes * HPI (History [...] footcare Pt States Last PCP Visit: Date: Examination Category Sub-Category Detail Notes Category Not [...]
--- OUTSIDE RECORDS SUMMARY | 2025-06-24 15:30 | XMS_ITS | Encounter Summary ---
Author Organization [facility] Address [address] [place] [address] Care Team Providers Care Skatesman Name Role Phone Pollo Thurston MD Primary Care Provider +1- [phone] Reason for Visit * Reason Comments Wound Care Encounter Details Date Type Department Care Team (Late st Contact Info) Description 06/24/2025 3:30 PM EDT Office Visit [facility] [address] [place] [phone] Sergio Rodriguez MD [address] [place] [address] Type 2 diabetes mellitus with foot ulcer (CODE) ([facility] V24, [facility] V28) (Primary Dx); Non-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 layer exposed ([facility] V24, [facility] V28) Social History Tobacco Use Types Packs/Day [...] any questions or concerns, please contact the [facility] at . Follow up(s)/ Referrals: Infectious Disease: [facility] Infectious Disease- pending appt [facility] [address] [place] [address] -Arterial ultrasound- Appoint 08/23/25 at 1:30P at [facility] [address], [address] Snf: N/A Additional Orders: Increase protein in your [...] please remove / unwrap compression and notify [facility] at . ) [...] of right foot with fat layer exposed ([facility] V24, [facility] V28); Type 2 diabetes mellitus with foot ulcer (CODE) ([facility] V24, [facility] V28) Images from the original note were not included. [facility] [place] [address] Office Visit Visit Date: 06/24/2025 Patient Name: [...] right lower extremity which was treated by [facility] tacitly since been discharged from that [...] doxycycline and levofloxacin based on recommendations from [facility] infectious disease. He has been taking [...] should be considered if clinically warranted. Code 27544 -------- FINAL REPORT -------- Dictated By: Eddie [...] refer to ID and back to his co founder and chief strategy officer. Patient has appt 06/02/25 Assessment and Plan: Type 2 diabetes mellitus with foot ulcer (CODE) ([facility] V24, [facility] V28) (Primary) Non-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 layer exposed ([facility] V24, [facility]) Other orders - Debridement Diabetic foot wound [...] Moderate Treatments Cleansed Cleansed;Other (Comment) Dressing Foam Alginate;[place] Offloading;Gauze Dressing Status Removed Removed Wound Bed [...] any questions or concerns, please contact the [facility] [place] at . Follow up(s)/ Referrals: Infectious Disease: [facility] Infectious Disease- pending appt [facility] [address] [place] [address] -Arterial ultrasound- Appoint 08/23/25 at 1:30P at [facility] [address], [address] Snf: N/A Additional Orders: Increase protein in your [...] please remove / unwrap compression and notify [facility] [place] at . ) N/A Offloading: Orthofelt, Wear [...] Patient directed to check out at front end specialist and collect visit summary with wound care [...] Description 07/01/2025 3:15 PM EDT Clinical Support [facility] [address] [place] [address] 08/23/2025 1:30 PM EST Ancillary Procedure [facility] - [address] [address] documented as of this encounter Goals Goal [...] 2 diabetes mellitus with foot ulcer (CODE) ([facility] V24, [facility] V28) Non-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 layer exposed ([facility] V24, [facility] V28) documented in this encounter Results * [...] 2 diabetes mellitus with foot ulcer (CODE) ([facility] V24, [facility] V28)- Primary Non-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 layer exposed ([facility] V24, [facility] V28) documented in this encounter Additional Health [...] documented as of this encounter Care Teams Skatesman Relationship Specialty Start Date End Date Pollo Thurston MD [address] [place] [address] PCP - General Internal Medicine 06/02/25 documented as of this encounter
--- NOTE | 2025-07-01 10:59 | MHC.OFFVIS ---
Intake Visit Reasons: 6M/ PSA Intake Note: Patient is present for 6M/PSA Urology Medication:FINASTERIDE,VITAMIN B12 Antibiotic Allergy:NONE Blood Thinner:ASPIRIN,APIXBAN [employer] Trader Required: No Allergies almond (ALMONDS) Allergy (Severe, Verified 07/01/25 11:01) THROAT CLOSES pecan nut (PECAN) Allergy (Severe, Verified 07/01/25 11:01) THROAT CLOSES HPI Comments Details: Kirby is a very pleasant 74 year old male patient of Dr. Callaway. He has a past medical history of BPH, CVA, DVT, enlarged prostate with LUTS, ED, frequency urgency syndrome, history of elevated PSA, and osteomyelitis. He is being followed up on today via telehealth for his lower urinary tract symptoms, ED associated with diabetes, and elevated PSA. In discussion with the patient today he reports to be doing and feeling well. He denies having had any bothersome urinary issues or concerns since his last office visit here. When asked he reports compliance with finasteride as prescribed. He currently denies any bothersome urinary issues or concerns. He reports to be happy with current voiding parameters. He denies urinary urgency, urinary frequency, incontinence, hematuria, dysuria, foul smelling urine, changes to urinary stream, flank pain, fever, and or chills. He reports noting himself to have morning erections 5mg of Cialis daily however does not feel they are adequate for penetrations. Discussed at length patients comorbidities in relation to erectile dysfunction. Discussed lifestyle modifications to assist with ED. He otherwise offers no issues or concerns at this time. PSAs are as follows: 03/09 2.5, 09/08 1.0, 07/10 1.4 PREVIOUS OFFICE NOTE Lower urinary tract symptoms with elevated PSA Followed for BPH symptoms Prior medication includes doxazosin which he ceased secondary to blood pressure issues - had been on Myrbetriq but had recurrent stroke with high residual - prior laser prostatectomy Baseline suffered stroke in February 2020 PSA - May 2019 3.0 - May 2020 4.7, 10/06 2.9 -August 2023--1.2 -February 2024 2.5 Office cystoscopy - 09/06 right lateral prostatic regrowth Prostatic regrowth source of microscopic hematuria Good response to combination finasteride and tadalafil with urinary control Therapeutic plan - continue with medication and PSA surveillance Erectile dysfunction diabetic Good response to daily tadalafil PFSH Medical History Chronic back pain Chronic pain syndrome Stroke due to occlusion of left anterior cerebral artery History of CVA in adulthood Hyperlipidemia GERD (gastroesophageal reflux disease) Hypertension Vitamin B12 deficiency Vitamin D deficiency CKD (chronic kidney disease) History of transient ischemic attack and cerebral infarction Insulin dependent type 2 diabetes mellitus Pulmonary embolism Coronary artery disease Atherosclerotic cardiovascular disease CVA (cerebral vascular accident) DVT (deep venous thrombosis) BPH (benign prostatic hyperplasia) Frequency-urgency syndrome Subacute osteomyelitis of right foot Enlarged prostate without lower urinary tract symptoms (luts) History of elevated PSA Surgical History History of surgery Family History Mother Heart attack Father Diabetes Stroke Social History Household Members: Family Housing: House Are you a primary laboratory animal caretaker to a significant other at home: No Do you presently have visiting nurse or other home services: No Alcohol intake: current Alcohol intake frequency: does not drink Patient Tobacco Use Status: Never used Tobacco Second Hand Smoke Exposure: No service: Yes Current occupational status: retired and disabled Cognitive needs: Yes (walker) Hearing needs: No Vision needs: Yes (rx glasses) Review of Systems Const Reports as per HPI Eyes Reports no additional complaints ENT Reports no additional complaints Card Reports as per HPI Resp Reports no additional complaints GI Reports no additional complaints Reports as per HPI Musc Reports as per HPI Neuro Reports as per HPI Psych Reports as per HPI Endo Reports as per HPI Physical Exam Const General: cooperative Orientation/consciousness: patient oriented x3 Resp Effort & Inspection: able to speak in complete sentences Neuro General: patient oriented x3 Psych Thought content: Normal thought content present Insight: Fair insight present (Psych) Judgement: Fair judgement present (Psych) Telehealth Telehealth Telehealth Platform: Telephone Location of provider rendering services: practice address Location of patient: address on file Patient Identification confirmed using: Name, : Yes Telehealth method: voice only Patient verbally consented to treatment: Yes Patient verbally consented to billing insurance company: Yes Patient informed of any privacy concerns related to visit: Yes Minutes spent on Phone/Video with Pt.: 15 Assessment & Plan Assessment & Plan (1) BPH w urinary obs/LUTS: Code(s): N40.1 - Benign prostatic hyperplasia with lower urinary tract symptoms; N13.8 - Other obstructive and reflux uropathy Category: Medical (2) Elevated PSA: Code(s): R97.20 - Elevated prostate specific antigen [PSA] Category: Medical (3) BPH (benign prostatic hyperplasia): Code(s): N40.0 - Benign prostatic hyperplasia without lower urinary tract symptoms Category: Medical (4) Erectile dysfunction associated with type 2 diabetes mellitus: Code(s): E11.69 - Type 2 diabetes mellitus with other specified complication; N52.1 - Erectile dysfunction due to diseases classified elsewhere Category: Medical Plan Recent PSA results reviewed with the patient today; as noted above. He currently denies any bothersome urinary issues or concerns. He reports be happy with current voiding parameters. All questions were answered. Continue finasteride as discussed and prescribed Will continue with surveillance monitoring. Follow-up in 6 months with [facility]; or sooner with any issues, concerns, and or questions. Medications: Changed From finasteride 5 mg PO DAILY To finasteride 5 mg PO DAILY 90 tabs 3RF 90 days Patient Instructions: The patient had an opportunity to ask questions regarding the treatment plan. All questions were answered. Physical exam, labs, and imaging were discussed and reviewed in detail. As well as risks, benefits, and discussion of treatment choices. No major barriers to understanding were identified. The patient expressed understanding and agreement with the above treatment plan. The patient was made aware they should contact our office by phone for worsening of their current condition, the appearance of new symptoms, or with any questions or concerns. Compliance is encouraged with any medications and follow up testing that is ordered. It is a privilege to be allowed the opportunity to participate in? your urological care.? Again, if you have any questions or concerns If you have any questions or concerns please do not hesitate to contact me. The office is [phone]. This note is constructed using voice recognition software. While every effort has been made to ensure accuracy doweling machine operator errors may have been included. Yours sincerely, Kyleigh Robert, PASSPORT SUPPORT ASSOCIATE-BC Coding Level of Care Code Tele Est Pt Level 3 (92834) Diagnoses BPH w urinary obs/LUTS N40.1; N13.8 Elevated PSA R97.20 BPH (benign prostatic hyperplasia) N40.0 Erectile dysfunction associated with type 2 diabetes mellitus E11.69; N52.1
--- OUTSIDE RECORDS SUMMARY | 2025-07-01 13:56 | XMS_ITS ---
Care Plan Created on: July 01, 2025 Kirby Christianson : 1950 Sex: Male Author Organization [facility] Address [address] [place] [address] Phone Care Team Providers Care Football Scout Name Role Phone Pollo Thurston MD Primary Care Provider [phone]- [phone] Active Problems Problem Noted Date Diagnosed Date Osteomyelitis of right foot ([facility] V24, [facility] V28) 06/02/2025 Type 2 diabetes mellitus wit h foot ulcer (CODE) ([facility] V24, [facility] V28) 03/03/2025 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 right foot with fat layer exposed ([facility] V24, [facility] V28) 03/03/2025 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 right lower leg with fat layer exposed ([facility] V24, [facility] V28) 08/04/2024 Diabetes mellitus due to und erlying condition with diabetic autonomic neuropathy ([facility] V24, [facility] V28) 08/04/2024 Corns and callosities 08/04/2024 Chronic venous hypertension (idiopathic) with ulcer and inflammation of right lower extremity ([facility] V24, [facility] V28) 08/04/2024 History of colon polyps 11/19/2023 Overview (11/19/2023): 10/20/2015 Dyspnea on exertion 09/27/2021 Cerebrovascular accident (CVA) ([facility] V24, [facility] V28) 04/13/2021 Overview (11/19/2023): Last Assessment [...] Doxazosin was decreased as well Pulmonary embolism ([facility] V24, [facility] V28) Osteomyelitis of toe of righ t foot ([facility] V24, [facility] V28) 06/04/2019 CKD (chronic kidney disease) stage 3, GFR 30-59 ml/min ([facility] V24, [facility] V28) 04/08/2019 Microalbuminuria 04/08/2019 Chronic back pain 11/03/2018 Coronary artery disease invo lving [place] coronary artery of [place] heart without angina pectoris 10/01/2017 Overview (11/19/2023): Last Assessment & Plan: No ischemic or heart failure symptoms. 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 ([facility] V24, [facility] V28) 10/31/2016 Osteoarthritis of spine with [...] by 2018 diagnostic polysomnogram. Background diabetic retinopathy ([facility] V24, [facility] V28) 10/20/2015 Depressive disorder 10/20/2015 Diabetic neuropathy ([facility] V24, [facility] V28) 0 10/20/2015 DM (diabetes mellitus), type 2 with ophthalmic complications ([facility] V24, [facility] V28) 10/20/2015 Type 2 diabetes mellitus wit h neurological manifestations ([facility] V24, [facility] V28) 10/20/2015 Diverticulosis 10/20/2015 Overview (11/19/2023): [...] goal LDL is less than 70. Old [place] (myocardial infarction) 10/07/2015 Overview (11/19/2023): stentsx2, one in 2003 and RCA stent 04/25 Type 2 diabetes mellitus wit h renal manifestations ([facility] V24, [facility] V28) 10/07/2015 Additional Health Concerns Active [...]
--- OUTSIDE RECORDS SUMMARY | 2025-07-01 13:56 | XMS_ITS | Encounter Summary ---
Author Organization [employer] Address [address] [place] [address] Care Team Providers Care Company Controller Name Role Phone Unavailable Primary Care Provider Unavailabl e Encounter Details Date Type Department Care Team (Latest Contact Info) Description 08/10/2019 Abstract [facility] CONVERSIONS Dental, Provider, DDS Social History Tobacco [...] Description 07/26/2025 12:45 PM EST Office Visit [facility] [address] [place] [address] Lewis Maldonado documented as of this encounter Visit Diagnoses Not on filedocumented in this encounter
--- OUTSIDE RECORDS SUMMARY | 2025-07-01 13:56 | XMS_ITS | Clinical Summary ---
Author Organization [facility] Address [address] [place] [address] Phone Care Team Providers Care [employer] Name Role Phone Pollo Thurston MD Primary Care Provider [phone] Allergies Active Allergy Reactions Criticality Noted Date [...] 2 diabetes mellitus with foot ulcer (CODE) ([facility] V24, [facility] V28),Non-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 layer exposed ([facility] V24, [facility] V28),Diabetic polyneuropathy associated with type 2 diabetes mellitus ([facility] V24, [facility] V28),Other chronic osteomyelitis of right foot ([facility] V24, [facility] V28) Take 1 capsule (100 [...] Date Diagnosed Date Osteomyelitis of right foot ([facility] V24, [facility] V28) 06/02/2025 Type 2 diabetes mellitus wit h foot ulcer (CODE) ([facility] V24, [facility] V28) 03/03/2025 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 right foot with fat layer exposed ([facility] V24, [facility] V28) 03/03/2025 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 right lower leg with fat layer exposed ([facility] V24, [facility] V28) 08/04/2024 Diabetes mellitus due to und erlying condition with diabetic autonomic neuropathy ([facility] V24, [facility] V28) 08/04/2024 Corns and callosities 08/04/2024 Chronic venous hypertension (idiopathic) with ulcer and inflammation of right lower extremity ([facility] V24, [facility] V28) 08/04/2024 History of colon polyps 11/19/2023 Overview (11/19/2023): 10/20/2015 Dyspnea on exertion 09/27/2021 Cerebrovascular accident (CVA) ([facility] V24, [facility] V28) 04/13/2021 Overview (11/19/2023): Last [...] Doxazosin was decreased as well Pulmonary embolism ([facility] V24[facility] V28) Osteomyelitis of toe of righ t foot ([facility] V24, [facility] V28) 06/04/2019 CKD (chronic kidney disease) stage 3, GFR 30-59 ml/min ([facility] V24, [facility] V28) 04/08/2019 Microalbuminuria 04/08/2019 Chronic back pain 11/03/2018 Coronary artery disease invo lving [place] coronary artery of [place] heart without angina pectoris 10/01/2017 Overview (11/19/2023): Last Assessment & Plan: No ischemic or heart failure symptoms. 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 [place] [place] [facility] [place]) 10/31/2016 Osteoarthritis of spine with radiculopathy, lumb ar region 10/31/2016 Obstructive sleep apnea 01/24/2016 Overview (11/19/2023): [facility] Polysomnogram: Date 12/10/2017; SE 77%; SM 87%; [...] by 2018 diagnostic polysomnogram. Background diabetic retinopathy ([facility] [place], [facility] V28) 10/20/2015 Depressive disorder 10/20/2015 Diabetic neuropathy ([facility] [place], [facility] [place]) 0 10/20/2015 DM (diabetes mellitus), type 2 with ophthalmic complications ([facility] [place], [facility] [place]) 10/20/2015 Type 2 diabetes mellitus wit h neurological manifestations ([facility] [place], [facility] [place]) 10/20/2015 Diverticulosis 10/20/2015 Overview (11/19/2023): CN [...] goal LDL is less than 70. Old HI (myocardial infarction) 10/07/2015 Overview (11/19/2023): stentsx2, one in 2003 and RCA stent 04/25 Type 2 diabetes mellitus wit h renal manifestations ([facility] V24, [facility] V28) 10/07/2015 Encounters Date Type Department Care Team Description 06/24/2025 3:30 PM EDT Office Visit [facility] [address] [place] [phone] Sergio Rodriguez MD Type 2 diabetes mellitus with foot ulcer (CODE) ([facility]/HCC V24, CMS/HCC V28) (Primary Dx); Non-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 layer exposed ([facility] V24, CMS/HCC V28) 06/17/2025 3:15 PM EDT Office Visit [facility] [address] [place] [address] [phone] Sly Welch PA Type 2 diabetes mellitus with foot ulcer (CODE) ([facility] V24, [facility] V28) (Primary Dx); Non-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 layer exposed (CMS/HCC V24, CMS/HCC V28) 06/09/2025 2:45 PM EDT Office Visit [facility] [address] [place] [phone] Sly Welch PA Type 2 diabetes mellitus with foot ulcer (CODE) (CMS/HCC V24, CMS/HCC V28) (Primary Dx); Non-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 layer exposed (CMS/HCC V24, CMS/HCC V28); Diabetic polyneuropathy associated with type 2 diabetes mellitus (CMS/HCC V24, CMS/HCC V28); Other chronic osteomyelitis of right foot (CMS/HCC V24, CMS/HCC V28) 06/07/2025 Telephone [facility] [address] [place] [phone] Keena Zamora RN 06/02/2025 11:30 AM EDT Office Visit [facility] [address] [place] [address] [phone] Sly Welch PA Type 2 diabetes mellitus [...] - 05/29/2025 11:59 PM EDT Hospital Encounter [facility] MRI [address] [place] [phone] Type 2 diabetes mellitus with foot ulcer (CODE) ([facility]/HCC V24, CMS/HCC V28); Non-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 layer exposed (CMS/HCC V24, CMS/HCC V28); Diabetic polyneuropathy associated with type 2 diabetes mellitus (CMS/HCC V24, CMS/HCC V28) Discharge Disposition: Home or Self Care 05/20/2025 Telephone [facility] [address] [place] [phone] Mireille Yan RN 05/19/2025 1:18 PM EDT - 05/19/2025 11:59 PM EDT Hospital Encounter [facility] Xray [address] [place] [phone] Type 2 diabetes mellitus with foot ulcer (CODE) ([facility]/HCC V24, CMS/HCC V28); Non-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 layer exposed (CMS/HCC V24, CMS/HCC V28); Diabetic polyneuropathy associated with type 2 diabetes mellitus (CMS/HCC V24, CMS/HCC V28) Discharge Disposition: Home or Self Care 05/19/2025 12:30 PM EDT Office Visit [facility] [address] [place] [phone] Sly Welch PA Type 2 diabetes mellitus with foot ulcer (CODE) ([facility]/HCC V24, CMS/HCC V28) (Primary Dx); Non-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 layer exposed (CMS/HCC V24, CMS/HCC V28); Diabetic polyneuropathy associated with type 2 diabetes mellitus (CMS/HCC V24, CMS/HCC V28) 05/05/2025 12:30 PM EDT Office Visit [facility] [address] [place] [phone] Sly Welch PA Type 2 diabetes mellitus with foot ulcer (CODE) (CMS/HCC V24, CMS/HCC V28) (Primary Dx); Non-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 layer exposed (CMS/HCC V24, CMS/HCC V28); Diabetic polyneuropathy associated with type 2 diabetes mellitus (CMS/HCC V24, CMS/HCC V28) 04/21/2025 12:45 PM EDT Office Visit [facility] [address] [place] [phone] Sly Welch PA Type 2 diabetes mellitus with foot ulcer (CODE) (CMS/HCC V24, CMS/HCC V28) (Primary Dx); Non-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 layer exposed (CMS/HCC V24, CMS/HCC V28); Diabetic polyneuropathy associated with type 2 diabetes mellitus (CMS/HCC V24, [facility] V28) 03/31/2025 1:45 PM EDT Office Visit [facility] [address] [place] [phone] Sly Welch PA Type 2 diabetes mellitus with foot ulcer (CODE) ([facility] V24, [facility] V28) (Primary Dx); Non-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 layer exposed ([facility] V24, [facility] V28); Diabetic polyneuropathy associated with type 2 diabetes mellitus ([facility] V24, [facility] V28) from Last 3 Months [...] Date Comments Coronary artery disease invo lving [place] coronary artery with other forms of angina pectoris 10/07/2015 DX:Coronary artery disease involving [place] coronary artery with other forms of angina pectoris; COMMENT: stentsx2, no details, one in 2001, another 2004 BPH (benign prostatic hyperplasia) 10/07/2015 DX:BPH (benign prostatic hyperplasia) Hypercholesteremia 10/07/2015 DX:Hyperchole steremia Erectile dysfunction 10/17/2015 DX:Erectile dysfunction HTN (hypertension) 10/20/2015 DX:HTN (hyper tension) Onychomycosis 10/20/2015 DX:Onychomycosis Background diabetic retinopa thy ([facility] [place], [facility] [place]28) 10/20/2015 DX:Background diabetic reti nopathy (HCC) DM (diabetes mellitus), type 2 with ophthalmic complications ([facility] [place], [facility] V28) 10/20/2015 DX:DM (diabetes mellitus), t ype 2 with ophthalmic complications ([facility]) Old HI (myocardial infarction) 10/07/2015 D X:Old HI (myocardial infarction); COMMENT: stentsx2, no details, one in 2001, another 2004 Diverticulosis 10/20/2015 DX:Diverticulosi s; COMMENT: CN 2011 Depressive disorder 10/20/2015 DX:Depressiv e disorder GERD (gastroesophageal reflux disease) 10/20/2015 DX:GERD (gastroesophageal reflux disease) History of colon polyps 10/20/2015 DX:Histo ry of colon polyps; COMMENT: Type not specified in transfer notes Type 2 diabetes mellitus wit h vascular disease ([facility] [place], [facility] V28) 10/07/2015 DX:Type 2 diabetes mellitus with vascular disease ([facility]) Diabetic neuropathy ([facility] [place], [facility] V28) 10/20/2015 DX:Diabetic neuropathy ([facility]) Type 2 diabetes mellitus wit h neurological manifestations ([facility] [place], [facility] [place]) 10/20/2015 DX:Type 2 diabetes mellitus with neurological manifestations ([facility]) Type 2 diabetes mellitus wit h renal manifestations ([facility] [place], [facility] V28) 10/07/2015 DX:Type 2 diabetes mellitus with renal manifestations ([facility]) Microalbuminuria 04/08/2019 DX:Microalbumin uria CKD (chronic kidney disease) stage 3, GFR 30-59 ml/min ([facility] V24, [facility] V28) 04/08/2019 DX:CKD (chronic kidney disea se) stage 3, GFR 30-59 ml/min ([facility]) Family History Medical History Relation Name Comments Diabetes Father Heart attack Mother at age 63 Heart attack Sister 1 at age 63 with heart condition, ?not HI Diabetes Sister 2 Relation Name Status Comments [...] Description 07/01/2025 3:15 PM EDT Clinical Support [facility] [address] [place] [phone] 08/23/2025 1:30 PM EST Ancillary Procedure [facility] [address] [place] [phone] Health Maintenance Due Date Last Done Comments [...] Tissue No change(2024 4:05 PM EDT) Mireille aDn RN Patient and Caregiver Understand Wound Care [...] needed on impact of smoking on wound iMreille Dan RN Patient and Caregiver Understand Wound Care Education Care Plan Education needed related to ulceration/compr omised skin integrity. No Mireille Yan RN Procedures Procedure Name Priority Date/Time Associated Diagnosis Comments DEBRIDEMENT Routine 06/24/2025 3:30 PM EDT Type 2 diabetes mellitus with foot ulcer (CODE) ([facility] V24, CMS/[facility] V28) Non-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 layer exposed (CMS/[facility] V24, CMS/HCC V28) DEBRIDEMENT Routine 06/17/2025 3:15 PM EDT Type 2 diabetes mellitus with foot ulcer (CODE) ([facility] V24, [facility] V28) Non-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 layer exposed (CMS/[facility] V24, CMS/HCC V28) DEBRIDEMENT Routine [...] of right foot with fat layer exposed ([facility] V24, [facility] V28) Diabetic polyneuropathy associated with type 2 diabetes mellitus ([facility] V24, [facility] V28) from Last 3 Months [...] LAB HEMETOLOGY METHOD 06/02/2025 2:[address] [facility] RBC 4.10(L) 4.50 - 5.50 M/mcL LAB HEMETOLOGY METHOD 06/02/2025 2:[address] [facility] Hemoglobin 12.1(L) 13.5 - 17.5 g/dL LAB HEMETOLOGY METHOD 06/02/2025 2:[address] [facility] Hematocrit 36.8(L) 42.0 - 54.0 % LAB HEMETOLOGY METHOD 06/02/2025 2:[address] [facility] MCV 88.9 79.0 - 98.0 FL LAB HEMETOLOGY METHOD 06/02/2025 2:[address] [facility] MCH 29.2 27.0 - 32.0 pcg LAB HEMETOLOGY METHOD 06/02/2025 2:20 PM EDT [facility] MCHC 32.9 32.0 - 37.0 g/dL LAB HEMETOLOGY METHOD 06/02/2025 2:[address] [facility] RDW 13.6 11.0 - 15.0 % LAB HEMETOLOGY METHOD 06/02/2025 2:[address] [facility] Platelets 229 130 - 400 K/mcL LAB HEMETOLOGY METHOD 06/02/2025 2:[address] [facility] MPV 11.4(H) 7.0 - 11.0 FL LAB HEMETOLOGY METHOD 06/02/2025 2:[address] [facility] NRBC 0.0 <1.0 % LAB HEMETOLOGY METHOD 06/02/2025 2:[address] [facility] NRBC Absolute 0.00 <0.10 K/mcL LAB HEMETOLOGY METHOD 06/02/2025 2:[address] [facility] Neutrophils Relative 60.7 % LAB HEMETOLOGY METHOD 06/02/2025 2:[address] [facility] Lymphocytes Relative 22.4 % LAB HEMETOLOGY METHOD 06/02/2025 2:[address] [facility] Monocytes Relative 10.9 % LAB HEMETOLOGY METHOD 06/02/2025 2:[address] [facility] Eosinophils Relative 5.1 % LAB HEMETOLOGY METHOD 06/02/2025 2:[address] [facility] Basophils Relative 0.4 % LAB HEMETOLOGY METHOD 06/02/2025 2:[address] [facility] Immature Granulocytes Relative 0.5 % LAB HEMETOLOGY METHOD 06/02/2025 2:[address] [facility] Neutrophils Absolute 4.61 1.50 - 7.00 K/mcL LAB HEMETOLOGY METHOD 06/02/2025 2:[address] [facility] Lymphocytes Absolute 1.70 1.00 - 5.00 K/mcL LAB HEMETOLOGY METHOD 06/02/2025 2:[address] [facility] Monocytes Absolute 0.83 0.20 - 1.00 K/mcL LAB HEMETOLOGY METHOD 06/02/2025 2:[address] [facility] Eosinophils Absolute 0.39 0.00 - 0.50 K/mcL LAB HEMETOLOGY METHOD 06/02/2025 2:[address] [facility] Basophils Absolute 0.03 0.00 - 0.20 K/[facility] LAB HEMETOLOGY METHOD 06/02/2025 2:[address] [facility] Immature Granulocytes Absolute 0.04(H) 0.00 - 0.03 K/[facility] LAB HEMETOLOGY METHOD 06/02/2025 2:[address] [facility] Blood Venous blood specimen / Unknown Venipuncture / Unknown 06/02/2025 12:23 PM EDT 06/02/2025 2:07 PM EDT [facility] LAB BLOOD ORDERABLES Final Result Performing Organization Address [facility]/ZIP Co de Phone Number [facility] [address] [place] [address], [place] [phone] * Sedimentation rate (06/02/2025 12:23 PM EDT) Sed Rate 16 0 - 20 mm/hr LAB HEMETOLOGY METHOD 06/02/2025 2:[address] [facility] Blood Venous blood specimen / Unknown Venipuncture / Unknown 06/02/2025 12:23 PM EDT 06/02/2025 2:07 PM EDT [facility] LAB BLOOD ORDERABLES Final Result [facility] [address] [place] [address], [place] [phone] * (ABNORMAL) C-reactive protein (06/02/2025 12:23 PM EDT) [facility] C-Reactive Protein 0.84(H) <=0.50 mg/dL LAB CHEMISTRY METHOD 06/02/2025 3:[address] [facility] Blood Venous blood specimen / Unknown Venipuncture / Unknown 06/02/2025 12:23 PM EDT 06/02/2025 2:07 PM EDT [facility] LAB BLOOD ORDERABLES Final Result [facility] [address] [place] [address], [place] [phone] * (ABNORMAL) Basic metabolic panel (06/02/2025 12:23 PM EDT) [facility] Sodium 136 133 - 145 mmol/L LAB CHEMISTRY METHOD 06/02/2025 3:[address] [facility] Potassium 4.2 3.5 - 5.5 mmol/L LAB CHEMISTRY METHOD 06/02/2025 3:[address] [facility] Chloride 104 96 - 110 mmol/L LAB CHEMISTRY METHOD 06/02/2025 3:[address] [facility] CO2 27 21 - 32 mmol/L LAB CHEMISTRY METHOD 06/02/2025 3:[address] [facility] Anion Gap 5 3 - 11 LAB CHEMISTRY METHOD 06/02/2025 3:[address] [facility] Glucose 174(H) 70 - 100 mg/dL LAB CHEMISTRY METHOD 06/02/2025 3:[address] [facility] BUN 24 5 - 25 mg/dL LAB CHEMISTRY METHOD 06/02/2025 3:[address] [facility] Creatinine 1.33(H) 0.70 - 1.30 mg/dL LAB CHEMISTRY METHOD 06/02/2025 3:[address] [facility] eGFR 57(L) >=60 mL/min/1. 73m2 LAB CHEMISTRY METHOD 06/02/2025 3:[address] [facility] Comment:Calculation based on the Chronic Kidney Disease Epidemiology Collaboration (CKD-EPI) equation refit without adjustment for race. BUN/Creatinine Ratio 18.0 LAB CHEMISTRY METHOD 06/02/2025 3:[address] [facility] Calcium 8.8 8.5 - 10.5 mg/dL LAB CHEMISTRY METHOD 06/02/2025 3:[address] [facility] Blood Venous blood specimen / Unknown Venipuncture / Unknown 06/02/2025 12:23 PM EDT 06/02/2025 2:07 PM EDT [facility] LAB BLOOD ORDERABLES Final Result [facility] [address] [place] [address], * (ABNORMAL) Culture wound with gram stain (06/02/2025 12:05 PM EDT) Culture, Wound Methicillin-Resista nt Staphylococcus aureus(A) ARIANA 06/05/2025 10:[address] [facility] Comment: The organism value for this result has been updated. These results have been appended to the previously preliminary verified report. Edited result: Previously reported as Staphylococcus aureus on 06/04/2025 at 1244 EDT. Culture, Wound Morganella morganii ssp morganii(A) ARIANA 06/05/2025 10:[address] [facility] Comment: The organism value for this result has been updated. These results have been appended to the previously preliminary verified report. This is an edited result. Previous organism was Gram negative bacilli on 06/04/2025 at 1244 EDT. Culture, Wound Streptococcus beta-hemolytic Group G(A) ARIANA 06/05/2025 10:[address] [facility] Comment: Susceptibility testing is not [...] No organisms noted 06/05/2025 10:[address] [facility] Swab Structure of right foot [...] LAB MICROBIOLOGY - GENERAL ORDERABLES Final Result [facility] ([facility]) [facility] [address] [place] [address], * Debridement Diabetic Ulcer Right Toe D1, [...] Signed Date: 05/31/2025 03:29 ET Workstation ID: [id number] Transcribed By: Self Edit Transcribed Date: 05/31/2025 [...] enhancementafter intravenous contrast administration. Nonspecific area of O1cqybvysudam, T2 fat sat hyperintense signal along the [...] Signed Date: 05/31/2025 03:29 ET Workstation ID: [id number] Transcribed By: Self Edit Transcribed Date: 05/31/2025 03:21 ET [facility] IMG MRI PROCEDURES Final Re sult * XR Foot 3+ Views Right (05/19/2025 1:27 PM EDT) Anatomical Region Laterality Modality Lower Extremities, Foot Right [facility] 05/20/2025 7:57 AM EDT Impressions 05/20/2025 7:59 AM EDT No fracture or dislocation. Thinning of the cortex of the medial aspect of the first distal phalanx which could represent early osteomyelitis. More definitive evaluation with radionuclide bone scan should be considered if clinically warranted. Code 14374 -------- FINAL REPORT -------- Dictated By: Eddie Jose Dictated Date: 05/20/2025 07:57 ET Assigned Physician: Eddie Jose Reviewed and Electronically Signed By: Eddie Jose Signed Date: 05/20/2025 07:59 ET Workstation ID: [id number] Transcribed By: Self Edit Transcribed Date: 05/20/2025 [...] scan should be considered ifclinically warranted. Code 39650 -------- FINAL REPORT -------- Dictated By: Eddie Jose Dictated Date: 05/20/2025 07:57 ET Assigned Physician: Eddie Jose Reviewed and Electronically Signed By: Eddie Jose Signed Date: 05/20/2025 07:59 ET Workstation ID: [id number] Transcribed By: Self Edit Transcribed Date: 05/20/2025 [...] Documents on File Type Date Recorded Patient Corporate Specialist Expl anation Health Care Decision (hx) 02/03/2021 [...] (hx) 01/17/2021 AD WATKINS DIRECTIVE Care Teams Senior [employer] D[employer] Relationship Specialty Start Date End Date Pollo Thurston MD [address] [place] [phone] PCP - General Internal Medicine 06/02/25
--- OUTSIDE RECORDS SUMMARY | 2025-07-01 13:56 | XMS_ITS | Clinical Summary ---
Author Organization [employer] Address [address] [facility] [address] [place] [address] Care Team Providers Care Business Continuity Global Director Name Role Phone Unavailable Primary Care Provider Unavailabl e Allergies Active Allergy Reactions Criticality Noted Date Comments Black [place] Flavoring Agent (Non-Screening) 04/05/2025 Medications gabapentin (Neurontin) [...] Dyspnea on exertion 09/27/2021 Cerebrovascular accident (CVA) ([facility]) 021 Overview (04/23/2025): Last Assessment & [...] kidney disease) stage 3, GFR 30-59 ml/min ([facility]) 04/08/2019 Microalbuminuria 04/08/2019 Chronic back pain 11/03/2018 Coronary artery disease invo lving [place] coronary artery of [place] heart without angina pectoris 10/01/2017 Overview (04/23/2025): Last Assessment & Plan: No ischemic or heart failure symptoms. 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 ([facility]) 10/31/2016 Background diabetic retinopathy 10/20/2015 Depressive [...] Description 05/12/2025 9:00 AM EDT Office Visit [facility] [address] [place] [address] Anoop David DDS History of tooth extraction, unspecified edentulism class (Primary Dx) 05/11/2025 Orders Only [facility] [address] [place] [address] Eliecer Romero DMD 04/23/2025 2:00 PM EDT Office Visit [facility] [address] [place] [address] Eliecer Romero DMD Necrosis of dental pulp (Primary Dx) 04/05/2025 2:30 PM EDT Office Visit [facility] [address] [place] [address] Eliecer Romero DMD Non-restorable tooth (Primary Dx); [...] Description 07/26/2025 12:45 PM EST Office Visit [facility] [address] [place] [address] Lewis Maldonado Health Maintenance Due Date Last [...] Most Recently Relevant to Health Maintenance Insurance [facility] MEDICA[facility] STAND ADULT
--- OUTSIDE RECORDS SUMMARY | 2025-07-01 13:57 | XMS_ITS | Patient Health Record ---
Author [facility] Address [address] [facility] [place] [address] Care Team Providers Care Lease Examiner Name Role Phone Pollo Thurston Primary Care Provider Andrzej Ramirez Unavailable [phone] Allergies No Known Allergies Results Component Value [...] Problem Acquired hammer toe of right foot (2020860554961912 ) Other hammer toe(s) (acquired), right foot (M20.41) Active confirmed Response to treatment, Improvemen t Problem Acquired hammer toe of left foot (8603595212434735 ) Other hammer toe(s) (acquired), left foot (M20.42) Active confirmed Response to treatment, Improvemen t Problem Polyneuropathy due to diabetes mellitus type I (076909080) Type 1 diabetes mellitus with diabetic polyneuropathy (E10.42) Active confirmed Problem Skin ulcer of toe of right foot with fat layer exposed (L97.512) Active confirmed Vital Signs Blood pressure diastolic 67 mm Hg 05/18/2025 Height 5ft8in in 05/18/2025 Blood pressure systolic 129 mm Hg 05/18/2025 Weight 240 lbs 05/18/2025 BMI 36.49 kg/m2 05/18/2025 Procedures Procedure Date Ordered Date Performed Result Body Sit e 70292-HSJWEGO NAIL, 1-5 07/28/2024 N/A 81354-TXFL SKIN LESIONS, OVER 4 07/28/2024 N/A A7878-YXNVQCIR DYSTROPHIC NAILS ANY # 07/28/2024 N/A 73368-LMOBYGM NAIL, 1-5 11/03/2024 N/A 37454-YLZF SKIN LESIONS, OVER 4 11/03/2024 N/A I7979-ZPMOVFWO DYSTROPHIC NAILS ANY # 11/03/2024 N/A 04995-KFVITIU NAIL, 1-5 02/09/2025 N/A 33376-CGGW SKIN LESIONS, OVER 4 02/09/2025 N/A F3810-KCVAKRWT DYSTROPHIC NAILS ANY # 02/09/2025 N/A 05083-BRQYQZB NAIL, 1-5 05/18/2025 N/A 91037-SUHR SKIN LESIONS, OVER 4 05/18/2025 N/A U7191-YQVSVMWF DYSTROPHIC NAILS ANY # 05/18/2025 N/A Encounters Encounter Location Date Provider Diagnosis [address] [address] 07/28/2024 Andrzejjuan miguel Rodier Type 1 diabetes mellitus with diabetic polyneuropathy E10.42 ; Tinea unguium B35.1 ; Other hammer toe(s) (acquired), right foot M20.41 and Other hammer toe(s) (acquired), left foot M20.[address] [address] 11/03/2024 Andrzej Raman Type 1 diabetes mellitus with diabetic polyneuropathy E10.42 ; Tinea unguium B35.1 ; Other hammer toe(s) (acquired), right foot M20.41 and Other hammer toe(s) (acquired), left foot M20.[address] [address] 02/09/2025 Andrzej Raman Type 1 diabetes mellitus with diabetic polyneuropathy E10.42 ; Tinea unguium B35.1 and Xerosis of skin L85.[address] [address] 05/18/2025 Andrzej Raman Type 1 diabetes mellitus [...] X ray : Foot, left 3V 12/05/2022 91725-EIPZAPW NAIL, 1-5 11/03/2024 99615-RTODGUL NAIL, 1-5 02/09/2025 82032-FJNREDK NAIL, 1-5 07/28/2024 25620-GMQYEQG NAIL, 1-5 05/18/2025 97573-QTMRKYH SKIN/TISSUE 12/05/2022 22186-THVWATY SKIN/TISSUE 01/09/2023 78591-FEOS SKIN LESIONS, OVER 4 02/08/20 23 13698-WZHX SKIN LESIONS, OVER 4 12/06/19 23 76931-AQAG SKIN LESIONS, OVER 4 07/28/20 24 60964-BBAA SKIN LESIONS, OVER 4 05/18/20 58878-GPLI SKIN LESIONS, OVER 4 11/03/19 64613-RLQK SKIN LESIONS, OVER 4 02/10/20 D9400-OEZGOXJY DYSTROPHIC NAILS ANY # S8569-VUXIXSAX DYSTROPHIC NAILS ANY # W2184-MLTMQEZH DYSTROPHIC NAILS ANY # L7353-YHOGKBYS DYSTROPHIC NAILS ANY # Z4320-ZOBKDWTD DYSTROPHIC NAILS ANY # D8864-WFEHDESC DYSTROPHIC NAILS ANY # Next Appt Details Provider Name:Andrzej Camargo , 2025 10:00:00 AM, [address] [place], [address], Insurance Providers Payer Name Payer Address Payer Phone Subscriber Number Group Number Insured Name Patient Relationship to Insured Coverage Start Date Coverage End Date Aetna PPO [address] [phone] [id number] Kirby Christianson Self - patient is the insured Medical (General) History Medical History History ICD Code Back,Hip,and Knee pain Diabetic type ll Poor circulation Stroke Surgical History Surgery Date(Month/Year) back surgery- Spine L5 03/06 cataract surgery appendectomy right leg infection- [facility] 03/2024 teeth extraction 05/10 Hospitalization History Reason Date(Month/Year)
== END 2025-07-01 11:42 | disposition home or self-care (01) ==
LOC: HO.HUSH 10:59
PROVIDERS: PCP Physician Assistant Medical; Visit Provider Nurse Practitioner Family
DX: N40.1 Benign prostatic hyperplasia with lower urinary tract symptoms (principal); N13.8 Other obstructive and reflux uropathy; R97.20 Elevated prostate specific antigen [PSA]; N40.0 Benign prostatic hyperplasia without lower urinary tract symptoms; E11.69 Type 2 diabetes mellitus with other specified complication; N52.1 Erectile dysfunction due to diseases classified elsewhere
CPT/HCPCS: 99213

== ENCOUNTER 2025-07-05 09:46 | Outpatient (REF) | payer MEDICARE, SELFPAY | END 2025-07-05 09:47 | disposition home or self-care (01) | LOC: HO.HMGCLDS 09:46 | PROVIDERS: PCP Physician Assistant Medical; Visit Provider Physician Assistant Medical | DX: Z13.89 Encounter for screening for other disorder (principal) ==

== ENCOUNTER 2025-07-06 10:59 | Outpatient (REF) | payer MEDICARE, SELFPAY ==
--- OUTSIDE RECORDS SUMMARY | 2024-04-27 09:45 | XMS_ITS ---
Author Organization [facility] Address [address] [place] [address] Care Team Providers Care Pad Tufter Name Role Phone Pollo Thurston Primary Care Provider Andrzej Ramirez Unavailable [phone] Ced Menchaca Unavailable [phone] REASON FOR VISIT Painful thick toenails which are aggrevated by shoes and causes difficulty standing/walking Medications Medication SIG (Take, Route, Frequency, Duration) Notes Start Date End Date Status Extra Depth Diabetic Shoes with 3 Pair Custom heat-molded multi-density innersoles for 1 year Dx: Active Encounters Encounter Location Date Provider Diagnosis [facility] [address] [place] [address] 04/27/2024 Ced Menchaca Type 1 diabetes mellitus [...] Provider Name:Andrzej Camargo , 2025 10:00:00 AM, [address] [place] [address], [id number], Procedure Notes * Category Sub-Category Detail Notes Keratoma Treatment Parring or Cutting o f Benign Hyperkeratotic Lesion(s) 20910 ( >4 Lesions) - The Benign hyperkeratotic [...] as necessary. Patient chooses, no pharmaceutical tx (86294) Nail Reduction Nail Reduction Trimming of dyst rophic nails performed to reduce/remove overall nail length and girth, by manual and electrical means with use of a nail nipper and/or dremel, to more viable healthy nail plate or bed tissue 6-10 (G0127) Progress Notes * Kirby CHRISTIANSONDOB:1950 ( 74 yo M)Acc No.[id number]:04/27/2024 Progress Note Patient: Kirby ALVARENGA Provider: Lamont Hernandez DPM :1950 A ge:73 Y S ex:Male Date:04/27/2024 Address: [address], [address] [id number] Pcp:Pollo Thurston Subjective: * Chief Complaints: * [...] enies. C ardiovascular: Pacemaker d enies. M [employer] d enies. W PW d enies. C [...] as necessary. Patient chooses, no pharmaceutical tx (25357). K eratoma Treatment: Parring or Cutting of [...] SKIN LESIONS, OVER 4, Modifiers: XS , 31332 DEBRIDE NAIL, 1-5, Modifiers: XS , G0127 [...] 0 04/27/2024 Generated for Zachary wells/Concepcion/Jasmeet on: 01:42 PM EDT History and Physical Notes * [...]
[2025-07-06 12:46] LABS: Appearance Urine Cloudy; Glucose Urine UA >=1000 mg/dL (Negative); PH 5.5 (5.0-9.0); Specific Gravity - Urine >= 1.030 (1.005-1.025); UMIC TRIGGER UACC YES
--- OUTSIDE RECORDS SUMMARY | 2025-07-06 13:42 | XMS_ITS | Clinical Summary ---
Author Organization [employer] Address [address] [facility] 7t [place] [address] Care Team Providers Care Service Line Bus Cleaner Name Role Phone Unavailable Primary Care Provider Unavailabl e Allergies Active Allergy Reactions Criticality Noted Date Comments Black [place] Flavoring Agent (Non-Screening) 04/05/2025 Medications gabapentin (Neurontin) [...] Dyspnea on exertion 09/27/2021 Cerebrovascular accident (CVA) ([facility]) 021 Overview (04/23/2025): Last Assessment & [...] kidney disease) stage 3, GFR 30-59 ml/min ([facility]) 04/08/2019 Microalbuminuria 04/08/2019 Chronic back pain 11/03/2018 Coronary artery disease invo lving [place] coronary artery of [place] heart without angina pectoris 10/01/2017 Overview (04/23/2025): Last Assessment & Plan: No ischemic or heart failure symptoms. 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 ([facility]) 10/31/2016 Background diabetic retinopathy 10/20/2015 Depressive [...] Description 05/12/2025 9:00 AM EDT Office Visit [facility] [address] [place] [address] Anoop David DDS History of tooth extraction, unspecified edentulism class (Primary Dx) 05/11/2025 Orders Only [facility] [address] [place] [address] Eliecer Romero DMD 04/23/2025 2:00 PM EDT Office Visit [facility] [address] [place] [address] Eliecer Romero DMD Necrosis of dental pulp (Primary Dx) 04/05/2025 2:30 PM EDT Office Visit [facility] [address] [place] [address] Eliecer Romero DMD Non-restorable tooth (Primary Dx); [...] Description 07/26/2025 12:45 PM EST Office Visit [facility] [address] [place] [address] Lewis Maldonado Health Maintenance Due Date Last [...] Most Recently Relevant to Health Maintenance Insurance [facility] MEDICA[facility] STAND ADULT
--- OUTSIDE RECORDS SUMMARY | 2025-07-06 13:42 | XMS_ITS | Encounter Summary ---
Author Organization [employer] Address [address] [facility] [address] [place] [address] Care Team Providers Care Stem Maker Name Role Phone Unavailable Primary Care Provider Unavailabl e Encounter Details Date Type Department Care Team (Latest Contact Info) Description 08/10/2019 Abstract [facility] CONVERSIONS Dental, Provider, DDS Social History [...] Description 07/26/2025 12:45 PM EST Office Visit [facility] [address] [place] [address] Lewis Maldonado documented as of this encounter Visit Diagnoses Not on filedocumented in this encounter
--- OUTSIDE RECORDS SUMMARY | 2025-07-06 13:43 | XMS_ITS | Patient Health Record ---
Author Organization [facility] Address [address] [facility] [place] [address] Care Team Providers Care Volleyball Assistant Coach Name Role Phone Pollo Thurston Primary Care Provider Andrzej Ramirez Unavailable [phone] Allergies No Known Allergies Results Component Value [...] Problem Acquired hammer toe of right foot (6589249457519289 ) Other hammer toe(s) (acquired), right foot (M20.41) Active confirmed Response to treatment, Improvemen t Problem Acquired hammer toe of left foot (3972672719977538 ) Other hammer toe(s) (acquired), left foot (M20.42) Active confirmed Response to treatment, Improvemen t Problem Polyneuropathy due to diabetes mellitus type I (813152506) Type 1 diabetes mellitus with diabetic polyneuropathy (E10.42) Active confirmed Problem Skin ulcer of toe of right foot with fat layer exposed (L97.512) Active confirmed Vital Signs Blood pressure diastolic 67 mm Hg 05/18/2025 Height 5ft8in in 05/18/2025 Blood pressure systolic 129 mm Hg 05/18/2025 Weight 240 lbs 05/18/2025 BMI 36.49 kg/m2 05/18/2025 Procedures Procedure Date Ordered Date Performed Result Body Sit e 10525-HUVFNZE NAIL, 1-5 07/28/2024 N/A 37909-JMTB SKIN LESIONS, OVER 4 07/28/2024 N/A Z9810-PSRZCVSE DYSTROPHIC NAILS ANY # 07/28/2024 N/A 25138-QGVHUQR NAIL, 1-5 11/03/2024 N/A 42699-PVZU SKIN LESIONS, OVER 4 11/03/2024 N/A J0248-ALSKMXWF DYSTROPHIC NAILS ANY # 11/03/2024 N/A 23279-MVFACNZ NAIL, 1-5 02/09/2025 N/A 66385-QUNF SKIN LESIONS, OVER 4 02/09/2025 N/A R0485-THKGKOME DYSTROPHIC NAILS ANY # 02/09/2025 N/A 58174-OCRFKNU NAIL, 1-5 05/18/2025 N/A 90688-QHTL SKIN LESIONS, OVER 4 05/18/2025 N/A S9115-AQLPFMPE DYSTROPHIC NAILS ANY # 05/18/2025 N/A Encounters Encounter Location Date Provider Diagnosis [address] [address] 07/28/2024 Andrzejjuan miguel Rodier Type 1 diabetes mellitus with diabetic polyneuropathy E10.42 ; Tinea unguium B35.1 ; Other hammer toe(s) (acquired), right foot M20.41 and Other hammer toe(s) (acquired), left foot M20.[address] [address] 11/03/2024 Andrzej Raman Type 1 diabetes mellitus with diabetic polyneuropathy E10.42 ; Tinea unguium B35.1 ; Other hammer toe(s) (acquired), right foot M20.41 and Other hammer toe(s) (acquired), left foot M20.[address] [address] 02/09/2025 Andrzej Raman Type 1 diabetes mellitus with diabetic polyneuropathy E10.42 ; Tinea unguium B35.1 and Xerosis of skin L85.[address] [address] 05/18/2025 Andrzej Raman Type 1 diabetes mellitus [...] X ray : Foot, left 3V 12/05/2022 08764-EUMISLV NAIL, 1-5 11/03/2024 62797-VKIYAVF NAIL, 1-5 02/09/2025 72070-WXUIUXU NAIL, 1-5 07/28/2024 33186-QSGABDQ NAIL, 1-5 05/18/2025 08622-KJXKFBO SKIN/TISSUE 12/05/2022 09236-IOMZXTB SKIN/TISSUE 01/09/2023 86293-RORA SKIN LESIONS, OVER 4 02/08/20 23 58601-ZLDH SKIN LESIONS, OVER 4 12/06/19 23 48954-EVFM SKIN LESIONS, OVER 4 07/28/20 24 62285-IGLL SKIN LESIONS, OVER 4 05/18/20 11210-YFOS SKIN LESIONS, OVER 4 11/03/19 06980-MFXD SKIN LESIONS, OVER 4 02/10/20 W8411-QSSPZXCD DYSTROPHIC NAILS ANY # C8251-DXNRCOBA DYSTROPHIC NAILS ANY # P0121-TEOWCVAD DYSTROPHIC NAILS ANY # F3916-VOGXCUFQ DYSTROPHIC NAILS ANY # Y3532-VYANDZSB DYSTROPHIC NAILS ANY # L1418-LKPBWTNG DYSTROPHIC NAILS ANY # Next Appt Details Provider Name:Andrzej Camargo , 2025 10:00:00 AM, [address] [place], [address], Insurance Providers Payer Name Payer Address Payer Phone Subscriber Number Group Number Insured Name Patient Relationship to Insured Coverage Start Date Coverage End Date Aetna PPO [address] [phone] [id number] Kirby Christianson Self - patient is the insured Medical (General) History Medical History History ICD Code Back,Hip,and Knee pain Diabetic type ll Poor circulation Stroke Surgical History Surgery Date(Month/Year) back surgery- Spine L5 03/06 cataract surgery append[place] [facility] [place] teeth extraction 05/10 Hospitalization History Reason Date(Month/Year)
== END 2025-07-06 11:00 | disposition home or self-care (01) ==
LOC: HO.LAB 10:59
PROVIDERS: Visit Provider Physician Assistant Medical
DX: Z00.00 Encounter for general adult medical examination without abnormal findings (principal)
CPT/HCPCS: 81001

== ENCOUNTER 2025-07-19 14:13 | Outpatient (AMB) | payer MEDICARE, SELFPAY ==
--- NOTE | 2025-07-19 14:15 | MHC.OFFVIS ---
Vital Signs 07/19/25 14:25 Height 5 ft 7.5 in Weight 240 lb BMI 37.0 BP 179/76 H Blood Pressure Location Rt brachial Position Sitting Pulse 75 Pulse Source Pulse Oximeter Pulse Oximetry (%) 97 Oxygen Delivery Method Room Air Intake Visit Reasons: Chronic pain syndrome Intake Note: Pain today 01/23 It Infrastructure Manager Required: No Accompanied by: Spouse Allergies almond (ALMONDS) Allergy (Severe, Verified 07/19/25 14:25) THROAT CLOSES pecan nut (PECAN) Allergy (Severe, Verified 07/19/25 14:25) THROAT CLOSES HPI Comments Details: The patient is a 74-year-old male presenting with chronic pain syndrome related to chronic back pain. He reports undergoing back surgery approximately four years ago, which did not alleviate his symptoms, and he expresses regret about the procedure. The patient has been on hydrocodone for pain management, but he is seeking alternative therapies as referred by his primary care provider. The patient has a history of stroke, which occurred around the time of his back surgery, resulting in right-sided weakness affecting his right arm and leg. He also has a history of chronic kidney disease and insulin-dependent diabetes mellitus. Additionally, he has experienced deep vein thrombosis in the past. The patient reports a right toe ulcer that has been present since February, for which he is under the care of an Infectious Disease and Wound specialists. He also mentions swelling in his right leg and calf pain, which has been more pronounced in recent days. - Onset: Chronic back pain persisting for several years, exacerbated post-surgery four years ago - Quality: Described as severe, persistent pain localized to the lower back - Radiation: Pain does not radiate to the legs, primarily localized to the back - Exacerbating factors: Bending forward, standing, walking, and certain movements increase pain - Relieving factors: Stationary biking and limited walking provide some relief. Hydrocodone has been effective with BID prn use. - Interference: Pain limits ability to walk long distances and perform certain physical activities - Affect: Pain significantly impacts daily activities and mobility - Analgesia: Currently using hydrocodone, with occasional increase in dosage for severe pain - Adverse Effects: No specific adverse effects from hydrocodone reported - Activities of Daily Living: Pain restricts walking and bending, but patient manages some exercise with stationary biking - Aberrant Drug Related Behaviors: No evidence of medication misuse or abuse reported [facility] Medical History Chronic back pain Chronic pain syndrome Stroke due to occlusion of left anterior cerebral artery History of CVA in adulthood Hyperlipidemia GERD (gastroesophageal reflux disease) Hypertension Vitamin B12 deficiency Vitamin D deficiency CKD (chronic kidney disease) History of transient ischemic attack and cerebral infarction Insulin dependent type 2 diabetes mellitus Pulmonary embolism Coronary artery disease Atherosclerotic cardiovascular disease CVA (cerebral vascular accident) DVT (deep venous thrombosis) BPH (benign prostatic hyperplasia) Frequency-urgency syndrome Subacute osteomyelitis of right foot Enlarged prostate without lower urinary tract symptoms (luts) History of elevated PSA Surgical History History of surgery Family History Mother Heart attack Father Diabetes Stroke Social History Household Members: Family Housing: House Are you a primary health care marketing manager to a significant other at home: No Do you presently have visiting nurse or other home services: No Alcohol intake: current Alcohol intake frequency: does not drink Patient Tobacco Use Status: Never used Tobacco Second Hand Smoke Exposure: No service: Yes Current occupational status: retired and disabled Cognitive needs: Yes (walker) Hearing needs: No Vision needs: Yes (rx glasses) Review of Systems Const Details: - Musculoskeletal: Reports chronic back pain, right leg weakness, right calf pain - Neurological: Reports right-sided weakness post-stroke - Integumentary: Reports right toe ulcer, right leg and foot swelling - Endocrine: Reports insulin-dependent diabetes mellitus, well controlled, current A1C=6.8 All systems reviewed & are unremarkable except as noted in HPI and below Physical Exam Vital Signs: Last Vital Signs Pulse 75 07/19/25 14:25 BP 179/76 H 07/19/25 14:25 Pulse Ox 97 07/19/25 14:25 Oxygen Delivery Method Room Air 07/19/25 14:25 BMI result Body Mass Index 37.0 General: Appears afebrile. Alert and oriented. Mood and affect appropriate. Follows and participates in conversation appropriately. Respiratory effort is unlabored. No cough. Able to transition from sit to stand with assistance. Right side weakness h/o CVA. Ambulates with slow, antalgic gait, uses walker with seat. General: Yes no CVA tenderness Back/Spine/Pelvis Other: Limited lumbar ROM due to pain. Lumbar flexion and extension reproduce moderate to severe pain. Demonstrates 5/5 left and 4/5 right strength of quadriceps bilaterally as well as flexion/dorsiflexion of bilateral feet against resistance. 2+ pedal pulses bilaterally. Straight leg rise with dorsiflexion negative bilaterally. Reports right calf tenderness and pain. Diminished patellar and achilles reflexes bilaterally. Facet loading test positive bilaterally. No groin pain with I/E hip rotations. Valsalva maneuver negative. Back: no CVA tenderness Cervical Spine: cervical ROM normal, cervical muscular tenderness, pain with cervical ROM and No Cervical spine tenderness Thoracic/Lumbar Spine: thoracic and lumbar spine normal to inspection, Thoracic/lumbar spine scar(s), Lasegue's sign negative, straight leg raise negative bilaterally and pain with thoraco-lumbar ROM Results Reviewed Results Reviewed: No imaging reports are available for review. Assessment & Plan Assessment & Plan (1) Chronic pain syndrome: Code(s): G89.4 - Chronic pain syndrome Category: Medical (2) Chronic back pain: Code(s): M54.9 - Dorsalgia, unspecified; G89.29 - Other chronic pain Category: Medical (3) Lumbar post-laminectomy syndrome: Code(s): M96.1 - Postlaminectomy syndrome, not elsewhere classified Category: Medical (4) Right calf pain: Code(s): M79.661 - Pain in right lower leg Category: Medical (5) Chronic back pain: Code(s): M54.9 - Dorsalgia, unspecified; G89.29 - Other chronic pain Category: Medical (6) Lumbar post-laminectomy syndrome: Code(s): M96.1 - Postlaminectomy syndrome, not elsewhere classified Category: Medical (7) Lumbosacral spondylosis: Code(s): M47.817 - Spondylosis without myelopathy or radiculopathy, lumbosacral region Category: Medical (8) Lumbar radiculopathy: Code(s): M54.16 - Radiculopathy, lumbar region Category: Medical Plan The plan includes obtaining an MRI of the back with contrast to assess for any nerve root or spinal canal compression, as well as to evaluate the stability of the lumbar hardware. An x-ray of the back will be performed to check for degree of arthritis and instability. An ultrasound of the right leg will be scheduled to rule out deep vein thrombosis due to the swelling and calf pain present. The patient is advised to continue follow-up with the Infectious disease and Wound Care specialists for the right toe ulcer and to ensure the infection is managed before any interventional procedures are considered. All questions and concerns have been answered and patient agreed with the treatment plan. Follow up for MRI/xray results and sooner as needed. Patient was informed and verbally consented to the use of an ambient scribe for clinic note documentation during this visit. Orders: Orders US venous duplex LE RT 07/19/25 M79.661 - Pain in right lower leg MR lumbar spine wo/w con 07/19/25 G89.29 - Other chronic pain, M47.817 - Spondylosis without myelopathy or radiculopathy, lumbosacral region, M54.16 - Radiculopathy, lumbar region, M54.9 - Dorsalgia, unspecified, M96.1 - Postlaminectomy syndrome, not elsewhere classified XR lumbar spine 4V min 07/19/25 G89.29 - Other chronic pain, G89.4 - Chronic pain syndrome, M54.9 - Dorsalgia, unspecified, M96.1 - Postlaminectomy syndrome, not elsewhere classified Coding Level of Care Code New Pt Level 4 (77901) Diagnoses Chronic pain syndrome G89.4 Chronic back pain M54.9; G89.29 Lumbar post-laminectomy syndrome M96.1 Right calf pain M79.661 Lumbosacral spondylosis M47.817 Lumbar radiculopathy M54.16
[2025-07-19 14:25] VITALS: BP 179/76; PULSE 75; O2SAT 97; BMI 37.0
== END 2025-07-19 15:22 | disposition home or self-care (01) ==
LOC: HO.PMC 14:14
PROVIDERS: PCP Physician Assistant Medical; Visit Provider Nurse Practitioner Family
DX: G89.4 Chronic pain syndrome (principal); M54.9 Dorsalgia, unspecified; G89.29 Other chronic pain; M96.1 Postlaminectomy syndrome, not elsewhere classified; M79.661 Pain in right lower leg; M47.817 Spondylosis without myelopathy or radiculopathy, lumbosacral region; M54.16 Radiculopathy, lumbar region
CPT/HCPCS: 99204

== ENCOUNTER → 2025-07-19 14:13 | Outpatient (BNVA) | payer MEDICARE, SELFPAY | PROVIDERS: PCP Physician Assistant Medical; Visit Provider Nurse Practitioner Family | DX: M54.9 Dorsalgia, unspecified (principal); G89.29 Other chronic pain; M96.1 Postlaminectomy syndrome, not elsewhere classified; M79.661 Pain in right lower leg; M47.817 Spondylosis without myelopathy or radiculopathy, lumbosacral region; M54.16 Radiculopathy, lumbar region | CPT/HCPCS: 99202 ==

== ENCOUNTER 2025-07-28 11:13 | Outpatient (REF) | payer MEDICARE, SELFPAY ==
--- OUTSIDE RECORDS SUMMARY | 2024-04-27 08:45 | XMS_ITS ---
Author Organization [facility] Address [address] [place] [address] Care Team Providers Care Assembler Molded Frames Name Role Phone Pollo Thurston Primary Care Provider Andrzej Ramirez Unavailable [phone] Ced Menchaca Unavailable [phone] REASON FOR VISIT Painful thick toenails which are aggrevated by shoes and causes difficulty standing/walking Medications Medication SIG (Take, Route, Frequency, Duration) Notes Start Date End Date Status Extra Depth Diabetic Shoes with 3 Pair Custom heat-molded multi-density innersoles for 1 year Dx: Active Encounters Encounter Location Date Provider Diagnosis [facility] [address] [place] [address] 04/27/2024 Ced Menchaca Type 1 diabetes mellitus with diabetic polyneuropathy E10.42 ; Skin disease L98.9 ; Hallux valgus (acquired), left foot M20.12 ; Tinea unguium B35.1 ; Pain in right toe(s) M79.674 ; Pain in left toe(s) M79.675 and Ingrowing nail L60.0 Assessments Encounter Date Diagnosis (ICD Code) Assessment Notes Treatment Notes Treatment Clinical Notes Section Notes 04/27/2024 Type 1 diabetes mellitus with diabetic polyneuropathy (ICD-10 - E10.42) 04/27/2024 Skin disease (ICD-10 - L98.9) 04/27/2024 Hallux valgus (acquired), left foot (ICD-10 - M20.12) 04/27/2024 Tinea unguium (ICD-10 - B35.1) 04/27/2024 Pain in right toe(s) (ICD-10 - M79.674) 04/27/2024 Pain in left toe(s) (ICD-10 - M79.675) 04/27/2024 Ingrowing nail (ICD-10 - L60.0) Plan Of Treatment Medication Medication Name Sig Start Date Stop Date Notes Extra Depth Diabetic Shoes w ith 3 Pair Custom heat-molded multi-density innersoles for 1 year Dx: Next Appt Details Follow Up: 3 Months, Reason: Provider Name:Andrzej Camargo , 2025 10:00:00 AM, [address] [place] [address], [phone], Procedure Notes * Category Sub-Category Detail Notes Keratoma Treatment Parring or Cutting o f Benign Hyperkeratotic Lesion(s) 35257 ( >4 Lesions) - The Benign hyperkeratotic lesions, as described above were pared, and/or cut utilizing a sterile #15 blade, tissue nippers, and/or dremel Debride Nails 1-5 Procedure: Nail debrideme nt performed extensively to reduce/remove overall nail length and girth, subungual debris, and necrotic tissue, by manual and electrical means by use of a nail nipper and/or dremel, to more viable healthy nail plate or bed tissue 1-5. Silver nitrate used for any petechial bleeding as necessary. Patient chooses, no pharmaceutical tx (80328) Nail Reduction Nail Reduction Trimming of dyst rophic nails performed to reduce/remove overall nail length and girth, by manual and electrical means with use of a nail nipper and/or dremel, to more viable healthy nail plate or bed tissue 6-10 (G0127) Progress Notes * Kirby CHRISTIANSONDOB:1950 ( 74 yo M)Acc No.[id number]:04/27/2024 Progress Note Patient: Kirby ALVARENGA Provider: Lamont Hernandez DPM :1950 A ge:73 Y S ex:Male Date:04/27/2024 Address: [address], [address] [facility] Pcp:Pollo Thurston Subjective: * Chief Complaints: * 1 . Painful thick toenails which are aggrevated by shoes and causes difficulty standing/walking. * HPI: A t Risk footcare: Pt States Last PCP Visit: D ate 0 12/16/2023 S kin problems: Location: Khris manjarrez, Left , 1st. Duration: s everal months. Onset/Cause: s hoegear. Course: i mproved. Aggravated by: n o aggrevating factors. Treatments: p t has new dm shoes and inserts from 05/08 from [facility]. P ainful Nails: Pt States Last PCP Visit: D ate: 0 09/18/2022 * ROS: G eneral/Constitutional: Nausea d enies. V omiting d enies. H justin Thirst d enies. L oss appetite d enies. C hills d enies. F atigue d enies.?Fever d enies. N ight Sweats d enies. U nexplained weight loss d enies. U nexplained weight gain d enies. H EENTM: Dentures d enies. D izziness d enies. G lasses/contacts d enies. R etinopathy d enies. B lurred/double vision d enies. T MJ?denies. D ischarge/drainage d enies. I mplants d enies. S ore throat d enies. D ental implants d enies. H raquel of hearing d enies. D ifficulty chewing/swallowing/speaking d enies. N ose bleeds d enies. S ore mouth d enies. ? R espiratory: On Oxygen d enies. P neumonia/pleurisy d enies.?Bronchitis d enies. E mphysema d enies. C oughing d enies. C ough blood?denies. S hortness of breath d enies. W heezing d enies. C ardiovascular: Pacemaker d enies. M BLACK AND WHITE PRINTER OPERATOR d enies. W PW d enies. C HF d enies. H eart attack d enies. S eptal defect d enies. R apid beat d enies. C hest pain d enies. A trial Fib. d enies. M urmur/Palpitations d enies. G astrointestinal: Hemorrhoids d enies. S tomach/Abdominal pain d enies. D ark blood stool d enies. I rritable bowel d enies. C onstipation d enies. D iarrhea d enies. H ematology: Swelling d enies. C lots d enies. V aricose Veins d enies. B ruising d enies. B leeding problem d enies. G enitourinary: Blood urine d enies. F requent/Painfu/urination/bladder control d enies. K idney stones d enies. I nfection (UTI) d enies. N ephropathy d enies. s ex trans dis (STD) d enies. P rostate d enies. M usculoskeletal: Hammertoes d enies. B unions d enies. B ack Pain a dmits. M uscle Cramps/ Resting d enies. M uscle cramps / walking d enies.?Generalized aches and pains d enies. W eakness d enies. I nteg.: Ray d enies. S cars d enies. C orns/calluses?denies. I ngrown nails d enies. P ainful nails d enies. O pen Sores a dmits. R ashes d enies. N eurologic: Difficulty sleeping d enies. B rain disorder d enies. N umbness d enies. B alance trouble a dmits. C onfusion d enies. F ainting/blackouts d enies. T ingling d enies. T remors d enies. * Medical History: Objective: * Vitals: * Examination: O phthalmology Referral: DIABETES EYE EXAM D iabetic Retinopathy Screening: Y es 10/2022 N eurological: SENSORY: Neurological exam demonstrates, reduced vibration sensation, 5.07 monofilament test performed at plantar aspects of 5 varied sites per foot shows sensation, reduced , B/L. V ascular: DP PULSES (B): 1/4, B/L. PT PULSES (B): 1/4, B/L. CAPILLARY FILL TIME: 3 secs. per digit. B/L. TROPHIC CONDITION-TEXTURE/ELASTICITY/TURGOR/HAIR GROWTH (B):?normal, B/L. TEMPERTURE GRADIENT (C): n ormal, B/L. PIGMENTATION: n ormal, B/L. EDEMA (C): a bsent, B/L. TELANGECTASIA: a bsent, B/L. N ails: NAILS are: E longated, overgrown, dystrophic, lytic, greater than 3mm thick, discolored and friable with crumbly malodorous subungual debris, with dull to no pain on palpation due to neuropathy, TA, T5, remaining nails are elongated, overgrown, dystrophic.? D ermatologic: SKIN FINDINGS: Skin exam reveals Keratotic lesion(s) located at, Medial plantar, IPJ, TA, T5, SUB MTH (s), 1, Heel(s), B/L . G eneral Examination: GENERAL APPEARANCE: p leasant, alert, well nourished, well developed, well hydrated, with good attention to hygene/body habitus, and in no acute distress. ORIENTED: p erson,place, and time. FOOT EXAM: L ower Extremity Neurological Exam performed:?Yes V isual exam of foot performed: Y es D ate 0 10/28/2023 S ensory testing performed: s ensations diminished P edal pulse taking performed: 1 + O rthopedic: MUSCLE STRENGTH: 5 /5 all groups in a symmetrical fashion , B/L. BUNION: Medially prominent 1st MPJ, B/L, Lateral tracking 1st MPJ incompletely reducable. I ngrown Nail: INSPECTION: Reveals nail incurvation, dull pain on palpation due to neuropathy, groove hypertrophy, Bilateral nail borders, T5. Assessment: * Assessment: 1. T ype 1 diabetes mellitus with diabetic polyneuropathy - E10.42 (Primary) 2 . S kin disease - L98.9 3 . H allux valgus (acquired), left foot - M20.12? 4. T inea unguium - B35.1 5 . P ain in right toe(s) - M79.674 6. P ain in left toe(s) - M79.675 7 . I ngrowing nail - L60.0 Plan: * Treatment: * Procedures: D ebride Nails 1-5: Procedure: N ail debridement performed extensively to reduce/remove overall nail length and girth, subungual debris, and necrotic tissue, by manual and electrical means by use of a nail nipper and/or dremel, to more viable healthy nail plate or bed tissue 1-5. Silver nitrate used for any petechial bleeding as necessary. Patient chooses, no pharmaceutical tx (33001). K eratoma Treatment: Parring or Cutting of Benign Hyperkeratotic Lesion(s) 1 1057 ( >4 Lesions) - The Benign hyperkeratotic lesions, as described above were pared, and/or cut utilizing a sterile #15 blade, tissue nippers, and/or dremel. N ail Reduction: Nail Reduction T rimming of dystrophic nails performed to reduce/remove overall nail length and girth, by manual and electrical means with use of a nail nipper and/or dremel, to more viable healthy nail plate or bed tissue 6-10 (G0127). * Procedure Codes: 1 1057 TRIM SKIN LESIONS, OVER 4, Modifiers: XS , 15020 DEBRIDE NAIL, 1-5, Modifiers: XS , G0127 TRIMMING DYSTROPHIC NAILS ANY #, Modifiers: XS * Follow Up: 3 Months * Images: * The named appointment provid er may or may not be the originator of this progress note, and it is not deemed complete until electronically signed by the appointment provider. Sign off status: Pending * Provider: Lamont Hernandez DPM Date: 0 04/27/2024 Generated for Zachary wells/Concepcion/Jasmeet on: 09/27/2024 01:52 PM EST History and Physical Notes * HPI (History of Present Illness) Category Sub-Category Detail Notes Category Not es Painful Nails Pt States Last PCP Visit: Date:: 09/18/2022 Skin problems Location: Bottom, Left , 1st Duration: several months Onset/Cause: shoegear Course: improved Aggravated by: no aggrevating facto rs Treatments: pt has new dm shoes and inserts from 05/08 from [facility] At Risk footcare Pt States Last PCP Visit: Date: 4 Examination Category Sub-Category Detail Notes Category Not es Ingrown Nail INSPECTION: Reveals nail inc urvation, dull pain on palpation due to neuropathy, groove hypertrophy, Bilateral nail borders, T5 Neurological SENSORY: Neurological exa m demonstrates, reduced vibration sensation, 5.07 monofilament test performed at plantar aspects of 5 varied sites per foot shows sensation, reduced , B/L Dermatologic SKIN FINDINGS: Skin exam reveal s Keratotic lesion(s) located at, Medial plantar, IPJ, TA, T5, SUB MTH (s), 1, Heel(s), B/L Orthopedic BUNION: Medially promine nt 1st MPJ, B/L, Lateral tracking 1st MPJ incompletely reducable MUSCLE STRENGTH: 5/5 all groups in a symmetrical fashion , B/L General Examination GENERAL APPEARANCE: pleasant , alert, well nourished, well developed, well hydrated, with good attention to hygene/body habitus, and in no acute distress FOOT EXAM: Lower Extremity Neurological Exa m performed:: Yes Visual exam of foot performed:: Yes Date: 10/28/2023 Sensory testing performed:: sensations d iminished Pedal pulse taking performed:: 1+ ORIENTED: person,place, and ti me Ophthalmology Referral DIABETES EYE EXAM Diabeti c Retinopathy Screening:: Yes 10/2022 Vascular DP PULSES (B): 1/4, B/L PT PULSES (B): 1/4, B/L CAPILLARY FILL TIME: 3 secs. per digit. B/L TEMPERTURE GRADIENT (C): normal, B/L TROPHIC CONDITION-TEXTURE/ELASTICITY/TUR GOR/HAIR GROWTH (B): normal, B/L EDEMA (C): absent, B/L TELANGECTASIA: absent, B/L PIGMENTATION: normal, B/L Nails NAILS are: Elongated, overg rown, dystrophic, lytic, greater than 3mm thick, discolored and friable with crumbly malodorous subungual debris, with dull to no pain on palpation due to neuropathy, TA, T5, remaining nails are elongated, overgrown, dystrophic
--- OUTSIDE RECORDS SUMMARY | 2025-07-27 11:00 | XMS_ITS | Encounter Summary ---
Author Organization [employer] Address [address] [place] [address] [address] [place] [address] Care Team Providers Care Strap Folding Machine Operator Name Role Phone Unavailable Primary Care Provider Unavailabl e Reason for Visit * Reason Comments Routine Cleaning Dental Exam Encounter Details Date Type Department Care Team (Late st Contact Info) Description 07/27/2025 11:00 AM EST Office Visit [facility]ULT [facility] [address] [place] [address] [place] Dental calculus (Primary Dx) Social History Tobacco Use Types Packs/Day Years [...] AM EDT documented as of this encounter Last Filed Vital Signs Vital Sign Reading Time Taken Comments Blood Pressure 130/68 07/27/2025 11:05 AM EST Pulse 75 07/27/2025 11:05 AM EST Temperature - - Respiratory Rate - - Oxygen Saturation - - Inhaled Oxygen Concentration - - Weight - - Height - - Body Mass Index - - documented in this encounter Plan of Treatment Upcoming Encounters Date Type Department Care Team (Late Contact Info) Description 08/04/2025 1:00 PM EST Office Visit [facility] ADULT [facility] [address] [place] [address] Anoop David DDS [address] [facility] [place] [address] 08/17/2025 10:30 AM EST Office Visit [facility] ADULT [facility] [address] [place] [address] Anoop David, AMBER [address] [place] [address] 01/25/2026 10:15 AM EDT Office Visit [facility] [address] [place] [address] [place] Maldonado Scheduled Orders Name Type Priority Associated Diagnoses Orde r Schedule 9 F 9 F RESIN-BASED COMPOSITE - 1 SURF, ANTERIOR Dental Routine [address] arting 07/27/2025 10 F 10 F RESIN-BASED COMPOSITE - 1 SURF, ANTERIOR Dental Routine [address] arting 07/27/2025 11 F 11 F RESIN-BASED COMPOSITE - 1 SURF, ANTERIOR Dental Routine [address] arting 07/27/2025 28 28 EXTRACTION, ERUPTED TOOTH OR EXPOSED ROOT (ELEVATION/FORCEPS REMOVAL) Dental Routine [address] arting 07/27/2025 12,13,14,15 12,13,14,15 MAXILLARY PARTIAL DENTURE - RESIN BASE (INCLUDING, RETENTIVE/CLASPING MATERIALS, RESTS, AND TEETH) Dental Routine [address] arting 07/27/2025 PROPHYLAXIS - ADULT Dental Routine 1 Occ urrences starting 07/27/2025 documented as of this encounter Procedures Procedure Name Priority Date/Time Associated Diagnosis Comments PROPHYLAXIS - ADULT Routine 07/27/2025 1 1:00 AM EST ORAL HYGIENE INSTRUCTIONS Routine 2024 11:00 AM EST INTRAORAL - COMPLETE SERIES OF RADIOGRAPHIC IMAGES Routine 07/27/2025 11:00 AM EST CASE PRESENTATION, DETAILED AND EXTENSIVE TREATMENT PLANNING Routine 07/27/2025 11:00 AM EST 28 O COMPOSITE FILLING Routine 12:00 AM EST documented in this encounter Visit Diagnoses Diagnosis Dental calculus- Primary Accretions on teeth documented in this encounter
--- OUTSIDE RECORDS SUMMARY | 2025-07-27 14:00 | XMS_ITS | Encounter Summary ---
Author Organization [facility] Address [address] [place] [address] Care Team Providers Care Snagger Name Role Phone Pollo Thurston MD Primary Care Provider +1- [phone] Reason for Visit * Reason Comments Wound Care Encounter Details Date Type Department Care Team (Latest Contact Info) Description 07/27/2025 2:00 PM EST Office Visit [facility] [address] [place] [phone] Sly Welch PA [address] [place] [address] Type 2 diabetes mellitus with foot ulcer (CODE) ([facility] V24, [facility] V28) (Primary Dx); Non-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 layer exposed (CMS/[facility] V24, CMS/[facility] V28); Diabetic polyneuropathy associated with type 2 diabetes mellitus (CMS/HCC V24, CMS/[facility] V28); Other chronic osteomyelitis of right foot (CMS/[facility] V24, CMS/[facility] V28) Social History Tobacco Use Types [...] Sign Reading Time Taken Comments Blood Pressure 125/55 07/27/2025 2:09 PM EST Pulse 70 07/27/2025 2:09 PM EST Temperature 36.2 C (97.1 F) 07/27/2025 2:09 PM EST Respiratory Rate 18 07/27/2025 2:09 PM EST Oxygen Saturation 97% 07/27/2025 2:09 PM EST Inhaled Oxygen Concentration - - Weight - - Height - - Body Mass Index - - documented in this encounter Progress Notes * Mireille Yan RN - 07/27/2025 2:00 PM EST PROVIDER ORDERS Go to ER if you are presenting with fever, chills, increased redness, pain, swelling, warmth aroundwound area and/or foul smelling odor. If you have any questions or concerns, please contact the [facility] [place] at . Follow up(s)/ Referrals: Infectious Disease: [facility]- follow up as scheduled -Arterial ultrasound- Appoint 08/23/25 at 1:30P at [facility] [address], [address] Custodial: N/A Additional Orders: Increase protein in [...] please remove / unwrap compression and notify [facility] [place] at . ) N/A Offloading: Wear Diabetic shoes with inserts to the left foot -DH offloading shoe with PegAssist insole Negative Pressure Wound Therapy: (If wound vac is off/non functioning for more than 2 hours, please remove vac dressing, apply a wetto dry dressing and notify your home care agency) N/A Cellular/Tissue Based Products: -Epicord #2 Hold graft for 1 week Bathing / Showering / Hygiene: May shower with protection but DO NOT get wound dressing(s) wet. Protect dressing(s) with water repellant cover ( for example- large plastic bag or cast bag) and then may take shower. Non-wound Condition/ Other Skin Care: N/A Wound Location(s): Wound #1 (Right great toe plantar): Cleanser: Cleanse with Normal Saline Periwound: Apply Skin Prep to alessio wound Topical: N/A Primary dressing: Hydrofiber with silver (Aquacel AG)- cut to fit to wound bed Secondary dressinx2 woven gauze ( non-sterile) Secure with: 2 conforming gauze roll, Spandage size 2, 1 paper tape Compression Therapy: N/A Dressing Change Frequency: Every Other Day * Asha Goodwin RN - 07/27/2025 2:00 PM EST Discharge Patient directed to check out at front office java developer and collect visit summary with wound care directions and book follow up as directed. Dressings applied: Wound Location(s): Wound #1 (Right great toe plantar): Cleanser: Cleanse with Normal Saline Periwound: Apply Zinc Oxide to alessio wound Primary dressing: Hydrofiber with silver (Aquacel AG)- cut to fit to wound bed Secondary dressinx2 woven gauze ( non-sterile) Secure with: 2 conforming gauze roll, Spandage size 2, 1 paper tape Dressing technique was demonstrated and explained. Patient questions answered. Pt discharge from wound care center without issue or incidence. documented in this encounter Plan of Treatment Upcoming Encounters Date Type Department Care Team (Late st Contact Info) Description 08/03/2025 1:15 PM EST Clinical Support [facility] [address] [place] [phone] 08/10/2025 10:00 AM EST Clinical Support [facility] [address] [place] [phone] 08/17/2025 1:15 PM EST Clinical Support [facility] [address] [place] [phone] 08/23/2025 1:30 PM EST Ancillary Procedure [facility] [address] [place] [address] 08/24/2025 1:15 PM EST Clinical Support [facility] [address] [place] [phone] 08/31/2025 9:15 AM EST Clinical Support [facility] [address] [place] [phone] 09/07/2025 1:30 PM EST Clinical Support [facility] [address] [place] [phone] 09/14/2025 1:45 PM EST Clinical Support [facility] [address] [place] [phone] Pending Results Name Type Priority Associated Diagnoses Date /Time Debridement Diabetic Ulcer Right Toe D1, Great Procedures Routine Type 2 diabetes mellitus with foot ulcer (CODE) ([facility] V24, [facility] V28) Non-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 layer exposed ([facility] V24, [facility] V28) Diabetic polyneuropathy associated with type 2 diabetes mellitus ([facility] V24[facility] V28) Other chronic osteomyelitis of right foot ([facility] V24, [facility] V28) 07/27/2025 2:00 PM EST documented as of this encounter Goals Goal Patient Goal Type Associated Problems Recent Progress Patient-Stated? 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 V24, [facility] V28) Non-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 layer exposed ([facility] V24, [facility] V28) Diabetic polyneuropathy associated with type 2 diabetes mellitus (CMS/[facility] V24, CMS/[facility] V28) Other chronic osteomyelitis of right foot (CMS/[facility] V24, CMS/[facility] V28) documented in this encounter Visit Diagnoses Diagnosis Type 2 diabetes mellitus with foot ulcer (CODE) ([facility] V24, [facility] V28)- Primary Non-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 layer exposed ([facility] V24, [facility] V28) Diabetic polyneuropathy associated with type 2 diabetes mellitus ([facility] V24[facility] V28) Other chronic osteomyelitis of right foot ([facility] V24, [facility] V28) documented in this encounter Additional [...] Time PHQ-9 Depression Total Score: 0 03/03/20 25 8:27 AM EDT documented as of this encounter Care Teams Snagger Relationship Specialty Start Date End Date Pollo Thurston MD [address] [place] [phone] PCP - General Internal Medicine 06/02/25 documented as of this encounter
--- NOTE | ~2025-07-28 | US_ITS ---
EXAMINATION: US TRIPLEX LOWER EXTREMITY, RIGHT CLINICAL INFORMATION: Pain, right lower extremity. COMPARISON: None available. TECHNIQUE: Color-flow triplex imaging with spectral analysis and compression Doppler were performed on the right lower extremity. FINDINGS: Respiratory variation, normal compression and augmented flow are demonstrated in the interrogated right common femoral vein, superficial femoral vein, profunda femoral vein, popliteal vein and midcalf peroneal and posterior tibial venous segments . There is no Horton's cyst. US/US venous duplex LE RT IMPRESSION: No acute deep venous thrombosis interrogated veins, right lower extremity. Negative for DVT. Electronically signed by: Brett Zarate MD 07/28/2025 12:37 PM EST
--- OUTSIDE RECORDS SUMMARY | 2025-07-28 13:52 | XMS_ITS ---
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 Name Role Phone Pollo Thurston MD Primary Care Provider +1- [phone] Active Problems Problem Noted Date Diagnosed Date Osteomyelitis of right foot ([facility] V24, [facility]/ [facility] V28) 06/02/2025 Type 2 diabetes mellitus wit h foot ulcer (CODE) ([facility] V24, [facility] V28) 03/03/2025 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 right foot with fat layer exposed ([facility] V24, [facility] V28) 03/03/2025 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 right lower leg with fat layer exposed ([facility] V24, [facility] V28) 08/04/2024 Diabetes mellitus due to und erlying condition with diabetic autonomic neuropathy ([facility] V24, [facility] V28) 08/04/2024 Corns and callosities 08/04/2024 Chronic venous hypertension (idiopathic) with ulcer and inflammation of right lower extremity ([facility] V24, [facility] V28) 08/04/2024 History of colon polyps 11/19/2023 Overview (11/19/2023): 10/20/2015 Dyspnea on exertion 09/27/2021 Cerebrovascular accident (CVA) ([facility] V24, [facility] V28) 04/13/2021 [...] Doxazosin was decreased as well Pulmonary embolism ([facility] V24[facility] V28) Osteomyelitis of toe of righ t foot ([facility] V24, [facility] V28) 06/04/2019 CKD (chronic kidney disease) stage 3, GFR 30-59 ml/min ([facility] V24, [facility] V28) 04/08/2019 Microalbuminuria 04/08/2019 Chronic back pain 11/03/2018 Coronary artery disease invo [place]ving [place] coronary artery of [place] heart without angina pectoris 10/01/2017 Overview (11/19/2023): Last Assessment & Plan: No ischemic or heart failure symptoms. 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 ([facility] V24, [facility] V28) 10/31/2016 Osteoarthritis of spine with radiculopathy, lumb ar region 10/31/2016 Obstructive sleep apnea 01/24/2016 [place]11/19/2023[place] [facility] [place]ysomnogram: Date 12/10/2017; SE 77%; SM 87%; [...] by 2018 diagnostic polysomnogram. Background diabetic retinopathy ([facility] V24, [facility] V28) 10/20/2015 Depressive disorder 10/20/2015 Diabetic neuropathy ([facility] V24, [facility] V28) 0 10/20/2015 DM (diabetes mellitus), type 2 with ophthalmic complications ([facility] V24, [facility] V28) 10/20/2015 Type 2 diabetes mellitus wit h neurological manifestations ([facility] V24, [facility] V28) 10/20/2015 Diverticulosis 10/20/2015 Overview (11/19/2023): [...] goal LDL is less than 70. Old IN (myocardial infarction) 10/07/2015 Overview (11/19/2023): stentsx2, one in 2003 and RCA stent 04/25 Type 2 diabetes mellitus wit h renal manifestations ([facility] V24, [facility] V28) 10/07/2015 Additional [...] omised skin integrity. No Mireille Yan RN Decrease Wound Volume [...]
--- OUTSIDE RECORDS SUMMARY | 2025-07-28 13:52 | XMS_ITS | Clinical Summary ---
Author Organization [facility] Address [address] [place] [address] Phone Care Team Providers Care Travel Accommodation Inspector Name Role Phone Pollo Thurston MD Primary Care Provider [phone] Allergies Active Allergy Reactions Criticality Noted Date [...] 325 mg (65 mg elemental iron) tablet 3 Active empagliflozin (Jardiance) 25 mg tablet [...] Date Diagnosed Date Osteomyelitis of right foot ([facility] V24, [facility]/ C V28) 06/02/2025 Type 2 diabetes mellitus wit h foot ulcer (CODE) ([facility] V24, [facility] V28) 03/03/2025 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 right foot with fat layer exposed ([facility] V24, [facility] V28) 03/03/2025 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 right lower leg with fat layer exposed ([facility] V24, [facility] V28) 08/04/2024 Diabetes mellitus due to und erlying condition with diabetic autonomic neuropathy ([facility] V24, [facility] V28) 08/04/2024 Corns and callosities 08/04/2024 Chronic venous hypertension (idiopathic) with ulcer and inflammation of right lower extremity ([facility] V24, [facility] V28) 08/04/2024 History of colon polyps 11/19/2023 Overview (11/19/2023): 10/20/2015 Dyspnea on exertion 09/27/2021 Cerebrovascular accident (CVA) ([facility] V24, [facility] V28) 04/13/2021 [...] Doxazosin was decreased as well Pulmonary embolism ([facility] V24, [facility] V28) Osteomyelitis of toe of righ t foot ([facility] V24, [facility] V28) 06/04/2019 CKD (chronic kidney disease) stage 3, GFR 30-59 ml/min ([facility] V24, [facility] V28) 04/08/2019 Microalbuminuria 04/08/2019 Chronic back pain 11/03/2018 Coronary artery disease invo lving kashia coronary artery of kashia heart without angina pectoris 10/01/2017 Overview (11/19/2023): Last Assessment & Plan: No ischemic or heart failure symptoms. 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 ([facility] V24, [facility] V28) 10/31/2016 Osteoarthritis of spine with radiculopathy, lumb ar region 10/31/2016 Obstructive sleep apnea 01/24/2016 [place] (11/19/2023[place] [facility] [place]om[place]: [...] by 2018 diagnostic polysomnogram. Background diabetic retinopathy ([facility] V24, [facility] V28) 10/20/2015 Depressive disorder 10/20/2015 Diabetic neuropathy ([facility] V24, [facility] V28) 0 10/20/2015 DM (diabetes mellitus), type 2 with ophthalmic complications ([facility] V24, [facility] V28) 10/20/2015 Type 2 diabetes mellitus wit h neurological manifestations ([facility] V24, [facility] V28) 10/20/2015 Diverticulosis 10/20/2015 Overview (11/19/2023): [...] goal LDL is less than 70. [place] (myocardial infarction) 10/07/2015 Overview (11/19/2023): stentsx2, one in 2003 and RCA stent 04/25 Type 2 diabetes mellitus wit h renal manifestations (CMS/HCC V24, CMS/HCC V28) 10/07/2015 Encounters Date Type Department Care Team Description 07/27/2025 2:00 PM EST Office Visit [facility] [address] [place] [address] [phone] Sly Welch PA Type 2 diabetes mellitus with foot ulcer (CODE) (CMS/HCC V24, CMS/HCC V28) (Primary Dx); Non-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 layer exposed (CMS/HCC V24, CMS/HCC V28); Diabetic polyneuropathy associated with type 2 diabetes mellitus (CMS/HCC V24, CMS/HCC V28); Other chronic osteomyelitis of right foot (CMS/HCC V24, CMS/HCC V28) 07/20/2025 2:30 PM EST Office Visit [facility] [address] [place] [address] [phone] Sergio Rodriguez MD Type 2 diabetes mellitus with foot ulcer (CODE) (CMS/HCC V24, CMS/HCC V28) (Primary Dx); Non-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 layer exposed (CMS/HCC V24, CMS/HCC V28); Diabetic polyneuropathy associated with type 2 diabetes mellitus (CMS/HCC V24, CMS/HCC V28); Other chronic osteomyelitis of right foot (CMS/HCC V24, CMS/HCC V28) 07/13/2025 2:45 PM EDT Office Visit [facility] [address] [place] [address] [phone] Sly Welch PA Type 2 diabetes mellitus with foot ulcer (CODE) (CMS/HCC V24, CMS/HCC V28) (Primary Dx); Non-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 layer exposed (CMS/HCC V24, CMS/HCC V28); Diabetic polyneuropathy associated with type 2 diabetes mellitus (CMS/HCC V24, CMS/HCC V28); Other chronic osteomyelitis of right foot (CMS/HCC V24, CMS/HCC V28) 07/08/2025 3:15 PM EDT Office Visit [facility] [address] [place] [phone] Sly Welch PA Type 2 diabetes mellitus with foot ulcer (CODE) (CMS/HCC V24, CMS/HCC V28) (Primary Dx); Non-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 layer exposed (CMS/HCC V24, CMS/HCC V28); Diabetic polyneuropathy associated with type 2 diabetes mellitus (CMS/HCC V24, CMS/HCC V28); Other chronic osteomyelitis of right foot (CMS/HCC V24, CMS/HCC V28) 07/01/2025 3:15 PM EDT Office Visit [facility] [address] [place] [phone] Sly Welch PA Type 2 diabetes mellitus with foot ulcer (CODE) (CMS/HCC V24, CMS/HCC V28) (Primary Dx); Non-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 layer exposed (CMS/HCC V24, CMS/HCC V28); Diabetic polyneuropathy associated with type 2 diabetes mellitus (CMS/HCC V24, CMS/HCC V28); Other chronic osteomyelitis of right foot (CMS/HCC V24, CMS/HCC V28) 06/24/2025 3:30 PM EDT Office Visit [facility] [address] [place] [phone] Sergio Rodriguez MD Type 2 diabetes mellitus with foot ulcer (CODE) ([facility]/HCC V24, CMS/HCC V28) (Primary Dx); Non-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 layer exposed (CMS/HCC V24, CMS/HCC V28) 06/17/2025 3:15 PM EDT Office Visit [facility] [address] [place] [phone] Sly Welch PA Type 2 diabetes mellitus with foot ulcer (CODE) ([facility]/HCC V24, CMS/HCC V28) (Primary Dx); Non-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 layer exposed (CMS/HCC V24, CMS/HCC V28) 06/09/2025 2:45 PM EDT Office Visit [facility] [address] [place] [phone] Sly Welch PA Type 2 diabetes mellitus with foot ulcer (CODE) ([facility]/HCC V24, CMS/HCC V28) (Primary Dx); Non-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 layer exposed (CMS/HCC V24, CMS/HCC V28); Diabetic polyneuropathy associated with type 2 diabetes mellitus (CMS/HCC V24, CMS/HCC V28); Other chronic osteomyelitis of right foot (CMS/HCC V24, CMS/HCC V28) 06/07/[address] [facility] [address] [place] [phone] Keena Zamora RN 06/02/2025 11:30 AM EDT Office Visit [facility] [address] [place] [phone] Sly Welch PA Type 2 diabetes mellitus [...] - 05/29/2025 11:59 PM EDT Hospital Encounter [facility] [address] [place] [address] [phone] Type 2 diabetes mellitus with foot ulcer (CODE) ([facility]/HCC V24, CMS/HCC V28); Non-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 layer exposed (CMS/HCC V24, CMS/HCC V28); Diabetic polyneuropathy associated with type 2 diabetes mellitus (CMS/HCC V24, CMS/HCC V28) Discharge Disposition: Home or Self Care 05/20/[address] [facility] [address] [place] [address] [phone] Mireille Yan RN 05/19/2025 1:18 PM EDT - 05/19/2025 11:59 PM EDT Hospital Encounter [facility] [address] [place] [phone] Type 2 diabetes mellitus with foot ulcer (CODE) ([facility] V24, [facility] V28); Non-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 layer exposed ([facility] V24, [facility] V28); Diabetic polyneuropathy associated with type 2 diabetes mellitus ([facility] V24, [facility] V28) Discharge Disposition: Home or Self Care 05/19/2025 12:30 PM EDT Office Visit [facility] [address] [place] [phone] Sly Welch PA Type 2 diabetes mellitus with foot ulcer (CODE) ([facility] V24, [facility] V28) (Primary Dx); Non-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 layer exposed ([facility] V24, [facility] V28); Diabetic polyneuropathy associated with type 2 diabetes mellitus ([facility] V24, [facility] V28) 05/05/2025 12:30 PM EDT Office Visit [facility] [address] [place] [phone] Sly Welch PA Type 2 diabetes mellitus with foot ulcer (CODE) ([facility] V24, [facility] V28) (Primary Dx); Non-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 layer exposed ([facility] V24, [facility] V28); Diabetic polyneuropathy associated with type 2 diabetes mellitus ([facility] V24, [facility] V28) from Last [...] Date Comments Coronary artery disease invo lving kashia coronary artery with other forms of angina pectoris 10/07/2015 DX:Coronary artery disease involving kashia coronary artery with other forms of angina pectoris; COMMENT: stentsx2, no details, one in 2001, another 2004 BPH (benign prostatic hyperplasia) 10/07/2015 DX:BPH (benign prostatic hyperplasia) Hypercholesteremia 10/07/2015 DX:Hyperchole steremia Erectile dysfunction 10/17/2015 DX:Erectile dysfunction HTN (hypertension) 10/20/2015 DX:HTN (hyper tension) Onychomycosis 10/20/2015 DX:Onychomycosis Background diabetic retinopa thy ([facility] V24, [facility] V28) 10/20/2015 DX:Background diabetic reti nopathy (HCC) DM (diabetes mellitus), type 2 with ophthalmic complications ([facility] V24, [facility] V28) 10/20/2015 DX:DM (diabetes mellitus), t ype 2 with ophthalmic complications (HCC) [place] (myocardial infarction) 10/07/2015 D X:[place] (myocardial infarction); COMMENT: stentsx2, no details, one in 2001, another 2004 Diverticulosis 10/20/2015 DX:Diverticulosi s; COMMENT: CN 2010 Depressive disorder 10/20/2015 DX:Depressiv e disorder GERD (gastroesophageal reflux disease) 10/20/2015 DX:GERD (gastroesophageal reflux disease) History of colon polyps 10/20/2015 DX:Histo ry of colon polyps; COMMENT: Type not specified in transfer notes Type 2 diabetes mellitus wit h vascular disease ([facility] V24, [facility] V28) 10/07/2015 DX:Type 2 diabetes mellitus with vascular disease (HCC) Diabetic neuropathy ([facility] V24, [facility] V28) 10/20/2015 DX:Diabetic neuropathy (HCC) Type 2 diabetes mellitus wit h neurological manifestations ([facility] V24, [facility] V28) 10/20/2015 DX:Type 2 diabetes mellitus with neurological manifestations (HCC) Type 2 diabetes mellitus wit h renal manifestations ([facility] V24, [facility] V28) 10/07/2015 DX:Type 2 diabetes mellitus with renal manifestations ([facility]) Microalbuminuria 04/08/2019 DX:Microalbumin uria CKD (chronic kidney disease) stage 3, GFR 30-59 ml/min ([facility] V24, [facility] V28) 04/08/2019 DX:CKD (chronic kidney disea se) stage 3, GFR 30-59 ml/min ([facility]) Family History Medical History Relation Name Comments Diabetes Father Heart attack Mother at age 63 Heart attack Sister 1 at age 63 with heart condition, ?not [place] Diabetes Sister 2 Relation Name Status Comments [...] EST Inhaled Oxygen Concentration - - Weight 111 kg (245 lb) 03/03/2025 8:21 AM EDT Height 172.7 cm (5' 8 ) 03/03/2025 8:21 AM EDT Body Mass Index 37.25 03/03/2025 8:21 AM EDT Plan of Treatment Upcoming Encounters Date Type Department Care Team (Late st Contact Info) Description 08/03/2025 1:15 PM EST Clinical Support [facility] [address] [place] [phone] 08/10/2025 10:00 AM EST Clinical Support [facility] [address] [place] [phone] 08/17/2025 1:15 PM EST Clinical Support [facility] [address] [place] [phone] 08/23/2025 1:30 PM EST Ancillary Procedure [facility] [address] [place] [phone] 08/24/2025 1:15 PM EST Clinical Support [facility] [address] [place] [phone] 08/31/2025 9:15 AM EST Clinical Support [facility] [address] [place] [phone] 09/07/2025 1:30 PM EST Clinical Support [facility] [address] [place] [phone] 09/14/2025 1:45 PM EST Clinical Support [facility] [address] [place] [phone] Health Maintenance Due Date Last Done Comments [...] 2025 09/05/2022, 07/11/2021, 12/17/2020, Additional history exists Falls Risk Assessment 03/03/2026 03/03/2025 Diabetes: Annual GFR (Glomerular Filtration Rate) 06/02/2026 06/02/2025 Hypertension/CHF/CAD Annual BMP Blood Test 06/02/2026 06/02/2025 DTaP,Tdap,and Td Vaccines (3 - Td or Tdap) 07/05/2032 07/05/2022, 03/02/2011, 03/02/2011 Zoster Vaccines Completed 05/15/2018, 12/17, 06/08/2013 Pneumococcal Vaccine: 50+ Years Completed 05/11/2021, 02/03/2019, 05/08/2010, Additional history exists Depression Screening Completed 03/03/2025 Influenza Vaccine Completed 06/29/2025, , 06/25/2023, Additional history exists HIB Vaccines Aged Out [...] Care Plan Impaired Tissue On track( 025 2:28 PM EST) Mireille Dan RN Wound [...] ulceration/compr omised skin integrity. Mireille Dan RN Procedures Procedure Name Priority Date/Time Associated Diagnosis Comments DEBRIDEMENT Routine 07/27/2025 2:00 PM EST Type 2 diabetes mellitus with foot ulcer (CODE) ([facility] V24, [facility] V28) Non-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 layer exposed ([facility] V24, [facility] V28) Diabetic polyneuropathy associated with type 2 diabetes mellitus (CMS/HCC V24, CMS/HCC V28) Other chronic osteomyelitis of right foot (CMS/HCC V24, CMS/HCC V28) DEBRIDEMENT Routine 07/20/2025 2:30 PM EST Type 2 diabetes mellitus with foot ulcer (CODE) ([facility] V24, [facility] V28) Non-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 layer exposed (CMS/HCC V24, CMS/HCC V28) Diabetic polyneuropathy associated with type 2 diabetes mellitus (CMS/HCC V24, CMS/HCC V28) Other chronic osteomyelitis of right foot (CMS/HCC V24, CMS/HCC V28) DEBRIDEMENT Routine 07/13/2025 2:45 PM EDT Type 2 diabetes mellitus with foot ulcer (CODE) (CMS/HCC V24, CMS/HCC V28) Non-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 layer exposed (CMS/HCC V24, CMS/HCC V28) Diabetic polyneuropathy associated with type 2 diabetes mellitus (CMS/HCC V24, CMS/HCC V28) Other chronic osteomyelitis of right foot (CMS/HCC V24, CMS/HCC V28) CELLULAR TISSUE BASED PRODUCT Routine 07/08/2025 4:00 PM EDT Type 2 diabetes mellitus with foot ulcer (CODE) (CMS/HCC V24, CMS/HCC V28) Non-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 layer exposed (CMS/HCC V24, CMS/HCC V28) Diabetic polyneuropathy associated with type 2 diabetes mellitus (CMS/HCC V24, CMS/HCC V28) Other chronic osteomyelitis of right foot (CMS/HCC V24, CMS/HCC V28) DEBRIDEMENT Routine 07/08/2025 3:15 PM EDT Type 2 diabetes mellitus with foot ulcer (CODE) (CMS/HCC V24, CMS/HCC V28) Non-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 layer exposed (CMS/HCC V24, CMS/HCC V28) Diabetic polyneuropathy associated with type 2 diabetes mellitus (CMS/HCC V24, CMS/HCC V28) Other chronic osteomyelitis of right foot (CMS/HCC V24, CMS/HCC V28) CELLULAR TISSUE BASED PRODUCT Routine 07/01/2025 4:01 PM EDT Type 2 diabetes mellitus with foot ulcer (CODE) (CMS/HCC V24, CMS/HCC V28) Non-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 layer exposed (CMS/HCC V24, CMS/HCC V28) Diabetic polyneuropathy associated with type 2 diabetes mellitus (CMS/HCC V24, CMS/HCC V28) Other chronic osteomyelitis of right foot (CMS/HCC V24, CMS/HCC V28) DEBRIDEMENT Routine 07/01/2025 3:15 PM EDT Type 2 diabetes mellitus with foot ulcer (CODE) (CMS/HCC V24, CMS/HCC V28) Non-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 layer exposed (CMS/HCC V24, CMS/HCC V28) Diabetic polyneuropathy associated with type 2 diabetes mellitus (CMS/HCC V24, CMS/HCC V28) Other chronic osteomyelitis of right foot (CMS/HCC V24, CMS/HCC V28) DEBRIDEMENT Routine 06/24/2025 3:30 PM EDT Type 2 diabetes mellitus with foot ulcer (CODE) (CMS/HCC V24, CMS/HCC V28) Non-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 layer exposed (CMS/HCC V24, CMS/HCC V28) DEBRIDEMENT Routine 06/17/2025 3:15 PM EDT Type 2 diabetes mellitus with foot ulcer (CODE) (CMS/HCC V24, CMS/HCC V28) Non-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 layer exposed (CMS/HCC V24, CMS/HCC V28) DEBRIDEMENT Routine 06/09/2025 2:45 [...] [facility], [facility] V28) Diabetic polyneuropathy associated with type 2 diabetes mellitus (CMS/HCC V24, CMS/HCC V28) DEBRIDEMENT Routine 05/05/2025 12:30 PM EDT Type 2 diabetes mellitus with foot ulcer (CODE) ([facility] V24, CMS/[facility] V28) Non-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 layer exposed (CMS/[facility] V24, CMS/[facility] V28) Diabetic polyneuropathy associated with type 2 diabetes mellitus (CMS/[facility] V24, CMS/[facility] V28) from Last 3 Months Results * Debridement Diabetic Ulcer Right Toe D1, Great (07/20/2025 2:30 PM EST) Sergio Landin MD - 07/20/2025 2:30 PM EST Sergio Rodriguez MD 07/20/2025 3:25 PM Debridement Diabetic Ulcer Right Toe D1, [...] Post Debridement: Fat layer exposed Time taken: 07/20/2025 2:48 PM Length (cm): 1.6 Width (cm): 1 Depth (cm): 0.1 Area (cm^2): 1.26 Time taken: 07/20/2025 2:49 PM Length (cm): 1.6 Width (cm): 1.2 Depth (cm): 0.1 Percent Debrided (%): 100 Surface Area (cm^2): 1.92 Area Debrided (cm^2): 1.92 Volume (cm^3): 0.19 Tissue and other material debrided: dermis, epidermis and subcutaneous tissue Devitalized tissue debrided: slough Instrument: Curette Amount of bleeding: small Hemostasis obtained with: Pressure Procedural pain: 0 Post-procedural pain: 0 Response to treatment: Procedure was tolerated well us Sergio Rodriguez MD IN CLINIC/BEDSIDE ORDERAB LES Final Result * Debridement Diabetic Ulcer Right Toe D1, Great (07/13/2025 2:45 PM EDT) Sergio Landin MD - 07/13/2025 2:45 PM EDT Sergio Rodriguez MD 07/16/2025 3:25 PM Debridement Diabetic Ulcer Right Toe D1, [...] Post Debridement: Fat layer exposed Time taken: 07/13/2025 2:48 PM Length (cm): 1.8 Width (cm): 0.9 Depth (cm): 0.1 Area (cm^2): 1.27 Time taken: 07/13/2025 2:49 PM Length (cm): 1.8 Width (cm): 0.9 Depth (cm): 0.1 Percent Debrided (%): 75 Surface Area (cm^2): 1.62 Area Debrided (cm^2): 1.22 Volume (cm^3): 0.16 Tissue and other material debrided: dermis, epidermis and subcutaneous tissue Devitalized tissue debrided: biofilm and callus Instrument: Curette Amount of bleeding: none Hemostasis obtained with: Not applicable Procedural pain: 0 Post-procedural pain: 0 Response to treatment: Procedure was tolerated well Sly DOLL IN CLINIC/BEDSIDE ORDERABLE S Final Result * Cellular Tissue Based Product (07/08/2025 4:00 PM EDT) Sergio Landin MD - 07/08/2025 4:00 PM EDT Sergio Rodriguez MD 07/09/2025 12:52 PM Cellular Tissue Based Product Date/Time: 07/08/2025 4:00 PM Performed by: LAVON Moe Authorized by: LAVON Moe Consent: Consent obtained: Verbal Consent given by: Patient Risks discussed: Bleeding [place] protocol: Procedure explained and questions answered to patient or proxy's satisfaction: yes Patient identity confirmed: Verbally with patient Anesthesia (see MAR for exact dosages): Anesthesia method: None Procedure details: Product applied: Epicord Product lot #: [id number] Product expiration: 09/16/2029 Saline lot #: [id number] Saline expiration: 12/16/2026 Amount used (cm^2): 2 Amount wasted (cm^2): 0 Secured: Yes Secured with: Mepitel Dressing: Dressing applied: Steri-Strips Post-procedure details: Patient tolerance of procedure: Tolerated well, no immediate complications Sly DOLL IN CLINIC/BEDSIDE ORDERABLE S Final Result * Debridement Diabetic Ulcer Right Toe D1, Great (07/08/2025 3:15 PM EDT) Sergio Landin MD - 07/08/2025 3:15 PM EDT Sergio Rodriguez MD 07/09/2025 12:52 PM Debridement Diabetic Ulcer Right Toe D1, [...] Post Debridement: Fat layer exposed Time taken: 07/08/2025 3:50 PM Length (cm): 1.8 Width (cm): 0.9 Depth (cm): 0.1 Area (cm^2): 1.27 Time taken: 07/08/2025 3:51 PM Length (cm): 1.8 Width (cm): 0.9 Depth (cm): 0.1 Percent Debrided (%): 100 Surface Area (cm^2): 1.62 Area Debrided (cm^2): 1.62 Volume (cm^3): 0.16 Tissue and other material debrided: dermis, epidermis and subcutaneous tissue Devitalized tissue debrided: biofilm, callus and slough Instrument: Curette and forceps Amount of bleeding: none Hemostasis obtained with: Not applicable Procedural pain: 0 Post-procedural pain: 0 Response to treatment: Procedure was tolerated well Sly DOLL IN CLINIC/BEDSIDE ORDERABLE S Final Result * Cellular Tissue Based Product Diabetic Ulcer Right Toe D1, Great (07/01/2025 4:01 PM EDT) Sergio Landin MD - 07/01/2025 4:01 PM EDT Sergio Rodriguez MD 07/02/2025 3:58 PM Cellular Tissue Based Product Diabetic Ulcer Right Toe D1, Great Date/Time: 07/01/2025 4:01 PM Performed by: LAVON Moe Authorized by: LAVON Moe Associated wounds: Wound Diabetic Ulcer 03/03/25 Toe D1, Great Right Consent: Consent obtained: Verbal Consent given by: Patient Risks discussed: Bleeding [place]inn[place] protocol: Procedure explained and questions answered to patient or proxy's satisfaction: yes Patient identity confirmed: Verbally with patient Anesthesia (see MAR for exact dosages): Anesthesia method: None Procedure details: Product applied: EpicDigitalVision Product lot #: [id number] Product expiration: 09/16/2029 Amount used (cm^2): 2 Amount wasted (cm^2): 0 Secured: Yes Secured with: Mepitel Dressing: Dressing applied: Steri-Strips Post-procedure details: Patient tolerance of procedure: Tolerated well, no immediate complications Sly DOLL IN CLINIC/BEDSIDE ORDERABLE S Final Result * Debridement Diabetic Ulcer Right Toe D1, Great (07/01/2025 3:15 PM EDT) Sergio Landin MD - 07/01/2025 3:15 PM EDT Sergio Rodriguez MD 07/02/2025 3:58 PM Debridement Diabetic Ulcer Right Toe D1, [...] Post Debridement: Fat layer exposed Time taken: 07/01/2025 3:31 PM Length (cm): 1.8 Width (cm): 0.9 Depth (cm): 0.1 Area (cm^2): 1.27 Time taken: 07/01/2025 3:32 PM Length (cm): 1.8 Width (cm): 0.9 Depth (cm): 0.1 Percent Debrided (%): 100 Surface Area (cm^2): 1.62 Area Debrided (cm^2): 1.62 Volume (cm^3): 0.16 Tissue and other material debrided: dermis, epidermis [...] LAB HEMETOLOGY METHOD 06/02/2025 2:20 PM EDT [facility] RBC 4.10(L) 4.50 - 5.50 M/mcL LAB HEMETOLOGY METHOD 06/02/2025 2:20 PM EDT [facility] Hemoglobin 12.1(L) 13.5 - 17.5 g/dL LAB HEMETOLOGY METHOD 06/02/2025 2:20 PM EDT [facility] Hematocrit 36.8(L) 42.0 - 54.0 % LAB HEMETOLOGY METHOD 06/02/2025 2:20 PM EDT [facility] MCV 88.9 79.0 - 98.0 FL LAB HEMETOLOGY METHOD 06/02/2025 2:20 PM EDT [facility] MCH 29.2 27.0 - 32.0 pcg LAB HEMETOLOGY METHOD 06/02/2025 2:20 PM EDT [facility] MCHC 32.9 32.0 - 37.0 g/dL LAB HEMETOLOGY METHOD 06/02/2025 2:20 PM EDT [facility] RDW 13.6 11.0 - 15.0 % LAB HEMETOLOGY METHOD 06/02/2025 2:20 PM EDT [facility] Platelets 229 130 - 400 K/mcL LAB HEMETOLOGY METHOD 06/02/2025 2:20 PM EDT [facility] MPV 11.4(H) 7.0 - 11.0 FL LAB HEMETOLOGY METHOD 06/02/2025 2:20 PM EDT [facility] NRBC 0.0 <1.0 % LAB HEMETOLOGY METHOD 06/02/2025 2:20 PM EDT [facility] NRBC Absolute 0.00 <0.10 K/mcL LAB HEMETOLOGY METHOD 06/02/2025 2:20 PM EDT [facility] Neutrophils Relative 60.7 % LAB HEMETOLOGY METHOD 06/02/2025 2:20 PM EDT [facility] Lymphocytes Relative 22.4 % LAB HEMETOLOGY METHOD 06/02/2025 2:20 PM EDT [facility] Monocytes Relative 10.9 % LAB HEMETOLOGY METHOD 06/02/2025 2:20 PM EDT [facility] Eosinophils Relative 5.1 % LAB HEMETOLOGY METHOD 06/02/2025 2:20 PM EDT [facility] Basophils Relative 0.4 % LAB HEMETOLOGY METHOD 06/02/2025 2:20 PM EDT [facility] Immature Granulocytes Relative 0.5 % LAB HEMETOLOGY METHOD 06/02/2025 2:20 PM EDT [facility] Neutrophils Absolute 4.61 1.50 - 7.00 K/mcL LAB HEMETOLOGY METHOD 06/02/2025 2:20 PM EDT [facility] Lymphocytes Absolute 1.70 1.00 - 5.00 K/mcL LAB HEMETOLOGY METHOD 06/02/2025 2:20 PM EDT [facility] Monocytes Absolute 0.83 0.20 - 1.00 K/mcL LAB HEMETOLOGY METHOD 06/02/2025 2:20 PM EDT [facility] Eosinophils Absolute 0.39 0.00 - 0.50 K/mcL LAB HEMETOLOGY METHOD 06/02/2025 2:20 PM EDT [facility] Basophils Absolute 0.03 0.00 - 0.20 K/mcL LAB HEMETOLOGY METHOD 06/02/2025 2:20 PM EDT [facility] Immature Granulocytes Absolute 0.04(H) 0.00 - 0.03 K/mcL LAB HEMETOLOGY METHOD 06/02/2025 2:20 PM EDT [facility] Blood Venous blood specimen / Unknown Venipuncture / Unknown 06/02/2025 12:23 PM EDT 06/02/2025 2:07 PM EDT us Sly DOLL LAB BLOOD ORDERABLES Final Result [facility] [address] [place] [address], * Sedimentation rate (06/02/2025 12:23 PM EDT) [facility] Sed Rate 16 0 - 20 mm/hr LAB HEMETOLOGY METHOD 06/02/2025 2:25 PM EDT [facility] Blood Venous blood specimen / Unknown Venipuncture / Unknown 06/02/2025 12:23 PM EDT 06/02/2025 2:07 PM EDT Sly DOLL LAB BLOOD ORDERABLES Final Result Performing Organization Address [facility]/ZIP Co de Phone Number [facility] [address] [place] [address], [place] [phone] * (ABNORMAL) C-reactive protein (06/02/2025 12:23 PM EDT) [facility] C-Reactive Protein 0.84(H) <=0.50 mg/dL LAB CHEMISTRY METHOD 06/02/2025 3:49 PM EDT [facility] Blood Venous blood specimen / Unknown Venipuncture / Unknown 06/02/2025 12:23 PM EDT 06/02/2025 2:07 PM EDT Sly DOLL LAB BLOOD ORDERABLES Final Result Performing Organization Address [facility]/ZIP Co de Phone Number [facility] [address] [place] [address], [place] [phone] * (ABNORMAL) Basic metabolic panel (06/02/2025 12:23 PM EDT) [facility] Sodium 136 133 - 145 mmol/L LAB CHEMISTRY METHOD 06/02/2025 3:48 PM EDT [facility] Potassium 4.2 3.5 - 5.5 mmol/L LAB CHEMISTRY METHOD 06/02/2025 3:48 PM EDT [facility] Chloride 104 96 - 110 mmol/L LAB CHEMISTRY METHOD 06/02/2025 3:48 PM EDT [facility] CO2 27 21 - 32 mmol/L LAB CHEMISTRY METHOD 06/02/2025 3:48 PM EDT [facility] Anion Gap 5 3 - 11 LAB CHEMISTRY METHOD 06/02/2025 3:48 PM EDT [facility] Glucose 174(H) 70 - 100 mg/dL LAB CHEMISTRY METHOD 06/02/2025 3:48 PM EDT [facility] BUN 24 5 - 25 mg/dL LAB CHEMISTRY METHOD 06/02/2025 3:48 PM EDT [facility] Creatinine 1.33(H) 0.70 - 1.30 mg/dL LAB CHEMISTRY METHOD 06/02/2025 3:48 PM EDT [facility] eGFR 57(L) >=60 mL/min/1. 73m2 LAB CHEMISTRY METHOD 06/02/2025 3:48 PM EDT [facility] Comment:Calculation based on the Chronic Kidney Disease Epidemiology Collaboration (CKD-EPI) equation refit without adjustment for race. BUN/Creatinine Ratio 18.0 LAB CHEMISTRY METHOD 06/02/2025 3:48 PM T [facility] Calcium 8.8 8.5 - 10.5 mg/dL LAB CHEMISTRY METHOD 06/02/2025 3:48 PM T [facility] Blood Venous blood specimen / Unknown Venipuncture / Unknown 06/02/2025 12:23 PM EDT 06/02/2025 2:07 PM EDT us Sly DOLL LAB BLOOD ORDERABLES Final Result [facility] [address] [place] [address], * (ABNORMAL) Culture wound with gram stain (06/02/2025 12:05 PM EDT) Culture, Wound Methicillin-Resista nt Staphylococcus aureus(A) ARIANA 06/05/2025 10:52 AM EDT [facility] Comment: The organism value for this result has been updated. These results have been appended to the previously preliminary verified report. Edited result: Previously reported as Staphylococcus aureus on 06/04/2025 at 1244 EDT. Culture, Wound Morganella morganii ssp morganii(A) ARIANA 06/05/2025 10:52 AM EDT [facility] Comment: The organism value for this result has been updated. These results have been appended to the previously preliminary verified report. This is an edited result. Previous organism was Gram negative bacilli on 06/04/2025 at 1244 EDT. Culture, Wound Streptococcus beta-hemolytic Group G(A) ARIANA 06/05/2025 10:52 AM EDT [facility] Comment: Susceptibility testing [...] No organisms noted 06/05/2025 10:52 AM EDT [facility] Swab Structure of [...] LAB MICROBIOLOGY - GENERAL ORDERABLES Final Result [facility] [address] [place] [address], * Debridement Diabetic Ulcer Right Toe D1, [...] Signed Date: 05/31/2025 03:29 ET Workstation ID: [id number] Transcribed By: Self Edit Transcribed Date: 05/31/2025 [...] enhancementafter intravenous contrast administration. Nonspecific area of L0ejtqdvcgtae, T2 fat sat hyperintense signal along the [...] Signed Date: 05/31/2025 03:29 ET Workstation ID: [id number] Transcribed By: Self Edit Transcribed Date: 05/31/2025 03:21 ET us Sly DOLL IMG MRI PROCEDURES Final Re sult * XR Foot 3+ Views Right (05/19/2025 1:27 PM EDT) Anatomical Region Laterality Modality Lower Extremities, Foot Right Radiogra phic Imaging 05/20/2025 7:57 AM EDT Impressions 05/20/2025 7:59 AM EDT No fracture or dislocation. Thinning of the cortex of the medial aspect of the first distal phalanx which could represent early osteomyelitis. More definitive evaluation with radionuclide bone scan should be considered if clinically warranted. Code 96723 -------- FINAL REPORT -------- Dictated By: Eddie Jose Dictated Date: 05/20/2025 07:57 ET Assigned Physician: Eddie Jose Reviewed and Electronically Signed By: Eddie Jose Signed Date: 05/20/2025 07:59 ET Workstation ID: [id number] Transcribed By: Self Edit Transcribed Date: 05/20/2025 [...] scan should be considered ifclinically warranted. Code 91671 -------- FINAL REPORT -------- Dictated By: Eddie Jose Dictated Date: 05/20/2025 07:57 ET Assigned Physician: Eddie Jose Reviewed and Electronically Signed By: Eddie Jose Signed Date: 05/20/2025 07:59 ET Workstation ID: [id number] Transcribed By: Self Edit Transcribed Date: 05/20/2025 [...] treatment: Procedure was tolerated well us Sly Welch PA IN CLINIC/BEDSIDE ORDERABLE S Final Result * [...] treatment: Procedure was tolerated well us Sly Welch PA IN CLINIC/BEDSIDE ORDERABLE S Final Result from [...] Documents on File Type Date Recorded Patient Skiver Counter Expl anation Health Care Decision (hx) 02/03/2021 [...] (hx) 01/17/2021 AD WATKINS DIRECTIVE Care Teams Travel Accommodation Inspector Relationship Specialty Start Date End Date Pollo Thurston MD [address] [place] [phone] PCP - General Internal Medicine 06/02/25
--- OUTSIDE RECORDS SUMMARY | 2025-07-28 13:52 | XMS_ITS | Encounter Summary ---
Author Organization Only [employer] Address [address] [facility] [address] [place] [address] Care Team Providers Care Cage/Vault Supervisor Name Role Phone Unavailable Primary Care Provider Unavailabl e Encounter Details Date Type Department Care Team (Latest Contact Info) Description 08/10/[address] [facility] CONVERSIONS Dental, Provider, DDS Social History [...] Care Team (Late st Contact Info) Description 08/04/2025 1:00 PM EST Office Visit [facility] [address] [place] [address] Anoop David, JASSONS [address] [place] [address] 08/17/2025 10:30 AM EST Office Visit [facility] [address] [place] [address] Anoop David DDS [address] [place] [address] 01/25/2026 10:15 AM EDT Office Visit [facility] [address] [place] [address] Lewis Maldonado documented as of this encounter Visit Diagnoses Not on filedocumented in this encounter
--- OUTSIDE RECORDS SUMMARY | 2025-07-28 13:52 | XMS_ITS | Clinical Summary ---
Author Organization [employer] Address [address] [facility] [address] [place] [address] Care Team Providers Care Vessel Welder Name Role Phone Unavailable Primary Care Provider Unavailabl e Allergies Active Allergy Reactions Criticality Noted Date Comments Black Pomfret Flavoring Agent (Non-Screening) 04/05/2025 Medications gabapentin (Neurontin) [...] Additional Information Patient not taking.Reported on 05/12/2025 aspirin 81 MG EC tablet Take 81 mg by mouth Once per day. 7 Active HYDROcodone-nadya taminophen (Vicodin) 5-300 MG tablet Take 1 tablet by mouth if needed at bedtime for pain. 5 Active Active Problems Problem Noted Date Diagnosed [...] Dyspnea on exertion 09/27/2021 Cerebrovascular accident (CVA) ([facility]) 021 Overview (04/23/2025): Last Assessment & Plan: [...] kidney disease) stage 3, GFR 30-59 ml/min ([facility]) 04/08/2019 Microalbuminuria 04/08/2019 Chronic back pain 11/03/2018 Coronary artery disease invo lving [place] coronary artery of [place] heart without angina pectoris 10/01/2017 Overview (04/23/2025): Last Assessment & Plan: No ischemic or heart failure symptoms. 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 Encounters Date Type Department Care Team Description 07/27/2025 11:00 AM EST Office Visit [facility] [address] [place] [address] Lewis Maldonado Dental calculus (Primary Dx) 05/12/2025 9:00 AM EDT Office Visit [facility] [address] [place] [address] Anoop David DDS History of tooth extraction, unspecified edentulism class (Primary Dx) 05/11/2025 Orders Only [facility] [address] [place] [address] Eliecer Romero DMD from Last 3 Months Social History Tobacco [...] Description 08/04/2025 1:00 PM EST Office Visit [facility] [address] [place] [address] Anoop David DD [address] [place] [address] 08/17/2025 10:30 AM EST Office Visit [facility] [address] [place] [address] Anoop David DDS [address] [place] [address] 01/25/2026 10:15 AM EDT Office Visit [facility] [address] [place] [address] Lewis Maldonado Health Maintenance Due Date Last [...] Risk 60-74 years 1-dose series) 2012 Dental Oral Exam 06/27/2018 12/25/2017, , 11/08/2014, Additional history exists COVID-19 Vaccine ( season) 2025 09/05/2022, 07/11/2021, 12/17/2020, Additional history exists Eye Exam 11/05/2025 11/05/2024, 06/25/2024 Dental Prophylaxis 01/25/2026 07/27/2025, 1 10/10/2018, 02/05/2019, Additional history exists Tobacco Screening 05/12/2026 05/12/2025 Dental X-Ray: Bitewings 07/28/2026 07/27/20, 04/05/2025, 01/08/2025, Additional history exists Dental X-Ray: Full Mouth 07/28/2028 07/27/2025, 05/18 DTaP/Tdap/Td Vaccines (4 - Td or Tdap) 07/05/2032 07/05/2022, 03/02/2011, 03/02/2011 Zoster Vaccines Completed 05/15/2018, 12/17, 06/08/2013 Pneumococcal Vaccine: 50+ Years Completed 05/11/2021, 02/03/2019, 05/08/2010, Additional history exists Influenza Vaccine Completed 06/29/2025, , 06/25/2023, Additional [...] TREATMENT PLANNING Routine 07/27/2025 11:00 AM EST ORAL HYGIENE INSTRUCTIONS Routine 2024 11:00 AM EST PROPHYLAXIS - ADULT Routine 07/27/2025 1 1:00 AM EST INTRAORAL - COMPLETE SERIES OF RADIOGRAPHIC IMAGES Routine 07/27/2025 11:00 AM EST 28 O COMPOSITE FILLING Routine 12:00 AM EST CASE PRESENTATION, DETAILED AND EXTENSIVE TREATMENT PLANNING Routine 05/12/2025 9:00 AM EDT 14 EXTRACTION, ERUPTED TOOTH OR EXPOSED ROOT (ELEVATION/FORCEPS REMOVAL) Routine 05/12/2025 9:00 AM EDT 12 EXTRACTION, ERUPTED TOOTH OR EXPOSED ROOT (ELEVATION/FORCEPS REMOVAL) Routine 05/12/2025 9:00 AM EDT 15 EXTRACTION, ERUPTED TOOTH OR EXPOSED ROOT (ELEVATION/FORCEPS REMOVAL) Routine 05/12/2025 9:00 AM EDT PERIODIC ORAL EVALUATION - ESTABLISHED PATIENT Routine 12/25/2017 12:00 AM EDT from Last 3 Months or Most Recently Relevant to Health Maintenance Insurance [place] [employer] [place]
--- OUTSIDE RECORDS SUMMARY | 2025-07-28 13:53 | XMS_ITS | Patient Health Record ---
Author Organization [facility] Address [address] [facility] [place] [address] Care Team Providers Care Short Filler Bunch Machine Operator Name Role Phone Pollo Thurston Primary Care Provider Andrzej Ramirez Unavailable [phone] Allergies No Known Allergies Results Component Value [...] Problem Acquired hammer toe of right foot (0288631767120870 ) Other hammer toe(s) (acquired), right foot (M20.41) Active confirmed Response to treatment, Improvemen t Problem Acquired hammer toe of left foot (0118146923950535 ) Other hammer toe(s) (acquired), left foot (M20.42) Active confirmed Response to treatment, Improvemen t Problem Polyneuropathy due to diabetes mellitus type I (868476218) Type 1 diabetes mellitus with diabetic polyneuropathy (E10.42) Active confirmed Problem Skin ulcer of toe of right foot with fat layer exposed (L97.512) Active confirmed Vital Signs Blood pressure diastolic 67 mm Hg 05/18/2025 Height 5ft8in in 05/18/2025 Blood pressure systolic 129 mm Hg 05/18/2025 Weight 240 lbs 05/18/2025 BMI 36.49 kg/m2 05/18/2025 Procedures Procedure Date Ordered Date Performed Result Body Sit e 02747-XNDFFVQ NAIL, 1-5 07/28/2024 N/A 28746-AZBG SKIN LESIONS, OVER 4 07/28/2024 N/A Q2703-ZDYBMTRS DYSTROPHIC NAILS ANY # 07/28/2024 N/A 43292-UIDKOEM NAIL, 1-5 11/03/2024 N/A 49657-EPFY SKIN LESIONS, OVER 4 11/03/2024 N/A Q4574-KNKGOAFB DYSTROPHIC NAILS ANY # 11/03/2024 N/A 23586-EEABLFL NAIL, 1-5 02/09/2025 N/A 77871-NTCO SKIN LESIONS, OVER 4 02/09/2025 N/A L1015-XOAXHTDK DYSTROPHIC NAILS ANY # 02/09/2025 N/A 79248-OTIWSJQ NAIL, 1-5 05/18/2025 N/A 92022-PSXE SKIN LESIONS, OVER 4 05/18/2025 N/A V1842-LZXTNXLH DYSTROPHIC NAILS ANY # 05/18/2025 N/A Encounters Encounter Location Date Provider Diagnosis [address] [address] 07/28/2024 Andrzejjuan miguel Rodier Type 1 diabetes mellitus with diabetic polyneuropathy E10.42 ; Tinea unguium B35.1 ; Other hammer toe(s) (acquired), right foot M20.41 and Other hammer toe(s) (acquired), left foot M20.[address] [address] 11/03/2024 Andrzej Raman Type 1 diabetes mellitus with diabetic polyneuropathy E10.42 ; Tinea unguium B35.1 ; Other hammer toe(s) (acquired), right foot M20.41 and Other hammer toe(s) (acquired), left foot M20.[address] [address] 02/09/2025 Andrzej Raman Type 1 diabetes mellitus with diabetic polyneuropathy E10.42 ; Tinea unguium B35.1 and Xerosis of skin L85.[address] [address] 05/18/2025 Andrzej Raman Type 1 diabetes mellitus [...] X ray : Foot, left 3V 12/05/2022 24753-ILGDFMU NAIL, 1-5 11/03/2024 50924-YNFGLKH NAIL, 1-5 02/09/2025 68046-TAKXRPF NAIL, 1-5 07/28/2024 21701-AQFDBEB NAIL, 1-5 05/18/2025 78506-DEPCPVS SKIN/TISSUE 12/05/2022 90528-SBWNEOJ SKIN/TISSUE 01/09/2023 88576-POXR SKIN LESIONS, OVER 4 02/08/20 23 55569-AHAZ SKIN LESIONS, OVER 4 12/06/19 23 20189-IEKM SKIN LESIONS, OVER 4 07/28/20 24 31071-CHEC SKIN LESIONS, OVER 4 05/18/20 12268-BPGB SKIN LESIONS, OVER 4 11/03/19 88479-RLYS SKIN LESIONS, OVER 4 02/10/20 Y3764-MDCYOQOE DYSTROPHIC NAILS ANY # K2288-EZTZXJBP DYSTROPHIC NAILS ANY # N7529-BJEKZABU DYSTROPHIC NAILS ANY # F3783-DWEFEMFN DYSTROPHIC NAILS ANY # H8481-NASGRBLE DYSTROPHIC NAILS ANY # G2819-CWKXTWIW DYSTROPHIC NAILS ANY # Next Appt Details Provider Name:Andrzej Camargo , 2025 10:00:00 AM, [address] [place], [address], Insurance Providers Payer Name Payer Address Payer Phone Subscriber Number Group Number Insured Name Patient Relationship to Insured Coverage Start Date Coverage End Date [employer] P[employer] [address] [phone] [id number] Kirby Christianson Self - patient is the insured Medical (General) History Medical History History ICD Code Back,Hip,and Knee pain Diabetic type ll Poor circulation Stroke Surgical History Surgery Date(Month/Year) back surgery- Spine L5 03/06 cataract surgery appendectomy right leg infection- [facility] 03/2024 teeth extraction 05/10 Hospitalization History Reason Date(Month/Year)
== END 2025-07-28 11:14 | disposition home or self-care (01) ==
LOC: HO.US 11:13
PROVIDERS: PCP Physician Assistant Medical; Visit Provider Nurse Practitioner Family
DX: M79.661 Pain in right lower leg (principal)
CPT/HCPCS: 93971

== ENCOUNTER → 2025-07-28 11:15 | Outpatient (BNV) | payer MEDICARE, SELFPAY | PROVIDERS: PCP Physician Assistant Medical; Visit Provider Radiology Diagnostic Radiology | DX: M79.661 Pain in right lower leg (principal) | CPT/HCPCS: 93971 ==

== ENCOUNTER 2025-08-10 14:21 | Outpatient (AMB) | payer MEDICARE, SELFPAY ==
--- OUTSIDE RECORDS SUMMARY | 2024-04-27 08:45 | XMS_ITS ---
Author Organization [facility] Address [address] [place] [address] Care Team Providers Care Foundation Assistant Name Role Phone Pollo Thurston Primary Care Provider Andrzej Ramirez Unavailable [phone] Ced Menchaca Unavailable [phone] REASON FOR VISIT Painful thick toenails which are aggrevated by shoes and causes difficulty standing/walking Medications Medication SIG (Take, Route, Frequency, Duration) Notes Start Date End Date Status Extra Depth Diabetic Shoes with 3 Pair Custom heat-molded multi-density innersoles for 1 year Dx: Active Encounters Encounter Location Date Provider Diagnosis [facility] [address] [place] [address] 04/27/2024 Ced Menchaca Type 1 diabetes mellitus [...] Provider Name:Andrzej Camargo , 2025 10:00:00 AM, [address] [place] [address], [phone], Procedure Notes * Category Sub-Category Detail Notes Keratoma Treatment Parring or Cutting o f Benign Hyperkeratotic Lesion(s) 36756 ( >4 Lesions) - The Benign hyperkeratotic [...] as necessary. Patient chooses, no pharmaceutical tx (57414) Nail Reduction Nail Reduction Trimming of dyst rophic nails performed to reduce/remove overall nail length and girth, by manual and electrical means with use of a nail nipper and/or dremel, to more viable healthy nail plate or bed tissue 6-10 (G0127) Progress Notes * Kirby CHRISTIANSONDOB:1950 ( 74 yo M)Acc No.[id number]:04/27/2024 Progress Note Patient: Kirby ALVARENGA Provider: Lamont Hernandez DPM :1950 A ge:73 Y S ex:Male Date:04/27/2024 Address: [address], [address] [facility] Pcp:Pollo Thurston Subjective: * Chief Complaints: * [...] enies. C ardiovascular: Pacemaker d enies. M SOCIAL SCIENCE RESEARCH ASSISTANT d enies. W PW d enies. C [...] as necessary. Patient chooses, no pharmaceutical tx (70375). K eratoma Treatment: Parring or Cutting of [...] SKIN LESIONS, OVER 4, Modifiers: XS , 55596 DEBRIDE NAIL, 1-5, Modifiers: XS , G0127 [...] 0 04/27/2024 Generated for Zachary wells/Concepcion/Jasmeet on: 10/10/2024 06:15 PM EST History and Physical Notes * [...]
--- OUTSIDE RECORDS SUMMARY | 2025-08-04 13:00 | XMS_ITS | Encounter Summary ---
Author Organization [employer] Address [address] [place] [address] Care Team Providers Care Wallet Assembler Name Role Phone Unavailable Primary Care Provider Unavailabl e Reason for Visit * Reason Comments Extraction Encounter Details Date Type Department Care Team (Late st Contact Info) Description 08/04/2025 1:00 PM EST Office Visit [facility] [address] [place] [address] Anoop Duarte DDS [address] [place] [address] Social History Tobacco Use Types Packs/Day Years [...] Sign Reading Time Taken Comments Blood Pressure 150/70 08/04/2025 1:07 PM EST Pulse - - Temperature - - Respiratory Rate - - Oxygen Saturation - - Inhaled Oxygen Concentration - - Weight - - Height - - Body Mass Index - - documented in this encounter Progress Notes * Anoop Duarte DDS - 08/04/2025 1:00 PM EST Dental procedures in this visit [id number] - EXTRACTION, ERUPTED TOOTH OR EXPOSED ROOT (ELEVATION/FORCEPS REMOVAL) 28 (Completed) Service provider: Anoop Duarte DDS Billing provider: Andrea Llanes DMD [id number] - CASE PRESENTATION, DETAILED AND EXTENSIVE TREATMENT PLANNING (Completed) Service provider: Anoop Duarte DDS Billing provider: Andrea Llanes DMD Patient ID: Kirby Christianson is a 74 y.o. male. Time Out: Date: 08/04/2025 Location: [facility] Tooth: #28 Procedure: Extraction Verified the above with patient, trade sales assistant, and provider. Confirmed via patient's chart, intraorally and by radiographs. Business Applications Manager: not applicable Simple Extraction of # 28 done [address] [place] by Dr. Anoop Duarte DDS Risk, benefits, and alternatives discussed with the patient. CONSENT FORM INITIALED & SIGNED BY THE PATIENT AND COUNTERSIGNED BY Dr. Anoop Duarte DDS Medical history: Reviewed in EHR Vitals: Blood pressure (!) 150/70. Allergies: Reviewed in EHR Medications: Reviewed in EHR - Local infiltration with 1 carpule 4% septocaine/articaine 1:100,000 epinephrine - Gingival fibers using periosteal elevator. - Tooth luxated using straight elevator. - Tooth extracted usin Forceps - Curettage done. - Area checked for sharp bony edges / filing of sharp bony edges done. - Irrigation done using Saline. - Gel foam placed - Sutures placed: resorb able gut sutures placed in the area of # 28 - Hemostasis achieved before dismissal. Patient comfortable to walk. - Gauze pack placed. - post op instructions (written + verbal), extra pack of gauze given. Patient was advised to hold Eliquis for 48 hours post op. However patient states that he has held it since the day prior to this procedure and prefers to hold it only until the morning after as he has had 4 strokes and fears the possibility of reoccurrence. 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 Bleeding was controlled and minimal during the procedure. - Rx: Amoxicillin 500 mg, patient is taking hydrocodone for back pain. No further pain medication to be prescribed. Patient advised that if he is still experiencing pain, to please call in to be assisted. Patient satisfied, left in stable condition NV: Restorative Provider: Dr. Anoop Duarte DDS Supervisor [employer]: Nuzhat Larios Supervising Dentist: Dr. Llanes * Andrea Llanes DMD - 08/04/2025 1:00 PM EST I saw and evaluated the patient, participating in the lopez portions of the service. I reviewed the resident???s note. I agree with the resident???s findings and plan. Andrea Llanes DMD documented in this encounter Miscellaneous Notes * Addendum Note - Anoop Duarte DDS - 08/04/2025 1:00 PM ESTAddended by: ANOOP DUARTE on: 08/05/2025 04:10 PM Modules accepted: Orders documented in this encounter Plan of Treatment Upcoming Encounters Date Type Department Care Team (Late st Contact Info) Description 08/17/2025 10:30 AM EST Office Visit [facility] ADULT DENTAL [address] [place] [address] Anoop Duarte DDS [address] [place] [address] 01/25/2026 10:15 AM EDT Office Visit [facility] ADULT DENTAL [address] [place] [address] Lewis Maldonado documented as of this encounter Goals Goal Patient Goal Type Associated Problems Recent Progress Patient-Stated? Author Help patients manage their type 2 diabetes Care Plan Help patients manage their type 2 diabetes No MatsonDex, DDS Weekly blood pressure task Care Plan Weekly blood pressure task No MatsonQuiqueDex, DDS Help patients manage their type 2 diabetes Care Plan Help patients manage their type 2 diabetes No Matson Dex, DDS Patient has diabetic eye disease Care Plan Patient has diabetic eye disease No Matson Dex, DDS Help patients manage their type 2 diabetes Care Plan Help patients manage their type 2 diabetes No Matson Dex, DDS Patient has chronic kidney disease Care Plan Patient has chronic kidney disease No MatsonQuiqueDex, DDS Weekly blood pressure task Care Plan Weekly blood pressure task No Robert Davis Weekly blood pressure task Care Plan Weekly blood pressure task No Ryan Robert Patient has diabetic eye disease Care Plan Patient has diabetic eye disease No Ryan Robert Patient has diabetic eye disease Care Plan Patient has diabetic eye disease No Ryan Robert Patient has chronic kidney disease Care Plan Patient has chronic kidney disease No Leela Davisricio Patient has chronic kidney disease Care Plan Patient has chronic kidney disease No Robert Davis Weekly blood pressure task Care Plan Weekly blood pressure task No Nuzhat Larios Weekly blood pressure task Care Plan Weekly blood pressure task No Nuzhat Larios Weekly blood pressure task Care Plan Weekly blood pressure task No Nuzhat Larios Patient has diabetic eye disease Care Plan Patient has diabetic eye disease No Nuzhat Larios Patient has diabetic eye disease Care Plan Patient has diabetic eye disease No Nuzhat Larios Patient has diabetic eye disease Care Plan Patient has diabetic eye disease No Nuzhat Larios Patient has chronic kidney disease Care Plan Patient has chronic kidney disease No Nuzhat Larios Patient has chronic kidney disease Care Plan Patient has chronic kidney disease No Nuzhat Larios Patient has chronic kidney disease Care Plan Patient has chronic kidney disease No Nuzhat Larios documented as of this encounter Procedures Procedure Name Priority Date/Time Associated Diagnosis Comments 28 EXTRACTION, ERUPTED TOOTH OR EXPOSED ROOT (ELEVATION/FORCEPS REMOVAL) Routine 08/04/2025 1:00 PM EST CASE PRESENTATION, DETAILED AND EXTENSIVE TREATMENT PLANNING Routine 08/04/2025 1:00 PM EST documented in this encounter Visit Diagnoses Not on filedocumented in this encounter Additional Health Concerns Active Problems Noted Date Diagnosed Date Help patients manage their type 2 diabetes 07/29 Weekly blood pressure task 07/29/2025 Help patients manage their type 2 diabetes 07/29 Patient has diabetic eye disease 07/29/2025 Help patients manage their type 2 diabetes 07/29 Patient has chronic kidney disease 07/29/2025 Weekly blood pressure task 07/29/2025 Weekly blood pressure task 07/29/2025 Patient has diabetic eye disease 07/29/2025 Patient has diabetic eye disease 07/29/2025 Patient has chronic kidney disease 07/29/2025 Patient has chronic kidney disease 07/29/2025 Weekly blood pressure task 08/04/2025 Weekly blood pressure task 08/04/2025 Weekly blood pressure task 08/04/2025 Patient has diabetic eye disease 08/04/2025 Patient has diabetic eye disease 08/04/2025 Patient has diabetic eye disease 08/04/2025 Patient has chronic kidney disease 08/04/2025 Patient has chronic kidney disease 08/04/2025 Patient has chronic kidney disease 08/04/2025 documented as of this encounter
--- OUTSIDE RECORDS SUMMARY | 2025-08-10 10:00 | XMS_ITS | Encounter Summary ---
Author Organization [facility] Address [address] [place] [address] Care Team Providers Care Science Job Titles Name Role Phone Pollo Thurston MD Primary Care Provider +1- [phone] Reason for Referral * Other Medical (Routine) - Pending Review Specialty Diagnoses / Procedures Referred By Contac t Referred To Contact Wound Care Diagnoses Type 2 diabetes mellitus with foot ulcer (CODE) ([facility] V24, [facility] V28) Non-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 layer exposed ([facility] V24, [facility] V28) Procedures Cellular Tissue Based Product Diabetic Ulcer Right Toe D1, Great Sly Welch PA [address] [place] [address] Phone: tel: fax: Referral ID Status Reason Start Date Expiration Date V isits Requested Visits Authorized [id number] Pending Review 08/10/2025 08/10/2026 1 1 Reason for Visit * Reason Comments Wound Care Encounter Details Date Type Department Care Team (Latest Contact Info) Description 08/10/2025 10:00 AM EST Office Visit [facility] [address] [place] [phone] Sly Welch PA [address] [place] [address] Type 2 diabetes mellitus with foot ulcer (CODE) ([facility] V24, [facility] V28) (Primary Dx); Non-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 layer exposed ([facility] V24, [facility] V28); Diabetic polyneuropathy associated with type 2 diabetes mellitus ([facility] V24, [facility] V28); Other chronic osteomyelitis of right foot ([facility] V24, [facility] V28) Social History Tobacco Use [...] or concerns, please contact the [facility] at . Follow up(s)/ Referrals: Infectious Disease: [facility] Infectious Disease- follow up as scheduled Arterial Ultrasound: Appointment 08/23/25 Shelter: N/A Additional Orders: Increase protein in your [...] / unwrap compression and notify [facility] at . ) N/A [...] removal instructions please call wound care center ([phone]). Bathing / Showering / Hygiene: May shower [...] NOT change for one week * Randi Pereyra RN - 08/10/2025 10:00 AM EST Discharge Patient directed to check out at front of house manager and collect visit summary with wound care [...] Description 08/17/2025 1:15 PM EST Clinical Support [facility] [address] [place] [phone] 08/23/2025 1:30 PM EST Ancillary Procedure [facility] - [facility] [address] [facility] Harjinder [address] [place] [phone] 08/24/2025 1:15 PM EST Clinical Support [facility] [address] [place] [phone] 08/31/2025 9:15 AM EST Clinical Support [facility] [address] [place] [phone] 09/07/2025 1:30 PM EST Clinical Support [facility] [address] [place] [phone] 09/14/2025 1:45 PM EST Clinical Support [facility] [address] [place] [phone] Pending Results Name Type Priority Associated Diagnoses Date /Time Debridement Diabetic Ulcer Right Toe D1, Great Procedures Routine Type 2 diabetes mellitus with foot ulcer (CODE) (CMS/[facility] V24, [facility] V28) Non-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 layer exposed ([facility] V24, [facility] V28) 08/10/2025 10:00 AM EST Cellular Tissue Based Product Diabetic Ulcer Right Toe D1, Great Procedures Routine Type 2 diabetes mellitus with foot ulcer (CODE) ([facility] V24, [facility] V28) Non-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 layer exposed ([facility] V24, [facility] V28) 08/10/2025 10:31 AM EST [...] 2 diabetes mellitus with foot ulcer (CODE) (CMS/[employer] V24, CMS/[facility] V28) Non-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 layer exposed (CMS/[employer] V24, CMS/[facility] V28) DEBRIDEMENT Routine 08/10/2025 10:00 [...] V28) Other chronic osteomyelitis of right foot (CMS/[employer] V24, CMS/H[facility] V28) documented in this encounter [...] documented as of this encounter Care Teams Science Job Titles Relationship Specialty Start Date End Date Pollo Thurston MD [address] [place] [phone] PCP - General Internal Medicine 06/02/25 documented as of this encounter
--- NOTE | 2025-08-10 14:26 | A.OFFVIS_ITS ---
Vital Signs 08/10/25 14:29 Height 5 ft 7.5 in Weight 249 lb 1.957 oz BMI 38.4 BP 130/66 Blood Pressure Location Rt brachial Position Sitting Pulse 64 Pulse Source Monitor Intake Visit Reasons: 1 yr follow up Customs Guard Required: No Accompanied by: Self / Same As Patient Allergies almond (ALMONDS) Allergy (Severe, Verified 07/19/25 14:25) THROAT CLOSES pecan nut (PECAN) Allergy (Severe, Verified 07/19/25 14:25) THROAT CLOSES Medication List - Last Reconciled 08/10/25 by Ander Pollack MD apixaban 5 mg PO BID aspirin 81 mg PO DAILY cholecalciferol (vitamin D3) (Vitamin D3) 25 mcg PO DAILY cyanocobalamin (vitamin B-12) 500 mcg PO DAILY doxycycline hyclate mg PO empagliflozin (Jardiance) 25 mg PO DAILY finasteride 5 mg PO DAILY 90 days gabapentin 100 mg PO TID PRN hydrocodone-acetaminophen 5-300 mg 1 tab PO DAILY PRN insulin aspart U-100 (Novolog U-100 Insulin aspart) 30 units subcut TID insulin glargine (Lantus Solostar U-100 Insulin) 38 units subcut BID levofloxacin 750 mg PO DAILY loratadine (Claritin) 10 mg PO DAILY magnesium oxide 400 mg PO BID@0900,1700 metoprolol tartrate 12.5 mg PO BID midodrine 10 mg PO BID@0900,1700 pantoprazole 40 mg PO DAILY@0630 pen needle, diabetic (Easy Touch) As directed rosuvastatin 40 mg PO BEDTIME terazosin 5 mg PO BEDTIME HPI Comments Details: Kirby returns for follow-up. Previously at [facility] but switc hed to [facility] for convenience. Per available records, history of coronary disease, strokes, pulmonary embolism and many comorbidities. He still has some residual effects from the stroke and comes with a walker. However, it seems that he can still walk couple of miles or so with the walker. Within limits of this activity, he does not have any symptoms like angina or shortness of breath. Due to an ulcer on the patient's toe, the patient has modified the exercise routine from walking an hour and a half a day to using a stationary bike for the same duration. The patient has been exercising on the stationary bike for over 400 consecutive days. The patient uses a tall walker for ambulation and reports that using a different type of walker causes back pain after approximately a chana rter of a mile. [facility] Medical History Chronic back pain Chronic pain syndrome Stroke due to occlusion of left anterior cerebral artery History of CVA in adulthood Hyperlipidemia GERD (gastroesophageal reflux disease) Hypertension Vitamin B12 deficiency Vitamin D deficiency CKD (chronic kidney disease) History of transient ischemic attack and cerebral infarction Insulin dependent type 2 diabetes mellitus Pulmonary embolism Coronary artery disease Atherosclerotic cardiovascular disease CVA (cerebral vascular accident) DVT (deep venous thrombosis) BPH (benign prostatic hyperplasia) Frequency-urgency syndrome Subacute osteomyelitis of right foot Enlarged prostate without lower urinary tract symptoms (luts) History of elevated PSA Surgical History History of surgery Family History Mother Heart attack Father Diabetes Stroke Social History Household Members: Family Housing: House Are you a primary technical healthcare consultant to a significant other at home: No Do you presently have visiting nurse or other home services: No Alcohol intake: current Alcohol intake frequency: does not drink Patient Tobacco Use Status: Never used Tobacco Second Hand Smoke Exposure: No service: Yes Current occupational status: retired and disabled Cognitive needs: Yes (walker) Hearing needs: No Vision needs: Yes (rx glasses) Review of Systems Const Denies chills, Denies fatigue, Denies fever(s), Denies frequent falls, Denies weakness, Denies weight gain and Denies weight loss ENT Denies dizziness Card Denies chest pain, Denies leg edema, Denies lightheadedness, Denies palpitations, Denies dyspnea and Denies dyspnea on exertion Resp Denies cough, Denies dyspnea and Denies dyspnea on exertion GI Denies hematochezia Musc Denies abnormal gait, Denies muscle weakness, Denies numbness, Denies radiating pain into limb and Denies tingling Neuro Denies abnormal gait, Denies dizziness, Denies frequent falls, Denies numbness, Denies tingling and Denies weakness Endo Denies fatigue and Denies palpitations Physical Exam Vital Signs: Last Vital Signs Pulse 64 08/10/25 14:29 BP 130/66 08/10/25 14:29 BMI result Body Mass Index 38.4 Const General: comfortable and no acute distress Orientation/consciousness: patient oriented x3 HEENT Other: Unremarkable Head: Yes normal to inspection Neck Neck: Yes normal visual inspection Chest Chest palpation & inspection: normal inspection of the chest Resp Auscultation: clear to auscultation bilaterally Cardio Palpation: normal PMI Heart sounds: S1 normal heart sound present, S2 normal heart sound present, no gallops, no murmurs and no rubs GI Palpation (GI): Soft to palpation Back/Spine/Pelvis Other: unremarkable Skin General skin exam: no rashes or lesions noted Neuro General: patient oriented x3 Extrem General: Yes normal to inspection Psych Mental Status: mental status grossly normal Office Procedures EKG Details: EKG with sinus rhythm at 64/Min; cannot exclude old anterior infarct; [place] [address]-Rdhjitfjitffppjrx, Complete Assessment & Plan Assessment & Plan (1) Atherosclerotic cardiovascular disease: Code(s): I25.10 - Atherosclerotic heart disease of [place] coronary artery without angina pectoris Category: Medical Plan: Last cardiac catheterization in 2019; two-vessel CAD with progressive branch vessel disease of small diagonals. Heavily calcified LAD; not significantly changed from 2009. Previous stents in circumflex, RPL. In the recent echocardiogram, LVEF 63%. No significant wall motion abnormalities or valvular findings. Clinically, no angina. He remains on aspirin, statins. Last LDL 60 mg/dL. (2) CVA (cerebral vascular accident): Code(s): I63.9 - Cerebral infarction, unspecified Category: Medical Plan: Per [place] [facility] [place], multiple strokes x3. Lastly, recurrent stroke in left cerebral hemisphere following lumbar spine surgery in 2020. Per documentation, hypercoagulability workup was negative. 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 He was recommended to continue anticoagulation. On Eliquis. (3) PAF (paroxysmal atrial fibrillation): Code(s): I48.0 - Paroxysmal atrial fibrillation Category: Medical Plan: Per cardiology notes, has had brief atrial fibrillation in the past. There is mention of 'possible' atrial fibrillation for 4 minutes in a prior Holter. (4) History of pulmonary embolism: Code(s): Z86.711 - Personal history of pulmonary embolism Category: Medical Plan: Subsegmental pulmonary embolism from 2020. On anticoagulation. It seems this was noted in the setting of stroke. (5) Orthostatic hypotension: Code(s): I95.1 - Orthostatic hypotension Category: Medical Plan: Described in prior records but patient states it is not a recent issue. He is listed to be on midodrine. Coding Level of Care Code Est Pt Level 4 (43364) Complex visit Add On G2211 Diagnoses Atherosclerotic cardiovascular disease I25.10 CVA (cerebral vascular accident) I63.9 PAF (paroxysmal atrial fibrillation) I48.0 History of pulmonary embolism Z86.711 Orthostatic hypotension I95.1 CPT Codes EKG - CPT: 80291-Odmalsumcagzxgclb, Complete ([id number])
[2025-08-10 14:29] VITALS: BP 130/66; PULSE 64; BMI 38.4
--- OUTSIDE RECORDS SUMMARY | 2025-08-10 18:15 | XMS_ITS | Patient Health Record ---
[facility] Address [address] [place] [address] Care Team Providers Care Kineseologist Name Role Phone Pollo Thurston Primary Care Provider Andrzej Ramirez Unavailable [phone] Allergies No Known Allergies Results Component Value [...] Problem Acquired hammer toe of right foot (2173009515606772 ) Other hammer toe(s) (acquired), right foot (M20.41) Active confirmed Response to treatment, Improvemen t Problem Acquired hammer toe of left foot (9265763359875082 ) Other hammer toe(s) (acquired), left foot (M20.42) Active confirmed Response to treatment, Improvemen t Problem Polyneuropathy due to diabetes mellitus type I (372182453) Type 1 diabetes mellitus with diabetic polyneuropathy (E10.42) Active confirmed Problem Skin ulcer of toe of right foot with fat layer exposed (L97.512) Active confirmed Vital Signs Blood pressure diastolic 67 mm Hg 05/18/2025 Height 5ft8in in 05/18/2025 Blood pressure systolic 129 mm Hg 05/18/2025 Weight 240 lbs 05/18/2025 BMI 36.49 kg/m2 05/18/2025 Procedures Procedure Date Ordered Date Performed Result Body Sit e 79341-UWVHCNI NAIL, 1-5 11/03/2024 N/A 65675-NNRZ SKIN LESIONS, OVER 4 11/03/2024 N/A K7309-HLZXENHO DYSTROPHIC NAILS ANY # 11/03/2024 N/A 58521-AGLDLHJ NAIL, 1-5 02/09/2025 N/A 82319-AGJB SKIN LESIONS, OVER 4 02/09/2025 N/A A0133-KVJANLDX DYSTROPHIC NAILS ANY # 02/09/2025 N/A 90304-GBGBHOO NAIL, 1-5 05/18/2025 N/A 04888-FIGF SKIN LESIONS, OVER 4 05/18/2025 N/A V8589-EBGNZCUL DYSTROPHIC NAILS ANY # 05/18/2025 N/A Encounters Encounter Location Date Provider Diagnosis [address] [address] 11/03/2024 Andrzejjuan miguel DailyRaman Type 1 diabetes mellitus with diabetic polyneuropathy E10.42 ; Tinea unguium B35.1 ; Other hammer toe(s) (acquired), right foot M20.41 and Other hammer toe(s) (acquired), left foot M20.[address] [address] 02/09/2025 Andrzej Raman Type 1 diabetes mellitus with diabetic polyneuropathy E10.42 ; Tinea unguium B35.1 and Xerosis of skin L85.[address] [address] 05/18/2025 Andrzej Dailyunier Type 1 diabetes mellitus with diabetic polyneuropathy [...] X ray : Foot, left 3V 12/05/2022 89127-RIKXMUU NAIL, 1-5 11/03/2024 26040-UCLIIXF NAIL, 1-5 02/09/2025 66828-AGILIJS NAIL, 1-5 07/28/2024 39541-WVVWIQQ NAIL, 1-5 05/18/2025 07243-NDMKRUP SKIN/TISSUE 12/05/2022 29020-PCUSAIF SKIN/TISSUE 01/09/2023 32394-GWAW SKIN LESIONS, OVER 4 02/08/20 23 50217-IPLM SKIN LESIONS, OVER 4 12/06/19 23 81845-GHLS SKIN LESIONS, OVER 4 07/28/20 24 27702-DRPV SKIN LESIONS, OVER 4 05/18/20 25 78786-CSIP SKIN LESIONS, OVER 4 11/03/19 25 51083-GKBQ SKIN LESIONS, OVER 4 02/10/20 25 D2794-KCNFLGZJ DYSTROPHIC NAILS ANY # F8263-XQFRZXNM DYSTROPHIC NAILS ANY # W0624-GUVHLUDZ DYSTROPHIC NAILS ANY # R8349-ZJZGHWSN DYSTROPHIC NAILS ANY # L7031-JDPLUYWN DYSTROPHIC NAILS ANY # X6254-USJCMEKD DYSTROPHIC NAILS ANY # Next Appt Details Provider Name:Andrzej Camargo , 2025 10:00:00 AM, [address] [place] [address], [phone], Insurance Providers Payer Name Payer Address Payer Phone Subscriber Number Group Number Insured Name Patient Relationship to Insured Coverage Start Date Coverage End Date [employer] PPO [address] [place] [phone] [id number] Kirby Christianson Self - patient is the insured Medical (General) History Medical History History ICD Code Back,Hip,and Knee pain Diabetic type ll Poor circulation Stroke Surgical History Surgery Date(Month/Year) back surgery- Spine L5 03/06 cataract surgery appendectomy right leg infection- [facility] [place]/2024 teeth extraction 05/10 Hospitalization History Reason Date(Month/Year)
--- OUTSIDE RECORDS SUMMARY | 2025-08-10 18:15 | XMS_ITS ---
Care Plan Created on: August 10, 2025 Kirby Christianson : 1950 Sex: Male Author Organization [facility] Address [address] [place] [address] Phone Care Team Providers Care Washing Machine Loader And Puller Name Role Phone Pollo Thurston MD Primary Care Provider [phone] Active Problems Problem Noted Date Diagnosed Date Osteomyelitis of right foot ([facility] V24, [facility] V28) 06/02/2025 Type 2 diabetes mellitus wit h foot ulcer (CODE) ([facility] V24, [facility] V28) 03/03/2025 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 right foot with fat layer exposed ([facility] V24, [facility] V28) 03/03/2025 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 right lower leg with fat layer exposed ([facility] V24, [facility] V28) 08/04/2024 Diabetes mellitus due to und erlying condition with diabetic autonomic neuropathy ([facility] V24, [facility] V28) 08/04/2024 Corns and callosities 08/04/2024 Chronic venous hypertension (idiopathic) with ulcer and inflammation of right lower extremity ([facility] V24, [facility] V28) 08/04/2024 History of colon polyps 11/19/2023 Overview (11/19/2023): 10/20/2015 Dyspnea on exertion 09/27/2021 Cerebrovascular accident (CVA) ([facility] V24, [facility] V28) 04/13/2021 Overview (11/19/2023): Last Assessment & [...] Doxazosin was decreased as well Pulmonary embolism ([facility] V24, [facility] V28) Osteomyelitis of toe of righ t foot ([facility] V24, [facility] V28) 06/04/2019 CKD (chronic kidney disease) stage 3, GFR 30-59 ml/min ([facility] V24, [facility] V28) 04/08/2019 Microalbuminuria 04/08/2019 Chronic back pain 11/03/2018 Coronary artery disease invo lving craig coronary artery of craig heart without angina pectoris 10/01/2017 Overview (11/19/2023): Last Assessment & Plan: No ischemic or heart failure symptoms. 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 Background diabetic retinopathy ([facility] V24, [facility] V28) 10/20/2015 Depressive disorder 10/20/2015 Diabetic neuropathy ([facility] V24, [facility] V28) 0 10/20/2015 DM (diabetes mellitus), type 2 with ophthalmic complications ([facility] V24, [facility] V28) 10/20/2015 Type 2 diabetes mellitus wit h neurological manifestations ([facility] V24, [facility] V28) 10/20/2015 Diverticulosis 10/20/2015 Overview (11/19/2023): CN [...] 2 diabetes mellitus wit h renal manifestations ([facility] V24, [facility] V28) 10/07/2015 Additional Health Concerns Active Problems [...] Plan Impaired Tissue Improving( 3:34 PM EST) Mirielle Dan RN Patient and Caregiver Understand Wound [...]
--- OUTSIDE RECORDS SUMMARY | 2025-08-10 18:15 | XMS_ITS | Encounter Summary ---
Author Organization [employer] Address [address] [place] [address] Care Team Providers Care Size Roller Operator Name Role Phone Unavailable Primary Care Provider Unavailabl e Encounter Details Date Type Department Care Team (Latest Contact Info) Description 08/10/2019 Abstract [facility] Dental, Provider, DDS Social History Tobacco [...] Description 08/17/2025 10:30 AM EST Office Visit [facility] [address] [place] [address] Anoop David DDS [address] [place] [address] 01/25/2026 10:15 AM EDT Office Visit [facility] [address] [place] [address] Lewis Maldonado documented as of this encounter Visit Diagnoses Not on filedocumented in this encounter
--- OUTSIDE RECORDS SUMMARY | 2025-08-10 18:15 | XMS_ITS | Clinical Summary ---
Author Organization [employer] Address [address] [place] [address] Care Team Providers Care Health And Wellness Instructor Name Role Phone Unavailable Primary Care Provider Unavailabl e Allergies Active Allergy Reactions Criticality Noted Date Comments Peanut-Containing Drug Products Shortness of breath High 05/10/2014 Black [place] Flavoring Agent (Non-Screening) 04/05/2025 Medications gabapentin (Neurontin) [...] needed at bedtime for pain. 5 Active amoxicillin (Amoxil) 500 MG capsule Take 1 capsule (500 mg) by mouth every 8 (eight) hours for 7 days. 21 capsule 5 08/11/20 25 Active ibuprofen 400 MG tablet Take 1 tablet (400 mg) by mouth every 6 (six) hours if needed for moderate pain for up to 20 doses. 20 tablet 5 Active Active Problems Problem Noted Date [...] Dyspnea on exertion 09/27/2021 Cerebrovascular accident (CVA) ([facility]) 021 Overview (04/23/2025): Last Assessment & [...] kidney disease) stage 3, GFR 30-59 ml/min (CMS/HCC) 04/08/2019 Microalbuminuria 04/08/2019 Chronic back pain 11/03/2018 Coronary artery disease invo lving [place] coronary artery of [place] heart without angina pectoris 10/01/2017 Overview (04/23/2025): Last Assessment & Plan: No ischemic or heart failure symptoms. 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) 10/31/2016 Background diabetic retinopathy 10/20/2015 Depressive [...] Encounters Date Type Department Care Team Description 08/04/2025 1:00 PM EST Office Visit [facility] [address] [place] [address] Anoop David DDS 07/27/2025 11:00 AM EST Office Visit [facility] [address] [place] [address] BeLewis arias Dental calculus (Primary Dx) 05/12/2025 9:00 AM EDT Office Visit [facility] [address] [place] [address] Anoop David DDS History of tooth extraction, unspecified edentulism class (Primary Dx) 05/11/2025 Orders Only [facility] [address] [place] [address] Eliecer Romero DMD from Last 3 Months [...] Pressure 150/70 08/04/2025 1:07 PM EST Pulse 75 07/27/2025 11:05 AM EST Temperature - - Respiratory Rate - - Oxygen Saturation - - Inhaled Oxygen Concentration - - Weight - - Height - - Body Mass Index - - Plan of Treatment Upcoming Encounters Date Type Department Care Team (Late st Contact Info) Description 08/17/2025 10:30 AM EST Office Visit [facility] [address] [place] [address] Anoop David DDS [address] [place] [address] 01/25/2026 10:15 AM EDT Office Visit [facility] [address] [place] [address] Lewis Maldonado Health Maintenance Due Date Last [...] 60 years or older (1 - Risk 50-74 years 1-dose series) 2002 COVID-19 Vaccine (5 - 2025-26 season) 2025 09/05/2022, 07/11/2021, 12/17/2020, Additional history exists Eye Exam 11/05/2025 11/05/2024, 06/25/2024 Dental Oral Exam 01/25/2026 07/27/2025, 07/2018, 01/01/2017, Additional history exists Dental Prophylaxis 01/25/2026 07/27/2025, 1 10/10/2018, 02/05/2019, Additional history exists Dental X-Ray: Bitewings 07/28/2026 07/27/20, 04/05/2025, 01/08/2025, Additional history exists Tobacco Screening 08/04/2026 08/04/2025 Dental X-Ray: Full Mouth 07/28/2028 07/27/2025, 05/18 [...] patients manage their type 2 diabetes No Matson, Dex, DDS Weekly blood pressure task Care Plan Weekly blood pressure task No Matson, Dex, DDS Help patients manage their type 2 diabetes Care Plan Help patients manage their type 2 diabetes No Matson, Dex, DDS Patient has diabetic eye disease Care Plan Patient has diabetic eye disease No Matson, Dex, DDS Help patients manage their type 2 diabetes Care Plan Help patients manage their type 2 diabetes No Matson, Dex, DDS Patient has chronic kidney disease Care Plan Patient has chronic kidney disease No Matson, Dex, DDS Weekly blood pressure task Care Plan Weekly blood pressure task No Ryan, Robert Weekly blood pressure task Care Plan Weekly blood pressure task No Ryan, Robert Patient has diabetic eye disease Care Plan Patient has diabetic eye disease No Ryan, Robert Patient has diabetic eye disease Care Plan Patient has diabetic eye disease No Ryan, Robert Patient has chronic kidney disease Care Plan Patient has chronic kidney disease No Ryan, Robert Patient has chronic kidney disease Care Plan Patient has chronic kidney disease No Ryan, Robert Weekly blood pressure task Care Plan Weekly [...] has chronic kidney disease No Nuzhat Larios Procedures Procedure Name Priority Date/Time Associated Diagnosis Comments 28 EXTRACTION, ERUPTED TOOTH OR EXPOSED ROOT (ELEVATION/FORCEPS REMOVAL) Routine 08/04/2025 1:00 PM EST CASE PRESENTATION, DETAILED AND EXTENSIVE TREATMENT PLANNING Routine 08/04/2025 1:00 PM EST PERIODIC ORAL EVALUATION - ESTABLISHED PATIENT Routine 07/27/2025 11:00 AM EST CASE PRESENTATION, [...] (ELEVATION/FORCEPS REMOVAL) Routine 05/12/2025 9:00 AM EDT from Last 3 Months Additional Health Concerns [...] 08/04/2025 Patient has chronic kidney disease 08/04/2025 [facility] STAND ADULT
--- OUTSIDE RECORDS SUMMARY | 2025-08-10 18:15 | XMS_ITS | Clinical Summary ---
Author Organization [facility] Address [address] [place] [address] Phone Care Team Providers Care Hot Press Operator Name Role Phone Pollo Thurston MD Primary Care Provider [phone] Allergies Active Allergy Reactions Criticality Noted Date [...] Date Diagnosed Date Osteomyelitis of right foot ([facility] V24, [facility] V28) 06/02/2025 Type 2 diabetes mellitus wit h foot ulcer (CODE) ([facility] V24, [facility] V28) 03/03/2025 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 right foot with fat layer exposed ([facility] V24, [facility] V28) 03/03/2025 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 right lower leg with fat layer exposed ([facility] V24, [facility] V28) 08/04/2024 Diabetes mellitus due to und erlying condition with diabetic autonomic neuropathy ([facility] V24, [facility] V28) 08/04/2024 Corns and callosities 08/04/2024 Chronic venous hypertension (idiopathic) with ulcer and inflammation of right lower extremity ([facility] V24, [facility] V28) 08/04/2024 History of colon polyps 11/19/2023 Overview (11/19/2023): 10/20/2015 Dyspnea on exertion 09/27/2021 Cerebrovascular accident (CVA) ([facility] V24, [facility] V28) 04/13/2021 Overview (11/19/2023): Last Assessment & [...] Doxazosin was decreased as well Pulmonary embolism ([facility] V24, [facility] V28) Osteomyelitis of toe of righ t foot ([facility] V24, [facility] V28) 06/04/2019 CKD (chronic kidney disease) stage 3, GFR 30-59 ml/min ([facility] V24, [facility] V28) 04/08/2019 Microalbuminuria 04/08/2019 Chronic back pain 11/03/2018 Coronary artery disease invo lving [place] coronary artery of [place] heart without angina pectoris 10/01/2017 Overview (11/19/2023): Last Assessment & Plan: No ischemic or heart failure symptoms. 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 ([facility] V24, [facility] V28) 10/31/2016 Osteoarthritis of spine with radiculopathy, lumb ar region 10/31/2016 Obstructive sleep apnea 01/24/2016 Overview (11/19/2023): [facility] Polysomnogram: Date 12/10/2017; SE 77%; SM 87%; [...] by 2018 diagnostic polysomnogram. Background diabetic retinopathy ([facility] V24, [facility] V28) 10/20/2015 Depressive disorder 10/20/2015 Diabetic neuropathy ([facility] V24, [facility] V28) 0 10/20/2015 DM (diabetes mellitus), type 2 with ophthalmic complications ([facility] V24, [facility] V28) 10/20/2015 Type 2 diabetes mellitus wit h neurological manifestations ([facility] V24, [facility] V28) 10/20/2015 Diverticulosis 10/20/2015 Overview (11/19/2023): CN [...] Encounters Date Type Department Care Team Description 08/10/2025 10:00 AM EST Office Visit [facility] [address] [place] [phone] Sly Welch PA Type 2 diabetes mellitus with foot ulcer (CODE) (CMS/HCC V24, CMS/HCC V28) (Primary Dx); Non-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 layer exposed (CMS/HCC V24, CMS/HCC V28); Diabetic polyneuropathy associated with type 2 diabetes mellitus (CMS/HCC V24, CMS/HCC V28); Other chronic osteomyelitis of right foot (CMS/HCC V24, CMS/HCC V28) 08/03/2025 1:15 PM EST Office Visit [facility] [address] [place] [phone] Sly Welch PA Type 2 diabetes mellitus with foot ulcer (CODE) (CMS/HCC V24, CMS/HCC V28) (Primary Dx); Non-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 layer exposed (CMS/HCC V24, CMS/HCC V28); Diabetic polyneuropathy associated with type 2 diabetes mellitus (CMS/HCC V24, CMS/HCC V28); Other chronic osteomyelitis of right foot (CMS/HCC V24, CMS/HCC V28) 07/27/2025 2:00 PM EST Office Visit [facility] [address] [place] [phone] Sly Welch PA Type 2 diabetes mellitus with foot ulcer (CODE) (CMS/HCC V24, CMS/HCC V28) (Primary Dx); Non-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 layer exposed (CMS/HCC V24, CMS/HCC V28); Diabetic polyneuropathy associated with type 2 diabetes mellitus (CMS/HCC V24, CMS/HCC V28); Other chronic osteomyelitis of right foot (CMS/HCC V24, CMS/HCC V28) 07/20/2025 2:30 PM EST Office Visit [facility] [address] [place] [phone] Sergio Rodriguez MD Type 2 diabetes mellitus with foot ulcer (CODE) (CMS/HCC V24, CMS/HCC V28) (Primary Dx); Non-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 layer exposed (CMS/HCC V24, CMS/HCC V28); Diabetic polyneuropathy associated with type 2 diabetes mellitus (CMS/HCC V24, CMS/HCC V28); Other chronic osteomyelitis of right foot (CMS/HCC V24, CMS/HCC V28) 07/13/2025 2:45 PM EDT Office Visit [facility] [address] [place] [phone] Sly Welch PA Type 2 diabetes mellitus with foot ulcer (CODE) (CMS/HCC V24, CMS/HCC V28) (Primary Dx); Non-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 layer exposed (CMS/HCC V24, CMS/HCC V28); Diabetic polyneuropathy associated with type 2 diabetes mellitus (CMS/HCC V24, CMS/HCC V28); Other chronic osteomyelitis of right foot (CMS/HCC V24, CMS/HCC V28) 07/08/2025 3:15 PM EDT Office Visit [facility] [address] [place] [phone] Sly Welch PA Type 2 diabetes mellitus with foot ulcer (CODE) (CMS/HCC V24, CMS/HCC V28) (Primary Dx); Non-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 layer exposed (CMS/HCC V24, CMS/HCC V28); Diabetic polyneuropathy associated with type 2 diabetes mellitus (CMS/HCC V24, CMS/HCC V28); Other chronic osteomyelitis of right foot (CMS/HCC V24, CMS/HCC V28) 07/01/2025 3:15 PM EDT Office Visit [facility] [address] [place] [phone] Sly Welch PA Type 2 diabetes mellitus with foot ulcer (CODE) (CMS/HCC V24, CMS/HCC V28) (Primary Dx); Non-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 layer exposed (CMS/HCC V24, CMS/HCC V28); Diabetic polyneuropathy associated with type 2 diabetes mellitus (CMS/HCC V24, CMS/HCC V28); Other chronic osteomyelitis of right foot (CMS/HCC V24, CMS/HCC V28) 06/24/2025 3:30 PM EDT Office Visit [facility] [address] [place] [phone] Sergio Rodriguez MD Type 2 diabetes mellitus with foot ulcer (CODE) ([facility] V24, [facility] V28) (Primary Dx); Non-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 layer exposed (CMS/HCC V24, [facility] V28) 06/17/2025 3:15 PM EDT Office Visit [facility] [address] [place] [phone] Sly Welch PA Type 2 diabetes mellitus with foot ulcer (CODE) ([facility] V24, [facility] V28) (Primary Dx); Non-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 layer exposed (CMS/HCC V24, CMS/HCC V28) 06/09/2025 2:45 PM EDT Office Visit [facility] [address] [place] [phone] Sly Welch PA Type 2 diabetes mellitus with foot ulcer (CODE) ([facility] V24, [facility] V28) (Primary Dx); Non-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 layer exposed ([facility] V24, [facility] V28); Diabetic polyneuropathy associated with type 2 diabetes mellitus (CMS/HCC V24, CMS/HCC V28); Other chronic osteomyelitis of right foot (CMS/HCC V24, [facility] V28) 06/07/2025 Telephone [facility] [address] [place] [phone] Keena Zamora RN 06/02/2025 11:30 AM EDT Office Visit [facility] [address] [place] [phone] Sly Welch PA Type 2 diabetes mellitus with foot ulcer (CODE) ([facility] V24, [facility] V28) (Primary Dx); Non-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 layer exposed ([facility] V24, CMS/HCC V28); Diabetic polyneuropathy associated with type 2 diabetes mellitus ([facility]/HCC V24, CMS/HCC V28); Other chronic osteomyelitis of right foot (CMS/HCC V24, CMS/HCC V28) 05/29/2025 8:53 AM EDT - 05/29/2025 11:59 PM EDT Hospital Encounter [facility] MRI [address] [place] [phone] Type 2 diabetes mellitus with foot ulcer (CODE) ([facility] V24, [facility] V28); Non-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 layer exposed ([facility] V24, [facility] V28); Diabetic polyneuropathy associated with type 2 diabetes mellitus ([facility] V24, [facility] V28) Discharge Disposition: Home or Self Care 05/20/2025 Telephone [facility] [address] [place] [phone] Mireille Yan RN 05/19/2025 1:18 PM EDT - 05/19/2025 11:59 PM EDT Hospital Encounter [facility] Xray [address] [place] [phone] Type 2 diabetes mellitus with foot ulcer (CODE) ([facility] V24, [facility] V28); Non-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 layer exposed ([facility] V24, [facility] V28); Diabetic polyneuropathy associated with type 2 diabetes mellitus ([facility] V24, [facility] V28) Discharge Disposition: Home or Self Care 05/19/2025 12:30 PM EDT Office Visit [facility] [address] [place] [phone] Sly Welch PA Type 2 diabetes mellitus with foot ulcer (CODE) ([facility] V24, [facility] V28) (Primary Dx); Non-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 layer exposed ([facility] V24, [facility] V28); Diabetic polyneuropathy associated with type 2 diabetes mellitus ([facility] V24, [facility] V28) from Last 3 Months Immunizations Immunization [...] Date Comments Coronary artery disease invo lving [place] coronary artery with other forms of angina pectoris 10/07/2015 DX:Coronary artery disease involving [place] coronary artery with other forms of angina pectoris; COMMENT: stentsx2, no details, one in 2001, another 2004 BPH (benign prostatic hyperplasia) 10/07/2015 DX:BPH (benign prostatic hyperplasia) Hypercholesteremia 10/07/2015 DX:Hyperchole steremia Erectile dysfunction 10/17/2015 DX:Erectile dysfunction HTN (hypertension) 10/20/2015 DX:HTN (hyper tension) Onychomycosis 10/20/2015 DX:Onychomycosis Background diabetic retinopa thy ([facility] V24, [facility] V28) 10/20/2015 DX:Background diabetic reti nopathy (HCC) DM (diabetes mellitus), type 2 with ophthalmic complications ([facility] V24, [facility] V28) 10/20/2015 DX:DM (diabetes mellitus), t ype 2 with ophthalmic complications (HCC) Old IN (myocardial infarction) 10/07/2015 D X:Old IN (myocardial infarction); COMMENT: stentsx2, no details, one in 2001, another 2004 Diverticulosis 10/20/2015 DX:Diverticulosi s; COMMENT: CN 2011 Depressive disorder 10/20/2015 DX:Depressiv e disorder GERD (gastroesophageal reflux disease) 10/20/2015 DX:GERD (gastroesophageal reflux disease) History of colon polyps 10/20/2015 DX:Histo ry of colon polyps; COMMENT: Type not specified in transfer notes Type 2 diabetes mellitus wit h vascular disease ([facility] V24, [facility] V28) 10/07/2015 DX:Type 2 diabetes mellitus with vascular disease (HCC) Diabetic neuropathy ([facility] V24, [facility] V28) 10/20/2015 DX:Diabetic neuropathy (HCC) Type 2 diabetes mellitus wit h neurological manifestations ([facility] V24, [facility] V28) 10/20/2015 DX:Type 2 diabetes mellitus with neurological manifestations (HCC) Type 2 diabetes mellitus wit h renal manifestations ([facility] V24, [facility] V28) 10/07/2015 DX:Type 2 diabetes mellitus with renal manifestations ([facility]) Microalbuminuria 04/08/2019 DX:Microalbumin uria CKD (chronic kidney disease) stage 3, GFR 30-59 ml/min ([facility] V24, [facility] V28) 04/08/2019 DX:CKD (chronic kidney disea se) stage 3, GFR 30-59 ml/min ([facility]) Family History Medical History Relation Name Comments Diabetes Father Heart attack Mother at age 63 Heart attack Sister 1 at age 63 with heart condition, ?not [place] Diabetes Sister 2 Relation Name Status Comments [...] Description 08/17/2025 1:15 PM EST Clinical Support [facility] [address] [place] [phone] 08/23/2025 1:30 PM EST Ancillary Procedure [facility] [address] Harjinder [address] [place] [phone] 08/24/2025 1:15 PM EST Clinical Support [facility] [address] [place] [phone] 08/31/2025 9:15 AM EST Clinical Support [facility] [address] [place] [phone] 09/07/2025 1:30 PM EST Clinical Support [facility] [address] [place] [phone] 09/14/2025 1:45 PM EST Clinical Support [facility] [address] [place] [phone] Health Maintenance Due Date Last Done Comments [...] 2 diabetes mellitus with foot ulcer (CODE) ([facility] V24, [facility] V28) Non-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 layer exposed ([facility] V24, [facility] V28) DEBRIDEMENT Routine 08/10/2025 10:00 AM EST Type 2 diabetes mellitus with foot ulcer (CODE) ([facility] V24, [facility] V28) Non-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 layer exposed (CMS/HCC V24, CMS/HCC V28) CELLULAR TISSUE BASED PRODUCT Routine 08/03/2025 1:38 PM EST Type 2 diabetes mellitus with foot ulcer (CODE) (CMS/HCC V24, CMS/HCC V28) Non-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 layer exposed (CMS/HCC V24, CMS/HCC V28) DEBRIDEMENT Routine 08/03/2025 1:15 PM EST Type 2 diabetes mellitus with foot ulcer (CODE) (CMS/HCC V24, CMS/HCC V28) Non-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 layer exposed (CMS/HCC V24, CMS/HCC V28) DEBRIDEMENT Routine 07/27/2025 2:00 PM EST Type [...] 2 diabetes mellitus (CMS/HCC V24, CMS/HCC V28) from Last 3 Months Results * Cellular Tissue Based Product Diabetic Ulcer Right Toe D1, Great (08/03/2025 1:38 PM EST) Sergio Landin MD - 08/03/2025 1:38 PM EST Sergio Rodriguez MD 08/05/2025 10:39 AM Cellular Tissue Based Product Diabetic Ulcer Right Toe D1, Great Date/Time: 08/03/2025 1:38 PM Performed by: LAVON Moe Authorized by: LAVON Moe Associated wounds: Wound Diabetic Ulcer 03/03/25 Toe D1, Great Right Consent: Consent obtained: Verbal Consent given by: Patient Risks discussed: Bleeding [place] protocol: Procedure explained and questions answered to patient or proxy's satisfaction: yes Patient identity confirmed: Verbally with patient Anesthesia (see MAR for exact dosages): Anesthesia method: None Procedure details: Product applied: Epicord Product lot #: [id number] Product expiration: 09/16/2029 Saline lot #: [id number] Saline expiration: 03/09/2027 Amount used (cm^2): 2 Amount wasted (cm^2): 0 Secured: Yes Secured with: Mepitel Dressing: Dressing applied: Steri-Strips Post-procedure details: Patient tolerance of procedure: Tolerated well, no immediate complications Sly DOLL IN CLINIC/BEDSIDE ORDERABLE S Final Result * Debridement Diabetic Ulcer Right Toe D1, Great (08/03/2025 1:15 PM EST) Narrative Sergio Rodriguez MD - 08/03/2025 1:15 PM EST Sergio Rodriguez MD 08/05/2025 10:39 AM Debridement Diabetic Ulcer Right Toe D1, [...] Post Debridement: Fat layer exposed Time taken: 08/03/2025 1:23 PM Length (cm): 2 Width (cm): 1.1 Depth (cm): 0.1 Area (cm^2): 1.73 Time taken: 08/03/2025 1:24 PM Length (cm): 2 Width (cm): 1.1 Depth (cm): 0.1 Percent Debrided (%): 75 Surface Area (cm^2): 2.2 Area Debrided (cm^2): 1.65 Volume (cm^3): 0.22 Tissue and other material debrided: dermis, epidermis and subcutaneous tissue Devitalized tissue debrided: callus and slough Instrument: Curette and forceps Amount of bleeding: small Hemostasis obtained with: Pressure Procedural pain: 0 Post-procedural pain: 0 Response to treatment: Procedure was tolerated well Sly DOLL IN CLINIC/BEDSIDE ORDERABLE S Final Result * Debridement Diabetic Ulcer Right Toe D1, Great (07/27/2025 2:00 PM EST) Sergio Landin MD - 07/27/2025 2:00 PM EST Sergio Rodriguez MD 07/28/2025 4:13 PM Debridement Diabetic Ulcer Right Toe D1, [...] Post Debridement: Fat layer exposed Time taken: 07/27/2025 2:12 PM Length (cm): 1.8 Width (cm): 0.8 Depth (cm): 0.2 Area (cm^2): 1.13 Time taken: 07/27/2025 2:13 PM Length (cm): 1.8 Width (cm): 0.8 Depth (cm): 0.2 Percent Debrided (%): 75 Surface Area (cm^2): 1.44 Area Debrided (cm^2): 1.08 Volume (cm^3): 0.29 Tissue and other material debrided: dermis, epidermis [...] Consent given by: Patient Risks discussed: Bleeding [place] protocol: Procedure explained and questions answered to patient or proxy's satisfaction: yes Patient identity confirmed: Verbally with patient Anesthesia (see MAR for exact dosages): Anesthesia method: None Procedure details: Product applied: Epicord Product lot #: [id number] Product expiration: 09/16/2029 Saline lot #: [id number] Saline expiration: 12/16/2026 Amount used (cm^2): 2 Amount wasted (cm^2): 0 Secured: Yes Secured with: Mepitel Dressing: Dressing applied: Steri-Strips Post-procedure details: Patient tolerance of procedure: Tolerated well, no immediate complications us Sly DOLL IN CLINIC/BEDSIDE ORDERABLE S [...] Consent given by: Patient Risks discussed: Bleeding [place] protocol: Procedure explained and questions answered to patient or proxy's satisfaction: yes Patient identity confirmed: Verbally with patient Anesthesia (see MAR for exact dosages): Anesthesia method: None Procedure details: Product applied: Epicord Product lot #: [id number] Product expiration: 09/16/2029 Amount used (cm^2): 2 Amount wasted (cm^2): 0 Secured: Yes Secured with: Mepitel Dressing: Dressing applied: Steri-Strips Post-procedure details: Patient tolerance of procedure: Tolerated well, no immediate complications us Sly DOLL IN CLINIC/BEDSIDE ORDERABLE S [...] Response to treatment: Procedure was tolerated well Sergio Rodriguez MD IN CLINIC/BEDSIDE ORDERAB LES [...] LAB HEMETOLOGY METHOD 06/02/2025 2:20 PM EDT [facility] RBC 4.10(L) 4.50 - 5.50 M/mcL LAB HEMETOLOGY METHOD 06/02/2025 2:20 PM EDT [facility] Hemoglobin 12.1(L) 13.5 - 17.5 g/dL LAB [facility]OLOGY [facility] Hematocrit 36.8(L) 42.0 - 54.0 % LAB HEMETOLOGY METHOD 06/02/2025 2:20 PM EDT [facility] MCV 88.9 79.0 - 98.0 FL LAB HEMETOLOGY METHOD 06/02/2025 2:20 PM EDT [facility] MCH 29.2 27.0 - 32.0 pcg LAB HEMETOLOGY METHOD 06/02/2025 2:20 PM EDT [facility] MCHC 32.9 32.0 - 37.0 g/dL LAB HEMETOLOGY METHOD 06/02/2025 2:20 PM EDT [facility] RDW 13.6 11.0 - 15.0 % LAB HEMETOLOGY METHOD 06/02/2025 2:20 PM EDT [facility] Platelets 229 130 - 400 K/mcL LAB HEMETOLOGY METHOD 06/02/2025 2:20 PM EDT [facility] MPV 11.4(H) 7.0 - 11.0 FL LAB HEMETOLOGY METHOD 06/02/2025 2:20 PM EDT [facility] NRBC 0.0 <1.0 % LAB HEMETOLOGY METHOD 06/02/2025 2:20 PM EDT [facility] NRBC Absolute 0.00 <0.10 K/mcL LAB HEMETOLOGY METHOD 06/02/2025 2:20 PM EDT [facility] Neutrophils Relative 60.7 % LAB HEMETOLOGY METHOD 06/02/2025 2:20 PM EDT [facility] Lymphocytes Relative 22.4 % LAB HEMETOLOGY METHOD 06/02/2025 2:20 PM EDT [facility] Monocytes Relative 10.9 % LAB [facility]ETOLOGY METHOD [facility] Eosinophils Relative 5.1 % LAB HEMETOLOGY METHOD 06/02/2025 2:20 PM EDT [facility] Basophils Relative 0.4 % LAB HEMETOLOGY METHOD 06/02/2025 2:20 PM EDT [facility] Immature Granulocytes Relative 0.5 % LAB HEMETOLOGY METHOD 06/02/2025 2:20 PM EDT [facility] Neutrophils Absolute 4.61 1.50 - 7.00 K/mcL LAB HEMETOLOGY METHOD 06/02/2025 2:20 PM EDT [facility] Lymphocytes Absolute 1.70 1.00 - 5.00 K/mcL LAB HEMETOLOGY METHOD 06/02/2025 2:20 PM EDT [facility] Monocytes Absolute 0.83 0.20 - 1.00 K/mcL LAB HEMETOLOGY METHOD 06/02/2025 2:20 PM EDT [facility] Eosinophils Absolute 0.39 0.00 - 0.50 K/[facility] LAB HEMETOLOGY METHOD 06/02/2025 2:20 PM EDT [facility] Basophils Absolute 0.03 0.00 - 0.20 K/[facility] LAB HEMETOLOGY METHOD 06/02/2025 2:20 PM EDT [facility] Immature Granulocytes Absolute 0.04(H) 0.00 - 0.03 K/[facility] LAB HEMETOLOGY METHOD 06/02/2025 2:20 PM EDT [facility] Blood Venous blood specimen / Unknown Venipuncture / Unknown 06/02/2025 12:23 PM EDT 06/02/2025 2:07 PM EDT [facility] BLOOD ORDERABLES Final Result Performing Organization Address City/[facility]/ZIP Co de Phone Number [facility] [address] [place] [address], [place] [phone] * Sedimentation rate (06/02/2025 12:23 PM EDT) Sed Rate 16 0 - 20 mm/hr LAB HEMETOLOGY METHOD 06/02/2025 2:25 PM EDT [facility] Blood Venous blood specimen / Unknown Venipuncture / Unknown 06/02/2025 12:23 PM EDT 06/02/2025 2:07 PM EDT [facility] BLOOD ORDERABLES Final Result [facility] [address] [place] [address], [place] [phone] * (ABNORMAL) C-reactive protein (06/02/2025 12:23 PM EDT) [facility] C-Reactive Protein 0.84(H) <=0.50 mg/dL LAB CHEMISTRY METHOD 06/02/2025 3:49 PM EDT [facility] Blood Venous blood specimen / Unknown Venipuncture / Unknown 06/02/2025 12:23 PM EDT 06/02/2025 2:07 PM EDT [facility] BLOOD ORDERABLES Final Result [facility] [address] [place] [address], * (ABNORMAL) Basic metabolic panel (06/02/2025 12:23 PM EDT) [facility] Sodium 136 133 - 145 mmol/L LAB CHEMISTRY METHOD 06/02/2025 3:[address] [facility] Potassium 4.2 3.5 - 5.5 mmol/L LAB CHEMISTRY METHOD 06/02/2025 3:[address] [facility] Chloride 104 96 - 110 mmol/L LAB CHEMISTRY METHOD 06/02/2025 3:[address] [facility] CO2 27 21 - 32 mmol/L LAB CHEMISTRY METHOD 06/02/2025 3:[address] [facility] Anion Gap 5 3 - 11 LAB CHEMISTRY METHOD 06/02/2025 3:[address] [facility] Glucose 174(H) 70 - 100 mg/dL LAB CHEMISTRY METHOD 06/02/2025 3:[address] [facility] BUN 24 5 - 25 mg/dL LAB CHEMISTRY METHOD 06/02/2025 3:[address] [facility] Creatinine 1.33(H) 0.70 - 1.30 mg/dL LAB CHEMISTRY METHOD 06/02[facility]25 [facility] eGFR 57(L) >=60 mL/min/1. 73m2 LAB CHEMISTRY METHOD 06/02/2025 3:48 PM EDT [facility] Comment:Calculation based on the Chronic Kidney Disease Epidemiology Collaboration (CKD-EPI) equation refit without adjustment for race. BUN/Creatinine Ratio 18.0 LAB CHEMISTRY METHOD 06/02/2025 3:48 PM EDT [facility] Calcium 8.8 8.5 - 10.5 mg/dL LAB CHEMISTRY METHOD 06/02/2025 3:48 PM EDT [facility] Blood Venous blood specimen / Unknown Venipuncture / Unknown 06/02/2025 12:23 PM EDT 06/02/2025 2:07 PM EDT [facility] BLOOD ORDERABLES Final Result [facility] [address] [place] [address], * (ABNORMAL) Culture wound with gram stain (06/02/2025 12:05 PM EDT) Culture, Wound Methicillin-Resista nt Staphylococcus aureus(A) ARIANA 06/05/2025 10:52 AM EDT [facility] Comment: The organism value for this result has been updated. These results have been appended to the previously preliminary verified report. Edited result: Previously reported as Staphylococcus aureus on 06/04/2025 at 1244 EDT. Culture, Wound Morganella morganii ssp morganii(A) ARIANA 06/05/2025 10:52 AM EDT [facility] Comment: The organism value for this result has been updated. These results have been appended to the previously preliminary verified report. This is an edited result. Previous organism was Gram negative bacilli on 06/04/2025 at 1244 EDT. Culture, Wound Streptococcus beta-hemolytic Group G(A) ARIANA 06/05/2025 10:52 AM EDT [facility] Comment: Susceptibility testing is not [...] No organisms noted 06/05/2025 10:52 AM EDT [facility] Swab Structure of right foot [...] LAB MICROBIOLOGY - GENERAL ORDERABLES Final Result [facility] [address] [place] [address], * Debridement Diabetic Ulcer Right Toe D1, Great (06/02/2025 11:30 AM EDT) Narrative Sergio Rodriguez MD - 06/02/2025 11:30 AM EDT [facility] [...] Signed Date: 05/31/2025 03:29 ET Workstation ID: [id number] Transcribed By: Self Edit Transcribed Date: 05/31/2025 [...] enhancementafter intravenous contrast administration. Nonspecific area of D2uguoxvradyw, T2 fat sat hyperintense signal along the [...] Signed Date: 05/31/2025 03:29 ET Workstation ID: [id number] Transcribed By: Self Edit Transcribed Date: 05/31/2025 03:21 ET us [facility] MRI PROCEDURES Final Re sult * XR Foot 3+ Views Right (05/19/2025 1:27 PM EDT) Anatomical Region Laterality Modality Lower Extremities, Foot Right [facility] 05/20/2025 7:57 AM EDT Impressions 05/20/2025 7:59 AM EDT No fracture or dislocation. Thinning of the cortex of the medial aspect of the first distal phalanx which could represent early osteomyelitis. More definitive evaluation with radionuclide bone scan should be considered if clinically warranted. Code 68383 -------- FINAL REPORT -------- Dictated By: Eddie Jose Dictated Date: 05/20/2025 07:57 ET Assigned Physician: Eddie Jose Reviewed and Electronically Signed By: Eddie Jose Signed Date: 05/20/2025 07:59 ET Workstation ID: [id number] Transcribed By: Self Edit Transcribed Date: 05/20/2025 [...] scan should be considered ifclinically warranted. 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
== END 2025-08-10 14:47 | disposition home or self-care (01) ==
LOC: HO.HCS 14:22
PROVIDERS: PCP Physician Assistant Medical; Visit Provider Internal Medicine
DX: I25.10 Atherosclerotic heart disease of native coronary artery without angina pectoris (principal); I63.9 Cerebral infarction, unspecified; I48.0 Paroxysmal atrial fibrillation; Z86.711 Personal history of pulmonary embolism; I95.1 Orthostatic hypotension
CPT/HCPCS: 93010; 99214; G2211

== ENCOUNTER → 2025-08-10 14:21 | Outpatient (BNVA) | payer MEDICARE, SELFPAY | PROVIDERS: PCP Physician Assistant Medical; Visit Provider Internal Medicine | DX: I25.10 Atherosclerotic heart disease of native coronary artery without angina pectoris (principal); I63.9 Cerebral infarction, unspecified; I48.0 Paroxysmal atrial fibrillation; I95.9 Hypotension, unspecified; Z79.899 Other long term (current) drug therapy; Z86.711 Personal history of pulmonary embolism; Z79.82 Long term (current) use of aspirin; Z79.01 Long term (current) use of anticoagulants | CPT/HCPCS: 93005; 99212 ==

== ENCOUNTER 2025-08-11 08:24 | Outpatient (REF) | payer MEDICARE, SELFPAY ==
--- OUTSIDE RECORDS SUMMARY | 2024-04-27 08:45 | XMS_ITS ---
Author Organization [facility] Address [address] [place] [address] Care Team Providers Care Esthetician/Spa Coordinator Name Role Phone Pollo Thurston Primary Care Provider Andrzej Ramirez Unavailable [phone] Ced Menchaca Unavailable [phone] REASON FOR VISIT Painful thick toenails which are aggrevated by shoes and causes difficulty standing/walking Medications Medication SIG (Take, Route, Frequency, Duration) Notes Start Date End Date Status Extra Depth Diabetic Shoes with 3 Pair Custom heat-molded multi-density innersoles for 1 year Dx: Active Encounters Encounter Location Date Provider Diagnosis [facility] [address] [place] [address] 04/27/2024 Ced Menchaca Type 1 diabetes mellitus [...] Provider Name:Andrzej Camargo , 2025 10:00:00 AM, [address] [place] [address], [address], Procedure Notes * Category Sub-Category Detail Notes Keratoma Treatment Parring or Cutting o f Benign Hyperkeratotic Lesion(s) 62330 ( >4 Lesions) - The Benign hyperkeratotic [...] as necessary. Patient chooses, no pharmaceutical tx (25223) Nail Reduction Nail Reduction Trimming of dyst rophic nails performed to reduce/remove overall nail length and girth, by manual and electrical means with use of a nail nipper and/or dremel, to more viable healthy nail plate or bed tissue 6-10 (G0127) Progress Notes * Kirby CHRISTIANSONDOB:1950 ( 74 yo M)Acc No.[id number]:04/27/2024 Progress Note Patient: Kirby ALVARENGA Provider: Lamont Hernandez DPM :1950 A ge:73 Y S ex:Male Date:04/27/2024 Address: [address], [address] [facility] Pcp:Pollo Thurston Subjective: * Chief Complaints: * [...] enies. C ardiovascular: Pacemaker d enies. M STUDIO OPERATION ENGINEER d enies. W PW d enies. C [...] as necessary. Patient chooses, no pharmaceutical tx (54282). K eratoma Treatment: Parring or Cutting of [...] SKIN LESIONS, OVER 4, Modifiers: XS , 05568 DEBRIDE NAIL, 1-5, Modifiers: XS , G0127 [...] 0 04/27/2024 Generated for Zachary wells/Concepcion/Jasmeet on: 10/11/2024 08:46 AM EST History and Physical Notes * HPI [...]
--- OUTSIDE RECORDS SUMMARY | 2025-08-10 10:00 | XMS_ITS | Encounter Summary ---
Author Organization [facility] Address [address] [place] [address] Care Team Providers Care District Agent Name Role Phone Pollo Thurston MD Primary Care Provider [phone]- [phone] Reason for Referral * Other Medical (Routine) - Pending Review Specialty Diagnoses / Procedures Referred By Contac t Referred To Contact Wound Care Diagnoses Type 2 diabetes mellitus with foot ulcer (CODE) ([facility] V24, [facility] V28) Non-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 layer exposed (CMS/[facility] V24, CMS/[facility] V28) Procedures Cellular Tissue Based Product Diabetic Ulcer Right Toe D1, Great Sly Welch PA [address] [place] [address] Phone: tel: fax: Referral ID Status Reason Start Date Expiration Date V isits Requested Visits Authorized [id number] Pending Review 08/10/2025 08/10/2026 1 1 Reason for Visit * Reason Comments Wound Care Encounter Details Date Type Department Care Team (Latest Contact Info) Description 08/10/2025 10:00 AM EST Office Visit [facility] [address] [place] [phone] Sly Welch PA [address] [place] [address] Type 2 diabetes mellitus with foot ulcer (CODE) ([facility] V24, [facility] V28) (Primary Dx); Non-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 layer exposed ([facility] V24, [facility] V28); Diabetic polyneuropathy associated with type 2 diabetes mellitus ([facility] V24, [facility] V28); Other chronic osteomyelitis of right foot ([facility] V24, [facility] V28) Social History Tobacco Use [...] Sign Reading Time Taken Comments Blood Pressure 100/74 08/10/2025 10:03 AM EST Pulse 95 08/10/2025 10:03 AM EST Temperature 36.3 C (97.3 F) 08/10/2025 10:03 AM EST Respiratory Rate 18 08/10/2025 10:03 AM EST Oxygen Saturation 96% 08/10/2025 10:03 AM EST Inhaled Oxygen Concentration - - Weight - - Height - - Body Mass Index - - documented in this encounter Progress Notes * Mireille Yan RN - 08/10/2025 10:00 AM EST PROVIDER ORDERS Go to ER if you are presenting with fever, chills, increased redness, pain, swelling, warmth aroundwound area and/or foul smelling odor. If you have any questions or concerns, please contact the [facility] at . Follow up(s)/ Referrals: Infectious Disease: [facility] Infectious Disease- follow up as scheduled Arterial Ultrasound: Appointment 08/23/25 Long-Term: N/A Additional Orders: Increase protein in your diet to help promote wound healing Lidocaine Orders: Apply Lidocaine 5% Topical Ointment prior to debridements at Wound Care appointments Edema Control: (If your compression wrap(s) feel to tight, please elevate your leg(s) about heart level. If your wrap(s) are becoming painful and/or you loose sensation of toes/ are having toe discoloration (a change from your baseline), please remove / unwrap compression and notify [facility] at . ) N/A Offloading: Orthofelt, Wear Diabetic shoes with inserts Negative Pressure Wound Therapy: (If wound vac is off/non functioning for more than 2 hours, please remove vac dressing, apply a wetto dry dressing and notify your home care agency) N/A Cellular/Tissue Based Products: -Epicord #4 Cellular or tissue based product applied, protective layer applied over top. DO NOT REMOVE protective layer. May change outer dressing as directed. , Please keep dressing dry and intact. May change outer dressing ONLY as directed. DO NOT bathe without protective moisture barrier , DO NOT keep cellular or tissue product in place for more than 10 days. If you have not been seen at the wound care center in greater than 10 days and were not given removal instructions please call wound care center ([phone]). Bathing / Showering / Hygiene: May shower [...] AG)- cut to fit to wound bed over protective mepital dressing, epicord skin substitute applied, DO NOT REMOVE for one week Secondary dressinx2 woven gauze ( non-sterile), Orthofelt Secure with: 2 conforming gauze roll, Spandage size 2, 1 paper tape Compression Therapy: N/A Dressing Change Frequency: DO NOT change for one week * Randi ePreyra RN - 08/10/2025 10:00 AM EST Discharge Patient directed to check out at cylinder machine operator and collect visit summary with wound care directions and book follow up as directed. Dressings applied: Wound #1 (Right great toe plantar): Cleanser: Cleanse with Normal Saline Periwound: Apply Skin Prep to alessio wound Primary dressing: Hydrofiber with silver (Aquacel AG)- cut to fit to wound bed over protective mepital dressing, epicord skin substitute applied, DO NOT REMOVE for one week Secondary dressinx2 woven gauze ( non-sterile), Orthofelt Secure with: 2 conforming gauze roll, Spandage size 2, 1 paper tape Dressing technique was demonstrated and explained. Patient questions answered. Pt departed from wound care center without issue or incidence. documented in this encounter Plan of Treatment Upcoming Encounters Date Type Department Care Team (Late st Contact Info) Description 08/17/2025 1:15 PM EST Clinical Support [facility] [address] [place] [phone] 08/23/2025 1:30 PM EST Ancillary Procedure [facility] [address] [facility] Harjinder [address] [place] [phone] 08/24/2025 1:15 PM EST Clinical Support [facility] [address] [place] [phone] 08/31/2025 9:15 AM EST Clinical Support [facility] [address] [place] [phone] 09/07/2025 1:30 PM EST Clinical Support [facility] [address] [place] [phone] 09/14/2025 1:45 PM EST Clinical Support [facility] [address] [place] [phone] Pending Results Name Type Priority Associated Diagnoses Date /Time Debridement Diabetic Ulcer Right Toe D1, Great Procedures Routine Type 2 diabetes mellitus with foot ulcer (CODE) ([facility] V24, [facility] V28) Non-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 layer exposed ([facility] V24, [facility] V28) 08/10/2025 10:00 AM EST Cellular Tissue Based Product Diabetic Ulcer Right Toe D1, Great Procedures Routine Type 2 diabetes mellitus with foot ulcer (CODE) ([facility] V24, [facility] V28) Non-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 layer exposed ([facility] V24, [facility] V28) 08/10/2025 10:31 AM EST documented as of this encounter Goals [...] (in notes) Care Plan Impaired Tissue Improving( 3:34 PM EST) Mireille Dan RN Patient and Caregiver Understand Wound Care Education Care Plan Impaired Tissue On track( 3:34 PM EST) Mireille Dan RN Wound volume [...] Yan RN documented as of this encounter Procedures Procedure Name Priority Date/Time Associated Diagnosis Comments CELLULAR TISSUE BASED PRODUCT Routine 08/10/2025 10:31 AM EST Type 2 diabetes mellitus with foot ulcer (CODE) (CMS/[facility] V24, [facility] V28) Non-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 layer exposed (CMS/[facility] V24, CMS/[facility] V28) DEBRIDEMENT Routine 08/10/2025 10:00 AM EST Type 2 diabetes mellitus with foot ulcer (CODE) (CMS/[facility]CC V24, CMS/HCC V28) Non-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 layer exposed (CMS/HCC V24, CMS/HCC V28) documented in this encounter Visit Diagnoses Diagnosis Type 2 diabetes mellitus with foot ulcer (CODE) (CMS/HCC V24, CMS/HCC V28)- Primary Non-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 layer exposed (CMS/HCC V24, CMS/HCC V28) Diabetic polyneuropathy associated with type 2 diabetes mellitus (CMS/HCC V24, CMS/HCC V28) Other chronic osteomyelitis of right foot (CMS/[facility] V24, CMS/HCC V28) documented in this encounter Additional Health [...] documented as of this encounter Care Teams District Agent Relationship Specialty Start Date End Date Pollo Thurston MD [address] [place] [address] PCP - General Internal Medicine 06/02/25 documented as of this encounter
--- NOTE | ~2025-08-11 | XR_ITS ---
EXAMINATION: X-ray lumbar spine. CLINICAL INFORMATION: Dorsalgia COMPARISON: None TECHNIQUE: 5 views FINDINGS: Posterior spinal fusion hardware at L4-5. There is increased density in the L4-5 intervertebral disc space, with small metallic densities suggestive of postsurgical changes with bony fusion. Hardware is intact. No suspicious perihardware lucency. Vertebral body sagittal alignment is maintained. No evidence of acute fracture or subluxation. Moderate L4-5 disc degeneration. Multilevel mild disc degeneration otherwise. Facet degeneration in the lower lumbar spine. SI joints are intact. No abnormal soft tissue calcification. XR/XR lumbar spine 4V min IMPRESSION: Status post posterior spinal fusion at L4-5. No findings to suggest hardware complications. No acute osseous findings. Electronically signed by: Bharat Currie MD 08/11/2025 09:02 AM JIAN ROMAN
--- OUTSIDE RECORDS SUMMARY | 2025-08-11 08:45 | XMS_ITS | Encounter Summary ---
Author Organization [facility] Address [address] [place] [address] Care Team Providers Care Paralegal Name Role Phone Deepthi Mayes MD Primary Care Provider [phone] [facility]cp Primary Care Provider Unavailabl Deepthi Licona MD Primary Care Provider [phone] Manan Reinoso Primary Care Provider Unavailab Thea Graham PA-C Unavailable Unavailab Nasir Mullins MD Unavailable Trina Dc NP Unavailable Unavailab rere Encounter Details Date Type Department Care Team Description 02/12/2019 Telephone Cardiology - [address] [address] Modesta Muro, DNP [address] [facility] [place] [address] Social History Tobacco Use Types Packs/Day Years [...] encounter Miscellaneous Notes * Telephone Encounter - Nasir Fry MD - 02/20/2019 1:04 PM EDT Spoke to Dr Wills. Disease unchanged. LAD diffusely diseased . Thinks he's OK to move ahead withback surgery. * Telephone Encounter - Briana Lieberman - 02/13/2019 2:21 PM EDT Order for Cath recvd being worked on a ESME basis. * Telephone Encounter - Modesta Muro DNP, FNP - 02/12/2019 3:49 PM EDT Reviewed stress test. Given iscehmia and upcoming back surgery, will arrange for cardiac cath. Risks and benefits of cath discussed with patient including but not limited to [place], stroke, , pain, bleeding, kidney dysfunction, and infection with scheduled or urgent CABG. The patient understands and wishes to proceed with cardiac cath. All questions answered. documented in this encounter Plan of Treatment Not on file documented as of this encounter Results * (ABNORMAL) CBC (AUTO DIFF PLATELET) (02/18/2019 1:35 PM EDT) WHITE BLOOD COUNT 7.7 4.8 - 10.8 x10-3/uL 02/18/2019 3:48 PM EDT [facility] RED BLOOD COUNT 4.1(L) 4.5 - 5.5 x10-6/uL 02/18/2019 3:48 PM EDT [facility] Hemoglobin 12.4(L) 13.5 - 17.5 g/dL 02/18/2019 3:48 PM EDT [facility] Hematocrit 37.2(L) 42 - 54 % 02/18/2019 3:48 PM EDT [facility] MEAN CORPUSCULAR VOLUME 90.3 79 - 98 fL 02/18/2019 3:48 PM EDT [facility] MEAN CORPUSCULAR HEMOGLOBIN 30.1 27 - 32 pg 02/18/2019 3:48 PM EDT [facility] MEAN CORPUSCULAR HGB CONC 33.3 32 - 37 g/dL 02/18/2019 3:48 PM EDT [facility] RED CELL DISTRIBUTION WIDTH 13.5 11 - 15 % 02/18/2019 3:48 PM EDT [facility] PLT COUNT 269 130 - 400 x10-3/uL 02/18/2019 3:48 PM EDT [facility] MEAN PLATELET VOLUME 11.9(H) 7 - 11 fL 02/18/2019 3:48 PM EDT [facility] NRBC % AUTO 0.0 <1 % 02/18/2019 3:48 PM EDT [facility] NEUTROPHILS % 58.7 % 02/18/2019 3:48 PM EDT [facility] LYMPH % 25.6 % 02/18/2019 3:48 PM EDT [facility] MONO % 9.6 % 02/18/2019 3:48 PM EDT [facility] EOS % 5.1 % 02/18/2019 3:48 PM EDT [facility] BASO % 0.5 % 02/18/2019 3:48 PM EDT [facility] IMMATURE GRANULOCYTES % 0.5 % 02/18/2019 3:48 PM EDT [facility] NRBC # AUTO 0.00 <0.1 x10-3/uL 02/18/2019 3:48 PM EDT [facility] NEUT # 4.52 1.5 - 7.0 x10-3/uL 02/18/2019 3:48 PM EDT [facility] LYMPH # 1.97 1 - 5.0 x10-3/uL 02/18/2019 3:48 PM EDT [facility] MONO # 0.74 0.2 - 1.0 x10-3/uL 02/18/2019 3:48 PM EDT [facility] EOS # 0.39 0 - 0.5 x10-3/uL 02/18/2019 3:48 PM EDT [facility] BASO # 0.04 0 - 0.2 x10-3/uL 02/18/2019 3:48 PM EDT [facility] IMMATURE GRANULOCYTES # 0.04(H) 0 - 0.03 x10-3/uL 02/18/2019 3:48 PM EDT [facility] 02/18/2019 1:35 PM EDT 02/18/2019 1:36 PM EDT Modesta Bhaskar DNP LAB [facility] * PROTHROMBIN TIME (02/18/2019 1:35 PM EDT) Prothrombin Time 12.3 10.6 - 13.9 SEC 02/18/2019 3:50 PM EDT [facility] INR 1.03 02/18/2019 3:50 PM EDT [facility] 02/18/2019 1:35 PM EDT 02/18/2019 1:36 PM EDT Modesta Muro DNP LAB Performing Organization Address [facility]/ZIP Co de Phone Number [facility] * (ABNORMAL) BASIC METABOLIC PANEL (02/18/2019 1:35 PM EDT) GLUCOSE 97 70 - 100 mg/dL 02/18/2019 3:54 PM EDT [facility] Comment:Reference range appl icable to fasting specimens only Blood Urea Nitrogen 24 5 - 25 mg/dL 02/18/2019 3:54 PM EDT [facility] CREAT 1.44(H) 0.7 - 1.3 mg/dL 02/18/2019 3:54 PM EDT [facility] GLOMERULAR FILTRATION RATE 49 02/18/2019 3:54 PM EDT [facility] Comment: If patient is -Guyanese, multiply result by 1.21 Chronic Kidney Disease: < 60 ml/min/1.73 square meters Kidney Failure: < 15 ml/min/1.73 square meters NA 139 133 - 145 mmol/L 02/18/2019 3:54 PM EDT [facility] K 4.2 3.5 - 5.5 mmol/L 02/18/2019 3:54 PM EDT [facility] CL 106 96 - 110 mmol/L 02/18/2019 3:54 PM EDT [facility] CARBON DIOXIDE (CO2) 26 21 - 32 mmol/L 02/18/2019 3:54 PM EDT [facility] ANION GAP 7 3 - 11 02/18/2019 3:54 PM EDT [facility] CALCIUM 9.3 8.5 - 10.5 mg/dL 02/18/2019 3:54 PM EDT [facility] 02/18/2019 1:35 PM EDT 02/18/2019 1:36 PM EDT Modesta Muro DNP LAB DEVON MULLINS documented in this encounter Visit Diagnoses Diagnosis Old [place] (myocardial infarction)- Primary Old myocardial infarction Abnormal stress test Other nonspecific abnormal cardiovascular system function study documented in this encounter Care Teams Paralegal Relationship Specialty Start Date End Date Deepthi Mayes MD [address] [place] [address] PCP - General Internal Medicine 09/01/15 04/05/19 [facility] [address] [place] [address] PCP - General Internal Medicine 04/06/19 04/14/19 Deepthi Mayes MD [address] [place] [address] PCP - General Internal Medicine 04/15/19 11/22/20 Manan Reinoso [address] [place] [address] PCP - General Internal Medicine 11/23/20 Thea Yoder PA-C [address] [place] [address] Cardiology 04/13/21 Nasir Fry MD [address] [place] [address] Service And Repair Supervisor Cardiovascular Disease 07/21/21 Trina Dc NP [address] [place] [address] Specialist Cardiology 07/21/21 documented as of this encounter
--- OUTSIDE RECORDS SUMMARY | 2025-08-11 08:45 | XMS_ITS | Encounter Summary ---
Author Organization [facility] Address [address] [place] [address] Care Team Providers Care Chemical Applicator Name Role Phone Deepthi Mayes MD Primary Care Provider [phone] [facility], Pcp Primary Care Provider Unavailabl Deepthi Licona MD Primary Care Provider [phone] Manan Reinoso Primary Care Provider Unavailab Thea Graham PA-C Unavailable Unavailab Nasir Mullins MD Unavailable Trina Dc NP Unavailable Unavailab le Reason for Visit * Reason Comments E-prescribe Rx Request Encounter Details Date Type Department Care Team Description 10/11/2018 Refill Adult Medicine [address] [phone] Deepthi Mayes MD [address] [place] [address] [phone] E-prescribe Rx Request Social History Tobacco Use [...] encounter Miscellaneous Notes * Telephone Encounter - Julia Nascimento M.A. - 10/13/2018 4:48 PM EST Lab Results Component Value Date NA 141 06/18/2017 K 5.0 06/18/2017 CO2 23.1 06/18/2017 CL 105 06/18/2017 BUN 28 06/18/2017 CREAT 1.2 06/18/2017 GLU 301 08/30/2017 CA 9.5 06/18/2017 GFR > 60 06/18/2017 Last ov 03/28/18 * Telephone Encounter - Nae Dea - 10/13/2018 8:48 AM EST Patient would like script to be: E-PRESCRIBED/FAXED TO PHARMACY WHEN WAS THE PATIENT'S LAST APPOINTMENT IN ADULT MEDICINE? 03/26/18 WHEN WAS THE LAST TIME THE PATIENT SAW THEIR PCP? Same as above Does patient have an upcoming appointment? No, will call to book (THE MEDICATION REQUESTED IS ON THE MED LIST ABOVE) All of the medications requested were on the CURRENT MEDS list Did you check the Pharmacy information above?: YES Patient wants: 90 -day supply Is this a mail order prescription request ? NO If the refill is from a FAXED refill request what is the RX # listed on the fax? N/A Patients current insurance carrier is: [place] / [place] / Product Type: MEDICARE [id number] documented in this encounter Plan of Treatment Not on file documented as of this encounter Visit Diagnoses Not on filedocumented in this encounter Care Teams Chemical Applicator Relationship Specialty Start Date End Date Deepthi Mayes MD [address] [place] [address] [phone] PCP - General Internal Medicine 09/01/15 04/05/19 [facility] Pcp [address] [place] [address] PCP - General Internal Medicine 04/06/19 04/14/19 Deepthi Mayes MD [address] [place] [address] PCP - General Internal Medicine 04/15/19 11/22/20 Manan Reinoso [address] [place], [place] [phone] PCP - General Internal Medicine 11/23/20 Thea Yoder PA-C [address] [place], [place] [phone] Cardiology 04/13/21 Nasir Fry MD [address] [place] [address] Chief Of Harbor Patrol Cardiovascular Disease 07/21/21 Trina Dc, JAVI [address] [place] [address] Specialist Cardiology 07/21/21 documented as of this encounter
--- OUTSIDE RECORDS SUMMARY | 2025-08-11 08:45 | XMS_ITS | Encounter Summary ---
Author Organization [facility] Address [address] [place] [address] Care Team Providers Care Molder Wax Ball Name Role Phone Deepthi Mayes MD Primary Care Provider [phone] Manan Reinoso Primary Care Provider Unavailab Thea Graham PA-C Unavailable Unavailab Nasir Mullins MD Unavailable Trina Dc NP Unavailable Unavailab le Encounter Details Date Type Department Care Team Description 05/15/2019 Tube Draw Helper Report Medical Records [address] [place] [phone] Jose Patel Social History Tobacco Use Types Packs/Day Years Used Date Smoking Tobacco: Never Smokeless Tobacco: Never Alcohol Use Standard Drinks/Week Comments Yes 0 (1 standard drink = 0.6 oz pur e alcohol) 14 drinks per month Sex Assigned at Date Recorded Not on file Job Start Date Occupation Industry Not on file Not on file Not on file documented as of this encounter Plan of Treatment Not on file documented as of this encounter Visit Diagnoses Not on filedocumented in this encounter Care Teams Molder Wax Ball Relationship Specialty Start Date End Date Deepthi Mayes MD [address] [place], [place] [phone] PCP - General Internal Medicine 04/15/19 11/22/20 Manan Reinoso [address] [place] [address] PCP - General Internal Medicine 11/23/20 Thea Yoder PA-C [address] [place] [address] Cardiology 04/13/21 Nasir Fry MD [address] [place] [address] Grades 7 And 8 Teacher Cardiovascular Disease 07/21/21 Trina Dc NP [address] [place] [address] Specialist Cardiology 07/21/21 documented as of this encounter
--- OUTSIDE RECORDS SUMMARY | 2025-08-11 08:45 | XMS_ITS | Encounter Summary ---
Author Organization [facility] Address [address] [place] [address] Care Team Providers Care Rotating Field Assembler Name Role Phone Deepthi Mayes MD Primary Care Provider [phone] [facility], Pcp Primary Care Provider Unavailabl Deepthi Licona MD Primary Care Provider [phone] Manan Reinoso Primary Care Provider Unavailab Thea Graham PA-C Unavailable Unavailab Nasir Mullins MD Unavailable Trina Dc NP Unavailable Unavailab le Reason for Visit * Reason Comments E-prescribe Rx Request Encounter Details Date Type Department Care Team Description 10/15/2018 Refill Adult Medicine [address] [phone] Lisa Beatty NP E-prescribe Rx Request Social [...] / [place] / Product Type: MEDICARE [id number] documented in this encounter Plan of Treatment Not on file documented as of this encounter Visit Diagnoses Not on filedocumented in this encounter Care Teams Rotating Field Assembler Relationship Specialty Start Date End Date Deepthi Mayes MD [address] [place] [phone] PCP - General Internal Medicine 09/01/15 04/05/19 [facility] [address] [address] PCP - General Internal Medicine 04/06/19 04/14/19 Deepthi Mayes MD [address] [place] [address] PCP - General Internal Medicine 04/15/19 11/22/20 Manan Reinoso [address] [place], [place] [phone] PCP - General Internal Medicine 11/23/20 Thea Yoder PA-C [address] [place] [address] Cardiology 04/13/21 Nasir Fry MD [address] [place] [address] Director Blood Bank Cardiovascular Disease 07/21/21 Trina Dc NP [address] [place], [place] [phone] Specialist Cardiology 07/21/21 documented as of this encounter
--- OUTSIDE RECORDS SUMMARY | 2025-08-11 08:45 | XMS_ITS | Encounter Summary ---
Author Organization [facility] Address [address] [place] [address] Care Team Providers Care Manager Mission Name Role Phone Deepthi Mayes MD Primary Care Provider [phone] [facility], Pcp Primary Care Provider Unavailabl Deepthi Licona MD Primary Care Provider [phone] Manan Reinoso Primary Care Provider Unavailab Thea Graham PA-C Unavailable Unavailab Nasir Mullins MD Unavailable Trina Dc NP Unavailable Unavailab rere Encounter Details Date Type Department Care Team Description 03/18/2019 Music Pastor Report Medical Records [address] [place] [address] Modesta Muro, DNP [address] [place] [address] Social History Tobacco Use Types Packs/Day Years [...] on filedocumented in this encounter Care Teams Manager Mission Relationship Specialty Start Date End Date Deepthi Mayes MD [address] [place] [address] [phone] PCP - General Internal Medicine 09/01/15 04/05/19 [facility], Pcp [address] [place] [address] PCP - General Internal Medicine 04/06/19 04/14/19 Deepthi Mayes MD [address] [place] [address] PCP - General Internal Medicine 04/15/19 11/22/20 Manan Reinoso [address] [place], [place] [phone] PCP - General Internal Medicine 11/23/20 Thea Yoder PA-C [address] [place] [address] Cardiology 04/13/21 Nasir Fry MD [address] [place] [address] Packaging Mechanic Cardiovascular Disease 07/21/21 Trina Dc, JAVI [address] [place] [address] Specialist Cardiology 07/21/21 documented as of this encounter
--- OUTSIDE RECORDS SUMMARY | 2025-08-11 08:45 | XMS_ITS | Clinical Summary ---
Author Organization [employer] Address [address] [place] [address] Care Team Providers Care Plater Apprentice Name Role Phone Unavailable Primary Care Provider Unavailabl e Allergies Active Allergy Reactions Criticality Noted Date Comments Peanut-Containing Drug Products Shortness of breath High 05/10/2014 Black Morrison Flavoring Agent (Non-Screening) 04/05/2025 Medications gabapentin (Neurontin) [...] Dyspnea on exertion 09/27/2021 Cerebrovascular accident (CVA) ([facility]) 021 Overview (04/23/2025): Last Assessment & [...] pain 11/03/2018 Coronary artery disease invo lving [place] coronary artery of [place] heart without angina pectoris 10/01/2017 Overview (04/23/2025): Last Assessment & Plan: No ischemic or heart failure symptoms. 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 ([facility]) 10/31/2016 Background diabetic retinopathy 10/20/2015 Depressive [...] 08/04/2025 1:00 PM EST Office Visit [facility] [address] [place] [address] Anoop David DDS 07/27/2025 11:00 AM EST Office Visit [facility] [address] [place] [address] BeLewis arias Dental calculus (Primary Dx) 05/12/2025 9:00 AM EDT Office Visit [facility] [address] [place] [address] Anoop David DDS History of tooth extraction, unspecified edentulism class (Primary Dx) 05/11/2025 Orders Only [facility] [address] [place] [address] Eliecer Romero DMD from Last 3 Months [...] Description 08/17/2025 10:30 AM EST Office Visit [facility] [address] [place] [address] Anoop David DDS [address] [place] [address] 01/25/2026 10:15 AM EDT Office Visit [facility] [address] [place] [address] Lewis Maldonado Health Maintenance Due Date Last [...] Patient has chronic kidney disease 08/04/2025 [facility] ST[facility] ADULT
--- OUTSIDE RECORDS SUMMARY | 2025-08-11 08:45 | XMS_ITS | Encounter Summary ---
Author Organization [employer] Address [address] [facility] [address] [place] [address] Care Team Providers Care Relationship Consultant Name Role Phone Unavailable Primary Care Provider Unavailabl e Encounter Details Date Type Department Care Team (Latest Contact Info) Description 08/10/2019 Abstract [facility] CONVERSIONS Dental, Provider, DDS Social History [...] 10:30 AM EST Office Visit [facility] [address] [place] [address] Anoop David DDS [address] [facility] [place] [address] 01/25/2026 10:15 AM EDT Office Visit [facility] [address] [place] [address] Lewis Maldonado documented as of this encounter Visit Diagnoses Not on filedocumented in this encounter
--- OUTSIDE RECORDS SUMMARY | 2025-08-11 08:45 | XMS_ITS | Encounter Summary ---
Author Organization [facility] Address [address] [place] [address] Care Team Providers Care Electrologist Name Role Phone Deepthi Mayes MD Primary Care Provider [phone] Community, Pcp Primary Care Provider Unavailabl Deepthi Licona MD Primary Care Provider [phone] Manan Reinoso Primary Care Provider Unavailab Thea Graham PA-C Unavailable Unavailab Nasir Mullins MD Unavailable Trina cD NP Unavailable Unavailab rere Encounter Details Date Type Department Care Team Description 06/13/2017 [place] [facility] [address] [id number] Deepthi Mayes MD [address] [place] [address] [phone] Social History Tobacco Use Types Packs/Day Years [...] on filedocumented in this encounter Care Teams Electrologist Relationship Specialty Start Date End Date Deepthi Mayes MD [address] [place] [address] [phone] PCP - General Internal Medicine 09/01/15 04/05/19 Community, Pcp [address] [place] [address] PCP - General Internal Medicine 04/06/19 04/14/19 Deepthi Mayes MD [address] [place] [address] PCP - General Internal Medicine 04/15/19 11/22/20 Manan Reinoso [address] [place] [address] 87366 PCP - General Internal Medicine 11/23/20 Thea Yoder PA-C [address] [place] [address] 46171 Cardiology 04/13/21 Nasir Fry MD [address] [place] [address] 57339 Biological Plant Operator Cardiovascular Disease 07/21/21 Trina Dc, JAVI [address] [place] [address] 73927 Specialist Cardiology 07/21/21 documented as of this encounter
--- OUTSIDE RECORDS SUMMARY | 2025-08-11 08:45 | XMS_ITS | Encounter Summary ---
Author Organization [facility] Address [address] [place] [address] Care Team Providers Care Lead Caster Name Role Phone Deepthi Mayes MD Primary Care Provider [phone] Counts Include [address] [facility], Pcp Primary Care Provider UnavailDeepthi Salmon MD Primary Care Provider [phone] Manan Reinoso Primary Care Provider Unavailab Thea Graham PA-C Unavailable Unavailab Nasir Mullins MD Unavailable Trina Dc NP Unavailable Unavailab rere Encounter Details Date Type Department Care Team Description 03/31/2019 [facility] Medical Records [address] [place] [address] 43843 Abstract, Provider Social History Tobacco Use Types Packs/Day Years [...] on filedocumented in this encounter Care Teams Lead Caster Relationship Specialty Start Date End Date Deepthi Mayes MD [address] [place] [address] PCP - General Internal Medicine 09/01/15 04/05/19 Counts Include [facility], Pcp [address] [place] [address] 70776 PCP - General Internal Medicine 04/06/19 04/14/19 Deepthi Mayes MD [address] [place] [address] 24788 PCP - General Internal Medicine 04/15/19 11/22/20 Manan Reinoso [address] [place] [address] 23389 PCP - General Internal Medicine 11/23/20 Thea Yoder PA-C [address] [place] [address] 13197 Cardiology 04/13/21 Nasir Fry MD [address] [place] [address] 68610 Aniline Press Worker Cardiovascular Disease 07/21/21 Trina Dc NP [address] [place] [address] 13185 Specialist Cardiology 07/21/21 documented as of this encounter
--- OUTSIDE RECORDS SUMMARY | 2025-08-11 08:45 | XMS_ITS | Encounter Summary ---
Author Organization [facility] Address [address] [place] [address] Care Team Providers Care Gut Cleaner Name Role Phone Manan Reinoso Primary Care Provider Unavailab Thea Graham PA-C Unavailable Unavailab Nasir Mullins MD Unavailable Trina Dc NP Unavailable Unavailab le Encounter Details Date Type Department Care Team Description 10/27/2021 Heat Treating Furnace Tender Report Medical Records [address] [place] [address] 10391 Tyson Cai MD Social History Tobacco Use Types Packs/Day Years Used Date Smoking Tobacco: Never Smokeless Tobacco: Never Alcohol Use Standard Drinks/Week Comments Not Currently 0 (1 standard drink = 0.6 oz pur e alcohol) 14 drinks per month Sex Assigned at Date Recorded Not on file Job Start Date Occupation Industry Not on file Not on file Not on file COVID-19 Exposure Response Date Recorded In the last month, have you been in contact with someone who was confirmed or suspected to have Coronavirus / COVID-19? No / Unsure 09/27/2021 11:24 AM EST documented as of this encounter Plan of Treatment Not on file documented as of this encounter Visit Diagnoses Not on filedocumented in this encounter Care Teams Gut Cleaner Relationship Specialty Start Date End Date Manan Reinoso PCP - General Internal Medicine 11/23/20 Thea Yoder PA-C Cardiology 04/13/21 Nasir Fry MD Cream Cheese Maker Cardiovascular Disease 07/21/21 Trina Dc, LIVESTOCK HANDLER Specialist Cardiology 07/21/21 documented as of this encounter
--- OUTSIDE RECORDS SUMMARY | 2025-08-11 08:45 | XMS_ITS | Encounter Summary ---
Author Organization [facility] Address [address] [place] [address] Care Team Providers Care Manager Decision Support Name Role Phone Manan Reinoso Primary Care Provider Unavailab Thea Graham PA-C Unavailable Unavailab le Nasir Fry MD Unavailable Trina Dc NP Unavailable Unavailab le Reason for Visit * Reason Onset Date Comments DME Request 09/13/2023 [place] homepat ient Encounter Details Date Type Department Care Team Description 09/13/2023 Telephone Pulmonology - [place] [address] [facility] [address] [place] [address] Khushboo Hurt APRN [address] [facility] [address] [place] [phone] DME Request ([place] homepatient ) Social History Tobacco Use Types Packs/Day Years [...] encounter Miscellaneous Notes * Telephone Encounter - Billie Hayward M.A. - 09/17/2023 3:05 PM EST Faxed signed verbal order for home equipment back to [facility] 09/17/23. * Telephone Encounter - Deedee Moses - 09/13/2023 9:59 AM EST Fax received from [facility]( [facility]) for confirmation of verbal order for home equipment Jenny 03/04/23 Nov 03/04/24 documented in this encounter Plan of Treatment Not on file documented as of this encounter Visit Diagnoses Not on filedocumented in this encounter Care Teams Manager Decision Support Relationship Specialty Start Date End Date Manan Reinoso PCP - General Internal Medicine 11/23/20 Thea Yoder PA-C Cardiology 04/13/21 Nasir Fry MD Android Platform Developer Cardiovascular Disease 07/21/21 Trina Dc NP Specialist Cardiology 07/21/21 documented as of this encounter
--- OUTSIDE RECORDS SUMMARY | 2025-08-11 08:45 | XMS_ITS | Encounter Summary ---
Author Organization [facility] Address [address] [place] [address] Care Team Providers Care Oracle Analyst Name Role Phone Deepthi Mayes MD Primary Care Provider [phone] [facility], [facility], Pcp Primary Care Provider Unavailabl Deepthi Licona MD Primary Care Provider [phone] Manan Reinoso Primary Care Provider Unavailab Thea Graham PA-C Unavailable Unavailab Nasir Mullins MD Unavailable Trina Dc NP Unavailable Unavailab rere Encounter Details Date Type Department Care Team Description 01/22/2019 Orders Only Adult Medicine [address] [phone] Deepthi Mayes MD [address] [place] [address] [phone] Social History Tobacco Use Types Packs/Day Years [...] on filedocumented in this encounter Care Teams Oracle Analyst Relationship Specialty Start Date End Date Deepthi Mayes MD [address] [place] [address] [phone] PCP - General Internal Medicine 09/01/15 04/05/19 Community, Pcp [address] [place] [address] PCP - General Internal Medicine 04/06/19 04/14/19 Deepthi Mayes MD [address] [place] [address] PCP - General Internal Medicine 04/15/19 11/22/20 Manan Reinoso [address] [place] [address] 47812 PCP - General Internal Medicine 11/23/20 Thea Yoder PA-C [address] [place] [address] 01663 Cardiology 04/13/21 Nasir Fry MD [address] [place] [address] 00078 Aws Consultant Cardiovascular Disease 07/21/21 Trina Dc, JAVI [address] [place] [address] Specialist Cardiology 07/21/21 documented as of this encounter
--- OUTSIDE RECORDS SUMMARY | 2025-08-11 08:45 | XMS_ITS | Encounter Summary ---
Author Organization [facility] Address [address] [place] [address] Care Team Providers Care Project Development Manager Name Role Phone Manan Reinoso Primary Care Provider Thea Hernandez PA-C Unavailable Unavailab Nasir Mullins MD Unavailable Trina Dc NP Unavailable Unavailab rere Encounter Details Date Type Department Care Team Description 08/06/2021 Hospital Medical Records [address] [place] [id number] [place] [address] Social History Tobacco Use Types Packs/Day Years [...] have Coronavirus / COVID-19? No / Unsure 07/20/2021 1:41 PM EDT documented as of this encounter Plan of Treatment Not on file documented as of this encounter Procedures Procedure Name Priority Date/Time Associated Diagnosis Comments OUTSIDE ECHO Routine 08/07/2021 OUTSIDE EKG Routine 08/06/2021 documented in this encounter Results * OUTSIDE ECHO (08/07/2021) Provider Abstract CARDIOLOGY * OUTSIDE EKG (08/06/2021) Provider Abstract CARDIOLOGY documented in this encounter Visit Diagnoses Not on filedocumented in this encounter Care Teams Project Development Manager Relationship Specialty Start Date End Date Manan Reinoso PCP - General Internal Medicine 11/23/20 Thea Yoder PA-C Cardiology 04/13/21 Nasir Fry MD Registered Appraiser Cardiovascular Disease 07/21/21 Trina Dc NP Specialist Cardiology 07/21/21 documented as of this encounter
--- OUTSIDE RECORDS SUMMARY | 2025-08-11 08:45 | XMS_ITS | Encounter Summary ---
Author Organization [facility] Address [address] [place] [address] Care Team Providers Care Cassandra Developer Name Role Phone Deepthi Mayes MD Primary Care Provider [phone] [facility], Pcp Primary Care Provider Unavailabl Deepthi Licona MD Primary Care Provider [phone] Manan Reinoso Primary Care Provider Unavailab Thea Graham PA-C Unavailable Unavailab Nasir Mullins MD Unavailable Trina Dc NP Unavailable Unavailab rere Encounter Details Date Type Department Care Team Description 02/12/2019 Orders Only Medical Records [address] [place] [address] 8[address] Modesta Muro, DNP [address] [place] [address] Social History Tobacco Use Types Packs/Day Years [...] Name Priority Date/Time Associated Diagnosis Comments OUTSIDE STRESS TEST Routine 02/10/2019 documented in this encounter Results * OUTSIDE STRESS TEST (02/10/2019) Modesta Bhaskar [facility] documented in this encounter Visit Diagnoses Not on filedocumented in this encounter Care Teams Cassandra Developer Relationship Specialty Start Date End Date Deepthi Mayes MD [address] [place] [address] 6[address] PCP - General Internal Medicine 09/01/15 04/05/19 [facility], [address] [address] PCP - General Internal Medicine 04/06/19 04/14/19 Deepthi Mayes MD [address] [place] [address] 09260 PCP - General Internal Medicine 04/15/19 11/22/20 Manan Reinoso [address] [place], [place] [phone] PCP - General Internal Medicine 11/23/20 Thea Yoder PA-C [address] [place] [address] 82272 Cardiology 04/13/21 Nasir Fry MD [address] [place] [address] 57389 Rod Finisher Cardiovascular Disease 07/21/21 Trina Dc NP [address] [place] [address] 09641 Specialist Cardiology 07/21/21 documented as of this encounter
--- OUTSIDE RECORDS SUMMARY | 2025-08-11 08:45 | XMS_ITS | Encounter Summary ---
Author Organization [facility] Address [address] [place] [address] Care Team Providers Care Senior Accounts Payable Specialist Name Role Phone Manan Reinoso Primary Care Provider Unavailab Thea Graham PA-C Unavailable Unavailab le Nasir Fry MD Unavailable Trina Dc NP Unavailable Unavailab le Reason for Visit * Reason Onset Date Comments DME Request 12/25/2021 Encounter Details Date Type Department Care Team Description 12/25/2021 Telephone Pulmonology - [place] [address] [facility] [address] [place] [address] Eunice Crowell, [facility] [address] [place], [place] [phone] DME Request Social History Tobacco Use Types Packs/Day [...] encounter Miscellaneous Notes * Telephone Encounter - Keena Reina - 12/25/2021 4:23 PM EDT Faxed order received from [employer], please review, sign, date and return. KALANI-12/06/2020 NOV-01/23/2022 documented in this encounter Plan of Treatment Not on file documented as of this encounter Visit Diagnoses Not on filedocumented in this encounter Care Teams Senior Accounts Payable Specialist Relationship Specialty Start Date End Date Manan Reinoso PCP - General Internal Medicine 11/23/20 Thea Yoder PA-C Cardiology 04/13/21 Nasir Fry MD Resident Inspector Cardiovascular Disease 07/21/21 Trina Dc NP Specialist Cardiology 07/21/21 documented as of this encounter
--- OUTSIDE RECORDS SUMMARY | 2025-08-11 08:45 | XMS_ITS | Encounter Summary ---
Author Organization [facility] Address [address] [place] [address] Care Team Providers Care Machine Crater Name Role Phone Manan Reinoso Primary Care Provider Unavailab Thea Graham PA-C Unavailable Unavailab le Nasir Fry MD Unavailable Trina Dc NP Unavailable Unavailab le Encounter Details Date Type Department Care Team Description 05/11/2024 [facility] Medical Records [address] [place] [address] Social History Tobacco Use Types Packs/Day Years [...] on filedocumented in this encounter Care Teams Machine Crater Relationship Specialty Start Date End Date Manan Reinoso PCP - General Internal Medicine 11/23/20 Thea Yoder PA-C Cardiology 04/13/21 Nasir Fry MD Bobbin Inspector Cardiovascular Disease 07/21/21 Trina Dc NP Specialist Cardiology 07/21/21 documented as of this encounter
--- OUTSIDE RECORDS SUMMARY | 2025-08-11 08:45 | XMS_ITS | Encounter Summary ---
Author Organization [facility] Address [address] [place] [address] Care Team Providers Care Medical Aides Teacher Name Role Phone Deepthi Mayes MD Primary Care Provider [phone] Manan Reinoso Primary Care Provider Unavailab Thea Graham PA-C Unavailable Unavailab Nasir Mullins MD Unavailable Trina Dc NP Unavailable Unavailab le Encounter Details Date Type Department Care Team Description 05/07/2019 Cut Filer Report Medical Records [address] [place] [address] 23007 Dinorah Palomo Social History Tobacco Use Types Packs/Day Years [...] on filedocumented in this encounter Care Teams Medical Aides Teacher Relationship Specialty Start Date End Date Deepthi Mayes MD [address] [place], [place] [phone] PCP - General Internal Medicine 04/15/19 11/22/20 Manan Reinoso [address] [place] [address] 20490 PCP - General Internal Medicine 11/23/20 Thea Yoder PA-C [address] [place], [place] [phone] Cardiology 04/13/21 Nasir Fry MD [address] [place] [address] Lacrosse Player Cardiovascular Disease 07/21/21 Trina Dc NP [address] [place] [address] Specialist Cardiology 07/21/21 documented as of this encounter
--- OUTSIDE RECORDS SUMMARY | 2025-08-11 08:45 | XMS_ITS | Encounter Summary ---
Author Organization [facility] Address [address] [place] [address] Care Team Providers Care Supervisor Ovens Name Role Phone Manan Reinoso Primary Care Provider Unavailab Thea Graham PA-C Unavailable Unavailab le Nasir Fry MD Unavailable Trina Dc NP Unavailable Unavailab le Reason for Visit * Reason Onset Date Comments lab test 07/20/2021 Encounter Details Date Type Department Care Team Description 07/20/2021 Telephone Cardio PVCA Diag Testing [address] [facility] [address] [place] [address] Trina Dc NP lab test Social History Tobacco Use Types Packs/Day Years [...] PM EDT documented as of this encounter Miscellaneous Notes * Telephone Encounter - Edna Ayers - 07/21/2021 9:35 AM EDT Spoke to pt, Mailed lab orders to his home. He is aware of Heart Monitor and will wait for the call * Telephone Encounter - Trina Dc NP - 07/20/2021 4:11 PM EDT Please let patient know I ordered Lipid/Liver panel to complete fasting within the next few weeks, just find out where they would like to go so we can fax it or send to their home. Also I ordered a heart monitor for him to wear to look for any irregular HR thanks, they will call to schedule that documented in this encounter Plan of Treatment Not on file documented as of this encounter Visit Diagnoses Not on filedocumented in this encounter Care Teams Supervisor Ovens Relationship Specialty Start Date End Date Manan Reinoso PCP - General Internal Medicine 11/23/20 Thea Yoder PA-C Cardiology 04/13/21 Nasir Fry MD Controller Instructor Cardiovascular Disease 07/21/21 Trina Dc NP Specialist Cardiology 07/21/21 documented as of this encounter
--- OUTSIDE RECORDS SUMMARY | 2025-08-11 08:45 | XMS_ITS | Encounter Summary ---
Author Organization [facility] Address [address] [place] [address] Care Team Providers Care Scientific Informatics Project Leader Name Role Phone Deepthi Mayes MD Primary Care Provider [phone] [facility], Pcp Primary Care Provider UnavailDeepthi Salmon MD Primary Care Provider [phone] Manan Reinoso Primary Care Provider Unavailab Thea Graham PA-C Unavailable Unavailab Nasir Mullins MD Unavailable Trina Dc NP Unavailable Unavailab rere Encounter Details Date Type Department Care Team Description 01/21/2019 Hospital Medical Records [address] [place] [address] Sly Luther DO Social History Tobacco Use Types Packs/Day Years [...] on filedocumented in this encounter Care Teams Scientific Informatics Project Leader Relationship Specialty Start Date End Date Deepthi Mayes MD [address] [place] [address] [phone] PCP - General Internal Medicine 09/01/15 04/05/19 [facility], Pcp [address] [place], [place] [phone] PCP - General Internal Medicine 04/06/19 04/14/19 Deepthi Mayes MD [address] [place] [address] 83604 PCP - General Internal Medicine 04/15/19 11/22/20 Manan Reinoso [address] [place], [place] [phone] PCP - General Internal Medicine 11/23/20 Thea Yoder PA-C [address] [place], [place] [phone] Cardiology 04/13/21 Nasir Fry MD [address] [place] [address] Dog Daycare Provider Cardiovascular Disease 07/21/21 Trina Dc NP [address] [place], [place] [phone] Specialist Cardiology 07/21/21 documented as of this encounter
--- OUTSIDE RECORDS SUMMARY | 2025-08-11 08:45 | XMS_ITS | Encounter Summary ---
Author Organization [facility] Address [address] [place] [address] Care Team Providers Care Underwriting Director Name Role Phone Deepthi Mayes MD Primary Care Provider [phone] [facility], Pcp Primary Care Provider Unavailabl Deepthi Licona MD Primary Care Provider [phone] Manan Reinoso Primary Care Provider Unavailab Thea Graham PA-C Unavailable Unavailab Nasir Mullins MD Unavailable Trina Dc NP Unavailable Unavailab rere Encounter Details Date Type Department Care Team Description 02/20/2016 Wellness Visit Medical Records [address] [place] [address] Deepthi Mayes MD [address] [place] [address] [phone] Social History Tobacco Use Types Packs/Day Years [...] on filedocumented in this encounter Care Teams Underwriting Director Relationship Specialty Start Date End Date Deepthi Mayes MD [address] [place] [address] [phone] PCP - General Internal Medicine 09/01/15 04/05/19 [facility], Pcp [address] [place] [phone] PCP - General Internal Medicine 04/06/19 04/14/19 Deepthi Mayes MD [address] [place] [address] PCP - General Internal Medicine 04/15/19 11/22/20 Manan Reinoso [address] [place], [place] [phone] PCP - General Internal Medicine 11/23/20 Thea Yoder PA-C [address] [place], [place] [phone] Cardiology 04/13/21 Nasir Fry MD [address] [place] [address] Curb Setter Helper Cardiovascular Disease 07/21/21 Trina Dc, JAVI [address] [place] [address]40 Specialist Cardiology 07/21/21 documented as of this encounter
--- OUTSIDE RECORDS SUMMARY | 2025-08-11 08:45 | XMS_ITS | Encounter Summary ---
Author Organization [facility] Address [address] [place] [address] Care Team Providers Care Electrophysiology Technician Name Role Phone Deepthi Mayes MD Primary Care Provider [phone] [facility], Pcp Primary Care Provider Unavailabl Deepthi Licona MD Primary Care Provider [phone] Manan Reinoso Primary Care Provider Unavailab Thea Graham PA-C Unavailable Unavailab Nasir Mullins MD Unavailable Trina Dc NP Unavailable Unavailab rere Encounter Details Date Type Department Care Team Description 02/04/2019 Economics Department Chair Report Medical Records [address] [place] [address]85 Eliecer Goetz NP Social History Tobacco Use Types Packs/Day Years [...] on filedocumented in this encounter Care Teams Electrophysiology Technician Relationship Specialty Start Date End Date Deepthi Mayes MD [address] [place] [address] PCP - General Internal Medicine 09/01/15 04/05/19 [facility], Pcp [address] [place], [place] [phone] PCP - General Internal Medicine 04/06/19 04/14/19 Deepthi Mayes MD [address] [place] [address] 23740 PCP - General Internal Medicine 04/15/19 11/22/20 Manan Reinoso [address] [place], [place] [phone] PCP - General Internal Medicine 11/23/20 Thea Yoder PA-C [address] [place] [address] Cardiology 04/13/21 Nasir Fry MD [address] [place] [address] Weapons Designer Cardiovascular Disease 07/21/21 Trina Dc NP [address] [place], [place] [phone] Specialist Cardiology 07/21/21 documented as of this encounter
--- OUTSIDE RECORDS SUMMARY | 2025-08-11 08:45 | XMS_ITS | Encounter Summary ---
Author Organization [facility] Address [address] [place] [address] Care Team Providers Care Manager Utilization Name Role Phone Deepthi Mayes MD Primary Care Provider [phone] [facility], Pcp Primary Care Provider Unavailabl Deepthi Licona MD Primary Care Provider [phone] Manan Reinoso Primary Care Provider Unavailab Thea Graham PA-C Unavailable Unavailab Nasir Mullins MD Unavailable Trina Dc NP Unavailable Unavailab rere Encounter Details Date Type Department Care Team Description 11/26/2018 Turnstile Collector Report Medical Records [address] [place] [address] Eliecer Goetz NP Social History Tobacco Use [...] filedocumented in this encounter Care Teams Manager Utilization Relationship Specialty Start Date End Date Deepthi Mayes MD [address] [place] [address] PCP - General Internal Medicine 09/01/15 04/05/19 [facility], Pcp [address] [place], [place] [phone] PCP - General Internal Medicine 04/06/19 04/14/19 Deeptih Mayes MD [address] [place] [address] PCP - General Internal Medicine 04/15/19 11/22/20 Manan Reinoso [address] [place], [place] [phone] PCP - General Internal Medicine 11/23/20 Thea Yoder PA-C [address] [place] [address] Cardiology 04/13/21 Nasir Fry MD [address] [place] [address] Bolter Helper Cardiovascular Disease 07/21/21 Trina Dc NP [address] [place], [place] [phone] Specialist Cardiology 07/21/21 documented as of this encounter
--- OUTSIDE RECORDS SUMMARY | 2025-08-11 08:45 | XMS_ITS | Encounter Summary ---
Author Organization [facility] Address [address] [place] [address] Care Team Providers Care Special Distribution Clerk Name Role Phone Deepthi Mayes MD Primary Care Provider [phone] [facility], Pcp Primary Care Provider UnavailDeepthi Salmon MD Primary Care Provider [phone] Manan Reinoso Primary Care Provider Unavailab Thea Graham PA-C Unavailable Unavailab Nasir Mullins MD Unavailable Trina Dc NP Unavailable Unavailab rere Encounter Details Date Type Department Care Team Description 01/20/2016 Transfer Records Medical Records [address] [place] [address] Abstract, Provider Social History Tobacco Use Types [...] on filedocumented in this encounter Care Teams Special Distribution Clerk Relationship Specialty Start Date End Date Deepthi Mayes MD [address] [place] [address] PCP - General Internal Medicine 09/01/15 04/05/19 [facility], Pcp [address] [place] [address] 03016 PCP - General Internal Medicine 04/06/19 04/14/19 Deepthi Mayes MD [address] [place] [address] 03390 PCP - General Internal Medicine 04/15/19 11/22/20 Manan Reinoso [address] [place] [address] 39526 PCP - General Internal Medicine 11/23/20 Thea Yoder PA-C [address] [place] [address] 99537 Cardiology 04/13/21 Nasir Fry MD [address] [place] [address] 28732 M[employer] Miner Cardiovascular Disease 07/21/21 Trina Dc NP [address] [place] [address] 98377 Specialist Cardiology 07/21/21 documented as of this encounter
--- OUTSIDE RECORDS SUMMARY | 2025-08-11 08:45 | XMS_ITS | Encounter Summary ---
Author Organization [facility] Address [address] [place] [address] Care Team Providers Care Act Tutor Name Role Phone Manan Reinoso Primary Care Provider Thea Hernandez PA-C Unavailable Unavailab Nasir Mullins MD Unavailable Trina Dc NP Unavailable Unavailab le Encounter Details Date Type Department Care Team Description 08/28/2021 Hospital Medical Records [address] [place] [id number] [place] [address] Social History Tobacco Use Types Packs/Day Years [...] Name Priority Date/Time Associated Diagnosis Comments OUTSIDE PLAIN FILM Routine 08/28/2021 OUTSIDE LAB Routine 08/28/2021 OUTSIDE LAB Routine 08/28/2021 documented in this encounter Results * OUTSIDE PLAIN FILM (08/28/2021) Provider Abstract RADIOLOGY * OUTSIDE LAB (08/28/2021) Provider Abstract LAB * OUTSIDE LAB (08/28/2021) Provider Abstract LAB documented in this encounter Visit Diagnoses Not on filedocumented in this encounter Care Teams Act Tutor Relationship Specialty Start Date End Date Manan Reinoso PCP - General Internal Medicine 11/23/20 Thea Yoder PA-C Cardiology 04/13/21 Nasir Fry MD Drop Press Hand Cardiovascular Disease 07/21/21 Trina Dc NP Specialist Cardiology 07/21/21 documented as of this encounter
--- OUTSIDE RECORDS SUMMARY | 2025-08-11 08:46 | XMS_ITS | Encounter Summary ---
Author Organization [facility] Address [address] [place] [address] Care Team Providers Care Plaster Pattern Caster Name Role Phone Deepthi Mayes MD Primary Care Provider [phone] [facility], Pcp Primary Care Provider Unavailabl Deepthi Licona MD Primary Care Provider [phone] Manan Reinoso Primary Care Provider Unavailab Thea Graham PA-C Unavailable Unavailab Nasri Mullins MD Unavailable Trina Dc NP Unavailable Unavailab rere Encounter Details Date Type Department Care Team Description 09/05/2015 Release of Information Medical Records [address] [place] [id number] Abstract, Provider Social History Tobacco Use Types Packs/Day Years Used Date Smoking Tobacco: Never Assessed Sex Assigned at Date Recorded Not on file Job Start Date Occupation Industry Not on file Not on file Not on file documented as of this encounter Plan of Treatment Not on file documented as of this encounter Visit Diagnoses Not on filedocumented in this encounter Care Teams Plaster Pattern Caster Relationship Specialty Start Date End Date Deepthi Mayes MD [address] [place] [address] [phone] PCP - General Internal Medicine 09/01/15 04/05/19 [facility], Pcp [address] [place] [address] [phone] PCP - General Internal Medicine 04/06/19 04/14/19 Deepthi Mayes MD [address] [place] [address] [phone] PCP - General Internal Medicine 04/15/19 11/22/20 Manan Reinoso [address] [place] [address] [phone] PCP - General Internal Medicine 11/23/20 Thea Yoder PA-C [address] [place] [address] [phone] Cardiology 04/13/21 Nasir Fry MD [address] [place] [address] 51901 [employer]ner Cardiovascular Disease 07/21/21 Trina Dc, JAVI [address] [place] [address] 7[address]64 Specialist Cardiology 07/21/21 documented as of this encounter
--- OUTSIDE RECORDS SUMMARY | 2025-08-11 08:46 | XMS_ITS | Encounter Summary ---
Author Organization [facility] Address [address] [place] [address] Care Team Providers Care Multiple Tube Winding Machine Operator Name Role Phone Manan Reinoso Primary Care Provider Unavailab Thea Graham PA-C Unavailable Unavailab le Nasir Fry MD Unavailable Trina Dc NP Unavailable Unavailab le Encounter Details Date Type Department Care Team Description 02/03/2021 Inspector Boiler Report Medical Records [address] [place] [address] Tyson Cai MD Social History Tobacco Use [...] on filedocumented in this encounter Care Teams Multiple Tube Winding Machine Operator Relationship Specialty Start Date End Date Manan Reinoso PCP - General Internal Medicine 11/23/20 Thea Yoder PA-C Cardiology 04/13/21 Nasir Fry MD Die Maintenance Technician Cardiovascular Disease 07/21/21 Trina Dc NP Specialist Cardiology 07/21/21 documented as of this encounter
--- OUTSIDE RECORDS SUMMARY | 2025-08-11 08:46 | XMS_ITS | Encounter Summary ---
Author Organization [facility] Address [address] [place] [address] Care Team Providers Care Commercial Loan Collection Officer Name Role Phone Community, Pcp Primary Care Provider UnavailJeb Acosta MD Primary Care Provider [phone] Deepthi Mayes MD Primary Care Provider [phone] [facility] Primary Care Provider UnavailDeepthi Salmon MD Primary Care Provider [phone] Manan Reinoso Primary Care Provider Unavailab Manan Vasquez Primary Care Provider Unavailab Thea Graham PA-C Unavailable Unavailab Nasir Mullins MD Unavailable Trina Dc NP Unavailable Unavailab le Reason for Visit * Reason Comments TEST RESULTS DR. SALHE Encounter Details Date Type Department Care Team Description 08/03/2004 Telephone General Surgery [address] [place] [address]11 Quin Saleh MD TEST RESULTS (DR. SALEH) Social History Tobacco Use Types Packs/Day Years Used Date Smoking Tobacco: Never Assessed Sex Assigned at Date Recorded Not on file Job Start Date Occupation Industry Not on file Not on file Not on file documented as of this encounter Miscellaneous Notes * Telephone Encounter - 08/03/2004 10:23 AM ESTCALL RECEIVED. Contact: work [phone] TEST RESULTS TYPE OF TEST:BIOPSY-LESION ON RGHT BREAST DATE:52 FACILITY:[facility] WHO ORDERED THIS TEST?DR. SALEH IS THE DOCTOR HERE TODAY?: YES CAN THE MESSAGE WAIT UNTIL THE DOCTOR RETURNS?: YES IF PATIENT'S PCP IS NOT IN, INSTRUCT PATIENT THAT THEY WILL RECEIVE A CALL BACK WHEN THE PCP IS IN T HE OFFICE NEXT. ANY URGENT OR ABNORMAL RESULTS WIILL RESULT IN A CALL BACK TO PATIENT ESME. documented in this encounter Plan of Treatment Not on file documented as of this encounter Visit Diagnoses Not on filedocumented in this encounter Care Teams Commercial Loan Collection Officer Relationship Specialty Start Date End Date Community, Pcp PCP - General 10/15/08 03/19/13 Jeb Kruger MD [address] [place] [address] 13712 PCP - General 04/09/00 10/14/08 Deepthi Mayes MD [address] [place] [address] 63927 PCP - General Internal Medicine 09/01/15 04/05/19 [facility] PCP - General Internal Medicine 04/06/19 04/14/19 Deepthi Mayes MD [address] [place] [address] 66868 PCP - General Internal Medicine 04/15/19 11/22/20 Manan Reinoso [address] [place] [address] 46684 PCP - General 03/20/13 08/31/15 Manan Reinoso [address] [place] [address] 35023 PCP - General Internal Medicine 11/23/20 Thea Yoder PA-C [address] [place] [address] 95824 Cardiology 04/13/21 Nasir Fry MD [address] [place] [address] 64186 Legal Activity Adjudicator Cardiovascular Disease 07/21/21 Trina Dc, JAVI [address] [place] [address]13 Specialist Cardiology 07/21/21 documented as of this encounter
--- OUTSIDE RECORDS SUMMARY | 2025-08-11 08:46 | XMS_ITS | Patient Health Record ---
Author Organization [facility] Address [address] [facility] [place] [address] Care Team Providers Care Lead Operator Name Role Phone Pollo Thurston Primary Care Provider Andrzej Ramirez Unavailable [phone] Allergies No Known Allergies Results Component Value [...] Problem Acquired hammer toe of right foot (7467518436666130 ) Other hammer toe(s) (acquired), right foot (M20.41) Active confirmed Response to treatment, Improvemen t Problem Acquired hammer toe of left foot (1860327161928988 ) Other hammer toe(s) (acquired), left foot (M20.42) Active confirmed Response to treatment, Improvemen t Problem Polyneuropathy due to diabetes mellitus type I (552522894) Type 1 diabetes mellitus with diabetic polyneuropathy (E10.42) Active confirmed Problem Skin ulcer of toe of right foot with fat layer exposed (L97.512) Active confirmed Vital Signs Blood pressure diastolic 67 mm Hg 05/18/2025 Height 5ft8in in 05/18/2025 Blood pressure systolic 129 mm Hg 05/18/2025 Weight 240 lbs 05/18/2025 BMI 36.49 kg/m2 05/18/2025 Procedures Procedure Date Ordered Date Performed Result Body Sit e 85322-ZVQSEPY NAIL, 1-5 11/03/2024 N/A 46262-WSLH SKIN LESIONS, OVER 4 11/03/2024 N/A A5331-OKXCWUFB DYSTROPHIC NAILS ANY # 11/03/2024 N/A 31113-FRTHVYY NAIL, 1-5 02/09/2025 N/A 61368-KGXG SKIN LESIONS, OVER 4 02/09/2025 N/A S5912-DAHQGSRX DYSTROPHIC NAILS ANY # 02/09/2025 N/A 21990-JJQZLHQ NAIL, 1-5 05/18/2025 N/A 96993-TQUW SKIN LESIONS, OVER 4 05/18/2025 N/A R3659-CEFSVZKQ DYSTROPHIC NAILS ANY # 05/18/2025 N/A Encounters Encounter Location Date Provider Diagnosis [address] [phone] 11/03/2024 Andrzejjuan miguel DailyRaman Type 1 diabetes mellitus with diabetic polyneuropathy E10.42 ; Tinea unguium B35.1 ; Other hammer toe(s) (acquired), right foot M20.41 and Other hammer toe(s) (acquired), left foot M20.[address] [phone] 02/09/2025 Andrzej Raman Type 1 diabetes mellitus with diabetic polyneuropathy E10.42 ; Tinea unguium B35.1 and Xerosis of skin L85.[address] [address] 05/18/2025 Andrzej Dailyunier Type 1 diabetes mellitus [...] X ray : Foot, left 3V 12/05/2022 78980-QOHPDZZ NAIL, 1-5 11/03/2024 98351-EZKJJOG NAIL, 1-5 02/09/2025 12852-AMOPZEA NAIL, 1-5 07/28/2024 35926-XYTDOOS NAIL, 1-5 05/18/2025 29864-TEYYUNG SKIN/TISSUE 12/05/2022 14748-AWFQKUM SKIN/TISSUE 01/09/2023 42139-GVVY SKIN LESIONS, OVER 4 02/08/20 23 28622-XSFB SKIN LESIONS, OVER 4 12/06/19 23 15633-LWVV SKIN LESIONS, OVER 4 07/28/20 24 71600-CZPF SKIN LESIONS, OVER 4 05/18/20 25 34189-DBFY SKIN LESIONS, OVER 4 11/03/19 25 43247-TNGR SKIN LESIONS, OVER 4 02/10/20 25 T1275-TUSOCYRX DYSTROPHIC NAILS ANY # U9234-QDUOARUH DYSTROPHIC NAILS ANY # P4028-WQBGZTEV DYSTROPHIC NAILS ANY # R8803-YWGHPUJF DYSTROPHIC NAILS ANY # A0047-RXNDBFSX DYSTROPHIC NAILS ANY # Q5120-YBYJYKZH DYSTROPHIC NAILS ANY # Next Appt Details Provider Name:Andrzej Camargo , 2025 10:00:00 AM, [address] [place] [address], [phone], Insurance Providers Payer Name Payer Address Payer Phone Subscriber Number Group Number Insured Name Patient Relationship to Insured Coverage Start Date Coverage End Date [employer] PPO [address] [place] [phone] [id number] Kirby Christianson Self - patient is the insured Medical (General) History Medical History History ICD Code Back,Hip,and Knee pain Diabetic type ll Poor circulation Stroke Surgical History Surgery Date(Month/Year) back surgery- Spine L5 03/06 cataract surgery appendectomy right leg [place] [facility] [place]24 teeth extraction 05/10 Hospitalization History Reason Date(Month/Year)
--- OUTSIDE RECORDS SUMMARY | 2025-08-11 08:46 | XMS_ITS | Clinical Summary ---
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 [employer] Name Role Phone Pollo Thurston MD Primary Care Provider [phone] Allergies Active Allergy Reactions Criticality Noted Date [...] Date Diagnosed Date Osteomyelitis of right foot ([facility] V24, [facility]/ C V28) 06/02/2025 Type 2 diabetes mellitus wit h foot ulcer (CODE) ([facility] V24, [facility] V28) 03/03/2025 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 right foot with fat layer exposed ([facility] V24, [facility] V28) 03/03/2025 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 right lower leg with fat layer exposed ([facility] V24, [facility] V28) 08/04/2024 Diabetes mellitus due to und erlying condition with diabetic autonomic neuropathy ([facility] V24, [facility] V28) 08/04/2024 Corns and callosities 08/04/2024 Chronic venous hypertension (idiopathic) with ulcer and inflammation of right lower extremity ([facility] V24, [facility] V28) 08/04/2024 History of colon polyps 11/19/2023 Overview (11/19/2023): 10/20/2015 Dyspnea on exertion 09/27/2021 Cerebrovascular accident (CVA) ([facility] V24, [facility] /[facility] V28) 04/13/2021 [...] Doxazosin was decreased as well Pulmonary embolism ([facility] V24, [facility] V28) Osteomyelitis of toe of righ t foot ([facility] V24, [facility] V28) 06/04/2019 CKD (chronic kidney disease) stage 3, GFR 30-59 ml/min ([facility] V24, [facility] V28) 04/08/2019 Microalbuminuria 04/08/2019 Chronic back pain 11/03/2018 Coronary artery disease invo lving nulato coronary artery of [place] heart without angina pectoris 10/01/2017 Overview (11/19/2023): Last Assessment & Plan: No ischemic or heart failure symptoms. 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 ([facility] V24, [facility] V28) 10/31/2016 Osteoarthritis of spine with radiculopathy, lumb ar region 10/31/2016 Obstructive sleep apnea 01/24/2016 [place] (11/19/2023[place] [facility] [place]: Date 12/10/2017; SE 77%; [...] by 2018 diagnostic polysomnogram. Background diabetic retinopathy ([facility] V24, [facility] V28) 10/20/2015 Depressive disorder 10/20/2015 Diabetic neuropathy [place] [place], [facility] V28) 0 10/20/2015 DM (diabetes mellitus), type 2 with ophthalmic complications ([facility] V24, [facility] [place]) 10/20/2015 Type 2 diabetes mellitus wit h neurological manifestations ([facility] [place], [facility] V28) 10/20/2015 Diverticulosis 10/20/2015 Overview [...] goal LDL is less than 70. [place] (myocardial infarction) 10/07/2015 Overview (11/19/2023): stentsx2, one in 2003 and RCA stent 04/25 Type 2 diabetes mellitus wit h renal manifestations (CMS/HCC V24, CMS/HCC V28) 10/07/2015 Encounters Date Type Department Care Team Description 08/10/2025 10:00 AM EST Office Visit [facility] [address] [place] [phone] Sly Welch PA Type 2 diabetes mellitus with foot ulcer (CODE) (CMS/HCC V24, CMS/HCC V28) (Primary Dx); Non-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 layer exposed (CMS/HCC V24, CMS/HCC V28); Diabetic polyneuropathy associated with type 2 diabetes mellitus (CMS/HCC V24, CMS/HCC V28); Other chronic osteomyelitis of right foot (CMS/HCC V24, CMS/HCC V28) 08/03/2025 1:15 PM EST Office Visit [facility] [address] [place] [phone] Sly Welch PA Type 2 diabetes mellitus with foot ulcer (CODE) (CMS/HCC V24, CMS/HCC V28) (Primary Dx); Non-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 layer exposed (CMS/HCC V24, CMS/HCC V28); Diabetic polyneuropathy associated with type 2 diabetes mellitus (CMS/HCC V24, CMS/HCC V28); Other chronic osteomyelitis of right foot (CMS/HCC V24, CMS/HCC V28) 07/27/2025 2:00 PM EST Office Visit [facility] [address] [place] [phone] Sly Welch PA Type 2 diabetes mellitus with foot ulcer (CODE) (CMS/HCC V24, CMS/HCC V28) (Primary Dx); Non-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 layer exposed (CMS/HCC V24, CMS/HCC V28); Diabetic polyneuropathy associated with type 2 diabetes mellitus (CMS/HCC V24, CMS/HCC V28); Other chronic osteomyelitis of right foot (CMS/HCC V24, CMS/HCC V28) 07/20/2025 2:30 PM EST Office Visit [facility] [address] [place] [phone] Sergio Rodriguez MD Type 2 diabetes mellitus with foot ulcer (CODE) (CMS/HCC V24, CMS/HCC V28) (Primary Dx); Non-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 layer exposed (CMS/HCC V24, CMS/HCC V28); Diabetic polyneuropathy associated with type 2 diabetes mellitus (CMS/HCC V24, CMS/HCC V28); Other chronic osteomyelitis of right foot (CMS/HCC V24, CMS/HCC V28) 07/13/2025 2:45 PM EDT Office Visit [facility] [address] [place] [phone] Sly Welch PA Type 2 diabetes mellitus with foot ulcer (CODE) (CMS/HCC V24, CMS/HCC V28) (Primary Dx); Non-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 layer exposed (CMS/HCC V24, CMS/HCC V28); Diabetic polyneuropathy associated with type 2 diabetes mellitus (CMS/HCC V24, CMS/HCC V28); Other chronic osteomyelitis of right foot (CMS/HCC V24, CMS/HCC V28) 07/08/2025 3:15 PM EDT Office Visit [facility] [address] [place] [phone] Sly Welch PA Type 2 diabetes mellitus with foot ulcer (CODE) (CMS/HCC V24, CMS/HCC V28) (Primary Dx); Non-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 layer exposed (CMS/HCC V24, CMS/HCC V28); Diabetic polyneuropathy associated with type 2 diabetes mellitus (CMS/HCC V24, CMS/HCC V28); Other chronic osteomyelitis of right foot (CMS/HCC V24, CMS/HCC V28) 07/01/2025 3:15 PM EDT Office Visit [facility] [address] [place] [phone] Sly Welch PA Type 2 diabetes mellitus with foot ulcer (CODE) (CMS/HCC V24, CMS/HCC V28) (Primary Dx); Non-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 layer exposed (CMS/HCC V24, CMS/HCC V28); Diabetic polyneuropathy associated with type 2 diabetes mellitus (CMS/HCC V24, CMS/HCC V28); Other chronic osteomyelitis of right foot (CMS/HCC V24, CMS/HCC V28) 06/24/2025 3:30 PM EDT Office Visit [facility] [address] [place] [phone] Sergio Rodriguez MD Type 2 diabetes mellitus with foot ulcer (CODE) ([facility] V24, CMS/[facility] V28) (Primary Dx); Non-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 layer exposed (CMS/HCC V24, CMS/[facility] V28) 06/17/2025 3:15 PM EDT Office Visit [facility] [address] [place] [phone] Sly Welch PA Type 2 diabetes mellitus with foot ulcer (CODE) ([facility] V24, CMS/[facility] V28) (Primary Dx); Non-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 layer exposed (CMS/HCC V24, CMS/HCC V28) 06/09/2025 2:45 PM EDT Office Visit [facility] [address] [place] [phone] Sly Welch PA Type 2 diabetes mellitus with foot ulcer (CODE) ([facility] V24, [facility] V28) (Primary Dx); Non-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 layer exposed ([facility] V24, CMS/[facility] V28); Diabetic polyneuropathy associated with type 2 diabetes mellitus (CMS/HCC V24, CMS/HCC V28); Other chronic osteomyelitis of right foot (CMS/HCC V24, CMS/[facility] V28) 06/07/2025 Telephone [facility] [address] [place] [phone] Keena Zamora RN 06/02/2025 11:30 AM EDT Office Visit [facility] [address] [place] [address] [phone] Sly Welch PA Type 2 diabetes mellitus with foot ulcer (CODE) ([facility] V24, [facility] V28) (Primary Dx); Non-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 layer exposed ([facility] V24, CMS/HCC V28); Diabetic polyneuropathy associated with type 2 diabetes mellitus ([facility]/HCC V24, CMS/HCC V28); Other chronic osteomyelitis of right foot (CMS/HCC V24, CMS/HCC V28) 05/29/2025 8:53 AM EDT - 05/29/2025 11:59 PM EDT Hospital Encounter [facility] [address] [place] [phone] Type 2 diabetes mellitus with foot ulcer (CODE) ([facility] V24, [facility] V28); Non-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 layer exposed ([facility] V24, [facility] V28); Diabetic polyneuropathy associated with type 2 diabetes mellitus ([facility] V24[facility] V28) Discharge Disposition: Home or Self Care 05/20/2025 Telephone [facility] [address] [place] [phone] Mireille Yan RN 05/19/2025 1:18 PM EDT - 05/19/2025 11:59 PM EDT Hospital Encounter [facility] Xray [address] [place] [phone] Type 2 diabetes mellitus with foot ulcer (CODE) ([facility] V24, [facility] V28); Non-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 layer exposed ([facility] V24[facility] V28); Diabetic polyneuropathy associated with type 2 diabetes mellitus ([facility] V24[facility] V28) Discharge Disposition: Home or Self Care 05/19/2025 12:30 PM EDT Office Visit [facility] [address] [place] [phone] Sly Welch PA Type 2 diabetes mellitus with foot ulcer (CODE) ([facility] V24, [facility] V28) (Primary Dx); Non-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 layer exposed [place] [place] [facility] [place] Diabetic polyneuropathy associated with type 2 diabetes mellitus ([facility] [place], [facility] V28) from Last [...] Date Comments Coronary artery disease invo lving nulato coronary artery with other forms of angina pectoris 10/07/2015 DX:Coronary artery disease involving n[place] coronary artery with other forms of angina pectoris; COMMENT: stentsx2, no details, one in 2001, another 2004 BPH (benign prostatic hyperplasia) 10/07/2015 DX:BPH (benign prostatic hyperplasia) Hypercholesteremia 10/07/2015 DX:Hyperchole steremia Erectile dysfunction 10/17/2015 DX:Erectile dysfunction HTN (hypertension) 10/20/2015 DX:HTN (hyper tension) Onychomycosis 10/20/2015 DX:Onychomycosis Background diabetic retinopa thy ([facility] [place], [facility] [place]) 10/20/2015 DX:Background diabetic reti nopathy (HCC) DM (diabetes mellitus), type 2 with ophthalmic complications ([facility] [place], [facility] [place]) 10/20/2015 DX:DM (diabetes mellitus), t ype 2 with ophthalmic complications (HCC) [place] (myocardial infarction) 10/07/2015 D X:[place] (myocardial infarction); COMMENT: stentsx2, no details, one in 2001, another 2004 Diverticulosis 10/20/2015 DX:Diverticulosi s; COMMENT: CN 2011 Depressive disorder 10/20/2015 DX:Depressiv e disorder GERD (gastroesophageal reflux disease) 10/20/2015 DX:GERD (gastroesophageal reflux disease) History of colon polyps 10/20/2015 DX:Histo ry of colon polyps; COMMENT: Type not specified in transfer notes Type 2 diabetes mellitus wit h vascular disease ([facility] [place], [facility] [place]) 10/07/2015 DX:Type 2 diabetes mellitus with vascular disease (HCC) Diabetic neuropathy ([facility] [place], [facility] [place]) 10/20/2015 DX:Diabetic neuropathy (HCC) Type 2 diabetes mellitus wit h neurological manifestations ([facility] [place], [facility] [place]) 10/20/2015 DX:Type 2 diabetes mellitus with neurological manifestations (HCC) Type 2 diabetes mellitus wit h renal manifestations ([facility] [place], [facility] [place]) 10/07/2015 DX:Type 2 diabetes mellitus with renal manifestations ([facility]) Microalbuminuria 04/08/2019 DX:Microalbumin uria CKD (chronic kidney disease) stage 3, GFR 30-59 ml/min ([facility] [place], [facility] [place]) 04/08/2019 DX:CKD (chronic kidney disea se) stage 3, GFR 30-59 ml/min ([facility]) Family History Medical History Relation Name Comments Diabetes Father Heart attack Mother at age 63 Heart attack Sister 1 at age 63 with heart condition, ?not [place] Diabetes Sister 2 Relation Name Status Comments [...] Description 08/17/2025 1:15 PM EST Clinical Support [facility] [address] [place] [phone] 08/23/2025 1:30 PM EST Ancillary Procedure [facility] [address] Harjinder [address] [place] [phone] 08/24/2025 1:15 PM EST Clinical Support [facility] [address] [place] [phone] 08/31/2025 9:15 AM EST Clinical Support [facility] [address] [place] [phone] 09/07/2025 1:30 PM EST Clinical Support [facility] [address] [place] [phone] 09/14/2025 1:45 PM EST Clinical Support [facility] [address] [place] [phone] Health Maintenance Due Date Last Done Comments [...] 2 diabetes mellitus with foot ulcer (CODE) ([facility] V24, [facility] V28) Non-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 layer exposed ([facility] V24, [facility] V28) DEBRIDEMENT Routine 08/10/2025 10:00 AM EST Type 2 diabetes mellitus with foot ulcer (CODE) ([facility] V24, [facility] V28) Non-pressure chronic ulcer [...] Consent given by: Patient Risks discussed: [place] protocol: Procedure explained and questions answered to patient or proxy's satisfaction: yes Patient identity confirmed: Verbally with patient Anesthesia (see MAR for exact dosages): Anesthesia method: None Procedure details: Product applied: Epicord Product lot #: [id number] Product expiration: 09/16/2029 Saline lot #: [id number] [...] Consent given by: Patient Risks discussed: [place] protocol: Procedure explained and questions answered to patient or proxy's satisfaction: yes Patient identity confirmed: Verbally with patient Anesthesia (see MAR for exact dosages): Anesthesia method: None Procedure details: Product applied: Epicord Product lot #: [id number] Product expiration: 09/16/2029 Saline lot #: [id number] [...] PM Performed by: LAVON Moe Authorized by: LAOVN Moe Associated wounds: Wound Diabetic Ulcer 03/03/25 Toe D1, Great Right Consent: Consent obtained: Verbal Consent given by: Patient Risks discussed: [place] protocol: Procedure explained and questions answered to patient or proxy's satisfaction: yes Patient identity confirmed: Verbally with patient Anesthesia (see MAR for exact dosages): Anesthesia method: None Procedure details: Product applied: Epicord Product lot #: [id number] Product expiration: 09/16/2029 Amount used (cm^2): 2 [...] LAB HEMETOLOGY METHOD 06/02/2025 2:20 PM EDT [facility] RBC 4.10(L) 4.50 - 5.50 M/mcL LAB HEMETOLOGY METHOD 06/02/2025 2:20 PM EDT [facility] Hemoglobin 12.1(L) 13.5 - 17.5 g/dL [facility] Hematocrit 36.8(L) 42.0 - 54.0 % LAB HEMETOLOGY METHOD 06/02/2025 2:20 PM EDT [facility] MCV 88.9 79.0 - 98.0 FL LAB HEMETOLOGY METHOD 06/02/2025 2:20 PM EDT [facility] MCH 29.2 27.0 - 32.0 pcg LAB HEMETOLOGY METHOD 06/02/2025 2:20 PM EDT [facility] MCHC 32.9 32.0 - 37.0 g/dL LAB HEMETOLOGY METHOD 06/02/2025 2:20 PM EDT [facility] RDW 13.6 11.0 - 15.0 % LAB HEMETOLOGY METHOD 06/02/2025 2:20 PM EDT [facility] Platelets 229 130 - 400 K/mcL LAB HEMETOLOGY METHOD 06/02/2025 2:20 PM EDT [facility] MPV 11.4(H) 7.0 - 11.0 FL LAB HEMETOLOGY METHOD 06/02/2025 2:20 PM EDT [facility] NRBC 0.0 <1.0 % LAB HEMETOLOGY METHOD 06/02/2025 2:20 PM EDT [facility] NRBC Absolute 0.00 <0.10 K/mcL LAB HEMETOLOGY METHOD 06/02/2025 2:20 PM EDT [facility] Neutrophils Relative 60.7 % LAB HEMETOLOGY METHOD 06/02/2025 2:20 PM EDT [facility] Lymphocytes Relative 22.4 % LAB HEMETOLOGY METHOD 06/02/2025 2:20 PM EDT [facility] Monocytes Relative 10.9 % LAB [facility]ETOLOGY [facility] Eosinophils Relative 5.1 % LAB HEMETOLOGY METHOD 06/02/2025 2:20 PM EDT [facility] Basophils Relative 0.4 % LAB HEMETOLOGY METHOD 06/02/2025 2:20 PM EDT [facility] Immature Granulocytes Relative 0.5 % LAB HEMETOLOGY METHOD 06/02/2025 2:20 PM EDT [facility] Neutrophils Absolute 4.61 1.50 - 7.00 K/mcL LAB HEMETOLOGY METHOD 06/02/2025 2:20 PM EDT [facility] Lymphocytes Absolute 1.70 1.00 - 5.00 K/mcL LAB HEMETOLOGY METHOD 06/02/2025 2:20 PM EDT [facility] Monocytes Absolute 0.83 0.20 - 1.00 K/mcL LAB HEMETOLOGY METHOD 06/02/2025 2:20 PM EDT [facility] Eosinophils Absolute 0.39 0.00 - 0.50 K/[facility] LAB HEMETOLOGY METHOD 06/02/2025 2:20 PM EDT [facility] Basophils Absolute 0.03 0.00 - 0.20 K/[facility] LAB HEMETOLOGY METHOD 06/02/2025 2:20 PM EDT [facility] Immature Granulocytes Absolute 0.04(H) 0.00 - 0.03 K/[facility] LAB HEMETOLOGY METHOD 06/02/2025 2:20 PM EDT [facility] Blood Venous blood specimen / Unknown Venipuncture / Unknown 06/02/2025 12:23 PM EDT 06/02/2025 2:07 PM EDT [facility] LAB BLOOD ORDERABLES Final Result Performing Organization Address City/[facility]/ZIP Co de Phone Number [facility] [address] [place] [address], [place] [phone] * Sedimentation rate (06/02/2025 12:23 PM EDT) Sed Rate 16 0 - 20 mm/hr LAB HEMETOLOGY METHOD 06/02/2025 2:25 PM EDT [facility] Blood Venous blood specimen / Unknown Venipuncture / Unknown 06/02/2025 12:23 PM EDT 06/02/2025 2:07 PM EDT [facility] LAB BLOOD ORDERABLES Final Result [facility] [address] [place] [address], [place] [phone] * (ABNORMAL) C-reactive protein (06/02/2025 12:23 PM EDT) [facility] C-Reactive Protein 0.84(H) <=0.50 mg/dL LAB CHEMISTRY METHOD 06/02/2025 3:49 PM EDT [facility] Blood Venous blood specimen / Unknown Venipuncture / Unknown 06/02/2025 12:23 PM EDT 06/02/2025 2:07 PM EDT [facility] LAB BLOOD ORDERABLES Final Result [facility] [address] [place] [address], * (ABNORMAL) Basic metabolic panel (06/02/2025 12:23 PM EDT) [facility] Sodium 136 133 - 145 mmol/L LAB CHEMISTRY METHOD 06/02/2025 3:48 PM [facility] Potassium 4.2 3.5 - 5.5 mmol/L LAB CHEMISTRY METHOD 06/02/2025 3:48 PM [facility] Chloride 104 96 - 110 mmol/L LAB CHEMISTRY METHOD 06/02/2025 3:48 PM [facility] CO2 27 21 - 32 mmol/L LAB CHEMISTRY METHOD 06/02/2025 3:48 PM [facility] Anion Gap 5 3 - 11 LAB CHEMISTRY METHOD 06/02/2025 3:48 PM [facility] Glucose 174(H) 70 - 100 mg/dL LAB CHEMISTRY METHOD 06/02/2025 3:48 PM [facility] [facility] BUN 24 5 - 25 mg/dL LAB CHEMISTRY METHOD 06/02/2025 3:48 PM [facility] Creatinine 1.33(H) 0.70 - 1.30 mg/dL LAB CHEMISTRY [facility]/02[facility]2025 3[facility] eGFR 57(L) >=60 mL/min/1. 73m2 LAB CHEMISTRY METHOD 06/02/2025 3:48 PM EDT [facility] Comment:Calculation based on the Chronic Kidney Disease Epidemiology Collaboration (CKD-EPI) equation refit without adjustment for race. BUN/Creatinine Ratio 18.0 LAB CHEMISTRY METHOD 06/02/2025 3:48 PM EDT [facility] Calcium 8.8 8.5 - 10.5 mg/dL LAB CHEMISTRY METHOD 06/02/2025 3:48 PM EDT [facility] Blood Venous blood specimen / Unknown Venipuncture / Unknown 06/02/2025 12:23 PM EDT 06/02/2025 2:07 PM EDT [facility] BLOOD ORDERABLES Final Result [facility] [address] [place] [address], * (ABNORMAL) Culture wound with gram stain (06/02/2025 12:05 PM EDT) Culture, Wound Methicillin-Resista nt Staphylococcus aureus(A) ARIANA 06/05/2025 10:52 AM EDT [facility] Comment: The organism value for this result has been updated. These results have been appended to the previously preliminary verified report. Edited result: Previously reported as Staphylococcus aureus on 06/04/2025 at 1244 EDT. Culture, Wound Morganella morganii ssp morganii(A) ARIANA 06/05/2025 10:52 AM EDT [facility] Comment: The organism value for this result has been updated. These results have been appended to the previously preliminary verified report. This is an edited result. Previous organism was Gram negative bacilli on 06/04/2025 at 1244 EDT. Culture, Wound Streptococcus beta-hemolytic Group G(A) ARIANA 06/05/2025 10:52 AM EDT [facility] Comment: Susceptibility testing is not [...] No organisms noted 06/05/2025 10:52 AM EDT [facility] Swab Structure of right foot [...] <=0.25 ug/ml: Susceptible Methicillin-Resistant Staphylococcus aureus Clindamycin ARINAA <=0.25 ug/ml: Susceptible Methicillin-Resistant Staphylococcus aureus Linezolid [...] LAB MICROBIOLOGY - GENERAL ORDERABLES Final Result [facility] [address] [place] [address], * Debridement Diabetic Ulcer Right Toe D1, [...] Signed Date: 05/31/2025 03:29 ET Workstation ID: [id number] Transcribed By: Self Edit Transcribed Date: 05/31/2025 [...] enhancementafter intravenous contrast administration. Nonspecific area of [id number], T2 fat sat hyperintense signal along the [...] Signed Date: 05/31/2025 03:29 ET Workstation ID: [id number] Transcribed By: Self Edit Transcribed Date: 05/31/2025 03:21 ET us [facility] MRI PROCEDURES Final Re sult * XR Foot 3+ Views Right (05/19/2025 1:27 PM EDT) Anatomical Region Laterality Modality Lower Extremities, Foot Right [facility] 05/20/2025 7:57 AM EDT Impressions 05/20/2025 7:59 AM EDT No fracture or dislocation. Thinning of the cortex of the medial aspect of the first distal phalanx which could represent early osteomyelitis. More definitive evaluation with radionuclide bone scan should be considered if clinically warranted. Code 04228 -------- FINAL REPORT -------- Dictated By: Eddie Jose Dictated Date: 05/20/2025 07:57 ET Assigned Physician: Eddie Jose Reviewed and Electronically Signed By: Eddie Jose Signed Date: 05/20/2025 07:59 ET Workstation ID: [id number] Transcribed By: Self Edit Transcribed Date: 05/20/2025 [...] scan should be considered ifclinically warranted. Code 88977 -------- FINAL REPORT -------- Dictated By: Eddie Jose Dictated Date: 05/20/2025 07:57 ET Assigned Physician: Eddie Jose Reviewed and Electronically Signed By: Eddie Jose Signed Date: 05/20/2025 07:59 ET Workstation ID: [id number] Transcribed By: Self Edit Transcribed Date: 05/20/2025 [...] Date Last Indicated MRSA 06/02/2025 06/02/2025 Insurance ([employer]) [address] [place] [id number] [employer] MEDICARE ADVANTAGE MEDICAID - [place] Advance Directives Documents on File Type Date Recorded Patient Mobile Service Rv Technician Expl anation Health Care Decision (hx) [...] (hx) 01/17/2021 AD WATKINS DIRECTIVE Care Teams 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
--- OUTSIDE RECORDS SUMMARY | 2025-08-11 08:46 | XMS_ITS | Encounter Summary ---
Author Organization [facility] Address [address] [place] [address] Care Team Providers Care Forest Examiner Name Role Phone Deepthi Mayes MD Primary Care Provider [facility], Pcp Primary Care Provider Unavailabl Deepthi Licona MD Primary Care Provider [phone] Manan Reinoso Primary Care Provider Unavailab Thea Graham PA-C Unavailable Unavailab Nasir Mullins MD Unavailable Trina Dc NP Unavailable Unavailab le Reason for Visit * Reason Onset Date Comments Provider Call Back 07/24/2017 Hip Pain 07/24/2017 Encounter Details Date Type Department Care Team Description 07/24/2017 Telephone Physiatry - [address] [phone] Sammy Bellamy DO Provider Call Back; Hip Pain Social History Tobacco Use Types Packs/Day Years [...] encounter Miscellaneous Notes * Telephone Encounter - Maria Isabel Mccord M.A. - 07/25/2017 9:21 AM EST Recent operation on knee, he is suppose to be in but currently in [place] for another 2 weeks. He has been doing knee exercises, but not too much core strengthening he made an follow up appointment with Dr Bellamy, to further discuss his treatment options, * Telephone Encounter - Sammy Bellamy - 07/25/2017 8:08 AM EST His last MRI was pretty much non-surgical. We could consider another MRI, and if appropriate, referto spinal surgeon. He was successful with weight loss. Now he needs to work aggressively on his core strengthening. We could also try facet joint injections, he hasn't had them before and if helpful,radiofrequency neurotomy could be considered. But if his pain is facet mediated, he really has to work on his core strengthening. * Telephone Encounter - Maria Isabel Mccord M.A. - 07/24/2017 4:05 PM EST Please review and advise * Telephone Encounter - Thom Maynard - 07/24/2017 3:41 PM EST Patient was seen by on 07/05/17 for a lumbar epidural injection. Patient states he is notsure what to do at this point because the injections are no longer helping. The last injection patient had relief for 4 days. The pain returned and got worse. He has been taken Ibprofen for the pain and it is not helping. Patient is currently in [place] for 2 weeks and he will return after Thanksgiving, he wants to know what he should do at this point for the pain. Please call patient thank you documented in this encounter Plan of Treatment Not on file documented as of this encounter Visit Diagnoses Not on filedocumented in this encounter Care Teams Forest Examiner Relationship Specialty Start Date End Date Deepthi Mayes MD [address] [place] [address] PCP - General Internal Medicine 09/01/15 04/05/19 [facility], Pcp [address] [place] [address] 269[address] PCP - General Internal Medicine 04/06/19 04/14/19 Deepthi Mayes MD [address] [place] [address] PCP - General Internal Medicine 04/15/19 11/22/20 Manan Reinoso [address] [place] [address] PCP - General Internal Medicine 11/23/20 Thea Yoder PA-C [address] [place] [address] Cardiology 04/13/21 Nasir Fry MD [address] [place] [phone] Life Insurance Underwriter Cardiovascular Disease 07/21/21 Trina Dc, JAVI [address] [place] [address] Specialist Cardiology 07/21/21 documented as of this encounter
--- OUTSIDE RECORDS SUMMARY | 2025-08-11 08:46 | XMS_ITS | Encounter Summary ---
Author Organization [facility] Address [address] [place] [address] Care Team Providers Care Chief I Dispatcher Name Role Phone Deepthi Mayes MD Primary Care Provider [phone] [facility], Pcp Primary Care Provider Unavailabl Deepthi Licona MD Primary Care Provider [phone] Manan Reinoso Primary Care Provider Unavailab Thea Graham PA-C Unavailable Unavailab Nasir Mullins MD Unavailable Trina Dc NP Unavailable Unavailab le Reason for Visit * Reason Onset Date Comments Provider Call Back 07/04/2016 Encounter Details Date Type Department Care Team Description 07/04/2016 Telephone Adult Medicine [address] [phone] Deepthi Mayes MD [address] [place] [address] [phone] Provider Call Back Social History Tobacco Use Types Packs/Day Years [...] Telephone Encounter - Miladys Ziegler M.A. - 07/04/2016 11:54 AM EDT Please sign, pt has allergic reaction to nuts. * Telephone Encounter - Radha Gloria - 07/04/2016 9:39 AM EDT Caller requesting call back from provider: Is the caller the patient? YES If caller is not the patient, what is the callers name? N/A Callers relationship to patient? N/A If person calling is not the patient themselves, is there a verbal release in FYI or permanent comments for this person: YES Reason for call back: Patient would like a script for Epi pen and would like it fax to [facility] in [place] Caller offered to speak with the nurse for assistance: YES Response: Patient offered to speak with nurse for assistance and patient agreed. Message forwarded to nurse. documented in this encounter Plan of Treatment Not on file documented as of this encounter Visit Diagnoses Not on filedocumented in this encounter Care Teams Chief I Dispatcher Relationship Specialty Start Date End Date Deepthi Mayes MD [address] [place] [address] PCP - General Internal Medicine 09/01/15 04/05/19 [facility], Pcp [address] [place] [address] PCP - General Internal Medicine 04/06/19 04/14/19 Deepthi Mayes MD [address] [place] [address]40 PCP - General Internal Medicine 04/15/19 11/22/20 Manan Reinoso [address] [place] [address]2566 PCP - General Internal Medicine 11/23/20 Thea Yoder PA-C [address] [place] [address] 15473 Cardiology 04/13/21 Nasir Fry MD [address] [place] [address] Mathematics Faculty Member Cardiovascular Disease 07/21/21 Trina Dc NP [address] [place] [address] Specialist Cardiology 07/21/21 documented as of this encounter
--- OUTSIDE RECORDS SUMMARY | 2025-08-11 08:46 | XMS_ITS | Encounter Summary ---
Author Organization [facility] Address [address] [place] [address] Care Team Providers Care Grid Operator Name Role Phone Manan Reinoso Primary Care Provider Thea Hernandez PA-C Unavailable Unavailab Nasir Mullins MD Unavailable Trina Dc NP Unavailable Unavailab le Encounter Details Date Type Department Care Team Description 02/25/2021 Hospital Medical Records [address] [place] [phone] Social History Tobacco Use Types Packs/Day Years [...] Name Priority Date/Time Associated Diagnosis Comments OUTSIDE LAB Routine 03/07/2021 OUTSIDE ECHO Routine 02/26/[address] Routine 02/26/[address] Routine 02/25/2021 OUTSIDE EKG Routine 02/24/2021 documented in this encounter Results * OUTSIDE LAB (03/07/2021) Provider Default LAB * OUTSIDE CT (02/26/2021) Provider Default RADIOLOGY * OUTSIDE ECHO (02/26/2021) Provider Default CARDIOLOGY * OUTSIDE CT (02/25/2021) Provider Default RADIOLOGY * OUTSIDE EKG (02/24/2021) Provider Default CARDIOLOGY documented in this encounter Visit Diagnoses Not on filedocumented in this encounter Care Teams Grid Operator Relationship Specialty Start Date End Date Manan Reinoso PCP - General Internal Medicine 11/23/20 Thea Yoder PA-C Cardiology 04/13/21 Nasir Fry MD Final Assembly Inspector Cardiovascular Disease 07/21/21 Trina Dc NP Specialist Cardiology 07/21/21 documented as of this encounter
--- OUTSIDE RECORDS SUMMARY | 2025-08-11 08:46 | XMS_ITS | Encounter Summary ---
Author Organization [facility] Address [address] [place] [address] Care Team Providers Care Fire Alarm Inspector Name Role Phone Manan Reinoso Primary Care Provider Unavailab Thea Graham PA-C Unavailable Unavailab le Nasir Fry MD Unavailable Trina Dc NP Unavailable Unavailab le Encounter Details Date Type Department Care Team Description 01/13/2021 Hospital Medical Records [address] [place] [id number] [place] [address] Social History Tobacco Use Types Packs/Day Years [...] on filedocumented in this encounter Care Teams Fire Alarm Inspector Relationship Specialty Start Date End Date Manan Reinoso PCP - General Internal Medicine 11/23/20 Thea Yoder PA-C Cardiology 04/13/21 Nasir Fry MD Ambulatory Care Nurse Cardiovascular Disease 07/21/21 Trina Dc NP Specialist Cardiology 07/21/21 documented as of this encounter
--- OUTSIDE RECORDS SUMMARY | 2025-08-11 08:46 | XMS_ITS | Encounter Summary ---
Author Organization [facility] Address [address] [place] [address] Care Team Providers Care Regional Marketing Manager Name Role Phone Deepthi Mayes MD Primary Care Provider [phone] Manan Reinoso Primary Care Provider Unavailab Thea Graham PA-C Unavailable Unavailab Nasir Mullins MD Unavailable Trina Dc NP Unavailable Unavailab le Encounter Details Date Type Department Care Team Description 05/13/2020 Hospital Medical Records [address] [place] [place] [address] Emerald Basilio PA-C Social History Tobacco Use Types Packs/Day Years [...] on filedocumented in this encounter Care Teams Regional Marketing Manager Relationship Specialty Start Date End Date Deepthi Mayes MD [address] [place], [place] [phone] PCP - General Internal Medicine 04/15/19 11/22/20 Manan Reinoso [address] [place] [address] PCP - General Internal Medicine 11/23/20 Thea Yoder PA-C [address] [place] [address]201 Cardiology 04/13/21 Nasir Fry MD [address] [place] [address] Auto Slip Cover Installer Cardiovascular Disease 07/21/21 Trina Dc NP [address] [place] [address] Specialist Cardiology 07/21/21 documented as of this encounter
--- OUTSIDE RECORDS SUMMARY | 2025-08-11 08:46 | XMS_ITS | Encounter Summary ---
Author Organization [facility] Address [address] [place] [address] Care Team Providers Care Consumer Services Consultant Name Role Phone Deepthi Mayes MD Primary Care Provider [phone] Count Includes [facility], Pcp Primary Care Provider UnavailDeepthi Salmon MD Primary Care Provider [phone] Manan Reinoso Primary Care Provider Unavailab Thea Graham PA-C Unavailable Unavailab Nasir Mullins MD Unavailable Trina Dc NP Unavailable Unavailab rere Encounter Details Date Type Department Care Team Description 09/17/2017 Release of Information Medical Records [address] [place] [address] Abstract, Provider Social History Tobacco Use Types [...] on filedocumented in this encounter Care Teams Consumer Services Consultant Relationship Specialty Start Date End Date Deepthi Mayes MD [address] [place] [address] PCP - General Internal Medicine 09/01/15 04/05/19 Count Includes [facility], Pcp [address] [place] [address] PCP - General Internal Medicine 04/06/19 04/14/19 Deepthi Mayes MD [address] [place] [address] PCP - General Internal Medicine 04/15/19 11/22/20 Manan Reinoso [address] [place], [place] [phone] PCP - General Internal Medicine 11/23/20 Thea Yoder PA-C [address] [place], [place] [phone] Cardiology 04/13/21 Nasir Fry MD [address] [place] [address] Offset Plate Maker Cardiovascular Disease 07/21/21 Trina Dc NP [address] [place], [place] [phone] Specialist Cardiology 07/21/21 documented as of this encounter
--- OUTSIDE RECORDS SUMMARY | 2025-08-11 08:46 | XMS_ITS | Encounter Summary ---
Author Organization [facility] Address [address] [place] [address] Care Team Providers Care Pharmaceutical Assistant Name Role Phone Deepthi Mayes MD Primary Care Provider [phone] Manan Reinoso Primary Care Provider Unavailab Thea Graham PA-C Unavailable Unavailab Nasir Mullins MD Unavailable Trina Dc NP Unavailable Unavailab le Encounter Details Date Type Department Care Team Description 04/25/2020 Hospital Medical Records [address] [place], [place] [phone] [facility] Social History Tobacco Use Types Packs/Day Years [...] on filedocumented in this encounter Care Teams Pharmaceutical Assistant Relationship Specialty Start Date End Date Deepthi Mayes MD [address] [place], [place] [phone] PCP - General Internal Medicine 04/15/19 11/22/20 Manan Reinoso [address] [place] [address] PCP - General Internal Medicine 11/23/20 Thea Yoder PA-C [address] [place], [place] [phone] Cardiology 04/13/21 Nasir Fry MD [address] [place] [address] High School History Teacher Cardiovascular Disease 07/21/21 Trina Dc NP [address] [place] [address] Specialist Cardiology 07/21/21 documented as of this encounter
--- OUTSIDE RECORDS SUMMARY | 2025-08-11 08:46 | XMS_ITS | Encounter Summary ---
Author Organization [facility] Address [address] [place] [address] Care Team Providers Care Environmental Compliance Inspector Name Role Phone Deepthi Mayes MD Primary Care Provider [phone] Manan Reinoso Primary Care Provider Unavailab Thea Graham PA-C Unavailable Unavailab Nasir Mullins MD Unavailable Trina Dc NP Unavailable Unavailab le Reason for Visit * Reason Comments E-prescribe Rx Request Encounter Details Date Type Department Care Team Description 01/09/2020 Refill Adult Medicine [address] [phone] Deepthi Mayes MD [address] [place] [address] [phone] E-prescribe Rx Request Social History Tobacco Use [...] encounter Miscellaneous Notes * Telephone Encounter - Velvet Brody - 01/11/2020 11:09 AM EDT Patient would like script to be: E-PRESCRIBED/FAXED TO PHARMACY WHEN WAS THE PATIENT'S LAST APPOINTMENT IN ADULT MEDICINE? 01-11-20 WHEN WAS THE LAST TIME THE PATIENT SAW THEIR PCP? 02-23-19 Does patient have an upcoming appointment? No-patient refused appointment, will call back to book appointment (THE MEDICATION REQUESTED IS ON THE MED [...] N/A Patients current insurance carrier is: Payor: [email or web address] / [place] / Product Type: MEDICARE [id number] documented in this encounter Plan of Treatment Not on file documented as of this encounter Visit Diagnoses Not on filedocumented in this encounter Care Teams Environmental Compliance Inspector Relationship Specialty Start Date End Date Deepthi Mayes MD [address] [place] [address] PCP - General Internal Medicine 04/15/19 11/22/20 Manan Reinoso [address] [place] [address] PCP - General Internal Medicine 11/23/20 Thea Yoder PA-C [address] [place] [address] Cardiology 04/13/21 Nasir Fry MD [address] [place] [address] Shoe Cleaner Cardiovascular Disease 07/21/21 Trina Dc NP [address] [phone] Specialist Cardiology 07/21/21 documented as of this encounter
--- OUTSIDE RECORDS SUMMARY | 2025-08-11 08:46 | XMS_ITS | Encounter Summary ---
Author Organization [facility] Address [address] [place] [address] Care Team Providers Care Linoleum Installer Name Role Phone Deepthi Mayes MD Primary Care Provider [phone] Manan Reinoso Primary Care Provider Unavailab Thea Graham PA-C Unavailable Unavailab Nasir Mullins MD Unavailable Trina Dc NP Unavailable Unavailab le Encounter Details Date Type Department Care Team Description 01/26/2020 District Scout Executive Report Medical Records [address] [place] [address] Kirby Tom MD Social History Tobacco Use Types Packs/Day [...] on filedocumented in this encounter Care Teams Linoleum Installer Relationship Specialty Start Date End Date Deepthi Mayes MD [address] [place], [place] [phone] PCP - General Internal Medicine 04/15/19 11/22/20 Manan Reinoso [address] [place] [address] PCP - General Internal Medicine 11/23/20 Thea Yoder PA-C [address] [place] [address] Cardiology 04/13/21 Nasir Fry MD [address] [place] [address] Electronic Maintenance Supervisor Cardiovascular Disease 07/21/21 Trina Dc NP [address] [place] [address] Specialist Cardiology 07/21/21 documented as of this encounter
--- OUTSIDE RECORDS SUMMARY | 2025-08-11 08:46 | XMS_ITS | Encounter Summary ---
Author Organization [facility] Address [address] [place] [address] Care Team Providers Care Special Education Instructor Name Role Phone Deepthi Mayes MD Primary Care Provider [phone] Manan Reinoso Primary Care Provider Unavailab Thea Graham PA-C Unavailable Unavailab Nasir Mullins MD Unavailable Trina Dc NP Unavailable Unavailab le Reason for Visit * Reason Onset Date Comments Information Needed 04/15/2019 Medication 04/15/2019 Encounter Details Date Type Department Care Team Description 04/15/2019 Telephone Adult Medicine [address] [phone] Deepthi Mayes MD [address] [place] [address] [phone] Information Needed; Medication Social History Tobacco Use Types Packs/Day Years [...] encounter Miscellaneous Notes * Telephone Encounter - Aaliyah Montemayor R.N. - 04/15/2019 3:50 PM EDT Jim does not need assistance , she is all set * Telephone Encounter - Julia Nasciemnto M.A. - 04/15/2019 3:38 PM EDT Please triage pt may need hosp fu appt * Telephone Encounter - Rosy Joseph - 04/15/2019 3:33 PM EDT Information Needed Who is calling: Other [facility] Information being requested? Jim calling for medication that was prescribed for wound care. She would like a call back regarding this. If information is regarding a referral and notes are needed- transfer call to HIM department If other information is needed, was an QUINN signed? NO How is the information to be communicated back to the caller? Called in to [phone] documented in this encounter Plan of Treatment Not on file documented as of this encounter Visit Diagnoses Not on filedocumented in this encounter Care Teams Special Education Instructor Relationship Specialty Start Date End Date Deepthi Mayes MD [address] [place] [address] PCP - General Internal Medicine 04/15/19 11/22/20 Manan Reinoso [address] [place] [address] PCP - General Internal Medicine 11/23/20 Thea Yoder PA-C [address] [place] [address]121 Cardiology 04/13/21 Nasir Fry MD [address] [place], [place] [phone] Starch And Prosize Mixer Cardiovascular Disease 07/21/21 Trina Dc NP [address] [place] [address] Specialist Cardiology 07/21/21 documented as of this encounter
--- OUTSIDE RECORDS SUMMARY | 2025-08-11 08:46 | XMS_ITS ---
Care Plan Created on: August 11, 2025 Kirby Christianson : 1950 Sex: Male Author Organization [facility] Address [address] [place] [address] Phone Care Team Providers Care Progressive Care Manager Name Role Phone Pollo Thurston MD Primary Care Provider [phone] Active Problems Problem Noted Date Diagnosed Date Osteomyelitis of right foot ([facility] V24, [facility] V28) 06/02/2025 Type 2 diabetes mellitus wit h foot ulcer (CODE) ([facility] V24, [facility] V28) 03/03/2025 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 right foot with fat layer exposed ([facility] V24, [facility] V28) 03/03/2025 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 right lower leg with fat layer exposed ([facility] V24, [facility] V28) 08/04/2024 Diabetes mellitus due to und erlying condition with diabetic autonomic neuropathy ([facility] V24, [facility] V28) 08/04/2024 Corns and callosities 08/04/2024 Chronic venous hypertension (idiopathic) with ulcer and inflammation of right lower extremity ([facility] V24, [facility] V28) 08/04/2024 History of colon polyps 11/19/2023 Overview (11/19/2023): 10/20/2015 Dyspnea on exertion 09/27/2021 Cerebrovascular accident (CVA) ([facility] V24, [facility] V28) 04/13/2021 Overview (11/19/2023): Last [...] Doxazosin was decreased as well Pulmonary embolism ([facility] V24, [facility] V28) Osteomyelitis of toe of righ t foot ([facility] [place]24, [facility] V28) 06/04/2019 CKD (chronic kidney disease) stage 3, GFR 30-59 ml/min ([facility] V24, [facility] V28) 04/08/2019 Microalbuminuria 04/08/2019 Chronic back pain 11/03/2018 Coronary artery disease invo lving [place] coronary artery of [place] heart without angina pectoris 10/01/2017 Overview (11/19/2023): Last Assessment & Plan: No ischemic or heart failure symptoms. 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 Background diabetic retinopathy ([facility] V24, [facility] V28) 10/20/2015 Depressive disorder 10/20/2015 Diabetic neuropathy ([facility] V24, [facility] V28) 0 10/20/2015 DM (diabetes mellitus), type 2 with ophthalmic complications ([facility] V24, [facility] V28) 10/20/2015 Type 2 diabetes mellitus wit h neurological manifestations ([facility] V24, [facility] V28) 10/20/2015 Diverticulosis 10/20/2015 Overview [...] 2 diabetes mellitus wit h renal manifestations ([facility] V24, [facility] V28) 10/07/2015 Additional Health Concerns Active Problems [...]
--- OUTSIDE RECORDS SUMMARY | 2025-08-11 08:46 | XMS_ITS | Encounter Summary ---
Author Organization [facility] Address [address] [place] [address] Care Team Providers Care Crematory Operator Name Role Phone Manan Reinoso Primary Care Provider Unavailab Thea Graham PA-C Unavailable Unavailab le Nasir Fry MD Unavailable Trina Dc NP Unavailable Unavailab le Encounter Details Date Type Department Care Team Description 05/09/2021 Student Life Coordinator Report Medical Records [address] [place] [id number] Abstract, Provider Social History Tobacco Use Types [...] on filedocumented in this encounter Care Teams Crematory Operator Relationship Specialty Start Date End Date Manan Reinoso PCP - General Internal Medicine 11/23/20 Thea Yoder PA-C Cardiology 04/13/21 Nasir Fry MD Molding Technician Cardiovascular Disease 07/21/21 Trina Dc NP Specialist Cardiology 07/21/21 documented as of this encounter
--- OUTSIDE RECORDS SUMMARY | 2025-08-11 08:46 | XMS_ITS | Encounter Summary ---
Author Organization [facility] Address [address] [place] [address] Care Team Providers Care Door To Door Fundraising Collector Name Role Phone Deepthi Mayes MD Primary Care Provider [phone] [facility], Pcp Primary Care Provider UnavailDeepthi Salmon MD Primary Care Provider [phone] Manan Reinoso Primary Care Provider Unavailab Thea Graham PA-C Unavailable Unavailab Nasir Mullins MD Unavailable Trina Dc NP Unavailable Unavailab rere Encounter Details Date Type Department Care Team Description 04/15/2018 Transfer Records Medical Records [address] [place] [id number] Abstract, Provider Social History Tobacco Use Types [...] on filedocumented in this encounter Care Teams Door To Door Fundraising Collector Relationship Specialty Start Date End Date Deepthi Mayes MD [address] [place] [address] PCP - General Internal Medicine 09/01/15 04/05/19 [facility], Pcp [address] [place] [address] PCP - General Internal Medicine 04/06/19 04/14/19 Deepthi Mayes MD [address] [place] [address]34 PCP - General Internal Medicine 04/15/19 11/22/20 Manan Reinoos [address] [place] [address]98 PCP - General Internal Medicine 11/23/20 Thea Yoder PA-C [address] [place] [address] 25712 Cardiology 04/13/21 Nasir Fry MD [address] [place] [address] 88324 Plant Care Worker Cardiovascular Disease 07/21/21 Trina Dc NP [address] [place] [address] Specialist Cardiology 07/21/21 documented as of this encounter
--- OUTSIDE RECORDS SUMMARY | 2025-08-11 08:46 | XMS_ITS | Encounter Summary ---
Author Organization [facility] Address [address] [place] [address] Care Team Providers Care Cryptologic Support Specialist Name Role Phone Deepthi Mayes MD Primary Care Provider [phone] [facility], Pcp Primary Care Provider UnavailDeepthi Salmon MD Primary Care Provider [phone] Manan Reinoso Primary Care Provider Unavailab Thea Graham PA-C Unavailable Unavailab Nasir Mullins MD Unavailable Trina Dc NP Unavailable Unavailab rere Encounter Details Date Type Department Care Team Description 07/06/2016 Transfer Records Medical Records [address] [place] [address] Sammy Bellamy DO Social History Tobacco Use Types Packs/Day [...] on filedocumented in this encounter Care Teams Cryptologic Support Specialist Relationship Specialty Start Date End Date Deepthi Mayes MD [address] [place] [address] PCP - General Internal Medicine 09/01/15 04/05/19 [facility], Pcp [address] [place], [place] [phone] PCP - General Internal Medicine 04/06/19 04/14/19 Deepthi Mayes MD [address] [place] [address] PCP - General Internal Medicine 04/15/19 11/22/20 Manan Reinoso [address] [place], [place] [phone] PCP - General Internal Medicine 11/23/20 Thea Yoder PA-C [address] [place], [place] [phone] Cardiology 04/13/21 Nasir Fry MD [address] [place] [address] Hot Shot Cardiovascular Disease 07/21/21 Trina Dc NP [address] [place], [place] [phone] Specialist Cardiology 07/21/21 documented as of this encounter
--- OUTSIDE RECORDS SUMMARY | 2025-08-11 08:46 | XMS_ITS | Encounter Summary ---
Author Organization [facility] Address [address] [place] [address] Care Team Providers Care Integrated Circuit Design Engineer Name Role Phone Deepthi Mayes MD Primary Care Provider [phone] [facility]cp Primary Care Provider UnavailDeepthi Salmon MD Primary Care Provider [phone] Manan Reinoso Primary Care Provider Unavailab Thea Graham PA-C Unavailable Unavailab Nasir Mullins MD Unavailable Trina Dc NP Unavailable Unavailab rere Encounter Details Date Type Department Care Team Description 04/12/2017 Release of Information Medical Records [address] [place] [address] Abstract, Provider Social History Tobacco Use Types [...] on filedocumented in this encounter Care Teams Integrated Circuit Design Engineer Relationship Specialty Start Date End Date Deepthi Mayes MD [address] [place] [address] PCP - General Internal Medicine 09/01/15 04/05/19 [facility] [address] [place] [address] 10836 PCP - General Internal Medicine 04/06/19 04/14/19 Deepthi Mayes MD [address] [place] [address] 6[address] PCP - General Internal Medicine 04/15/19 11/22/20 Manan Reinoso [address] [place], [place] [phone] PCP - General Internal Medicine 11/23/20 Thea Yoder PA-C [address] [place], [place] [phone] Cardiology 04/13/21 Nasir Fry MD [address] [place] [address] Bookmobile Librarian Cardiovascular Disease 07/21/21 Trina Dc NP [address] [place], [place] [phone] Specialist Cardiology 07/21/21 documented as of this encounter
--- OUTSIDE RECORDS SUMMARY | 2025-08-11 08:46 | XMS_ITS | Encounter Summary ---
Author Organization [facility] Address [address] [place] [address] Care Team Providers Care Web Press Operator Apprentice Name Role Phone Manan Reinoso Primary Care Provider Unavailab Thea Graham PA-C Unavailable Unavailab Nasir Mullins MD Unavailable Trina Dc NP Unavailable Unavailab le Reason for Visit * Reason Onset Date Comments other 03/10/2021 HR Encounter Details Date Type Department Care Team Description 03/10/2021 Telephone Cardio PVCA Diag Testing [address] [facility] [address] [place] [address] [phone] Nasir Fry MD [address] [place] [address] [phone] other (HR) Social History Tobacco Use Types Packs/Day Years [...] Telephone Encounter - Nasir Fry MD - 03/12/2021 9:59 AM EDT THANKS * Telephone Encounter - Andrei Gaytan - 03/10/2021 5:01 PM EDT Noted, thanks. * Telephone Encounter - LAVON Lanier - 03/10/2021 4:40 PM EDT I think as long as the patient is stable there is not much to do at this time. I can set him up fora Holter to make sure his not having any A. fib. Thanks. Mark?? * Telephone Encounter - Andrei Gaytan - 03/10/2021 2:34 PM EDT TANISHA/Dr Fry, spoke to [facility]NA who states that she listened to pt's heart and palpated pulse at wrist.States she could hear/feel some irregularity that came and went. States she could not ascertain a pattern, but definitely felt like pt was having skipped beats, about 4-5/minute. States pt denied anysymptoms now or recently, no overt med/diet changes that [facility]NA is aware of. States she is unsure whatwe want to do about this, but wanted to bring it to our attention as it is a new finding to them/for this pt to their knowledge. Pt has f/u booked with [facility] for 04/13/21. Thanks. * Telephone Encounter - Trinity Jimenez - 03/10/2021 2:05 PM EDT 03/10/21: JACINTO Jarvis stated that pt said he had an irregular heartbeat. Matheus checked pt's HR and itis 88. Pt has no breathing issues going on, no dizziness, and no palps. Jo can be reached at [phone]. documented in this encounter Plan of Treatment Scheduled Orders Name Type Priority Associated Diagnoses Orde r Schedule ECG HOLTER MONITOR, REVIEW/INTERP Cardiology Routine Irregular heart beat Expected: 03/10/2021, Expires: 03/10/2022 documented as of this encounter Visit Diagnoses Diagnosis Irregular heart beat- Primary Cardiac dysrhythmia, unspecified documented in this encounter Care Teams Web Press Operator Apprentice Relationship Specialty Start Date End Date Manan Reinoso PCP - General Internal Medicine 11/23/20 Thea Yoder PA-C Cardiology 04/13/21 Nasir Fry MD Cotton Picking Machine Operator Cardiovascular Disease 07/21/21 Trina Dc NP Specialist Cardiology 07/21/21 documented as of this encounter
--- OUTSIDE RECORDS SUMMARY | 2025-08-11 08:46 | XMS_ITS | Encounter Summary ---
Author Organization [facility] Address [address] [place] [address] Care Team Providers Care Packaging Mechanic Name Role Phone Deepthi Mayes MD Primary Care Provider [facility], Pcp Primary Care Provider Unavailabl Deepthi Licona MD Primary Care Provider [phone] Manan Reinoso Primary Care Provider Unavailab Thea Graham PA-C Unavailable Unavailab Nasir Mullins MD Unavailable Trina Dc NP Unavailable Unavailab rere Encounter Details Date Type Department Care Team Description 04/12/2017 Railroad Crossing Protection Maintainer Report Medical Records [address] [place] [address]116 Michael Medina PA-C Social History Tobacco Use Types Packs/Day [...] on filedocumented in this encounter Care Teams Packaging Mechanic Relationship Specialty Start Date End Date Deepthi Mayes MD [address] [place] [address] PCP - General Internal Medicine 09/01/15 04/05/19 [facility], Pcp [address] [place] [address] 16700 PCP - General Internal Medicine 04/06/19 04/14/19 Deepthi Mayes MD [address] [place] [address] 09009 PCP - General Internal Medicine 04/15/19 11/22/20 Manan Reinoso [address] [place], [place] [phone] PCP - General Internal Medicine 11/23/20 Thea Yoder PA-C [address] [place], [place] [phone] Cardiology 04/13/21 Nasir Fry MD [address] [place] [address] Automobile Travel Club Counselor Cardiovascular Disease 07/21/21 Trina Dc NP [address] [place], [place] [phone] Specialist Cardiology 07/21/21 documented as of this encounter
--- OUTSIDE RECORDS SUMMARY | 2025-08-11 08:46 | XMS_ITS | Encounter Summary ---
Author Organization [facility] Address [address] [place] [address] Care Team Providers Care Trimmer Helper Name Role Phone Deepthi Mayes MD Primary Care Provider [phone] [facility], Pcp Primary Care Provider Unavailabl e Deepthi Mayes MD Primary Care Provider [phone] Manan Reinoso Primary Care Provider Unavailab Thea Graham PA-C Unavailable Unavailab Nasir Mullins MD Unavailable Trina Dc NP Unavailable Unavailab le Reason for Visit * Reason Onset Date Comments APPOINTMENT 09/01/2015 Encounter Details Date Type Department Care Team Description 09/01/2015 Telephone Adult Medicine [address] [phone] Deepthi Mayes MD [address] [place] [address] [phone] APPOINTMENT Social History Tobacco Use Types Packs/Day Years Used Date Smoking Tobacco: Never Assessed Sex Assigned at Date Recorded Not on file Job Start Date Occupation Industry Not on file Not on file Not on file documented as of this encounter Miscellaneous Notes * Telephone Encounter - Aaliyah Montemayor R.N. - 09/01/2015 12:28 PM EST Pt booked for 10/07 at 2;[address]es * Telephone Encounter - Johan Whitley - 09/01/2015 11:57 AM EST Patient is new, has not been here since [address]. W[address] Mayes as a primary and is on 8+ medications a day. I have no openings till December. Can you help with an earlier appointment. documented in this encounter Plan of Treatment Not on file documented as of this encounter Visit Diagnoses Not on filedocumented in this encounter Care Teams Trimmer Helper Relationship Specialty Start Date End Date Deepthi Mayes MD [address] [place] [address] PCP - General Internal Medicine 09/01/15 04/05/19 [facility], Pcp [address] [place] [address] 13548 PCP - General Internal Medicine 04/06/19 04/14/19 Deepthi Mayes MD [address] [place] [address] 93262 PCP - General Internal Medicine 04/15/19 11/22/20 Manan Reinoso [address] [place] [address] 37300 PCP - General Internal Medicine 11/23/20 Thea Yoder PA-C [address] [place] [address] 53241 Cardiology 04/13/21 Nasir Fry MD [address] [place] [address] 19554 Geriatric Social Work Professor Cardiovascular Disease 07/21/21 Trina Dc NP [address] [place] [address] 43955 Specialist Cardiology 07/21/21 documented as of this encounter
== END 2025-08-11 08:25 | disposition home or self-care (01) ==
LOC: HO.HMGCX 08:24
PROVIDERS: PCP Physician Assistant Medical; Visit Provider Nurse Practitioner Family
DX: M54.50 Low back pain, unspecified (principal); G89.4 Chronic pain syndrome; M96.1 Postlaminectomy syndrome, not elsewhere classified
CPT/HCPCS: 72110

== ENCOUNTER → 2025-08-11 08:38 | Outpatient (BNV) | payer MEDICARE, SELFPAY | PROVIDERS: PCP Physician Assistant Medical; Visit Provider Radiology Diagnostic Ultrasound | DX: M54.50 Low back pain, unspecified (principal); Z98.1 Arthrodesis status | CPT/HCPCS: 72110 ==